=== PATIENT | female | born 1960 | race Caucasian/White ===

== ENCOUNTER 2017-03-12 11:19 | Inpatient (IN) | payer OTHER ==
[2017-03-12] VITALS (8 sets, daily range): BP systolic 131–158; BP diastolic 84–92; PULSE 96–109; TEMP 36.8–37.5; O2SAT 99–100; Ht 162.6 cm; Wt 84.0 kg
[~2017-03-12] VITALS: Ht 162.6 cm; Wt 84.0 kg
[~2017-03-12 11:19] MED LIST: ACP20 PO; AMIT75TA2 PO; ASPCH81X PO; ASTN; EPP3 IM; ERGO1CAP35 PO; FERR-24 PO; FEXO1TAB46 PO; HOME O2; IPRA1AER2 INH; LEVA1.25 INH; LEVO100T PO; MOME200A INH; MONT1TAB3 PO; MULTTAB58 PO; NPR375 PO; NSNN50 NAE; PRED20TA PO; RANI300T2 PO; ROPI1TAB PO; SUCR1TAB29 PO; TAPE100T2 PO; TOPI25TA99 PO; UMEC1INH INH; VRP40 PO; ZFRODT4 SL; [UNRECOGNIZED DRUG - CODE] PO
[2017-03-12] MEDS ORDERED: SODIUM CHLORIDE 0.9% 1000ML 1,000 ML IV STA (11:55)
[2017-03-12 12:14] LABS: ISTAT CREATININE 3.9 mg/dl (0.6-1.3); ISTAT HEMOGLOBIN 8.8 g/dl (12.0-16.0); ISTAT IONIZED CALCIUM 1.21 mmol/l (1.12-1.32)
[2017-03-12] MEDS ORDERED: OPTIRAY 320 IV PRN (12:15)
[2017-03-12 12:34] LABS: ALKALINE PHOSPHATASE 254 U/L (45-117); ALT/SGPT 43 U/L (12-78); AST/SGOT 40 U/L (15-37); BLOOD UREA NITROGEN 95 mg/dl (7-18); BUN/CREATININE RATIO 24.9 (10-20); CALCIUM 8.8 mg/dl (8.5-10.1); CARBON DIOXIDE 22 mmol/L (21-32); CHLORIDE 103 mmol/L (98-107); GLUCOSE 83 mg/dl (70-99); POTASSIUM 5.1 mmol/L (3.5-5.1); SODIUM 132 mmol/L (136-145)
[2017-03-12] MEDS ORDERED: HYDROmorphone INJ 0.5 MG/0.5 ML SYR IV STA (12:35)
[2017-03-12] MEDS ORDERED: METOCLOPRAMIDE HCL INJ 5 MG/ML 2 ML VIAL IV STA (12:35)
[2017-03-12 12:40] LABS: HEMATOCRIT 29.3 % (37-47); MEAN CELL VOLUME 88.3 fL (80-100); MEAN CORPUSCULAR HEMOGLOBIN 30.7 pg (25-34); MEAN CORPUSCULAR HGB CONC 34.8 g/dl (32-36); PLATELET COUNT 42 K/uL (130-400); RED BLOOD COUNT 3.32 M/uL (4.2-5.4); WHITE BLOOD COUNT 15.37 K/uL (4.8-10.8)
[2017-03-12 12:41] LABS: URINE APPEARANCE CLOUDY (CLEAR); URINE COLOR ORANGE; URINE EPITHELIAL CELL AUTO >30 /lpf (0-5); URINE NITRITE NEG (NEG); URINE SPECIFIC GRAVITY 1.025 (1.000-1.030); UROBILINOGEN NEG (NEG)
[2017-03-12 12:50] LABS: BASO % 0.3 %; BASO ABS # 0.04 K/uL (0-0.2); COMPLETE YES; EOS % 0.5 %; IG% 2.1 %; LYMPH % 12.8 %; LYMPH ABS # 1.97 K/uL (1.2-3.4); MONO % 10.8 %; NEUT % 73.5 %; PLT ESTIMATE DECREASED; POLYCHROMASIA 1+; SCHISTOCYTES 1+; TOXIC GRANULATION 2+
--- NOTE | 2017-03-12 12:55 | EMERGENCY ROOM VISIT NOTE ---
History Report prepared by Bernard: Gloria Proctor Under the Supervision of: Dr. Claudio Huff M.D. First contact with patient: 11:41 Chief Complaint: RECTAL BLEEDING Stated Complaint: GI ASSESSMENT Nursing Triage Summary: Pt with 2 week HX of dark rd stools, started with sharp mid abd pain 2 days ago , hx of anemia, Pt A/Ox3, lungs CTA. abd soft, positive BS, positve pulses History of Present Illness The patient is a 56 year old female who presents to the Emergency Room with complaints of intermittent rectal bleeding for the past 2 weeks. The patient has been having dark red stools and diarrhea for the past two weeks. Over the last 24 hours she developed sharp pain in her abdomen that is worse in the RLQ. She has a history of anemia. Source of History: patient Onset: 2 weeks ago Position: other (rectum) Quality: other (bleeding) Timing: intermittent Associated Symptoms: + abdominal pain, + diarrhea Review of Systems See HPI for pertinent positives & negatives. A total of 10 systems reviewed and were otherwise negative. Past Medical & Surgical Medical Problems: (1) Asthma (2) Celiac disease (3) Chronic back pain (4) Chronic Pancreatitis (5) Colitis (6) Depression (7) Depressive Disorder Nec (8) Fracture of foot (9) Gastroesophageal reflux disease (10) History of - pneumonia (11) Hypokalemia (12) Hyponatremia (13) Hypothyroidism (14) Lumbago (15) Lumbar Disc Displacement (16) Lumbosacral Neuritis Nos (17) Methicillin resistant Staphylococcus aureus infection (18) Moderate chronic obstructive pulmonary disease (19) Rectal hemorrhage (20) Syncope Family History No pertinent history stated. Social History Smoking Status: Never Smoker Alcohol Use: none Drug Use: none Marital Status: Occupation Status: other Current/Historical Medications Scheduled Amitriptyline Hcl (Elavil), 75 MG PO HS Aspirin (Aspirin Chewable), 81 MG PO HS Azelastine Hcl (Astelin Nasal [place]), 1 SPRAYS NA BID Epinephrine (Epipen *), 0.3 MG IM UD Ergocalciferol (Vitamin D Cap), 50,000 INTER.UNIT PO 2XWK Ferrous Sulfate (Fe Tabs), 325 MG PO QID Fexofenadine Hcl (Yuliya), 180 MG PO HS Hyoscyamine Sulfate (Hyoscyamine Sulfate Sr), 1 TAB PO Q6H Levothyroxine Sodium (Synthroid), 100 MCG PO QAM Mometasone Furoate (Nasal) (Nasonex), 2 SPRAYS JACKLYN BID Montelukast Sodium (Singulair), 10 MG PO HS Multiple Vitamin (Multivitamin), 1 TAB PO QAM Naproxen Tab (Naprosyn), 375 MG PO BID Rabeprazole Sodium (Aciphex *), 40 MG PO BID Ranitidine Hcl (Zantac), 300 MG PO BID Ropinirole Hydrochloride (Requip), 1.5 MG PO HS Sucralfate (Carafate), 1 GM PO QID Topiramate (Topamax ), 100 MG PO BID Umeclidinium [place] (Incruse Ellipta), 1 PUFF INH BID Verapamil (Calan), 40 MG PO BID [Home O2], 2 LITERS NA HS Scheduled PRN Ipratropium-Albuterol (Combivent Respimat), 1 PUFFS INH QID PRN for Shortness of Breath Levalbuterol Soln (Xopenex 1.25MG/3ML), 1.25 MG INH Q8 PRN for SOB/Wheezing Mometasone Furoate-Formoterol (Dulera 200/5 Mcg), 2 AER INH for BID Ondansetron (Zofran Odt *), 4 MG SL Q8H PRN for Nausea Prednisone (Prednisone), 20 MG PO UD PRN for ASTHMA RESCUE KIT Tapentadol Hcl (Nucynta), 100 MG PO Q6H PRN for Headache Allergies Coded Allergies: BEE STING (Verified Allergy, Severe, ANAPHYLAXIS, 03/12/17) Was allergic to earlier IV iron compounds but is currently receiving IV Iron at [facility] Cefaclor (Verified Allergy, Severe, CECLOR - SOB;RASH; UPSET STOMACH, ) Coconut (Verified Allergy, Severe, RASH; SOB, 03/12/17) Iron (Verified Allergy, Severe, SOB,TACHY WITH IV IRON, 03/12/17) Latex (Verified Allergy, Severe, SOB;RASH;BEET RED SKIN; ANAPHYLAXIS, ) Penicillins (Verified Allergy, Severe, SOB;RASH; TONGUE SWELLING; ANAPHYLAXIS, 03/12/17) Sulfa Drugs (Verified Allergy, Severe, SOB;RASH; ANAPHYLAXIS, 03/12/17) Tetracycline (Verified Allergy, Severe, SOB;RASH; N/V, 03/12/17) Lactose (Verified Allergy, Mild, RASH; BLOATING; DIARRHEA; VOMITING, ) Egg (Verified Allergy, Unknown, RASH, 03/12/17) Influenza Vaccine Live (Verified Allergy, Unknown, __, 03/12/17) Quinolones (Verified Allergy, Unknown, ALLERGY TO [place] ,CAN TAKE CIPRO OR LEVAQUIN W/O RXN, 03/12/17) Gluten (Verified Adverse Reaction, Unknown, CELIAC'S, 03/12/17) Physical Exam Vital Signs Date Time Temp Pulse Resp B/P (MAP) Pulse Ox O2 Delivery O2 Flow Rate FiO2 03/12/17 15:03 107 18 126/87 97 Room Air 03/12/17 13:47 100 18 128/87 99 Room Air 03/12/17 12:36 107 18 117/86 100 Room Air 03/12/17 12:05 107 03/12/17 12:03 97 Room Air 03/12/17 12:01 98 Room Air 03/12/17 11:43 37.0 111 18 129/94 100 Room Air Physical Exam GENERAL: Patient is a healthy-appearing well-nourished 56 year old female. HEAD: Normocephalic atraumatic EYES: Ocular movements intact pupils equal and react to light OROPHARYNX mucous membranes are moist no exudates present no erythema or edema present NECK: Supple no nuchal rigidity CHEST: Good equal expansion LUNGS: Clear and equal to auscultation CARDIAC: Normal S1 and S2 ABDOMEN: Soft, tenderness in RLQ, no guarding RECTAL: Heme positive BACK: No CVA tenderness EXTREMITIES: No pain upon palpation normal muscle strength in all groups no clubbing cyanosis or edema NEURO: Patient is following commands and answering questions appropriately. Alert and oriented x3 Cranial Nerves 2-12 grossly intact Medical Decision & Procedures ER Provider Diagnostic Interpretation: Radiology results as stated below per my review and radiologist interpretation: CT SCAN OF THE ABDOMEN AND PELVIS WITHOUT CONTRAST CLINICAL HISTORY: Right lower quadrant pain. Bloody stools. Anemia. Acute renal failure. COMPARISON STUDY: January 2008 TECHNIQUE: CT scan of the abdomen and pelvis was performed from the lung bases to the proximal femurs. Images are reviewed in the axial, sagittal, and coronal planes. IV contrast was not administered for this examination. A dose lowering technique was utilized adhering to the principles of ALARA. CT DOSE: 936.36 mGycm FINDINGS: Lower chest: There is mild dilatation of the ascending thoracic aorta which measures 38 mm. There is a small right pleural effusion. Liver: The unenhanced liver is normal in size, contour, and attenuation. There is no intrahepatic biliary ductal dilatation. Gallbladder: Surgically absent. The common bile duct measures 8 mm. Spleen: Mildly enlarged measuring 12.5 cm Pancreas: Unremarkable. Adrenal glands: There is a 19 mm left adrenal adenoma. Kidneys: No renal, ureteral, or bladder calculi are visualized. There is a dilated left-sided extrarenal pelvis. There is no ureteral dilatation. Bowel: There are no transition zones to indicate bowel obstruction. There is extensive colonic wall thickening most pronounced within the ascending colon. There is infiltration of the fat surrounding the ascending colon. There is mild dilatation of the appendix but this may be a secondary phenomenon. Peritoneum: There is a small amount of free pelvic fluid. No free intraperitoneal air is visualized. Vasculature: The abdominal aorta is normal in course and caliber. Adenopathy: There are prominent ileocolic lymph nodes, likely reactive. Pelvic viscera: The uterus appears surgically absent. Skeletal structures: There are endplate erosive changes at the L4-5 level, likely on a discogenic basis IMPRESSION: 1. Extensive right-sided colonic wall thickening with infiltration of the pericolonic fat. There are additional areas of less pronounced colonic wall thickening. The findings are indicative of a severe nonspecific colitis. 2. Mild left-sided hydronephrosis with a dilated left-sided extrarenal pelvis. There is no ureteral dilatation. 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 19 mm left adrenal adenoma 4. Prominent ileocolic lymph nodes likely reactive 5. Small right pleural effusion 6. No evidence of bowel obstruction Electronically signed by: Shaheed Orozco M.D. 03/12/2017 1:37 PM Dictated Date/Time: 03/12/2017 1:25 PM Laboratory Results 03/12/17 11:23 Red Blood Count 3.32, Mean Corpuscular Volume 88.3, Mean Corpuscular Hemoglobin 30.7, Mean Corpuscular Hemoglobin Concent 34.8, Mean Platelet Volume , Neutrophils (%) (Auto) 73.5, Lymphocytes (%) (Auto) 12.8, Monocytes (%) (Auto) 10.8, Eosinophils (%) (Auto) 0.5, Basophils (%) (Auto) 0.3, Neutrophils # (Auto ) 11.31, Lymphocytes # (Auto) 1.97, Monocytes # (Auto) 1.66, Eosinophils # (Auto ) 0.07, Basophils # (Auto) 0.04 03/12/17 11:23 Test 03/12/17 11:23 03/12/17 12:01 03/12/17 12:17 03/12/17 13:02 White Blood Count 15.37 K/uL (4.8-10.8) Red Blood Count 3.32 M/uL (4.2-5.4) Hemoglobin 10.2 g/dL (12.0-16.0) Hematocrit 29.3 % (37-47) Mean Corpuscular Volume 88.3 fL (80-100) Mean Corpuscular Hemoglobin 30.7 pg (25-34) Mean Corpuscular Hemoglobin Concent 34.8 g/dl (32-36) Platelet Count 42 K/uL (130-400) Mean Platelet Volume fL (7.4-10.4) Neutrophils (%) (Auto) 73.5 % Lymphocytes (%) (Auto) 12.8 % Monocytes (%) (Auto) 10.8 % Eosinophils (%) (Auto) 0.5 % Basophils (%) (Auto) 0.3 % Neutrophils # (Auto) 11.31 K/uL (1.4-6.5) Lymphocytes # (Auto) 1.97 K/uL (1.2-3.4) Monocytes # (Auto) 1.66 K/uL (0.11-0.59) Eosinophils # (Auto) 0.07 K/uL (0-0.5) Basophils # (Auto) 0.04 K/uL (0-0.2) RDW Standard Deviation 53.1 fL (36.4-46.3) RDW Coefficient of Variation 16.5 % (11.5-14.5) Immature Granulocyte % (Auto) 2.1 % Immature Granulocyte # (Auto) 0.32 K/uL (0.00-0.02) Nucleated RBC Absolute Count (auto) 0.27 K/uL (0-0) Nucleated Red Blood Cells % 1.7 % Toxic Granulation 2+ Platelet Estimate DECREASED Polychromasia 1+ Schistocytes 1+ Est Creatinine Clear Calc Drug Dose 16.7 ml/min Estimated GFR () 14.6 Estimated GFR (Non- 12.6 BUN/Creatinine Ratio 24.9 (10-20) Calcium Level 8.8 mg/dl (8.5-10.1) Total Bilirubin 0.7 mg/dl (0.2-1) Direct Bilirubin mg/dl (0-0.2) Aspartate Amino Transf (AST/SGOT) 40 U/L (15-37) Alanine Aminotransferase (ALT/SGPT) 43 U/L (12-78) Alkaline Phosphatase 254 U/L (45-117) Total Protein 5.7 gm/dl (6.4-8.2) Albumin 1.5 gm/dl (3.4-5.0) Lipase 341 U/L (73-393) Chemistry Specimen Hemolysis Bedside Hemoglobin 8.8 g/dl (12.0-16.0) Bedside Hematocrit 26 % (37-47) Bedside Sodium 132 mEq/L (135-144) Bedside Potassium 4.9 mEq/L (3.3-5.0) Bedside Chloride 104 mEq/L (101-112) Bedside Total CO2 19 mEq/l (24-31) Anion Gap 15.0 mmol/L (16-25) Bedside Blood Urea Nitrogen 95 mg/dl (7-18) Bedside Creatinine 3.9 mg/dl (0.6-1.3) Bedside Glucose (other) 90 mg/dl (70-99) Bedside Ionized Calcium (Helder) 1.21 mmol/l (1.12-1.32) Urine Color ORANGE Urine Appearance CLOUDY (CLEAR) Urine pH 5.0 (4.5-7.5) Urine Specific [place] 1.025 (1.000-1.030) Urine Protein 3+ (NEG) Urine Glucose (UA) NEG (NEG) Urine Ketones NEG (NEG) Urine Occult Blood 1+ (NEG) Urine Nitrite NEG (NEG) Urine Bilirubin NEG (NEG) Urine Urobilinogen NEG (NEG) Urine Leukocyte Esterase NEG (NEG) Urine WBC (Auto) 1-5 /hpf (0-5) Urine RBC (Auto) 5-10 /hpf (0-4) Urine Hyaline Casts (Auto) 5-10 /lpf (0-5) Urine Epithelial Cells (Auto) >30 /lpf (0-5) Urine Bacteria (Auto) NEG (NEG) Urine Pathogenic Casts See comments /lpf (0) Prothrombin Time 14.1 SECONDS (9.0-12.0) Prothromb Time International Ratio 1.3 (0.9-1.1) Activated Partial Thromboplast Time 27.8 SECONDS (21.0-31.0) Partial Thromboplastin Ratio 1.1 Test 03/12/17 15:10 Labs reviewed by ED physician. Medications Administered Medications (Trade) Dose Ordered Sig/Zo Route Start Time Stop Time Status Last Admin Dose Admin Sodium Chloride 1,000 ml @ 999 mls/hr Q1H1M STAT IV 03/12/17 11:55 03/12/17 12:55 DC 03/12/17 12:01 999 MLS/HR Hydromorphone HCl (Dilaudid Inj) 0.5 mg NOW STAT IV 03/12/17 12:35 03/12/17 12:36 DC 03/12/17 12:56 0.5 MG Metoclopramide HCl (Reglan Inj) 10 mg NOW STAT IV 03/12/17 12:35 03/12/17 12:36 DC 03/12/17 12:55 10 MG ECG Indication: other Rate (beats per minute): 106 Rhythm: sinus tachycardia Findings: no acute ischemic change, no ectopy ED Course 1141: Past medical records reviewed. The patient was evaluated in room C7. A complete history and physical examination was performed. 1155: NSS 1000 ml @ 999 mls/hr IV 1235: Reglan 10 mg IV, Dilaudid 0.5 mg IV 1346: I spoke with Dr. Rodrigues. We discussed the patient's case. [facility] 1351: I reassessed the patient at this time. She is feeling better and resting comfortably. I discussed the results and treatment plan with the patient. I answered all pertaining questions that she had. She expressed understanding and verbalized agreement. Medical Decision Differential diagnosis: Etiologies such as diverticulosis, AVM, coagulopathy, colitis, inflammatory bowel disease, malignancy, Denisse-Smith tear, esophagitis, peptic ulcer disease , variceal bleed, gastritis, epistaxis, fissure, hemorrhoids, as well as others were entertained. This is a 56-year-old female who presents emergency department complaining of complaining of abdominal pain and diarrhea. The patient has a colitis on her CAT scan has an elevation in her white blood count cell count and is also in acute renal failure. Based on these findings I did discuss the case with the hospitalist service who agreed to admit the patient. Patient was given Dilaudid in the emergency department. Repeat examination revealed improvement patient's symptoms Medication Reconcilliation Current Medication List: was personally reviewed by me Blood Pressure Screening Patient's blood pressure: Normal blood pressure Consults Time Called: 1341 Consulting Physician: Dr. Rodrigues Returned Call: [address] Rodrigues. We discussed the patient's case. The patient will be evaluated by the [facility] Group for further management. Impression Primary Impression: Acute renal failure Additional Impression: Colitis Scribe Attestation The scribe's documentation has been prepared under my direction and personally reviewed by me in its entirety. I confirm that the note above accurately reflects all work, treatment, procedures, and medical decision making performed by me. Departure Information Dispostion Being Evaluated By Hospitalist Referrals Christiano Muñoz M.D. (PCP) Patient Instructions My [facility] Problem Qualifiers Primary Impression: Acute renal failure Acute renal failure type: unspecified Qualified Codes: N17.9 - Acute kidney failure, unspecified
[2017-03-12 13:10] LABS: MANUAL MICROSCOPIC REQUIRED? NO; REVIEW REQ? YES; URINE BILIRUBIN NEG (NEG)
[2017-03-12 13:34] LABS: INR 1.3 (0.9-1.1); PARTIAL THROMBOPLASTIN RATIO 1.1; PROTHROMBIN TIME (PATIENT) 14.1 SECONDS (9.0-12.0)
--- NOTE | 2017-03-12 13:39 | DIAGNOSTIC IMAGING REPORT ---
CT SCAN OF THE ABDOMEN AND PELVIS WITHOUT CONTRAST CLINICAL HISTORY: Right lower quadrant pain. Bloody stools. Anemia. Acute renal failure. COMPARISON STUDY: January 2008 TECHNIQUE: CT scan of the abdomen and pelvis was performed from the lung bases to the proximal femurs. Images are reviewed in the axial, sagittal, and coronal planes. IV contrast was not administered for this examination. A dose lowering technique was utilized adhering to the principles of ALARA. CT DOSE: 936.36 mGycm FINDINGS: Lower chest: There is mild dilatation of the ascending thoracic aorta which measures 38 mm. There is a small right pleural effusion. Liver: The unenhanced liver is normal in size, contour, and attenuation. There is no intrahepatic biliary ductal dilatation. Gallbladder: Surgically absent. The common bile duct measures 8 mm. Spleen: Mildly enlarged measuring 12.5 cm Pancreas: Unremarkable. Adrenal glands: There is a 19 mm left adrenal adenoma. Kidneys: No renal, ureteral, or bladder calculi are visualized. There is a dilated left-sided extrarenal pelvis. There is no ureteral dilatation. Bowel: There are no transition zones to indicate bowel obstruction. There is extensive colonic wall thickening most pronounced within the ascending colon. There is infiltration of the fat surrounding the ascending colon. There is mild dilatation of the appendix but this may be a secondary phenomenon. Peritoneum: There is a small amount of free pelvic fluid. No free intraperitoneal air is visualized. Vasculature: The abdominal aorta is normal in course and caliber. Adenopathy: There are prominent ileocolic lymph nodes, likely reactive. Pelvic viscera: The uterus appears surgically absent. Skeletal structures: There are endplate erosive changes at the L4-5 level, likely on a discogenic basis IMPRESSION: 1. Extensive right-sided colonic wall thickening with infiltration of the pericolonic fat. There are additional areas of less pronounced colonic wall thickening. The findings are indicative of a severe nonspecific colitis. 2. Mild left-sided hydronephrosis with a dilated left-sided extrarenal pelvis. There is no ureteral dilatation. 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 19 mm left adrenal adenoma 4. Prominent ileocolic lymph nodes likely reactive 5. Small right pleural effusion 6. No evidence of bowel obstruction Electronically signed by: Shaheed Orozco M.D. 03/12/2017 1:37 PM Dictated Date/Time: 03/12/2017 1:25 PM
[2017-03-12] MEDS ORDERED: CONSULT PHARMACY STA ×2 (14:32→15:00)
[2017-03-12] MEDS ORDERED: XPNINS125 INH (15:15)
[2017-03-12] MEDS ORDERED: CHOL1000 PO (15:15)
--- NOTE | 2017-03-12 15:21 | Gastrointestinal Consultation ---
Gastrointestinal Consultation Date of Consultation: Mar 12, 2017 Attending Physician: Valery Rodrigues Consulting Physician: Nathanael Garrett Reason for Consultation: GI bleed/colitis History of Present Illness Patient is a 56 year old female w PMHx of Fe deficiency anemia, IBS, celiac disease, PAT, GERD, pancreatitis, CYNTHIA, hypothyroidism, migraines who presented to ED w c/o blood BMs x 2 weeks. Has low grade fever, nausea, no vomiting. Last night she had nosebleed and started coughing up blood clots w phlegm, none now. Mother had diarrhea as well but no blood in stools and now symptoms has resolved. She denies travel, recent antibiotics. Does have remote hx of Cdiff in the past. Upon evaluation, she was noted to be anemic w Hgb around 10, most recent outpt CBC in 04/2016 Hgb 15. Pt reports been getting blood and iron infusions [id number], managed by Dr. Clements (heme/onc). WBC 15K, Cr up to 3.9, baseline around 1. CT abd/pelvis showed extensive colon wall thickening and infiltration most notably on ascending colon area. Also has L sided hydronephrosis ? chronic UPJ obstruction. She had hx of colonoscopy in 2010 w/o optimal exam due to poor prep. She denies any hx of IBD or colon ca in family. Past Medical/Surgical History Medical Problems: (1) Acute renal failure Status: Acute (2) Chronic Pancreatitis Status: Chronic (3) Depressive Disorder Nec Status: Chronic (4) Lumbago Status: Chronic (5) Lumbar Disc Displacement Status: Chronic (6) Lumbosacral Neuritis Nos Status: Chronic Past Medical History: See above Past Surgical History: Total hysterectomy Cholecystectomy Knee arthroscopy Nasal surgery Endometriosis excision Social History Smoking Status: Never Smoker Alcohol Use: none Drug Use: none Marital Status: Occupation Status: other Allergies Coded Allergies: BEE STING (Verified Allergy, Severe, ANAPHYLAXIS, 03/12/17) Was allergic to earlier IV iron compounds but is currently receiving IV Iron at [facility] Cefaclor (Verified Allergy, Severe, CECLOR - SOB;RASH; UPSET STOMACH, ) Coconut (Verified Allergy, Severe, RASH; SOB, 03/12/17) Iron (Verified Allergy, Severe, SOB,TACHY WITH IV IRON, 03/12/17) Latex (Verified Allergy, Severe, SOB;RASH;BEET RED SKIN; ANAPHYLAXIS, ) Penicillins (Verified Allergy, Severe, SOB;RASH; TONGUE SWELLING; ANAPHYLAXIS, 03/12/17) Sulfa Drugs (Verified Allergy, Severe, SOB;RASH; ANAPHYLAXIS, 03/12/17) Tetracycline (Verified Allergy, Severe, SOB;RASH; N/V, 03/12/17) Lactose (Verified Allergy, Mild, RASH; BLOATING; DIARRHEA; VOMITING, ) Egg (Verified Allergy, Unknown, RASH, 03/12/17) Influenza Vaccine Live (Verified Allergy, Unknown, __, 03/12/17) Quinolones (Verified Allergy, Unknown, ALLERGY TO AVELOX ,CAN TAKE CIPRO OR LEVAQUIN W/O RXN, 03/12/17) Gluten (Verified Adverse Reaction, Unknown, CELIAC'S, 03/12/17) Current Medications Home Meds and Scripts Medications Dose Route/Sig Max Daily Dose Days Date Category Dose Instructions Incruse Ellipta (Umeclidinium [place]) 62.5 Mcg/Inh Inh 1 Puff INH BID 11/07/15 Reported Zantac (Ranitidine HCl) 300 Mg Tab 300 Mg PO BID 11/07/15 Reported Naprosyn (Naproxen) 375 Mg Tab 375 Mg PO BID 11/07/15 Reported Hyoscyamine Sulfate Sr (Hyoscyamine Sulfate) 0.375 Mg Tab 1 Tab PO Q6H 11/07/15 Reported Calan (Verapamil HCl) 40 Mg Tab 40 Mg PO BID 11/07/15 Reported Topamax (Topiramate) 25 Mg Tab 100 Mg PO BID 11/07/15 Reported Carafate (Sucralfate) 1 Gm Tab 1 Gm PO QID 11/07/15 Reported Astelin Nasal [place] (Azelastine Hcl) 200 Sprays/30 Ml [place] 1 Sprays NA BID 04/27/14 Reported Prednisone 20 Mg Tab 20 Mg PO UD PRN 04/27/14 Reported TAKE 2 TABLETS DAILY WITH FOOD FOR 5 DAYS PREDNISONE BURST FOR ASTHMA RESCUE KIT. Dulera 200/5 Mcg (Mometasone Furoate-Formoterol) 1 Aer Aer 2 Aer INH PRN 04/27/14 Reported Nucynta (Tapentadol Hcl) 100 Mg Tab 100 Mg PO Q6H PRN 04/27/14 Reported Elavil (Amitriptyline Hcl) 75 Mg Tab 75 Mg PO HS 04/27/14 Reported Synthroid (Levothyroxine Sodium) 100 Mcg Tab 100 Mcg PO QAM 04/27/14 Reported Combivent Respimat (Ipratropium-Albuterol) 1 Aer Aer 1 Puffs INH QID PRN 08/31/13 Reported Nasonex (Mometasone Furoate (Nasal)) 50 Mcg/ Spr 2 Sprays JACKLYN BID 07/06/12 Reported Aspirin Chewable (Aspirin) 81 Mg Chew 81 Mg PO HS 04/10/12 Reported Fe Tabs (Ferrous Sulfate) 325 Mg Tab 325 Mg PO QID 04/10/12 Reported Yuliya (Fexofenadine Hcl) 180 Mg Tab 180 Mg PO HS 04/10/12 Reported Singulair (Montelukast Sodium) 10 Mg Tab 10 Mg PO HS 04/10/12 Reported Multivitamin (Multiple Vitamin) 1 Tab Tab 1 Tab PO QAM 04/10/12 Reported Requip (Ropinirole Hydrochloride) 1 Mg Tab 1.5 Mg PO HS 04/10/12 Reported Vitamin D Cap (Ergocalciferol) 50,000 Interunit Cap 50,000 Inter.unit PO 2XWK 02/08/12 Reported mondays/THURSDAYS Aciphex * (Rabeprazole Sodium) 20 Mg Tabcr 40 Mg PO BID 11/06/11 Reported Xopenex 1.25MG/3ML (Levalbuterol) Nebu 1.25 Mg INH Q8 PRN 12/31/10 Reported [Home O2] 2 Liters NA HS 12/31/10 Reported WITH CPAP @ HS Zofran Odt * (Ondansetron HCl) 4 Mg Soltab 4 Mg SL Q8H PRN 02/21/10 Reported NAUSEA Epipen * (Epinephrine) 0.3 Mg Inj 0.3 Mg IM UD 02/06/10 Reported Review of Systems Constitutional: + fever (low grade), No chills Respiratory: No cough, No shortness of breath Cardiac: No chest pain Abdomen: + pain, + nausea, + diarrhea, + GI bleeding, No vomiting Physical Exam Date Time Temp Pulse Resp B/P (MAP) Pulse Ox O2 Delivery O2 Flow Rate FiO2 03/12/17 15:03 107 18 126/87 97 Room Air 03/12/17 13:47 100 18 128/87 99 Room Air 03/12/17 12:36 107 18 117/86 100 Room Air 03/12/17 12:05 107 03/12/17 12:03 97 Room Air 03/12/17 12:01 98 Room Air 03/12/17 11:43 37.0 111 18 129/94 100 Room Air General Appearance: WD/WN, no apparent distress, + obese Eyes: normal inspection, PERRL, EOMI Neck: supple, no JVD, trachea midline Cardiovascular: regular rate, rhythm, no gallop, no murmur Abdomen: normal bowel sounds, soft, + tenderness (Along R abd area ) Extremities: normal inspection, no pedal edema, no calf tenderness Neurologic/Psych: alert, normal mood/affect, oriented x 3 Skin: normal color, no jaundice, no rash Laboratory Results Last 24 Hours Test 03/12/17 11:23 03/12/17 12:01 03/12/17 12:17 03/12/17 13:02 White Blood Count 15.37 K/uL Red Blood Count 3.32 M/uL Hemoglobin 10.2 g/dL Hematocrit 29.3 % Mean Corpuscular Volume 88.3 fL Mean Corpuscular Hemoglobin 30.7 pg Mean Corpuscular Hemoglobin Concent 34.8 g/dl Platelet Count 42 K/uL Mean Platelet Volume fL Neutrophils (%) (Auto) 73.5 % Lymphocytes (%) (Auto) 12.8 % Monocytes (%) (Auto) 10.8 % Eosinophils (%) (Auto) 0.5 % Basophils (%) (Auto) 0.3 % Neutrophils # (Auto) 11.31 K/uL Lymphocytes # (Auto) 1.97 K/uL Monocytes # (Auto) 1.66 K/uL Eosinophils # (Auto) 0.07 K/uL Basophils # (Auto) 0.04 K/uL RDW Standard Deviation 53.1 fL RDW Coefficient of Variation 16.5 % Immature Granulocyte % (Auto) 2.1 % Immature Granulocyte # (Auto) 0.32 K/uL Nucleated RBC Absolute Count (auto) 0.27 K/uL Nucleated Red Blood Cells % 1.7 % Toxic Granulation 2+ Platelet Estimate DECREASED Polychromasia 1+ Schistocytes 1+ Sodium Level 132 mmol/L Potassium Level 5.1 mmol/L Chloride Level 103 mmol/L Carbon Dioxide Level 22 mmol/L Anion Gap 7.0 mmol/L 15.0 mmol/L Blood Urea Nitrogen 95 mg/dl Creatinine 3.80 mg/dl Est Creatinine Clear Calc Drug Dose 16.7 ml/min Estimated GFR () 14.6 Estimated GFR (Non- 12.6 BUN/Creatinine Ratio 24.9 Random Glucose 83 mg/dl Calcium Level 8.8 mg/dl Total Bilirubin 0.7 mg/dl Direct Bilirubin mg/dl Aspartate Amino Transf (AST/SGOT) 40 U/L Alanine Aminotransferase (ALT/SGPT) 43 U/L Alkaline Phosphatase 254 U/L Total Protein 5.7 gm/dl Albumin 1.5 gm/dl Lipase 341 U/L Chemistry Specimen Hemolysis Bedside Hemoglobin 8.8 g/dl Bedside Hematocrit 26 % Bedside Sodium 132 mEq/L Bedside Potassium 4.9 mEq/L Bedside Chloride 104 mEq/L Bedside Total CO2 19 mEq/l Bedside Blood Urea Nitrogen 95 mg/dl Bedside Creatinine 3.9 mg/dl Bedside Glucose (other) 90 mg/dl Bedside Ionized Calcium (Helder) 1.21 mmol/l Urine Color ORANGE Urine Appearance CLOUDY Urine pH 5.0 Urine Specific [place] 1.025 Urine Protein 3+ Urine Glucose (UA) NEG Urine Ketones NEG Urine Occult Blood 1+ Urine Nitrite NEG Urine Bilirubin NEG Urine Urobilinogen NEG Urine Leukocyte Esterase NEG Urine WBC (Auto) 1-5 /hpf Urine RBC (Auto) 5-10 /hpf Urine Hyaline Casts (Auto) 5-10 /lpf Urine Epithelial Cells (Auto) >30 /lpf Urine Bacteria (Auto) NEG Urine Pathogenic Casts See comments /lpf Prothrombin Time 14.1 SECONDS Prothromb Time International Ratio 1.3 Activated Partial Thromboplast Time 27.8 SECONDS Partial Thromboplastin Ratio 1.1 Test 03/12/17 14:36 Impression Patient is a 56 year old female who presented to ED w c/o bloody BMs x 2 weeks, ARF, anemia (hx of iron deficiency anemia and celiacs disease); CT showed extensive colonic wall thickening especially at ascending colon area suspicious for non specific colitis but no signs of bowel obstructions. DDx: infectious, ischemic colitis, IBD. Plan - Monitor H/H and transfuse prn - IVF resuscitation, work up renal failure - Obtain peripheral blood smear to r/o HUS - Check stool cx and Cdiff - No need for IV protonix, ok for Protonix 40mg PO daily - Ok for soft, bland diet as long as having n/v, increased abd pain. - Eventual colonoscopy in 4-6 weeks' time to be planned upon her DC I have seen, examined, and agree with the plan as outlined by TERRIE Ames. -Hematochezia with pain -CT with colitis, concern for ischemic vs infectious, specifically possible HUS complicated by E coli given renal failure Stool studies Supportive care Peripheral Blood smear to look for schitozytes Call with any clinical change of status
[2017-03-12] MEDS ORDERED: VANCOMYCIN CONSULT ACTIVE PRN (16:00)
[2017-03-12] MEDS ORDERED: VANCOMYCIN INJ 1,750 MG in SODIUM CHLORIDE 0.9% 500ML 500 ML IV ONE (16:00)
[2017-03-12] MEDS ORDERED: AZTREONAM CONSULT ACTIVE PRN ×2 (16:00)
[2017-03-12] MEDS ORDERED: AZTREONAM 2000 MG in DEXTROSE 5% 100 ML IV ONE (16:00)
[2017-03-12] MEDS: SODIUM CHLORIDE 0.9% 1000ML 1,000 ML IV SCH (17:08)
[2017-03-12] MEDS: SUCRALFATE 1 GM TAB PO SCH ×2 (17:09→21:53)
[2017-03-12] MEDS: FERROUS SULFATE 325 MG TAB PO SCH ×2 (17:09→21:54)
--- NOTE | 2017-03-12 17:18 | History and Physical ---
History & Physical Date & Time of Service: Mar 12, 2017 ~ 14:00 Chief Complaint: Diarrhea Primary Care Physician: Christiano Muñoz M.D. History of Present Illness 56 year old female who presents to the ER with diarrhea. She reports her symptoms have been present for two weeks. She reports diarrhea has been bloody/ dark red. She reports multiple episodes per day. She has had a few episodes of vomiting. She denies hematemesis or coffee ground emesis. Last night she reports a nose bleed which was dripping into the back of her throat which made her cough up some of the blood and phlegm. She developed right sided abdominal pain yesterday. She reports she mostly has only taken in liquids for the past couple of weeks. She denies chest pain and shortness of breath. She reports mild lightheadedness and dizziness but denies any syncopal events. She reports low grade fevers. Last week she noticed some hematuria which has since resolved. In the ED, patient underwent CT abd/pelvis that is showing extensive right sided colitis. WBC 15K, creat 3.8 (baseline ~ 1), platelets 42 (normal baseline), mildly tachycardic in the low 100s. IVF, IV dilaudid, and IV Reglan. Past Medical/Surgical History Medical Problems: (1) Asthma, severe persistent Status: Chronic (2) Celiac disease Status: Chronic (3) Chronic Pancreatitis Status: Chronic (4) Depressive Disorder Nec Status: Chronic (5) Dyslipidemia Status: Chronic (6) Gastroparesis Status: Chronic (7) GERD (gastroesophageal reflux disease) Status: Chronic (8) Hypothyroidism Status: Chronic (9) IBS (irritable bowel syndrome) Status: Chronic (10) CHARLES (iron deficiency anemia) Status: Chronic (11) Lumbago Status: Chronic (12) Lumbar Disc Displacement Status: Chronic (13) Lumbosacral Neuritis Nos Status: Chronic (14) MRSA (methicillin resistant Staphylococcus aureus) Status: Chronic (15) NSVT (nonsustained ventricular tachycardia) Status: Chronic (16) CYNTHIA (obstructive sleep apnea) Status: Chronic Surgical Problems: (1) History of arthroscopic knee surgery Status: Chronic (2) Hx of cardiac cath Permanent Comment: 2009 - normal coronaries Status: Chronic (3) Hx of cholecystectomy Status: Chronic (4) S/P nasal surgery Status: Chronic (5) S/P surgery on nasal septum Status: Chronic (6) S/P GLENNY-BSO Status: Chronic Family History FH: heart disease FATHER Stroke MOTHER Social History Smoking Status: Never Smoker Alcohol Use: none Immunizations History of Tetanus Vaccine?: Yes Tetanus Immunization Date: Dec 21, 2016 History of Pneumococcal: Yes Pneumococcal Date: Jan 02, 2005 Multi-Drug Resistant Organisms History of MDRO: Yes Type of MDRO: MRSA Allergies Coded Allergies: BEE STING (Verified Allergy, Severe, ANAPHYLAXIS, 03/12/17) Was allergic to earlier IV iron compounds but is currently receiving IV Iron [facility] Cefaclor (Verified Allergy, Severe, CECLOR - SOB;RASH; UPSET STOMACH, ) Coconut (Verified Allergy, Severe, RASH; SOB, 03/12/17) Iron (Verified Allergy, Severe, SOB,TACHY WITH IV IRON, 03/12/17) Latex (Verified Allergy, Severe, SOB;RASH;BEET RED SKIN; ANAPHYLAXIS, ) Penicillins (Verified Allergy, Severe, SOB;RASH; TONGUE SWELLING; ANAPHYLAXIS, 03/12/17) Sulfa Drugs (Verified Allergy, Severe, SOB;RASH; ANAPHYLAXIS, 03/12/17) Tetracycline (Verified Allergy, Severe, SOB;RASH; N/V, 03/12/17) Lactose (Verified Allergy, Mild, RASH; BLOATING; DIARRHEA; VOMITING, ) Egg (Verified Allergy, Unknown, RASH, 03/12/17) Influenza Vaccine Live (Verified Allergy, Unknown, __, 03/12/17) Quinolones (Verified Allergy, Unknown, ALLERGY TO AVELOX ,CAN TAKE CIPRO OR LEVAQUIN W/O RXN, 03/12/17) Gluten (Verified Adverse Reaction, Unknown, CELIAC'S, 03/12/17) Home Medications Scheduled Amitriptyline Hcl (Elavil), 75 MG PO HS Aspirin (Aspirin Chewable), 81 MG PO HS Azelastine Hcl (Astelin Nasal [place]), 1 SPRAYS NA BID Cholecalciferol (Vitamin D3), 2 TAB PO DAILY Epinephrine (Epipen *), 0.3 MG IM UD Ferrous Sulfate (Fe Tabs), 325 MG PO QID Fexofenadine Hcl (Yuliya), 180 MG PO HS Levothyroxine Sodium (Synthroid), 100 MCG PO QAM Mometasone Furoate (Nasal) (Nasonex), 2 SPRAYS JACKLYN BID Mometasone Furoate-Formoterol (Dulera 200/5 Mcg), 2 AER INH BID Montelukast Sodium (Singulair), 10 MG PO HS Multiple Vitamin (Multivitamin), 1 TAB PO QAM Rabeprazole Sodium (Aciphex *), 40 MG PO BID Ranitidine Hcl (Zantac), 300 MG PO BID Ropinirole Hydrochloride (Requip), 1.5 MG PO HS Sucralfate (Carafate), 1 GM PO QID Topiramate (Topamax ), 100 MG PO BID Umeclidinium [place] (Incruse Ellipta), 1 PUFF INH DAILY Verapamil (Calan), 40 MG PO BID [Home O2], 2 LITERS NA HS Scheduled PRN Hyoscyamine Sulfate (Hyoscyamine Sulfate Sr), 1 TAB PO Q6H PRN for abdominal pain Ipratropium-Albuterol (Combivent Respimat), 1 PUFFS INH QID PRN for Shortness of Breath Levalbuterol (Levalbuterol HCl), 1 INHA INH TID PRN for SOB/Wheezing Ondansetron (Zofran Odt *), 4 MG SL Q8H PRN for Nausea Prednisone (Prednisone), 20 MG PO UD PRN for ASTHMA RESCUE KIT Tapentadol Hcl (Nucynta), 100 MG PO Q6H PRN for Headache Review of Systems ROS per HPI, all other systems reviewed and negative Physical Exam Vital Signs Date Time Temp Pulse Resp B/P (MAP) Pulse Ox O2 Delivery O2 Flow Rate FiO2 03/12/17 15:45 36.8 109 18 148/90 99 Room Air 03/12/17 15:03 107 18 126/87 97 Room Air 03/12/17 13:47 100 18 128/87 99 Room Air 03/12/17 12:36 107 18 117/86 100 Room Air 03/12/17 12:05 107 03/12/17 12:03 97 Room Air 03/12/17 12:01 98 Room Air 03/12/17 11:43 37.0 111 18 129/94 100 Room Air General Appearance: no apparent distress Head: normocephalic, atraumatic Eyes: normal inspection, sclerae normal ENT: hearing grossly normal Neck: supple, no JVD Respiratory/Chest: lungs clear, normal breath sounds, no respiratory distress Cardiovascular: no edema, + tachycardia (HR in the low 100s, rhythm regular) Abdomen/GI: normal bowel sounds, soft, + tenderness (left abdomen) Extremities/Musculoskelatal: normal inspection, no calf tenderness Neurologic/Psych: no motor/sensory deficits, alert, normal mood/affect, oriented x 3 Skin: normal color, warm/dry Diagnostics Laboratory Results Results Past 24 Hours Test 03/12/17 11:23 03/12/17 12:01 03/12/17 12:17 03/12/17 13:02 Range/Units White Blood Count 15.37 4.8-10.8 K/uL Red Blood Count 3.32 4.2-5.4 M/uL Hemoglobin 10.2 12.0-16.0 g/dL Hematocrit 29.3 37-47 % Mean Corpuscular Volume 88.3 80-100 fL Mean Corpuscular Hemoglobin 30.7 25-34 pg Mean Corpuscular Hemoglobin Concent 34.8 32-36 g/dl Platelet Count 42 130-400 K/uL Mean Platelet Volume 7.4-10.4 fL Neutrophils (%) (Auto) 73.5 % Lymphocytes (%) (Auto) 12.8 % Monocytes (%) (Auto) 10.8 % Eosinophils (%) (Auto) 0.5 % Basophils (%) (Auto) 0.3 % Neutrophils # (Auto) 11.31 1.4-6.5 K/uL Lymphocytes # (Auto) 1.97 1.2-3.4 K/uL Monocytes # (Auto) 1.66 0.11-0.59 K/uL Eosinophils # (Auto) 0.07 0-0.5 K/uL Basophils # (Auto) 0.04 0-0.2 K/uL RDW Standard Deviation 53.1 36.4-46.3 fL RDW Coefficient of Variation 16.5 11.5-14.5 % Immature Granulocyte % (Auto) 2.1 % Immature Granulocyte # (Auto) 0.32 0.00-0.02 K/uL Nucleated RBC Absolute Count (auto) 0.27 0-0 K/uL Nucleated Red Blood Cells % 1.7 % Toxic Granulation 2+ Platelet Estimate DECREASED Polychromasia 1+ Schistocytes 1+ Sodium Level 132 136-145 mmol/L Potassium Level 5.1 3.5-5.1 mmol/L Chloride Level 103 98-107 mmol/L Carbon Dioxide Level 22 21-32 mmol/L Anion Gap 7.0 15.0 16-25 mmol/L Blood Urea Nitrogen 95 7-18 mg/dl Creatinine 3.80 0.60-1.20 mg/dl Est Creatinine Clear Calc Drug Dose 16.7 ml/min Estimated GFR () 14.6 Estimated GFR (Non- 12.6 BUN/Creatinine Ratio 24.9 10-20 Random Glucose 83 70-99 mg/dl Calcium Level 8.8 8.5-10.1 mg/dl Total Bilirubin 0.7 0.2-1 mg/dl Direct Bilirubin 0-0.2 mg/dl Aspartate Amino Transf (AST/SGOT) 40 15-37 U/L Alanine Aminotransferase (ALT/SGPT) 43 12-78 U/L Alkaline Phosphatase 254 45-117 U/L Total Protein 5.7 6.4-8.2 gm/dl Albumin 1.5 3.4-5.0 gm/dl Lipase 341 73-393 U/L Chemistry Specimen Hemolysis Bedside Hemoglobin 8.8 12.0-16.0 g/dl Bedside Hematocrit 26 37-47 % Bedside Sodium 132 135-144 mEq/L Bedside Potassium 4.9 3.3-5.0 mEq/L Bedside Chloride 104 101-112 mEq/L Bedside Total CO2 19 24-31 mEq/l Bedside Blood Urea Nitrogen 95 7-18 mg/dl Bedside Creatinine 3.9 0.6-1.3 mg/dl Bedside Glucose (other) 90 70-99 mg/dl Bedside Ionized Calcium (Helder) 1.21 1.12-1.32 mmol/l Urine Color ORANGE Urine Appearance CLOUDY CLEAR Urine pH 5.0 4.5-7.5 Urine Specific [place] 1.025 1.000-1.030 Urine Protein 3+ NEG Urine Glucose (UA) NEG NEG Urine Ketones NEG NEG Urine Occult Blood 1+ NEG Urine Nitrite NEG NEG Urine Bilirubin NEG NEG Urine Urobilinogen NEG NEG Urine Leukocyte Esterase NEG NEG Urine WBC (Auto) 1-5 0-5 /hpf Urine RBC (Auto) 5-10 0-4 /hpf Urine Hyaline Casts (Auto) 5-10 0-5 /lpf Urine Epithelial Cells (Auto) >30 0-5 /lpf Urine Bacteria (Auto) NEG NEG Urine Pathogenic Casts See comments 0 /lpf Prothrombin Time 14.1 9.0-12.0 SECONDS Prothromb Time International Ratio 1.3 0.9-1.1 Activated Partial Thromboplast Time 27.8 21.0-31.0 SECONDS Partial Thromboplastin Ratio 1.1 Test 03/12/17 15:10 03/12/17 16:45 Range/Units Lactic Acid Level 0.8 0.4-2.0 mmol/L Microbiology Results 03/12/17 Blood Culture, Received Pending 03/12/17 Blood Culture, Received Pending Diagnostic Radiology CT ABD/PELVIS IMPRESSION: 1. Extensive right-sided colonic wall thickening with infiltration of the pericolonic fat. There are additional areas of less pronounced colonic wall thickening. The findings are indicative of a severe nonspecific colitis. 2. Mild left-sided hydronephrosis with a dilated left-sided extrarenal pelvis. There is no ureteral dilatation. 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 19 mm left adrenal adenoma 4. Prominent ileocolic lymph nodes likely reactive 5. Small right pleural effusion 6. No evidence of bowel obstruction Impression Assessment and Plan SEPSIS AND LOWER GI BLEED DUE TO COLITIS - admit to tele - patient presenting with 2 weeks of bloody diarrhea; in the ED, found to have severe right sided colitis on CT - meets sepsis criteria: WBC 15K, tachycardia; BP stable, lactic acid normal - consider infectious vs. ischemic - due to patient's allergy profile, will place on Aztreonam and Flagyl; once dose of Vanco given to cover enterococcus - stool studies, blood cultures - c-scope 2010 - grossly normal however poor prep - hgb stable at 10.2 (noted to be 15.1 04/2016) - will recheck H/H tonight, transfuse PRN - case discussed with TERRIE Villalba ARF - presenting with creat 3.8 (baseline 1.) - prerenal due to diarrhea - IVF, follow up labs in AM THROMBOCYTOPENIA - likely due to sepsis - consider HUS due to ARF and possible E. Coli with colitis - peripheral smear ordered HX NSVT - continue Verapamil ASTHMA - no signs of acute exacerbation - continue home inhalers MIGRAINES - continue home meds, PRN Nucynta HYPOTHYROIDISM - continue levothyroxine DVT PROPHYLAXIS - SCDs due to thrombocytopenia DISPO - In my clinical judgment this beneficiary meets acute admission criteria, established by [facility], that includes being hospitalized through two midnights. ADDENDUM: This is a 56 year old female who presents with two week history of dark bloody stools/diarrhea. States there was no abdominal pain with this. Denies hematemesis, though mentions epistaxis, which is a recurrent issue. Denies fevers/chills, unsure if she ate anything unusual WBC elevated on admission The plan for now is to continue abx. (noted PCN, quinolone, sulfa, and tetracycline allergy) - will start Flagyl and Aztreonam with one dose of Vancomycin as well. Monitor H/H and transfuse PRN cultures pending oral Protonix for now outpatient colonoscopy as per GI in 4-6 weeks GI following Acute Kidney Injury noted, baseline creatinine of 1.0 - significant diarrhea/ dehydration/volume depletion - continue IVFs and recheck labs in AM Thrombocytopenia noted; this is likely secondary to sepsis, monitor this daily, with hopes of increasing platelet count after antibiotic use. Advanced Directives Existing Living Will: No Existing Power of Lifter Driver: No VTE Prophylaxis VTE Risk Assessment Done? Y/N: Yes Risk Level: Moderate Given or contraindicated: Treatment not indicated
[2017-03-12 19:33] LABS: HEMATOCRIT 23.1 % (37-47)
[2017-03-12] MEDS ORDERED: DiphenhydrAMINE HCL 50 MG/ML VIAL IV SCH (20:15)
[2017-03-12] MEDS: METRONIDAZOLE / NSS 500 MG in PREMIXED NSS 100 ML IV SCH (21:53)
[2017-03-12] MEDS: ROPINIROLE HCL 1 MG TAB PO SCH (21:53)
[2017-03-12] MEDS: FEXOFENADINE HCL 180 MG TAB PO SCH (21:53)
[2017-03-12] MEDS: TOPIRAMATE 100 MG TAB PO SCH (21:53)
[2017-03-12] MEDS: AMITRIPTYLINE HCL 25 MG TAB PO SCH (21:53)
[2017-03-12] MEDS: PANTOprazole SOD 40 MG TAB PO SCH (21:53)
[2017-03-12] MEDS: VERAPAMIL HCL 40 MG TAB PO SCH (21:53)
[2017-03-12] MEDS: MONTELUKAST SOD 10 MG TAB PO SCH (21:53)
[2017-03-12] MEDS: ACETAMINOPHEN 325 MG TAB PO PRN (22:30)
[2017-03-13] VITALS (8 sets, daily range): BP systolic 108–133; BP diastolic 68–87; PULSE 86–98; TEMP 36.6–37; O2SAT 97–100
[2017-03-13] MEDS: SODIUM CHLORIDE 0.9% 1000ML 1,000 ML IV SCH ×3 (00:31→17:27)
[2017-03-13] MEDS: TRAMADOL HCL 50 MG TAB PO PRN ×2 (02:20→09:20)
[2017-03-13] MEDS: METRONIDAZOLE / NSS 500 MG in PREMIXED NSS 100 ML IV SCH ×3 (02:20→17:28)
[2017-03-13] MEDS: AZTREONAM IV 1,000 MG in DEXTROSE 5% 100ML IV SCH ×2 (04:56→17:28)
[2017-03-13] MEDS: MoRPHine SULFATE 4 MG/ML 1 ML CARP\\VIAL IV PRN ×3 (04:56→18:30)
[2017-03-13] MEDS: LEVOTHYROXINE 100 MCG TAB PO SCH (06:04)
[2017-03-13 06:21] LABS: MEAN CORPUSCULAR HGB CONC 33.9 g/dl (32-36)
[2017-03-13 06:48] LABS: HEMATOCRIT 25.4 % (37-47); MEAN CELL VOLUME 88.5 fL (80-100); RED BLOOD COUNT 2.87 M/uL (4.2-5.4); WHITE BLOOD COUNT 13.17 K/uL (4.8-10.8)
[2017-03-13 06:51] LABS: BUN/CREATININE RATIO 31.5 (10-20); CALCIUM 7.7 mg/dl (8.5-10.1); CREATININE 2.8 mg/dl (0.60-1.20); POTASSIUM 4.9 mmol/L (3.5-5.1)
[2017-03-13 06:55] LABS: BASO % 0.2 %; BASO ABS # 0.02 K/uL (0-0.2); COMPLETE YES; EOS % 0.5 %; IG% 4.9 %; LYMPH % 12.4 %; LYMPH ABS # 1.63 K/uL (1.2-3.4); MONO % 9.9 %; NEUT % 72.1 %; PLATELET COUNT 31 K/uL (130-400); PLT ESTIMATE SIGNIFIC DECREASED; SCHISTOCYTES 1+
[2017-03-13] MEDS: FERROUS SULFATE 325 MG TAB PO SCH ×4 (09:20→21:21)
[2017-03-13] MEDS: TOPIRAMATE 100 MG TAB PO SCH ×2 (09:20→21:20)
[2017-03-13] MEDS: PANTOprazole SOD 40 MG TAB PO SCH ×2 (09:20→21:20)
[2017-03-13] MEDS: CHOLECALCIFEROL 1000 INTER.UNIT TAB PO SCH (09:21)
[2017-03-13] MEDS: MULTIVITAMIN TAB PO SCH (09:21)
[2017-03-13] MEDS: VERAPAMIL HCL 40 MG TAB PO SCH ×2 (09:21→21:19)
[2017-03-13] MEDS: RANITIDINE HCL 150 MG TAB PO SCH (09:21)
[2017-03-13] MEDS: SUCRALFATE 1 GM TAB PO SCH ×4 (09:21→21:18)
[2017-03-13] MEDS: ONDANSETRON INJ 2 MG/ML 2 ML VIAL IV PRN ×2 (11:02→21:28)
--- NOTE | 2017-03-13 19:05 | Progress Note ---
Internal Med Progress Note Date of Service: Mar 13, 2017. Provider Documentation: SUBJECTIVE: still having bloody diarrhea but getting better has significant abdominal pain no nausea tolerating clears afebrile no sob or chest pain OBJECTIVE: Vital Signs-as noted below Exam: General-alert and oriented. Not in distress ENT-normal hearing Neck-no neck masses Lungs-cta b/l no wheezing no crackles Heart-s1 and s2 heard regular rhythm, no murmurs Abdomen-soft bowel sounds present mild diffuse tender no distension Extremities no edema present no erythema Neuro-alert and oriented moves extremities Lab data as noted below. ASSESSMENT & PLAN: SEPSIS AND LOWER GI BLEED DUE TO COLITIS Bacteremia presenting with 2 weeks of bloody diarrhea; in the ED, found to have severe right sided colitis on CT meets sepsis criteria: WBC 15K, tachycardia; BP stable, lactic acid normal on iv Azactam and Flagyl added cipro for possible HUS from e.coli blood cx gm negative bacilli stool cx pending c diff negative Gi on board ARF presenting with creat 3.8 (baseline 1.) cr 2.8 today on fluids will f/u labs THROMBOCYTOPENIA likely due to sepsis Mostlikely HUS due to ARF and possible E. Coli with colitis - peripheral smear shows schistocytes supportive care will f/u labs Bloody diarrhea possible HUS from e.coli supportyive care will monitor Anemia acute blood loss from above will f/u labs and transfuse as needed HX NSVT on Verapamil ASTHMA no signs of acute exacerbation to continue home inhalers MIGRAINES to continue home meds, PRN Nucynta HYPOTHYROIDISM on levothyroxine DVT PROPHYLAXIS SCDs due to thrombocytopenia DISPOSITION monitor in tele to be determined Vital Signs: Date Time Temp Pulse Resp B/P (MAP) Pulse Ox O2 Delivery O2 Flow Rate FiO2 03/13/17 16:41 37.0 89 16 127/87 (100) 100 Room Air 03/13/17 16:05 Room Air 03/13/17 12:00 Room Air 03/13/17 11:41 36.8 95 18 108/68 (81) 97 Room Air 03/13/17 08:00 Room Air 03/13/17 07:45 36.7 86 18 114/74 (87) 99 Room Air 03/13/17 04:00 Room Air 03/13/17 03:30 36.6 96 15 133/84 (100) 100 Room Air 03/13/17 00:15 37.0 98 20 123/84 99 03/12/17 23:59 99 Room Air 03/12/17 23:29 37.3 100 17 131/86 100 03/12/17 22:31 36.8 101 18 158/84 100 03/12/17 22:01 36.8 100 18 158/84 100 03/12/17 21:40 37.5 99 18 141/92 100 03/12/17 20:00 100 Room Air 03/12/17 19:58 37.2 96 16 134/89 (104) 100 Room Air Lab Results: Results Past 24 Hours Test 03/12/17 19:21 03/12/17 23:45 03/13/17 05:58 03/13/17 19:02 Range/Units Hemoglobin 7.7 8.6 12.0-16.0 g/dL Hematocrit 23.1 25.4 37-47 % Magnesium Level 2.4 1.8-2.4 mg/dl Hepatitis C Antibody Screen NEG NEG White Blood Count 13.17 4.8-10.8 K/uL Red Blood Count 2.87 4.2-5.4 M/uL Mean Corpuscular Volume 88.5 80-100 fL Mean Corpuscular Hemoglobin 30.0 25-34 pg Mean Corpuscular Hemoglobin Concent 33.9 32-36 g/dl Platelet Count 31 130-400 K/uL Neutrophils (%) (Auto) 72.1 % Lymphocytes (%) (Auto) 12.4 % Monocytes (%) (Auto) 9.9 % Eosinophils (%) (Auto) 0.5 % Basophils (%) (Auto) 0.2 % Neutrophils # (Auto) 9.50 1.4-6.5 K/uL Lymphocytes # (Auto) 1.63 1.2-3.4 K/uL Monocytes # (Auto) 1.31 0.11-0.59 K/uL Eosinophils # (Auto) 0.07 0-0.5 K/uL Basophils # (Auto) 0.02 0-0.2 K/uL RDW Standard Deviation 53.5 36.4-46.3 fL RDW Coefficient of Variation 16.9 11.5-14.5 % Immature Granulocyte % (Auto) 4.9 % Immature Granulocyte # (Auto) 0.64 0.00-0.02 K/uL Nucleated RBC Absolute Count (auto) 0.22 0-0 K/uL Nucleated Red Blood Cells % 1.6 % Platelet Estimate SIGNIFIC DECREASED Schistocytes 1+ Sodium Level 138 136-145 mmol/L Potassium Level 4.9 3.5-5.1 mmol/L Chloride Level 111 98-107 mmol/L Carbon Dioxide Level 21 21-32 mmol/L Anion Gap 6.0 3-11 mmol/L Blood Urea Nitrogen 88 7-18 mg/dl Creatinine 2.80 0.60-1.20 mg/dl Est Creatinine Clear Calc Drug Dose 23.1 ml/min Estimated GFR () 21.2 Estimated GFR (Non- 18.3 BUN/Creatinine Ratio 31.5 10-20 Random Glucose 121 70-99 mg/dl Calcium Level 7.7 8.5-10.1 mg/dl Random Vancomycin Level 21.6 mcg/ml Test 03/13/17 19:05 Range/Units Microbiology Results 03/12/17 C.difficile Toxin B Gene (PCR) - Final, Complete No C. difficile toxin B gene detected 03/12/17 Shiga Toxin Test, Received Pending 03/12/17 Stool Culture, Received Pending
[2017-03-13] MEDS ORDERED: CIPROFLOXACIN CONSULT ACTIVE PRN ×2 (19:30)
[2017-03-13 19:32] LABS: COMPLETE YES; EOSINOPHIL % 0.9 %; HEMATOCRIT 23.5 % (37-47); LARGE PLATELETS 1+; LYMPH ABS # 1.43 K/uL (1.2-3.4); LYMPHOCYTE % 12.2 %; MEAN CELL VOLUME 89.7 fL (80-100); MEAN CORPUSCULAR HEMOGLOBIN 30.5 pg (25-34); METAMYELOCYTE % 1.7 %; NEUTROPHILS % 82.6 %; PLT ESTIMATE SIGNIFIC DECREASED; RED BLOOD COUNT 2.62 M/uL (4.2-5.4); SCHISTOCYTES 2+; TOXIC GRANULATION 2+; WHITE BLOOD COUNT 11.76 K/uL (4.8-10.8)
[2017-03-13 19:40] LABS: PLATELET COUNT 31 K/uL (130-400)
[2017-03-13] MEDS: CIPROFLOXACIN / D5W 400 MG in PREMIXED IN D5W 200 ML IV SCH (19:47)
[2017-03-13] MEDS: FEXOFENADINE HCL 180 MG TAB PO SCH (21:18)
[2017-03-13] MEDS: AMITRIPTYLINE HCL 25 MG TAB PO SCH (21:19)
[2017-03-13] MEDS: MONTELUKAST SOD 10 MG TAB PO SCH (21:20)
[2017-03-13] MEDS: ROPINIROLE HCL 1 MG TAB PO SCH (21:20)
[2017-03-14] VITALS (12 sets, daily range): BP systolic 110–132; BP diastolic 71–88; PULSE 83–94; TEMP 36.4–37; O2SAT 96–100
[2017-03-14] MEDS: SODIUM CHLORIDE 0.9% 1000ML 1,000 ML IV SCH ×3 (02:25→23:08)
[2017-03-14] MEDS: METRONIDAZOLE / NSS 500 MG in PREMIXED NSS 100 ML IV SCH ×3 (02:28→17:34)
[2017-03-14] MEDS: MoRPHine SULFATE 4 MG/ML 1 ML CARP\\VIAL IV PRN ×4 (02:36→23:08)
[2017-03-14] MEDS: AZTREONAM IV 1,000 MG in DEXTROSE 5% 100ML IV SCH ×2 (04:16→15:57)
[2017-03-14 05:05] LABS: CREATININE 2.5 mg/dl (0.60-1.20)
[2017-03-14] MEDS: LEVOTHYROXINE 100 MCG TAB PO SCH (06:12)
[2017-03-14 07:50] LABS: MEAN CORPUSCULAR HGB CONC 34.3 g/dl (32-36)
[2017-03-14 08:11] LABS: HEMATOCRIT 23.3 % (37-47); MEAN CORPUSCULAR HEMOGLOBIN 30.9 pg (25-34); RED BLOOD COUNT 2.59 M/uL (4.2-5.4); WHITE BLOOD COUNT 12.07 K/uL (4.8-10.8)
[2017-03-14 08:27] LABS: PLATELET COUNT 37 K/uL (130-400)
[2017-03-14 08:28] LABS: BASO % 0.2 %; BASO ABS # 0.03 K/uL (0-0.2); COMPLETE YES; EOS % 0.8 %; IG% 7.2 %; LYMPH % 15.9 %; LYMPH ABS # 1.92 K/uL (1.2-3.4); MONO % 8.5 %; NEUT % 67.4 %; PLT ESTIMATE DECREASED; SCHISTOCYTES 2+; TOXIC GRANULATION 3+
[2017-03-14 08:36] LABS: BUN/CREATININE RATIO 31.5 (10-20); CALCIUM 7.5 mg/dl (8.5-10.1); CREATININE 2.5 mg/dl (0.60-1.20); MAGNESIUM 2.1 mg/dl (1.8-2.4); POTASSIUM 4.4 mmol/L (3.5-5.1)
[2017-03-14] MEDS: ONDANSETRON INJ 2 MG/ML 2 ML VIAL IV PRN (08:49)
[2017-03-14] MEDS: VERAPAMIL HCL 40 MG TAB PO SCH ×2 (08:50→21:09)
[2017-03-14] MEDS: FERROUS SULFATE 325 MG TAB PO SCH ×4 (08:50→21:10)
[2017-03-14] MEDS: TOPIRAMATE 100 MG TAB PO SCH ×2 (08:50→21:08)
[2017-03-14] MEDS: RANITIDINE HCL 150 MG TAB PO SCH (08:51)
[2017-03-14] MEDS: CHOLECALCIFEROL 1000 INTER.UNIT TAB PO SCH (08:51)
[2017-03-14] MEDS: SUCRALFATE 1 GM TAB PO SCH ×4 (08:51→21:09)
[2017-03-14] MEDS: MULTIVITAMIN TAB PO SCH (08:51)
[2017-03-14] MEDS: PANTOprazole SOD 40 MG TAB PO SCH ×2 (08:51→21:09)
[2017-03-14 08:57] LABS: PHOSPHORUS 3.4 mg/dl (2.5-4.9)
[2017-03-14] MEDS ORDERED: ACETAMINOPHEN 325 MG TAB PO SCH (10:30)
--- NOTE | 2017-03-14 11:22 | Progress Note ---
Internal Med Progress Note Date of Service: Mar 14, 2017. Provider Documentation: SUBJECTIVE: still having bloody diarrhea and last bowel movem net was around 6:30am today still has abdominal pain was nauseous appetite poor afebrile no sob OBJECTIVE: Vital Signs-as noted below Exam: General-alert and oriented. Not in distress ENT-normal hearing Neck-no neck masses Lungs-cta b/l no wheezing no crackles Heart-s1 and s2 heard regular rhythm, no murmurs Abdomen-soft bowel sounds present mild diffuse tender no distension Extremities no edema present no erythema Neuro-alert and oriented moves extremities Lab data as noted below. ASSESSMENT & PLAN: SEPSIS AND LOWER GI BLEED DUE TO COLITIS Bacteremia presenting with 2 weeks of bloody diarrhea; in the ED, found to have severe right sided colitis on CT meets sepsis criteria: WBC 15K, tachycardia; BP stable, lactic acid normal on iv Azactam and Flagyl added cipro for possible HUS from e.coli blood cx gm negative bacilli stool cx pending c diff negative Gi on board hemodynamics stab;le close monitor ARF presenting with creat 3.8 (baseline 1.) cr 2.5 today on fluids slow improvement will f/u labs THROMBOCYTOPENIA likely due to sepsis Mostlikely HUS due to ARF and possible E. Coli with colitis - peripheral smear shows schistocytes platelets 37 today supportive care will f/u labs Bloody diarrhea possible HUS from e.coli supportive care will monitor Anemia acute blood loss from above hb 8.0 today will transfuse one unit of prbc today will f/u labs and transfuse as needed HX NSVT on Verapamil ASTHMA no signs of acute exacerbation to continue home inhalers MIGRAINES to continue home meds, PRN Nucynta HYPOTHYROIDISM on levothyroxine DVT PROPHYLAXIS SCDs due to thrombocytopenia DISPOSITION monitor in tele to be determined Vital Signs: Date Time Temp Pulse Resp B/P (MAP) Pulse Ox O2 Delivery O2 Flow Rate FiO2 03/14/17 08:00 Room Air 03/14/17 07:45 36.4 85 18 110/71 (84) 97 Room Air 03/14/17 04:00 97 Room Air 03/14/17 03:33 36.7 88 17 119/78 (92) 97 Room Air 03/13/17 23:59 Room Air 03/13/17 23:29 36.8 95 20 123/75 (91) 97 Room Air 03/13/17 20:00 98 Room Air 03/13/17 19:34 37.0 89 18 129/84 (99) 98 Room Air 03/13/17 16:41 37.0 89 16 127/87 (100) 100 Room Air 03/13/17 16:05 Room Air 03/13/17 12:00 Room Air 03/13/17 11:41 36.8 95 18 108/68 (81) 97 Room Air Lab Results: Results Past 24 Hours Test 03/13/17 19:02 03/14/17 04:20 03/14/17 07:27 Range/Units White Blood Count 11.76 12.07 4.8-10.8 K/uL Red Blood Count 2.62 2.59 4.2-5.4 M/uL Hemoglobin 8.0 8.0 12.0-16.0 g/dL Hematocrit 23.5 23.3 37-47 % Mean Corpuscular Volume 89.7 90.0 80-100 fL Mean Corpuscular Hemoglobin 30.5 30.9 25-34 pg Mean Corpuscular Hemoglobin Concent 34.0 34.3 32-36 g/dl Platelet Count 31 37 130-400 K/uL RDW Standard Deviation 56.1 56.9 36.4-46.3 fL RDW Coefficient of Variation 17.5 18.1 11.5-14.5 % Neutrophils % (Manual) 82.6 % Lymphocytes % (Manual) 12.2 % Monocytes % (Manual) 2.6 % Eosinophils % (Manual) 0.9 % Metamyelocytes % 1.7 % Neutrophils # (Manual) 9.71 1.4-6.5 K/uL Total Absolute Neutrophils 9.71 1.4-6.5 K/uL Lymphocytes # (Manual) 1.43 1.2-3.4 K/uL Total Absolute Lymphocytes 1.43 1.2-3.4 K/uL Monocytes # (Manual) 0.31 0.11-0.59 K/uL Eosinophils # (Manual) 0.11 0-0.5 K/uL Metamyelocytes # 0.20 0-0 K/uL Toxic Granulation 2+ 3+ Platelet Estimate SIGNIFIC DECREASED DECREASED Large Platelets 1+ Schistocytes 2+ 2+ Creatinine 2.50 2.50 0.60-1.20 mg/dl Est Creatinine Clear Calc Drug Dose 26.3 26.5 ml/min Estimated GFR () 24.3 24.3 Estimated GFR (Non- 20.9 20.9 Neutrophils (%) (Auto) 67.4 % Lymphocytes (%) (Auto) 15.9 % Monocytes (%) (Auto) 8.5 % Eosinophils (%) (Auto) 0.8 % Basophils (%) (Auto) 0.2 % Neutrophils # (Auto) 8.13 1.4-6.5 K/uL Lymphocytes # (Auto) 1.92 1.2-3.4 K/uL Monocytes # (Auto) 1.02 0.11-0.59 K/uL Eosinophils # (Auto) 0.10 0-0.5 K/uL Basophils # (Auto) 0.03 0-0.2 K/uL Immature Granulocyte % (Auto) 7.2 % Immature Granulocyte # (Auto) 0.87 0.00-0.02 K/uL Nucleated RBC Absolute Count (auto) 0.27 0-0 K/uL Nucleated Red Blood Cells % 2.2 % Sodium Level 143 136-145 mmol/L Potassium Level 4.4 3.5-5.1 mmol/L Chloride Level 116 98-107 mmol/L Carbon Dioxide Level 17 21-32 mmol/L Anion Gap 10.0 3-11 mmol/L Blood Urea Nitrogen 79 7-18 mg/dl BUN/Creatinine Ratio 31.5 10-20 Random Glucose 89 70-99 mg/dl Calcium Level 7.5 8.5-10.1 mg/dl Phosphorus Level 3.4 2.5-4.9 mg/dl Magnesium Level 2.1 1.8-2.4 mg/dl Total Bilirubin 0.4 0.2-1 mg/dl Direct Bilirubin 0.1 0-0.2 mg/dl Aspartate Amino Transf (AST/SGOT) 22 15-37 U/L Alanine Aminotransferase (ALT/SGPT) 23 12-78 U/L Alkaline Phosphatase 149 45-117 U/L Total Protein 4.1 6.4-8.2 gm/dl Albumin 1.2 3.4-5.0 gm/dl
[2017-03-14] MEDS: TAPENTADOL HCL 50 MG TAB PO PRN ×2 (13:19→20:11)
[2017-03-14] MEDS: ACETAMINOPHEN 325 MG TAB PO PRN (18:19)
[2017-03-14] MEDS: CIPROFLOXACIN / D5W 400 MG in PREMIXED IN D5W 200 ML IV SCH (20:11)
[2017-03-14] MEDS: ROPINIROLE HCL 1 MG TAB PO SCH (21:08)
[2017-03-14] MEDS: FEXOFENADINE HCL 180 MG TAB PO SCH (21:09)
[2017-03-14] MEDS: MONTELUKAST SOD 10 MG TAB PO SCH (21:09)
[2017-03-14] MEDS: AMITRIPTYLINE HCL 25 MG TAB PO SCH (21:09)
[2017-03-15] MEDS: METRONIDAZOLE / NSS 500 MG in PREMIXED NSS 100 ML IV SCH ×2 (02:07→11:11)
[2017-03-15] MEDS: AZTREONAM IV 1,000 MG in DEXTROSE 5% 100ML IV SCH (03:57)
[2017-03-15 04:02] VITALS: BP 132/86; PULSE 84; TEMP 36.6; O2SAT 97
[2017-03-15 05:44] LABS: HEMATOCRIT 25.3 % (37-47); MEAN CELL VOLUME 89.7 fL (80-100); MEAN CORPUSCULAR HEMOGLOBIN 30.5 pg (25-34); PLATELET COUNT 61 K/uL (130-400); RED BLOOD COUNT 2.82 M/uL (4.2-5.4); WHITE BLOOD COUNT 8.94 K/uL (4.8-10.8)
[2017-03-15 05:49] LABS: BUN/CREATININE RATIO 31.2 (10-20); CALCIUM 7.3 mg/dl (8.5-10.1); CREATININE 2.3 mg/dl (0.60-1.20); MAGNESIUM 2.1 mg/dl (1.8-2.4); POTASSIUM 4.3 mmol/L (3.5-5.1)
[2017-03-15 05:57] LABS: BASO % 0.2 %; BASO ABS # 0.02 K/uL (0-0.2); COMPLETE YES; EOS % 0.7 %; IG% 7.4 %; LYMPH % 18.1 %; LYMPH ABS # 1.62 K/uL (1.2-3.4); NEUT % 63.6 %; PLT ESTIMATE DECREASED; SCHISTOCYTES 1+
[2017-03-15] MEDS: SUCRALFATE 1 GM TAB PO SCH ×4 (06:19→19:53)
[2017-03-15] MEDS: LEVOTHYROXINE 100 MCG TAB PO SCH (06:19)
[2017-03-15] MEDS: FERROUS SULFATE 325 MG TAB PO SCH ×4 (06:19→19:53)
[2017-03-15 06:58] LABS: TOXIC GRANULATION 3+
[2017-03-15 07:06] VITALS: BP 135/90; PULSE 84; TEMP 36.8; O2SAT 99
[2017-03-15] MEDS: CHOLECALCIFEROL 1000 INTER.UNIT TAB PO SCH (07:36)
[2017-03-15] MEDS: TAPENTADOL HCL 50 MG TAB PO PRN (07:36)
[2017-03-15] MEDS: RANITIDINE HCL 150 MG TAB PO SCH (07:37)
[2017-03-15] MEDS: VERAPAMIL HCL 40 MG TAB PO SCH ×2 (07:37→19:54)
[2017-03-15] MEDS: TOPIRAMATE 100 MG TAB PO SCH ×2 (07:37→19:53)
[2017-03-15] MEDS: PANTOprazole SOD 40 MG TAB PO SCH ×2 (07:37→19:54)
[2017-03-15] MEDS: MULTIVITAMIN TAB PO SCH (07:37)
[2017-03-15] MEDS: SODIUM CHLORIDE 0.9% 1000ML 1,000 ML IV SCH ×2 (07:38→17:52)
[2017-03-15] MEDS: MoRPHine SULFATE 4 MG/ML 1 ML CARP\\VIAL IV PRN ×2 (10:28→21:04)
--- NOTE | 2017-03-15 10:47 | Gastroenterology Progress Note ---
Progress Note Date of Service: Mar 15, 2017 Subjective Pt evaluation today including: conversation w/ patient, physical exam Pt was seen and evaluated, chart reviewed. She tells me her abdominal symptoms are about 50% resolved. Tells me abdominal pain is limited to just prior and after BM. Has had three episodes of rectal bleeding since evaluation yesterday. Per pt blood is mixed with stool, and dark red. Otherwise feels well. Is on clear liquid diet and is tolerating. No N/V. Review of Systems Constitutional: No fever, No chills Respiratory: No cough Cardiac: No chest pain Abdomen: + pain, + diarrhea, + GI bleeding Medications Current Inpatient Medications Medications (Trade) Dose Ordered Sig/Zo Route Start Time Stop Time Status Last Admin Dose Admin Ioversol (Optiray 320) 100 ml UD PRN IV 03/12/17 12:15 03/16/17 12:14 Acetaminophen (Tylenol Tab) 650 mg Q4H PRN PO 03/12/17 14:30 04/11/17 14:29 03/14/17 18:19 650 MG Ondansetron HCl (Zofran Inj) 4 mg Q6H PRN IV 03/12/17 14:30 04/11/17 14:29 03/14/17 08:49 4 MG Sodium Chloride 1,000 ml @ 100 mls/hr Q10H IV 03/12/17 14:30 04/11/17 14:29 03/15/17 07:38 100 MLS/HR Metronidazole 500 mg/Prmx 100 ml @ 100 mls/hr Q8H IV 03/12/17 18:00 03/22/17 17:59 03/15/17 02:07 100 MLS/HR Amitriptyline HCl (Elavil Tab) 75 mg HS PO 03/12/17 21:00 04/11/17 20:59 03/14/17 21:09 75 MG Cholecalciferol (Vitamin D Tab) 2,000 inter.unit DAILY PO 03/13/17 09:00 04/12/17 08:59 03/15/17 07:36 2,000 INTER.UNIT Ferrous Sulfate (Feosol Tab) 325 mg QIDM PO 03/12/17 16:45 04/11/17 16:44 03/15/17 07:36 325 MG Fexofenadine HCl (Yuliya Tab) 180 mg HS PO 03/12/17 21:00 04/11/17 20:59 03/14/17 21:09 180 MG Levalbuterol (Xopenex 1.25MG/ 3ML Neb) 1.25 mg TID PRN INH 03/12/17 15:15 04/11/17 15:14 Levothyroxine Sodium (Synthroid Tab) 100 mcg DAILYBB PO 03/13/17 06:00 04/12/17 05:59 03/15/17 06:19 100 MCG Montelukast Sodium (Singulair Tab) 10 mg HS PO 03/12/17 21:00 04/11/17 20:59 03/14/17 21:09 10 MG Multivitamins (Multivitamin Tab) 1 tab QAM PO 03/13/17 09:00 04/12/17 08:59 03/15/17 07:37 1 TAB Ranitidine HCl (zANTac TAB) 150 mg QAM PO 03/13/17 09:00 04/12/17 08:59 03/15/17 07:37 150 MG Ropinirole HCl (Requip Tab) 1.5 mg HS PO 03/12/17 21:00 04/11/17 20:59 03/14/17 21:08 1.5 MG Sucralfate (Carafate Tab) 1 gm ACHS PO 03/12/17 16:15 04/11/17 16:14 03/15/17 07:36 1 GM Topiramate (Topamax Tab) 100 mg BID PO 03/12/17 21:00 04/11/17 20:59 03/15/17 07:37 100 MG Verapamil HCl (Isoptin Tab) 40 mg BID PO 03/12/17 21:00 04/11/17 20:59 03/15/17 07:37 40 MG Pantoprazole Sodium (Protonix Tab) 40 mg BID PO 03/12/17 21:00 04/11/17 20:59 03/15/17 07:37 40 MG Tapentadol (Nucynta Tab) 100 mg Q6H PRN PO 03/12/17 15:15 04/11/17 15:14 03/15/17 07:36 100 MG Miscellaneous Information (Order Awaiting Action) 1 ea DAILY@0600 N/A 03/12/17 18:00 04/11/17 17:59 Aztreonam (Consult) 1 ea UD PRN N/A 03/12/17 16:00 04/11/17 15:59 Aztreonam 1000 mg/ Dextrose 110 ml @ 110 mls/hr Q12H IV 03/13/17 04:00 03/23/17 03:59 03/15/17 03:57 110 MLS/HR Morphine Sulfate (MoRPHine SULFATE INJ) 4 mg Q6H PRN IV 03/13/17 04:30 03/27/17 04:29 03/15/17 10:28 4 MG Ciprofloxacin/ Dextrose 400 mg/ Prmx 200 ml @ 100 mls/hr DAILY@2000 IV 03/13/17 20:00 03/23/17 19:59 03/14/17 20:11 100 MLS/HR Ciprofloxacin (Consult) 1 ea PRN N/A 03/13/17 19:30 04/12/17 19:29 Heparin Sodium (Porcine) (Heparin 100 Unit/ml 5ml Flush) 5 ml PRN PRN IV 03/14/17 01:00 04/13/17 00:59 Objective Vital Signs Date Time Temp Pulse Resp B/P (MAP) Pulse Ox O2 Delivery O2 Flow Rate FiO2 03/15/17 08:00 Room Air 03/15/17 07:06 36.8 84 16 135/90 (105) 99 Room Air 03/15/17 04:02 36.6 84 17 132/86 (101) 97 Room Air 03/15/17 04:02 Room Air 03/15/17 00:00 Room Air 03/14/17 23:59 36.7 84 18 127/85 (99) 99 Room Air 03/14/17 20:22 37.0 94 18 132/82 (99) 98 Room Air 03/14/17 20:00 Room Air 03/14/17 17:04 36.9 90 20 121/82 (95) 96 Room Air 03/14/17 16:00 Room Air 03/14/17 13:10 36.9 83 16 130/88 98 03/14/17 12:32 36.7 87 18 131/88 97 03/14/17 12:02 36.8 86 16 126/84 97 03/14/17 12:00 Room Air 03/14/17 11:47 36.9 85 16 125/87 98 03/14/17 11:32 36.8 88 18 115/77 100 03/14/17 11:31 36.8 86 18 118/81 (93) 100 Room Air Physical Exam General Appearance: no apparent distress Eyes: PERRL ENT: hearing grossly normal Neck: supple Respiratory/Chest: lungs clear, normal breath sounds Cardiovascular: regular rate, rhythm Abdomen: normal bowel sounds, non tender, soft Neurologic/Psych: alert, normal mood/affect, oriented x 3 Skin: normal color, no jaundice Laboratory Results Last 24 Hours Test 03/15/17 04:53 White Blood Count 8.94 K/uL Red Blood Count 2.82 M/uL Hemoglobin 8.6 g/dL Hematocrit 25.3 % Mean Corpuscular Volume 89.7 fL Mean Corpuscular Hemoglobin 30.5 pg Mean Corpuscular Hemoglobin Concent 34.0 g/dl Platelet Count 61 K/uL Neutrophils (%) (Auto) 63.6 % Lymphocytes (%) (Auto) 18.1 % Monocytes (%) (Auto) 10.0 % Eosinophils (%) (Auto) 0.7 % Basophils (%) (Auto) 0.2 % Neutrophils # (Auto) 5.69 K/uL Lymphocytes # (Auto) 1.62 K/uL Monocytes # (Auto) 0.89 K/uL Eosinophils # (Auto) 0.06 K/uL Basophils # (Auto) 0.02 K/uL RDW Standard Deviation 56.4 fL RDW Coefficient of Variation 17.9 % Immature Granulocyte % (Auto) 7.4 % Immature Granulocyte # (Auto) 0.66 K/uL Nucleated RBC Absolute Count (auto) 0.30 K/uL Nucleated Red Blood Cells % 3.4 % Toxic Granulation 3+ Platelet Estimate DECREASED Schistocytes 1+ Sodium Level 142 mmol/L Potassium Level 4.3 mmol/L Chloride Level 119 mmol/L Carbon Dioxide Level 18 mmol/L Anion Gap 5.0 mmol/L Blood Urea Nitrogen 72 mg/dl Creatinine 2.30 mg/dl Est Creatinine Clear Calc Drug Dose 28.8 ml/min Estimated GFR () 26.8 Estimated GFR (Non- 23.2 BUN/Creatinine Ratio 31.2 Random Glucose 108 mg/dl Calcium Level 7.3 mg/dl Magnesium Level 2.1 mg/dl Assessment and Plan Patient is a 56 year old female who presented to ED w c/o bloody BMs x 2 weeks, ARF, anemia (hx of iron deficiency anemia and celiacs disease); CT showed extensive colonic wall thickening especially at ascending colon area suspicious for non specific colitis but no signs of bowel obstructions. C.diff and culture negative, Giardia pending. - HUS secondary to ARF and e.coli w/ colitis - Monitor H/H and transfuse prn - IVF resuscitation, - Protonix 40mg PO daily - Ok to advance diet as tolerated for soft, bland diet as long as having n/v, increased abd pain. - Colonoscopy in 4-6 weeks - GI will follow. Call with questions. I saw and evaluated the patient. I took the opportunity to review her chart as I am new to her care today. The patient presented with several weeks of bloody bowel movements and was found to have Escherichia coli sepsis. The working diagnosis at this time appears to be hemolytic uremic syndrome. Physical examination No obvious distress Left lower quadrant tenderness Impression: Patient with hematochezia likely related to Enterohemorrhagic E. coli (EHEC) infection. The present recommendations appeared to be withholding antibiotic therapy for patients with this suspected infection. In addition should hemolytic uremic syndrome develop several sources recommend discontinuation of antibiotics and supportive care. The treatment of Enterohemorrhagic E. coli (EHEC) infection consists of supportive care and monitoring for the development of microangiopathic complications, such as hemolytic-uremic syndrome (HUS). Antiperistaltic agents increase the risk of systemic complications and should be avoided. Hemolytic-uremic syndrome (HUS) is the major systemic complication of EHEC infection. HUS is characterized by the triad of acute renal failure, microangiopathic hemolytic anemia, and non- immune thrombocytopenia; these typically begin 5 to 10 days after the onset of diarrhea. Recommendations Discontinue antibiotic therapy Continue with supportive care which includes IV hydration Nephrology consultation Infectious disease consultation Dr. Tarah Wood
[2017-03-15 10:48] VITALS: BP 148/84; PULSE 90; TEMP 36.9; O2SAT 100
--- NOTE | 2017-03-15 13:40 | DIAGNOSTIC IMAGING REPORT ---
CHEST ONE VIEW PORTABLE CLINICAL HISTORY: congestion COLITIS COMPARISON STUDY: 11/08/2015 FINDINGS: The cardiac and sternal contours remain stable. There is radiographic evidence of mild pulmonary vascular congestion/fluid overload. There is no focal pulmonary consolidation. Small subpulmonic pleural effusions may be present.[ The right-sided A-Port catheter remains unchanged in position IMPRESSION: 1. Mild pulmonary vascular congestion/fluid overload 2. No evidence of focal pulmonary consolidation 3. Possible small subpulmonic pleural effusions Electronically signed by: Shaheed Orozco M.D. 03/15/2017 1:39 PM Dictated Date/Time: 03/15/2017 1:38 PM
[2017-03-15 14:57] VITALS: BP 148/84; PULSE 90; TEMP 36.9; O2SAT 100
--- NOTE | 2017-03-15 15:56 | Medical Consult ---
Consultation Date of Consultation: Mar 15, 2017. Attending Physician: Marcel Coello MD Reason for Consultation: E coli bacteremia, HUS History of Present Illness 56-year-old female with complicated past medical history including celiac disease, sleep apnea, chronic anemia requiring intermittent transfusions, indwelling a port, who was admitted to the hospital with 2 week history of progressively worsening hemorrhagic diarrhea associated with abdominal pain and episodes of vomiting. No report of significant fever. She was found to be more anemic with elevations of creatinine and decrease in platelet count with worry for developing hemolytic uremic syndrome. Blood cultures now positive for E coli, pansensitive. Stool studies are unremarkable today, shiga toxin is negative in stool. Patient feeling somewhat better, now being treated with IV ciprofloxacin. Remains afebrile. Past Medical/Surgical History Medical Problems: (1) Chronic Pancreatitis Status: Chronic (2) Depressive Disorder Nec Status: Chronic (3) Lumbago Status: Chronic (4) Lumbar Disc Displacement Status: Chronic (5) Lumbosacral Neuritis Nos Status: Chronic Medical Problems: (1) Asthma, severe persistent (2) Celiac disease (3) Chronic Pancreatitis (4) Depressive Disorder Nec (5) Dyslipidemia (6) Gastroparesis (7) GERD (gastroesophageal reflux disease) (8) Hypothyroidism (9) IBS (irritable bowel syndrome) (10) CHARLES (iron deficiency anemia) (11) Lumbago (12) Lumbar Disc Displacement (13) Lumbosacral Neuritis Nos (14) MRSA (methicillin resistant Staphylococcus aureus) (15) NSVT (nonsustained ventricular tachycardia) (16) CYNTHIA (obstructive sleep apnea) Surgical Problems: (1) History of arthroscopic knee surgery (2) Hx of cardiac cath (3) Hx of cholecystectomy (4) S/P nasal surgery (5) S/P surgery on nasal septum (6) S/P GLENNY-BSO Family History FH: heart disease FATHER Stroke MOTHER Social History Smoking Status: Never Smoker Alcohol Use: none Allergies Coded Allergies: BEE STING (Verified Allergy, Severe, ANAPHYLAXIS, 03/12/17) Was allergic to earlier IV iron compounds but is currently receiving IV Iron at [facility] Cefaclor (Verified Allergy, Severe, CECLOR - SOB;RASH; UPSET STOMACH, ) Coconut (Verified Allergy, Severe, RASH; SOB, 03/12/17) Iron (Verified Allergy, Severe, SOB,TACHY WITH IV IRON, 03/12/17) Latex (Verified Allergy, Severe, SOB;RASH;BEET RED SKIN; ANAPHYLAXIS, ) Penicillins (Verified Allergy, Severe, SOB;RASH; TONGUE SWELLING; ANAPHYLAXIS, 03/12/17) Sulfa Drugs (Verified Allergy, Severe, SOB;RASH; ANAPHYLAXIS, 03/12/17) Tetracycline (Verified Allergy, Severe, SOB;RASH; N/V, 03/12/17) Lactose (Verified Allergy, Mild, RASH; BLOATING; DIARRHEA; VOMITING, ) Egg (Verified Allergy, Unknown, RASH, 03/12/17) Influenza Vaccine Live (Verified Allergy, Unknown, __, 03/12/17) Quinolones (Verified Allergy, Unknown, ALLERGY TO AVELOX ,CAN TAKE CIPRO OR LEVAQUIN W/O RXN, 03/12/17) Gluten (Verified Adverse Reaction, Unknown, CELIAC'S, 03/12/17) Current Inpatient Medications Current Inpatient Medications Medications (Trade) Dose Ordered Sig/Zo Route Start Time Stop Time Status Last Admin Dose Admin Ioversol (Optiray 320) 100 ml UD PRN IV 03/12/17 12:15 03/16/17 12:14 Acetaminophen (Tylenol Tab) 650 mg Q4H PRN PO 03/12/17 14:30 04/11/17 14:29 03/14/17 18:19 650 MG Ondansetron HCl (Zofran Inj) 4 mg Q6H PRN IV 03/12/17 14:30 04/11/17 14:29 03/14/17 08:49 4 MG Sodium Chloride 1,000 ml @ 100 mls/hr Q10H IV 03/12/17 14:30 04/11/17 14:29 03/15/17 07:38 100 MLS/HR Amitriptyline HCl (Elavil Tab) 75 mg HS PO 03/12/17 21:00 04/11/17 20:59 03/14/17 21:09 75 MG Cholecalciferol (Vitamin D Tab) 2,000 inter.unit DAILY PO 03/13/17 09:00 04/12/17 08:59 03/15/17 07:36 2,000 INTER.UNIT Ferrous Sulfate (Feosol Tab) 325 mg QIDM PO 03/12/17 16:45 04/11/17 16:44 03/15/17 07:36 325 MG Fexofenadine HCl (Yuliya Tab) 180 mg HS PO 03/12/17 21:00 04/11/17 20:59 03/14/17 21:09 180 MG Levalbuterol (Xopenex 1.25MG/ 3ML Neb) 1.25 mg TID PRN INH 03/12/17 15:15 04/11/17 15:14 Levothyroxine Sodium (Synthroid Tab) 100 mcg DAILYBB PO 03/13/17 06:00 04/12/17 05:59 03/15/17 06:19 100 MCG Montelukast Sodium (Singulair Tab) 10 mg HS PO 03/12/17 21:00 04/11/17 20:59 03/14/17 21:09 10 MG Multivitamins (Multivitamin Tab) 1 tab QAM PO 03/13/17 09:00 04/12/17 08:59 03/15/17 07:37 1 TAB Ranitidine HCl (zANTac TAB) 150 mg QAM PO 03/13/17 09:00 04/12/17 08:59 03/15/17 07:37 150 MG Ropinirole HCl (Requip Tab) 1.5 mg HS PO 03/12/17 21:00 04/11/17 20:59 03/14/17 21:08 1.5 MG Sucralfate (Carafate Tab) 1 gm ACHS PO 03/12/17 16:15 04/11/17 16:14 03/15/17 07:36 1 GM Topiramate (Topamax Tab) 100 mg BID PO 03/12/17 21:00 04/11/17 20:59 03/15/17 07:37 100 MG Verapamil HCl (Isoptin Tab) 40 mg BID PO 03/12/17 21:00 04/11/17 20:59 03/15/17 07:37 40 MG Pantoprazole Sodium (Protonix Tab) 40 mg BID PO 03/12/17 21:00 04/11/17 20:59 03/15/17 07:37 40 MG Tapentadol (Nucynta Tab) 100 mg Q6H PRN PO 03/12/17 15:15 04/11/17 15:14 03/15/17 07:36 100 MG Miscellaneous Information (Order Awaiting Action) 1 ea DAILY@0600 N/A 03/12/17 18:00 04/11/17 17:59 Morphine Sulfate (MoRPHine SULFATE INJ) 4 mg Q6H PRN IV 03/13/17 04:30 03/27/17 04:29 03/15/17 10:28 4 MG Ciprofloxacin/ Dextrose 400 mg/ Prmx 200 ml @ 100 mls/hr DAILY@2000 IV 03/13/17 20:00 03/23/17 19:59 03/14/17 20:11 100 MLS/HR Ciprofloxacin (Consult) 1 ea UD PRN N/A 03/13/17 19:30 04/12/17 19:29 Heparin Sodium (Porcine) (Heparin 100 Unit/ml 5ml Flush) 5 ml PRN PRN IV 03/14/17 01:00 04/13/17 00:59 Review of Systems Constitutional: + weakness, + fatigue, No fever Eyes: No problem reported ENT: No problem reported Respiratory: No problem reported Cardiovascular: No problem reported Abdomen: + pain, + nausea, + vomiting, + diarrhea, + GI bleeding Musculoskeletal: No problem reported Genitourinary - Female: No problem reported Neurologic: No problem reported Psychiatric: No problem reported Endocrine: No problem reported Hematologic / Lymphatic: No problem reported Integumentary: No problem reported Allergic / Immunologic: No problem reported Physical Exam Date Time Temp Pulse Resp B/P (MAP) Pulse Ox O2 Delivery O2 Flow Rate FiO2 03/15/17 14:57 36.9 90 18 100 03/15/17 12:00 Room Air 03/15/17 10:48 36.9 90 18 148/84 (105) 100 Room Air 03/15/17 08:00 Room Air 03/15/17 07:06 36.8 84 16 135/90 (105) 99 Room Air 03/15/17 04:02 36.6 84 17 132/86 (101) 97 Room Air 03/15/17 04:02 Room Air 03/15/17 00:00 Room Air 03/14/17 23:59 36.7 84 18 127/85 (99) 99 Room Air 03/14/17 20:22 37.0 94 18 132/82 (99) 98 Room Air 03/14/17 20:00 Room Air 03/14/17 17:04 36.9 90 20 121/82 (95) 96 Room Air 03/14/17 16:00 Room Air General Appearance: WD/WN, no apparent distress Head: normocephalic, atraumatic Eyes: normal inspection, EOMI, sclerae normal ENT: normal ENT inspection, pharynx normal Neck: supple, no adenopathy, thyroid normal, trachea midline Respiratory/Chest: chest non-tender, lungs clear, normal breath sounds, no respiratory distress Cardiovascular: regular rate, rhythm, no gallop, no murmur Abdomen/GI: normal bowel sounds, soft, no organomegaly, + tenderness Back: normal inspection, no CVA tenderness Extremities/Musculoskelatal: no calf tenderness, non-tender Neurologic/Psych: alert, oriented x 3 Skin: normal color, warm/dry, no rash Lymphatic: no adenopathy Laboratory Results Last 24 Hours Test 03/15/17 04:53 White Blood Count 8.94 K/uL Red Blood Count 2.82 M/uL Hemoglobin 8.6 g/dL Hematocrit 25.3 % Mean Corpuscular Volume 89.7 fL Mean Corpuscular Hemoglobin 30.5 pg Mean Corpuscular Hemoglobin Concent 34.0 g/dl Platelet Count 61 K/uL Neutrophils (%) (Auto) 63.6 % Lymphocytes (%) (Auto) 18.1 % Monocytes (%) (Auto) 10.0 % Eosinophils (%) (Auto) 0.7 % Basophils (%) (Auto) 0.2 % Neutrophils # (Auto) 5.69 K/uL Lymphocytes # (Auto) 1.62 K/uL Monocytes # (Auto) 0.89 K/uL Eosinophils # (Auto) 0.06 K/uL Basophils # (Auto) 0.02 K/uL RDW Standard Deviation 56.4 fL RDW Coefficient of Variation 17.9 % Immature Granulocyte % (Auto) 7.4 % Immature Granulocyte # (Auto) 0.66 K/uL Nucleated RBC Absolute Count (auto) 0.30 K/uL Nucleated Red Blood Cells % 3.4 % Toxic Granulation 3+ Platelet Estimate DECREASED Schistocytes 1+ Sodium Level 142 mmol/L Potassium Level 4.3 mmol/L Chloride Level 119 mmol/L Carbon Dioxide Level 18 mmol/L Anion Gap 5.0 mmol/L Blood Urea Nitrogen 72 mg/dl Creatinine 2.30 mg/dl Est Creatinine Clear Calc Drug Dose 28.8 ml/min Estimated GFR () 26.8 Estimated GFR (Non- 23.2 BUN/Creatinine Ratio 31.2 Random Glucose 108 mg/dl Calcium Level 7.3 mg/dl Magnesium Level 2.1 mg/dl Assessment & Plan 56-year-old female with chronic multiple medical comorbidities who now presents with acute hemorrhagic colitis with positive blood cultures for E coli. Lack of Shiga toxin does speak against toxigenic E coli, and it is possible patient has multi system disease from E coli sepsis from severe colitis of other etiology. given positive blood cultures, I would favor use of antibiotics, and his isolate is Cipro sensitive, could treat with oral ciprofloxacin for 14 days. Will discuss with all involved.
[2017-03-15 16:15] VITALS: BP 145/97; PULSE 90; TEMP 36.8; O2SAT 96
--- NOTE | 2017-03-15 18:29 | Progress Note ---
Internal Med Progress Note Date of Service: Mar 15, 2017. Provider Documentation: SUBJECTIVE: still has bloody diarrhea butis somewhat better abdominal pain is better today 'afebrile tolerating soft diet no nausea no sob OBJECTIVE: Vital Signs-as noted below Exam: General-alert and oriented. Not in distress ENT-normal hearing Neck-no neck masses Lungs-cta b/l no wheezing bibasilar crackles present Heart-s1 and s2 heard regular rhythm, no murmurs Abdomen-soft bowel sounds present mild diffuse tender no distension Extremities no edema present no erythema Neuro-alert and oriented moves extremities Lab data as noted below. ASSESSMENT & PLAN: SEPSIS AND LOWER GI BLEED DUE TO COLITIS Bacteremia multi organ disease from e.coli presenting with 2 weeks of bloody diarrhea; in the ED, found to have severe right sided colitis on CT meets sepsis criteria: WBC 15K, tachycardia; BP stable, lactic acid normal was on Azactam, cipro and flagyl blood cx e.coli ryan sensitive ID ok for cipro and to complete 14day course since shiga toxin negate and also bacteremia mostlikely not toxigenic e.coli as per ID and recommends abx usage ARF presenting with creat 3.8 (baseline 1.) cr 2.3 today on fluids slow improvement consulted nephrology will f/u labs THROMBOCYTOPENIA likely due to sepsis HUS? due to ARF with toxigenic E. Coli with colitis - peripheral smear shows schistocytes platelets improved to 61 supportive care will f/u labs Bloody diarrhea supportive care will monitor Anemia acute blood loss from above hb 8.0 03/14/17 Transfused one unit of prbc hb 8.6 today HX NSVT on Verapamil ASTHMA no signs of acute exacerbation to continue home inhalers MIGRAINES to continue home meds, PRN Nucynta HYPOTHYROIDISM on levothyroxine DVT PROPHYLAXIS SCDs due to thrombocytopenia DISPOSITION transferred to medical floor to be determined Vital Signs: Date Time Temp Pulse Resp B/P (MAP) Pulse Ox O2 Delivery O2 Flow Rate FiO2 03/15/17 16:15 36.8 90 18 145/97 (113) 96 Room Air 03/15/17 14:57 36.9 90 18 100 03/15/17 12:00 Room Air 03/15/17 10:48 36.9 90 18 148/84 (105) 100 Room Air 03/15/17 08:00 Room Air 03/15/17 07:06 36.8 84 16 135/90 (105) 99 Room Air 03/15/17 04:02 36.6 84 17 132/86 (101) 97 Room Air 03/15/17 04:02 Room Air 03/15/17 00:00 Room Air 03/14/17 23:59 36.7 84 18 127/85 (99) 99 Room Air 03/14/17 20:22 37.0 94 18 132/82 (99) 98 Room Air 03/14/17 20:00 Room Air Lab Results: Results Past 24 Hours Test 03/15/17 04:53 Range/Units White Blood Count 8.94 4.8-10.8 K/uL Red Blood Count 2.82 4.2-5.4 M/uL Hemoglobin 8.6 12.0-16.0 g/dL Hematocrit 25.3 37-47 % Mean Corpuscular Volume 89.7 80-100 fL Mean Corpuscular Hemoglobin 30.5 25-34 pg Mean Corpuscular Hemoglobin Concent 34.0 32-36 g/dl Platelet Count 61 130-400 K/uL Neutrophils (%) (Auto) 63.6 % Lymphocytes (%) (Auto) 18.1 % Monocytes (%) (Auto) 10.0 % Eosinophils (%) (Auto) 0.7 % Basophils (%) (Auto) 0.2 % Neutrophils # (Auto) 5.69 1.4-6.5 K/uL Lymphocytes # (Auto) 1.62 1.2-3.4 K/uL Monocytes # (Auto) 0.89 0.11-0.59 K/uL Eosinophils # (Auto) 0.06 0-0.5 K/uL Basophils # (Auto) 0.02 0-0.2 K/uL RDW Standard Deviation 56.4 36.4-46.3 fL RDW Coefficient of Variation 17.9 11.5-14.5 % Immature Granulocyte % (Auto) 7.4 % Immature Granulocyte # (Auto) 0.66 0.00-0.02 K/uL Nucleated RBC Absolute Count (auto) 0.30 0-0 K/uL Nucleated Red Blood Cells % 3.4 % Toxic Granulation 3+ Platelet Estimate DECREASED Schistocytes 1+ Sodium Level 142 136-145 mmol/L Potassium Level 4.3 3.5-5.1 mmol/L Chloride Level 119 98-107 mmol/L Carbon Dioxide Level 18 21-32 mmol/L Anion Gap 5.0 3-11 mmol/L Blood Urea Nitrogen 72 7-18 mg/dl Creatinine 2.30 0.60-1.20 mg/dl Est Creatinine Clear Calc Drug Dose 28.8 ml/min Estimated GFR () 26.8 Estimated GFR (Non- 23.2 BUN/Creatinine Ratio 31.2 10-20 Random Glucose 108 70-99 mg/dl Calcium Level 7.3 8.5-10.1 mg/dl Magnesium Level 2.1 1.8-2.4 mg/dl
[2017-03-15] MEDS: CIPROFLOXACIN / D5W 400 MG in PREMIXED IN D5W 200 ML IV SCH (19:42)
[2017-03-15] MEDS: FEXOFENADINE HCL 180 MG TAB PO SCH (19:53)
[2017-03-15 19:55] VITALS: BP 154/100; PULSE 88
[2017-03-15] MEDS: ROPINIROLE HCL 1 MG TAB PO SCH (19:55)
[2017-03-15] MEDS: AMITRIPTYLINE HCL 25 MG TAB PO SCH (19:55)
[2017-03-15] MEDS: MONTELUKAST SOD 10 MG TAB PO SCH (19:56)
[2017-03-15] MEDS: ONDANSETRON INJ 2 MG/ML 2 ML VIAL IV PRN (23:52)
[2017-03-16 00:20] VITALS: BP 131/84; PULSE 89; TEMP 36.6; O2SAT 100
[2017-03-16] MEDS: MoRPHine SULFATE 4 MG/ML 1 ML CARP\\VIAL IV PRN ×3 (05:47→20:26)
[2017-03-16] MEDS: LEVOTHYROXINE 100 MCG TAB PO SCH (05:49)
[2017-03-16] MEDS: SUCRALFATE 1 GM TAB PO SCH ×4 (05:50→20:29)
[2017-03-16 06:52] LABS: BUN/CREATININE RATIO 30.4 (10-20); CALCIUM 8.1 mg/dl (8.5-10.1); CREATININE 1.9 mg/dl (0.60-1.20); POTASSIUM 4.1 mmol/L (3.5-5.1)
[2017-03-16 07:10] LABS: MEAN CELL VOLUME 91.2 fL (80-100); MEAN CORPUSCULAR HEMOGLOBIN 29.8 pg (25-34); MEAN CORPUSCULAR HGB CONC 32.7 g/dl (32-36); PLATELET COUNT 155 K/uL (130-400); RED BLOOD COUNT 2.85 M/uL (4.2-5.4); WHITE BLOOD COUNT 11.07 K/uL (4.8-10.8)
[2017-03-16 07:16] LABS: ACANTHOCYTES 1+; ANISOCYTOSIS PRESENT; BASO % 0.2 %; BASO ABS # 0.02 K/uL (0-0.2); COMPLETE YES; ECHINOCYTES 1+; EOS % 0.5 %; HOWELL-JOLLY BODIES 1+; IG% 7.7 %; LYMPH % 14.6 %; LYMPH ABS # 1.62 K/uL (1.2-3.4); MONO % 8.9 %; NEUT % 68.1 %; PLT ESTIMATE NORMAL; SCHISTOCYTES 2+; SPHEROCYTE 1+; TOXIC GRANULATION 3+
[2017-03-16 08:18] VITALS: BP 121/77; PULSE 88; TEMP 36.9; O2SAT 94
--- NOTE | 2017-03-16 08:52 | Gastroenterology Progress Note ---
Progress Note Date of Service: Mar 16, 2017 Subjective Pt evaluation today including: conversation w/ patient, physical exam, chart review Pt was seen and evaluated, chart reviewed. ABX were restarted by ID. Pt tells me from a GI standpoint she is feeling much better. Has had two BMs since eval yesterday, one was liquid with scant blood. Most recent BM was semi-solid without bleeding. Abdominal pain greatly improved. No fever, chills, CP, SOB. Tolerating diet Review of Systems Respiratory: No shortness of breath Cardiac: No chest pain Abdomen: No pain, No nausea, No vomiting, No diarrhea, No constipation, No GI bleeding Medications Current Inpatient Medications Medications (Trade) Dose Ordered Sig/Zo Route Start Time Stop Time Status Last Admin Dose Admin Ioversol (Optiray 320) 100 ml UD PRN IV 03/12/17 12:15 03/16/17 12:14 Acetaminophen (Tylenol Tab) 650 mg Q4H PRN PO 03/12/17 14:30 04/11/17 14:29 03/14/17 18:19 650 MG Ondansetron HCl (Zofran Inj) 4 mg Q6H PRN IV 03/12/17 14:30 04/11/17 14:29 03/15/17 23:52 4 MG Sodium Chloride 1,000 ml @ 50 mls/hr Q20H IV 03/12/17 14:30 04/11/17 14:29 03/15/17 17:52 100 MLS/HR Amitriptyline HCl (Elavil Tab) 75 mg HS PO 03/12/17 21:00 04/11/17 20:59 03/15/17 19:55 75 MG Cholecalciferol (Vitamin D Tab) 2,000 inter.unit DAILY PO 03/13/17 09:00 04/12/17 08:59 03/15/17 07:36 2,000 INTER.UNIT Ferrous Sulfate (Feosol Tab) 325 mg QIDM PO 03/12/17 16:45 04/11/17 16:44 03/15/17 19:53 325 MG Fexofenadine HCl (Yuliya Tab) 180 mg HS PO 03/12/17 21:00 04/11/17 20:59 03/15/17 19:53 180 MG Levalbuterol (Xopenex 1.25MG/ 3ML Neb) 1.25 mg TID PRN INH 03/12/17 15:15 04/11/17 15:14 Levothyroxine Sodium (Synthroid Tab) 100 mcg DAILYBB PO 03/13/17 06:00 04/12/17 05:59 03/16/17 05:49 100 MCG Montelukast Sodium (Singulair Tab) 10 mg HS PO 03/12/17 21:00 04/11/17 20:59 03/15/17 19:56 10 MG Multivitamins (Multivitamin Tab) 1 tab QAM PO 03/13/17 09:00 04/12/17 08:59 03/15/17 07:37 1 TAB Ranitidine HCl (zANTac TAB) 150 mg QAM PO 03/13/17 09:00 04/12/17 08:59 03/15/17 07:37 150 MG Ropinirole HCl (Requip Tab) 1.5 mg HS PO 03/12/17 21:00 04/11/17 20:59 03/15/17 19:55 1.5 MG Sucralfate (Carafate Tab) 1 gm ACHS PO 03/12/17 16:15 04/11/17 16:14 03/16/17 05:50 1 GM Topiramate (Topamax Tab) 100 mg BID PO 03/12/17 21:00 04/11/17 20:59 03/15/17 19:53 100 MG Verapamil HCl (Isoptin Tab) 40 mg BID PO 03/12/17 21:00 04/11/17 20:59 03/15/17 19:54 40 MG Pantoprazole Sodium (Protonix Tab) 40 mg BID PO 03/12/17 21:00 04/11/17 20:59 03/15/17 19:54 40 MG Tapentadol (Nucynta Tab) 100 mg Q6H PRN PO 03/12/17 15:15 04/11/17 15:14 03/15/17 07:36 100 MG Miscellaneous Information (Order Awaiting Action) 1 ea DAILY@0600 N/A 03/12/17 18:00 04/11/17 17:59 Morphine Sulfate (MoRPHine SULFATE INJ) 4 mg Q6H PRN IV 03/13/17 04:30 03/27/17 04:29 03/16/17 05:47 4 MG Ciprofloxacin/ Dextrose 400 mg/ Prmx 200 ml @ 100 mls/hr DAILY@1999 IV 03/13/17 20:00 03/23/17 19:59 03/15/17 19:42 100 MLS/HR Ciprofloxacin (Consult) 1 ea UD PRN N/A 03/13/17 19:30 04/12/17 19:29 Heparin Sodium (Porcine) (Heparin 100 Unit/ml 5ml Flush) 5 ml PRN PRN IV 03/14/17 01:00 04/13/17 00:59 Dicyclomine HCl (Bentyl Tab) 10 mg BID PO 03/16/17 08:00 04/15/17 07:59 UNV Objective Vital Signs Date Time Temp Pulse Resp B/P (MAP) Pulse Ox O2 Delivery O2 Flow Rate FiO2 03/16/17 08:18 36.9 88 18 121/77 (92) 94 Room Air 03/16/17 00:20 36.6 89 18 131/84 (100) 100 Room Air 03/16/17 00:00 Room Air 03/15/17 20:00 Room Air 03/15/17 19:55 88 154/100 (118) 03/15/17 16:15 36.8 90 18 145/97 (113) 96 Room Air 03/15/17 14:57 36.9 90 18 100 03/15/17 12:00 Room Air 03/15/17 10:48 36.9 90 18 148/84 (105) 100 Room Air Physical Exam General Appearance: no apparent distress Eyes: PERRL ENT: hearing grossly normal Respiratory/Chest: normal breath sounds Cardiovascular: regular rate, rhythm Abdomen: normal bowel sounds, soft, no organomegaly, no pulsatile mass, + tenderness (mild lower quadrant tenderness) Neurologic/Psych: alert, normal mood/affect, oriented x 3 Laboratory Results Last 24 Hours Test 03/16/17 05:35 White Blood Count 11.07 K/uL Red Blood Count 2.85 M/uL Hemoglobin 8.5 g/dL Hematocrit 26.0 % Mean Corpuscular Volume 91.2 fL Mean Corpuscular Hemoglobin 29.8 pg Mean Corpuscular Hemoglobin Concent 32.7 g/dl Platelet Count 155 K/uL Neutrophils (%) (Auto) 68.1 % Lymphocytes (%) (Auto) 14.6 % Monocytes (%) (Auto) 8.9 % Eosinophils (%) (Auto) 0.5 % Basophils (%) (Auto) 0.2 % Neutrophils # (Auto) 7.53 K/uL Lymphocytes # (Auto) 1.62 K/uL Monocytes # (Auto) 0.99 K/uL Eosinophils # (Auto) 0.06 K/uL Basophils # (Auto) 0.02 K/uL RDW Standard Deviation 58.1 fL RDW Coefficient of Variation 19.1 % Immature Granulocyte % (Auto) 7.7 % Immature Granulocyte # (Auto) 0.85 K/uL Nucleated RBC Absolute Count (auto) 0.26 K/uL Nucleated Red Blood Cells % 2.3 % Toxic Granulation 3+ Platelet Estimate NORMAL Anisocytosis PRESENT Spherocytes 1+ Connelly-Lantry Bodies 1+ Echinocytes 1+ Acanthocytes 1+ Schistocytes 2+ Sodium Level 145 mmol/L Potassium Level 4.1 mmol/L Chloride Level 120 mmol/L Carbon Dioxide Level 15 mmol/L Anion Gap 10.0 mmol/L Blood Urea Nitrogen 58 mg/dl Creatinine 1.90 mg/dl Est Creatinine Clear Calc Drug Dose 35.1 ml/min Estimated GFR () 33.8 Estimated GFR (Non- 29.2 BUN/Creatinine Ratio 30.4 Random Glucose 93 mg/dl Calcium Level 8.1 mg/dl Magnesium Level 2.0 mg/dl Assessment and Plan Patient with hematochezia likely related to Enterohemorrhagic E. coli (EHEC) infection. The present recommendations appeared to be withholding antibiotic therapy for patients with this suspected infection. In addition should hemolytic uremic syndrome develop several sources recommend discontinuation of antibiotics and supportive care. The treatment of Enterohemorrhagic E. coli ( EHEC) infection consists of supportive care and monitoring for the development of microangiopathic complications, such as hemolytic-uremic syndrome (HUS). Antiperistaltic agents increase the risk of systemic complications and should be avoided. Hemolytic-uremic syndrome (HUS) is the major systemic complication of EHEC infection. HUS is characterized by the triad of acute renal failure, microangiopathic hemolytic anemia, and non-immune thrombocytopenia; these typically begin 5 to 10 days after the onset of diarrhea. From a GI standpoint, pt is improving. Semi-solid, nonbloody stool this AM. - Monitor H/H and transfuse prn - IVF resuscitation, - Protonix 40mg PO daily - Ok to advance diet as tolerated for soft, bland diet as long as having n/v, increased abd pain. - Colonoscopy in 4-6 weeks - Appreciate ID recs - Appreciate nephro recs - GI to sign off. Please call or reconsult with any additional questions. Thanks ! I saw and evaluated the patient. She notes that he is starting to feel improved today. We appreciate the input from both nephrology and infectious Recommendations Continue supportive care Bentyl twice daily Outpatient colonoscopy in 6-8 weeks Please call with any further questions or concerns
[2017-03-16] MEDS: DICYCLOMINE HCL 20 MG TAB PO SCH ×2 (10:07→20:30)
[2017-03-16] MEDS: CHOLECALCIFEROL 1000 INTER.UNIT TAB PO SCH (10:08)
[2017-03-16] MEDS: PANTOprazole SOD 40 MG TAB PO SCH ×2 (10:09→20:33)
[2017-03-16] MEDS: VERAPAMIL HCL 40 MG TAB PO SCH ×2 (10:09→20:29)
[2017-03-16] MEDS: RANITIDINE HCL 150 MG TAB PO SCH (10:09)
[2017-03-16] MEDS: MULTIVITAMIN TAB PO SCH (10:10)
[2017-03-16] MEDS: FERROUS SULFATE 325 MG TAB PO SCH ×4 (10:10→20:33)
[2017-03-16] MEDS: TOPIRAMATE 100 MG TAB PO SCH ×2 (10:11→20:31)
--- NOTE | 2017-03-16 10:28 | Nephrology Consultation ---
Nephrology Consultation Date of Consultation: Mar 16, 2017. Attending Physician: Dr Coello Requesting Physician: Dr Coello Reason for Consultation: LILLIANA ? HUS History of Present Illness 56 year old female whom I'm asked to evaluate for LILLIANA w/ concern for HUS in setting of E coli bacteremia. She was admitted 03/12 w/ sepsis and lower GI bleed d/t R sided colitis. Blood cultures from admission were + 1/2 for E Coli pansensitive. Stool studies were negative for Shiga toxin. she is being treated w/ oral cipro. Her plt count was 42K on presentation, bottomed out at 31K; today it is back to 155K. Her hgb is mid 8s through this stay. Her presenting creatinine was 3.8; it has gradually trended down to 1.9 today. Her most recent creatinine in [facility] shows creatinine 0.9 in 09/2015, a stable value in 2014 as well. No hx of stones. M w/ CKD 4. Pt does use nsaids regularly , most recently several weeks priro to admission. Pt started on regular diet yesterday and feeling better, tolerating. Past Medical/Surgical History Medical Problems: (1) Chronic Pancreatitis Status: Chronic (2) Depressive Disorder Nec Status: Chronic (3) Lumbago Status: Chronic (4) Lumbar Disc Displacement Status: Chronic (5) Lumbosacral Neuritis Nos Status: Chronic -celiac disease -chronic pancreatitis -sleep apnea -asthma -migraines follows w/ neurology -hypothyroid -GERD/IBS -restless leg syndrome -chronic anemia transfusion dependent w/ indwelling port -lumbosacral neuritis -s/p GLENNY BSO, Family History FH: heart disease FATHER Stroke MOTHER M w CKD 4 Social History Smoking Status: Never Smoker Alcohol Use: none Drug Use: none Allergies Coded Allergies: BEE STING (Verified Allergy, Severe, ANAPHYLAXIS, 03/12/17) Was allergic to earlier IV iron compounds but is currently receiving IV Iron at [facility] Cefaclor (Verified Allergy, Severe, CECLOR - SOB;RASH; UPSET STOMACH, ) Coconut (Verified Allergy, Severe, RASH; SOB, 03/12/17) Iron (Verified Allergy, Severe, SOB,TACHY WITH IV IRON, 03/12/17) Latex (Verified Allergy, Severe, SOB;RASH;BEET RED SKIN; ANAPHYLAXIS, ) Penicillins (Verified Allergy, Severe, SOB;RASH; TONGUE SWELLING; ANAPHYLAXIS, 03/12/17) Sulfa Drugs (Verified Allergy, Severe, SOB;RASH; ANAPHYLAXIS, 03/12/17) Tetracycline (Verified Allergy, Severe, SOB;RASH; N/V, 03/12/17) Lactose (Verified Allergy, Mild, RASH; BLOATING; DIARRHEA; VOMITING, ) Egg (Verified Allergy, Unknown, RASH, 03/12/17) Influenza Vaccine Live (Verified Allergy, Unknown, __, 03/12/17) Quinolones (Verified Allergy, Unknown, ALLERGY TO AVELOX ,CAN TAKE CIPRO OR LEVAQUIN W/O RXN, 03/12/17) Gluten (Verified Adverse Reaction, Unknown, CELIAC'S, 03/12/17) Medications Current Inpatient Medications Medications (Trade) Dose Ordered Sig/Zo Route Start Time Stop Time Status Last Admin Dose Admin Ioversol (Optiray 320) 100 ml UD PRN IV 03/12/17 12:15 03/16/17 12:14 Acetaminophen (Tylenol Tab) 650 mg Q4H PRN PO 03/12/17 14:30 04/11/17 14:29 03/14/17 18:19 650 MG Ondansetron HCl (Zofran Inj) 4 mg Q6H PRN IV 03/12/17 14:30 04/11/17 14:29 03/15/17 23:52 4 MG Sodium Chloride 1,000 ml @ 50 mls/hr Q20H IV 03/12/17 14:30 04/11/17 14:29 03/15/17 17:52 100 MLS/HR Amitriptyline HCl (Elavil Tab) 75 mg HS PO 03/12/17 21:00 04/11/17 20:59 03/15/17 19:55 75 MG Cholecalciferol (Vitamin D Tab) 2,000 inter.unit DAILY PO 03/13/17 09:00 04/12/17 08:59 03/15/17 07:36 2,000 INTER.UNIT Ferrous Sulfate (Feosol Tab) 325 mg QIDM PO 03/12/17 16:45 04/11/17 16:44 03/15/17 19:53 325 MG Fexofenadine HCl (Yuliya Tab) 180 mg HS PO 03/12/17 21:00 04/11/17 20:59 03/15/17 19:53 180 MG Levalbuterol (Xopenex 1.25MG/ 3ML Neb) 1.25 mg TID PRN INH 03/12/17 15:15 04/11/17 15:14 Levothyroxine Sodium (Synthroid Tab) 100 mcg DAILYBB PO 03/13/17 06:00 04/12/17 05:59 03/16/17 05:49 100 MCG Montelukast Sodium (Singulair Tab) 10 mg HS PO 03/12/17 21:00 04/11/17 20:59 03/15/17 19:56 10 MG Multivitamins (Multivitamin Tab) 1 tab QAM PO 03/13/17 09:00 04/12/17 08:59 03/15/17 07:37 1 TAB Ranitidine HCl (zANTac TAB) 150 mg QAM PO 03/13/17 09:00 04/12/17 08:59 03/15/17 07:37 150 MG Ropinirole HCl (Requip Tab) 1.5 mg HS PO 03/12/17 21:00 04/11/17 20:59 03/15/17 19:55 1.5 MG Sucralfate (Carafate Tab) 1 gm ACHS PO 03/12/17 16:15 04/11/17 16:14 03/16/17 05:50 1 GM Topiramate (Topamax Tab) 100 mg BID PO 03/12/17 21:00 04/11/17 20:59 03/15/17 19:53 100 MG Verapamil HCl (Isoptin Tab) 40 mg BID PO 03/12/17 21:00 04/11/17 20:59 03/15/17 19:54 40 MG Pantoprazole Sodium (Protonix Tab) 40 mg BID PO 03/12/17 21:00 04/11/17 20:59 03/15/17 19:54 40 MG Tapentadol (Nucynta Tab) 100 mg Q6H PRN PO 03/12/17 15:15 04/11/17 15:14 03/15/17 07:36 100 MG Miscellaneous Information (Order Awaiting Action) 1 ea DAILY@0600 N/A 03/12/17 18:00 04/11/17 17:59 Morphine Sulfate (MoRPHine SULFATE INJ) 4 mg Q6H PRN IV 03/13/17 04:30 03/27/17 04:29 03/16/17 05:47 4 MG Ciprofloxacin/ Dextrose 400 mg/ Prmx 200 ml @ 100 mls/hr DAILY@2000 IV 03/13/17 20:00 03/23/17 19:59 03/15/17 19:42 100 MLS/HR Ciprofloxacin (Consult) 1 ea UD PRN N/A 03/13/17 19:30 04/12/17 19:29 Heparin Sodium (Porcine) (Heparin 100 Unit/ml 5ml Flush) 5 ml PRN PRN IV 03/14/17 01:00 04/13/17 00:59 Dicyclomine HCl (Bentyl Tab) 10 mg BID PO 03/16/17 08:00 04/15/17 07:59 Home Meds and Scripts Medications Dose Route/Sig Max Daily Dose Days Date Category Dose Instructions Vitamin D3 (Cholecalciferol) 1,000 Unit Tab 2 Tab PO DAILY 30 03/12/17 Reported Levalbuterol HCl (Levalbuterol) 1.25 Mg/3 Ml Nebu 1 Inha INH TID PRN 03/12/17 Reported Incruse Ellipta (Umeclidinium [place]) 62.5 Mcg/Inh Inh 1 Puff INH DAILY 11/07/15 Reported Zantac (Ranitidine HCl) 300 Mg Tab 300 Mg PO BID 11/07/15 Reported Hyoscyamine Sulfate Sr (Hyoscyamine Sulfate) 0.375 Mg Tab 1 Tab PO Q6H PRN 11/07/15 Reported Calan (Verapamil HCl) 40 Mg Tab 40 Mg PO BID 11/07/15 Reported Topamax (Topiramate) 25 Mg Tab 100 Mg PO BID 11/07/15 Reported Carafate (Sucralfate) 1 Gm Tab 1 Gm PO QID 11/07/15 Reported Astelin Nasal [place] (Azelastine Hcl) 200 Sprays/30 Ml [place] 1 Sprays NA BID 04/27/14 Reported Prednisone 20 Mg Tab 20 Mg PO UD PRN 04/27/14 Reported TAKE 2 TABLETS DAILY WITH FOOD FOR 5 DAYS PREDNISONE BURST FOR ASTHMA RESCUE KIT. Dulera 200/5 Mcg (Mometasone Furoate-Formoterol) 1 Aer Aer 2 Aer INH BID 04/27/14 Reported Nucynta (Tapentadol Hcl) 100 Mg Tab 100 Mg PO Q6H PRN 04/27/14 Reported Elavil (Amitriptyline Hcl) 75 Mg Tab 75 Mg PO HS 04/27/14 Reported Synthroid (Levothyroxine Sodium) 100 Mcg Tab 100 Mcg PO QAM 04/27/14 Reported Combivent Respimat (Ipratropium-Albuterol) 1 Aer Aer 1 Puffs INH QID PRN 08/31/13 Reported Nasonex (Mometasone Furoate (Nasal)) 50 Mcg/ Spr 2 Sprays JACKLYN BID 07/06/12 Reported Aspirin Chewable (Aspirin) 81 Mg Chew 81 Mg PO HS 04/10/12 Reported Fe Tabs (Ferrous Sulfate) 325 Mg Tab 325 Mg PO QID 04/10/12 Reported Yuliya (Fexofenadine Hcl) 180 Mg Tab 180 Mg PO HS 04/10/12 Reported Singulair (Montelukast Sodium) 10 Mg Tab 10 Mg PO HS 04/10/12 Reported Multivitamin (Multiple Vitamin) 1 Tab Tab 1 Tab PO QAM 04/10/12 Reported Requip (Ropinirole Hydrochloride) 1 Mg Tab 1.5 Mg PO HS 04/10/12 Reported Aciphex * (Rabeprazole Sodium) 20 Mg Tabcr 40 Mg PO BID 11/06/11 Reported [Home O2] 2 Liters NA HS 12/31/10 Reported WITH CPAP @ HS Zofran Odt * (Ondansetron HCl) 4 Mg Soltab 4 Mg SL Q8H PRN 02/21/10 Reported NAUSEA Epipen * (Epinephrine) 0.3 Mg Inj 0.3 Mg IM UD 02/06/10 Reported Review of Systems Constitutional: + weakness, + fatigue Eyes: No worsening of vision ENT: No hearing loss Respiratory: + shortness of breath, + dyspnea at rest Cardiac: + edema, No chest pain Abdomen: + see HPI, + pain, + diarrhea, + GI bleeding, No nausea, No vomiting Female : + hematuria (not gross hematuria though per pt), No dysuria, No urinary frequency Neuro: No memory loss, No weakness Psych: No depression symptoms, No anxiety Heme: + abnormal bleeding/bruising Endo: + fatigue Skin: No rash, No itch, No new/changing skin lesions Physical Exam Date Time Temp Pulse Resp B/P (MAP) Pulse Ox O2 Delivery O2 Flow Rate FiO2 03/16/17 08:18 36.9 88 18 121/77 (92) 94 Room Air 03/16/17 00:20 36.6 89 18 131/84 (100) 100 Room Air 03/16/17 00:00 Room Air 03/15/17 20:00 Room Air 03/15/17 19:55 88 154/100 (118) 03/15/17 16:15 36.8 90 18 145/97 (113) 96 Room Air 03/15/17 14:57 36.9 90 18 100 03/15/17 12:00 Room Air 03/15/17 10:48 36.9 90 18 148/84 (105) 100 Room Air General Appearance: WD/WN, no apparent distress (on RA maneuvers readily for exma) Eyes: EOMI ENT: hearing grossly normal Neck: supple Respiratory/Chest: lungs clear, + decreased breath sounds Cardiovascular: regular rate, rhythm, no edema Abdomen: normal bowel sounds, soft, + tenderness (BLQ w/o rebound or guarding; no tobias) Extremities: normal inspection Neurologic/Psych: alert, normal mood/affect, oriented x 3 Skin: warm/dry, no rash Diagnostics Last 24 Hours Test 03/16/17 05:35 White Blood Count 11.07 K/uL Red Blood Count 2.85 M/uL Hemoglobin 8.5 g/dL Hematocrit 26.0 % Mean Corpuscular Volume 91.2 fL Mean Corpuscular Hemoglobin 29.8 pg Mean Corpuscular Hemoglobin Concent 32.7 g/dl Platelet Count 155 K/uL Neutrophils (%) (Auto) 68.1 % Lymphocytes (%) (Auto) 14.6 % Monocytes (%) (Auto) 8.9 % Eosinophils (%) (Auto) 0.5 % Basophils (%) (Auto) 0.2 % Neutrophils # (Auto) 7.53 K/uL Lymphocytes # (Auto) 1.62 K/uL Monocytes # (Auto) 0.99 K/uL Eosinophils # (Auto) 0.06 K/uL Basophils # (Auto) 0.02 K/uL RDW Standard Deviation 58.1 fL RDW Coefficient of Variation 19.1 % Immature Granulocyte % (Auto) 7.7 % Immature Granulocyte # (Auto) 0.85 K/uL Nucleated RBC Absolute Count (auto) 0.26 K/uL Nucleated Red Blood Cells % 2.3 % Toxic Granulation 3+ Platelet Estimate NORMAL Anisocytosis PRESENT Spherocytes 1+ [place] Bodies 1+ Echinocytes 1+ Acanthocytes 1+ Schistocytes 2+ Sodium Level 145 mmol/L Potassium Level 4.1 mmol/L Chloride Level 120 mmol/L Carbon Dioxide Level 15 mmol/L Anion Gap 10.0 mmol/L Blood Urea Nitrogen 58 mg/dl Creatinine 1.90 mg/dl Est Creatinine Clear Calc Drug Dose 35.1 ml/min Estimated GFR () 33.8 Estimated GFR (Non- 29.2 BUN/Creatinine Ratio 30.4 Random Glucose 93 mg/dl Calcium Level 8.1 mg/dl Magnesium Level 2.0 mg/dl Diagnostic Radiology: CT abd/pelvis 03/[address] ABD/PELVIS IMPRESSION: 1. Extensive right-sided colonic wall thickening with infiltration of the pericolonic fat. There are additional areas of less pronounced colonic wall thickening. The findings are indicative of a severe nonspecific colitis. 2. Mild left-sided hydronephrosis with a dilated left-sided extrarenal pelvis. There is no ureteral dilatation. 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 19 mm left adrenal adenoma 4. Prominent ileocolic lymph nodes likely reactive 5. Small right pleural effusion 6. No evidence of bowel obstruction cxr 03/12 mild vasc congestion/vol OL; no consolidation 03/12 blood cx 1/2 E coli UACM 03/12 w/ granular and waxy casts; s.g 1025, orange urine w/ > 30 wbc and 1+ blood Assessment & Plan 56 y/o F w/ E coli bacteremia and LILLIANA on unknown baseline renal function who presented with thrombocytopenia, schistocytes in the setting of hemorraghic acute R sided colitis after 3 days of blood bacteremia. Shiga toxin studies on stool are negative. lab reports that sorbitol testing is also positive making it very unlikely that this would be a 157 strain of E coli. LILLIANA on unknown baseline renal function -cont supportive care and daily bmp -repeat uacm -no indication for acute dialysis; will follow closely Sepsis with bacteremia, thrombocytopenia, anemia and schistocytes > clinically improving -recommend treating per ID recommendations w/ cipro; given negative shiga toxin and sorbital +, doubt Shiga. -consider repeat blood cultures and if persistent bacteremia would need TTE; endocarditis can be associated w/ HUS -HUS is generally a diagnosis of exclusion >> severe volume depletion and sepsis can explain low plt counts and renal failure -repeat LDH, haptoglobin, KATIE, direct/indirect bilirubin; CBC/D for am -f/u GI and ID recs Appreciate consult; will coordinate w/ Dr Coello.
[2017-03-16 10:58] VITALS: PULSE 89; O2SAT 97
[2017-03-16] MEDS: LEVALBUTEROL 1.25MG/3ML NEB INH PRN (10:58)
[2017-03-16] MEDS: SODIUM CHLORIDE 0.9% 1000ML 1,000 ML IV SCH (13:15)
[2017-03-16] MEDS: TAPENTADOL HCL 50 MG TAB PO PRN (16:10)
[2017-03-16] MEDS: ONDANSETRON INJ 2 MG/ML 2 ML VIAL IV PRN (16:10)
[2017-03-16 16:11] VITALS: BP 133/83; PULSE 66; TEMP 36.8; O2SAT 95
--- NOTE | 2017-03-16 17:10 | Progress Note ---
Internal Med Progress Note Date of Service: Mar 16, 2017. Provider Documentation: SUBJECTIVE: still has some diarrhea but no blood in stools abdominal pain is better feeling better afebrile no nausea no sob OBJECTIVE: Vital Signs-as noted below Exam: General-alert and oriented. Not in distress ENT-normal hearing Neck-no neck masses Lungs-cta b/l no wheezing mild bibasilar crackles present Heart-s1 and s2 heard regular rhythm, no murmurs Abdomen-soft bowel sounds present mild diffuse tender no distension Extremities no edema present no erythema Neuro-alert and oriented moves extremities Lab data as noted below. ASSESSMENT & PLAN: SEPSIS AND LOWER GI BLEED DUE TO COLITIS Bacteremia multi organ disease from e.coli presenting with 2 weeks of bloody diarrhea; in the ED, found to have severe right sided colitis on CT meets sepsis criteria: WBC 15K, tachycardia; BP stable, lactic acid normal was on Azactam, cipro and flagyl blood cx e.coli ryan sensitive ID ok for cipro and to complete 14day course since shiga toxin negate and also bacteremia mostlikely not toxigenic e.coli as per ID and recommends abx usage improving ARF presenting with creat 3.8 (baseline 1.) cr 1.9 today on gentle fluids slow improvement consulted nephrology and appreciate inputs will f/u labs THROMBOCYTOPENIA likely due to sepsis HUS? due to ARF with toxigenic E. Coli with colitis - peripheral smear shows schistocytes platelets improved to 155 today supportive care will f/u labs Bloody diarrhea supportive care improving will monitor Anemia acute blood loss from above hb 8.0 03/14/17 Transfused one unit of prbc hb 8.5 today HX NSVT on Verapamil ASTHMA no signs of acute exacerbation to continue home inhalers MIGRAINES to continue home meds, PRN Nucynta HYPOTHYROIDISM on levothyroxine DVT PROPHYLAXIS SCDs due to thrombocytopenia DISPOSITION to be determined pt/ot Vital Signs: Date Time Temp Pulse Resp B/P (MAP) Pulse Ox O2 Delivery O2 Flow Rate FiO2 03/16/17 16:11 36.8 66 18 133/83 (100) 95 Room Air 03/16/17 16:00 Room Air 03/16/17 10:58 89 18 97 Room Air 03/16/17 08:30 Room Air 03/16/17 08:18 36.9 88 18 121/77 (92) 94 Room Air 03/16/17 00:20 36.6 89 18 131/84 (100) 100 Room Air 03/16/17 00:00 Room Air 03/15/17 20:00 Room Air 03/15/17 19:55 88 154/100 (118) Lab Results: Results Past 24 Hours Test 03/16/17 05:35 Range/Units White Blood Count 11.07 4.8-10.8 K/uL Red Blood Count 2.85 4.2-5.4 M/uL Hemoglobin 8.5 12.0-16.0 g/dL Hematocrit 26.0 37-47 % Mean Corpuscular Volume 91.2 80-100 fL Mean Corpuscular Hemoglobin 29.8 25-34 pg Mean Corpuscular Hemoglobin Concent 32.7 32-36 g/dl Platelet Count 155 130-400 K/uL Neutrophils (%) (Auto) 68.1 % Lymphocytes (%) (Auto) 14.6 % Monocytes (%) (Auto) 8.9 % Eosinophils (%) (Auto) 0.5 % Basophils (%) (Auto) 0.2 % Neutrophils # (Auto) 7.53 1.4-6.5 K/uL Lymphocytes # (Auto) 1.62 1.2-3.4 K/uL Monocytes # (Auto) 0.99 0.11-0.59 K/uL Eosinophils # (Auto) 0.06 0-0.5 K/uL Basophils # (Auto) 0.02 0-0.2 K/uL RDW Standard Deviation 58.1 36.4-46.3 fL RDW Coefficient of Variation 19.1 11.5-14.5 % Immature Granulocyte % (Auto) 7.7 % Immature Granulocyte # (Auto) 0.85 0.00-0.02 K/uL Nucleated RBC Absolute Count (auto) 0.26 0-0 K/uL Nucleated Red Blood Cells % 2.3 % Toxic Granulation 3+ Platelet Estimate NORMAL Anisocytosis PRESENT Spherocytes 1+ [place] Bodies 1+ Echinocytes 1+ Acanthocytes 1+ Schistocytes 2+ Sodium Level 145 136-145 mmol/L Potassium Level 4.1 3.5-5.1 mmol/L Chloride Level 120 98-107 mmol/L Carbon Dioxide Level 15 21-32 mmol/L Anion Gap 10.0 3-11 mmol/L Blood Urea Nitrogen 58 7-18 mg/dl Creatinine 1.90 0.60-1.20 mg/dl Est Creatinine Clear Calc Drug Dose 35.1 ml/min Estimated GFR () 33.8 Estimated GFR (Non- 29.2 BUN/Creatinine Ratio 30.4 10-20 Random Glucose 93 70-99 mg/dl Calcium Level 8.1 8.5-10.1 mg/dl Magnesium Level 2.0 1.8-2.4 mg/dl
[2017-03-16] MEDS: FEXOFENADINE HCL 180 MG TAB PO SCH (20:30)
[2017-03-16] MEDS: MONTELUKAST SOD 10 MG TAB PO SCH (20:31)
[2017-03-16] MEDS: ROPINIROLE HCL 1 MG TAB PO SCH (20:31)
[2017-03-16] MEDS: AMITRIPTYLINE HCL 25 MG TAB PO SCH (20:32)
[2017-03-16] MEDS: CIPROFLOXACIN / D5W 400 MG in PREMIXED IN D5W 200 ML IV SCH (21:40)
[2017-03-16 23:45] VITALS: BP 119/76; PULSE 89; TEMP 36.9; O2SAT 99
[2017-03-17 00:15] VITALS: O2SAT 97
[2017-03-17] MEDS: MoRPHine SULFATE 4 MG/ML 1 ML CARP\\VIAL IV PRN ×4 (03:23→22:17)
[2017-03-17] MEDS: LEVOTHYROXINE 100 MCG TAB PO SCH (06:09)
[2017-03-17] MEDS: SUCRALFATE 1 GM TAB PO SCH ×4 (06:09→21:19)
[2017-03-17 06:28] LABS: HEMATOCRIT 24.2 % (37-47); MEAN CELL VOLUME 91.7 fL (80-100); MEAN CORPUSCULAR HEMOGLOBIN 30.3 pg (25-34); MEAN CORPUSCULAR HGB CONC 33.1 g/dl (32-36); MEAN PLATELET VOLUME 11.1 fL (7.4-10.4); PLATELET COUNT 227 K/uL (130-400); RED BLOOD COUNT 2.64 M/uL (4.2-5.4); WHITE BLOOD COUNT 10.23 K/uL (4.8-10.8)
[2017-03-17 07:04] LABS: ANISOCYTOSIS PRESENT; BASO % 0.2 %; BASO ABS # 0.02 K/uL (0-0.2); COMPLETE YES; ECHINOCYTES 1+; EOS % 0.6 %; IG% 5.6 %; LYMPH % 15.9 %; LYMPH ABS # 1.63 K/uL (1.2-3.4); MONO % 7.8 %; NEUT % 69.9 %; POIKILOCYTOSIS PRESENT; SCHISTOCYTES 2+; TOXIC GRANULATION 2+
[2017-03-17 07:06] LABS: BUN/CREATININE RATIO 24.4 (10-20); CALCIUM 7.8 mg/dl (8.5-10.1); CREATININE 1.9 mg/dl (0.60-1.20); POTASSIUM 4.1 mmol/L (3.5-5.1)
[2017-03-17] MEDS: ONDANSETRON INJ 2 MG/ML 2 ML VIAL IV PRN ×3 (07:49→22:16)
[2017-03-17 07:50] VITALS: BP 132/84; PULSE 87; TEMP 36.5; O2SAT 100
[2017-03-17] MEDS: DICYCLOMINE HCL 20 MG TAB PO SCH ×2 (07:52→21:16)
[2017-03-17] MEDS: VERAPAMIL HCL 40 MG TAB PO SCH ×2 (07:53→21:18)
[2017-03-17] MEDS: MULTIVITAMIN TAB PO SCH (07:53)
[2017-03-17] MEDS: FERROUS SULFATE 325 MG TAB PO SCH ×4 (07:53→21:17)
[2017-03-17] MEDS: PANTOprazole SOD 40 MG TAB PO SCH ×2 (07:54→21:17)
[2017-03-17] MEDS: TOPIRAMATE 100 MG TAB PO SCH ×2 (07:54→21:17)
[2017-03-17] MEDS: CHOLECALCIFEROL 1000 INTER.UNIT TAB PO SCH (07:54)
[2017-03-17] MEDS: RANITIDINE HCL 150 MG TAB PO SCH (07:55)
[2017-03-17 09:32] VITALS: PULSE 93; O2SAT 100
[2017-03-17] MEDS: LEVALBUTEROL 1.25MG/3ML NEB INH PRN (09:32)
[2017-03-17] MEDS ORDERED: SODIUM BICARBONATE 650 MG TAB PO ONE (11:30)
--- NOTE | 2017-03-17 11:40 | Nephrology Progress Note ---
Nephrology Progress Note Date of Service: Mar 17, 2017. Subjective no acute interval events clinically; slept well; abd pain ok; some bm (2 yesterday) but not excessive and no blood; eating well Objective Date Time Temp Pulse Resp B/P (MAP) Pulse Ox O2 Delivery O2 Flow Rate FiO2 03/17/17 09:32 93 18 100 Room Air 03/17/17 07:50 36.5 87 18 132/84 (100) 100 Room Air 03/17/17 00:15 97 Room Air 03/16/17 23:45 36.9 89 18 119/76 (90) 99 Room Air 03/16/17 16:11 36.8 66 18 133/83 (100) 95 Room Air 03/16/17 16:00 Room Air Physical Exam: General Appearance: WD/WN, no apparent distress (on RA maneuvers readily for exam) Eyes: EOMI ENT: hearing grossly normal Neck: supple Respiratory/Chest: lungs clear, + decreased breath sounds Cardiovascular: regular rate, rhythm, no edema Abdomen: normal bowel sounds, soft, + tenderness (still BLQ w/o rebound or guarding; no tobias) Extremities: normal inspection Neurologic/Psych: alert, normal mood/affect, oriented x 3 Skin: warm/dry, no rash Current Inpatient Medications Medications (Trade) Dose Ordered Sig/Zo Route Start Time Stop Time Status Last Admin Dose Admin Acetaminophen (Tylenol Tab) 650 mg Q4H PRN PO 03/12/17 14:30 04/11/17 14:29 03/14/17 18:19 650 MG Ondansetron HCl (Zofran Inj) 4 mg Q6H PRN IV 03/12/17 14:30 04/11/17 14:29 03/17/17 07:49 4 MG Sodium Chloride 1,000 ml @ 50 mls/hr Q20H IV 03/12/17 14:30 04/11/17 14:29 03/16/17 13:15 50 MLS/HR Amitriptyline HCl (Elavil Tab) 75 mg HS PO 03/12/17 21:00 04/11/17 20:59 03/16/17 20:32 75 MG Cholecalciferol (Vitamin D Tab) 2,000 inter.unit DAILY PO 03/13/17 09:00 04/12/17 08:59 03/17/17 07:54 2,000 INTER.UNIT Ferrous Sulfate (Feosol Tab) 325 mg QIDM PO 03/12/17 16:45 04/11/17 16:44 03/17/17 07:53 325 MG Fexofenadine HCl (Yuliya Tab) 180 mg HS PO 03/12/17 21:00 04/11/17 20:59 03/16/17 20:30 180 MG Levalbuterol (Xopenex 1.25MG/ 3ML Neb) 1.25 mg TID PRN INH 03/12/17 15:15 04/11/17 15:14 03/17/17 09:32 1.25 MG Levothyroxine Sodium (Synthroid Tab) 100 mcg DAILYBB PO 03/13/17 06:00 04/12/17 05:59 03/17/17 06:09 100 MCG Montelukast Sodium (Singulair Tab) 10 mg HS PO 03/12/17 21:00 04/11/17 20:59 03/16/17 20:31 10 MG Multivitamins (Multivitamin Tab) 1 tab QAM PO 03/13/17 09:00 04/12/17 08:59 03/17/17 07:53 1 TAB Ranitidine HCl (zANTac TAB) 150 mg QAM PO 03/13/17 09:00 04/12/17 08:59 03/17/17 07:55 150 MG Ropinirole HCl (Requip Tab) 1.5 mg HS PO 03/12/17 21:00 04/11/17 20:59 03/16/17 20:31 1.5 MG Sucralfate (Carafate Tab) 1 gm ACHS PO 03/12/17 16:15 04/11/17 16:14 03/17/17 06:09 1 GM Topiramate (Topamax Tab) 100 mg BID PO 03/12/17 21:00 04/11/17 20:59 03/17/17 07:54 100 MG Verapamil HCl (Isoptin Tab) 40 mg BID PO 03/12/17 21:00 04/11/17 20:59 03/17/17 07:53 40 MG Pantoprazole Sodium (Protonix Tab) 40 mg BID PO 03/12/17 21:00 04/11/17 20:59 03/17/17 07:54 40 MG Tapentadol (Nucynta Tab) 100 mg Q6H PRN PO 03/12/17 15:15 04/11/17 15:14 03/16/17 16:10 100 MG Miscellaneous Information (Order Awaiting Action) 1 ea DAILY@0600 N/A 03/12/17 18:00 04/11/17 17:59 Morphine Sulfate (MoRPHine SULFATE INJ) 4 mg Q6H PRN IV 03/13/17 04:30 03/27/17 04:29 03/17/17 10:03 4 MG Ciprofloxacin/ Dextrose 400 mg/ Prmx 200 ml @ 100 mls/hr DAILY@2000 IV 03/13/17 20:00 03/23/17 19:59 03/16/17 21:40 100 MLS/HR Ciprofloxacin (Consult) 1 ea UD PRN N/A 03/13/17 19:30 04/12/17 19:29 Heparin Sodium (Porcine) (Heparin 100 Unit/ml 5ml Flush) 5 ml PRN PRN IV 03/14/17 01:00 04/13/17 00:59 Dicyclomine HCl (Bentyl Tab) 10 mg BID PO 03/16/17 08:00 04/15/17 07:59 03/17/17 07:52 10 MG Last 24 Hours Test 03/17/17 06:03 White Blood Count 10.23 K/uL Red Blood Count 2.64 M/uL Hemoglobin 8.0 g/dL Hematocrit 24.2 % Mean Corpuscular Volume 91.7 fL Mean Corpuscular Hemoglobin 30.3 pg Mean Corpuscular Hemoglobin Concent 33.1 g/dl Platelet Count 227 K/uL Mean Platelet Volume 11.1 fL Neutrophils (%) (Auto) 69.9 % Lymphocytes (%) (Auto) 15.9 % Monocytes (%) (Auto) 7.8 % Eosinophils (%) (Auto) 0.6 % Basophils (%) (Auto) 0.2 % Neutrophils # (Auto) 7.15 K/uL Lymphocytes # (Auto) 1.63 K/uL Monocytes # (Auto) 0.80 K/uL Eosinophils # (Auto) 0.06 K/uL Basophils # (Auto) 0.02 K/uL RDW Standard Deviation 58.7 fL RDW Coefficient of Variation 19.9 % Immature Granulocyte % (Auto) 5.6 % Immature Granulocyte # (Auto) 0.57 K/uL Nucleated RBC Absolute Count (auto) 0.15 K/uL Nucleated Red Blood Cells % 1.4 % Toxic Granulation 2+ Poikilocytosis PRESENT Anisocytosis PRESENT Echinocytes 1+ Schistocytes 2+ Sodium Level 145 mmol/L Potassium Level 4.1 mmol/L Chloride Level 122 mmol/L Carbon Dioxide Level 16 mmol/L Anion Gap 7.0 mmol/L Blood Urea Nitrogen 46 mg/dl Creatinine 1.90 mg/dl Est Creatinine Clear Calc Drug Dose 35.1 ml/min Estimated GFR () 33.8 Estimated GFR (Non- 29.2 BUN/Creatinine Ratio 24.4 Random Glucose 98 mg/dl Calcium Level 7.8 mg/dl Magnesium Level 2.0 mg/dl Assessment & Plan 56 y/o F w/ E coli bacteremia and LILLIANA on unknown baseline renal function who presented with thrombocytopenia, schistocytes in the setting of hemorraghic acute R sided colitis after 3 days of bloody diarrhea. Shiga toxin studies on stool are negative. lab reports that sorbitol testing is also positive making it very unlikely that E coli detected in blood would be a 157 strain of E coli. LILLIANA on unknown baseline renal function; her creatinine has been steadily improving but now plateau'd w/ hyperchloremic metabolic acidosis on bmp -cont supportive care and daily bmp -repeat uacm ordered -started sodium bicarb tabs tid -changed NS to 1/2 NS at slightly faster rate 75 mL/hr -at this time blood gas not indicated to characterize acid base disorder further -no indication for acute dialysis; will follow closely; no renal bx indicated at this time since she is improving Sepsis with bacteremia, thrombocytopenia, anemia and schistocytes > clinically improving -recommend treating per ID recommendations w/ cipro; given negative shiga toxin and sorbital +, doubt Shiga. -consider repeat blood cultures and if persistent bacteremia would need TTE; endocarditis can be associated w/ HUS -HUS less likely here; severe volume depletion and sepsis can explain low plt counts and renal failure -her plts have normalized >> if they worsen again or if anemia worsens w/o explanation, repeat LDH, haptoglobin, KATIE (Yasmin), direct/indirect bilirubin -f/u GI and ID recs Appreciate consult; will coordinate w/ Dr Coello.
[2017-03-17] MEDS: SODIUM CHLORIDE 0.45% 1000ML 1,000 ML IV SCH ×2 (12:18→23:30)
[2017-03-17 14:21] LABS: URINE APPEARANCE CLEAR (CLEAR); URINE BILIRUBIN NEG (NEG); URINE COLOR YELLOW; URINE NITRITE NEG (NEG); URINE SPECIFIC GRAVITY 1.021 (1.000-1.030); UROBILINOGEN NEG (NEG); ZZUR CULT IF INDIC CLEAN CATCH NO
[2017-03-17 14:24] LABS: MANUAL MICROSCOPIC REQUIRED? NO; REVIEW REQ? NO
[2017-03-17 15:50] VITALS: BP 143/90; PULSE 88; TEMP 37.1; O2SAT 100
[2017-03-17] MEDS: CIPROFLOXACIN / D5W 400 MG in PREMIXED IN D5W 200 ML IV SCH (16:12)
[2017-03-17] MEDS: SODIUM BICARBONATE 650 MG TAB PO SCH ×2 (17:06→21:18)
--- NOTE | 2017-03-17 18:24 | Progress Note ---
Internal Med Progress Note Date of Service: Mar 17, 2017. Provider Documentation: SUBJECTIVE: had somewhat formed stools today and no blood in it abdominal pain almost resolved eating fine no fevers no sob but says wheezy OBJECTIVE: Vital Signs-as noted below Exam: General-alert and oriented. Not in distress ENT-normal hearing Neck-no neck masses Lungs-cta b/l no wheezing mild bibasilar crackles present Heart-s1 and s2 heard regular rhythm, no murmurs Abdomen-soft bowel sounds present mild diffuse tender no distension Extremities no edema present no erythema Neuro-alert and oriented moves extremities Lab data as noted below. ASSESSMENT & PLAN: SEPSIS AND LOWER GI BLEED DUE TO COLITIS Bacteremia multi organ disease from e.coli presenting with 2 weeks of bloody diarrhea; in the ED, found to have severe right sided colitis on CT meets sepsis criteria: WBC 15K, tachycardia; BP stable, lactic acid normal was on Azactam, cipro and flagyl blood cx e.coli ryan sensitive ID ok for cipro and to complete 14day course since shiga toxin negate and also bacteremia mostlikely not toxigenic e.coli as per ID and recommends abx usage improving continue same ARF presenting with creat 3.8 (baseline 1.) cr 1.9 today on gentle fluids slow improvement consulted nephrology and appreciate inputs will f/u labs Metabolic acidosis from above a dose of bicarb given THROMBOCYTOPENIA likely due to sepsis HUS? due to ARF with toxigenic E. Coli with colitis - peripheral smear shows schistocytes resolved Bloody diarrhea supportive care resolved Anemia acute blood loss from above hb 8.0 03/14/17 Transfused one unit of prbc hb 8.0 today f/u labs HX NSVT on Verapamil ASTHMA no signs of acute exacerbation to continue home inhalers MIGRAINES to continue home meds, PRN Nucynta HYPOTHYROIDISM on levothyroxine DVT PROPHYLAXIS SCDs due to thrombocytopenia DISPOSITION to be determined pt/ot Vital Signs: Date Time Temp Pulse Resp B/P (MAP) Pulse Ox O2 Delivery O2 Flow Rate FiO2 03/17/17 16:00 Room Air 03/17/17 15:50 37.1 88 18 143/90 (107) 100 Room Air 03/17/17 09:32 93 18 100 Room Air 03/17/17 08:00 Room Air 03/17/17 07:50 36.5 87 18 132/84 (100) 100 Room Air 03/17/17 00:15 97 Room Air 03/16/17 23:45 36.9 89 18 119/76 (90) 99 Room Air Lab Results: Results Past 24 Hours Test 03/17/17 06:03 03/17/17 13:00 Range/Units White Blood Count 10.23 4.8-10.8 K/uL Red Blood Count 2.64 4.2-5.4 M/uL Hemoglobin 8.0 12.0-16.0 g/dL Hematocrit 24.2 37-47 % Mean Corpuscular Volume 91.7 80-100 fL Mean Corpuscular Hemoglobin 30.3 25-34 pg Mean Corpuscular Hemoglobin Concent 33.1 32-36 g/dl Platelet Count 227 130-400 K/uL Mean Platelet Volume 11.1 7.4-10.4 fL Neutrophils (%) (Auto) 69.9 % Lymphocytes (%) (Auto) 15.9 % Monocytes (%) (Auto) 7.8 % Eosinophils (%) (Auto) 0.6 % Basophils (%) (Auto) 0.2 % Neutrophils # (Auto) 7.15 1.4-6.5 K/uL Lymphocytes # (Auto) 1.63 1.2-3.4 K/uL Monocytes # (Auto) 0.80 0.11-0.59 K/uL Eosinophils # (Auto) 0.06 0-0.5 K/uL Basophils # (Auto) 0.02 0-0.2 K/uL RDW Standard Deviation 58.7 36.4-46.3 fL RDW Coefficient of Variation 19.9 11.5-14.5 % Immature Granulocyte % (Auto) 5.6 % Immature Granulocyte # (Auto) 0.57 0.00-0.02 K/uL Nucleated RBC Absolute Count (auto) 0.15 0-0 K/uL Nucleated Red Blood Cells % 1.4 % Toxic Granulation 2+ Poikilocytosis PRESENT Anisocytosis PRESENT Echinocytes 1+ Schistocytes 2+ Sodium Level 145 136-145 mmol/L Potassium Level 4.1 3.5-5.1 mmol/L Chloride Level 122 98-107 mmol/L Carbon Dioxide Level 16 21-32 mmol/L Anion Gap 7.0 3-11 mmol/L Blood Urea Nitrogen 46 7-18 mg/dl Creatinine 1.90 0.60-1.20 mg/dl Est Creatinine Clear Calc Drug Dose 35.1 ml/min Estimated GFR () 33.8 Estimated GFR (Non- 29.2 BUN/Creatinine Ratio 24.4 10-20 Random Glucose 98 70-99 mg/dl Calcium Level 7.8 8.5-10.1 mg/dl Magnesium Level 2.0 1.8-2.4 mg/dl Urine Color YELLOW Urine Appearance CLEAR CLEAR Urine pH 5.0 4.5-7.5 Urine Specific [place] 1.021 1.000-1.030 Urine Protein 2+ NEG Urine Glucose (UA) NEG NEG Urine Ketones NEG NEG Urine Occult Blood 2+ NEG Urine Nitrite NEG NEG Urine Bilirubin NEG NEG Urine Urobilinogen NEG NEG Urine Leukocyte Esterase NEG NEG Urine WBC (Auto) 1-5 0-5 /hpf Urine RBC (Auto) 5-10 0-4 /hpf Urine Hyaline Casts (Auto) 5-10 0-5 /lpf Urine Epithelial Cells (Auto) 10-20 0-5 /lpf Urine Bacteria (Auto) NEG NEG
--- NOTE | 2017-03-17 19:57 | Infectious Disease Progress Nt ---
Progress Note Date of Service Mar 17, 2017. Subjective Pt evaluation today including: conversation w/ patient, physical exam, chart review, lab review, review of studies, conversation w/ compensation consultant, review of inpatient medication list patient feeling better today. Less bleeding, diarrhea has improved. Follow- up cultures negative. Stool studies remain negative. Platelets and renal function improving. All Other Systems: Reviewed and Negative Medications Current Inpatient Medications Medications (Trade) Dose Ordered Sig/Zo Route Start Time Stop Time Status Last Admin Dose Admin Acetaminophen (Tylenol Tab) 650 mg Q4H PRN PO 03/12/17 14:30 04/11/17 14:29 03/14/17 18:19 650 MG Ondansetron HCl (Zofran Inj) 4 mg Q6H PRN IV 03/12/17 14:30 04/11/17 14:29 03/17/17 16:12 4 MG Amitriptyline HCl (Elavil Tab) 75 mg HS PO 03/12/17 21:00 04/11/17 20:59 03/16/17 20:32 75 MG Cholecalciferol (Vitamin D Tab) 2,000 inter.unit DAILY PO 03/13/17 09:00 04/12/17 08:59 03/17/17 07:54 2,000 INTER.UNIT Ferrous Sulfate (Feosol Tab) 325 mg QIDM PO 03/12/17 16:45 04/11/17 16:44 03/17/17 17:05 325 MG Fexofenadine HCl (Yuliya Tab) 180 mg HS PO 03/12/17 21:00 04/11/17 20:59 03/16/17 20:30 180 MG Levalbuterol (Xopenex 1.25MG/ 3ML Neb) 1.25 mg TID PRN INH 03/12/17 15:15 04/11/17 15:14 03/17/17 09:32 1.25 MG Levothyroxine Sodium (Synthroid Tab) 100 mcg DAILYBB PO 03/13/17 06:00 04/12/17 05:59 03/17/17 06:09 100 MCG Montelukast Sodium (Singulair Tab) 10 mg HS PO 03/12/17 21:00 04/11/17 20:59 03/16/17 20:31 10 MG Multivitamins (Multivitamin Tab) 1 tab QAM PO 03/13/17 09:00 04/12/17 08:59 03/17/17 07:53 1 TAB Ranitidine HCl (zANTac TAB) 150 mg QAM PO 03/13/17 09:00 04/12/17 08:59 03/17/17 07:55 150 MG Ropinirole HCl (Requip Tab) 1.5 mg HS PO 03/12/17 21:00 04/11/17 20:59 03/16/17 20:31 1.5 MG Sucralfate (Carafate Tab) 1 gm ACHS PO 03/12/17 16:15 04/11/17 16:14 03/17/17 17:06 1 GM Topiramate (Topamax Tab) 100 mg BID PO 03/12/17 21:00 04/11/17 20:59 03/17/17 07:54 100 MG Verapamil HCl (Isoptin Tab) 40 mg BID PO 03/12/17 21:00 04/11/17 20:59 03/17/17 07:53 40 MG Pantoprazole Sodium (Protonix Tab) 40 mg BID PO 03/12/17 21:00 04/11/17 20:59 03/17/17 07:54 40 MG Tapentadol (Nucynta Tab) 100 mg Q6H PRN PO 03/12/17 15:15 04/11/17 15:14 03/16/17 16:10 100 MG Miscellaneous Information (Order Awaiting Action) 1 ea DAILY@0600 N/A 03/12/17 18:00 04/11/17 17:59 Morphine Sulfate (MoRPHine SULFATE INJ) 4 mg Q6H PRN IV 03/13/17 04:30 03/27/17 04:29 03/17/17 16:12 4 MG Ciprofloxacin (Consult) 1 ea UD PRN N/A 03/13/17 19:30 04/12/17 19:29 Heparin Sodium (Porcine) (Heparin 100 Unit/ml 5ml Flush) 5 ml PRN PRN IV 03/14/17 01:00 04/13/17 00:59 Dicyclomine HCl (Bentyl Tab) 10 mg BID PO 03/16/17 08:00 04/15/17 07:59 03/17/17 07:52 10 MG Sodium Bicarbonate (Sodium Bicarbonate Tab) 650 mg TID PO 03/17/17 16:00 04/16/17 15:59 03/17/17 17:06 650 MG Sodium Chloride 1,000 ml @ 75 mls/hr [id number] IV 03/17/17 11:30 04/16/17 11:29 03/17/17 12:18 75 MLS/HR Ciprofloxacin/ Dextrose 400 mg/ Prmx 200 ml @ 100 mls/hr Q12H IV 03/17/17 16:00 03/23/17 15:59 03/17/17 16:12 100 MLS/HR Objective Vital Signs Date Time Temp Pulse Resp B/P (MAP) Pulse Ox O2 Delivery O2 Flow Rate FiO2 03/17/17 16:00 Room Air 03/17/17 15:50 37.1 88 18 143/90 (107) 100 Room Air 03/17/17 09:32 93 18 100 Room Air 03/17/17 08:00 Room Air 03/17/17 07:50 36.5 87 18 132/84 (100) 100 Room Air 03/17/17 00:15 97 Room Air 03/16/17 23:45 36.9 89 18 119/76 (90) 99 Room Air Physical Exam General Appearance: WD/WN, no apparent distress Eyes: normal inspection, sclerae normal ENT: normal ENT inspection, pharynx normal Neck: supple, no adenopathy, trachea midline Respiratory/Chest: chest non-tender, lungs clear, normal breath sounds, no respiratory distress Cardiovascular: regular rate, rhythm, no gallop, no murmur Abdomen: normal bowel sounds, soft, no organomegaly, + tenderness Extremities: non-tender, no calf tenderness Neurologic/Psychiatric: alert, oriented x 3 Skin: normal color, warm/dry, no rash Laboratory Results Last 24 Hours Test 03/17/17 06:03 03/17/17 13:00 White Blood Count 10.23 K/uL Red Blood Count 2.64 M/uL Hemoglobin 8.0 g/dL Hematocrit 24.2 % Mean Corpuscular Volume 91.7 fL Mean Corpuscular Hemoglobin 30.3 pg Mean Corpuscular Hemoglobin Concent 33.1 g/dl Platelet Count 227 K/uL Mean Platelet Volume 11.1 fL Neutrophils (%) (Auto) 69.9 % Lymphocytes (%) (Auto) 15.9 % Monocytes (%) (Auto) 7.8 % Eosinophils (%) (Auto) 0.6 % Basophils (%) (Auto) 0.2 % Neutrophils # (Auto) 7.15 K/uL Lymphocytes # (Auto) 1.63 K/uL Monocytes # (Auto) 0.80 K/uL Eosinophils # (Auto) 0.06 K/uL Basophils # (Auto) 0.02 K/uL RDW Standard Deviation 58.7 fL RDW Coefficient of Variation 19.9 % Immature Granulocyte % (Auto) 5.6 % Immature Granulocyte # (Auto) 0.57 K/uL Nucleated RBC Absolute Count (auto) 0.15 K/uL Nucleated Red Blood Cells % 1.4 % Toxic Granulation 2+ Poikilocytosis PRESENT Anisocytosis PRESENT Echinocytes 1+ Schistocytes 2+ Sodium Level 145 mmol/L Potassium Level 4.1 mmol/L Chloride Level 122 mmol/L Carbon Dioxide Level 16 mmol/L Anion Gap 7.0 mmol/L Blood Urea Nitrogen 46 mg/dl Creatinine 1.90 mg/dl Est Creatinine Clear Calc Drug Dose 35.1 ml/min Estimated GFR () 33.8 Estimated GFR (Non- 29.2 BUN/Creatinine Ratio 24.4 Random Glucose 98 mg/dl Calcium Level 7.8 mg/dl Magnesium Level 2.0 mg/dl Urine Color YELLOW Urine Appearance CLEAR Urine pH 5.0 Urine Specific [place] 1.021 Urine Protein 2+ Urine Glucose (UA) NEG Urine Ketones NEG Urine Occult Blood 2+ Urine Nitrite NEG Urine Bilirubin NEG Urine Urobilinogen NEG Urine Leukocyte Esterase NEG Urine WBC (Auto) 1-5 /hpf Urine RBC (Auto) 5-10 /hpf Urine Hyaline Casts (Auto) 5-10 /lpf Urine Epithelial Cells (Auto) 10-20 /lpf Urine Bacteria (Auto) NEG Assessment and Plan 56-year-old female with chronic multiple medical comorbidities who now presents with acute hemorrhagic colitis with positive blood cultures for E coli. Lack of Shiga toxin does speak against toxigenic E coli, and it is possible patient has multi system disease from E coli sepsis. Recommend oral ciprofloxacin to complete 10 days of therapy. Will follow.
[2017-03-17] MEDS: AMITRIPTYLINE HCL 25 MG TAB PO SCH (21:16)
[2017-03-17] MEDS: MONTELUKAST SOD 10 MG TAB PO SCH (21:17)
[2017-03-17] MEDS: ROPINIROLE HCL 1 MG TAB PO SCH (21:19)
[2017-03-17] MEDS: FEXOFENADINE HCL 180 MG TAB PO SCH (21:20)
[2017-03-17 23:05] VITALS: BP 143/86; PULSE 92; TEMP 36.6; O2SAT 97
[2017-03-18] MEDS: MoRPHine SULFATE 4 MG/ML 1 ML CARP\\VIAL IV PRN ×4 (04:20→23:37)
[2017-03-18] MEDS: CIPROFLOXACIN / D5W 400 MG in PREMIXED IN D5W 200 ML IV SCH (04:21)
[2017-03-18] MEDS: LEVOTHYROXINE 100 MCG TAB PO SCH (06:36)
[2017-03-18] MEDS: SUCRALFATE 1 GM TAB PO SCH ×4 (06:36→20:35)
[2017-03-18 07:35] VITALS: BP 124/80; PULSE 96; TEMP 36.7; O2SAT 100
[2017-03-18] MEDS: RANITIDINE HCL 150 MG TAB PO SCH (08:20)
[2017-03-18] MEDS: PANTOprazole SOD 40 MG TAB PO SCH ×2 (08:20→20:38)
[2017-03-18] MEDS: FERROUS SULFATE 325 MG TAB PO SCH ×4 (08:20→20:38)
[2017-03-18] MEDS: VERAPAMIL HCL 40 MG TAB PO SCH ×2 (08:20→20:36)
[2017-03-18] MEDS: TOPIRAMATE 100 MG TAB PO SCH ×2 (08:20→20:37)
[2017-03-18] MEDS: DICYCLOMINE HCL 20 MG TAB PO SCH (08:21)
[2017-03-18] MEDS: CHOLECALCIFEROL 1000 INTER.UNIT TAB PO SCH (08:21)
[2017-03-18] MEDS: MULTIVITAMIN TAB PO SCH (08:21)
[2017-03-18] MEDS: SODIUM BICARBONATE 650 MG TAB PO SCH ×3 (08:21→20:34)
[2017-03-18 08:42] LABS: HEMATOCRIT 23.4 % (37-47); MEAN CELL VOLUME 92.9 fL (80-100); MEAN CORPUSCULAR HEMOGLOBIN 31.3 pg (25-34); MEAN CORPUSCULAR HGB CONC 33.8 g/dl (32-36); MEAN PLATELET VOLUME 10.3 fL (7.4-10.4); PLATELET COUNT 248 K/uL (130-400); RED BLOOD COUNT 2.52 M/uL (4.2-5.4); WHITE BLOOD COUNT 12.44 K/uL (4.8-10.8)
[2017-03-18 09:10] VITALS: BP 138/98; PULSE 100
[2017-03-18 09:12] VITALS: BP 139/87; PULSE 88
[2017-03-18 09:19] LABS: BUN/CREATININE RATIO 22.3 (10-20); CALCIUM 7.9 mg/dl (8.5-10.1); CREATININE 1.5 mg/dl (0.60-1.20); POTASSIUM 4.2 mmol/L (3.5-5.1)
[2017-03-18 09:21] LABS: ALB/GLOB RATIO 0.6 (0.9-2); PHOSPHORUS 4.1 mg/dl (2.5-4.9)
[2017-03-18 09:29] LABS: ANISOCYTOSIS PRESENT; BASO % 0.1 %; BASO ABS # 0.01 K/uL (0-0.2); COMPLETE YES; ECHINOCYTES 1+; EOS % 0.4 %; IG% 1.4 %; LYMPH % 12.2 %; LYMPH ABS # 1.52 K/uL (1.2-3.4); MONO % 5.9 %; SCHISTOCYTES 2+; TOXIC GRANULATION 1+
[2017-03-18] MEDS ORDERED: LEVALBUTEROL 1.25MG/0.5ML NEB INH PRN (13:00)
[2017-03-18] MEDS: ONDANSETRON INJ 2 MG/ML 2 ML VIAL IV PRN ×2 (15:00→23:37)
[2017-03-18] MEDS: TAPENTADOL HCL 50 MG TAB PO PRN (15:01)
[2017-03-18] MEDS ORDERED: PERFLUTREN LIPID MICROSPHERE (DEFINITY) IV ONE (15:44)
--- NOTE | 2017-03-18 16:00 | ECHOCARDIOGRAM REPORT ---
*NOTICE TO RECEIVING CONSTITUTION PARTY AGENCY This information is strictly Confidential and protected under [place] law. [place] law prohibits you from making any further disclosure of this information unless further disclosure is expressly permitted by the written consent of the person to whom it pertains or is authorized by law. A general authorization for the release of medical or other information is not sufficient for this purpose. Hospital accepts no responsibility if the information is made available to any other person, INCLUDING THE PATIENT. Interpretation Summary * Name: SHAYY CARRILLO Study Date: 03/18/2017 02:18 PM BP: 139/87 mmHg * Patient Location: .[id number] HR: 88 * : 1960 (M/d/yyyy) Gender: Female Height: 64 in * Age: 56 yrs Ethnicity: CA Weight: 185 lb * Ordering Physician: Marcel Coello * Referring Physician: Self, Referred * Performed By: Kyra Aparicio RDCS * * Reason For Study: MURMUR * BSA: 1.9 m2 * -- Conclusions -- * There is borderline concentric left ventricular hypertrophy. * Ejection Fraction = 60-65%. * The right ventricular systolic function is normal. * The left atrial size is normal. * Right atrial size is normal. * No significant vavular pathology. Procedure Details * A contrast injection of Definity was performed to improve assessment of LV function. * Contrast was injected into an intravenous site in the central line. * One vial of Definity ultrasound contrast was diluted in normal saline to a total volume of 10 ml. A total of '2' ml of solution was administered during imaging. * Lot # [id number] of Definity utilized for procedure. * Expiration date APR 21. * The attending nurse who injected the contrast agent was AMINATA WILEY RN. Left Ventricle * The left ventricle is normal in size. * There is borderline concentric left ventricular hypertrophy. * Ejection Fraction = 60-65%. * The left ventricular wall motion is normal. Right Ventricle * The right ventricle is normal size. * The right ventricular systolic function is normal. Atria * The left atrial size is normal. * Right atrial size is normal. * The interatrial septum is intact with no evidence for an atrial septal defect. Mitral Valve * There is mild mitral annular calcification. * Significant mitral regurgitation is absent. Tricuspid Valve * The tricuspid valve is not well visualized. * There is trace tricuspid regurgitation. Aortic Valve * The aortic valve is normal in structure and function. Great Vessels * The aortic root and proximal ascending aorta are normal sized. Pericardium/Pleural * There is no pericardial effusion. Left Ventricular Diastolic Function * Grade I diastolic dysfunction, (abnormal relaxation pattern). MMode 2D Measurements and Calculations IVSd 1.1 cm IVSs 1.5 cm LVIDd 4.0 cm LVIDs 2.7 cm LVPWd 1.1 cm LVPWs 1.6 cm IVS/LVPW 1.0 FS 33.9 % EDV(Teich) 70.5 ml ESV(Teich) 25.9 ml EF(Teich) 63.3 % EDV(cubed) 64.6 ml ESV(cubed) 18.7 ml EF(cubed) 71.1 % % IVS thick 33.8 % % LVPW thick 43.3 % LV mass(C)d 146.5 grams LV mass(C)dI 77.4 grams/m\S\2 LV mass(C)s 139.3 grams LV mass(C)sI 73.6 grams/m\S\2 SV(Teich) 44.6 ml SI(Teich) 23.6 ml/m\S\2 SV(cubed) 45.9 ml SI(cubed) 24.3 ml/m\S\2 Ao root diam 3.3 cm Ao root area 8.4 cm\S\2 LA dimension 3.7 cm LA/Ao 1.1 LVAd ap4 35.8 cm\S\2 LVLd ap4 8.5 cm EDV(MOD-sp4) 124.6 ml EDV(sp4-el) 128.4 ml LVAs ap4 22.3 cm\S\2 LVLs ap4 7.4 cm ESV(MOD-sp4) 56.6 ml ESV(sp4-el) 57.5 ml EF(MOD-sp4) 54.5 % EF(sp4-el) 55.2 % LVAd ap2 29.9 cm\S\2 LVLd ap2 7.7 cm EDV(MOD-sp2) 99.1 ml EDV(sp2-el) 98.7 ml LVAs ap2 17.4 cm\S\2 LVLs ap2 6.6 cm ESV(MOD-sp2) 40.8 ml ESV(sp2-el) 38.9 ml EF(MOD-sp2) 58.8 % EF(sp2-el) 60.6 % LVLd %diff -10.84 % EDV(MOD-bp) 117.0 ml LVLs %diff -10.89 % ESV(MOD-bp) 50.2 ml EF(MOD-bp) 57.1 % SV(MOD-sp4) 67.9 ml SI(MOD-sp4) 35.9 ml/m\S\2 SV(MOD-sp2) 58.3 ml SI(MOD-sp2) 30.8 ml/m\S\2 SV(MOD-bp) 66.8 ml SI(MOD-bp) 35.3 ml/m\S\2 SV(sp4-el) 70.9 ml SI(sp4-el) 37.5 ml/m\S\2 SV(sp2-el) 59.9 ml SI(sp2-el) 31.6 ml/m\S\2 Doppler Measurements and Calculations MV E max rupinder 102.5 cm/sec MV A max rupinder 118.6 cm/sec MV E/A 0.86 MV dec time 0.23 sec Ao V2 max 140.2 cm/sec Ao max PG 7.9 mmHg Ao max PG (full) 3.1 mmHg LV V1 max PG 4.7 mmHg LV V1 max 108.9 cm/sec TR max rupinder 239.9 cm/sec
--- NOTE | 2017-03-18 16:01 | DIAGNOSTIC IMAGING REPORT ---
LEFT VENOUS DOPP LOWER EXT UNILAT CLINICAL HISTORY: dvt? Pain. Edema. TECHNIQUE: Venous Doppler COMPARISON STUDY: None FINDINGS: Normal study IMPRESSION: Normal study The above report was generated using voice recognition software. It may contain grammatical, syntax or spelling errors. Electronically signed by: Ayaz Gayle M.D. 03/18/2017 4:00 PM Dictated Date/Time: 03/18/2017 3:59 PM
--- NOTE | 2017-03-18 16:02 | DIAGNOSTIC IMAGING REPORT ---
ULTRASOUND VENOUS DOPPLER ULTRASOUND OF THE LEFT UPPER EXTREMITY CLINICAL HISTORY: Left arm swelling. COMPARISON STUDY: No previous studies for comparison. FINDINGS: No intraluminal thrombus was visualized. The internal jugular, subclavian, axillary, cephalic, brachial, basilic, radial, and ulnar veins were patent. IMPRESSION: No evidence of left upper extremity DVT. Electronically signed by: Shaheed Orozco M.D. 03/18/2017 4:01 PM Dictated Date/Time: 03/18/2017 4:00 PM
[2017-03-18 16:12] VITALS: BP 147/97; PULSE 78; TEMP 36.6; O2SAT 100
--- NOTE | 2017-03-18 16:17 | Progress Note ---
Internal Med Progress Note Date of Service: Mar 18, 2017. Provider Documentation: SUBJECTIVE: stools are somewhat loose but no blood in it [place] of right ear ache no sob has left upper extremity and lower extremity swollen afebrile OBJECTIVE: Vital Signs-as noted below Exam: General-alert and oriented. Not in distress ENT-normal hearing Neck-no neck masses Lungs-cta b/l no wheezing mild bibasilar crackles present Heart-s1 and s2 heard regular rhythm, no murmurs Abdomen-soft bowel sounds present non tender no distension Extremities left upper extremity edema present, left ankle edema present Neuro-alert and oriented moves extremities Lab data as noted below. ASSESSMENT & PLAN: SEPSIS AND LOWER GI BLEED DUE TO COLITIS Bacteremia multi organ disease from e.coli presenting with 2 weeks of bloody diarrhea; in the ED, found to have severe right sided colitis on CT meets sepsis criteria: WBC 15K, tachycardia; BP stable, lactic acid normal was on Azactam, cipro and flagyl blood cx e.coli ryan sensitive ID ok for cipro and to complete 14day course since shiga toxin negate and also bacteremia mostlikely not toxigenic e.coli as per ID and recommends abx usage improving change cipro to po and will complete 10-14 day course ARF presenting with creat 3.8 (baseline 1.) cr 1.5 today on gentle fluids slow improvement consulted nephrology and appreciate inputs stopped fluids secondary to edema f/u labs Metabolic acidosis from above a dose of bicarb given f/u labs THROMBOCYTOPENIA likely due to sepsis HUS? due to ARF with toxigenic E. Coli with colitis - peripheral smear shows schistocytes resolved Bloody diarrhea supportive care resolved Anemia acute blood loss from above hb 8.0 03/14/17 Transfused one unit of prbc hb 7.9 today f/u labs HX NSVT on Verapamil ASTHMA no signs of acute exacerbation to continue home inhalers MIGRAINES to continue home meds, PRN Nucynta HYPOTHYROIDISM on levothyroxine Left upper and lower extremity edema stopped fluids follow Doppler DVT PROPHYLAXIS SCDs for now DISPOSITION to be determined pt/ot Vital Signs: Date Time Temp Pulse Resp B/P (MAP) Pulse Ox O2 Delivery O2 Flow Rate FiO2 03/18/17 16:12 36.6 78 16 147/97 (114) 100 Room Air 03/18/17 09:12 88 139/87 (104) 03/18/17 09:10 100 138/98 (111) 03/18/17 07:35 36.7 96 18 124/80 (95) 100 Nasal Cannula 3.0 03/18/17 00:00 Room Air 03/17/17 23:05 36.6 92 16 143/86 (105) 97 Nasal Cannula 2.0 Lab Results: Results Past 24 Hours Test 03/18/17 08:25 Range/Units White Blood Count 12.44 4.8-10.8 K/uL Red Blood Count 2.52 4.2-5.4 M/uL Hemoglobin 7.9 12.0-16.0 g/dL Hematocrit 23.4 37-47 % Mean Corpuscular Volume 92.9 80-100 fL Mean Corpuscular Hemoglobin 31.3 25-34 pg Mean Corpuscular Hemoglobin Concent 33.8 32-36 g/dl Platelet Count 248 130-400 K/uL Mean Platelet Volume 10.3 7.4-10.4 fL Neutrophils (%) (Auto) 80.0 % Lymphocytes (%) (Auto) 12.2 % Monocytes (%) (Auto) 5.9 % Eosinophils (%) (Auto) 0.4 % Basophils (%) (Auto) 0.1 % Neutrophils # (Auto) 9.94 1.4-6.5 K/uL Lymphocytes # (Auto) 1.52 1.2-3.4 K/uL Monocytes # (Auto) 0.74 0.11-0.59 K/uL Eosinophils # (Auto) 0.05 0-0.5 K/uL Basophils # (Auto) 0.01 0-0.2 K/uL RDW Standard Deviation 59.7 36.4-46.3 fL RDW Coefficient of Variation 20.7 11.5-14.5 % Immature Granulocyte % (Auto) 1.4 % Immature Granulocyte # (Auto) 0.18 0.00-0.02 K/uL Toxic Granulation 1+ Anisocytosis PRESENT Echinocytes 1+ Schistocytes 2+ Sodium Level 145 136-145 mmol/L Potassium Level 4.2 3.5-5.1 mmol/L Chloride Level 120 98-107 mmol/L Carbon Dioxide Level 16 21-32 mmol/L Anion Gap 9.0 3-11 mmol/L Blood Urea Nitrogen 33 7-18 mg/dl Creatinine 1.50 0.60-1.20 mg/dl Est Creatinine Clear Calc Drug Dose 44.4 ml/min Estimated GFR () 45.0 Estimated GFR (Non- 38.8 BUN/Creatinine Ratio 22.3 10-20 Random Glucose 94 70-99 mg/dl Calcium Level 7.9 8.5-10.1 mg/dl Phosphorus Level 4.1 2.5-4.9 mg/dl Magnesium Level 2.0 1.8-2.4 mg/dl Total Bilirubin 0.3 0.2-1 mg/dl Aspartate Amino Transf (AST/SGOT) 26 15-37 U/L Alanine Aminotransferase (ALT/SGPT) 22 12-78 U/L Alkaline Phosphatase 140 45-117 U/L Total Protein 4.4 6.4-8.2 gm/dl Albumin 1.6 3.4-5.0 gm/dl Globulin 2.8 2.5-4.0 gm/dl Albumin/Globulin Ratio 0.6 0.9-2
--- NOTE | 2017-03-18 17:38 | Infectious Disease Progress Nt ---
Progress Note Date of Service Mar 18, 2017. Subjective Pt evaluation today including: conversation w/ patient, physical exam, chart review, lab review, review of studies, conversation w/ library sales consultant, review of inpatient medication list Diarrhea, bleeding, and abdominal pain improving. Remains afebrile. stool cultures no no significant pathogens identified. All Other Systems: Reviewed and Negative Medications Current Inpatient Medications Medications (Trade) Dose Ordered Sig/Zo Route Start Time Stop Time Status Last Admin Dose Admin Acetaminophen (Tylenol Tab) 650 mg Q4H PRN PO 03/12/17 14:30 04/11/17 14:29 03/14/17 18:19 650 MG Ondansetron HCl (Zofran Inj) 4 mg Q6H PRN IV 03/12/17 14:30 04/11/17 14:29 03/18/17 15:00 4 MG Amitriptyline HCl (Elavil Tab) 75 mg HS PO 03/12/17 21:00 04/11/17 20:59 03/17/17 21:16 75 MG Cholecalciferol (Vitamin D Tab) 2,000 inter.unit DAILY PO 03/13/17 09:00 04/12/17 08:59 03/18/17 08:21 2,000 INTER.UNIT Ferrous Sulfate (Feosol Tab) 325 mg QIDM PO 03/12/17 16:45 04/11/17 16:44 03/18/17 14:58 325 MG Fexofenadine HCl (Yuliya Tab) 180 mg HS PO 03/12/17 21:00 04/11/17 20:59 03/17/17 21:20 180 MG Levalbuterol (Xopenex 1.25MG/ 3ML Neb) 1.25 mg TID PRN INH 03/12/17 15:15 04/11/17 15:14 03/17/17 09:32 1.25 MG Levothyroxine Sodium (Synthroid Tab) 100 mcg DAILYBB PO 03/13/17 06:00 04/12/17 05:59 03/18/17 06:36 100 MCG Montelukast Sodium (Singulair Tab) 10 mg HS PO 03/12/17 21:00 04/11/17 20:59 03/17/17 21:17 10 MG Multivitamins (Multivitamin Tab) 1 tab QAM PO 03/13/17 09:00 04/12/17 08:59 03/18/17 08:21 1 TAB Ranitidine HCl (zANTac TAB) 150 mg QAM PO 03/13/17 09:00 04/12/17 08:59 03/18/17 08:20 150 MG Ropinirole HCl (Requip Tab) 1.5 mg HS PO 03/12/17 21:00 04/11/17 20:59 03/17/17 21:19 1.5 MG Sucralfate (Carafate Tab) 1 gm ACHS PO 03/12/17 16:15 04/11/17 16:14 03/18/17 10:46 1 GM Topiramate (Topamax Tab) 100 mg BID PO 03/12/17 21:00 04/11/17 20:59 03/18/17 08:20 100 MG Verapamil HCl (Isoptin Tab) 40 mg BID PO 03/12/17 21:00 04/11/17 20:59 03/18/17 08:20 40 MG Pantoprazole Sodium (Protonix Tab) 40 mg BID PO 03/12/17 21:00 04/11/17 20:59 03/18/17 08:20 40 MG Tapentadol (Nucynta Tab) 100 mg Q6H PRN PO 03/12/17 15:15 04/11/17 15:14 03/18/17 15:01 100 MG Miscellaneous Information (Order Awaiting Action) 1 ea DAILY@0600 N/A 03/12/17 18:00 04/11/17 17:59 Morphine Sulfate (MoRPHine SULFATE INJ) 4 mg Q6H PRN IV 03/13/17 04:30 03/27/17 04:29 03/18/17 10:46 4 MG Ciprofloxacin (Consult) 1 ea UD PRN N/A 03/13/17 19:30 04/12/17 19:29 Heparin Sodium (Porcine) (Heparin 100 Unit/ml 5ml Flush) 5 ml PRN PRN IV 03/14/17 01:00 04/13/17 00:59 03/18/17 09:34 5 ML Dicyclomine HCl (Bentyl Tab) 10 mg BID PO 03/16/17 08:00 04/15/17 07:59 03/18/17 08:21 10 MG Sodium Bicarbonate (Sodium Bicarbonate Tab) 650 mg TID PO 03/17/17 16:00 04/16/17 15:59 03/18/17 14:58 650 MG Ciprofloxacin (Cipro Tab) 500 mg BID PO 03/18/17 20:00 03/27/17 23:59 Salmeterol Xinafoate/ Fluticasone (Advair Diskus 250/50 Inh) 1 puff BID INH 03/18/17 20:00 04/17/17 19:59 Levalbuterol (Xopenex 1.25MG/ 0.5ML Neb) 1.25 mg Q4H PRN INH 03/18/17 13:00 04/17/17 12:59 Objective Vital Signs Date Time Temp Pulse Resp B/P (MAP) Pulse Ox O2 Delivery O2 Flow Rate FiO2 03/18/17 16:12 36.6 78 16 147/97 (114) 100 Room Air 03/18/17 16:00 Room Air 03/18/17 09:12 88 139/87 (104) 03/18/17 09:10 100 138/98 (111) 03/18/17 07:35 36.7 96 18 124/80 (95) 100 Nasal Cannula 3.0 03/18/17 00:00 Room Air 03/17/17 23:05 36.6 92 16 143/86 (105) 97 Nasal Cannula 2.0 Physical Exam General Appearance: WD/WN, no apparent distress Eyes: normal inspection, sclerae normal ENT: normal ENT inspection, pharynx normal Neck: supple, no adenopathy, thyroid normal, trachea midline Respiratory/Chest: chest non-tender, lungs clear, normal breath sounds, no respiratory distress Cardiovascular: regular rate, rhythm, no gallop, no murmur Abdomen: normal bowel sounds, soft, no organomegaly, + tenderness Extremities: non-tender, + swelling Neurologic/Psychiatric: alert, oriented x 3 Skin: normal color, no rash Lymphatic: no adenopathy Laboratory Results Last 24 Hours Test 03/18/17 08:25 White Blood Count 12.44 K/uL Red Blood Count 2.52 M/uL Hemoglobin 7.9 g/dL Hematocrit 23.4 % Mean Corpuscular Volume 92.9 fL Mean Corpuscular Hemoglobin 31.3 pg Mean Corpuscular Hemoglobin Concent 33.8 g/dl Platelet Count 248 K/uL Mean Platelet Volume 10.3 fL Neutrophils (%) (Auto) 80.0 % Lymphocytes (%) (Auto) 12.2 % Monocytes (%) (Auto) 5.9 % Eosinophils (%) (Auto) 0.4 % Basophils (%) (Auto) 0.1 % Neutrophils # (Auto) 9.94 K/uL Lymphocytes # (Auto) 1.52 K/uL Monocytes # (Auto) 0.74 K/uL Eosinophils # (Auto) 0.05 K/uL Basophils # (Auto) 0.01 K/uL RDW Standard Deviation 59.7 fL RDW Coefficient of Variation 20.7 % Immature Granulocyte % (Auto) 1.4 % Immature Granulocyte # (Auto) 0.18 K/uL Toxic Granulation 1+ Anisocytosis PRESENT Echinocytes 1+ Schistocytes 2+ Sodium Level 145 mmol/L Potassium Level 4.2 mmol/L Chloride Level 120 mmol/L Carbon Dioxide Level 16 mmol/L Anion Gap 9.0 mmol/L Blood Urea Nitrogen 33 mg/dl Creatinine 1.50 mg/dl Est Creatinine Clear Calc Drug Dose 44.4 ml/min Estimated GFR () 45.0 Estimated GFR (Non- 38.8 BUN/Creatinine Ratio 22.3 Random Glucose 94 mg/dl Calcium Level 7.9 mg/dl Phosphorus Level 4.1 mg/dl Magnesium Level 2.0 mg/dl Total Bilirubin 0.3 mg/dl Aspartate Amino Transf (AST/SGOT) 26 U/L Alanine Aminotransferase (ALT/SGPT) 22 U/L Alkaline Phosphatase 140 U/L Total Protein 4.4 gm/dl Albumin 1.6 gm/dl Globulin 2.8 gm/dl Albumin/Globulin Ratio 0.6 Assessment and Plan 56-year-old female with chronic multiple medical comorbidities who now presents with acute hemorrhagic colitis with positive blood cultures for E coli. Lack of Shiga toxin does speak against toxigenic E coli, and it is possible patient has multi system disease from E coli sepsis. Recommend oral ciprofloxacin to complete 10 days of therapy. Will follow.
[2017-03-18] MEDS: FLUTICASONE/SALMETEROL 250/50 (ADVAIR) 14 PUFF/1 INHALER INH SCH (20:33)
[2017-03-18] MEDS: CIPROFLOXACIN 500 MG TAB PO SCH (20:34)
[2017-03-18] MEDS: ROPINIROLE HCL 1 MG TAB PO SCH (20:35)
[2017-03-18] MEDS: FEXOFENADINE HCL 180 MG TAB PO SCH (20:36)
[2017-03-18] MEDS: MONTELUKAST SOD 10 MG TAB PO SCH (20:37)
[2017-03-18] MEDS: AMITRIPTYLINE HCL 25 MG TAB PO SCH (20:37)
[2017-03-18] MEDS: DICYCLOMINE HCL 10 MG CAP PO SCH (22:10)
[2017-03-18 23:42] VITALS: BP 135/81; PULSE 95; TEMP 36.7; O2SAT 99
[2017-03-19] VITALS (15 sets, daily range): BP systolic 125–163; BP diastolic 78–103; PULSE 84–112; TEMP 36.5–37.1; O2SAT 97–100
[2017-03-19 06:01] LABS: HEMATOCRIT 21.6 % (37-47); MEAN CELL VOLUME 94.3 fL (80-100); MEAN CORPUSCULAR HEMOGLOBIN 31.4 pg (25-34); MEAN CORPUSCULAR HGB CONC 33.3 g/dl (32-36); MEAN PLATELET VOLUME 9.8 fL (7.4-10.4); PLATELET COUNT 250 K/uL (130-400); RED BLOOD COUNT 2.29 M/uL (4.2-5.4); WHITE BLOOD COUNT 8.86 K/uL (4.8-10.8)
[2017-03-19] MEDS: ONDANSETRON INJ 2 MG/ML 2 ML VIAL IV PRN ×2 (06:22→13:39)
[2017-03-19] MEDS: LEVOTHYROXINE 100 MCG TAB PO SCH (06:23)
[2017-03-19] MEDS: SUCRALFATE 1 GM TAB PO SCH ×4 (06:23→20:10)
[2017-03-19] MEDS: MoRPHine SULFATE 4 MG/ML 1 ML CARP\\VIAL IV PRN ×3 (06:24→22:06)
[2017-03-19 06:35] LABS: CREATININE 1.3 mg/dl (0.60-1.20); POTASSIUM 3.8 mmol/L (3.5-5.1)
[2017-03-19 07:18] LABS: ANISOCYTOSIS PRESENT; BASO % 0.1 %; BASO ABS # 0.01 K/uL (0-0.2); COMPLETE YES; ECHINOCYTES 1+; EOS % 0.2 %; IG% 1.2 %; LYMPH % 14.8 %; LYMPH ABS # 1.31 K/uL (1.2-3.4); MONO % 6.8 %; NEUT % 76.9 %; POIKILOCYTOSIS PRESENT; SCHISTOCYTES 1+; SPHEROCYTE 1+; TOXIC GRANULATION 1+
[2017-03-19] MEDS: FERROUS SULFATE 325 MG TAB PO SCH ×4 (09:22→20:08)
[2017-03-19] MEDS: PANTOprazole SOD 40 MG TAB PO SCH ×2 (09:22→20:03)
[2017-03-19] MEDS: SODIUM BICARBONATE 650 MG TAB PO SCH ×3 (09:23→20:05)
[2017-03-19] MEDS: VERAPAMIL HCL 40 MG TAB PO SCH ×2 (09:23→20:04)
[2017-03-19] MEDS: RANITIDINE HCL 150 MG TAB PO SCH (09:23)
[2017-03-19] MEDS: TOPIRAMATE 100 MG TAB PO SCH ×2 (09:23→20:03)
[2017-03-19] MEDS: DICYCLOMINE HCL 10 MG CAP PO SCH ×2 (09:23→20:09)
[2017-03-19] MEDS: CIPROFLOXACIN 500 MG TAB PO SCH ×2 (09:24→20:08)
[2017-03-19] MEDS: FLUTICASONE/SALMETEROL 250/50 (ADVAIR) 14 PUFF/1 INHALER INH SCH ×2 (09:24→20:07)
[2017-03-19] MEDS: CHOLECALCIFEROL 1000 INTER.UNIT TAB PO SCH (09:24)
[2017-03-19] MEDS: MULTIVITAMIN TAB PO SCH (09:24)
[2017-03-19] MEDS ORDERED: DEXTROSE 5% 500ML 500 ML IV ONE (11:00)
[2017-03-19] MEDS: TAPENTADOL HCL 50 MG TAB PO PRN (13:39)
[2017-03-19] MEDS ORDERED: FUROSEMIDE INJ 20 MG in SYRINGE 0 ML IV SCH (14:00)
[2017-03-19] MEDS ORDERED: ACETAMINOPHEN 325 MG TAB PO SCH (14:00)
[2017-03-19 14:45] LABS: NOROVIRUS RNA** TC 19098X NOT DETECTED; O&P GIARDIA AG NOT DETECTED (NOT DETECTED)
--- NOTE | 2017-03-19 15:31 | Nephrology Progress Note ---
Nephrology Progress Note Date of Service: Mar 19, 2017. Subjective no acute interval events clinically; slept well; abd pain still present mili R side; some R ear pain and R eye swelling w/ acute R vision changes; some bm (2 yesterday) but not excessive and no blood; eating well Objective Date Time Temp Pulse Resp B/P (MAP) Pulse Ox O2 Delivery O2 Flow Rate FiO2 03/19/17 10:53 Room Air 03/19/17 07:29 36.6 90 20 125/78 (94) 97 Room Air 03/19/17 00:00 Nasal Cannula 2.0 03/18/17 23:42 36.7 95 20 135/81 (99) 99 Nasal Cannula 2.0 03/18/17 16:12 36.6 78 16 147/97 (114) 100 Room Air 03/18/17 16:00 Room Air Physical Exam: General Appearance: WD/WN, no apparent distress (on RA maneuvers readily for exam) Eyes: EOMI, no obvious R eye edema ENT: hearing grossly normal; ear canals not examined Neck: supple Respiratory/Chest: lungs clear, + decreased breath sounds Cardiovascular: regular rate, rhythm, no edema Abdomen: normal bowel sounds, soft, + tenderness (still moderate R abd w/o rebound or guarding; no tobias) Extremities: normal inspection Neurologic/Psych: alert, normal mood/affect, oriented x 3 Skin: warm/dry, no rash Current Inpatient Medications Medications (Trade) Dose Ordered Sig/Zo Route Start Time Stop Time Status Last Admin Dose Admin Acetaminophen (Tylenol Tab) 650 mg Q4H PRN PO 03/12/17 14:30 04/11/17 14:29 03/14/17 18:19 650 MG Ondansetron HCl (Zofran Inj) 4 mg Q6H PRN IV 03/12/17 14:30 04/11/17 14:29 03/19/17 13:39 4 MG Amitriptyline HCl (Elavil Tab) 75 mg HS PO 03/12/17 21:00 04/11/17 20:59 03/18/17 20:37 75 MG Cholecalciferol (Vitamin D Tab) 2,000 inter.unit DAILY PO 03/13/17 09:00 04/12/17 08:59 03/19/17 09:24 2,000 INTER.UNIT Ferrous Sulfate (Feosol Tab) 325 mg QIDM PO 03/12/17 16:45 04/11/17 16:44 03/19/17 13:38 325 MG Fexofenadine HCl (Yuliya Tab) 180 mg HS PO 03/12/17 21:00 04/11/17 20:59 03/18/17 20:36 180 MG Levalbuterol (Xopenex 1.25MG/ 3ML Neb) 1.25 mg TID PRN INH 03/12/17 15:15 04/11/17 15:14 03/17/17 09:32 1.25 MG Levothyroxine Sodium (Synthroid Tab) 100 mcg DAILYBB PO 03/13/17 06:00 04/12/17 05:59 03/19/17 06:23 100 MCG Montelukast Sodium (Singulair Tab) 10 mg HS PO 03/12/17 21:00 04/11/17 20:59 03/18/17 20:37 10 MG Multivitamins (Multivitamin Tab) 1 tab QAM PO 03/13/17 09:00 04/12/17 08:59 03/19/17 09:24 1 TAB Ranitidine HCl (zANTac TAB) 150 mg QAM PO 03/13/17 09:00 04/12/17 08:59 03/19/17 09:23 150 MG Ropinirole HCl (Requip Tab) 1.5 mg HS PO 03/12/17 21:00 04/11/17 20:59 03/18/17 20:35 1.5 MG Sucralfate (Carafate Tab) 1 gm ACHS PO 03/12/17 16:15 04/11/17 16:14 03/19/17 11:23 1 GM Topiramate (Topamax Tab) 100 mg BID PO 03/12/17 21:00 04/11/17 20:59 03/19/17 09:23 100 MG Verapamil HCl (Isoptin Tab) 40 mg BID PO 03/12/17 21:00 04/11/17 20:59 03/19/17 09:23 40 MG Pantoprazole Sodium (Protonix Tab) 40 mg BID PO 03/12/17 21:00 04/11/17 20:59 03/19/17 09:22 40 MG Tapentadol (Nucynta Tab) 100 mg Q6H PRN PO 03/12/17 15:15 04/11/17 15:14 03/19/17 13:39 100 MG Miscellaneous Information (Order Awaiting Action) 1 ea DAILY@0600 N/A 03/12/17 18:00 04/11/17 17:59 Morphine Sulfate (MoRPHine SULFATE INJ) 4 mg Q6H PRN IV 03/13/17 04:30 03/27/17 04:29 03/19/17 15:21 4 MG Ciprofloxacin (Consult) 1 ea UD PRN N/A 03/13/17 19:30 04/12/17 19:29 Heparin Sodium (Porcine) (Heparin 100 Unit/ml 5ml Flush) 5 ml PRN PRN IV 03/14/17 01:00 04/13/17 00:59 03/19/17 06:24 5 ML Sodium Bicarbonate (Sodium Bicarbonate Tab) 650 mg TID PO 03/17/17 16:00 04/16/17 15:59 03/19/17 13:38 650 MG Ciprofloxacin (Cipro Tab) 500 mg BID PO 03/18/17 20:00 03/27/17 23:59 03/19/17 09:24 500 MG Salmeterol Xinafoate/ Fluticasone (Advair Diskus 250/50 Inh) 1 puff BID INH 03/18/17 20:00 04/17/17 19:59 03/19/17 09:24 1 PUFF Levalbuterol (Xopenex 1.25MG/ 0.5ML Neb) 1.25 mg Q4H PRN INH 03/18/17 13:00 04/17/17 12:59 Dicyclomine HCl (Bentyl Cap) 10 mg BID PO 03/18/17 21:00 04/17/17 20:59 03/19/17 09:23 10 MG Dextrose 500 ml @ 75 mls/hr Q6H40M ONCE IV 03/19/17 11:00 03/19/17 17:39 03/19/17 11:25 75 MLS/HR Acetaminophen (Tylenol Tab) 650 mg TODAY@1400 PO 03/19/17 14:00 03/19/17 19:00 Furosemide 20 mg/ Syringe 2 ml @ 4 mls/min TODAY@1400 IV 03/19/17 14:00 03/19/17 18:00 Neomycin/ Polymyxin/ Hydrocortisone (Cortisporin Otic Soln) 4 drops QID OT 03/19/17 17:00 04/18/17 16:59 Last 24 Hours Test 03/19/17 05:22 White Blood Count 8.86 K/uL Red Blood Count 2.29 M/uL Hemoglobin 7.2 g/dL Hematocrit 21.6 % Mean Corpuscular Volume 94.3 fL Mean Corpuscular Hemoglobin 31.4 pg Mean Corpuscular Hemoglobin Concent 33.3 g/dl Platelet Count 250 K/uL Mean Platelet Volume 9.8 fL Neutrophils (%) (Auto) 76.9 % Lymphocytes (%) (Auto) 14.8 % Monocytes (%) (Auto) 6.8 % Eosinophils (%) (Auto) 0.2 % Basophils (%) (Auto) 0.1 % Neutrophils # (Auto) 6.81 K/uL Lymphocytes # (Auto) 1.31 K/uL Monocytes # (Auto) 0.60 K/uL Eosinophils # (Auto) 0.02 K/uL Basophils # (Auto) 0.01 K/uL RDW Standard Deviation 61.1 fL RDW Coefficient of Variation 21.2 % Immature Granulocyte % (Auto) 1.2 % Immature Granulocyte # (Auto) 0.11 K/uL Nucleated RBC Absolute Count (auto) 0.03 K/uL Nucleated Red Blood Cells % 0.3 % Toxic Granulation 1+ Poikilocytosis PRESENT Anisocytosis PRESENT Spherocytes 1+ Echinocytes 1+ Schistocytes 1+ Sodium Level 147 mmol/L Potassium Level 3.8 mmol/L Chloride Level 121 mmol/L Carbon Dioxide Level 19 mmol/L Anion Gap 7.0 mmol/L Blood Urea Nitrogen 26 mg/dl Creatinine 1.30 mg/dl Est Creatinine Clear Calc Drug Dose 51.3 ml/min Estimated GFR () 53.5 Estimated GFR (Non- 46.1 BUN/Creatinine Ratio 20.0 Random Glucose 91 mg/dl Calcium Level 8.0 mg/dl Magnesium Level 2.0 mg/dl Assessment & Plan 56 y/o F w/ E coli bacteremia and LILLIANA on unknown baseline renal function who presented with thrombocytopenia, schistocytes in the setting of hemorraghic acute R sided colitis after 3 days of bloody diarrhea. Shiga toxin studies on stool are negative. lab reports that sorbitol testing is also positive making it very unlikely that E coli detected in blood would be a 157 strain of E coli. ATN on unknown baseline renal function; her creatinine has been steadily improving but now plateau'd w/ hyperchloremic metabolic acidosis on bmp -cont supportive care and daily bmp -microhematuria noted -cont sodium bicarb tabs tid -1/2 NS stopped yesterday; will give another 500 mL today D5W for hypernatremia which is mild in pt still not hungry/drinks little -at this time blood gas not indicated to characterize acid base disorder further -no indication for acute dialysis; will follow closely; no renal bx indicated at this time since she is improving Sepsis with bacteremia, thrombocytopenia, anemia and schistocytes > clinically improving on all fronts except worsening anemai -recommend treating per ID recommendations w/ cipro; given negative shiga toxin and sorbital +, doubt Shiga. -consider repeat blood cultures and if persistent bacteremia would need TTE; endocarditis can be associated w/ HUS -HUS less likely here; severe volume depletion and sepsis can explain low plt counts and renal failure -her plts have normalized but would cont to monitor >> no obvious source of bleeding > recommend FOBT;still has schistocytes on diff >>consider repeat LDH, haptoglobin, KATIE (Yasmin), direct/indirect bilirubin -f/u GI and ID recs Appreciate consult.
--- NOTE | 2017-03-19 16:32 | Progress Note ---
Internal Med Progress Note Date of Service: Mar 19, 2017. Provider Documentation: SUBJECTIVE: complains of right ear pain afebrile eating ok has mild abdominal pain stools are ok ambulating ok OBJECTIVE: Vital Signs-as noted below Exam: General-alert and oriented. Not in distress ENT-normal hearing. Right ear external membranes mildly erythematous Neck-no neck masses Lungs-cta b/l no wheezing mild bibasilar crackles present Heart-s1 and s2 heard regular rhythm, no murmurs Abdomen-soft bowel sounds present non tender no distension Extremities left upper extremity edema present, left ankle edema present Neuro-alert and oriented moves extremities Lab data as noted below. ASSESSMENT & PLAN: SEPSIS AND LOWER GI BLEED DUE TO COLITIS Bacteremia multi organ disease from e.coli presenting with 2 weeks of bloody diarrhea; in the ED, found to have severe right sided colitis on CT meets sepsis criteria: WBC 15K, tachycardia; BP stable, lactic acid normal was on Azactam, cipro and flagyl blood cx e.coli ryan sensitive ID ok for cipro and to complete 14day course since shiga toxin negate and also bacteremia mostlikely not toxigenic e.coli as per ID and recommends abx usage improving change cipro to po and will complete 10-14 day course stable ARF presenting with creat 3.8 (baseline 1.) cr 1.3 today on gentle fluids as per nephrology slow improvement f/u labs Metabolic acidosis from above a dose of bicarb given f/u labs THROMBOCYTOPENIA likely due to sepsis HUS? due to ARF with toxigenic E. Coli with colitis - peripheral smear shows schistocytes resolved Bloody diarrhea supportive care resolved Anemia acute blood loss from above hb 8.0 03/14/17 Transfused one unit of prbc hb 7.2 today plan for two units of prbc today f/u labs Right ear pain external otitis started on Cortisporin ear drops HX NSVT on Verapamil ASTHMA no signs of acute exacerbation to continue home inhalers MIGRAINES to continue home meds, PRN Nucynta HYPOTHYROIDISM on levothyroxine Left upper and lower extremity edema stopped fluids follow Doppler DVT PROPHYLAXIS SCDs for now DISPOSITION to be determined pt/ot Vital Signs: Date Time Temp Pulse Resp B/P (MAP) Pulse Ox O2 Delivery O2 Flow Rate FiO2 03/19/17 15:41 37.1 97 18 144/87 (106) 99 Room Air 03/19/17 15:39 112 100 03/19/17 10:53 Room Air 03/19/17 07:29 36.6 90 20 125/78 (94) 97 Room Air 03/19/17 00:00 Nasal Cannula 2.0 03/18/17 23:42 36.7 95 20 135/81 (99) 99 Nasal Cannula 2.0 Lab Results: Results Past 24 Hours Test 03/19/17 05:22 Range/Units White Blood Count 8.86 4.8-10.8 K/uL Red Blood Count 2.29 4.2-5.4 M/uL Hemoglobin 7.2 12.0-16.0 g/dL Hematocrit 21.6 37-47 % Mean Corpuscular Volume 94.3 80-100 fL Mean Corpuscular Hemoglobin 31.4 25-34 pg Mean Corpuscular Hemoglobin Concent 33.3 32-36 g/dl Platelet Count 250 130-400 K/uL Mean Platelet Volume 9.8 7.4-10.4 fL Neutrophils (%) (Auto) 76.9 % Lymphocytes (%) (Auto) 14.8 % Monocytes (%) (Auto) 6.8 % Eosinophils (%) (Auto) 0.2 % Basophils (%) (Auto) 0.1 % Neutrophils # (Auto) 6.81 1.4-6.5 K/uL Lymphocytes # (Auto) 1.31 1.2-3.4 K/uL Monocytes # (Auto) 0.60 0.11-0.59 K/uL Eosinophils # (Auto) 0.02 0-0.5 K/uL Basophils # (Auto) 0.01 0-0.2 K/uL RDW Standard Deviation 61.1 36.4-46.3 fL RDW Coefficient of Variation 21.2 11.5-14.5 % Immature Granulocyte % (Auto) 1.2 % Immature Granulocyte # (Auto) 0.11 0.00-0.02 K/uL Nucleated RBC Absolute Count (auto) 0.03 0-0 K/uL Nucleated Red Blood Cells % 0.3 % Toxic Granulation 1+ Poikilocytosis PRESENT Anisocytosis PRESENT Spherocytes 1+ Echinocytes 1+ Schistocytes 1+ Sodium Level 147 136-145 mmol/L Potassium Level 3.8 3.5-5.1 mmol/L Chloride Level 121 98-107 mmol/L Carbon Dioxide Level 19 21-32 mmol/L Anion Gap 7.0 3-11 mmol/L Blood Urea Nitrogen 26 7-18 mg/dl Creatinine 1.30 0.60-1.20 mg/dl Est Creatinine Clear Calc Drug Dose 51.3 ml/min Estimated GFR () 53.5 Estimated GFR (Non- 46.1 BUN/Creatinine Ratio 20.0 10-20 Random Glucose 91 70-99 mg/dl Calcium Level 8.0 8.5-10.1 mg/dl Magnesium Level 2.0 1.8-2.4 mg/dl
[2017-03-19] MEDS ORDERED: DiphenhydrAMINE HCL 50 MG/ML VIAL IV SCH (17:30)
[2017-03-19] MEDS ORDERED: NURSING VERBAL MED ORDER ONE (17:30)
[2017-03-19] MEDS: NEOMYCIN/POLYMYX/HYDROCORT OT SOLN 10 ML BTL OT SCH ×2 (17:33→20:03)
[2017-03-19] MEDS: MONTELUKAST SOD 10 MG TAB PO SCH (20:03)
[2017-03-19] MEDS: AMITRIPTYLINE HCL 25 MG TAB PO SCH (20:05)
[2017-03-19] MEDS: ROPINIROLE HCL 1 MG TAB PO SCH (20:06)
[2017-03-19] MEDS: FEXOFENADINE HCL 180 MG TAB PO SCH (20:07)
[2017-03-20 00:35] VITALS: BP 132/79; PULSE 90; TEMP 36.9; O2SAT 99
[2017-03-20 01:00] VITALS: O2SAT 99
[2017-03-20] MEDS: ONDANSETRON INJ 2 MG/ML 2 ML VIAL IV PRN ×2 (04:21→19:20)
[2017-03-20] MEDS: MoRPHine SULFATE 4 MG/ML 1 ML CARP\\VIAL IV PRN ×3 (04:23→19:20)
[2017-03-20 05:55] LABS: HEMATOCRIT 28.1 % (37-47); MEAN CELL VOLUME 93.4 fL (80-100); MEAN CORPUSCULAR HEMOGLOBIN 30.9 pg (25-34); MEAN CORPUSCULAR HGB CONC 33.1 g/dl (32-36); PLATELET COUNT 295 K/uL (130-400); RED BLOOD COUNT 3.01 M/uL (4.2-5.4); WHITE BLOOD COUNT 9.67 K/uL (4.8-10.8)
[2017-03-20] MEDS: SUCRALFATE 1 GM TAB PO SCH ×4 (06:16→22:06)
[2017-03-20] MEDS: LEVOTHYROXINE 100 MCG TAB PO SCH (06:17)
[2017-03-20 06:26] LABS: BASO % 0.1 %; BASO ABS # 0.01 K/uL (0-0.2); COMPLETE YES; ECHINOCYTES 1+; EOS % 0.4 %; IG% 0.5 %; LYMPH % 12.9 %; LYMPH ABS # 1.25 K/uL (1.2-3.4); MONO % 6.1 %; SCHISTOCYTES 1+
[2017-03-20 06:28] LABS: BUN/CREATININE RATIO 15.1 (10-20); CREATININE 1.3 mg/dl (0.60-1.20); MAGNESIUM 2.1 mg/dl (1.8-2.4); POTASSIUM 3.7 mmol/L (3.5-5.1)
[2017-03-20 07:04] VITALS: BP 132/77; PULSE 80; TEMP 36.6; O2SAT 97
[2017-03-20] MEDS: CHOLECALCIFEROL 1000 INTER.UNIT TAB PO SCH (09:45)
[2017-03-20] MEDS: MULTIVITAMIN TAB PO SCH (09:45)
[2017-03-20] MEDS: TOPIRAMATE 100 MG TAB PO SCH ×2 (09:45→19:28)
[2017-03-20] MEDS: VERAPAMIL HCL 40 MG TAB PO SCH ×2 (09:45→19:32)
[2017-03-20] MEDS: RANITIDINE HCL 150 MG TAB PO SCH (09:45)
[2017-03-20] MEDS: SODIUM BICARBONATE 650 MG TAB PO SCH ×3 (09:45→19:29)
[2017-03-20] MEDS: FERROUS SULFATE 325 MG TAB PO SCH ×4 (09:45→19:27)
[2017-03-20] MEDS: PANTOprazole SOD 40 MG TAB PO SCH ×2 (09:45→19:28)
[2017-03-20] MEDS: NEOMYCIN/POLYMYX/HYDROCORT OT SOLN 10 ML BTL OT SCH ×4 (09:45→19:27)
[2017-03-20] MEDS: CIPROFLOXACIN 500 MG TAB PO SCH ×2 (09:45→19:31)
[2017-03-20] MEDS: FLUTICASONE/SALMETEROL 250/50 (ADVAIR) 14 PUFF/1 INHALER INH SCH ×2 (09:45→19:27)
[2017-03-20] MEDS: DICYCLOMINE HCL 10 MG CAP PO SCH ×2 (09:45→19:29)
[2017-03-20] MEDS ORDERED: DEXTROSE 5% 500ML 500 ML IV ONE (11:00)
[2017-03-20 14:57] VITALS: BP 137/87; PULSE 87; TEMP 36.9; O2SAT 99
[2017-03-20] MEDS: ACETAMINOPHEN 325 MG TAB PO PRN (16:34)
--- NOTE | 2017-03-20 16:38 | Progress Note ---
Internal Med Progress Note Date of Service: Mar 20, 2017. Provider Documentation: SUBJECTIVE: ear pain improved but still feels full afebrile mild abdominal discomfort no blood in stools OBJECTIVE: Vital Signs-as noted below Exam: General-alert and oriented. Not in distress ENT-normal hearing. Right ear external membranes mildly erythematous Neck-no neck masses Lungs-cta b/l no wheezing mild bibasilar crackles present Heart-s1 and s2 heard regular rhythm, no murmurs Abdomen-soft bowel sounds present non tender no distension Extremities Mild edema no erythema Neuro-alert and oriented moves extremities Lab data as noted below. ASSESSMENT & PLAN: SEPSIS AND LOWER GI BLEED DUE TO COLITIS Bacteremia multi organ disease from e.coli presenting with 2 weeks of bloody diarrhea; in the ED, found to have severe right sided colitis on CT meets sepsis criteria: WBC 15K, tachycardia; BP stable, lactic acid normal was on Azactam, cipro and flagyl blood cx e.coli ryan sensitive ID ok for cipro and to complete 14day course since shiga toxin negate and also bacteremia mostlikely not toxigenic e.coli as per ID and recommends abx usage improving change cipro to po and will complete 10-14 day course improving and stable ARF presenting with creat 3.8 (baseline 1.) cr 1.3 today on gentle fluids as per nephrology slow improvement f/u labs Metabolic acidosis from above a dose of bicarb given f/u labs THROMBOCYTOPENIA likely due to sepsis HUS? due to ARF with toxigenic E. Coli with colitis - peripheral smear shows schistocytes resolved Bloody diarrhea supportive care resolved Anemia acute blood loss from above hb 8.0 03/14/17 Transfused one unit of prbc hb 7.2 03/19/17 s/p two units of prbc hb 9.3 today f/u labs Right ear pain external otitis started on Cortisporin ear drops improving HX NSVT on Verapamil ASTHMA no signs of acute exacerbation to continue home inhalers MIGRAINES to continue home meds, PRN Nucynta HYPOTHYROIDISM on levothyroxine Left upper and lower extremity edema stopped fluids Doppler negative for dvt DVT PROPHYLAXIS SCDs for now DISPOSITION to be determined ambulate in [address] pt/ot Vital Signs: Date Time Temp Pulse Resp B/P (MAP) Pulse Ox O2 Delivery O2 Flow Rate FiO2 03/20/17 14:57 36.9 87 20 137/87 (104) 99 Room Air 03/20/17 08:40 Room Air 03/20/17 07:04 36.6 80 20 132/77 (95) 97 Room Air 03/20/17 01:00 99 Room Air 03/20/17 00:35 36.9 90 18 132/79 99 03/19/17 23:38 37.1 84 18 141/95 99 03/19/17 23:09 36.9 87 18 144/88 99 03/19/17 22:35 36.9 99 18 152/95 99 03/19/17 22:20 36.8 91 18 150/90 99 03/19/17 21:50 37.0 91 20 146/97 100 03/19/17 20:35 36.6 90 18 154/93 99 03/19/17 19:05 36.6 90 18 144/88 99 03/19/17 18:35 36.5 87 18 144/90 97 03/19/17 18:20 36.9 93 18 163/103 03/19/17 18:05 36.7 86 18 162/98 03/19/17 17:50 99 03/19/17 17:47 36.6 90 18 154/95 Lab Results: Results Past 24 Hours Test 03/20/17 05:12 Range/Units White Blood Count 9.67 4.8-10.8 K/uL Red Blood Count 3.01 4.2-5.4 M/uL Hemoglobin 9.3 12.0-16.0 g/dL Hematocrit 28.1 37-47 % Mean Corpuscular Volume 93.4 80-100 fL Mean Corpuscular Hemoglobin 30.9 25-34 pg Mean Corpuscular Hemoglobin Concent 33.1 32-36 g/dl Platelet Count 295 130-400 K/uL Mean Platelet Volume 11.0 7.4-10.4 fL Neutrophils (%) (Auto) 80.0 % Lymphocytes (%) (Auto) 12.9 % Monocytes (%) (Auto) 6.1 % Eosinophils (%) (Auto) 0.4 % Basophils (%) (Auto) 0.1 % Neutrophils # (Auto) 7.73 1.4-6.5 K/uL Lymphocytes # (Auto) 1.25 1.2-3.4 K/uL Monocytes # (Auto) 0.59 0.11-0.59 K/uL Eosinophils # (Auto) 0.04 0-0.5 K/uL Basophils # (Auto) 0.01 0-0.2 K/uL RDW Standard Deviation 55.4 36.4-46.3 fL RDW Coefficient of Variation 18.9 11.5-14.5 % Immature Granulocyte % (Auto) 0.5 % Immature Granulocyte # (Auto) 0.05 0.00-0.02 K/uL Nucleated RBC Absolute Count (auto) 0.02 0-0 K/uL Nucleated Red Blood Cells % 0.2 % Echinocytes 1+ Schistocytes 1+ Sodium Level 147 136-145 mmol/L Potassium Level 3.7 3.5-5.1 mmol/L Chloride Level 121 98-107 mmol/L Carbon Dioxide Level 19 21-32 mmol/L Anion Gap 7.0 3-11 mmol/L Blood Urea Nitrogen 20 7-18 mg/dl Creatinine 1.30 0.60-1.20 mg/dl Est Creatinine Clear Calc Drug Dose 51.3 ml/min Estimated GFR () 53.5 Estimated GFR (Non- 46.1 BUN/Creatinine Ratio 15.1 10-20 Random Glucose 88 70-99 mg/dl Calcium Level 8.0 8.5-10.1 mg/dl Magnesium Level 2.1 1.8-2.4 mg/dl
[2017-03-20 19:30] VITALS: BP 152/100; PULSE 83
[2017-03-20] MEDS: FEXOFENADINE HCL 180 MG TAB PO SCH (22:06)
[2017-03-20] MEDS: MONTELUKAST SOD 10 MG TAB PO SCH (22:07)
[2017-03-20] MEDS: AMITRIPTYLINE HCL 25 MG TAB PO SCH (22:07)
[2017-03-20] MEDS: ROPINIROLE HCL 1 MG TAB PO SCH (22:09)
[2017-03-20 23:39] VITALS: BP 148/92; PULSE 81; TEMP 36.7; O2SAT 96
[2017-03-21] MEDS: MoRPHine SULFATE 4 MG/ML 1 ML CARP\\VIAL IV PRN ×3 (01:25→15:19)
[2017-03-21 05:26] LABS: HEMATOCRIT 26.5 % (37-47); MEAN CORPUSCULAR HEMOGLOBIN 31.2 pg (25-34); MEAN CORPUSCULAR HGB CONC 33.2 g/dl (32-36); MEAN PLATELET VOLUME 9.9 fL (7.4-10.4); PLATELET COUNT 308 K/uL (130-400); RED BLOOD COUNT 2.82 M/uL (4.2-5.4)
[2017-03-21 05:45] LABS: ANISOCYTOSIS PRESENT; BASO % 0.2 %; BASO ABS # 0.02 K/uL (0-0.2); COMPLETE YES; EOS % 0.7 %; IG% 0.2 %; LYMPH % 18.3 %; MONO % 6.3 %; NEUT % 74.3 %; SCHISTOCYTES 1+
[2017-03-21 05:52] LABS: BUN/CREATININE RATIO 14.8 (10-20); CALCIUM 7.9 mg/dl (8.5-10.1); CREATININE 1.1 mg/dl (0.60-1.20); MAGNESIUM 1.9 mg/dl (1.8-2.4); POTASSIUM 3.6 mmol/L (3.5-5.1)
[2017-03-21] MEDS: LEVOTHYROXINE 100 MCG TAB PO SCH (05:59)
[2017-03-21] MEDS: SUCRALFATE 1 GM TAB PO SCH ×3 (05:59→16:55)
[2017-03-21 07:53] VITALS: BP 133/83; PULSE 80; TEMP 36.7; O2SAT 96
[2017-03-21] MEDS: ONDANSETRON INJ 2 MG/ML 2 ML VIAL IV PRN (09:00)
[2017-03-21] MEDS: FLUTICASONE/SALMETEROL 250/50 (ADVAIR) 14 PUFF/1 INHALER INH SCH (09:01)
[2017-03-21] MEDS: NEOMYCIN/POLYMYX/HYDROCORT OT SOLN 10 ML BTL OT SCH ×3 (09:06→16:55)
[2017-03-21] MEDS: CHOLECALCIFEROL 1000 INTER.UNIT TAB PO SCH (10:08)
[2017-03-21] MEDS: RANITIDINE HCL 150 MG TAB PO SCH (10:08)
[2017-03-21] MEDS: MULTIVITAMIN TAB PO SCH (10:08)
[2017-03-21] MEDS: VERAPAMIL HCL 40 MG TAB PO SCH (10:08)
[2017-03-21] MEDS: DICYCLOMINE HCL 10 MG CAP PO SCH (10:09)
[2017-03-21] MEDS: PANTOprazole SOD 40 MG TAB PO SCH (10:09)
[2017-03-21] MEDS: CIPROFLOXACIN 500 MG TAB PO SCH (10:09)
[2017-03-21] MEDS: SODIUM BICARBONATE 650 MG TAB PO SCH ×2 (10:10→13:47)
[2017-03-21] MEDS: FERROUS SULFATE 325 MG TAB PO SCH ×3 (10:10→16:55)
[2017-03-21] MEDS: TOPIRAMATE 100 MG TAB PO SCH (11:02)
[2017-03-21 15:05] VITALS: BP 145/93; PULSE 90; TEMP 36.6; O2SAT 97
[2017-03-21] MEDS ORDERED: CPR500 PO ×2 (16:04→16:06)
[2017-03-21] MEDS ORDERED: LCTX PO (16:05)
--- NOTE | 2017-03-21 16:10 | Discharge Instructions ---
Discharge Instructions Date of Service Mar 21, 2017. Admission Reason for Admission: Colitis Discharge Discharge Diagnosis / Problem: colitis, sepsis,bloddy diarrhea bacteremia, arf , thrombocytopnenia, anemia Discharge Goals Goal(s): Decrease discomfort, Improve function Activity Recommendations Activity Limitations: resume your previous activity . Instructions / Follow-Up Instructions / Follow-Up FOLLOWUP WITH FAMILY DOCTOR Christiano Mcneill ON Mar AT 2;45PM FOLLOWUP WITH GI IN 6-8 WEEKS FOR COLONOSCOPY LAB: CBC AND BMP WITH MG LEVELS IN ONE WEEK AND FOLLOW RESULTS WITH FAMILY DOCTOR. TO DRINK ADEQUATE WATER AT LEAST ABOUT 2LTS A DAY. Current Hospital Diet Patient's current hospital diet: Regular Diet, Low Fiber Diet Discharge Diet Recommended Diet: Regular Diet, Low Fiber Diet (LOW FIBER DIET FOR FEW DAYS) Pending Studies Studies pending at discharge: no Medical Emergencies . Who to Call and When: Medical Emergencies: If at any time you feel your situation is an emergency, please call 911 immediately. . Non-Emergent Contact Non-Emergency issues call your: Primary Care Provider . . "Provider Documentation" section prepared by Marcel Coello. . VTE Core Measure Inpt VTE Proph given/why not?: Treatment not indicated
[2017-03-21 16:36] VITALS: BP 145/93; PULSE 90; TEMP 36.6; O2SAT 97
--- NOTE | 2017-03-21 17:19 | Progress Note ---
Internal Med Progress Note Date of Service: Mar 21, 2017. Provider Documentation: SUBJECTIVE: resting comfortably afebrile no nausea eating ok some pain while defecating but no blood in stool ok to go home OBJECTIVE: Vital Signs-as noted below Exam: General-alert and oriented. Not in distress ENT-normal hearing. Right ear external membranes mildly erythematous Neck-no neck masses Lungs-cta b/l no wheezing mild bibasilar crackles present Heart-s1 and s2 heard regular rhythm, no murmurs Abdomen-soft bowel sounds present non tender no distension Extremities Mild edema no erythema Neuro-alert and oriented moves extremities Lab data as noted below. ASSESSMENT & PLAN: SEPSIS AND LOWER GI BLEED DUE TO COLITIS Bacteremia multi organ disease from e.coli presenting with 2 weeks of bloody diarrhea; in the ED, found to have severe right sided colitis on CT meets sepsis criteria: WBC 15K, tachycardia; BP stable, lactic acid normal was on Azactam, cipro and flagyl blood cx e.coli ryan sensitive ID ok for cipro and to complete 14day course since shiga toxin negate and also bacteremia mostlikely not toxigenic e.coli as per ID and recommends abx usage improving change cipro to po and will complete 10-14 day course improving and stable d/estefania home on po cipro 5 more days f/u with pcp and gi needs colonoscopy in 6-8 weeks ARF presenting with creat 3.8 (baseline 1.) cr 1.1 today fluids stopped as per nephrology f/u labs in one week Metabolic acidosis from above bicarb given in hospital f/u labs THROMBOCYTOPENIA likely due to sepsis HUS? due to ARF with toxigenic E. Coli with colitis - peripheral smear shows schistocytes resolved Bloody diarrhea supportive care resolved Anemia acute blood loss from above hb 8.0 03/14/17 Transfused one unit of prbc hb 7.2 03/19/17 s/p two units of prbc hb 8.8 today f/u labs in one week Right ear pain external otitis started on Cortisporin ear drops improving f/u with pcp. HX NSVT on Verapamil ASTHMA no signs of acute exacerbation to continue home inhalers MIGRAINES to continue home meds, PRN Nucynta HYPOTHYROIDISM on levothyroxine Left upper and lower extremity edema stopped fluids Doppler negative for dvt Discharged home Vital Signs: Date Time Temp Pulse Resp B/P (MAP) Pulse Ox O2 Delivery O2 Flow Rate FiO2 03/21/17 16:36 36.6 90 20 97 Room Air 03/21/17 15:05 36.6 90 20 145/93 (110) 97 Room Air 03/21/17 10:28 Room Air 03/21/17 07:53 36.7 80 6 133/83 (100) 96 Room Air 03/21/17 00:02 Room Air 03/20/17 23:39 36.7 81 20 148/92 (110) 96 Room Air 03/20/17 19:30 83 152/100 (117) Lab Results: Results Past 24 Hours Test 03/21/17 05:06 Range/Units White Blood Count 8.20 4.8-10.8 K/uL Red Blood Count 2.82 4.2-5.4 M/uL Hemoglobin 8.8 12.0-16.0 g/dL Hematocrit 26.5 37-47 % Mean Corpuscular Volume 94.0 80-100 fL Mean Corpuscular Hemoglobin 31.2 25-34 pg Mean Corpuscular Hemoglobin Concent 33.2 32-36 g/dl Platelet Count 308 130-400 K/uL Mean Platelet Volume 9.9 7.4-10.4 fL Neutrophils (%) (Auto) 74.3 % Lymphocytes (%) (Auto) 18.3 % Monocytes (%) (Auto) 6.3 % Eosinophils (%) (Auto) 0.7 % Basophils (%) (Auto) 0.2 % Neutrophils # (Auto) 6.08 1.4-6.5 K/uL Lymphocytes # (Auto) 1.50 1.2-3.4 K/uL Monocytes # (Auto) 0.52 0.11-0.59 K/uL Eosinophils # (Auto) 0.06 0-0.5 K/uL Basophils # (Auto) 0.02 0-0.2 K/uL RDW Standard Deviation 60.9 36.4-46.3 fL RDW Coefficient of Variation 19.3 11.5-14.5 % Immature Granulocyte % (Auto) 0.2 % Immature Granulocyte # (Auto) 0.02 0.00-0.02 K/uL Anisocytosis PRESENT Schistocytes 1+ Sodium Level 147 136-145 mmol/L Potassium Level 3.6 3.5-5.1 mmol/L Chloride Level 120 98-107 mmol/L Carbon Dioxide Level 20 21-32 mmol/L Anion Gap 7.0 3-11 mmol/L Blood Urea Nitrogen 16 7-18 mg/dl Creatinine 1.10 0.60-1.20 mg/dl Est Creatinine Clear Calc Drug Dose 60.6 ml/min Estimated GFR () 65.5 Estimated GFR (Non- 56.5 BUN/Creatinine Ratio 14.8 10-20 Random Glucose 86 70-99 mg/dl Calcium Level 7.9 8.5-10.1 mg/dl Magnesium Level 1.9 1.8-2.4 mg/dl
--- NOTE | 2017-03-21 17:47 | Discharge Summary ---
Discharge Summary Date of Service Mar 21, 2017. Discharge Summary Admission Date: Mar 12, 2017 at 14:24 Discharge Date: Mar 21, 2017 Discharge Disposition: Home with services Principal Diagnosis: COLITIS SEPSIS BACTEREMIA BLOODY DIARRHEA ANEMIA ARF THROMBOCYTOPENIA Secondary Diagnoses/Problems: (1) Asthma, severe persistent Status: Chronic (2) Celiac disease Status: Chronic (3) Chronic Pancreatitis Status: Chronic (4) Depressive Disorder Nec Status: Chronic (5) Dyslipidemia Status: Chronic (6) Gastroparesis Status: Chronic (7) GERD (gastroesophageal reflux disease) Status: Chronic (8) Hypothyroidism Status: Chronic (9) IBS (irritable bowel syndrome) Status: Chronic (10) CHARLES (iron deficiency anemia) Status: Chronic (11) Lumbago Status: Chronic (12) Lumbar Disc Displacement Status: Chronic (13) Lumbosacral Neuritis Nos Status: Chronic (14) MRSA (methicillin resistant Staphylococcus aureus) Status: Chronic (15) NSVT (nonsustained ventricular tachycardia) Status: Chronic (16) CYNTHIA (obstructive sleep apnea) Status: Chronic Procedures: CT ABD/PELVIS: 1. Extensive right-sided colonic wall thickening with infiltration of the pericolonic fat. There are additional areas of less pronounced colonic wall thickening. The findings are indicative of a severe nonspecific colitis. 2. Mild left-sided hydronephrosis with a dilated left-sided extrarenal pelvis. There is no ureteral dilatation. 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 19 mm left adrenal adenoma 4. Prominent ileocolic lymph nodes likely reactive 5. Small right pleural effusion 6. No evidence of bowel obstruction CXR: 1. Mild pulmonary vascular congestion/fluid overload 2. No evidence of focal pulmonary consolidation 3. Possible small subpulmonic pleural effusions LEFT UPPER EXTREMITY US: No evidence of left upper extremity DVT LEFT LOWER EXTREMITY US: Normal study ECHO: * There is borderline concentric left ventricular hypertrophy. * Ejection Fraction = 60-65%. * The right ventricular systolic function is normal. * The left atrial size is normal. * Right atrial size is normal. No significant vavular pathology Consultations: GI NEPHROLOGY ID Medication Reconciliation New Medications: Lactobacillus Acidophilus (Lactinex) Tab 2 TAB PO BID for 10 Days, TAB Ciprofloxacin (Ciprofloxacin HCl) 500 Mg Tab 500 MG PO BID, #10 TAB Continued Medications: Amitriptyline Hcl (Elavil) 75 Mg Tab 75 MG PO HS, TAB Aspirin (Aspirin Chewable) 81 Mg Chew 81 MG PO HS, TAB Azelastine Hcl (Astelin Nasal [place]) 200 Sprays/30 Ml [place] 1 SPRAYS NA BID, BTL Cholecalciferol (Vitamin D3) 1,000 Unit Tab 2 TAB PO DAILY for 30 Days, #60 TAB 5 Refills Epinephrine (Epipen *) 0.3 Mg Inj 0.3 MG IM UD Ferrous Sulfate (Fe Tabs) 325 Mg Tab 325 MG PO QID, TAB Fexofenadine Hcl (Yuliya) 180 Mg Tab 180 MG PO HS, TAB Hyoscyamine Sulfate (Hyoscyamine Sulfate Sr) 0.375 Mg Tab 1 TAB PO Q6H PRN for abdominal pain Ipratropium-Albuterol (Combivent Respimat) 1 Aer Aer 1 PUFFS INH QID PRN for Shortness of Breath, INH Levalbuterol (Levalbuterol HCl) 1.25 Mg/3 Ml Nebu 1 INHA INH TID PRN for SOB/Wheezing Levothyroxine Sodium (Synthroid) 100 Mcg Tab 100 MCG PO QAM, TAB Mometasone Furoate (Nasal) (Nasonex) 50 Mcg/ Spr 2 SPRAYS JACKLYN BID, BTL Mometasone Furoate-Formoterol (Dulera 200/5 Mcg) 1 Aer Aer 2 AER INH BID Montelukast Sodium (Singulair) 10 Mg Tab 10 MG PO HS, TAB Multiple Vitamin (Multivitamin) 1 Tab Tab 1 TAB PO QAM, TAB Ondansetron (Zofran Odt *) 4 Mg Soltab 4 MG SL Q8H PRN for Nausea, 0 Refills NAUSEA Prednisone (Prednisone) 20 Mg Tab 20 MG PO UD PRN for ASTHMA RESCUE KIT, TAB TAKE 2 TABLETS DAILY WITH FOOD FOR 5 DAYS PREDNISONE BURST FOR ASTHMA RESCUE KIT. Rabeprazole Sodium (Aciphex *) 20 Mg Tabcr 40 MG PO BID, 0 Refills Ranitidine Hcl (Zantac) 300 Mg Tab 300 MG PO BID, TAB Ropinirole Hydrochloride (Requip) 1 Mg Tab 1.5 MG PO HS, TAB Sucralfate (Carafate) 1 Gm Tab 1 GM PO QID, TAB Tapentadol Hcl (Nucynta) 100 Mg Tab 100 MG PO Q6H PRN for Headache Topiramate (Topamax ) 25 Mg Tab 100 MG PO BID, TAB Umeclidinium [place] (Incruse Ellipta) 62.5 Mcg/Inh Inh 1 PUFF INH DAILY Verapamil (Calan) 40 Mg Tab 40 MG PO BID, TAB [Home O2] () 2 LITERS NA HS WITH CPAP @ HS Admission Information HPI (per Admitting provider): 56 year old female who presents to the ER with diarrhea. She reports her symptoms have been present for two weeks. She reports diarrhea has been bloody/ dark red. She reports multiple episodes per day. She has had a few episodes of vomiting. She denies hematemesis or coffee ground emesis. Last night she reports a nose bleed which was dripping into the back of her throat which made her cough up some of the blood and phlegm. She developed right sided abdominal pain yesterday. She reports she mostly has only taken in liquids for the past couple of weeks. She denies chest pain and shortness of breath. She reports mild lightheadedness and dizziness but denies any syncopal events. She reports low grade fevers. Last week she noticed some hematuria which has since resolved. In the ED, patient underwent CT abd/pelvis that is showing extensive right sided colitis. WBC 15K, creat 3.8 (baseline ~ 1), platelets 42 (normal baseline), mildly tachycardic in the low 100s. IVF, IV dilaudid, and IV Reglan. Physical Exam (per Admitting): General Appearance: no apparent distress Head: normocephalic, atraumatic Eyes: normal inspection, sclerae normal ENT: hearing grossly normal Neck: supple, no JVD Respiratory/Chest: lungs clear, normal breath sounds, no respiratory distress Cardiovascular: no edema, + tachycardia (HR in the low 100s, rhythm regular) Abdomen/GI: normal bowel sounds, soft, + tenderness (left abdomen) Extremities/Musculoskelatal: normal inspection, no calf tenderness Neurologic/Psych: no motor/sensory deficits, alert, normal mood/affect, oriented x 3 Skin: normal color, warm/dry Hospital Course SEPSIS AND LOWER GI BLEED DUE TO COLITIS Bacteremia multi organ disease from e.coli presenting with 2 weeks of bloody diarrhea; in the ED, found to have severe right sided colitis on CT meets sepsis criteria: WBC 15K, tachycardia; BP stable, lactic acid normal was on Azactam, cipro and flagyl blood cx e.coli ryan sensitive ID ok for cipro and to complete 14day course since shiga toxin negate and also bacteremia mostlikely not toxigenic e.coli as per ID and recommends abx usage improving change cipro to po and will complete 10-14 day course improving and stable d/estefania home on po cipro 5 more days f/u with pcp and gi needs colonoscopy in 6-8 weeks ARF presenting with creat 3.8 (baseline 1.) cr 1.1 today fluids stopped as per nephrology f/u labs in one week Metabolic acidosis from above bicarb given in hospital f/u labs THROMBOCYTOPENIA likely due to sepsis HUS? due to ARF with toxigenic E. Coli with colitis - peripheral smear shows schistocytes resolved Bloody diarrhea supportive care resolved Anemia acute blood loss from above hb 8.0 03/14/17 Transfused one unit of prbc hb 7.2 03/19/17 s/p two units of prbc hb 8.8 today f/u labs in one week Right ear pain external otitis started on Cortisporin ear drops improving f/u with pcp. HX NSVT on Verapamil ASTHMA no signs of acute exacerbation to continue home inhalers MIGRAINES to continue home meds, PRN Nucynta HYPOTHYROIDISM on levothyroxine Left upper and lower extremity edema stopped fluids Doppler negative for dvt Discharged home Total time spent on discharge = 35MINUTES This includes examination of the patient, discharge planning, medication reconciliation, and communication with other providers. Discharge Instructions Discharge Instructions Date of Service Mar 21, 2017. Admission Reason for Admission: Colitis Discharge Discharge Diagnosis / Problem: colitis, sepsis,bloddy diarrhea bacteremia, arf , thrombocytopnenia, anemia Discharge Goals Goal(s): Decrease discomfort, Improve function Activity Recommendations Activity Limitations: resume your previous activity . Instructions / Follow-Up Instructions / Follow-Up FOLLOWUP WITH FAMILY DOCTOR Christiano Mcneill ON Mar AT 2;45PM FOLLOWUP WITH GI IN 6-8 WEEKS FOR COLONOSCOPY LAB: CBC AND BMP WITH MG LEVELS IN ONE WEEK AND FOLLOW RESULTS WITH FAMILY DOCTOR. TO DRINK ADEQUATE WATER AT LEAST ABOUT 2LTS A DAY. Current Hospital Diet Patient's current hospital diet: Regular Diet, Low Fiber Diet Discharge Diet Recommended Diet: Regular Diet, Low Fiber Diet (LOW FIBER DIET FOR FEW DAYS) Pending Studies Studies pending at discharge: no Medical Emergencies . Who to Call and When: Medical Emergencies: If at any time you feel your situation is an emergency, please call 911 immediately. . Non-Emergent Contact Non-Emergency issues call your: Primary Care Provider . . "Provider Documentation" section prepared by Marcel Coello.
== END 2017-03-21 17:00 | disposition home health service (06) | DRG 871 ==
LOC: C.EDC 11:19 → EDBD 11:19 → C.2T 14:24 → ENRESERV 15:14 → C.MS4W 03-15 15:16
PROVIDERS: ADMIT Family Medicine; ATTEND Internal Medicine
DX: A41.51 Sepsis due to Escherichia coli [E. coli] (principal); N17.0 Acute kidney failure with tubular necrosis; K86.1 Other chronic pancreatitis; I47.2 Ventricular tachycardia; E87.2 Acidosis; D62 Acute posthemorrhagic anemia; R65.20 Severe sepsis without septic shock; K52.9 Noninfective gastroenteritis and colitis, unspecified; J45.909 Unspecified asthma, uncomplicated; F32.9 Major depressive disorder, single episode, unspecified; K21.9 Gastro-esophageal reflux disease without esophagitis; Z86.14 Personal history of Methicillin resistant Staphylococcus aureus infection; E03.9 Hypothyroidism, unspecified; G47.33 Obstructive sleep apnea (adult) (pediatric); Z88.2 Allergy status to sulfonamides; H60.91 Unspecified otitis externa, right ear; G43.909 Migraine, unspecified, not intractable, without status migrainosus; M51.26 Other intervertebral disc displacement, lumbar region; K90.0 Celiac disease; G25.81 Restless legs syndrome; Z88.0 Allergy status to penicillin

== ENCOUNTER 2017-08-16 06:28 | Emergency (ER) | payer OTHER ==
[~2017-08-16] VITALS: Ht 165.1 cm; Wt 73.3 kg
[~2017-08-16 06:28] MED LIST changes: +CHOL1000 PO; +CPR500 PO; -ERGO1CAP35 PO; -LEVA1.25 INH; -NPR375 PO; +XPNINS125 INH
[2017-08-16 06:33] VITALS: TEMP 36.7; Ht 165.1 cm; Wt 73.3 kg
[2017-08-16] MEDS ORDERED: LIDOCAINE 4% W/AFRIN NASAL SOLN 4ML ONE (07:08)
--- NOTE | 2017-08-16 07:23 | EMERGENCY ROOM VISIT NOTE ---
History Report prepared by Bernard: Peter Gray Under the Supervision of: Dr. Claudio Deras D.O. First contact with patient: 07:03 Chief Complaint: NOSE BLEED (MINOR) Stated Complaint: NOSE BLEED History of Present Illness The patient is a 57 year old female who presents to the Emergency Room with complaints of a constant and severe nose bleed that she noticed when she woke this morning at 0510, two hours prior to arrival. The patient states that her nose is currently bleeding from both naris. She notes that she does not have a septum due to an infection following a rhinoplasty procedure many years ago. The patient has had nosebleeds in the past. Her most recent nosebleed was four days ago, which she was able to stop on her own. The patient is on Baby Aspirin daily and has been diagnosed with Factor V Clotting Disorder. Source of History: patient Onset: 2 hours [employer] Position: other (Nose) Symptom Intensity: severe Quality: other (Nosebleed) Timing: constant Review of Systems See HPI for pertinent positives & negatives. A total of 10 systems reviewed and were otherwise negative. Past Medical & Surgical Medical Problems: (1) Asthma, severe persistent (2) Celiac disease (3) Chronic Pancreatitis (4) Depressive Disorder Nec (5) Dyslipidemia (6) Gastroparesis (7) GERD (gastroesophageal reflux disease) (8) Hypothyroidism (9) IBS (irritable bowel syndrome) (10) CHARLES (iron deficiency anemia) (11) Lumbago (12) Lumbar Disc Displacement (13) Lumbosacral Neuritis Nos (14) MRSA (methicillin resistant Staphylococcus aureus) (15) NSVT (nonsustained ventricular tachycardia) (16) CYNTHIA (obstructive sleep apnea) Surgical Problems: (1) History of arthroscopic knee surgery (2) Hx of cardiac cath (3) Hx of cholecystectomy (4) S/P nasal surgery (5) S/P surgery on nasal septum (6) S/P GLENYN-BSO Family History FH: heart disease FATHER Stroke MOTHER Social History Smoking Status: Never Smoker Alcohol Use: none Drug Use: none Current/Historical Medications Scheduled Amitriptyline Hcl (Elavil), 75 MG PO HS Aspirin (Aspirin Chewable), 81 MG PO HS Azelastine Hcl (Astelin Nasal [place]), 1 SPRAYS NA BID Cholecalciferol (Vitamin D3), 2 TAB PO DAILY Epinephrine (Epipen *), 0.3 MG IM UD Ferrous Sulfate (Fe Tabs), 325 MG PO QID Fexofenadine Hcl (Yuliya), 180 MG PO HS Levothyroxine Sodium (Synthroid), 100 MCG PO QAM Mometasone Furoate (Nasal) (Nasonex), 2 SPRAYS JACKLYN BID Mometasone Furoate-Formoterol (Dulera 200/5 Mcg), 2 AER INH BID Montelukast Sodium (Singulair), 10 MG PO HS Multiple Vitamin (Multivitamin), 1 TAB PO QAM Rabeprazole Sodium (Aciphex *), 40 MG PO BID Ranitidine Hcl (Zantac), 300 MG PO BID Ropinirole Hydrochloride (Requip), 1.5 MG PO HS Sucralfate (Carafate), 1 GM PO QID Topiramate (Topamax ), 100 MG PO BID Umeclidinium [place] (Incruse Ellipta), 1 PUFF INH DAILY Verapamil (Calan), 40 MG PO BID [Home O2], 2 LITERS NA HS Scheduled PRN Hyoscyamine Sulfate (Hyoscyamine Sulfate Sr), 1 TAB PO Q6H PRN for abdominal pain Ipratropium-Albuterol (Combivent Respimat), 1 PUFFS INH QID PRN for Shortness of Breath Levalbuterol (Levalbuterol HCl), 1 INHA INH TID PRN for SOB/Wheezing Ondansetron (Zofran Odt *), 4 MG SL Q8H PRN for Nausea Prednisone (Prednisone), 20 MG PO UD PRN for ASTHMA RESCUE KIT Tapentadol Hcl (Nucynta), 100 MG PO Q6H PRN for Headache Allergies Coded Allergies: BEE STING (Verified Allergy, Severe, ANAPHYLAXIS, 08/16/17) Was allergic to earlier IV iron compounds but is currently receiving IV Iron at [facility] Cefaclor (Verified Allergy, Severe, CECLOR - SOB;RASH; UPSET STOMACH, 08/16) Coconut (Verified Allergy, Severe, RASH; SOB, 08/16/17) Iron (Verified Allergy, Severe, SOB,TACHY WITH IV IRON, 08/16/17) Latex (Verified Allergy, Severe, SOB;RASH;BEET RED SKIN; ANAPHYLAXIS, 08/16) Penicillins (Verified Allergy, Severe, SOB;RASH; TONGUE SWELLING; ANAPHYLAXIS, 08/16/17) Sulfa Antibiotics (Verified Allergy, Severe, SOB;RASH; ANAPHYLAXIS, ) Tetracycline (Verified Allergy, Severe, SOB;RASH; N/V, 08/16/17) Lactose (Verified Allergy, Mild, RASH; BLOATING; DIARRHEA; VOMITING, ) Egg (Verified Allergy, Unknown, RASH, 08/16/17) Influenza Vaccine Live (Verified Allergy, Unknown, __, 08/16/17) Quinolones (Verified Allergy, Unknown, ALLERGY TO [place] ,CAN TAKE CIPRO OR LEVAQUIN W/O RXN, 08/16/17) Gluten (Verified Adverse Reaction, Unknown, CELIAC'S, 08/16/17) Physical Exam Vital Signs Date Time Temp Pulse Resp B/P (MAP) Pulse Ox O2 Delivery O2 Flow Rate FiO2 08/16/17 08:52 88 18 133/73 97 Room Air 08/16/17 06:33 36.7 117 22 118/67 98 Room Air Physical Exam CONSTITUTIONAL/VITAL SIGNS: Reviewed / noted above. GENERAL: Non-toxic in appearance. INTEGUMENTARY: Warm, dry, and [place]. HEAD: Normocephalic. NOSE: There is gross bleeding seen from bilateral naris, seems to be slightly more prominent on the right. No septum is present as per history. EYES: without scleral icterus or trauma. ENT/OROPHARYNX: clear and moist. LYMPHADENOPATHY/NECK: Is supple without lymphadenopathy or meningismus. RESPIRATORY: Lungs clear and equal. CARDIOVASCULAR: Regular rate and rhythm. GI/ABDOMEN: Soft and nontender. No organomegaly or pulsatile mass. No rebound or guarding. Normal bowel sounds. EXTREMITIES: Warm and well perfused. BACK: No CVA tenderness. NEUROLOGICAL: Intact without focal deficits. PSYCHIATRIC: normal affect. MUSCULOSKELETAL: Normally developed with good muscle tone. Medical Decision & Procedures Medications Administered Medications (Trade) Dose Ordered Sig/Zo Route Start Time Stop Time Status Last Admin Dose Admin Acetaminophen (Tylenol Tab) 1,000 mg NOW STAT PO 08/16/17 08:52 08/16/17 08:53 DC 08/16/17 08:58 1,000 MG ED Course 0704: Previous medical records were reviewed. The patient was evaluated in room A12B. A complete history and physical examination was performed. 0708: Ordered Lidocaine HCl 4 mL 0709: After evaluation of the patient I packed the nose to stop the bleeding. 0728: The nursing staff has made me aware that the packing is now saturated with blood. 0833: I checked on the patient at this time. She is doing well. The bleeding is slowing. 0852: Ordered Tylenol 1000 mg PO. 0944: On reevaluation, the patient is comfortable and the bleeding has stopped. I discussed the results and findings with the patient. She verbalized agreement of the treatment plan. The patient was discharged home. Medical Decision Etiologies such as anterior epistaxis, coagulopathy, traumatic injury, fracture , septal hematoma, posterior epistaxis as well as other pathologies were entertained. This is a 57-year-old female who presents to the ED with a chief complaint of a nosebleed. The patient states that she has no septum. She had surgery for this. She states that she is not on any blood thinners but does take baby aspirin a day. Her symptoms started around 5 AM this morning when her nose started to bleed. She reports that his bleeding from both nostrils. She has seen Dr. Justin in the past but not recently. Her exam reveals bleeding from the bilateral nares right greater than left. There is no obvious source of the bleeding noted on exam as there is moderate blood in the nares. The septum is missing. The patient was initially packed with Afrin-soaked cotton balls. This controlled the bleeding but did not stop the bleeding after it was removed. The patient then received activated thrombin in the bilateral nares as well as a compression device to the nose. This after a short period of time seems to have controlled the bleeding. She was given some Tylenol for headache. She was told to follow-up with Dr. Justin. She was observed for several hours here and her bleeding does not appear to continue. Impression Primary Impression: Epistaxis Scribe Attestation The scribe's documentation has been prepared under my direction and personally reviewed by me in its entirety. I confirm that the note above accurately reflects all work, treatment, procedures, and medical decision making performed by me. Departure Information Dispostion Home / Self-Care Referrals Christiano Muñoz M.D. (PCP) Sole Justin M.D. Patient Instructions [facility] Additional Instructions Avoid any trauma to the nose. Do not blow the nose. Follow-up with Dr. Justin. Call the office today for follow-up.
[2017-08-16] MEDS ORDERED: ACETAMINOPHEN 500 MG TAB PO STA (08:52)
[2017-08-16 09:50] VITALS: BP 115/70; PULSE 82; O2SAT 99
== END 2017-08-16 09:50 | disposition home or self-care (01) ==
LOC: C.EDB 06:29 → C.EDA 09:50
DX: R04.0 Epistaxis (principal); J45.909 Unspecified asthma, uncomplicated; K90.0 Celiac disease; K86.1 Other chronic pancreatitis; F32.9 Major depressive disorder, single episode, unspecified; E78.5 Hyperlipidemia, unspecified; K31.84 Gastroparesis; K21.9 Gastro-esophageal reflux disease without esophagitis; E03.9 Hypothyroidism, unspecified; K58.9 Irritable bowel syndrome, unspecified; D50.9 Iron deficiency anemia, unspecified; M54.17 Radiculopathy, lumbosacral region; Z86.14 Personal history of Methicillin resistant Staphylococcus aureus infection; G47.33 Obstructive sleep apnea (adult) (pediatric); Z82.49 Family history of ischemic heart disease and other diseases of the circulatory system; Z79.82 Long term (current) use of aspirin; Z79.899 Other long term (current) drug therapy; Z91.030 Bee allergy status; Z88.1 Allergy status to other antibiotic agents; Z88.0 Allergy status to penicillin; Z88.2 Allergy status to sulfonamides; Z88.7 Allergy status to serum and vaccine; Z91.012 Allergy to eggs; Z91.011 Allergy to milk products; Z91.018 Allergy to other foods

== ENCOUNTER 2021-04-06 13:41 | Inpatient (IN) ==
[2021-04-06 14:57] LABS: Appearance Urine Clear (Clear); Bilirubin Urine Negative (Negative); Blood Urine Negative (Negative); Color Urine Yellow; Glucose Urine UA Negative (Negative); Ketones Urine Negative (Negative); Leukocyte Esterase Urine Negative (Negative); Nitrite Urine Negative (Negative); Protein Urine Negative (Negative); Specific Gravity Urine 1.018 (1.000-1.030); Urobilinogen Urine Negative (Negative)
[2021-04-06] MEDS ORDERED: SODIUM CHLORIDE 0.9% 1000ML 2,000 ML IV ONE (15:07)
[2021-04-06] MEDS ORDERED: ONDANSETRON INJ 2 MG/ML 2 ML VIAL IV STA (15:07)
[2021-04-06] MEDS ORDERED: diphenhydrAMINE 50 MG/ML VIAL IV STA (15:07)
[2021-04-06] MEDS ORDERED: ACETAMINOPHEN 1,000 MG/100 ML VIAL IV STA (15:07)
[2021-04-06 16:30] LABS: INR 1.1 (0.9-1.1); Prothrombin Time 10.8 Seconds (9.0-12.0)
[2021-04-06 16:41] LABS: Albumin Level 2.7 gm/dl (3.4-5.0); BUN Creatinine Ratio 14.2 (10-20); Calcium 8.5 mg/dl (8.5-10.1); Creatinine Clr Calc Pharmacy 44.3 ml/min; Est GFR (African American) 55.6 ml/min; Potassium 3.6 mmol/L (3.5-5.1)
[2021-04-06 16:44] LABS: Albumin Globulin Ratio 0.8 (0.9-2); Bilirubin,Total 0.2 mg/dl (0.2-1); Globulin 3.4 gm/dl (2.5-4.0); Phosphorus 2.8 mg/dl (2.5-4.9); Total Protein 6.1 gm/dl (6.4-8.2)
[2021-04-06 16:54] LABS: Hematocrit (blood only) 28.2 % (37-47); Hemoglobin 8.1 g/dL (12.0-16.0); Mean Corpuscular Hemoglobin 20.8 pg (25-34); Mean Corpuscular Hgb Conc 28.7 g/dL (32-36); Mean Corpuscular Volume 72.3 fL (80-100); Platelet Count 291 K/uL (130-400); RDW Coefficient of Variation 17.7 % (11.5-14.5); RDW Standard Deviation 47.3 fL (36.4-46.3); White Blood Count 5.11 K/uL (4.8-10.8)
[2021-04-06 16:55] LABS: Basophils # (auto) 0.01 K/uL (0-0.2); Basophils % (auto) 0.2 %; Eosinophils # (auto) 0.02 K/uL (0-0.5); Eosinophils % (auto) 0.4 %; Hypochromasia Present; Lymphocytes # (auto) 0.93 K/uL (1.2-3.4); Lymphocytes % (auto) 18.2 %; Monocytes # (auto) 0.41 K/uL (0.11-0.59); Neutrophils # (auto) 3.74 K/uL (1.4-6.5); Neutrophils % (auto) 73.2 %
[2021-04-06] MEDS ORDERED: OPTIRAY 320 100ml IV ONE (16:56)
--- NOTE | 2021-04-06 17:10 | CT Scan Report ---
ABDOMEN AND PELVIS CT WITH IV CONTRAST CT DOSE: 283.54 mGy.cm HISTORY: Generalized abdominal pain. Bloody stool. TECHNIQUE: Multiaxial CT images of the abdomen and pelvis were performed following the use of intrave nous contrast. A dose lowering technique was utilized adhering to the principles of ALARA. COMPARISON STUDY: Abdomen and pelvis CT 03/12/2017. FINDINGS: The lung bases are clear. No fractures within the visualized osseous structures. Prior chol ecystectomy. Mild bile duct dilatation, unchanged. This is likely due to the patient's postcholecyste ctomy state. No hepatic or splenic masses. Normal right adrenal gland. The pancreas is unremarkable. There are 2 subcentimeter bilateral renal hypodense lesions measuring up to 9 mm. These are technical ly too small to characterize but statistically represent cysts. Stable mild left hydronephrosis sugge sting a chronic UPJ type obstruction. No right-sided hydronephrosis. There is a 2.4 cm left adrenal g land nodule. This is similar to the prior study and was previously demonstrated to be a benign adenom a. No retroperitoneal lymphadenopathy. Normal caliber abdominal aorta. The bladder is unremarkable. P rior hysterectomy. Moderate colonic wall thickening involving the descending colon and sigmoid colon with mild pericolonic fat stranding. This is consistent with a nonspecific colitis. Moderate stool wi thin the proximal to mid colon. Normal appendix. The main portal vein is patent. The celiac and mesen teric arteries are also patent. IMPRESSION: 1. Moderate colonic wall thickening involving the descending colon and sigmoid colon consistent with a nonspecific colitis. This favors an infectious or inflammatory process. 2. No evidence for bowel obstruction. 3. Normal appendix. 4. No change in the mild chronic left UPJ type obstruction. 5. A 2.4 cm left adrenal gland nodule. This likely represents a benign adenoma. ACT 112: Negative or not required by law. Electronically signed by: Wilton Fletcher M.D. 04/06/2021 5:09 PM
--- NOTE | 2021-04-06 17:47 | Emergency Department Note ---
Impression & Plan Colitis with rectal bleeding, Dehydration, Chronic anemia ED Provider Note NAME: SHAYY CARRILLO AGE: 60 SEX: F ARRIVES VIA: Walk-In INFORMANT: Patient, ED PROVIDER(S): Galo Otoole MD CHIEF COMPLAINT: Bloody diarrhea. PLAN: Disposition: Admit MEDICAL DECISION MAKING: The patient is a pleasant 60-year-old woman with a past medical history of gastroparesis, GERD,, asthma, CYNTHIA, celiac disease, IBS who presents to the emergency department for evaluation of generalized weakness, body aches with nausea and vomiting and bloody stool that has been ongoing for the past several days. She reports that she has had 2 episodes of bloody stool with her last just before coming to the emergency department. Prior to this she had 5 or more episodes on Wednesday and then Wednesday. She denies any objective fevers. She has any cough, congestion, chest pain, shortness of breath. She denies any known COVID-19 exposures. She is not vaccinated for COVID-19. She denies being on any blood thinners. On arrival the patient is fatigued and uncomfortable no acute distress, afebrile stable vital signs. She appears clinically dry. She has generalized abdominal discomfort without discrete tenderness. Rectal exam demonstrates scant maroon-c olored stool that is trace Hemoccult positive. There is no overt hemorrhage or melena. WBC and platelets within normal limits. H/H 8.1/28.2 similar to prior values. Chemistry without metabolic acidosis. Electrolytes and LFTs without significant abnormality. Lipase not elevated. UA without evidence of infection. COVID-[address] of the pelvis demonstrates nonspecific colitis. Upon reevaluation patient reported marginal improvement after IVF hydration, famotidine, Zofran, diphenhydramine but still feeling fatigued and unwell. She did agree with plan for admission for further observation. Will defer antibiotics at this time pending stool culture to exclude Shiga toxin. Case was discussed with Dr. Minor, [facility] hospitalist, who will evaluate the patient for admission. Triage Nursing notes reviewed and agree them. Prior medical records reviewed Vital Signs: reviewed and remarkable for no significant abnormalities Differential diagnosis: Diverticulosis, AVM, coagulopathy, colitis, inflammatory bowel disease, malignancy, Denisse-Smith tear, esophagitis, peptic ulcer disease, variceal bleed, gastritis, epistaxis, fissure, hemorrhoids, as well as other pathologies. ER treatment provided: See below. Diagnostics interpreted by me: Cardiac Monitoring: An order for continuous cardiac monitoring was placed and demonstrated nsr, 73 bpm, no ectopy Laboratory studies: See below Imaging studies: See below Consultation(s): Case was discussed with Dr. Minor, [facility] hospitalist, who will evaluate the patient for admission. HPI: The patient is a pleasant 60-year-old woman with a past medical history of gastroparesis, GERD,, asthma, CYNTHIA, celiac disease, IBS who presents to the emergency department for evaluation of generalized weakness, body aches with nausea and vomiting and bloody stool that has been ongoing for the past several days. She reports that she has had 2 episodes of bloody stool with her last just before coming to the emergency department. Prior to this she had 5 or more episodes on Wednesday and then Wednesday. She denies any objective fevers. She has any cough, congestion, chest pain, shortness of breath. She denies any known COVID-19 exposures. She is not vaccinated for COVID-19. She denies being on any blood thinners. ROS: See above HPI for pertinent positives & negatives. A total of 10 systems reviewed and were otherwise negative. PAST MEDICAL HISTORY:See Below PAST SURGICAL HISTORY:See Below FAMILY HISTORY:See Below SOCIAL HISTORY:See Below HOME MEDICATIONS:See Below ALLERGIES:See Below VITALS:See Below PHYSICAL EXAMINATION: GENERAL: Awake, alert, fatigued-appearing, in no distress HENT: Normocephalic, atraumatic. Oropharynx with dry mucous membranes and otherwise unremarkable. EYES: Normal conjunctiva. Sclera non-icteric. NECK: Supple. No nuchal rigidity. FROM. No JVD. RESPIRATORY: Clear to auscultation. CARDIAC: Regular rate, normal rhythm. Extremities warm and well perfused. Pulses equal. ABDOMEN: Soft, non-distended. No tenderness to palpation. No rebound or guarding. No masses. RECTAL: Scant maroon colored stool. Trace Hemoccult positive. No active hemorrhage or melena. MUSCULOSKELETAL: Chest examination reveals no tenderness. The back is symmetrical on inspection without obvious abnormality. There is no CVA tenderness to palpation. No joint edema. LOWER EXTREMITIES: Calves are equal size bilaterally and non-tender. No edema. No discoloration. NEURO: Normal sensorium. No sensory or motor deficits noted. SKIN: No rash or jaundice noted. Galo Otoole MD Past Med/Surg History Medical History Adrenal cyst monitoring Anxiety Asthma, severe persistent Celiac disease Chronic back pain Chronic obstructive pulmonary disease Degenerative disc disease Dyslipidemia Gastroparesis GERD (gastroesophageal reflux disease) Heart disease Hx of sepsis ~2017 treated at [facility]. Hypertension Hypothyroidism no current medication -- TSH normal without meds. IBS (irritable bowel syndrome) CHARLES (iron deficiency anemia) ferrous sulfate QID. Kidney stones no surgery Mitral valve prolapse follows with Dr Aguirre MRSA (methicillin resistant Staphylococcus aureus) 1999 dx nose septum wound 2019 dx in lungs Narcolepsy NSVT (nonsustained ventricular tachycardia) Osteoarthritis Sleep apnea CPAP -- have not used in about a year (it broke and has not yet been fixed) Surgical History History of arthroscopic knee surgery left History of bilateral tubal ligation History of section x1 History of colonoscopy History of dilatation and curettage History of esophagogastroduodenoscopy (EGD) Hx of cardiac cath "2009 - normal coronaries" Hx of cholecystectomy S/P nasal surgery S/P surgery on nasal septum "collapsed septum" s/p post op infection that "ate away the septum" S/P GLENNY-BSO Family History Other No family history of adverse response to anesthesia Social History Smoking Status: Never smoker Second Hand Exposure: Yes; Hx Alcohol Use: No Hx Substance Use: No Preferred Language: Irish Communication Ability: Effective Programs Assistant Required: No Beliefs That Will Affect Care: None Current Living Situation: Spouse and Family Current Living Situation Comment: and adult son Feels Safe at Home: Yes Assistive Devices: Glasses Allergies Allergies Allergy/AdvReac Type Severity Reaction Status Date / Time bee venom protein (honey bee) Allergy Severe ANAPHYLAXIS Verified 04/06/21 15:55 cefaclor Allergy Severe CECLOR - Verified 04/06/21 15:55 SOB;RASH; UPSET STOMACH coconut Allergy Severe RASH; SOB Verified 04/06/21 15:55 iron Allergy Severe SOB,TACHY Verified 04/06/21 15:55 WITH IV IRON latex Allergy Severe Anaphylaxis Verified 04/06/21 15:55 Penicillins Allergy Severe Anaphylaxis Verified 04/06/21 15:55 Sulfa (Sulfonamide Allergy Severe Anaphylaxis Verified 04/06/21 15:55 Antibiotics) tetracycline Allergy Severe SOB;RASH; Verified 04/06/21 15:55 N/V lactose Allergy Mild RASH; Verified 04/06/21 15:55 BLOATING; DIARRHEA; VOMITING ROBER Inhibitors Allergy Unknown COUGH AND Verified 04/06/21 15:55 RASH egg Allergy Unknown RASH & Verified 04/06/21 15:55 Bloating Influenza Virus Vaccines Allergy Unknown rash and Verified 04/06/21 15:55 bloating Quinolones Allergy Unknown ALLERGY TO Verified 04/06/21 15:55 AVELOX ,CAN TAKE CIPRO OR LEVAQUIN W/O RXN gluten AdvReac Unknown CELIAC'S Verified 04/06/21 15:55 Home Meds Home Medications Medication Instructions Recorded Confirmed amitriptyline 75 mg tablet 75 mg PO HS 12/24/20 04/06/21 cimetidine 400 mg tablet 400 mg PO BID 12/24/20 04/06/21 ergocalciferol (vitamin D2) 1,250 1,250 mcg PO 2XWK 12/24/20 04/06/21 mcg (50,000 unit) capsule (Vitamin D2) ferrous sulfate 324 mg (65 mg 324 mg PO QID 12/24/20 04/06/21 iron) tablet,delayed release hyoscyamine sulfate 0.375 mg 0.375 mg PO BID 12/24/20 04/06/21 tablet,extended release,12 hr polyethylene glycol 3350 17 17 g PO BID 12/24/20 04/06/21 gram/dose oral powder (Miralax) rabeprazole 20 mg tablet,delayed 40 mg PO BID 12/24/20 04/06/21 release ropinirole 1 mg tablet 1 mg PO HS 12/24/20 04/06/21 sucralfate 1 gram tablet (Carafate) 1 g PO QID 12/24/20 04/06/21 topiramate 100 mg tablet (Topamax) 100 mg PO BID 12/24/20 04/06/21 verapamil 80 mg tablet 80 mg PO BID 12/24/20 04/06/21 aspirin 81 mg tablet,delayed 81 mg PO DAILY 04/06/21 04/06/21 release (Aspirin Low Dose) ipratropium 20 mcg-albuterol 100 1 puff INHALATION BID PRN 04/06/21 04/06/21 mcg/actuation mist for inhalation (Combivent Respimat) Results & Data (ED) Vital Signs Vital Signs - 24 hr 04/06/21 13:46 04/06/21 14:36 04/06/21 14:53 Temperature 36.7 C Temperature Source Temporal Artery Scan Oral Pulse Rate 99 H Pulse Rate [Apical] Respiratory Rate 16 Respiratory Effort / Characteristics Non-Labored Spontaneous Respiratory Depth Normal Blood Pressure 112/58 L Blood Pressure [Right Arm] Blood Pressure Mean 76 Blood Pressure Mean [Right Arm] Pulse Oximetry 100 Oxygen Delivery Method Room Air Room Air Room Air Sepsis Recent Fever Within 48 Hours No Sepsis New/Unexplained Change in Mental Status No Sepsis Action Taken by Nursing No Action Required 04/06/21 15:18 04/06/21 17:08 Temperature Temperature Source Pulse Rate 84 Pulse Rate [Apical] 97 H Respiratory Rate 12 19 Respiratory Effort / Characteristics Respiratory Depth Blood Pressure 141/62 H Blood Pressure [Right Arm] 137/81 Blood Pressure Mean 88 Blood Pressure Mean [Right Arm] 99 Pulse Oximetry 96 96 Oxygen Delivery Method Room Air Sepsis Recent Fever Within 48 Hours Sepsis New/Unexplained Change in Mental Status Sepsis Action Taken by Nursing Laboratory Data Result diagrams: 04/06/21 22:36 04/06/21 16:07 Lab Results 04/06/21 04/06/21 04/06/21 Range/Units 14:13 14:13 14:13 WBC Cancelled RBC Cancelled Hgb Cancelled Hct Cancelled MCV Cancelled MCH Cancelled MCHC Cancelled RDW Std Deviation Cancelled RDW Coeff of Reginaldo Cancelled Plt Count Cancelled MPV Cancelled Immature Gran % (Auto) % Neut % (Auto) % Lymph % (Auto) % [place] % (Auto) % Eos % (Auto) % Baso % (Auto) % Neut # (Auto) (1.4-6.5) K/uL Lymph # (Auto) (1.2-3.4) K/uL [place] # (Auto) (0.11-0.59) K/uL Eos # (Auto) (0-0.5) K/uL Baso # (Auto) (0-0.2) K/uL Immature Gran # (Auto) (0.00-0.02) K/uL Absolute Nucleated RBC Cancelled Nucleated RBC % (auto) Cancelled Platelet Estimate Cancelled Hypochromasia PT Cancelled INR Cancelled APTT Cancelled PTT Ratio Cancelled Sodium Cancelled Potassium Cancelled Chloride Cancelled Carbon Dioxide Cancelled Anion Gap Cancelled BUN Cancelled Creatinine Cancelled Est Cr Clr Drug Dosing Cancelled Est GFR ( Amer) Cancelled Est GFR (Non-Af Amer) Cancelled BUN/Creatinine Ratio Cancelled Glucose Cancelled Calcium Cancelled Phosphorus (2.5-4.9) mg/dl Magnesium (1.8-2.4) mg/dl Total Bilirubin Cancelled AST Cancelled ALT Cancelled Alkaline Phosphatase Cancelled Total Protein Cancelled Albumin Cancelled Globulin Cancelled Albumin/Globulin Ratio Cancelled Lipase (73-393) U/L Urine Color Urine Appearance (Clear) Urine pH (4.5-7.5) Ur Specific [place] (1.000-1.030) Urine Protein (Negative) Urine Glucose (UA) (Negative) Urine Ketones (Negative) Urine Blood (Negative) Urine Nitrite (Negative) Urine Bilirubin (Negative) Urine Urobilinogen (Negative) Ur Leukocyte Esterase (Negative) COVID-19 Eval Order SARS-CoV-2 (PCR) (Negative) Blood Type Recheck 04/06/21 04/06/21 04/06/21 Range/Units 14:30 16:07 16:07 WBC 5.11 RBC 3.90 L Hgb 8.1 L Hct 28.2 L MCV 72.3 L MCH 20.8 L MCHC 28.7 L RDW Std Deviation 47.3 H RDW Coeff of Reginaldo 17.7 H Plt Count 291 MPV 10.0 Immature Gran % (Auto) 0.0 % Neut % (Auto) 73.2 % Lymph % (Auto) 18.2 % [place] % (Auto) 8.0 % Eos % (Auto) 0.4 % Baso % (Auto) 0.2 % Neut # (Auto) 3.74 (1.4-6.5) K/uL Lymph # (Auto) 0.93 L (1.2-3.4) K/uL [place] # (Auto) 0.41 (0.11-0.59) K/uL Eos # (Auto) 0.02 (0-0.5) K/uL Baso # (Auto) 0.01 (0-0.2) K/uL Immature Gran # (Auto) 0.00 (0.00-0.02) K/uL Absolute Nucleated RBC Nucleated RBC % (auto) Platelet Estimate Hypochromasia Present PT 10.8 INR 1.1 APTT PTT Ratio Sodium Potassium Chloride Carbon Dioxide Anion Gap BUN Creatinine Est Cr Clr Drug Dosing Est GFR ( Amer) Est GFR (Non-Af Amer) BUN/Creatinine Ratio Glucose Calcium Phosphorus (2.5-4.9) mg/dl Magnesium (1.8-2.4) mg/dl Total Bilirubin AST ALT Alkaline Phosphatase Total Protein Albumin Globulin Albumin/Globulin Ratio Lipase (73-393) U/L Urine Color Yellow Urine Appearance Clear (Clear) Urine pH 6.0 (4.5-7.5) Ur Specific [place] 1.018 (1.000-1.030) Urine Protein Negative (Negative) Urine Glucose (UA) Negative (Negative) Urine Ketones Negative (Negative) Urine Blood Negative (Negative) Urine Nitrite Negative (Negative) Urine Bilirubin Negative (Negative) Urine Urobilinogen Negative (Negative) Ur Leukocyte Esterase Negative (Negative) COVID-19 Eval Order SARS-CoV-2 (PCR) (Negative) Blood Type Recheck 04/06/21 04/06/21 04/06/21 Range/Units 16:07 16:07 17:23 WBC RBC Hgb Hct MCV MCH MCHC RDW Std Deviation RDW Coeff of Reginaldo Plt Count MPV Immature Gran % (Auto) % Neut % (Auto) % Lymph % (Auto) % [place] % (Auto) % Eos % (Auto) % Baso % (Auto) % Neut # (Auto) (1.4-6.5) K/uL Lymph # (Auto) (1.2-3.4) K/uL [place] # (Auto) (0.11-0.59) K/uL Eos # (Auto) (0-0.5) K/uL Baso # (Auto) (0-0.2) K/uL Immature Gran # (Auto) (0.00-0.02) K/uL Absolute Nucleated RBC Nucleated RBC % (auto) Platelet Estimate Hypochromasia PT INR APTT PTT Ratio Sodium 141 Potassium 3.6 Chloride 111 H Carbon Dioxide 21 Anion Gap 9.0 BUN 18 Creatinine 1.23 H Est Cr Clr Drug Dosing 44.3 Est GFR ( Amer) 55.6 Est GFR (Non-Af Amer) 48.0 BUN/Creatinine Ratio 14.2 Glucose 84 Calcium 8.5 Phosphorus 2.8 (2.5-4.9) mg/dl Magnesium 2.0 (1.8-2.4) mg/dl Total Bilirubin 0.2 AST 40 H ALT 25 Alkaline Phosphatase 174 H Total Protein 6.1 L Albumin 2.7 L Globulin 3.4 Albumin/Globulin Ratio 0.8 L Lipase 81 (73-393) U/L Urine Color Urine Appearance (Clear) Urine pH (4.5-7.5) Ur Specific [place] (1.000-1.030) Urine Protein (Negative) Urine Glucose (UA) (Negative) Urine Ketones (Negative) Urine Blood (Negative) Urine Nitrite (Negative) Urine Bilirubin (Negative) Urine Urobilinogen (Negative) Ur Leukocyte Esterase (Negative) COVID-19 Eval Order Covid19 at [facility] SARS-CoV-2 (PCR) (Negative) Blood Type Recheck A Positive 04/06/21 Range/Units 17:23 WBC RBC Hgb Hct MCV MCH MCHC RDW Std Deviation RDW Coeff of Reginaldo Plt Count MPV Immature Gran % (Auto) % Neut % (Auto) % Lymph % (Auto) % [place] % (Auto) % Eos % (Auto) % Baso % (Auto) % Neut # (Auto) (1.4-6.5) K/uL Lymph # (Auto) (1.2-3.4) K/uL [place] # (Auto) (0.11-0.59) K/uL Eos # (Auto) (0-0.5) K/uL Baso # (Auto) (0-0.2) K/uL Immature Gran # (Auto) (0.00-0.02) K/uL Absolute Nucleated RBC Nucleated RBC % (auto) Platelet Estimate Hypochromasia PT INR APTT PTT Ratio Sodium Potassium Chloride Carbon Dioxide Anion Gap BUN Creatinine Est Cr Clr Drug Dosing Est GFR ( Amer) Est GFR (Non-Af Amer) BUN/Creatinine Ratio Glucose Calcium Phosphorus (2.5-4.9) mg/dl Magnesium (1.8-2.4) mg/dl Total Bilirubin AST ALT Alkaline Phosphatase Total Protein Albumin Globulin Albumin/Globulin Ratio Lipase (73-393) U/L Urine Color Urine Appearance (Clear) Urine pH (4.5-7.5) Ur Specific [place] (1.000-1.030) Urine Protein (Negative) Urine Glucose (UA) (Negative) Urine Ketones (Negative) Urine Blood (Negative) Urine Nitrite (Negative) Urine Bilirubin (Negative) Urine Urobilinogen (Negative) Ur Leukocyte Esterase (Negative) COVID-19 Eval Order SARS-CoV-2 (PCR) NEGATIVE (Negative) Blood Type Recheck Administered Medications Amitriptyline HCl (Amitriptyline Hcl 25 Mg Tab) 75 mg PO HS JAYSHREE Stop: 05/06/21 20:59 Last Admin: 04/06/21 22:39 Dose: 75 mg Documented by: [id number] Famotidine (Famotidine 20 Mg Tab) 20 mg PO BID JAYSHREE Stop: 05/06/21 21:14 Last Admin: 04/06/21 22:40 Dose: 20 mg Documented by: [id number] Ferrous Sulfate (Ferrous Sulfate 325 Mg Tab) 325 mg PO TID JAYSHREE Stop: 05/06/21 21:29 Last Admin: 04/06/21 22:41 Dose: 325 mg Documented by: [id number] Potassium Chloride/Sodium Chloride (Normal Saline W/20 Meq Kcl) 20 meq in 1,000 mls @ 125 mls/hr IV .Q8H JAYSHREE Stop: 05/06/21 21:14 Last Admin: 04/06/21 22:39 Dose: 125 mls/hr Documented by: [id number] Ropinirole HCl (Ropinirole Hcl 1 Mg Tablet) 1 mg PO HS JAYSHREE Stop: 05/06/21 21:14 Last Admin: 04/06/21 22:40 Dose: 1 mg Documented by: [id number] Sucralfate (Sucralfate 1 Gm Tab) 1 gm PO QID JAYSHREE Stop: 05/06/21 20:59 Last Admin: 04/06/21 22:41 Dose: 1 gm Documented by: [id number] Topiramate (Topiramate 100 Mg Tab) 100 mg PO BID JAYSHREE Stop: 05/06/21 21:14 Last Admin: 04/06/21 22:40 Dose: 100 mg Documented by: [id number] Tramadol HCl (Tramadol Hcl 50 Mg Tablet) 50 mg PO Q4H PRN PRN Reason: Moderate Pain Stop: 05/06/21 20:53 Last Admin: 04/06/21 22:46 Dose: 50 mg Documented by: [id number] Discontinued Medications Acetaminophen (Acetaminophen 325 Mg Tab) 650 mg PO ONE ONE Stop: 04/06/21 18:47 Last Admin: 04/06/21 19:38 Dose: 650 mg Documented by: [id number] Diphenhydramine HCl (Diphenhydramine 50 Mg/Ml Vial) 25 mg IV NOW STA Stop: 04/06/21 15:08 Last Admin: 04/06/21 15:21 Dose: 25 mg Documented by: [id number] Diphenhydramine HCl (Diphenhydramine Capsule 25 Mg Cap) 25 mg PO ONE ONE Stop: 04/06/21 21:16 Last Admin: 04/06/21 22:46 Dose: 25 mg Documented by: [id number] Sodium Chloride (Nss 1000ml) 2,000 mls @ 999 mls/hr IV .Q2H1M ONE Stop: 04/06/21 17:07 Last Infusion: 04/06/21 17:22 Dose: 0 mls/hr Documented by: [id number] Admin: 04/06/21 15:21 Dose: 999 mls/hr Documented by: [id number] Acetaminophen (Ofirmev) 1,000 mg in 100 mls @ 400 mls/hr IV NOW STA Stop: 04/06/21 15:21 Last Infusion: 04/06/21 15:37 Dose: 0 mls/hr Documented by: [id number] Admin: 04/06/21 15:22 Dose: 400 mls/hr Documented by: [id number] Ioversol (Optiray 320 100ml) 94 ml IV ONCE ONE Stop: 04/06/21 16:57 Last Admin: 04/06/21 16:56 Dose: 1 ml Documented by: [id number] Morphine Sulfate (Morphine Sulfate 4 Mg/Ml 1 Ml Carp\\Vial) 3 mg IV NOW STA Stop: 04/06/21 18:47 Last Admin: 04/06/21 19:38 Dose: 3 mg Documented by: [id number] Ondansetron HCl (Ondansetron Inj 2 Mg/Ml 2 Ml Vial) 4 mg IV NOW STA Stop: 04/06/21 15:08 Last Admin: 04/06/21 15:21 Dose: 4 mg Documented by: [id number] Imaging Data Radiologist's Impression: Abdomen/Pelvis CT 04/06/21 15:[address] WITH IV CONTRAST CT DOSE: 283.54 mGy.cm HISTORY: Generalized abdominal pain. Bloody stool. TECHNIQUE: Multiaxial CT images of the abdomen and pelvis were performed following the use of intravenous contrast. A dose lowering technique was utilized adhering to the principles of ALARA. COMPARISON STUDY: Abdomen and pelvis CT 03/12/2017. FINDINGS: The lung bases are clear. No fractures within the visualized osseous structures. Prior cholecystectomy. Mild bile duct dilatation, unchanged. This is likely due to the patient's postcholecystectomy state. No hepatic or splenic masses. Normal right adrenal gland. The pancreas is unremarkable. There are 2 subcentimeter bilateral renal hypodense lesions measuring up to 9 mm. These are technically too small to characterize but statistically represent cysts. Stable mild left hydronephrosis suggesting a chronic UPJ type obstruction. No right- sided hydronephrosis. There is a 2.4 cm left adrenal gland nodule. This is similar to the prior study and was previously demonstrated to be a benign adenoma. No retroperitoneal lymphadenopathy. Normal caliber abdominal aorta. The bladder is unremarkable. Prior hysterectomy. Moderate colonic wall thickening involving the descending colon and sigmoid colon with mild pericolonic fat stranding. This is consistent with a nonspecific colitis. Moderate stool within the proximal to mid colon. Normal appendix. The main portal vein is patent. The celiac and mesenteric arteries are also patent. IMPRESSION: 1. Moderate colonic wall thickening involving the descending colon and sigmoid colon consistent with a nonspecific colitis. This favors an infectious or inflammatory process. 2. No evidence for bowel obstruction. 3. Normal appendix. 4. No change in the mild chronic left UPJ type obstruction. 5. A 2.4 cm left adrenal gland nodule. This likely represents a benign adenoma. ACT 112: Negative or not required by law. Electronically signed by: Wilton Fletcher M.D. 04/06/2021 5:09 PM Discharge Plan Visit Data Chief Complaint: Weakness Stated Complaint: WEAKNESS,FAINTING,BLOODY DIARRHEA ED Provider: Galo Otoole Discharge Problem: Colitis with rectal bleeding, Dehydration, Chronic anemia Patient Disposition: Admitted As Inpatient Discharge Instructions Interventions: ED Discharge Assessment Last Done: 04/06/21 19:58
--- NOTE | 2021-04-06 18:16 | History & Physical Report ---
Date of Service April 06, 2021 Assessment & Plan (1) Bloody diarrhea: Plan: 60-year-old female with history of gastroparesis, irritable bowel syndrome, GERD, esophagitis, iron deficiency anemia, Paroxysmal tachycardia, asthma, obstructive sleep apnea, CKD stage III, restless leg syndrome, hypothyroidism Presenting with weakness, nausea and vomiting, bloody diarrhea x3 days. BLOODY DIARRHEA ACUTE BLOOD LOSS ANEMIA SECONDARY TO ABOVE HISTORY OF GASTROPARESIS, IRRITABLE BOWEL SYNDROME, IRON DEFICIENCY ANEMIA CT scan abdomen pelvis showing sigmoid and descending colon wall thickening, suggestive of colitis Hemoglobin 8.1, baseline 8.8 per last CBC drawn 03/31/2021 C. difficile stool: Pending Stool culture: Pending Monitor hemoglobin every 6 hours, transfuse for hemoglobin less than 7 N.p.o. status for now NSS at 80 cc/h 1 unit of packed RBCs ordered, goal hemoglobin of the patient is 9.5 according to her GI consulted Hold off on antibiotics for now until stool culture results are available Continue usual rabeprazole, sucralfate Covid screen: Pending HISTORY OF PAROXYSMAL TACHYCARDIA Continue usual verapamil Hold off on aspirin HISTORY OF ASTHMA, OBSTRUCTIVE SLEEP APNEA Will verify with patient if she is still using Dulera and Singulair CKD STAGE III At baseline RESTLESS LEG SYNDROME Continue ropinirole HYPOTHYROIDISM Continue levothyroxine DVT prophylaxis SCDs for now Disposition Pending Anticipate discharge to home medically stable plan of care discussed with patient in detail and at length all questions answered she is understanding, agreeable, comfortable with the plan of care History of Present Illness Chief Complaint: Weakness, nausea and vomiting, diarrhea with blood x3 days Primary Care Provider: Christiano Muñoz MD 60-year-old female with history of gastroparesis, irritable bowel syndrome, GERD, esophagitis, iron deficiency anemia, Paroxysmal tachycardia, asthma, obstructive sleep apnea, CKD stage III, restless leg syndrome, hypothyroidism Presenting with weakness, nausea and vomiting, bloody diarrhea x3 days. Patient reports that starting last Wednesday she has had weakness and nausea vomiting, associated with diarrhea bloody, x5 times per day. Last bloody diarrhea was prior to coming to the emergency room today. At the ER, patient was received with stable vital signs, hemoglobin is 8.1. CT scan of the abdomen and pelvis: 1. Moderate colonic wall thickening involving the descending colon and sigmoid colon consistent with a nonspecific colitis. This favors an infectious or inflammatory process. 2. No evidence for bowel obstruction. 3. Normal appendix. 4. No change in the mild chronic left UPJ type obstruction. 5. A 2.4 cm left adrenal gland nodule. This likely represents a benign adenoma. Patient was given 2 L of fluids at the ER, [facility] Zofran. On exam, patient was seen resting in bed, not in distress. States she has moderate to severe generalized abdominal discomfort, no active bloody diarrhea while at the ER. Also reports weakness and lightheadedness and at some point had a syncopal episode at home recently. ReportS that her hemoglobin goal is above 9.5. Denies chest pain, palpitations, dizziness, headache. Allergies Allergy/AdvReac Type Severity Reaction Status Date / Time bee venom protein (honey bee) Allergy Severe ANAPHYLAXIS Verified 04/06/21 15:55 cefaclor Allergy Severe CECLOR - Verified 04/06/21 15:55 SOB;RASH; UPSET STOMACH coconut Allergy Severe RASH; SOB Verified 04/06/21 15:55 iron Allergy Severe SOB,TACHY Verified 04/06/21 15:55 WITH IV IRON latex Allergy Severe Anaphylaxis Verified 04/06/21 15:55 Penicillins Allergy Severe Anaphylaxis Verified 04/06/21 15:55 Sulfa (Sulfonamide Allergy Severe Anaphylaxis Verified 04/06/21 15:55 Antibiotics) tetracycline Allergy Severe SOB;RASH; Verified 04/06/21 15:55 N/V lactose Allergy Mild RASH; Verified 04/06/21 15:55 BLOATING; DIARRHEA; VOMITING ROBER Inhibitors Allergy Unknown COUGH AND Verified 04/06/21 15:55 RASH egg Allergy Unknown RASH & Verified 04/06/21 15:55 Bloating Influenza Virus Vaccines Allergy Unknown rash and Verified 04/06/21 15:55 bloating Quinolones Allergy Unknown ALLERGY TO Verified 04/06/21 15:55 AVELOX ,CAN TAKE CIPRO OR LEVAQUIN W/O RXN gluten AdvReac Unknown CELIAC'S Verified 04/06/21 15:55 Home Medications Medication Instructions Recorded Confirmed Type amitriptyline 75 mg tablet 75 mg PO HS 12/24/20 04/06/21 History cimetidine 400 mg tablet 400 mg PO BID 12/24/20 04/06/21 History ergocalciferol (vitamin D2) 1,250 1,250 mcg PO 2XWK 12/24/20 04/06/21 History mcg (50,000 unit) capsule (Vitamin D2) ferrous sulfate 324 mg (65 mg 324 mg PO QID 12/24/20 04/06/21 History iron) tablet,delayed release hyoscyamine sulfate 0.375 mg 0.375 mg PO BID 12/24/20 04/06/21 History tablet,extended release,12 hr polyethylene glycol 3350 17 17 g PO BID 12/24/20 04/06/21 History gram/dose oral powder (Miralax) rabeprazole 20 mg tablet,delayed 40 mg PO BID 12/24/20 04/06/21 History release ropinirole 1 mg tablet 1 mg PO HS 12/24/20 04/06/21 History sucralfate 1 gram tablet (Carafate) 1 g PO QID 12/24/20 04/06/21 History topiramate 100 mg tablet (Topamax) 100 mg PO BID 12/24/20 04/06/21 History verapamil 80 mg tablet 80 mg PO BID 12/24/20 04/06/21 History aspirin 81 mg tablet,delayed 81 mg PO DAILY 04/06/21 04/06/21 History release (Aspirin Low Dose) ipratropium 20 mcg-albuterol 100 1 puff INHALATION BID PRN 04/06/21 04/06/21 History mcg/actuation mist for inhalation (Combivent Respimat) Past Med/Surg History Medical History Adrenal cyst monitoring Anxiety Asthma, severe persistent Celiac disease Chronic back pain Chronic obstructive pulmonary disease Degenerative disc disease Dyslipidemia Gastroparesis GERD (gastroesophageal reflux disease) Heart disease Hx of sepsis ~2017 treated at [facility]. Hypertension Hypothyroidism no current medication -- TSH normal without meds. IBS (irritable bowel syndrome) CHARLES (iron deficiency anemia) ferrous sulfate QID. Kidney stones no surgery Mitral valve prolapse follows with Dr Aguirre MRSA (methicillin resistant Staphylococcus aureus) 1999 dx nose septum wound 2019 dx in lungs Narcolepsy NSVT (nonsustained ventricular tachycardia) Osteoarthritis Sleep apnea CPAP -- have not used in about a year (it broke and has not yet been fixed) Surgical History History of arthroscopic knee surgery left History of bilateral tubal ligation History of section x1 History of colonoscopy History of dilatation and curettage History of esophagogastroduodenoscopy (EGD) Hx of cardiac cath "2009 - normal coronaries" Hx of cholecystectomy S/P nasal surgery S/P surgery on nasal septum "collapsed septum" s/p post op infection that "ate away the septum" S/P GLENNY-BSO Family History Other No family history of adverse response to anesthesia Social History Smoking Status: Never smoker Second Hand Exposure: Yes; Hx Alcohol Use: No Hx Substance Use: No Preferred Language: Belgian Communication Ability: Effective 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 Beliefs That Will Affect Care: None Current Living Situation: Spouse and Family Current Living Situation Comment: and adult son Feels Safe at Home: Yes Assistive Devices: Glasses Review of Systems Review of Systems: all noted and negative except for above Physical Exam Physical Exam: General- oriented x 3, not in distress, speaks in sentences with no effort or accessory muscle use Head- atraumatic Eyes- PERRL, EOMI, anicteric ENT- oropharynx clear Neck- supple, no JVD, no adenopathy, no thyromegaly; carotids +2/2, no bruits appreciated Lungs- clear to auscultation bilaterally, no rales/wheezes Heart- normal rate, regular rhythm; no murmur, no gallop, no rub appreciated Abdomen- normal bowel sounds, nondistended, soft, nontender, no masses or hepatosplenomegaly Extremities- no pretibial edema, no calf tenderness; peripheral pulses intact Neuro- alert, oriented x 3; CN 2-12 grossly intact; motor 5/5 bilaterally;sensation 100% on all extremities; no other gross focal neurologic deficits Skin- warm & dry Results & Data Results & Data ([facility]) Vital Signs (Past 12 Hours) Vital Signs Temp Pulse Pulse Resp BP BP Pulse Ox 04/06/21 17:08 84 19 141/62 H 96 04/06/21 15:18 97 H 12 137/81 96 04/06/21 13:46 36.7 C 99 H 16 112/58 L 100 all noted and reviewed including below Code Status & VTE Plan VTE Prophylaxis Plan VTE Prophylaxis will be ordered: Yes
[2021-04-06] MEDS ORDERED: ACETAMINOPHEN 325 MG TAB PO ONE (18:46)
[2021-04-06] MEDS ORDERED: MoRPHine SULFATE 4 MG/ML 1 ML CARP\\VIAL IV STA (18:46)
[2021-04-06] MEDS ORDERED: ACETAMINOPHEN 325 MG TAB PO PRN (20:54)
[2021-04-06] MEDS ORDERED: SODIUM CHLORIDE 0.9% 250 ML IV PRN ×2 (20:54)
[2021-04-06] MEDS ORDERED: traMADol HCL 50 MG TABLET PO PRN (20:54)
[2021-04-06] MEDS ORDERED: MoRPHine SULFATE 4 MG/ML 1 ML CARP\\VIAL IV PRN (20:54)
[2021-04-06] MEDS ORDERED: IPRATROPIUM BROMIDE/ALBUTEROL respimat INH INH PRN (20:54)
[2021-04-06] MEDS ORDERED: Ipratropium HFA Inhaler (Combivent Respimat P&T Subs) INH PRN (21:12)
[2021-04-06] MEDS ORDERED: Albuterol HFA 8 GM Inhaler (Combivent Respimat P&T Subs) INH PRN (21:12)
[2021-04-06] MEDS ORDERED: NSS + 20MEQ KCL 20 MEQ/1,000 ML BAG IV SCH (21:15)
[2021-04-06] MEDS ORDERED: diphenhydrAMINE Capsule 25 MG CAP PO ONE (21:15)
[2021-04-06] MEDS: AMITRIPTYLINE HCL 25 MG TAB PO SCH (22:39)
[2021-04-06] MEDS: rOPINIRole HCL 1 MG TABLET PO SCH (22:40)
[2021-04-06] MEDS: FAMOTIDINE 20 MG TAB PO SCH (22:40)
[2021-04-06] MEDS: TOPIRAMATE 100 MG TAB PO SCH (22:40)
[2021-04-06] MEDS: SUCRALFATE 1 GM TAB PO SCH (22:41)
[2021-04-06] MEDS: FERROUS SULFATE 325 MG TAB PO SCH (22:41)
[2021-04-06 22:53] LABS: Hematocrit (blood only) 26.4 % (37-47); Hemoglobin 7.6 g/dL (12.0-16.0)
--- NOTE | 2021-04-07 02:28 | Communication Note ---
Date of Service: April 07, 2021 Made aware by RN around 2:20 AM of SBP 70s, decreased responsiveness after getting Benadryl and tramadol about 4 hours ago. Serum ammonia later noted to be 60. AP Encephalopathy Multifactorial : Home neuropsychotropic meds, narcotics Hepatic encephalopathy Hold tramadol and neuropsychotropic meds for now until patient more awake Xifaxan for possible hepatic encephalopathy Hold off on lactulose for now given diarrhea symptoms. Will relay to AM provider.
[2021-04-07 03:10] LABS: Basophils # (auto) 0.01 K/uL (0-0.2); Basophils % (auto) 0.2 %; Eosinophils # (auto) 0.04 K/uL (0-0.5); Eosinophils % (auto) 0.7 %; Hematocrit (blood only) 27.8 % (37-47); Hemoglobin 8.2 g/dL (12.0-16.0); Lymphocytes # (auto) 1.34 K/uL (1.2-3.4); Lymphocytes % (auto) 22.2 %; Mean Corpuscular Hgb Conc 29.5 g/dL (32-36); Mean Corpuscular Volume 74.7 fL (80-100); Mean Platelet Volume 9.4 fL (7.4-10.4); Monocytes % (auto) 6.6 %; Neutrophils # (auto) 4.25 K/uL (1.4-6.5); Neutrophils % (auto) 70.3 %; Platelet Count 250 K/uL (130-400); RDW Coefficient of Variation 19.2 % (11.5-14.5); RDW Standard Deviation 52.7 fL (36.4-46.3); Red Blood Count 3.72 M/uL (4.2-5.4); White Blood Count 6.04 K/uL (4.8-10.8)
[2021-04-07 03:27] LABS: Albumin Level 2.4 gm/dl (3.4-5.0); BUN Creatinine Ratio 14.2 (10-20); Calcium 8.1 mg/dl (8.5-10.1); Creatinine Clr Calc Pharmacy 57.4 ml/min; Est GFR (Non-African American) 65.6 ml/min; Potassium 3.4 mmol/L (3.5-5.1)
[2021-04-07 03:30] LABS: Albumin Globulin Ratio 0.8 (0.9-2); Bilirubin,Total 0.3 mg/dl (0.2-1); Globulin 2.9 gm/dl (2.5-4.0); Total Protein 5.3 gm/dl (6.4-8.2)
[2021-04-07 03:38] LABS: Anisocytosis Present
[2021-04-07] MEDS: POTASSIUM CHLORIDE 40 MEQ in D5W AND LACTATED RINGERS 1,000 ML IV SCH (04:58)
[2021-04-07] MEDS ORDERED: traMADol HCL 50 MG TABLET PO PRN (05:29)
[2021-04-07] MEDS: rifAXIMin 550 MG TABLET PO SCH ×2 (05:38→20:41)
[2021-04-07] MEDS ORDERED: traMADol HCL 50 MG TABLET PO STA (06:28)
[2021-04-07] MEDS: FAMOTIDINE 20 MG TAB PO SCH ×2 (08:39→20:40)
[2021-04-07] MEDS: PANTOprazole 40 MG TAB PO SCH ×2 (08:40→20:40)
[2021-04-07] MEDS: SUCRALFATE 1 GM TAB PO SCH ×4 (08:40→20:41)
[2021-04-07] MEDS: ERGOCALCIFEROL 50,000 UNITS 1250 MCG CAP PO SCH (08:41)
[2021-04-07] MEDS: FERROUS SULFATE 325 MG TAB PO SCH ×3 (08:41→20:40)
[2021-04-07] MEDS ORDERED: SODIUM CHLORIDE 0.9% 250 ML IV PRN (09:37)
[2021-04-07] MEDS ORDERED: diphenhydrAMINE Capsule 25 MG CAP PO ONE (09:37)
[2021-04-07] MEDS ORDERED: ACETAMINOPHEN 325 MG TAB PO ONE (09:39)
--- NOTE | 2021-04-07 10:00 | Gastrointestinal Consultation ---
Date of Consultation April 07, 2021 Assessment & Plan (1) Colitis with rectal bleeding: Check stool for C-diff and culture. Clear liquid diet. Eventual repeat colonoscopy as an OP in approx 6wks. (2) Elevated LFTs: Viral hepatitis serology ordered. Supervising Physician Co-Signing Physician Notes Attending attestation I have seen, examined this patient, and agree with the findings and above by our mid-level provider TERRIE Aguilar, with the following additions: - Infectious vs inflammatory colitis - Elevated lft's may be likely due to infectious etiologies - ABX - Follow LFT's History of Present Illness Reason for Consultation: Bloody Diarrhea Requesting Physician: Dr. Minor Attending Physician: Eldon Minor MD History of Present Illness Ms. Lucinda Hackett is a 60 yr old female pt of Dr. Muñoz with a hx of paroxysmal tachycardia, asthma, obstructive sleep apnea, CKD stage III, restless leg synd charline, hypothyroidism. She is followed in GI clinic by Dr. Scott for gatroparesis, GERD, Celiac, chronic iron deficiency anemia. On WedApr 02, she experienced the onset of LLQ pain and bloody diarrhea, continuing with these symptoms, about 2-3 more bloody BMs most days through Wednesday and presented to the ED yesterday. (+) chills, no measured fever. + nausea/vomiting at home, most recently Wednesday. Pt reports most recent colonoscopy about [address] Scott. However, the most recent seen during review of [facility] records in 2010. CT on arrival with IV contrast suggested non specific bowel wall thickening of the descending and sigmoid colon. No leukocytosis of fevers. She is awake, alert oriented and tells me that she continues with LLQ pain but no BM since arrival thus stool studies not yet collected. Hb was 8.6 after hydration and she was given one unit of RBC-> Hb 8.2. Transaminases are elevated: AST 40->198. ALT 25- >92, Alk Phos 174->240. Bili has remained normal Allergies Allergy/AdvReac Type Severity Reaction Status Date / Time bee venom protein (honey bee) Allergy Severe ANAPHYLAXIS Verified 04/06/21 15:55 cefaclor Allergy Severe CECLOR - Verified 04/06/21 15:55 SOB;RASH; UPSET STOMACH coconut Allergy Severe RASH; SOB Verified 04/06/21 15:55 iron Allergy Severe SOB,TACHY Verified 04/06/21 15:55 WITH IV IRON latex Allergy Severe Anaphylaxis Verified 04/06/21 15:55 Penicillins Allergy Severe Anaphylaxis Verified 04/06/21 15:55 Sulfa (Sulfonamide Allergy Severe Anaphylaxis Verified 04/06/21 15:55 Antibiotics) tetracycline Allergy Severe SOB;RASH; Verified 04/06/21 15:55 N/V lactose Allergy Mild RASH; Verified 04/06/21 15:55 BLOATING; DIARRHEA; VOMITING ROBER Inhibitors Allergy Unknown COUGH AND Verified 04/06/21 15:55 RASH egg Allergy Unknown RASH & Verified 04/06/21 15:55 Bloating Influenza Virus Vaccines Allergy Unknown rash and Verified 04/06/21 15:55 bloating Quinolones Allergy Unknown ALLERGY TO Verified 04/06/21 15:55 AVELOX ,CAN TAKE CIPRO OR LEVAQUIN W/O RXN gluten AdvReac Unknown CELIAC'S Verified 04/06/21 15:55 Home Medications Medication Instructions Recorded Confirmed Type amitriptyline 75 mg tablet 75 mg PO HS 12/24/20 04/06/21 History cimetidine 400 mg tablet 400 mg PO BID 12/24/20 04/06/21 History ergocalciferol (vitamin D2) 1,250 1,250 mcg PO 2XWK 12/24/20 04/06/21 History mcg (50,000 unit) capsule (Vitamin D2) ferrous sulfate 324 mg (65 mg 324 mg PO QID 12/24/20 04/06/21 History iron) tablet,delayed release hyoscyamine sulfate 0.375 mg 0.375 mg PO BID 12/24/20 04/06/21 History tablet,extended release,12 hr polyethylene glycol 3350 17 17 g PO BID 12/24/20 04/06/21 History gram/dose oral powder (Miralax) rabeprazole 20 mg tablet,delayed 40 mg PO BID 12/24/20 04/06/21 History release ropinirole 1 mg tablet 1 mg PO HS 12/24/20 04/06/21 History sucralfate 1 gram tablet (Carafate) 1 g PO QID 12/24/20 04/06/21 History topiramate 100 mg tablet (Topamax) 100 mg PO BID 12/24/20 04/06/21 History verapamil 80 mg tablet 80 mg PO BID 12/24/20 04/06/21 History aspirin 81 mg tablet,delayed 81 mg PO DAILY 04/06/21 04/06/21 History release (Aspirin Low Dose) ipratropium 20 mcg-albuterol 100 1 puff INHALATION BID PRN 04/06/21 04/06/21 History mcg/actuation mist for inhalation (Combivent Respimat) Patient History Medical History Adrenal cyst monitoring Anxiety Asthma, severe persistent Celiac disease Chronic back pain Chronic obstructive pulmonary disease Degenerative disc disease Dyslipidemia Gastroparesis GERD (gastroesophageal reflux disease) Heart disease Hx of sepsis ~2016 treated at [facility]. Hypertension Hypothyroidism no current medication -- TSH normal without meds. IBS (irritable bowel syndrome) CHARLES (iron deficiency anemia) ferrous sulfate QID. Kidney stones no surgery Mitral valve prolapse follows with Dr Aguirre MRSA (methicillin resistant Staphylococcus aureus) 1999 dx nose septum wound 2019 dx in lungs Narcolepsy NSVT (nonsustained ventricular tachycardia) Osteoarthritis Sleep apnea CPAP -- have not used in about a year (it broke and has not yet been fixed) Surgical History History of arthroscopic knee surgery left History of bilateral tubal ligation History of section x1 History of colonoscopy History of dilatation and curettage History of esophagogastroduodenoscopy (EGD) Hx of cardiac cath "2009 - normal coronaries" Hx of cholecystectomy S/P nasal surgery S/P surgery on nasal septum "collapsed septum" s/p post op infection that "ate away the septum" S/P GLENYN-BSO Family History Other No family history of adverse response to anesthesia Social History Smoking Status: Never smoker Second Hand Exposure: Yes; Hx Alcohol Use: No Hx Substance Use: No Preferred Language: Swiss Communication Ability: Effective 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 + palpitations (chronic), GI: + see HPI. : Denies pain on urination Skin: No jaundice, itching or new rashes Physical Exam Constitutional: well developed, + ill appearing, + thin and cooperative Eyes: PERRL, conjunctivae normal, anicteric sclerae ENMT: external ear and nose normal, oropharynx normal Neck: trachea midline, no thyromegaly Respiratory: normal respiratory effort, lungs clear to auscultation able to speak in complete sentences Cardiovascular: RRR, no murmur, no edema Gastrointestinal (Abdomen): Inspection/Auscultation: abdomen normal to inspection and + hypoactive bowel sounds; abdomen not distended and no abdominal edema moderate LLQ tenderness, no rebound or guarding Skin: no rashes, warm and dry normal turgor and + pallor Neurologic: PERRL, EOMI, accommodation nl, no face palsy, no dysarthria awake; not confused Psychiatric: A+Ox3, euthymic affect Orientation: alert, oriented x 3 and cooperative Lymphatic: no cervical or axillary lymphadenopathy Results & Data ([facility]) Vital Signs (Past 12 Hours) Vital Signs Temp Pulse Pulse Pulse Resp BP BP 04/07/21 07:29 36.8 C 73 16 04/07/21 07:28 88 04/07/21 03:43 36.6 C 64 14 90/53 L 04/07/21 03:15 36.6 C 67 14 89/52 L 04/07/21 02:30 36.5 C 69 14 86/50 L 04/07/21 02:15 36.5 C 70 14 77/38 L 04/07/21 01:45 36.5 C 74 14 89/50 L 04/07/21 01:43 78 04/07/21 01:30 36.5 C 76 18 97/62 L 04/07/21 01:10 36.8 C 76 14 95/61 L 04/07/21 00:59 36.7 C 116 H 18 148/80 H 04/06/21 22:57 36.6 C 73 18 131/79 BP Pulse Ox 04/07/21 07:29 96/64 L 97 04/07/21 07:28 04/07/21 03:43 96 04/07/21 03:15 95 04/07/21 02:30 97 04/07/21 02:15 97 04/07/21 01:45 95 04/07/21 01:43 04/07/21 01:30 95 04/07/21 01:10 95 04/07/21 00:59 96 04/06/21 22:57 100 Laboratory Results WBC 6, Hb 8.3, Hct 27, Plts 250, Na 147, K 3, Cl 111, CO2 28, BUN 18, Cr 0.79. Diagnostic Findings CTP with IV 04/06/21: 1. Moderate colonic wall thickening involving the descending colon and sigmoid colon consistent with a nonspecific colitis. This favors an infectious or inflammatory process. 2. No evidence for bowel obstruction. 3. Normal appendix. 4. No change in the mild chronic left UPJ type obstruction. 5. A 2.4 cm left adrenal gland nodule. This likely represents a benign adenoma
[2021-04-07] MEDS: metroNIDAZOLE 500 MG/100 ML BAG IV SCH ×2 (13:06→20:40)
[2021-04-07 16:51] LABS: Hematocrit (blood only) 34.6 % (37-47); Hemoglobin 10.3 g/dL (12.0-16.0)
--- NOTE | 2021-04-07 18:57 | Hospitalist Progress Note ---
Date of Service April 07, 2021 Assessment & Plan (1) Bloody diarrhea: Plan: 60-year-old female with history of gastroparesis, irritable bowel syndrome, GERD, esophagitis, iron deficiency anemia, Paroxysmal tachycardia, asthma, obstructive sleep apnea, CKD stage III, restless leg syndrome, hypothyroidism Presenting with weakness, nausea and vomiting, bloody diarrhea x3 days. BLOODY DIARRHEA ACUTE BLOOD LOSS ANEMIA SECONDARY TO ABOVE HISTORY OF GASTROPARESIS, IRRITABLE BOWEL SYNDROME, IRON DEFICIENCY ANEMIA CT scan abdomen pelvis showing sigmoid and descending colon wall thickening, suggestive of colitis Hemoglobin 8.1, baseline 8.8 per last CBC drawn 03/31/2021 C. difficile stool: Pending Stool culture: Pending Monitor hemoglobin every 6 hours, transfuse for hemoglobin less than 7 N.p.o. status for now NSS at 80 cc/h 1 unit of packed RBCs ordered, goal hemoglobin of the patient is 9.5 according to her GI consulted Hold off on antibiotics for now until stool culture results are available Continue usual rabeprazole, sucralfate Covid screen: negative 04/07 2nd unit PRBC ordered Hg now 10 Flagyl ordered continue to monitor Colonoscopy in 6 weeks per GI HISTORY OF PAROXYSMAL TACHYCARDIA Continue usual verapamil Hold off on aspirin HISTORY OF ASTHMA, OBSTRUCTIVE SLEEP APNEA patient not using Dulera and Singulair anymore CKD STAGE III At baseline RESTLESS LEG SYNDROME Continue ropinirole HYPOTHYROIDISM Continue levothyroxine DVT prophylaxis SCDs for now Disposition Pending Anticipate discharge to home medically stable plan of care discussed with patient in detail and at length all questions answered she is understanding, agreeable, comfortable with the plan of care Admission and Anticipated Discharge Date Admission Date: April 06, 2021 Subjective Follow-up for bloody diarrhea, etc. Seen resting in bed, comfortable, not in distress Events overnight noted Resting in bed, comfortable, oriented x3, alert States she feels improved compared to yesterday No diarrhea since yesterday, no abdominal pain or nausea vomiting No chest pain, palpitations, dizziness no other symptoms Review of Systems Review of Systems: all noted and negative except for above Physical Exam Physical Exam: General- oriented x 3, not in distress, speaks in sentences with no effort or accessory muscle use Eyes- anicteric Neck- no JVD Lungs- clear breath sounds bilaterally, no rales/wheezes Heart- normal rate, regular rhythm; no murmurs Abdomen- normal bowel sounds, nondistended, soft, nontender Extremities- no pretibial edema, no calf tenderness Neuro- alert, oriented x 3; no gross focal neurologic deficits Skin- warm & dry Results & Data Results & Data ([facility]) Vital Signs (Past 12 Hours) Vital Signs Temp Pulse Pulse Resp BP BP BP 04/07/21 15:22 71 04/07/21 13:15 35.7 C L 74 18 142/88 H 04/07/21 12:00 36.3 C L 65 18 152/94 H 04/07/21 11:32 73 12 151/97 H 04/07/21 11:16 79 14 156/102 H 04/07/21 10:58 37.6 C H 72 12 136/85 04/07/21 10:33 36.5 C 72 18 127/80 04/07/21 10:30 36.5 C 72 18 127/80 04/07/21 07:29 36.8 C 73 16 96/64 L 04/07/21 07:28 88 Pulse Ox 04/07/21 15:22 04/07/21 13:15 100 04/07/21 12:00 99 04/07/21 11:32 95 04/07/21 11:16 96 04/07/21 10:58 95 04/07/21 10:33 04/07/21 10:30 04/07/21 07:29 97 04/07/21 07:28 all noted and reviewed including below
[2021-04-07] MEDS: ACETAMINOPHEN 325 MG TAB PO PRN (20:41)
[2021-04-08] MEDS: traMADol HCL 50 MG TABLET PO PRN ×3 (00:40→09:11)
[2021-04-08] MEDS: metroNIDAZOLE 500 MG/100 ML BAG IV SCH ×3 (03:29→20:27)
[2021-04-08] MEDS ORDERED: CALCIUM CARBONATE 500 MG CHEWABLE TAB PO PRN (03:36)
[2021-04-08] MEDS: POTASSIUM CHLORIDE 40 MEQ in D5W AND LACTATED RINGERS 1,000 ML IV SCH (03:42)
[2021-04-08] MEDS: ACETAMINOPHEN 325 MG TAB PO PRN ×2 (07:58→13:53)
[2021-04-08] MEDS: FERROUS SULFATE 325 MG TAB PO SCH ×3 (07:59→20:32)
[2021-04-08] MEDS: PANTOprazole 40 MG TAB PO SCH ×2 (09:11→20:32)
[2021-04-08] MEDS: FAMOTIDINE 20 MG TAB PO SCH ×2 (09:11→20:32)
[2021-04-08] MEDS: rifAXIMin 550 MG TABLET PO SCH ×2 (09:12→20:32)
[2021-04-08] MEDS: SUCRALFATE 1 GM TAB PO SCH ×4 (09:12→20:32)
[2021-04-08] MEDS ORDERED: LOPERAMIDE HCL 2 MG CAP PO PRN (12:57)
--- NOTE | 2021-04-08 13:41 | Gastroenterology Progress Note ---
Date of Service April 08, 2021 Assessment & Plan (1) Colitis with rectal bleeding: Plan: Diarrheal illness with CT suggesting descending and sigmoid colitis. Continue flagyl. Will check stool for Ova/parasites and will watch for stool cx results. Imodium up to 4x/day - prn (hold any fevers, blood in BMs, if positive stool results). Will continue to follow. Continue liquid diet. (2) Elevated LFTs: Plan: Will check viral serology results when available. Will recheck LFTs tomorrow. Admission and Anticipated Discharge Date Admission Date: April 06, 2021 Supervising Physician Co-Signing Physician Notes Attending attestation I have seen, examined this patient, and agree with the findings and above by our mid-level provider TERRIE Aguilar, with the following additions: -Patient with diarrhea, hemoglobin responded appropriately, will need repeat LFTs. -Continue to follow cultures supportive care we will follow Subjective 60 admitted with bloody diarrhea, CT with colitis. No BMs for about 2 days. Today, diarrhea returned. Pt tells me she is passing loose green BMs Q 10 minutes. Has moderate diffuse cramping pain with BMs. Reports a level 8 of 10. No blood in BMs. Able to ambulate in the room and to work on her crafts projects. C-diff (-) Hb stable 10.3 yesterday afternoon Review of Systems Review of Systems: ROS: Gen: Denies weakness, fevers, weight loss Eyes: No eye redness, or pain, no recent vision changes Resp: No SOB, no cough Cardio: No palpitations/irregular beats, no chest pain GI: See HPI, otherwise (-) : Denies pain on urination Skin: No jaundice, itching or new rashes Physical Exam Constitutional: well developed, average body habitus and cooperative Eyes: PERRL, conjunctivae normal, anicteric sclerae ENMT: external ear and nose normal, oropharynx normal Neck: trachea midline, no thyromegaly Respiratory: normal respiratory effort, lungs clear to auscultation able to speak in complete sentences Cardiovascular: RRR, no murmur, no edema Gastrointestinal (Abdomen): Inspection/Auscultation: abdomen normal to inspection and + hyperactive bowel sounds; abdomen not distended mild, diffuse tenderness Skin: no rashes, warm and dry normal turgor; no jaundice Neurologic: PERRL, EOMI, accommodation nl, no face palsy, no dysarthria awake; not confused Psychiatric: A+Ox3, euthymic affect Orientation: alert, oriented x 3 and cooperative Lymphatic: no cervical or axillary lymphadenopathy Results & Data ([facility]) Vital Signs (Past 12 Hours) Vital Signs Temp Pulse Pulse Resp BP Pulse Ox 04/08/21 10:15 36.9 C 82 18 144/78 H 96 04/08/21 07:28 37.1 C 67 19 123/85 96 04/08/21 07:24 86 04/08/21 05:25 80 04/08/21 04:58 37.1 C 86 18 134/92 97 Laboratory Results C-diff (-), Hb 0.3, Hct 34. Hep B surface antigen (-). Other hepatitis serology pending. Diagnostic Findings CT 04/06/21 with IV contrast: 1. Moderate colonic wall thickening involving the descending colon and sigmoid colon consistent with a nonspecific colitis. This favors an infectious or inflammatory process. 2. No evidence for bowel obstruction. 3. Normal appendix. 4. No change in the mild chronic left UPJ type obstruction. 5. A 2.4 cm left adrenal gland nodule. This likely represents a benign adenoma.
[2021-04-08] MEDS ORDERED: MoRPHine SULFATE 4 MG/ML 1 ML CARP\\VIAL IV PRN (15:17)
[2021-04-08] MEDS: HYDROCODONE/ACETAMOPHEN 5/325MG TAB PO PRN ×2 (15:26→22:34)
--- NOTE | 2021-04-08 16:24 | Hospitalist Progress Note ---
Date of Service April 08, 2021 Assessment & Plan (1) Bloody diarrhea: Plan: 60-year-old female with history of gastroparesis, irritable bowel syndrome, GERD, esophagitis, iron deficiency anemia, Paroxysmal tachycardia, asthma, obstructive sleep apnea, CKD stage III, restless leg syndrome, hypothyroidism Presenting with weakness, nausea and vomiting, bloody diarrhea x3 days. BLOODY DIARRHEA ACUTE BLOOD LOSS ANEMIA SECONDARY TO ABOVE HISTORY OF GASTROPARESIS, IRRITABLE BOWEL SYNDROME, chronic IRON DEFICIENCY ANEMIA CT scan abdomen pelvis showing sigmoid and descending colon wall thickening, suggestive of colitis Hemoglobin 8.1, baseline 8.8 per last CBC drawn 03/31/2021 C. difficile stool: Negative Stool culture: Pending Patient reports her hemoglobin goal is above 9.5 to avoid symptoms Status post 2 units of packed RBCs Hemoglobin 10 yesterday, today pending (Patient needs Benadryl and Tylenol pretreatment prior to blood transfusion) GI consulted Does not recommend endoscopy at this point colonoscopy in 6 weeks Viral serologies pending Flagyl added We will add ciprofloxacin as patient still having diarrhea today Continue usual rabeprazole, sucralfate HISTORY OF PAROXYSMAL TACHYCARDIA Continue usual verapamil Hold off on aspirin HISTORY OF ASTHMA, OBSTRUCTIVE SLEEP APNEA patient not using Dulera and Singulair anymore CKD STAGE III At baseline RESTLESS LEG SYNDROME Continue ropinirole HYPOTHYROIDISM Continue levothyroxine DVT prophylaxis SCDs for now Disposition Pending Anticipate discharge to home medically stable plan of care discussed with patient in detail and at length all questions answered she is understanding, agreeable, comfortable with the plan of care Admission and Anticipated Discharge Date Admission Date: April 06, 2021 Subjective Follow-up for bloody diarrhea, etc. Seen sitting up in bed, not in distress, but uncomfortable secondary to generalized abdominal discomfort Today, patient is having diarrhea again, multiple times today Nonbloody No nausea or vomiting, fevers or chills Denies headache, chest pain, dyspnea, palpitations, dizziness No other symptoms Review of Systems Review of Systems: all noted and negative except for above Physical Exam Physical Exam: General- oriented x 3, not in distress, speaks in sentences with no effort or accessory muscle use Eyes- anicteric Neck- no JVD Lungs- clear breath sounds bilaterally, no rales/wheezes Heart- normal rate, regular rhythm; no murmurs Abdomen- normal bowel sounds, nondistended, soft, nontender Extremities- no pretibial edema, no calf tenderness Neuro- alert, oriented x 3; no gross focal neurologic deficits Skin- warm & dry Results & Data Results & Data ([facility]) Vital Signs (Past 12 Hours) Vital Signs Temp Pulse Pulse Resp BP Pulse Ox 04/08/21 15:43 36.5 C 79 18 171/117 H 98 04/08/21 15:35 77 04/08/21 10:15 36.9 C 82 18 144/78 H 96 04/08/21 07:28 37.1 C 67 19 123/85 96 04/08/21 07:24 86 04/08/21 05:25 80 04/08/21 04:58 37.1 C 86 18 134/92 97 all noted and reviewed including below
[2021-04-08 17:12] LABS: Basophils # (auto) 0.02 K/uL (0-0.2); Basophils % (auto) 0.4 %; Eosinophils # (auto) 0.09 K/uL (0-0.5); Eosinophils % (auto) 1.8 %; Hematocrit (blood only) 33.1 % (37-47); Lymphocytes % (auto) 24.6 %; Mean Corpuscular Hemoglobin 22.6 pg (25-34); Mean Corpuscular Hgb Conc 30.2 g/dL (32-36); Mean Corpuscular Volume 74.7 fL (80-100); Mean Platelet Volume 9.8 fL (7.4-10.4); Monocytes # (auto) 0.57 K/uL (0.11-0.59); Monocytes % (auto) 11.7 %; Neutrophils % (auto) 61.5 %; Platelet Count 236 K/uL (130-400); RDW Coefficient of Variation 18.5 % (11.5-14.5); RDW Standard Deviation 50.7 fL (36.4-46.3); Red Blood Count 4.43 M/uL (4.2-5.4); White Blood Count 4.88 K/uL (4.8-10.8)
[2021-04-08] MEDS: CIPROFLOXACIN / D5W 400 MG/200 ML BAG IV SCH (17:29)
[2021-04-08 17:35] LABS: BUN Creatinine Ratio 5.1 (10-20); Calcium 8.5 mg/dl (8.5-10.1); Creatinine Clr Calc Pharmacy 72.7 ml/min; Est GFR (African American) 101.1 ml/min; Est GFR (Non-African American) 87.2 ml/min; Magnesium 1.9 mg/dl (1.8-2.4); Potassium 3.2 mmol/L (3.5-5.1)
[2021-04-08 17:48] LABS: Ovalocytes 1+
[2021-04-08] MEDS: TOPIRAMATE 100 MG TAB PO SCH (20:32)
[2021-04-08] MEDS: AMITRIPTYLINE HCL 25 MG TAB PO SCH (21:37)
[2021-04-08] MEDS: rOPINIRole HCL 1 MG TABLET PO SCH (21:37)
[2021-04-09] MEDS: metroNIDAZOLE 500 MG/100 ML BAG IV SCH ×3 (04:06→19:43)
[2021-04-09] MEDS: CIPROFLOXACIN / D5W 400 MG/200 ML BAG IV SCH ×2 (04:07→16:51)
[2021-04-09 08:18] LABS: Basophils # (auto) 0.01 K/uL (0-0.2); Basophils % (auto) 0.2 %; Eosinophils # (auto) 0.08 K/uL (0-0.5); Eosinophils % (auto) 1.9 %; Hematocrit (blood only) 34.3 % (37-47); Hemoglobin 10.5 g/dL (12.0-16.0); Lymphocytes # (auto) 1.01 K/uL (1.2-3.4); Lymphocytes % (auto) 23.9 %; Mean Corpuscular Hemoglobin 22.6 pg (25-34); Mean Corpuscular Hgb Conc 30.6 g/dL (32-36); Mean Corpuscular Volume 73.9 fL (80-100); Mean Platelet Volume 9.8 fL (7.4-10.4); Monocytes # (auto) 0.44 K/uL (0.11-0.59); Monocytes % (auto) 10.4 %; Neutrophils # (auto) 2.69 K/uL (1.4-6.5); Neutrophils % (auto) 63.6 %; Platelet Count 288 K/uL (130-400); RDW Coefficient of Variation 19.1 % (11.5-14.5); RDW Standard Deviation 50.7 fL (36.4-46.3); Red Blood Count 4.64 M/uL (4.2-5.4); White Blood Count 4.23 K/uL (4.8-10.8)
[2021-04-09 08:33] LABS: Anisocytosis Present; Hypochromasia Present; Microcytosis Present
[2021-04-09] MEDS: FERROUS SULFATE 325 MG TAB PO SCH ×3 (08:38→22:48)
[2021-04-09] MEDS: rifAXIMin 550 MG TABLET PO SCH ×2 (08:39→22:48)
[2021-04-09] MEDS: PANTOprazole 40 MG TAB PO SCH ×2 (08:40→22:48)
[2021-04-09] MEDS: SUCRALFATE 1 GM TAB PO SCH ×4 (08:42→22:48)
[2021-04-09] MEDS: FAMOTIDINE 20 MG TAB PO SCH ×2 (08:43→22:48)
[2021-04-09] MEDS: HYDROCODONE/ACETAMOPHEN 5/325MG TAB PO PRN ×3 (08:43→22:50)
[2021-04-09 08:47] LABS: Albumin Level 2.7 gm/dl (3.4-5.0); BUN Creatinine Ratio 2.6 (10-20); Bilirubin Direct 0.1 mg/dl (0-0.2); Calcium 8.8 mg/dl (8.5-10.1); Creatinine Clr Calc Pharmacy 71.7 ml/min; Est GFR (African American) 99.5 ml/min; Est GFR (Non-African American) 85.9 ml/min; Potassium 3.6 mmol/L (3.5-5.1)
[2021-04-09 08:49] LABS: Bilirubin,Total 0.5 mg/dl (0.2-1); Total Protein 6.1 gm/dl (6.4-8.2)
[2021-04-09] MEDS: TOPIRAMATE 100 MG TAB PO SCH ×2 (10:21→22:48)
[2021-04-09 11:33] LABS: EBV Nuclear Ag Antibody <18.00 U/mL; EBV Virus Capsid Ag IgG Ab <18.00 U/mL
--- NOTE | 2021-04-09 14:38 | Gastroenterology Progress Note ---
Date of Service April 09, 2021 Assessment & Plan (1) Colitis with rectal bleeding: Plan: Diarrheal illness with CT suggesting descending and sigmoid colitis. Continue flagyl. Will check stool for Ova/parasites and will watch for stool cx results. Imodium up to 4x/day - prn (hold any fevers, blood in BMs, if positive stool results). Will continue to follow. Continue liquid diet. (2) Elevated LFTs: Plan: MRCP to r/o choledocholithiasis Will watch for viral serology results. Plan: Attending attestation I have seen, examined this patient, and agree with the findings and above by our mid-level provider TERRIE Aguilar, with the following additions: -Patient with improved diarrhea, will check MRCP to ensure no signs of obstruction. LFTs improving Admission and Anticipated Discharge Date Admission Date: April 06, 2021 Subjective 60, female Admitted for bloody diarrhea on 10.3 CT with colitis. Hb10 post 2 units of RBC on 04/07 Still with abd pain, mostly right sided. Transaminases, Alk Phos increased: AST 40->198->69, ALT 25->92->114, ALk PHos 174->240->304. Bili remains normal. Review of Systems Review of Systems: ROS: Gen: + mild weakness,No fevers/chills/sweats Eyes: No eye redness, or pain, no recent vision changes Resp: No SOB, no cough Cardio: No palpitations/irregular beats, no chest pain GI: See HPI, otherwise (-) : Denies pain on urination Skin: No jaundice, itching or new rashes Physical Exam Constitutional: well developed, average body habitus and cooperative Eyes: PERRL, conjunctivae normal, anicteric sclerae ENMT: external ear and nose normal, oropharynx normal Neck: trachea midline, no thyromegaly Respiratory: normal respiratory effort, lungs clear to auscultation able to speak in complete sentences Cardiovascular: RRR, no murmur, no edema Gastrointestinal (Abdomen): Inspection/Auscultation: abdomen normal to inspection and + hyperactive bowel sounds; abdomen not distended Percussion/Palpation: + abdomen tender (RUQ, Right mid abdomen) and abdomen soft Skin: no rashes, warm and dry normal turgor; no jaundice Neurologic: PERRL, EOMI, accommodation nl, no face palsy, no dysarthria awake; not confused Psychiatric: A+Ox3, euthymic affect Orientation: alert, oriented x 3 and cooperative Lymphatic: no cervical or axillary lymphadenopathy Results & Data ([facility]) Vital Signs (Past 12 Hours) Vital Signs Temp Pulse Pulse Resp BP Pulse Ox 04/09/21 11:54 36.9 C 69 18 130/73 97 04/09/21 07:54 68 04/09/21 07:32 37.0 C 76 18 135/86 97 04/09/21 03:45 37.0 C 79 18 161/99 H 100 Laboratory Results WBC 4.23, Hb 10, Hct 38, Plts 288, Na 145, K 3.6, Cl 115, CO2 23, BUN 2, Cr 0.26 See HPI for LFTs Diagnostic Findings CTAP with IV contrast 04/06/21: 1. Moderate colonic wall thickening involving the descending colon and sigmoid colon consistent with a nonspecific colitis. This favors an infectious or inflammatory process. 2. No evidence for bowel obstruction. 3. Normal appendix. 4. No change in the mild chronic left UPJ type obstruction. 5. A 2.4 cm left adrenal gland nodule. This likely represents a benign adenoma.
[2021-04-09] MEDS ORDERED: LORazepam 0.25 MG/0.5 ML VIAL IV PRN (19:24)
--- NOTE | 2021-04-09 21:53 | Hospitalist Progress Note ---
Date of Service April 09, 2021 Assessment & Plan (1) Bloody diarrhea: Plan: 60-year-old female with history of gastroparesis, irritable bowel syndrome, GERD, esophagitis, iron deficiency anemia, Paroxysmal tachycardia, asthma, obstructive sleep apnea, CKD stage III, restless leg syndrome, hypothyroidism Presenting with weakness, nausea and vomiting, bloody diarrhea x3 days. BLOODY DIARRHEA ACUTE BLOOD LOSS ANEMIA SECONDARY TO ABOVE HISTORY OF GASTROPARESIS, IRRITABLE BOWEL SYNDROME, chronic IRON DEFICIENCY ANEMIA CT scan abdomen pelvis showing sigmoid and descending colon wall thickening, suggestive of colitis Hemoglobin 8.1, baseline 8.8 per last CBC drawn 03/31/2021 s/p 2 unit PRBC during hospital course, Hgb 10.5 today C. difficile stool: Negative GI on board Does not recommend endoscopy at this point colonoscopy in 6 weeks Continue Cipro and flagyl for 10 days Continue usual rabeprazole, sucralfate Transaminitis Elevated Liver enzymes on admission LFT trending down Viral serologies pending MRCP pending Continue monitor Liver enzymes HISTORY OF PAROXYSMAL TACHYCARDIA Continue usual verapamil Hold off on aspirin HISTORY OF ASTHMA, OBSTRUCTIVE SLEEP APNEA patient not using Dulera and Singulair anymore CKD STAGE III At baseline RESTLESS LEG SYNDROME Continue ropinirole HYPOTHYROIDISM Continue levothyroxine DVT prophylaxis SCDs for now Disposition Anticipate discharge to home medically stable Admission and Anticipated Discharge Date Admission Date: April 06, 2021 Subjective Pt was seen and examined for follow up of abdominal pain and elevated liver enzymes Lying in bed with no acute distress Pt said that she continues to have abdominal tenderness Tolerated clear liquid diet Denies any chest pain, palpitation, dizziness and SOB Review of Systems Review of Systems: All systems reviewed & are unremarkable except as noted in Subjective Physical Exam Physical Exam: General- No acute distress Head- atraumatic Eyes- PERRL, EOMI, ENT- oropharynx clear Neck- supple, no JVD Lungs- clear to auscultation Heart- regular rhythm; no murmur Abdomen- normal bowel sounds, +epigastric tenderness with palpation Extremities- no calf tenderness Neuro- alert, oriented x 3; PERRL, EOMI; no facial palsy; no dysarthria Skin- warm & dry Results & Data Results & Data ([facility]) Vital Signs (Past 12 Hours) Vital Signs Temp Pulse Pulse Resp BP Pulse Ox 04/09/21 19:48 37.1 C 81 18 155/89 H 98 10/06/21 15:44 37.3 C 77 18 164/96 H 99 04/09/21 15:18 82 04/09/21 11:54 36.9 C 69 18 130/73 97
[2021-04-09] MEDS: rOPINIRole HCL 1 MG TABLET PO SCH (22:48)
[2021-04-09] MEDS: AMITRIPTYLINE HCL 25 MG TAB PO SCH (22:48)
[2021-04-10] MEDS: CIPROFLOXACIN / D5W 400 MG/200 ML BAG IV SCH ×2 (03:24→17:07)
[2021-04-10] MEDS: metroNIDAZOLE 500 MG/100 ML BAG IV SCH ×3 (03:24→19:49)
[2021-04-10] MEDS: HYDROCODONE/ACETAMOPHEN 5/325MG TAB PO PRN ×3 (04:56→20:48)
[2021-04-10 05:57] LABS: Basophils # (auto) 0.02 K/uL (0-0.2); Basophils % (auto) 0.4 %; Eosinophils # (auto) 0.09 K/uL (0-0.5); Eosinophils % (auto) 1.7 %; Hematocrit (blood only) 34.7 % (37-47); Hemoglobin 10.8 g/dL (12.0-16.0); Immature Granulocytes # (auto) 0.01 K/uL (0.00-0.02); Immature Granulocytes % (auto) 0.2 %; Lymphocytes # (auto) 1.23 K/uL (1.2-3.4); Lymphocytes % (auto) 23.2 %; Mean Corpuscular Hemoglobin 22.7 pg (25-34); Mean Corpuscular Hgb Conc 31.1 g/dL (32-36); Mean Corpuscular Volume 72.9 fL (80-100); Mean Platelet Volume 9.7 fL (7.4-10.4); Monocytes # (auto) 0.54 K/uL (0.11-0.59); Monocytes % (auto) 10.2 %; Neutrophils # (auto) 3.42 K/uL (1.4-6.5); Neutrophils % (auto) 64.3 %; Platelet Count 292 K/uL (130-400); RDW Coefficient of Variation 19.4 % (11.5-14.5); RDW Standard Deviation 50.6 fL (36.4-46.3); Red Blood Count 4.76 M/uL (4.2-5.4); White Blood Count 5.31 K/uL (4.8-10.8)
[2021-04-10 06:29] LABS: BUN Creatinine Ratio 7.8 (10-20); Calcium 8.9 mg/dl (8.5-10.1); Creatinine Clr Calc Pharmacy 68.1 ml/min; Est GFR (African American) 93.5 ml/min; Est GFR (Non-African American) 80.7 ml/min; Potassium 2.9 mmol/L (3.5-5.1)
[2021-04-10] MEDS ORDERED: POTASSIUM CHLORIDE CRTAB 20 MEQ TABCR PO SCH (07:30)
[2021-04-10] MEDS: SUCRALFATE 1 GM TAB PO SCH ×4 (07:58→19:50)
[2021-04-10] MEDS: FAMOTIDINE 20 MG TAB PO SCH ×2 (07:59→19:50)
[2021-04-10] MEDS: TOPIRAMATE 100 MG TAB PO SCH ×2 (07:59→19:50)
[2021-04-10] MEDS: ERGOCALCIFEROL 50,000 UNITS 1250 MCG CAP PO SCH (07:59)
[2021-04-10] MEDS: rifAXIMin 550 MG TABLET PO SCH ×2 (07:59→19:50)
[2021-04-10] MEDS: PANTOprazole 40 MG TAB PO SCH ×2 (08:00→19:50)
[2021-04-10] MEDS: FERROUS SULFATE 325 MG TAB PO SCH ×3 (08:00→19:49)
[2021-04-10] MEDS: POTASSIUM CHLORIDE / WTR 10 MEQ/100 ML PLCT IV SCH ×3 (08:04→10:49)
[2021-04-10 08:45] LABS: Albumin Level 2.5 gm/dl (3.4-5.0); Bilirubin Direct 0.1 mg/dl (0-0.2); Bilirubin,Total 0.4 mg/dl (0.2-1); Total Protein 5.8 gm/dl (6.4-8.2)
--- NOTE | 2021-04-10 09:29 | Magnetic Resonance Report ---
MR MRCP CLINICAL INDICATION: MN ^Y ^NPO 1800/PRE-MED ^elevated LFTs, RUQ pain, r/o choledocholithiasis COMPARISON: None available at the time of this dictation. TECHNIQUE: Multiplanar multisequence images were obtained of the abdomen with and without the adminis tration of contrast. FINDINGS: Lower chest: No acute abnormality Liver: Unremarkable. No focal lesions are seen. Gallbladder and biliary tree: Patient is status post cholecystectomy. The common bile duct measures a pproximately 9 mm in diameter. A smoothly tapers at its outflow in the duodenum. There is no evidence of choledocholithiasis. Mild intrahepatic bile duct dilation is also noted with a beaded appearance. Pancreas: Unremarkable, no focal lesions. Spleen: Unremarkable. Adrenals: Unremarkable. Kidneys and ureters: Left extrarenal pelvis is seen. 9 mm cyst is in the right superior pole. Bowel: Unremarkable. Lymph nodes Retroperitoneal: Unremarkable. Mesenteric: Unremarkable. Peritoneum: Normal Vessels: Atherosclerotic calcifications are seen. Abdominal wall: Unremarkable. Bones: Degenerative changes in the visualized spine. IMPRESSION: Smoothly dilated common bile duct measuring 9 mm in this postcholecystectomy patient. There is mild p rominence and possible beading of the intrahepatic bile ducts as well. No bile duct wall thickening i s seen to suggest acute cholangitis. No choledocholithiasis is seen. The pancreatic duct is normal. ACT 112: Negative or not required by law. Electronically signed by: Mono Batista M.D. 04/10/2021 9:27 AM
--- NOTE | 2021-04-10 15:29 | Gastroenterology Progress Note ---
Date of Service April 10, 2021 Assessment & Plan (1) Colitis with rectal bleeding: Plan: Diarrheal illness (diarrhea now resolved) with CT suggesting descending and sigmoid colitis. Continue flagyl, total 10 days. Regular diet. Okay with discharge from GI standpoint. Outpatient GI follow-up with Dr. Scott. (2) Elevated LFTs: Plan: Normalizing. MRCP gives some concern for primary sclerosing cholangitis. Would defer work-up for this to outpatient setting with Dr. Scott. I will send him a staff message in the [employer] record system regarding these MRI results. Admission and Anticipated Discharge Date Admission Date: April 06, 2021 Supervising Physician Co-Signing Physician Notes Attending attestation Late entry, patient was seen on date of [employer] provider: I have seen, examined this patient, and agree with the findings and above by our mid-level provider TERRIE Ames, with the following additions -improved, MRI ? for PSC -f/U with Dr. Scott Subjective 60, female Admitted for bloody diarrhea on 04/06 CT with colitis. Hb 10.8 post 2 units of RBC on 04/07 LFTs were elevated, trending back toward normal. MRCP with nonspecific finding of possible beading of the ducts, otherwise normal no evidence of choledocholithiasis. Still with abd pain, mostly right sided though tells me improved today compared to previous days. Tells us her pain is back to her normal daily chronic abdominal pain. Tolerating soft diet well and is interested in going home. Review of Systems Review of Systems: ROS: Gen: No mild weakness,No fevers/chills/sweats Eyes: No eye redness, or pain, no recent vision changes Resp: No SOB, no cough Cardio: No palpitations/irregular beats, no chest pain GI: See HPI, otherwise (-) : Denies pain on urination Skin: No jaundice, itching or new rashes Physical Exam Constitutional: well developed, average body habitus and cooperative Eyes: PERRL, conjunctivae normal, anicteric sclerae ENMT: external ear and nose normal, oropharynx normal Neck: trachea midline, no thyromegaly Respiratory: normal respiratory effort, lungs clear to auscultation able to speak in complete sentences Cardiovascular: RRR, no murmur, no edema Gastrointestinal (Abdomen): Inspection/Auscultation: abdomen normal to inspection and + hyperactive bowel sounds; abdomen not distended Percussion/Palpation: + abdomen tender (RUQ, Right mid abdomen) and abdomen soft Skin: no rashes, warm and dry normal turgor; no jaundice Neurologic: PERRL, EOMI, accommodation nl, no face palsy, no dysarthria awake; not confused Psychiatric: A+Ox3, euthymic affect Orientation: alert, oriented x 3 and cooperative Lymphatic: no cervical or axillary lymphadenopathy Results & Data ([facility]) Vital Signs (Past 12 Hours) Vital Signs Temp Pulse Pulse Resp BP BP Pulse Ox 04/10/21 15:21 37.3 C 74 20 151/101 H 98 04/10/21 11:48 36.7 C 73 18 147/100 H 98 04/10/21 07:42 36.9 C 71 18 132/84 96 04/10/21 07:28 70 04/10/21 04:00 36.5 C 71 18 165/100 H 98 Laboratory Results WBC 5, Hb 10, HCT 34, PLT of 292, NA 144, K2.9, CL 116, CO2 23, BUN 6, Cr 0.8. Diagnostic Findings MRCP 04/09/21: Smoothly dilated common bile duct measuring 9 mm in this postcholecystectomy patient. There is mild prominence and possible beading of the intrahepatic bile ducts as well. No bile duct wall thickening is seen to suggest acute cholangitis. No choledocholithiasis is seen. The pancreatic duct is normal. CT AP with IV contrast 04/06/2021: 1. Moderate colonic wall thickening involving the descending colon and sigmoid colon consistent with a nonspecific colitis. This favors an infectious or inflammatory process. 2. No evidence for bowel obstruction. 3. Normal appendix. 4. No change in the mild chronic left UPJ type obstruction. 5. A 2.4 cm left adrenal gland nodule. This likely represents a benign adenoma.
[2021-04-10] MEDS: rOPINIRole HCL 1 MG TABLET PO SCH (19:49)
[2021-04-10] MEDS: AMITRIPTYLINE HCL 25 MG TAB PO SCH (19:49)
--- NOTE | 2021-04-10 23:41 | Hospitalist Progress Note ---
Date of Service April 10, 2021 Assessment & Plan (1) Bloody diarrhea: Plan: 60-year-old female with history of gastroparesis, irritable bowel syndrome, GERD, esophagitis, iron deficiency anemia, Paroxysmal tachycardia, asthma, obstructive sleep apnea, CKD stage III, restless leg syndrome, hypothyroidism Presenting with weakness, nausea and vomiting, bloody diarrhea x3 days. BLOODY DIARRHEA ACUTE BLOOD LOSS ANEMIA SECONDARY TO ABOVE HISTORY OF GASTROPARESIS, IRRITABLE BOWEL SYNDROME, chronic IRON DEFICIENCY ANEMIA CT scan abdomen pelvis showing sigmoid and descending colon wall thickening, suggestive of colitis Hemoglobin 8.1, baseline 8.8 per last CBC drawn 03/31/2021 s/p 2 unit PRBC during hospital course, Hgb 10.8 today C. difficile stool: Negative GI on board Does not recommend endoscopy at this point colonoscopy in 6 weeks Continue flagyl for 10 days as per GI Continue usual rabeprazole, sucralfate Diet advanced as tolerated Transaminitis Elevated Liver enzymes on admission LFT continue trending down Viral serologies negative for acute illness MRCP showed Smoothly dilated common bile duct measuring 9 mm in this postcholecystectomy patient. There is mild prominence and possible beading of the intrahepatic bile ducts as well. No bile duct wall thickening is seen to suggest acute cholangitis. No choledocholithiasis is seen. The pancreatic duct is normal. 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 HISTORY OF PAROXYSMAL TACHYCARDIA Continue usual verapamil Hold off on aspirin HISTORY OF ASTHMA, OBSTRUCTIVE SLEEP APNEA patient not using Dulera and Singulair anymore CKD STAGE III At baseline RESTLESS LEG SYNDROME Continue ropinirole HYPOTHYROIDISM Continue levothyroxine DVT prophylaxis SCDs for now Plan to discharge tomorrow Admission and Anticipated Discharge Date Admission Date: April 06, 2021 Subjective Pt was seen and examined for follow up of abdominal pain and elevated liver enzymes Lying in bed with no acute distress Abdominal pain and diarrhea improve Denies any chest pain, palpitation, dizziness and SOB Review of Systems Review of Systems: All systems reviewed & are unremarkable except as noted in Subjective Physical Exam Physical Exam: General- No acute distress Head- atraumatic Eyes- PERRL, EOMI, ENT- oropharynx clear Neck- supple, no JVD Lungs- clear to auscultation Heart- regular rhythm; no murmur Abdomen- normal bowel sounds, +epigastric tenderness with palpation Extremities- no calf tenderness Neuro- alert, oriented x 3; PERRL, EOMI; no facial palsy; no dysarthria Skin- warm & dry Results & Data Results & Data ([facility]) Vital Signs (Past 12 Hours) Vital Signs Temp Pulse Pulse Resp BP Pulse Ox 04/10/21 23:39 37.3 C 83 18 125/90 96 04/10/21 19:00 36.8 C 84 20 165/114 H 99 04/10/21 15:24 95 H 04/10/21 15:21 37.3 C 74 20 151/101 H 98 04/10/21 11:48 36.7 C 73 18 147/100 H 98
[2021-04-10] MEDS: ONDANSETRON INJ 2 MG/ML 2 ML VIAL IV PRN (23:42)
[2021-04-11 00:46] LABS: CMV IgM Antibody <30.00 AU/mL; Hepatitis A Antibody IgM NON-REACTIVE (NON-REACTIVE); Hepatitis B Core Antibody IgM NON-REACTIVE (NON-REACTIVE); Parvovirus IgG 7.4 (<0.9); Parvovirus IgM 0.1 (<0.9)
[2021-04-11] MEDS: CIPROFLOXACIN / D5W 400 MG/200 ML BAG IV SCH ×2 (03:29→17:00)
[2021-04-11] MEDS: metroNIDAZOLE 500 MG/100 ML BAG IV SCH ×2 (03:29→12:43)
[2021-04-11] MEDS: HYDROCODONE/ACETAMOPHEN 5/325MG TAB PO PRN ×2 (03:30→10:16)
[2021-04-11 08:45] LABS: Basophils # (auto) 0.01 K/uL (0-0.2); Basophils % (auto) 0.2 %; Eosinophils # (auto) 0.06 K/uL (0-0.5); Hematocrit (blood only) 37.6 % (37-47); Hemoglobin 11.6 g/dL (12.0-16.0); Immature Granulocytes # (auto) 0.01 K/uL (0.00-0.02); Immature Granulocytes % (auto) 0.2 %; Lymphocytes # (auto) 1.42 K/uL (1.2-3.4); Mean Corpuscular Hemoglobin 23.2 pg (25-34); Mean Corpuscular Hgb Conc 30.9 g/dL (32-36); Monocytes % (auto) 8.1 %; Neutrophils # (auto) 4.18 K/uL (1.4-6.5); Neutrophils % (auto) 67.5 %; Platelet Count 318 K/uL (130-400); RDW Coefficient of Variation 20.9 % (11.5-14.5); RDW Standard Deviation 54.2 fL (36.4-46.3); Red Blood Count 5.01 M/uL (4.2-5.4); White Blood Count 6.18 K/uL (4.8-10.8)
[2021-04-11] MEDS: TOPIRAMATE 100 MG TAB PO SCH (08:47)
[2021-04-11] MEDS: FERROUS SULFATE 325 MG TAB PO SCH ×2 (08:47→16:25)
[2021-04-11] MEDS: PANTOprazole 40 MG TAB PO SCH (08:47)
[2021-04-11] MEDS: rifAXIMin 550 MG TABLET PO SCH (08:47)
[2021-04-11] MEDS: FAMOTIDINE 20 MG TAB PO SCH (08:47)
[2021-04-11] MEDS: SUCRALFATE 1 GM TAB PO SCH ×3 (08:47→18:00)
[2021-04-11 09:09] LABS: Albumin Globulin Ratio 0.8 (0.9-2); Albumin Level 2.9 gm/dl (3.4-5.0); BUN Creatinine Ratio 6.7 (10-20); Bilirubin,Total 0.3 mg/dl (0.2-1); Calcium 9.2 mg/dl (8.5-10.1); Est GFR (Non-African American) 66.4 ml/min; Globulin 3.5 gm/dl (2.5-4.0); Potassium 3.7 mmol/L (3.5-5.1); Total Protein 6.4 gm/dl (6.4-8.2)
[2021-04-11 09:10] LABS: Anisocytosis Present; Echinocytes 1+; Poikilocytosis Present
[2021-04-11] MEDS: ONDANSETRON INJ 2 MG/ML 2 ML VIAL IV PRN (10:17)
--- NOTE | 2021-04-24 08:18 | Discharge Summary ---
Date of Service April 11, 2021 Admission HPI Per Admitting Provider 60-year-old female with history of gastroparesis, irritable bowel syndrome, GERD, esophagitis, iron deficiency anemia, Paroxysmal tachycardia, asthma, obstructive sleep apnea, CKD stage III, restless leg syndrome, hypothyroidism Presenting with weakness, nausea and vomiting, bloody diarrhea x3 days. Patient reports that starting last Wednesday she has had weakness and nausea vomiting, associated with diarrhea bloody, x5 times per day. Last bloody diarrhea was prior to coming to the emergency room today. At the ER, patient was received with stable vital signs, hemoglobin is 8.1. CT scan of the abdomen and pelvis: 1. Moderate colonic wall thickening involving the descending colon and sigmoid colon consistent with a nonspecific colitis. This favors an infectious or inflammatory process. 2. No evidence for bowel obstruction. 3. Normal appendix. 4. No change in the mild chronic left UPJ type obstruction. 5. A 2.4 cm left adrenal gland nodule. This likely represents a benign adenoma. Patient was given 2 L of fluids at the ER, [place] Zofran. On exam, patient was seen resting in bed, not in distress. States she has moderate to severe generalized abdominal discomfort, no active bloody diarrhea while at the ER. Also reports weakness and lightheadedness and at some point had a syncopal episode at home recently. ReportS that her hemoglobin goal is above 9.5. Denies chest pain, palpitations, dizziness, headache. Admission Exam Per Admitting Provider General- oriented x 3, not in distress, speaks in sentences with no effort or accessory muscle use Head- atraumatic Eyes- PERRL, EOMI, anicteric ENT- oropharynx clear Neck- supple, no JVD, no adenopathy, no thyromegaly; carotids +2/2, no bruits appreciated Lungs- clear to auscultation bilaterally, no rales/wheezes Heart- normal rate, regular rhythm; no murmur, no gallop, no rub appreciated Abdomen- normal bowel sounds, nondistended, soft, nontender, no masses or hepatosplenomegaly Extremities- no pretibial edema, no calf tenderness; peripheral pulses intact Neuro- alert, oriented x 3; CN 2-12 grossly intact; motor 5/5 bilaterally;sensation 100% on all extremities; no other gross focal neurologic deficits Skin- warm & dry Principal Diagnosis Bloody diarrhea: Transaminitis HISTORY OF PAROXYSMAL TACHYCARDIA HISTORY OF ASTHMA, OBSTRUCTIVE SLEEP APNEA CKD STAGE III RESTLESS LEG SYNDROME HYPOTHYROIDISM Discharge Exam General- No acute distress Head- atraumatic Eyes- PERRL, EOMI, ENT- oropharynx clear Neck- supple, no JVD Lungs- clear to auscultation Heart- regular rhythm; no murmur Abdomen- normal bowel sounds, +epigastric tenderness with palpation Extremities- no calf tenderness Neuro- alert, oriented x 3; PERRL, EOMI; no facial palsy; no dysarthria Skin- warm & dry Discharge Data Allergies Allergy/AdvReac Type Severity Reaction Status Date / Time bee venom protein (honey bee) Allergy Severe ANAPHYLAXIS Verified 04/06/21 15:55 cefaclor Allergy Severe CECLOR - Verified 04/06/21 15:55 SOB;RASH; UPSET STOMACH coconut Allergy Severe RASH; SOB Verified 04/06/21 15:55 iron Allergy Severe SOB,TACHY Verified 04/06/21 15:55 WITH IV IRON latex Allergy Severe Anaphylaxis Verified 04/06/21 15:55 Penicillins Allergy Severe Anaphylaxis Verified 04/06/21 15:55 Sulfa (Sulfonamide Allergy Severe Anaphylaxis Verified 04/06/21 15:55 Antibiotics) tetracycline Allergy Severe SOB;RASH; Verified 04/06/21 15:55 N/V lactose Allergy Mild RASH; Verified 04/06/21 15:55 BLOATING; DIARRHEA; VOMITING ROBER Inhibitors Allergy Unknown COUGH AND Verified 04/06/21 15:55 RASH egg Allergy Unknown RASH & Verified 04/06/21 15:55 Bloating Influenza Virus Vaccines Allergy Unknown rash and Verified 04/06/21 15:55 bloating Quinolones Allergy Unknown ALLERGY TO Verified 04/06/21 15:55 AVELOX ,CAN TAKE CIPRO OR LEVAQUIN W/O RXN gluten AdvReac Unknown CELIAC'S Verified 04/06/21 15:55 Consultations 04/06/21 17:49 ED Decision to Admit Stat 04/06/21 20:54 Consult Gastroenterology Routine Ordered Studies 04/06/21 15:09 CT abd pelvis IV con only Stat 04/09/21 13:23 MR MRCP Routine MR MRCP CLINICAL INDICATION: MN ^Y ^NPO 1800/PRE-MED ^elevated LFTs, RUQ pain, r/o choledocholithiasis COMPARISON: None available at the time of this dictation. TECHNIQUE: Multiplanar multisequence images were obtained of the abdomen with and without the administration of contrast. FINDINGS: Lower chest: No acute abnormality Liver: Unremarkable. No focal lesions are seen. Gallbladder and biliary tree: Patient is status post cholecystectomy. The common bile duct measures approximately 9 mm in diameter. A smoothly tapers at its outflow in the duodenum. There is no evidence of choledocholithiasis. Mild intrahepatic bile duct dilation is also noted with a beaded appearance. Pancreas: Unremarkable, no focal lesions. Spleen: Unremarkable. Adrenals: Unremarkable. Kidneys and ureters: Left extrarenal pelvis is seen. 9 mm cyst is in the right superior pole. Bowel: Unremarkable. Lymph nodes Retroperitoneal: Unremarkable. Mesenteric: Unremarkable. Peritoneum: Normal Vessels: Atherosclerotic calcifications are seen. Abdominal wall: Unremarkable. Bones: Degenerative changes in the visualized spine. IMPRESSION: Smoothly dilated common bile duct measuring 9 mm in this postcholecystectomy patient. There is mild prominence and possible beading of the intrahepatic bile ducts as well. No bile duct wall thickening is seen to suggest acute cholangitis. No choledocholithiasis is seen. The pancreatic duct is normal. ACT 112: Negative or not required by law. Electronically signed by: Mono Batista M.D. 04/10/2021 9:27 AM Dictated: 04/10/21912Transcribed: 04/10/[address] WITH IV CONTRAST CT DOSE: 283.54 mGy.cm HISTORY: Generalized abdominal pain. Bloody stool. TECHNIQUE: Multiaxial CT images of the abdomen and pelvis were performed following the use of intravenous contrast. A dose lowering technique was utilized adhering to the principles of ALARA. COMPARISON STUDY: Abdomen and pelvis CT 03/12/2017. FINDINGS: The lung bases are clear. No fractures within the visualized osseous structures. Prior cholecystectomy. Mild bile duct dilatation, unchanged. This is likely due to the patient's postcholecystectomy state. No hepatic or splenic masses. Normal right adrenal gland. The pancreas is unremarkable. There are 2 subcentimeter bilateral renal hypodense lesions measuring up to 9 mm. These are technically too small to characterize but statistically represent cysts. Stable mild left hydronephrosis suggesting a chronic UPJ type obstruction. No right- sided hydronephrosis. There is a 2.4 cm left adrenal gland nodule. This is similar to the prior study and was previously demonstrated to be a benign adenoma. No retroperitoneal lymphadenopathy. Normal caliber abdominal aorta. The bladder is unremarkable. Prior hysterectomy. Moderate colonic wall thickening involving the descending colon and sigmoid colon with mild pericolonic fat stranding. This is consistent with a nonspecific colitis. Moderate stool within the proximal to mid colon. Normal appendix. The main portal vein is patent. The celiac and mesenteric arteries are also patent. IMPRESSION: 1. Moderate colonic wall thickening involving the descending colon and sigmoid colon consistent with a nonspecific colitis. This favors an infectious or inflammatory process. 2. No evidence for bowel obstruction. 3. Normal appendix. 4. No change in the mild chronic left UPJ type obstruction. 5. A 2.4 cm left adrenal gland nodule. This likely represents a benign adenoma. ACT 112: Negative or not required by law. Electronically signed by: Wilton Fletcher M.D. 04/06/2021 5:09 PM Dictated: 04/06/211701Transcribed: 04/06/211701 Hospital Course (1) Bloody diarrhea: 60-year-old female with history of gastroparesis, irritable bowel syndrome, GERD, esophagitis, iron deficiency anemia, Paroxysmal tachycardia, asthma, obstructive sleep apnea, CKD stage III, restless leg syndrome, hypothyroidism Presenting with weakness, nausea and vomiting, bloody diarrhea x3 days. BLOODY DIARRHEA ACUTE BLOOD LOSS ANEMIA SECONDARY TO ABOVE HISTORY OF GASTROPARESIS, IRRITABLE BOWEL SYNDROME, chronic IRON DEFICIENCY ANEMIA CT scan abdomen pelvis showing sigmoid and descending colon wall thickening, suggestive of colitis Hemoglobin 8.1, baseline 8.8 per last CBC drawn 03/31/2021 s/p 2 unit PRBC during hospital course, Hgb 10.8 today C. difficile stool: Negative GI on board Does not recommend endoscopy at this point colonoscopy in 6 weeks Continue flagyl for 10 days as per GI Continue usual rabeprazole, sucralfate Diet advanced as tolerated Transaminitis Elevated Liver enzymes on admission LFT continue trending down Viral serologies negative for acute illness MRCP showed Smoothly dilated common bile duct measuring 9 mm in this postcholecystectomy patient. There is mild prominence and possible beading of the intrahepatic bile ducts as well. No bile duct wall thickening is seen to suggest acute cholangitis. No choledocholithiasis is seen. The pancreatic duct is normal. 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 HISTORY OF PAROXYSMAL TACHYCARDIA Continue usual verapamil Hold off on aspirin HISTORY OF ASTHMA, OBSTRUCTIVE SLEEP APNEA patient not using Dulera and Singulair anymore CKD STAGE III At baseline RESTLESS LEG SYNDROME Continue ropinirole HYPOTHYROIDISM Continue levothyroxine DVT prophylaxis SCDs for now Plan to discharge tomorrow Total Time Total Time Spent Total Time Spent (In Minutes): 35 minutes Discharge Plan Discharge Items Patient Disposition: Home - Self-Care Reason For Visit: DIARRHEA, HEMATOCHEZIA, POSSIBLE GI BLEED Discharge Diagnosis: Bloody diarrhea: Transaminitis HISTORY OF PAROXYSMAL TACHYCARDIA HISTORY OF ASTHMA, OBSTRUCTIVE SLEEP APNEA CKD STAGE III RESTLESS LEG SYNDROME HYPOTHYROIDISM Activity: Resume your previous activity Non-emergency contact: Primary Care Provider and Car 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 ) Diet: Gluten Free and Heart Healthy Addtl Attending Provider Instructions: Follow up with your primary care provider 04/14/2021 at 10:00 AM Provider Lacey Weldon MD [facility] Follow up with your gastroenterology in 2 to 4 weeks Check CBC in 1 week to monitor your hemoglobin Check LFT in 1 week to monitor your liver enzymes Complete the course of the antibiotic with Cipro and Flagyl Avoid any NSAID such as motrin, aleve, naproxen, ibuprofen, advil due to risk of bleeding Pending Studies at Discharge: No Stand-Alone Forms: My [facility], Smoking Cessation Medications and DC Order Prescriptions: Continued aspirin [Aspirin Low Dose] 81 mg Tablet,Delayed Release (Dr/Ec) 81 mg PO DAILY RF: 0 Combivent Respimat 20-100 mcg/actuation mist 1 puff INHALATION BID PRN (Reason: Shortness Of Breath Or Wheezing) RF: 0 rabeprazole 20 mg Tablet,Delayed Release (Dr/Ec) 40 mg PO BID RF: 0 ropinirole 1 mg Tablet 1 mg PO HS RF: 0 amitriptyline 75 mg Tablet 75 mg PO HS RF: 0 cimetidine 400 mg Tablet 400 mg PO BID RF: 0 sucralfate [Carafate] 1 gram Tablet 1 g PO QID RF: 0 hyoscyamine sulfate 0.375 mg Tablet Extended Release 12 Hr 0.375 mg PO BID RF: 0 ergocalciferol (vitamin D2) [Vitamin D2] 1,250 mcg (50,000 unit) Capsule 1,250 mcg PO 2XWK RF: 0 polyethylene glycol 3350 [Miralax] 17 gram/dose Powder 17 g PO BID RF: 0 verapamil 80 mg Tablet 80 mg PO BID RF: 0 topiramate [Topamax] 100 mg Tablet 100 mg PO BID RF: 0 ferrous sulfate 324 mg (65 mg iron) Tablet,Delayed Release (Dr/Ec) 324 mg PO QID RF: 0 Discharge Orders: Discharge Order (Routine); Ordered 04/11/21 Ordered By: Pepito Handley Admission Data Admit Date/Time: 04/06/21 18:09 Attending Provider: Pepito Handley Admit Provider: Eldon Minor Primary Care Provider: Christiano Muñoz Other Providers: Nathanael Garrett Other Interventions: Discharge Summary Assessment (RN) Last Done: 04/11/21 16:01
== END 2021-04-11 19:05 | disposition home or self-care (01) | DRG 378 ==
LOC: ED 13:41 → 2W 18:09 → SUATTDRO 18:09 → 2W 19:58
DX: Z91.030 Bee allergy status; Z79.82 Long term (current) use of aspirin; Z91.018 Allergy to other foods; D50.9 Iron deficiency anemia, unspecified; K92.1 Melena; K52.9 Noninfective gastroenteritis and colitis, unspecified; G25.81 Restless legs syndrome; I12.9 Hypertensive chronic kidney disease with stage 1 through stage 4 chronic kidney disease, or unspecified chronic kidney disease; E03.9 Hypothyroidism, unspecified; J45.50 Severe persistent asthma, uncomplicated; G47.419 Narcolepsy without cataplexy; K90.0 Celiac disease; R74.8 Abnormal levels of other serum enzymes; I34.1 Nonrheumatic mitral (valve) prolapse; D62 Acute posthemorrhagic anemia; Z88.2 Allergy status to sulfonamides; Z79.899 Other long term (current) drug therapy; Z88.7 Allergy status to serum and vaccine; K83.01 Primary sclerosing cholangitis; J44.9 Chronic obstructive pulmonary disease, unspecified; N18.30 Chronic kidney disease, stage 3 unspecified; K21.00 Gastro-esophageal reflux disease with esophagitis, without bleeding; Z91.09 Other allergy status, other than to drugs and biological substances; Z91.040 Latex allergy status; Z88.8 Allergy status to other drugs, medicaments and biological substances; Z88.0 Allergy status to penicillin; Z91.011 Allergy to milk products; Z88.1 Allergy status to other antibiotic agents; Z86.79 Personal history of other diseases of the circulatory system; R74.01 Elevation of levels of liver transaminase levels; Z90.49 Acquired absence of other specified parts of digestive tract; Z91.012 Allergy to eggs

== ENCOUNTER 2021-05-08 14:48 | Inpatient (IN) ==
--- NOTE | 2021-05-08 15:17 | XRay Report ---
XR chest 1V portable HISTORY: 60 years-old Female Dyspnea, cough, fever acute cough with fever COMPARISON: Chest radiograph 03/15/2017 TECHNIQUE: Portable AP view of the chest FINDINGS: Cardiomediastinal and hilar silhouettes appear unchanged. Right IJ [id number] catheter. No pneumot horax, pleural effusion or overt pulmonary edema. Mild right hemidiaphragmatic elevation. Degenerativ e changes of the shoulders and spine. Surgical clips of the right upper quadrant abdomen. Moderate fe clarence retention. IMPRESSION: No acute process. ACT 112: Negative or not required by law. The above report was generated using voice recognition software. It may contain grammatical, syntax o r spelling errors. Electronically signed by: Andrez Foster M.D. 05/08/2021 3:15 PM
--- NOTE | 2021-05-08 15:28 | Emergency Department Note ---
Impression & Plan Breathlessness, Cough, Elevated LFTs, Bronchitis ED Provider Note Provider: Izaiah Armstrong MD DATE OF SERVICE: 05/08/2021 CHIEF COMPLAINT: Shortness breath, cough HISTORY OF PRESENT ILLNESS: Patient is a 60-year-old female past medical history including recent hospitalization a month ago for bloody diarrhea, IBS, hypothyroidism, gastroparesis, and CYNTHIA presenting here via ambulance from home today reporting approximately a week of worsening cough with productive green mucus. Reports a little bit of chest abdominal discomfort from the coughing. Denies significant nausea vomiting or diarrhea. No falls reported. Some sore throat reported. Reports a fever 100.6 Fahrenheit last night. EMS in route provided DuoNeb which did not help very much with her symptoms. Patient has not vaccinated for Covid. Patient did try her Combivent at home and that has not been helping with her symptoms much. Denies sick contact. Denies significant leg swelling REVIEW OF SYSTEMS: A total of 10 review of systems was obtained and negative except as stated above in the HPI. PAST MEDICAL HISTORY: As noted above MEDICATIONS: Reviewed home medications SOCIAL HISTORY: Non-smoker, lives at home PHYSICAL EXAM: GENERAL: alert and oriented in no acute distress on stretcher but fatigued in appearance with occasional cough Head: normocephalic and atraumatic EYES: No injection, discharge or icterus. NECK: Trachea midline. Supple. ENT: Mucous membranes pink and moist. Pharynx without exudate with mild erythema. No uvular deviation. LUNGS: Airway patent. No retractions. Breath sounds clear with some diminished bases. HEART: Regular tachycardic rate and rhythm. No chest wall tenderness ABDOMEN: Soft and non-tender, without guarding or rebound. SKIN: Acyanotic, warm, dry, without rashes EXTREMITIES: Without swelling, tenderness or deformity NEUROLOGICAL: No focal deficits. No aphasia. No facial droop or slurred speech. EK bpm sinus tachycardia rare PAC without PVC. No acute ST segment elevation is noted. QTc 455. CONTINUOUS CARDIAC MONITORING: was ordered and showed a heart rate of 90s-110s bpm in sinus tachycardia or PAC Patient's laboratory studies and imaging reviewed. Differential includes Reactive airway disease, pneumonia, pneumothorax, COPD, CHF, infections, cardiac ischemia, pulmonary embolism, musculoskeletal, gastrointestinal, as well as other pathologies. IMPRESSION/MEDICAL DECISION MAKING: Reviewed medical record recent hospitalization for bloody diarrhea treated with Cipro and Flagyl. Patient states this is resolved and she finished the ant ibiotic sometime ago. Covid test was sent given her unvaccinated status and complaint. Chest x-ray obtained as well as basic blood work, cultures, and lactate. Patient temperature 37.6C upon arrival mildly tachycardic but not hypoxic. Chest x-ray per radiology without significant lobar pneumonia noted. Blood work returns with white blood cell count 9.5 and mild anemia. Persistent mild AST elevation and slightly more elevated ALT elevation. Review of recent hospitalization and GI notes indicate the patient's had some elevations and was being referred for outpatient GI work-up for possible PSC. Patient again not having significant GI symptoms at this time. Mild hypokalemia. Renal function appears relatively stable with a baseline around 0.08 today at 1.1 Given small mount IV fluid and dose of oral potassium. Patient again does not appear meningitic or to have a MIGRANT LEADER, RTA but mild erythema and appears significantly fatigued. Fairly deep and productive sounding cough. Discussed with the patient findings. Discussed with pharmacy antibiotic choice and dosing given allergies and the patient is tolerated Levaquin before. Will give a dose of this with concerns for developing bronchitis lower respiratory infection. Recommend she follow-up in the outpatient setting with GI as previously recommended given her prior GI issues in the LFTs. Discussed with the patient possible further observation here. Patient's not requiring oxygen at this time. Patient initially voiced some wish to go home. Patient is persistently tachycardic and not hypoxic and I have a low suspicion for PE however do feel given her comorbidities and recent hospitalization further monitoring here could be helpful. Patient's temperature now 37.7 Celsius and Tylenol, IV fluid bolus, and antibiotic are pending administration by nursing. In shared decision making the patient was agreeable with staying for further observation and did voice some concerns about her ability to function well at home and deal with her cough and symptoms at this time. The hospitalist was consulted. DIAGNOSIS: Shortness of breath, bronchitis, cough, hypokalemia DISPOSITION: Hospitalist contacted Past Med/Surg History Medical History Adrenal cyst monitoring Anxiety Asthma, severe persistent Celiac disease Chronic back pain Chronic obstructive pulmonary disease Degenerative disc disease Dyslipidemia Gastroparesis GERD (gastroesophageal reflux disease) Heart disease Hx of sepsis ~2017 treated at [facility]. Hypertension Hypothyroidism no current medication -- TSH normal without meds. IBS (irritable bowel syndrome) CHARLES (iron deficiency anemia) ferrous sulfate QID. Kidney stones no surgery Mitral valve prolapse follows with Dr Aguirre MRSA (methicillin resistant Staphylococcus aureus) 1999 dx nose septum wound 2019 dx in lungs Narcolepsy NSVT (nonsustained ventricular tachycardia) Osteoarthritis Sleep apnea CPAP -- have not used in about a year (it broke and has not yet been fixed) Surgical History History of arthroscopic knee surgery left History of bilateral tubal ligation History of section x1 History of colonoscopy History of dilatation and curettage History of esophagogastroduodenoscopy (EGD) Hx of cardiac cath "2009 - normal coronaries" Hx of cholecystectomy S/P nasal surgery S/P surgery on nasal septum "collapsed septum" s/p post op infection that "ate away the septum" S/P GLENNY-BSO Family History Other No family history of adverse response to anesthesia Social History Smoking Status: Never smoker Second Hand Exposure: Yes; Hx Alcohol Use: No Hx Substance Use: No Preferred Language: Arabic Communication Ability: Effective 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 Beliefs That Will Affect Care: None Current Living Situation: Spouse and Family Current Living Situation Comment: and adult son Feels Safe at Home: Yes Assistive Devices: None Allergies Allergies Allergy/AdvReac Type Severity Reaction Status Date / Time bee venom protein (honey bee) Allergy Severe ANAPHYLAXIS Verified 04/06/21 15:55 cefaclor Allergy Severe CECLOR - Verified 04/06/21 15:55 SOB;RASH; UPSET STOMACH coconut Allergy Severe RASH; SOB Verified 04/06/21 15:55 iron Allergy Severe SOB,TACHY Verified 04/06/21 15:55 WITH IV IRON latex Allergy Severe Anaphylaxis Verified 04/06/21 15:55 Penicillins Allergy Severe Anaphylaxis Verified 04/06/21 15:55 Sulfa (Sulfonamide Allergy Severe Anaphylaxis Verified 04/06/21 15:55 Antibiotics) tetracycline Allergy Severe SOB;RASH; Verified 04/06/21 15:55 N/V lactose Allergy Mild RASH; Verified 04/06/21 15:55 BLOATING; DIARRHEA; VOMITING ROBER Inhibitors Allergy Unknown COUGH AND Verified 04/06/21 15:55 RASH egg Allergy Unknown RASH & Verified 04/06/21 15:55 Bloating Influenza Virus Vaccines Allergy Unknown rash and Verified 04/06/21 15:55 bloating Quinolones Allergy Unknown ALLERGY TO Verified 04/06/21 15:55 AVELOX ,CAN TAKE CIPRO OR LEVAQUIN W/O RXN gluten AdvReac Unknown CELIAC'S Verified 04/06/21 15:55 Home Meds Home Medications Medication Instructions Recorded Confirmed amitriptyline 75 mg tablet 75 mg PO HS 12/24/20 04/06/21 cimetidine 400 mg tablet 400 mg PO BID 12/24/20 04/06/21 ergocalciferol (vitamin D2) 1,250 1,250 mcg PO 2XWK 12/24/20 04/06/21 mcg (50,000 unit) capsule (Vitamin D2) ferrous sulfate 324 mg (65 mg 324 mg PO QID 12/24/20 04/06/21 iron) tablet,delayed release hyoscyamine sulfate 0.375 mg 0.375 mg PO BID 12/24/20 04/06/21 tablet,extended release,12 hr polyethylene glycol 3350 17 17 g PO BID 12/24/20 04/06/21 gram/dose oral powder (Miralax) rabeprazole 20 mg tablet,delayed 40 mg PO BID 12/24/20 04/06/21 release ropinirole 1 mg tablet 1 mg PO HS 12/24/20 04/06/21 sucralfate 1 gram tablet (Carafate) 1 g PO QID 12/24/20 04/06/21 topiramate 100 mg tablet (Topamax) 100 mg PO BID 12/24/20 04/06/21 verapamil 80 mg tablet 80 mg PO BID 12/24/20 04/06/21 aspirin 81 mg tablet,delayed 81 mg PO DAILY 04/06/21 04/06/21 release (Aspirin Low Dose) ipratropium 20 mcg-albuterol 100 1 puff INHALATION BID PRN 04/06/21 04/06/21 mcg/actuation mist for inhalation (Combivent Respimat) Results & Data (ED) Vital Signs Vital Signs - 24 hr 05/08/21 14:57 05/08/21 15:03 05/08/21 15:04 Temperature 37.6 C Temperature Source Oral Pulse Rate 113 H Pulse Rhythm Regular Pulse Strength Normal Respiratory Rate 18 Respiratory Effort / Characteristics Non-Labored Non-Labored Respiratory Depth Normal Normal Respiratory Pattern Regular Regular Blood Pressure 142/83 H Blood Pressure Mean 102 Blood Pressure Position Lying Pulse Oximetry 99 98 Oxygen Delivery Method Room Air Room Air Room Air Sepsis Recent Fever Within 48 Hours Yes Sepsis New/Unexplained Change in Mental Status No Sepsis Action Taken by Nursing No Action Required 05/08/21 15:06 Temperature Temperature Source Pulse Rate 110 H Pulse Rhythm Regular Pulse Strength Respiratory Rate 20 Respiratory Effort / Characteristics Respiratory Depth Respiratory Pattern Blood Pressure Blood Pressure Mean Blood Pressure Position Pulse Oximetry 98 Oxygen Delivery Method Room Air Sepsis Recent Fever Within 48 Hours Sepsis New/Unexplained Change in Mental Status Sepsis Action Taken by Nursing Laboratory Data Result diagrams: 05/08/21 15:25 05/08/21 15:25 Lab Results 05/08/21 05/08/21 05/08/21 Range/Units 15:13 15:25 15:25 WBC 9.51 (4.8-10.8) K/uL RBC 4.47 (4.2-5.4) M/uL Hgb 11.0 L (12.0-16.0) g/dL Hct 36.4 L (37-47) % MCV 81.4 (80-100) fL MCH 24.6 L (25-34) pg MCHC 30.2 L (32-36) g/dL RDW Std Deviation 77.7 H (36.4-46.3) fL RDW Coeff of Reginaldo 27.9 H (11.5-14.5) % Plt Count 281 (130-400) K/uL MPV 9.8 (7.4-10.4) fL Immature Gran % (Auto) 0.2 % Neut % (Auto) 83.4 % Lymph % (Auto) 9.4 % Tompkins % (Auto) 6.4 % Eos % (Auto) 0.5 % Baso % (Auto) 0.1 % Neut # (Auto) 7.93 H (1.4-6.5) K/uL Lymph # (Auto) 0.89 L (1.2-3.4) K/uL Tompkins # (Auto) 0.61 H (0.11-0.59) K/uL Eos # (Auto) 0.05 (0-0.5) K/uL Baso # (Auto) 0.01 (0-0.2) K/uL Immature Gran # (Auto) 0.02 (0.00-0.02) K/uL Polychromasia 1+ Hypochromasia Present Anisocytosis Present PT (9.0-12.0) Seconds INR (0.9-1.1) Sodium 137 (136-145) mmol/L Potassium 3.2 L (3.5-5.1) mmol/L Chloride 107 (98-107) mmol/L Carbon Dioxide 21 (21-32) mmol/L Anion Gap 9.0 (3-11) BUN 15 (7-18) mg/dl Creatinine 1.10 (0.6-1.2) mg/dl Est Cr Clr Drug Dosing 49.6 ml/min Est GFR ( Amer) 63.6 ml/min Est GFR (Non-Af Amer) 54.9 ml/min BUN/Creatinine Ratio 14.0 (10-20) Glucose 110 H (70-99) mg/dl Lactate (0.4-2.0) mmol/L Calcium 9.8 (8.5-10.1) mg/dl Magnesium 2.1 (1.8-2.4) mg/dl Total Bilirubin 0.3 (0.2-1) mg/dl AST 52 H (15-37) U/L ALT 167 H (12-78) U/L Alkaline Phosphatase 584 H (45-117) U/L Troponin I < 0.015 (0-0.045) ng/ml Total Protein 7.9 (6.4-8.2) gm/dl Albumin 3.1 L (3.4-5.0) gm/dl Globulin 4.8 H (2.5-4.0) gm/dl Albumin/Globulin Ratio 0.7 L (0.9-2) Lipase 78 (73-393) U/L COVID-19 Eval Order Covid19 at [facility] 05/08/21 05/08/21 Range/Units 15:25 15:55 WBC (4.8-10.8) K/uL RBC (4.2-5.4) M/uL Hgb (12.0-16.0) g/dL Hct (37-47) % MCV (80-100) fL MCH (25-34) pg MCHC (32-36) g/dL RDW Std Deviation (36.4-46.3) fL RDW Coeff of Reginaldo (11.5-14.5) % Plt Count (130-400) K/uL MPV (7.4-10.4) fL Immature Gran % (Auto) % Neut % (Auto) % Lymph % (Auto) % Tompkins % (Auto) % Eos % (Auto) % Baso % (Auto) % Neut # (Auto) (1.4-6.5) K/uL Lymph # (Auto) (1.2-3.4) K/uL Tompkins # (Auto) (0.11-0.59) K/uL Eos # (Auto) (0-0.5) K/uL Baso # (Auto) (0-0.2) K/uL Immature Gran # (Auto) (0.00-0.02) K/uL Polychromasia Hypochromasia Anisocytosis PT 11.7 (9.0-12.0) Seconds INR 1.2 H (0.9-1.1) Sodium (136-145) mmol/L Potassium (3.5-5.1) mmol/L Chloride (98-107) mmol/L Carbon Dioxide (21-32) mmol/L Anion Gap (3-11) BUN (7-18) mg/dl Creatinine (0.6-1.2) mg/dl Est Cr Clr Drug Dosing ml/min Est GFR ( Amer) ml/min Est GFR (Non-Af Amer) ml/min BUN/Creatinine Ratio (10-20) Glucose (70-99) mg/dl Lactate 1.1 (0.4-2.0) mmol/L Calcium (8.5-10.1) mg/dl Magnesium (1.8-2.4) mg/dl Total Bilirubin (0.2-1) mg/dl AST (15-37) U/L ALT (12-78) U/L Alkaline Phosphatase (45-117) U/L Troponin I (0-0.045) ng/ml Total Protein (6.4-8.2) gm/dl Albumin (3.4-5.0) gm/dl Globulin (2.5-4.0) gm/dl Albumin/Globulin Ratio (0.9-2) Lipase (73-393) U/L COVID-19 Eval Order Imaging Data Radiologist's Impression: Chest X-Ray 05/08/21 15:04 XR chest 1V portable HISTORY: 60 years-old Female Dyspnea, cough, fever acute cough with fever COMPARISON: Chest radiograph 03/15/2017 TECHNIQUE: Portable AP view of the chest FINDINGS: Cardiomediastinal and hilar silhouettes appear unchanged. Right IJ [id number] catheter. No pneumothorax, pleural effusion or overt pulmonary edema. Mild right hemidiaphragmatic elevation. Degenerative changes of the shoulders and spine. Surgical clips of the right upper quadrant abdomen. Moderate fecal retention. IMPRESSION: No acute process. ACT 112: Negative or not required by law. The above report was generated using voice recognition software. It may contain grammatical, syntax or spelling errors. Electronically signed by: Andrez Foster M.D. 05/08/2021 3:15 PM Discharge Plan Visit Data Chief Complaint: Shortness of Breath/Dyspnea Stated Complaint: SOB ED Provider: Izaiah Armstrong Discharge Problem: Breathlessness, Cough, Elevated LFTs, Bronchitis Patient Disposition: Being Evaluated by Hospitalist Forms Stand Alone Forms: [facility] Prescriptions Prescriptions: No Action aspirin [Aspirin Low Dose] 81 mg Tablet,Delayed Release (Dr/Ec) 81 mg PO DAILY RF: 0 Combivent Respimat 20-100 mcg/actuation mist 1 puff INHALATION BID PRN (Reason: Shortness Of Breath Or Wheezing) RF: 0 rabeprazole 20 mg Tablet,Delayed Release (Dr/Ec) 40 mg PO BID RF: 0 ropinirole 1 mg Tablet 1 mg PO HS RF: 0 amitriptyline 75 mg Tablet 75 mg PO HS RF: 0 cimetidine 400 mg Tablet 400 mg PO BID RF: 0 sucralfate [Carafate] 1 gram Tablet 1 g PO QID RF: 0 hyoscyamine sulfate 0.375 mg Tablet Extended Release 12 Hr 0.375 mg PO BID RF: 0 ergocalciferol (vitamin D2) [Vitamin D2] 1,250 mcg (50,000 unit) Capsule 1,250 mcg PO 2XWK RF: 0 polyethylene glycol 3350 [Miralax] 17 gram/dose Powder 17 g PO BID RF: 0 verapamil 80 mg Tablet 80 mg PO BID RF: 0 topiramate [Topamax] 100 mg Tablet 100 mg PO BID RF: 0 ferrous sulfate 324 mg (65 mg iron) Tablet,Delayed Release (Dr/Ec) 324 mg PO QID RF: 0 Referrals Referrals: Christiano Muñoz MD [Primary Care Provider] -
[2021-05-08 15:53] LABS: Alanine Aminotransferase 167 U/L (12-78); Albumin Level 3.1 gm/dl (3.4-5.0); Aspartate Aminotransferase 52 U/L (15-37); Blood Urea Nitrogen 15 mg/dl (7-18); Calcium 9.8 mg/dl (8.5-10.1); Carbon Dioxide 21 mmol/L (21-32); Chloride 107 mmol/L (98-107); Creatinine Clr Calc Pharmacy 49.6 ml/min; Est GFR (African American) 63.6 ml/min; Est GFR (Non-African American) 54.9 ml/min; Glucose 110 mg/dl (70-99); Magnesium 2.1 mg/dl (1.8-2.4); Potassium 3.2 mmol/L (3.5-5.1); Sodium 137 mmol/L (136-145)
[2021-05-08 15:54] LABS: INR 1.2 (0.9-1.1); Prothrombin Time 11.7 Seconds (9.0-12.0)
[2021-05-08 15:56] LABS: Basophils # (auto) 0.01 K/uL (0-0.2); Basophils % (auto) 0.1 %; Eosinophils # (auto) 0.05 K/uL (0-0.5); Eosinophils % (auto) 0.5 %; Hematocrit (blood only) 36.4 % (37-47); Immature Granulocytes # (auto) 0.02 K/uL (0.00-0.02); Immature Granulocytes % (auto) 0.2 %; Lymphocytes # (auto) 0.89 K/uL (1.2-3.4); Lymphocytes % (auto) 9.4 %; Mean Corpuscular Hemoglobin 24.6 pg (25-34); Mean Corpuscular Hgb Conc 30.2 g/dL (32-36); Mean Corpuscular Volume 81.4 fL (80-100); Mean Platelet Volume 9.8 fL (7.4-10.4); Monocytes # (auto) 0.61 K/uL (0.11-0.59); Monocytes % (auto) 6.4 %; Neutrophils # (auto) 7.93 K/uL (1.4-6.5); Neutrophils % (auto) 83.4 %; Platelet Count 281 K/uL (130-400); RDW Coefficient of Variation 27.9 % (11.5-14.5); RDW Standard Deviation 77.7 fL (36.4-46.3); Red Blood Count 4.47 M/uL (4.2-5.4); White Blood Count 9.51 K/uL (4.8-10.8)
[2021-05-08 15:58] LABS: Albumin Globulin Ratio 0.7 (0.9-2); Alkaline Phosphatase 584 U/L (45-117); Bilirubin,Total 0.3 mg/dl (0.2-1); Globulin 4.8 gm/dl (2.5-4.0); Total Protein 7.9 gm/dl (6.4-8.2); Troponin I < 0.015 ng/ml (0-0.045)
[2021-05-08 16:23] LABS: Lipase 78 U/L (73-393)
[2021-05-08] MEDS ORDERED: ACETAMINOPHEN 325 MG TAB PO STA (16:35)
[2021-05-08] MEDS ORDERED: POTASSIUM CHLORIDE CRTAB 20 MEQ TABCR PO STA (16:35)
[2021-05-08] MEDS ORDERED: SODIUM CHLORIDE 0.9% 500 ML IV ONE (16:36)
[2021-05-08] MEDS ORDERED: levoFLOXacin 750 MG TAB PO ONE (16:39)
[2021-05-08 16:42] LABS: Anisocytosis Present; Hypochromasia Present; Polychromasia 1+
--- NOTE | 2021-05-08 20:57 | History & Physical Report ---
Date of Service May 08, 2021 Assessment & Plan (1) Severe persistent asthma with (acute) exacerbation: (2) Transaminitis: (3) Hypokalemia: Plan: This is a 60-year-old female who has significant past medical history of severe persistent asthma, CYNTHIA on CPAP, paroxysmal atrial tachycardia, HLD, hypothyroidism, allergic rhinitis, celiac disease and lactose intolerant, GERD with esophagitis, RLS, history of migraine, iron deficiency anemia who presents to ED secondary to shortness of breath and cough x8 days. Patient does not meet for SIRS/sepsis on admission Chest x-ray without acute consolidation, procalcitonin 0.33 Covid screen negative Patient with increasing shortness of breath and purulent productive cough without hypoxia Differential diagnosis likely acute exacerbation of asthma, possible viral component Admit to med telemetry Prednisone 40 mg daily x5 days Levaquin 750 mg daily x7 days Obtain sputum culture Blood culture also pending Flutter valve, incentive spirometer Ipratropium/levalbuterol 4 times daily Guaifenesin AC continue dulera, singulair, nasonex, pt admits to using Hypokalemia Replace Give additional IV fluid plus KCl this evening Repeat in a.m. Transaminitis Recent hospitalization secondary to acute colitis LFTs elevated at that time and viral serologies negative MRCP showed Smoothly dilated common bile duct measuring 9 mm in this postcholecystectomy patient. There is mild prominence and possible beading of the intrahepatic bile ducts as well. No bile duct wall thickening is seen to suggest acute cholangitis. No choledocholithiasis is seen. The pancreatic duct is normal. 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 Acute Blood loss Anemia 2/2 to Colitis - POA occurred during recent hospitalization on iron supplement Hgb improved to 11.0 no s/sx of bleeding HISTORY OF PAROXYSMAL TACHYCARDIA Continue usual verapamil continue ASA CYNTHIA Cpap at home with nose piece, dose not tolerate face mask Hers is broke at home will use 2L of O2 At HS RESTLESS LEG SYNDROME Continue ropinirole HYPOTHYROIDISM Continue levothyroxine Celiac disease/Gluten Free/Lactose Intolerance DVT ppx: SCD/TEDS due to recent LGIB FULL CODE DISPO: med tele, likely discharge in 1-2 days PCP:[place] Pt was seen and examined in collaboration with Dr. Handley, please see addendum History of Present Illness Chief Complaint: SOB/Cough x 8 days. Primary Care Provider: Christiano Muñoz MD This is a 60-year-old female who has significant past medical history of severe persistent asthma, CYNTHIA on CPAP, paroxysmal atrial tachycardia, HLD, hypothyroidism, allergic rhinitis, celiac disease and lactose intolerant, GERD with esophagitis, RLS, history of migraine, iron deficiency anemia who presents to ED secondary to shortness of breath and cough x8 days. Of significance patient recently hospitalized 04/06-04/11 secondary to weakness, nausea, vomiting and bloody diarrhea for 3 days. She was diagnosed with acute colitis. She did require 2 units of PRBC transfusion during admission. Endoscopy was deferred and recommended colonoscopy in 6 weeks. She was prescribed Flagyl for 10 days. She also had elevated liver enzymes and underwent MRCP which showed dilated common bile duct measuring 9 mm consistent with a postcholecystectomy but also maggy concern for possible PSC. GI recommends outpatient work-up for primary sclerosing cholangitis. Since discharge she had been doing well until de veloping respiratory symptoms over the past 8 days. She complains of a productive cough of purulent sputum and increasing shortness of breath with exertion. She further complains of fever and chills with a temperature max of 100.6. She is not vaccinated for Covid and has been around no known sick contacts. She denies any lightheadedness, dizziness, chest pain, shortness breath at rest, hemoptysis, palpitations, nausea, vomiting, abdominal pain, change in bowel or urinary habits. She admits to a bowel movement approximately every other day. She is currently on iron 4 times a day as well as MiraLAX 4 times a day. She has tried [id number] Delsym without relief. She further complains of generalized weakness, malaise and fatigue. At home she is prescribed Dulera and Combivent for her severe persistent asthma. She has been compliant with this. She previously had Xopenex as needed, but has run out of this. In ED patient remained hemodynamically stable and did not require any supplemental oxygen. Her chest x-ray was negative for acute consolidation. Her procalcitonin was detectable at 0.33. Her CMP was remarkable for potassium 3.2, AST 52, ALT 167 and alk phos 584. Her SARS-CoV-2 was negative. Her H&H was stable at 11.0 and 36.4. In ED she received potassium supplementation and started on oral Levaquin. Allergies Allergy/AdvReac Type Severity Reaction Status Date / Time bee venom protein (honey bee) Allergy Severe ANAPHYLAXIS Verified 05/08/21 18:35 cefaclor Allergy Severe CECLOR - Verified 05/08/21 18:35 SOB;RASH; UPSET STOMACH coconut Allergy Severe RASH; SOB Verified 05/08/21 18:35 iron Allergy Severe SOB,TACHY Verified 05/08/21 18:35 WITH IV IRON latex Allergy Severe Anaphylaxis Verified 05/08/21 18:35 Penicillins Allergy Severe Anaphylaxis Verified 05/08/21 18:35 Sulfa (Sulfonamide Allergy Severe Anaphylaxis Verified 05/08/21 18:35 Antibiotics) tetracycline Allergy Severe SOB;RASH; Verified 05/08/21 18:35 N/V lactose Allergy Mild RASH; Verified 05/08/21 18:35 BLOATING; DIARRHEA; VOMITING ROBER Inhibitors Allergy Unknown COUGH AND Verified 05/08/21 18:35 RASH egg Allergy Unknown RASH & Verified 05/08/21 18:35 Bloating Influenza Virus Vaccines Allergy Unknown rash and Verified 05/08/21 18:35 bloating Quinolones Allergy Unknown ALLERGY TO Verified 05/08/21 18:35 AVELOX ,CAN TAKE CIPRO OR LEVAQUIN W/O RXN gluten AdvReac Unknown CELIAC'S Verified 05/08/21 18:35 Home Medications Medication Instructions Recorded Confirmed Type amitriptyline 75 mg tablet 75 mg PO HS 12/24/20 05/08/21 History cimetidine 400 mg tablet 400 mg PO BID 12/24/20 05/08/21 History ergocalciferol (vitamin D2) 1,250 1,250 mcg PO MOTH 12/24/20 05/08/21 History mcg (50,000 unit) capsule (Vitamin D2) ferrous sulfate 324 mg (65 mg 324 mg PO QID 12/24/20 05/08/21 History iron) tablet,delayed release hyoscyamine sulfate 0.375 mg 0.375 mg PO QID PRN 12/24/20 05/08/21 History tablet,extended release,12 hr polyethylene glycol 3350 17 17 g PO QID 12/24/20 05/08/21 History gram/dose oral powder (Miralax) rabeprazole 20 mg tablet,delayed 40 mg PO BID 12/24/20 05/08/21 History release ropinirole 1 mg tablet 1 mg PO HS 12/24/20 05/08/21 History sucralfate 1 gram tablet (Carafate) 1 g PO QID 12/24/20 05/08/21 History topiramate 100 mg tablet (Topamax) 100 mg PO BID 12/24/20 05/08/21 History verapamil 80 mg tablet 80 mg PO BID 12/24/20 05/08/21 History aspirin 81 mg tablet,delayed 81 mg PO DAILY 04/06/21 05/08/21 History release (Aspirin Low Dose) ipratropium 20 mcg-albuterol 100 1 puff INHALATION QID 04/06/21 05/08/21 History mcg/actuation mist for inhalation (Combivent Respimat) fexofenadine 180 mg tablet 180 mg PO DAILY 05/08/21 05/08/21 History levothyroxine 100 mcg tablet 100 mcg PO DAILY@0630 05/08/21 05/08/21 History mometasone 50 mcg/actuation nasal 2 spray INTRANASAL DAILY 05/08/21 05/08/21 History spray (Nasonex) mometasone-formoterol HFA 200 2 puff INHALATION Q12H 05/08/21 05/08/21 History mcg-5 mcg/actuation aerosol inhaler (Dulera) montelukast 10 mg tablet 10 mg PO DAILY 05/08/21 05/08/21 History ondansetron 4 mg disintegrating 4 mg TRANSLINGUAL TID PRN 05/08/21 05/08/21 History tablet tapentadol 100 mg tablet (Nucynta) 100 mg PO QID PRN 05/08/21 05/08/21 History guaifenesin 600 mg tablet, 600 mg PO BID #10 tab 05/15/21 Rx extended release 12 hr potassium chloride 20 mEq 20 meq PO DAILY #7 tab 05/15/21 Rx tablet,extended release Past Med/Surg History Medical History Adrenal cyst monitoring Anxiety Asthma, severe persistent Celiac disease Chronic back pain Chronic obstructive pulmonary disease Degenerative disc disease Dyslipidemia Gastroparesis GERD (gastroesophageal reflux disease) Heart disease Hx of sepsis ~2017 treated at [facility]. Hypertension Hypothyroidism no current medication -- TSH normal without meds. IBS (irritable bowel syndrome) CHARLES (iron deficiency anemia) ferrous sulfate QID. Kidney stones no surgery Mitral valve prolapse follows with Dr Aguirre MRSA (methicillin resistant Staphylococcus aureus) 1999 dx nose septum wound 2019 dx in lungs Narcolepsy NSVT (nonsustained ventricular tachycardia) Osteoarthritis Sleep apnea CPAP -- have not used in about a year (it broke and has not yet been fixed) Surgical History History of arthroscopic knee surgery left History of bilateral tubal ligation History of section x1 History of colonoscopy History of dilatation and curettage History of esophagogastroduodenoscopy (EGD) Hx of cardiac cath "2009 - normal coronaries" Hx of cholecystectomy S/P nasal surgery S/P surgery on nasal septum "collapsed septum" s/p post op infection that "ate away the septum" S/P GLENNY-BSO Family History Other No family history of adverse response to anesthesia Social History Smoking Status: Never smoker Second Hand Exposure: No; Do You Dip or Chew Tobacco: No; Tobacco Cessation Education Requested by Patient: No Hx Alcohol Use: No Hx Substance Use: No Preferred Language: Libyan Communication Ability: Effective Oncology Physician Assistant Required: No Beliefs That Will Affect Care: None Current Living Situation: Spouse and Family Current Living Situation Comment: and adult son Other Information That Helps Us Care for You: No Feels Safe at Home: Yes Safety Concerns: Feels Safe At This Time Assistive Devices: Glasses Review of Systems Review of Systems: All systems reviewed & are unremarkable except as noted in HPI & below Physical Exam Physical Exam: Constitutional: WD/WN, vitals as above, NAD, sitting up in be d, pleasant, conversing easily Head: Normocephalic, Atraumatic Eyes: PERRL, conjunctivae normal, anicteric sclerae ENMT: external ear and nose normal, oropharynx normal Neck: trachea midline, no thyromegaly normal visual inspection Respiratory: normal respiratory effort, lungs clear to auscultation with bilateral lower lobe rhonchi and expiratory wheezing with a prolonged expiratory phase, no rales. Normal insp/exp effort, no accessory muscle use Cardiovascular: RRR, no murmur, no edema Vessels: no JVD or carotid bruit Chest: normal inspection of chest Abdomen: normal bowel sounds, soft, nontender, no hepatosplenomegaly Musculoskeletal: no cyanosis or clubbing, extremities motor strength 5/5 Skin: no rashes, warm and dry normal turgor Neurologic: PERRL, EOMI, accommodation nl, no face palsy, no dysarthria CN's II-XI intact bilaterally and moves all extremities Psychiatric: A+Ox3, euthymic affect : deferred Results & Data Results & Data ([facility]) Vital Signs (Past 12 Hours) Vital Signs Temp Pulse Pulse Resp BP BP Pulse Ox 05/08/21 20:35 78 17 100/64 97 05/08/21 19:23 95 H 16 121/75 96 05/08/21 17:40 99 H 16 121/70 97 05/08/21 15:06 110 H 20 98 05/08/21 15:03 98 05/08/21 14:57 37.6 C 113 H 18 142/83 H 99 Diagnostic Findings Chest X-Ray 05/08/21 15:04 XR chest 1V portable HISTORY: 60 years-old Female Dyspnea, cough, fever acute cough with fever COMPARISON: Chest radiograph 03/15/2017 TECHNIQUE: Portable AP view of the chest FINDINGS: Cardiomediastinal and hilar silhouettes appear unchanged. Right IJ Szwqyw-w-Qyro catheter. No pneumothorax, pleural effusion or overt pulmonary edema. Mild right hemidiaphragmatic elevation. Degenerative changes of the shoulders and spine. Surgical clips of the right upper quadrant abdomen. Moderate fecal retention. IMPRESSION: No acute process. ACT 112: Negative or not required by law. The above report was generated using voice recognition software. It may contain grammatical, syntax or spelling errors. Electronically signed by: Andrez Foster M.D. 05/08/2021 3:15 PM Medications Administered Medication List Discontinued Medications Acetaminophen (Acetaminophen 325 Mg Tab) 650 mg PO NOW STA Stop: 05/08/21 16:36 Last Admin: 05/08/21 17:39 Dose: 650 mg Documented by: [id number] Sodium Chloride (Nss) 500 mls @ 999 mls/hr IV .Q31M ONE Stop: 05/08/21 17:06 Last Infusion: 05/08/21 19:11 Dose: 0 mls/hr Documented by: [id number] Admin: 05/08/21 17:39 Dose: 999 mls/hr Documented by: [id number] Levofloxacin (Levofloxacin 750 Mg Tab) 750 mg PO ONE ONE Stop: 05/08/21 16:40 Last Admin: 05/08/21 17:39 Dose: 750 mg Documented by: [id number] Potassium Chloride (Potassium Chloride Crtab 20 Meq Tabcr) 20 meq PO NOW STA Stop: 05/08/21 16:36 Last Admin: 05/08/21 17:39 Dose: 20 meq Documented by: [id number] ECG Rate (beats per minute): 109 Rhythm: sinus tachycardia COVID-19 Results Results COVID-19 Adm Lab Results: RBC 3.87 M/uL (4.2-5.4) L 05/11/21 WBC 8.53 K/uL (4.8-10.8) 05/11/21 Hgb 9.5 g/dL (12.0-16.0) L 05/11/21 Hct 31.8 % (37-47) L 05/11/21 Plt Count 253 K/uL (130-400) 05/11/21 Neutrophils (%) (Auto) 93.0 % 05/09/21 Lymphocytes (%) (Auto) 5.8 % 05/09/21 Monocytes # (Auto) 0.08 K/uL (0.11-0.59) L 05/09/21 Eosinophils # (Auto) 0.00 K/uL (0-0.5) 05/09/21 Immature Granulocyte % (Auto) 0.1 % 05/09/21 Neutrophils # (Auto) 6.58 K/uL (1.4-6.5) H 05/09/21 Lymphocytes # (Auto) 0.41 K/uL (1.2-3.4) L 05/09/21 Monocytes # (Auto) 0.08 K/uL (0.11-0.59) L 05/09/21 Eosinophils # (Auto) 0.00 K/uL (0-0.5) 05/09/21 Basophils # (Auto) 0.00 K/uL (0-0.2) 05/09/21 Immature Granulocyte # (Auto) 0.01 K/uL (0.00-0.02) 05/09/21 Polychromasia 1+ 05/09/21 Hypochromasia Present 05/08/21 Anisocytosis Present 05/09/21 Na 140 mmol/L (136-145) 05/15/21 K 3.6 mmol/L (3.5-5.1) 05/15/21 Cl 110 mmol/L (98-107) H 05/15/21 CO2 24 mmol/L (21-32) 05/15/21 Anion Gap 6.0 (3-11) 05/15/21 BUN 18 mg/dl (7-18) 05/15/21 Creatinine 0.85 mg/dl (0.6-1.2) 05/15/21 BUN/Creatinine Ratio 21.5 (10-20) H 05/15/21 Glucose Level 97 mg/dl (70-99) 05/15/21 Ca 9.5 mg/dl (8.5-10.1) 05/15/21 Phosphorus Level 3.1 mg/dl (2.5-4.9) 05/15/21 Total Bilirubin 0.2 mg/dl (0.2-1) 05/11/21 AST/SGOT 10 U/L (15-37) L 05/11/21 ALT/SGPT 66 U/L (12-78) 05/11/21 Alkaline Phosphatase 307 U/L (45-117) H 05/11/21 Total Protein 6.1 gm/dl (6.4-8.2) L 05/11/21 Albumin 2.3 gm/dl (3.4-5.0) L 05/11/21 Globulin 3.8 gm/dl (2.5-4.0) 05/11/21 Albumin/Globulin Ratio 0.6 (0.9-2) L 05/11/21 Troponin I < 0.015 ng/ml (0-0.045) 05/15/21 Procalcitonin 0.33 ng/ml (0-0.5) 05/08/21 INR 1.2 (0.9-1.1) H 05/08/21 COVID-19 PCR NEGATIVE (Negative) 05/08/21 Micro Respiratory Specimen 05/09/21 Chest X-Ray 05/08/21 Code Status & VTE Plan Code Status Full code VTE Prophylaxis Plan VTE Prophylaxis will be ordered: Yes Supervising Physician Co-Signing Physician Notes Pt was seen and examined. Agreed with Ashlyn CLIFFORD exam, assessment and plan. 60-year-old female who has significant past medical history of severe persistent asthma, CYNTHIA on CPAP, paroxysmal atrial tachycardia, HLD, hypothyroidism, allergic rhinitis, celiac disease and lactose intolerant, GERD with esophagitis, RLS, history of migraine, iron deficiency anemia who presents to ED secondary to shortness of breath and cough x8 days. She has been having productive cough of purulent sputum and increasing shortness of breath with exertion associated with fever and chills with a temperature max of 100.6. She is not vaccinated for Covid and has been around no known sick contacts. CXR on admission no acute process.Will continue Prednisone 40 mg daily x5 days and Levaquin 750 mg daily x7 days. Will check sputum culture and Blood culture. Continue neb treatment. Will continue monitor closely. MD Ender
[2021-05-09] MEDS ORDERED: MAGNESIUM HYDROXIDE SUSP 30 ML UDC PO PRN (00:04)
[2021-05-09] MEDS ORDERED: ACETAMINOPHEN 325 MG TAB PO PRN (00:04)
[2021-05-09] MEDS ORDERED: ALUMINUM/MAGNESIUM SUSP 30 ML UDC PO PRN (00:04)
[2021-05-09] MEDS ORDERED: HYOSCYAMINE SULFATE 0.375 MG TABCR PO PRN (00:04)
[2021-05-09] MEDS ORDERED: POLYETHYLENE (MIRALAX) 17 GM PACK PO PRN (00:04)
[2021-05-09] MEDS ORDERED: NSS + 20MEQ KCL 20 MEQ/1,000 ML BAG IV SCH (00:30)
[2021-05-09] MEDS: IPRATROPIUM BROMIDE NEB SOLN 0.02% 2.5 ML VIAL INH SCH ×4 (00:37→19:22)
[2021-05-09] MEDS: LEVALBUTEROL HCL 0.63 MG/3 ML NEB NEB SCH ×4 (00:37→19:22)
[2021-05-09] MEDS ORDERED: XOPENEX/ATROVENT 0.63mg/0.5MG NEB COMBO NEB SCH (01:00)
[2021-05-09] MEDS: POLYETHYLENE (MIRALAX) 17 GM PACK PO SCH ×5 (01:08→21:02)
[2021-05-09] MEDS: SUCRALFATE 1 GM TAB PO SCH ×5 (01:09→21:01)
[2021-05-09] MEDS: predniSONE 20 MG TAB PO SCH ×2 (01:09→08:33)
[2021-05-09] MEDS: VERAPAMIL HCL 40 MG TAB PO SCH ×3 (01:09→21:00)
[2021-05-09] MEDS: TOPIRAMATE 100 MG TAB PO SCH ×3 (01:09→21:00)
[2021-05-09] MEDS: AMITRIPTYLINE HCL 25 MG TAB PO SCH ×2 (01:10→21:01)
[2021-05-09] MEDS: FERROUS SULFATE 325 MG TAB PO SCH ×5 (01:10→21:01)
[2021-05-09] MEDS: rOPINIRole HCL 1 MG TABLET PO SCH ×2 (01:10→21:01)
[2021-05-09] MEDS: LEVOTHYROXINE SODIUM 100 MCG TABLET PO SCH (06:40)
--- NOTE | 2021-05-09 07:40 | Electrocardiogram Report ---
Test Reason : Blood Pressure : / mmHG Vent. Rate : 109 BPM Atrial Rate : 109 BPM P-R Int : 136 ms QRS Dur : 078 ms QT Int : 338 ms P-R-T Axes : 052 -02 058 degrees QTc Int : 455 ms Sinus tachycardia with Premature atrial complexes Nonspecific ST abnormality Abnormal ECG When compared with ECG of 12-MAR-2017 12:13, Premature atrial complexes are now Present Confirmed by Vahid James ([id number]) on 05/09/2021 7:40:40 AM Referred By: REFERRED SELF Confirmed By:Vahid James
[2021-05-09] MEDS: FAMOTIDINE 40 MG TABLET PO SCH (08:33)
[2021-05-09] MEDS: ASPIRIN 81 MG ECTAB PO SCH (08:33)
[2021-05-09] MEDS: PANTOprazole 40 MG TAB PO SCH ×2 (08:33→21:01)
[2021-05-09] MEDS: MONTELUKAST SODIUM 10 MG TABLET PO SCH (08:33)
[2021-05-09] MEDS: FLUTICASONE PROPIONATE NA SPR 16 GM BTL SCH (08:33)
[2021-05-09] MEDS: FLUTICASONE/VILANTEROL 100/25MCG 14 PUFFS/INHALER INH SCH (08:34)
[2021-05-09] MEDS: FEXOFENADINE HCL 180 MG TAB PO SCH (08:34)
[2021-05-09] MEDS: TAPENTADOL HCL 50 MG TAB PO PRN ×3 (08:43→23:41)
[2021-05-09 08:50] LABS: Hematocrit (blood only) 31.5 % (37-47); Hemoglobin 9.6 g/dL (12.0-16.0); Immature Granulocytes # (auto) 0.01 K/uL (0.00-0.02); Immature Granulocytes % (auto) 0.1 %; Lymphocytes # (auto) 0.41 K/uL (1.2-3.4); Lymphocytes % (auto) 5.8 %; Mean Corpuscular Hemoglobin 24.3 pg (25-34); Mean Corpuscular Hgb Conc 30.5 g/dL (32-36); Mean Corpuscular Volume 79.7 fL (80-100); Mean Platelet Volume 9.5 fL (7.4-10.4); Monocytes # (auto) 0.08 K/uL (0.11-0.59); Monocytes % (auto) 1.1 %; Neutrophils # (auto) 6.58 K/uL (1.4-6.5); Platelet Count 245 K/uL (130-400); RDW Coefficient of Variation 27.9 % (11.5-14.5); RDW Standard Deviation 76.5 fL (36.4-46.3); Red Blood Count 3.95 M/uL (4.2-5.4); White Blood Count 7.08 K/uL (4.8-10.8)
[2021-05-09 09:49] LABS: Anisocytosis Present; Polychromasia 1+
[2021-05-09 09:59] LABS: Albumin Globulin Ratio 0.6 (0.9-2); Albumin Level 2.4 gm/dl (3.4-5.0); BUN Creatinine Ratio 14.6 (10-20); Bilirubin,Total 0.3 mg/dl (0.2-1); Calcium 9.4 mg/dl (8.5-10.1); Creatinine Clr Calc Pharmacy 81.4 ml/min; Est GFR (African American) 111.5 ml/min; Est GFR (Non-African American) 96.2 ml/min; Globulin 4.1 gm/dl (2.5-4.0); Magnesium 2.1 mg/dl (1.8-2.4); Potassium 3.6 mmol/L (3.5-5.1); Total Protein 6.5 gm/dl (6.4-8.2)
[2021-05-09 13:22] LABS: Appearance Urine Clear (Clear); Bilirubin Urine Negative (Negative); Blood Urine Negative (Negative); Color Urine Yellow; Glucose Urine UA Negative (Negative); Ketones Urine Negative (Negative); Leukocyte Esterase Urine Negative (Negative); Nitrite Urine Negative (Negative); Protein Urine Negative (Negative); Specific Gravity Urine 1.012 (1.000-1.030); Urobilinogen Urine Positive (Negative)
[2021-05-09] MEDS: levoFLOXacin 750 MG TAB PO SCH (17:28)
[2021-05-09] MEDS: COUGH DROP (SUGAR FREE) LOZ 24 LOZ/1 BOX BUCCAL PRN (21:02)
--- NOTE | 2021-05-09 23:55 | Hospitalist Progress Note ---
Date of Service May 09, 2021 Assessment & Plan (1) Severe persistent asthma with (acute) exacerbation: (2) Transaminitis: (3) Hypokalemia: Plan: This is a 60-year-old female who has significant past medical history of severe persistent asthma, CYNTHIA on CPAP, paroxysmal atrial tachycardia, HLD, hypothyroidism, allergic rhinitis, celiac disease and lactose intolerant, GERD with esophagitis, RLS, history of migraine, iron deficiency anemia who presents to ED secondary to shortness of breath and cough x8 days. Possible related to asthma exacerbation versus bronchitis Patient does not meet for SIRS/sepsis on admission Chest x-ray without acute consolidation, procalcitonin 0.33 Covid screen negative Patient with increasing shortness of breath and purulent productive cough without hypoxia Continue prednisone 40 mg daily and Levaquin 750 Blood culture no growth and sputum culture pending Continue neb treatment, flutter valve and incentive spirometry continue dulera, singulair, nasonex Hypokalemia Low potassium on admission Potassium stable Transaminitis Recent hospitalization secondary to acute colitis Elevated liver enzyme with ALT 112 and AST 432 LFTs elevated at that time and viral serologies negative MRCP showed Smoothly dilated common bile duct measuring 9 mm in this postcholecystectomy patient. There is mild prominence and possible beading of the intrahepatic bile ducts as well. No bile duct wall thickening is seen to suggest acute cholangitis. No choledocholithiasis is seen. The pancreatic duct is normal. 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 Continue monitor LFTs Acute Blood loss Anemia Hemoglobin on admission 11 Hemoglobin trending down to 9.6 Continue iron supplement No signs of active GI bleed Continue monitor CBC HISTORY OF PAROXYSMAL TACHYCARDIA Continue usual verapamil continue ASA CYNTHIA Cpap at home with nose piece, dose not tolerate face mask Hers is broke at home will use 2L of O2 At HS RESTLESS LEG SYNDROME Continue ropinirole HYPOTHYROIDISM Continue levothyroxine Celiac disease/Gluten Free/Lactose Intolerance DVT ppx: SCD/TEDS due to recent LGIB FULL CODE Admission and Anticipated Discharge Date Admission Date: May 08, 2021 Subjective Patient was seen and examined for follow-up shortness of breath and cough Lying in bed with no acute distress Patient said breathing slightly better She continues to cough and unable to bring her phlegm up Saturating well on room air Denies any chest pain, palpitation, dizziness, shortness of breath. Review of Systems Review of Systems: All systems reviewed & are unremarkable except as noted in Subjective Physical Exam Physical Exam: General- No acute distress Head- atraumatic Eyes- PERRL, EOMI, ENT- oropharynx clear Neck- supple, no JVD Lungs- +coarse BS Heart- regular rhythm; no murmur Abdomen- normal bowel sounds, soft, nontender Extremities- no calf tenderness Neuro- alert, oriented x 3; PERRL, EOMI; no facial palsy; no dysarthria Skin- warm & dry Results & Data Results & Data ([facility]) Vital Signs (Past 12 Hours) Vital Signs Temp Pulse Pulse Resp BP Pulse Ox 05/09/21 23:25 80 05/09/21 23:12 36.7 C 90 18 108/68 95 05/09/21 19:29 36.5 C 89 18 118/77 100 05/09/21 19:24 84 16 99 05/09/21 15:45 71 05/09/21 12:54 72 18 95
[2021-05-10] MEDS: IPRATROPIUM BROMIDE NEB SOLN 0.02% 2.5 ML VIAL INH SCH ×4 (00:58→19:17)
[2021-05-10] MEDS: LEVALBUTEROL HCL 0.63 MG/3 ML NEB NEB SCH ×4 (00:58→19:17)
[2021-05-10] MEDS: COUGH DROP (SUGAR FREE) LOZ 24 LOZ/1 BOX BUCCAL PRN ×6 (02:46→17:25)
[2021-05-10] MEDS: LEVOTHYROXINE SODIUM 100 MCG TABLET PO SCH (05:46)
[2021-05-10 06:22] LABS: Hematocrit (blood only) 30.8 % (37-47); Hemoglobin 9.2 g/dL (12.0-16.0); Mean Corpuscular Hemoglobin 24.3 pg (25-34); Mean Corpuscular Hgb Conc 29.9 g/dL (32-36); Mean Corpuscular Volume 81.5 fL (80-100); Platelet Count 251 K/uL (130-400); RDW Standard Deviation 78.4 fL (36.4-46.3); Red Blood Count 3.78 M/uL (4.2-5.4)
[2021-05-10 06:53] LABS: Albumin Level 2.2 gm/dl (3.4-5.0); BUN Creatinine Ratio 19.7 (10-20); Calcium 9.1 mg/dl (8.5-10.1); Creatinine Clr Calc Pharmacy 69.6 ml/min; Est GFR (African American) 96.4 ml/min; Est GFR (Non-African American) 83.2 ml/min; Potassium 3.4 mmol/L (3.5-5.1)
[2021-05-10 06:55] LABS: Albumin Globulin Ratio 0.6 (0.9-2); Bilirubin,Total 0.2 mg/dl (0.2-1); Globulin 3.8 gm/dl (2.5-4.0)
[2021-05-10] MEDS: FLUTICASONE PROPIONATE NA SPR 16 GM BTL SCH (08:39)
[2021-05-10] MEDS: POLYETHYLENE (MIRALAX) 17 GM PACK PO SCH ×4 (08:40→20:52)
[2021-05-10] MEDS: FLUTICASONE/VILANTEROL 100/25MCG 14 PUFFS/INHALER INH SCH (08:40)
[2021-05-10] MEDS: SUCRALFATE 1 GM TAB PO SCH ×4 (08:40→20:53)
[2021-05-10] MEDS: VERAPAMIL HCL 40 MG TAB PO SCH ×2 (08:40→20:54)
[2021-05-10] MEDS: PANTOprazole 40 MG TAB PO SCH ×2 (08:40→20:52)
[2021-05-10] MEDS: ASPIRIN 81 MG ECTAB PO SCH (08:41)
[2021-05-10] MEDS: TOPIRAMATE 100 MG TAB PO SCH ×2 (08:41→20:53)
[2021-05-10] MEDS: predniSONE 20 MG TAB PO SCH (08:41)
[2021-05-10] MEDS: FAMOTIDINE 40 MG TABLET PO SCH (08:41)
[2021-05-10] MEDS: FERROUS SULFATE 325 MG TAB PO SCH ×4 (08:41→20:51)
[2021-05-10] MEDS: MONTELUKAST SODIUM 10 MG TABLET PO SCH (08:41)
[2021-05-10] MEDS: FEXOFENADINE HCL 180 MG TAB PO SCH (08:41)
[2021-05-10] MEDS ORDERED: POTASSIUM CHLORIDE CRTAB 20 MEQ TABCR PO STA (11:55)
[2021-05-10] MEDS: levoFLOXacin 750 MG TAB PO SCH (16:29)
[2021-05-10] MEDS: AMITRIPTYLINE HCL 25 MG TAB PO SCH (20:51)
[2021-05-10] MEDS: rOPINIRole HCL 1 MG TABLET PO SCH (20:52)
[2021-05-10] MEDS: TAPENTADOL HCL 50 MG TAB PO PRN (20:56)
--- NOTE | 2021-05-10 21:08 | Hospitalist Progress Note ---
Date of Service May 10, 2021 Assessment & Plan (1) Severe persistent asthma with (acute) exacerbation: (2) Transaminitis: (3) Hypokalemia: Plan: This is a 60-year-old female who has significant past medical history of severe persistent asthma, CYNTHIA on CPAP, paroxysmal atrial tachycardia, HLD, hypothyroidism, allergic rhinitis, celiac disease and lactose intolerant, GERD with esophagitis, RLS, history of migraine, iron deficiency anemia who presents to ED secondary to shortness of breath and cough x8 days. Possible related to asthma exacerbation versus bronchitis Patient does not meet for SIRS/sepsis on admission Chest x-ray without acute consolidation, procalcitonin 0.33 Covid screen negative Patient with increasing shortness of breath and purulent productive cough without hypoxia Continue prednisone 40 mg daily and Levaquin 750 Blood culture no growth and sputum culture no growth Continue neb treatment, flutter valve and incentive spirometry continue dulera, singulair, nasonex Will add mycomust Hypokalemia Low potassium on admission Potassium 3.4 today K replaced Continue monitor BMP Transaminitis Recent hospitalization secondary to acute colitis Elevated liver enzyme with ALT 112 and AST 432 LFT continue trending down MRCP showed Smoothly dilated common bile duct measuring 9 mm in this postcholecystectomy patient. There is mild prominence and possible beading of the intrahepatic bile ducts as well. No bile duct wall thickening is seen to suggest acute cholangitis. No choledocholithiasis is seen. The pancreatic duct is normal. 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 Anemia Hemoglobin on admission 11 Hemoglobin trending down to 9.2 Continue iron supplement No signs of active GI bleed Continue monitor CBC HISTORY OF PAROXYSMAL TACHYCARDIA Continue usual verapamil continue ASA CYNTHIA Cpap at home with nose piece, dose not tolerate face mask Hers is broke at home Continue 2L of O2 At HS RESTLESS LEG SYNDROME Continue ropinirole HYPOTHYROIDISM Continue levothyroxine Celiac disease/Gluten Free/Lactose Intolerance DVT ppx: SCD/TEDS due to recent LGIB FULL CODE Admission and Anticipated Discharge Date Admission Date: May 10, 2021 Subjective Patient was seen and examined for follow-up shortness of breath and cough Lying in bed with no acute distress She continues to have a hard time to bring her phlegm up Saturating well on room air Denies any chest pain, palpitation, dizziness, shortness of breath. Review of Systems Review of Systems: All systems reviewed & are unremarkable except as noted in Subjective Physical Exam Physical Exam: General- No acute distress Head- atraumatic Eyes- PERRL, EOMI, ENT- oropharynx clear Neck- supple, no JVD Lungs- +coarse BS Heart- regular rhythm; no murmur Abdomen- normal bowel sounds, soft, nontender Extremities- no calf tenderness Neuro- alert, oriented x 3; PERRL, EOMI; no facial palsy; no dysarthria Skin- warm & dry Results & Data Results & Data ([facility]) Vital Signs (Past 12 Hours) Vital Signs Temp Pulse Resp BP Pulse Ox 05/10/21 19:47 36.8 C 91 H 17 137/86 100 05/10/21 19:18 87 20 96 05/10/21 16:10 36.6 C 84 16 127/79 96 05/10/21 12:58 75 16 96 05/10/21 11:55 36.6 C 89 18 110/70 97
[2021-05-10] MEDS: ACETYLCYSTEINE 10% INHAL SOLN 4 ML **DISPENSED BY RESP. INH SCH (22:29)
[2021-05-11] MEDS: IPRATROPIUM BROMIDE NEB SOLN 0.02% 2.5 ML VIAL INH SCH ×4 (00:41→19:00)
[2021-05-11] MEDS: LEVALBUTEROL HCL 0.63 MG/3 ML NEB NEB SCH ×4 (00:42→19:00)
[2021-05-11] MEDS: ACETYLCYSTEINE 10% INHAL SOLN 4 ML **DISPENSED BY RESP. INH SCH ×2 (06:15→19:00)
[2021-05-11] MEDS: LEVOTHYROXINE SODIUM 100 MCG TABLET PO SCH (06:50)
[2021-05-11] MEDS: FLUTICASONE PROPIONATE NA SPR 16 GM BTL SCH (07:42)
[2021-05-11] MEDS: POLYETHYLENE (MIRALAX) 17 GM PACK PO SCH ×4 (07:42→20:25)
[2021-05-11] MEDS: FLUTICASONE/VILANTEROL 100/25MCG 14 PUFFS/INHALER INH SCH (07:42)
[2021-05-11] MEDS: predniSONE 20 MG TAB PO SCH (07:43)
[2021-05-11] MEDS: VERAPAMIL HCL 40 MG TAB PO SCH ×2 (07:43→20:25)
[2021-05-11] MEDS: PANTOprazole 40 MG TAB PO SCH ×2 (07:43→20:24)
[2021-05-11] MEDS: FERROUS SULFATE 325 MG TAB PO SCH ×4 (07:43→20:25)
[2021-05-11] MEDS: FEXOFENADINE HCL 180 MG TAB PO SCH (07:43)
[2021-05-11] MEDS: FAMOTIDINE 40 MG TABLET PO SCH (07:43)
[2021-05-11] MEDS: MONTELUKAST SODIUM 10 MG TABLET PO SCH (07:43)
[2021-05-11] MEDS: ASPIRIN 81 MG ECTAB PO SCH (07:43)
[2021-05-11] MEDS: TOPIRAMATE 100 MG TAB PO SCH ×2 (07:43→20:24)
[2021-05-11] MEDS: SUCRALFATE 1 GM TAB PO SCH ×4 (07:44→20:23)
[2021-05-11] MEDS: TAPENTADOL HCL 50 MG TAB PO PRN ×2 (07:47→14:51)
[2021-05-11 07:54] LABS: Hematocrit (blood only) 31.8 % (37-47); Hemoglobin 9.5 g/dL (12.0-16.0); Mean Corpuscular Hemoglobin 24.5 pg (25-34); Mean Corpuscular Hgb Conc 29.9 g/dL (32-36); Mean Corpuscular Volume 82.2 fL (80-100); Mean Platelet Volume 9.4 fL (7.4-10.4); Platelet Count 253 K/uL (130-400); RDW Coefficient of Variation 28.3 % (11.5-14.5); RDW Standard Deviation 79.5 fL (36.4-46.3); Red Blood Count 3.87 M/uL (4.2-5.4); White Blood Count 8.53 K/uL (4.8-10.8)
[2021-05-11 08:36] LABS: Albumin Level 2.3 gm/dl (3.4-5.0); BUN Creatinine Ratio 18.1 (10-20); Calcium 9.4 mg/dl (8.5-10.1); Creatinine Clr Calc Pharmacy 70.8 ml/min; Est GFR (Non-African American) 84.5 ml/min; Potassium 3.5 mmol/L (3.5-5.1)
[2021-05-11 08:39] LABS: Albumin Globulin Ratio 0.6 (0.9-2); Bilirubin,Total 0.2 mg/dl (0.2-1); Globulin 3.8 gm/dl (2.5-4.0); Total Protein 6.1 gm/dl (6.4-8.2)
[2021-05-11] MEDS: COUGH DROP (SUGAR FREE) LOZ 24 LOZ/1 BOX BUCCAL PRN ×2 (10:48→14:51)
[2021-05-11] MEDS: levoFLOXacin 750 MG TAB PO SCH (16:41)
--- NOTE | 2021-05-11 16:43 | Hospitalist Progress Note ---
Date of Service May 11, 2021 Assessment & Plan (1) Severe persistent asthma with (acute) exacerbation: (2) Transaminitis: (3) Hypokalemia: Plan: This is a 60-year-old female who has significant past medical history of severe persistent asthma, CYNTHIA on CPAP, paroxysmal atrial tachycardia, HLD, hypothyroidism, allergic rhinitis, celiac disease and lactose intolerant, GERD with esophagitis, RLS, history of migraine, iron deficiency anemia who presents to ED secondary to shortness of breath and cough x8 days. Possible related to asthma exacerbation versus bronchitis Patient does not meet for SIRS/sepsis on admission Chest x-ray without acute consolidation, procalcitonin 0.33 Covid screen negative Patient with increasing shortness of breath and purulent productive cough without hypoxia Continue prednisone 40 mg daily and Levaquin 750 Blood culture no growth and sputum culture no growth Continue neb treatment, flutter valve and incentive spirometry continue dulera, singulair, nasonex Continue Mucomyst Will start on chest PT Hypokalemia Low potassium on admission Potassium 3.5 today Continue monitor BMP Transaminitis Recent hospitalization secondary to acute colitis Elevated liver enzyme with ALT 112 and AST 432 AST and ALT trending down to normal MRCP showed Smoothly dilated common bile duct measuring 9 mm in this postcholecystectomy patient. There is mild prominence and possible beading of the intrahepatic bile ducts as well. No bile duct wall thickening is seen to suggest acute cholangitis. No choledocholithiasis is seen. The pancreatic duct is normal. GI recommended outpatient work up for primary sclerosing cholangitis with his motor coach bus driver Anemia Hemoglobin on admission 11 Hemoglobin stable at 9.5 Continue iron supplement No signs of active GI bleed Continue monitor CBC HISTORY OF PAROXYSMAL TACHYCARDIA Continue usual verapamil continue ASA CYNTHIA Cpap at home with nose piece, dose not tolerate face mask Hers is broke at home Continue 2L of O2 At HS RESTLESS LEG SYNDROME Continue ropinirole HYPOTHYROIDISM Continue levothyroxine Celiac disease/Gluten Free/Lactose Intolerance DVT ppx: SCD/TEDS due to recent LGIB FULL CODE Admission and Anticipated Discharge Date Admission Date: May 10, 2021 Subjective Patient was seen and examined for follow-up shortness of breath and cough Lying in bed with no acute distress She continues to have a hard time to bring her phlegm up Denies any chest pain, palpitation, dizziness, shortness of breath. Review of Systems Review of Systems: All systems reviewed & are unremarkable except as noted in Subjective Physical Exam Physical Exam: General- No acute distress Head- atraumatic Eyes- PERRL, EOMI, ENT- oropharynx clear Neck- supple, no JVD Lungs- +coarse BS Heart- regular rhythm; no murmur Abdomen- normal bowel sounds, soft, nontender Extremities- no calf tenderness Neuro- alert, oriented x 3; PERRL, EOMI; no facial palsy; no dysarthria Skin- warm & dry Results & Data Results & Data ([facility]) Vital Signs (Past 12 Hours) Vital Signs Temp Pulse Resp BP Pulse Ox 05/11/21 15:55 36.8 C 85 18 135/79 96 05/11/21 13:32 68 16 94 05/11/21 11:38 37.0 C 95 H 18 127/90 96 05/11/21 08:06 36.7 C 73 18 145/89 H 98 05/11/21 06:02 69 16 96
[2021-05-11] MEDS: AMITRIPTYLINE HCL 25 MG TAB PO SCH (20:24)
[2021-05-11] MEDS: rOPINIRole HCL 1 MG TABLET PO SCH (20:24)
[2021-05-12] MEDS: IPRATROPIUM BROMIDE NEB SOLN 0.02% 2.5 ML VIAL INH SCH ×3 (00:01→13:13)
[2021-05-12] MEDS: LEVALBUTEROL HCL 0.63 MG/3 ML NEB NEB SCH ×4 (00:01→19:48)
[2021-05-12] MEDS: LEVOTHYROXINE SODIUM 100 MCG TABLET PO SCH (07:12)
[2021-05-12] MEDS: ACETYLCYSTEINE 10% INHAL SOLN 4 ML **DISPENSED BY RESP. INH SCH ×2 (07:12→19:49)
[2021-05-12] MEDS: POLYETHYLENE (MIRALAX) 17 GM PACK PO SCH ×4 (08:17→20:23)
[2021-05-12] MEDS: FEXOFENADINE HCL 180 MG TAB PO SCH (08:17)
[2021-05-12] MEDS: MONTELUKAST SODIUM 10 MG TABLET PO SCH ×3 (08:17→20:21)
[2021-05-12] MEDS: ASPIRIN 81 MG ECTAB PO SCH (08:17)
[2021-05-12] MEDS: VERAPAMIL HCL 40 MG TAB PO SCH ×2 (08:18→20:20)
[2021-05-12] MEDS: PANTOprazole 40 MG TAB PO SCH ×2 (08:18→20:22)
[2021-05-12] MEDS: FERROUS SULFATE 325 MG TAB PO SCH ×4 (08:18→20:20)
[2021-05-12] MEDS: ERGOCALCIFEROL 50,000 UNITS 1250 MCG CAP PO SCH (08:18)
[2021-05-12] MEDS: predniSONE 20 MG TAB PO SCH (08:19)
[2021-05-12] MEDS: SUCRALFATE 1 GM TAB PO SCH ×4 (08:19→20:20)
[2021-05-12] MEDS: TOPIRAMATE 100 MG TAB PO SCH ×2 (08:19→20:24)
[2021-05-12] MEDS: FAMOTIDINE 40 MG TABLET PO SCH (08:19)
[2021-05-12] MEDS: FLUTICASONE/VILANTEROL 100/25MCG 14 PUFFS/INHALER INH SCH (08:20)
[2021-05-12] MEDS: FLUTICASONE PROPIONATE NA SPR 16 GM BTL SCH (08:20)
[2021-05-12] MEDS: TAPENTADOL HCL 50 MG TAB PO PRN ×2 (08:28→16:12)
[2021-05-12] MEDS ORDERED: Nursing to Pharmacy Communication SCH (15:15)
[2021-05-12] MEDS: levoFLOXacin 750 MG TAB PO SCH (16:13)
[2021-05-12] MEDS: AMITRIPTYLINE HCL 25 MG TAB PO SCH (20:21)
[2021-05-12] MEDS: rOPINIRole HCL 1 MG TABLET PO SCH (20:21)
--- NOTE | 2021-05-12 20:41 | Hospitalist Progress Note ---
Date of Service May 12, 2021 Assessment & Plan (1) Severe persistent asthma with (acute) exacerbation: (2) Transaminitis: (3) Hypokalemia: Plan: This is a 60-year-old female who has significant past medical history of severe persistent asthma, CYNTHIA on CPAP, paroxysmal atrial tachycardia, HLD, hypothyroidism, allergic rhinitis, celiac disease and lactose intolerant, GERD with esophagitis, RLS, history of migraine, iron deficiency anemia who presents to ED secondary to shortness of breath and cough x8 days. Possible related to asthma exacerbation versus bronchitis Patient does not meet for SIRS/sepsis on admission Chest x-ray without acute consolidation, procalcitonin 0.33 Covid screen negative Patient with increasing shortness of breath and purulent productive cough without hypoxia Continue prednisone 40 mg daily and Levaquin 750 Blood culture no growth and sputum culture no growth Continue neb treatment, flutter valve and incentive spirometry continue dulera, singulair, nasonex Continue Mucomyst Continue chest PT Hypokalemia Low potassium on admission Potassium 3.5 today Continue monitor BMP Transaminitis Recent hospitalization secondary to acute colitis Elevated liver enzyme with ALT 112 and AST 432 AST and ALT trending down to normal MRCP showed Smoothly dilated common bile duct measuring 9 mm in this postcholecystectomy patient. There is mild prominence and possible beading of the intrahepatic bile ducts as well. No bile duct wall thickening is seen to suggest acute cholangitis. No choledocholithiasis is seen. The pancreatic duct is normal. 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 Anemia Hemoglobin on admission 11 Hemoglobin stable at 9.5 Continue iron supplement No signs of active GI bleed Continue monitor CBC HISTORY OF PAROXYSMAL TACHYCARDIA Continue usual verapamil continue ASA CYNTHIA Cpap at home with nose piece, dose not tolerate face mask Hers is broke at home Continue 2L of O2 At HS RESTLESS LEG SYNDROME Continue ropinirole HYPOTHYROIDISM Continue levothyroxine Celiac disease/Gluten Free/Lactose Intolerance DVT ppx: SCD/TEDS due to recent LGIB FULL CODE Admission and Anticipated Discharge Date Admission Date: May 10, 2021 Subjective Patient was seen and examined for follow-up shortness of breath and cough Lying in bed with no acute distress Patient said that her cough started to get loose Denies any chest pain, palpitation, dizziness, shortness of breath. Review of Systems Review of Systems: All systems reviewed & are unremarkable except as noted in Subjective Physical Exam Physical Exam: General- No acute distress Head- atraumatic Eyes- PERRL, EOMI, ENT- oropharynx clear Neck- supple, no JVD Lungs- +coarse BS Heart- regular rhythm; no murmur Abdomen- normal bowel sounds, soft, nontender Extremities- no calf tenderness Neuro- alert, oriented x 3; PERRL, EOMI; no facial palsy; no dysarthria Skin- warm & dry Results & Data Results & Data ([facility]) Vital Signs (Past 12 Hours) Vital Signs Temp Pulse Pulse Resp BP BP Pulse Ox 05/12/21 20:00 36.6 C 105 H 18 159/98 H 96 05/12/21 19:49 102 H 20 97 05/12/21 15:56 36.8 C 102 H 18 128/83 97 05/12/21 15:26 98 H 05/12/21 13:13 110 H 20 96 05/12/21 11:34 36.7 C 107 H 20 137/97 97
[2021-05-12] MEDS: COUGH DROP (SUGAR FREE) LOZ 24 LOZ/1 BOX BUCCAL PRN (21:19)
[2021-05-13] MEDS: LEVOTHYROXINE SODIUM 100 MCG TABLET PO SCH (05:46)
[2021-05-13] MEDS: COUGH DROP (SUGAR FREE) LOZ 24 LOZ/1 BOX BUCCAL PRN ×2 (05:48→20:45)
[2021-05-13] MEDS: LEVALBUTEROL HCL 0.63 MG/3 ML NEB NEB SCH ×4 (07:13→19:33)
[2021-05-13] MEDS: ACETYLCYSTEINE 10% INHAL SOLN 4 ML **DISPENSED BY RESP. INH SCH ×2 (07:13→19:33)
[2021-05-13] MEDS: predniSONE 20 MG TAB PO SCH (08:20)
[2021-05-13] MEDS: ASPIRIN 81 MG ECTAB PO SCH (08:20)
[2021-05-13] MEDS: FERROUS SULFATE 325 MG TAB PO SCH ×4 (08:20→20:35)
[2021-05-13] MEDS: TOPIRAMATE 100 MG TAB PO SCH ×2 (08:20→20:38)
[2021-05-13] MEDS: PANTOprazole 40 MG TAB PO SCH ×2 (08:20→20:36)
[2021-05-13] MEDS: SUCRALFATE 1 GM TAB PO SCH ×4 (08:21→20:38)
[2021-05-13] MEDS: FEXOFENADINE HCL 180 MG TAB PO SCH (08:21)
[2021-05-13] MEDS: VERAPAMIL HCL 40 MG TAB PO SCH ×2 (08:21→20:39)
[2021-05-13] MEDS: FAMOTIDINE 40 MG TABLET PO SCH (08:21)
[2021-05-13] MEDS: FLUTICASONE/VILANTEROL 100/25MCG 14 PUFFS/INHALER INH SCH (08:22)
[2021-05-13] MEDS: FLUTICASONE PROPIONATE NA SPR 16 GM BTL SCH (08:22)
[2021-05-13] MEDS: POLYETHYLENE (MIRALAX) 17 GM PACK PO SCH ×4 (08:22→20:37)
[2021-05-13] MEDS: TAPENTADOL HCL 50 MG TAB PO PRN ×2 (10:51→20:33)
[2021-05-13] MEDS: levoFLOXacin 750 MG TAB PO SCH (16:53)
[2021-05-13] MEDS: ONDANSETRON INJ 2 MG/ML 2 ML VIAL IV PRN (20:34)
[2021-05-13] MEDS: AMITRIPTYLINE HCL 25 MG TAB PO SCH (20:34)
[2021-05-13] MEDS: MONTELUKAST SODIUM 10 MG TABLET PO SCH (20:36)
[2021-05-13] MEDS: rOPINIRole HCL 1 MG TABLET PO SCH (20:37)
--- NOTE | 2021-05-13 23:56 | Hospitalist Progress Note ---
Date of Service May 13, 2021 Assessment & Plan (1) Severe persistent asthma with (acute) exacerbation: (2) Transaminitis: (3) Hypokalemia: Plan: This is a 60-year-old female who has significant past medical history of severe persistent asthma, CYNTHIA on CPAP, paroxysmal atrial tachycardia, HLD, hypothyroidism, allergic rhinitis, celiac disease and lactose intolerant, GERD with esophagitis, RLS, history of migraine, iron deficiency anemia who presents to ED secondary to shortness of breath and cough x8 days. Possible related to asthma exacerbation versus bronchitis Patient does not meet for SIRS/sepsis on admission Chest x-ray without acute consolidation, procalcitonin 0.33 Covid screen negative Patient with increasing shortness of breath and purulent productive cough without hypoxia On prednisone 40 mg daily and Levaquin 750 Blood culture no growth and sputum culture no growth Continue neb treatment, flutter valve and incentive spirometry continue dulera, singulair, nasonex Continue Mucomyst Continue chest PT Hypokalemia Low potassium on admission Potassium stable Continue monitor BMP Transaminitis Recent hospitalization secondary to acute colitis Elevated liver enzyme with ALT 112 and AST 432 AST and ALT trending down to normal MRCP showed Smoothly dilated common bile duct measuring 9 mm in this postcholecystectomy patient. There is mild prominence and possible beading of the intrahepatic bile ducts as well. No bile duct wall thickening is seen to suggest acute cholangitis. No choledocholithiasis is seen. The pancreatic duct is normal. 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 Anemia Hemoglobin on admission 11 Hemoglobin stable Continue iron supplement No signs of active GI bleed Continue monitor CBC HISTORY OF PAROXYSMAL TACHYCARDIA Continue usual verapamil continue ASA CYNTHIA Cpap at home with nose piece, dose not tolerate face mask Hers is broke at home Continue 2L of O2 At HS RESTLESS LEG SYNDROME Continue ropinirole HYPOTHYROIDISM Continue levothyroxine Celiac disease/Gluten Free/Lactose Intolerance DVT ppx: SCD/TEDS due to recent LGIB FULL CODE Disposition Possible discharge tomorrow Admission and Anticipated Discharge Date Admission Date: May 10, 2021 Subjective Patient was seen and examined for follow-up shortness of breath and cough Lying in bed with no acute distress Patient said that her cough started to get looser, but continue to have hard time to bring it up She said the chest PT and Mucomyst seems to help Denies any chest pain, palpitation, dizziness, shortness of breath. Review of Systems Review of Systems: All systems reviewed & are unremarkable except as noted in Subjective Physical Exam Physical Exam: General- No acute distress Head- atraumatic Eyes- PERRL, EOMI, ENT- oropharynx clear Neck- supple, no JVD Lungs- +coarse BS Heart- regular rhythm; no murmur Abdomen- normal bowel sounds, soft, nontender Extremities- no calf tenderness Neuro- alert, oriented x 3; PERRL, EOMI; no facial palsy; no dysarthria Skin- warm & dry Results & Data Results & Data ([facility]) Vital Signs (Past 12 Hours) Vital Signs Temp Pulse Pulse Resp BP Pulse Ox 05/13/21 23:02 37.0 C 111 H 18 134/90 95 05/13/21 19:37 106 H 20 96 05/13/21 19:00 36.9 C 97 H 18 152/93 H 98 05/13/21 15:52 36.8 C 85 18 118/69 96 05/13/21 15:29 100 H 05/13/21 13:40 97 H 20 98
[2021-05-14] MEDS: LEVALBUTEROL HCL 0.63 MG/3 ML NEB NEB SCH ×5 (01:50→20:02)
[2021-05-14] MEDS: TAPENTADOL HCL 50 MG TAB PO PRN ×2 (02:14→20:31)
[2021-05-14] MEDS: LEVOTHYROXINE SODIUM 100 MCG TABLET PO SCH (05:46)
[2021-05-14] MEDS: ACETYLCYSTEINE 10% INHAL SOLN 4 ML **DISPENSED BY RESP. INH SCH ×2 (07:14→20:02)
[2021-05-14] MEDS: ONDANSETRON INJ 2 MG/ML 2 ML VIAL IV PRN (08:17)
--- NOTE | 2021-05-14 08:28 | Hospitalist Progress Note ---
Date of Service May 14, 2021 Assessment & Plan (1) Severe persistent asthma with (acute) exacerbation: (2) Transaminitis: (3) Hypokalemia: Plan: 60 y/o female w/ hx of severe persistent asthma, CYNTHIA on CPAP, paroxysmal atrial tachycardia, HLD, hypothyroidism, allergic rhinitis, celiac disease and lactose intolerant, GERD with esophagitis, RLS, history of migraine, iron deficiency anemia who presents to ED secondary to shortness of breath and cough x8 days. Possible related to asthma exacerbation versus bronchitis Patient does not meet for SIRS/sepsis on admission Chest x-ray without acute consolidation, procalcitonin 0.33 Covid screen negative Patient with increasing shortness of breath and purulent productive cough without hypoxia On prednisone 40 mg daily and Levaquin 750 Blood culture no growth and sputum culture no growth Continue neb treatment, flutter valve and incentive spirometry continue dulera, singulair, nasonex Continue Mucomyst Continue chest PT Hypokalemia Low potassium on admission replete and monitor Continue monitor BMP Transaminitis Recent hospitalization secondary to acute colitis Elevated liver enzyme with ALT 112 and AST 432 AST and ALT trending down to normal MRCP showed Smoothly dilated common bile duct measuring 9 mm in this postcholecystectomy patient. There is mild prominence and possible beading of the intrahepatic bile ducts as well. No bile duct wall thickening is seen to suggest acute cholangitis. No choledocholithiasis is seen. The pancreatic duct is normal. GI recommended outpatient work up for primary sclerosing cholangitis with his palliative medicine physician Anemia Hemoglobin on admission 11 Hemoglobin stable Continue iron supplement No signs of active GI bleed Continue monitor CBC HISTORY OF PAROXYSMAL TACHYCARDIA Continue usual verapamil continue ASA CYNTHIA Cpap at home with nose piece, dose not tolerate face mask Hers is broke at home Continue 2L of O2 At HS RESTLESS LEG SYNDROME Continue ropinirole HYPOTHYROIDISM Continue levothyroxine Celiac disease/Gluten Free/Lactose Intolerance DVT ppx: SCD/TEDS due to recent LGIB FULL CODE Disposition Possible discharge tomorrow Admission and Anticipated Discharge Date Admission Date: May 10, 2021 Subjective Patient was seen and examined for follow-up shortness of breath and cough Sitting up in bed with no acute distress Patient said that her cough started to get looser, but continues to have hard time to bring it up She said the chest PT and Mucomyst seems to help Denies any chest pain, palpitation, dizziness, shortness of breath. Review of Systems Review of Systems: All systems reviewed & are unremarkable except as noted in Subjective Physical Exam Physical Exam: General- No acute distress, on RA He ad- atraumatic Ey es- PERRL, EOMI, E NT- oropharynx sawyer ar Neck- supple, n o JVD Lungs- +rhon chi, no wheezing H eart- regular rhyt hm; no murmur Abdo men- normal bowel sounds, soft, nont regina Extremities- no calf tenderne ss Neuro- alert, o riented x 3; PERRL , EOMI; no facial palsy; no dysarthr ia, moves extremit ies Skin- warm & d ry Results & Data Results & Data ([facility]) Vital Signs (Past 12 Hours) Vital Signs Temp Pulse Pulse Resp BP Pulse Ox 05/14/21 07:37 37.0 C 86 18 131/92 97 05/14/21 07:16 88 16 98 05/14/21 04:00 36.8 C 86 16 138/92 98 05/14/21 02:20 88 96 05/13/21 23:02 37.0 C 111 H 18 134/90 95 05/13/21 22:24 107 H Laboratory Results 05/14/21 05/14/21 Range/Units 08:13 08:13 Sodium 141 (136-145) mmol/L Potassium 3.0 L (3.5-5.1) mmol/L Chloride 110 H (98-107) mmol/L Carbon Dioxide 24 (21-32) mmol/L Anion Gap 7.0 (3-11) BUN 18 (7-18) mg/dl Creatinine 0.97 (0.6-1.2) mg/dl Est Cr Clr Drug Dosing 56.2 ml/min Est GFR ( Amer) 74.1 ml/min Est GFR (Non-Af Amer) 63.9 ml/min BUN/Creatinine Ratio 18.4 (10-20) Glucose 95 (70-99) mg/dl Calcium 9.7 (8.5-10.1) mg/dl Phosphorus Cancelled 3.1 (2.5-4.9) mg/dl Magnesium Cancelled 2.1 (1.8-2.4) mg/dl Medications Administered Current Inpatient Medications Acetaminophen (Acetaminophen 325 Mg Tab) 650 mg PO Q4H PRN PRN Reason: Pain or Fever Stop: 06/08/21 00:03 Acetylcysteine (Acetylcysteine 10% Inhal Soln 4 Ml Dispensed By Resp.) 5 ml INH BID JAYSHREE Stop: 06/09/21 21:44 Last Admin: 05/14/21 07:14 Dose: 5 ml Documented by: Al Hydrox/Mg Hydrox/Simethicone (Aluminum/Magnesium Susp 30 Ml Udc) 15 ml PO Q4H PRN PRN Reason: Dyspepsia Stop: 06/08/21 00:03 Amitriptyline HCl (Amitriptyline Hcl 25 Mg Tab) 75 mg PO HS [facility] Stop: 06/08/21 00:29 Last Admin: 05/13/21 20:34 Dose: 75 mg Documented by: Aspirin (Aspirin 81 Mg Ectab) 81 mg PO DAILY [facility] Stop: 06/08/21 08:59 Last Admin: 05/13/21 08:20 Dose: 81 mg Documented by: Ergocalciferol (Ergocalciferol 50,000 Units 1250 Mcg Cap) 50,000 units PO MoTh@0900 JAYSHREE Stop: 06/11/21 08:59 Last Admin: 05/12/21 08:18 Dose: 50,000 units Documented by: Famotidine (Famotidine 40 Mg Tablet) 40 mg PO DAILY [facility] Stop: 06/08/21 08:59 Last Admin: 05/13/21 08:21 Dose: 40 mg Documented by: Ferrous Sulfate (Ferrous Sulfate 325 Mg Tab) 325 mg PO QID JAYSHREE Stop: 06/08/21 00:29 Last Admin: 05/13/21 20:35 Dose: 325 mg Documented by: Fexofenadine HCl (Fexofenadine Hcl 180 Mg Tab) 180 mg PO DAILY JAYSHREE Stop: 06/08/21 08:59 Last Admin: 05/13/21 08:21 Dose: 180 mg Documented by: Fluticasone Propionate (Fluticasone Propionate Na Spr 16 Gm Btl) 2 sprays NA DAILY [facility]; Protocol Stop: 06/08/21 08:59 Last Admin: 05/13/21 08:22 Dose: 2 sprays Documented by: Fluticasone/Vilanterol (Fluticasone/Vilanterol 100/25mcg 14 Puffs/Inhaler) 1 puffs INH DAILY [facility]; Protocol Stop: 06/08/21 08:59 Last Admin: 05/13/21 08:22 Dose: 1 puffs Documented by: Guaifenesin/Codeine Phosphate (Guaifenesin/Codeine 200mg/20mg 10ml Udc) 10 ml PO Q6H PRN PRN Reason: Cough Stop: 06/08/21 00:03 Last Admin: 05/14/21 03:03 Dose: 10 ml Documented by: Hyoscyamine (Hyoscyamine Sulfate 0.375 Mg Tabcr) 0.375 mg PO QID PRN PRN Reason: abd pain Stop: 06/08/21 00:03 Levalbuterol HCl (Levalbuterol Hcl 0.63 Mg/3 Ml Neb) 0.63 mg NEB Q6R JAYSHREE Stop: 06/08/21 00:59 Last Admin: 05/14/21 07:14 Dose: 0.63 mg Documented by: Levofloxacin (Levofloxacin 750 Mg Tab) 750 mg PO QDD [facility]; Protocol Stop: 05/14/21 16:31 Last Admin: 05/13/21 16:53 Dose: 750 mg Documented by: Levothyroxine Sodium (Levothyroxine Sodium 100 Mcg Tablet) 100 mcg PO DAILY@0630 [facility] Stop: 06/08/21 06:29 Last Admin: 05/14/21 05:46 Dose: 100 mcg Documented by: Magnesium Hydroxide (Magnesium Hydroxide Susp 30 Ml Udc) 30 ml PO Q12H PRN PRN Reason: Constipation Stop: 06/08/21 00:03 Menthol (Cough Drop (Sugar Free) Chandrika 24 Chandrika/1 Box) 1 chandrika BUCCAL Q2H PRN PRN Reason: cough Stop: 06/08/21 00:03 Last Admin: 05/13/21 20:45 Dose: 1 chandrika Documented by: Montelukast Sodium (Montelukast Sodium 10 Mg Tablet) 10 mg PO HS [facility] Stop: 06/11/21 20:59 Last Admin: 05/13/21 20:36 Dose: 10 mg Documented by: Ondansetron HCl (Ondansetron Inj 2 Mg/Ml 2 Ml Vial) 4 mg IV Q6H PRN PRN Reason: Nausea Stop: 06/08/21 00:03 Last Admin: 05/14/21 08:17 Dose: 4 mg Documented by: Pantoprazole Sodium (Pantoprazole 40 Mg Tab) 40 mg PO BID [facility]; Protocol Stop: 06/08/21 08:59 Last Admin: 05/13/21 20:36 Dose: 40 mg Documented by: Polyethylene Glycol (Polyethylene (Miralax) 17 Gm Pack) 17 gm PO DAILY PRN PRN Reason: Constipation Stop: 06/08/21 00:03 Polyethylene Glycol (Polyethylene (Miralax) 17 Gm Pack) 17 gm PO QID [facility] Stop: 06/08/21 00:29 Last Admin: 05/13/21 20:37 Dose: 17 gm Documented by: Prednisone (Prednisone 20 Mg Tab) 40 mg PO DAILY [facility] Stop: 06/08/21 00:59 Last Admin: 05/13/21 08:20 Dose: 40 mg Documented by: Ropinirole HCl (Ropinirole Hcl 1 Mg Tablet) 1 mg PO HS [facility] Stop: 06/08/21 00:29 Last Admin: 05/13/21 20:37 Dose: 1 mg Documented by: Sucralfate (Sucralfate 1 Gm Tab) 1 gm PO QID [facility] Stop: 06/08/21 00:29 Last Admin: 05/13/21 20:38 Dose: 1 gm Documented by: Tapentadol (Tapentadol Hcl 50 Mg Tab) 100 mg PO QID PRN PRN Reason: Pain Stop: 05/23/21 00:03 Last Admin: 05/14/21 02:14 Dose: 100 mg Documented by: Topiramate (Topiramate 100 Mg Tab) 100 mg PO BID [facility] Stop: 06/08/21 00:29 Last Admin: 05/13/21 20:38 Dose: 100 mg Documented by: Verapamil HCl (Verapamil Hcl 40 Mg Tab) 80 mg PO BID [facility] Stop: 06/08/21 00:29 Last Admin: 05/13/21 20:39 Dose: 80 mg Documented by:
[2021-05-14 09:07] LABS: BUN Creatinine Ratio 18.4 (10-20); Calcium 9.7 mg/dl (8.5-10.1); Creatinine Clr Calc Pharmacy 56.2 ml/min; Est GFR (African American) 74.1 ml/min; Est GFR (Non-African American) 63.9 ml/min; Magnesium 2.1 mg/dl (1.8-2.4)
[2021-05-14 09:08] LABS: Phosphorus 3.1 mg/dl (2.5-4.9)
[2021-05-14] MEDS: FLUTICASONE PROPIONATE NA SPR 16 GM BTL SCH (09:20)
[2021-05-14] MEDS: FLUTICASONE/VILANTEROL 100/25MCG 14 PUFFS/INHALER INH SCH (09:21)
[2021-05-14] MEDS: FERROUS SULFATE 325 MG TAB PO SCH ×4 (09:21→20:27)
[2021-05-14] MEDS: PANTOprazole 40 MG TAB PO SCH ×2 (09:21→20:27)
[2021-05-14] MEDS: ASPIRIN 81 MG ECTAB PO SCH (09:22)
[2021-05-14] MEDS: TOPIRAMATE 100 MG TAB PO SCH ×2 (09:22→20:27)
[2021-05-14] MEDS: VERAPAMIL HCL 40 MG TAB PO SCH ×2 (09:22→20:27)
[2021-05-14] MEDS: SUCRALFATE 1 GM TAB PO SCH ×4 (09:22→20:27)
[2021-05-14] MEDS: POLYETHYLENE (MIRALAX) 17 GM PACK PO SCH ×4 (09:23→20:26)
[2021-05-14] MEDS: predniSONE 20 MG TAB PO SCH (09:23)
[2021-05-14] MEDS: FAMOTIDINE 40 MG TABLET PO SCH (09:23)
[2021-05-14] MEDS: FEXOFENADINE HCL 180 MG TAB PO SCH (09:23)
[2021-05-14] MEDS ORDERED: POTASSIUM CHLORIDE CRTAB 20 MEQ TABCR PO STA (12:07)
[2021-05-14] MEDS: levoFLOXacin 750 MG TAB PO SCH (16:17)
[2021-05-14] MEDS ORDERED: POTASSIUM CHLORIDE CRTAB 20 MEQ TABCR PO ONE (19:00)
[2021-05-14] MEDS: MONTELUKAST SODIUM 10 MG TABLET PO SCH (20:27)
[2021-05-14] MEDS: rOPINIRole HCL 1 MG TABLET PO SCH (20:27)
[2021-05-14] MEDS: AMITRIPTYLINE HCL 25 MG TAB PO SCH (20:28)
[2021-05-14] MEDS ORDERED: MoRPHine SULFATE 2 MG/ML CARP IV STA (22:45)
[2021-05-15] MEDS: LEVALBUTEROL HCL 0.63 MG/3 ML NEB NEB SCH ×3 (00:57→12:56)
[2021-05-15] MEDS: LEVOTHYROXINE SODIUM 100 MCG TABLET PO SCH (05:58)
[2021-05-15] MEDS: ACETYLCYSTEINE 10% INHAL SOLN 4 ML **DISPENSED BY RESP. INH SCH (07:38)
[2021-05-15] MEDS: TAPENTADOL HCL 50 MG TAB PO PRN ×2 (08:35→14:17)
[2021-05-15] MEDS: SUCRALFATE 1 GM TAB PO SCH ×2 (08:36→14:21)
[2021-05-15] MEDS: FERROUS SULFATE 325 MG TAB PO SCH ×2 (08:37→14:19)
[2021-05-15] MEDS: ERGOCALCIFEROL 50,000 UNITS 1250 MCG CAP PO SCH (08:37)
[2021-05-15] MEDS: VERAPAMIL HCL 40 MG TAB PO SCH (08:37)
[2021-05-15] MEDS: FAMOTIDINE 40 MG TABLET PO SCH (08:37)
[2021-05-15] MEDS: predniSONE 20 MG TAB PO SCH (08:38)
[2021-05-15] MEDS: ASPIRIN 81 MG ECTAB PO SCH (08:38)
[2021-05-15] MEDS: POLYETHYLENE (MIRALAX) 17 GM PACK PO SCH ×2 (08:39→14:20)
[2021-05-15] MEDS: FEXOFENADINE HCL 180 MG TAB PO SCH (08:39)
[2021-05-15] MEDS: PANTOprazole 40 MG TAB PO SCH (08:39)
[2021-05-15] MEDS: TOPIRAMATE 100 MG TAB PO SCH (08:40)
[2021-05-15] MEDS: FLUTICASONE PROPIONATE NA SPR 16 GM BTL SCH (08:41)
[2021-05-15] MEDS: FLUTICASONE/VILANTEROL 100/25MCG 14 PUFFS/INHALER INH SCH (08:42)
[2021-05-15 10:03] LABS: BUN Creatinine Ratio 21.5 (10-20); Blood Urea Nitrogen 18 mg/dl (7-18); Calcium 9.5 mg/dl (8.5-10.1); Carbon Dioxide 24 mmol/L (21-32); Chloride 110 mmol/L (98-107); Creatinine Clr Calc Pharmacy 64.1 ml/min; Est GFR (African American) 86.9 ml/min; Glucose 97 mg/dl (70-99); Magnesium 2.1 mg/dl (1.8-2.4); Phosphorus 3.1 mg/dl (2.5-4.9); Potassium 3.6 mmol/L (3.5-5.1); Sodium 140 mmol/L (136-145); Troponin I < 0.015 ng/ml (0-0.045)
--- NOTE | 2021-05-15 13:14 | Hospitalist Progress Note ---
Date of Service May 15, 2021 Assessment & Plan (1) Severe persistent asthma with (acute) exacerbation: (2) Transaminitis: (3) Hypokalemia: Plan: 60 y/o female w/ hx of severe persistent asthma, CYNTHIA on CPAP, paroxysmal atrial tachycardia, HLD, hypothyroidism, allergic rhinitis, celiac disease and lactose intolerant, GERD with esophagitis, RLS, history of migraine, iron deficiency anemia who presents to ED secondary to shortness of breath and cough x8 days. Possible related to asthma exacerbation versus bronchitis Patient does not meet for SIRS/sepsis on admission Chest x-ray without acute consolidation, procalcitonin 0.33 Covid screen negative Patient with increasing shortness of breath and purulent productive cough without hypoxia On prednisone 40 mg daily and Levaquin 750 (finished Abx course) Blood culture no growth and sputum culture no growth Continue neb treatment, flutter valve and incentive spirometry continue dulera, singulair, nasonex Continue Mucomyst Continue chest PT Patient is feeling much better, breathing better, even able to ambulate without increase shortness of breath Will follow up with PCP and pulmonology as outpatient Hypokalemia Low potassium on admission replete and monitor Continue monitor BMP Transaminitis Recent hospitalization secondary to acute colitis Elevated liver enzyme with ALT 112 and AST 432 AST and ALT trending down to normal MRCP showed Smoothly dilated common bile duct measuring 9 mm in this postcholecystectomy patient. There is mild prominence and possible beading of the intrahepatic bile ducts as well. No bile duct wall thickening is seen to suggest acute cholangitis. No choledocholithiasis is seen. The pancreatic duct is normal. 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 Anemia Hemoglobin on admission 11 Hemoglobin stable Continue iron supplement No signs of active GI bleed Continue monitor CBC HISTORY OF PAROXYSMAL TACHYCARDIA Continue usual verapamil continue ASA CYNTHIA Cpap at home with nose piece, dose not tolerate face mask Hers is broke at home Continue 2L of O2 At HS RESTLESS LEG SYNDROME Continue ropinirole HYPOTHYROIDISM Continue levothyroxine Celiac disease/Gluten Free/Lactose Intolerance DVT ppx: SCD/TEDS due to recent LGIB FULL CODE Disposition: Plan to DC today Admission and Anticipated Discharge Date Admission Date: May 10, 2021 Subjective Patient was seen and examined for follow-up of shortness of breath and cough Sitting up in bed in no acute distress Patient reports already feeling much better, breathing better and able to ambu late without much shortness of breath Denies any chest pain, palpitation, dizziness, shortness of breath. She is inquiring about going home Discussed close follow-up with PCP and pulmonology, which were already scheduled for her, also discussed need for CPAP Review of Systems Review of Systems: All systems reviewed & are unremarkable except as noted in Subjective Physical Exam Physical Exam: General- No acute distress, on RA He ad- atraumatic Ey es- PERRL, EOMI, E NT- oropharynx sawyer ar Neck- supple, n o JVD Lungs- +mild rhonchi (improved from previous exa m), no wheezing He art- regular rhyth m; no murmur Abdom en- normal bowel s ounds, soft, nonte nder Extremities- no calf tendernes s Neuro- alert, or iented x 3; PERRL, EOMI; no facial p alsy; no dysarthri a, moves extremiti es Skin- warm & dr y Results & Data Results & Data ([facility]) Vital Signs (Past 12 Hours) Vital Signs Temp Pulse Resp BP BP Pulse Ox 05/15/21 12:57 80 18 93 05/15/21 11:13 36.7 C 93 H 18 133/82 95 05/15/21 07:40 83 18 98 05/15/21 07:29 36.6 C 71 18 149/97 H 99 05/15/21 03:49 37.0 C 74 18 115/68 99 Laboratory Results 05/15/21 05/14/21 Range/Units 08:46 22:51 Sodium 140 (136-145) mmol/L Potassium 3.6 D (3.5-5.1) mmol/L Chloride 110 H (98-107) mmol/L Carbon Dioxide 24 (21-32) mmol/L Anion Gap 6.0 (3-11) BUN 18 (7-18) mg/dl Creatinine 0.85 (0.6-1.2) mg/dl Est Cr Clr Drug Dosing 64.1 ml/min Est GFR ( Amer) 86.9 ml/min Est GFR (Non-Af Amer) 75.0 ml/min BUN/Creatinine Ratio 21.5 H (10-20) Glucose 97 (70-99) mg/dl Calcium 9.5 (8.5-10.1) mg/dl Phosphorus 3.1 (2.5-4.9) mg/dl Magnesium 2.1 (1.8-2.4) mg/dl Troponin I < 0.015 < 0.015 (0-0.045) ng/ml Medications Administered Current Inpatient Medications Acetaminophen (Acetaminophen 325 Mg Tab) 650 mg PO Q4H PRN PRN Reason: Pain or Fever Stop: 06/08/21 00:03 Last Admin: 05/15/21 08:36 Dose: 650 mg Documented by: Acetylcysteine (Acetylcysteine 10% Inhal Soln 4 Ml Dispensed By Resp.) 5 ml INH BID JAYSHREE Stop: 06/09/21 21:44 Last Admin: 05/15/21 07:38 Dose: 5 ml Documented by: Al Hydrox/Mg Hydrox/Simethicone (Aluminum/Magnesium Susp 30 Ml Udc) 15 ml PO Q4H PRN PRN Reason: Dyspepsia Stop: 06/08/21 00:03 Amitriptyline HCl (Amitriptyline Hcl 25 Mg Tab) 75 mg PO HS JAYSHREE Stop: 06/08/21 00:29 Last Admin: 05/14/21 20:28 Dose: 75 mg Documented by: Aspirin (Aspirin 81 Mg Ectab) 81 mg PO DAILY JAYSHREE Stop: 06/08/21 08:59 Last Admin: 05/15/21 08:38 Dose: 81 mg Documented by: Ergocalciferol (Ergocalciferol 50,000 Units 1250 Mcg Cap) 50,000 units PO MoTh@0900 JAYSHREE Stop: 06/11/21 08:59 Last Admin: 05/15/21 08:37 Dose: 50,000 units Documented by: Famotidine (Famotidine 40 Mg Tablet) 40 mg PO DAILY JAYSHREE Stop: 06/08/21 08:59 Last Admin: 05/15/21 08:37 Dose: 40 mg Documented by: Ferrous Sulfate (Ferrous Sulfate 325 Mg Tab) 325 mg PO QID JAYSHREE Stop: 06/08/21 00:29 Last Admin: 05/15/21 08:37 Dose: 325 mg Documented by: Fexofenadine HCl (Fexofenadine Hcl 180 Mg Tab) 180 mg PO DAILY JAYSHREE Stop: 06/08/21 08:59 Last Admin: 05/15/21 08:39 Dose: 180 mg Documented by: Fluticasone Propionate (Fluticasone Propionate Na Spr 16 Gm Btl) 2 sprays NA DAILY [facility]; Protocol Stop: 06/08/21 08:59 Last Admin: 05/15/21 08:41 Dose: 2 sprays Documented by: Fluticasone/Vilanterol (Fluticasone/Vilanterol 100/25mcg 14 Puffs/Inhaler) 1 puffs INH DAILY [facility]; Protocol Stop: 06/08/21 08:59 Last Admin: 05/15/21 08:42 Dose: 1 puffs Documented by: Guaifenesin/Codeine Phosphate (Guaifenesin/Codeine 200mg/20mg 10ml Udc) 10 ml PO Q6H PRN PRN Reason: Cough Stop: 06/08/21 00:03 Last Admin: 05/15/21 06:32 Dose: 10 ml Documented by: Hyoscyamine (Hyoscyamine Sulfate 0.375 Mg Tabcr) 0.375 mg PO QID PRN PRN Reason: abd pain Stop: 06/08/21 00:03 Levalbuterol HCl (Levalbuterol Hcl 0.63 Mg/3 Ml Neb) 0.63 mg NEB Q6R [facility] Stop: 06/08/21 00:59 Last Admin: 05/15/21 12:56 Dose: 0.63 mg Documented by: Levothyroxine Sodium (Levothyroxine Sodium 100 Mcg Tablet) 100 mcg PO DAILY@0630 [facility] Stop: 06/08/21 06:29 Last Admin: 05/15/21 05:58 Dose: 100 mcg Documented by: Magnesium Hydroxide (Magnesium Hydroxide Susp 30 Ml Udc) 30 ml PO Q12H PRN PRN Reason: Constipation Stop: 06/08/21 00:03 Menthol (Cough Drop (Sugar Free) Chandrika 24 Chandrika/1 Box) 1 chandrika BUCCAL Q2H PRN PRN Reason: cough Stop: 06/08/21 00:03 Last Admin: 05/13/21 20:45 Dose: 1 chandrika Documented by: Montelukast Sodium (Montelukast Sodium 10 Mg Tablet) 10 mg PO HS [facility] Stop: 06/11/21 20:59 Last Admin: 05/14/21 20:27 Dose: 10 mg Documented by: Ondansetron HCl (Ondansetron Inj 2 Mg/Ml 2 Ml Vial) 4 mg IV Q6H PRN PRN Reason: Nausea Stop: 06/08/21 00:03 Last Admin: 05/14/21 08:17 Dose: 4 mg Documented by: Pantoprazole Sodium (Pantoprazole 40 Mg Tab) 40 mg PO BID [facility]; Protocol Stop: 06/08/21 08:59 Last Admin: 05/15/21 08:39 Dose: 40 mg Documented by: Polyethylene Glycol (Polyethylene (Miralax) 17 Gm Pack) 17 gm PO DAILY PRN PRN Reason: Constipation Stop: 06/08/21 00:03 Polyethylene Glycol (Polyethylene (Miralax) 17 Gm Pack) 17 gm PO QID [facility] Stop: 06/08/21 00:29 Last Admin: 05/15/21 08:39 Dose: Not Given Documented by: Prednisone (Prednisone 20 Mg Tab) 40 mg PO DAILY [facility] Stop: 06/08/21 00:59 Last Admin: 05/15/21 08:38 Dose: 40 mg Documented by: Ropinirole HCl (Ropinirole Hcl 1 Mg Tablet) 1 mg PO HS [facility] Stop: 06/08/21 00:29 Last Admin: 05/14/21 20:27 Dose: 1 mg Documented by: Sucralfate (Sucralfate 1 Gm Tab) 1 gm PO QID [facility] Stop: 06/08/21 00:29 Last Admin: 05/15/21 08:36 Dose: 1 gm Documented by: Tapentadol (Tapentadol Hcl 50 Mg Tab) 100 mg PO QID PRN PRN Reason: Pain Stop: 05/23/21 00:03 Last Admin: 05/15/21 08:35 Dose: 100 mg Documented by: Topiramate (Topiramate 100 Mg Tab) 100 mg PO BID [facility] Stop: 06/08/21 00:29 Last Admin: 05/15/21 08:40 Dose: 100 mg Documented by: Verapamil HCl (Verapamil Hcl 40 Mg Tab) 80 mg PO BID [facility] Stop: 06/08/21 00:29 Last Admin: 05/15/21 08:37 Dose: 80 mg Documented by:
[2021-05-15] MEDS ORDERED: POTASSIUM CHLORIDE CRTAB 20 MEQ TABCR PO STA (13:56)
--- NOTE | 2021-05-15 14:27 | Discharge Summary ---
Date of Service May 15, 2021 Admission HPI Per Admitting Provider This is a 60-year-old female who has significant past medical history of severe persistent asthma, CYNTHIA on CPAP, paroxysmal atrial tachycardia, HLD, hypothyroidism, allergic rhinitis, celiac disease and lactose intolerant, GERD with esophagitis, RLS, history of migraine, iron deficiency anemia who presents to ED secondary to shortness of breath and cough x8 days. Of significance patient recently hospitalized 04/06-04/11 secondary to weakness, nausea, vomiting and bloody diarrhea for 3 days. She was diagnosed with acute colitis. She did require 2 units of PRBC transfusion during admission. Endoscopy was deferred and recommended colonoscopy in 6 weeks. She was prescribed Flagyl for 10 days. She also had elevated liver enzymes and underwent MRCP which showed dilated common bile duct measuring 9 mm consistent with a postcholecystectomy but also maggy concern for possible PSC. GI recommends outpatient work-up for primary sclerosing cholangitis. Since discharge she had been doing well until developing respiratory symptoms over the past 8 days. She complains of a productive cough of purulent sputum and increasing shortness of breath with exertion. She further complains of fever and chills with a temperature max of 100.6. She is not vaccinated for Covid and has been around no known sick contacts. She denies any lightheadedness, dizziness, chest pain, shortness breath at rest, hemoptysis, palpitations, nausea, vomiting, abdominal pain, change in bowel or urinary habits. She admits to a bowel movement approximately every other day. She is currently on iron 4 times a day as well as MiraLAX 4 times a day. She has tried [id number] Delsym without relief. She further complains of generalized weakness, malaise and fatigue. At home she is prescribed Dulera and Combivent for her severe persistent asthma. She has been compliant with this. She previously had Xopenex as needed, but has run out of this. In ED patient remained hemodynamically stable and did not require any supplemental oxygen. Her chest x-ray was negative for acute consolidation. Her procalcitonin was detectable at 0.33. Her CMP was remarkable for potassium 3.2, AST 52, ALT 167 and alk phos 584. Her SARS-CoV-2 was negative. Her H&H was stable at 11.0 and 36.4. In ED she received potassium supplementation and started on oral Levaquin. Admission Exam Per Admitting Provider Constitutional: WD/WN, vitals as above, NAD, sitting up in bed, pleasant, conversing easily Head: Normocephalic, Atraumatic Eyes: PERRL, conjunctivae normal, anicteric sclerae ENMT: external ear and nose normal, oropharynx normal Neck: trachea midline, no thyromegaly normal visual inspection Respiratory: normal respiratory effort, lungs clear to auscultation with bilateral lower lobe rhonchi and expiratory wheezing with a prolonged expiratory phase, no rales. Normal insp/exp effort, no accessory muscle use Cardiovascular: RRR, no murmur, no edema Vessels: no JVD or carotid bruit Chest: normal inspection of chest Abdomen: normal bowel sounds, soft, nontender, no hepatosplenomegaly Musculoskeletal: no cyanosis or clubbing, extremities motor strength 5/5 Skin: no rashes, warm and dry normal turgor Neurologic: PERRL, EOMI, accommodation nl, no face palsy, no dysarthria CN's II-XI intact bilaterally and moves all extremities Psychiatric: A+Ox3, euthymic affect : deferred Principal Diagnosis Shortness of breath and cough secondary to asthma exacerbation versus bronchitis Discharge Exam General- No acute distress, on RA Head- atraumatic Eyes- PERRL, EOMI, ENT- oropharynx clear Neck- supple, no JVD Lungs- +mild rhonchi (improved from previous exam), no wheezing Heart- regular rhythm; no murmur Abdomen- normal bowel sounds, soft, nontender Extremities- no calf tenderness Neuro- alert, oriented x 3; PERRL, EOMI; no facial palsy; no dysarthria, moves extremities Skin- warm & dry Discharge Data Allergies Allergy/AdvReac Type Severity Reaction Status Date / Time bee venom protein (honey bee) Allergy Severe ANAPHYLAXIS Verified 05/08/21 18:35 cefaclor Allergy Severe CECLOR - Verified 05/08/21 18:35 SOB;RASH; UPSET STOMACH coconut Allergy Severe RASH; SOB Verified 05/08/21 18:35 iron Allergy Severe SOB,TACHY Verified 05/08/21 18:35 WITH IV IRON latex Allergy Severe Anaphylaxis Verified 05/08/21 18:35 Penicillins Allergy Severe Anaphylaxis Verified 05/08/21 18:35 Sulfa (Sulfonamide Allergy Severe Anaphylaxis Verified 05/08/21 18:35 Antibiotics) tetracycline Allergy Severe SOB;RASH; Verified 05/08/21 18:35 N/V lactose Allergy Mild RASH; Verified 05/08/21 18:35 BLOATING; DIARRHEA; VOMITING ROBER Inhibitors Allergy Unknown COUGH AND Verified 05/08/21 18:35 RASH egg Allergy Unknown RASH & Verified 05/08/21 18:35 Bloating Influenza Virus Vaccines Allergy Unknown rash and Verified 05/08/21 18:35 bloating Quinolones Allergy Unknown ALLERGY TO Verified 05/08/21 18:35 AVELOX ,CAN TAKE CIPRO OR LEVAQUIN W/O RXN gluten AdvReac Unknown CELIAC'S Verified 05/08/21 18:35 Consultations 05/08/21 17:36 ED Decision to Admit Stat Hospital Course (1) Severe persistent asthma with (acute) exacerbation: (2) Transaminitis: (3) Hypokalemia: 60 y/o female w/ hx of severe persistent asthma, CYNTHIA on CPAP, paroxysmal atrial tachycardia, HLD, hypothyroidism, allergic rhinitis, celiac disease and lactose intolerant, GERD with esophagitis, RLS, history of migraine, iron deficiency anemia who presents to ED secondary to shortness of breath and cough x8 days. Possible related to asthma exacerbation versus bronchitis Patient does not meet for SIRS/sepsis on admission Chest x-ray without acute consolidation, procalcitonin 0.33 Covid screen negative Patient with increasing shortness of breath and purulent productive cough without hypoxia On prednisone 40 mg daily and Levaquin 750 (finished Abx course) Blood culture no growth and sputum culture no growth Continue neb treatment, flutter valve and incentive spirometry continue dulera, singulair, nasonex Continue Mucomyst Continue chest PT Patient is feeling much better, breathing better, even able to ambulate without increase shortness of breath Will follow up with PCP and pulmonology as outpatient Hypokalemia Low potassium on admission replete and monitor Continue monitor BMP Transaminitis Recent hospitalization secondary to acute colitis Elevated liver enzyme with ALT 112 and AST 432 AST and ALT trending down to normal MRCP showed Smoothly dilated common bile duct measuring 9 mm in this postcholecystectomy patient. There is mild prominence and possible beading of the intrahepatic bile ducts as well. No bile duct wall thickening is seen to suggest acute cholangitis. No choledocholithiasis is seen. The pancreatic duct is normal. 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 Anemia Hemoglobin on admission 11 Hemoglobin stable Continue iron supplement No signs of active GI bleed Continue monitor CBC HISTORY OF PAROXYSMAL TACHYCARDIA Continue usual verapamil continue ASA CYNTHIA Cpap at home with nose piece, dose not tolerate face mask Hers is broke at home Continue 2L of O2 At HS RESTLESS LEG SYNDROME Continue ropinirole HYPOTHYROIDISM Continue levothyroxine Celiac disease/Gluten Free/Lactose Intolerance Disposition: Plan to DC today Total Time Total Time Spent Total Time Spent (In Minutes): 40 Discharge Plan Discharge Items Patient Disposition: Home - Self-Care Reason For Visit: SOB,COUGH,POSSIBLE PNEUMONIA Discharge Diagnosis: Shortness of breath and cough secondary to asthma exacerbation versus bronchitis Activity: Per Instructions section Non-emergency contact: Primary Care Provider and Regional Project Manager Call non-emergency contact if: you have any medication questions and your symptoms worsen Follow-up/Referrals: Christiano Muñoz MD [Primary Care Provider] - (Date & Time 05/19/2021 3:00 PM Provider Christiano Muñoz MD Department Family Medicine [facility] ) Marco A Palm MD [Outside Practitioners] - (Date & Time 05/21/2021 8:00 AM Provider Marco A Palm MD Department Pulmonary Medicine, [facility] ) Diet: Regular Addtl Attending Provider Instructions: Follow-up with your primary care doctor, the appointment was scheduled for you for May 19. Follow up with your life advisor, the appointment was scheduled for you for May 21. Continue prednisone taper as prescribed, 20 mg daily for next couple of days. Recommend taking guaifenesin as well for next several days. Recommend using your flutter valve. Your potassium level was on the lower side while in the hospital, recommend taking potassium supplement for next several days, and have your potassium level rechecked with your primary care doctor. Pending Studies at Discharge: No Stand-Alone Forms: [employer], Smoking Cessation Medications and DC Order Prescriptions: New prednisone 20 mg tablet 20 mg PO DAILY 3 Days Qty: 3 RF: 0 guaifenesin 600 mg tablet extended release 12hr 600 mg PO BID Qty: 10 RF: 0 potassium chloride 20 mEq tablet extended release 20 meq PO DAILY Qty: 7 RF: 0 Continued aspirin [Aspirin Low Dose] 81 mg Tablet,Delayed Release (Dr/Ec) 81 mg PO DAILY RF: 0 Combivent Respimat 20-100 mcg/actuation mist 1 puff INHALATION QID RF: 0 ondansetron 4 mg tablet,disintegrating 4 mg translingual TID PRN (Reason: Nausea) RF: 0 Nucynta 100 mg tablet 100 mg PO QID PRN (Reason: Pain) RF: 0 fexofenadine 180 mg Tablet 180 mg PO DAILY RF: 0 levothyroxine 100 mcg Tablet 100 mcg PO DAILY@0630 RF: 0 mometasone [Nasonex] 50 mcg/actuation [place],Non-Aerosol 2 spray INTRANASAL DAILY RF: 0 montelukast 10 mg Tablet 10 mg PO DAILY RF: 0 Dulera 200-5 mcg/actuation Hfa Aerosol Inhaler 2 puff INHALATION Q12H RF: 0 rabeprazole 20 mg Tablet,Delayed Release (Dr/Ec) 40 mg PO BID RF: 0 ropinirole 1 mg Tablet 1 mg PO HS RF: 0 amitriptyline 75 mg Tablet 75 mg PO HS RF: 0 cimetidine 400 mg Tablet 400 mg PO BID RF: 0 sucralfate [Carafate] 1 gram Tablet 1 g PO QID RF: 0 hyoscyamine sulfate 0.375 mg Tablet Extended Release 12 Hr 0.375 mg PO QID PRN (Reason: abd pain) RF: 0 ergocalciferol (vitamin D2) [Vitamin D2] 1,250 mcg (50,000 unit) Capsule 1,250 mcg PO MOTH RF: 0 polyethylene glycol 3350 [Miralax] 17 gram/dose Powder 17 g PO QID RF: 0 verapamil 80 mg Tablet 80 mg PO BID RF: 0 topiramate [Topamax] 100 mg Tablet 100 mg PO BID RF: 0 ferrous sulfate 324 mg (65 mg iron) Tablet,Delayed Release (Dr/Ec) 324 mg PO QID RF: 0 Discharge Orders: Discharge Order (Routine); Ordered 05/15/21 Ordered By: Fabrizio Sanches Admission Data Admit Date/Time: 05/10/21 11:58 Attending Provider: Fabrizio Sanches Admit Provider: Pepito Handley Primary Care Provider: Christiano Muñoz Other Providers: Pepito Handley
--- NOTE | 2021-05-15 22:59 | Electrocardiogram Report ---
Test Reason : Blood Pressure : / mmHG Vent. Rate : 095 BPM Atrial Rate : 095 BPM P-R Int : 146 ms QRS Dur : 076 ms QT Int : 348 ms P-R-T Axes : 054 000 053 degrees QTc Int : 437 ms Normal sinus rhythm Normal ECG When compared with ECG of 08-MAY-2021 14:52, Premature atrial complexes are no longer Present Confirmed by Vahid James ([id number]) on 05/15/2021 10:59:14 PM Referred By: REFERRED SELF Confirmed By:Vahid James
== END 2021-05-15 16:25 | disposition home or self-care (01) | DRG 202 ==
LOC: ED 14:48 → 2N 14:48 → SUATTDRO 05-10 11:58 → 2W 05-13 09:35

== ENCOUNTER 2021-08-03 18:06 | Inpatient (IN) ==
--- NOTE | 2021-08-03 18:17 | Emergency Department Note ---
Impression & Plan Acute exacerbation of chronic obstructive pulmonary disease, COVID-19, Pneumonia ED Provider Note NAME: SHAYY CARRILLO AGE: 61 SEX: F : 1960 ARRIVES VIA: Walk-In INFORMANT: Patient, ED PROVIDER(S): Burt Dawson MD Chief Complaint: Shortness of breath, cough, fever HPI: Patient was seen due to concern for chronic shortness of breath but with associated cough and fever. Patient states that she has had symptoms ever since she was released from the hospital back in May. The patient did complete course with a Z-All. The patient has had cough that is productive with yellow sputum. The patient had a fever of 101 earlier this week. Patient denies any new shortness of breath. Patient has mild headache which is global in nature and not radiating. No recent falls or trauma. The patient denies any bloody medications. The patient does take chronic chemo to keep liver and pancreatic cancer in remission. No prior history of DVT or PE. Patient is a non-smoker but does have a history of COPD. ROS: See HPI for pertinent positives and negatives. A total of 10 systems were reviewed and otherwise negative. Past medical history: See below Surgical history: See below Social history: See below Physical Exam: GENERAL: NAD, wearing glasses, wearing a mask, non-toxic. EYE EXAM: Normal conjunctiva. PERRL, no anisocoria and EOM's grossly intact w/o pain. NECK: Supple, no nuchal rigidity, no adenopathy, non-tender. No signs of meningismus. LUNGS: Coarse breath sounds bilaterally. Normal chest wall mechanics. HEART: NSR, no MRG. ABDOMEN: Abdomen soft, non-tender, normo-active bowel sounds, no masses, no rebound or guarding. BACK: No CVA TTP. SKIN: No rashes and no bruising. UPPER EXTREMITIES: Upper extremities are grossly normal. LOWER EXTREMITIES: Grossly normal, no edema. Negative Homans' sign bilaterally. NEURO EXAM: A&O x3, cranial nerves II-XII grossly intact, normal speech, moves all 4 extremities on command w/o issue. Differential diagnoses: Reactive airway disease, pneumonia, pneumothorax, COPD, CHF, infections, cardiac ischemia, pulmonary embolism, musculoskeletal, gastrointestinal, as well as other pathologies. Course: Patient was seen and evaluated the bedside. Full history physical exam was performed. EKG interpreted by me Normal sinus rhythm, rate of 82, normal intervals, normal axis, Q waves inferiorly. No obvious ST changes. No significant change from comparison EKG May 14, 2021. Imaging Studies: See Below Cardiac monitoring: An order was placed for continuous cardiac monitoring. The monitor shows a rate of 95 with sinus rhythm. MDM: Patient was seen due to concern for chronic shortness of breath with associated cough ongoing 2 months. Patient does have coarse breath sounds. Blood work was obtained along with an EKG troponin chest x-ray blood cultures. Patient was treated symptomatically with duo nebs steroids and mag. The patient was given IV fluids. Blood work shows a normal white count and H&H. Platelet count is u nremarkable. Kidney function unremarkable. Mild transaminitis but the patient has no upper abdominal pain. Flu negative. Chest x-ray is clear. Patient did receive a dose of Levaquin given the patient's comorbidities my concern for the possibility of pneumonia given the patient's productive cough history of COPD and coarse breath sounds. Patient is Covid positive. Patient is not vaccinated for COVID-19. I did speak the on-call hospitalist given the patient's high risk nature as the patient is on chronic chemotherapy positive for Covid and has productive cough. I did speak with the on-call hospitalist Dr. Johnson and the patient was admitted to the medicine service. Past Med/Surg History Medical History Adrenal cyst monitoring Anxiety Asthma, severe persistent Celiac disease Chronic anemia Chronic back pain Chronic obstructive pulmonary disease Colitis with rectal bleeding Degenerative disc disease Dehydration Dyslipidemia Gastroparesis GERD (gastroesophageal reflux disease) Heart disease Hx of sepsis ~2017 treated at [facility]. Hypertension Hypothyroidism no current medication -- TSH normal without meds. IBS (irritable bowel syndrome) CHARLES (iron deficiency anemia) ferrous sulfate QID. Kidney stones no surgery Mitral valve prolapse follows with Dr Aguirre MRSA (methicillin resistant Staphylococcus aureus) 1999 dx nose septum wound 2019 dx in lungs Narcolepsy NSVT (nonsustained ventricular tachycardia) Osteoarthritis Sleep apnea CPAP -- have not used in about a year (it broke and has not yet been fixed) Surgical History History of arthroscopic knee surgery left History of bilateral tubal ligation History of section x1 History of colonoscopy History of dilatation and curettage History of esophagogastroduodenoscopy (EGD) Hx of cardiac cath "2010 - normal coronaries" Hx of cholecystectomy S/P nasal surgery S/P surgery on nasal septum "collapsed septum" s/p post op infection that "ate away the septum" S/P GLENNY-BSO Family History Other No family history of adverse response to anesthesia Social History Smoking Status: Never smoker Second Hand Exposure: No; Hx Alcohol Use: No Hx Substance Use: No Preferred Language: Trinidadian Communication Ability: Effective Spooling Operator Required: No Beliefs That Will Affect Care: None Current Living Situation: Spouse and Family Current Living Situation Comment: and adult son Feels Safe at Home: Yes Assistive Devices: Glasses Immunizations: Not vaccinated for COVID-19 Allergies Allergies Allergy/AdvReac Type Severity Reaction Status Date / Time bee venom protein (honey bee) Allergy Severe ANAPHYLAXIS Verified 08/03/21 19:00 cefaclor Allergy Severe CECLOR - Verified 08/03/21 19:00 SOB;RASH; UPSET STOMACH coconut Allergy Severe RASH; SOB Verified 08/03/21 19:00 iron Allergy Severe SOB,TACHY Verified 08/03/21 19:00 WITH IV IRON latex Allergy Severe Anaphylaxis Verified 08/03/21 19:00 Penicillins Allergy Severe Anaphylaxis Verified 08/03/21 19:00 Sulfa (Sulfonamide Allergy Severe Anaphylaxis Verified 08/03/21 19:00 Antibiotics) tetracycline Allergy Severe SOB;RASH; Verified 08/03/21 19:00 N/V lactose Allergy Mild RASH; Verified 08/03/21 19:00 BLOATING; DIARRHEA; VOMITING ROBER Inhibitors Allergy Unknown COUGH AND Verified 08/03/21 19:00 RASH egg Allergy Unknown RASH & Verified 08/03/21 19:00 Bloating Influenza Virus Vaccines Allergy Unknown rash and Verified 08/03/21 19:00 bloating Quinolones Allergy Unknown ALLERGY TO Verified 08/03/21 19:00 AVELOX ,CAN TAKE CIPRO OR LEVAQUIN W/O RXN gluten AdvReac Unknown CELIAC'S Verified 08/03/21 19:00 Home Meds Home Medications Medication Instructions Recorded Confirmed amitriptyline 75 mg tablet 75 mg PO HS 12/24/20 08/03/21 cimetidine 400 mg tablet 400 mg PO BID 12/24/20 08/03/21 ergocalciferol (vitamin D2) 1,250 1,250 mcg PO 2XWK 12/24/20 08/03/21 mcg (50,000 unit) capsule (Vitamin D2) ferrous sulfate 324 mg (65 mg 324 mg PO QID 12/24/20 08/03/21 iron) tablet,delayed release hyoscyamine sulfate 0.375 mg 0.375 mg PO QID PRN 12/24/20 08/03/21 tablet,extended release,12 hr polyethylene glycol 3350 17 17 g PO QID 12/24/20 08/03/21 gram/dose oral powder (Miralax) rabeprazole 20 mg tablet,delayed 40 mg PO BID 12/24/20 08/03/21 release ropinirole 1 mg tablet 1 mg PO HS 12/24/20 08/03/21 sucralfate 1 gram tablet (Carafate) 1 g PO QID 12/24/20 08/03/21 topiramate 100 mg tablet (Topamax) 100 mg PO BID 12/24/20 08/03/21 verapamil 80 mg tablet 80 mg PO BID 12/24/20 08/03/21 aspirin 81 mg tablet,delayed 81 mg PO DAILY 04/06/21 08/03/21 release (Aspirin Low Dose) ipratropium 20 mcg-albuterol 100 1 puff INHALATION QID 04/06/21 08/03/21 mcg/actuation mist for inhalation (Combivent Respimat) fexofenadine 180 mg tablet 180 mg PO DAILY 05/08/21 08/03/21 levothyroxine 100 mcg tablet 100 mcg PO DAILY@0630 05/08/21 08/03/21 mometasone 50 mcg/actuation nasal 2 spray INTRANASAL DAILY 05/08/21 08/03/21 spray (Nasonex) mometasone-formoterol HFA 200 2 puff INHALATION Q12H 05/08/21 08/03/21 mcg-5 mcg/actuation aerosol inhaler (Dulera) montelukast 10 mg tablet 10 mg PO DAILY 05/08/21 08/03/21 ondansetron 4 mg disintegrating 4 mg TRANSLINGUAL TID PRN 05/08/21 08/03/21 tablet tapentadol 100 mg tablet (Nucynta) 100 mg PO QID PRN 05/08/21 08/03/21 Previous Rx's Medication Instructions Recorded guaifenesin 600 mg tablet, 600 mg PO BID #10 tab 05/15/21 extended release 12 hr potassium chloride 20 mEq 20 meq PO DAILY #7 tab 05/15/21 tablet,extended release Results & Data (ED) Vital Signs Vital Signs - 24 hr 08/03/21 18:06 08/03/21 18:10 08/03/21 19:24 Temperature 36.6 C Temperature Source Temporal Artery Scan Pulse Rate 100 H Pulse Rate [Apical] 92 H Respiratory Rate 18 12 Respiratory Effort / Characteristics Non-Labored Non-Labored Spontaneous Respiratory Depth Normal Normal Respiratory Pattern Regular Regular Blood Pressure 143/92 H Blood Pressure [Left Arm] 155/97 H Blood Pressure Mean 109 Blood Pressure Mean [Left Arm] 116 Blood Pressure Position Sitting Pulse Oximetry 96 97 Oxygen Delivery Method Room Air Room Air Room Air Oxygen Flow Rate 95 Sepsis Recent Fever Within 48 Hours Yes Sepsis New/Unexplained Change in Mental Status No Sepsis Action Taken by Nursing No Action Required 08/03/21 20:43 Temperature Temperature Source Pulse Rate 113 H Pulse Rate [Apical] Respiratory Rate Respiratory Effort / Characteristics Respiratory Depth Respiratory Pattern Blood Pressure Blood Pressure [Left Arm] Blood Pressure Mean Blood Pressure Mean [Left Arm] Blood Pressure Position Pulse Oximetry 94 Oxygen Delivery Method Room Air Oxygen Flow Rate Sepsis Recent Fever Within 48 Hours Sepsis New/Unexplained Change in Mental Status Sepsis Action Taken by Alf Medications Current Medication List: was personally reviewed by me Laboratory Data Attestation: I reviewed the patient's lab results. Result diagrams: 08/03/21 18:35 08/03/21 18:35 Lab Results 08/03/21 08/03/21 08/03/21 Range/Units 18:35 18:35 18:35 WBC 9.37 (4.8-10.8) K/uL RBC 4.97 (4.2-5.4) M/uL Hgb 13.8 (12.0-16.0) g/dL Hct 45.3 (37-47) % MCV 91.1 (80-100) fL MCH 27.8 (25-34) pg MCHC 30.5 L (32-36) g/dL RDW Std Deviation 51.8 H (36.4-46.3) fL RDW Coeff of Reginaldo 15.9 H (11.5-14.5) % Plt Count 362 (130-400) K/uL MPV 10.2 (7.4-10.4) fL Immature Gran % (Auto) 0.2 % Neut % (Auto) 79.5 % Lymph % (Auto) 15.6 % [place] % (Auto) 4.5 % Eos % (Auto) 0.0 % Baso % (Auto) 0.2 % Neut # (Auto) 7.45 H (1.4-6.5) K/uL Lymph # (Auto) 1.46 (1.2-3.4) K/uL [place] # (Auto) 0.42 (0.11-0.59) K/uL Eos # (Auto) 0.00 (0-0.5) K/uL Baso # (Auto) 0.02 (0-0.2) K/uL Immature Gran # (Auto) 0.02 (0.00-0.02) K/uL Sodium 144 (136-145) mmol/L Potassium 3.8 (3.5-5.1) mmol/L Chloride 109 H (98-107) mmol/L Carbon Dioxide 27 (21-32) mmol/L Anion Gap 8 (3-11) BUN 11 (6-23) mg/dl Creatinine 0.82 (0.6-1.2) mg/dl Est Cr Clr Drug Dosing 62.7 ml/min Est GFR ( Amer) 90.1 ml/min Est GFR (Non-Af Amer) 77.8 ml/min BUN/Creatinine Ratio 13.4 (10-20) Glucose 77 (70-99(Fasting)) mg/dl Lactate 1.2 (0.4-2.0) mmol/L Calcium 9.0 (8.5-10.1) mg/dl Magnesium 2.1 (1.7-2.4) mg/dl Total Bilirubin 0.3 (0.2-1.0) mg/dl AST 81 H (13-39) U/L ALT 53 H (7-52) U/L Alkaline Phosphatase 308 H (34-104) U/L Troponin I < 0.03 (0-0.04) ng/ml Total Protein 7.3 (6.0-8.3) gm/dl Albumin 3.9 (3.4-5.0) gm/dl Globulin 3.4 (2.5-4.0) gm/dl Albumin/Globulin Ratio 1.1 (0.9-2) Influ A Molecular Assay (Negative) Influ B Molecular Assay (Negative) SARS-CoV-2, RNA, NAAT (NEGATIVE) 08/03/21 08/03/21 Range/Units Unknown Unknown WBC (4.8-10.8) K/uL RBC (4.2-5.4) M/uL Hgb (12.0-16.0) g/dL Hct (37-47) % MCV (80-100) fL MCH (25-34) pg MCHC (32-36) g/dL RDW Std Deviation (36.4-46.3) fL RDW Coeff of Reginaldo (11.5-14.5) % Plt Count (130-400) K/uL MPV (7.4-10.4) fL Immature Gran % (Auto) % Neut % (Auto) % Lymph % (Auto) % [place] % (Auto) % Eos % (Auto) % Baso % (Auto) % Neut # (Auto) (1.4-6.5) K/uL Lymph # (Auto) (1.2-3.4) K/uL [place] # (Auto) (0.11-0.59) K/uL Eos # (Auto) (0-0.5) K/uL Baso # (Auto) (0-0.2) K/uL Immature Gran # (Auto) (0.00-0.02) K/uL Sodium (136-145) mmol/L Potassium (3.5-5.1) mmol/L Chloride (98-107) mmol/L Carbon Dioxide (21-32) mmol/L Anion Gap (3-11) BUN (6-23) mg/dl Creatinine (0.6-1.2) mg/dl Est Cr Clr Drug Dosing ml/min Est GFR ( Amer) ml/min Est GFR (Non-Af Amer) ml/min BUN/Creatinine Ratio (10-20) Glucose (70-99(Fasting)) mg/dl Lactate (0.4-2.0) mmol/L Calcium (8.5-10.1) mg/dl Magnesium (1.7-2.4) mg/dl Total Bilirubin (0.2-1.0) mg/dl AST (13-39) U/L ALT (7-52) U/L Alkaline Phosphatase (34-104) U/L Troponin I (0-0.04) ng/ml Total Protein (6.0-8.3) gm/dl Albumin (3.4-5.0) gm/dl Globulin (2.5-4.0) gm/dl Albumin/Globulin Ratio (0.9-2) Influ A Molecular Assay Negative (Negative) Influ B Molecular Assay Negative (Negative) SARS-CoV-2, RNA, NAAT POSITIVE A* (NEGATIVE) Administered Medications Lactated Ringer's (Lr) 1,000 mls @ 75 mls/hr IV .[id number] ONE Stop: 08/04/21 09:50 Last Admin: 08/03/21 20:45 Dose: 75 mls/hr Documented by: [id number] Clindamycin Phosphate 600 mg/ (Dextrose) 54 mls @ 100 mls/hr IV 2130 ONE Stop: 08/03/21 22:02 Last Admin: 08/03/21 21:45 Dose: 100 mls/hr Documented by: [id number] Topiramate (Topiramate 100 Mg Tab) 100 mg PO BID JAYSHREE Stop: 09/02/21 21:09 Last Admin: 08/03/21 21:37 Dose: 100 mg Documented by: [id number] Discontinued Medications Acetaminophen (Acetaminophen 500 Mg Tab) 1,000 mg PO NOW STA Stop: 08/03/21 20:43 Last Admin: 08/03/21 20:51 Dose: 1,000 mg Documented by: [id number] Albuterol (Albut/Ipratrop 3mg/0.5mg Neb 3 Ml Vial) 6 ml INH NOW STA Stop: 08/03/21 18:29 Last Admin: 08/03/21 19:36 Dose: 6 ml Documented by: [id number] Benzonatate (Benzonatate 100 Mg Capsule) 100 mg PO NOW ONE Stop: 08/03/21 20:57 Last Admin: 08/03/21 21:37 Dose: 100 mg Documented by: [id number] Magnesium Sulfate/Dextrose (Magnesium Sulfate / D5w) 1 gm in 100 mls @ 100 mls/hr IV NOW STA Stop: 08/03/21 19:28 Last Infusion: 08/03/21 21:29 Dose: 0 mls/hr Documented by: [id number] Admin: 08/03/21 19:38 Dose: 100 mls/hr Documented by: [id number] Ketorolac Tromethamine (Ketorolac Tromethamine 15 Mg/Ml Vial) 15 mg IV NOW ONE Stop: 08/03/21 20:56 Last Admin: 08/03/21 21:40 Dose: 15 mg Documented by: [id number] Levofloxacin (Levofloxacin 750 Mg Tab) 750 mg PO ONE ONE Stop: 08/03/21 18:29 Last Admin: 08/03/21 19:33 Dose: 750 mg Documented by: [id number] Methylprednisolone (Methylprednisolone 125 Mg/2 Ml Vial) 60 mg IV NOW STA Stop: 08/03/21 18:29 Last Admin: 08/03/21 19:28 Dose: 60 mg Documented by: [id number] Ondansetron HCl (Ondansetron Inj 2 Mg/Ml 2 Ml Vial) 4 mg IV NOW STA Stop: 08/03/21 20:43 Last Admin: 08/03/21 20:53 Dose: 4 mg Documented by: [id number] Potassium Chloride (Potassium Chloride Crtab 20 Meq Tabcr) 40 meq PO NOW STA Stop: 08/03/21 20:58 Last Admin: 08/03/21 21:37 Dose: 40 meq Documented by: [id number] Verapamil HCl (Verapamil Hcl 40 Mg Tab) 80 mg PO NOW STA Stop: 08/03/21 21:03 Last Admin: 08/03/21 21:45 Dose: Not Given Documented by: [id number] Imaging Data Radiologist's Impression: Chest X-Ray 08/03/21 18:28 XR chest 1V portable CLINICAL HISTORY: Dyspnea COMPARISON STUDY: Chest radiograph May 08, 2021. FINDINGS: Right internal jugular [id number] is in place. Incidental note is made of cholecystectomy clips. Lung volumes are normal. Lungs are clear. There is no pneumothorax or pleural effusion. Cardiac size is normal. Mediastinal contours are normal. There is no evidence for pulmonary edema. Old left seventh rib fracture. IMPRESSION: No acute cardiopulmonary findings. ACT 112: Negative or not required by law. Electronically signed by: Fernando Redding M.D. 08/03/2021 7:36 PM Discharge Plan Visit Data Chief Complaint: Shortness of Breath/Dyspnea Stated Complaint: sob, cough, fever, 100.6 ED Provider: Burt Dawson Discharge Problem: Acute exacerbation of chronic obstructive pulmonary disease, COVID-19, Pneumonia Patient Disposition: Admitted As Inpatient Forms Stand Alone Forms: [facility] Prescriptions Prescriptions: No Action aspirin [Aspirin Low Dose] 81 mg Tablet,Delayed Release (Dr/Ec) 81 mg PO DAILY RF: 0 Combivent Respimat 20-100 mcg/actuation mist 1 puff INHALATION QID RF: 0 ondansetron 4 mg tablet,disintegrating 4 mg translingual TID PRN (Reason: Nausea) RF: 0 Nucynta 100 mg tablet 100 mg PO QID PRN (Reason: Pain) RF: 0 fexofenadine 180 mg Tablet 180 mg PO DAILY RF: 0 levothyroxine 100 mcg Tablet 100 mcg PO DAILY@0630 RF: 0 mometasone [Nasonex] 50 mcg/actuation [place],Non-Aerosol 2 spray INTRANASAL DAILY RF: 0 montelukast 10 mg Tablet 10 mg PO DAILY RF: 0 Dulera 200-5 mcg/actuation Hfa Aerosol Inhaler 2 puff INHALATION Q12H RF: 0 guaifenesin 600 mg tablet extended release 12hr 600 mg PO BID Qty: 10 RF: 0 potassium chloride 20 mEq tablet extended release 20 meq PO DAILY Qty: 7 RF: 0 rabeprazole 20 mg Tablet,Delayed Release (Dr/Ec) 40 mg PO BID RF: 0 ropinirole 1 mg Tablet 1 mg PO HS RF: 0 amitriptyline 75 mg Tablet 75 mg PO HS RF: 0 cimetidine 400 mg Tablet 400 mg PO BID RF: 0 sucralfate [Carafate] 1 gram Tablet 1 g PO QID RF: 0 hyoscyamine sulfate 0.375 mg Tablet Extended Release 12 Hr 0.375 mg PO QID PRN (Reason: abd pain) RF: 0 ergocalciferol (vitamin D2) [Vitamin D2] 1,250 mcg (50,000 unit) Capsule 1,250 mcg PO 2XWK RF: 0 polyethylene glycol 3350 [Miralax] 17 gram/dose Powder 17 g PO QID RF: 0 verapamil 80 mg Tablet 80 mg PO BID RF: 0 topiramate [Topamax] 100 mg Tablet 100 mg PO BID RF: 0 ferrous sulfate 324 mg (65 mg iron) Tablet,Delayed Release (Dr/Ec) 324 mg PO QID RF: 0 Referrals Referrals: Christiano Muñoz MD [Primary Care Provider] -
[2021-08-03] MEDS ORDERED: ALBUT/IPRATROP 3MG/0.5MG NEB 3 ML VIAL INH STA (18:28)
[2021-08-03] MEDS ORDERED: methylPREDNISolone 125 MG/2 ML VIAL IV STA (18:28)
[2021-08-03] MEDS ORDERED: levoFLOXacin 750 MG TAB PO ONE (18:28)
[2021-08-03] MEDS ORDERED: MAGNESIUM SULFATE / D5W 1 GM/100 ML BAG IV STA (18:29)
[2021-08-03 18:53] LABS: Basophils # (auto) 0.02 K/uL (0-0.2); Basophils % (auto) 0.2 %; Hematocrit (blood only) 45.3 % (37-47); Hemoglobin 13.8 g/dL (12.0-16.0); Immature Granulocytes # (auto) 0.02 K/uL (0.00-0.02); Immature Granulocytes % (auto) 0.2 %; Lymphocytes # (auto) 1.46 K/uL (1.2-3.4); Lymphocytes % (auto) 15.6 %; Mean Corpuscular Hemoglobin 27.8 pg (25-34); Mean Corpuscular Hgb Conc 30.5 g/dL (32-36); Mean Corpuscular Volume 91.1 fL (80-100); Mean Platelet Volume 10.2 fL (7.4-10.4); Monocytes # (auto) 0.42 K/uL (0.11-0.59); Monocytes % (auto) 4.5 %; Neutrophils # (auto) 7.45 K/uL (1.4-6.5); Neutrophils % (auto) 79.5 %; Platelet Count 362 K/uL (130-400); RDW Coefficient of Variation 15.9 % (11.5-14.5); RDW Standard Deviation 51.8 fL (36.4-46.3); Red Blood Count 4.97 M/uL (4.2-5.4); White Blood Count 9.37 K/uL (4.8-10.8)
[2021-08-03 19:07] LABS: Alanine Aminotransferase 53 U/L (7-52); Albumin Globulin Ratio 1.1 (0.9-2); Albumin Level 3.9 gm/dl (3.4-5.0); Alkaline Phosphatase 308 U/L (34-104); Anion Gap 8 (3-11); Aspartate Aminotransferase 81 U/L (13-39); BUN Creatinine Ratio 13.4 (10-20); Bilirubin,Total 0.3 mg/dl (0.2-1.0); Blood Urea Nitrogen 11 mg/dl (6-23); Carbon Dioxide 27 mmol/L (21-32); Chloride 109 mmol/L (98-107); Creatinine Clr Calc Pharmacy 62.7 ml/min; Est GFR (African American) 90.1 ml/min; Est GFR (Non-African American) 77.8 ml/min; Globulin 3.4 gm/dl (2.5-4.0); Glucose 77 mg/dl (70-99(Fasting)); Magnesium 2.1 mg/dl (1.7-2.4); Potassium 3.8 mmol/L (3.5-5.1); Sodium 144 mmol/L (136-145); Total Protein 7.3 gm/dl (6.0-8.3)
[2021-08-03 19:23] LABS: Troponin I < 0.03 ng/ml (0-0.04)
--- NOTE | 2021-08-03 19:38 | XRay Report ---
XR chest 1V portable CLINICAL HISTORY: Dyspnea COMPARISON STUDY: Chest radiograph May 08, 2021. FINDINGS: Right internal jugular [id number] is in place. Incidental note is made of cholecystectom y clips. Lung volumes are normal. Lungs are clear. There is no pneumothorax or pleural effusion. Card iac size is normal. Mediastinal contours are normal. There is no evidence for pulmonary edema. Old le ft seventh rib fracture. IMPRESSION: No acute cardiopulmonary findings. ACT 112: Negative or not required by law. Electronically signed by: Fernando Redding M.D. 08/03/2021 7:36 PM
[2021-08-03] MEDS ORDERED: LACTATED RINGER'S 1,000 ML IV ONE (20:31)
[2021-08-03] MEDS ORDERED: ONDANSETRON INJ 2 MG/ML 2 ML VIAL IV STA (20:42)
[2021-08-03] MEDS ORDERED: ACETAMINOPHEN 500 MG TAB PO STA (20:42)
[2021-08-03] MEDS ORDERED: KETOROLAC TROMETHAMINE 15 MG/ML VIAL IV ONE (20:55)
[2021-08-03] MEDS ORDERED: BENZONATATE 100 MG CAPSULE PO ONE (20:56)
[2021-08-03] MEDS ORDERED: POTASSIUM CHLORIDE CRTAB 20 MEQ TABCR PO STA (20:57)
--- NOTE | 2021-08-03 21:00 | History & Physical Report ---
Date of Service August 03, 2021 Assessment & Plan (1) Acute exacerbation of chronic obstructive pulmonary disease: Plan: hx asthma/COPD as per records Secondary to severe COVID-19 pneumonia (O2 sats less than 94 on room air at the ER at one point) Possible aspiration pneumonia as contributory factor paroxysmal atrial tachycardia, patient NSR, on verapamil GERD, stable hypothyroidism, euthyroid as of recent TSH Abnormal LFTs, patient yet to see GI outpatient for possible work-up for sclerosing cholangitis. Medical telemetry Decadron for severe COVID-19 pneumonia. MDI RTC Clindamycin for possible aspiration pneumonitis Aspiration precautions, swallow eval Pulmonary consult if without improvement in symptoms. DVT prophylaxis per Lovenox subcu Full code Text document was generated using [employer] voice recognition software. It may contain grammatical or spelling errors. Kindly contact undersigned for clarification of any documentation item in question. History of Present Illness Chief Complaint: Worsening cough, shortness of breath Primary Care Provider: Christiano Muñoz MD History obtained from patient and records. Medical history significant for Medical history is significant for asthma/COPD/CYNTHIA on CPAP, history of idiopathic cardiac arrest, paroxysmal atrial tachycardia, celiac disease, GERD, irritable bowel syndrome, hypothyroidism, history MRSA. Last confinement May 2021 for asthma exacerbation. Patient noted to have transaminitis during confinement GI recommended outpatient work-up for possible primary sclerosing cholangitis. Persistent junky cough symptoms and wheezing since discharge from the hospital 2 months ago. GERD symptoms controlled as per patient. 6 weeks ago, patient PCP prescribed azithromycin and prednisone course for bronchitis symptoms. Outpatient Pulmonology referral scheduled for September,. Worsening symptoms the last few days. Junky cough symptoms with pleuritic chest pain and worsening shortness of breath as per patient. No known recent COVID-19 contacts. Patient has not received COVID-19 vaccination because of her allergies. Admits to coughing symptoms with meals/water intake. Achy migraine headache. Worsening of chronic abdominal pain. Patient received Solu-Medrol, neb treatment and Levaquin at the ER. Lowest O2 sats at the ER 93 on room air. MEDICAL HISTORY: As above. SURGICAL HISTORY: TAHBSO, cholecystectomy, appendectomy, ankle surgery, knee surgery, nasal reconstruction, sinus surgery, finger tendon sheath surgery, FAMILY HISTORY: Family history of unknown. Patient is adopted. PERSONAL/SOCIAL HISTORY: Nonsmoker. No chronic intake of inatke of ETOH. 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 Allergies Allergy/AdvReac Type Severity Reaction Status Date / Time bee venom protein (honey bee) Allergy Severe ANAPHYLAXIS Verified 08/03/21 19:00 cefaclor Allergy Severe CECLOR - Verified 08/03/21 19:00 SOB;RASH; UPSET STOMACH coconut Allergy Severe RASH; SOB Verified 08/03/21 19:00 iron Allergy Severe SOB,TACHY Verified 08/03/21 19:00 WITH IV IRON latex Allergy Severe Anaphylaxis Verified 08/03/21 19:00 Penicillins Allergy Severe Anaphylaxis Verified 08/03/21 19:00 Sulfa (Sulfonamide Allergy Severe Anaphylaxis Verified 08/03/21 19:00 Antibiotics) tetracycline Allergy Severe SOB;RASH; Verified 08/03/21 19:00 N/V lactose Allergy Mild RASH; Verified 08/03/21 19:00 BLOATING; DIARRHEA; VOMITING ROBER Inhibitors Allergy Unknown COUGH AND Verified 08/03/21 19:00 RASH egg Allergy Unknown RASH & Verified 08/03/21 19:00 Bloating Influenza Virus Vaccines Allergy Unknown rash and Verified 08/03/21 19:00 bloating Quinolones Allergy Unknown ALLERGY TO Verified 08/03/21 19:00 AVELOX ,CAN TAKE CIPRO OR LEVAQUIN W/O RXN gluten AdvReac Unknown CELIAC'S Verified 08/03/21 19:00 Home Medications Medication Instructions Recorded Confirmed Type amitriptyline 75 mg tablet 75 mg PO HS 12/24/20 08/03/21 History cimetidine 400 mg tablet 400 mg PO BID 12/24/20 08/03/21 History ergocalciferol (vitamin D2) 1,250 1,250 mcg PO 2XWK 12/24/20 08/03/21 History mcg (50,000 unit) capsule (Vitamin D2) ferrous sulfate 324 mg (65 mg 324 mg PO QID 12/24/20 08/03/21 History iron) tablet,delayed release hyoscyamine sulfate 0.375 mg 0.375 mg PO QID PRN 12/24/20 08/03/21 History tablet,extended release,12 hr polyethylene glycol 3350 17 17 g PO QID 12/24/20 08/03/21 History gram/dose oral powder (Miralax) rabeprazole 20 mg tablet,delayed 40 mg PO BID 12/24/20 08/03/21 History release ropinirole 1 mg tablet 1 mg PO HS 12/24/20 08/03/21 History sucralfate 1 gram tablet (Carafate) 1 g PO QID 12/24/20 08/03/21 History topiramate 100 mg tablet (Topamax) 100 mg PO BID 12/24/20 08/03/21 History verapamil 80 mg tablet 80 mg PO BID 12/24/20 08/03/21 History aspirin 81 mg tablet,delayed 81 mg PO DAILY 04/06/21 08/03/21 History release (Aspirin Low Dose) ipratropium 20 mcg-albuterol 100 1 puff INHALATION QID 04/06/21 08/03/21 History mcg/actuation mist for inhalation (Combivent Respimat) fexofenadine 180 mg tablet 180 mg PO DAILY 05/08/21 08/03/21 History levothyroxine 100 mcg tablet 100 mcg PO DAILY@0630 05/08/21 08/03/21 History mometasone 50 mcg/actuation nasal 2 spray INTRANASAL DAILY 05/08/21 08/03/21 History spray (Nasonex) mometasone-formoterol HFA 200 2 puff INHALATION Q12H 05/08/21 08/03/21 History mcg-5 mcg/actuation aerosol inhaler (Dulera) montelukast 10 mg tablet 10 mg PO DAILY 05/08/21 08/03/21 History ondansetron 4 mg disintegrating 4 mg TRANSLINGUAL TID PRN 05/08/21 08/03/21 History tablet tapentadol 100 mg tablet (Nucynta) 100 mg PO QID PRN 05/08/21 08/03/21 History guaifenesin 600 mg tablet, 600 mg PO BID #10 tab 05/15/21 08/03/21 Rx extended release 12 hr potassium chloride 20 mEq 20 meq PO DAILY #7 tab 05/15/21 08/03/21 Rx tablet,extended release Past Med/Surg History Medical History Adrenal cyst monitoring Anxiety Asthma, severe persistent Celiac disease Chronic anemia Chronic back pain Chronic obstructive pulmonary disease Colitis with rectal bleeding Degenerative disc disease Dehydration Dyslipidemia Gastroparesis GERD (gastroesophageal reflux disease) Heart disease Hx of sepsis ~2017 treated at [facility]. Hypertension Hypothyroidism no current medication -- TSH normal without meds. IBS (irritable bowel syndrome) CHARLES (iron deficiency anemia) ferrous sulfate QID. Kidney stones no surgery Mitral valve prolapse follows with Dr Aguirre MRSA (methicillin resistant Staphylococcus aureus) 1999 dx nose septum wound 2019 dx in lungs Narcolepsy NSVT (nonsustained ventricular tachycardia) Osteoarthritis Sleep apnea CPAP -- have not used in about a year (it broke and has not yet been fixed) Surgical History History of arthroscopic knee surgery left History of bilateral tubal ligation History of section x1 History of colonoscopy History of dilatation and curettage History of esophagogastroduodenoscopy (EGD) Hx of cardiac cath "2009 - normal coronaries" Hx of cholecystectomy S/P nasal surgery S/P surgery on nasal septum "collapsed septum" s/p post op infection that "ate away the septum" S/P GLENNY-BSO Family History Other No family history of adverse response to anesthesia Social History Smoking Status: Never smoker Second Hand Exposure: No; Do You Dip or Chew Tobacco: No; Hx Alcohol Use: No Hx Substance Use: No Preferred Language: Frisian Communication Ability: Effective Choral Teacher Required: No Beliefs That Will Affect Care: None Current Living Situation: Spouse and Family Current Living Situation Comment: and adult son Other Information That Helps Us Care for You: No Feels Safe at Home: Yes Safety Concerns: Feels Safe At This Time Assistive Devices: Denture - Upper, Denture - Lower, Glasses and Oxygen - at Night Review of Systems Review of Systems: As per HPI, all 10 systems reviewed, all other ROS negative Physical Exam Physical Exam: GENERAL: Comfortable, no respiratory distress SKIN: Normal color, warm HEENT: [place] palpebral conjunctivae, no ptosis, dry buccal mucosa NECK : Supple, no tenderness CHEST : Decreased breath sounds, expiratory wheezes, no tenderness HEART : Tachycardic, no obvious murmurs ABDOMEN: Some distention, right-sided abdominal tenderness EXTREMITIES : No LE swelling/tenderness, no other conspicuous deformities noted NEUROLOGIC : Coherent, no facial asymmetry, no other gross focality Results & Data Results & Data ([facility]) Vital Signs (Past 12 Hours) Vital Signs Temp Pulse Pulse Resp BP BP Pulse Ox 08/03/21 20:43 113 H 94 08/03/21 19:24 92 H 12 155/97 H 97 08/03/21 18:10 36.6 C 100 H 18 143/92 H 96 Laboratory Results Laboratory Results WBC 9.37 K/uL (4.8-10.8) 08/03/21 18:35 RBC 4.97 M/uL (4.2-5.4) 08/03/21 18:35 Hgb 13.8 g/dL (12.0-16.0) 08/03/21 18:35 Hct 45.3 % (37-47) 08/03/21 18:35 MCV 91.1 fL (80-100) 08/03/21 18:35 MCH 27.8 pg (25-34) 08/03/21 18:35 MCHC 30.5 g/dL (32-36) L 08/03/21 18:35 RDW Std Deviation 51.8 fL (36.4-46.3) H 08/03/21 18:35 RDW Coeff of Reginaldo 15.9 % (11.5-14.5) H 08/03/21 18:35 Plt Count 362 K/uL (130-400) 08/03/21 18:35 MPV 10.2 fL (7.4-10.4) 08/03/21 18:35 Immature Gran % (Auto) 0.2 % 08/03/21 18:35 Neut % (Auto) 79.5 % 08/03/21 18:35 Lymph % (Auto) 15.6 % 08/03/21 18:35 Schley % (Auto) 4.5 % 08/03/21 18:35 Eos % (Auto) 0.0 % 08/03/21 18:35 Baso % (Auto) 0.2 % 08/03/21 18:35 Neut # (Auto) 7.45 K/uL (1.4-6.5) H 08/03/21 18:35 Lymph # (Auto) 1.46 K/uL (1.2-3.4) 08/03/21 18:35 Schley # (Auto) 0.42 K/uL (0.11-0.59) 08/03/21 18:35 Eos # (Auto) 0.00 K/uL (0-0.5) 08/03/21 18:35 Baso # (Auto) 0.02 K/uL (0-0.2) 08/03/21 18:35 Immature Gran # (Auto) 0.02 K/uL (0.00-0.02) 08/03/21 18:35 Sodium 144 mmol/L (136-145) 08/03/21 18:35 Potassium 3.8 mmol/L (3.5-5.1) 08/03/21 18:35 Chloride 109 mmol/L (98-107) H 08/03/21 18:35 Carbon Dioxide 27 mmol/L (21-32) 08/03/21 18:35 Anion Gap 8 (3-11) 08/03/21 18:35 BUN 11 mg/dl (6-23) 08/03/21 18:35 Creatinine 0.82 mg/dl (0.6-1.2) 08/03/21 18:35 Est Cr Clr Drug Dosing 62.7 ml/min 08/03/21 18:35 Est GFR ( Amer) 90.1 ml/min 08/03/21 18:35 Est GFR (Non-Af Amer) 77.8 ml/min 08/03/21 18:35 BUN/Creatinine Ratio 13.4 (10-20) 08/03/21 18:35 Glucose 77 mg/dl (70-99(Fasting)) 08/03/21 18:35 Lactate 1.2 mmol/L (0.4-2.0) 08/03/21 18:35 Calcium 9.0 mg/dl (8.5-10.1) 08/03/21 18:35 Magnesium 2.1 mg/dl (1.7-2.4) 08/03/21 18:35 Total Bilirubin 0.3 mg/dl (0.2-1.0) 08/03/21 18:35 AST 81 U/L (13-39) H 08/03/21 18:35 ALT 53 U/L (7-52) H 08/03/21 18:35 Alkaline Phosphatase 308 U/L (34-104) H 08/03/21 18:35 Troponin I < 0.03 ng/ml (0-0.04) 08/03/21 18:35 Total Protein 7.3 gm/dl (6.0-8.3) 08/03/21 18:35 Albumin 3.9 gm/dl (3.4-5.0) 08/03/21 18:35 Globulin 3.4 gm/dl (2.5-4.0) 08/03/21 18:35 Albumin/Globulin Ratio 1.1 (0.9-2) 08/03/21 18:35 Impressions Chest X-Ray 08/03/21 18:28 XR chest 1V portable CLINICAL HISTORY: Dyspnea COMPARISON STUDY: Chest radiograph May 08, 2021. FINDINGS: Right internal jugular [id number] is in place. Incidental note is made of cholecystectomy clips. Lung volumes are normal. Lungs are clear. There is no pneumothorax or pleural effusion. Cardiac size is normal. Mediastinal contours are normal. There is no evidence for pulmonary edema. Old left seventh rib fracture. IMPRESSION: No acute cardiopulmonary findings. ACT 112: Negative or not required by law. Electronically signed by: Fernando Redding M.D. 08/03/2021 7:[address] chest initial read: Patchybilateral ground-glass infiltrates are present, possiblyviral pneumonia. Some nodular branching opacities in the right lower lobe mayrepresent mucus plugging. No pleural effusion or pneumothorax. No thoracic aortic aneurysmor dissection. Enlarged central pulmonaryarteries suggesting pulmonaryarterial hypertension. No pulmonaryembolism. Normal heart size. No pericardial effusion. No acute osseous findings. Cholecystectomy CT abdomen pelvis initial read: Cholecystectomy. Enlarged common bile duct, likelyreservoir effect. Liver, spleen, pancreas, right adrenal gland are unremarkable. There is a 2.4 cmbenign left adrenal adenoma (better demonstrated on concurrentlyperformed CTA chest). Symmetric renal enhancement. No hydronephrosis. Subcentimeter cortical cysts in both kidneys. No aortic aneurysm. Normal appendix. No bowel obstruction or inflammation. Hysterectomy. Normal urinarybladder. No free fluid or free air. O steopenia. Degenerative disc disease L4-L5 and L5-S1. No acute osseous findings EKG as per my interpretation: Rate 80, NSR, LAD, LAFB, no ischemia
[2021-08-03] MEDS ORDERED: VERAPAMIL HCL 40 MG TAB PO STA (21:02)
[2021-08-03 21:21] LABS: Influenza A virus by PCR Negative (Negative); Influenza B virus by PCR Negative (Negative)
[2021-08-03] MEDS ORDERED: CLINDAMYCIN 600 MG in DEXTROSE 5% 50 ML IV ONE (21:30)
[2021-08-03] MEDS: TOPIRAMATE 100 MG TAB PO SCH (21:37)
[2021-08-03] MEDS ORDERED: LORazepam 0.25 MG/0.5 ML VIAL IV STA (21:50)
[2021-08-03] MEDS ORDERED: OPTIRAY 320 125ml IV ONE (22:05)
[2021-08-03] MEDS ORDERED: [UNRECOGNIZED DRUG - REMARK] PRN (23:48)
[2021-08-04] MEDS ORDERED: PROMETHAZINE HCL 12.5 MG in SODIUM CHLORIDE 0.9% 50 ML IV PRN (00:13)
[2021-08-04] MEDS ORDERED: LEVALBUTEROL 1.25MG/0.5ML NEB INH SCH (01:00)
[2021-08-04] MEDS ORDERED: XOPENEX/ATROVENT 1.25mg/0.5MG NEB COMBO NEB SCH (01:00)
[2021-08-04] MEDS ORDERED: IPRATROPIUM BROMIDE NEB SOLN 0.02% 2.5 ML VIAL INH SCH (01:00)
[2021-08-04] MEDS: FLUTICASONE/VILANTEROL 200/25MCG 14 PUFFS/INHALER INH SCH ×2 (01:13→13:45)
[2021-08-04] MEDS ORDERED: VERAPAMIL HCL 2.5 MG/ML 2 ML VIAL IV ONE ×2 (02:22→02:25)
[2021-08-04 03:32] LABS: Appearance Urine Clear (Clear); Bilirubin Urine Negative (Negative); Blood Urine Negative (Negative); Color Urine Yellow; Glucose Urine UA Negative (Negative); Ketones Urine Negative (Negative); Leukocyte Esterase Urine Negative (Negative); Nitrite Urine Negative (Negative); Protein Urine Negative (Negative); Specific Gravity Urine > 1.045 (1.000-1.030); Urobilinogen Urine Negative (Negative)
[2021-08-04] MEDS: oxyCODONE HCL IR 5 MG TAB (IMMEDIATE RELEASE) PO PRN (03:41)
[2021-08-04] MEDS: dexAMETHasone 6 MG in SYRINGE 0 ML IV SCH (04:03)
[2021-08-04] MEDS: LEVOTHYROXINE SODIUM 100 MCG TABLET PO SCH (06:23)
[2021-08-04 06:31] LABS: Hematocrit (blood only) 38.3 % (37-47); Hemoglobin 11.6 g/dL (12.0-16.0); Immature Granulocytes # (auto) 0.01 K/uL (0.00-0.02); Immature Granulocytes % (auto) 0.1 %; Lymphocytes # (auto) 0.42 K/uL (1.2-3.4); Lymphocytes % (auto) 5.3 %; Mean Corpuscular Hemoglobin 27.2 pg (25-34); Mean Corpuscular Hgb Conc 30.3 g/dL (32-36); Mean Corpuscular Volume 89.9 fL (80-100); Mean Platelet Volume 10.4 fL (7.4-10.4); Monocytes # (auto) 0.04 K/uL (0.11-0.59); Monocytes % (auto) 0.5 %; Neutrophils # (auto) 7.52 K/uL (1.4-6.5); Neutrophils % (auto) 94.1 %; Platelet Count 290 K/uL (130-400); RDW Coefficient of Variation 15.9 % (11.5-14.5); RDW Standard Deviation 51.8 fL (36.4-46.3); Red Blood Count 4.26 M/uL (4.2-5.4); White Blood Count 7.99 K/uL (4.8-10.8)
[2021-08-04 07:00] LABS: Albumin Globulin Ratio 1.2 (0.9-2); Albumin Level 3.4 gm/dl (3.4-5.0); BUN Creatinine Ratio 14.3 (10-20); Bilirubin,Total 0.3 mg/dl (0.2-1.0); Calcium 8.6 mg/dl (8.5-10.1); Creatinine Clr Calc Pharmacy 67.6 ml/min; Est GFR (African American) 97.3 ml/min; Est GFR (Non-African American) 83.9 ml/min; Globulin 2.8 gm/dl (2.5-4.0); Potassium 4.2 mmol/L (3.5-5.1); Total Protein 6.2 gm/dl (6.0-8.3)
--- NOTE | 2021-08-04 07:34 | CT Scan Report ---
CT ANGIOGRAM OF THE CHEST; CT SCAN OF THE ABDOMEN AND PELVIS WITH IV CONTRAST CLINICAL HISTORY: Atypical chest pain. Dyspnea. Generalized abdominal pain. COMPARISON STUDY: Chest x-ray dated 08/03/2021. Chest CT dated 02/08/2012 and 08/29/2008. Abdominal CT d ated 04/06/2021. TECHNIQUE: Following the IV administration of 119 of Optiray 320, CT angiogram of the chest is perfor med from the upper abdomen to the thoracic inlet utilizing the pulmonary embolus protocol. Images are reviewed in the axial, sagittal, coronal planes. 3-D MIPS images are created and assessed. Subsequen tly, CT scan of the abdomen and pelvis was performed from the lung bases to the proximal femora. Imag es are reviewed in the axial, sagittal, and coronal planes. IV contrast was administered without comp lication. A dose lowering technique was utilized adhering to the principles of ALARA. The Examination s are modestly degraded by motion artifact. CT DOSE: 546.88 mGy.cm FINDINGS: CHEST: Thyroid: Imaged portions of the thyroid gland are normal in size and attenuation. Thoracic aorta: The thoracic aorta is normal in caliber and demonstrates standard 3-vessel arch anato my. No dissection is seen. Pulmonary vasculature: The pulmonary trunk is normal in caliber. There are no filling defects identif ied in the main, lobar, or segmental pulmonary arteries to indicate pulmonary embolus. Heart: A right internal jugular central venous infusion port is in place. The heart is normal in size and without pericardial effusion. Lungs and pleural spaces: There is mild patchy airspace consolidation at both lung bases, right great er than left with associated peribronchial thickening and mucous plugging. Minimal patchy consolidati on is seen in the left upper lobe. No pleural effusion is identified. The trachea and central airways are patent. Mediastinum: There is no mediastinal lymphadenopathy. Addie: Clear. Axillae: There is no axillary lymphadenopathy. Bony thorax: The skeletal structures are osteopenic. No lytic or blastic lesions are identified. Ther e are healed left-sided rib fractures. ABDOMEN AND PELVIS: Liver: The contrast-enhanced liver is normal in size, contour, and attenuation. There is mild intrahe patic biliary ductal dilatation. The hepatic veins and portal veins are patent. Gallbladder: Surgically absent noting clips in the gallbladder fossa. Spleen: Normal in size and attenuation. Pancreas: Atrophic and grossly unremarkable. Adrenal glands: The 2.7 x 1.9 cm heterogeneous nodule is again seen arising from the inferior aspect of the left adrenal gland on image #135. This has been present dating back to 2008 and was previously shown to represent a fat-containing adenoma. The right adrenal gland is normal in appearance. Kidneys: The contrast enhanced kidneys are normal in size and without hydronephrosis. The kidneys enh ance symmetrically. Scattered subcentimeter cortical hypodensities likely represent cysts but are too small for definitive characterization. Abdominal vasculature: The abdominal aorta is normal in course and caliber noting mild atheroscleroti c calcification. Bowel: There is rectosigmoid fecal retention and moderate constipation. No bowel obstruction is ident ified. The appendix is well-visualized and normal. Peritoneum: There is no intraperitoneal free air or abdominal ascites. Lymphadenopathy: None. Pelvic viscera: The bladder is normal as visualized. The uterus is surgically absent. No adnexal lesi on is seen. Skeletal structures: The skeletal structures are osteopenic. There is mild lumbosacral spondylosis. N o lytic or blastic lesions are seen. There is avascular necrosis of the femoral heads, left greater t krishnan right. IMPRESSION: 1. There is no evidence of pulmonary embolus in the main, lobar, or segmental pulmonary arteries. 2. Patchy airspace consolidation is seen at both lung bases, right greater than left. Correlate clini maurilio for evidence of pneumonia/aspiration pneumonitis. 3. No acute infectious or inflammatory findings are identified in the abdomen or pelvis. 4. Rectosigmoid fecal retention and moderate constipation. 5. Avascular necrosis of the femoral heads. 6. Additional findings as above. ACT 112: Negative or not required by law. Electronically signed by: Demetrius Bruce M.D. 08/04/2021 7:32 AM
[2021-08-04] MEDS: LEVALBUTEROL TARTRATE 15 GM HFA.AER.AD INH SCH ×2 (08:10→11:40)
[2021-08-04] MEDS: IPRATROPIUM BROMIDE HFA INHALER INH SCH ×2 (08:11→11:42)
[2021-08-04] MEDS ORDERED: predniSONE 20 MG TAB PO SCH (09:00)
[2021-08-04] MEDS ORDERED: dexAMETHasone 6 MG in SYRINGE 0 ML IV SCH (09:00)
[2021-08-04] MEDS ORDERED: [UNRECOGNIZED DRUG - REMARK] SCH (09:00)
[2021-08-04] MEDS ORDERED: dexAMETHasone 1 MG TAB PO SCH (09:00)
--- NOTE | 2021-08-04 09:24 | Electrocardiogram Report ---
Test Reason : Blood Pressure : / mmHG Vent. Rate : 082 BPM Atrial Rate : 082 BPM P-R Int : 140 ms QRS Dur : 072 ms QT Int : 362 ms P-R-T Axes : 047 -14 031 degrees QTc Int : 422 ms Normal sinus rhythm Normal ECG When compared with ECG of 14-MAY-2021 23:15, No significant change was found Confirmed by Allen Greenberg ([id number]) on 08/04/2021 9:23:50 AM Referred By: REFERRED SELF Confirmed By:Allen Greenberg
[2021-08-04] MEDS: SUCRALFATE 1 GM TAB PO SCH ×4 (09:42→21:12)
[2021-08-04] MEDS: ASPIRIN 81 MG ECTAB PO SCH (09:43)
[2021-08-04] MEDS: CLINDAMYCIN HCL 150 MG CAP PO SCH ×3 (09:43→21:10)
[2021-08-04] MEDS: FAMOTIDINE 20 MG TAB PO SCH ×2 (09:44→21:10)
[2021-08-04] MEDS: ENOXAPARIN INJ 30 MG/0.3 ML SYR SQ SCH (09:44)
[2021-08-04] MEDS: guaiFENesin 600 MG TABCR PO SCH ×2 (09:45→21:11)
[2021-08-04] MEDS: PANTOprazole 40 MG TAB PO SCH ×2 (09:45→21:12)
[2021-08-04] MEDS: FERROUS SULFATE 325 MG TAB PO SCH ×4 (09:45→21:11)
[2021-08-04] MEDS: FLUTICASONE PROPIONATE NA SPR 16 GM BTL SCH (09:45)
[2021-08-04] MEDS: MONTELUKAST SODIUM 10 MG TABLET PO SCH (09:46)
[2021-08-04] MEDS: FEXOFENADINE HCL 180 MG TAB PO SCH (09:46)
[2021-08-04] MEDS: POTASSIUM CHLORIDE CRTAB 20 MEQ TABCR PO SCH (09:46)
[2021-08-04] MEDS: POLYETHYLENE (MIRALAX) 17 GM PACK PO SCH ×4 (09:46→21:12)
[2021-08-04] MEDS: VERAPAMIL HCL 40 MG TAB PO SCH ×2 (09:47→21:13)
[2021-08-04] MEDS: ACETAMINOPHEN 325 MG TAB PO PRN (09:54)
[2021-08-04] MEDS: TOPIRAMATE 100 MG TAB PO SCH ×2 (11:04→21:13)
[2021-08-04] MEDS ORDERED: LEVALBUTEROL TARTRATE 15 GM HFA.AER.AD INH PRN (13:06)
[2021-08-04] MEDS: TAPENTADOL HCL 50 MG TAB PO PRN (13:46)
--- NOTE | 2021-08-04 16:57 | Hospitalist Progress Note ---
Date of Service August 04, 2021 Assessment & Plan (1) Severe persistent asthma with (acute) exacerbation: Plan: 60-year-old female who has significant past medical history of severe persistent asthma, CYNTHIA on CPAP, paroxysmal atrial tachycardia, HLD, hypothyroidism, allergic rhinitis, celiac disease and lactose intolerant, GERD with esophagitis, RLS, history of migraine, iron deficiency anemia who presents to ED secondary to shortness of breath Possible related to COVID 19 Pt is unvaccinated CTA chest showed no evidence of pulmonary embolus in the main, lobar, or segmental pulmonary arteries. . Patchy airspace consolidation is seen at both lung bases, right greater than left. Continue dexamethasone 6mg IV Does not meet the criteria for Remdesivir due to onset duration and pt saturated above 93% Continue clindamycin for possible aspiration Continue respiratory inaler treatment Continue neb treatment, flutter valve and incentive spirometry Continue monitor closely P Transaminitis Elevated liver enzyme with AST 81 and ALT 53 AST trending down to 51 and ALT 48 Continue monitor LFT Anemia Hemoglobin on admission 13.8 Hemoglobin s11.6 today Continue iron supplement No signs of active GI bleed Continue monitor CBC HISTORY OF PAROXYSMAL TACHYCARDIA Continue usual verapamil continue ASA CYNTHIA Cpap at home with nose piece, dose not tolerate face mask Hers is broke at home Continue 2L of O2 At HS RESTLESS LEG SYNDROME Continue ropinirole HYPOTHYROIDISM Continue levothyroxine Celiac disease/Gluten Free/Lactose Intolerance DVT ppx:Lovenox FULL CODE Disposition Will discharge once medically stable Admission and Anticipated Discharge Date Admission Date: August 04, 2021 Subjective Pt was seen and examined for follow up of SOB Lying in bed with no acute distress Pt said that her breathing feels a little better today She saturated well on RA Denies any chest pain, palpitation, dizziness and SOB Review of Systems Review of Systems: All systems reviewed & are unremarkable except as noted in Subjective Physical Exam Physical Exam: General- No acute distress Head- at raumatic Eyes- PER RL, EOMI, ENT- mayito pharynx clear Neck - supple, no JVD L ungs- +coarse BS H eart- regular rhyt hm; no murmur Abdo men- normal bowel sounds, soft, nont regina Extremities- no calf tenderne ss Neuro- alert, o riented x 3; PERRL , EOMI; no facial palsy; no dysarthr ia Skin- warm & dr y Results & Data Results & Data ([facility]) Vital Signs (Past 12 Hours) Vital Signs Temp Pulse Resp BP Pulse Ox 08/04/21 15:27 36.6 C 95 H 20 122/79 96 08/04/21 11:40 82 16 99 08/04/21 11:23 36.7 C 82 20 122/75 93 08/04/21 08:11 36.8 C 87 18 115/74 94
[2021-08-04] MEDS: AMITRIPTYLINE HCL 25 MG TAB PO SCH (21:09)
[2021-08-04] MEDS: rOPINIRole HCL 1 MG TABLET PO SCH (21:12)
[2021-08-05] MEDS: LEVOTHYROXINE SODIUM 100 MCG TABLET PO SCH (05:57)
[2021-08-05] MEDS: ACETAMINOPHEN 325 MG TAB PO PRN (08:05)
[2021-08-05] MEDS: SUCRALFATE 1 GM TAB PO SCH ×4 (08:08→21:07)
[2021-08-05] MEDS: FERROUS SULFATE 325 MG TAB PO SCH ×4 (08:49→21:06)
[2021-08-05] MEDS: VERAPAMIL HCL 40 MG TAB PO SCH ×2 (08:50→21:07)
[2021-08-05] MEDS: ASPIRIN 81 MG ECTAB PO SCH (08:50)
[2021-08-05] MEDS: FEXOFENADINE HCL 180 MG TAB PO SCH (08:51)
[2021-08-05] MEDS: MONTELUKAST SODIUM 10 MG TABLET PO SCH (08:51)
[2021-08-05] MEDS: POTASSIUM CHLORIDE CRTAB 20 MEQ TABCR PO SCH (08:51)
[2021-08-05] MEDS: FAMOTIDINE 20 MG TAB PO SCH ×2 (08:52→21:06)
[2021-08-05] MEDS: POLYETHYLENE (MIRALAX) 17 GM PACK PO SCH ×4 (08:52→21:02)
[2021-08-05] MEDS: PANTOprazole 40 MG TAB PO SCH ×2 (08:52→21:07)
[2021-08-05] MEDS: TOPIRAMATE 100 MG TAB PO SCH ×2 (08:52→21:07)
[2021-08-05] MEDS: CLINDAMYCIN HCL 150 MG CAP PO SCH ×3 (08:53→21:02)
[2021-08-05] MEDS: guaiFENesin 600 MG TABCR PO SCH ×2 (08:53→21:06)
[2021-08-05] MEDS: ENOXAPARIN INJ 30 MG/0.3 ML SYR SQ SCH (08:54)
[2021-08-05] MEDS: dexAMETHasone 6 MG in SYRINGE 0 ML IV SCH (08:56)
[2021-08-05] MEDS: FLUTICASONE/VILANTEROL 200/25MCG 14 PUFFS/INHALER INH SCH (08:57)
[2021-08-05] MEDS: FLUTICASONE PROPIONATE NA SPR 16 GM BTL SCH (08:57)
[2021-08-05] MEDS: TAPENTADOL HCL 50 MG TAB PO PRN (09:37)
[2021-08-05 10:06] LABS: Albumin Globulin Ratio 1.3 (0.9-2); Albumin Level 3.3 gm/dl (3.4-5.0); BUN Creatinine Ratio 16.9 (10-20); Bilirubin,Total 0.3 mg/dl (0.2-1.0); Creatinine Clr Calc Pharmacy 64.9 ml/min; Est GFR (African American) 88.8 ml/min; Est GFR (Non-African American) 76.6 ml/min; Globulin 2.6 gm/dl (2.5-4.0); Total Protein 5.9 gm/dl (6.0-8.3)
--- NOTE | 2021-08-05 11:41 | Electrocardiogram Report ---
Test Reason : Blood Pressure : / mmHG Vent. Rate : 089 BPM Atrial Rate : 089 BPM P-R Int : 156 ms QRS Dur : 064 ms QT Int : 336 ms P-R-T Axes : 062 -08 038 degrees QTc Int : 408 ms Normal sinus rhythm Normal ECG When compared with ECG of 03-AUG-2021 19:36, No significant change was found Confirmed by Allen Greenberg ([id number]) on 08/05/2021 11:40:43 AM Referred By: REFERRED SELF Confirmed By:Allen Greenberg
--- NOTE | 2021-08-05 20:56 | Hospitalist Progress Note ---
Date of Service August 05, 2021 Assessment & Plan (1) Severe persistent asthma with (acute) exacerbation: Plan: 60-year-old female who has significant past medical history of severe persistent asthma, CYNTHIA on CPAP, paroxysmal atrial tachycardia, HLD, hypothyroidism, allergic rhinitis, celiac disease and lactose intolerant, GERD with esophagitis, RLS, history of migraine, iron deficiency anemia who presents to ED secondary to shortness of breath Possible related to COVID 19 Pt is unvaccinated CTA chest showed no evidence of pulmonary embolus in the main, lobar, or segmental pulmonary arteries. . Patchy airspace consolidation is seen at both lung bases, right greater than left. Continue dexamethasone 6mg IV Does not meet the criteria for Remdesivir due to onset duration and pt saturated above 93% Continue clindamycin for possible aspiration Continue respiratory ihnaler treatment Continue neb treatment, flutter valve and incentive spirometry Continue monitor closely Transaminitis Elevated liver enzyme with AST 81 and ALT 53 LFT trending down with AST to 21 and ALT 30 Continue monitor LFT Resolved Anemia Hemoglobin on admission 13.8 Hemoglobin 11.6 today Continue iron supplement No signs of active GI bleed Continue monitor CBC HISTORY OF PAROXYSMAL TACHYCARDIA Continue usual verapamil continue ASA CYNTHIA Cpap at home with nose piece, dose not tolerate face mask Hers is broke at home Continue 2L of O2 At HS RESTLESS LEG SYNDROME Continue ropinirole HYPOTHYROIDISM Continue levothyroxine Celiac disease/Gluten Free/Lactose Intolerance DVT ppx:Lovenox FULL CODE Disposition Will discharge once medically stable Admission and Anticipated Discharge Date Admission Date: August 04, 2021 Subjective Pt was seen and examined for follow up of SOB Lying in bed with no acute distress Pt said that she continue to have SOB with exertion She said that she is having a hard time to bring the phlegm up She had a brief episode of Vtach on telemonitor She said that during the episode Vtach she had palpitation that last about 2-3 minutes Denies any chest pain, palpitation, dizziness and SOB Review of Systems Review of Systems: All systems reviewed & are unremarkable except as noted in Subjective Physical Exam Physical Exam: General- No acute distress Head- at raumatic Eyes- PER RL, EOMI, ENT- mayito pharynx clear Neck - supple, no JVD L ungs- +coarse BS H eart- regular rhyt hm; no murmur Abdo men- normal bowel sounds, soft, nont regina Extremities- no calf tenderne ss Neuro- alert, o riented x 3; PERRL , EOMI; no facial palsy; no dysarthr ia Skin- warm & dr y Results & Data Results & Data ([facility]) Vital Signs (Past 12 Hours) Vital Signs Temp Pulse Pulse Resp BP Pulse Ox 08/05/21 18:55 36.3 C L 76 22 134/81 99 08/05/21 15:21 36.5 C 68 16 121/79 97 08/05/21 15:08 69 08/05/21 10:18 104 H 18 127/80 99
[2021-08-05] MEDS: AMITRIPTYLINE HCL 25 MG TAB PO SCH (21:06)
[2021-08-05] MEDS: rOPINIRole HCL 1 MG TABLET PO SCH (21:07)
[2021-08-06] MEDS ORDERED: NITROGLYCERIN SL 0.4 MG/TAB TAB SL STA (01:07)
[2021-08-06] MEDS: ACETAMINOPHEN 325 MG TAB PO PRN ×2 (01:33→13:14)
[2021-08-06 01:50] LABS: Hematocrit (blood only) 37.9 % (37-47); Hemoglobin 11.8 g/dL (12.0-16.0); Immature Granulocytes # (auto) 0.02 K/uL (0.00-0.02); Immature Granulocytes % (auto) 0.2 %; Lymphocytes # (auto) 1.05 K/uL (1.2-3.4); Lymphocytes % (auto) 8.3 %; Mean Corpuscular Hemoglobin 27.7 pg (25-34); Mean Corpuscular Hgb Conc 31.1 g/dL (32-36); Mean Platelet Volume 10.2 fL (7.4-10.4); Neutrophils # (auto) 11.07 K/uL (1.4-6.5); Neutrophils % (auto) 87.5 %; Platelet Count 308 K/uL (130-400); RDW Standard Deviation 51.2 fL (36.4-46.3); Red Blood Count 4.26 M/uL (4.2-5.4); White Blood Count 12.64 K/uL (4.8-10.8)
[2021-08-06] MEDS: TAPENTADOL HCL 50 MG TAB PO PRN ×2 (01:56→13:55)
[2021-08-06 03:15] LABS: Alanine Aminotransferase 32 U/L (7-52); Albumin Globulin Ratio 1.2 (0.9-2); Albumin Level 3.3 gm/dl (3.4-5.0); Alkaline Phosphatase 197 U/L (34-104); Anion Gap 8 (3-11); Aspartate Aminotransferase 21 U/L (13-39); BUN Creatinine Ratio 23.2 (10-20); Bilirubin,Total 0.3 mg/dl (0.2-1.0); Blood Urea Nitrogen 19 mg/dl (6-23); Calcium 9.2 mg/dl (8.5-10.1); Carbon Dioxide 19 mmol/L (21-32); Chloride 112 mmol/L (98-107); Creatinine Clr Calc Pharmacy 65.6 ml/min; Est GFR (African American) 90.1 ml/min; Est GFR (Non-African American) 77.8 ml/min; Globulin 2.8 gm/dl (2.5-4.0); Glucose 103 mg/dl (70-99(Fasting)); Magnesium 1.9 mg/dl (1.7-2.4); Potassium 3.7 mmol/L (3.5-5.1); Sodium 139 mmol/L (136-145); Total Protein 6.1 gm/dl (6.0-8.3); Troponin I < 0.03 ng/ml (0-0.04)
[2021-08-06 03:40] LABS: Partial Thromboplastin Ratio 0.9; Partial Thromboplastin Time 22.5 Seconds (21.0-31.0)
[2021-08-06] MEDS: BENZONATATE 100 MG CAPSULE PO PRN ×2 (03:59→17:00)
[2021-08-06] MEDS ORDERED: POTASSIUM CHLORIDE CRTAB 20 MEQ TABCR PO STA (04:19)
[2021-08-06] MEDS ORDERED: LACTATED RINGER'S 1,000 ML IV ONE (04:21)
[2021-08-06] MEDS ORDERED: MAGNESIUM SULFATE / D5W 1 GM/100 ML BAG IV ONE (04:30)
[2021-08-06] MEDS: guaiFENesin SUGAR FREE 200 MG/10 ML UDC PO PRN ×2 (05:15→22:31)
[2021-08-06] MEDS ORDERED: CLINDAMYCIN CONSULT ACTIVE PRN (05:16)
[2021-08-06] MEDS: LEVOTHYROXINE SODIUM 100 MCG TABLET PO SCH (05:16)
[2021-08-06] MEDS: VERAPAMIL HCL 40 MG TAB PO SCH ×2 (05:27→20:38)
[2021-08-06] MEDS ORDERED: CLINDAMYCIN 600 MG in DEXTROSE 5% 50 ML IV SCH (06:00)
[2021-08-06] MEDS: SUCRALFATE 1 GM TAB PO SCH ×4 (08:32→20:37)
[2021-08-06] MEDS: FLUTICASONE/VILANTEROL 200/25MCG 14 PUFFS/INHALER INH SCH (09:32)
[2021-08-06] MEDS: guaiFENesin 600 MG TABCR PO SCH ×2 (09:33→20:37)
[2021-08-06] MEDS: FAMOTIDINE 20 MG TAB PO SCH ×2 (09:33→20:38)
[2021-08-06] MEDS: dexAMETHasone 6 MG in SYRINGE 0 ML IV SCH (09:34)
[2021-08-06] MEDS: FERROUS SULFATE 325 MG TAB PO SCH ×4 (09:34→20:37)
[2021-08-06] MEDS: ADVANCED PROBIOTIC 1250 MG CAPSULE PO SCH ×3 (09:35→17:01)
[2021-08-06] MEDS: PANTOprazole 40 MG TAB PO SCH ×2 (09:35→20:37)
[2021-08-06] MEDS: FEXOFENADINE HCL 180 MG TAB PO SCH (09:36)
[2021-08-06] MEDS: ENOXAPARIN INJ 30 MG/0.3 ML SYR SQ SCH (09:36)
[2021-08-06] MEDS: TOPIRAMATE 100 MG TAB PO SCH ×2 (09:36→20:38)
[2021-08-06] MEDS: MONTELUKAST SODIUM 10 MG TABLET PO SCH (09:37)
[2021-08-06] MEDS: ASPIRIN 81 MG ECTAB PO SCH (09:37)
[2021-08-06] MEDS: POLYETHYLENE (MIRALAX) 17 GM PACK PO SCH ×4 (09:38→20:38)
[2021-08-06] MEDS: FLUTICASONE PROPIONATE NA SPR 16 GM BTL SCH (09:39)
--- NOTE | 2021-08-06 11:36 | Electrocardiogram Report ---
Test Reason : Blood Pressure : / mmHG Vent. Rate : 089 BPM Atrial Rate : 089 BPM P-R Int : 146 ms QRS Dur : 076 ms QT Int : 360 ms P-R-T Axes : 061 -02 048 degrees QTc Int : 438 ms Normal sinus rhythm Normal ECG When compared with ECG of 05-AUG-2021 10:54, No significant change was found Confirmed by Allen Greenberg ([id number]) on 08/06/2021 11:36:09 AM Referred By: REFERRED SELF Confirmed By:Allen Greenberg
[2021-08-06] MEDS ORDERED: CLINDAMYCIN HCL 150 MG CAP PO SCH (12:00)
[2021-08-06] MEDS: CLINDAMYCIN 600 MG in DEXTROSE 5% 50 ML IV SCH ×2 (13:08→20:37)
--- NOTE | 2021-08-06 15:01 | Hospitalist Progress Note ---
Date of Service August 06, 2021 Assessment & Plan (1) Severe persistent asthma with (acute) exacerbation: Plan: per Dr. Handley's notes with addendum: 60-year-old female who has significant past medical history of severe persistent asthma, CYNTHIA on CPAP, paroxysmal atrial tachycardia, HLD, hypothyroidism, allergic rhinitis, celiac disease and lactose intolerant, GERD with esophagitis, RLS, history of migraine, iron deficiency anemia who presents to ED secondary to shortness of breath Acute on Chronic Asthma Exacerbation COVID 19 Pneumonia Possible aspiration pneumonia treated with IV clindamycin Pt is unvaccinated CTA chest showed no evidence of pulmonary embolus in the main, lobar, or segmental pulmonary arteries. . Patchy airspace consolidation is seen at both lung bases, right greater than left. Continue dexamethasone 6mg IV Does not meet the criteria for Remdesivir due to onset duration 08/06/21 O2 sats 90-94% CT chest: (+) bilateral PNA at the bases continue Decadron IV continue home Combivent and Breo Mucinex 1200mg BID flutter valve and incentive spirometry continue to monitor closely Transaminitis Elevated liver enzyme with AST 81 and ALT 53 LFT trending down with AST to 21 and ALT 30 -- resolved Anemia Hemoglobin on admission 13.8 Hemoglobin remains at 11 Continue iron supplement No signs of active GI bleed Continue monitor CBC HISTORY OF PAROXYSMAL TACHYCARDIA Continue usual verapamil continue ASA CYNTHIA Cpap at home with nose piece, dose not tolerate face mask Hers is broken at home Continue 2L of O2 At HS RESTLESS LEG SYNDROME Continue ropinirole HYPOTHYROIDISM Continue levothyroxine Celiac disease/Gluten Free/Lactose Intolerance DVT ppx:Lovenox FULL CODE Disposition Will discharge once medically stable Admission and Anticipated Discharge Date Admission Date: August 04, 2021 Subjective ff up for COVID 19 pneumonia, asthma exacerbation seen resting in bed, comfortable on room air states she feels slightly better today breathing is slightly better still has dry cough no chest pain, dyspnea, palpitations, dizziness no other symptoms Review of Systems Review of Systems: all noted and negative except for above Physical Exam Physical Exam: General- oriented x 3, not in distress, speaks in sentences with no effort or accessory muscle use Head- atraumatic Eyes- PERRL, EOMI, anicteric ENT- oropharynx clear Neck- supple, no JVD, no adenopathy, no thyromegaly; carotids +2/2, no bruits appreciated Lungs- mild rhonchi and intermittent wheeze bilaterally Heart- normal rate, regular rhythm; no murmur, no gallop, no rub appreciated Abdomen- normal bowel sounds, nondistended, soft, nontender, no masses or hepatosplenomegaly Extremities- no pretibial edema, no calf tenderness; peripheral pulses intact Neuro- alert, oriented x 3; CN 2-12 grossly intact; motor 5/5 bilaterally;sensation 100% on all extremities; no other gross focal neurologic deficits Skin- warm & dry Results & Data Results & Data ([facility]) Vital Signs (Past 12 Hours) Vital Signs Temp Pulse Resp BP Pulse Ox 08/06/21 10:55 36.5 C 65 18 97/64 L 94 08/06/21 06:28 36.8 C 81 18 107/70 98 all noted and reviewed including below
[2021-08-06] MEDS ORDERED: IPRATROPIUM BROMIDE/ALBUTEROL respimat INH INH SCH (17:00)
[2021-08-06] MEDS: ALBUTEROL HFA 8 GM INHALER INH SCH (19:19)
[2021-08-06] MEDS: IPRATROPIUM BROMIDE HFA INHALER INH SCH (19:19)
[2021-08-06] MEDS: rOPINIRole HCL 1 MG TABLET PO SCH (20:38)
[2021-08-06] MEDS: AMITRIPTYLINE HCL 25 MG TAB PO SCH (20:38)
[2021-08-07] MEDS: CLINDAMYCIN 600 MG in DEXTROSE 5% 50 ML IV SCH ×3 (04:57→21:43)
[2021-08-07] MEDS: LEVOTHYROXINE SODIUM 100 MCG TABLET PO SCH (05:55)
[2021-08-07] MEDS: ACETAMINOPHEN 325 MG TAB PO PRN ×2 (07:06→22:27)
[2021-08-07] MEDS: VERAPAMIL HCL 40 MG TAB PO SCH ×2 (07:07→21:33)
[2021-08-07] MEDS: SUCRALFATE 1 GM TAB PO SCH ×4 (07:19→21:27)
[2021-08-07] MEDS: ADVANCED PROBIOTIC 1250 MG CAPSULE PO SCH ×3 (07:19→16:27)
[2021-08-07] MEDS: TAPENTADOL HCL 50 MG TAB PO PRN (08:10)
[2021-08-07] MEDS: ASPIRIN 81 MG ECTAB PO SCH (08:11)
[2021-08-07] MEDS: guaiFENesin 600 MG TABCR PO SCH ×2 (08:11→21:32)
[2021-08-07] MEDS: MONTELUKAST SODIUM 10 MG TABLET PO SCH (08:12)
[2021-08-07] MEDS: TOPIRAMATE 100 MG TAB PO SCH ×2 (08:12→21:27)
[2021-08-07] MEDS: FAMOTIDINE 20 MG TAB PO SCH ×2 (08:12→21:26)
[2021-08-07] MEDS: FLUTICASONE/VILANTEROL 200/25MCG 14 PUFFS/INHALER INH SCH (08:13)
[2021-08-07] MEDS: dexAMETHasone 6 MG in SYRINGE 0 ML IV SCH (08:13)
[2021-08-07] MEDS: PANTOprazole 40 MG TAB PO SCH ×2 (08:13→21:24)
[2021-08-07] MEDS: FERROUS SULFATE 325 MG TAB PO SCH ×4 (08:16→21:25)
[2021-08-07] MEDS: ENOXAPARIN INJ 30 MG/0.3 ML SYR SQ SCH (08:16)
[2021-08-07] MEDS: FEXOFENADINE HCL 180 MG TAB PO SCH (08:17)
[2021-08-07] MEDS: POLYETHYLENE (MIRALAX) 17 GM PACK PO SCH ×4 (08:18→21:28)
[2021-08-07] MEDS: FLUTICASONE PROPIONATE NA SPR 16 GM BTL SCH (08:18)
[2021-08-07] MEDS: POTASSIUM CHLORIDE CRTAB 20 MEQ TABCR PO SCH (08:19)
[2021-08-07] MEDS: oxyCODONE HCL IR 5 MG TAB (IMMEDIATE RELEASE) PO PRN (09:53)
[2021-08-07] MEDS: ALBUTEROL HFA 8 GM INHALER INH SCH (10:48)
[2021-08-07] MEDS: IPRATROPIUM BROMIDE HFA INHALER INH SCH (10:49)
--- NOTE | 2021-08-07 16:15 | Hospitalist Progress Note ---
Date of Service August 07, 2021 Assessment & Plan (1) Severe persistent asthma with (acute) exacerbation: Plan: per Dr. Handley's notes with addendum: 60-year-old female who has significant past medical history of severe persistent asthma, CYNTHIA on CPAP, paroxysmal atrial tachycardia, HLD, hypothyroidism, allergic rhinitis, celiac disease and lactose intolerant, GERD with esophagitis, RLS, history of migraine, iron deficiency anemia who presents to ED secondary to shortness of breath Acute on Chronic Asthma Exacerbation COVID 19 Pneumonia Possible aspiration pneumonia treated with IV clindamycin Pt is unvaccinated CTA chest showed no evidence of pulmonary embolus in the main, lobar, or segmental pulmonary arteries. . Patchy airspace consolidation is seen at both lung bases, right greater than left. Continue dexamethasone 6mg IV Does not meet the criteria for Remdesivir due to onset duration 08/07/21 O2 sats 96-97% CT chest: (+) bilateral PNA at the bases clinically improving continue Decadron IV day 4 continue Breo Mucinex 1200mg BID flutter valve and incentive spirometry Lovenox for DVT prophylaxis continue to monitor closely Transaminitis Elevated liver enzyme with AST 81 and ALT 53 LFT trending down with AST to 21 and ALT 30 -- resolved Anemia Hemoglobin on admission 13.8 Hemoglobin remains at 11 Continue iron supplement No signs of active GI bleed Continue monitor CBC HISTORY OF PAROXYSMAL TACHYCARDIA Continue usual verapamil continue ASA CYNTHIA Cpap at home with nose piece, dose not tolerate face mask Hers is broken at home Continue 2L of O2 At HS RESTLESS LEG SYNDROME Continue ropinirole HYPOTHYROIDISM Continue levothyroxine Celiac disease/Gluten Free/Lactose Intolerance DVT ppx:Lovenox FULL CODE Disposition anticipate d/c home in 1-2 days will needs 2 step exercise test Admission and Anticipated Discharge Date Admission Date: August 04, 2021 Subjective ff up for Asthma exacerbation, COVID 19 pneumonia, etc seen resting in bed, on room air states she continues to feel improved less dyspnea with exertion, none at rest less dry cough, no chest pain/leg pain no other symptoms Review of Systems Review of Systems: all noted and negative except for above Physical Exam Physical Exam: General- oriented x 3, not in distress, speaks in sentences w ith no effort or accessory muscle use Eyes- anicteric Neck- no JVD Lungs- very mild rhonchi at the bases no wheezing Heart- normal rate, regular rhythm; no murmurs Abdomen- normal bowel sounds, nondistended, soft, nontender Extremities- no pretibial edema, no calf tenderness Neuro- alert, oriented x 3; no gross focal neurologic deficits Skin- warm & dry Results & Data Results & Data ([facility]) Vital Signs (Past 12 Hours) Vital Signs Temp Pulse Pulse Resp BP Pulse Ox 08/07/21 14:54 36.8 C 88 16 137/84 96 08/07/21 14:19 85 08/07/21 11:49 36.8 C 97 H 16 111/70 97 08/07/21 08:04 125/79 08/07/21 07:58 74 08/07/21 06:43 36.6 C 74 20 167/103 H 98 all noted and reviewed including below
[2021-08-07] MEDS: AMITRIPTYLINE HCL 25 MG TAB PO SCH (21:25)
[2021-08-07] MEDS: rOPINIRole HCL 1 MG TABLET PO SCH (21:26)
[2021-08-08] MEDS: CLINDAMYCIN 600 MG in DEXTROSE 5% 50 ML IV SCH ×3 (05:35→21:17)
[2021-08-08] MEDS: LEVOTHYROXINE SODIUM 100 MCG TABLET PO SCH (05:37)
[2021-08-08] MEDS: SUCRALFATE 1 GM TAB PO SCH ×4 (07:45→21:10)
[2021-08-08] MEDS: ADVANCED PROBIOTIC 1250 MG CAPSULE PO SCH ×3 (08:35→17:42)
[2021-08-08] MEDS: dexAMETHasone 6 MG in SYRINGE 0 ML IV SCH (08:36)
[2021-08-08] MEDS: FERROUS SULFATE 325 MG TAB PO SCH ×4 (08:36→21:11)
[2021-08-08] MEDS: ASPIRIN 81 MG ECTAB PO SCH (08:36)
[2021-08-08] MEDS: ENOXAPARIN INJ 30 MG/0.3 ML SYR SQ SCH (08:36)
[2021-08-08] MEDS: FAMOTIDINE 20 MG TAB PO SCH ×2 (08:36→21:11)
[2021-08-08] MEDS: FLUTICASONE PROPIONATE NA SPR 16 GM BTL SCH (08:37)
[2021-08-08] MEDS: FLUTICASONE/VILANTEROL 200/25MCG 14 PUFFS/INHALER INH SCH (08:37)
[2021-08-08] MEDS: guaiFENesin 600 MG TABCR PO SCH ×2 (08:37→21:10)
[2021-08-08] MEDS: FEXOFENADINE HCL 180 MG TAB PO SCH (08:37)
[2021-08-08] MEDS: PANTOprazole 40 MG TAB PO SCH ×2 (08:38→21:11)
[2021-08-08] MEDS: MONTELUKAST SODIUM 10 MG TABLET PO SCH (08:38)
[2021-08-08] MEDS: POTASSIUM CHLORIDE CRTAB 20 MEQ TABCR PO SCH (08:38)
[2021-08-08] MEDS: TOPIRAMATE 100 MG TAB PO SCH ×2 (08:39→21:10)
[2021-08-08] MEDS: VERAPAMIL HCL 40 MG TAB PO SCH ×2 (08:39→21:11)
[2021-08-08] MEDS: POLYETHYLENE (MIRALAX) 17 GM PACK PO SCH ×4 (08:56→21:31)
[2021-08-08] MEDS: guaiFENesin SUGAR FREE 200 MG/10 ML UDC PO PRN (08:57)
[2021-08-08] MEDS: ACETAMINOPHEN 325 MG TAB PO PRN ×2 (11:08→22:00)
[2021-08-08] MEDS: TAPENTADOL HCL 50 MG TAB PO PRN (12:20)
--- NOTE | 2021-08-08 16:25 | Hospitalist Progress Note ---
Date of Service August 08, 2021 Assessment & Plan (1) Severe persistent asthma with (acute) exacerbation: Plan: per Dr. Handley's notes with addendum: 60-year-old female who has significant past medical history of severe persistent asthma, CYNTHIA on CPAP, paroxysmal atrial tachycardia, HLD, hypothyroidism, allergic rhinitis, celiac disease and lactose intolerant, GERD with esophagitis, RLS, history of migraine, iron deficiency anemia who presents to ED secondary to shortness of breath Acute on Chronic Asthma Exacerbation COVID 19 Pneumonia Possible aspiration pneumonia treated with IV clindamycin Pt is unvaccinated CTA chest showed no evidence of pulmonary embolus in the main, lobar, or segmental pulmonary arteries. . Patchy airspace consolidation is seen at both lung bases, right greater than left. Continue dexamethasone 6mg IV Does not meet the criteria for Remdesivir due to onset duration 08/08/21 O2 saturation 97 to 98% CT chest: (+) bilateral PNA at the bases clinically improving continue Decadron IV day 5 continue Breo Mucinex 1200mg BID flutter valve and incentive spirometry Lovenox for DVT prophylaxis continue to monitor closely Transaminitis Elevated liver enzyme with AST 81 and ALT 53 LFT trending down with AST to 21 and ALT 30 -- resolved Anemia Hemoglobin on admission 13.8 Hemoglobin remains at 11 Continue iron supplement No signs of active GI bleed Continue monitor CBC HISTORY OF PAROXYSMAL TACHYCARDIA Continue usual verapamil continue ASA CYNTHIA Cpap at home with nose piece, dose not tolerate face mask Hers is broken at home Continue 2L of O2 At HS RESTLESS LEG SYNDROME Continue ropinirole HYPOTHYROIDISM Continue levothyroxine Celiac disease/Gluten Free/Lactose Intolerance DVT ppx:Lovenox FULL CODE Disposition Dissipate discharge to home tomorrow with home health services Two-step exercise test: Does not meet criteria for oxygen supplementation Admission and Anticipated Discharge Date Admission Date: August 04, 2021 Subjective Follow-up for asthma exacerbation, COVID-19 pneumonia, etc. Seen resting in bed, sitting up, comfortable, on room air States she feels improved overall Less dyspnea with exertion No coughing Denies any other symptoms Review of Systems Review of Systems: all noted and negative except for above Physical Exam Physical Exam: General- oriented x 3, not in distress, speaks in sentences with no effort or accessory muscle use Eyes- anicteric Neck- no JVD Lungs-intermittent mild rhonchi Good air entry bilaterally Heart- normal rate, regular rhythm; no murmurs Abdomen- normal bowel sounds, nondistended, soft, nontender Extremities- no pretibial edema, no calf tenderness Neuro- alert, oriented x 3; no gross focal neurologic deficits Skin- warm & dry Results & Data Results & Data ([facility]) Vital Signs (Past 12 Hours) Vital Signs Temp Pulse Pulse Pulse Pulse Pulse Resp 08/08/21 15:18 37.0 C 93 H 18 08/08/21 11:13 36.9 C 94 H 18 08/08/21 09:48 68 08/08/21 09:23 120 H 109 H 104 H 08/08/21 07:35 36.9 C 68 18 Resp Resp Resp BP Pulse Ox Pulse Ox Pulse Ox 08/08/21 15:18 145/97 H 97 08/08/21 11:13 144/93 H 97 08/08/21 09:48 08/08/21 09:23 20 18 18 91 98 08/08/21 07:35 139/87 97 Pulse Ox 08/08/21 15:18 08/08/21 11:13 08/08/21 09:48 08/08/21 09:23 97 08/08/21 07:35 all noted and reviewed including below
[2021-08-08] MEDS: AMITRIPTYLINE HCL 25 MG TAB PO SCH (21:11)
[2021-08-08] MEDS: rOPINIRole HCL 1 MG TABLET PO SCH (21:11)
[2021-08-08] MEDS: BENZONATATE 100 MG CAPSULE PO PRN (21:12)
[2021-08-09] MEDS ORDERED: KETOROLAC TROMETHAMINE 15 MG/ML VIAL IV ONE (01:49)
[2021-08-09] MEDS: TAPENTADOL HCL 50 MG TAB PO PRN ×2 (02:02→12:19)
[2021-08-09] MEDS: CLINDAMYCIN 600 MG in DEXTROSE 5% 50 ML IV SCH ×2 (05:04→12:14)
[2021-08-09] MEDS: LEVOTHYROXINE SODIUM 100 MCG TABLET PO SCH (05:32)
[2021-08-09] MEDS: FLUTICASONE/VILANTEROL 200/25MCG 14 PUFFS/INHALER INH SCH (08:00)
[2021-08-09] MEDS: ADVANCED PROBIOTIC 1250 MG CAPSULE PO SCH ×2 (08:00→12:15)
[2021-08-09] MEDS: POTASSIUM CHLORIDE CRTAB 20 MEQ TABCR PO SCH (08:00)
[2021-08-09] MEDS: dexAMETHasone 6 MG in SYRINGE 0 ML IV SCH (08:00)
[2021-08-09] MEDS: FERROUS SULFATE 325 MG TAB PO SCH ×2 (08:01→12:15)
[2021-08-09] MEDS: guaiFENesin 600 MG TABCR PO SCH (08:01)
[2021-08-09] MEDS: POLYETHYLENE (MIRALAX) 17 GM PACK PO SCH ×2 (08:01→12:14)
[2021-08-09] MEDS: VERAPAMIL HCL 40 MG TAB PO SCH (08:01)
[2021-08-09] MEDS: MONTELUKAST SODIUM 10 MG TABLET PO SCH (08:02)
[2021-08-09] MEDS: PANTOprazole 40 MG TAB PO SCH (08:02)
[2021-08-09] MEDS: ASPIRIN 81 MG ECTAB PO SCH (08:02)
[2021-08-09] MEDS: SUCRALFATE 1 GM TAB PO SCH ×2 (08:02→12:14)
[2021-08-09] MEDS: ENOXAPARIN INJ 30 MG/0.3 ML SYR SQ SCH (08:03)
[2021-08-09] MEDS: FLUTICASONE PROPIONATE NA SPR 16 GM BTL SCH (08:03)
[2021-08-09] MEDS: TOPIRAMATE 100 MG TAB PO SCH (08:03)
[2021-08-09] MEDS: FAMOTIDINE 20 MG TAB PO SCH (08:03)
[2021-08-09] MEDS: FEXOFENADINE HCL 180 MG TAB PO SCH (08:03)
[2021-08-09] MEDS: ACETAMINOPHEN 325 MG TAB PO PRN (10:48)
--- NOTE | 2021-08-09 14:24 | Hospitalist Progress Note ---
Date of Service August 09, 2021 Assessment & Plan (1) Severe persistent asthma with (acute) exacerbation: Plan: per Dr. Handley's notes with addendum: 60-year-old female who has significant past medical history of severe persistent asthma, CYNTHIA on CPAP, paroxysmal atrial tachycardia, HLD, hypothyroidism, allergic rhinitis, celiac disease and lactose intolerant, GERD with esophagitis, RLS, history of migraine, iron deficiency anemia who presents to ED secondary to shortness of breath Acute on Chronic Asthma Exacerbation COVID 19 Pneumonia Possible aspiration pneumonia treated with IV clindamycin Pt is unvaccinated CTA chest showed no evidence of pulmonary embolus in the main, lobar, or segmental pulmonary arteries. . Patchy airspace consolidation is seen at both lung bases, right greater than left. Continue dexamethasone 6mg IV Does not meet the criteria for Remdesivir due to onset duration 08/09/21 O2 saturation 98% clinically improved continue Decadron IV day 12/12 continue Breo Mucinex 1200mg BID flutter valve and incentive spirometry given Lovenox for DVT prophylaxis d/c home today finish 4 more days of Decadron to complete 10 day course continue Mucinex 2 more day continue incentive spirometer at home encouraged to ambulate frequently Transaminitis Elevated liver enzyme with AST 81 and ALT 53 LFT trending down with AST to 21 and ALT 30 -- resolved Anemia Hemoglobin on admission 13.8 Hemoglobin remains at 11 Continue iron supplement No signs of active GI bleed Continue monitor CBC HISTORY OF PAROXYSMAL TACHYCARDIA Continue usual verapamil continue ASA CYNTHIA Cpap at home with nose piece, dose not tolerate face mask Hers is broken at home Continue 2L of O2 At HS RESTLESS LEG SYNDROME Continue ropinirole HYPOTHYROIDISM Continue levothyroxine Celiac disease/Gluten Free/Lactose Intolerance DVT ppx:Lovenox FULL CODE Disposition d/c home today ff up with PCP as scheduled 08/14/21 Admission and Anticipated Discharge Date Admission Date: August 04, 2021 Subjective ff up for covid 19 pneumonia, etc seen resting in bed, comfortable sitting up on room air states she feels better overall no dyspnea, chest pain no leg pain no other symptoms states she is ready and would like to be discharged today Review of Systems Review of Systems: all noted and negative except for above Physical Exam Physical Exam: General- oriented x 3, not in distress, speaks in sentences with no effort or accessory muscle use Eyes- anicteric Neck- no JVD Lungs- clear breath sounds bilaterally no rales/wheezing Heart- normal rate, regular rhythm; no murmurs Abdomen- normal bowel sounds, nondistended, soft, nontender Extremities- no pretibial edema, no calf tenderness Neuro- alert, oriented x 3; no gross focal neurologic deficits Skin- warm & dry Results & Data Results & Data ([facility]) Vital Signs (Past 12 Hours) Vital Signs Temp Pulse Resp BP Pulse Ox 08/09/21 10:43 36.4 C L 88 20 132/84 98 08/09/21 07:51 36.6 C 72 18 129/86 97 08/09/21 03:00 36.7 C 78 18 127/85 96 all noted and reviewed including below
--- NOTE | 2021-08-09 14:39 | Discharge Summary ---
Date of Service August 09, 2021 Admission HPI Per Admitting Provider History obtained from patient and records. Medical history significant for Medical history is significant for asthma/COPD/CYNTHIA on CPAP, history of idiopathic cardiac arrest, paroxysmal atrial tachycardia, celiac disease, GERD, irritable bowel syndrome, hypothyroidism, history MRSA. Last confinement May 2021 for asthma exacerbation. Patient noted to have transaminitis during confinement GI recommended outpatient work-up for possible primary sclerosing cholangitis. Persistent junky cough symptoms and wheezing since discharge from the hospital 2 months ago. GERD symptoms controlled as per patient. 6 weeks ago, patient PCP prescribed azithromycin and prednisone course for bronchitis symptoms. Outpatient Pulmonology referral scheduled for September,. Worsening symptoms the last few days. Junky cough symptoms with pleuritic chest pain and worsening shortness of breath as per patient. No known recent COVID-19 contacts. Patient has not received COVID-19 vaccination because of her allergies. Admits to coughing symptoms with meals/water intake. Achy migraine headache. Worsening of chronic abdominal pain. Patient received Solu-Medrol, neb treatment and Levaquin at the ER. Lowest O2 sats at the ER 93 on room air. MEDICAL HISTORY: As above. SURGICAL HISTORY: TAHBSO, cholecystectomy, appendectomy, ankle surgery, knee surgery, nasal reconstruction, sinus surgery, finger tendon sheath surgery, FAMILY HISTORY: Family history of unknown. Patient is adopted. PERSONAL/SOCIAL HISTORY: Nonsmoker. No chronic intake of inatke of ETOH. 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 Admission Exam (Per Admitting) Constitutional GENERAL: Comfortable, no respiratory distress SKIN: Normal color, warm HEENT: [place] palpebral conjunctivae, no ptosis, dry buccal mucosa NECK : Supple, no tenderness CHEST : Decreased breath sounds, expiratory wheezes, no tenderness HEART : Tachycardic, no obvious murmurs ABDOMEN: Some distention, right-sided abdominal tenderness EXTREMITIES : No LE swelling/tenderness, no other conspicuous deformities noted NEUROLOGIC : Coherent, no facial asymmetry, no other gross focality Discharge Data Consultations 08/03/21 20:07 ED Decision to Admit Stat Procedures Performed CT ANGIOGRAM OF THE CHEST; CT SCAN OF THE ABDOMEN AND PELVIS WITH IV CONTRAST CLINICAL HISTORY: Atypical chest pain. Dyspnea. Generalized abdominal pain. COMPARISON STUDY: Chest x-ray dated 08/03/2021. Chest CT dated 02/08/2012 and 08/29/2008. Abdominal CT dated 04/06/2021. TECHNIQUE: Following the IV administration of 119 of Optiray 320, CT angiogram of the chest is performed from the upper abdomen to the thoracic inlet utilizing the pulmonary embolus protocol. Images are reviewed in the axial, sagittal, coronal planes. 3-D MIPS images are created and assessed. Subsequently, CT scan of the abdomen and pelvis was performed from the lung bases to the proximal femora. Images are reviewed in the axial, sagittal, and coronal planes. IV contrast was administered without complication. A dose lowering technique was utilized adhering to the principles of ALARA. The Examinations are modestly degraded by motion artifact. CT DOSE: 546.88 mGy.cm FINDINGS: CHEST: Thyroid: Imaged portions of the thyroid gland are normal in size and attenuation. Thoracic aorta: The thoracic aorta is normal in caliber and demonstrates standard 3-vessel arch anatomy. No dissection is seen. Pulmonary vasculature: The pulmonary trunk is normal in caliber. There are no filling defects identified in the main, lobar, or segmental pulmonary arteries to indicate pulmonary embolus. Heart: A right internal jugular central venous infusion port is in place. The heart is normal in size and without pericardial effusion. Lungs and pleural spaces: There is mild patchy airspace consolidation at both lung bases, right greater than left with associated peribronchial thickening and mucous plugging. Minimal patchy consolidation is seen in the left upper lobe. No pleural effusion is identified. The trachea and central airways are patent. Mediastinum: There is no mediastinal lymphadenopathy. Addie: Clear. Axillae: There is no axillary lymphadenopathy. Bony thorax: The skeletal structures are osteopenic. No lytic or blastic lesions are identified. There are healed left-sided rib fractures. ABDOMEN AND PELVIS: Liver: The contrast-enhanced liver is normal in size, contour, and attenuation. There is mild intrahepatic biliary ductal dilatation. The hepatic veins and portal veins are patent. Gallbladder: Surgically absent noting clips in the gallbladder fossa. Spleen: Normal in size and attenuation. Pancreas: Atrophic and grossly unremarkable. Adrenal glands: The 2.7 x 1.9 cm heterogeneous nodule is again seen arising from the inferior aspect of the left adrenal gland on image #135. This has been present dating back to 2008 and was previously shown to represent a fat- containing adenoma. The right adrenal gland is normal in appearance. Kidneys: The contrast enhanced kidneys are normal in size and without hydronephrosis. The kidneys enhance symmetrically. Scattered subcentimeter cortical hypodensities likely represent cysts but are too small for definitive characterization. Abdominal vasculature: The abdominal aorta is normal in course and caliber noting mild atherosclerotic calcification. Bowel: There is rectosigmoid fecal retention and moderate constipation. No bowel obstruction is identified. The appendix is well-visualized and normal. Peritoneum: There is no intraperitoneal free air or abdominal ascites. Lymphadenopathy: None. Pelvic viscera: The bladder is normal as visualized. The uterus is surgically absent. No adnexal lesion is seen. Skeletal structures: The skeletal structures are osteopenic. There is mild lumbosacral spondylosis. No lytic or blastic lesions are seen. There is avascular necrosis of the femoral heads, left greater than right. IMPRESSION: 1. There is no evidence of pulmonary embolus in the main, lobar, or segmental pulmonary arteries. 2. Patchy airspace consolidation is seen at both lung bases, right greater than left. Correlate clinically for evidence of pneumonia/aspiration pneumonitis. 3. No acute infectious or inflammatory findings are identified in the abdomen or pelvis. 4. Rectosigmoid fecal retention and moderate constipation. 5. Avascular necrosis of the femoral heads. 6. Additional findings as above. ACT 112: Negative or not required by law. Electronically signed by: Demetrius Bruce M.D. 08/04/2021 7:32 AM Hospital Course (1) Severe persistent asthma with (acute) exacerbation: per Dr. Handley's notes with addendum: 60-year-old female who has significant past medical history of severe persistent asthma, CYNTHIA on CPAP, paroxysmal atrial tachycardia, HLD, hypothyroidism, allergic rhinitis, celiac disease and lactose intolerant, GERD with esophagitis, RLS, history of migraine, iron deficiency anemia who presents to ED secondary to shortness of breath Acute on Chronic Asthma Exacerbation COVID 19 Pneumonia Possible aspiration pneumonia treated with IV clindamycin Pt is unvaccinated CTA chest showed no evidence of pulmonary embolus in the main, lobar, or segmental pulmonary arteries. . Patchy airspace consolidation is seen at both lung bases, right greater than left. Continue dexamethasone 6mg IV Does not meet the criteria for Remdesivir due to onset duration 08/09/21 O2 saturation 98% clinically improved continue Decadron IV day 12/12 continue Breo Mucinex 1200mg BID flutter valve and incentive spirometry given Lovenox for DVT prophylaxis d/c home today finish 4 more days of Decadron to complete 10 day course continue Mucinex 2 more day continue incentive spirometer at home encouraged to ambulate frequently Transaminitis Elevated liver enzyme with AST 81 and ALT 53 LFT trending down with AST to 21 and ALT 30 -- resolved Anemia Hemoglobin on admission 13.8 Hemoglobin remains at 11 Continue iron supplement No signs of active GI bleed Continue monitor CBC HISTORY OF PAROXYSMAL TACHYCARDIA Continue usual verapamil continue ASA CYNTHIA Cpap at home with nose piece, dose not tolerate face mask Hers is broken at home Continue 2L of O2 At HS RESTLESS LEG SYNDROME Continue ropinirole HYPOTHYROIDISM Continue levothyroxine Celiac disease/Gluten Free/Lactose Intolerance DVT ppx:Lovenox FULL CODE Disposition d/c home today ff up with PCP as scheduled 08/14/21
== END 2021-08-09 17:54 | disposition home or self-care (01) | DRG 177 ==
LOC: ED 18:06 → 2W 18:06 → SUATTDRO 08-04 00:45

== ENCOUNTER 2023-01-06 17:48 | Inpatient (IN) ==
--- NOTE | 2023-01-06 17:55 | ED Triage Note ---
Date of Service January 06, 2023 History of Present Illness This patient was briefly evaluated while in triage. An abbreviated physical exam was performed. This patient is a 62-year-old Female who presents to the ED for evaluation of afib. Feeling unwell for about 10 days and went to PCP today for check up. No previous hx of afib. Has some SOB and CP. Has EKG from [employer] with her that was interpreted as afib with rvr on the computer. Physical Exam Limited Triage Exam: VITALS: Vitals are noted on the nurse's note and reviewed by myself. Vital signs stable. GENERAL: Well-developed, well-nourished, white female, who is in no acute dist ress and resting comfortably. Patient is cooperative with the examination. HEART: tachycardic LUNGS: Mild rhonchi with noted cough NEURO: Patient was alert and oriented to person place and time. CN II through XII grossly intact. Initial orders for labs and / or imaging were placed and patient was placed in the waiting area until a bed is available. Please see further documentation for the full ED course. MDM / Impression Impression Impression: Chest pain, Palpitation, Sinus tachycardia, Cough, Anemia, Lab test negative for COVID-19 virus, Shortness of breath Impression: Chest pain Qualifiers: Chest pain type: unspecified Qualified Code(s): R07.9 - Chest pain, unspecified Cough Qualifiers: Cough type: unspecified Qualified Code(s): R05.9 - Cough, unspecified Anemia Qualifiers: Anemia type: unspecified type Qualified Code(s): D64.9 - Anemia, unspecified
--- NOTE | 2023-01-06 18:12 | Emergency Department Note ---
History of Present Illness General Chief complaint: Cardiac Assessment Stated complaint: A FIB Time Seen by Provider: 01/06/23 17:58 Source: patient, RN notes reviewed and old records reviewed Mode of arrival: ambulatory Limitations: no limitations History of Present Illness Maximum Pain Intensity: 6 This patient is a 62-year-old female who was sent over from her doctor's office after concern for A-fib. She says she has been coughing for 10 days she says short of breath she had intermittent chest pain she feels her legs are swollen she saw her doctor today and was told she was in A-fib so they sent her over h ere. No history of A-fib although it runs in the family she had no fever she had some nausea feels lightheaded dizzy at times. No focal numbness or weakness. No blood or melena in her stool. No abdominal pain. She sees Dr. Wong. Home Medications Medication Instructions Recorded Confirmed Type amitriptyline 75 mg tablet 75 mg PO HS 12/24/20 01/06/23 History cimetidine 400 mg tablet 400 mg PO BID 12/24/20 01/06/23 History ergocalciferol (vitamin D2) 1,250 1,250 mcg PO 2XWK 12/24/20 01/06/23 History mcg (50,000 unit) capsule (Vitamin D2) hyoscyamine sulfate 0.375 mg 0.375 mg PO Q6H PRN abd pain 12/24/20 01/06/23 History tablet,extended release,12 hr polyethylene glycol 3350 17 17 g PO QID PRN FOR AT LEAST 1 12/24/20 01/06/23 History gram/dose oral powder (Miralax) STOOL DAILY rabeprazole 20 mg tablet,delayed 40 mg PO BID 12/24/20 01/06/23 History release ropinirole 1 mg tablet 1 mg PO HS 12/24/20 01/06/23 History sucralfate 1 gram tablet (Carafate) 1 g PO ACHS 12/24/20 01/06/23 History topiramate 100 mg tablet (Topamax) 100 mg PO BID 12/24/20 01/06/23 History aspirin 81 mg tablet,delayed 81 mg PO DAILY 04/06/21 01/06/23 History release (Kerwin Low Dose Aspirin) fexofenadine 180 mg tablet 180 mg PO DAILY 05/08/21 01/06/23 History levothyroxine 100 mcg tablet 100 mcg PO DAILYBB 05/08/21 01/06/23 History montelukast 10 mg tablet 10 mg PO DAILY 05/08/21 01/06/23 History ondansetron 4 mg disintegrating 4 mg translingual Q8H PRN Nausea 05/08/21 0711/24 History tablet azelastine 137 mcg (0.1 %) nasal 1 spray intranasal BID 01/06/23 01/06/23 History spray aerosol docusate sodium 100 mg capsule 100 mg PO BID PRN Constipation 01/06/23 01/06/23 History epinephrine 0.3 mg/0.3 mL 0.3 mg IM DIRECTED PRN Allergic 01/06/23 01/06/23 H istory injection, auto-injector (EpiPen) Reaction ferrous sulfate 325 mg (65 mg 325 mg PO QID 01/06/23 01/06/23 History iron) tablet fluticasone 250 mcg-salmeterol 50 1 inh inhalation BID 01/06/23 01/06/23 History mcg/dose blistr powdr for inhalation (Advair Diskus) galcanezumab-gnlm 120 mg/mL 120 mg subcut MONTHLY 01/06/23 01/06/23 History subcutaneous pen injector (Emgality Pen) ipratropium 20 mcg-albuterol 100 1 puff inhalation QID PRN USE IN 01/06/2311/24 History mcg/actuation mist for inhalation PLACE OF XOPENEX IF NEEDED (Combivent Respimat) levalbuterol HCl 1.25 mg/3 mL 1.25 mg inhalation QID PRN 01/06/23 01/06/23 History solution for nebulization WHEEZING/SHORT OF BREATH mometasone 50 mcg/actuation nasal 2 spray intranasal BID 01/06/23 01/06/23 History spray multivitamin 1 tab PO DAILY 01/06/23 01/06/23 History sennosides 8.6 mg tablet (senna) 8.6 mg PO DAILY PRN Constipation 01/06/23 01/06/23 History triamcinolone acetonide 0.1 % 1 applic topical BID PRN 01/06/23 01/06/23 History topical cream PSORIASIS-ELBOWS/KNEES/HAIRLINE verapamil 40 mg tablet 80 mg PO DAILY 01/06/23 01/06/23 History Allergies Allergy/AdvReac Type Severity Reaction Status Date / Time bee venom protein (honey bee) Allergy Severe ANAPHYLAXIS Verified 01/06/23 20:05 coconut Allergy Severe RASH; SOB Verified 01/06/23 20:05 gluten Allergy Severe CELIAC'S Verified 01/06/23 20:05 iron Allergy Severe SOB,TACHY Verified 01/06/23 20:05 WITH IV IRON latex Allergy Severe Anaphylaxis Verified 01/06/23 20:05 Penicillins Allergy Severe Anaphylaxis Verified 01/06/23 20:05 Sulfa (Sulfonamide Allergy Severe Anaphylaxis Verified 01/06/23 20:05 Antibiotics) ROBER Inhibitors Allergy Intermediate RASH/TACHYC Verified 01/06/23 20:05 ARDIA cefaclor Allergy Intermediate CECLOR--RASH/UPSET Verified 01/06/23 20:05 STOMACH egg Allergy Intermediate RASH & Verified 01/06/23 20:05 Bloating Influenza Virus Vaccines Allergy Intermediate rash and Verified 01/06/23 20:05 bloating lactose Allergy Intermediate RASH; Verified 01/06/23 20:05 BLOATING; DIARRHEA; VOMITING tetracycline Allergy Intermediate NAUSEA/VOMI Verified 01/06/23 20:05 TING/RASH Quinolones Allergy Unknown ALLERGY TO Verified 01/06/23 20:05 AVELOX ,CAN TAKE CIPRO OR LEVAQUIN W/O RXN Beta-Blockers AdvReac Intermediate intolerance Verified 01/06/23 20:44 (Beta-Adrenergic Bloc as per records Past Med/Surg History Medical History Adrenal cyst monitoring Anxiety Asthma, severe persistent Bloody diarrhea Celiac disease Chronic anemia Chronic back pain Chronic obstructive pulmonary disease Colitis with rectal bleeding Degenerative disc disease Dehydration Dyslipidemia Elevated LFTs Gastroparesis GERD (gastroesophageal reflux disease) Heart disease Hx of sepsis ~2017 treated at [facility]. Hypertension Hypothyroidism no current medication -- TSH normal without meds. IBS (irritable bowel syndrome) CHARLES (iron deficiency anemia) ferrous sulfate QID. Kidney stones no surgery Mitral valve prolapse follows with Dr Aguirre MRSA (methicillin resistant Staphylococcus aureus) 1999 dx nose septum wound 2019 dx in lungs Narcolepsy NSVT (nonsustained ventricular tachycardia) Osteoarthritis Sleep apnea CPAP -- have not used in about a year (it broke and has not yet been fixed) Surgical History History of arthroscopic knee surgery left History of bilateral tubal ligation History of section x1 History of colonoscopy History of dilatation and curettage History of esophagogastroduodenoscopy (EGD) Hx of cardiac cath "2010 - normal coronaries" Hx of cholecystectomy S/P nasal surgery S/P surgery on nasal septum "collapsed septum" s/p post op infection that "ate away the septum" S/P GLENNY-BSO Family History Other No family history of adverse response to anesthesia Social History Smoking Status: Unknown if ever smoked Second Hand Exposure: No; Do You Dip or Chew Tobacco: No; Hx Alcohol Use: No Hx Substance Use: No Preferred Language: Armenian Communication Ability: Effective 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 Hand 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: No Beliefs That Will Affect Care: None marital status: Current Living Situation: Family Current Living Situation Comment: and adult son Other Information That Helps Us Care for You: No Feels Safe at Home: Yes Safety Concerns: Feels Safe At This Time Assistive Devices: Oxygen - at Night Review of Systems A total of 10 systems reviewed and were otherwise negative Physical Exam Vital Signs Vital Signs - 24 hr 01/06/23 17:52 01/06/23 18:04 01/06/23 18:08 Temperature 36.6 C Temperature Source Temporal Artery Scan Pulse Rate 128 H 128 H Pulse Rate [Apical] Pulse Rate from SpO2 Sensor Respiratory Rate 20 Respiratory Effort / Characteristics Non-Labored Spontaneous Short of Breath Respiratory Depth Normal Normal Blood Pressure 188/117 H Blood Pressure [Left Arm] Blood Pressure Mean 140 Blood Pressure Mean [Left Arm] Pulse Oximetry 100 Oxygen Delivery Method Room Air Room Air Oxygen Flow Rate Sepsis Recent Fever Within 48 Hours No Sepsis New/Unexplained Change in Mental Status N/A Sepsis Action Taken by Nursing No Action Required Oxygen Flow Rate - Titration 01/06/23 18:08 01/06/23 18:08 01/06/23 17:48 Temperature 37.1 C Temperature Source Oral Pulse Rate 120 H Pulse Rate [Apical] Pulse Rate from SpO2 Sensor Respiratory Rate 13 15 Respiratory Effort / Characteristics Short of Breath Respiratory Depth Blood Pressure Blood Pressure [Left Arm] 178/130 H Blood Pressure Mean Blood Pressure Mean [Left Arm] 146 Pulse Oximetry 95 95 95 Oxygen Delivery Method Room Air Room Air Oxygen Flow Rate 0 Sepsis Recent Fever Within 48 Hours Sepsis New/Unexplained Change in Mental Status Sepsis Action Taken by Nursing Oxygen Flow Rate - Titration 0 01/06/23 19:00 01/06/23 18:27 01/06/23 18:30 Temperature Temperature Source Pulse Rate 127 H 122 H Pulse Rate [Apical] 114 H Pulse Rate from SpO2 Sensor 126 H 122 H Respiratory Rate 16 17 12 Respiratory Effort / Characteristics Non-Labored Spontaneous Respiratory Depth Normal Blood Pressure 149/118 H Blood Pressure [Left Arm] 148/92 H Blood Pressure Mean 128 Blood Pressure Mean [Left Arm] 110 Pulse Oximetry 97 98 99 Oxygen Delivery Method Room Air Oxygen Flow Rate Sepsis Recent Fever Within 48 Hours Sepsis New/Unexplained Change in Mental Status Sepsis Action Taken by Nursing Oxygen Flow Rate - Titration 01/06/23 18:40 01/06/23 18:50 01/06/23 19:00 Temperature Temperature Source Pulse Rate 110 H 102 H 113 H Pulse Rate [Apical] Pulse Rate from SpO2 Sensor 108 H 100 H 104 H Respiratory Rate 13 22 13 Respiratory Effort / Characteristics Respiratory Depth Blood Pressure Blood Pressure [Left Arm] Blood Pressure Mean Blood Pressure Mean [Left Arm] Pulse Oximetry 98 98 96 Oxygen Delivery Method Oxygen Flow Rate Sepsis Recent Fever Within 48 Hours Sepsis New/Unexplained Change in Mental Status Sepsis Action Taken by Nursing Oxygen Flow Rate - Titration 01/06/23 19:02 01/06/23 19:20 01/06/23 19:20 Temperature Temperature Source Pulse Rate 114 H 96 H Pulse Rate [Apical] Pulse Rate from SpO2 Sensor 114 H 97 H Respiratory Rate 12 12 Respiratory Effort / Characteristics Respiratory Depth Blood Pressure 148/92 H 135/89 Blood Pressure [Left Arm] Blood Pressure Mean 110 105 Blood Pressure Mean [Left Arm] Pulse Oximetry 99 98 Oxygen Delivery Method Oxygen Flow Rate Sepsis Recent Fever Within 48 Hours Sepsis New/Unexplained Change in Mental Status Sepsis Action Taken by Nursing Oxygen Flow Rate - Titration 01/06/23 19:30 01/06/23 19:31 01/06/23 19:40 Temperature Temperature Source Pulse Rate 118 H 109 H 107 H Pulse Rate [Apical] Pulse Rate from SpO2 Sensor 112 H Respiratory Rate 13 17 18 Respiratory Effort / Characteristics Respiratory Depth Blood Pressure 163/103 H Blood Pressure [Left Arm] Blood Pressure Mean 123 Blood Pressure Mean [Left Arm] Pulse Oximetry 96 Oxygen Delivery Method Oxygen Flow Rate Sepsis Recent Fever Within 48 Hours Sepsis New/Unexplained Change in Mental Status Sepsis Action Taken by Nursing Oxygen Flow Rate - Titration 01/06/23 19:50 01/06/23 20:20 01/06/23 20:27 Temperature Temperature Source Pulse Rate 105 H 108 H 104 H Pulse Rate [Apical] Pulse Rate from SpO2 Sensor 99 H Respiratory Rate 14 18 31 H Respiratory Effort / Characteristics Respiratory Depth Blood Pressure 142/105 H Blood Pressure [Left Arm] Blood Pressure Mean 117 Blood Pressure Mean [Left Arm] Pulse Oximetry 98 Oxygen Delivery Method Oxygen Flow Rate Sepsis Recent Fever Within 48 Hours Sepsis New/Unexplained Change in Mental Status Sepsis Action Taken by Nursing Oxygen Flow Rate - Titration 01/06/23 20:30 Temperature Temperature Source Pulse Rate 103 H Pulse Rate [Apical] Pulse Rate from SpO2 Sensor Respiratory Rate 20 Respiratory Effort / Characteristics Respiratory Depth Blood Pressure 154/110 H Blood Pressure [Left Arm] Blood Pressure Mean 124 Blood Pressure Mean [Left Arm] Pulse Oximetry Oxygen Delivery Method Oxygen Flow Rate Sepsis Recent Fever Within 48 Hours Sepsis New/Unexplained Change in Mental Status Sepsis Action Taken by Nursing Oxygen Flow Rate - Titration General: Well developed well nourished middle-age female who has an intermittent cough but otherwise appears in no acute distress, breathing comfortably on room air. Normal speech HEENT: Normal cephalic atraumatic. Pupils are equal round and reactive to light. Sclera are anicteric. Extraocular movements are intact. Oropharynx is pink with moist mucous membranes. No swelling of the mouth lips or tongue. Neck: Supple with a midline trachea. No meningeal signs or stiffness, no JVD or bruits. No Stridor. Chest: Clear to auscultation bilaterally. No wheezes or rhonchi. No increased work of breathing. There is an a port in the right chest which the patient says she is not sure if it works or not Heart: Tachycardic but regular rate and rhythm without murmurs or gallops. The rate is about 120 and looks to be sinus tach on the monitor. There are P waves Abdomen: Soft nontender, nondistended without rebound guarding or rigidity. Extremities: No cyanosis clubbing. There is trace bilateral lower extremity edema. No calf tenderness or assymetry Spine/Back. Non tender to palpation. No CVA tenderness Skin: Good turgor without rashes. Neurologic exam: Cranial nerves two through 12 are intact. Motor and sensation are intact and symmetrical throughout. Course Administered Medications Discontinued Medications Benzonatate (Benzonatate 100 Mg Capsule) 100 mg PO NOW ONE Stop: 01/06/23 20:34 Last Admin: 01/06/23 20:58 Dose: 100 mg Documented By: PATRICE Furosemide (Furosemide Inj 20 Mg/2 Ml Vial) 20 mg IV ONE ONE Stop: 01/06/23 20:36 Last Admin: 01/06/23 20:58 Dose: 20 mg Documented By: PATRICE Guaifenesin (Guaifenesin 600 Mg Tabcr) 600 mg PO NOW STA Stop: 01/06/23 20:34 Last Admin: 01/06/23 20:59 Dose: 600 mg Documented By: PATRICE Ioversol (Optiray 320 125ml) 121 ml IV ONCE ONE Stop: 01/06/23 20:10 Last Admin: 01/06/23 20:10 Dose: 121 ml Documented By: REGINA Potassium Chloride (Potassium Chloride Crtab 20 Meq Tabcr) 20 meq PO NOW STA Stop: 01/06/23 19:49 Last Admin: 01/06/23 20:29 Dose: 20 meq Documented By: PATRICE Tramadol HCl (Tramadol Hcl 50 Mg Tablet) 25 mg PO NOW STA Stop: 01/06/23 20:33 Last Admin: 01/06/23 20:58 Dose: 25 mg Documented By: PATRICE Verapamil HCl (Verapamil Hcl 40 Mg Tab) 80 mg PO NOW STA Stop: 01/06/23 19:54 Last Admin: 01/06/23 20:28 Dose: 80 mg Documented By: PATRICE Medical Decision Making Differential Diagnosis Arrhythmia, acute coronary syndrome, electrolyte or metabolic abnormality, pneumonia, sepsis, pulmonary disease, tickborne illness, electrolyte or metabolic abnormality Medical Records Attestation: I reviewed the patient's medical records. Home Medications Current Medication List: was personally reviewed by me Laboratory Data Attestation: I reviewed the patient's lab results. 01/06/23 18:15 01/06/23 18:15 Lab Results 01/06/23 01/06/23 01/06/23 Range/Units 18:15 18:15 18:15 WBC 8.70 (4.8-10.8) K/ul RBC 4.68 (4.20-5.40) M/uL Hgb 8.4 L (12.0-16.0) g/dl Hct 31.2 L (37.0-47.0) % MCV 66.7 L (80.0-100.0) fL MCH 17.9 L (25.0-34.0) pg MCHC 26.9 L (32.0-36.0) g/dL RDW Std Deviation 42.7 (36.4-46.3) fL RDW Coeff of Reginaldo 18.3 H (11.5-14.5) % Plt Count 451 H (130-400) K/uL MPV 10.5 (9.4-12.4) fL Immature Gran % (Auto) 0.2 % Neut % (Auto) 69.1 % Lymph % (Auto) 20.1 % Polk % (Auto) 7.9 % Eos % (Auto) 2.0 % Baso % (Auto) 0.7 % Neut # (Auto) 6.01 (1.40-6.50) K/uL Lymph # (Auto) 1.75 (1.2-3.4) K/uL Polk # (Auto) 0.69 H (0.11-0.59) K/uL Eos # (Auto) 0.17 (0-0.50) K/uL Baso # (Auto) 0.06 (0-0.2) K/uL Immature Gran # (Auto) 0.02 (0.01-0.20) K/uL Hypochromasia Present Microcytosis Present Tear Drop Cells 1+ PT Cancelled INR Cancelled APTT Cancelled PTT Ratio Cancelled Sodium 141 (136-145) mmol/L Potassium 3.9 (3.5-5.1) mmol/L Chloride 109 H (98-107) mmol/L Carbon Dioxide 24 (21-32) mmol/L Anion Gap 8 (3-11) BUN 18 (6-23) mg/dl Creatinine 0.98 (0.6-1.2) mg/dl Est Cr Clr Drug Dosing 54.2 ml/min Est GFR ( Amer) 72.2 ml/min Est GFR (Non-Af Amer) 62.3 ml/min BUN/Creatinine Ratio 18.4 (10-20) Glucose 111 H (70-99(Fasting)) mg/dl Calcium 9.6 (8.6-10.3) mg/dl Magnesium 2.0 (1.7-2.4) mg/dl Total Bilirubin 0.3 (0.2-1.0) mg/dl AST 24 (13-39) U/L ALT 22 (7-52) U/L Alkaline Phosphatase 111 H (34-104) U/L Troponin I High Sens 11.4 (0-14) pg/ml B-Natriuretic Peptide (0-100) pg/ml Total Protein 6.9 (6.0-8.3) gm/dl Albumin 4.1 (3.4-5.0) gm/dl Globulin 2.8 (2.5-4.0) gm/dl Albumin/Globulin Ratio 1.5 (0.9-2) Lipase 68 (11-82) U/L TSH (0.300-4.500) uIu/ml Nasal Screen MRSA (PCR) (Negative) Adenovirus (PCR) (NotDetected) Anaplasma Smear B. pertussis DNA (PCR) (NotDetected) B.parapertussis DNA PCR (NotDetected) Lyme Disease IgG Ab (Negative) Lyme Disease IgM Ab (Negative) C. pneumoniae DNA (PCR) (NotDetected) Coronavirus OC43 (PCR) (NotDetected) Coronavirus HKU1 (PCR) (NotDetected) Coronavirus 229E (PCR) (NotDetected) SARS-CoV-2 (PCR) (NotDetected) Coronavirus NL63 (PCR) (NotDetected) Human Metapneumovir PCR (NotDetected) Influenza Type A (PCR) (NotDetected) Influenza Type B (PCR) (NotDetected) M. pneumoniae (PCR) (NotDetected) Parainfluenza 1 (PCR) (NotDetected) Parainfluenza 2 (PCR) (NotDetected) Parainfluenza 3 (PCR) (NotDetected) Parainfluenza 4 (PCR) (NotDetected) RSV (PCR) (NotDetected) Entero/Rhino (PCR) (NotDetected) Blood Type Antibody Screen Crossmatch 01/06/23 01/06/23 01/06/23 Range/Units 18:15 18:15 18:15 WBC (4.8-10.8) K/ul RBC (4.20-5.40) M/uL Hgb (12.0-16.0) g/dl Hct (37.0-47.0) % MCV (80.0-100.0) fL MCH (25.0-34.0) pg MCHC (32.0-36.0) g/dL RDW Std Deviation (36.4-46.3) fL RDW Coeff of Reginaldo (11.5-14.5) % Plt Count (130-400) K/uL MPV (9.4-12.4) fL Immature Gran % (Auto) % Neut % (Auto) % Lymph % (Auto) % Polk % (Auto) % Eos % (Auto) % Baso % (Auto) % Neut # (Auto) (1.40-6.50) K/uL Lymph # (Auto) (1.2-3.4) K/uL Polk # (Auto) (0.11-0.59) K/uL Eos # (Auto) (0-0.50) K/uL Baso # (Auto) (0-0.2) K/uL Immature Gran # (Auto) (0.01-0.20) K/uL Hypochromasia Microcytosis Tear Drop Cells PT INR APTT PTT Ratio Sodium (136-145) mmol/L Potassium (3.5-5.1) mmol/L Chloride (98-107) mmol/L Carbon Dioxide (21-32) mmol/L Anion Gap (3-11) BUN (6-23) mg/dl Creatinine (0.6-1.2) mg/dl Est Cr Clr Drug Dosing ml/min Est GFR ( Amer) ml/min Est GFR (Non-Af Amer) ml/min BUN/Creatinine Ratio (10-20) Glucose (70-99(Fasting)) mg/dl Calcium (8.6-10.3) mg/dl Magnesium (1.7-2.4) mg/dl Total Bilirubin (0.2-1.0) mg/dl AST (13-39) U/L ALT (7-52) U/L Alkaline Phosphatase (34-104) U/L Troponin I High Sens (0-14) pg/ml B-Natriuretic Peptide 96 (0-100) pg/ml Total Protein (6.0-8.3) gm/dl Albumin (3.4-5.0) gm/dl Globulin (2.5-4.0) gm/dl Albumin/Globulin Ratio (0.9-2) Lipase (11-82) U/L TSH 3.376 (0.300-4.500) uIu/ml Nasal Screen MRSA (PCR) (Negative) Adenovirus (PCR) (NotDetected) Anaplasma Smear B. pertussis DNA (PCR) (NotDetected) B.parapertussis DNA PCR (NotDetected) Lyme Disease IgG Ab Negative (Negative) Lyme Disease IgM Ab Negative (Negative) C. pneumoniae DNA (PCR) (NotDetected) Coronavirus OC43 (PCR) (NotDetected) Coronavirus HKU1 (PCR) (NotDetected) Coronavirus 229E (PCR) (NotDetected) SARS-CoV-2 (PCR) (NotDetected) Coronavirus NL63 (PCR) (NotDetected) Human Metapneumovir PCR (NotDetected) Influenza Type A (PCR) (NotDetected) Influenza Type B (PCR) (NotDetected) M. pneumoniae (PCR) (NotDetected) Parainfluenza 1 (PCR) (NotDetected) Parainfluenza 2 (PCR) (NotDetected) Parainfluenza 3 (PCR) (NotDetected) Parainfluenza 4 (PCR) (NotDetected) RSV (PCR) (NotDetected) Entero/Rhino (PCR) (NotDetected) Blood Type Antibody Screen Crossmatch 01/06/23 01/06/23 01/06/23 Range/Units 18:15 18:27 19:42 WBC (4.8-10.8) K/ul RBC (4.20-5.40) M/uL Hgb (12.0-16.0) g/dl Hct (37.0-47.0) % MCV (80.0-100.0) fL MCH (25.0-34.0) pg MCHC (32.0-36.0) g/dL RDW Std Deviation (36.4-46.3) fL RDW Coeff of Reginaldo (11.5-14.5) % Plt Count (130-400) K/uL MPV (9.4-12.4) fL Immature Gran % (Auto) % Neut % (Auto) % Lymph % (Auto) % Polk % (Auto) % Eos % (Auto) % Baso % (Auto) % Neut # (Auto) (1.40-6.50) K/uL Lymph # (Auto) (1.2-3.4) K/uL Polk # (Auto) (0.11-0.59) K/uL Eos # (Auto) (0-0.50) K/uL Baso # (Auto) (0-0.2) K/uL Immature Gran # (Auto) (0.01-0.20) K/uL Hypochromasia Microcytosis Tear Drop Cells PT 11.7 INR 1.1 APTT 22.2 PTT Ratio 0.8 Sodium (136-145) mmol/L Potassium (3.5-5.1) mmol/L Chloride (98-107) mmol/L Carbon Dioxide (21-32) mmol/L Anion Gap (3-11) BUN (6-23) mg/dl Creatinine (0.6-1.2) mg/dl Est Cr Clr Drug Dosing ml/min Est GFR ( Amer) ml/min Est GFR (Non-Af Amer) ml/min BUN/Creatinine Ratio (10-20) Glucose (70-99(Fasting)) mg/dl Calcium (8.6-10.3) mg/dl Magnesium (1.7-2.4) mg/dl Total Bilirubin (0.2-1.0) mg/dl AST (13-39) U/L ALT (7-52) U/L Alkaline Phosphatase (34-104) U/L Troponin I High Sens (0-14) pg/ml B-Natriuretic Peptide (0-100) pg/ml Total Protein (6.0-8.3) gm/dl Albumin (3.4-5.0) gm/dl Globulin (2.5-4.0) gm/dl Albumin/Globulin Ratio (0.9-2) Lipase (11-82) U/L TSH (0.300-4.500) uIu/ml Nasal Screen MRSA (PCR) (Negative) Adenovirus (PCR) Not Detected (NotDetected) Anaplasma Smear See Comment B. pertussis DNA (PCR) Not Detected (NotDetected) B.parapertussis DNA PCR Not Detected (NotDetected) Lyme Disease IgG Ab (Negative) Lyme Disease IgM Ab (Negative) C. pneumoniae DNA (PCR) Not Detected (NotDetected) Coronavirus OC43 (PCR) Not Detected (NotDetected) Coronavirus HKU1 (PCR) Not Detected (NotDetected) Coronavirus 229E (PCR) Not Detected (NotDetected) SARS-CoV-2 (PCR) Not Detected (NotDetected) Coronavirus NL63 (PCR) Not Detected (NotDetected) Human Metapneumovir PCR Not Detected (NotDetected) Influenza Type A (PCR) Not Detected (NotDetected) Influenza Type B (PCR) Not Detected (NotDetected) M. pneumoniae (PCR) Not Detected (NotDetected) Parainfluenza 1 (PCR) Not Detected (NotDetected) Parainfluenza 2 (PCR) Not Detected (NotDetected) Parainfluenza 3 (PCR) Not Detected (NotDetected) Parainfluenza 4 (PCR) Not Detected (NotDetected) RSV (PCR) Not Detected (NotDetected) Entero/Rhino (PCR) Not Detected (NotDetected) Blood Type Antibody Screen Crossmatch 01/06/23 01/06/23 Range/Units 19:42 19:44 WBC (4.8-10.8) K/ul RBC (4.20-5.40) M/uL Hgb (12.0-16.0) g/dl Hct (37.0-47.0) % MCV (80.0-100.0) fL MCH (25.0-34.0) pg MCHC (32.0-36.0) g/dL RDW Std Deviation (36.4-46.3) fL RDW Coeff of Reginaldo (11.5-14.5) % Plt Count (130-400) K/uL MPV (9.4-12.4) fL Immature Gran % (Auto) % Neut % (Auto) % Lymph % (Auto) % Polk % (Auto) % Eos % (Auto) % Baso % (Auto) % Neut # (Auto) (1.40-6.50) K/uL Lymph # (Auto) (1.2-3.4) K/uL Polk # (Auto) (0.11-0.59) K/uL Eos # (Auto) (0-0.50) K/uL Baso # (Auto) (0-0.2) K/uL Immature Gran # (Auto) (0.01-0.20) K/uL Hypochromasia Microcytosis Tear Drop Cells PT INR APTT PTT Ratio Sodium (136-145) mmol/L Potassium (3.5-5.1) mmol/L Chloride (98-107) mmol/L Carbon Dioxide (21-32) mmol/L Anion Gap (3-11) BUN (6-23) mg/dl Creatinine (0.6-1.2) mg/dl Est Cr Clr Drug Dosing ml/min Est GFR ( Amer) ml/min Est GFR (Non-Af Amer) ml/min BUN/Creatinine Ratio (10-20) Glucose (70-99(Fasting)) mg/dl Calcium (8.6-10.3) mg/dl Magnesium (1.7-2.4) mg/dl Total Bilirubin (0.2-1.0) mg/dl AST (13-39) U/L ALT (7-52) U/L Alkaline Phosphatase (34-104) U/L Troponin I High Sens (0-14) pg/ml B-Natriuretic Peptide (0-100) pg/ml Total Protein (6.0-8.3) gm/dl Albumin (3.4-5.0) gm/dl Globulin (2.5-4.0) gm/dl Albumin/Globulin Ratio (0.9-2) Lipase (11-82) U/L TSH (0.300-4.500) uIu/ml Nasal Screen MRSA (PCR) Negative (Negative) Adenovirus (PCR) (NotDetected) Anaplasma Smear B. pertussis DNA (PCR) (NotDetected) B.parapertussis DNA PCR (NotDetected) Lyme Disease IgG Ab (Negative) Lyme Disease IgM Ab (Negative) C. pneumoniae DNA (PCR) (NotDetected) Coronavirus OC43 (PCR) (NotDetected) Coronavirus HKU1 (PCR) (NotDetected) Coronavirus 229E (PCR) (NotDetected) SARS-CoV-2 (PCR) (NotDetected) Coronavirus NL63 (PCR) (NotDetected) Human Metapneumovir PCR (NotDetected) Influenza Type A (PCR) (NotDetected) Influenza Type B (PCR) (NotDetected) M. pneumoniae (PCR) (NotDetected) Parainfluenza 1 (PCR) (NotDetected) Parainfluenza 2 (PCR) (NotDetected) Parainfluenza 3 (PCR) (NotDetected) Parainfluenza 4 (PCR) (NotDetected) RSV (PCR) (NotDetected) Entero/Rhino (PCR) (NotDetected) Blood Type A Positive Antibody Screen POSITIVE A Crossmatch See Detail Imaging Data Attestation: I personally reviewed and interpreted this imaging study as follows: My Impression: Chest x-rayno acute infiltrate, failure, pneumothorax seen. Chest CTAno definite PE seen Radiologist's Impression: Chest CTA 01/06/23 19:29 Exam(s): CTA CHEST IV Amt: 121 ml optiray 320 EXAM: CT Angiography Chest With Intravenous Contrast CLINICAL HISTORY: Reason for exam: PE. TECHNIQUE: Axial computed tomographic angiography images of the chest with intravenous contrast. CTDI is 17.36 mGy and DLP is 582.31 mGy-cm. Automated exposure control was utilized for the study. A dose lowering technique was utilized adhering to the principles of ALARA. MIP reconstructed images were created and reviewed. COMPARISON: CT chest 08/03/21 FINDINGS: Pulmonary arteries: Unremarkable. Normal caliber main pulmonary artery. No evidence of acute pulmonary embolism as visualized; respiratory motion obscures the lower lobe subsegmental branches. Aorta: No acute findings. No thoracic aortic aneurysm or dissection. Lungs: Unremarkable. No mass. No consolidation. Pleural space: Unremarkable. No significant effusion. No pneumothorax. Heart: Stable heart size. No significant coronary artery atherosclerosis. No right ventricular strain. No pericardial effusion. Bones/joints: No acute fracture or dislocation. Posterior fixation hardware in the lower cervical spine extending to the T1 level. Old left rib fractures. Soft tissues: Unremarkable. Lymph nodes: Unremarkable. No adenopathy. Gallbladder and bile ducts: Cholecystectomy. Adrenals: Stable benign left adrenal adenoma. Tubes, lines and devices: Right chest wall port catheter with tip in the distal SVC. IMPRESSION: 1. No evidence of acute pulmonary embolism as visualized. 2. No acute findings in the chest. Electronically signed by: Sujit Taveras M.D. 01/06/23 20:32 PM ECG Data Attestation: I personally reviewed and interpreted this ECG as follows: Indication: + chest pain and + SOB/dyspnea Rate (beats per minute): 124 Rhythm: + sinus tachycardia ECG Intervals/blocks: + Normal QRS, + Normal QT and + Normal HI ECG Lisco: + Normal ECG ST segments: + Normal ST segments ECG Findings: + Poor R wave progression; no PACs or no PVCs Comparison ECG Date: from (08/06/21) Change: the following changes noted (Rate has increased otherwise no significant change) MDM Narrative This patient comes in as described above. She was placed in room B7. There was concern that she was in A-fib in the office at present she has a sinus tachycardia and does not appear to be in A-fib both on the EKG and monitor. She does have an a port which she is not sure if it works or not we are either going to access that or get a peripheral IV and. Blood work was ordered as well as a chest x-ray. She is not hypoxemic and otherwise appears in no significant distress. Bio fire was negative for COVID and other respiratory pathogens chest x-ray was clear. EKG does not suggest ischemic changes or ectopy. She has no significant acrylate or metabolic abnormalities it would and it was noted that her hemoglobin was 8.4 she is down from 11. She says she tends to get transfused about every 6 months. I did type and screen her based on this. I also did a CT angiography and there is no evidence of PE. Her BNP is normal which would go against CHF. Her troponin thus far is unremarkable. I do think she needs to be admitted/observed is possible that she is symptomatic from her anemia but she may need further cardiac work-up as well. I have discussed the case at length with Dr. Olivo, who is on-call for the [facility] and he will see her in the ER for these measures. Continuous cardiac monitoring: Orders placed in EMR for continuous surveillance monitor: Upon my evaluation the patient was noted to be in sinus tachycardia with a rate of 110. Impression & Plan Chest pain, Palpitation, Sinus tachycardia, Cough, Anemia, Lab test negative for COVID-19 virus, Shortness of breath Discharge Plan Visit Data Chief Complaint: Cardiac Assessment Stated Complaint: A FIB ED Provider: Yariel Alicia Discharge Problem: Chest pain, Palpitation, Sinus tachycardia, Cough, Anemia, Lab test negative for COVID-19 virus, Shortness of breath Patient Disposition: Admitted As Inpatient Discharge Instructions Interventions: ED Discharge Assessment Last Done: 01/06/23 22:49
[2023-01-06 18:43] LABS: Hematocrit (blood only) 31.2 % (37.0-47.0); Hemoglobin 8.4 g/dl (12.0-16.0); Mean Corpuscular Hemoglobin 17.9 pg (25.0-34.0); Mean Corpuscular Hgb Conc 26.9 g/dL (32.0-36.0); Mean Corpuscular Volume 66.7 fL (80.0-100.0); Mean Platelet Volume 10.5 fL (9.4-12.4); Platelet Count 451 K/uL (130-400); RDW Coefficient of Variation 18.3 % (11.5-14.5); RDW Standard Deviation 42.7 fL (36.4-46.3); Red Blood Count 4.68 M/uL (4.20-5.40)
[2023-01-06 18:45] LABS: Albumin Globulin Ratio 1.5 (0.9-2); Albumin Level 4.1 gm/dl (3.4-5.0); BUN Creatinine Ratio 18.4 (10-20); Bilirubin,Total 0.3 mg/dl (0.2-1.0); Calcium 9.6 mg/dl (8.6-10.3); Creatinine Clr Calc Pharmacy 54.2 ml/min; Est GFR (African American) 72.2 ml/min; Est GFR (Non-African American) 62.3 ml/min; Globulin 2.8 gm/dl (2.5-4.0); Potassium 3.9 mmol/L (3.5-5.1); Total Protein 6.9 gm/dl (6.0-8.3)
[2023-01-06 18:51] LABS: Basophils # (auto) 0.06 K/uL (0-0.2); Basophils % (auto) 0.7 %; Eosinophils # (auto) 0.17 K/uL (0-0.50); Hypochromasia Present; Immature Granulocytes # (auto) 0.02 K/uL (0.01-0.20); Immature Granulocytes % (auto) 0.2 %; Lymphocytes # (auto) 1.75 K/uL (1.2-3.4); Lymphocytes % (auto) 20.1 %; Microcytosis Present; Monocytes # (auto) 0.69 K/uL (0.11-0.59); Monocytes % (auto) 7.9 %; Neutrophils # (auto) 6.01 K/uL (1.40-6.50); Neutrophils % (auto) 69.1 %; Tear Drop Cells 1+
[2023-01-06 18:52] LABS: Troponin I High Sensitivity 11.4 pg/ml (0-14)
[2023-01-06 19:21] LABS: Lyme Ab IgG w/WB Rflx Negative (Negative); Lyme Ab IgM w/WB Rflx Negative (Negative)
[2023-01-06 19:30] LABS: Adenovirus PCR Not Detected (NotDetected); Bordetella parapertussis PCR Not Detected (NotDetected); Bordetella pertussis PCR Not Detected (NotDetected); Chlamydia pneumoniae PCR Not Detected (NotDetected); Coronavirus 229E PCR Not Detected (NotDetected); Coronavirus CoV-2 (COVID19)PCR Not Detected (NotDetected); Coronavirus HKU1 PCR Not Detected (NotDetected); Coronavirus NL63 PCR Not Detected (NotDetected); Coronavirus OC43PCR Not Detected (NotDetected); Human Metapneumovirus PCR Not Detected (NotDetected); Influenza A PCR Not Detected (NotDetected); Influenza B PCR Not Detected (NotDetected); Mycoplasma pneumoniae PCR Not Detected (NotDetected); Parainfluenza Virus 1 PCR Not Detected (NotDetected); Parainfluenza Virus 2 PCR Not Detected (NotDetected); Parainfluenza Virus 3 PCR Not Detected (NotDetected); Parainfluenza Virus 4 PCR Not Detected (NotDetected); Respiratory Syncytial VirusPCR Not Detected (NotDetected); Rhinovirus/Enterovirus PCR Not Detected (NotDetected)
[2023-01-06] MEDS ORDERED: POTASSIUM CHLORIDE CRTAB 20 MEQ TABCR PO STA (19:48)
[2023-01-06] MEDS ORDERED: VERAPAMIL HCL 40 MG TAB PO STA (19:53)
[2023-01-06] MEDS ORDERED: OPTIRAY 320 125ml IV ONE (20:09)
[2023-01-06] MEDS ORDERED: traMADol HCL 50 MG TABLET PO STA (20:32)
[2023-01-06] MEDS ORDERED: Heparin IV Adult Wt-Based Low-Dose *NO* Bolus Protocol IV SCH (20:32)
--- NOTE | 2023-01-06 20:32 | CT Scan Report ---
Exam(s): CTA CHEST IV Amt: 121 ml optiray 320 EXAM: CT Angiography Chest With Intravenous Contrast CLINICAL HISTORY: Reason for exam: PE. TECHNIQUE: Axial computed tomographic angiography images of the chest with intravenous contrast. CTDI is 17.36 mGy and DLP is 582.31 mGy-cm. Automated exposure control was utilized for the study. A dose lowering technique was utilized adhering to the principles of ALARA. MIP reconstructed images were created and reviewed. COMPARISON: CT chest 08/03/21 FINDINGS: Pulmonary arteries: Unremarkable. Normal caliber main pulmonary artery. No evidence of acute pulmonary embolism as visualized; respiratory motion obscures the lower lobe subsegmental branches. Aorta: No acute findings. No thoracic aortic aneurysm or dissection. Lungs: Unremarkable. No mass. No consolidation. Pleural space: Unremarkable. No significant effusion. No pneumothorax. Heart: Stable heart size. No significant coronary artery atherosclerosis. No right ventricular strain. No pericardial effusion. Bones/joints: No acute fracture or dislocation. Posterior fixation hardware in the lower cervical spine extending to the T1 level. Old left rib fractures. Soft tissues: Unremarkable. Lymph nodes: Unremarkable. No adenopathy. Gallbladder and bile ducts: Cholecystectomy. Adrenals: Stable benign left adrenal adenoma. Tubes, lines and devices: Right chest wall port catheter with tip in the distal SVC. IMPRESSION: 1. No evidence of acute pulmonary embolism as visualized. 2. No acute findings in the chest. Electronically signed by: Sujit Taveras M.D. 01/06/23 20:32 PM
[2023-01-06] MEDS ORDERED: guaiFENesin 600 MG TABCR PO STA (20:33)
[2023-01-06] MEDS ORDERED: BENZONATATE 100 MG CAPSULE PO ONE (20:33)
[2023-01-06] MEDS ORDERED: FUROSEMIDE INJ 20 MG/2 ML VIAL IV ONE (20:35)
[2023-01-06] MEDS ORDERED: PROMETHAZINE HCL 6.25 MG in SODIUM CHLORIDE 0.9% 50 ML IV PRN (20:41)
[2023-01-06] MEDS ORDERED: SODIUM CHLORIDE 0.9% 250 ML IV PRN (20:41)
[2023-01-06] MEDS ORDERED: HEPARIN SODIUM/DEXTROSE 25,000 UNITS/500 ML BAG IV SCH (20:45)
[2023-01-06 20:58] LABS: INR 1.1 (0.9-1.1); Partial Thromboplastin Ratio 0.8; Partial Thromboplastin Time 22.2 Seconds (21.0-31.0); Prothrombin Time 11.7 Seconds (9.0-12.0)
--- NOTE | 2023-01-06 22:13 | History & Physical Report ---
Date of Service January 06, 2023 Assessment & Plan (1) PAF (paroxysmal atrial fibrillation): Plan: Transient A-fib noted on outpatient EKG, new onset History of PAT as per records Patient currently NSR. Fluid retention possible right-sided heart failure Rule out pulmonary hypertension hx asthma/COPD; CYNTHIA/narcolepsy, patient unable to comply with CPAP last 3 years since device recall hx history idiopathic cardiac arrest/VT hypertension, slightly elevated hyperlipidemia/statin intolerance symptomatic anemia, hemoglobin drop from baseline, hx CHARLES secondary to celiac disease as per records, intermittent PRBC administration/iron injections given outpatient as per her account hx GERD/irritable bowel syndrome hypothyroidism, euthyroid as of today's TSH Hyperglycemia, likely prediabetes, hemoglobin A1c of 5.9 last year PCU Titrate home calcium channel harsha (patient has history of beta-harsha intolerance) IV heparin for thromboembolic prophylaxis Lasix 1 dose now for possible right-sided CHF Strict I/Os, daily weights, CHF education TTE, Cardiology consult Re: PAF, possible CHF Transfuse 1 unit packed RBC for symptomatic anemia. (Patient does not feel well when hemoglobin less than 9 as per her account.) Outpatient follow-up with sleep medicine, patient needs new CPAP machine Update hemoglobin A1c DVT prophylaxis IV heparin Full code Text document was generated using [employer] voice recognition software. It may contain grammatical or spelling errors. Kindly contact undersigned for clarification of any documentation item in question. Admission and Anticipated Discharge Date Admission Date: January 06, 2023 History of Present Illness Chief Complaint: Abnormal EKG, A-fib Primary Care Provider: Christiano Muñoz MD History obtained from patient and records. Medical history is significant for history idiopathic cardiac arrest/VT, PAT, hypertension, hyperlipidemia/statin intolerance, asthma/COPD, CYNTHIA/narcolepsy as per records (currently CPAP noncompliant), celiac disease, chronic anemia (baseline hemoglobin 8-10,), GERD, irritable bowel syndrome, hypothyroidism, endometriosis/PCOS, hx MRSA. Last confinement August 2021 for asthma exacerbation secondary to COVID-19 pneumonia. 10 days history of dry cough symptoms without fever or chills, malaise symptoms. Palpitations noted at home. No sinus congestion. Different from asthma attack as per patient. Pleuritic chest pain with worsening shortness of breath especially with exertion. Weight gain of more than 10 pounds in the last week with leg swelling. Usual migraine headache symptoms, no belly pain/black/bloody stools. Denies OTC decongestant intake. Patient unable to comply with CPAP for CYNTHIA last 3 years since her device was recalled. Patient seen at PCPs office today. Atrial fibrillation noted on EKG Patient sent to the ER for evaluation. MEDICAL HISTORY: As above. SURGICAL HISTORY: TAHBSO, cholecystectomy, appendectomy, ankle surgery, knee surgery, nasal reconstruction, sinus surgery, finger tendon sheath surgery FAMILY HISTORY: Family history of unknown. Patient is adopted. PERSONAL/SOCIAL HISTORY: Nonsmoker. No chronic intake of inatke of ETOH. 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 Allergies Allergy/AdvReac Type Severity Reaction Status Date / Time bee venom protein (honey bee) Allergy Severe ANAPHYLAXIS Verified 01/06/23 20:05 coconut Allergy Severe RASH; SOB Verified 01/06/23 20:05 gluten Allergy Severe CELIAC'S Verified 01/06/23 20:05 iron Allergy Severe SOB,TACHY Verified 01/06/23 20:05 WITH IV IRON latex Allergy Severe Anaphylaxis Verified 01/06/23 20:05 Penicillins Allergy Severe Anaphylaxis Verified 01/06/23 20:05 Sulfa (Sulfonamide Allergy Severe Anaphylaxis Verified 01/06/23 20:05 Antibiotics) ROBER Inhibitors Allergy Intermediate RASH/TACHYC Verified 01/06/23 20:05 ARDIA cefaclor Allergy Intermediate CECLOR--RASH/UPSET Verified 01/06/23 20:05 STOMACH egg Allergy Intermediate RASH & Verified 01/06/23 20:05 Bloating Influenza Virus Vaccines Allergy Intermediate rash and Verified 01/06/23 20:05 bloating lactose Allergy Intermediate RASH; Verified 01/06/23 20:05 BLOATING; DIARRHEA; VOMITING tetracycline Allergy Intermediate NAUSEA/VOMI Verified 01/06/23 20:05 TING/RASH Quinolones Allergy Unknown ALLERGY TO Verified 01/06/23 20:05 AVELOX ,CAN TAKE CIPRO OR LEVAQUIN W/O RXN Beta-Blockers AdvReac Intermediate intolerance Verified 01/06/23 20:44 (Beta-Adrenergic Bloc as per records Home Medications Medication Instructions Recorded Confirmed Type amitriptyline 75 mg tablet 75 mg PO HS 12/24/20 01/06/23 History cimetidine 400 mg tablet 400 mg PO BID 12/24/20 01/06/23 History ergocalciferol (vitamin D2) 1,250 1,250 mcg PO 2XWK 12/24/20 01/06/23 History mcg (50,000 unit) capsule (Vitamin D2) hyoscyamine sulfate 0.375 mg 0.375 mg PO Q6H PRN abd pain 12/24/20 01/06/23 History tablet,extended release,12 hr polyethylene glycol 3350 17 17 g PO QID PRN FOR AT LEAST 1 12/24/20 01/06/23 History gram/dose oral powder (Miralax) STOOL DAILY rabeprazole 20 mg tablet,delayed 40 mg PO BID 12/24/20 01/06/23 History release ropinirole 1 mg tablet 1 mg PO HS 12/24/20 01/06/23 History sucralfate 1 gram tablet (Carafate) 1 g PO ACHS 12/24/20 01/06/23 History topiramate 100 mg tablet (Topamax) 100 mg PO BID 12/24/20 01/06/23 History aspirin 81 mg tablet,delayed 81 mg PO DAILY 04/06/21 01/06/23 History release (Kerwin Low Dose Aspirin) fexofenadine 180 mg tablet 180 mg PO DAILY 05/08/21 01/06/23 History levothyroxine 100 mcg tablet 100 mcg PO DAILYBB 05/08/21 01/06/23 History montelukast 10 mg tablet 10 mg PO DAILY 05/08/21 01/06/23 History ondansetron 4 mg disintegrating 4 mg translingual Q8H PRN Nausea 05/08/21 History tablet azelastine 137 mcg (0.1 %) nasal 1 spray intranasal BID 01/06/23 01/06/23 History spray aerosol docusate sodium 100 mg capsule 100 mg PO BID PRN Constipation 01/06/23 01/06/23 History epinephrine 0.3 mg/0.3 mL 0.3 mg IM DIRECTED PRN Allergic 01/06/23 01/06/23 History injection, auto-injector (EpiPen) Reaction ferrous sulfate 325 mg (65 mg 325 mg PO QID 01/06/23 01/06/23 History iron) tablet fluticasone 250 mcg-salmeterol 50 1 inh inhalation BID 01/06/23 01/06/23 History mcg/dose blistr powdr for inhalation (Advair Diskus) galcanezumab-gnlm 120 mg/mL 120 mg subcut MONTHLY 01/06/23 01/06/23 History subcutaneous pen injector (Emgality Pen) ipratropium 20 mcg-albuterol 100 1 puff inhalation QID PRN USE IN 01/06/23 History mcg/actuation mist for inhalation PLACE OF XOPENEX IF NEEDED (Combivent Respimat) levalbuterol HCl 1.25 mg/3 mL 1.25 mg inhalation QID PRN 01/06/23 01/06/23 History solution for nebulization WHEEZING/SHORT OF BREATH mometasone 50 mcg/actuation nasal 2 spray intranasal BID 01/06/23 01/06/23 History spray multivitamin 1 tab PO DAILY 01/06/23 01/06/23 History sennosides 8.6 mg tablet (senna) 8.6 mg PO DAILY PRN Constipation 01/06/23 01/06/23 History triamcinolone acetonide 0.1 % 1 applic topical BID PRN 01/06/23 01/06/23 History topical cream PSORIASIS-ELBOWS/KNEES/HAIRLINE verapamil 40 mg tablet 80 mg PO DAILY 01/06/23 01/06/23 History Past Med/Surg History Medical History Adrenal cyst monitoring Anxiety Asthma, severe persistent Bloody diarrhea Celiac disease Chronic anemia Chronic back pain Chronic obstructive pulmonary disease Colitis with rectal bleeding Degenerative disc disease Dehydration Dyslipidemia Elevated LFTs Gastroparesis GERD (gastroesophageal reflux disease) Heart disease Hx of sepsis ~2017 treated at [facility]. Hypertension Hypothyroidism no current medication -- TSH normal without meds. IBS (irritable bowel syndrome) CHARLES (iron deficiency anemia) ferrous sulfate QID. Kidney stones no surgery Mitral valve prolapse follows with Dr Aguirre MRSA (methicillin resistant Staphylococcus aureus) 1999 dx nose septum wound 2019 dx in lungs Narcolepsy NSVT (nonsustained ventricular tachycardia) Osteoarthritis Sleep apnea CPAP -- have not used in about a year (it broke and has not yet been fixed) Surgical History History of arthroscopic knee surgery left History of bilateral tubal ligation History of section x1 History of colonoscopy History of dilatation and curettage History of esophagogastroduodenoscopy (EGD) Hx of cardiac cath "2010 - normal coronaries" Hx of cholecystectomy S/P nasal surgery S/P surgery on nasal septum "collapsed septum" s/p post op infection that "ate away the septum" S/P GLENNY-BSO Family History Other No family history of adverse response to anesthesia Social History Smoking Status: Never smoker Second Hand Exposure: No; Do You Dip or Chew Tobacco: No; Hx Alcohol Use: No Hx Substance Use: No Preferred Language: Micronesian Communication Ability: Effective 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 Beliefs That Will Affect Care: None marital status: Current Living Situation: Spouse and Family Current Living Situation Comment: and adult son Feels Safe at Home: Yes Assistive Devices: None Review of Systems Review of Systems: As per HPI, all other systems reviewed and negative Physical Exam Physical Exam: GENERAL: Comfortable, incessant dry cough, pleasant, no respiratory distress SKIN: Pallor, warm HEENT: Pale palpebral conjunctivae, no ptosis, dry buccal mucosa NECK : Supple, no tenderness CHEST : Decreased breath sounds, no tenderness HEART : Tachycardic, no obvious murmurs ABDOMEN: Some distention, no abdominal tenderness RECTAL : Intact sphincter, yellow stool (FOBT negative) EXTREMITIES : Minimal LE swelling, no LE tenderness, no other conspicuous deformities noted NEUROLOGIC : Coherent, no facial asymmetry, no other gross focality Results & Data Results & Data Vital Signs (Past 12 Hours) Vital Signs Temp Pulse Pulse Resp BP BP Pulse Ox 01/06/23 21:00 99 H 19 131/106 H 97 01/06/23 20:50 107 H 17 96 01/06/23 20:40 100 H 15 98 01/06/23 20:30 103 H 20 154/110 H 01/06/23 20:27 104 H 31 H 142/105 H 01/06/23 20:20 108 H 18 01/06/23 19:50 105 H 14 98 01/06/23 19:40 107 H 18 96 01/06/23 19:31 109 H 17 163/103 H 01/06/23 19:30 118 H 13 01/06/23 19:20 96 H 12 98 01/06/23 19:20 135/89 07/05/23 19:02 114 H 12 148/92 H 99 01/06/23 19:00 113 H 13 96 01/06/23 18:50 102 H 22 98 01/06/23 18:40 110 H 13 98 01/06/23 18:30 122 H 12 99 01/06/23 18:27 127 H 17 149/118 H 98 01/06/23 19:00 114 H 16 148/92 H 97 01/06/23 17:48 95 01/06/23 18:08 120 H 15 95 01/06/23 18:08 37.1 C 13 178/130 H 95 01/06/23 18:08 01/06/23 18:04 128 H 01/06/23 17:52 36.6 C 128 H 20 188/117 H 100 O2 Del Method O2 Flow Rate 01/06/23 21:00 01/06/23 20:50 01/06/23 20:40 01/06/23 20:30 01/06/23 20:27 01/06/23 20:20 01/06/23 19:50 01/06/23 19:40 01/06/23 19:31 01/06/23 19:30 01/06/23 19:20 01/06/23 19:20 01/06/23 19:02 01/06/23 19:00 01/06/23 18:50 01/06/23 18:40 01/06/23 18:30 01/06/23 18:27 01/06/23 19:00 Room Air 01/06/23 17:48 Room Air 0 01/06/23 18:08 01/06/23 18:08 Room Air 01/06/23 18:08 Room Air 01/06/23 18:04 01/06/23 17:52 Room Air Laboratory Results Laboratory Results WBC 8.70 K/ul (4.8-10.8) 01/06/23 18:15 RBC 4.68 M/uL (4.20-5.40) 01/06/23 18:15 Hgb 8.4 g/dl (12.0-16.0) L 01/06/23 18:15 Hct 31.2 % (37.0-47.0) L 01/06/23 18:15 MCV 66.7 fL (80.0-100.0) L 01/06/23 18:15 MCH 17.9 pg (25.0-34.0) L 01/06/23 18:15 MCHC 26.9 g/dL (32.0-36.0) L 01/06/23 18:15 RDW Std Deviation 42.7 fL (36.4-46.3) 01/06/23 18:15 RDW Coeff of Reginaldo 18.3 % (11.5-14.5) H 01/06/23 18:15 Plt Count 451 K/uL (130-400) H 01/06/23 18:15 MPV 10.5 fL (9.4-12.4) 01/06/23 18:15 Immature Gran % (Auto) 0.2 % 01/06/23 18:15 Neut % (Auto) 69.1 % 01/06/23 18:15 Lymph % (Auto) 20.1 % 01/06/23 18:15 Baker % (Auto) 7.9 % 01/06/23 18:15 Eos % (Auto) 2.0 % 01/06/23 18:15 Baso % (Auto) 0.7 % 01/06/23 18:15 Neut # (Auto) 6.01 K/uL (1.40-6.50) 01/06/23 18:15 Lymph # (Auto) 1.75 K/uL (1.2-3.4) 01/06/23 18:15 Baker # (Auto) 0.69 K/uL (0.11-0.59) H 01/06/23 18:15 Eos # (Auto) 0.17 K/uL (0-0.50) 01/06/23 18:15 Baso # (Auto) 0.06 K/uL (0-0.2) 01/06/23 18:15 Immature Gran # (Auto) 0.02 K/uL (0.01-0.20) 01/06/23 18:15 Hypochromasia Present 01/06/23 18:15 Microcytosis Present 01/06/23 18:15 Tear Drop Cells 1+ 01/06/23 18:15 PT 11.7 Seconds (9.0-12.0) 01/06/23 19:42 INR 1.1 (0.9-1.1) 01/06/23 19:42 APTT 22.2 Seconds (21.0-31.0) 01/06/23 19:42 PTT Ratio 0.8 01/06/23 19:42 Sodium 141 mmol/L (136-145) 01/06/23 18:15 Potassium 3.9 mmol/L (3.5-5.1) 01/06/23 18:15 Chloride 109 mmol/L (98-107) H 01/06/23 18:15 Carbon Dioxide 24 mmol/L (21-32) 01/06/23 18:15 Anion Gap 8 (3-11) 01/06/23 18:15 BUN 18 mg/dl (6-23) 01/06/23 18:15 Creatinine 0.98 mg/dl (0.6-1.2) 01/06/23 18:15 Est Cr Clr Drug Dosing 54.2 ml/min 01/06/23 18:15 Est GFR ( Amer) 72.2 ml/min 01/06/23 18:15 Est GFR (Non-Af Amer) 62.3 ml/min 01/06/23 18:15 BUN/Creatinine Ratio 18.4 (10-20) 01/06/23 18:15 Glucose 111 mg/dl (70-99(Fasting)) H 01/06/23 18:15 Calcium 9.6 mg/dl (8.6-10.3) 01/06/23 18:15 Magnesium 2.0 mg/dl (1.7-2.4) 01/06/23 18:15 Total Bilirubin 0.3 mg/dl (0.2-1.0) 01/06/23 18:15 AST 24 U/L (13-39) 01/06/23 18:15 ALT 22 U/L (7-52) 01/06/23 18:15 Alkaline Phosphatase 111 U/L (34-104) H 01/06/23 18:15 Troponin I High Sens 11.4 pg/ml (0-14) 01/06/23 18:15 B-Natriuretic Peptide 96 pg/ml (0-100) 01/06/23 18:15 Total Protein 6.9 gm/dl (6.0-8.3) 01/06/23 18:15 Albumin 4.1 gm/dl (3.4-5.0) 01/06/23 18:15 Globulin 2.8 gm/dl (2.5-4.0) 01/06/23 18:15 Albumin/Globulin Ratio 1.5 (0.9-2) 01/06/23 18:15 Lipase 68 U/L (11-82) 01/06/23 18:15 TSH 3.376 uIu/ml (0.300-4.500) 01/06/23 18:15 Nasal Screen MRSA (PCR) Negative (Negative) 01/06/23 19:44 Adenovirus (PCR) Not Detected (NotDetected) 01/06/23 18:15 Anaplasma Smear See Comment 01/06/23 18:27 B. pertussis DNA (PCR) Not Detected (NotDetected) 01/06/23 18:15 B.parapertussis DNA PCR Not Detected (NotDetected) 01/06/23 18:15 Lyme Disease IgG Ab Negative (Negative) 01/06/23 18:15 Lyme Disease IgM Ab Negative (Negative) 01/06/23 18:15 C. pneumoniae DNA (PCR) Not Detected (NotDetected) 01/06/23 18:15 Coronavirus OC43 (PCR) Not Detected (NotDetected) 01/06/23 18:15 Coronavirus HKU1 (PCR) Not Detected (NotDetected) 01/06/23 18:15 Coronavirus 229E (PCR) Not Detected (NotDetected) 01/06/23 18:15 SARS-CoV-2 (PCR) Not Detected (NotDetected) 01/06/23 18:15 Coronavirus NL63 (PCR) Not Detected (NotDetected) 01/06/23 18:15 Human Metapneumovir PCR Not Detected (NotDetected) 01/06/23 18:15 Influenza Type A (PCR) Not Detected (NotDetected) 01/06/23 18:15 Influenza Type B (PCR) Not Detected (NotDetected) 01/06/23 18:15 M. pneumoniae (PCR) Not Detected (NotDetected) 01/06/23 18:15 Parainfluenza 1 (PCR) Not Detected (NotDetected) 01/06/23 18:15 Parainfluenza 2 (PCR) Not Detected (NotDetected) 01/06/23 18:15 Parainfluenza 3 (PCR) Not Detected (NotDetected) 01/06/23 18:15 Parainfluenza 4 (PCR) Not Detected (NotDetected) 01/06/23 18:15 RSV (PCR) Not Detected (NotDetected) 01/06/23 18:15 Entero/Rhino (PCR) Not Detected (NotDetected) 01/06/23 18:15 Blood Type A Positive 01/06/23 19:42 Antibody Screen POSITIVE A 01/06/23 19:42 Crossmatch See Detail 01/06/23 19:42 Impressions Chest CTA 01/06/23 19:29 Exam(s): CTA CHEST IV Amt: 121 ml optiray 320 EXAM: CT Angiography Chest With Intravenous Contrast CLINICAL HISTORY: Reason for exam: PE. TECHNIQUE: Axial computed tomographic angiography images of the chest with intravenous contrast. CTDI is 17.36 mGy and DLP is 582.31 mGy-cm. Automated exposure control was utilized for the study. A dose lowering technique was utilized adhering to the principles of ALARA. MIP reconstructed images were created and reviewed. COMPARISON: CT chest 08/03/21 FINDINGS: Pulmonary arteries: Unremarkable. Normal caliber main pulmonary artery. No evidence of acute pulmonary embolism as visualized; respiratory motion obscures the lower lobe subsegmental branches. Aorta: No acute findings. No thoracic aortic aneurysm or dissection. Lungs: Unremarkable. No mass. No consolidation. Pleural space: Unremarkable. No significant effusion. No pneumothorax. Heart: Stable heart size. No significant coronary artery atherosclerosis. No right ventricular strain. No pericardial effusion. Bones/joints: No acute fracture or dislocation. Posterior fixation hardware in the lower cervical spine extending to the T1 level. Old left rib fractures. Soft tissues: Unremarkable. Lymph nodes: Unremarkable. No adenopathy. Gallbladder and bile ducts: Cholecystectomy. Adrenals: Stable benign left adrenal adenoma. Tubes, lines and devices: Right chest wall port catheter with tip in the distal SVC. IMPRESSION: 1. No evidence of acute pulmonary embolism as visualized. 2. No acute findings in the chest. Electronically signed by: Sujit Taveras M.D. 01/06/23 20:32 PM Diagnostic Findings EKG as per my interpretation :Rate 125, sinus tachycardia, LAD, LAFB, T wave abnormalities inferior leads Code Status & VTE Plan VTE Prophylaxis Plan VTE Prophylaxis will be ordered: Yes
[2023-01-06] MEDS ORDERED: SENNA 8.6 MG TAB PO PRN (22:15)
[2023-01-06] MEDS ORDERED: DOCUSATE SODIUM 100 MG CAP PO PRN (22:15)
[2023-01-06] MEDS ORDERED: POLYETHYLENE (MIRALAX) 17 GM PACK PO PRN (22:15)
[2023-01-06] MEDS: FERROUS SULFATE 325 MG TAB PO SCH (23:30)
[2023-01-06] MEDS: AMITRIPTYLINE HCL 25 MG TAB PO SCH (23:30)
[2023-01-06] MEDS: TOPIRAMATE 100 MG TAB PO SCH (23:31)
[2023-01-06] MEDS: PANTOprazole 40 MG TAB PO SCH (23:32)
[2023-01-06] MEDS: rOPINIRole HCL 1 MG TABLET PO SCH (23:32)
[2023-01-06] MEDS: SUCRALFATE 1 GM TAB PO SCH (23:32)
[2023-01-06] MEDS: FAMOTIDINE 40 MG TABLET PO SCH (23:34)
[2023-01-06] MEDS: AZELASTINE HCL 0.1% NASAL 200 SPRAYS/27,400 MCG BTL SCH (23:36)
[2023-01-07] MEDS ORDERED: HEPARIN 100 UNIT/ML 5ML FLUSH FLUSH PRN (01:08)
[2023-01-07] MEDS: LEVOTHYROXINE SODIUM 100 MCG TABLET PO SCH (06:14)
[2023-01-07 06:48] LABS: Hematocrit (blood only) 25.1 % (37.0-47.0); Mean Corpuscular Hemoglobin 18.1 pg (25.0-34.0); Mean Corpuscular Hgb Conc 27.9 g/dL (32.0-36.0); Mean Corpuscular Volume 64.9 fL (80.0-100.0); Mean Platelet Volume 10.4 fL (9.4-12.4); Platelet Count 358 K/uL (130-400); RDW Coefficient of Variation 18.3 % (11.5-14.5); RDW Standard Deviation 42.4 fL (36.4-46.3); Red Blood Count 3.87 M/uL (4.20-5.40); White Blood Count 6.47 K/ul (4.8-10.8)
--- NOTE | 2023-01-07 06:48 | Ultrasound Report ---
ULTRASOUND BILATERAL LOWER EXTREMITY VENOUS CLINICAL HISTORY: Low extremity edema. COMPARISON STUDY: Bilateral lower extremity venous ultrasound dated 02/08/2012. TECHNIQUE: Real-time, grayscale, and color Doppler sonography of the deep veins of the right and left lower extremity was performed from the inguinal crease to the calf. Compression and augmentation wer e utilized. FINDINGS: There is no sonographic evidence of deep venous thrombosis identified in the right or left lower extremity. The common femoral, superficial femoral, and popliteal veins are patent and normally compressible bilaterally. The greater saphenous vein and the profunda femoris vein at the junction w ith the common femoral vein are clear in both legs. The visualized calf veins are patent bilaterally. A right popliteal cyst measures 2.3 x 1.1 x 1.7 cm and a left popliteal cyst measures 1.8 x 0.6 x 2. 1 cm. IMPRESSION: 1. There is no sonographic evidence of deep venous thrombosis identified in the right or left lower e xtremity. 2. Bilateral popliteal cysts. ACT 112: Negative or not required by law. Electronically signed by: Demetrius Bruce M.D. 01/07/2023 6:47 AM
[2023-01-07 06:57] LABS: BUN Creatinine Ratio 19.5 (10-20); Calcium 8.4 mg/dl (8.6-10.3); Creatinine Clr Calc Pharmacy 64.8 ml/min; Est GFR (African American) 89.5 ml/min; Est GFR (Non-African American) 77.2 ml/min; Potassium 3.4 mmol/L (3.5-5.1)
[2023-01-07 07:07] LABS: Partial Thromboplastin Ratio 1.1
[2023-01-07 07:08] LABS: Anisocytosis Present; Basophils # (auto) 0.03 K/uL (0-0.2); Basophils % (auto) 0.5 %; Eosinophils # (auto) 0.17 K/uL (0-0.50); Eosinophils % (auto) 2.6 %; Immature Granulocytes # (auto) 0.01 K/uL (0.01-0.20); Immature Granulocytes % (auto) 0.2 %; Lymphocytes # (auto) 0.86 K/uL (1.2-3.4); Lymphocytes % (auto) 13.3 %; Monocytes # (auto) 0.39 K/uL (0.11-0.59); Neutrophils # (auto) 5.01 K/uL (1.40-6.50); Neutrophils % (auto) 77.4 %
--- NOTE | 2023-01-07 07:28 | XRay Report ---
SINGLE VIEW CHEST CLINICAL HISTORY: Atypical chest pain. FINDINGS: An AP, portable, upright chest radiograph is compared to chest x-ray and chest CT dated 07/07. A right internal jugular central venous infusion port is unchanged in position. The heart is enlarged noting atherosclerotic calcification of the thoracic aorta. The pulmonary vasculature is non congested. Chronic interstitial thickening similar to previous. The lungs and pleural spaces are bridgette r noting bibasilar scarring/atelectasis. No pneumothorax is seen. The skeletal structures are osteope meenu. The bony thorax is grossly intact. Fusion hardware is noted in the lower cervical spine. Cholecy stectomy clips are seen in the right upper quadrant. IMPRESSION: Cardiomegaly with no active disease in the chest. ACT 112: Negative or not required by law. Electronically signed by: Demetrius Bruce M.D. 01/07/2023 7:26 AM
[2023-01-07] MEDS ORDERED: HEPARIN SOD (PORCINE) 1000 UNIT/ML IV ONE (07:30)
[2023-01-07] MEDS ORDERED: diphenhydrAMINE 50 MG/ML VIAL IV STA (07:50)
[2023-01-07] MEDS ORDERED: diphenhydrAMINE 50 MG/ML VIAL ONE (07:52)
[2023-01-07 07:57] LABS: Estimated Average Glucose 143 mg/dl; Hemoglobin A1C 6.6 % (4.5-5.6)
[2023-01-07] MEDS: ACETAMINOPHEN 325 MG TAB PO PRN ×3 (07:57→21:37)
[2023-01-07] MEDS: guaiFENesin 600 MG TABCR PO SCH ×2 (08:06→20:04)
[2023-01-07] MEDS: ASPIRIN 81 MG ECTAB PO SCH (08:06)
[2023-01-07] MEDS: FAMOTIDINE 40 MG TABLET PO SCH (08:06)
[2023-01-07] MEDS: FERROUS SULFATE 325 MG TAB PO SCH ×4 (08:07→20:08)
[2023-01-07] MEDS: FEXOFENADINE HCL 180 MG TAB PO SCH (08:07)
[2023-01-07] MEDS: MONTELUKAST SODIUM 10 MG TABLET PO SCH (08:07)
[2023-01-07] MEDS: MULTIVITAMIN TAB PO SCH (08:07)
[2023-01-07] MEDS: TOPIRAMATE 100 MG TAB PO SCH ×2 (08:07→20:06)
[2023-01-07] MEDS: SUCRALFATE 1 GM TAB PO SCH ×4 (08:07→20:02)
[2023-01-07] MEDS: VERAPAMIL HCL 40 MG TAB PO SCH ×2 (08:07→20:06)
[2023-01-07] MEDS: PANTOprazole 40 MG TAB PO SCH ×2 (08:07→20:05)
[2023-01-07] MEDS: AZELASTINE HCL 0.1% NASAL 200 SPRAYS/27,400 MCG BTL SCH ×2 (08:08→20:07)
[2023-01-07] MEDS: FLUTICASONE PROPIONATE NA SPR 16 GM BTL SCH (08:10)
[2023-01-07] MEDS: FLUTICASONE/VILANTEROL 200/25MCG 14 PUFFS/INHALER INH SCH (08:10)
--- NOTE | 2023-01-07 08:25 | Hospitalist Progress Note ---
Date of Service January 07, 2023 Assessment & Plan (1) PAF (paroxysmal atrial fibrillation): Plan: Transient A-fib noted on outpatient EKG, new onset History of PAT as per records Patient currently NSR. 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 LV wall motion is normal. LV systolic function is normal. LVEF 55%. There is mild tricuspid regurg. Doppler findings do not suggest pulmonary hypertension Cardiology consulted Re: PAF, possible CHF Agree w/ increased dose of verapamil 80 bid, not a candidate for anticoagulation- cont. w/ ASA 81 daily,, euvolemic at this time Outpatient follow-up with sleep medicine, patient needs new CPAP machine Update hemoglobin A1c hx GERD/irritable bowel syndrome hypothyroidism, euthyroid as of current TSH Hyperglycemia, likely prediabetes, hemoglobin A1c of 5.9 last year DVT prophylaxis IV heparin stopped -> SCDs Full code Admission and Anticipated Discharge Date Admission Date: January 06, 2023 Subjective Pt seen in follow up of Afib new as outpt, here in sinus rhythm, pt also anemic requiring blood transfusion Currently lying in bed, in no acute distress, receiving blood transfusion Discussed with cardiology at the bedside Hemoglobin dropped to 7 this morning, IV heparin was stopped Currently denies any chest pain shortness of breath, overall comfortable. Denies any blood in the stool/ dark stools. FOBT negative per admitting provider. Review of Systems Review of Systems: All systems reviewed & are unremarkable except as noted in Subjective Physical Exam Physical Exam: GENERAL: WD/WN F in no respiratory distress SKIN: Pallor, warm HEENT: NC/AT, EOMI, Pale palpebral conjunctivae NECK : Supple, no tenderness CHEST : Decreased breath sounds, no tenderness HEART : RRR, no obvious murmurs ABDOMEN: Some distention, no abdominal tenderness EXTREMITIES : Minimal LE swelling, no LE tenderness, moves extremities NEUROLOGIC : Coherent, no facial asymmetry, speech fluent, moves extremities Results & Data Results & Data Vital Signs (Past 12 Hours) Vital Signs Temp Pulse Pulse Resp BP BP Pulse Ox 01/07/23 08:17 36.3 C L 97 H 16 136/81 98 01/07/23 07:58 36.7 C 74 16 126/82 98 01/07/23 07:37 70 01/07/23 07:24 36.8 C 77 16 118/73 98 01/07/23 03:52 37.0 C 73 20 92/58 L 97 01/06/23 22:50 103 H 01/06/23 22:30 01/06/23 22:49 01/06/23 22:16 37.7 C H 102 H 16 151/100 H 96 01/06/23 21:00 99 H 19 131/106 H 97 01/06/23 20:50 107 H 17 96 01/06/23 20:40 100 H 15 98 01/06/23 20:30 103 H 20 154/110 H 01/06/23 20:27 104 H 31 H 142/105 H O2 Del Method 01/07/23 08:17 01/07/23 07:58 01/07/23 07:37 01/07/23 07:24 Room Air 01/07/23 03:52 Room Air 01/06/23 22:50 01/06/23 22:30 Room Air 01/06/23 22:49 Room Air 01/06/23 22:16 Room Air 01/06/23 21:00 01/06/23 20:50 01/06/23 20:40 01/06/23 20:30 01/06/23 20:27 Laboratory Results 01/07/23 01/07/23 01/07/23 Range/Units 06:12 06:12 06:12 WBC (4.8-10.8) K/ul RBC (4.20-5.40) M/uL Hgb (12.0-16.0) g/dl Hct (37.0-47.0) % MCV (80.0-100.0) fL MCH (25.0-34.0) pg MCHC (32.0-36.0) g/dL RDW Std Deviation (36.4-46.3) fL RDW Coeff of Reginaldo (11.5-14.5) % Plt Count (130-400) K/uL MPV (9.4-12.4) fL Immature Gran % (Auto) % Neut % (Auto) % Lymph % (Auto) % [place] % (Auto) % Eos % (Auto) % Baso % (Auto) % Neut # (Auto) (1.40-6.50) K/uL Lymph # (Auto) (1.2-3.4) K/uL [place] # (Auto) (0.11-0.59) K/uL Eos # (Auto) (0-0.50) K/uL Baso # (Auto) (0-0.2) K/uL Immature Gran # (Auto) (0.01-0.20) K/uL Hypochromasia Anisocytosis Microcytosis Tear Drop Cells Peripher Smr Path Cons Pending PT INR APTT 31.0 PTT Ratio 1.1 Sodium 139 (136-145) mmol/L Potassium 3.4 L (3.5-5.1) mmol/L Chloride 108 H (98-107) mmol/L Carbon Dioxide 23 (21-32) mmol/L Anion Gap 8 (3-11) BUN 16 (6-23) mg/dl Creatinine 0.82 (0.6-1.2) mg/dl Est Cr Clr Drug Dosing 64.8 ml/min Est GFR ( Amer) 89.5 ml/min Est GFR (Non-Af Amer) 77.2 ml/min BUN/Creatinine Ratio 19.5 (10-20) Glucose 102 H (70-99(Fasting)) mg/dl Estimat Average Glucose mg/dl Hemoglobin A1c (4.5-5.6) % Calcium 8.4 L (8.6-10.3) mg/dl Magnesium (1.7-2.4) mg/dl Total Bilirubin (0.2-1.0) mg/dl AST (13-39) U/L ALT (7-52) U/L Alkaline Phosphatase (34-104) U/L Troponin I High Sens (0-14) pg/ml B-Natriuretic Peptide (0-100) pg/ml Total Protein (6.0-8.3) gm/dl Albumin (3.4-5.0) gm/dl Globulin (2.5-4.0) gm/dl Albumin/Globulin Ratio (0.9-2) Lipase (11-82) U/L TSH (0.300-4.500) uIu/ml Nasal Screen MRSA (PCR) (Negative) Adenovirus (PCR) (NotDetected) Anaplasma Smear A. phagocytophilum DNA B. pertussis DNA (PCR) (NotDetected) B.parapertussis DNA PCR (NotDetected) Lyme Disease IgG Ab (Negative) Lyme Disease IgM Ab (Negative) C. pneumoniae DNA (PCR) (NotDetected) Coronavirus OC43 (PCR) (NotDetected) Coronavirus HKU1 (PCR) (NotDetected) Coronavirus 229E (PCR) (NotDetected) SARS-CoV-2 (PCR) (NotDetected) Coronavirus NL63 (PCR) (NotDetected) Human Metapneumovir PCR (NotDetected) Influenza Type A (PCR) (NotDetected) Influenza Type B (PCR) (NotDetected) M. pneumoniae (PCR) (NotDetected) Parainfluenza 1 (PCR) (NotDetected) Parainfluenza 2 (PCR) (NotDetected) Parainfluenza 3 (PCR) (NotDetected) Parainfluenza 4 (PCR) (NotDetected) RSV (PCR) (NotDetected) Entero/Rhino (PCR) (NotDetected) Blood Type Antibody Screen Antibody Identification Antibody ID Comment Antigen Identification Crossmatch 01/07/23 01/06/23 01/06/23 Range/Units 06:12 19:44 19:43 WBC 6.47 (4.8-10.8) K/ul RBC 3.87 L (4.20-5.40) M/uL Hgb 7.0 L (12.0-16.0) g/dl Hct 25.1 L (37.0-47.0) % MCV 64.9 L (80.0-100.0) fL MCH 18.1 L (25.0-34.0) pg MCHC 27.9 L (32.0-36.0) g/dL RDW Std Deviation 42.4 (36.4-46.3) fL RDW Coeff of Reginaldo 18.3 H (11.5-14.5) % Plt Count 358 (130-400) K/uL MPV 10.4 (9.4-12.4) fL Immature Gran % (Auto) 0.2 % Neut % (Auto) 77.4 % Lymph % (Auto) 13.3 % [place] % (Auto) 6.0 % Eos % (Auto) 2.6 % Baso % (Auto) 0.5 % Neut # (Auto) 5.01 (1.40-6.50) K/uL Lymph # (Auto) 0.86 L (1.2-3.4) K/uL [place] # (Auto) 0.39 (0.11-0.59) K/uL Eos # (Auto) 0.17 (0-0.50) K/uL Baso # (Auto) 0.03 (0-0.2) K/uL Immature Gran # (Auto) 0.01 (0.01-0.20) K/uL Hypochromasia Anisocytosis Present Microcytosis Tear Drop Cells Peripher Smr Path Cons PT INR APTT PTT Ratio Sodium (136-145) mmol/L Potassium (3.5-5.1) mmol/L Chloride (98-107) mmol/L Carbon Dioxide (21-32) mmol/L Anion Gap (3-11) BUN (6-23) mg/dl Creatinine (0.6-1.2) mg/dl Est Cr Clr Drug Dosing ml/min Est GFR ( Amer) ml/min Est GFR (Non-Af Amer) ml/min BUN/Creatinine Ratio (10-20) Glucose (70-99(Fasting)) mg/dl Estimat Average Glucose 143 mg/dl Hemoglobin A1c 6.6 H (4.5-5.6) % Calcium (8.6-10.3) mg/dl Magnesium (1.7-2.4) mg/dl Total Bilirubin (0.2-1.0) mg/dl AST (13-39) U/L ALT (7-52) U/L Alkaline Phosphatase (34-104) U/L Troponin I High Sens (0-14) pg/ml B-Natriuretic Peptide (0-100) pg/ml Total Protein (6.0-8.3) gm/dl Albumin (3.4-5.0) gm/dl Globulin (2.5-4.0) gm/dl Albumin/Globulin Ratio (0.9-2) Lipase (11-82) U/L TSH (0.300-4.500) uIu/ml Nasal Screen MRSA (PCR) Negative (Negative) Adenovirus (PCR) (NotDetected) Anaplasma Smear A. phagocytophilum DNA B. pertussis DNA (PCR) (NotDetected) B.parapertussis DNA PCR (NotDetected) Lyme Disease IgG Ab (Negative) Lyme Disease IgM Ab (Negative) C. pneumoniae DNA (PCR) (NotDetected) Coronavirus OC43 (PCR) (NotDetected) Coronavirus HKU1 (PCR) (NotDetected) Coronavirus 229E (PCR) (NotDetected) SARS-CoV-2 (PCR) (NotDetected) Coronavirus NL63 (PCR) (NotDetected) Human Metapneumovir PCR (NotDetected) Influenza Type A (PCR) (NotDetected) Influenza Type B (PCR) (NotDetected) M. pneumoniae (PCR) (NotDetected) Parainfluenza 1 (PCR) (NotDetected) Parainfluenza 2 (PCR) (NotDetected) Parainfluenza 3 (PCR) (NotDetected) Parainfluenza 4 (PCR) (NotDetected) RSV (PCR) (NotDetected) Entero/Rhino (PCR) (NotDetected) Blood Type Antibody Screen Antibody Identification Antibody ID Comment Antigen Identification Crossmatch 01/06/23 01/06/23 01/06/23 Range/Units 19:42 19:42 18:27 WBC (4.8-10.8) K/ul RBC (4.20-5.40) M/uL Hgb (12.0-16.0) g/dl Hct (37.0-47.0) % MCV (80.0-100.0) fL MCH (25.0-34.0) pg MCHC (32.0-36.0) g/dL RDW Std Deviation (36.4-46.3) fL RDW Coeff of Reginaldo (11.5-14.5) % Plt Count (130-400) K/uL MPV (9.4-12.4) fL Immature Gran % (Auto) % Neut % (Auto) % Lymph % (Auto) % [place] % (Auto) % Eos % (Auto) % Baso % (Auto) % Neut # (Auto) (1.40-6.50) K/uL Lymph # (Auto) (1.2-3.4) K/uL [place] # (Auto) (0.11-0.59) K/uL Eos # (Auto) (0-0.50) K/uL Baso # (Auto) (0-0.2) K/uL Immature Gran # (Auto) (0.01-0.20) K/uL Hypochromasia Anisocytosis Microcytosis Tear Drop Cells Peripher Smr Path Cons PT 11.7 INR 1.1 APTT 22.2 PTT Ratio 0.8 Sodium (136-145) mmol/L Potassium (3.5-5.1) mmol/L Chloride (98-107) mmol/L Carbon Dioxide (21-32) mmol/L Anion Gap (3-11) BUN (6-23) mg/dl Creatinine (0.6-1.2) mg/dl Est Cr Clr Drug Dosing ml/min Est GFR ( Amer) ml/min Est GFR (Non-Af Amer) ml/min BUN/Creatinine Ratio (10-20) Glucose (70-99(Fasting)) mg/dl Estimat Average Glucose mg/dl Hemoglobin A1c (4.5-5.6) % Calcium (8.6-10.3) mg/dl Magnesium (1.7-2.4) mg/dl Total Bilirubin (0.2-1.0) mg/dl AST (13-39) U/L ALT (7-52) U/L Alkaline Phosphatase (34-104) U/L Troponin I High Sens (0-14) pg/ml B-Natriuretic Peptide (0-100) pg/ml Total Protein (6.0-8.3) gm/dl Albumin (3.4-5.0) gm/dl Globulin (2.5-4.0) gm/dl Albumin/Globulin Ratio (0.9-2) Lipase (11-82) U/L TSH (0.300-4.500) uIu/ml Nasal Screen MRSA (PCR) (Negative) Adenovirus (PCR) (NotDetected) Anaplasma Smear A. phagocytophilum DNA Pending B. pertussis DNA (PCR) (NotDetected) B.parapertussis DNA PCR (NotDetected) Lyme Disease IgG Ab (Negative) Lyme Disease IgM Ab (Negative) C. pneumoniae DNA (PCR) (NotDetected) Coronavirus OC43 (PCR) (NotDetected) Coronavirus HKU1 (PCR) (NotDetected) Coronavirus 229E (PCR) (NotDetected) SARS-CoV-2 (PCR) (NotDetected) Coronavirus NL63 (PCR) (NotDetected) Human Metapneumovir PCR (NotDetected) Influenza Type A (PCR) (NotDetected) Influenza Type B (PCR) (NotDetected) M. pneumoniae (PCR) (NotDetected) Parainfluenza 1 (PCR) (NotDetected) Parainfluenza 2 (PCR) (NotDetected) Parainfluenza 3 (PCR) (NotDetected) Parainfluenza 4 (PCR) (NotDetected) RSV (PCR) (NotDetected) Entero/Rhino (PCR) (NotDetected) Blood Type A Positive Antibody Screen POSITIVE A Antibody Identification Anti-e Antibody ID Comment Antigen Identification e Antigen - NEGATIVE Crossmatch See Detail 01/06/23 01/06/23 01/06/23 Range/Units 18:27 18:15 18:15 WBC (4.8-10.8) K/ul RBC (4.20-5.40) M/uL Hgb (12.0-16.0) g/dl Hct (37.0-47.0) % MCV (80.0-100.0) fL MCH (25.0-34.0) pg MCHC (32.0-36.0) g/dL RDW Std Deviation (36.4-46.3) fL RDW Coeff of Reginaldo (11.5-14.5) % Plt Count (130-400) K/uL MPV (9.4-12.4) fL Immature Gran % (Auto) % Neut % (Auto) % Lymph % (Auto) % [place] % (Auto) % Eos % (Auto) % Baso % (Auto) % Neut # (Auto) (1.40-6.50) K/uL Lymph # (Auto) (1.2-3.4) K/uL [place] # (Auto) (0.11-0.59) K/uL Eos # (Auto) (0-0.50) K/uL Baso # (Auto) (0-0.2) K/uL Immature Gran # (Auto) (0.01-0.20) K/uL Hypochromasia Anisocytosis Microcytosis Tear Drop Cells Peripher Smr Path Cons PT INR APTT PTT Ratio Sodium (136-145) mmol/L Potassium (3.5-5.1) mmol/L Chloride (98-107) mmol/L Carbon Dioxide (21-32) mmol/L Anion Gap (3-11) BUN (6-23) mg/dl Creatinine (0.6-1.2) mg/dl Est Cr Clr Drug Dosing ml/min Est GFR ( Amer) ml/min Est GFR (Non-Af Amer) ml/min BUN/Creatinine Ratio (10-20) Glucose (70-99(Fasting)) mg/dl Estimat Average Glucose mg/dl Hemoglobin A1c (4.5-5.6) % Calcium (8.6-10.3) mg/dl Magnesium (1.7-2.4) mg/dl Total Bilirubin (0.2-1.0) mg/dl AST (13-39) U/L ALT (7-52) U/L Alkaline Phosphatase (34-104) U/L Troponin I High Sens (0-14) pg/ml B-Natriuretic Peptide (0-100) pg/ml Total Protein (6.0-8.3) gm/dl Albumin (3.4-5.0) gm/dl Globulin (2.5-4.0) gm/dl Albumin/Globulin Ratio (0.9-2) Lipase (11-82) U/L TSH (0.300-4.500) uIu/ml Nasal Screen MRSA (PCR) (Negative) Adenovirus (PCR) Not Detected (NotDetected) Anaplasma Smear See Comment A. phagocytophilum DNA B. pertussis DNA (PCR) Not Detected (NotDetected) B.parapertussis DNA PCR Not Detected (NotDetected) Lyme Disease IgG Ab Negative (Negative) Lyme Disease IgM Ab Negative (Negative) C. pneumoniae DNA (PCR) Not Detected (NotDetected) Coronavirus OC43 (PCR) Not Detected (NotDetected) Coronavirus HKU1 (PCR) Not Detected (NotDetected) Coronavirus 229E (PCR) Not Detected (NotDetected) SARS-CoV-2 (PCR) Not Detected (NotDetected) Coronavirus NL63 (PCR) Not Detected (NotDetected) Human Metapneumovir PCR Not Detected (NotDetected) Influenza Type A (PCR) Not Detected (NotDetected) Influenza Type B (PCR) Not Detected (NotDetected) M. pneumoniae (PCR) Not Detected (NotDetected) Parainfluenza 1 (PCR) Not Detected (NotDetected) Parainfluenza 2 (PCR) Not Detected (NotDetected) Parainfluenza 3 (PCR) Not Detected (NotDetected) Parainfluenza 4 (PCR) Not Detected (NotDetected) RSV (PCR) Not Detected (NotDetected) Entero/Rhino (PCR) Not Detected (NotDetected) Blood Type Antibody Screen Antibody Identification Antibody ID Comment Antigen Identification Crossmatch 01/06/23 01/06/23 01/06/23 Range/Units 18:15 18:15 18:15 WBC (4.8-10.8) K/ul RBC (4.20-5.40) M/uL Hgb (12.0-16.0) g/dl Hct (37.0-47.0) % MCV (80.0-100.0) fL MCH (25.0-34.0) pg MCHC (32.0-36.0) g/dL RDW Std Deviation (36.4-46.3) fL RDW Coeff of Reginaldo (11.5-14.5) % Plt Count (130-400) K/uL MPV (9.4-12.4) fL Immature Gran % (Auto) % Neut % (Auto) % Lymph % (Auto) % [place] % (Auto) % Eos % (Auto) % Baso % (Auto) % Neut # (Auto) (1.40-6.50) K/uL Lymph # (Auto) (1.2-3.4) K/uL [place] # (Auto) (0.11-0.59) K/uL Eos # (Auto) (0-0.50) K/uL Baso # (Auto) (0-0.2) K/uL Immature Gran # (Auto) (0.01-0.20) K/uL Hypochromasia Anisocytosis Microcytosis Tear Drop Cells Peripher Smr Path Cons PT INR APTT PTT Ratio Sodium 141 (136-145) mmol/L Potassium 3.9 (3.5-5.1) mmol/L Chloride 109 H (98-107) mmol/L Carbon Dioxide 24 (21-32) mmol/L Anion Gap 8 (3-11) BUN 18 (6-23) mg/dl Creatinine 0.98 (0.6-1.2) mg/dl Est Cr Clr Drug Dosing 54.2 ml/min Est GFR ( Amer) 72.2 ml/min Est GFR (Non-Af Amer) 62.3 ml/min BUN/Creatinine Ratio 18.4 (10-20) Glucose 111 H (70-99(Fasting)) mg/dl Estimat Average Glucose mg/dl Hemoglobin A1c (4.5-5.6) % Calcium 9.6 (8.6-10.3) mg/dl Magnesium 2.0 (1.7-2.4) mg/dl Total Bilirubin 0.3 (0.2-1.0) mg/dl AST 24 (13-39) U/L ALT 22 (7-52) U/L Alkaline Phosphatase 111 H (34-104) U/L Troponin I High Sens 11.4 (0-14) pg/ml B-Natriuretic Peptide 96 (0-100) pg/ml Total Protein 6.9 (6.0-8.3) gm/dl Albumin 4.1 (3.4-5.0) gm/dl Globulin 2.8 (2.5-4.0) gm/dl Albumin/Globulin Ratio 1.5 (0.9-2) Lipase 68 (11-82) U/L TSH 3.376 (0.300-4.500) uIu/ml Nasal Screen MRSA (PCR) (Negative) Adenovirus (PCR) (NotDetected) Anaplasma Smear A. phagocytophilum DNA B. pertussis DNA (PCR) (NotDetected) B.parapertussis DNA PCR (NotDetected) Lyme Disease IgG Ab (Negative) Lyme Disease IgM Ab (Negative) C. pneumoniae DNA (PCR) (NotDetected) Coronavirus OC43 (PCR) (NotDetected) Coronavirus HKU1 (PCR) (NotDetected) Coronavirus 229E (PCR) (NotDetected) SARS-CoV-2 (PCR) (NotDetected) Coronavirus NL63 (PCR) (NotDetected) Human Metapneumovir PCR (NotDetected) Influenza Type A (PCR) (NotDetected) Influenza Type B (PCR) (NotDetected) M. pneumoniae (PCR) (NotDetected) Parainfluenza 1 (PCR) (NotDetected) Parainfluenza 2 (PCR) (NotDetected) Parainfluenza 3 (PCR) (NotDetected) Parainfluenza 4 (PCR) (NotDetected) RSV (PCR) (NotDetected) Entero/Rhino (PCR) (NotDetected) Blood Type Antibody Screen Antibody Identification Antibody ID Comment Antigen Identification Crossmatch 01/06/23 01/06/23 Range/Units 18:15 18:15 WBC 8.70 (4.8-10.8) K/ul RBC 4.68 (4.20-5.40) M/uL Hgb 8.4 L (12.0-16.0) g/dl Hct 31.2 L (37.0-47.0) % MCV 66.7 L (80.0-100.0) fL MCH 17.9 L (25.0-34.0) pg MCHC 26.9 L (32.0-36.0) g/dL RDW Std Deviation 42.7 (36.4-46.3) fL RDW Coeff of Reginaldo 18.3 H (11.5-14.5) % Plt Count 451 H (130-400) K/uL MPV 10.5 (9.4-12.4) fL Immature Gran % (Auto) 0.2 % Neut % (Auto) 69.1 % Lymph % (Auto) 20.1 % [place] % (Auto) 7.9 % Eos % (Auto) 2.0 % Baso % (Auto) 0.7 % Neut # (Auto) 6.01 (1.40-6.50) K/uL Lymph # (Auto) 1.75 (1.2-3.4) K/uL [place] # (Auto) 0.69 H (0.11-0.59) K/uL Eos # (Auto) 0.17 (0-0.50) K/uL Baso # (Auto) 0.06 (0-0.2) K/uL Immature Gran # (Auto) 0.02 (0.01-0.20) K/uL Hypochromasia Present Anisocytosis Microcytosis Present Tear Drop Cells 1+ Peripher Smr Path Cons PT Cancelled INR Cancelled APTT Cancelled PTT Ratio Cancelled Sodium (136-145) mmol/L Potassium (3.5-5.1) mmol/L Chloride (98-107) mmol/L Carbon Dioxide (21-32) mmol/L Anion Gap (3-11) BUN (6-23) mg/dl Creatinine (0.6-1.2) mg/dl Est Cr Clr Drug Dosing ml/min Est GFR ( Amer) ml/min Est GFR (Non-Af Amer) ml/min BUN/Creatinine Ratio (10-20) Glucose (70-99(Fasting)) mg/dl Estimat Average Glucose mg/dl Hemoglobin A1c (4.5-5.6) % Calcium (8.6-10.3) mg/dl Magnesium (1.7-2.4) mg/dl Total Bilirubin (0.2-1.0) mg/dl AST (13-39) U/L ALT (7-52) U/L Alkaline Phosphatase (34-104) U/L Troponin I High Sens (0-14) pg/ml B-Natriuretic Peptide (0-100) pg/ml Total Protein (6.0-8.3) gm/dl Albumin (3.4-5.0) gm/dl Globulin (2.5-4.0) gm/dl Albumin/Globulin Ratio (0.9-2) Lipase (11-82) U/L TSH (0.300-4.500) uIu/ml Nasal Screen MRSA (PCR) (Negative) Adenovirus (PCR) (NotDetected) Anaplasma Smear A. phagocytophilum DNA B. pertussis DNA (PCR) (NotDetected) B.parapertussis DNA PCR (NotDetected) Lyme Disease IgG Ab (Negative) Lyme Disease IgM Ab (Negative) C. pneumoniae DNA (PCR) (NotDetected) Coronavirus OC43 (PCR) (NotDetected) Coronavirus HKU1 (PCR) (NotDetected) Coronavirus 229E (PCR) (NotDetected) SARS-CoV-2 (PCR) (NotDetected) Coronavirus NL63 (PCR) (NotDetected) Human Metapneumovir PCR (NotDetected) Influenza Type A (PCR) (NotDetected) Influenza Type B (PCR) (NotDetected) M. pneumoniae (PCR) (NotDetected) Parainfluenza 1 (PCR) (NotDetected) Parainfluenza 2 (PCR) (NotDetected) Parainfluenza 3 (PCR) (NotDetected) Parainfluenza 4 (PCR) (NotDetected) RSV (PCR) (NotDetected) Entero/Rhino (PCR) (NotDetected) Blood Type Antibody Screen Antibody Identification Antibody ID Comment Antigen Identification Crossmatch
--- NOTE | 2023-01-07 08:30 | Cardiology Consultation ---
Date of Consultation January 07, 2023 Assessment & Plan (1) PAF (paroxysmal atrial fibrillation): (2) Sinus tachycardia: (3) Anemia: (4) Cough: Plan Patient admitted after being found to have afib RVR on outpatient EKG with HR's around 160 bpm. By the time she reached ER, she had converted to NSR/Sinus tachycardia. She has prior intolerances (per chart history) to beta blockers with underlying asthma. Agree with increasing home verapamil from 40 mg BID to 80 mg BID. Currently her HR's improved and she is in NSR. Patient initially anticoagulated with heparin but this resulted in worsening of her chronic anemia. Hbg down to 7.0 this morning. heparin stopped. Currently receiving 1 unit PRBC's. Monitor H&H Stroke risks with PAF discussed with patient. She does have CHADSVASC score of 2-3 (sex and HTN), however given her significant history of iron deficiency anemia requiring blood transfusions, anitocagulation is not recommended. Patient agreeable. Continue home dose ASA 81 mg daily. Atypical chest pain noted with positional changes and coughing. HS troponin unremarkable. Echo with preserved LVEF, no wall motion abnormalities. Wheezing and cough noted, consistent with possible asthma exacerbation/bronchitis. Defer to hospitalist for ongoing treatment. She appears euvolemic. No indication for additional diuretic therapy Case discussed with Dr. Girard I spent a total of 65 minutes on the date of service in preparation, delivery, and documentation of the care provided to this patient, excluding any time spent in the performance of separately billed services. Damaris Hammer PA-C Department of Cardiology, [facility] This chart was completed in part utilizing Speech Voice Recognition Software. Grammatical errors, random word insertions, pronoun errors, and incomplete sentences are an occasional consequence of this system due to software limitations, ambient noise, and hardware issues. Any formal questions or concerns about the content, text, or information contained within the body of this dictation should be directly addressed to the provider for clarification. Supervising Physician Co-Signing Physician Notes Patient seen . I personally performed a history and physical examination. Agree with findings and plans as outlined by Shankar Hammer PA-C with additions as noted below. S: Symptoms improved. Objective: Exam: CV: Regular rhythm, no murmurs, no edema Impression: New onset PAF Acute on Chronic anemia Plan: Agree with increasing verapamil to 80 mg BID. 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 Agree with transfusion of PRBCs for goal HGB > 8 g/dl Phu Girard, History of Present Illness Reason for Consultation: PAF Requesting Physician: Dr. Johnson Attending Physician: Dr. Girard History of Present Illness Patient is a 62 year old female who was admitted to [facility] yesterday after being diagnosed with afib RVR during PCP visit. Patient previously followed by [facility] - last visit with Dr. Aguirre in 2017 History includes 1. Remote of syncope and NSVT in 1998 2. History of paroxysmal atrial tachycardia, with prior intolerances to beta blockers reported. 3. Left heart catheterization in 2009 demonstrating normal coronary anatomy. 4. HTN - labile 5. Dyslipidemia uncontrolled with statin intolerance in the past secondary to elevated LFT's 6. Celiac disease 7. Chronic iron-deficiency anemia requiring intermittent transfusions Patient went to see PCP yesterday with complaints of cough x2 weeks, with concerns regarding worsening fluid retention/edema. Also felt her heart was racing. EKG confirmed atrial fib with RVR. Sent to ER for evaluation. Upon arrival, EKG confirmed patient was back in NSR/Sinus tachycardia. Chest xray was unremarkable. Venous duplex was negative for DVT. Chest CTA was without acute findings. Patient was started on IV heparin due to PAF. home dose verapamil was increased from 40 mg BID to 80 mg BID. Heart rates improved with this adjustment. Overnight patient was on IV heparin and unfortunately her Hbg trended down to 7.0. Heparin stopped. She is currently receiving 1 unit of PRBC's. She is resting in bed comfortably. She notes mild substernal chest pain but resolves with repositioning. No recurrent palpitations. She reports ongoing cough but reports her SOB and edema have resolved. Allergies Allergy/AdvReac Type Severity Reaction Status Date / Time bee venom protein (honey bee) Allergy Severe ANAPHYLAXIS Verified 01/06/23 20:05 coconut Allergy Severe RASH; SOB Verified 01/06/23 20:05 gluten Allergy Severe CELIAC'S Verified 01/06/23 20:05 iron Allergy Severe SOB,TACHY Verified 01/06/23 20:05 WITH IV IRON latex Allergy Severe Anaphylaxis Verified 01/06/23 20:05 Penicillins Allergy Severe Anaphylaxis Verified 01/06/23 20:05 Sulfa (Sulfonamide Allergy Severe Anaphylaxis Verified 01/06/23 20:05 Antibiotics) ROBER Inhibitors Allergy Intermediate RASH/TACHYC Verified 01/06/23 20:05 ARDIA cefaclor Allergy Intermediate CECLOR--RASH/UPSET Verified 01/06/23 20:05 STOMACH egg Allergy Intermediate RASH & Verified 01/06/23 20:05 Bloating Influenza Virus Vaccines Allergy Intermediate rash and Verified 01/06/23 20:05 bloating lactose Allergy Intermediate RASH; Verified 01/06/23 20:05 BLOATING; DIARRHEA; VOMITING tetracycline Allergy Intermediate NAUSEA/VOMI Verified 01/06/23 20:05 TING/RASH Quinolones Allergy Unknown ALLERGY TO Verified 01/06/23 20:05 AVELOX ,CAN TAKE CIPRO OR LEVAQUIN W/O RXN Beta-Blockers AdvReac Intermediate intolerance Verified 01/06/23 20:44 (Beta-Adrenergic Bloc as per records Home Medications Medication Instructions Recorded Confirmed Type amitriptyline 75 mg tablet 75 mg PO HS 12/24/20 01/06/23 History cimetidine 400 mg tablet 400 mg PO BID 12/24/20 01/06/23 History ergocalciferol (vitamin D2) 1,250 1,250 mcg PO 2XWK 12/24/20 01/06/23 History mcg (50,000 unit) capsule (Vitamin D2) hyoscyamine sulfate 0.375 mg 0.375 mg PO Q6H PRN abd pain 12/24/20 01/06/23 History tablet,extended release,12 hr polyethylene glycol 3350 17 17 g PO QID PRN FOR AT LEAST 1 12/24/20 01/06/23 History gram/dose oral powder (Miralax) STOOL DAILY rabeprazole 20 mg tablet,delayed 40 mg PO BID 12/24/20 01/06/23 History release ropinirole 1 mg tablet 1 mg PO HS 12/24/20 01/06/23 History sucralfate 1 gram tablet (Carafate) 1 g PO ACHS 12/24/20 01/06/23 History topiramate 100 mg tablet (Topamax) 100 mg PO BID 12/24/20 01/06/23 History aspirin 81 mg tablet,delayed 81 mg PO DAILY 04/06/21 01/06/23 History release (Kerwin Low Dose Aspirin) fexofenadine 180 mg tablet 180 mg PO DAILY 05/08/21 01/06/23 History levothyroxine 100 mcg tablet 100 mcg PO DAILYBB 05/08/21 01/06/23 History montelukast 10 mg tablet 10 mg PO DAILY 05/08/21 01/06/23 History ondansetron 4 mg disintegrating 4 mg translingual Q8H PRN Nausea 05/08/21 01/06/23 History tablet azelastine 137 mcg (0.1 %) nasal 1 spray intranasal BID 01/06/23 01/06/23 History spray aerosol docusate sodium 100 mg capsule 100 mg PO BID PRN Constipation 01/06/23 01/06/23 History epinephrine 0.3 mg/0.3 mL 0.3 mg IM DIRECTED PRN Allergic 01/06/23 01/06/23 History injection, auto-injector (EpiPen) Reaction ferrous sulfate 325 mg (65 mg 325 mg PO QID 01/06/23 01/06/23 History iron) tablet fluticasone 250 mcg-salmeterol 50 1 inh inhalation BID 01/06/23 01/06/23 History mcg/dose blistr powdr for inhalation (Advair Diskus) galcanezumab-gnlm 120 mg/mL 120 mg subcut MONTHLY 01/06/23 01/06/23 History subcutaneous pen injector (Emgality Pen) ipratropium 20 mcg-albuterol 100 1 puff inhalation QID PRN USE IN 01/06/23 01/06/23 History mcg/actuation mist for inhalation PLACE OF XOPENEX IF NEEDED (Combivent Respimat) levalbuterol HCl 1.25 mg/3 mL 1.25 mg inhalation QID PRN 01/06/23 01/06/23 History solution for nebulization WHEEZING/SHORT OF BREATH mometasone 50 mcg/actuation nasal 2 spray intranasal BID 01/06/23 01/06/23 History spray multivitamin 1 tab PO DAILY 01/06/23 01/06/23 History sennosides 8.6 mg tablet (senna) 8.6 mg PO DAILY PRN Constipation 01/06/23 01/06/23 History triamcinolone acetonide 0.1 % 1 applic topical BID PRN 01/06/23 01/06/23 History topical cream PSORIASIS-ELBOWS/KNEES/HAIRLINE verapamil 40 mg tablet 80 mg PO DAILY 01/06/23 01/06/23 History Patient History Medical History Adrenal cyst monitoring Anxiety Asthma, severe persistent Bloody diarrhea Celiac disease Chronic anemia Chronic back pain Chronic obstructive pulmonary disease Colitis with rectal bleeding Degenerative disc disease Dehydration Dyslipidemia Elevated LFTs Gastroparesis GERD (gastroesophageal reflux disease) Heart disease Hx of sepsis ~2017 treated at [facility]. Hypertension Hypothyroidism no current medication -- TSH normal without meds. IBS (irritable bowel syndrome) CHARLES (iron deficiency anemia) ferrous sulfate QID. Kidney stones no surgery Mitral valve prolapse follows with Dr Aguirre MRSA (methicillin resistant Staphylococcus aureus) 1999 dx nose septum wound 2019 dx in lungs Narcolepsy NSVT (nonsustained ventricular tachycardia) Osteoarthritis Sleep apnea CPAP -- have not used in about a year (it broke and has not yet been fixed) Surgical History History of arthroscopic knee surgery left History of bilateral tubal ligation History of section x1 History of colonoscopy History of dilatation and curettage History of esophagogastroduodenoscopy (EGD) Hx of cardiac cath "2010 - normal coronaries" Hx of cholecystectomy S/P nasal surgery S/P surgery on nasal septum "collapsed septum" s/p post op infection that "ate away the septum" S/P GLENNY-BSO Family History Other No family history of adverse response to anesthesia Social History Smoking Status: Unknown if ever smoked Second Hand Exposure: No; Do You Dip or Chew Tobacco: No; Hx Alcohol Use: No Hx Substance Use: No Preferred Language: Welsh Communication Ability: Effective 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 Beliefs That Will Affect Care: None marital status: Current Living Situation: Family Current Living Situation Comment: and adult son Other Information That Helps Us Care for You: No Feels Safe at Home: Yes Safety Concerns: Feels Safe At This Time Assistive Devices: Oxygen - at Night Review of Systems Review of Systems: All systems reviewed & are unremarkable except as noted in HPI & below Physical Exam Constitutional: WD/WN, vitals as above average body habitus; no acute distress Neck: trachea midline, no thyromegaly Respiratory: normal respiratory effort; no labored breathing Auscultation: + rhonchi and + wheezes Cardiovascular: Rate/Rhythm: regular rate and regular rhythm Heart Sounds: no murmur Vessels: no JVD Extremities: no edema Gastrointestinal (Abdomen): normal bowel sounds, soft, nontender, no hepatosplenomegaly Neurologic: PERRL, EOMI, accommodation nl, no face palsy, no dysarthria Results & Data Vital Signs (Past 12 Hours) Vital Signs Temp Pulse Pulse Resp BP BP Pulse Ox 01/07/23 08:17 36.3 C L 97 H 16 136/81 98 01/07/23 07:58 36.7 C 74 16 126/82 98 01/07/23 07:37 70 01/07/23 07:24 36.8 C 77 16 118/73 98 01/07/23 03:52 37.0 C 73 20 92/58 L 97 01/06/23 22:50 103 H 01/06/23 22:30 01/06/23 22:49 01/06/23 22:16 37.7 C H 102 H 16 151/100 H 96 01/06/23 21:00 99 H 19 131/106 H 97 01/06/23 20:50 107 H 17 96 01/06/23 20:40 100 H 15 98 01/06/23 20:30 103 H 20 154/110 H O2 Del Method 01/07/23 08:17 01/07/23 07:58 01/07/23 07:37 01/07/23 07:24 Room Air 01/07/23 03:52 Room Air 01/06/23 22:50 01/06/23 22:30 Room Air 01/06/23 22:49 Room Air 01/06/23 22:16 Room Air 01/06/23 21:00 01/06/23 20:50 01/06/23 20:40 01/06/23 20:30 Laboratory Results Cardiac Enzymes 01/06/23 01/06/23 Range/Units 18:15 18:15 AST 24 (13-39) U/L Troponin I High Sens 11.4 (0-14) pg/ml B-Natriuretic Peptide 96 (0-100) pg/ml Coagulation 01/06/23 01/06/23 01/06/23 Range/Units 18:15 18:15 19:42 PT Cancelled 11.7 APTT Cancelled 22.2 B-Natriuretic Peptide 96 (0-100) pg/ml 01/07/23 Range/Units 06:12 PT APTT 31.0 B-Natriuretic Peptide (0-100) pg/ml CBC 01/06/23 01/07/23 Range/Units 18:15 06:12 WBC 8.70 6.47 (4.8-10.8) K/ul RBC 4.68 3.87 L (4.20-5.40) M/uL Hgb 8.4 L 7.0 L (12.0-16.0) g/dl Hct 31.2 L 25.1 L (37.0-47.0) % Plt Count 451 H 358 (130-400) K/uL Neut # (Auto) 6.01 5.01 (1.40-6.50) K/uL Lymph # (Auto) 1.75 0.86 L (1.2-3.4) K/uL Mcdonough # (Auto) 0.69 H 0.39 (0.11-0.59) K/uL Eos # (Auto) 0.17 0.17 (0-0.50) K/uL Baso # (Auto) 0.06 0.03 (0-0.2) K/uL Comprehensive Metabolic Panel 01/06/23 01/07/23 Range/Units 18:15 06:12 Sodium 141 139 (136-145) mmol/L Potassium 3.9 3.4 L (3.5-5.1) mmol/L Chloride 109 H 108 H (98-107) mmol/L Carbon Dioxide 24 23 (21-32) mmol/L BUN 18 16 (6-23) mg/dl Creatinine 0.98 0.82 (0.6-1.2) mg/dl Glucose 111 H 102 H (70-99(Fasting)) mg/dl Calcium 9.6 8.4 L (8.6-10.3) mg/dl AST 24 (13-39) U/L ALT 22 (7-52) U/L Alkaline Phosphatase 111 H (34-104) U/L Total Protein 6.9 (6.0-8.3) gm/dl Albumin 4.1 (3.4-5.0) gm/dl Intake and Output 01/06/23 01/07/23 01/07/23 22:59 06:59 14:59 Intake Total 128.066 / 128.066 Output Total 1400 / 1400 Balance -1400 / -1400 128.066 / 128.066 Intake: IV 128.066 / 128.066 Heparin Sodium/Dextrose 25,000 128.066 / 128.066 units In 500 ml @ 700 UNITS/HR 14 mls/hr IV .Q24H [facility] Rx#: [id number] Intake (Blood Product) Amt 0 / 0 Packed Cells, Leukoreduced 0 / 0 Unit [id number] Output: Urine 1400 / 1400 Other: Weight 65.8 kg 65.8 kg Weight Measurement Method [facility] Findings Telemetry reviewed: Since arrival patient was initially found to be sinus tach, but HR's have improved and currently NSR. No recurrent atrial fibrillation since admission. echo report reviewed dated January 07, 2023: Mild LVH LV wall motion is normal LV systolic function is normal LVEF 55% mild TR No pulm hypertension EKG on arrival to ER: Sinus tachycardia at 124 bpm Septal infarct , age undetermined Abnormal ECG When compared with ECG of 06-AUG-2021 01:16, Septal infarct is now Present EKG from PCP office reviewed - Atrial fibrillation with RVR at [address] ST depression in inferior and lateral leads. Chest X-Ray 01/06/23 17:55 SINGLE VIEW CHEST CLINICAL HISTORY: Atypical chest pain. FINDINGS: An AP, portable, upright chest radiograph is compared to chest x-ray and chest CT dated 08/03/2021. A right internal jugular central venous infusion port is unchanged in position. The heart is enlarged noting atherosclerotic calcification of the thoracic aorta. The pulmonary vasculature is noncongested. Chronic interstitial thickening similar to previous. The lungs and pleural spaces are clear noting bibasilar scarring/atelectasis. No pneumothorax is seen. The skeletal structures are osteopenic. The bony thorax is grossly intact. Fusion hardware is noted in the lower cervical spine. Cholecystectomy clips are seen in the right upper quadrant. IMPRESSION: Cardiomegaly with no active disease in the chest ACT 112: Negative or not required by law. Electronically signed by: Demetrius Bruce M.D. 01/07/2023 7:26 AM Chest CTA 01/06/23 19:29 Exam(s): CTA CHEST IV Amt: 121 ml optiray 320 EXAM: CT Angiography Chest With Intravenous Contrast CLINICAL HISTORY: Reason for exam: PE. TECHNIQUE: Axial computed tomographic angiography images of the chest with intravenous contrast. CTDI is 17.36 mGy and DLP is 582.31 mGy-cm. Automated exposure control was utilized for the study. A dose lowering technique was utilized adhering to the principles of ALARA. MIP reconstructed images were created and reviewed. COMPARISON: CT chest 08/03/21 FINDINGS: Pulmonary arteries: Unremarkable. Normal caliber main pulmonary artery. No evidence of acute pulmonary embolism as visualized; respiratory motion obscures the lower lobe subsegmental branches. Aorta: No acute findings. No thoracic aortic aneurysm or dissection. Lungs: Unremarkable. No mass. No consolidation. Pleural space: Unremarkable. No significant effusion. No pneumothorax. Heart: Stable heart size. No significant coronary artery atherosclerosis. No right ventricular strain. No pericardial effusion. Bones/joints: No acute fracture or dislocation. Posterior fixation hardware in the lower cervical spine extending to the T1 level. Old left rib fractures. Soft tissues: Unremarkable. Lymph nodes: Unremarkable. No adenopathy. Gallbladder and bile ducts: Cholecystectomy. Adrenals: Stable benign left adrenal adenoma. Tubes, lines and devices: Right chest wall port catheter with tip in the distal SVC. IMPRESSION: 1. No evidence of acute pulmonary embolism as visualized. 2. No acute findings in the chest. Electronically signed by: Sujit Taveras M.D. 01/06/23 20:32 PM Venous Doppler Study 01/06/23 20:34 ULTRASOUND BILATERAL LOWER EXTREMITY VENOUS CLINICAL HISTORY: Low extremity edema. COMPARISON STUDY: Bilateral lower extremity venous ultrasound dated 02/08/2012. TECHNIQUE: Real-time, grayscale, and color Doppler sonography of the deep veins of the right and left lower extremity was performed from the inguinal crease to the calf. Compression and augmentation were utilized. FINDINGS: There is no sonographic evidence of deep venous thrombosis identified in the right or left lower extremity. The common femoral, superficial femoral, and popliteal veins are patent and normally compressible bilaterally. The greater saphenous vein and the profunda femoris vein at the junction with the common femoral vein are clear in both legs. The visualized calf veins are patent bilaterally. A right popliteal cyst measures 2.3 x 1.1 x 1.7 cm and a left popliteal cyst measures 1.8 x 0.6 x 2.1 cm. IMPRESSION: 1. There is no sonographic evidence of deep venous thrombosis identified in the right or left lower extremity. 2. Bilateral popliteal cysts. ACT 112: Negative or not required by law. Electronically signed by: Demetrius Bruce M.D. 01/07/2023 6:47 AM Medications Administered Current Inpatient Medications Acetaminophen (Acetaminophen 325 Mg Tab) 650 mg PO Q4H PRN PRN Reason: Pain or Fever Stop: 02/05/23 22:14 Last Admin: 01/07/23 07:57 Dose: 650 mg Amitriptyline HCl (Amitriptyline Hcl 25 Mg Tab) 75 mg PO HS JAYSHREE Stop: 02/05/23 22:14 Last Admin: 01/06/23 23:30 Dose: 75 mg Aspirin (Aspirin 81 Mg Ectab) 81 mg PO DAILY JAYSHREE Stop: 02/06/23 08:59 Last Admin: 01/07/23 08:06 Dose: 81 mg Azelastine HCl (Azelastine Hcl 0.1% Nasal 200 Sprays/27,400 Mcg Btl) 1 sprays NA BID JAYSHREE Stop: 02/05/23 22:14 Last Admin: 01/07/23 08:08 Dose: 1 sprays Benzonatate (Benzonatate 100 Mg Capsule) 100 mg PO TID PRN PRN Reason: Cough Stop: 02/05/23 20:41 Docusate Sodium (Docusate Sodium 100 Mg Cap) 100 mg PO BID PRN PRN Reason: Constipation Stop: 02/05/23 22:14 Famotidine (Famotidine 40 Mg Tablet) 40 mg PO DAILY JAYSHREE Stop: 02/05/23 22:14 Last Admin: 01/07/23 08:06 Dose: 40 mg Ferrous Sulfate (Ferrous Sulfate 325 Mg Tab) 325 mg PO QID JAYSHREE Stop: 02/05/23 22:14 Last Admin: 01/07/23 08:07 Dose: 325 mg Fexofenadine HCl (Fexofenadine Hcl 180 Mg Tab) 180 mg PO DAILY JAYSHREE Stop: 02/06/23 08:59 Last Admin: 01/07/23 08:07 Dose: 180 mg Fluticasone Propionate (Fluticasone Propionate Na Spr 16 Gm Btl) 2 sprays NA DAILY JAYSHREE Stop: 02/06/23 08:59 Last Admin: 01/07/23 08:10 Dose: 2 sprays Fluticasone/Vilanterol (Fluticasone/Vilanterol 200/25mcg 14 Puffs/Inhaler) 1 puffs INH DAILY JAYSHREE Stop: 02/06/23 08:59 Last Admin: 01/07/23 08:10 Dose: 1 puffs Guaifenesin (Guaifenesin 600 Mg Tabcr) 600 mg PO Q12 JAYSHREE Stop: 02/06/23 08:59 Last Admin: 01/07/23 08:06 Dose: 600 mg Heparin Sodium (Porcine) (Heparin 100 Unit/Ml 5ml Flush) 5 ml FLUSH PRN PRN PRN Reason: Flush Stop: 02/06/23 01:07 Promethazine HCl 6.25 mg/ (Sodium Chloride) 50.25 mls @ 201 mls/hr IV Q6H PRN PRN Reason: Nausea And Vomiting Stop: 02/05/23 20:40 Levothyroxine Sodium (Levothyroxine Sodium 100 Mcg Tablet) 100 mcg PO DAILYBB [facility] Stop: 02/06/23 06:29 Last Admin: 01/07/23 06:14 Dose: 100 mcg Montelukast Sodium (Montelukast Sodium 10 Mg Tablet) 10 mg PO DAILY JAYSHREE Stop: 02/06/23 08:59 Last Admin: 01/07/23 08:07 Dose: 10 mg Multivitamins (Multivitamin Tab) 1 tab PO DAILY JAYSHREE Stop: 02/06/23 08:59 Last Admin: 01/07/23 08:07 Dose: 1 tab Pantoprazole Sodium (Pantoprazole 40 Mg Tab) 40 mg PO BID [facility] Stop: 02/05/23 22:14 Last Admin: 01/07/23 08:07 Dose: 40 mg Polyethylene Glycol (Polyethylene (Miralax) 17 Gm Pack) 17 gm PO QID PRN PRN Reason: FOR AT LEAST 1 STOOL DAILY Stop: 02/05/23 22:14 Ropinirole HCl (Ropinirole Hcl 1 Mg Tablet) 1 mg PO HS [facility] Stop: 02/05/23 22:14 Last Admin: 01/06/23 23:32 Dose: 1 mg Sennosides (Senna 8.6 Mg Tab) 8.6 mg PO DAILY PRN PRN Reason: Constipation Stop: 02/05/23 22:14 Sucralfate (Sucralfate 1 Gm Tab) 1 gm PO ACHS JAYSHREE Stop: 02/05/23 22:14 Last Admin: 01/07/23 08:07 Dose: 1 gm Topiramate (Topiramate 100 Mg Tab) 100 mg PO BID [facility] Stop: 02/05/23 22:14 Last Admin: 01/07/23 08:07 Dose: 100 mg Tramadol HCl (Tramadol Hcl 50 Mg Tablet) 25 - 50 mg PO Q4H PRN PRN Reason: Pain Stop: 02/05/23 20:40 Verapamil HCl (Verapamil Hcl 40 Mg Tab) 80 mg PO BID [facility] Stop: 02/06/23 08:59 Last Admin: 01/07/23 08:07 Dose: 80 mg (3) Anemia Anemia type: unspecified type Qualified Code(s): D64.9 - Anemia, unspecified (4) Cough Cough type: unspecified Qualified Code(s): R05.9 - Cough, unspecified
[2023-01-07] MEDS: traMADol HCL 50 MG TABLET PO PRN ×2 (11:14→21:36)
[2023-01-07] MEDS ORDERED: COUGH DROP (SUGAR FREE) LOZ 24 LOZ/1 BOX BUCCAL STA (19:11)
[2023-01-07 19:15] LABS: Hemoglobin 8.8 g/dl (12.0-16.0)
[2023-01-07] MEDS: BENZONATATE 100 MG CAPSULE PO PRN (20:01)
[2023-01-07] MEDS: AMITRIPTYLINE HCL 25 MG TAB PO SCH (20:05)
[2023-01-07] MEDS: rOPINIRole HCL 1 MG TABLET PO SCH (20:06)
[2023-01-08] MEDS: LEVOTHYROXINE SODIUM 100 MCG TABLET PO SCH (05:40)
[2023-01-08] MEDS: ACETAMINOPHEN 325 MG TAB PO PRN ×2 (05:43→19:30)
[2023-01-08 06:38] LABS: Hematocrit (blood only) 30.8 % (37.0-47.0); Hemoglobin 8.9 g/dl (12.0-16.0)
[2023-01-08 06:53] LABS: BUN Creatinine Ratio 10.8 (10-20); Calcium 8.7 mg/dl (8.6-10.3); Est GFR (African American) 88.2 ml/min; Est GFR (Non-African American) 76.1 ml/min; Magnesium 2.1 mg/dl (1.7-2.4); Phosphorus 3.3 mg/dl (2.5-4.9); Potassium 3.7 mmol/L (3.5-5.1)
--- NOTE | 2023-01-08 08:21 | Hospitalist Progress Note ---
Date of Service January 08, 2023 Assessment & Plan (1) PAF (paroxysmal atrial fibrillation): Plan: Transient A-fib noted on outpatient EKG, new onset History of PAT as per records Patient currently NSR. Fluid retention possible right-sided heart failure -> euvolemic on exam now. 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 anemia H&H stable post transfusion - current 8.9 Admitted to PCU receiving 1 unit pRBC (01/07/23) post transfusion H&H improved Titrate home calcium channel harsha (patient has history of beta-harsha intolerance)-> verapamil increased to 80 bid IV heparin for thromboembolic prophylaxis initially but now stopped as AM Hgb down to 7 -> pt can not be anticoagulated (discussed in detail w/ cardiology as well - will continue w/ aspirin 81 daily) Lasix 1 dose on admission for possible right-sided CHF Strict I/Os, daily weights, CHF education TTE obtained -mild concentric LVH. LV wall motion is normal. LV systolic function is normal. LVEF 55%. There is mild tricuspid regurg. Doppler findings do not suggest pulmonary hypertension Cardiology consulted Re: PAF, possible CHF Agree w/ increased dose of verapamil 80 bid, not a candidate for anticoagulation- cont. w/ ASA 81 daily,, euvolemic at this time Outpatient follow-up with sleep medicine, patient needs new CPAP machine Update hemoglobin A1c hx GERD/irritable bowel syndrome hypothyroidism, euthyroid as of current TSH Hyperglycemia, likely prediabetes, hemoglobin A1c of 5.9 last year DVT prophylaxis IV heparin stopped -> SCDs Full code Admission and Anticipated Discharge Date Admission Date: January 06, 2023 Subjective Pt seen in follow up of Afib new as outpt, here in sinus rhythm, pt also anemic requiring blood transfusion Currently sitting up in bed, in no acute distress, feeling overall better Hemoglobin dropped to 7 yesterday morning, IV heparin was stopped. Hgb this AM improved and stable Currently denies any chest pain shortness of breath, overall comfortable. Denies any blood in the stool/ dark stools. FOBT negative per admitting provider. Has some on and off cough Review of Systems Review of Systems: All systems reviewed & are unremarkable except as noted in Subjective Physical Exam Physical Exam: GENERAL: WD/WN F in no respiratory distress SKIN: Pallor, warm HEENT: NC/AT, EOMI, Pale palpebral conjunctivae NECK : Supple, no tenderness CHEST : Decreased breath sounds, no tenderness HEART : RRR, no obvious murmurs ABDOMEN: Some distention, no abdominal tenderness EXTREMITIES : Minimal LE swelling, no LE tenderness, moves extremities NEUROLOGIC : Coherent, no facial asymmetry, speech fluent, moves extremities Results & Data Results & Data Vital Signs (Past 12 Hours) Vital Signs Temp Pulse Pulse Resp BP Pulse Ox O2 Del Method 01/08/23 08:07 37.0 C 74 19 114/70 98 Room Air 01/08/23 03:00 36.6 C 76 16 135/85 95 Room Air 01/08/23 00:21 74 01/07/23 23:00 36.5 C 77 16 123/79 96 Room Air 01/07/23 22:07 Room Air Laboratory Results 01/08/23 01/08/23 01/07/23 Range/Units 05:40 05:40 18:13 Hgb 8.9 L 8.8 L (12.0-16.0) g/dl Hct 30.8 L 31.0 L (37.0-47.0) % Peripher Smr Path Cons Sodium 140 (136-145) mmol/L Potassium 3.7 (3.5-5.1) mmol/L Chloride 112 H (98-107) mmol/L Carbon Dioxide 22 (21-32) mmol/L Anion Gap 6 (3-11) BUN 9 (6-23) mg/dl Creatinine 0.83 (0.6-1.2) mg/dl Est Cr Clr Drug Dosing 64.0 ml/min Est GFR ( Amer) 88.2 ml/min Est GFR (Non-Af Amer) 76.1 ml/min BUN/Creatinine Ratio 10.8 (10-20) Glucose 90 (70-99(Fasting)) mg/dl Calcium 8.7 (8.6-10.3) mg/dl Phosphorus 3.3 (2.5-4.9) mg/dl Magnesium 2.1 (1.7-2.4) mg/dl Blood Type Antibody Screen Antibody Identification Antibody ID Comment Antigen Identification Crossmatch 01/07/23 01/07/23 01/06/23 Range/Units 06:12 06:12 19:42 Hgb (12.0-16.0) g/dl Hct (37.0-47.0) % Peripher Smr Path Cons Cancelled Sodium (136-145) mmol/L Potassium (3.5-5.1) mmol/L Chloride (98-107) mmol/L Carbon Dioxide (21-32) mmol/L Anion Gap (3-11) BUN (6-23) mg/dl Creatinine (0.6-1.2) mg/dl Est Cr Clr Drug Dosing ml/min Est GFR ( Amer) ml/min Est GFR (Non-Af Amer) ml/min BUN/Creatinine Ratio (10-20) Glucose (70-99(Fasting)) mg/dl Calcium (8.6-10.3) mg/dl Phosphorus (2.5-4.9) mg/dl Magnesium (1.7-2.4) mg/dl Blood Type A Positive Antibody Screen POSITIVE A Antibody Identification Anti-e Antibody ID Comment Antigen Identification e Antigen - NEGATIVE Crossmatch See Detail Medications Administered Current Inpatient Medications Acetaminophen (Acetaminophen 325 Mg Tab) 650 mg PO Q4H PRN PRN Reason: Pain or Fever Stop: 02/05/23 22:14 Last Admin: 01/08/23 05:43 Dose: 650 mg Amitriptyline HCl (Amitriptyline Hcl 25 Mg Tab) 75 mg PO HS JAYSHREE Stop: 02/05/23 22:14 Last Admin: 01/07/23 20:05 Dose: 75 mg Aspirin (Aspirin 81 Mg Ectab) 81 mg PO DAILY JAYSHREE Stop: 02/06/23 08:59 Last Admin: 01/07/23 08:06 Dose: 81 mg Azelastine HCl (Azelastine Hcl 0.1% Nasal 200 Sprays/27,400 Mcg Btl) 1 sprays NA BID JAYSHREE Stop: 02/05/23 22:14 Last Admin: 01/07/23 20:07 Dose: 1 sprays Benzonatate (Benzonatate 100 Mg Capsule) 100 mg PO TID PRN PRN Reason: Cough Stop: 02/05/23 20:41 Last Admin: 01/07/23 20:01 Dose: 100 mg Docusate Sodium (Docusate Sodium 100 Mg Cap) 100 mg PO BID PRN PRN Reason: Constipation Stop: 02/05/23 22:14 Famotidine (Famotidine 40 Mg Tablet) 40 mg PO DAILY JAYSHREE Stop: 02/05/23 22:14 Last Admin: 01/07/23 08:06 Dose: 40 mg Ferrous Sulfate (Ferrous Sulfate 325 Mg Tab) 325 mg PO QID JAYSHREE Stop: 02/05/23 22:14 Last Admin: 01/07/23 20:08 Dose: 325 mg Fexofenadine HCl (Fexofenadine Hcl 180 Mg Tab) 180 mg PO DAILY JAYSHREE Stop: 02/06/23 08:59 Last Admin: 01/07/23 08:07 Dose: 180 mg Fluticasone Propionate (Fluticasone Propionate Na Spr 16 Gm Btl) 2 sprays NA DAILY JAYSHREE Stop: 02/06/23 08:59 Last Admin: 01/07/23 08:10 Dose: 2 sprays Fluticasone/Vilanterol (Fluticasone/Vilanterol 200/25mcg 14 Puffs/Inhaler) 1 puffs INH DAILY JAYSHREE Stop: 02/06/23 08:59 Last Admin: 01/07/23 08:10 Dose: 1 puffs Guaifenesin (Guaifenesin 600 Mg Tabcr) 600 mg PO Q12 JAYSHREE Stop: 02/06/23 08:59 Last Admin: 01/07/23 20:04 Dose: 600 mg Heparin Sodium (Porcine) (Heparin 100 Unit/Ml 5ml Flush) 5 ml FLUSH PRN PRN PRN Reason: Flush Stop: 02/06/23 01:07 Promethazine HCl 6.25 mg/ (Sodium Chloride) 50.25 mls @ 201 mls/hr IV Q6H PRN PRN Reason: Nausea And Vomiting Stop: 02/05/23 20:40 Levothyroxine Sodium (Levothyroxine Sodium 100 Mcg Tablet) 100 mcg PO DAILYBB [facility] Stop: 02/06/23 06:29 Last Admin: 01/08/23 05:40 Dose: 100 mcg Montelukast Sodium (Montelukast Sodium 10 Mg Tablet) 10 mg PO DAILY JAYSHREE Stop: 02/06/23 08:59 Last Admin: 01/07/23 08:07 Dose: 10 mg Multivitamins (Multivitamin Tab) 1 tab PO DAILY JAYSHREE Stop: 02/06/23 08:59 Last Admin: 01/07/23 08:07 Dose: 1 tab Pantoprazole Sodium (Pantoprazole 40 Mg Tab) 40 mg PO BID JAYSHREE Stop: 02/05/23 22:14 Last Admin: 01/07/23 20:05 Dose: 40 mg Polyethylene Glycol (Polyethylene (Miralax) 17 Gm Pack) 17 gm PO QID PRN PRN Reason: FOR AT LEAST 1 STOOL DAILY Stop: 02/05/23 22:14 Ropinirole HCl (Ropinirole Hcl 1 Mg Tablet) 1 mg PO HS [facility] Stop: 02/05/23 22:14 Last Admin: 01/07/23 20:06 Dose: 1 mg Sennosides (Senna 8.6 Mg Tab) 8.6 mg PO DAILY PRN PRN Reason: Constipation Stop: 02/05/23 22:14 Sucralfate (Sucralfate 1 Gm Tab) 1 gm PO ACHS JAYSHREE Stop: 02/05/23 22:14 Last Admin: 01/07/23 20:02 Dose: 1 gm Topiramate (Topiramate 100 Mg Tab) 100 mg PO BID [facility] Stop: 02/05/23 22:14 Last Admin: 01/07/23 20:06 Dose: 100 mg Tramadol HCl (Tramadol Hcl 50 Mg Tablet) 25 - 50 mg PO Q4H PRN PRN Reason: Pain Stop: 02/05/23 20:40 Last Admin: 01/07/23 21:36 Dose: 50 mg Verapamil HCl (Verapamil Hcl 40 Mg Tab) 80 mg PO BID [facility] Stop: 02/06/23 08:59 Last Admin: 01/07/23 20:06 Dose: 80 mg
[2023-01-08] MEDS: ASPIRIN 81 MG ECTAB PO SCH (08:52)
[2023-01-08] MEDS: AZELASTINE HCL 0.1% NASAL 200 SPRAYS/27,400 MCG BTL SCH ×2 (08:52→20:16)
[2023-01-08] MEDS: SUCRALFATE 1 GM TAB PO SCH ×4 (08:52→20:15)
[2023-01-08] MEDS: FERROUS SULFATE 325 MG TAB PO SCH ×4 (08:53→20:15)
[2023-01-08] MEDS: FAMOTIDINE 40 MG TABLET PO SCH (08:53)
[2023-01-08] MEDS: FLUTICASONE PROPIONATE NA SPR 16 GM BTL SCH (08:54)
[2023-01-08] MEDS: FLUTICASONE/VILANTEROL 200/25MCG 14 PUFFS/INHALER INH SCH (08:54)
[2023-01-08] MEDS: MULTIVITAMIN TAB PO SCH (08:55)
[2023-01-08] MEDS: FEXOFENADINE HCL 180 MG TAB PO SCH (08:55)
[2023-01-08] MEDS: VERAPAMIL HCL 40 MG TAB PO SCH ×2 (08:56→20:15)
[2023-01-08] MEDS: PANTOprazole 40 MG TAB PO SCH ×2 (08:56→20:15)
[2023-01-08] MEDS: MONTELUKAST SODIUM 10 MG TABLET PO SCH (08:56)
[2023-01-08] MEDS: guaiFENesin 600 MG TABCR PO SCH ×2 (08:56→20:15)
[2023-01-08] MEDS: TOPIRAMATE 100 MG TAB PO SCH ×2 (08:56→20:15)
--- NOTE | 2023-01-08 10:20 | Cardiology Progress Note ---
Date of Service January 08, 2023 Assessment & Plan (1) PAF (paroxysmal atrial fibrillation): (2) Sinus tachycardia: (3) Anemia: (4) Cough: Plan Patient admitted after being found to have afib RVR on outpatient EKG with HR's around 160 bpm. By the time she reached ER, she had converted to NSR/Sinus tachycardia. She has prior intolerances (per chart history) to beta blockers with underlying asthma. Agree with increasing home verapamil from 40 mg BID to 80 mg BID. Currently her HR's improved and she is in NSR. Patient initially anticoagulated with heparin but this resulted in worsening of her chronic anemia. Hbg trended down to 7.0. Heparin discontinued. Received 2 units PRBC's with improved hbg, currently 8.9. Monitor H&H Stroke risks with PAF discussed with patient. She does have CHADSVASC score of 2-3 (sex and HTN), however given her significant history of iron deficiency anemia requiring blood transfusions, anticoagulation is not recommended. Patient agreeable. Continue home dose ASA 81 mg daily. Atypical chest pain noted with positional changes and coughing. HS troponin unremarkable. Echo with preserved LVEF, no wall motion abnormalities. Wheezing and cough now improved. She appears euvolemic. No indication for additional diuretic therapy Stable cardiac symptoms. Will sign off. Please contact fire control assistant cardiology provider with additional questions or concerns. Case discussed with Dr. Girard I spent a total of 25 minutes on the date of service in preparation, delivery, and documentation of the care provided to this patient, excluding any time spent in the performance of separately billed services. Damaris Hammer PA-C Department of Cardiology, [facility] This chart was completed in part utilizing Speech Voice Recognition Software. Grammatical errors, random word insertions, pronoun errors, and incomplete sentences are an occasional consequence of this system due to software limitations, ambient noise, and hardware issues. Any formal questions or concerns about the content, text, or information contained within the body of this dictation should be directly addressed to the provider for clarification. Admission and Anticipated Discharge Date Admission Date: January 06, 2023 Supervising Physician Co-Signing Physician Notes Supervising Physician Attestation: I have personally performed a history and physical examination on the patient. I agree with the physician residential real estate assistant's findings and plan as documented with the following additions. Subjective: Patient without subjective complaint. States that she feels improved from a respiratory standpoint, denies chest discomfort, shortness of breath, or upset stomach. Hemoglobin improved to 8.9 from 7 g/dL. Exam: Cardiovascular: Regular rhythm, no murmurs, no edema Data: Hemoglobin 8.9 g/dL. Assessment and Plan: Paroxysmal atrial fibrillation History of transfusion dependent anemia -Agree with increasing verapamil to 80 mg twice daily. Not a candidate for anticoagulation. -Stable for discharge from a cardiac perspective. I spent a total of 20 minutes on the date of service in preparation, delivery, and documentation of the care provided to this patient, excluding any time spent in the performance of separately billed services. Live Girard, DO Subjective Patient resting in bed comfortably. Denies acute complaints. Prior complaints of chest heavines improved. Cough improved. No edema. No palpitations. No recurrent afib. Voices no acute complaints. Hbg improved after 2 units PRBC's Review of Systems Review of Systems: All systems reviewed & are unremarkable except as noted in HPI & below Physical Exam Constitutional: WD/WN, vitals as above average body habitus; no acute dist ress Neck: trachea midline, no thyromegaly Respiratory: normal respiratory effort; no labored breathing Auscultation: + diminished lung sounds and + wheezes Cardiovascular: Rate/Rhythm: regular rate and regular rhythm Heart Sounds: no murmur Vessels: no JVD Extremities: no edema Gastrointestinal (Abdomen): normal bowel sounds, soft, nontender, no hepatosplenomegaly Neurologic: PERRL, EOMI, accommodation nl, no face palsy, no dysarthria Results & Data Vital Signs (Past 12 Hours) Vital Signs Temp Pulse Pulse Resp BP Pulse Ox O2 Del Method 01/08/23 08:00 Room Air 01/08/23 08:07 37.0 C 74 19 114/70 98 Room Air 01/08/23 03:00 36.6 C 76 16 135/85 95 Room Air 01/08/23 00:21 74 01/07/23 23:00 36.5 C 77 16 123/79 96 Room Air Laboratory Results CBC 01/07/23 01/08/23 Range/Units 18:13 05:40 Hgb 8.8 L 8.9 L (12.0-16.0) g/dl Hct 31.0 L 30.8 L (37.0-47.0) % Comprehensive Metabolic Panel 01/08/23 Range/Units 05:40 Sodium 140 (136-145) mmol/L Potassium 3.7 (3.5-5.1) mmol/L Chloride 112 H (98-107) mmol/L Carbon Dioxide 22 (21-32) mmol/L BUN 9 (6-23) mg/dl Creatinine 0.83 (0.6-1.2) mg/dl Glucose 90 (70-99(Fasting)) mg/dl Calcium 8.7 (8.6-10.3) mg/dl Intake and Output 01/07/23 01/08/23 01/08/23 22:59 06:59 14:59 Intake Total 340 / 1828.066 100 / 1828.066 350 / 350 Output Total 650 / 2150 750 / 2150 300 / 300 Balance -310 / -321.934 -650 / -321.934 50 / 50 Intake: Oral 340 / 1000 100 / 1000 350 / 350 Output: Urine 650 / 2150 750 / 2150 300 / 300 Other: Weight 65.1 kg Diagnostic Findings Telemetry reviewed: NSR in the s. No recurrent afib. echo report reviewed dated January 07, 2023: Mild LVH LV wall motion is normal LV systolic function is normal LVEF 55% mild TR No pulm hypertension Medications Administered Current Inpatient Medications Acetaminophen (Acetaminophen 325 Mg Tab) 650 mg PO Q4H PRN PRN Reason: Pain or Fever Stop: 02/05/23 22:14 Last Admin: 01/08/23 05:43 Dose: 650 mg Amitriptyline HCl (Amitriptyline Hcl 25 Mg Tab) 75 mg PO HS JAYSHREE Stop: 02/05/23 22:14 Last Admin: 01/07/23 20:05 Dose: 75 mg Aspirin (Aspirin 81 Mg Ectab) 81 mg PO DAILY JAYSHREE Stop: 02/06/23 08:59 Last Admin: 01/08/23 08:52 Dose: 81 mg Azelastine HCl (Azelastine Hcl 0.1% Nasal 200 Sprays/27,400 Mcg Btl) 1 sprays NA BID JAYSHREE Stop: 02/05/23 22:14 Last Admin: 01/08/23 08:52 Dose: 1 sprays Benzonatate (Benzonatate 100 Mg Capsule) 100 mg PO TID PRN PRN Reason: Cough Stop: 02/05/23 20:41 Last Admin: 01/07/23 20:01 Dose: 100 mg Docusate Sodium (Docusate Sodium 100 Mg Cap) 100 mg PO BID PRN PRN Reason: Constipation Stop: 02/05/23 22:14 Famotidine (Famotidine 40 Mg Tablet) 40 mg PO DAILY JAYSHREE Stop: 02/05/23 22:14 Last Admin: 01/08/23 08:53 Dose: 40 mg Ferrous Sulfate (Ferrous Sulfate 325 Mg Tab) 325 mg PO QID JAYSHREE Stop: 02/05/23 22:14 Last Admin: 01/08/23 08:53 Dose: 325 mg Fexofenadine HCl (Fexofenadine Hcl 180 Mg Tab) 180 mg PO DAILY JAYSHREE Stop: 02/06/23 08:59 Last Admin: 01/08/23 08:55 Dose: 180 mg Fluticasone Propionate (Fluticasone Propionate Na Spr 16 Gm Btl) 2 sprays NA DAILY JAYSHREE Stop: 02/06/23 08:59 Last Admin: 01/08/23 08:54 Dose: 2 sprays Fluticasone/Vilanterol (Fluticasone/Vilanterol 200/25mcg 14 Puffs/Inhaler) 1 puffs INH DAILY JAYSHREE Stop: 02/06/23 08:59 Last Admin: 01/08/23 08:54 Dose: 1 puffs Guaifenesin (Guaifenesin 600 Mg Tabcr) 600 mg PO Q12 JAYSHREE Stop: 02/06/23 08:59 Last Admin: 01/08/23 08:56 Dose: 600 mg Heparin Sodium (Porcine) (Heparin 100 Unit/Ml 5ml Flush) 5 ml FLUSH PRN PRN PRN Reason: Flush Stop: 02/06/23 01:07 Promethazine HCl 6.25 mg/ (Sodium Chloride) 50.25 mls @ 201 mls/hr IV Q6H PRN PRN Reason: Nausea And Vomiting Stop: 02/05/23 20:40 Levothyroxine Sodium (Levothyroxine Sodium 100 Mcg Tablet) 100 mcg PO DAILYBB [facility] Stop: 02/06/23 06:29 Last Admin: 01/08/23 05:40 Dose: 100 mcg Montelukast Sodium (Montelukast Sodium 10 Mg Tablet) 10 mg PO DAILY JAYSHREE Stop: 02/06/23 08:59 Last Admin: 01/08/23 08:56 Dose: 10 mg Multivitamins (Multivitamin Tab) 1 tab PO DAILY [facility] Stop: 02/06/23 08:59 Last Admin: 01/08/23 08:55 Dose: 1 tab Pantoprazole Sodium (Pantoprazole 40 Mg Tab) 40 mg PO BID [facility] Stop: 02/05/23 22:14 Last Admin: 01/08/23 08:56 Dose: 40 mg Polyethylene Glycol (Polyethylene (Miralax) 17 Gm Pack) 17 gm PO QID PRN PRN Reason: FOR AT LEAST 1 STOOL DAILY Stop: 02/05/23 22:14 Ropinirole HCl (Ropinirole Hcl 1 Mg Tablet) 1 mg PO HS [facility] Stop: 02/05/23 22:14 Last Admin: 01/07/23 20:06 Dose: 1 mg Sennosides (Senna 8.6 Mg Tab) 8.6 mg PO DAILY PRN PRN Reason: Constipation Stop: 02/05/23 22:14 Sucralfate (Sucralfate 1 Gm Tab) 1 gm PO ACHS [facility] Stop: 02/05/23 22:14 Last Admin: 01/08/23 08:52 Dose: 1 gm Topiramate (Topiramate 100 Mg Tab) 100 mg PO BID [facility] Stop: 02/05/23 22:14 Last Admin: 01/08/23 08:56 Dose: 100 mg Tramadol HCl (Tramadol Hcl 50 Mg Tablet) 25 - 50 mg PO Q4H PRN PRN Reason: Pain Stop: 02/05/23 20:40 Last Admin: 01/07/23 21:36 Dose: 50 mg Verapamil HCl (Verapamil Hcl 40 Mg Tab) 80 mg PO BID [facility] Stop: 02/06/23 08:59 Last Admin: 01/08/23 08:56 Dose: 80 mg (3) Anemia Anemia type: unspecified type Qualified Code(s): D64.9 - Anemia, unspecified (4) Cough Cough type: unspecified Qualified Code(s): R05.9 - Cough, unspecified
--- NOTE | 2023-01-08 18:47 | XRay Report ---
SINGLE VIEW CHEST CLINICAL HISTORY: Cough FINDINGS: An AP, portable, upright chest radiograph is compared to chest x-ray and chest CT dated 01/06. A right internal jugular central venous infusion port is unchanged in position. The cardiomedi astinal silhouette is unremarkable. The lungs and pleural spaces are clear. No pneumothorax is seen. The skeletal structures are osteopenic. There are chronic/healed left-sided rib fractures. Fusion matias dware is noted in the lower cervical spine. Cholecystectomy clips are noted in the right lower quadra nt. IMPRESSION: No active disease in the chest. ACT 112: Negative or not required by law. Electronically signed by: Demetrius Bruce M.D. 01/08/2023 6:45 PM
[2023-01-08] MEDS: traMADol HCL 50 MG TABLET PO PRN (19:31)
[2023-01-08] MEDS: BENZONATATE 100 MG CAPSULE PO PRN (19:31)
[2023-01-08] MEDS: AMITRIPTYLINE HCL 25 MG TAB PO SCH (20:15)
[2023-01-08] MEDS: rOPINIRole HCL 1 MG TABLET PO SCH (20:19)
--- NOTE | 2023-01-08 23:04 | Electrocardiogram Report ---
Test Reason : Blood Pressure : / mmHG Vent. Rate : 124 BPM Atrial Rate : 124 BPM P-R Int : 154 ms QRS Dur : 064 ms QT Int : 278 ms P-R-T Axes : 059 -06 022 degrees QTc Int : 399 ms Sinus tachycardia Septal infarct , age undetermined Abnormal ECG When compared with ECG of 06-AUG-2021 01:16, Septal infarct is now Present Confirmed by Vahid James ([id number]) on 01/08/2023 11:03:52 PM Referred By: REFERRED SELF Confirmed By:Vahid James
[2023-01-09] MEDS: LEVOTHYROXINE SODIUM 100 MCG TABLET PO SCH (05:45)
--- NOTE | 2023-01-09 06:04 | Electrocardiogram Report ---
Test Reason : Blood Pressure : / mmHG Vent. Rate : 072 BPM Atrial Rate : 072 BPM P-R Int : 158 ms QRS Dur : 080 ms QT Int : 436 ms P-R-T Axes : 034 006 062 degrees QTc Int : 477 ms Normal sinus rhythm Nonspecific ST and T wave abnormality Prolonged QT Abnormal ECG When compared with ECG of 06-JAN-2023 18:01, Vent. rate has decreased BY 52 BPM Criteria for Septal infarct are no longer Present Confirmed by Vahid James ([id number]) on 01/09/2023 6:04:13 AM Referred By: REFERRED SELF Confirmed By:Vahid James
[2023-01-09] MEDS: MONTELUKAST SODIUM 10 MG TABLET PO SCH (08:25)
[2023-01-09] MEDS: SUCRALFATE 1 GM TAB PO SCH (08:25)
[2023-01-09] MEDS: TOPIRAMATE 100 MG TAB PO SCH (08:25)
[2023-01-09] MEDS: FAMOTIDINE 40 MG TABLET PO SCH (08:25)
[2023-01-09] MEDS: ASPIRIN 81 MG ECTAB PO SCH (08:25)
[2023-01-09] MEDS: FERROUS SULFATE 325 MG TAB PO SCH (08:26)
[2023-01-09] MEDS: guaiFENesin 600 MG TABCR PO SCH (08:26)
[2023-01-09] MEDS: MULTIVITAMIN TAB PO SCH (08:26)
[2023-01-09] MEDS: PANTOprazole 40 MG TAB PO SCH (08:26)
[2023-01-09] MEDS: FEXOFENADINE HCL 180 MG TAB PO SCH (08:26)
[2023-01-09] MEDS: FLUTICASONE/VILANTEROL 200/25MCG 14 PUFFS/INHALER INH SCH (08:27)
[2023-01-09] MEDS: FLUTICASONE PROPIONATE NA SPR 16 GM BTL SCH (08:28)
[2023-01-09] MEDS: AZELASTINE HCL 0.1% NASAL 200 SPRAYS/27,400 MCG BTL SCH (08:28)
[2023-01-09] MEDS: VERAPAMIL HCL 40 MG TAB PO SCH (08:35)
--- NOTE | 2023-01-09 08:50 | Discharge Summary ---
Date of Service January 09, 2023 Admission HPI Per Admitting Provider History obtained from patient and records. Medical history is significant for history idiopathic cardiac arrest/VT, PAT, hypertension, hyperlipidemia/statin intolerance, asthma/COPD, CYNTHIA/narcolepsy as per records (currently CPAP noncompliant), celiac disease, chronic anemia (baseline hemoglobin 8-10,), GERD, irritable bowel syndrome, hypothyroidism, endometriosis/PCOS, hx MRSA. Last confinement August 2021 for asthma exacerbation secondary to COVID-19 pneumonia. 10 days history of dry cough symptoms without fever or chills, malaise symptoms. Palpitations noted at home. No sinus congestion. Different from asthma attack as per patient. Pleuritic chest pain with worsening shortness of breath especially with exertion. Weight gain of more than 10 pounds in the last week with leg swelling. Usual migraine headache symptoms, no belly pain/black/bloody stools. Denies OTC decongestant intake. Patient unable to comply with CPAP for CYNTHIA last 3 years since her device was recalled. Patient seen at PCPs office today. Atrial fibrillation noted on EKG Patient sent to the ER for evaluation. MEDICAL HISTORY: As above. SURGICAL HISTORY: TAHBSO, cholecystectomy, appendectomy, ankle surgery, knee surgery, nasal reconstruction, sinus surgery, finger tendon sheath surgery FAMILY HISTORY: Family history of unknown. Patient is adopted. PERSONAL/SOCIAL HISTORY: Nonsmoker. No chronic intake of inatke of ETOH. 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 Admission Exam Per Admitting Provider GENERAL: Comfortable, incessant dry cough, pleasant, no respiratory distress SKIN: Pallor, warm HEENT: Pale palpebral conjunctivae, no ptosis, dry buccal mucosa NECK : Supple, no tenderness CHEST : Decreased breath sounds, no tenderness HEART : Tachycardic, no obvious murmurs ABDOMEN: Some distention, no abdominal tenderness RECTAL : Intact sphincter, yellow stool (FOBT negative) EXTREMITIES : Minimal LE swelling, no LE tenderness, no other conspicuous deformities noted NEUROLOGIC : Coherent, no facial asymmetry, no other gross focality Principal Diagnosis New onset Afib Symptomatic anemia Discharge Exam GENERAL: WD/WN F in no respiratory distress SKIN: Pallor, warm HEENT: NC/AT, EOMI, Pale palpebral conjunctivae NECK : Supple, no tenderness CHEST : CTAB, no wheezing, no rhonchi HEART : RRR, no obvious murmurs ABDOMEN: Some distention, no abdominal tenderness EXTREMITIES : Minimal LE swelling, no LE tenderness, moves extremities NEUROLOGIC : Coherent, no facial asymmetry, speech fluent, moves extremities Discharge Data Allergies Allergy/AdvReac Type Severity Reaction Status Date / Time bee venom protein (honey bee) Allergy Severe ANAPHYLAXIS Verified 01/06/23 20:05 coconut Allergy Severe RASH; SOB Verified 01/06/23 20:05 gluten Allergy Severe CELIAC'S Verified 01/06/23 20:05 iron Allergy Severe SOB,TACHY Verified 01/06/23 20:05 WITH IV IRON latex Allergy Severe Anaphylaxis Verified 01/06/23 20:05 Penicillins Allergy Severe Anaphylaxis Verified 01/06/23 20:05 Sulfa (Sulfonamide Allergy Severe Anaphylaxis Verified 01/06/23 20:05 Antibiotics) ROBER Inhibitors Allergy Intermediate RASH/TACHYC Verified 01/06/23 20:05 ARDIA cefaclor Allergy Intermediate CECLOR--RASH/UPSET Verified 01/06/23 20:05 STOMACH egg Allergy Intermediate RASH & Verified 01/06/23 20:05 Bloating Influenza Virus Vaccines Allergy Intermediate rash and Verified 01/06/23 20:05 bloating lactose Allergy Intermediate RASH; Verified 01/06/23 20:05 BLOATING; DIARRHEA; VOMITING tetracycline Allergy Intermediate NAUSEA/VOMI Verified 01/06/23 20:05 TING/RASH Quinolones Allergy Unknown ALLERGY TO Verified 01/06/23 20:05 AVELOX ,CAN TAKE CIPRO OR LEVAQUIN W/O RXN Beta-Blockers AdvReac Intermediate intolerance Verified 01/06/23 20:44 (Beta-Adrenergic Bloc as per records Consultations 01/06/23 19:35 ED Decision to Admit Stat 01/06/23 22:15 Consult Cardiology Routine Ordered Studies 01/06/23 19:29 CT angio chest PE protocol Stat FINDINGS: Pulmonary arteries: Unremarkable. Normal caliber main pulmonary artery. No evidence of acute pulmonary embolism as visualized; respiratory motion obscures the lower lobe subsegmental branches. Aorta: No acute findings. No thoracic aortic aneurysm or dissection. Lungs: Unremarkable. No mass. No consolidation. Pleural space: Unremarkable. No significant effusion. No pneumothorax. Heart: Stable heart size. No significant coronary artery atherosclerosis. No right ventricular strain. No pericardial effusion. Bones/joints: No acute fracture or dislocation. Posterior fixation hardware in the lower cervical spine extending to the T1 level. Old left rib fractures. Soft tissues: Unremarkable. Lymph nodes: Unremarkable. No adenopathy. Gallbladder and bile ducts: Cholecystectomy. Adrenals: Stable benign left adrenal adenoma. Tubes, lines and devices: Right chest wall port catheter with tip in the distal SVC. IMPRESSION: 1. No evidence of acute pulmonary embolism as visualized. 2. No acute findings in the chest. 01/06/23 20:34 US venous doppler LE BI Routine FINDINGS: There is no sonographic evidence of deep venous thrombosis identified in the right or left lower extremity. The common femoral, superficial femoral, and popliteal veins are patent and normally compressible bilaterally. The greater saphenous vein and the profunda femoris vein at the junction with the common femoral vein are clear in both legs. The visualized calf veins are patent bilaterally. A right popliteal cyst measures 2.3 x 1.1 x 1.7 cm and a left popliteal cyst measures 1.8 x 0.6 x 2.1 cm. IMPRESSION: 1. There is no sonographic evidence of deep venous thrombosis identified in the right or left lower extremity. 2. Bilateral popliteal cysts. Hospital Course (1) PAF (paroxysmal atrial fibrillation): Transient A-fib noted on outpatient EKG, new onset History of PAT as per records Patient currently NSR. Fluid retention possible right-sided heart failure -> euvolemic on exam now. 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 anemia H&H stable post transfusion - current 8.9 Admitted to PCU receiving 1 unit pRBC (01/07/23) post transfusion H&H improved Titrate home calcium channel harsha (patient has history of beta-harsha intolerance)-> verapamil increased to 80 bid IV heparin for thromboembolic prophylaxis initially but now stopped as AM Hgb down to 7 -> pt can not be anticoagulated (discussed in detail w/ cardiology as well - will continue w/ aspirin 81 daily) Lasix 1 dose on admission for possible right-sided CHF Strict I/Os, daily weights, CHF education TTE obtained -mild concentric LVH. LV wall motion is normal. LV systolic function is normal. LVEF 55%. There is mild tricuspid regurg. Doppler findings do not suggest pulmonary hypertension Cardiology consulted Re: PAF, possible CHF Agree w/ increased dose of verapamil 80 bid, not a candidate for anticoagulation- cont. w/ ASA 81 daily,, euvolemic at this time Outpatient follow-up with sleep medicine, patient needs new CPAP machine Update hemoglobin A1c - urrent 6.6% hx GERD/irritable bowel syndrome hypothyroidism, euthyroid as of current TSH Hyperglycemia, likely prediabetes, hemoglobin A1c of 5.9 last year, Update hemog lobin A1c -> current 6.6% - follow up as outpt Total Time Total Time Spent Total Time Spent (In Minutes): 40 Discharge Plan Discharge Items Patient Disposition: Home - Self-Care Reason For Visit: AF, SYMPTOMATIC ANEMIA Discharge Diagnosis: New onset Afib Symptomatic anemia Activity: Per Instructions section Non-emergency contact: Primary Care Provider Call non-emergency contact if: you have any medication questions and your symptoms worsen Follow-up/Referrals: Christiano Muñoz MD [Primary Care Provider] - (Date & Time 01/18/2023 11:20 AM Provider Christiano Muñoz MD Department Family Medicine [facility] ) Diet: Heart Healthy Addtl Attending Provider Instructions: Follow-up with your primary care physician, the appointment was scheduled for you for January 18. You will need to follow-up on your anemia, likely follow-up with scheduling analyst, and/or gastroenterology. Also recommend that you follow-up with sleep medicine on your sleep apnea/ cpap machine. Your verapamil dose was increased to 80 mg twice a day. Continue taking aspirin 81 mg daily. Pending Studies at Discharge: No Stand-Alone Forms: My [employer], Smoking Cessation Medications and DC Order Prescriptions: New verapamil 40 mg Tablet 80 mg PO BID Qty: 60 0RF Continued aspirin [Kerwin Low Dose Aspirin] 81 mg Tablet,Delayed Release (Dr/Ec) 81 mg PO DAILY ondansetron 4 mg tablet,disintegrating 4 mg translingual Q8H PRN (Reason: Nausea) fexofenadine 180 mg Tablet 180 mg PO DAILY levothyroxine 100 mcg Tablet 100 mcg PO DAILYBB montelukast 10 mg Tablet 10 mg PO DAILY rabeprazole 20 mg Tablet,Delayed Release (Dr/Ec) 40 mg PO BID ropinirole 1 mg Tablet 1 mg PO HS amitriptyline 75 mg Tablet 75 mg PO HS cimetidine 400 mg Tablet 400 mg PO BID sucralfate [Carafate] 1 gram Tablet 1 g PO ACHS hyoscyamine sulfate 0.375 mg Tablet Extended Release 12 Hr 0.375 mg PO Q6H PRN (Reason: abd pain) ergocalciferol (vitamin D2) [Vitamin D2] 1,250 mcg (50,000 unit) Capsule 1,250 mcg PO 2XWK Rx Instructions: wednesday & polyethylene glycol 3350 [Miralax] 17 gram/dose Powder 17 g PO QID PRN (Reason: FOR AT LEAST 1 STOOL DAILY) topiramate [Topamax] 100 mg Tablet 100 mg PO BID multivitamin Tablet 1 tab PO DAILY fluticasone propion-salmeterol [Advair Diskus] 250-50 mcg/dose Blister With Device 1 inh INHALATION BID sennosides [senna] 8.6 mg Tablet 8.6 mg PO DAILY PRN (Reason: Constipation) triamcinolone acetonide 0.1 % Cream 1 applic TOPICAL BID PRN (Reason: PSORIASIS-ELBOWS/KNEES/HAIRLINE) ferrous sulfate 325 mg (65 mg iron) Tablet 325 mg PO QID docusate sodium 100 mg Capsule 100 mg PO BID PRN (Reason: Constipation) mometasone [Nasonex] 50 mcg/actuation [place],Non-Aerosol 2 spray INTRANASAL BID Rx Instructions: administer into each nostril levalbuterol HCl [Xopenex] 1.25 mg/3 mL Solution For Nebulization 1.25 mg INHALATION QID PRN (Reason: WHEEZING/SHORT OF BREATH) azelastine 137 mcg (0.1 %) Aerosol,[place] 1 spray INTRANASAL BID Rx Instructions: administer into each nostril epinephrine [EpiPen] 0.3 mg/0.3 mL Auto-Injector 0.3 mg IM DIRECTED PRN (Reason: Allergic Reaction) Combivent Respimat 20-100 mcg/actuation Mist 1 puff INHALATION QID PRN (Reason: USE IN PLACE OF XOPENEX IF NEEDED) Rx Instructions: space evenly during waking hours Emgality Pen 120 mg/mL pen injector 120 mg SUBCUT MONTHLY Discontinued verapamil 40 mg Tablet 80 mg PO DAILY Discharge Orders: Discharge Order (Routine); Ordered 01/09/23 Ordered By: Fabrizio Brower/Maria Isabel Patient Handouts: A1C Admission Data Admit Date/Time: 01/06/23 20:39 Attending Provider: Fabrizio Sanches Admit Provider: Mike Johnson Primary Care Provider: Christiano Muñoz Other Providers: Mike Johnson ; Anna Neal ; Live Girard ; Eloy Morillo ; Silverio Aguirre ; Angel Liriano ; Ayaz Garcia ; Damaris Hammer ; Vivi Jordan ; Anna Nesbitt ; Yinka Hartman ; Tim Guzmán
== END 2023-01-09 12:08 | disposition home or self-care (01) | DRG 310 ==
LOC: ED 17:48 → 4W 20:39

== ENCOUNTER 2023-11-13 12:05 | Inpatient (IN) ==
--- OUTSIDE RECORDS SUMMARY | 2023-11-13 12:20 | External Medical Summary | Summary of Care ---
Author Name Unknown Organization [facility] Address [address] [place] [address] Phone [phone] Care Team Providers Care Forest Pathologist Name Role Phone Unavailable Primary Care Provider Unavailabl e Reason for Visit * Reason Comments Outpatient Testing Encounter Details Date Type Department Care Team (Late st Contact Info) Description 09/29/2023 1:10 PM EDT Laboratory Laboratory [address] [place] [phone] [address] [place] [address] Chronic hypokalemia; Encounter for long-term (current) use of medications; Acquired hypothyroidism Allergies Active Allergy Reactions Criticality Noted Date Comments Edin Inhibitors Rash,Tachycardia 11/09/2017 Bee Stings Anaphylaxis High 09/03/2009 Cefaclor 03/24/2010 Rash, upset stomach Egg Phosphatides Rash 09/24/2009 Gluten High 06/01/2012 Influenza Vaccines 04/07/2022 Allergy to egg Iron 12/31/2005 IV IRON DEXTRAN- BUT tolerates venofer iron sucrose given inpatient 04/23/22 Lactose 03/02/2011 Bloating , diarrhea, vomiting Latex Anaphylaxis High 12/31/2005 anaphylaxis Other - Foods 09/24/2009 Coconut causes rash, SOB Penicillins Anaphylaxis High 12/31/2005 Rash, shortness of breath, tongue swelling, anaphylaxis Sulfa Antibiotics Anaphylaxis,Rash High 12/31/2005 Anaphylaxis Tetracyclines & Related Nausea/vomiting,Rash 12/31/2005 documented as of this encounter (statuses as of 09/29/2023) Medications Medication Sig Dispensed Refills Start Date End Date Status MULTIVITAMINS PO TABS 1 TABLET DAILY 0 04/17/2010 Active MIRALAX PO POWD 1 Cap full in juice up to 4 times a day to effect 1 stool per day 1 Bottle 3 04/17/2010 Active ASPIRIN EC 81 MG PO TBEC Take one pill daily 0 01/27/2012 Active FERROUS SULFATE 325 (65 FE) MG PO TABSIndications:Iron deficiency anemia One pill by mouth 4 times a day 0 09/13/2012 Active Mometasone Furoate (NASONEX) 50 MCG/ACT nasal sprayIndications:Allerg ic rhinitis,Chronic sinusitis Administer 2 Sprays into each nostril 2 times a day. 2 Inhaler 1 06/06/2015 Active Azelastine HCl (ASTELIN) 0.1 % nasal sprayIndications:Allerg ic rhinitis Administer 1 [place] into nostril 2 times a day. 3 Bottle 3 06/05/2015 Active oxygen GASIndications:Hypoxemi a 1 LPM bled through CPAP 4 cwp during hours of sleep (10 hours per day) 1 Each 0 11/08/2015 Active montelukast (SINGULAIR) 10 MG TabletIndications:Asthm a, severe persistent TAKE ONE TABLET BY MOUTH ONE TIME DAILY 90 Tab 1 07/09/2016 Active levothyroxine (LEVOXYL) 100 MCG TabletIndications:Hypot hyroidism TAKE ONE TABLET BY MOUTH EVERY DAY 90 Tab 1 06/15/2017 Active Vitamin D (Ergocalciferol) 1.25 MG (35884 UT) Oral Capsule Take 1 Cap by mouth once a week. 8 Cap 0 11/18/2020 Active Amitriptyline HCl 75 MG Oral Tablet (Elavil)Indications:Elvis priya without aura TAKE ONE TABLET BY MOUTH NIGHTLY AT BEDTIME 90 Tablet 3 08/08/2021 Active rOPINIRole HCl 1 MG Oral Tablet (Requip)Indications:Res tless leg syndrome Take by mouth 1 Tablet before bedtime. 90 Tablet 1 08/08/2021 Active Fluticasone-Salmeterol 250-50 MCG/DOSE Inhalation Aerosol Powder Breath Activated (Advair Diskus) Inhale by mouth 1 Puff in the morning AND 1 Puff before bedtime. 180 Each 3 08/29/2021 Active EpiPen 2-All 0.3 MG/0.3ML Injection Solution Auto-injectorIndication s:Severe allergy to eggs For a severe reaction: Place orange end against the outer thigh, press firmly, hold in place for 10 seconds and go to the Emergency room. 1 Each 1 11/06/2021 Active Triamcinolone Acetonide 0.1 % External Cream (Aristocort)Indications :Intrinsic eczema Apply to elbows and knees and hairline for psoriasis twice a day 80 g 12/23/2021 Active Topiramate 100 MG Oral Tablet (topAMAX)Indications:Mi graine without aura Take by mouth 1 Tablet in the morning AND 1 Tablet before bedtime. 180 Tablet 03/02/2022 Active Cimetidine 400 MG Oral Tablet (Tagamet)Indications:Ga stroesophageal reflux disease with esophagitis Take by mouth 1 Tablet in the morning AND 1 Tablet before bedtime. 180 Tablet 03/02/2022 Active Hyoscyamine Sulfate ER 0.375 MG Oral Tablet Extended Release 12 Hour (Levbid)Indications:IBS (irritable bowel syndrome) TAKE ONE TABLET BY MOUTH EVERY 6 HOURS NEEDED FOR ABDOMINAL PAIN 180 Tablet 03/02/2022 Active RABEprazole Sodium 20 MG Oral Tablet Delayed ReleaseIndications:GERD (gastroesophageal reflux disease) Take by mouth 2 Tablets in the morning AND 2 Tablets before bedtime. 120 Tablet 03/02/2022 Active Fexofenadine HCl 180 MG Oral Tablet (Yuliya)Indications:Al lergic rhinitis,Asthma, severe persistent Take by mouth 1 Tablet in the morning. 30 Tablet 03/23/2022 Active Sucralfate 1 GM Oral Tablet (Carafate)Indications:H istory of IBS Take 1 Tablet (1 g) by mouth in the morning and 1 Tablet (1 g) at noon and 1 Tablet (1 g) in the evening and 1 Tablet (1 g) before bedtime. TAKE ONE TABLET BY MOUTH FOUR TIMES DAILY . 120 Tablet 05/22/2022 Active Emgality 120 MG/ML Subcutaneous Solution Auto-injector (Galcanezumab-gnlm)Shelley cations:Chronic migraine without aura without status migrainosus, not intractable Inject 1 mL under the skin Every Month. 1 mL 10/12/2022 Active Ondansetron 4 MG Oral Tablet DisintegratingIndicatio ns:Nausea Place 1 Tablet on tongue every 8 hours as needed for Nausea. dissolve on tongue. 30 Tablet 1 01/18/2023 Active Ipratropium-Albuterol 20-100 MCG/ACT Inhalation Aerosol Solution (Combivent Respimat)Indications:As thma, severe persistent INHALE ONE DOSE BY MOUTH FOUR TIMES A DAY NEEDED IN PLACE OF NEBULIZED XOPENEX 4 g 5 03/09/2023 Active Levalbuterol HCl 1.25 MG/3ML Inhalation Nebulization SolutionIndications:Ast hma, severe persistent Inhale 3 mL via nebulizer 4 times a day as needed for Wheezing or Shortness of Breath. Use in place of Combivent. 180 mL 0 03/09/2023 Active Ondansetron HCl 4 MG Oral TabletIndications:Viral URI with cough Take 1 Tablet by mouth every 6 hours as needed for Nausea. 30 Tablet 0 06/21/2023 Active guaiFENesin-Codeine 100-10 MG/5ML Oral Syrup (Robitussin AC)Indications:Viral URI with cough Take 5 mL by mouth every 4 hours as needed for Cough. 120 mL 0 06/21/2023 Active Verapamil HCl 80 MG Oral Tablet (Isoptin)Indications:At rial fibrillation by electrocardiogram (HCC) TAKE 1 TABLET BY MOUTH TWICE DAILY 180 Tablet 0 07/27/2023 Active documented as of this encounter (statuses as of 09/29/2023) Active Problems Problem Noted Date Diagnosed Date Atrial fibrillation by electrocardiogram 023 H/O excision of lamina of ce rvical vertebra for decompression of spinal cord 04/22/2022 Red blood cell antibody posi tive with compatible PRBC difficult to obtain 12/19/2021 Overview: Anti-e, possible anti-C; <1% of donors likely compatible Cervical stenosis of spinal canal 04/23/2020 Overview: severe at C5-6 and C6-7 Iron deficiency anemia 11/09/2017 CKD (chronic kidney disease), stage II 7 Chronic hypokalemia 03/10/2012 Adrenal nodule 07/30/2011 Pancreas divisum 07/30/2011 ALLERGIC RHINITIS - MIXED TYPE 04/16/2011 Deviated nasal septum 04/16/2011 Overview: with perforation Severe allergy to eggs 04/16/2011 Overview: egg - ? anaphylaxis coconut, milk, wheat - nausea, vomiting, throat swelling skin test negative to these foods tested Hypersomnia with sleep apnea 09/05/2010 Vitamin D deficiency 06/30/2010 Celiac disease 06/24/2010 CYNTHIA (obstructive sleep apnea) 04/23/2010 Overview: 11/05/15 PSG - CPAP 4 cwp with 1 LPM 09/06/09 PSG -- AHI 24.5 (3 centrals, 50 obstructions, 5 mixed, 65 hypopneas), PVCs noted 10/2009 -- CPAP initiatedat 12 cwp, with improved daytime fatigue 11/29/09 MSLT -- mean sleep onset 1.4 mins, no REM x4 naps 04/09/10 -- Oxygen was added at 2L on discharge from [facility] 04/26/10 Noct ox CPAP/RA -- <89% 5:12 mins, PAMELLA 15.8 05/21/10 PSG -- CPAP titrated to 8 cwp COMPLIANCE 12/05/09 to 06/26/10 -- >=4 hrs used 33% of total days, device used 56% of days 07/17/10 PSG -- ? REM rebound with 32% or 127 mins in REM, CPAP at 8 cwp with AHI 1.5 07/18/10 MWT -- neg drug screen, mean sleep latency was 2.5 mins COMPLIANCE 07/18/10 to 09/08/10 -- >=4 hrs used 37.7% of total days, device used 68% of days, 4:27 hr average on days used T&B - CPAP Care Plus - Oxygen Can't change to auto. Asthma, severe persistent 04/18/2010 Overview: PFT 05/07/10 - normal spirometry, no improvement with albuterol, normal lung volumes, mildly decreased DL/VA 11/18/04 - Alpha 1 antitrypsin 151 (83-199), EDIN 73 (9-67) 12/30/99 - Left lingular biopsy at [facility] s/t frequent URI and nodularity at lingula on CXR. Path showed "a focus of fibrosis is noted adjacent to a fibromuscular blood vessel." Mild non specific focal fibrosis. Gastroesophageal reflux dise ase with esophagitis without hemorrhage 04/17/2010 Irritable bowel syndrome 02/26/2010 Acquired hypothyroidism 11/29/2009 Dyslipidemia, goal LDL below 130 11/26/2009 Migraine without aura 04/15/2009 Overview: Vicodin rx given on 10/15/2010 Vicodin bid rx, 60 tabs, 2 refills. Pt to gets narcotics from neuro Not from PCP Palpitations 04/15/2009 Overview: Left venticular tachycardia Restless leg syndrome 04/15/2009 ADVANCE DIRECTIVE INFORMATION 12/31/2005 Overview: Explained to patient, no Endometriosis 12/31/2005 Statin intolerance Paroxysmal tachycardia Stroke-like symptom S/P laminectomy with spinal fusion documented as of this encounter (statuses as of 09/29/2023) Resolved Problems Problem Noted Date Diagnosed Date Resolved Date Postoperative anemia due to acute blood loss 2 01/06/2023 Stage 3a chronic kidney disease 06/18/2021 07/17/2021 Overview: EGFR 50 Iron deficiency anemia 09/19/201508/18 Munchausen syndrome 02/22/2012 02/22/20 12 LILLIANA (acute kidney injury) 02/20/2012 Elevated LFTs 02/07/2012 12/10/2015 Hypokalemia 02/03/2012 01/14/2015 Gastric ulcer 12/11/2011 01/14/2015 Abdominal pain, epigastric 09/11/2011 0 12/10/2015 SOB (shortness of breath) 08/28/2011 Abnormal results of liver function studies 03/30/2011 12/10/2015 HTN, goal below 140/90 02/23/201102/23 Edema 01/20/2011 08/18/2017 Painful respiration 01/07/2011 05/11/20 11 Spasm of muscle 12/29/2010 05/19/2016 Esophageal reflux 12/23/2010 05/11/2011 Feces contents abnormal 12/17/2010 06/01/2016 COPD, severity to be determined 04/18/2010 05/07/2010 Acute gastric ulcer without mention of hemorrhage, perforation, or obstruction 04/17/2010 01/14/2015 Acute duodenal ulcer without mention of hemorrhage, perforation, or obstruction 04/17/2010 01/14/2015 Diarrhea 04/17/2010 12/10/2015 IRON DEFIC ANEMIA NOS 11/27/20092017 Methicillin resistant Staphy lococcus aureus infection 09/24/2009 08/18/2017 Overview: First diagnosed 2000 CHRONIC PEPTIC ULCER NOS 04/15/2009 COPD with emphysema 05/11/20 11 Obstructive sleep apnea syndrome 05/11/2011 Hypothyroidism 12/10/2015 Reflux esophagitis 1 Vitamin D deficiency 011 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 05/11/20 11 Altered level of consciousness 04/30/2022 documented as of this encounter (statuses as of 09/29/2023) Immunizations Name Administration Dates Next Due Pneumococcal Conjugate Vaccine, 20-valent (Prevn ar20) 12/31/2021 Pneumococcal Polysaccharide PPV23 (Pneumovax) TDAP (age 10 and older)(Boostrix) 12/21/2016 TDAP (age 11 and older)(Adacel) 01/02/2005 documented as of this encounter Social History Tobacco Use Types Packs/Day Years Used Date Smoking Tobacco: Never Smokeless Tobacco: Never Comments:no passive smoke ex posures Alcohol Use Standard Drinks/Week Comments No 0 (1 standard drink = 0.6 oz pur e alcohol) PHQ-2 Answer Date Recorded PHQ-2 Score 0 05/08/2018 Sex and Gender Information Value Date Recorded Sex Assigned at Not on file Gender Identity Not on file Sexual Orientation Not on file Job Start Date Occupation Industry Not on file Not on file Not on file documented as of this encounter Functional Status Functional Status Response Date of Assess ment Are you deaf or do you have serious difficulty h earing? No 04/22/2022 Are you blind or do you have serious difficulty seeing, even when wearing glasses? No 04/22/2022 Do you have serious difficul ty walking or climbing stairs? (5 years old or older) No 04/22/2022 Do you have difficulty dress ing or bathing? (5 years old or older) No 04/22/2022 Because of a physical, menta l, or emotional condition, do you have difficulty doing errands alone such as visiting a doctor s office or shopping? (15 years old or older) No 04/22/20 Cognitive Status Response Date of Assessm ent Because of a physical, menta l, or emotional condition, do you have serious difficulty concentrating, remembering, or making decisions? (5 years old or older) No 04/22/2022 documented as of this encounter Plan of Treatment Pending Results Name Type Priority Associated Diagnoses Date /Time BASIC METABOLIC PANEL Lab Routine Chronic hypokalemia Encounter for long-term (current) use of medications 09/29/2023 1:09 PM EDT TSH WITH FREE T4 IF INDICATED Lab Routine Acquired hypothyroidism Encounter for long-term (current) use of medications 09/29/2023 1:09 PM EDT Scheduled Procedures Name Priority Associated Diagnoses Date/Ti me COLONOSCOPY FLEXIBLE PROXIMAL DIAGNOSTIC Recall Special screening for malignant neoplasms, colon Iron deficiency anemia due to chronic blood loss ESOPHAGOGASTRODUODENOSCOPY ( EGD), FLEXIBLE, TRANSORAL, DIAGNOSTIC Recall Special screening for malignant neoplasms, colon Iron deficiency anemia due to chronic blood loss Health Maintenance Due Date Last Done Comments HIV Screening 1976 Cologuard 2006 Sigmoidoscopy 2006 Zoster Vaccines (1 of 2) 2011 Fecal Occult Blood Test 08/11/2013 08/11/2012 Mammogram 01/31/2015 01/31/2014, 12/04, 11/20/2011, Additional history exists Depression Screening 02/15/2019 02/15/2018 Colonoscopy 03/26/2021 03/26/2011, 03/06, 04/11/2010 Colorectal Cancer Screening 03/26/2021 COVID-19 Vaccine ( season) 2023 Influenza Vaccine (FLU shot) (#1) 2023 TSH 07/08/2023 07/08/2022, 10/04, 04/02/2017, Additional history exists Lipid Panel 10/23/2025 10/23/2020, 08/06, 12/03/2014, Additional history exists DTaP,Tdap,and Td Vaccines (3 - Td or Tdap) 12/21/2026 12/21/2016, 01/02/2005 Pneumococcal Vaccine: Pediatrics (0 to 5 Years) and At-Risk Patients (6 to 64 Years) Completed 12/31/2021, 07/05/2004 GARDASIL-HPV IMMUNIZATION SERIES Aged Out No longer eligible based on patient's age to complete this topic Hepatitis B Aged Out No longer eligi ble based on patient's age to complete this topic MENINGOCOCCAL (MENACTRA/MENVEO) Aged Out No longer eligible based on patient's age to complete this topic documented as of this encounter Medical Devices Implanted Type Area Men'S Basketball Coach Device Identifier Shelf Expiration Date Model / Serial / Lot Dbx 5cc [id number] - [id number] Implanted:Qt y: 1 on 04/22/2022 by Jaspreet Georges MD at OR [facility] [place] Tissue - Human MUSCULOSKELETAL TRANSPLANT FND [id number] 11/22/2023 [id number] / [id number] / LOT NA Vitoss Bimodal Foam Pack 2.5cc - [id number] Implanted:Qt y: 1 on 04/22/2022 by Jaspreet Georges MD at OR [facility] [place] WILVER : SPINE [id number] 04/01/2023 210- 190 2 / [id number] / [id number] Vitoss Bimodal Foam Pack 2.5cc - [id number] Implanted:Qt y: 1 on 04/22/2022 by Jaspreet Georges MD at OR [facility] [place] WILVER : SPINE [id number] 09/01/2023 2102- 190 2 / [id number] / [id number] [place] Screw Set Implanted:Qt y: 10 on 04/22/2022 by Jaspreet Georges MD at OR [facility] [place] N/A: Spine Cervical 7601-100 01 / / [place] 3.5 X 12mm Screw Implanted:Qt y: 4 on 04/22/2022 by Jaspreet Georges MD at OR [facility] [place] N/A: Spine Cervical 7601-035 12 / / [place] 3.5 X 10mm Screw Implanted:Qt y: 3 on 04/22/2022 by Jaspreet Georges MD at OR [facility] [place] N/A: Spine Cervical 7601-035 10 / / [place] 4.0 X 10mm Screw Implanted:Qt y: 1 on 04/22/2022 by Jaspreet Georges MD at OR [facility] [place] N/A: Spine Cervical [id number] 10 / / [place] 4.5 X 22mm Screw Implanted:Qt y: 2 on 04/22/2022 by Jaspreet Georges MD at OR [facility] [place] N/A: Spine Cervical [id number] 22 / / [place] 3.5 X 75mm [place] Implanted:Qt y: 2 on 04/22/2022 by Jaspreet Georges MD at OR [facility] [place] N/A: Spine Cervical [id number] 75 / / documented as of this encounter Visit Diagnoses Diagnosis Chronic hypokalemia Hypopotassemia Encounter for long-term (current) use of medications Encounter for long-term (current) use of other medications Acquired hypothyroidism Unspecified hypothyroidism documented in this encounter Advance Directives Latest Code Status on File Code Status Date Activated Date Inactivated Comments Full Code 04/22/2022 1:27 PM 04/27/2022 4:07 PM Thi s order reflects the patients wishes and were consensually agreed upon. Question Answer Comments Discussion of Advance Directives occurred with: Not Discussed due to patient's condition Code Status History Code Status Date Activated Date Inactivated Comments Full Code 04/22/2022 6:45 AM 04/22/2022 1:27 PM Thi s order reflects the patients wishes and were consensually agreed upon. Question Answer Comments Discussion of Advance Directives occurred with: Not Discussed due to patient's condition Full Code 02/15/2012 4:26 PM 02/22/2012 9:50 PM This order reflects the patients wishes and were consensually agreed upon. Question Answer Comments Discussion of Advance Directives occurred with: Patient Full Code 08/03/2011 6:27 PM 08/06/2011 2:41 PM This o rder reflects the patients wishes and were consensually agreed upon. Question Answer Comments Discussion of Advance Directives occurred with: Patient Does the patient have a Living Will? No Does the patient have Health Care Power of Core Man? No
--- OUTSIDE RECORDS SUMMARY | 2023-11-13 12:20 | External Medical Summary ---
Author Name Unknown Address Unknown Organization [id number]:[facility] - [facility] [address] [place] [address] Laboratory Report Ordering Provider Test Date Status ELAINE STILES 09/29/2023 13:09:52 Final Observation Date Value Abnormality Reference (Units ) Status BUN 09/29/2023 13:09:52 15 6-20 (mg/dL) Final Creatinine 09/29/2023 13:09:52 0.8 0.5-1.0 (mg/dL) Final Glomerular filtration rate/1.73 sq M.predicted [Volume Rate/Area] in Serum, Plasma or Blood by Creatinine-based formula (CKD-EPI) 09/29/2023 13:09:52 81 >=60 (mL/min) Final eGFR is calculated based on the CKD-EPI 2020 equation Sodium 09/29/2023 13:09:52 141 135-146 (m mol/L) Final Potassium 09/29/2023 13:09:52 4.0 3.5-5.1 (m mol/L) Final Cl 09/29/2023 13:09:52 105 98-107 (mm ol/L) Final CO2 09/29/2023 13:09:52 24 22-32 (mmo l/L) Final Anion gap 09/29/2023 13:09:52 12 7-15 (mmol /L) Final Glucose 09/29/2023 13:09:52 81 70-120 (mg /dL) Final Calcium 09/29/2023 13:09:52 9.4 8.4-10.2 ( mg/dL) Final Performing Location [facility] - [facility] [address] [facility] [address] [place] [address]
--- OUTSIDE RECORDS SUMMARY | 2023-11-13 12:20 | External Medical Summary ---
Author Name Unknown Address Unknown Organization [id number]:[facility] [place] [address] [place] [address] Laboratory Report Ordering Provider Test Date Status ELAINE STILES 09/29/2023 13:09:52 Final Observation Date Value Abnormality Reference (Units ) Status TSH 09/29/2023 13:09:52 1.71 0.27-4.20 (uIU/mL) Final Performing Location [facility] - [address] [place] [id number]
--- NOTE | 2023-11-13 12:39 | Emergency Department Note ---
Impression & Plan Palpitation, Dyspnea, Syncope, Anemia, Elevated brain natriuretic peptide (BNP) level ED Provider Note ED Provider Note NAME: SHAYY CARRILLO AGE:63 SEX: Female : 1960 ARRIVES VIA: private vehicle INFORMANT: Patient ED PROVIDER(s): Swapna Harrell DO CHIEF COMPLAINT: Palpitations, shortness of breath HPI: This is a 63-year-old female who presents emergency department complaining of palpitations, shortness of breath, and passing out. Patient states symptoms began 36 hours ago with intermittent palpitations which are similar to when she has had atrial fibrillation. She states she follows with Dr. Aguirre, was first diagnosed with A-fib last year. She states she does not use blood thinners, just low-dose aspirin as she has a history of anemia and peptic ulcer disease. She states she takes Tagamet and Aciphex for her stomach problems. She denies any recent illness of the does admit to a dry nonproductive cough. She states toddler age family members have also had URI symptoms however they suspect it is more likely to be seasonal allergies. Patient denies any other change in medications. She is concerned that her anemia could be worsening as she has been more cold recently. She denies any fevers, abdominal pain, or chest pain. She states she did pass out twice last night due to feeling weak and dizzy. She denies any injury and denies striking her head. PAST MEDICAL HISTORY:See Below PAST SURGICAL HISTORY:See Below FAMILY HISTORY:See Below SOCIAL HISTORY:See Below HOME MEDICATIONS:See Below ALLERGIES:See Below VITALS:See Below PHYSICAL EXAMINATION: GENERAL: alert, well appearing, well nourished, no distress, non-toxic EYE EXAM: normal conjunctiva, PERRL and EOM's grossly intact OROPHARYNX: no exudate, no erythema, lips, buccal mucosa, and tongue normal and mucous membranes are moist NECK: supple, no nuchal rigidity, no adenopathy, non-tender LUNGS: Clear to auscultation. Normal chest wall mechanics, no w/r/r HEART: no murmurs, S1 normal and S2 normal, port noted right anterior superior chest wall ABDOMEN: abdomen soft, non-tender, normo-active bowel sounds, no masses, no rebound or guarding. BACK: Back is symmetrical on inspection and there is no deformity, no midline tenderness, no CVA tenderness. SKIN: no rashes, petechiae, orbruising UPPER EXTREMITIES: upper extremities are grossly normal. FROM, nml pulses b/l. LOWER EXTREMITIES: No pitting edema. FROM, nml pulses b/l. NEURO EXAM: Normal sensorium, cranial nerves II-XII grossly intact, normal speech, no facial droop,nogross weakness of arms, no gross weakness of legs. Gross sensation intact. No ataxia. Vital Signs: reviewed and remarkable Differential Diagnosis: vasovagal event, anemia, sandip, infection, hypoglycemia, electrolyte abnormalities, toxidrome, substance abuse, dysrhythmia, ACS, as well as others were entertained. MEDICAL DECISION MAKING: This is a 63-year-old female presents emerged part due to concern for palpitations, shortness of breath, and 2 episodes of syncope at home. She was afebrile vital signs stable. Labs drawn and sent, IV established, EKG and chest ray performed at bedside and interpreted by me. Patient monitored on telemetry and remained in normal sinus rhythm. Occasional PVCs noted, no other ectopy or dysrhythmia. Patient given gentle IV fluid hydration. On review of EMR, patient with significant cardiac history. Patient most concerned about recurrent atrial fibrillation. Cardiology notes also state prior history of ventricular tachycardia as well as cardiac arrest. Patient noted to have elevated BNP although no evidence of fulminant congestive heart failure. Prior echo is reviewed in EMR was reassuring. I suspect this likely contributes to patient's shortness of breath which may have been contribute to dizziness and syncope. Patient also noted to be anemic. Patient states she has noted in the past she has been symptomatic with her anemia whenever her levels drop less than 9.8. Given complicated past medical history and concerning symptoms today, case discussed with the hospitalist team for additional evaluation and management. Consultation(s): 1430: Discussed with Nancy Montes hospitalist team, for additional evaluation and management. ER Treatment Provided: See below Diagnostics Interpreted By Me: -ECG: Sinus at 99, normal axis, normal intervals, nonspecific ST/T wave changes, PVC noted -Cardiac Monitoring: An order was placed for continuous cardiac monitoring. The monitor shows a rate of 82 with normal sinus rhythm. -Laboratory studies: As stated above and show below. -Imaging studies: X-ray Chest: A single view study of the chest was reviewed and was negative for cardiomegaly, focal infiltrate, effusion, pulmonary edema, or wide mediastinum. Triage Nursing Note Reviewed Prior/Outside Records Reviewed -review of prior cardiology visit also notes patient with a history of VT and cardiac arrest Past Med/Surg History Medical History Elevated LFTs Chronic anemia Dehydration Colitis with rectal bleeding Bloody diarrhea Hypertension Adrenal cyst monitoring Kidney stones no surgery Chronic back pain Degenerative disc disease Osteoarthritis Hx of sepsis ~2017 treated at [facility]. Anxiety Mitral valve prolapse follows with Dr Aguirre Heart yudi Narcolepsy Chronic obstructive pulmonary disease Sleep apnea CPAP -- have not used in about a year (it broke and has not yet been fixed) NSVT (nonsustained ventricular tachycardia) Asthma, severe persistent Gastroparesis Celiac disease GERD (gastroesophageal reflux disease) IBS (irritable bowel syndrome) Hypothyroidism no current medication -- TSH normal without meds. CHARLES (iron deficiency anemia) ferrous sulfate QID. Dyslipidemia MRSA (methicillin resistant Staphylococcus aureus) 1999 dx nose septum wound 2019 dx in lungs Surgical History History of esophagogastroduodenoscopy (EGD) History of colonoscopy History of section x1 History of dilatation and curettage History of bilateral tubal ligation S/P GLENNY-BSO S/P surgery on nasal septum "collapsed septum" s/p post op infection that "ate away the septum" S/P nasal surgery Hx of cholecystectomy History of arthroscopic knee surgery left Hx of cardiac cath "2009 - normal coronaries" Family History Other No family history of adverse response to anesthesia Social History Smoking Status: Never smoker Second Hand Exposure: No; Do You Dip or Chew Tobacco: No; Hx Alcohol Use: No Hx Substance Use: No Preferred Language: Nepalese Communication Ability: Effective Health Safety Manager Required: No Beliefs That Will Affect Care: None marital status: Current Living Situation: Spouse and Family Current Living Situation Comment: and adult son Other Information That Helps Us Care for You: No Feels Safe at Home: Yes Safety Concerns: Feels Safe At This Time Assistive Devices: Denture - Upper, Glasses and Oxygen - at Night Allergies Allergies Allergy/AdvReac Type Severity Reaction Status Date / Time bee venom protein (honey bee) Allergy Severe ANAPHYLAXIS Verified 01/06/23 20:05 coconut Allergy Severe RASH; SOB Verified 01/06/23 20:05 gluten Allergy Severe CELIAC'S Verified 01/06/23 20:05 iron Allergy Severe SOB,TACHY Verified 01/06/23 20:05 WITH IV IRON latex Allergy Severe Anaphylaxis Verified 01/06/23 20:05 Penicillins Allergy Severe Anaphylaxis Verified 01/06/23 20:05 Sulfa (Sulfonamide Allergy Severe Anaphylaxis Verified 01/06/23 20:05 Antibiotics) ROBER Inhibitors Allergy Intermediate RASH/TACHYC Verified 01/06/23 20:05 ARDIA cefaclor Allergy Intermediate CECLOR--RASH/UPSET Verified 01/06/23 20:05 STOMACH egg Allergy Intermediate RASH & Verified 01/06/23 20:05 Bloating Influenza Virus Vaccines Allergy Intermediate rash and Verified 01/06/23 20:05 bloating lactose Allergy Intermediate RASH; Verified 01/06/23 20:05 BLOATING; DIARRHEA; VOMITING tetracycline Allergy Intermediate NAUSEA/VOMI Verified 01/06/23 20:05 TING/RASH Quinolones Allergy Unknown ALLERGY TO Verified 01/06/23 20:05 AVELOX ,CAN TAKE CIPRO OR LEVAQUIN W/O RXN Beta-Blockers AdvReac Intermediate intolerance Verified 01/06/23 20:44 (Beta-Adrenergic Bloc as per records Home Meds Home Medications Medication Instructions Recorded Confirmed amitriptyline 75 mg tablet 75 mg PO HS 12/24/20 11/13/23 cimetidine 400 mg tablet 400 mg PO BID 12/24/20 11/13/23 ergocalciferol (vitamin D2) 1,250 1,250 mcg PO 2XWK 12/24/20 11/13/23 mcg (50,000 unit) capsule (Vitamin D2) polyethylene glycol 3350 17 17 g PO QID PRN FOR AT LEAST 1 12/24/20 11/13/23 gram/dose oral powder (Miralax) STOOL DAILY rabeprazole 20 mg tablet,delayed 40 mg PO BID 12/24/20 11/13/23 release ropinirole 1 mg tablet 1 mg PO HS 12/24/20 11/13/23 sucralfate 1 gram tablet (Carafate) 1 g PO ACHS 12/24/20 11/13/23 topiramate 100 mg tablet (Topamax) 100 mg PO BID 12/24/20 11/13/23 aspirin 81 mg tablet,delayed 81 mg PO QAM 04/06/21 11/13/23 release (Kerwin Low Dose Aspirin) fexofenadine 180 mg tablet 180 mg PO DAILY 05/08/21 11/13/23 levothyroxine 100 mcg tablet 100 mcg PO DAILYBB 05/08/21 11/13/23 montelukast 10 mg tablet 10 mg PO HS 05/08/21 11/13/23 ondansetron 4 mg disintegrating 4 mg translingual Q8H PRN Nausea 05/08/21 11/13/23 tablet azelastine 137 mcg (0.1 %) nasal 1 spray intranasal BID 01/06/23 11/13/23 spray aerosol epinephrine 0.3 mg/0.3 mL 0.3 mg IM DIRECTED PRN Allergic 01/06/23 11/13/23 injection, auto-injector (EpiPen) Reaction ferrous sulfate 325 mg (65 mg 325 mg PO QID 01/06/23 11/13/23 iron) tablet fluticasone 250 mcg-salmeterol 50 1 inh inhalation BID 01/06/23 11/13/23 mcg/dose blistr powdr for inhalation (Advair Diskus) ipratropium 20 mcg-albuterol 100 1 puff inhalation QID PRN USE IN 01/06/23 11/13/23 mcg/actuation mist for inhalation PLACE OF XOPENEX IF NEEDED (Combivent Respimat) levalbuterol HCl 1.25 mg/3 mL 1.25 mg inhalation QID PRN 01/06/23 11/13/23 solution for nebulization WHEEZING/SHORT OF BREATH mometasone 50 mcg/actuation nasal 2 spray intranasal BID 01/06/23 11/13/23 spray multivitamin 1 tab PO DAILY 01/06/23 11/13/23 sennosides 8.6 mg tablet (senna) 8.6 mg PO DAILY PRN Constipation 01/06/23 11/13/23 Previous Rx's Medication Instructions Recorded verapamil 40 mg tablet 80 mg (2 x 40 mg) PO BID #60 tabs 01/09/23 Results & Data (ED) Vital Signs Vital Signs - 24 hr 11/13/23 14:06 Pulse Rate [Apical] 102 H Respiratory Rate 17 Respiratory Effort / Characteristics Non-Labored Spontaneous Respiratory Depth Normal Blood Pressure [Left Arm] 128/76 Blood Pressure Mean [Left Arm] 93 Pulse Oximetry 94 Oxygen Delivery Method Room Air Laboratory Data 11/14/23 05:29 11/14/23 05:29 Lab Results 11/13/23 11/13/23 11/13/23 Range/Units 12:17 12:40 14:10 WBC 7.43 (4.8-10.8) K/ul RBC 4.66 (4.20-5.40) M/uL Hgb 9.6 L (12.0-16.0) g/dl Hct 34.7 L (37.0-47.0) % MCV 74.5 L (80.0-100.0) fL MCH 20.6 L (25.0-34.0) pg MCHC 27.7 L (32.0-36.0) g/dL RDW Std Deviation 45.7 (36.4-46.3) fL RDW Coeff of Reginaldo 17.2 H (11.5-14.5) % Plt Count 409 H (130-400) K/uL MPV 10.3 (9.4-12.4) fL Immature Gran % (Auto) 0.3 % Neut % (Auto) 70.1 % Lymph % (Auto) 20.6 % [place] % (Auto) 8.5 % Eos % (Auto) 0.1 % Baso % (Auto) 0.4 % Reticulocyte % (Auto) 1.39 (0.50-2.00) % Neut # (Auto) 5.21 (1.40-6.50) K/uL Lymph # (Auto) 1.53 (1.20-3.40) K/uL [place] # (Auto) 0.63 H (0.11-0.59) K/uL Eos # (Auto) 0.01 (0.00-0.50) K/uL Baso # (Auto) 0.03 (0.00-0.20) K/uL Reticulocyte # 0.060 (0.020-0.100) 10^6/uL Immature Gran # (Auto) 0.02 (0.01-0.20) K/uL Polychromasia 1+ Hypochromasia Present Sodium 140 (136-145) mmol/L Potassium 3.9 (3.5-5.1) mmol/L Chloride 108 H (98-107) mmol/L Carbon Dioxide 24 (21-32) mmol/L Anion Gap 8 (3-11) BUN 20 (6-23) mg/dl Creatinine 0.83 (0.6-1.2) mg/dl Est Cr Clr Drug Dosing 63.2 ml/min Est GFR ( Amer) 87.6 ml/min Est GFR (Non-Af Amer) 75.6 ml/min BUN/Creatinine Ratio 24.1 H (10-20) Glucose 101 H (70-99(Fasting)) mg/dl Calcium 9.4 (8.6-10.3) mg/dl Magnesium 1.9 (1.7-2.4) mg/dl Unsaturated IBC 441 H (155-355) mcg/dl Total Bilirubin 0.4 (0.2-1.0) mg/dl AST 16 (13-39) U/L ALT 11 (7-52) U/L Alkaline Phosphatase 87 (34-104) U/L Troponin I High Sens 8.7 (0-14) pg/ml B-Natriuretic Peptide 257 H (0-100) pg/ml Total Protein 7.0 (6.0-8.3) gm/dl Albumin 4.1 (3.4-5.0) gm/dl Globulin 2.9 (2.5-4.0) gm/dl Albumin/Globulin Ratio 1.4 (0.9-2) Lipase 11 (11-82) U/L Vitamin B12 479 (180-914) pg/ml Folate 3.39 L (>5.38) ng/ml TSH 1.425 (0.300-4.500) uIu/ml Urine Color Dark Yellow Urine Appearance Clear (Clear) Urine pH 6.0 (4.5-7.5) Ur Specific [place] 1.025 (1.000-1.030) Urine Protein 1+ H (Negative) Urine Glucose (UA) Negative (Negative) Urine Ketones Trace H (Negative) Urine Blood Negative (Negative) Urine Nitrite Negative (Negative) Urine Bilirubin 1+ H (Negative) Urine Urobilinogen Negative (Negative) Ur Leukocyte Esterase Trace H (Negative) Urine WBC (Auto) 0-5 (0-5) /hpf Urine RBC (Auto) 0-2 (0-2) /hpf U Hyaline Cast (Auto) 6-10 H (0-2) /lpf U Epithel Cells (Auto) 0-2 (0-2) /hpf Urine Bacteria (Auto) None Seen (None Seen) Urine Mucus Present A (None Prsent) Adenovirus (PCR) Not Detected (NotDetected) B. pertussis DNA (PCR) Not Detected (NotDetected) B.parapertussis DNA PCR Not Detected (NotDetected) C. pneumoniae DNA (PCR) Not Detected (NotDetected) Coronavirus OC43 (PCR) Not Detected (NotDetected) Coronavirus HKU1 (PCR) Not Detected (NotDetected) Coronavirus 229E (PCR) Not Detected (NotDetected) SARS-CoV-2 (PCR) Not Detected (NotDetected) Coronavirus NL63 (PCR) Not Detected (NotDetected) Human Metapneumovir PCR Not Detected (NotDetected) Influenza Type A (PCR) Not Detected (NotDetected) Influenza Type B (PCR) Not Detected (NotDetected) M. pneumoniae (PCR) Not Detected (NotDetected) Parainfluenza 1 (PCR) Not Detected (NotDetected) Parainfluenza 2 (PCR) Not Detected (NotDetected) Parainfluenza 3 (PCR) Not Detected (NotDetected) Parainfluenza 4 (PCR) Not Detected (NotDetected) RSV (PCR) Not Detected (NotDetected) Entero/Rhino (PCR) Not Detected (NotDetected) Administered Medications Acetaminophen (Acetaminophen 325 Mg Tab) 650 mg PO Q4H PRN PRN Reason: Pain or Fever Stop: 12/13/23 14:28 Last Admin: 11/13/23 21:28 Dose: 650 mg Documented By: ROMMEL Al Hydrox/Mg Hydrox/Simethicone (Aluminum/Magnesium Susp 30 Ml Udc) 15 ml PO Q4H PRN PRN Reason: Dyspepsia Stop: 12/13/23 14:28 Last Admin: 11/13/23 21:27 Dose: 15 ml Documented By: ROMMEL Amitriptyline HCl (Amitriptyline Hcl 25 Mg Tab) 75 mg PO HS [facility] Stop: 12/13/23 20:59 Last Admin: 11/13/23 21:16 Dose: 75 mg Documented By: ROMMEL Aspirin (Aspirin 81 Mg Ectab) 81 mg PO QAM JAYSHREE Stop: 12/14/23 08:59 Last Admin: 11/14/23 09:27 Dose: 81 mg Documented By: Azelastine HCl (Azelastine Hcl 0.1% Nasal 200 Sprays/27,400 Mcg Btl) 1 sprays NA BID JAYSHREE Stop: 12/13/23 20:59 Last Admin: 11/14/23 09:26 Dose: 1 sprays Documented By: Admin: 11/13/23 21:17 Dose: 1 sprays Documented By: ROMMEL Fluticasone/Vilanterol (Fluticasone/Vilanterol 100/25mcg 14 Puffs/Inhaler) 1 puffs INH DAILY JAYSHREE Stop: 12/14/23 08:59 Last Admin: 11/14/23 09:26 Dose: 1 puffs Documented By: Pantoprazole Sodium 40 mg/ (Syringe) 10 mls @ 5 mls/min IV BID JAYSHREE Stop: 12/13/23 20:59 Last Admin: 11/14/23 09:28 Dose: 5 mls/min Documented By: Admin: 11/13/23 21:15 Dose: 5 mls/min Documented By: ROMMEL Levothyroxine Sodium (Levothyroxine Sodium 100 Mcg Tablet) 100 mcg PO DAILYBB [facility] Stop: 12/14/23 06:29 Last Admin: 11/14/23 05:28 Dose: 100 mcg Documented By: ROMMEL Montelukast Sodium (Montelukast Sodium 10 Mg Tablet) 10 mg PO HS [facility] Stop: 12/13/23 20:59 Last Admin: 11/13/23 21:16 Dose: 10 mg Documented By: ROMMEL Ondansetron HCl (Ondansetron Inj 2 Mg/Ml 2 Ml Vial) 4 mg IV Q6H PRN PRN Reason: Nausea Stop: 12/13/23 14:28 Last Admin: 11/13/23 23:21 Dose: 4 mg Documented By: ROMMEL Ropinirole HCl (Ropinirole Hcl 1 Mg Tablet) 1 mg PO HS [facility] Stop: 12/13/23 20:59 Last Admin: 11/13/23 21:16 Dose: 1 mg Documented By: ROMMEL Sucralfate (Sucralfate 1 Gm/10 Ml Udc) 1 gm PO ACHS JAYSHREE Stop: 12/14/23 11:29 Last Admin: 11/14/23 11:05 Dose: 1 gm Documented By: Topiramate (Topiramate 100 Mg Tab) 100 mg PO BID JAYSHREE Stop: 12/13/23 20:59 Last Admin: 11/14/23 09:27 Dose: 100 mg Documented By: Admin: 11/13/23 21:17 Dose: 100 mg Documented By: ROMMEL Verapamil HCl (Verapamil Hcl 40 Mg Tab) 80 mg PO BID JAYSHREE Stop: 12/13/23 20:59 Last Admin: 11/14/23 09:27 Dose: 80 mg Documented By: Admin: 11/13/23 21:17 Dose: 80 mg Documented By: ROMMEL Discontinued Medications Acetaminophen (Ofirmev) 1,000 mg in 100 mls @ 400 mls/hr IV NOW STA Stop: 11/13/23 14:30 Last Infusion: 11/13/23 14:42 Dose: Infused Documented By: Admin: 11/13/23 14:23 Dose: 400 mls/hr Documented By: MEKHI Ioversol (Optiray 320 125ml) 120 ml IV ONCE ONE Stop: 11/14/23 05:27 Last Admin: 11/14/23 05:27 Dose: 120 ml Documented By: MAGEN Ondansetron HCl (Ondansetron Inj 2 Mg/Ml 2 Ml Vial) 4 mg IV NOW STA Stop: 11/13/23 14:17 Last Admin: 11/13/23 14:23 Dose: 4 mg Documented By: AMS Imaging Data Radiologist's Impression: Chest X-Ray 11/13/23 12:31 XR chest 1V portable CLINICAL HISTORY: sob TECHNIQUE: Single frontal radiograph of the chest was obtained. Comparison: Comparison is made to chest radiograph 08/24/2023 FINDINGS: Cervical fixation hardware is seen. Stable port catheter. The cardiomediastinal silhouette is normal. The lungs are clear. No evidence of pleural effusion or pneumothorax. IMPRESSION: No acute abnormalities and in particular no radiographic evidence of pneumonia. ACT 112: Negative or not required by law. Electronically signed by: Mono Batista M.D. 11/13/2023 12:56 PM Discharge Plan Visit Data Chief Complaint: Cardiac Assessment Stated Complaint: CHEST PAIN, SHORTNESS OF BREATH, DIZZINESS, N/V ED Provider: Swapna Harrell Discharge Problem: Palpitation, Dyspnea, Syncope, Anemia, Elevated brain natriuretic peptide (BNP) level Patient Disposition: Admitted As Inpatient Discharge Instructions Interventions: ED Discharge Assessment Last Done: 11/13/23 15:28 Discharge Problem: Syncope Qualifiers: Syncope type: unspecified Qualified Code(s): R55 - Syncope and collapse
[2023-11-13 12:53] LABS: Albumin Globulin Ratio 1.4 (0.9-2); Albumin Level 4.1 gm/dl (3.4-5.0); BUN Creatinine Ratio 24.1 (10-20); Bilirubin,Total 0.4 mg/dl (0.2-1.0); Calcium 9.4 mg/dl (8.6-10.3); Creatinine Clr Calc Pharmacy 63.2 ml/min; Est GFR (African American) 87.6 ml/min; Est GFR (Non-African American) 75.6 ml/min; Globulin 2.9 gm/dl (2.5-4.0); Magnesium 1.9 mg/dl (1.7-2.4); Potassium 3.9 mmol/L (3.5-5.1)
--- NOTE | 2023-11-13 12:57 | XRay Report ---
XR chest 1V portable CLINICAL HISTORY: sob TECHNIQUE: Single frontal radiograph of the chest was obtained. Comparison: Comparison is made to chest radiograph 08/24/2023 FINDINGS: Cervical fixation hardware is seen. Stable port catheter. The cardiomediastinal silhouette is normal. The lungs are clear. No evidence of pleural effusion or pneumothorax. IMPRESSION: No acute abnormalities and in particular no radiographic evidence of pneumonia. ACT 112: Negative or not required by law. Electronically signed by: Mono Batista M.D. 11/13/2023 12:56 PM
[2023-11-13 12:58] LABS: Troponin I High Sensitivity 8.7 pg/ml (0-14)
[2023-11-13 13:07] LABS: Basophils # (auto) 0.03 K/uL (0.00-0.20); Basophils % (auto) 0.4 %; Eosinophils # (auto) 0.01 K/uL (0.00-0.50); Eosinophils % (auto) 0.1 %; Hematocrit (blood only) 34.7 % (37.0-47.0); Hemoglobin 9.6 g/dl (12.0-16.0); Hypochromasia Present; Immature Granulocytes # (auto) 0.02 K/uL (0.01-0.20); Immature Granulocytes % (auto) 0.3 %; Lymphocytes # (auto) 1.53 K/uL (1.20-3.40); Lymphocytes % (auto) 20.6 %; Mean Corpuscular Hemoglobin 20.6 pg (25.0-34.0); Mean Corpuscular Hgb Conc 27.7 g/dL (32.0-36.0); Mean Corpuscular Volume 74.5 fL (80.0-100.0); Mean Platelet Volume 10.3 fL (9.4-12.4); Monocytes # (auto) 0.63 K/uL (0.11-0.59); Monocytes % (auto) 8.5 %; Neutrophils # (auto) 5.21 K/uL (1.40-6.50); Neutrophils % (auto) 70.1 %; Platelet Count 409 K/uL (130-400); Polychromasia 1+; RDW Coefficient of Variation 17.2 % (11.5-14.5); RDW Standard Deviation 45.7 fL (36.4-46.3); Red Blood Count 4.66 M/uL (4.20-5.40); White Blood Count 7.43 K/ul (4.8-10.8)
[2023-11-13 13:08] LABS: Thyroid Stimulating Hormone 1.425 uIu/ml (0.300-4.500)
[2023-11-13 13:56] LABS: Adenovirus PCR Not Detected (NotDetected); Bordetella parapertussis PCR Not Detected (NotDetected); Bordetella pertussis PCR Not Detected (NotDetected); Chlamydia pneumoniae PCR Not Detected (NotDetected); Coronavirus 229E PCR Not Detected (NotDetected); Coronavirus CoV-2 (COVID19)PCR Not Detected (NotDetected); Coronavirus HKU1 PCR Not Detected (NotDetected); Coronavirus NL63 PCR Not Detected (NotDetected); Coronavirus OC43PCR Not Detected (NotDetected); Human Metapneumovirus PCR Not Detected (NotDetected); Influenza A PCR Not Detected (NotDetected); Influenza B PCR Not Detected (NotDetected); Mycoplasma pneumoniae PCR Not Detected (NotDetected); Parainfluenza Virus 1 PCR Not Detected (NotDetected); Parainfluenza Virus 2 PCR Not Detected (NotDetected); Parainfluenza Virus 3 PCR Not Detected (NotDetected); Parainfluenza Virus 4 PCR Not Detected (NotDetected); Respiratory Syncytial VirusPCR Not Detected (NotDetected); Rhinovirus/Enterovirus PCR Not Detected (NotDetected)
[2023-11-13] MEDS: ACETAMINOPHEN 1,000 MG/100 ML VIAL IV STA (14:23)
[2023-11-13] MEDS: ONDANSETRON INJ 2 MG/ML 2 ML VIAL IV STA (14:23)
[2023-11-13] MEDS ORDERED: MAGNESIUM HYDROXIDE SUSP 30 ML UDC PO PRN (14:29)
[2023-11-13] MEDS ORDERED: POLYETHYLENE (MIRALAX) 17 GM PACK PO PRN (14:29)
--- NOTE | 2023-11-13 14:35 | History & Physical Report ---
Date of Service November 13, 2023 Assessment & Plan (1) Syncope: (2) Dyspnea: (3) Palpitation: (4) Anemia: (5) PAF (paroxysmal atrial fibrillation): (6) Dyslipidemia: (7) NSVT (nonsustained ventricular tachycardia): Plan Ms. Hackett is a 63 year old female that presents to the ED today with SOB, palpitations and reports 'passing out' overnight when she went to the bathroom. This has happened approximately 6 times over the last 6 months. She was here in August after one of the episodes when she hit her head. Head CT was negative at that time. She has a known history of Atrial Fibrillation and followed with Cardiology but the last documented appt was 2017. She has a known history of VT in the s and is noted to be beta-harsha and statin intolerant. Pt has had unintentional weight over the past 3 months. She had an 'allergic reaction' that appears was bradycardia cardiac arrest s/p beta-harsha and was placed on Verapamil. Pt has known celiac disease and known weight loss and worsening GERD. Her last EGD/colonoscopy has been nearly 10 years ago. Syncopal episodes in the were related to non-sustained SVT. In 2014 she had a holter monitor placed in 2011 with some intermittent PVCs and one 4 beat NSVT. Sometimes she wakes in the middle of the night and has acidic symptoms and vomits. She also reports pain in her chest with position changes. In the ED ECG SR with occasional PVC. NO leukocytosis, BNP 257. Patient will be admitted for further evaluation and management of her syncopal episode with an anemia work up including TIBC, Ferritin and Reticulocyte count, and orthostatic BP's. Will obtain a repeat ECHO given elevated BNP, involve Cardiology to reestablish care. Given celiac and GERD; will involve GI. Syncope: Dyspnea: Palpitations: Acute Follows with [facility]; last appt 2017 Beta-harsha and statin intolerant, Takes a baby ASA Last ECHO 01/2023 EF 55%, mild TR with normal LV wall motion; check ECHO Check Orthostatic BPs Will check Head/Neck CTA given history of falls and frequency Pt known cardiac arrest that appears to be bradycardia? 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 Continue Zofran PRN and Protonix IV Hold Sucralfate GI consult placed CAD: Cardiac catheterization in 2009 without occlusions Anemia: Chronic baseline Hgb approximately 10. serum Hgb 9.6; will trend Add on anemia studies including retic count, TIBC, Ferritin levels HLD: Chronic Intolerant of statins Does not take any statins Asthma: Chronic Takes Montelukast;continue Disposition: PCP: Dr. Weldon Code Status: Full Code VTE Prophylaxis: Teds and SCDs for now I spent a total of 86 minutes coordinating, documenting, and providing care for this patient excluding time spent in the performance of separately billed services. All of the aforementioned completed while collaborating with the assigned attending physician for a full treatment plan. Please see their addendum for further details. History of Present Illness Chief Complaint: palpitations and SOB Primary Care Provider: Lacey Weldon MD Ms. Hackett is a 63 year old female that presents to the ED today with SOB, palpitations and reports 'passing out' overnight when she went to the bathroom. This has happened approximately 6 times over the last 6 months. She was here in August after one of the episodes when she hit her head. Head CT was ne She has a known history of Atrial Fibrillation and followed with Cardiology but the last documented appt was 2017. The last documented [facility]ology note is from 2016. She has a known history of VT in the 1989's and is noted to be beta-harsha and statin intolerant. Pt has had unintentional weight over the past 3 months She had an 'allergic reaction' that appears was bradycardia cardiac arrest s/p beta-harsha and was placed on Verapamil. Pt has known celiac disease and known weight loss and worsening GERD. Her last EGD/colonoscopy has been nearly 10 years ago. Syncopal episodes in the 1989's were related to non-sustained SVT. In 2014 she had a holter monitor placed in 2011 with some intermittent PVCs and one 4 beat NSVT. Sometimes she wakes in the middle of the night and has acidic symptoms and vomits. She also reports pain in her chest with position changes. She In the ED ECG SR with occasional PVC. NO leukocytosis, BNP 257. Pt denies RANDOLPH, visual or auditory changes, dysuria, other falls or trauma. Patient will be admitted for further evaluation and management of her syncopal episode with an anemia work up including TIBC, Ferritin and Reticulocyte count, and orthostatic BP's. Will obtain a repeat ECHO given elevated BNP, involve Cardiology to reestablish care. Given celiac and GERD; will involve GI. Allergies Allergy/AdvReac Type Severity Reaction Status Date / Time bee venom protein (honey bee) Allergy Severe ANAPHYLAXIS Verified 01/06/23 20:05 coconut Allergy Severe RASH; SOB Verified 01/06/23 20:05 gluten Allergy Severe CELIAC'S Verified 01/06/23 20:05 iron Allergy Severe SOB,TACHY Verified 01/06/23 20:05 WITH IV IRON latex Allergy Severe Anaphylaxis Verified 01/06/23 20:05 Penicillins Allergy Severe Anaphylaxis Verified 01/06/23 20:05 Sulfa (Sulfonamide Allergy Severe Anaphylaxis Verified 01/06/23 20:05 Antibiotics) ROBER Inhibitors Allergy Intermediate RASH/TACHYC Verified 01/06/23 20:05 ARDIA cefaclor Allergy Intermediate CECLOR--RASH/UPSET Verified 01/06/23 20:05 STOMACH egg Allergy Intermediate RASH & Verified 01/06/23 20:05 Bloating Influenza Virus Vaccines Allergy Intermediate rash and Verified 01/06/23 20:05 bloating lactose Allergy Intermediate RASH; Verified 01/06/23 20:05 BLOATING; DIARRHEA; VOMITING tetracycline Allergy Intermediate NAUSEA/VOMI Verified 01/06/23 20:05 TING/RASH Quinolones Allergy Unknown ALLERGY TO Verified 01/06/23 20:05 AVELOX ,CAN TAKE CIPRO OR LEVAQUIN W/O RXN Beta-Blockers AdvReac Intermediate intolerance Verified 01/06/23 20:44 (Beta-Adrenergic Bloc as per records Home Medications Medication Instructions Recorded Confirmed Type amitriptyline 75 mg tablet 75 mg PO HS 12/24/20 11/13/23 History cimetidine 400 mg tablet 400 mg PO BID 12/24/20 11/13/23 History ergocalciferol (vitamin D2) 1,250 1,250 mcg PO 2XWK 12/24/20 11/13/23 History mcg (50,000 unit) capsule (Vitamin D2) polyethylene glycol 3350 17 17 g PO QID PRN FOR AT LEAST 1 12/24/20 11/13/23 History gram/dose oral powder (Miralax) STOOL DAILY rabeprazole 20 mg tablet,delayed 40 mg PO BID 12/24/20 11/13/23 History release ropinirole 1 mg tablet 1 mg PO HS 12/24/20 11/13/23 History sucralfate 1 gram tablet (Carafate) 1 g PO ACHS 12/24/20 11/13/23 History topiramate 100 mg tablet (Topamax) 100 mg PO BID 12/24/20 11/13/23 History aspirin 81 mg tablet,delayed 81 mg PO QAM 04/06/21 11/13/23 History release (Kerwin Low Dose Aspirin) fexofenadine 180 mg tablet 180 mg PO DAILY 05/08/21 11/13/23 History levothyroxine 100 mcg tablet 100 mcg PO DAILYBB 05/08/21 11/13/23 History montelukast 10 mg tablet 10 mg PO HS 05/08/21 11/13/23 History ondansetron 4 mg disintegrating 4 mg translingual Q8H PRN Nausea 05/08/21 11/13/23 History tablet azelastine 137 mcg (0.1 %) nasal 1 spray intranasal BID 01/06/23 11/13/23 History spray aerosol epinephrine 0.3 mg/0.3 mL 0.3 mg IM DIRECTED PRN Allergic 01/06/23 11/13/23 History injection, auto-injector (EpiPen) Reaction ferrous sulfate 325 mg (65 mg 325 mg PO QID 01/06/23 11/13/23 History iron) tablet fluticasone 250 mcg-salmeterol 50 1 inh inhalation BID 01/06/23 11/13/23 History mcg/dose blistr powdr for inhalation (Advair Diskus) ipratropium 20 mcg-albuterol 100 1 puff inhalation QID PRN USE IN 01/06/23 11/13/23 History mcg/actuation mist for inhalation PLACE OF XOPENEX IF NEEDED (Combivent Respimat) levalbuterol HCl 1.25 mg/3 mL 1.25 mg inhalation QID PRN 01/06/23 11/13/23 History solution for nebulization WHEEZING/SHORT OF BREATH mometasone 50 mcg/actuation nasal 2 spray intranasal BID 01/06/23 11/13/23 History spray multivitamin 1 tab PO DAILY 01/06/23 11/13/23 History sennosides 8.6 mg tablet (senna) 8.6 mg PO DAILY PRN Constipation 01/06/23 11/13/23 History verapamil 40 mg tablet 80 mg (2 x 40 mg) PO BID #60 tabs 01/09/23 11/13/23 Rx Past Med/Surg History Medical History Elevated LFTs Chronic anemia Dehydration Colitis with rectal bleeding Bloody diarrhea Hypertension Adrenal cyst monitoring Kidney stones no surgery Chronic back pain Degenerative disc disease Osteoarthritis Hx of sepsis ~2017 treated at [facility]. Anxiety Mitral valve prolapse follows with Dr Aguirre Heart disease Narcolepsy Chronic obstructive pulmonary disease Sleep apnea CPAP -- have not used in about a year (it broke and has not yet been fixed) NSVT (nonsustained ventricular tachycardia) Asthma, severe persistent Gastroparesis Celiac disease GERD (gastroesophageal reflux disease) IBS (irritable bowel syndrome) Hypothyroidism no current medication -- TSH normal without meds. CHARLES (iron deficiency anemia) ferrous sulfate QID. Dyslipidemia MRSA (methicillin resistant Staphylococcus aureus) 1999 dx nose septum wound 2019 dx in lungs Surgical History History of esophagogastroduodenoscopy (EGD) History of colonoscopy History of section x1 History of dilatation and curettage History of bilateral tubal ligation S/P GLENNY-BSO S/P surgery on nasal septum "collapsed septum" s/p post op infection that "ate away the septum" S/P nasal surgery Hx of cholecystectomy History of arthroscopic knee surgery left Hx of cardiac cath "2009 - normal coronaries" Family History Other No family history of adverse response to anesthesia Social History Smoking Status: Never smoker Second Hand Exposure: No; Do You Dip or Chew Tobacco: No; Hx Alcohol Use: No Hx Substance Use: No Preferred Language: French Communication Ability: Effective [employer] Required: No Beliefs That Will Affect Care: None marital status: Current Living Situation: Spouse and Family Current Living Situation Comment: and adult son Other Information That Helps Us Care for You: No Feels Safe at Home: Yes Safety Concerns: Feels Safe At This Time Assistive Devices: Denture - Upper, Glasses and Oxygen - at Night Review of Systems Review of Systems: Neuro: (-) Falls, trauma, slurred speech HEENT: (-) RANDOLPH, dizziness, dysphagia, visual or auditory changes CV: (-) CP, palpitations, swelling Resp: (-) SOB GI: (-) appetite changes, N/V/D, bowel changes : (-) urinary changes Skin: (-) rashes Psych: (-) anxiety, depression Physical Exam Physical Exam: See Dr. Anderson's attestation for physical examination findings Results & Data Results & Data Vital Signs (Past 12 Hours) Vital Signs Temp Pulse Pulse Resp BP BP Pulse Ox 11/13/23 14:06 102 H 17 128/76 94 11/13/23 13:30 91 H 20 131/95 97 11/13/23 13:00 86 19 123/84 94 11/13/23 12:30 92 H 24 126/83 100 11/13/23 12:25 94 H 11/13/23 12:23 131/97 11/13/23 12:16 99 H 15 157/122 H 100 11/13/23 12:16 96 11/13/23 12:08 36.8 C 102 H 20 147/87 H 99 O2 Del Method 11/13/23 14:06 Room Air 11/13/23 13:30 Room Air 11/13/23 13:00 Room Air 11/13/23 12:30 Room Air 11/13/23 12:25 11/13/23 12:23 11/13/23 12:16 Room Air 11/13/23 12:16 Room Air 11/13/23 12:08 Laboratory Results Short CBC 11/13/23 Range/Units 12:17 WBC 7.43 (4.8-10.8) K/ul Hgb 9.6 L (12.0-16.0) g/dl Hct 34.7 L (37.0-47.0) % Plt Count 409 H (130-400) K/uL BMP 11/13/23 12:17 Sodium 140 Potassium 3.9 Chloride 108 H Carbon Dioxide 24 BUN 20 Creatinine 0.83 Glucose 101 H Calcium 9.4 Liver Function 11/13/23 Range/Units 12:17 Total Bilirubin 0.4 (0.2-1.0) mg/dl AST 16 (13-39) U/L ALT 11 (7-52) U/L Alkaline Phosphatase 87 (34-104) U/L Albumin 4.1 (3.4-5.0) gm/dl Diagnostic Findings Chest X-Ray 11/13/23 12:31 XR chest 1V portable CLINICAL HISTORY: sob TECHNIQUE: Single frontal radiograph of the chest was obtained. Comparison: Comparison is made to chest radiograph 08/24/2023 FINDINGS: Cervical fixation hardware is seen. Stable port catheter. The cardiomediastinal silhouette is normal. The lungs are clear. No evidence of pleural effusion or pneumothorax. IMPRESSION: No acute abnormalities and in particular no radiographic evidence of pneumonia. ACT 112: Negative or not required by law. Electronically signed by: Mono Batista M.D. 11/13/2023 12:56 PM Code Status & VTE Plan Code Status Full Code in the event of cardiac or respiratory arrest VTE Prophylaxis Plan VTE Prophylaxis will be ordered: Yes Supervising Physician Co-Signing Physician Notes I have seen and discussed the case with the collaborating advanced practitioner. I agree with the above H&P. I have reviewed and confirmed the patients medical history, the findings on physical examination, and the patients diagnosis and treatment plan with Addison FALCON and agree with the information documented. In short, Ms. Hackett is a 63 year old woman with history of idiopathic cardiac arrest/VT, PAT, hypertension, hyperlipidemia/statin intolerance, asthma/COPD, CYNTHIA/narcolepsy as per records (currently CPAP noncompliant), celiac disease, chronic anemia (baseline hemoglobin 8-10,), GERD, irritable bowel syndrome, hypothyroidism, endometriosis/PCOS who is admitted for evaluation of recurrent syncope. Patient reports more frequent episodes of syncope, often occurring after transition from sitting to standing--accompanied by chest tightness and palpitations. She denies recent head strike, but presented to ED in 08/2023 after fall and lacerating her head at that time. She states she got "lost in the cracks" with COVID and didn't follow up with Cards since 2017. OP records reveal ongoing history of palpitations, and last holter in 2011. She also has history of celiac with ongoing iron deficiency--last admission she was transfused, however, she did not follow up with her iron transfusions. Additionally, she reports unintentional weight loss of 10~pounds due to worsening abdominal pain and vomiting of bilious contents (sometimes alleviting her symptoms) EGD in 2014 revealed ?duodenal stricture s/p dilation, ?hypopharygeal lesions; patient did not follow up with these results GENERAL APPEARANCE: AxOx4, chronically ill appearing woman, no acute distress. HEENT: NC, AT. MMM. EOMI, clear conjunctiva, oropharynx clear. poor dentition NECK: Supple without lymphadenopathy. No stiffness or restricted ROM. HEART: Normal rate and regular rhythm, normal S1/S1, no m/r/g LUNGS: CTAB, moving air well. No crackles or wheezes are heard. ABDOMEN: Soft, epigastric tenderness, small ventral hernia with valsalva EXTREMITIES: Without cyanosis, clubbing or edema. NEUROLOGICAL: Grossly nonfocal. Alert and oriented, moving all 4 extremities. CN not formally tested but appear grossly intact Skin: Warm and dry without any rash. : 2012 Holter reviewed. Occasional PVC's with one short sangeetha (4beats) PSVT. 2014 EGD Findings: There was some inspissated mucus in the hypopharynx. This gave the appearance of an ulcer between the arytenoid folds. The esophagus was normal. There was a small hiatal hernia. The stomach was normal. There was a small amount of retained bilious fluid in the stomach. There were marked changes of celiac sprue in the duodenum - there was marked villous effacement, fissuring of the mucosa, and loss of normal duodenal folds. There was a mild stricture at the apex of the bulb. A wire guided balloon was inflated to 15 mm over the area of duodenal narrowing and held for 1 mins. No trauma. Biopsies also done from duodenum. Impression: Possible hypopharyngeal lesion. Mild stricture at duodenal bulb, dilated. Marked changes of celiac in duodenum. #Syncope #History of syncope and NSVT #Paroxysmal Atrial fibrillation -Multiple episodes, ~6 syncopal events -Describes chest tightness, palpitations upon standing followed by collapse Documented [facility] 2009 with normal coronary arteries, Trop on admission negative Suspect orthostasis based upon description of other issues (fatigue, weight loss, poor po) -Order orthostatic vital signs Question of contribution of anemia, work up as below Admit on tele ECHO Given falls/unclear head trauma, CTA head/neck Prior bradycardic arrest on metoprolol Continue Verapamil 80mg BID Likely holter monitor #Epigastric pain #Chronic Microcytic anemia #Celiac Sprue -Possible hypopharyngeal lesion.Mild stricture at duodenal bulb, dilated. Marked changes of celiac in duodenum. Unable to take various formulations of medications 2/2 celiac/wheat content -Reports frequent abdominal pain, alleviated with vomiting, bilious in nature -CLD -GI consult -?h pylori, also EGD in 2013 with duodenal stricture, ?hypopharynx lesion Continue cimetidine and rabeprazole (no wheat in capsule) -Antiemetics and PPI BID IV -Hold sucralfate #HLD not tolerant to statins previously #Asthma Continue montelukast Rest of plan as above I spent a total of 35 minutes coordinating, documenting, and providing care for this patient excluding time spent in the performance of separately billed services. All of the aforementioned completed outside of collaborating with the assigned advanced practitioner for a full treatment plan. I have reviewed the advanced practitioner's documentation, and I agree with, and take responsibility for the plan of care (4) Anemia Anemia type: unspecified type Qualified Code(s): D64.9 - Anemia, unspecified
[2023-11-13 14:57] LABS: Appearance Urine Clear (Clear); Bacteria Urine Automated None Seen (None Seen); Bilirubin Urine 1+ (Negative); Blood Urine Negative (Negative); Color Urine Dark Yellow; Epithelial Cell Urine Auto 0-2 /hpf (0-2); Glucose Urine UA Negative (Negative); Ketones Urine Trace (Negative); Leukocyte Esterase Urine Trace (Negative); Mucus Urine Present (None Prsent); Nitrite Urine Negative (Negative); Protein Urine 1+ (Negative); RBC Urine Automated 0-2 /hpf (0-2); Specific Gravity Urine 1.025 (1.000-1.030); Urobilinogen Urine Negative (Negative); WBC Urine Automated 0-5 /hpf (0-5)
[2023-11-13 15:29] LABS: Reticulocyte % 1.39 % (0.50-2.00)
[2023-11-13 16:51] LABS: Hematocrit (blood only) 32.4 % (37.0-47.0); Hemoglobin 8.9 g/dl (12.0-16.0); Mean Corpuscular Hemoglobin 20.4 pg (25.0-34.0); Mean Corpuscular Hgb Conc 27.5 g/dL (32.0-36.0); Mean Corpuscular Volume 74.3 fL (80.0-100.0); Mean Platelet Volume 9.9 fL (9.4-12.4); Platelet Count 379 K/uL (130-400); RDW Coefficient of Variation 17.2 % (11.5-14.5); RDW Standard Deviation 45.8 fL (36.4-46.3); Red Blood Count 4.36 M/uL (4.20-5.40); White Blood Count 7.14 K/ul (4.8-10.8)
--- NOTE | 2023-11-13 16:51 | Electrocardiogram Report ---
Test Reason : Blood Pressure : / mmHG Vent. Rate : 099 BPM Atrial Rate : 099 BPM P-R Int : 142 ms QRS Dur : 072 ms QT Int : 310 ms P-R-T Axes : 058 -11 026 degrees QTc Int : 397 ms Sinus rhythm with occasional Premature ventricular complexes Possible Left atrial enlargement Nonspecific ST and T wave abnormality Abnormal ECG When compared with ECG of 24-AUG-2023 13:05, Premature ventricular complexes are now Present Nonspecific T wave abnormality now evident in Inferior leads Nonspecific T wave abnormality now evident in Anterolateral leads Confirmed by Lai Grant ([id number]) on 11/13/2023 4:51:00 PM Referred By: Confirmed By:Hero Grant
[2023-11-13 18:21] LABS: Folate (Folic Acid),Ser orPlas 3.39 ng/ml (>5.38)
[2023-11-13] MEDS: PANTOprazole 40 MG in SYRINGE 0 ML IV SCH (21:15)
[2023-11-13] MEDS: AMITRIPTYLINE HCL 25 MG TAB PO SCH (21:16)
[2023-11-13] MEDS: rOPINIRole HCL 1 MG TABLET PO SCH (21:16)
[2023-11-13] MEDS: MONTELUKAST SODIUM 10 MG TABLET PO SCH (21:16)
[2023-11-13] MEDS: VERAPAMIL HCL 40 MG TAB PO SCH (21:17)
[2023-11-13] MEDS: TOPIRAMATE 100 MG TAB PO SCH (21:17)
[2023-11-13] MEDS: AZELASTINE HCL 0.1% NASAL 200 SPRAYS/27,400 MCG BTL SCH (21:17)
[2023-11-13] MEDS: ALUMINUM/MAGNESIUM SUSP 30 ML UDC PO PRN (21:27)
[2023-11-13] MEDS: ACETAMINOPHEN 325 MG TAB PO PRN (21:28)
[2023-11-13] MEDS: ONDANSETRON INJ 2 MG/ML 2 ML VIAL IV PRN (23:21)
[2023-11-14] MEDS: OPTIRAY 320 125ml IV ONE (05:27)
[2023-11-14] MEDS: LEVOTHYROXINE SODIUM 100 MCG TABLET PO SCH (05:28)
[2023-11-14 06:38] LABS: Hematocrit (blood only) 27.8 % (37.0-47.0); Hemoglobin 7.8 g/dl (12.0-16.0); Mean Corpuscular Hemoglobin 20.8 pg (25.0-34.0); Mean Corpuscular Hgb Conc 28.1 g/dL (32.0-36.0); Mean Corpuscular Volume 74.1 fL (80.0-100.0); Mean Platelet Volume 10.5 fL (9.4-12.4); Platelet Count 319 K/uL (130-400); RDW Coefficient of Variation 17.1 % (11.5-14.5); RDW Standard Deviation 45.4 fL (36.4-46.3); Red Blood Count 3.75 M/uL (4.20-5.40); White Blood Count 5.71 K/ul (4.8-10.8)
--- NOTE | 2023-11-14 07:10 | CT Scan Report ---
CT angio neck wo/w con, CT angio head wo/w CLINICAL HISTORY: syncope TECHNIQUE: Contiguous axial CT images of the head were acquired from the base of the skull to the tab akash without intravenous contrast administration. CT angiography of the head and neck was performed f ollowing intravenous administration of iodinated contrast. Coronal and sagittal MIPS were obtained fr om the axial data set and were submitted for review. Automated dose lowering techniques and/or adjus tment according to patient size were utilized for this examination. All measurements were calculated based on NASCET criteria. CT DOSE: 1331.37 mGy.cm Comparison: None available at the time of this dictation. FINDINGS: CT head: There is no acute intracranial hemorrhage or evidence of acute territorial infarction. No sh ift of the midline structures, mass effect, or extra-axial abnormalities are shown. Lungs and soft tissues are unremarkable. CTA Neck: A 3 vessel aortic arch is shown. There is no significant atherosclerotic plaque in the aor tic arch or the origins of the innominate, left common carotid, and left subclavian arteries. The co mmon carotid, external carotid, cervical segments of the internal carotid arteries, and the cervical segments of the vertebral arteries are patent without hemodynamically significant stenosis. The left vertebral artery is dominant. CTA Head: The anterior and posterior cerebral circulations are patent. No hemodynamically significan t stenosis, aneurysm, dissection, or arteriovenous malformation is shown. IMPRESSION: 1. No acute intracranial hemorrhage, evidence of acute territorial infarction, or other acute intrac ranial disease process. 2. No occlusion, hemodynamically significant stenosis, or dissection in the major cervical arteries. 3. No occlusion, hemodynamically significant stenosis, aneurysm, dissection, or arteriovenous malfor mation in the major intracranial arteries. Assessment of stenosis of the internal carotid arteries is based on NASCET criteria. ACT 112: Negative or not required by law. Electronically signed by: Mono Batista M.D. 11/14/2023 7:08 AM
[2023-11-14 07:26] LABS: BUN Creatinine Ratio 17.9 (10-20); Calcium 8.6 mg/dl (8.6-10.3); Creatinine Clr Calc Pharmacy 62.5 ml/min; Est GFR (African American) 86.3 ml/min; Est GFR (Non-African American) 74.5 ml/min; Potassium 3.8 mmol/L (3.5-5.1)
--- NOTE | 2023-11-14 09:24 | Cardiology Consultation ---
Date of Consultation November 14, 2023 Assessment & Plan (1) Syncope: (2) Palpitation: (3) Anemia: (4) Atrial tachycardia, paroxysmal: Plan 63 year old with past medical history of syncope and NSVT in 1998, PAT, HTN, HLD, who presents after 2 syncopal episodes. Noted to have nausea and poor PO intake. Labs with anemia, hemoglobin today 7.8. Telemetry reviewed with no pauses or arrhythmias. Recommend to check orthostatic vitals. Stay well hydrated, change positions slowly. Follow up with outpatient cardiology clinic. Further recommendations per cardiology attending, Dr. Morillo. I spent a total of 40 minutes on the date of service in preparation, delivery, and documentation of the care provided to this patient excluding any time spent in the performance of separately billed services. This visit was a split-shared visit with the substantial portion of the decision making performed by the supervising special duty nurse/billing provider. Supervising Physician Co-Signing Physician Notes Patient was seen and personally examined. Full assessment and plan as outlined by advanced provider as above. Care and management discussed in detail and personally endorsed Patient hospitalized to 2 syncopal spells. No acute cardiac concerns noted with only 2 brief runs of atrial tachycardia 3-4 beats in duration overnight. Laboratory studies notable for significant anemia, microcytic Low-grade cough since admission but no edema Would continue verapamil as ordered. Prior beta-harsha intolerance. Treat underlying medical issue I spent a total of 40 minutes on the date of service in preparation, delivery, and documentation of the care provided to this patient excluding any time spent in the performance of separately billed services History of Present Illness Reason for Consultation: Syncope Requesting Physician: TERRIE Cifuentes Attending Physician: Opal Conrad MD History of Present Illness 63 year old with past medical history as below. She presented to ED with SOB, palpitations, syncope. States she passed out twice 2 nights ago. The first time she had gotten up to get a drink of water, felt lightheaded and then fell and lost consciousness, had palpitations prior to syncope. The second time she was in the bathroom sitting on the toilet and then woke up on the floor. She did not have any symptoms prior to losing consciousness. Has not been feeling well for past week, has a cold, states grandchildren also have congestion and cough. Also has been having nausea and poor appetite for past few days. Had syncopal episode in August where she hit her head, went to ED and required yaneth. On evaluation today, she states she is feeling better. Denies chest pain, lightheadedness, dizziness. Has been out of bed to bathroom with no symptoms. Has a history of palpitations that come and go, not bothersome. Compliant with all medications. Has a history of requiring blood transfusions and iron transfusions when hgb below 9, last transfusion was 01/2023. Denies tobacco use, alcohol use, illicit drug use. Drinks about 3 glasses of water daily. History includes 1. Remote of syncope and NSVT in 1998 2. History of paroxysmal atrial tachycardia, with prior intolerances to beta blockers reported. 3. Left heart catheterization in 2009 demonstrating normal coronary anatomy. 4. HTN - labile 5. Dyslipidemia uncontrolled with statin intolerance in the past secondary to elevated LFT's 6. Celiac disease 7. Chronic iron-deficiency anemia requiring intermittent transfusions Allergies Allergy/AdvReac Type Severity Reaction Status Date / Time bee venom protein (honey bee) Allergy Severe ANAPHYLAXIS Verified 01/06/23 20:05 coconut Allergy Severe RASH; SOB Verified 01/06/23 20:05 gluten Allergy Severe CELIAC'S Verified 01/06/23 20:05 iron Allergy Severe SOB,TACHY Verified 01/06/23 20:05 WITH IV IRON latex Allergy Severe Anaphylaxis Verified 01/06/23 20:05 Penicillins Allergy Severe Anaphylaxis Verified 01/06/23 20:05 Sulfa (Sulfonamide Allergy Severe Anaphylaxis Verified 01/06/23 20:05 Antibiotics) ROBER Inhibitors Allergy Intermediate RASH/TACHYC Verified 01/06/23 20:05 ARDIA cefaclor Allergy Intermediate CECLOR--RASH/UPSET Verified 01/06/23 20:05 STOMACH egg Allergy Intermediate RASH & Verified 01/06/23 20:05 Bloating Influenza Virus Vaccines Allergy Intermediate rash and Verified 01/06/23 20:05 bloating lactose Allergy Intermediate RASH; Verified 01/06/23 20:05 BLOATING; DIARRHEA; VOMITING tetracycline Allergy Intermediate NAUSEA/VOMI Verified 01/06/23 20:05 TING/RASH Quinolones Allergy Unknown ALLERGY TO Verified 01/06/23 20:05 AVELOX ,CAN TAKE CIPRO OR LEVAQUIN W/O RXN Beta-Blockers AdvReac Intermediate intolerance Verified 01/06/23 20:44 (Beta-Adrenergic Bloc as per records Home Medications Medication Instructions Recorded Confirmed Type amitriptyline 75 mg tablet 75 mg PO HS 12/24/20 11/13/23 History cimetidine 400 mg tablet 400 mg PO BID 12/24/20 11/13/23 History ergocalciferol (vitamin D2) 1,250 1,250 mcg PO 2XWK 12/24/20 11/13/23 History mcg (50,000 unit) capsule (Vitamin D2) polyethylene glycol 3350 17 17 g PO QID PRN FOR AT LEAST 1 12/24/20 11/13/23 History gram/dose oral powder (Miralax) STOOL DAILY rabeprazole 20 mg tablet,delayed 40 mg PO BID 12/24/20 11/13/23 History release ropinirole 1 mg tablet 1 mg PO HS 12/24/20 11/13/23 History sucralfate 1 gram tablet (Carafate) 1 g PO ACHS 12/24/20 11/13/23 History topiramate 100 mg tablet (Topamax) 100 mg PO BID 12/24/20 11/13/23 History aspirin 81 mg tablet,delayed 81 mg PO QAM 04/06/21 11/13/23 History release (Kerwin Low Dose Aspirin) fexofenadine 180 mg tablet 180 mg PO DAILY 05/08/21 11/13/23 History levothyroxine 100 mcg tablet 100 mcg PO DAILYBB 05/08/21 11/13/23 History montelukast 10 mg tablet 10 mg PO HS 05/08/21 11/13/23 History ondansetron 4 mg disintegrating 4 mg translingual Q8H PRN Nausea 05/08/21 11/13/23 History tablet azelastine 137 mcg (0.1 %) nasal 1 spray intranasal BID 01/06/23 11/13/23 History spray aerosol epinephrine 0.3 mg/0.3 mL 0.3 mg IM DIRECTED PRN Allergic 01/06/23 11/13/23 History injection, auto-injector (EpiPen) Reaction ferrous sulfate 325 mg (65 mg 325 mg PO QID 01/06/23 11/13/23 History iron) tablet fluticasone 250 mcg-salmeterol 50 1 inh inhalation BID 01/06/23 11/13/23 History mcg/dose blistr powdr for inhalation (Advair Diskus) ipratropium 20 mcg-albuterol 100 1 puff inhalation QID PRN USE IN 01/06/23 11/13/23 History mcg/actuation mist for inhalation PLACE OF XOPENEX IF NEEDED (Combivent Respimat) levalbuterol HCl 1.25 mg/3 mL 1.25 mg inhalation QID PRN 01/06/23 11/13/23 History solution for nebulization WHEEZING/SHORT OF BREATH mometasone 50 mcg/actuation nasal 2 spray intranasal BID 01/06/23 11/13/23 History spray multivitamin 1 tab PO DAILY 01/06/23 11/13/23 History sennosides 8.6 mg tablet (senna) 8.6 mg PO DAILY PRN Constipation 01/06/23 11/13/23 History verapamil 40 mg tablet 80 mg (2 x 40 mg) PO BID #60 tabs 01/09/23 11/13/23 Rx Patient History Medical History Elevated LFTs Chronic anemia Dehydration Colitis with rectal bleeding Bloody diarrhea Hypertension Adrenal cyst monitoring Kidney stones no surgery Chronic back pain Degenerative disc disease Osteoarthritis Hx of sepsis ~2017 treated at [facility]. Anxiety Mitral valve prolapse follows with Dr Aguirre Heart yudi Narcolepsy Chronic obstructive pulmonary disease Sleep apnea CPAP -- have not used in about a year (it broke and has not yet been fixed) NSVT (nonsustained ventricular tachycardia) Asthma, severe persistent Gastroparesis Celiac disease GERD (gastroesophageal reflux disease) IBS (irritable bowel syndrome) Hypothyroidism no current medication -- TSH normal without meds. CHARLES (iron deficiency anemia) ferrous sulfate QID. Dyslipidemia MRSA (methicillin resistant Staphylococcus aureus) 1999 dx nose septum wound 2019 dx in lungs Surgical History History of esophagogastroduodenoscopy (EGD) History of colonoscopy History of section x1 History of dilatation and curettage History of bilateral tubal ligation S/P GLENNY-BSO S/P surgery on nasal septum "collapsed septum" s/p post op infection that "ate away the septum" S/P nasal surgery Hx of cholecystectomy History of arthroscopic knee surgery left Hx of cardiac cath "2009 - normal coronaries" Family History Other No family history of adverse response to anesthesia Social History Smoking Status: Never smoker Second Hand Exposure: No; Do You Dip or Chew Tobacco: No; Hx Alcohol Use: No Hx Substance Use: No Preferred Language: Faroese Communication Ability: Effective Electrician Required: No Beliefs That Will Affect Care: None marital status: Current Living Situation: Spouse and Family Current Living Situation Comment: and adult son Other Information That Helps Us Care for You: No Feels Safe at Home: Yes Safety Concerns: Feels Safe At This Time Assistive Devices: Denture - Upper, Glasses and Oxygen - at Night Review of Systems Review of Systems: CONSTITUTIONAL: No change in weight, No weakness, No fatigue and No fevers, No sweats or chills. PULMONARY: No cough, sputum, or hemoptysis, No wheezing, No shortness of breath and No recent change in breathing. CARDIOVASCULAR: No chest pain, No dyspnea on exertion, No edema, + palpitations and No syncope. GASTROINTESTINAL: No abdominal pain, No change in bowel habits, No significant heartburn, No nausea, No vomiting, No diarrhea, No constipation, No blood in stools or black tarry stools. No dysphagia. HEMATOLOGIC: No abnormal bleeding and No bruising. NEUROLOGICAL: Normal balance, No headaches and No weakness. Physical Exam Physical Exam: General: No acute distress. A+Ox3. HEENT: Normocephalic. Atraumatic. PERRL. EOMI. Conjunctiva and sclera clear. NECK: No carotid bruits. No JVD. Carotid upstrokes are brisk. Heart: RRR. S1 and S2 noted. No murmur. No rubs or gallops. PMI non displaced. Lungs: Clear to auscultation. No wheezes. No rhonchi. No rales. Abdomen: Normal bowel sounds. Soft. Nontender. No masses or organomegaly. No abdominal bruits. Extremities: No edema. No clubbing or cyanosis. Pulses: radial=2/4, posterior tibial=2/4, dorsalis pedis = 2/4. NEURO: No focal deficits. PSYCH: Appropriate affect and insight. Results & Data Vital Signs (Past 12 Hours) Vital Signs Temp Pulse Pulse Resp BP Pulse Ox O2 Del Method 11/14/23 08:45 67 11/14/23 08:22 36.7 C 75 20 127/76 96 Room Air 11/14/23 03:05 36.2 C L 69 20 125/78 97 Room Air 11/13/23 23:04 36.6 C 96 H 18 125/78 97 Room Air Laboratory Results Cardiac Enzymes 11/13/23 Range/Units 12: AST 16 (13-39) U/L Troponin I High Sens 8.7 (0-14) pg/ml B-Natriuretic Peptide 257 H (0-100) pg/ml Coagulation 11/13/23 Range/Units 12:17 B-Natriuretic Peptide 257 H (0-100) pg/ml Lipids 11/14/23 Range/Units 05:29 Triglycerides 109 (0-150) mg/dl Cholesterol 186 (0-200) mg/dl HDL Cholesterol 46 mg/dl Cholesterol/HDL Ratio 4.0 (0-5) CBC 11/13/23 11/13/23 11/14/23 Range/Units 12:17 16:32 05:29 WBC 7.43 7.14 5.71 (4.8-10.8) K/ul RBC 4.66 4.36 3.75 L (4.20-5.40) M/uL Hgb 9.6 L 8.9 L 7.8 L (12.0-16.0) g/dl Hct 34.7 L 32.4 L 27.8 L (37.0-47.0) % Plt Count 409 H 379 319 (130-400) K/uL Neut # (Auto) 5.21 (1.40-6.50) K/uL Lymph # (Auto) 1.53 (1.20-3.40) K/uL Barnwell # (Auto) 0.63 H (0.11-0.59) K/uL Eos # (Auto) 0.01 (0.00-0.50) K/uL Baso # (Auto) 0.03 (0.00-0.20) K/uL Comprehensive Metabolic Panel 11/13/23 11/14/23 Range/Units 12:17 05:29 Sodium 140 137 (136-145) mmol/L Potassium 3.9 3.8 (3.5-5.1) mmol/L Chloride 108 H 107 (98-107) mmol/L Carbon Dioxide 24 24 (21-32) mmol/L BUN 20 15 (6-23) mg/dl Creatinine 0.83 0.84 (0.6-1.2) mg/dl Glucose 101 H 90 (70-99(Fasting)) mg/dl Calcium 9.4 8.6 (8.6-10.3) mg/dl AST 16 (13-39) U/L ALT 11 (7-52) U/L Alkaline Phosphatase 87 (34-104) U/L Total Protein 7.0 (6.0-8.3) gm/dl Albumin 4.1 (3.4-5.0) gm/dl Intake and Output 11/13/23 11/14/23 11/14/23 22:59 06:59 14:59 Intake Total 600 / 700 Balance 600 / 700 Intake: Oral 600 / 600 Other: # Unmeasured Voids 1 Weight 58.1 kg 58.1 kg Weight Measurement Method Standing Scale Built in [facility] Diagnostic Findings Telemetry reviewed with no significant pauses or arrhythmias. (1) Syncope Syncope type: unspecified Qualified Code(s): R55 - Syncope and collapse (3) Anemia Anemia type: unspecified type Qualified Code(s): D64.9 - Anemia, unspecified
[2023-11-14] MEDS: FLUTICASONE/VILANTEROL 100/25MCG 14 PUFFS/INHALER INH SCH (09:26)
[2023-11-14] MEDS: ASPIRIN 81 MG ECTAB PO SCH (09:27)
[2023-11-14] MEDS: SUCRALFATE 1 GM/10 ML UDC PO SCH (11:05)
--- NOTE | 2023-11-14 11:49 | Gastrointestinal Consultation ---
Date of Consultation November 14, 2023 Supervising Physician Co-Signing Physician Notes Microcytic anemia without overt gi bleeding She has a known history of celiac disease- per history diagnosed in [place] almost 10 years ago through duodenal biopsies. No records of path or that pro cedure on review. Somewhere on the H and P for this admission it mentions ? duodenal stricture, no current symptoms to suggest duodenal stricture (no pain after eating, regurgitaiton, nausea, vomiting). She reports she's mostly compliant with a gluten free diet but will eat gluten on occasion. Would check iron studies, ferritin - replete if iron deficient. Outpt egd/colon could be consider for further workup of her microcytic anemia by her regular gi group, she should remain on gluten free diet. With longstanding celiac, there could be some evidence of a duodenal stricture- ct imaging could elucidate if she wanted to pursue that. No plans for gi intervention at this time. Diet per primary team. Consider ppi daily, groundwater consultant counseling while in house given history of celiac. History of Present Illness Reason for Consultation: anemia, history of celiac disease Requesting Physician: Dr. Valentino Attending Physician: Opal Conrad MD History of Present Illness 63 yo fm admitted with syncope. Gi consulted for microcytic anemia, history of celiac disease. She reports no belly pain this am to me. She reports she was diagnosed with celiac disease after an egd in [place] almost ten years ago - mostly complaint with a gluten free diet, however does eat gluten every now and then. She has not hematemesis, nausea, vomiting, no hematochezia. She has recurrent bouts of syncope that are being worked up by cardiology. She reports she's able to pass gas and have bowel movements normally. No issues with belly pain after eating. Allergies Allergy/AdvReac Type Severity Reaction Status Date / Time bee venom protein (honey bee) Allergy Severe ANAPHYLAXIS Verified 01/06/23 20:05 coconut Allergy Severe RASH; SOB Verified 01/06/23 20:05 gluten Allergy Severe CELIAC'S Verified 01/06/23 20:05 iron Allergy Severe SOB,TACHY Verified 01/06/23 20:05 WITH IV IRON latex Allergy Severe Anaphylaxis Verified 01/06/23 20:05 Penicillins Allergy Severe Anaphylaxis Verified 01/06/23 20:05 Sulfa (Sulfonamide Allergy Severe Anaphylaxis Verified 01/06/23 20:05 Antibiotics) ROBER Inhibitors Allergy Intermediate RASH/TACHYC Verified 01/06/23 20:05 ARDIA cefaclor Allergy Intermediate CECLOR--RASH/UPSET Verified 01/06/23 20:05 STOMACH egg Allergy Intermediate RASH & Verified 01/06/23 20:05 Bloating Influenza Virus Vaccines Allergy Intermediate rash and Verified 01/06/23 20:05 bloating lactose Allergy Intermediate RASH; Verified 01/06/23 20:05 BLOATING; DIARRHEA; VOMITING tetracycline Allergy Intermediate NAUSEA/VOMI Verified 01/06/23 20:05 TING/RASH Quinolones Allergy Unknown ALLERGY TO Verified 01/06/23 20:05 AVELOX ,CAN TAKE CIPRO OR LEVAQUIN W/O RXN Beta-Blockers AdvReac Intermediate intolerance Verified 01/06/23 20:44 (Beta-Adrenergic Bloc as per records Home Medications Medication Instructions Recorded Confirmed Type amitriptyline 75 mg tablet 75 mg PO HS 12/24/20 11/13/23 History cimetidine 400 mg tablet 400 mg PO BID 12/24/20 11/13/23 History ergocalciferol (vitamin D2) 1,250 1,250 mcg PO 2XWK 12/24/20 11/13/23 History mcg (50,000 unit) capsule (Vitamin D2) polyethylene glycol 3350 17 17 g PO QID PRN FOR AT LEAST 1 12/24/20 11/13/23 History gram/dose oral powder (Miralax) STOOL DAILY rabeprazole 20 mg tablet,delayed 40 mg PO BID 12/24/20 11/13/23 History release ropinirole 1 mg tablet 1 mg PO HS 12/24/20 11/13/23 History sucralfate 1 gram tablet (Carafate) 1 g PO ACHS 12/24/20 11/13/23 History topiramate 100 mg tablet (Topamax) 100 mg PO BID 12/24/20 11/13/23 History aspirin 81 mg tablet,delayed 81 mg PO QAM 04/06/21 11/13/23 History release (Kerwin Low Dose Aspirin) fexofenadine 180 mg tablet 180 mg PO DAILY 05/08/21 11/13/23 History levothyroxine 100 mcg tablet 100 mcg PO DAILYBB 05/08/21 11/13/23 History montelukast 10 mg tablet 10 mg PO HS 05/08/21 11/13/23 History ondansetron 4 mg disintegrating 4 mg translingual Q8H PRN Nausea 05/08/21 11/13/23 History tablet azelastine 137 mcg (0.1 %) nasal 1 spray intranasal BID 01/06/23 11/13/23 History spray aerosol epinephrine 0.3 mg/0.3 mL 0.3 mg IM DIRECTED PRN Allergic 01/06/23 11/13/23 History injection, auto-injector (EpiPen) Reaction ferrous sulfate 325 mg (65 mg 325 mg PO QID 01/06/23 11/13/23 History iron) tablet fluticasone 250 mcg-salmeterol 50 1 inh inhalation BID 01/06/23 11/13/23 History mcg/dose blistr powdr for inhalation (Advair Diskus) ipratropium 20 mcg-albuterol 100 1 puff inhalation QID PRN USE IN 01/06/23 11/13/23 History mcg/actuation mist for inhalation PLACE OF XOPENEX IF NEEDED (Combivent Respimat) levalbuterol HCl 1.25 mg/3 mL 1.25 mg inhalation QID PRN 01/06/23 11/13/23 History solution for nebulization WHEEZING/SHORT OF BREATH mometasone 50 mcg/actuation nasal 2 spray intranasal BID 01/06/23 11/13/23 History spray multivitamin 1 tab PO DAILY 01/06/23 11/13/23 History sennosides 8.6 mg tablet (senna) 8.6 mg PO DAILY PRN Constipation 01/06/23 11/13/23 History verapamil 40 mg tablet 80 mg (2 x 40 mg) PO BID #60 tabs 01/09/23 11/13/23 Rx Patient History Medical History Elevated LFTs Chronic anemia Dehydration Colitis with rectal bleeding Bloody diarrhea Hypertension Adrenal cyst monitoring Kidney stones no surgery Chronic back pain Degenerative disc disease Osteoarthritis Hx of sepsis ~2017 treated at [facility]. Anxiety Mitral valve prolapse follows with Dr Aguirre Heart disease Narcolepsy Chronic obstructive pulmonary disease Sleep apnea CPAP -- have not used in about a year (it broke and has not yet been fixed) NSVT (nonsustained ventricular tachycardia) Asthma, severe persistent Gastroparesis Celiac disease GERD (gastroesophageal reflux disease) IBS (irritable bowel syndrome) Hypothyroidism no current medication -- TSH normal without meds. CHARLES (iron deficiency anemia) ferrous sulfate QID. Dyslipidemia MRSA (methicillin resistant Staphylococcus aureus) 1999 dx nose septum wound 2019 dx in lungs Surgical History History of esophagogastroduodenoscopy (EGD) History of colonoscopy History of section x1 History of dilatation and curettage History of bilateral tubal ligation S/P GLENNY-BSO S/P surgery on nasal septum "collapsed septum" s/p post op infection that "ate away the septum" S/P nasal surgery Hx of cholecystectomy History of arthroscopic knee surgery left Hx of cardiac cath "2009 - normal coronaries" Family History Other No family history of adverse response to anesthesia Social History Smoking Status: Never smoker Second Hand Exposure: No; Do You Dip or Chew Tobacco: No; Hx Alcohol Use: No Hx Substance Use: No Preferred Language: French Communication Ability: Effective Family Independence Case Manager Required: No Beliefs That Will Affect Care: None marital status: Current Living Situation: Spouse and Family Current Living Situation Comment: and adult son Other Information That Helps Us Care for You: No Feels Safe at Home: Yes Safety Concerns: Feels Safe At This Time Assistive Devices: Denture - Upper, Glasses and Oxygen - at Night Review of Systems Review of Systems: All systems reviewed & are unremarkable except as noted in HPI & below Physical Exam Physical Exam: Well nourished thin female in nad Eyes: PERRL, conjunctivae normal, anicteric sclerae Respiratory: Normal respirations Gastrointestinal (Abdomen): soft nt nd Results & Data Vital Signs (Past 12 Hours) Vital Signs Temp Pulse Pulse Resp BP Pulse Ox O2 Del Method 11/14/23 11:17 36.9 C 80 18 101/61 97 Room Air 11/14/23 08:45 67 11/14/23 08:22 36.7 C 75 20 127/76 96 Room Air 11/14/23 03:05 36.2 C L 69 20 125/78 97 Room Air Laboratory Results Microcytic anemia no bun elevation Diagnostic Findings neck cta reviewed no abdominal imaging
--- NOTE | 2023-11-14 12:18 | Electrocardiogram Report ---
Test Reason : Blood Pressure : / mmHG Vent. Rate : 082 BPM Atrial Rate : 082 BPM P-R Int : 156 ms QRS Dur : 074 ms QT Int : 384 ms P-R-T Axes : 046 000 088 degrees QTc Int : 448 ms Poor data quality, interpretation may be adversely affected Normal sinus rhythm Nonspecific ST and T wave abnormality Abnormal ECG When compared with ECG of 13-NOV-2023 12:16, Premature ventricular complexes are no longer Present Nonspecific T wave abnormality, improved in Inferior leads QT has lengthened Confirmed by Lai Grant ([id number]) on 11/14/2023 12:17:40 PM Referred By: Sandy Rainey Confirmed By:Hero Grant
--- NOTE | 2023-11-14 13:23 | Hospitalist Progress Note ---
Date of Service November 14, 2023 Assessment & Plan (1) Syncope: (2) Dyspnea: (3) Palpitation: (4) Anemia: (5) PAF (paroxysmal atrial fibrillation): (6) Dyslipidemia: (7) NSVT (nonsustained ventricular tachycardia): Plan 63 year old female that presents to the ED with SOB, palpitations and reports 'passing out' overnight when she went to the bathroom. This has happened approximately 6 times over the last 6 months. She was here in August after one of the episodes when she hit her head. She has a known history of PAT and followed with Cardiology but the last documented appt was 2017. She has a known history of VT in the and is noted to be beta-harsha and statin intolerant. She is intolerant to beta-harsha and was placed on Verapamil. Syncopal episodes in the were related to non-sustained SVT. In 2014 she had a holter monitor placed in 2011 with some intermittent PVCs and one 4 beat NSVT. Pt has had unintentional weight over the past 3 months. Has celiac disease and known weight loss and worsening GERD. Her last EGD/colonoscopy has been nearly 10 years ago. Syncope: Dyspnea: Palpitations: Likely related to symptomatic anemia Orthostatic vital signs do not indicate orthostatic hypotension Follows with [facility] Cardiology; last appt 2017 Beta-harsha and statin intolerant, Takes a baby ASA TTE noted mild concentric LVH, basal septum is thickened and angulated consistent with sigmoid septum, left ventricular wall motion is normal, EF is 60 to 65%, mild mitral calcification, trace MR Head/Neck CTA did not show any acute abnormalities/occlusion Cardiology eval noted Continue home verapamil Epigastric discomfort: Chronic anemia: Symptomatic anemia: Celiac Disease: Patient has noted celiac disease and sensitivities to certain medication that contain wheat 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 Continue Zofran PRN and Protonix IV GI eval noted GI recommends outpatient EGD/Colonoscopy Hb had trended down from 9.6 on admission to 7.8 this AM Monitor Hb level and BM. Keep NPO PMN. If continues to trend down, will discuss again with GI in AM Folate level is low 3.39 Iron and ferritin levels are low at 17 and 3.5 respectively Start IV venofer 300mg daily x 3 doses. Patient reports she tolerates venofer CAD: Cardiac catheterization in 2009 without occlusions HLD: Chronic Intolerant of statins Does not take any statins Asthma: Chronic Takes Montelukast;continue Disposition: PCP: Dr. Weldon Code Status: Full Code VTE Prophylaxis: Teds and SCDs for now I spent a total of 55 minutes coordinating, documenting and providing care for this patient excluding time spent in performance of separately billed services Admission and Anticipated Discharge Date Admission Date: November 13, 2023 Subjective Patient seen and examined Report syncopal episode at home Reports some cough Reports dyspnea on exertion Reported loose stools overnight. Reported bowel movement was not bloody, but greenish. Denies any abdominal pain, hematemesis, hematuria or any obvious bleeding. Denies fever, chills Denies dysuria, frequency urgency Denies chest pain, palpitations today Physical Exam Constitutional: + well hydrated; no acute distress Eyes: PERRL, conjunctivae normal, anicteric sclerae ENMT: external ear and nose normal, oropharynx normal Respiratory: normal respiratory effort, lungs clear to auscultation Cardiovascular: S1 S2 Gastrointestinal (Abdomen): normal bowel sounds, soft, nontender, no hepatosplenomegaly Musculoskeletal: No pedal edema Neurologic: PERRL, EOMI, accommodation nl, no face palsy, no dysarthria Psychiatric: A+Ox3, euthymic affect Results & Data Results & Data Vital Signs (Past 12 Hours) Vital Signs Temp Pulse Pulse Resp BP Pulse Ox O2 Del Method 11/14/23 11:17 36.9 C 80 18 101/61 97 Room Air 11/14/23 08:45 67 11/14/23 08:22 36.7 C 75 20 127/76 96 Room Air 11/14/23 07:45 Room Air 11/14/23 03:05 36.2 C L 69 20 125/78 97 Room Air Laboratory Results Abnormal lab results 11/13/23 11/13/23 11/14/23 Range/Units 12:17 16:32 05:29 RBC 3.75 L (4.20-5.40) M/uL Hgb 8.9 L 7.8 L (12.0-16.0) g/dl Hct 32.4 L 27.8 L (37.0-47.0) % MCV 74.3 L 74.1 L (80.0-100.0) fL MCH 20.4 L 20.8 L (25.0-34.0) pg MCHC 27.5 L 28.1 L (32.0-36.0) g/dL RDW Coeff of Reginaldo 17.2 H 17.1 H (11.5-14.5) % Lymph # (Auto) (1.20-3.40) K/uL Iron (35-150) mcg/dl Ferritin (8-388) ng/ml Folate 3.39 L (>5.38) ng/ml 11/14/23 Range/Units 14:12 RBC 3.85 L (4.20-5.40) M/uL Hgb 7.9 L (12.0-16.0) g/dl Hct 28.5 L (37.0-47.0) % MCV 74.0 L (80.0-100.0) fL MCH 20.5 L (25.0-34.0) pg MCHC 27.7 L (32.0-36.0) g/dL RDW Coeff of Reginaldo 17.2 H (11.5-14.5) % Lymph # (Auto) 1.02 L (1.20-3.40) K/uL Iron 17 L (35-150) mcg/dl Ferritin 3.5 L (8-388) ng/ml Folate (>5.38) ng/ml (1) Syncope Syncope type: unspecified Qualified Code(s): R55 - Syncope and collapse (4) Anemia Anemia type: unspecified type Qualified Code(s): D64.9 - Anemia, unspecified
[2023-11-14] MEDS: FOLIC ACID 1 MG in SYRINGE 9.8 ML IV STA (14:00)
[2023-11-14 15:02] LABS: Ferritin 3.5 ng/ml (8-388)
[2023-11-14 15:04] LABS: Basophils # (auto) 0.03 K/uL (0.00-0.20); Basophils % (auto) 0.6 %; Eosinophils # (auto) 0.03 K/uL (0.00-0.50); Eosinophils % (auto) 0.6 %; Hematocrit (blood only) 28.5 % (37.0-47.0); Hemoglobin 7.9 g/dl (12.0-16.0); Hypochromasia Present; Immature Granulocytes # (auto) 0.01 K/uL (0.01-0.20); Immature Granulocytes % (auto) 0.2 %; Lymphocytes # (auto) 1.02 K/uL (1.20-3.40); Lymphocytes % (auto) 20.4 %; Mean Corpuscular Hemoglobin 20.5 pg (25.0-34.0); Mean Corpuscular Hgb Conc 27.7 g/dL (32.0-36.0); Mean Platelet Volume 10.3 fL (9.4-12.4); Monocytes # (auto) 0.35 K/uL (0.11-0.59); Neutrophils # (auto) 3.55 K/uL (1.40-6.50); Neutrophils % (auto) 71.2 %; Platelet Count 326 K/uL (130-400); RDW Coefficient of Variation 17.2 % (11.5-14.5); RDW Standard Deviation 46.1 fL (36.4-46.3); Red Blood Count 3.85 M/uL (4.20-5.40); Reticulocyte % 1.23 % (0.50-2.00); White Blood Count 4.99 K/ul (4.8-10.8)
[2023-11-14] MEDS: IRON SUCROSE 300 MG in SODIUM CHLORIDE 0.9% 250 ML IV SCH (17:25)
[2023-11-14] MEDS: oxyCODONE HCL IR 5 MG TAB (IMMEDIATE RELEASE) PO STA (21:11)
[2023-11-15] MEDS: SODIUM CHLORIDE 0.9% 500 ML IV SCH (03:29)
[2023-11-15] MEDS: HEPARIN 100 UNIT/ML 5ML FLUSH FLUSH PRN (06:37)
[2023-11-15 06:56] LABS: Hematocrit (blood only) 26.5 % (37.0-47.0); Hemoglobin 7.2 g/dl (12.0-16.0); Mean Corpuscular Hemoglobin 20.2 pg (25.0-34.0); Mean Corpuscular Hgb Conc 27.2 g/dL (32.0-36.0); Mean Corpuscular Volume 74.2 fL (80.0-100.0); Mean Platelet Volume 10.2 fL (9.4-12.4); Platelet Count 278 K/uL (130-400); RDW Coefficient of Variation 17.2 % (11.5-14.5); RDW Standard Deviation 46.4 fL (36.4-46.3); Red Blood Count 3.57 M/uL (4.20-5.40); White Blood Count 4.81 K/ul (4.8-10.8)
[2023-11-15] MEDS: FOLIC ACID 1 MG TAB PO SCH (07:40)
[2023-11-15 07:58] LABS: Calcium 8.7 mg/dl (8.6-10.3); Est GFR (African American) 80.5 ml/min; Est GFR (Non-African American) 69.5 ml/min; Magnesium 2.1 mg/dl (1.7-2.4); Potassium 3.3 mmol/L (3.5-5.1)
--- NOTE | 2023-11-15 08:13 | Cardiology Progress Note ---
Date of Service November 15, 2023 Assessment & Plan (1) Syncope: (2) Palpitation: (3) Anemia: (4) Atrial tachycardia, paroxysmal: Plan IMPRESSION: 63 year old with past medical history of syncope and NSVT in 1998, PAT, HTN, HLD, who presents after 2 syncopal episodes. Noted to have nausea and poor PO intake. Labs with anemia, hemoglobin 7.8. Notes a longstanding history of anemia and normally gets blood transfusions when her hemoglobin drops below 9. Telemetry reviewed with no pauses or arrhythmias. PLAN: Syncope: No concerning arrhythmias on telemetry Significant microcytic anemia noted, chronic. Received IV iron this morning. P atranjan has longstanding history of needing blood transfusions--will defer to primary service Encourage adequate hydration--patient is currently n.p.o. for possible EGD, per their last progress note- no inpatient interventions are planned; consider advancing diet. With improvement in hydration as well as anemia lightheadedness should improve. Atrial tach: 2 brief runs of atrial tachycardia 3-4 beats in duration on telemetry Notable intolerance to beta-harsah therapy. Continue verapamil as ordered Recommend maintaining a potassium goal of 4.0 and mag goal of 2.0. 40 meq of KCl given this a.m. Case discussed with Dr. Girard. Further recommendations pending assessment. I spent a total of 40 minutes on the date of service in preparation, delivery, and documentation of the care provided to the patient excluding any time spent in the performance of separately billed services. TERRIE Ku Department of Cardiology, [facility] This chart was completed in part utilizing Speech Voice Recognition Software. Grammatical errors, random word insertions, pronoun errors, and incomplete sentences are an occasional consequence of this system due to software limitations, ambient noise, and hardware issues. Any formal questions or concerns about the content, text, or information contained within the body of this dictation should be directly addressed to the provider for clarification. Admission and Anticipated Discharge Date Admission Date: November 13, 2023 Supervising Physician Co-Signing Physician Notes Attending attestation: Case reviewed with the advanced practitioner. I have personally performed a history and physical examination on the patient. I have reviewed the advanced practitioner's documentation on the date of service referenced in note, and I agree with, and take responsibility for the plan of care. Continue prior to hospital treatment with verapamil. I spent a total of 20 minutes coordinating, documenting, and providing care for this patient excluding time spent in the performance of separately billed services or time spent by another provider. Live Girard Subjective 63 year old with past medical history of syncope and NSVT in 1998, PAT, HTN, HLD, who presents after 2 syncopal episodes. Noted to have nausea and poor PO intake. Labs with anemia, hemoglobin 7.8. Telemetry thus far reviewed with no pauses or concerning arrhythmias. Tele: Sinus rhythm 60s to 90s with PVCs, short runs of atrial tach lasting 4-8 beats. Asymptomatic. Labs: Hemoglobin of 7.2, stable. Renal function stable. Potassium low, 3.3 (supplemented with 40 meq KCL) Upon entrance into the room patient ambulating from the bathroom. Continues to have some mild lightheadedness with position changes however symptoms have greatly improved since yesterday. Nursing notes of blood pressure in the 80s to 90s systolic overnight-was treated with 500 cc of normal saline with improvement. She is currently n.p.o. for possible scope. From a cardiac standpoint she denies any chest pain or shortness of breath. She does have some wheezing and a cough that has been unchanged since admission. She did get her inhalers this morning. No orthopnea or PND. No lower extremity edema. Review of Systems Review of Systems: All systems reviewed & are unremarkable except as noted in HPI & below Physical Exam Physical Exam: General: No acute distress. A+Ox3. HEENT: Normocephalic. Atraumatic. PERRL. EOMI. Conjunctiva and sclera clear. NECK: No carotid bruits. No JVD. Carotid upstrokes are brisk. Heart: RRR. S1 and S2 noted. No murmur. No rubs or gallops. PMI non displaced. Lungs: Intermittent expiratory wheeze and cough Abdomen: Normal bowel sounds. Soft. Nontender. No masses or organomegaly. No abdominal bruits. Extremities: No edema. No clubbing or cyanosis. Pulses: radial=2/4, posterior tibial=2/4, dorsalis pedis = 2/4. NEURO: No focal deficits. PSYCH: Appropriate affect and insight. Results & Data Vital Signs (Past 12 Hours) Vital Signs Temp Pulse Pulse Resp BP Pulse Ox O2 Del Method 11/15/23 07:47 Room Air 11/15/23 07:30 36.6 C 71 19 101/62 96 Room Air 11/15/23 04:37 66 95/56 L 11/15/23 03:27 36.9 C 63 20 88/55 L 96 Room Air 11/14/23 23:16 36.4 C L 67 18 99/64 L 96 Room Air 11/14/23 21:57 67 Laboratory Results Cardiac Enzymes 11/14/23 Range/Units 14:12 Lactate Dehydrogenase 179 (86-244) U/L CBC 11/14/23 11/15/23 Range/Units 14:12 06:31 WBC 4.99 4.81 (4.8-10.8) K/ul RBC 3.85 L 3.57 L (4.20-5.40) M/uL Hgb 7.9 L 7.2 L (12.0-16.0) g/dl Hct 28.5 L 26.5 L (37.0-47.0) % Plt Count 326 278 (130-400) K/uL Neut # (Auto) 3.55 (1.40-6.50) K/uL Lymph # (Auto) 1.02 L (1.20-3.40) K/uL [place] # (Auto) 0.35 (0.11-0.59) K/uL Eos # (Auto) 0.03 (0.00-0.50) K/uL Baso # (Auto) 0.03 (0.00-0.20) K/uL Comprehensive Metabolic Panel 11/15/23 Range/Units 06:31 Sodium 141 (136-145) mmol/L Potassium 3.3 L (3.5-5.1) mmol/L Chloride 111 H (98-107) mmol/L Carbon Dioxide 22 (21-32) mmol/L BUN 8 (6-23) mg/dl Creatinine 0.89 (0.6-1.2) mg/dl Glucose 86 (70-99(Fasting)) mg/dl Calcium 8.7 (8.6-10.3) mg/dl Intake and Output 11/14/23 11/15/23 11/15/23 22:59 06:59 14:59 Intake Total 745 / 1245 500 / 1245 265 / 265 Balance 745 / 1245 500 / 1245 265 / 265 Intake: IV 265 / 765 500 / 765 265 / 265 Iron Sucrose 300 mg In Sodium 265 / 265 265 / 265 Chloride 0.9% 250 ml @ 176.667 mls/hr IV DAILY [facility] Rx#: [id number] Sodium Chloride 0.9% 500 ml @ 500 / 500 500 mls/hr IV .Q1H [facility] Rx#: [id number] Oral 480 / 480 Other: # Unmeasured Voids 2 1 Weight 58.4 kg Weight Measurement Method Standing Scale (1) Syncope Syncope type: unspecified Qualified Code(s): R55 - Syncope and collapse (3) Anemia Anemia type: unspecified type Qualified Code(s): D64.9 - Anemia, unspecified
[2023-11-15] MEDS ORDERED: POTASSIUM CHLORIDE / WTR 10 MEQ/100 ML PLCT IV SCH (08:30)
[2023-11-15] MEDS: POTASSIUM CHLORIDE CRTAB 20 MEQ TABCR PO STA (09:14)
--- NOTE | 2023-11-15 12:11 | Hospitalist Progress Note ---
Date of Service November 15, 2023 Assessment & Plan (1) Syncope: (2) Dyspnea: (3) Palpitation: (4) Anemia: (5) PAF (paroxysmal atrial fibrillation): (6) Dyslipidemia: (7) NSVT (nonsustained ventricular tachycardia): Plan 63 year old female that presents to the ED with SOB, palpitations and reports 'passing out' overnight when she went to the bathroom. This has happened approximately 6 times over the last 6 months. She was here in August after one of the episodes when she hit her head. She has a known history of PAT and followed with Cardiology but the last documented appt was 2017. She has a known history of VT in the and is noted to be beta-harsha and statin intolerant. She is intolerant to beta-harsha and was placed on Verapamil. Syncopal episodes in the were related to non-sustained SVT. In 2014 she had a holter monitor placed in 2011 with some intermittent PVCs and one 4 beat NSVT. Pt has had unintentional weight over the past 3 months. Has celiac disease and known weight loss and worsening GERD. Her last EGD/colonoscopy has been nearly 10 years ago. Syncope: Dyspnea: Palpitations: Likely related to symptomatic anemia Orthostatic vital signs do not indicate orthostatic hypotension Follows with [facility]iology; last appt 2017 Beta-harsha and statin intolerant, Takes a baby ASA TTE noted mild concentric LVH, basal septum is thickened and angulated consistent with sigmoid septum, left ventricular wall motion is normal, EF is 60 to 65%, mild mitral calcification, trace MR Head/Neck CTA did not show any acute abnormalities/occlusion Cardiology eval noted Continue home verapamil per Cardiology Replete hypokalemia Epigastric discomfort: Chronic anemia: Symptomatic anemia: Celiac Disease: Patient has noted celiac disease and sensitivities to certain medication that contain wheat 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 Continue Zofran PRN and Protonix IV GI eval noted GI recommends outpatient EGD/Colonoscopy Hb had trended down from 9.6 on admission to 7.2 this AM Monitor Hb level and BM. Keep NPO PMN. If continues to trend down, will discuss again with GI in AM Folate level is low 3.39 Iron and ferritin levels are low at 17 and 3.5 respectively Continue IV venofer 300mg daily x 3 doses. With Hb trend and symptomatic anemia, will give 1 PRBC outside indication for Hb <7 CAD: Cardiac catheterization in 2010 without occlusions HLD: Chronic Intolerant of statins Does not take any statins Asthma: Chronic Takes Montelukast;continue Disposition: PCP: Dr. Weldon Code Status: Full Code VTE Prophylaxis: Teds and SCDs for now I spent a total of 50 minutes coordinating, documenting and providing care for this patient excluding time spent in performance of separately billed services Admission and Anticipated Discharge Date Admission Date: November 13, 2023 Subjective Patient seen and examined Still reports occasional lightheadedness and exertional dyspnea Was hypotensive overnight Denied any melena, hematochezia, hematuria, hemoptysis Denied other complaints Physical Exam Constitutional: + well hydrated; no acute distress Eyes: PERRL, conjunctivae normal, anicteric sclerae ENMT: external ear and nose normal, oropharynx normal Respiratory: normal respiratory effort, lungs clear to auscultation Cardiovascular: S1 S2 Gastrointestinal (Abdomen): normal bowel sounds, soft, nontender, no hepatosplenomegaly Neurologic: PERRL, EOMI, accommodation nl, no face palsy, no dysarthria Psychiatric: A+Ox3, euthymic affect Results & Data Results & Data Vital Signs (Past 12 Hours) Vital Signs Temp Pulse Resp BP Pulse Ox O2 Del Method 11/15/23 11:17 36.7 C 73 16 110/73 98 Room Air 11/15/23 07:47 Room Air 11/15/23 07:30 36.6 C 71 19 101/62 96 Room Air 11/15/23 04:37 66 95/56 L 11/15/23 03:27 36.9 C 63 20 88/55 L 96 Room Air Laboratory Results Abnormal lab results 11/15/23 11/15/23 Range/Units 06:31 14:06 RBC 3.57 L 3.80 L (4.20-5.40) M/uL Hgb 7.2 L 7.8 L (12.0-16.0) g/dl Hct 26.5 L 28.7 L (37.0-47.0) % MCV 74.2 L 75.5 L (80.0-100.0) fL MCH 20.2 L 20.5 L (25.0-34.0) pg MCHC 27.2 L 27.2 L (32.0-36.0) g/dL RDW Std Deviation 46.4 H 47.0 H (36.4-46.3) fL RDW Coeff of Reginaldo 17.2 H 17.4 H (11.5-14.5) % Potassium 3.3 L (3.5-5.1) mmol/L Chloride 111 H (98-107) mmol/L BUN/Creatinine Ratio 9.0 L (10-20) Antibody Screen POSITIVE A (1) Syncope Syncope type: unspecified Qualified Code(s): R55 - Syncope and collapse (4) Anemia Anemia type: unspecified type Qualified Code(s): D64.9 - Anemia, unspecified
[2023-11-15 14:34] LABS: Hematocrit (blood only) 28.7 % (37.0-47.0); Hemoglobin 7.8 g/dl (12.0-16.0); Mean Corpuscular Hemoglobin 20.5 pg (25.0-34.0); Mean Corpuscular Hgb Conc 27.2 g/dL (32.0-36.0); Mean Corpuscular Volume 75.5 fL (80.0-100.0); Mean Platelet Volume 10.3 fL (9.4-12.4); Platelet Count 310 K/uL (130-400); RDW Coefficient of Variation 17.4 % (11.5-14.5); White Blood Count 4.95 K/ul (4.8-10.8)
[2023-11-15] MEDS ORDERED: SODIUM CHLORIDE 0.9% 250 ML IV PRN (15:44)
[2023-11-16 06:45] LABS: Hematocrit (blood only) 32.3 % (37.0-47.0); Hemoglobin 9.2 g/dl (12.0-16.0); Mean Corpuscular Hemoglobin 21.4 pg (25.0-34.0); Mean Corpuscular Hgb Conc 28.5 g/dL (32.0-36.0); Mean Corpuscular Volume 75.3 fL (80.0-100.0); Mean Platelet Volume 10.4 fL (9.4-12.4); Platelet Count 308 K/uL (130-400); RDW Coefficient of Variation 17.6 % (11.5-14.5); RDW Standard Deviation 47.7 fL (36.4-46.3); Red Blood Count 4.29 M/uL (4.20-5.40); White Blood Count 5.21 K/ul (4.8-10.8)
[2023-11-16 07:56] LABS: BUN Creatinine Ratio 11.7 (10-20); Calcium 9.1 mg/dl (8.6-10.3); Creatinine Clr Calc Pharmacy 68.2 ml/min; Est GFR (African American) 95.9 ml/min; Est GFR (Non-African American) 82.8 ml/min; Magnesium 2.1 mg/dl (1.7-2.4); Phosphorus 3.5 mg/dl (2.5-4.9); Potassium 3.8 mmol/L (3.5-5.1)
--- NOTE | 2023-11-16 08:54 | Electrocardiogram Report ---
Test Reason : Blood Pressure : / mmHG Vent. Rate : 088 BPM Atrial Rate : 104 BPM P-R Int : 000 ms QRS Dur : 072 ms QT Int : 312 ms P-R-T Axes : 000 -01 -36 degrees QTc Int : 377 ms Atrial fibrillation Nonspecific ST abnormality Abnormal ECG When compared with ECG of 14-NOV-2023 09:10, Atrial fibrillation has replaced Sinus rhythm Nonspecific T wave abnormality, worse in Inferior leads QT has shortened Confirmed by Lai Grant ([id number]) on 11/16/2023 8:53:38 AM Referred By: Sandy Rainey Confirmed By:Hero Grant
--- NOTE | 2023-11-16 10:58 | Cardiology Progress Note ---
Date of Service November 16, 2023 Assessment & Plan (1) Syncope: (2) Palpitation: (3) Anemia: (4) Atrial tachycardia, paroxysmal: (5) PAF (paroxysmal atrial fibrillation): Plan IMPRESSION: 63 year old with past medical history of syncope and NSVT in 1998, PAT, HTN, H LD, who presents after 2 syncopal episodes. Noted to have nausea and poor PO intake. Labs with anemia, hemoglobin 7.8 >> 9.2 (x1 PRBC). Notes a longstanding history of anemia and normally gets blood transfusions when her hemoglobin drops below 9. New onset PAF 11/15/2023; rates as high as 150s, improved with current dose of verapamil to 80-90s PLAN: Syncope: No concerning arrhythmias on telemetry explaining syncopal episodes. Significant microcytic anemia noted, chronic. Received IV iron this morning. Patient has longstanding history of needing blood transfusions--will defer to primary service With improvement in hydration as well as anemia lightheadedness should improve. PAF with RVR: New onset atrial fibrillation with RVR, diagnosed 11/15/2023 at 1806. Rates as high as 150s. Now controlled in the 80s to 90s. Mildly symptomatic with chest tightness, shortness of breath, and tachy-palpitations. Medication options are limited-notable intolerance to beta-harsha therapy due to interstitial lung disease. Unsure if amiodarone would be a good option for her given her pulmonary disease. Hesitant to transition her to diltiazem given hypotension. She is currently verapamil 80 mg twice daily- continue, will discuss dose adjustment with Dr. Girard Discussed stroke risk in relation to paroxysmal atrial fibrillation. At this time I think risk of bleeding outweighs benefit given longstanding anemia with unknown cause. Would be hesitant to start anticoagulation at this time. Recommend maintaining a potassium goal of 4.0 and mag goal of 2.0. HOLD Requip- increased risk of PAF with this medication. Case discussed with Dr. Girard. Further recommendations pending assessment. I spent a total of 40 minutes on the date of service in preparation, delivery, and documentation of the care provided to the patient excluding any time spent in the performance of separately billed services. TERRIE Ku Department of Cardiology, [facility] This chart was completed in part utilizing Speech Voice Recognition Software. Grammatical errors, random word insertions, pronoun errors, and incomplete sentences are an occasional consequence of this system due to software limitations, ambient noise, and hardware issues. Any formal questions or concerns about the content, text, or information contained within the body of this dictation should be directly addressed to the provider for clarification. Admission and Anticipated Discharge Date Admission Date: November 13, 2023 Supervising Physician Co-Signing Physician Notes Attending attestation: Case reviewed with the advanced practitioner. I have personally performed a history and physical examination on the patient. I have reviewed the advanced practitioner's documentation on the date of service referenced in note, and I agree with, and take responsibility for the plan of care. Pt reverted to AF, V -rate initially in the 140s, down to 80s, asymptomatic. Continue prior to hospital treatment with verapamil 80 mg BID. She is not a candidate for anticoagulation. I spent a total of 20 minutes coordinating, documenting, and providing care for this patient excluding time spent in the performance of separately billed services or time spent by another provider. Live Girard DO Subjective 63 year old with past medical history of syncope and NSVT in 1998, PAT, HTN, HLD, who presents after 2 syncopal episodes. Noted to have nausea and poor PO intake. Labs with anemia, hemoglobin 7.8. Telemetry up until 11/14 showed Sinus rhythm 60s to 90s with PVCs, short runs of atrial tach lasting 4-8 beats. Asymptomatic. Symptomatic improvement with IV hydration and transfusion up x 1 PRBC. Yesterday evening, 11/15/2023, at 18:06 patient converted to rapid atrial fibrillation, rates as high as the 150s. Symptomatic with chest tightness, shortness of breath and tachy-palpitations. Heart rates improved in the 80s to 90s with current dose of verapamil this morning. Labs: Hemoglobin 9.2 this a.m. following the administration of PRBCs. Renal function stable. Potassium 3.8. Mag 2.1. Upon entrance into the room patient resting comfortably in bed. No acute distress. Head of bed flat. Continues to have some mild chest discomfort and tachy-palpitations. Breathing improved. No orthopnea or PND. No lower extremity edema. Denies lightheadedness or dizziness. Review of Systems Review of Systems: All systems reviewed & are unremarkable except as noted in HPI & below Physical Exam Physical Exam: General: No acute distress. A+Ox3. HEENT: Normocephalic. Atraumatic. PERRL. EOMI. Conjunctiva and sclera clear. NECK: No carotid bruits. No JVD. Carotid upstrokes are brisk. Heart: Irregular. S1 and S2 noted. No murmur. No rubs or gallops. PMI non displaced. Lungs: Intermittent expiratory wheeze and cough Abdomen: Normal bowel sounds. Soft. Nontender. No masses or organomegaly. No abdominal bruits. Extremities: No edema. No clubbing or cyanosis. Pulses: radial=2/4, posterior tibial=2/4, dorsalis pedis = 2/4. NEURO: No focal deficits. PSYCH: Appropriate affect and insight. Results & Data Vital Signs (Past 12 Hours) Vital Signs Temp Pulse Pulse Resp BP BP Pulse Ox 11/16/23 08:00 11/16/23 07:43 36.6 C 89 17 111/77 96 11/16/23 03:15 36.4 C L 91 H 20 111/80 94 11/16/23 01:46 36.6 C 93 H 16 112/75 94 11/16/23 00:46 36.4 C L 90 16 118/83 95 11/15/23 23:46 36.6 C 109 H 16 110/70 96 11/15/23 23:16 36.7 C 95 H 16 119/85 95 11/15/23 23:01 37.1 C 109 H 16 122/80 92 O2 Del Method 11/16/23 08:00 Room Air 11/16/23 07:43 Room Air 11/16/23 03:15 Room Air 11/16/23 01:46 11/16/23 00:46 11/15/23 23:46 11/15/23 23:16 11/15/23 23:01 Laboratory Results CBC 11/15/23 11/16/23 Range/Units 14:06 05:50 WBC 4.95 5.21 (4.8-10.8) K/ul RBC 3.80 L 4.29 (4.20-5.40) M/uL Hgb 7.8 L 9.2 L (12.0-16.0) g/dl Hct 28.7 L 32.3 L (37.0-47.0) % Plt Count 310 308 (130-400) K/uL Comprehensive Metabolic Panel 11/16/23 Range/Units 05:50 Sodium 142 (136-145) mmol/L Potassium 3.8 (3.5-5.1) mmol/L Chloride 113 H (98-107) mmol/L Carbon Dioxide 21 (21-32) mmol/L BUN 9 (6-23) mg/dl Creatinine 0.77 (0.6-1.2) mg/dl Glucose 81 (70-99(Fasting)) mg/dl Calcium 9.1 (8.6-10.3) mg/dl Intake and Output 11/15/23 11/16/23 11/16/23 22:59 06:59 14:59 Intake Total 400 / 1065 400 / 1065 265 / 265 Balance 400 / 1065 400 / 1065 265 / 265 Intake: IV 265 / 265 Iron Sucrose 300 mg In Sodium 265 / 265 Chloride 0.9% 250 ml @ 176.667 mls/hr IV DAILY [facility] Rx#: [id number] Oral 400 / 800 400 / 800 Intake (Blood Product) Amt 0 / 0 0 / 0 Packed Cells, Leukoreduced 0 / 0 0 / 0 Unit [id number] Other: # Unmeasured Voids 2 3 Weight 57.4 kg Weight Measurement Method Standing Scale (1) Syncope Syncope type: unspecified Qualified Code(s): R55 - Syncope and collapse (3) Anemia Anemia type: unspecified type Qualified Code(s): D64.9 - Anemia, unspecified
--- NOTE | 2023-11-16 12:06 | Electrocardiogram Report ---
Test Reason : Blood Pressure : / mmHG Vent. Rate : 088 BPM Atrial Rate : 227 BPM P-R Int : 000 ms QRS Dur : 070 ms QT Int : 376 ms P-R-T Axes : 000 -10 -26 degrees QTc Int : 454 ms Poor data quality, interpretation may be adversely affected Atrial fibrillation Nonspecific T wave abnormality Abnormal ECG When compared with ECG of 15-NOV-2023 18:13, QT has lengthened Confirmed by Lai Grant ([id number]) on 11/16/2023 12:06:03 PM Referred By: Sandy Rainey Confirmed By:Hero Grant
--- NOTE | 2023-11-16 16:01 | Hospitalist Progress Note ---
Date of Service November 16, 2023 Assessment & Plan (1) Syncope: (2) Dyspnea: (3) Palpitation: (4) Anemia: (5) PAF (paroxysmal atrial fibrillation): (6) Dyslipidemia: (7) NSVT (nonsustained ventricular tachycardia): Plan 63 year old female that presents to the ED with SOB, palpitations and reports 'passing out' overnight when she went to the bathroom. This has happened approximately 6 times over the last 6 months. She was here in August after one of the episodes when she hit her head. She has a known history of PAT and followed with Cardiology but the last documented appt was 2017. She has a known history of VT in the and is noted to be beta-harsha and statin intolerant. She is intolerant to beta-harsha and was placed on Verapamil. Syncopal episodes in the were related to non-sustained SVT. In 2014 she had a holter monitor placed in 2011 with some intermittent PVCs and one 4 beat NSVT. Pt has had unintentional weight over the past 3 months. Has celiac disease and known weight loss and worsening GERD. Her last EGD/colonoscopy has been nearly 10 years ago. Syncope: Dyspnea: Palpitations: Atrial fibrillation Likely related to symptomatic anemia Orthostatic vital signs do not indicate orthostatic hypotension Follows with [facility] Cardiology; last appt 2017 Beta-harsha and statin intolerant, Takes a baby ASA TTE noted mild concentric LVH, basal septum is thickened and angulated consistent with sigmoid septum, left ventricular wall motion is normal, EF is 60 to 65%, mild mitral calcification, trace MR Head/Neck CTA did not show any acute abnormalities/occlusion Flipped into Afib with RVR on 11/15/23 Rate is currently controlled on home verapamil Discussed with Insurance Policy Issue Clerk. 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 Continue Zofran PRN and Protonix IV GI eval noted GI recommends outpatient EGD/Colonoscopy Hb had trended down from 9.6 on admission to 7.2 Folate level is low 3.39 Iron and ferritin levels are low at 17 and 3.5 respectively Got IV venofer 300mg daily x 3 doses, completed today Got 1 PRBC on 11/15/23 for symptomatic anemia Hb is 9.2 this AM CAD: Cardiac catheterization in 2010 without occlusions HLD: Chronic Intolerant of statins Does not take any statins Asthma: Chronic Takes Montelukast;continue Get CXR to reeval cough Antitussive prn Disposition: PCP: Dr. Weldon Code Status: Full Code VTE Prophylaxis: Teds and SCDs for now I spent a total of 50 minutes coordinating, documenting and providing care for this patient excluding time spent in performance of separately billed services Admission and Anticipated Discharge Date Admission Date: November 13, 2023 Subjective Patient went into A-fib with RVR yesterday evening. Got 1 packed red blood cell overnight. Patient seen and examined. Reports occasional palpitations. Otherwise reports feeling better with respect to exertional dyspnea and fatigue. Reports Denies any chest pain Denies nausea at this time. Noted some earlier Denied vomiting melena hematochezia Denies dysuria, frequency, urgency, fevers or chills Physical Exam Constitutional: + well hydrated; no acute distress Eyes: PERRL, conjunctivae normal, anicteric sclerae ENMT: external ear and nose normal, oropharynx normal Respiratory: normal respiratory effort, lungs clear to auscultation Cardiovascular: Rate/Rhythm: + irregularly irregular S1 S2 Gastrointestinal (Abdomen): normal bowel sounds, soft, nontender, no hepatosplenomegaly Musculoskeletal: No pedal edema Neurologic: PERRL, EOMI, accommodation nl, no face palsy, no dysarthria Psychiatric: A+Ox3, euthymic affect Results & Data Results & Data Vital Signs (Past 12 Hours) Vital Signs Temp Pulse Resp BP Pulse Ox O2 Del Method 11/16/23 15:18 36.7 C 94 H 17 106/70 99 Room Air 11/16/23 10:48 36.6 C 67 17 95/64 L 97 Room Air 11/16/23 08:00 Room Air 11/16/23 07:43 36.6 C 89 17 111/77 96 Room Air Laboratory Results Abnormal lab results 11/15/23 11/16/23 Range/Units 14:06 05:50 Hgb 9.2 L (12.0-16.0) g/dl Hct 32.3 L (37.0-47.0) % MCV 75.3 L (80.0-100.0) fL MCH 21.4 L (25.0-34.0) pg MCHC 28.5 L (32.0-36.0) g/dL RDW Std Deviation 47.7 H (36.4-46.3) fL RDW Coeff of Reginaldo 17.6 H (11.5-14.5) % Chloride 113 H (98-107) mmol/L Antibody Screen POSITIVE A Crossmatch See Detail (1) Syncope Syncope type: unspecified Qualified Code(s): R55 - Syncope and collapse (4) Anemia Anemia type: unspecified type Qualified Code(s): D64.9 - Anemia, unspecified
--- NOTE | 2023-11-16 16:21 | XRay Report ---
XR chest 1V portable CLINICAL HISTORY: Cough. Assess lungs. COMPARISON STUDY: Chest CT January 06, 2023. Chest radiograph November 13, 2023. FINDINGS: Postoperative findings within the spine are incidentally noted. A right internal jugular In fuse-a-Port is in place. There is no pneumothorax or pleural effusion. There is no consolidation or e vidence for pulmonary edema. Cardiomediastinal silhouette is unremarkable. IMPRESSION: No acute cardiopulmonary findings. No change in appearance of the chest. ACT 112: Negative or not required by law. Electronically signed by: Fernando Redding M.D. 11/16/2023 4:19 PM
[2023-11-16] MEDS: guaiFENesin SUGAR FREE 200 MG/10 ML UDC PO PRN (16:47)
[2023-11-17 06:26] LABS: Hematocrit (blood only) 33.7 % (37.0-47.0); Hemoglobin 9.7 g/dl (12.0-16.0); Mean Corpuscular Hemoglobin 21.5 pg (25.0-34.0); Mean Corpuscular Hgb Conc 28.8 g/dL (32.0-36.0); Mean Corpuscular Volume 74.7 fL (80.0-100.0); Mean Platelet Volume 10.4 fL (9.4-12.4); Platelet Count 286 K/uL (130-400); RDW Coefficient of Variation 18.2 % (11.5-14.5); RDW Standard Deviation 47.7 fL (36.4-46.3); Red Blood Count 4.51 M/uL (4.20-5.40); White Blood Count 4.99 K/ul (4.8-10.8)
[2023-11-17 06:34] LABS: BUN Creatinine Ratio 12.4 (10-20); Calcium 9.1 mg/dl (8.6-10.3); Creatinine Clr Calc Pharmacy 58.9 ml/min; Est GFR (African American) 80.5 ml/min; Est GFR (Non-African American) 69.5 ml/min; Magnesium 2.1 mg/dl (1.7-2.4); Phosphorus 3.1 mg/dl (2.5-4.9); Potassium 3.7 mmol/L (3.5-5.1)
--- NOTE | 2023-11-17 07:32 | Cardiology Progress Note ---
Date of Service November 17, 2023 Assessment & Plan (1) Syncope: (2) Palpitation: (3) Anemia: (4) Atrial tachycardia, paroxysmal: (5) PAF (paroxysmal atrial fibrillation): Plan IMPRESSION: 63 year old with past medical history of syncope and NSVT in 1998, PAT, HTN, H LD, who presents after 2 syncopal episodes. Noted to have nausea and poor PO intake. Labs with anemia, hemoglobin 7.8 >> 9.2 (x1 PRBC). Notes a longstanding history of anemia and normally gets blood transfusions when her hemoglobin drops below 9. New onset PAF 11/15/2023; rates as high as 150s, improved with current dose of verapamil to 80-90s PLAN: Syncope: No concerning arrhythmias on telemetry explaining syncopal episodes. Significant microcytic anemia noted, chronic. Received IV iron this morning. Patient has longstanding history of needing blood transfusions--will defer to primary service With improvement in hydration as well as anemia lightheadedness should improve. PAF with RVR: New onset atrial fibrillation with RVR, diagnosed 11/15/2023 at 1806. Rates as high as 150s. Now controlled in the 80s to 90s. Mildly symptomatic with chest tightness, shortness of breath, and tachy-palpitations. Medication options are limited-notable intolerance to beta-harsha therapy due to interstitial lung disease. Unsure if amiodarone would be a good option for her given her pulmonary disease. Hesitant to transition her to diltiazem given hypotension. She is currently verapamil 80 mg twice daily-heart rates are well-controlled on this current dose. Continue. Previously discussed stroke risk in relation to paroxysmal atrial fib rillation. At this time I think risk of bleeding outweighs benefit given longstanding anemia with unknown cause. Anticoagulation deferred at this time. Recommend maintaining a potassium goal of 4.0 and mag goal of 2.0. HOLD Requip- increased risk of PAF with this medication. Case discussed with Dr. Girard. Further recommendations pending assessment. I spent a total of 40 minutes on the date of service in preparation, delivery, and documentation of the care provided to the patient excluding any time spent in the performance of separately billed services. TERRIE Ku Department of Cardiology, [facility] This chart was completed in part utilizing Speech Voice Recognition Software. Grammatical errors, random word insertions, pronoun errors, and incomplete sentences are an occasional consequence of this system due to software limitations, ambient noise, and hardware issues. Any formal questions or concerns about the content, text, or information contained within the body of this dictation should be directly addressed to the provider for clarification. Admission and Anticipated Discharge Date Admission Date: November 13, 2023 Supervising Physician Co-Signing Physician Notes Attending attestation: Case reviewed with the advanced practitioner. I have personally performed a history and physical examination on the patient. I have reviewed the advanced practitioner's documentation on the date of service referenced in note, and I agree with, and take responsibility for the plan of care. Patient describes past intolerance to beta-harsha stating she had a "cardiac arrest" many years ago due to beta-blockers. Continue verapamil. On reassessment this afternoon, patient remains in atrial fibrillation, no subjective symptoms, however ventricular rate up into uxy162's and 120s in bed. In addition to verapamil 80 mg twice daily, start digoxin 0.125 mg IV x 1 now and then 0.25 mg daily. Possible discharge tomorrow. I spent a total of 20 minutes coordinating, documenting, and providing care for this patient excluding time spent in the performance of separately billed services or time spent by another provider. Live Girard, DO Subjective 63 year old with past medical history of syncope and NSVT in 1998, PAT, HTN, HLD, who presents after 2 syncopal episodes. Noted to have nausea and poor PO intake. Labs with anemia, hemoglobin 7.8. Telemetry up until 11/14 showed Sinus rhythm 60s to 90s with PVCs, short runs of atrial tach lasting 4-8 beats. Asymptomatic. Symptomatic improvement with IV hydration and transfusion up x 1 PRBC. 11/16/2023: On 11/15/2023 at 18:06 pm patient converted to rapid atrial fibrillation, rates as high as the 150s. Symptomatic with chest tightness, shortness of breath and tachy-palpitations. Heart rates improved in the 80s to 90s with current dose of verapamil. Patient minimally symptomatic. Deemed poor candidate for AC. Labs: Hemoglobin 9.2 following the administration of PRBCs. Renal function stable. Potassium 3.8. Mag 2.1. 11/17/2023: Telemetry: A-fib 90s to 100s prior to meds, averaging 80s to 90s following verapamil dosage Labs: Hemoglobin 9.7. Renal function stable. Potassium 3.7. Mag 2.1. Upon entrance into the room patient resting comfortably in bed. No acute distress. Head of bed flat. Asymptomatic with atrial fibrillation. No orthopnea or PND. No lower extremity edema, lightheadedness or dizziness. Review of Systems Review of Systems: All systems reviewed & are unremarkable except as noted in HPI & below Physical Exam Physical Exam: General: No acute distress. A+Ox3. HEENT: Normocephalic. Atraumatic. PERRL. EOMI. Conjunctiva and sclera clear. NECK: No carotid bruits. No JVD. Carotid upstrokes are brisk. Heart: Irregular. S1 and S2 noted. No murmur. No rubs or gallops. PMI non dis placed. Lungs: Intermittent expiratory wheeze and cough Abdomen: Normal bowel sounds. Soft. Nontender. No masses or organomegaly. No abdominal bruits. Extremities: No edema. No clubbing or cyanosis. Pulses: radial=2/4, posterior tibial=2/4, dorsalis pedis = 2/4. NEURO: No focal deficits. PSYCH: Appropriate affect and insight. Results & Data Vital Signs (Past 12 Hours) Vital Signs Temp Pulse Pulse Resp BP Pulse Ox O2 Del Method 11/17/23 03:20 36.3 C L 82 19 117/76 100 Room Air 11/17/23 00:00 Room Air 11/16/23 23:25 36.6 C 91 H 18 120/84 97 Room Air 11/16/23 23:00 100 H 11/16/23 21:42 Room Air 11/16/23 20:30 36.7 C 85 19 124/80 97 Room Air Laboratory Results CBC 11/17/23 Range/Units 05:36 WBC 4.99 (4.8-10.8) K/ul RBC 4.51 (4.20-5.40) M/uL Hgb 9.7 L (12.0-16.0) g/dl Hct 33.7 L (37.0-47.0) % Plt Count 286 (130-400) K/uL Comprehensive Metabolic Panel 11/17/23 Range/Units 05:36 Sodium 142 (136-145) mmol/L Potassium 3.7 (3.5-5.1) mmol/L Chloride 115 H (98-107) mmol/L Carbon Dioxide 21 (21-32) mmol/L BUN 11 (6-23) mg/dl Creatinine 0.89 (0.6-1.2) mg/dl Glucose 85 (70-99(Fasting)) mg/dl Calcium 9.1 (8.6-10.3) mg/dl Intake and Output 11/16/23 11/17/23 11/17/23 22:59 06:59 14:59 Intake Total 350 / 1795 200 / 1795 Balance 350 / 1795 200 / 1795 Intake: Oral 350 / 1530 200 / 1530 Other: # Unmeasured Voids 3 2 Weight 56.9 kg Weight Measurement Method Built in [facility] (1) Syncope Syncope type: unspecified Qualified Code(s): R55 - Syncope and collapse (3) Anemia Anemia type: unspecified type Qualified Code(s): D64.9 - Anemia, unspecified
[2023-11-17] MEDS: POTASSIUM CHLORIDE CRTAB 20 MEQ TABCR PO ONE (10:54)
[2023-11-17] MEDS: levoFLOXacin 750 MG TAB PO SCH (13:48)
[2023-11-17] MEDS: DIGOXIN 125 MCG in SYRINGE 9.5 ML IV STA (14:21)
--- NOTE | 2023-11-17 16:51 | Hospitalist Progress Note ---
Date of Service November 17, 2023 Assessment & Plan (1) Syncope: (2) Dyspnea: (3) Palpitation: (4) Anemia: (5) PAF (paroxysmal atrial fibrillation): (6) Dyslipidemia: (7) NSVT (nonsustained ventricular tachycardia): Plan 63 year old female that presents to the ED with SOB, palpitations and reports 'passing out' overnight when she went to the bathroom. This has happened approximately 6 times over the last 6 months. As per Prior Provider She was here in August after one of the episodes when she hit her head. She has a known history of PAT and followed with Cardiology but the last documented appt was 2017. She has a known history of VT in the and is noted to be beta-harsha and statin intolerant. She is intolerant to beta-harsha and was placed on Verapamil. Syncopal episodes in the s were related to non-sustained SVT. In 2014 she had a holter monitor placed in 2011 with some intermittent PVCs and one 4 beat NSVT. Pt has had unintentional weight over the past 3 months. Has celiac disease and known weight loss and worsening GERD. Her last EGD/colonoscopy has been nearly 10 years ago. Syncope Atrial fibrillation with RVR Likely related to symptomatic anemia Orthostatic vital signs--not suggestive of Orthostatic hypotension --ECHO:Mild concentric LVH, basal septum is thickened and angulated consistent with sigmoid septum, left ventricular wall motion is normal, EF is 60 to 65%, mild mitral calcification, trace MR --Head/Neck CTA did not show any acute abnormalities/occlusion -- Hold Requip as can cause arrhythmias H/O metoprolol intolerance Continue verapamil Added digoxin Appreciate cardiology input Given risks versus benefits, anticoagulation deferred Needs follow-up with cardiology on discharge Acute bronchitis --CXR:No acute cardiopulmonary findings. No change in appearance of the chest. 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 Continue Zofran PRN and Protonix IV GI eval noted GI recommends outpatient EGD/Colonoscopy No obvious bleeding issues Also on Carafate Monitor CBC Needs follow-up with GI on discharge Folate deficiency Iron deficiency Received IV venofer 300mg daily x 3 doses S/P 1 PRBC on 11/15/23 for symptomatic anemia Monitor CBC CAD: Cardiac catheterization in 2009 without occlusions HLD: Chronic Intolerant of statins Does not take any statins Asthma: Chronic Continue Montelukast Antitussive prn DVT Px: SCDs Code Status: Full Code Admission and Anticipated Discharge Date Admission Date: November 13, 2023 Subjective Patient is seen and examined at bedside States feeling tired Also reports cough with expectoration, sore throat and some tearing of eyes with itching Denies any chest pain, palpitations, dyspnea, dizziness No other complaints A-fib RVR on monitor Review of Systems Review of Systems: All systems reviewed & are unremarkable except as noted in Subjective Physical Exam Physical Exam: Physical Exam: Vitals signs as noted above General Appearance:Moderately built and nourished, no apparent distress Head: normocephalic, Atraumatic Eyes: normal inspection, EOMI Neck: supple, Trachea midline Respiratory/Chest: Normal breath sounds, CTA, No accessory muscle use Cardiovascular: Irregularly irregular, tachycardia, No murmur Abdomen/GI:Soft, Non tender, Bowel sounds present Extremities/Musculoskeletal:normal inspection, no edema Neurologic/Psych:AAOX3, grossly no focal neurological deficits Skin: normal color, warm Results & Data Results & Data Vital Signs (Past 12 Hours) Vital Signs Temp Pulse Pulse Resp BP Pulse Ox O2 Del Method 11/17/23 15:12 36.5 C 125 H 17 107/83 97 Room Air 11/17/23 14:21 134 H 11/17/23 10:40 36.7 C 75 17 90/53 L 98 Room Air 11/17/23 07:44 36.7 C 113 H 17 136/87 99 Room Air Laboratory Results Short CBC 11/17/23 Range/Units 05:36 WBC 4.99 (4.8-10.8) K/ul Hgb 9.7 L (12.0-16.0) g/dl Hct 33.7 L (37.0-47.0) % Plt Count 286 (130-400) K/uL BMP 11/17/23 05:36 Sodium 142 Potassium 3.7 Chloride 115 H Carbon Dioxide 21 BUN 11 Creatinine 0.89 Glucose 85 Calcium 9.1 (1) Syncope Syncope type: unspecified Qualified Code(s): R55 - Syncope and collapse (4) Anemia Anemia type: unspecified type Qualified Code(s): D64.9 - Anemia, unspecified
[2023-11-18 06:28] LABS: Hemoglobin 9.8 g/dl (12.0-16.0)
[2023-11-18 06:57] LABS: BUN Creatinine Ratio 11.8 (10-20); Calcium 9.1 mg/dl (8.6-10.3); Creatinine Clr Calc Pharmacy 56.4 ml/min; Est GFR (African American) 76.3 ml/min; Est GFR (Non-African American) 65.9 ml/min; Potassium 3.9 mmol/L (3.5-5.1)
--- NOTE | 2023-11-18 07:23 | Cardiology Progress Note ---
Date of Service November 18, 2023 Assessment & Plan (1) Syncope: (2) Palpitation: (3) Anemia: (4) Atrial tachycardia, paroxysmal: (5) PAF (paroxysmal atrial fibrillation): Plan IMPRESSION: 63 year old with past medical history of syncope and NSVT in 1998, PAT, HTN, H LD, who presents after 2 syncopal episodes. Noted to have nausea and poor PO intake. Labs with anemia, hemoglobin 7.8 >> 9.2 (x1 PRBC). Notes a longstanding history of anemia and normally gets blood transfusions when her hemoglobin drops below 9. New onset PAF 11/15/2023; rates as high as 150s, improved with current dose of verapamil to 80-90s + Digoxin. PLAN: Syncope: No concerning arrhythmias on telemetry explaining syncopal episodes. Significant microcytic anemia noted, chronic. Received IV iron this morning. Patient has longstanding history of needing blood transfusions--will defer to primary service With improvement in hydration as well as anemia lightheadedness should improve. PAF with RVR: New onset atrial fibrillation with RVR, diagnosed 11/15/2023 at 1806. Rates as high as 150s. Now controlled in the 80s to 90s. Asymptomatic when rates are controlled but having palpitations with tachycardic rates. Medication options are limited-notable intolerance to beta-harsha therapy, stating she had a "cardiac arrest" many years ago due to beta-blockers. Amiodarone deferred due to underlying interstitial lung disease Continue verapamil 80 mg twice daily- damaris to possibly increase. Digoxin started 11/17/2023, continue 0.25 mg daily, will need a repeat digoxin level 7 to 10 days after discharge. Anticoagulation contraindicated in the setting of longstanding anemia. Recommend maintaining a potassium goal of 4.0 and mag goal of 2.0. DC Requip- increased risk of PAF with this medication. Case discussed with Dr. Girard. Further recommendations pending assessment. I spent a total of 30 minutes on the date of service in preparation, delivery, and documentation of the care provided to the patient excluding any time spent in the performance of separately billed services. TERRIE Ku Department of Cardiology, [facility] This chart was completed in part utilizing Speech Voice Recognition Software. Grammatical errors, random word insertions, pronoun errors, and incomplete sentences are an occasional consequence of this system due to software limitations, ambient noise, and hardware issues. Any formal questions or concerns about the content, text, or information contained within the body of this dictation should be directly addressed to the provider for clarification. Admission and Anticipated Discharge Date Admission Date: November 13, 2023 Supervising Physician Co-Signing Physician Notes Attending attestation: Case reviewed with the advanced practitioner. I have personally performed a history and physical examination on the patient. I have reviewed the advanced practitioner's documentation on the date of service referenced in note, and I agree with, and take responsibility for the plan of care. Patient without any acute symptoms during my assessment. Spontaneously converted back to sinus rhythm just before 3:40 PM on 11/18/2023. Continue verapamil 80 mg twice daily, digoxin 0.125 mg daily. Not on anticoagulation due to anemia. Future outpatient considerations include referral for a percutaneous left atrial appendage occlusion (Watchman device). Repeat EKG tomorrow. I spent a total of 20 minutes coordinating, documenting, and providing care for this patient excluding time spent in the performance of separately billed services or time spent by another provider. Live Girard DO Subjective 63 year old with past medical history of syncope and NSVT in 1998, PAT, HTN, HLD, who presents after 2 syncopal episodes. Noted to have nausea and poor PO intake. Labs with anemia, hemoglobin 7.8. Telemetry up until 11/14 showed Sinus rhythm 60s to 90s with PVCs, short runs of atrial tach lasting 4-8 beats. Asymptomatic. Symptomatic improvement with IV hydration and transfusion up x 1 PRBC. 11/16/2023: On 11/15/2023 at 18:06 pm patient converted to rapid atrial fibrillation, rates as high as the 150s. Symptomatic with chest tightness, shortness of breath and tachy-palpitations. Heart rates improved in the 80s to 90s with current dose of verapamil. Patient minimally symptomatic. Deemed poor candidate for AC. Labs: Hemoglobin 9.2 following the administration of PRBCs. Renal function stable. Potassium 3.8. Mag 2.1. 11/17/2023: Atrial fibrillation rates averaging from 80s to 120s Verapamil 80 mg twice daily continued Digoxin started with a single dose of 0.125 mg IV then 0.25 mg daily Anticoagulation contraindicated. 11/18/2023: Telemetry: A-fib 70-90s. Labs: Hemoglobin 9.8. Renal function stable. Potassium 3.9. Upon entrance into the room patient resting comfortably in bed. No acute distress. Asymptomatic when AFIB rates are controlled. No orthopnea or PND. No lower extremity edema, lightheadedness or dizziness. Physical Exam Physical Exam: General: No acute distress. A+Ox3. HEENT: Normocephalic. Atraumatic. PERRL. EOMI. Conjunctiva and sclera clear. NECK: No carotid bruits. No JVD. Carotid upstrokes are brisk. Heart: Irregular. S1 and S2 noted. No murmur. No rubs or gallops. PMI non displaced. Lungs: Intermittent expiratory wheeze and cough Abdomen: Normal bowel sounds. Soft. Nontender. No masses or organomegaly. No abdominal bruits. Extremities: No edema. No clubbing or cyanosis. Pulses: radial=2/4, posterior tibial=2/4, dorsalis pedis = 2/4. NEURO: No focal deficits. PSYCH: Appropriate affect and insight. Results & Data Vital Signs (Past 12 Hours) Vital Signs Temp Pulse Pulse Resp BP Pulse Ox O2 Del Method 11/18/23 04:07 36.5 C 87 18 113/72 97 Room Air 11/17/23 23:29 36.6 C 96 H 18 116/79 96 Room Air 11/17/23 22:56 113 H 11/17/23 20:00 Room Air 11/17/23 19:45 36.8 C 107 H 19 100/69 98 Room Air (1) Syncope Syncope type: unspecified Qualified Code(s): R55 - Syncope and collapse (3) Anemia Anemia type: unspecified type Qualified Code(s): D64.9 - Anemia, unspecified
--- NOTE | 2023-11-18 08:05 | Electrocardiogram Report ---
Test Reason : Blood Pressure : / mmHG Vent. Rate : 079 BPM Atrial Rate : 127 BPM P-R Int : 000 ms QRS Dur : 074 ms QT Int : 354 ms P-R-T Axes : 000 -12 026 degrees QTc Int : 405 ms Atrial fibrillation Abnormal ECG When compared with ECG of 16-NOV-2023 11:02, Nonspecific T wave abnormality, improved in Anterolateral leads Confirmed by Lai Grant ([id number]) on 11/18/2023 8:05:15 AM Referred By: Sandy Rainey Confirmed By:Hero Grant
[2023-11-18 11:06] VITALS: RESP 18
[2023-11-18] MEDS ORDERED: ARTIFICIAL TEARS OPB PRN (12:10)
[2023-11-18] MEDS: DIGOXIN 0.125 MG TAB PO SCH (15:13)
--- NOTE | 2023-11-18 16:30 | Hospitalist Progress Note ---
Date of Service November 18, 2023 Assessment & Plan (1) Syncope: (2) Dyspnea: (3) Palpitation: (4) Anemia: (5) PAF (paroxysmal atrial fibrillation): (6) Dyslipidemia: (7) NSVT (nonsustained ventricular tachycardia): Plan 63 year old female that presents to the ED with SOB, palpitations and reports 'passing out' overnight when she went to the bathroom. This has happened approximately 6 times over the last 6 months. As per Prior Provider She was here in August after one of the episodes when she hit her head. She has a known history of PAT and followed with Cardiology but the last documented appt was 2017. She has a known history of VT in the and is noted to be beta-harsha and statin intolerant. She is intolerant to beta-harsha and was placed on Verapamil. Syncopal episodes in the s were related to non-sustained SVT. In 2014 she had a holter monitor placed in 2011 with some intermittent PVCs and one 4 beat NSVT. Pt has had unintentional weight over the past 3 months. Has celiac disease and known weight loss and worsening GERD. Her last EGD/colonoscopy has been nearly 10 years ago. Syncope Atrial fibrillation with RVR Likely related to symptomatic anemia Orthostatic vital signs--not suggestive of Orthostatic hypotension --ECHO:Mild concentric LVH, basal septum is thickened and angulated consistent with sigmoid septum, left ventricular wall motion is normal, EF is 60 to 65%, mild mitral calcification, trace MR --Head/Neck CTA did not show any acute abnormalities/occlusion -- Hold Requip as can cause arrhythmias H/O metoprolol intolerance Continue verapamil Added digoxin Appreciate cardiology input Given risks versus benefits, anticoagulation deferred Needs follow-up with cardiology on discharge Amiodarone deferred due to interstitial lung disease Intermittently tachycardic today May need to increase calcium channel harsha dose if blood pressure tolerates Acute bronchitis --CXR:No acute cardiopulmonary findings. No change in appearance of the chest. 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 Continue Zofran PRN and Protonix IV GI eval noted GI recommends outpatient EGD/Colonoscopy No obvious bleeding issues Also on Carafate Monitor CBC Needs follow-up with GI on discharge Folate deficiency Iron deficiency Received IV venofer 300mg daily x 3 doses S/P 1 PRBC on 11/15/23 for symptomatic anemia Monitor CBC CAD: Cardiac catheterization in 2009 without occlusions HLD: Chronic Intolerant of statins Does not take any statins Asthma: Chronic Continue Montelukast Antitussive prn DVT Px: SCDs Code Status: Full Code Admission and Anticipated Discharge Date Admission Date: November 13, 2023 Subjective Patient is seen and examined at bedside Less cough today Also reports some chest discomfort associated with cough Heart rate variable Denies any palpitations, dyspnea, dizziness Review of Systems Review of Systems: All systems reviewed & are unremarkable except as noted in Subjective Physical Exam Physical Exam: Physical Exam: Vitals signs as noted above General Appearance:Moderately built and nourished, no apparent distress Head: normocephalic, Atraumatic Eyes: normal inspection, EOMI Neck: supple, Trachea midline Respiratory/Chest: Normal breath sounds, CTA, No accessory muscle use Cardiovascular: Irregularly irregular, tachycardia, No murmur Abdomen/GI:Soft, Non tender, Bowel sounds present Extremities/Musculoskeletal:normal inspection, no edema Neurologic/Psych:AAOX3, grossly no focal neurological deficits Skin: normal color, warm Results & Data Results & Data Vital Signs (Past 12 Hours) Vital Signs Temp Pulse Pulse Resp BP Pulse Ox O2 Del Method 11/18/23 15:40 36.6 C 143 H 18 105/73 99 Room Air 11/18/23 15:13 98 H 11/18/23 11:05 36.5 C 88 18 108/72 98 Room Air 11/18/23 07:51 36.6 C 91 H 16 125/80 98 Room Air Laboratory Results Short CBC 11/18/23 Range/Units 06:01 Hgb 9.8 L (12.0-16.0) g/dl Hct 34.0 L (37.0-47.0) % BMP 11/18/23 06:01 Sodium 141 Potassium 3.9 Chloride 114 H Carbon Dioxide 22 BUN 11 Creatinine 0.93 Glucose 88 Calcium 9.1 (1) Syncope Syncope type: unspecified Qualified Code(s): R55 - Syncope and collapse (4) Anemia Anemia type: unspecified type Qualified Code(s): D64.9 - Anemia, unspecified
--- NOTE | 2023-11-18 22:41 | Communication Note ---
Date of Service: November 18, 2023 Patient with sore mouth sensation and white lesions over her tongue. AP Oral thrush Topical nystatin course
[2023-11-18] MEDS: CLOTRIMAZOLE 10 MG TROCHE BUCCAL SCH (23:02)
[2023-11-19 07:53] LABS: Hematocrit (blood only) 33.2 % (37.0-47.0); Hemoglobin 9.6 g/dl (12.0-16.0)
[2023-11-19 08:05] LABS: Calcium 9.2 mg/dl (8.6-10.3); Est GFR (African American) 83.9 ml/min; Est GFR (Non-African American) 72.4 ml/min; Magnesium 1.9 mg/dl (1.7-2.4); Potassium 3.8 mmol/L (3.5-5.1)
--- NOTE | 2023-11-19 10:39 | Electrocardiogram Report ---
Test Reason : Blood Pressure : / mmHG Vent. Rate : 066 BPM Atrial Rate : 066 BPM P-R Int : 176 ms QRS Dur : 078 ms QT Int : 398 ms P-R-T Axes : 046 -13 027 degrees QTc Int : 417 ms Normal sinus rhythm Normal ECG When compared with ECG of 18-NOV-2023 05:26, Sinus rhythm has replaced Atrial fibrillation Confirmed by Lai Grant ([id number]) on 11/19/2023 10:39:26 AM Referred By: Sandy Rainey Confirmed By:Hero Grant
[2023-11-19 12:11] VITALS: O2SAT 99
--- NOTE | 2023-11-19 12:24 | Hospitalist Progress Note ---
Date of Service November 19, 2023 Assessment & Plan (1) Syncope: (2) Dyspnea: (3) Palpitation: (4) Anemia: (5) PAF (paroxysmal atrial fibrillation): (6) Dyslipidemia: (7) NSVT (nonsustained ventricular tachycardia): Plan 63 year old female that presents to the ED with SOB, palpitations and reports 'passing out' overnight when she went to the bathroom. This has happened approximately 6 times over the last 6 months. As per Prior Provider She was here in August after one of the episodes when she hit her head. She has a known history of PAT and followed with Cardiology but the last documented appt was 2017. She has a known history of VT in the and is noted to be beta-harsha and statin intolerant. She is intolerant to beta-harsha and was placed on Verapamil. Syncopal episodes in the s were related to non-sustained SVT. In 2014 she had a holter monitor placed in 2011 with some intermittent PVCs and one 4 beat NSVT. Pt has had unintentional weight over the past 3 months. Has celiac disease and known weight loss and worsening GERD. Her last EGD/colonoscopy has been nearly 10 years ago. Syncope Atrial fibrillation with RVR Likely related to symptomatic anemia Orthostatic vital signs--not suggestive of Orthostatic hypotension --ECHO:Mild concentric LVH, basal septum is thickened and angulated consistent with sigmoid septum, left ventricular wall motion is normal, EF is 60 to 65%, mild mitral calcification, trace MR --Head/Neck CTA did not show any acute abnormalities/occlusion -- Hold Requip as can cause arrhythmias H/O metoprolol intolerance Continue verapamil Added digoxin Appreciate cardiology input Given risks versus benefits, anticoagulation deferred Needs follow-up with cardiology on discharge Amiodarone deferred due to interstitial lung disease Spontaneously converted to sinus Discussed with cardiology Dr. Girard on 11/19/2023 Plan to be discharged home today Acute bronchitis --CXR:No acute cardiopulmonary findings. No change in appearance of the chest. 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 Continue Zofran PRN and Protonix IV GI eval noted GI recommends outpatient EGD/Colonoscopy No obvious bleeding issues Also on Carafate Monitor CBC Needs follow-up with GI on discharge Folate deficiency Iron deficiency Received IV venofer 300mg daily x 3 doses S/P 1 PRBC on 11/15/23 for symptomatic anemia Monitor CBC CAD: Cardiac catheterization in 2010 without occlusions HLD: Chronic Intolerant of statins Does not take any statins Asthma: Chronic Continue Montelukast Antitussive prn DVT Px: SCDs Code Status: Full Code Admission and Anticipated Discharge Date Admission Date: November 13, 2023 Subjective Patient is seen and examined at bedside States feeling better today Converted to sinus spontaneously Cough continues to improve Denies any dyspnea, dizziness, nausea, vomiting, chest pain Discussed with cardiology today Plan to be discharged home today Review of Systems Review of Systems: All systems reviewed & are unremarkable except as noted in Subjective Physical Exam Physical Exam: Physical Exam: Vitals signs as noted above General Appearance:Moderately built and nourished, no apparent distress Head: normocephalic, Atraumatic Eyes: normal inspection, EOMI Neck: supple, Trachea midline Respiratory/Chest: Normal breath sounds, CTA, No accessory muscle use Cardiovascular: S1, S2, No murmur Abdomen/GI:Soft, Non tender, Bowel sounds present Extremities/Musculoskeletal:normal inspection, no edema Neurologic/Psych:AAOX3, grossly no focal neurological deficits Skin: normal color, warm Results & Data Results & Data Vital Signs (Past 12 Hours) Vital Signs Temp Pulse Resp BP Pulse Ox O2 Del Method 11/19/23 12:11 36.7 C 71 18 95/65 L 99 Room Air 11/19/23 08:15 36.5 C 65 18 137/88 100 Room Air 11/19/23 08:00 Room Air 11/19/23 03:08 36.6 C 67 18 130/75 98 Room Air Laboratory Results Short CBC 11/19/23 Range/Units 07:09 Hgb 9.6 L (12.0-16.0) g/dl Hct 33.2 L (37.0-47.0) % BMP 11/19/23 07:09 Sodium 140 Potassium 3.8 Chloride 111 H Carbon Dioxide 24 BUN 12 Creatinine 0.86 Glucose 90 Calcium 9.2 (1) Syncope Syncope type: unspecified Qualified Code(s): R55 - Syncope and collapse (4) Anemia Anemia type: unspecified type Qualified Code(s): D64.9 - Anemia, unspecified
--- NOTE | 2023-11-19 12:46 | Discharge Summary ---
Date of Service November 19, 2023 Admission HPI Per Admitting Provider Ms. Hackett is a 63 year old female that presents to the ED today with SOB, palpitations and reports 'passing out' overnight when she went to the bathroom. This has happened approximately 6 times over the last 6 months. She was here in August after one of the episodes when she hit her head. Head CT was ne She has a known history of Atrial Fibrillation and followed with Cardiology but the last documented appt was 2017. The last documented [facility] cardiology note is from 2016. She has a known history of VT in the s and is noted to be beta-harsha and statin intolerant. Pt has had unintentional weight over the past 3 months She had an 'allergic reaction' that appears was bradycardia cardiac arrest s/p beta-harsha and was placed on Verapamil. Pt has known celiac disease and known weight loss and worsening GERD. Her last EGD/colonoscopy has been nearly 10 years ago. Syncopal episodes in the were related to non-sustained SVT. In 2014 she had a holter monitor placed in 2011 with some intermittent PVCs and one 4 beat NSVT. Sometimes she wakes in the middle of the night and has acidic symptoms and vomits. She also reports pain in her chest with position changes. She In the ED ECG SR with occasional PVC. NO leukocytosis, BNP 257. Pt denies RANDOLPH, visual or auditory changes, dysuria, other falls or trauma. Patient will be admitted for further evaluation and management of her syncopal episode with an anemia work up including TIBC, Ferritin and Reticulocyte count, and orthostatic BP's. Will obtain a repeat ECHO given elevated BNP, involve Cardiology to reestablish care. Given celiac and GERD; will involve GI. Admission Exam Per Admitting Provider GENERAL APPEARANCE: AxOx4, chronically ill appearing woman, no acute distress. HEENT: NC, AT. MMM. EOMI, clear conjunctiva, oropharynx clear. poor dentition NECK: Supple without lymphadenopathy. No stiffness or restricted ROM. HEART: Normal rate and regular rhythm, normal S1/S1, no m/r/g LUNGS: CTAB, moving air well. No crackles or wheezes are heard. ABDOMEN: Soft, epigastric tenderness, small ventral hernia with valsalva EXTREMITIES: Without cyanosis, clubbing or edema. NEUROLOGICAL: Grossly nonfocal. Alert and oriented, moving all 4 extremities. CN not formally tested but appear grossly intact Skin: Warm and dry without any rash. Principal Diagnosis Syncope Atrial fibrillation with RVR Acute bronchitis Celiac disease Folate deficiency Iron deficiency Oral thrush Discharge Data Allergies Allergy/AdvReac Type Severity Reaction Status Date / Time bee venom protein (honey bee) Allergy Severe ANAPHYLAXIS Verified 01/06/23 20:05 coconut Allergy Severe RASH; SOB Verified 01/06/23 20:05 gluten Allergy Severe CELIAC'S Verified 01/06/23 20:05 iron Allergy Severe SOB,TACHY Verified 01/06/23 20:05 WITH IV IRON latex Allergy Severe Anaphylaxis Verified 01/06/23 20:05 Penicillins Allergy Severe Anaphylaxis Verified 01/06/23 20:05 Sulfa (Sulfonamide Allergy Severe Anaphylaxis Verified 01/06/23 20:05 Antibiotics) ROBER Inhibitors Allergy Intermediate RASH/TACHYC Verified 01/06/23 20:05 ARDIA cefaclor Allergy Intermediate CECLOR--RASH/UPSET Verified 01/06/23 20:05 STOMACH egg Allergy Intermediate RASH & Verified 01/06/23 20:05 Bloating Influenza Virus Vaccines Allergy Intermediate rash and Verified 01/06/23 20:05 bloating lactose Allergy Intermediate RASH; Verified 01/06/23 20:05 BLOATING; DIARRHEA; VOMITING tetracycline Allergy Intermediate NAUSEA/VOMI Verified 01/06/23 20:05 TING/RASH Quinolones Allergy Unknown ALLERGY TO Verified 01/06/23 20:05 AVELOX ,CAN TAKE CIPRO OR LEVAQUIN W/O RXN Beta-Blockers AdvReac Intermediate intolerance Verified 01/06/23 20:44 (Beta-Adrenergic Bloc as per records Consultations 11/13/23 14:33 ED Decision to Admit Stat 11/13/23 14:51 Consult Cardiology Routine 11/13/23 14:59 Consult Gastroenterology Routine Procedures Performed Laboratory Results WBC 4.99 K/ul (4.8-10.8) 11/17/23 05:36 RBC 4.51 M/uL (4.20-5.40) 11/17/23 05:36 Hgb 9.6 g/dl (12.0-16.0) L 11/19/23 07:09 Hct 33.2 % (37.0-47.0) L 11/19/23 07:09 MCV 74.7 fL (80.0-100.0) L 11/17/23 05:36 MCH 21.5 pg (25.0-34.0) L 11/17/23 05:36 MCHC 28.8 g/dL (32.0-36.0) L 11/17/23 05:36 RDW Std Deviation 47.7 fL (36.4-46.3) H 11/17/23 05:36 RDW Coeff of Reginaldo 18.2 % (11.5-14.5) H 11/17/23 05:36 Plt Count 286 K/uL (130-400) 11/17/23 05:36 MPV 10.4 fL (9.4-12.4) 11/17/23 05:36 Immature Gran % (Auto) 0.2 % 11/14/23 14:12 Neut % (Auto) 71.2 % 11/14/23 14:12 Lymph % (Auto) 20.4 % 11/14/23 14:12 [place] % (Auto) 7.0 % 11/14/23 14:12 Eos % (Auto) 0.6 % 11/14/23 14:12 Baso % (Auto) 0.6 % 11/14/23 14:12 Reticulocyte % (Auto) 1.23 % (0.50-2.00) 11/14/23 14:12 Neut # (Auto) 3.55 K/uL (1.40-6.50) 11/14/23 14:12 Lymph # (Auto) 1.02 K/uL (1.20-3.40) L 11/14/23 14:12 [place] # (Auto) 0.35 K/uL (0.11-0.59) 11/14/23 14:12 Eos # (Auto) 0.03 K/uL (0.00-0.50) 11/14/23 14:12 Baso # (Auto) 0.03 K/uL (0.00-0.20) 11/14/23 14:12 Reticulocyte # 0.050 10^6/uL (0.020-0.100) 11/14/23 14:12 Immature Gran # (Auto) 0.01 K/uL (0.01-0.20) 11/14/23 14:12 Polychromasia 1+ 11/13/23 12:17 Hypochromasia Present 11/14/23 14:12 Haptoglobin 179 mg/dL (43-212) 11/14/23 14:12 Sodium 140 mmol/L (136-145) 11/19/23 07:09 Potassium 3.8 mmol/L (3.5-5.1) 11/19/23 07:09 Chloride 111 mmol/L (98-107) H 11/19/23 07:09 Carbon Dioxide 24 mmol/L (21-32) 11/19/23 07:09 Anion Gap 5 (3-11) 11/19/23 07:09 BUN 12 mg/dl (6-23) 11/19/23 07:09 Creatinine 0.86 mg/dl (0.6-1.2) 11/19/23 07:09 Est Cr Clr Drug Dosing 61.0 ml/min 11/19/23 07:09 Est GFR ( Amer) 83.9 ml/min 11/19/23 07:09 Est GFR (Non-Af Amer) 72.4 ml/min 11/19/23 07:09 BUN/Creatinine Ratio 14.0 (10-20) 11/19/23 07:09 Glucose 90 mg/dl (70-99(Fasting)) 11/19/23 07:09 Calcium 9.2 mg/dl (8.6-10.3) 11/19/23 07:09 Phosphorus 3.1 mg/dl (2.5-4.9) 11/17/23 05:36 Magnesium 1.9 mg/dl (1.7-2.4) 11/19/23 07:09 Iron 17 mcg/dl (35-150) L 11/14/23 14:12 Unsaturated IBC 441 mcg/dl (155-355) H 11/13/23 12:17 Transferrin 329 mg/dl (200-360) 11/14/23 14:12 Ferritin 3.5 ng/ml (8-388) L 11/14/23 14:12 Total Bilirubin 0.4 mg/dl (0.2-1.0) 11/13/23 12:17 AST 16 U/L (13-39) 11/13/23 12:17 ALT 11 U/L (7-52) 11/13/23 12:17 Alkaline Phosphatase 87 U/L (34-104) 11/13/23 12:17 Lactate Dehydrogenase 179 U/L (86-244) 11/14/23 14:12 Troponin I High Sens 8.7 pg/ml (0-14) 11/13/23 12:17 B-Natriuretic Peptide 257 pg/ml (0-100) H 11/13/23 12:17 Total Protein 7.0 gm/dl (6.0-8.3) 11/13/23 12:17 Albumin 4.1 gm/dl (3.4-5.0) 11/13/23 12:17 Globulin 2.9 gm/dl (2.5-4.0) 11/13/23 12:17 Albumin/Globulin Ratio 1.4 (0.9-2) 11/13/23 12:17 Triglycerides 109 mg/dl (0-150) 11/14/23 05:29 Cholesterol 186 mg/dl (0-200) 11/14/23 05:29 LDL Cholesterol, Calc 118 mg/dl 11/14/23 05:29 VLDL Cholesterol, Calc 22 mg/dl (0-30) 11/14/23 05:29 HDL Cholesterol 46 mg/dl 11/14/23 05:29 Cholesterol/HDL Ratio 4.0 (0-5) 11/14/23 05:29 Lipase 11 U/L (11-82) 11/13/23 12:17 Vitamin B12 479 pg/ml (180-914) 11/13/23 12:17 Folate 3.39 ng/ml (>5.38) L 11/13/23 12:17 TSH 1.425 uIu/ml (0.300-4.500) 11/13/23 12:17 Urine Color Dark Yellow 11/13/23 14:10 Urine Appearance Clear (Clear) 11/13/23 14:10 Urine pH 6.0 (4.5-7.5) 11/13/23 14:10 Ur Specific [place] 1.025 (1.000-1.030) 11/13/23 14:10 Urine Protein 1+ (Negative) H 11/13/23 14:10 Urine Glucose (UA) Negative (Negative) 11/13/23 14:10 Urine Ketones Trace (Negative) H 11/13/23 14:10 Urine Blood Negative (Negative) 11/13/23 14:10 Urine Nitrite Negative (Negative) 11/13/23 14:10 Urine Bilirubin 1+ (Negative) H 11/13/23 14:10 Urine Urobilinogen Negative (Negative) 11/13/23 14:10 Ur Leukocyte Esterase Trace (Negative) H 11/13/23 14:10 Urine WBC (Auto) 0-5 /hpf (0-5) 11/13/23 14:10 Urine RBC (Auto) 0-2 /hpf (0-2) 11/13/23 14:10 U Hyaline Cast (Auto) 6-10 /lpf (0-2) H 11/13/23 14:10 U Epithel Cells (Auto) 0-2 /hpf (0-2) 11/13/23 14:10 Urine Bacteria (Auto) None Seen (None Seen) 11/13/23 14:10 Urine Mucus Present (None Prsent) A 11/13/23 14:10 Adenovirus (PCR) Not Detected (NotDetected) 11/13/23 12:40 B. pertussis DNA (PCR) Not Detected (NotDetected) 11/13/23 12:40 B.parapertussis DNA PCR Not Detected (NotDetected) 11/13/23 12:40 C. pneumoniae DNA (PCR) Not Detected (NotDetected) 11/13/23 12:40 Coronavirus OC43 (PCR) Not Detected (NotDetected) 11/13/23 12:40 Coronavirus HKU1 (PCR) Not Detected (NotDetected) 11/13/23 12:40 Coronavirus 229E (PCR) Not Detected (NotDetected) 11/13/23 12:40 SARS-CoV-2 (PCR) Not Detected (NotDetected) 11/13/23 12:40 Coronavirus NL63 (PCR) Not Detected (NotDetected) 11/13/23 12:40 Human Metapneumovir PCR Not Detected (NotDetected) 11/13/23 12:40 Influenza Type A (PCR) Not Detected (NotDetected) 11/13/23 12:40 Influenza Type B (PCR) Not Detected (NotDetected) 11/13/23 12:40 M. pneumoniae (PCR) Not Detected (NotDetected) 11/13/23 12:40 Parainfluenza 1 (PCR) Not Detected (NotDetected) 11/13/23 12:40 Parainfluenza 2 (PCR) Not Detected (NotDetected) 11/13/23 12:40 Parainfluenza 3 (PCR) Not Detected (NotDetected) 11/13/23 12:40 Parainfluenza 4 (PCR) Not Detected (NotDetected) 11/13/23 12:40 RSV (PCR) Not Detected (NotDetected) 11/13/23 12:40 Entero/Rhino (PCR) Not Detected (NotDetected) 11/13/23 12:40 Blood Type A Positive 11/15/23 14:06 Antibody Screen POSITIVE A 11/15/23 14:06 Antibody Identification Anti-e 11/15/23 14:06 Antibody ID Comment 11/15/23 14:06 Crossmatch See Detail 11/15/23 14:06 Impressions Head CTA 11/14/23 03:46 CT angio neck wo/w con, CT angio head wo/w CLINICAL HISTORY: syncope TECHNIQUE: Contiguous axial CT images of the head were acquired from the base of the skull to the vertex without intravenous contrast administration. CT angiography of the head and neck was performed following intravenous administration of iodinated contrast. Coronal and sagittal MIPS were obtained from the axial data set and were submitted for review. Automated dose lowering techniques and/or adjustment according to patient size were utilized for this examination. All measurements were calculated based on NASCET criteria. CT DOSE: 1331.37 mGy.cm Comparison: None available at the time of this dictation. FINDINGS: CT head: There is no acute intracranial hemorrhage or evidence of acute territorial infarction. No shift of the midline structures, mass effect, or extra-axial abnormalities are shown. Lungs and soft tissues are unremarkable. CTA Neck: A 3 vessel aortic arch is shown. There is no significant atherosclerotic plaque in the aortic arch or the origins of the innominate, left common carotid, and left subclavian arteries. The common carotid, external carotid, cervical segments of the internal carotid arteries, and the cervical segments of the vertebral arteries are patent without hemodynamically significant stenosis. The left vertebral artery is dominant. CTA Head: The anterior and posterior cerebral circulations are patent. No hemodynamically significant stenosis, aneurysm, dissection, or arteriovenous malformation is shown. IMPRESSION: 1. No acute intracranial hemorrhage, evidence of acute territorial infarction, or other acute intracranial disease process. 2. No occlusion, hemodynamically significant stenosis, or dissection in the major cervical arteries. 3. No occlusion, hemodynamically significant stenosis, aneurysm, dissection, or arteriovenous malformation in the major intracranial arteries. Assessment of stenosis of the internal carotid arteries is based on NASCET criteria. ACT 112: Negative or not required by law. Electronically signed by: Mono Batista M.D. 11/14/2023 7:08 AM Neck CTA 11/14/23 03:46 CT angio neck wo/w con, CT angio head wo/w CLINICAL HISTORY: syncope TECHNIQUE: Contiguous axial CT images of the head were acquired from the base of the skull to the vertex without intravenous contrast administration. CT angiography of the head and neck was performed following intravenous administration of iodinated contrast. Coronal and sagittal MIPS were obtained from the axial data set and were submitted for review. Automated dose lowering techniques and/or adjustment according to patient size were utilized for this examination. All measurements were calculated based on NASCET criteria. CT DOSE: 1331.37 mGy.cm Comparison: None available at the time of this dictation. FINDINGS: CT head: There is no acute intracranial hemorrhage or evidence of acute territorial infarction. No shift of the midline structures, mass effect, or extra-axial abnormalities are shown. Lungs and soft tissues are unremarkable. CTA Neck: A 3 vessel aortic arch is shown. There is no significant atherosclerotic plaque in the aortic arch or the origins of the innominate, left common carotid, and left subclavian arteries. The common carotid, external carotid, cervical segments of the internal carotid arteries, and the cervical segments of the vertebral arteries are patent without hemodynamically significant stenosis. The left vertebral artery is dominant. CTA Head: The anterior and posterior cerebral circulations are patent. No hemodynamically significant stenosis, aneurysm, dissection, or arteriovenous malformation is shown. IMPRESSION: 1. No acute intracranial hemorrhage, evidence of acute territorial infarction, or other acute intracranial disease process. 2. No occlusion, hemodynamically significant stenosis, or dissection in the major cervical arteries. 3. No occlusion, hemodynamically significant stenosis, aneurysm, dissection, or arteriovenous malformation in the major intracranial arteries. Assessment of stenosis of the internal carotid arteries is based on NASCET criteria. ACT 112: Negative or not required by law. Electronically signed by: Mono Batista M.D. 11/14/2023 7:08 AM Chest X-Ray 11/16/23 15:35 XR chest 1V portable CLINICAL HISTORY: Cough. Assess lungs. COMPARISON STUDY: Chest CT January 06, 2023. Chest radiograph November 13, 2023. FINDINGS: Postoperative findings within the spine are incidentally noted. A right internal jugular [id number] is in place. There is no pneumothorax or p leural effusion. There is no consolidation or evidence for pulmonary edema. Cardiomediastinal silhouette is unremarkable. IMPRESSION: No acute cardiopulmonary findings. No change in appearance of the chest. ACT 112: Negative or not required by law. Electronically signed by: Fernando Redding M.D. 11/16/2023 4:19 PM Ordered Studies 11/14/23 03:46 CTA head wo/w [CT angio head wo/w] Urgent CTA neck wo/w con [CT angio neck wo/w con] Urgent Hospital Course (1) Syncope: (2) Dyspnea: (3) Palpitation: (4) Anemia: (5) PAF (paroxysmal atrial fibrillation): (6) Dyslipidemia: (7) NSVT (nonsustained ventricular tachycardia): Plan 63 year old female that presents to the ED with SOB, palpitations and reports 'passing out' overnight when she went to the bathroom. This has happened approximately 6 times over the last 6 months. As per Prior Provider She was here in August after one of the episodes when she hit her head. She has a known history of PAT and followed with Cardiology but the last documented appt was 2017. She has a known history of VT in the 1989's and is noted to be beta-harsha and statin intolerant. She is intolerant to beta-harsha and was placed on Verapamil. Syncopal episodes in the s were related to non-sustained SVT. In 2014 she had a holter monitor placed in 2011 with some intermittent PVCs and one 4 beat NSVT. Pt has had unintentional weight over the past 3 months. Has celiac disease and known weight loss and worsening GERD. Her last EGD/colonoscopy has been nearly 10 years ago. Syncope Atrial fibrillation with RVR Likely related to symptomatic anemia Orthostatic vital signs--not suggestive of Orthostatic hypotension --ECHO:Mild concentric LVH, basal septum is thickened and angulated consistent with sigmoid septum, left ventricular wall motion is normal, EF is 60 to 65%, mild mitral calcification, trace MR --Head/Neck CTA did not show any acute abnormalities/occlusion -- Hold Requip as can cause arrhythmias H/O metoprolol intolerance Continue verapamil Added digoxin Appreciate cardiology input Given risks versus benefits, anticoagulation deferred Needs follow-up with cardiology on discharge Amiodarone deferred due to interstitial lung disease Spontaneously converted to sinus Discussed with cardiology Dr. Girard on 11/19/2023 Plan to be discharged home today Acute bronchitis --CXR:No acute cardiopulmonary findings. No change in appearance of the chest. 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 Continue Zofran PRN and Protonix IV GI eval noted GI recommends outpatient EGD/Colonoscopy No obvious bleeding issues Also on Carafate Monitor CBC Needs follow-up with GI on discharge Folate deficiency Iron deficiency Received IV venofer 300mg daily x 3 doses S/P 1 PRBC on 11/15/23 for symptomatic anemia Monitor CBC CAD: Cardiac catheterization in 2009 without occlusions HLD: Chronic Intolerant of statins Does not take any statins Asthma: Chronic Continue Montelukast Antitussive prn DVT Px: SCDs Code Status: Full Code Total Time Total Time Spent Total Time Spent (In Minutes): 65 minutes Discharge Plan Discharge Items Patient Disposition: Home - Self-Care Reason For Visit: SYNCOPE Discharge Diagnosis: Syncope Atrial fibrillation with RVR Acute bronchitis Celiac disease Folate deficiency Iron deficiency Oral thrush Activity: Per Instructions section Exercise/Sports: Gradually increase as tolerated Non-emergency contact: Primary Care Provider, [employer] and Medicine Technologist Call non-emergency contact if: you have any medication questions, your symptoms worsen, your pain is concerning for you and you have a fever Follow-up/Referrals: Live Girard DO [[facility] [facility]] - (The Cardiology office will contact you for a follow up appointment.) Lacey Weldon MD [Primary Care Provider] - (Date & Time 11/22/2023 1:20 PM Provider Vicki Cadet MD Department Family Medicine [facility] ) Diet: Gluten Free Addtl Attending Provider Instructions: Follow-up with your primary care physician Dr. Weldon on 11/22/2023 1:20 PM Follow-up with your quotation clerk Dr. Girard as advised Follow-up with your children's entertainer Dr. Mai Bennett for outpatient EGD, colonoscopy as recommended for further evaluation of anemia --Complete the antibiotic course Levofloxacin and clotrimazole course as prescribed. Seek immediate medical attention if your symptoms reoccur or worsen Please take all medications as instructed on discharge list below. Please call if you have any questions or problems. You can reach a [facility] hospitalist on duty at [facility] 24 hours a day by calling [phone] Pending Studies at Discharge: No Stand-Alone Forms: My [facility] [employer], Smoking Cessation Medications and DC Order Prescriptions: New levofloxacin 750 mg Tablet 750 mg PO DAILY@1100 Qty: 2 0RF digoxin [Digitek] 125 mcg (0.125 mg) Tablet 0.125 mg PO DAILY@1600 Qty: 30 0RF clotrimazole 10 mg Jorge 10 mg buccal [id number] 7 Days Qty: 35 0RF folic acid 1 mg Tablet 1 mg PO QAM Qty: 30 0RF ferrous sulfate 325 mg (65 mg iron) tablet 325 mg PO DAILY Qty: 30 0RF Continued aspirin [Kerwin Low Dose Aspirin] 81 mg Tablet,Delayed Release (Dr/Ec) 81 mg PO QAM ondansetron 4 mg tablet,disintegrating 4 mg translingual Q8H PRN (Reason: Nausea) fexofenadine 180 mg Tablet 180 mg PO DAILY levothyroxine 100 mcg Tablet 100 mcg PO DAILYBB montelukast 10 mg Tablet 10 mg PO HS rabeprazole 20 mg Tablet,Delayed Release (Dr/Ec) 40 mg PO BID ropinirole 1 mg Tablet 1 mg PO HS amitriptyline 75 mg Tablet 75 mg PO HS cimetidine 400 mg Tablet 400 mg PO BID sucralfate [Carafate] 1 gram Tablet 1 g PO ACHS ergocalciferol (vitamin D2) [Vitamin D2] 1,250 mcg (50,000 unit) Capsule 1,250 mcg PO 2XWK Rx Instructions: wednesday & polyethylene glycol 3350 [Miralax] 17 gram/dose Powder 17 g PO QID PRN (Reason: FOR AT LEAST 1 STOOL DAILY) topiramate [Topamax] 100 mg Tablet 100 mg PO BID multivitamin Tablet 1 tab PO DAILY fluticasone propion-salmeterol [Advair Diskus] 250-50 mcg/dose Blister With Device 1 inh INHALATION BID sennosides [senna] 8.6 mg Tablet 8.6 mg PO DAILY PRN (Reason: Constipation) ferrous sulfate 325 mg (65 mg iron) Tablet 325 mg PO QID mometasone 50 mcg/actuation [place],Non-Aerosol 2 spray INTRANASAL BID Rx Instructions: administer into each nostril levalbuterol HCl 1.25 mg/3 mL Solution For Nebulization 1.25 mg INHALATION QID PRN (Reason: WHEEZING/SHORT OF BREATH) azelastine 137 mcg (0.1 %) Aerosol,[place] 1 spray INTRANASAL BID Rx Instructions: administer into each nostril epinephrine [EpiPen] 0.3 mg/0.3 mL Auto-Injector 0.3 mg IM DIRECTED PRN (Reason: Allergic Reaction) Combivent Respimat 20-100 mcg/actuation Mist 1 puff INHALATION QID PRN (Reason: USE IN PLACE OF XOPENEX IF NEEDED) Rx Instructions: space evenly during waking hours verapamil 40 mg Tablet 80 mg PO BID 30 Days Qty: 120 0RF Discharge Orders: Discharge Order (Routine); Ordered 11/19/23 Ordered By: Rogelio Hodges Admission Data Admit Date/Time: 11/13/23 14:29 Attending Provider: Rogelio Hodges Admit Provider: Sandy Rainey Primary Care Provider: Lacey Weldon Other Providers: Sandy Rainey; Eloy Morillo; Mai Bennett
[2023-11-19 15:28] VITALS: BP 116/68; PULSE 73; TEMP 97.9
== END 2023-11-19 16:42 | disposition home or self-care (01) | DRG 309 ==
LOC: ED 12:05 → SUATTDRO 14:29 → 4W 14:29

== ENCOUNTER 2024-01-27 16:57 | Inpatient (IN) ==
--- NOTE | 2024-01-27 17:31 | Emergency Department Note ---
Impression & Plan Syncope, Exertional chest pain, Anemia ED Provider Note NAME: SHAYY CARRILLO AGE: 63 SEX: F : 1960 ARRIVES VIA: Walk-In INFORMANT: Patient ED PROVIDER(S): Charles Siddiqui DO CHIEF COMPLAINT: syncope and chest pain HPI: Patient is a 63-year-old female who presents to the ER for syncopal episode. She notes she has had 5 these since this past Wednesday. Generally occurs with positional changes. She notes she has also started getting exertional chest pain and shortness of breath over the same time. Denies any head pain or belly pain. No dysuria, urgency, or frequency. No other exacerbating or remitting factors. Notes that she has had episodes of syncope before in the past. Does have a history of A-fib but does not take any blood thinners due to her anemia. ADDITIONAL HISTORY OBTAINED: Per HPI Chronic Medical/Social Conditions Affecting Care: Per HPI PAST MEDICAL HISTORY:See Below PAST SURGICAL HISTORY:See Below FAMILY HISTORY:See Below SOCIAL HISTORY:See Below HOME MEDICATIONS:See Below ALLERGIES:See Below VITALS:See Below PHYSICAL EXAMINATION: GENERAL: Sitting up in bed, alert, well appearing, well nourished, no distress, non-toxic HEAD: NC/AT EYE EXAM: normal conjunctiva. PERRL and EOM's grossly intact. OROPHARYNX: no exudate, no erythema, lips, buccal mucosa, and tongue normal and mucous membranes are moist NECK: supple, no nuchal rigidity, no adenopathy, non-tender LUNGS: Clear to auscultation. Normal chest wall mechanics HEART: no murmurs, S1 normal and S2 normal ABDOMEN: abdomen soft, non-tender, normo-active bowel sounds, no masses, no rebound or guarding. BACK: Back is symmetrical on inspection and there is no deformity, no midline tenderness, no CVA tenderness. SKIN: no rashes and no bruising UPPER EXTREMITIES: upper extremities are grossly normal. LOWER EXTREMITIES: No pitting edema. NEURO EXAM: Normal sensorium, cranial nerves II-XII intact, normal speech, no weakness of arms, no weakness of legs. No drift. Finger to nose intact. Gross sensation intact. MEDICAL DECISION MAKING: Patient is a 63-year-old female who presents ER for the above-stated complaint. IV was established blood was obtained. Labs show no significant leukocytosis. Mild anemia 10.7. BMP with chloride at 112. LFTs bilirubin and troponin was negative. Lipase normal. Digoxin was unremarkable. Viral panel was negative. CT head and chest x-ray were fairly unremarkable. Patient was asymptomatic while sitting. She was discussed with the hospitalist for further evaluation management treatment with the episodes of syncope and history of V. tach. Consults/Care Managements Discussions: Per [facility] Triage Nursing notes reviewed. Limited review of prior medical records performed Vital Signs: reviewed and remarkable for no significant abnormalities Differential diagnosis: Cardiac ischemia, aortic dissection, pulmonary embolism, pneumothorax, pneumonia, pericarditis, myocarditis, esophageal rupture, GERD, cholecystitis, pancreatitis, musculoskeletal, as well as other pathologies. ER treatment provided: See below Diagnostics interpreted by me include EKG and cardiac monitoring as listed below: -Cardiac Monitoring: An order was placed for continuous cardiac monitoring. The monitor shows a rate of 80 with sinus rhythm. -ECG: Sinus rhythm rate 86 Normal axis No PVCs QTc 440 -Laboratory studies:Interpreted by me as stated above in MDM and shown below. Imaging studies: Xrays: As interpreted by me: Portable AP upright 1 view of the chest shows no focal infiltrate CTs show: CT head was negative Procedures:none Critical Care: None Past Med/Surg History Problem List (Updated 12/20/23 @ 00:07 by Background Daemon) Anemia (Acute) Exertional chest pain (Acute) Syncope (Acute) Elevated brain natriuretic peptide (BNP) level (Acute) Anemia (Acute) Atrial tachycardia, paroxysmal Syncope (Acute) Dyspnea (Acute) Palpitation (Acute) Chest pain (Acute) Cough (Acute) Anemia (Acute) Lab test negative for COVID-19 virus (Acute) Shortness of breath (Acute) PAF (paroxysmal atrial fibrillation) Palpitation (Acute) Sinus tachycardia (Acute) Acute exacerbation of chronic obstructive pulmonary disease (Acute) COVID-19 (Acute) Pneumonia (Acute) Hypokalemia Transaminitis Severe persistent asthma with (acute) exacerbation Cough (Acute) Elevated LFTs (Acute) Breathlessness (Acute) Bronchitis (Acute) Encounter for pre-operative examination MRSA (methicillin resistant Staphylococcus aureus) (Chronic) 1999 dx nose septum wound 2019 dx in lungs Dyslipidemia (Chronic) CHARLES (iron deficiency anemia) (Chronic) ferrous sulfate QID. Hypothyroidism (Chronic) no current medication -- TSH normal without meds. IBS (irritable bowel syndrome) (Chronic) GERD (gastroesophageal reflux disease) (Chronic) Celiac disease (Chronic) Gastroparesis (Chronic) Asthma, severe persistent (Chronic) CYNTHIA (obstructive sleep apnea) (Chronic) NSVT (nonsustained ventricular tachycardia) (Chronic) Hx of cardiac cath (Chronic) "2009 - normal coronaries" History of arthroscopic knee surgery (Chronic) left Hx of cholecystectomy (Chronic) S/P nasal surgery (Chronic) S/P surgery on nasal septum (Chronic) "collapsed septum" s/p post op infection that "ate away the septum" S/P GLENNY-BSO (Chronic) Medical History Elevated LFTs Chronic anemia Dehydration Colitis with rectal bleeding Bloody diarrhea Hypertension Adrenal cyst monitoring Kidney stones no surgery Chronic back pain Degenerative disc disease Osteoarthritis Hx of sepsis ~2017 treated at [facility]. Anxiety Mitral valve prolapse follows with Dr Aguirre Heart disease Narcolepsy Chronic obstructive pulmonary disease Sleep apnea CPAP -- have not used in about a year (it broke and has not yet been fixed) NSVT (nonsustained ventricular tachycardia) Asthma, severe persistent Gastroparesis Celiac disease GERD (gastroesophageal reflux disease) IBS (irritable bowel syndrome) Hypothyroidism no current medication -- TSH normal without meds. CHARLES (iron deficiency anemia) ferrous sulfate QID. Dyslipidemia MRSA (methicillin resistant Staphylococcus aureus) 1999 dx nose septum wound 2019 dx in lungs Surgical History History of esophagogastroduodenoscopy (EGD) History of colonoscopy History of section x1 History of dilatation and curettage History of bilateral tubal ligation S/P GLENNY-BSO S/P surgery on nasal septum "collapsed septum" s/p post op infection that "ate away the septum" S/P nasal surgery Hx of cholecystectomy History of arthroscopic knee surgery left Hx of cardiac cath "2009 - normal coronaries" Family History Other No family history of adverse response to anesthesia Social History Smoking Status: Never smoker Second Hand Exposure: No; Do You Dip or Chew Tobacco: No; Hx Alcohol Use: No Hx Substance Use: No Preferred Language: Japanese Communication Ability: Effective [employer] Required: No Beliefs That Will Affect Care: None marital status: Current Living Situation: Spouse and Family Current Living Situation Comment: and adult son Feels Safe at Home: Yes Assistive Devices: CPAP and Oxygen - at Night Allergies Allergies Allergy/AdvReac Type Severity Reaction Status Date / Time bee venom protein (honey bee) Allergy Severe ANAPHYLAXIS Verified 01/27/24 19:35 coconut Allergy Severe RASH; SOB Verified 01/27/24 19:35 gluten Allergy Severe CELIAC'S Verified 01/27/24 19:35 iron Allergy Severe SOB,TACHY Verified 01/27/24 19:35 WITH IV IRON latex Allergy Severe Anaphylaxis Verified 01/27/24 19:35 Penicillins Allergy Severe Anaphylaxis Verified 01/27/24 19:35 Sulfa (Sulfonamide Allergy Severe Anaphylaxis Verified 01/27/24 19:35 Antibiotics) ROBER Inhibitors Allergy Intermediate RASH/TACHYC Verified 01/27/24 19:35 ARDIA cefaclor Allergy Intermediate CECLOR--RASH/UPSET Verified 01/27/24 19:35 STOMACH egg Allergy Intermediate RASH & Verified 01/27/24 19:35 Bloating Influenza Virus Vaccines Allergy Intermediate rash and Verified 01/27/24 19:35 bloating lactose Allergy Intermediate BLOATING; Verified 01/27/24 19:35 DIARRHEA; VOMITING tetracycline Allergy Intermediate NAUSEA/VOMI Verified 01/27/24 19:35 TING/RASH Quinolones Allergy Unknown ALLERGY TO Verified 01/27/24 19:35 AVELOX ,CAN TAKE CIPRO OR LEVAQUIN W/O RXN Beta-Blockers AdvReac Intermediate intolerance Verified 01/27/24 19:35 (Beta-Adrenergic Bloc as per records Home Meds Home Medications Medication Instructions Recorded Confirmed amitriptyline 75 mg tablet 75 mg PO HS 12/24/20 01/27/24 cimetidine 400 mg tablet 400 mg PO BID 12/24/20 01/27/24 ergocalciferol (vitamin D2) 1,250 1,250 mcg PO WK 12/24/20 01/27/24 mcg (50,000 unit) capsule (Vitamin D2) polyethylene glycol 3350 17 17 g PO QID PRN FOR AT LEAST 1 12/24/20 01/27/24 gram/dose oral powder (Miralax) STOOL DAILY rabeprazole 20 mg tablet,delayed 40 mg PO BID 12/24/20 01/27/24 release sucralfate 1 gram tablet (Carafate) 1 g PO ACHS 12/24/20 01/27/24 topiramate 100 mg tablet (Topamax) 100 mg PO BID 12/24/20 01/27/24 aspirin 81 mg tablet,delayed 81 mg PO QAM 04/06/21 01/27/24 release (Kerwin Low Dose Aspirin) fexofenadine 180 mg tablet 180 mg PO DAILY 05/08/21 01/27/24 levothyroxine 100 mcg tablet 100 mcg PO DAILYBB 05/08/21 01/27/24 montelukast 10 mg tablet 10 mg PO HS 05/08/21 01/27/24 ondansetron 4 mg disintegrating 4 mg translingual Q8H PRN Nausea 05/08/21 01/27/24 tablet azelastine 137 mcg (0.1 %) nasal 1 spray intranasal BID 01/06/23 01/27/24 spray epinephrine 0.3 mg/0.3 mL 0.3 mg IM DIRECTED PRN Allergic 01/06/23 01/27/24 injection, auto-injector (EpiPen) Reaction ferrous sulfate 325 mg (65 mg 325 mg PO QID 01/06/23 01/27/24 iron) tablet fluticasone 250 mcg-salmeterol 50 1 inh inhalation BID 01/06/23 01/27/24 mcg/dose blistr powdr for inhalation (Advair Diskus) ipratropium 20 mcg-albuterol 100 1 puff inhalation QID PRN USE IN 01/06/23 01/27/24 mcg/actuation mist for inhalation PLACE OF XOPENEX IF NEEDED (Combivent Respimat) mometasone 50 mcg/actuation nasal 2 spray intranasal BID 01/06/23 01/27/24 spray multivitamin 1 tab PO DAILY 01/06/23 01/27/24 codeine 10 mg-guaifenesin 100 mg/5 5 ml PO Q4H PRN Cough 01/27/24 01/27/24 mL oral liquid (Guaifenesin AC) hyoscyamine sulfate 0.375 mg 0.375 mg PO Q6H PRN ABD PAIN 01/27/24 01/27/24 tablet,extended release,12 hr triamcinolone acetonide 0.1 % 1 applic topical BID PRN PSORIASIS 01/27/24 01/27/24 topical cream verapamil 80 mg tablet 80 mg PO BID 01/27/24 01/27/24 Results & Data (ED) Vital Signs Vital Signs - 24 hr 01/27/24 16:59 01/27/24 17:38 01/27/24 19:00 Temperature 36.5 C Temperature Source Skin Pulse Rate - Lying Pulse Rate - Sitting Pulse Rate - Standing Pulse Rate 105 H 81 Pulse Rate [Apical] 78 Respiratory Rate 20 18 Respiratory Effort / Characteristics Non-Labored Spontaneous Respiratory Depth Normal Respiratory Pattern Regular Blood Pressure - Lying Blood Pressure - Sitting Blood Pressure- Standing Blood Pressure 145/92 H Blood Pressure [Right Arm] 129/80 Blood Pressure Mean 109 Blood Pressure Mean [Right Arm] 96 Blood Pressure Position Sitting Pulse Oximetry 97 96 Oxygen Delivery Method Room Air Room Air Sepsis Recent Fever Within 48 Hours No Sepsis New/Unexplained Change in Mental Status N/A Sepsis Action Taken by Nursing No Action Required 01/27/24 20:15 Temperature Temperature Source Pulse Rate - Lying 103 H Pulse Rate - Sitting 117 H Pulse Rate - Standing 127 H Pulse Rate Pulse Rate [Apical] Respiratory Rate Respiratory Effort / Characteristics Respiratory Depth Respiratory Pattern Blood Pressure - Lying 155/76 H Blood Pressure - Sitting 172/107 H Blood Pressure- Standing 178/111 H Blood Pressure Blood Pressure [Right Arm] Blood Pressure Mean Blood Pressure Mean [Right Arm] Blood Pressure Position Pulse Oximetry Oxygen Delivery Method Sepsis Recent Fever Within 48 Hours Sepsis New/Unexplained Change in Mental Status Sepsis Action Taken by Nursing Laboratory Data 01/27/24 20:23 01/27/24 17:18 Lab Results 01/27/24 01/27/24 Range/Units 17:18 17:19 WBC 6.37 (4.8-10.8) K/ul RBC 4.02 L (4.20-5.40) M/uL Hgb 10.3 L (12.0-16.0) g/dl Hct 34.9 L (37.0-47.0) % MCV 86.8 (80.0-100.0) fL MCH 25.6 (25.0-34.0) pg MCHC 29.5 L (32.0-36.0) g/dL RDW Std Deviation 66.7 H (36.4-46.3) fL RDW Coeff of Reginaldo 20.7 H (11.5-14.5) % Plt Count 350 (130-400) K/uL MPV 10.6 (9.4-12.4) fL Immature Gran % (Auto) 0.2 % Neut % (Auto) 66.4 % Lymph % (Auto) 25.0 % Calvert % (Auto) 6.6 % Eos % (Auto) 1.3 % Baso % (Auto) 0.5 % Neut # (Auto) 4.24 (1.40-6.50) K/uL Lymph # (Auto) 1.59 (1.20-3.40) K/uL Calvert # (Auto) 0.42 (0.11-0.59) K/uL Eos # (Auto) 0.08 (0.00-0.50) K/uL Baso # (Auto) 0.03 (0.00-0.20) K/uL Immature Gran # (Auto) 0.01 (0.01-0.20) K/uL Anisocytosis Present APTT 24 (21-31) Seconds PTT Ratio 0.9 Sodium 142 (136-145) mmol/L Potassium 3.6 (3.5-5.1) mmol/L Chloride 112 H (98-107) mmol/L Carbon Dioxide 22 (21-32) mmol/L Anion Gap 8 (3-11) BUN 16 (6-23) mg/dl Creatinine 0.70 (0.6-1.2) mg/dl Est Cr Clr Drug Dosing 74.2 ml/min Est GFR ( Amer) 107.6 ml/min Est GFR (Non-Af Amer) 92.9 ml/min BUN/Creatinine Ratio 22.9 H (10-20) Glucose 94 (70-99(Fasting)) mg/dl Calcium 9.1 (8.6-10.3) mg/dl Magnesium 1.9 (1.7-2.4) mg/dl Total Bilirubin 0.1 L (0.2-1.0) mg/dl AST 17 (13-39) U/L ALT 14 (7-52) U/L Alkaline Phosphatase 70 (34-104) U/L Troponin I High Sens 5.2 (0-14) pg/ml Total Protein 6.1 (6.0-8.3) gm/dl Albumin 3.6 (3.4-5.0) gm/dl Globulin 2.5 (2.5-4.0) gm/dl Albumin/Globulin Ratio 1.4 (0.9-2) Lipase 20 (11-82) U/L Digoxin < 0.3 L (0.8-2.0) ng/ml Blood Type A Positive Antibody Screen POSITIVE A Administered Medications Potassium Chloride/Sodium Chloride (Normal Saline W/20 Meq Kcl) 20 meq in 1,000 mls @ 100 mls/hr IV .Q10H ONE; Protocol Stop: 01/28/24 05:42 Last Admin: 01/27/24 20:11 Dose: 100 mls/hr Documented By: DEEP Magnesium Sulfate/Dextrose (Magnesium Sulfate / D5w) 1 gm in 100 mls @ 50 mls/hr IV ONE ONE Stop: 01/27/24 22:59 Last Admin: 01/27/24 22:01 Dose: 50 mls/hr Documented By: DEION Pantoprazole Sodium 40 mg/ (Syringe) 10 mls @ 5 mls/min IV BID JAYSHREE Stop: 02/26/24 21:59 Last Admin: 01/27/24 21:57 Dose: 5 mls/min Documented By: DEION Discontinued Medications Pantoprazole Sodium 80 mg/ (Dextrose) 120 mls @ 480 mls/hr IV ONE STA Stop: 01/27/24 20:32 Last Infusion: 01/27/24 21:22 Dose: Infused Documented By: Admin: 01/27/24 20:39 Dose: 480 mls/hr Documented By: DEEP Acetaminophen (Ofirmev) 1,000 mg in 100 mls @ 400 mls/hr IV NOW STA Stop: 01/27/24 20:32 Last Infusion: 01/27/24 20:39 Dose: Infused Documented By: Admin: 01/27/24 20:24 Dose: 400 mls/hr Documented By: DEEP Ioversol (Optiray 320 125ml) 119 ml IV ONCE ONE Stop: 01/27/24 21:04 Last Admin: 01/27/24 21:04 Dose: 119 ml Documented By: REGINA Ondansetron HCl (Ondansetron Inj 2 Mg/Ml 2 Ml Vial) 4 mg IV NOW STA Stop: 01/27/24 20:07 Last Admin: 01/27/24 20:12 Dose: 4 mg Documented By: [facility] Imaging Data Radiologist's Impression: Chest X-Ray 01/27/24 17:10 XR chest 1V portable HISTORY: 63 years-old Female Chest pain, nonspecific COMPARISON: 11/16/2023 TECHNIQUE: AP view the chest FINDINGS: Right IJ Tmorwe-t-Tcxr catheter appears unchanged. Cardiac silhouette is mildly enlarged. No pneumothorax or pleural effusion. Cervical spinal fusion hardware. Bones appear grossly intact. IMPRESSION: No acute process. ACT 112: Negative or not required by law. The above report was generated using voice recognition software. It may contain grammatical, syntax or spelling errors. Electronically signed by: Andrez Foster M.D. 01/27/2024 5:[address] 01/27/24 17:24 Exam(s): CT HEAD Without Contrast EXAM: CT Head Without Intravenous Contrast CLINICAL HISTORY: Reason for exam: gannon. TECHNIQUE: Axial computed tomography images of the head/brain without intravenous contrast. CTDI is 35.72 mGy and DLP is 547.75 mGy-cm. Automated exposure control was utilized for the study. A dose lowering technique was utilized adhering to the principles of ALARA. COMPARISON: CT head on 08/24/2023 FINDINGS: Brain: No acute infarct or hemorrhage identified. No extra-axial fluid collection. No mass effect or midline shift. Scattered areas of hypoattenuation in the supratentorial white matter likely represent chronic small vessel ischemic changes. Ventricles and sulci: Prominence of the ventricles and sulci is likely secondary to cerebral volume loss. Bones: Normal. No bony lesion or acute fracture. Subcutaneous tissues: Normal. Sinuses: Normal. No air-fluid levels or mucosal thickening. Mastoid air cells: Normal. Orbits: Grossly unremarkable. Other: Atherosclerotic calcifications in the intracranial vasculature. IMPRESSION: 1. No acute intracranial abnormality. 2. Mild chronic small vessel ischemic changes and cerebral volume loss. Electronically signed by: Steffany Syed M.D. 01/27/24 20:20 PM Discharge Plan Visit Data Chief Complaint: Syncope Stated Complaint: SYNOCOPE, VOMITING BLOOD, HEART RACING ED Provider: Charles Siddiqui Discharge Problem: Syncope, Exertional chest pain, Anemia Patient Disposition: Admitted As Inpatient Discharge Instructions Interventions: ED Discharge Assessment Last Done: 01/27/24 21:23 Discharge Problem: Syncope Qualifiers: Syncope type: unspecified Qualified Code(s): R55 - Syncope and collapse Anemia Qualifiers: Anemia type: unspecified type Qualified Code(s): D64.9 - Anemia, unspecified
[2024-01-27 17:35] LABS: Basophils # (auto) 0.03 K/uL (0.00-0.20); Basophils % (auto) 0.5 %; Eosinophils # (auto) 0.08 K/uL (0.00-0.50); Eosinophils % (auto) 1.3 %; Hematocrit (blood only) 34.9 % (37.0-47.0); Hemoglobin 10.3 g/dl (12.0-16.0); Immature Granulocytes # (auto) 0.01 K/uL (0.01-0.20); Immature Granulocytes % (auto) 0.2 %; Lymphocytes # (auto) 1.59 K/uL (1.20-3.40); Mean Corpuscular Hemoglobin 25.6 pg (25.0-34.0); Mean Corpuscular Hgb Conc 29.5 g/dL (32.0-36.0); Mean Corpuscular Volume 86.8 fL (80.0-100.0); Mean Platelet Volume 10.6 fL (9.4-12.4); Monocytes # (auto) 0.42 K/uL (0.11-0.59); Monocytes % (auto) 6.6 %; Neutrophils # (auto) 4.24 K/uL (1.40-6.50); Neutrophils % (auto) 66.4 %; Platelet Count 350 K/uL (130-400); RDW Coefficient of Variation 20.7 % (11.5-14.5); RDW Standard Deviation 66.7 fL (36.4-46.3); Red Blood Count 4.02 M/uL (4.20-5.40); White Blood Count 6.37 K/ul (4.8-10.8)
--- NOTE | 2024-01-27 17:39 | XRay Report ---
XR chest 1V portable HISTORY: 63 years-old Female Chest pain, nonspecific COMPARISON: 11/16/2023 TECHNIQUE: AP view the chest FINDINGS: Right IJ Hmtuhh-s-Dqtx catheter appears unchanged. Cardiac silhouette is mildly enlarged. No pneumoth orax or pleural effusion. Cervical spinal fusion hardware. Bones appear grossly intact. IMPRESSION: No acute process. ACT 112: Negative or not required by law. The above report was generated using voice recognition software. It may contain grammatical, syntax o r spelling errors. Electronically signed by: Andrez Foster M.D. 01/27/2024 5:38 PM
[2024-01-27 17:48] LABS: Albumin Globulin Ratio 1.4 (0.9-2); Albumin Level 3.6 gm/dl (3.4-5.0); BUN Creatinine Ratio 22.9 (10-20); Bilirubin,Total 0.1 mg/dl (0.2-1.0); Calcium 9.1 mg/dl (8.6-10.3); Creatinine Clr Calc Pharmacy 74.2 ml/min; Est GFR (African American) 107.6 ml/min; Est GFR (Non-African American) 92.9 ml/min; Globulin 2.5 gm/dl (2.5-4.0); Potassium 3.6 mmol/L (3.5-5.1); Total Protein 6.1 gm/dl (6.0-8.3)
[2024-01-27 17:52] LABS: Anisocytosis Present
[2024-01-27 17:54] LABS: Troponin I High Sensitivity 5.2 pg/ml (0-14)
[2024-01-27] MEDS: NSS + 20MEQ KCL 20 MEQ/1,000 ML BAG IV ONE (20:11)
[2024-01-27] MEDS: ONDANSETRON INJ 2 MG/ML 2 ML VIAL IV STA (20:12)
--- NOTE | 2024-01-27 20:19 | History & Physical Report ---
Date of Service January 27, 2024 Assessment & Plan (1) Syncope: Plan: Possible orthostasis given low BP from last admission Rule out blood loss from possible UGIB given coffee-ground emesis, hx GERD/PUD as per records Patient hemoglobin currently stable. Coffee-ground emesis possibly from iron ingestion given negative FOBT done at the ER Rule out malignant arrhythmia given history of VT/idiopathic cardiac arrest paroxysmal A-fib, patient NSR off anticoagulation secondary to recurrent anemia, history of celiac disease asthma/COPD/CYNTHIA on CPAP, not in acute exacerbation hypertension, BP on the lower side hyperlipidemia, statin intolerance irritable bowel syndrome hypothyroidism, euthyroid as of recent TSH Munchausen syndrome as per records OBS Medical telemetry Check orthostatic vitals Initiate midodrine if BP low IV PPI for UGIB Follow H&H, transfuse PRBC if hemoglobin less than 7 and or for symptomatic anemia Hemoccult all stools until positive GI consult if with significant H&H drop/additional evidence of GI bleed N.p.o. interim DVT prophylaxis SCDs re: possible GI bleed Full code Text document was generated using [employer] voice recognition software. It may contain grammatical or spelling errors. Kindly contact undersigned for clarification of any documentation item in question. History of Present Illness Chief Complaint: Recurrent syncope Primary Care Provider: Vicki Watson MD History obtained from patient and records. Medical history is significant for paroxysmal A-fib off anticoagulation secondary to recurrent anemia, history of VT as per records, asthma/COPD/CYNTHIA on CPAP, history of idiopathic cardiac arrest, paroxysmal atrial tachycardia, hypertension, hyperlipidemia, statin intolerance, celiac disease, GERD, PUD, irritable bowel syndrome, hypothyroidism, chronic anemia (baseline hemoglobin 9), Munchausen syndrome as per records, migraine, endometriosis, history MRSA. Last confinement November 2023 for recurrent syncope attributed to symptomatic anemia. Orthostatic vitals negative. Cardiology added digoxin for A-fib rate control. Anticoagulation deferred due to anemia. Outpatient endoscopy scheduled April 2024. Patient with recurrent syncopal events since last week. Total of 6 episodes usually related to change in position as per patient. Dry cough symptoms with achy chest pain and SOB. Coffee-ground emesis with some abdominal discomfort. Patient not sure if emesis from iron tablets. No melena or hematochezia. No fluid retention. No witnessed seizures, tongue biting, or incontinence. Headache from possible migraine. Appetite not too good. MEDICAL HISTORY: As above. 2014 EGD duodenal inflammation consistent with celiac disease, stricture SURGICAL HISTORY: TAHBSO, cholecystectomy, appendectomy, ankle surgery, knee surgery, nasal reconstruction, sinus surgery, finger tendon sheath surgery, spine surgery FAMILY HISTORY: Family history of unknown. Patient is adopted. PERSONAL/SOCIAL HISTORY: Nonsmoker. No chronic ETOH intake. 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 Allergies Allergy/AdvReac Type Severity Reaction Status Date / Time bee venom protein (honey bee) Allergy Severe ANAPHYLAXIS Verified 01/27/24 19:35 coconut Allergy Severe RASH; SOB Verified 01/27/24 19:35 gluten Allergy Severe CELIAC'S Verified 01/27/24 19:35 iron Allergy Severe SOB,TACHY Verified 01/27/24 19:35 WITH IV IRON latex Allergy Severe Anaphylaxis Verified 01/27/24 19:35 Penicillins Allergy Severe Anaphylaxis Verified 01/27/24 19:35 Sulfa (Sulfonamide Allergy Severe Anaphylaxis Verified 01/27/24 19:35 Antibiotics) ROBER Inhibitors Allergy Intermediate RASH/TACHYC Verified 01/27/24 19:35 ARDIA cefaclor Allergy Intermediate CECLOR--RASH/UPSET Verified 01/27/24 19:35 STOMACH egg Allergy Intermediate RASH & Verified 01/27/24 19:35 Bloating Influenza Virus Vaccines Allergy Intermediate rash and Verified 01/27/24 19:35 bloating lactose Allergy Intermediate BLOATING; Verified 01/27/24 19:35 DIARRHEA; VOMITING tetracycline Allergy Intermediate NAUSEA/VOMI Verified 01/27/24 19:35 TING/RASH Quinolones Allergy Unknown ALLERGY TO Verified 01/27/24 19:35 AVELOX ,CAN TAKE CIPRO OR LEVAQUIN W/O RXN Beta-Blockers AdvReac Intermediate intolerance Verified 01/27/24 19:35 (Beta-Adrenergic Bloc as per records Home Medications Medication Instructions Recorded Confirmed Type amitriptyline 75 mg tablet 75 mg PO HS 12/24/20 01/27/24 History cimetidine 400 mg tablet 400 mg PO BID 12/24/20 01/27/24 History ergocalciferol (vitamin D2) 1,250 1,250 mcg PO WK 12/24/20 01/27/24 History mcg (50,000 unit) capsule (Vitamin D2) polyethylene glycol 3350 17 17 g PO QID PRN FOR AT LEAST 1 12/24/20 01/27/24 History gram/dose oral powder (Miralax) STOOL DAILY rabeprazole 20 mg tablet,delayed 40 mg PO BID 12/24/20 01/27/24 History release sucralfate 1 gram tablet (Carafate) 1 g PO ACHS 12/24/20 01/27/24 History topiramate 100 mg tablet (Topamax) 100 mg PO BID 12/24/20 01/27/24 History aspirin 81 mg tablet,delayed 81 mg PO QAM 04/06/21 01/27/24 History release (Kerwin Low Dose Aspirin) fexofenadine 180 mg tablet 180 mg PO DAILY 05/08/21 01/27/24 History levothyroxine 100 mcg tablet 100 mcg PO DAILYBB 05/08/21 01/27/24 History montelukast 10 mg tablet 10 mg PO HS 05/08/21 01/27/24 History ondansetron 4 mg disintegrating 4 mg translingual Q8H PRN Nausea 05/08/21 01/27/24 History tablet azelastine 137 mcg (0.1 %) nasal 1 spray intranasal BID 01/06/23 01/27/24 History spray epinephrine 0.3 mg/0.3 mL 0.3 mg IM DIRECTED PRN Allergic 01/06/23 01/27/24 History injection, auto-injector (EpiPen) Reaction ferrous sulfate 325 mg (65 mg 325 mg PO QID 01/06/23 01/27/24 History iron) tablet fluticasone 250 mcg-salmeterol 50 1 inh inhalation BID 01/06/23 01/27/24 History mcg/dose blistr powdr for inhalation (Advair Diskus) ipratropium 20 mcg-albuterol 100 1 puff inhalation QID PRN USE IN 01/06/23 01/27/24 History mcg/actuation mist for inhalation PLACE OF XOPENEX IF NEEDED (Combivent Respimat) mometasone 50 mcg/actuation nasal 2 spray intranasal BID 01/06/23 01/27/24 History spray multivitamin 1 tab PO DAILY 01/06/23 01/27/24 History codeine 10 mg-guaifenesin 100 mg/5 5 ml PO Q4H PRN Cough 01/27/24 01/27/24 History mL oral liquid (Guaifenesin AC) hyoscyamine sulfate 0.375 mg 0.375 mg PO Q6H PRN ABD PAIN 01/27/24 01/27/24 History tablet,extended release,12 hr triamcinolone acetonide 0.1 % 1 applic topical BID PRN PSORIASIS 01/27/24 01/27/24 History topical cream verapamil 80 mg tablet 80 mg PO BID 01/27/24 01/27/24 History Past Med/Surg History Problem List (Updated 12/20/23 @ 00:07 by Kendell Morris) Anemia (Acute) Exertional chest pain (Acute) Syncope (Acute) Elevated brain natriuretic peptide (BNP) level (Acute) Anemia (Acute) Atrial tachycardia, paroxysmal Syncope (Acute) Dyspnea (Acute) Palpitation (Acute) Chest pain (Acute) Cough (Acute) Anemia (Acute) Lab test negative for COVID-19 virus (Acute) Shortness of breath (Acute) PAF (paroxysmal atrial fibrillation) Palpitation (Acute) Sinus tachycardia (Acute) Acute exacerbation of chronic obstructive pulmonary disease (Acute) COVID-19 (Acute) Pneumonia (Acute) Hypokalemia Transaminitis Severe persistent asthma with (acute) exacerbation Cough (Acute) Elevated LFTs (Acute) Breathlessness (Acute) Bronchitis (Acute) Encounter for pre-operative examination MRSA (methicillin resistant Staphylococcus aureus) (Chronic) 1999 dx nose septum wound 2019 dx in lungs Dyslipidemia (Chronic) CHARLES (iron deficiency anemia) (Chronic) ferrous sulfate QID. Hypothyroidism (Chronic) no current medication -- TSH normal without meds. IBS (irritable bowel syndrome) (Chronic) GERD (gastroesophageal reflux disease) (Chronic) Celiac disease (Chronic) Gastroparesis (Chronic) Asthma, severe persistent (Chronic) CYNTHIA (obstructive sleep apnea) (Chronic) NSVT (nonsustained ventricular tachycardia) (Chronic) Hx of cardiac cath (Chronic) "2009 - normal coronaries" History of arthroscopic knee surgery (Chronic) left Hx of cholecystectomy (Chronic) S/P nasal surgery (Chronic) S/P surgery on nasal septum (Chronic) "collapsed septum" s/p post op infection that "ate away the septum" S/P GLENNY-BSO (Chronic) Medical History Elevated LFTs Chronic anemia Dehydration Colitis with rectal bleeding Bloody diarrhea Hypertension Adrenal cyst monitoring Kidney stones no surgery Chronic back pain Degenerative disc disease Osteoarthritis Hx of sepsis ~2017 treated at [facility]. Anxiety Mitral valve prolapse follows with Dr Aguirre Heart disease Narcolepsy Chronic obstructive pulmonary disease Sleep apnea CPAP -- have not used in about a year (it broke and has not yet been fixed) NSVT (nonsustained ventricular tachycardia) Asthma, severe persistent Gastroparesis Celiac disease GERD (gastroesophageal reflux disease) IBS (irritable bowel syndrome) Hypothyroidism no current medication -- TSH normal without meds. CHARLES (iron deficiency anemia) ferrous sulfate QID. Dyslipidemia MRSA (methicillin resistant Staphylococcus aureus) 1999 dx nose septum wound 2019 dx in lungs Surgical History History of esophagogastroduodenoscopy (EGD) History of colonoscopy History of section x1 History of dilatation and curettage History of bilateral tubal ligation S/P GLENNY-BSO S/P surgery on nasal septum "collapsed septum" s/p post op infection that "ate away the septum" S/P nasal surgery Hx of cholecystectomy History of arthroscopic knee surgery left Hx of cardiac cath "2009 - normal coronaries" Family History Other No family history of adverse response to anesthesia Social History Smoking Status: Never smoker Second Hand Exposure: No; Do You Dip or Chew Tobacco: No; Tobacco Cessation Education Requested by Patient: No Hx Alcohol Use: No Hx Substance Use: No Preferred Language: Italian Communication Ability: Effective 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 Beliefs That Will Affect Care: None marital status: Current Living Situation: Spouse and Family Current Living Situation Comment: and adult son Other Information That Helps Us Care for You: No Feels Safe at Home: Yes Safety Concerns: Feels Safe At This Time Assistive Devices: Denture - Upper and Glasses Review of Systems Review of Systems: As per HPI, all other systems reviewed and negative Physical Exam Physical Exam: GENERAL: Comfortable, incessant dry cough, no respiratory distress SKIN: Pallor, warm HEENT: Pale palpebral conjunctivae, no ptosis, dry buccal mucosa NECK : Supple, no tenderness CHEST : Decreased breath sounds, no tenderness HEART : RRR, no obvious murmurs ABDOMEN: Some distention, minimal epigastric tenderness RECTAL : Intact sphincter, yellow stool (FOBT negative) EXTREMITIES : Minimal LE swelling, no LE tenderness, no other conspicuous deformities noted NEUROLOGIC : Coherent, no facial asymmetry, no other gross focality Results & Data Results & Data Vital Signs (Past 12 Hours) Vital Signs Temp Pulse Pulse Resp BP BP Pulse Ox 01/27/24 19:00 78 18 129/80 96 01/27/24 17:38 81 01/27/24 16:59 36.5 C 105 H 20 145/92 H 97 O2 Del Method 01/27/24 19:00 Room Air 01/27/24 17:38 01/27/24 16:59 Room Air Laboratory Results Laboratory Results WBC 6.37 K/ul (4.8-10.8) 01/27/24 17:18 RBC 4.02 M/uL (4.20-5.40) L 01/27/24 17:18 Hgb 10.3 g/dl (12.0-16.0) L 01/27/24 17:18 Hct 34.9 % (37.0-47.0) L 01/27/24 17:18 MCV 86.8 fL (80.0-100.0) 01/27/24 17:18 MCH 25.6 pg (25.0-34.0) 01/27/24 17:18 MCHC 29.5 g/dL (32.0-36.0) L 01/27/24 17:18 RDW Std Deviation 66.7 fL (36.4-46.3) H 01/27/24 17:18 RDW Coeff of Reginaldo 20.7 % (11.5-14.5) H 01/27/24 17:18 Plt Count 350 K/uL (130-400) 01/27/24 17:18 MPV 10.6 fL (9.4-12.4) 01/27/24 17:18 Immature Gran % (Auto) 0.2 % 01/27/24 17:18 Neut % (Auto) 66.4 % 01/27/24 17:18 Lymph % (Auto) 25.0 % 01/27/24 17:18 [place] % (Auto) 6.6 % 01/27/24 17:18 Eos % (Auto) 1.3 % 01/27/24 17:18 Baso % (Auto) 0.5 % 01/27/24 17:18 Neut # (Auto) 4.24 K/uL (1.40-6.50) 01/27/24 17:18 Lymph # (Auto) 1.59 K/uL (1.20-3.40) 01/27/24 17:18 [place] # (Auto) 0.42 K/uL (0.11-0.59) 01/27/24 17:18 Eos # (Auto) 0.08 K/uL (0.00-0.50) 01/27/24 17:18 Baso # (Auto) 0.03 K/uL (0.00-0.20) 01/27/24 17:18 Immature Gran # (Auto) 0.01 K/uL (0.01-0.20) 01/27/24 17:18 Anisocytosis Present 01/27/24 17:18 Sodium 142 mmol/L (136-145) 01/27/24 17:18 Potassium 3.6 mmol/L (3.5-5.1) 01/27/24 17:18 Chloride 112 mmol/L (98-107) H 01/27/24 17:18 Carbon Dioxide 22 mmol/L (21-32) 01/27/24 17:18 Anion Gap 8 (3-11) 01/27/24 17:18 BUN 16 mg/dl (6-23) 01/27/24 17:18 Creatinine 0.70 mg/dl (0.6-1.2) 01/27/24 17:18 Est Cr Clr Drug Dosing 74.2 ml/min 01/27/24 17:18 Est GFR ( Amer) 107.6 ml/min 01/27/24 17:18 Est GFR (Non-Af Amer) 92.9 ml/min 01/27/24 17:18 BUN/Creatinine Ratio 22.9 (10-20) H 01/27/24 17:18 Glucose 94 mg/dl (70-99(Fasting)) 01/27/24 17:18 Calcium 9.1 mg/dl (8.6-10.3) 01/27/24 17:18 Total Bilirubin 0.1 mg/dl (0.2-1.0) L 01/27/24 17:18 AST 17 U/L (13-39) 01/27/24 17:18 ALT 14 U/L (7-52) 01/27/24 17:18 Alkaline Phosphatase 70 U/L (34-104) 01/27/24 17:18 Troponin I High Sens 5.2 pg/ml (0-14) 01/27/24 17:18 Total Protein 6.1 gm/dl (6.0-8.3) 01/27/24 17:18 Albumin 3.6 gm/dl (3.4-5.0) 01/27/24 17:18 Globulin 2.5 gm/dl (2.5-4.0) 01/27/24 17:18 Albumin/Globulin Ratio 1.4 (0.9-2) 01/27/24 17:18 Lipase 20 U/L (11-82) 01/27/24 17:18 Digoxin < 0.3 ng/ml (0.8-2.0) L 01/27/24 17:19 Impressions Chest X-Ray 01/27/24 17:10 XR chest 1V portable HISTORY: 63 years-old Female Chest pain, nonspecific COMPARISON: 11/16/2023 TECHNIQUE: AP view the chest FINDINGS: Right IJ [id number] catheter appears unchanged. Cardiac silhouette is mildly enlarged. No pneumothorax or pleural effusion. Cervical spinal fusion hardware. Bones appear grossly intact. IMPRESSION: No acute process. ACT 112: Negative or not required by law. The above report was generated using voice recognition software. It may contain grammatical, syntax or spelling errors. Electronically signed by: Andrez Foster M.D. 01/27/2024 5:[address] head: 1. No acute intracranial abnormality. 2. Mild chronic small vessel ischemic changes and cerebral volume loss. Chest CTA: No acute pulmonary embolus. CT abdomen pelvis: Diverticulosis, without acute diverticulitis. No small bowel obstruction. No free intraperitoneal air. Diagnostic Findings EKG as per my interpretation :Rate 85, NSR, LAD, LAFB, nonspecific T wave abnormalities (1) Syncope Syncope type: unspecified Qualified Code(s): R55 - Syncope and collapse
--- NOTE | 2024-01-27 20:21 | CT Scan Report ---
Exam(s): CT HEAD Without Contrast EXAM: CT Head Without Intravenous Contrast CLINICAL HISTORY: Reason for exam: gannon. TECHNIQUE: Axial computed tomography images of the head/brain without intravenous contrast. CTDI is 35.72 mGy and DLP is 547.75 mGy-cm. Automated exposure control was utilized for the study. A dose lowering technique was utilized adhering to the principles of ALARA. COMPARISON: CT head on 08/24/2023 FINDINGS: Brain: No acute infarct or hemorrhage identified. No extra-axial fluid collection. No mass effect or midline shift. Scattered areas of hypoattenuation in the supratentorial white matter likely represent chronic small vessel ischemic changes. Ventricles and sulci: Prominence of the ventricles and sulci is likely secondary to cerebral volume loss. Bones: Normal. No bony lesion or acute fracture. Subcutaneous tissues: Normal. Sinuses: Normal. No air-fluid levels or mucosal thickening. Mastoid air cells: Normal. Orbits: Grossly unremarkable. Other: Atherosclerotic calcifications in the intracranial vasculature. IMPRESSION: 1. No acute intracranial abnormality. 2. Mild chronic small vessel ischemic changes and cerebral volume loss. Electronically signed by: Steffany Syed M.D. 01/27/24 20:20 PM
[2024-01-27] MEDS ORDERED: hydrOXYzine HCl 10 MG TAB PO PRN (20:24)
[2024-01-27] MEDS: ACETAMINOPHEN 1,000 MG/100 ML VIAL IV STA (20:24)
[2024-01-27 20:33] LABS: Magnesium 1.9 mg/dl (1.7-2.4)
[2024-01-27] MEDS: PANTOprazole 80 MG in DEXTROSE 5% 100 ML IV STA (20:39)
[2024-01-27 20:47] LABS: Hematocrit (blood only) 35.4 % (37.0-47.0); Hemoglobin 10.7 g/dl (12.0-16.0)
[2024-01-27 20:54] LABS: Partial Thromboplastin Ratio 0.9; Partial Thromboplastin Time 24 Seconds (21-31)
[2024-01-27] MEDS: OPTIRAY 320 125ml IV ONE (21:04)
[2024-01-27 21:42] LABS: Adenovirus PCR Not Detected (NotDetected); Bordetella parapertussis PCR Not Detected (NotDetected); Bordetella pertussis PCR Not Detected (NotDetected); Chlamydia pneumoniae PCR Not Detected (NotDetected); Coronavirus 229E PCR Not Detected (NotDetected); Coronavirus CoV-2 (COVID19)PCR Not Detected (NotDetected); Coronavirus HKU1 PCR Not Detected (NotDetected); Coronavirus NL63 PCR Not Detected (NotDetected); Coronavirus OC43PCR Not Detected (NotDetected); Human Metapneumovirus PCR Not Detected (NotDetected); Influenza A PCR Not Detected (NotDetected); Influenza B PCR Not Detected (NotDetected); Mycoplasma pneumoniae PCR Not Detected (NotDetected); Parainfluenza Virus 1 PCR Not Detected (NotDetected); Parainfluenza Virus 2 PCR Not Detected (NotDetected); Parainfluenza Virus 3 PCR Not Detected (NotDetected); Parainfluenza Virus 4 PCR Not Detected (NotDetected); Respiratory Syncytial VirusPCR Not Detected (NotDetected); Rhinovirus/Enterovirus PCR Not Detected (NotDetected)
[2024-01-27] MEDS ORDERED: IPRATROPIUM BROMIDE/ALBUTEROL respimat INH INH PRN (21:48)
[2024-01-27] MEDS ORDERED: TRIAMCINOLONE ACET 0.1% CR 15 GM TUBE TOP PRN (21:48)
[2024-01-27] MEDS: PANTOprazole 40 MG in SYRINGE 0 ML IV SCH (21:57)
[2024-01-27] MEDS ORDERED: ALBUTEROL HFA 8 GM INHALER INH PRN (21:58)
[2024-01-27] MEDS ORDERED: IPRATROPIUM BROMIDE HFA INHALER INH PRN (21:58)
[2024-01-27] MEDS: MAGNESIUM SULFATE / D5W 1 GM/100 ML BAG IV ONE (22:01)
[2024-01-27 22:21] LABS: Appearance Urine Clear (Clear); Bilirubin Urine Negative (Negative); Blood Urine Negative (Negative); Color Urine Yellow; Glucose Urine UA Negative (Negative); Ketones Urine Trace (Negative); Leukocyte Esterase Urine Negative (Negative); Nitrite Urine Negative (Negative); Protein Urine Negative (Negative); Specific Gravity Urine 1.025 (1.000-1.030); Urobilinogen Urine Negative (Negative)
[2024-01-27] MEDS: VERAPAMIL HCL 40 MG TAB PO SCH (23:24)
[2024-01-27] MEDS: TOPIRAMATE 100 MG TAB PO SCH (23:24)
[2024-01-27] MEDS: AMITRIPTYLINE HCL 25 MG TAB PO SCH (23:25)
[2024-01-27] MEDS: MONTELUKAST SODIUM 10 MG TABLET PO SCH (23:25)
[2024-01-27] MEDS: SUCRALFATE 1 GM TAB PO SCH (23:25)
[2024-01-27] MEDS: D5NSS + 20MEQ KCL 20 MEQ/1,000 ML BAG IV SCH (23:26)
[2024-01-27] MEDS: AZELASTINE HCL 0.1% NASAL 200 SPRAYS/27,400 MCG BTL SCH (23:26)
--- OUTSIDE RECORDS SUMMARY | 2024-01-27 23:39 | External Medical Summary | Summary of Care ---
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 Name Role Phone Unavailable Primary Care Provider Unavailabl e Encounter Details Date Type Department Care Team (Late st Contact Info) Description 11/17/2023 Telephone Cardiology, [facility] [address] [place] [address] Anna Nesbitt CRNP [address] [facility] [address] Allergies Active Allergy Reactions Criticality Noted Date [...] as of this encounter (statuses as of 11/25/2023) Medications Medication Sig Dispensed Refills Start Date End Date Status MULTIVITAMINS PO TABS 1 TABLET DAILY 04/17/20 10 Active MIRALAX PO POWD 1 Cap full in juice up to 4 times a day to effect 1 stool per day 1 Bottle 3 04/17/20 10 Active ASPIRIN EC 81 MG PO TBEC Take one pill daily 01/27/20 12 Active FERROUS SULFATE 325 (65 FE) MG PO TABSIndications:Iron deficiency anemia One pill by mouth 4 times a day 09/14/19 13 Active Mometasone Furoate (NASONEX) 50 MCG/ACT nasal sprayIndications:Kishore rgic rhinitis,Chronic sinusitis Administer 2 Sprays into each nostril 2 times a day. 2 Inhaler 1 06/06/20 15 Active Azelastine HCl (ASTELIN) 0.1 % nasal sprayIndications:Kishore rgic rhinitis Administer 1 [place] into nostril 2 times a day. 3 Bottle 3 06/05/20 15 Active oxygen GASIndications:Hypoxe ant 1 LPM bled through CPAP 4 cwp during hours of sleep (10 hours per day) 1 Each 0 11/08/19 16 Active montelukast (SINGULAIR) 10 MG TabletIndications:Ast hma, severe persistent TAKE ONE TABLET BY MOUTH ONE TIME DAILY 90 Tab 1 07/09/19 17 Active levothyroxine (LEVOXYL) 100 MCG TabletIndications:Hyp othyroidism TAKE ONE TABLET BY MOUTH EVERY DAY 90 Tab 1 06/15/20 17 Active Vitamin D (Ergocalciferol) 1.25 MG (01138 UT) Oral Capsule Take 1 Cap by mouth once a week. 8 Cap 11/19/19 21 Active Amitriptyline HCl 75 MG Oral Tablet (Elavil)Indications:M igraine without aura TAKE ONE TABLET BY MOUTH NIGHTLY AT BEDTIME 90 Tablet 3 08/08/19 22 Active Fluticasone-Salmetero l 250-50 MCG/DOSE Inhalation Aerosol Powder Breath Activated (Advair Diskus) Inhale by mouth 1 Puff in the morning AND 1 Puff before bedtime. 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 1 Each 1 11/07/19 22 Active Triamcinolone Acetonide 0.1 % External Cream (Aristocort)Indicatio ns:Intrinsic eczema Apply to elbows and knees and hairline for psoriasis twice a day 80 g 5 12/24/19 22 Active Topiramate 100 MG Oral Tablet (topAMAX)Indications: Migraine without aura Take by mouth 1 Tablet in the morning AND 1 Tablet before bedtime. 180 Tablet 3 03/02/20 22 Active Cimetidine 400 MG Oral Tablet (Tagamet)Indications: Gastroesophageal reflux disease with esophagitis Take by mouth 1 Tablet in the morning AND 1 Tablet before bedtime. 180 Tablet 1 03/02/20 22 Active Hyoscyamine Sulfate ER 0.375 MG Oral Tablet Extended Release 12 Hour (Levbid)Indications:I BS (irritable bowel syndrome) TAKE ONE TABLET BY MOUTH EVERY 6 HOURS NEEDED FOR ABDOMINAL PAIN 180 Tablet 3 03/02/20 22 Active RABEprazole Sodium 20 MG Oral Tablet Delayed ReleaseIndications:GE RD (gastroesophageal reflux disease) Take by mouth 2 Tablets in the morning AND 2 Tablets before bedtime. 120 Tablet 5 03/02/20 22 Active Fexofenadine HCl 180 MG Oral Tablet (Yuliya)Indications: Allergic rhinitis,Asthma, severe persistent Take by mouth 1 Tablet in the morning. 30 Tablet 5 03/23/20 22 Active Sucralfate 1 GM Oral Tablet (Carafate)Indications :History of IBS Take 1 Tablet (1 g) by mouth in the morning and 1 Tablet (1 g) at noon and 1 Tablet (1 g) in the evening and 1 Tablet (1 g) before bedtime. TAKE ONE TABLET BY MOUTH FOUR TIMES DAILY . 120 Tablet 5 05/22/20 22 Active Ondansetron 4 MG Oral Tablet DisintegratingIndicat ions:Nausea Place 1 Tablet on tongue every 8 hours as needed for Nausea. dissolve on tongue. 30 Tablet 1 01/19/20 23 Active Ipratropium-Albuterol 20-100 MCG/ACT Inhalation Aerosol Solution (Combivent Respimat)Indications: Asthma, severe persistent INHALE ONE DOSE BY MOUTH FOUR TIMES A DAY NEEDED IN PLACE OF NEBULIZED XOPENEX 4 g 5 03/09/20 23 Active Levalbuterol HCl 1.25 MG/3ML Inhalation Nebulization SolutionIndications:A sthma, severe persistent Inhale 3 mL via nebulizer 4 times a day as needed for Wheezing or Shortness of Breath. Use in place of Combivent. 180 mL 03/09/20 23 Active Ondansetron HCl 4 MG Oral TabletIndications:Vir al URI with cough Take 1 Tablet by mouth every 6 hours as needed for Nausea. 30 Tablet 06/21/20 23 Active guaiFENesin-Codeine 100-10 MG/5ML Oral Syrup (Robitussin AC)Indications:Viral URI with cough Take 5 mL by mouth every 4 hours as needed for Cough. 120 mL 06/21/20 23 Active Verapamil HCl 80 MG Oral Tablet (Isoptin)Indications: Atrial fibrillation by electrocardiogram (HCC) TAKE 1 TABLET BY MOUTH TWICE DAILY 180 Tablet 07/27/19 24 Active rOPINIRole HCl 1 MG Oral Tablet (Requip)Indications:R estless leg syndrome Take by mouth 1 Tablet before bedtime. 90 Tablet 1 08/08/19 22 024 Discontinued(Ad verse reaction) Emgality 120 MG/ML Subcutaneous Solution Auto-injector (Galcanezumab-gn)In dications:Chronic migraine without aura without status migrainosus, not intractable Inject 1 mL under the skin Every Month. 1 mL 5 10/13/19 23 024 Discontinued documented as of this encounter (statuses as of 11/25/2023) Active Problems Problem Noted Date Diagnosed Date [...] was added at 2L on discharge from [facility] 04/26/10 Noct ox CPAP/RA -- <89% [...] (9-67) 12/30/99 - Left lingular biopsy at [facility] s/t frequent URI and nodularity at lingula [...] as of this encounter (statuses as of 11/25/2023) Resolved Problems Problem Noted Date Diagnosed Date [...] reflux 12/23/2010 05/11/2011 Feces contents abnormal 12/17/2010 06/0 01/2016 COPD, severity to be determined 04/18/2010 05/07/2010 [...] as of this encounter (statuses as of 11/25/2023) Immunizations Name Administration Dates Next Due Pneumococcal [...] Information Value Date Recorded Sex Assigned at Female 11/22/2023 11:41 AM EDT Gender Identity Female 11/22/2023 11:41 AM EDT Sexual Orientation Straight 11/22/2023 11 :41 AM EDT Job Start Date Occupation Industry Not on [...] (15 years old or older) No 04/22/20 22 Cognitive Status Response Date of Assessm ent Because of a physical, menta l, or emotional condition, do you have serious difficulty concentrating, remembering, or making decisions? (5 years old or older) No 04/22/2022 documented as of this encounter Miscellaneous Notes * Telephone Encounter - Olivia Shaw RN - 11/25/2023 12:44 PM EDT Called, spoke with patient. Advised follow up recommended post d/c 4-6 weeks. Assisted in rescheduling hospital follow up from 11/30 to 12/22 with Anna Nesbitt at 1130. * Telephone Encounter - Anna Nsebitt CRNP - 11/17/2023 10:44 AM EDT Patient admitted to [facility] on 11/13/2023. Anticipate Discharge within the next 24 to 48 hours. Scheduling: Please assist with [facility] follow-up within the next 4-6 weeks. Patient is considered New, known to the undersigned and Dr. Girard inpatient. Any [facility] appropriate. If scheduling with AP please allow 60 minutes for this appointment and label appt [facility]. Thanks, TERRIE Majano Cardiology progress note 11/17/2023: IMPRESSION: 63 year old with past medical history of syncope and NSVT in 1998, PAT, HTN, HLD, who presents after 2 syncopal episodes. Noted to have nausea and poor PO intake. Labs with anemia, hemoglobin 7.8 >> 9.2 (x1 PRBC). Notes a longstanding history of anemia and normally gets blood transfusions when her hemoglobin dropsbelow 9. New onset PAF 11/15/2023; rates as high as 150s, improved with current dose of verapamil to 80-90s PLAN: Syncope: No concerning arrhythmias on telemetry explaining syncopal episodes. Significant microcytic anemia noted, chronic. Received IV iron this morning. Patient has longstanding history of needing blood transfusions--will defer to primary service With improvement in hydration as well as anemia lightheadedness should improve. PAF with RVR: New onset atrial fibrillation with RVR, diagnosed 11/15/2023 at 1806. Rates as high as 150s. Now controlled in the 80s to 90s. Mildly symptomatic with chest tightness, shortness of breath, and tachy-palpitations. Medication options are limited-notable intolerance to beta-harsha therapy due to interstitial lungdisease. Unsure if amiodarone would be a good option for her given her pulmonary disease. Hesitant to transition her to diltiazem given hypotension. She is currently verapamil 80 mg twice daily-heart rates are well-controlled on this current dose. Continue. Previously discussed stroke risk in relation to paroxysmal atrial fibrillation. At this time I think risk of bleeding outweighs benefit given longstanding anemia with unknown cause. Anticoagulation deferred at this time. Recommend maintaining a potassium goal of 4.0 and mag goal of 2.0. HOLD Requip- increased risk of PAF with this medication documented in this encounter Plan of Treatment Upcoming Encounters Date Type Department Care Team (Latest Contact Info) Description 12/01/2023 11:30 AM EDT [facility] [place] [address] Jessei Mendiola CRNP [address] [facility] [place] [address] 12/07/2023 2:30 PM EDT Imaging Radiology [address] [place] [address] 12/24/2023 12:00 PM EDT Office Visit Family Medicine [address] [place] [id number] Joann You PA-C [address] [place] [address] [place] [address] 02/10/2024 8:59 AM EDT Hospital Encounter OR GL, Operating Room, [facility] - 4th Floor [address] [place] [address] Tarah Wood, DO [address] [place] [address] 02/10/2024 8:59 AM EDT - 02/10/2024 9:46 AM EDT Surgery OR [facility], Operating Room, [facility] - 4th Floor [address] [place] [address] Tarah Wood, DO [address] [place] [address] COLONOSCOPY FLEXIBLE PROXIMAL DIAGNOSTIC 03/10/2024 12:30 PM EDT Office Visit Gastroenterology [address] [place] [address] Mandy Mart CRNP [address] [place] [address] Scheduled Procedures Name Priority Associated Diagnoses Date/Ti me COLONOSCOPY FLEXIBLE PROXIMA L DIAGNOSTIC Recall Special screening for malignant neoplasms, colon Iron deficiency anemia due to chronic blood loss 02/10/2024 8:59 AM EDT ESOPHAGOGASTRODUODENOSCOPY ( EGD), FLEXIBLE, TRANSORAL, DIAGNOSTIC Recall Special screening for malignant neoplasms, colon Iron deficiency anemia due to chronic blood loss 02/10/2024 8:59 AM EDT Health Maintenance Due Date Last Done Comments HIV Screening 1976 Cologuard 2006 Sigmoidoscopy 2006 Zoster Vaccines (1 of 2) 2011 Fecal Occult Blood Test 08/11/2013 08/11/2012 Mammogram 01/31/2015 01/31/2014, 12/04, 11/20/2011, Additional history exists Depression Screening 02/15/2019 02/15/2018 Colonoscopy 03/26/2021 03/26/2011, 03/06, 04/11/2010 Colorectal Cancer Screening 03/26/2021 COVID-19 Vaccine ( season) 2023 Influenza Vaccine (FLU shot) (Season Ended) 2024 TSH 09/28/2024 09/29/2023, 10/2022, 10/23/2020, Additional history exists Lipid Panel 10/23/2025 10/23/2020, [...] this encounter Medical Devices Implanted Type Area [employer] 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 Tissue - Human MUSCULOSKELETAL TRANSPLANT FND [id number] 11/22/2023 [id number] / [id number] 19 / LOT NA Vitoss Bimodal Foam Pack 2.5cc - [id number] Implanted:Qt y: 1 on 04/22/2022 by Jaspreet Georges MD at OR [facility] ANATOLIY : SPINE [id number] 04/01/2023 2102- 190 2 / [id number] / [id number] Vitoss Bimodal Foam Pack 2.5cc - [id number] Implanted:Qt y: 1 on 04/22/2022 by Jaspreet Georges MD at OR [facility] ANATOLIY : SPINE [id number] 09/01/2023 2102- 190 2 / [id number] / [id number] [place] Screw Set Implanted:Qt y: 10 on 04/22/2022 by Jaspreet Georges MD at OR [facility] N/A: Spine Cervical 7601-100 01 / / [place] 3.5 X 12mm Screw Implanted:Qt y: 4 on 04/22/2022 by Jaspreet Georges MD at OR [facility] N/A: Spine Cervical 7601-035 12 / / [place] 3.5 X 10mm Screw Implanted:Qt y: 3 on 04/22/2022 by Jaspreet Georges MD at OR [facility] N/A: Spine Cervical 7601-035 10 / / [place] 4.0 X 10mm Screw Implanted:Qt y: 1 on 04/22/2022 by Jaspreet Georges MD at OR [facility] N/A: Spine Cervical [id number] 10 / / [place] 4.5 X 22mm Screw Implanted:Qt y: 2 on 04/22/2022 by Jaspreet Georges MD at OR [facility] N/A: Spine Cervical [id number] 22 / / [place] 3.5 X 75mm [place] Implanted:Qt y: 2 on 04/22/2022 by Jaspreet Georges MD at OR [facility] N/A: Spine Cervical [id number] 75 / / documented as of this encounter Results * (ABNORMAL) DIGOXIN LEVEL (11/22/2023 2:01 PM EDT) Digoxin Level <0.4(L) 0.5 - 1.1 ng/mL 11/23/2023 1:52 AM EDT [facility] [place] Blood Venous blood specimen / Unknown Venipuncture / Unknown 11/22/2023 2:01 PM EDT 11/22/2023 2:04 PM EDT Narrative [facility] [place] - 11/23/2023 1:52 AM EDT Recommended trough therapeutic ranges: 0.5 to 0.8 for heart failure 0.5 to 1.1 for atrial fibrillation Anna FALCON [facility] BLOOD ORDER [facility] [address] [place] [address] documented in this encounter Visit Diagnoses Diagnosis Paroxysmal atrial fibrillation (HCC)- Primary Atrial fibrillation Persistent atrial fibrillation (HCC) Atrial fibrillation Special screening for malignant neoplasms, colon Iron deficiency anemia due to chronic blood loss Iron deficiency anemia secondary to blood loss (chronic) documented in this encounter Advance Directives * Full Code (Latest Code Status on File) Date Activated Date Inactivated Comments 04/22/2022 1:27 PM 04/27/2022 4:07 PM This order reflects the patients wishes and were consensually agreed upon. Question Answer Comments Discussion of Advance Direct rene occurred with: Not Discussed due to patient's condition * Full Code Date Activated Date Inactivated Comments 04/22/2022 6:45 AM 04/22/2022 1:27 PM This order reflects the patients wishes and were consensually agreed upon. Question Answer Comments Discussion of Advance Direct rene occurred with: Not Discussed due to patient's condition * Full Code Date Activated Date Inactivated Comments 02/15/2012 4:26 PM 02/22/2012 9:50 PM This order r eflects the patients wishes and were consensually agreed upon. Question Answer Comments Discussion of Advance Directives occurred with: Patient * Full Code Date Activated Date Inactivated Comments 08/03/2011 6:27 PM 08/06/2011 2:41 PM This order re flects the patients wishes and were consensually agreed upon. Question Answer Comments Discussion of Advance Directives occurred with: Patient Does the patient have a Living Will? No Does the patient have Health Care Power of Attor ashleigh? No
--- OUTSIDE RECORDS SUMMARY | 2024-01-27 23:39 | External Medical Summary ---
Author Name Unknown Address Unknown Organization K01:[facility] - [address] [place] [address] Laboratory Report Ordering Provider Test Date Status RADHA PIRES 12/07/2023 14:42:36 Final Observation Date Value Abnormality Reference (Units ) Status Glucose 12/07/2023 14:42:36 61 Below low normal 70- 120 (mg/dL) Final Performing Location [facility] - [address] [place] [address]
--- OUTSIDE RECORDS SUMMARY | 2024-01-27 23:39 | External Medical Summary | Summary of Care ---
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; Allergic rhinitis; Nausea Allergies Active Allergy Reactions Criticality Noted Date [...] as of this encounter (statuses as of 12/02/2023) Medications Medication Sig Dispensed Refills Start Date End Date Status MULTIVITAMINS PO TABS 1 TABLET DAILY 0 Active MIRALAX PO POWD 1 Cap full in juice up to 4 times a day to effect 1 stool per day 1 Bottle 3 0 Active ASPIRIN EC 81 MG PO TBEC Take one pill daily 2 Active FERROUS SULFATE 325 (65 FE) MG PO TABSIndications:Iron deficiency anemia One pill by mouth 4 times a day 3 Active Mometasone Furoate (NASONEX) 50 MCG/ACT nasal sprayIndications:Aller gic rhinitis,Chronic sinusitis Administer 2 Sprays into each nostril 2 times a day. 2 Inhaler 1 5 Active Azelastine HCl (ASTELIN) 0.1 % nasal sprayIndications:Aller gic rhinitis Administer 1 [place] into nostril 2 times a day. 3 Bottle 3 5 Active oxygen GASIndications:Hypoxem ia 1 LPM bled through CPAP 4 cwp during hours of sleep (10 hours per day) 1 Each 0 6 Active levothyroxine (LEVOXYL) 100 MCG TabletIndications:Hypo thyroidism TAKE ONE TABLET BY MOUTH EVERY DAY 90 Tab 1 7 Active Vitamin D (Ergocalciferol) 1.25 MG (21465 UT) Oral Capsule Take 1 Cap by mouth once a week. 8 Cap 1 Active Fluticasone-Salmeterol 250-50 MCG/DOSE Inhalation Aerosol Powder Breath Activated (Advair Diskus) Inhale by mouth 1 Puff in the morning AND 1 Puff before bedtime. 180 Each 3 2 Active Triamcinolone Acetonide 0.1 % External Cream (Aristocort)Indication s:Intrinsic eczema Apply to elbows and knees and hairline for psoriasis twice a day 80 g 5 2 Active Topiramate 100 MG Oral Tablet (topAMAX)Indications:M igraine without aura Take by mouth 1 Tablet in the morning AND 1 Tablet before bedtime. 180 Tablet 3 2 Active Cimetidine 400 MG Oral Tablet (Tagamet)Indications:G astroesophageal reflux disease with esophagitis Take by mouth 1 Tablet in the morning AND 1 Tablet before bedtime. 180 Tablet 1 2 Active Hyoscyamine Sulfate ER 0.375 MG Oral Tablet Extended Release 12 Hour (Levbid)Indications:IB S (irritable bowel syndrome) TAKE ONE TABLET BY MOUTH EVERY 6 HOURS NEEDED FOR ABDOMINAL PAIN 180 Tablet 3 2 Active RABEprazole Sodium 20 MG Oral Tablet Delayed ReleaseIndications:KRISHNA D (gastroesophageal reflux disease) Take by mouth 2 Tablets in the morning AND 2 Tablets before bedtime. 120 Tablet 5 2 Active Sucralfate 1 GM Oral Tablet (Carafate)Indications: History of IBS Take 1 Tablet (1 g) by mouth in the morning and 1 Tablet (1 g) at noon and 1 Tablet (1 g) in the evening and 1 Tablet (1 g) before bedtime. TAKE ONE TABLET BY MOUTH FOUR TIMES DAILY . 120 Tablet 5 2 Active Ipratropium-Albuterol 20-100 MCG/ACT Inhalation Aerosol Solution (Combivent Respimat)Indications:A sthma, severe persistent INHALE ONE DOSE BY MOUTH FOUR TIMES A DAY NEEDED IN PLACE OF NEBULIZED XOPENEX 4 g 5 3 Active Levalbuterol HCl 1.25 MG/3ML Inhalation Nebulization SolutionIndications:As thma, severe persistent Inhale 3 mL via nebulizer 4 times a day as needed for Wheezing or Shortness of Breath. Use in place of Combivent. 180 mL 3 Active Ondansetron HCl 4 MG Oral TabletIndications:Maria G l URI with cough Take 1 Tablet by mouth every 6 hours as needed for Nausea. 30 Tablet 3 Active guaiFENesin-Codeine 100-10 MG/5ML Oral Syrup (Robitussin AC)Indications:Viral URI with cough Take 5 mL by mouth every 4 hours as needed for Cough. 120 mL 3 Active Verapamil HCl 80 MG Oral Tablet (Isoptin)Indications:A trial fibrillation by electrocardiogram (HCC) TAKE 1 TABLET BY MOUTH TWICE DAILY 180 Tablet 4 Active Amitriptyline HCl 75 MG Oral Tablet (Elavil)Indications:Mi graine without aura TAKE ONE TABLET BY MOUTH NIGHTLY AT BEDTIME 30 Tablet 4 Active Montelukast Sodium 10 MG Oral Tablet (Singulair)Indications :Asthma, severe persistent Take 1 Tablet by mouth in the morning. 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 1 Each 1 4 Active Fexofenadine HCl 180 MG Oral Tablet (Yuliya)Indications:A sthma, severe persistent,Allergic rhinitis Take 1 Tablet by mouth in the morning. 30 Tablet 5 4 Active Ondansetron 4 MG Oral Tablet DisintegratingIndicati ons:Nausea Place 1 Tablet on tongue every 8 hours as needed for Nausea. dissolve on tongue. 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 1 Each 1 2 12/01/19 24 Discontinu ed(Refill) Fexofenadine HCl 180 MG Oral Tablet (Yuliya)Indications:A llergic rhinitis,Asthma, severe persistent Take by mouth 1 Tablet in the morning. 30 Tablet 5 2 12/01/19 24 Discontinu ed(Refill) Ondansetron 4 MG Oral Tablet DisintegratingIndicati ons:Nausea Place 1 Tablet on tongue every 8 hours as needed for Nausea. dissolve on tongue. 30 Tablet 1 3 12/01/19 24 Discontinu ed(Refill) documented as of this encounter (statuses as of 12/02/2023) Active Problems Problem Noted Date Diagnosed Date [...] was added at 2L on discharge from [facility] 04/26/10 Noct ox CPAP/RA -- <89% [...] (9-67) 12/30/99 - Left lingular biopsy at [facility] s/t frequent URI and nodularity at [...] as of this encounter (statuses as of 12/02/2023) Resolved Problems Problem Noted Date Diagnosed Date [...] Esophageal reflux 12/23/2010 05/11/2011 Feces contents abnormal 12/17/201001/2016 COPD, severity to be determined 04/18/2010 05/07/2010 [...] as of this encounter (statuses as of 12/02/2023) Immunizations Name Administration Dates Next Due Pneumococcal Conjugate Vaccine, 20-valent (Prevn ar20) 12/31/2021 Pneumococcal Polysaccharide PPV23 (Pneumovax) TDAP (age 10 and older)(Boostrix) 12/21/2016 TDAP, Age 7 and older, IM (Adacel) 01/02/2005 documented as of this encounter Social [...] encounter Miscellaneous Notes * Telephone Encounter - Vasiliy Kaiser PA-C - 12/02/2023 3:41 PM EDTSigned Prescriptions: Disp Refills Montelukast Sodium 10 MG Oral Tablet (Sing*90 Tab*1 Sig: Take 1 Tablet by mouth in the morning. Authorizing Provider: VASILIY KAISER EpiPen 2-All 0.3 MG/0.3ML Injection Soluti*1 Each 1 Sig: For a severe reaction: Place orange end against the outer thigh, press firmly, hold in place for 10 seconds and go to the Emergency room. Authorizing Provider: VASILIY KAISER Fexofenadine HCl 180 MG Oral Tablet (Alleg*30 Tab*5 Sig: Take 1 Tablet by mouth in the morning. Authorizing Provider: VASILIY KAISER Ondansetron 4 MG Oral Tablet [id number] Tab*1 Sig: Place 1 Tablet on tongue every 8 hours as needed for Nausea. dissolve on tongue. Authorizing Provider: VASILIY KAISER * Telephone Encounter - Laura Leyva [facility] - 12/02/2023 3:32 PM EDTPending Prescriptions: Disp Refills Montelukast Sodium 10 MG Oral Tablet (Sing*90 Tab*1 Sig: Take 1 Tablet by mouth in the morning. EpiPen 2-All 0.3 MG/0.3ML Injection Soluti*1 Each 1 Sig: For a severe reaction: Place orange end against the outer thigh, press firmly, hold in place for 10 seconds and go to the Emergency room. Fexofenadine HCl 180 MG Oral Ta blet (Alleg*30 Tab*5 Sig: Take 1 Tablet by mouth in the morning. Ondansetron 4 MG Oral Tablet [id number] Tab*1 Sig: Place 1 Tablet on tongue every 8 hours as needed for Nausea. dissolve on tongue. * Telephone Encounter - Laura Leyva [facility] - 12/02/2023 3:31 PM EDT Patient has no PCP under whom to authorize refills. Please approve if appropriate. Thank you, Laura Leyva, PharmD Clinical Pharmacist [facility] ([facility]) 12/02/23 3:31 PM [phone] documented in this encounter Plan of Treatment Upcoming Encounters Date Type Department Care Team (Latest Contact Info) Description 12/07/2023 2:30 PM EDT Imaging Radiology [address] [place] [address] 12/23/2023 11:30 AM EDT Office Visit Cardiology, [facility] [address] [place] [address] Anna Nesbitt CRNP [address] [place] [address] 12/24/2023 12:00 PM EDT Office Visit Family Medicine [address] [place] [phone] Vasiliy Kaiser PA-C [address] [place] [address] [place] [address] 02/10/2024 8:57 AM EDT Hospital Encounter OR [facility], Operating Room, [facility] - 4th Floor [address] [place] [address] Tarah Wood DO [address] [place] [address] 02/10/2024 8:57 AM EDT - 02/10/2024 9:44 AM EDT Surgery OR [facility], Operating Room, [facility] - 4th Floor [address] [place] [address] Tarah Wood DO [address] [place] [address] COLONOSCOPY FLEXIBLE PROXIMAL DIAGNOSTIC 03/10/2024 12:30 PM EDT Office Visit Gastroenterology [address] [place] [address] Mandy Mart CRNP [address] [place] [address] Scheduled Procedures Name Priority Associated Diagnoses Date/Ti me COLONOSCOPY FLEXIBLE PROXIMA L DIAGNOSTIC Recall Special screening for malignant neoplasms, colon Iron deficiency anemia due to chronic blood loss 02/10/2024 8:57 AM EDT ESOPHAGOGASTRODUODENOSCOPY ( EGD), FLEXIBLE, TRANSORAL, DIAGNOSTIC Recall Special screening for malignant neoplasms, colon Iron deficiency anemia due to chronic blood loss 02/10/2024 8:57 AM EDT Health Maintenance Due Date Last [...] this encounter Medical Devices Implanted Type Area Commissary Assistant Device Identifier Shelf Expiration Date Model / Serial / Lot Dbx 5cc [id number] - [id number] Implanted:Qt y: 1 on 04/22/2022 by Jaspreet Georges MD at OR [facility] Tissue - Human MUSCULOSKELETAL TRANSPLANT FND [id number] 11/22/2023 [id number] / [id number] / LOT NA Vitoss Bimodal Foam Pack 2.5cc - [id number] Implanted:Qt y: 1 on 04/22/2022 by Jaspreet Georges MD at OR [facility] ANATOLIY : SPINE [id number] 04/01/20232101- 190 2 / [id number] / [id number] Vitoss Bimodal Foam Pack 2.5cc - [id number] Implanted:Qt y: 1 on 04/22/2022 by Jaspreet Georges MD at OR [facility] ANATOLIY : SPINE [id number] 09/01/20232101- 2 / [id number] / [id number] [place] Screw Set Implanted:Qt y: 10 on 04/22/2022 by Jaspreet Geogres MD at OR [facility] N/A: Spine Cervical 7601-100 01 / / [place] 3.5 X 12mm Screw Implanted:Qt y: 4 on 04/22/2022 by Jaspreet Georges MD at OR [facility] N/A: Spine Cervical 7601-035 12 / / [place] 3.5 X 10mm Screw Implanted:Qt y: 3 on 04/22/2022 by Jaspreet Georges MD at OR [facility] N/A: Spine Cervical 7601-035 10 / / [place] 4.0 X 10mm Screw Implanted:Qt y: 1 on 04/22/2022 by Jaspreet Georges MD at OR [facility] N/A: Spine Cervical 7601-040 10 / / [place] 4.5 X 22mm Screw Implanted:Qt y: 2 on 04/22/2022 by Jaspreet Georges MD at OR [facility] N/A: Spine Cervical 7601-045 22 / / [place] 3.5 X 75mm [place] Implanted:Qt y: 2 on 04/22/2022 by Jaspreet Georges MD at OR [facility] N/A: Spine Cervical 1024-680 75 / / documented as of this encounter Visit Diagnoses Diagnosis Asthma, severe persistent Unspecified asthma 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
--- OUTSIDE RECORDS SUMMARY | 2024-01-27 23:39 | External Medical Summary ---
Author Name Unknown Address Unknown Organization K01:[place] [facility] [place] [address] [place] [address] Laboratory Report Ordering Provider Test Date Status NATALIA WHITING 12/07/2023 14:42:36 Final Observation Date Value Abnormality Reference (Units ) Status MYCODE SPECIMEN-SST 12/07/2023 14:42:36 Freezing of extracted DNA, whole blood and/or serum. Final Performing Location LABORATORY C - [address] [place] [address]
--- OUTSIDE RECORDS SUMMARY | 2024-01-27 23:39 | External Medical Summary | Summary of Care ---
Author Name Unknown Organization [facility] Address [address] [facility] [address] Phone [phone] Care Team Providers Care Ship Construction Teacher Name Role Phone Unavailable Primary Care Provider Unavailabl e Reason for Visit * Reason Comments Outpatient Testing Encounter Details Date Type Department Care Team (Late st Contact Info) Description 12/07/2023 2:50 PM EDT Laboratory Laboratory [address] [place] [phone] [facility] [address] [place] [address] [employer] Other*[id number]; Celiac disease Allergies Active Allergy Reactions Criticality Noted Date [...] as of this encounter (statuses as of 12/07/2023) Medications Medication Sig Dispensed Refills Start Date End Date Status MULTIVITAMINS PO TABS 1 TABLET DAILY 04/17/2010 Active MIRALAX PO POWD 1 Cap full in juice up to 4 times a day to effect 1 stool per day 1 Bottle 3 04/17/2010 Active ASPIRIN EC 81 MG PO TBEC Take one pill daily 01/27/2012 Active FERROUS SULFATE 325 (65 FE) MG PO TABSIndications:Iron deficiency anemia One pill by mouth 4 times a day 09/13/2012 Active Mometasone Furoate (NASONEX) 50 MCG/ACT nasal sprayIndications:Allerg ic rhinitis,Chronic sinusitis Administer 2 Sprays into each nostril 2 times a day. 2 Inhaler 1 06/06/2015 Active Azelastine HCl (ASTELIN) 0.1 % nasal sprayIndications:Allerg ic rhinitis Administer 1 [place] into nostril 2 times a day. 3 Bottle 3 06/05/2015 Active oxygen GASIndications:Hypoxemi a 1 LPM bled through CPAP 4 cwp during hours of sleep (10 hours per day) 1 Each 0 11/08/2015 Active levothyroxine (LEVOXYL) 100 MCG TabletIndications:Hypot hyroidism TAKE ONE TABLET BY MOUTH EVERY DAY 90 Tab 1 06/15/2017 Active Vitamin D (Ergocalciferol) 1.25 MG (94417 UT) Oral Capsule Take 1 Cap by mouth once a week. 8 Cap 11/18/2020 Active Fluticasone-Salmeterol 250-50 MCG/DOSE Inhalation Aerosol Powder Breath Activated (Advair Diskus) Inhale by mouth 1 Puff in the morning AND 1 Puff before bedtime. 180 Each 3 08/29/2021 Active Triamcinolone Acetonide 0.1 % External Cream (Aristocort)Indications :Intrinsic eczema Apply to elbows and knees and hairline for psoriasis twice a day 80 g 5 12/23/2021 Active Topiramate 100 MG Oral Tablet (topAMAX)Indications:Mi graine without aura Take by mouth 1 Tablet in the morning AND 1 Tablet before bedtime. 180 Tablet 3 03/02/2022 Active Cimetidine 400 MG Oral Tablet (Tagamet)Indications:Ga stroesophageal reflux disease with esophagitis Take by mouth 1 Tablet in the morning AND 1 Tablet before bedtime. 180 Tablet 1 03/02/2022 Active Hyoscyamine Sulfate ER 0.375 MG Oral Tablet Extended Release 12 Hour (Levbid)Indications:IBS (irritable bowel syndrome) TAKE ONE TABLET BY MOUTH EVERY 6 HOURS NEEDED FOR ABDOMINAL PAIN 180 Tablet 3 03/02/2022 Active RABEprazole Sodium 20 MG Oral Tablet Delayed ReleaseIndications:GERD (gastroesophageal reflux disease) Take by mouth 2 Tablets in the morning AND 2 Tablets before bedtime. 120 Tablet 5 03/02/2022 Active Sucralfate 1 GM Oral Tablet (Carafate)Indications:H istory of IBS Take 1 Tablet (1 g) by mouth in the morning and 1 Tablet (1 g) at noon and 1 Tablet (1 g) in the evening and 1 Tablet (1 g) before bedtime. TAKE ONE TABLET BY MOUTH FOUR TIMES DAILY . 120 Tablet 5 05/22/2022 Active Ipratropium-Albuterol 20-100 MCG/ACT Inhalation Aerosol Solution [...] Use in place of Combivent. 180 mL 03/09/2023 Active Ondansetron HCl 4 MG Oral TabletIndications:Viral URI with cough Take 1 Tablet by mouth every 6 hours as needed for Nausea. 30 Tablet 06/21/2023 Active guaiFENesin-Codeine 100-10 MG/5ML Oral Syrup (Robitussin AC)Indications:Viral URI with cough Take 5 mL by mouth every 4 hours as needed for Cough. 120 mL 06/21/2023 Active Verapamil HCl 80 MG Oral Tablet (Isoptin)Indications:At rial fibrillation by electrocardiogram (HCC) TAKE 1 TABLET BY MOUTH TWICE DAILY 180 Tablet 07/27/2023 Active Amitriptyline HCl 75 MG Oral Tablet (Elavil)Indications:Elvis priya without aura TAKE ONE TABLET BY MOUTH NIGHTLY AT BEDTIME 30 Tablet 12/01/2023 Active Montelukast Sodium 10 MG Oral Tablet (Singulair)Indications: Asthma, severe persistent Take 1 Tablet by mouth in the morning. 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 1 Each 1 12/02/2023 Active Fexofenadine HCl 180 MG Oral Tablet (Yuliya)Indications:As thma, severe persistent,Allergic rhinitis Take 1 Tablet by mouth in the morning. 30 Tablet 5 12/02/2023 Active Ondansetron 4 MG Oral Tablet DisintegratingIndicatio ns:Nausea Place 1 Tablet on tongue every 8 hours as needed for Nausea. dissolve on tongue. 30 Tablet 1 12/02/2023 Active documented as of this encounter (statuses as of 12/07/2023) Active Problems Problem Noted Date Diagnosed Date [...] was added at 2L on discharge from [facility] 04/26/10 Noct ox CPAP/RA -- <89% 5:12 [...] (9-67) 12/30/99 - Left lingular biopsy at [facility] s/t frequent URI and nodularity at [...] as of this encounter (statuses as of 12/07/2023) Resolved Problems Problem Noted Date Diagnosed Date [...] as of this encounter (statuses as of 12/07/2023) Immunizations Name Administration Dates Next Due Pneumococcal [...] as of this encounter Plan of Treatment Upcoming Encounters Date Type Department Care Team (Latest Contact Info) Description 12/23/2023 11:30 AM EDT Office Visit Cardiology, [facility] [address] [place] [address] Anna Nesbitt CRNP [address] [place] [address] 12/24/2023 12:00 PM EDT Office Visit Family Medicine [address] [place] [phone] Joann You PA-C [address] [place] [address] [place] [address] 02/10/2024 8:57 AM EDT Hospital Encounter OR [facility], Operating Room, [facility] - 4th Floor [address] [place] [address] Tarah Wood, DO [address] [place] [address] 02/10/2024 8:57 AM EDT - 02/10/2024 9:44 AM EDT Surgery OR [facility], Operating Room, [facility] Floor [address] [place] [address] Tarah Wood DO [address] [place] [address] COLONOSCOPY FLEXIBLE PROXIMAL DIAGNOSTIC 03/10/2024 12:30 PM EDT Office Visit Gastroenterology [address] [place] [address] Mandy Mart CRNP [address] [place] [address] Pending Results Name Type Priority Associated Diagnoses Date /Time MYCODE SUBSEQUENT ADULT Lab Routine [employer] Other*[id number] 12/07/2023 2:42 PM EDT GLUCOSE Lab Routine Celiac disease 12/07/2023 2:42 PM EDT MYCODE SST1 Lab Routine [employer] Other*[id number] 12/07/2023 2:42 PM EDT MYCODE SST2 Lab Routine [employer] Other*[id number] 12/07/2023 2:42 PM EDT Scheduled Procedures Name Priority Associated [...] this encounter Medical Devices Implanted Type Area Quitline Counselor Device Identifier Shelf Expiration Date Model / Serial / Lot Dbx 5cc [id number] - [id number] Implanted:Qt y: 1 on 04/22/2022 by Jaspreet Georges MD at OR [facility] Tissue - Human MUSCULOSKELETAL TRANSPLANT FND [id number] 11/22/2023 [id number] / [id number] / LOT NA Vitoss Bimodal Foam Pack 2.5cc - [id number] Implanted:Qt y: 1 on 04/22/2022 by Jaspreet Georges MD at OR [facility] ANATOLIY : SPINE [id number] 04/01/2023 2102- 190 2 / [id number] / [id number] Vitoss Bimodal Foam Pack 2.5cc - [id number] Implanted:Qt y: 1 on 04/22/2022 by Jaspreet Georges MD at OR [facility] ANATOLIY : SPINE [id number] 09/01/2023 2102- 190 2 / [id number] / [id number] [place] Screw Set Implanted:Qt y: 10 on 04/22/2022 by Jaspreet Georges MD at OR [facility] N/A: Spine Cervical 7601-100 01 / / [place] 3.5 X 12mm Screw Implanted:Qt y: 4 on 04/22/2022 by Jaspreet Georges MD at OR [facility] N/A: Spine Cervical 7601-035 12 / / [place] 3.5 X 10mm Screw Implanted:Qt y: 3 on 04/22/2022 by Jaspreet Georges MD at OR [facility] N/A: Spine Cervical 7601-035 10 / / [place] 4.0 X 10mm Screw Implanted:Qt y: 1 on 04/22/2022 by Jaspreet Georges MD at OR [facility] N/A: Spine Cervical 7601-040 10 / / [place] 4.5 X 22mm Screw Implanted:Qt y: 2 on 04/22/2022 by Jaspreet Georges MD at OR [facility] N/A: Spine Cervical 7601-045 22 / / [place] 3.5 X 75mm [place] Implanted:Qt y: 2 on 04/22/2022 by Jaspreet Georges MD at OR [facility] N/A: Spine Cervical 7601-635 75 / / documented as of this encounter Visit Diagnoses Diagnosis [employer] Other*[id number] Celiac disease Special screening for malignant neoplasms, colon Iron [...]
--- OUTSIDE RECORDS SUMMARY | 2024-01-27 23:39 | External Medical Summary ---
Author Name Unknown Address Unknown Organization K01:LABORATORY [facility] [place] - [address] [place] [address] Laboratory Report Ordering Provider Test Date Status NATALIA WHITING 12/07/2023 14:42:36 Final Observation Date Value Abnormality Reference (Units ) Status MYCODE SPECIMEN-SST 12/07/2023 14:42:36 Freezing of extracted DNA, whole blood and/or serum. Final Performing Location LABORATORY C - [address] [place] [address]
--- OUTSIDE RECORDS SUMMARY | 2024-01-27 23:39 | External Medical Summary | Summary of Care ---
Author Name Unknown Organization [facility] Address [address] [place] [address] Phone [phone] Care Team Providers Care Bridge Leverman Name Role Phone Unavailable Primary Care Provider Unavailabl e Reason for Visit * Reason Onset Date Comments Appointment 12/15/2023 Endocrinology Encounter Details Date Type Department Care Team (Late st Contact Info) Description 12/15/2023 Telephone Family Medicine [address] [phone] Vicki Cadet MD [address] [place] [address] [place] [address] Appointment (Endocrinology ) Allergies Active Allergy Reactions Criticality Noted Date [...] as of this encounter (statuses as of 12/15/2023) Medications Medication Sig Dispensed Refills Start Date [...] % nasal sprayIndications:Allerg ic rhinitis Administer 1 [place] into nostril 2 times a day. 3 Bottle 3 06/05/2015 Active oxygen GASIndications:Hypoxemi a 1 LPM bled through CPAP 4 cwp during hours of sleep (10 hours per day) 1 Each 0 11/08/2015 Active levothyroxine (LEVOXYL) 100 MCG TabletIndications:Hypot hyroidism TAKE ONE TABLET BY MOUTH EVERY DAY 90 Tab 1 06/15/2017 Active Vitamin D (Ergocalciferol) 1.25 MG (70660 UT) Oral Capsule Take 1 Cap by [...] as of this encounter (statuses as of 12/15/2023) Active Problems Problem Noted Date Diagnosed Date [...] 06/24/2010 CYNTHIA (obstructive sleep apnea) 04/23/2010 Overview: 5/3/16 PSG - CPAP 4 cwp with 1 LPM 09/06/09 PSG -- AHI 24.5 (3 centrals, 50 obstructions, 5 mixed, 65 hypopneas), PVCs noted 10/2009 -- CPAP initiatedat 12 cwp, with improved daytime fatigue 11/29/09 MSLT -- mean sleep onset 1.4 mins, no REM x4 naps 04/09/10 -- Oxygen was added at 2L on discharge from [facility] 04/26/10 Noct ox CPAP/RA -- <89% 5:12 [...] (9-67) 12/30/99 - Left lingular biopsy at [facility] s/t frequent URI and nodularity at [...] as of this encounter (statuses as of 12/15/2023) Resolved Problems Problem Noted Date Diagnosed Date [...] as of this encounter (statuses as of 12/15/2023) Immunizations Name Administration Dates Next Due Pneumococcal [...] encounter Miscellaneous Notes * Telephone Encounter - Keisha Shaw OSA - 12/15/2023 8:28 AM EDT Lucinda siddiqui scheduled with Endocrinology for: Hypoglycemia [E16.2] - Primary documented in this encounter Plan of Treatment Upcoming Encounters Date Type Department Care Team (Latest Contact Info) Description 12/23/2023 11:30 AM EDT Office Visit Cardiology, [facility] [address] [place] [address] Anna Nesbitt CRNP [address] [place] [address] 12/24/2023 12:00 PM EDT Office Visit Family Medicine [address] [place] [phone] Joann You PA-C [address] [place] [address] [place] [address] 02/10/2024 8:57 AM EDT Hospital Encounter OR [facility], Operating Room, [facility] - 4th Floor [address] [place] [address] Tarah Wood, DO [address] [place] [address] 02/10/2024 8:57 AM EDT - 02/10/2024 9:44 AM EDT Surgery OR [facility], Operating Room, [facility] - 4th Floor [address] [place] [address] Tarah Wood, DO [address] [place] [address] COLONOSCOPY FLEXIBLE PROXIMAL DIAGNOSTIC 03/10/2024 12:30 PM EDT Office Visit Gastroenterology [address] [place] [address] Mandy Mart CRNP [address] [place] [address] Scheduled Procedures Name Priority Associated Diagnoses Date/Ti [...] 2011 Fecal Occult Blood Test 08/11/2013 08/11/2012 Depression Screening 02/15/2019 02/15/2018 Colonoscopy 03/26/2021 03/26/2011, 03/06, 04/11/2010 Colorectal Cancer Screening 03/26/2021 COVID-19 Vaccine ( season) 2023 Influenza Vaccine (FLU shot) (Season Ended) 2024 TSH 09/28/2024 09/29/2023, 10/2022, 10/23/2020, Additional history exists Mammogram 12/06/2024 12/07/2023, 01/04, 12/22/2012, Additional history exists Lipid Panel 10/23/2025 10/23/2020, [...] this encounter Medical Devices Implanted Type Area Bow String Maker Device Identifier Shelf Expiration Date Model / Serial / Lot Dbx 5cc [id number] - [id number] Implanted:Qt y: 1 on 04/22/2022 by Jaspreet Georges MD at OR [facility] Tissue - Human MUSCULOSKELETAL TRANSPLANT FND [id number] 11/22/2023 [id number] / [id number] / LOT NA Vitoss Bimodal Foam Pack 2.5cc - [id number] Implanted:Qt y: 1 on 04/22/2022 by Jaspreet Georges MD at OR [facility] ANATOLIY : SPINE [id number] 04/01/2023 2102- 190 2 / [id number] / [id number] Vitoss Bimodal Foam Pack 2.5cc - [id number] Implanted:Qt y: 1 on 04/22/2022 by Jaspreet Georges MD at OR [facility] ANATOLIY : SPINE [id number] 09/01/2023 2102- 190 2 / [id number] / [id number] Anatoliy [place] Screw Set Implanted:Qt y: 10 on 04/22/2022 by Jaspreet Georges MD at OR [facility] N/A: Spine Cervical 7601-100 01 / / An[place]oliy [place] 3.5 X 12mm Screw Implanted:Qt y: 4 on 04/22/2022 by Jaspreet Georges MD at OR [facility] N/A: Spine Cervical 7601-035 12 / / An[place] 3.5 X 10mm Screw Implanted:Qt y: 3 on 04/22/2022 by Jaspreet Georges MD at OR [facility] N/A: Spine Cervical 7601-035 10 / / [place] 4.0 X 10mm Screw Implanted:Qt y: 1 on 04/22/2022 by Jaspreet Georges MD at OR [facility] N/A: Spine Cervical 7601-040 10 / / [place] 4.5 X 22mm Screw Implanted:Qt y: 2 on 04/22/2022 by Jaspreet Georges MD at OR [facility] N/A: Spine Cervical 7601-045 22 / / [place] 3.5 X 75mm [place] Implanted:Qt y: 2 on 04/22/2022 by Jaspreet Georges MD at OR [facility] N/A: Spine Cervical 7601-635 75 / / documented as of this encounter Advance Directives * Full Code [...]
--- OUTSIDE RECORDS SUMMARY | 2024-01-27 23:39 | External Medical Summary | Summary of Care ---
Author Name Unknown Organization [facility] Address [address] [place] [address] Phone [phone] Care Team Providers Care Hand Screen Printer Name Role Phone Unavailable Primary Care Provider Unavailabl e Reason for Visit * Reason Comments eRx-Medication Refill Encounter Details Date Type Department Care Team (Late st Contact Info) Description 12/14/2023 Refill Family Medicine [address] [phone] Christiano Muñoz MD [address] [place] [address] [place] [address] Allergies Active Allergy Reactions Criticality Noted Date [...] % nasal sprayIndications:Allerg ic rhinitis Administer 1 [place] into nostril 2 times a day. 3 Bottle 3 06/05/2015 Active oxygen GASIndications:Hypoxemi a 1 LPM bled through CPAP 4 cwp during hours of sleep (10 hours per day) 1 Each 0 11/08/2015 Active levothyroxine (LEVOXYL) 100 MCG TabletIndications:Hypot hyroidism TAKE ONE TABLET BY MOUTH EVERY DAY 90 Tab 1 06/15/2017 Active Vitamin D (Ergocalciferol) 1.25 MG (49024 UT) Oral Capsule Take 1 Cap by [...] added at 2L on discharge from [facility] 04/26/10 Noct ox CPAP/RA -- <89% [...] (9-67) 12/30/99 - Left lingular biopsy at [facility] s/t frequent URI and nodularity at [...] aureus infection 09/24/2009 08/18/2017 Overview: First diagnosed 1999 CHRONIC PEPTIC ULCER NOS 04/15/2009 COPD with [...] encounter Miscellaneous Notes * Telephone Encounter - Michael Padilla RPh - 12/15/2023 12:07 PM EDTRefused Prescriptions: Disp Refills Verapamil HCl 40 MG Oral Tablet (Isoptin) 120 Ta*0 Sig: TAKE 2 TABLETS BY MOUTH TWICE DAILYRefused By: MICHAEL PADILLA for Refusal: Patient Should Contact Provider First Digoxin 125 MCG Oral Tablet (Lanoxin) 30 Tab*0 Sig: TAKE 1 TABLET BY MOUTH ONCE DAILY at 4PMRefused By: MICHAEL PADILLA for Refusal: Patient Should Contact Provider First FolicAcid 1 MG Oral Tablet 30 Tab*0 Sig: TAKE 1 TABLET BY MOUTH EVERY MORNINGRefused By: MICHAEL PADILLA for Refusal: Patient Should Contact Provider First documented in this encounter Plan of Treatment Upcoming Encounters Date Type Department Care Team (Latest Contact Info) Description 12/23/2023 11:30 AM EDT Office Visit Cardiology, [facility] [address] [place] [address] Anna Nesbitt CRNP [address] [place] [address] 12/24/2023 12:00 PM EDT Office Visit Family Medicine [address] [place] [phone] Joann You PA-C [address] [place] [address] [place] [address] 02/10/2024 8:57 AM EDT Hospital Encounter OR [facility], Operating Room, [facility] - 4th Floor [address] [place] [address] [place] [address] Tarah Wood, DO [address] [place] [address] 02/10/2024 8:57 AM EDT - 02/10/2024 9:44 AM EDT Surgery OR [facility], Operating Room, [facility] - 4th Floor [address] [place] [address] Tarah Wood, DO [address] [place] [address] COLONOSCOPY FLEXIBLE PROXIMAL DIAGNOSTIC 03/10/2024 12:30 PM EDT Office Visit Gastroenterology [address] [place] [address] Mandy Mart CRNP [address] [place] [address] Scheduled Procedures Name Priority Associated Diagnoses Date/Ti [...] shot) (Season Ended) 2024 TSH 09/28/2024 09/29/2023, 0 10/2022, 10/23/2020, Additional history exists Mammogram 12/06/2024 [...] this encounter Medical Devices Implanted Type Area Senior Electronics Engineer Device Identifier Shelf Expiration Date Model / Serial / Lot Dbx 5cc [id number] - [id number] Implanted:Qt y: 1 on 04/22/2022 by Jaspreet Georges MD at OR [facility] Tissue - Human MUSCULOSKELETAL TRANSPLANT FND [id number] 11/22/2023 [id number] / [id number] LOT NA Vitoss Bimodal Foam Pack 2.5cc - [id number] Implanted:Qt y: 1 on 04/22/2022 by Jaspreet Georges MD at OR [facility] ANATOLYI : SPINE [id number] 04/01/20232101- 190 2 / [id number] / [id number] Vitoss Bimodal Foam Pack 2.5cc - [id number] Implanted:Qt y: 1 on 04/22/2022 by Jaspreet Georges MD at OR [facility] ANATOLIY : SPINE [id number] 09/01/2023 210- 190 2 / [id number] / [id number] Anatoliy [place] Screw Set Implanted:Qt y: 10 on 04/22/2022 by Jaspreet Georges MD at OR [facility] N/A: Spine Cervical 7601-100 01 / / Anatoliy [place] 3.5 X 12mm Screw Implanted:Qt y: 4 on 04/22/2022 by Jaspreet Georges MD at OR [facility] N/A: Spine Cervical 7601-035 12 / / Anatoliy [place] 3.5 X 10mm Screw Implanted:Qt y: 3 on 04/22/2022 by Jaspreet Georges MD at OR [facility] N/A: Spine Cervical 7601-035 10 / / [place] 4.0 X 10mm Screw Implanted:Qt y: 1 on 04/22/2022 by Jaspreet Georges MD at OR [facility] N/A: Spine Cervical 7601-040 10 / / [place] 4.5 X 22mm Screw Implanted:Qt y: 2 on 04/22/2022 by Jaspreet Georges MD at OR [facility] N/A: Spine Cervical 7601-045 22 / / Anatoliy [place] 3.5 X 75mm [place] Implanted:Qt y: 2 on 04/22/2022 by Jaspreet Georges MD at OR [facility] N/A: Spine Cervical 7601-635 75 / / [...]
--- OUTSIDE RECORDS SUMMARY | 2024-01-27 23:39 | External Medical Summary | Summary of Care ---
Author Name Unknown Organization [facility] Address [address] [facility] [place] [address] Phone [phone] Care Team Providers Care Automotive Alignment Specialist Name Role Phone Unavailable Primary Care Provider Unavailabl e Reason for Visit * Reason Onset Date Comments Medication Refill 12/01/2023 Encounter Details Date Type Department Care Team (Late st Contact Info) Description 12/01/2023 Refill Neurology [facility] [address] [place] [address] Ronnie Pandya MD [address] [place] [address] MIGRAINE W/O AURA Allergies Active Allergy Reactions Criticality Noted Date [...] as of this encounter (statuses as of 12/01/2023) Medications Medication Sig Dispensed Refills Start Date [...] % nasal sprayIndications:Aller gic rhinitis Administer 1 [place] into nostril 2 times a day. 3 Bottle 3 5 Active oxygen GASIndications:Hypoxem ia 1 LPM bled through CPAP 4 cwp during hours of sleep (10 hours per day) 1 Each 0 6 Active montelukast (SINGULAIR) 10 MG TabletIndications:Asth ma, severe persistent TAKE ONE TABLET BY MOUTH ONE TIME DAILY 90 Tab 1 7 Active levothyroxine (LEVOXYL) 100 MCG TabletIndications:Hypo thyroidism TAKE ONE TABLET BY MOUTH EVERY DAY 90 Tab 1 7 Active Vitamin D (Ergocalciferol) 1.25 MG (11546 UT) Oral Capsule Take 1 Cap by mouth once a week. 8 Cap 1 Active Fluticasone-Salmeterol 250-50 MCG/DOSE Inhalation Aerosol Powder Breath Activated (Advair Diskus) Inhale by mouth 1 Puff in the morning AND 1 Puff before bedtime. 180 Each 3 2 Active EpiPen 2-All 0.3 MG/0.3ML Injection Solution Auto-injectorIndicatio ns:Severe allergy to eggs For a severe reaction: Place orange end against the outer thigh, press firmly, hold in place for 10 seconds and go to the Emergency room. 1 Each 1 2 Active Triamcinolone Acetonide 0.1 % External [...] before bedtime. 120 Tablet 5 2 Active Fexofenadine HCl 180 MG Oral Tablet (Yuliya)Indications:A llergic rhinitis,Asthma, severe persistent Take by mouth 1 Tablet in the morning. 30 Tablet 5 2 Active Sucralfate 1 GM Oral Tablet (Carafate)Indications: History of IBS Take 1 Tablet (1 g) by mouth in the morning and 1 Tablet (1 g) at noon and 1 Tablet (1 g) in the evening and 1 Tablet (1 g) before bedtime. TAKE ONE TABLET BY MOUTH FOUR TIMES DAILY . 120 Tablet 5 2 Active Ondansetron 4 MG Oral Tablet DisintegratingIndicati ons:Nausea Place 1 Tablet on tongue every 8 hours as needed for Nausea. dissolve on tongue. 30 Tablet 1 3 Active Ipratropium-Albuterol 20-100 MCG/ACT Inhalation Aerosol Solution [...] NIGHTLY AT BEDTIME 30 Tablet 4 Active Amitriptyline HCl 75 MG Oral Tablet (Elavil)Indications:Mi graine without aura TAKE ONE TABLET BY MOUTH NIGHTLY AT BEDTIME 90 Tablet 3 2 12/01/19 24 Discontinu ed(Refill) documented as of this encounter (statuses as of 12/01/2023) Active Problems Problem Noted Date Diagnosed Date [...] was added at 2L on discharge from [facility] 04/26/10 Noct ox CPAP/RA -- <89% 5:12 [...] (9-67) 12/30/99 - Left lingular biopsy at [facility] s/t frequent URI and nodularity at [...] as of this encounter (statuses as of 12/01/2023) Resolved Problems Problem Noted Date Diagnosed Date [...] reflux 12/23/2010 05/11/2011 Feces contents abnormal 12/17/2010 0601/2016 COPD, severity to be determined 04/18/2010 05/07/2010 [...] as of this encounter (statuses as of 12/01/2023) Immunizations Name Administration Dates Next Due Pneumococcal [...] encounter Miscellaneous Notes * Telephone Encounter - Ronnie Pandya MD - 12/01/2023 12:45 PM EDTSigned Prescriptions: Disp Refills Amitriptyline HCl 75 MG Oral Tablet (Elavi*30 Tab*0 Sig: TAKE ONE TABLET BY MOUTH NIGHTLY AT BEDTIME Authorizing Provider: RONNIE PANDYA * Telephone Encounter - Talia Daley MED Sanghvi - 12/01/2023 11:00 AM EDTPending Prescriptions: Disp Refills Amitriptyline HCl 75 MG Oral Tablet (Elavi*30 Tab*0 Sig: TAKE ONE TABLET BY MOUTH NIGHTLY AT BEDTIME * Telephone Encounter - Talia Daley MED ASSIST - 12/01/2023 11:00 AM EDT Pt needs a f/u appt. Pended month supply with no refills documented in this encounter Plan of Treatment Upcoming Encounters Date Type Department Care Team (Latest Contact Info) Description 12/07/2023 2:30 PM EDT Imaging Radiology [address] [place] [address] 12/23/2023 11:30 AM EDT Office Visit Cardiology, [facility] [address] [place] [address] Anna Nesbitt CRNP [address] [place] [address] 12/24/2023 12:00 PM EDT Office Visit Family Medicine [address] [place] [phone] Joann You PA-C [address] [place] [address] [place] [address] 02/10/2024 8:57 AM EDT Hospital Encounter [facility], Operating Room, [facility] - 4th Floor [address] [place] [address] Tarah Wood, DO [address] [place] [address] 02/10/2024 8:57 AM EDT - 02/10/2024 9:44 AM EDT Surgery OR [facility], Operating Room, [facility] - 4th Floor [address] [place] [address] Tarah Wood, DO [address] [place] [address] COLONOSCOPY FLEXIBLE PROXIMAL DIAGNOSTIC 03/10/2024 12:30 PM EDT Office Visit Gastroenterology [address] [place] [address] Mandy Mart CRNP [address] [place] [address] Scheduled Procedures Name Priority Associated Diagnoses Date/Ti [...] this encounter Medical Devices Implanted Type Area Hogshead Roller Device Identifier Shelf Expiration Date Model / Serial / Lot Dbx 5cc [id number] - [id number] Implanted:Qt y: 1 on 04/22/2022 by Jaspreet Georges MD at OR [facility] Tissue - Human MUSCULOSKELETAL TRANSPLANT FND [id number] 11/22/2023 163810 / [id number] 19 / LOT NA Vitoss Bimodal Foam Pack 2.5cc - [id number] Implanted:Qt y: 1 on 04/22/2022 by Jaspreet Georges MD at OR [facility] ANATOLIY : SPINE [id number] 04/01/20232101- 190 2 / [id number] / [id number] Vitoss Bimodal Foam Pack 2.5cc - [id number] Implanted:Qt y: 1 on 04/22/2022 by Jaspreet Georges MD at OR [facility] ANATOLIY : SPINE [id number] 09/01/2023 2 / [id number] / [id number] [place] Screw Set Implanted:Qt y: 10 on 04/22/2022 by Jaspreet Georges MD at OR [facility] N/A: Spine Cervical 7601-100 01 / / [place] 3.5 X 12mm Screw Implanted:Qt y: 4 on 04/22/2022 by Jaspreet Georges MD at OR [facility] N/A: Spine Cervical 7601-035 12 / / [place] 3.5 X 10mm Screw Implanted:Qt y: 3 on 04/22/2022 by Jaspreet Georges MD at OR [facility] N/A: Spine Cervical 7601-035 10 / / [place] 4.0 X 10mm Screw Implanted:Qt y: 1 on 04/22/2022 by Jaspreet Georges MD at OR [facility] N/A: Spine Cervical 7601-040 10 / / Anatoliy [place] 4.5 X 22mm Screw Implanted:Qt y: 2 on 04/22/2022 by Jaspreet Georges MD at OR [facility] N/A: Spine Cervical 7601-045 22 / / [place] 3.5 X 75mm [place] Implanted:Qt y: 2 on 04/22/2022 by Jaspreet Georges MD at OR [facility] N/A: Spine Cervical 7601-635 75 / / documented as of this encounter Visit Diagnoses Diagnosis MIGRAINE W/O AURA Migraine without aura, without mention of intractable migraine without mention of status migrainosus Special screening for malignant neoplasms, colon Iron [...]
--- OUTSIDE RECORDS SUMMARY | 2024-01-27 23:39 | External Medical Summary | Summary of Care ---
Author Name Unknown Organization [facility] Address [address] [facility] [place] [address] Phone [phone] Care Team Providers Care Waste Water Operator Name Role Phone Unavailable Primary Care Provider Unavailabl e Encounter Details Date Type Department Care Team (Late st Contact Info) Description 11/30/2023 Orders Only PATIENT PORTAL DO NOT DELETE THIS DEPT USED BY [place] [id number] Allergies Active Allergy Reactions Criticality Noted Date [...] as of this encounter (statuses as of 11/30/2023) Medications Medication Sig Dispensed Refills Start Date [...] % nasal sprayIndications:Allerg ic rhinitis Administer 1 [place] into nostril 2 times a day. 3 [...] 06/15/2017 Active Vitamin D (Ergocalciferol) 1.25 MG (70035 UT) Oral Capsule Take 1 Cap by mouth once a week. 8 Cap 11/18/2020 Active Amitriptyline HCl 75 MG Oral Tablet (Elavil)Indications:Elvis priya without aura TAKE ONE TABLET BY MOUTH NIGHTLY AT BEDTIME 90 Tablet 3 08/08/2021 Active Fluticasone-Salmeterol 250-50 MCG/DOSE Inhalation Aerosol [...] before bedtime. 120 Tablet 5 03/02/2022 Active Fexofenadine HCl 180 MG Oral Tablet (Yuliya)Indications:Al lergic rhinitis,Asthma, severe persistent Take by mouth 1 Tablet in the morning. 30 Tablet 5 03/23/2022 Active Sucralfate 1 GM Oral Tablet (Carafate)Indications:H istory of IBS Take 1 Tablet (1 g) by mouth in the morning and 1 Tablet (1 g) at noon and 1 Tablet (1 g) in the evening and 1 Tablet (1 g) before bedtime. TAKE ONE TABLET BY MOUTH FOUR TIMES DAILY . 120 Tablet 5 05/22/2022 Active Ondansetron 4 MG Oral Tablet DisintegratingIndicatio [...] Oral Tablet (Isoptin)Indications:At rial fibrillation by electrocardiogram ([facility]) TAKE 1 TABLET BY MOUTH TWICE DAILY 180 Tablet 07/27/2023 Active documented as of this encounter (statuses as of 11/30/2023) Active Problems Problem Noted Date Diagnosed Date [...] added at 2L on discharge from [facility] 04/26/10 Noct ox CPAP/RA -- <89% 5:12 [...] - Left lingular biopsy at [facility] s/t frequent URI and nodularity at [...] as of this encounter (statuses as of 11/30/2023) Resolved Problems Problem Noted Date Diagnosed Date [...] as of this encounter (statuses as of 11/30/2023) Immunizations Name Administration Dates Next Due Pneumococcal [...] Description 12/07/2023 2:30 PM EDT Imaging Radiology [address] [place] [address] 12/23/2023 11:30 AM EDT Office Visit Cardiology, [facility] [address] [place] [address] Anna Nesbitt CRNP [address] [place] [address] 12/24/2023 12:00 PM EDT Office Visit Family Medicine [address] [place] [phone] Joann You PA-C [address] [place] [address] [place] [address] 02/10/2024 8:57 AM EDT Hospital Encounter OR [facility], Operating Room, [facility] - 4th Floor [address] [place] [address] Tarah Wood, DO [address] [place] [address] 02/10/2024 8:57 AM EDT - 02/10/2024 9:44 AM EDT Surgery OR [facility], Operating Room, [facility] - 4th Floor [address] [place] [address] Tarah Wood, [address] [place] [address] COLONOSCOPY FLEXIBLE PROXIMAL DIAGNOSTIC 03/10/2024 12:30 PM EDT Office Visit Gastroenterology [address] [place] [address] Mandy Mart CRNP [address] [place] [address] Scheduled Procedures Name Priority Associated Diagnoses Date/Ti [...] this encounter Medical Devices Implanted Type Area Hand Engraver Device Identifier Shelf Expiration Date Model / Serial / Lot Dbx 5cc [id number] - [id number] Implanted:Qt y: 1 on 04/22/2022 by Jaspreet Georges MD at OR [facility] Tissue - Human MUSCULOSKELETAL TRANSPLANT FND [id number] 11/22/2023 233005 / [id number] 19 / LOT NA Vitoss Bimodal Foam Pack 2.5cc - [id number] Implanted:Qt y: 1 on 04/22/2022 by Jaspreet Georges MD at OR [facility] ANATOLIY : SPINE [id number] 04/01/2023 210- 190 2 / [id number] / [id number] Vitoss Bimodal Foam Pack 2.5cc - [id number] Implanted:Qt y: 1 on 04/22/2022 by Jaspreet Georges MD at OR [facility] ANATOLIY : SPINE [id number] 09/01/20232101- 190 2 / [id number] / [id number] Anatoliy [place] Screw Set Implanted:Qt y: 10 on 04/22/2022 by Jaspreet Georges MD at OR [facility] N/A: Spine Cervical 7601-100 01 / / [place] 3.5 X 12mm Screw Implanted:Qt y: 4 on 04/22/2022 by Jaspreet Georges MD at OR [facility] N/A: Spine Cervical 7601-035 12 / / [place] 3.5 X 10mm Screw Implanted:Qt y: 3 on 04/22/2022 by Jaspreet Georges MD at OR [facility] N/A: Spine Cervical 7601-035 10 / / [place] 4.0 X 10mm Screw Implanted:Qt y: 1 on 04/22/2022 by Jaspreet Georges MD at OR [facility] N/A: Spine Cervical 7601-040 10 / / Anatoli[place] 4.5 X 22mm Screw Implanted:Qt y: 2 on 04/22/2022 by Jaspreet Georges MD at OR [facility] N/A: Spine Cervical 7601-045 22 / / [place] 3.5 X 75mm [place] Implanted:Qt y: 2 on 04/22/2022 by Jaspreet Georges MD at OR [facility] N/A: Spine Cervical 7601-635 75 [...]
--- OUTSIDE RECORDS SUMMARY | 2024-01-27 23:39 | External Medical Summary | Summary of Care ---
Author Name Unknown Organization [facility] Address [address] [facility] [place] [address] Phone [phone] Care Team Providers Care Adult School Counselor Name Role Phone Unavailable Primary Care Provider Unavailabl e Encounter Details Date Type Department Care Team (Late st Contact Info) Description 11/13/2023 Result Scan Unspecified Department <No scans attached> Allergies Active Allergy Reactions Criticality Noted Date [...] % nasal sprayIndications:Allerg ic rhinitis Administer 1 [place] into nostril 2 times a day. 3 [...] 06/15/2017 Active Vitamin D (Ergocalciferol) 1.25 MG (22422 UT) Oral Capsule Take 1 Cap by [...] was added at 2L on discharge from [facility] 04/26/10 Noct ox CPAP/RA -- <89% [...] (9-67) 12/30/99 - Left lingular biopsy at [facility] s/t frequent URI and nodularity [...] 12/01/2023 11:30 AM EDT Office Visit Cardiology, [address] [place] [id number] Jessie Mendiola CRNP [address] [place] [address] 12/07/2023 2:30 PM EDT Imaging Radiology [address] [place] [address] 12/24/2023 12:00 PM EDT Office Visit Family Medicine [address] [place] [phone] Joann You PA-C [address] [place] [address] [place] [address] 02/10/2024 8:59 AM EDT Hospital Encounter OR [facility], Operating Room, [facility] - 4th Floor [address] [place] [address] Tarah Wood, DO [address] [place] [address] 02/10/2024 8:59 AM EDT - 02/10/2024 9:46 AM EDT Surgery OR [facility], Operating Room, [facility] - [facility] Floor [address] [place] [address] Tarah Wood DO [address] [place] [address] COLONOSCOPY FLEXIBLE PROXIMAL DIAGNOSTIC 03/10/2024 12:30 PM EDT Office Visit Gastroenterology [address] [place] [address] Mandy Mart CRNP [address] [place] [address] Scheduled Procedures Name Priority Associated Diagnoses Date/Ti [...] this encounter Medical Devices Implanted Type Area Maintenance And Repair Worker Device Identifier Shelf Expiration Date Model / Serial / Lot Dbx 5cc [id number] - [id number] Implanted:Qt y: 1 on 04/22/2022 by Jaspreet Georges MD at OR [facility] Tissue - Human MUSCULOSKELETAL TRANSPLANT FND [id number] 11/22/2023 [id number] / [id number] 19 / LOT NA Vitoss Bimodal Foam Pack 2.5cc - [id number] Implanted:Qt y: 1 on 04/22/2022 by Jaspreet Georges MD at OR [facility] ANATOLIY : SPINE [id number] 04/01/20232101- 2 / [id number] / [id number] Vitoss Bimodal Foam Pack 2.5cc - [id number] Implanted:Qt y: 1 on 04/22/2022 by Jaspreet Georges MD at OR [facility] ANATOLIY : SPINE [id number] 09/01/2023 2 / [id number] / [id number] An[place]y [place] Screw Set Implanted:Qt y: 10 on 04/22/2022 by Jaspreet Georges MD at OR [facility] N/A: Spine Cervical 7601-100 01 / / [place] 3.5 X 12mm Screw Implanted:Qt y: 4 on 04/22/2022 by Jaspreet Georges MD at OR [facility] N/A: Spine Cervical 7601-035 12 / / [place] 3.5 X 10mm Screw Implanted:Qt y: 3 on 04/22/2022 by Jaspreet Georges MD at OR [facility] N/A: Spine Cervical 7601-035 10 / / [place] 4.0 X 10mm Screw Implanted:Qt y: 1 on 04/22/2022 by Jaspreet Georges MD at OR [facility] N/A: Spine Cervical 7601-040 10 / / [place] 4.5 X 22mm Screw Implanted:Qt y: 2 on 04/22/2022 by Jaspreet Georges MD at OR [facility] N/A: Spine Cervical 7601-045 22 / / [place] 3.5 X 75mm [place] Implanted:Qt y: 2 on 04/22/2022 by Jaspreet Georges MD at OR [facility] N/A: Spine Cervical 7601-635 75 / / documented as of this encounter Procedures Procedure Name Priority Date/Time Associated Diagnosis Comments OUTSIDE LAB RESULTS 11/14/2023 OUTSIDE LAB RESULTS 11/13/2023 documented in this encounter Results * OUTSIDE LAB RESULTS (11/14/2023) 11/14/2023 No Physician Data Unknown LABORATORY * OUTSIDE LAB RESULTS (11/13/2023) 11/13/2023 No Physician Data Unknown LABORATORY documented in this encounter Advance Directives * [...]
--- OUTSIDE RECORDS SUMMARY | 2024-01-27 23:39 | External Medical Summary | Summary of Care ---
Author Name Unknown Organization [facility] Address [address] [place] [address] Phone [phone] Care Team Providers Care Bone Plant Supervisor Name Role Phone Unavailable Primary Care Provider Unavailabl e Encounter Details Date Type Department Care Team (Late st Contact Info) Description 11/25/2023 Orders Only Family Medicine [address] [phone] Vicki Cadet MD [address] [place] [address] [place] [phone] Allergies Active Allergy Reactions Criticality Noted Date [...] % nasal sprayIndications:Allerg ic rhinitis Administer 1 [place] into nostril 2 times a day. 3 [...] 06/15/2017 Active Vitamin D (Ergocalciferol) 1.25 MG (35034 UT) Oral Capsule Take 1 Cap by [...] Oral Tablet (Isoptin)Indications:At rial fibrillation by electrocardiogram ([facility]) TAKE 1 TABLET BY MOUTH TWICE DAILY [...] was added at 2L on discharge from [facility] 04/26/10 Noct ox CPAP/RA -- <89% [...] (9-67) 12/30/99 - Left lingular biopsy at [facility] s/t frequent URI and nodularity at [...] 12/01/2023 11:30 AM EDT Office Visit Cardiology, [facility] [address] [place] [address] Jessie Mendiola CRNP [address] [place] [address] 12/07/2023 2:30 PM EDT Imaging Radiology [address] [place] [address] 12/24/2023 12:00 PM EDT Office Visit Family Medicine [address] [place] [phone] Joann You PA-C [address] [place] [address] [place] [address] 02/10/2024 8:59 AM EDT Hospital Encounter OR [facility], Operating Room, [facility] - 4th Floor [address] [place] [address] Tarah Wood DO [address] [place] [address] 02/10/2024 8:59 AM EDT - 02/10/2024 9:46 AM EDT Surgery OR [facility], Operating Room, [facility] - 4th Floor [address] [place] [address] Tarah Wood DO [address] [place] [address] COLONOSCOPY FLEXIBLE PROXIMAL DIAGNOSTIC 03/10/2024 12:30 PM EDT Office Visit Gastroenterology [address] [place] [address] Mandy Mart CRNP [address] [place] [address] Scheduled Procedures Name Priority Associated Diagnoses Date/Ti [...] this encounter Medical Devices Implanted Type Area Cone Cleaner Device Identifier Shelf Expiration Date Model / Serial / Lot Dbx 5cc [id number] - [id number] Implanted:Qt y: 1 on 04/22/2022 by Jaspreet Georges MD at OR [facility] Tissue - Human MUSCULOSKELETAL TRANSPLANT FND [id number] 11/22/2023 [id number] / [id number] 19 / LOT NA Vitoss Bimodal Foam Pack 2.5cc - [id number] Implanted:Qt y: 1 on 04/22/2022 by Jaspreet Georges MD at OR [facility] ANATOLIY : SPINE [id number] 04/01/2023 210- 190 2 / [id number] / [id number] Vitoss Bimodal Foam Pack 2.5cc - [id number] Implanted:Qt y: 1 on 04/22/2022 by Jaspreet Georges MD at OR [facility] ANATOLIY : SPINE [id number] 09/01/20232101- 190 2 / [id number] / [id number] [place] Screw Set Implanted:Qt y: 10 on 04/22/2022 by Jaspreet Georges MD at OR [facility] N/A: Spine Cervical 7601-100 01 / / [place] 3.5 X 12mm Screw Implanted:Qt y: 4 on 04/22/2022 by Jaspreet Georges MD at OR [facility] N/A: Spine Cervical 7601-035 12 / / Anatoliy [place] 3.5 X 10mm Screw Implanted:Qt y: 3 on 04/22/2022 by Jaspreet Georges MD at OR [facility] N/A: Spine Cervical 7601-035 10 / / [place] 4.0 X 10mm Screw Implanted:Qt y: 1 on 04/22/2022 by Jaspreet Georges MD at OR [facility] N/A: Spine Cervical 7601-040 10 / / [place] 4.5 X 22mm Screw Implanted:Qt y: 2 on 04/22/2022 by Jaspreet Georges MD at OR [facility] N/A: Spine Cervical 7601-045 22 / / [place] 3.5 X 75mm [place] Implanted:Qt y: 2 on 04/22/2022 by Jaspreet Georges MD at OR [facility] N/A: Spine Cervical 5519-235 75 / / documented as of this encounter Procedures Procedure Name Priority Date/Time Associated Diagnosis Comments BASIC METABOLIC PANEL Routine 11/19/2023 MAGNESIUM Routine 11/19/2023 CBC Routine 11/17/2023 documented in this encounter Results * BASIC METABOLIC PANEL (11/19/2023) CREATININE-OUTS [facility] LAB 0.86 0.6 - 1.2 MG/DL OUTSIDE LAB (SEE SCANNED REPORT) EGFR-OUTSIDE LAB 72.4 ML/MIN OUTSIDE LAB (SEE SCANNED REPORT) POTASSIUM-OUTSI DE LAB 3.8 3.5 - 5.1 MMOL/L OUTSIDE LAB (SEE SCANNED REPORT) GLUCOSE-OUTSIDE LAB 90 70 - 99 MG/DL OUTSIDE LAB (SEE SCANNED REPORT) Blood Venous blood specimen / Unknown 11/19/2023 Rogelio Hodges MD LAB BLOOD ORDERA BLES Performing Organization Address City/[facility]/ZIP Co de Phone Number OUTSIDE LAB (SEE SCANNED REPORT) * MAGNESIUM (11/19/2023) MAGNESIUM-OUTSI DE LAB 1.9 1.7 - 2.4 MG/DL OUTSIDE LAB (SEE SCANNED REPORT) Blood Venous blood specimen / Unknown 11/19/2023 Rogelio Hodges MD LAB BLOOD ORDERA BLES OUTSIDE LAB (SEE SCANNED REPORT) * (ABNORMAL) CBC (11/17/2023) HGB 9.7(A) 12.0 - 16.0 G/DL OUTSIDE LAB (SEE SCANNED REPORT) Blood Venous blood specimen / Unknown 11/17/2023 Opal Conrad MD LAB BLOOD OR DERABLES OUTSIDE LAB (SEE SCANNED REPORT) documented in this encounter Advance Directives * [...]
--- OUTSIDE RECORDS SUMMARY | 2024-01-27 23:40 | External Medical Summary | Summary of Care ---
Author Name Unknown Organization [facility] Address [address] [place] [address] Phone [phone] Care Team Providers Care Crm Analyst Name Role Phone Unavailable Primary Care Provider Unavailabl e Reason for Visit * Reason Onset Date Comments Appointment 11/22/2023 Upper/lower endo scopy Encounter Details Date Type Department Care Team (Late st Contact Info) Description 11/22/2023 Telephone Family Medicine [address] [phone] Vicki Cadet MD [address] [place] [address] [place] [address] Appointment (Upper/lower endoscopy ) Allergies Active Allergy Reactions Criticality Noted [...] as of this encounter (statuses as of 11/22/2023) Medications Medication Sig Dispensed Refills Start Date [...] % nasal sprayIndications:Allerg ic rhinitis Administer 1 [place] into nostril 2 times a day. 3 [...] 06/15/2017 Active Vitamin D (Ergocalciferol) 1.25 MG (43344 UT) Oral Capsule Take 1 Cap by [...] TIMES DAILY . 120 Tablet 05/22/2022 Active Ondansetron 4 MG Oral Tablet DisintegratingIndicatio ns:Nausea Place 1 Tablet on tongue every 8 hours as needed for Nausea. dissolve on tongue. 30 Tablet 01/18/2023 Active Ipratropium-Albuterol 20-100 MCG/ACT Inhalation Aerosol Solution (Combivent Respimat)Indications:As thma, severe persistent INHALE ONE DOSE BY MOUTH FOUR TIMES A DAY NEEDED IN PLACE OF NEBULIZED XOPENEX 4 g 03/09/2023 Active Levalbuterol HCl 1.25 MG/3ML Inhalation [...] Oral Tablet (Isoptin)Indications:At rial fibrillation by electrocardiogram ([facility]) TAKE 1 TABLET BY MOUTH TWICE DAILY 180 Tablet 07/27/2023 Active documented as of this encounter (statuses as of 11/22/2023) Active Problems Problem Noted Date Diagnosed Date [...] was added at 2L on discharge from [facility] 04/26/10 Noct ox CPAP/RA -- <89% 5:12 [...] (9-67) 12/30/99 - Left lingular biopsy at [facility] s/t frequent URI and nodularity at [...] as of this encounter (statuses as of 11/22/2023) Resolved Problems Problem Noted Date Diagnosed Date [...] as of this encounter (statuses as of 11/22/2023) Immunizations Name Administration Dates Next Due Pneumococcal [...] Telephone Encounter - Keisha Shaw OSA - 11/22/2023 2:19 PM EDT Lucinda siddiqui scheduled for upper/lower endoscopy for: Iron deficiency anemia, unspecified iron deficiency anemia type [D50.9] Celiac disease [K90.0] documented in this encounter Plan of Treatment Upcoming Encounters Date Type Department Care Team (Late st Contact Info) Description 12/01/2023 11:30 AM EDT Office Visit Cardiology, [facility] [address] [place] [address] Jessie Mendiola CRNP [address] [place] [address] 12/07/2023 2:30 PM EDT Imaging Radiology [address] [place] [address] 12/24/2023 12:00 PM EDT Office Visit Family Medicine [address] [place] [phone] Joann You PA-C [address] [place] [address] [place] [address] 03/10/2024 12:30 PM EDT Office Visit Gastroenterology [address] [place] [address] Mandy Mart CRNP [address] [place] [address] Scheduled Procedures Name Priority Associated Diagnoses Date/Ti [...] this encounter Medical Devices Implanted Type Area Security Analyst Device Identifier Shelf Expiration Date Model / Serial / Lot Dbx 5cc 132018 - [id number] Implanted:Qt y: 1 on 04/22/2022 by Jaspreet Georges MD at OR [facility] Tissue - Human MUSCULOSKELETAL TRANSPLANT FND [id number] 11/22/2023 [id number] / [id number] 19 / LOT NA Vitoss Bimodal Foam Pack 2.5cc - [id number] Implanted:Qt y: 1 on 04/22/2022 by Jaspreet Georges MD at OR [facility] ANATOLIY : SPINE [id number] 04/01/2023 2 / [id number] / [id number] Vitoss Bimodal Foam Pack 2.5cc - [id number] Implanted:Qt y: 1 on 04/22/2022 by Jaspreet Georges MD at OR [facility] ANATOLIY : SPINE [id number] 09/01/2023 2 / [id number] / [id number] [place] Screw Set Implanted:Qt y: 10 on 04/22/2022 by Jaspreet Georges MD at OR [facility] N/A: Spine Cervical 7601-100 01 / / Anat[place]y [place] 3.5 X 12mm Screw Implanted:Qt y: 4 on 04/22/2022 by Jaspreet Georges MD at OR [facility] N/A: Spine Cervical 7601-035 12 / / Anatoliy [place] 3.5 X 10mm Screw Implanted:Qt y: 3 on 04/22/2022 by Jaspreet Georges MD at OR [facility] N/A: Spine Cervical 7601-035 10 / / [place] 4.0 X 10mm Screw Implanted:Qt y: 1 on 04/22/2022 by Jaspreet Georges MD at OR [facility] N/A: Spine Cervical 7601-040 10 / / [place] 4.5 X 22mm Screw Implanted:Qt y: 2 on 04/22/2022 by Jaspreet Georges MD at OR [facility] N/A: Spine Cervical 7601-045 22 / / Anatoliy [place] 3.5 X 75mm [place] Implanted:Qt y: 2 on 04/22/2022 by Jaspreet Georges MD at OR [facility] N/A: Spine Cervical 7601-635 75 / [...]
--- OUTSIDE RECORDS SUMMARY | 2024-01-27 23:40 | External Medical Summary | Summary of Care ---
Author Name Unknown Organization [facility] Address [address] [facility] [place] [address] Phone [phone] Care Team Providers Care Reconciliation Clerk Name Role Phone Unavailable Primary Care Provider Unavailabl e Reason for Visit * Reason Comments Outpatient Testing Encounter Details Date Type Department Care Team (Latest Contact Info) Description 11/22/2023 2:00 PM EDT Laboratory Laboratory [address] [place] [phone] [facility] Lab [address] [place] [address] Persistent atrial fibrillation (HCC); Iron deficiency anemia, unspecified iron deficiency anemia type; Atrial fibrillation by electrocardiogram (HCC); Celiac disease Allergies Active Allergy Reactions Criticality [...] % nasal sprayIndications:Allerg ic rhinitis Administer 1 [place] into nostril 2 times a day. 3 [...] 06/15/2017 Active Vitamin D (Ergocalciferol) 1.25 MG (03373 UT) Oral Capsule Take 1 Cap by [...] Oral Tablet (Isoptin)Indications:At rial fibrillation by electrocardiogram ([facility]) TAKE 1 TABLET BY MOUTH TWICE DAILY [...] was added at 2L on discharge from [facility] 04/26/10 Noct ox CPAP/RA -- [...] (9-67) 12/30/99 - Left lingular biopsy at [facility] s/t frequent URI and nodularity at [...] 12/01/2023 11:30 AM EDT Office Visit Cardiology, [facility] [address] [place] [address] Jessie Mendiola CRNP [address] [place] [address] 12/07/2023 2:30 PM EDT Imaging Radiology [address] [place] [address] 12/24/2023 12:00 PM EDT Office Visit Family Medicine [address] [place] [phone] Joann You PA-C [address] [place] [address] [place] [address] 03/10/2024 12:30 PM EDT Office Visit Gastroenterology [address] [place] [address] Mandy Mart CRNP [address] [place] [address] Pending Results Name Type Priority Associated Diagnoses Date /Time DIGOXIN LEVEL Lab Routine Persistent atrial fibrillation (HCC) 11/22/2023 2:01 PM EDT CBC Lab Routine Iron deficiency anemia, unspecified iron deficiency anemia type 11/22/2023 2:01 PM EDT BASIC METABOLIC PANEL Lab Routine Atrial fibrillation by electrocardiogram (HCC) Iron deficiency anemia, unspecified iron deficiency anemia type Celiac disease 11/22/2023 2:01 PM EDT Scheduled Procedures Name Priority Associated [...] this encounter Medical Devices Implanted Type Area Commodity Specialist Device Identifier Shelf Expiration Date Model / Serial / Lot Dbx 5cc 329046 - [id number] Implanted:Qt y: 1 on 04/22/2022 by Jaspreet Georges MD at OR [facility] Tissue - Human MUSCULOSKELETAL TRANSPLANT FND [id number] 11/22/2023 [id number] / [id number] 19 / LOT NA Vitoss Bimodal Foam Pack 2.5cc - [id number] Implanted:Qt y: 1 on 04/22/2022 by Jaspreet Georges MD at OR [facility] ANATOLIY : SPINE [id number] 04/01/2023 2 / [id number] / [id number] Vitoss Bimodal Foam Pack 2.5cc - [id number] Implanted:Qt y: 1 on 04/22/2022 by Jaspreet Georges MD at OR [facility] ANATOLIY : SPINE [id number] 09/01/2023 2 / [id number] / [id number] [place] Screw Set Implanted:Qt y: 10 on 04/22/2022 by Jaspreet Georges MD at OR [facility] N/A: Spine Cervical 7601-100 01 / / [place] 3.5 X 12mm Screw Implanted:Qt y: 4 on 04/22/2022 by Jaspreet Georges MD at OR [facility] N/A: Spine Cervical 7601-035 12 / / [place] 3.5 X 10mm Screw Implanted:Qt y: 3 on 04/22/2022 by Jaspreet Georges MD at OR [facility] N/A: Spine Cervical 7601-035 10 / / [place] 4.0 X 10mm Screw Implanted:Qt y: 1 on 04/22/2022 by Jaspreet Georges MD at OR [facility] N/A: Spine Cervical 7601-040 10 / / [place] 4.5 X 22mm Screw Implanted:Qt y: 2 on 04/22/2022 by Jaspreet Georges MD at OR [facility] N/A: Spine Cervical 7601-045 22 / / [place] 3.5 X 75mm [place] Implanted:Qt y: 2 on 04/22/2022 by Jaspreet Georges MD at OR [facility] N/A: Spine Cervical 7601-635 75 / / documented as of this encounter Visit Diagnoses Diagnosis Persistent atrial fibrillation (HCC) Atrial fibrillation Iron deficiency anemia, unspecified iron deficiency anemia type Atrial fibrillation by electrocardiogram (HCC) Atrial fibrillation Celiac disease documented in this encounter Advance Directives * [...]
--- OUTSIDE RECORDS SUMMARY | 2024-01-27 23:40 | External Medical Summary ---
Author Name Unknown Address Unknown Organization K01:LABORATORY [facility] - [facility] [address] [place] [address] Laboratory Report Ordering Provider Test Date Status RADHA PIRES 11/22/2023 14:01:31 Final Observation Date Value Abnormality Reference (Units ) Status BUN 11/22/2023 14:01:31 14 6-20 (mg/dL) Final Creatinine 11/22/2023 14:01:31 0.8 0.5-1.0 (mg/dL) Final Glomerular filtration rate/1.73 sq M.predicted [Volume Rate/Area] in Serum, Plasma or Blood by Creatinine-based formula (CKD-EPI) 11/22/2023 14:01:31 83 >=60 (mL/min) Final eGFR is calculated based on the CKD-EPI 2020 equation Sodium 11/22/2023 14:01:31 141 135-146 (m mol/L) Final Potassium 11/22/2023 14:01:31 4.6 3.5-5.1 (m mol/L) Final Cl 11/22/2023 14:01:31 107 98-107 (mm ol/L) Final CO2 11/22/2023 14:01:31 22 22-32 (mmo l/L) Final Anion gap 11/22/2023 14:01:31 12 7-15 (mmol /L) Final Glucose 11/22/2023 14:01:31 43 Below lower panic li mits 70-120 (mg/dL) Final Calcium 11/22/2023 14:01:31 10.1 8.4-10.2 ( mg/dL) Final Performing Location LABORATORY [facility] - [address] [place] [address]
--- OUTSIDE RECORDS SUMMARY | 2024-01-27 23:40 | External Medical Summary | Summary of Care ---
Author Name Unknown Organization [facility] [address] [facility] [facility] [address] Phone [phone] Care Team Providers Care Wire Temperer Name Role Phone Unavailable Primary Care Provider Unavailabl e Reason for Visit * Reason Onset Date Comments Hospital Follow-Up 11/22/2023 [facility] at [facility] Encounter Details Date Type Department Care Team (Late st Contact Info) Description 11/22/2023 Telephone [address] [place] [address] Lorenza Marquez, [facility] Hospital Follow-Up (Fozia at [facility]) Allergies Active Allergy Reactions Criticality Noted Date [...] % nasal sprayIndications:Kishore rgic rhinitis Administer 1 [place] into nostril 2 times a day. 3 Bottle 3 5 Active oxygen GASIndications:Hypoxe ant 1 LPM bled through CPAP 4 cwp during hours of sleep (10 hours per day) 1 Each 0 6 Active montelukast (SINGULAIR) 10 MG TabletIndications:Ast hma, severe persistent TAKE ONE TABLET BY MOUTH ONE TIME DAILY 90 Tab 1 7 Active levothyroxine (LEVOXYL) 100 MCG TabletIndications:Hyp othyroidism TAKE ONE TABLET BY MOUTH EVERY DAY 90 Tab 1 7 Active Vitamin D (Ergocalciferol) 1.25 MG (12227 UT) Oral Capsule Take 1 Cap by mouth once a week. 8 Cap 1 Active Amitriptyline HCl 75 MG Oral Tablet (Elavil)Indications:M igraine without aura TAKE ONE TABLET BY MOUTH NIGHTLY AT BEDTIME 90 Tablet 3 2 Active Fluticasone-Salmetero l 250-50 MCG/DOSE Inhalation Aerosol [...] 2 Active Topiramate 100 MG Oral Tablet (topAMAX)Indications: Migraine without aura Take by mouth 1 Tablet in the morning AND 1 Tablet before bedtime. 180 Tablet 3 2 Active Cimetidine 400 MG Oral Tablet (Tagamet)Indications: [...] 2 Active Sucralfate 1 GM Oral Tablet (Carafate)Indications :History of IBS Take 1 Tablet (1 g) by mouth in the morning and 1 Tablet (1 g) at noon and 1 Tablet (1 g) in the evening and 1 Tablet (1 g) before bedtime. TAKE ONE TABLET BY MOUTH FOUR TIMES DAILY . 120 Tablet 5 2 Active Ondansetron 4 MG Oral Tablet DisintegratingIndicat [...] 3 Active Ondansetron HCl 4 MG Oral TabletIndications:Vir [...] MOUTH TWICE DAILY 180 Tablet 4 Active Emgality 120 MG/ML Subcutaneous Solution Auto-injector (Galcanezumab-gnlm)In dications:Chronic migraine without aura without status migrainosus, not intractable Inject 1 mL under the skin Every Month. 1 mL 5 3 024 Discontinued documented as of this encounter [...] added at 2L on discharge from [facility] 04/26/10 Noct ox CPAP/RA -- <89% 5:12 [...] (9-67) 12/30/99 - Left lingular biopsy at [facility] s/t frequent URI and nodularity at lingula [...] encounter Miscellaneous Notes * Telephone Encounter - Lorenza Marquez RN - 11/22/2023 1:40 PM EDT Transitions of Care Note Reason for Referral:Recent Admission Phone visit for follow up: fozia Admitted to: [facility], Date: 11.13.23 Discharged to: home , Date: 11.19.23 Diagnosis driving hospitalization: SYNCOPE Patient was scheduled and seen today for hospital discharge. FOZIA call not indicated due to patient having an appointment today and seen. documented in this encounter Plan of Treatment Scheduled Procedures Name Priority Associated Diagnoses Date/Ti ri COLONOSCOPY FLEXIBLE PROXIMAL DIAGNOSTIC Recall Special screening [...] 09/29/2023, 0 10/2022, 10/23/2020, Additional history exists Lipid Panel [...] this encounter Medical Devices Implanted Type Area Brand Marketing Coordinator Device Identifier Shelf Expiration Date Model / Serial / Lot Dbx 5cc [id number] - [id number] Implanted:Qt y: 1 on 04/22/2022 by Jaspreet Georges MD at [facility] Tissue - Human MUSCULOSKELETAL TRANSPLANT FND [id number] 11/22/2023 [id number] / [id number] / LOT NA Vitoss Bimodal Foam Pack 2.5cc - [id number] Implanted:Qt y: 1 on 04/22/2022 by Jaspreet Georges MD at [facility] ANATOLIY : SPINE [id number] 04/01/20232101- 190 2 / [id number] / [id number] Vitoss Bimodal Foam Pack 2.5cc - [id number] Implanted:Qt y: 1 on 04/22/2022 by Jaspreet Georges MD at [facility] ANATOLIY : SPINE [id number] 09/01/20232101- 190 2 / [id number] / [id number] [place] Screw Set Implanted:Qt y: 10 on 04/22/2022 by Jaspreet Georges MD at [facility] N/A: Spine Cervical 7601-100 01 / / [place] 3.5 X 12mm Screw Implanted:Qt y: 4 on 04/22/2022 by Jaspreet Georges MD at OR [facility] N/A: Spine Cervical 7601-035 12 / / [place] 3.5 X 10mm Screw Implanted:Qt y: 3 on 04/22/2022 by Jaspreet Georges MD at [facility] N/A: Spine Cervical 7601-035 10 / / [place] 4.0 X 10mm Screw Implanted:Qt y: 1 on 04/22/2022 by Jaspreet Georges MD at OR [facility] N/A: Spine Cervical 7601-040 10 / / [place] 4.5 X 22mm Screw Implanted:Qt y: 2 on 04/22/2022 by Jaspreet Georges MD at [facility] N/A: Spine Cervical 7601-045 22 / / [place] 3.5 X 75mm [place] Implanted:Qt y: 2 on 04/22/2022 by Jaspreet Georges MD at [facility] N/A: Spine Cervical 7601-635 75 / / documented as of this encounter Advance Directives * Full Code (Latest Code Status on File) Date Activated Date Inactivated Comments 04/22/2022 1:27 PM 04/27/2022 4:07 PM This orde r reflects the patients wishes and were consensually [...]
--- OUTSIDE RECORDS SUMMARY | 2024-01-27 23:40 | External Medical Summary | Summary of Care ---
Author Name Unknown Organization [facility] Address [address] [facility] [place] [address] Phone [phone] Care Team Providers Care Charging Car Operator Name Role Phone Unavailable Primary Care Provider Unavailabl e Encounter Details Date Type Department Care Team (Late st Contact Info) Description 11/23/2023 Telephone Family Practice [facility] [address] [place] [address] Stefany Belcher MD [address] [place] [address] Allergies Active Allergy Reactions Criticality Noted Date [...] as of this encounter (statuses as of 11/23/2023) Medications Medication Sig Dispensed Refills Start Date [...] % nasal sprayIndications:Allerg ic rhinitis Administer 1 [place] into nostril 2 times a day. 3 [...] 06/15/2017 Active Vitamin D (Ergocalciferol) 1.25 MG (18289 UT) Oral Capsule Take 1 Cap by [...] Oral Tablet (Isoptin)Indications:At rial fibrillation by electrocardiogram ([facility]) TAKE 1 TABLET BY MOUTH TWICE DAILY 180 Tablet 07/27/2023 Active documented as of this encounter (statuses as of 11/23/2023) Active Problems Problem Noted Date Diagnosed Date [...] added at 2L on discharge from [facility] 04/26/10 Noct ox CPAP/RA -- <89% [...] - Left lingular biopsy at [facility] s/t frequent URI and nodularity at lingula [...] as of this encounter (statuses as of 11/23/2023) Resolved Problems Problem Noted Date Diagnosed Date [...] as of this encounter (statuses as of 11/23/2023) Immunizations Name Administration Dates Next Due Pneumococcal [...] encounter Miscellaneous Notes * Telephone Encounter - Vicki Cadet MD - 11/23/2023 8:21 AM EDT Noted and reviewed * Telephone Encounter - Stefany Belcher MD - 11/23/2023 8:04 AM EDT TigerText for critical result overnight. Glucose 43, drawn yesterday at 2:01pm. Patient not on any hypoglycemic medications. Patient seen in clinic yesterday with stable vitals. As had likely eaten at least one meal since, did not wake patient up to get clinical update. documented in this encounter Plan of Treatment Upcoming Encounters Date Type Department Care Team (Late st Contact Info) Description 12/01/2023 11:30 AM EDT Office Visit Cardiology, [facility] [address] [place] [address] Jessie Mendiola CRNP [address] [address] 12/07/2023 2:30 PM EDT Imaging Radiology [address] [place] [address] 12/24/2023 12:00 PM EDT Office Visit Family Medicine [address] [place] [phone] Joann You PA-C [address] [place] [address] [place] [address] 03/10/2024 12:30 PM EDT Office Visit Gastroenterology [address] [place] [address] Mandy Mart CRNP [address] [place] [address] Scheduled Procedures Name Priority Associated Diagnoses Date/Ti [...] this encounter Medical Devices Implanted Type Area Magnetic Tester Device Identifier Shelf Expiration Date Model / Serial / Lot Dbx 5cc [id number] - [id number] Implanted:Qt y: 1 on 04/22/2022 by Jaspreet Georges MD at OR [facility] Tissue - Human MUSCULOSKELETAL TRANSPLANT FND [id number] 11/22/2023 [id number] / [id number] / LOT NA Vitoss Bimodal Foam Pack 2.5cc - [id number] Implanted:Qt y: 1 on 04/22/2022 by Jaspreet Georges MD at OR [facility] ANATOLIY : SPINE [id number] 04/01/20232101- 190 2 / [id number] / [id number] Vitoss Bimodal Foam Pack 2.5cc - [id number] Implanted:Qt y: 1 on 04/22/2022 by Jaspreet Georges MD at OR [facility] ANATOLIY : SPINE [id number] 09/01/20232101- 2 / [id number] / [id number] [place] Screw Set Implanted:Qt y: 10 on 04/22/2022 by Jaspreet Georges MD at OR [facility] N/A: Spine Cervical 7601-100 01 / / [place] 3.5 X 12mm Screw Implanted:Qt y: 4 on 04/22/2022 by Jaspreet Georges MD at OR [facility] N/A: Spine Cervical 7601-035 12 / / [place] 3.5 X 10mm Screw Implanted:Qt y: 3 on 04/22/2022 by Jaspreet Georges MD at OR [facility] N/A: Spine Cervical 7601-035 10 / / [place] 4.0 X 10mm Screw Implanted:Qt y: 1 on 04/22/2022 by Jaspreet Georges MD at OR [facility] N/A: Spine Cervical 7601-040 10 / / [place] 4.5 X 22mm Screw Implanted:Qt y: 2 on 04/22/2022 by Jaspreet Georges MD at OR [facility] N/A: Spine Cervical 7601-045 22 / / [place] 3.5 X 75mm [place] Implanted:Qt y: 2 on 04/22/2022 by Jaspreet Georges MD at OR [facility] N/A: Spine Cervical 5067-592 75 / / documented as of this [...]
--- OUTSIDE RECORDS SUMMARY | 2024-01-27 23:40 | External Medical Summary | Summary of Care ---
Author Name Unknown Organization [facility] Address [address] [place] [address] Phone [phone] Care Team Providers Care Automatic Punch Press Operator Name Role Phone Unavailable Primary Care Provider Unavailabl e Reason for Visit * Reason Onset Date Comments Appointment 11/22/2023 Upper/lower endo scopy Encounter Details Date Type Department Care Team (Late st Contact Info) Description 11/22/2023 Telephone Family Medicine [address] [phone] Vicki Cadet MD [address] [place] [address] [place] [address] Appointment (Upper/lower endoscopy ) Allergies Active Allergy [...] % nasal sprayIndications:Allerg ic rhinitis Administer 1 [place] into nostril 2 times a day. 3 [...] 06/15/2017 Active Vitamin D (Ergocalciferol) 1.25 MG (64952 UT) Oral Capsule Take 1 Cap by [...] Oral Tablet (Isoptin)Indications:At rial fibrillation by electrocardiogram ([facility]) TAKE 1 TABLET BY MOUTH [...] added at 2L on discharge from [facility] 04/26/10 Noct ox CPAP/RA -- <89% [...] (9-67) 12/30/99 - Left lingular biopsy at [facility] s/t frequent URI and nodularity at [...] encounter Miscellaneous Notes * Telephone Encounter - Poonam Medel OSA - 11/23/2023 10:45 AM EDT Scheduled CYNTHIA Phillips 11/23/2023 10:46 AM * Telephone Encounter - Keisha Shaw OSA - 11/22/2023 2:19 PM EDT Lucinda siddiqui scheduled for upper/lower endoscopy for: Iron deficiency anemia, unspecified iron deficiency anemia type [D50.9] Celiac disease [K90.0] documented in this encounter Plan of Treatment Upcoming Encounters Date Type Department Care Team (Latest Contact Info) Description 12/01/2023 11:30 AM EDT Office Visit Cardiology, [facility] [address] [place] [address] Jessie Mendiola CRNP [address] [place] [address] 12/07/2023 2:30 PM EDT Imaging Radiology [address] [place] [address] 12/24/2023 12:00 PM EDT Office Visit Family Medicine [address] [place] [phone] Joann You PA-C [address] [place] [address] [place] [address] 02/10/2024 8:59 AM EDT Hospital Encounter OR [facility], Operating Room, [facility] - 4th Floor [address] [place] [address] [place] [address] Tarah Wood DO [address] [place] [address] 02/10/2024 8:59 AM EDT - 02/10/2024 9:46 AM EDT Surgery OR [facility], Operating Room, [facility] - 4th Floor [address] [place] [address] Tarah Wood DO [address] [place] [address] COLONOSCOPY FLEXIBLE PROXIMAL DIAGNOSTIC 03/10/2024 12:30 PM EDT Office Visit Gastroenterology [address] [place] [address] Madny Mart CRNP [address] [place] [address] Scheduled Procedures Name Priority Associated Diagnoses Date/Ti [...] this encounter Medical Devices Implanted Type Area Belt And Link Shop Supervisor Device Identifier Shelf Expiration Date Model / Serial / Lot Dbx 5cc [id number] - [id number] Implanted:Qt y: 1 on 04/22/2022 by Jaspreet Georges MD at [facility] Tissue - Human MUSCULOSKELETAL TRANSPLANT FND [id number] 11/22/2023 [id number] / [id number] 19 / LOT NA Vitoss Bimodal Foam Pack 2.5cc - [id number] Implanted:Qt y: 1 on 04/22/2022 by Jaspreet Georges MD at [facility] ANATOLIY : SPINE [id number] 04/01/2023 2102- 190 2 / [id number] / [id number] Vitoss Bimodal Foam Pack 2.5cc - [id number] Implanted:Qt y: 1 on 04/22/2022 by Jaspreet Georges MD at [facility] ANATOLIY : SPINE [id number] 09/01/2023 2102- 190 2 / [id number] / [id number] Anatoliy [place] Screw Set Implanted:Qt y: 10 on 04/22/2022 by Jaspreet Georges MD at OR [facility] N/A: Spine Cervical 7601-100 [place] 3.5 X 12mm Screw Implanted:Qt y: 4 on 04/22/2022 by Jaspreet Georges MD at OR [facility] N/A: Spine Cervical 7601-035 12 / / [place] 3.5 X 10mm Screw Implanted:Qt y: 3 on 04/22/2022 by Jaspreet Georges MD at OR [facility] N/A: Spine Cervical 7601-035 10 / / [place] 4.0 X 10mm Screw Implanted:Qt y: 1 on 04/22/2022 by Jaspreet Georges MD at OR [facility] N/A: Spine Cervical 7601-040 10 / / [place] 4.5 X 22mm Screw Implanted:Qt y: 2 on 04/22/2022 by Jaspreet Georges MD at OR [facility] N/A: Spine Cervical 7601-045 22 / / [place] 3.5 X 75mm [place] Implanted:Qt y: 2 on 04/22/2022 by Jaspreet Georges MD at OR [facility] N/A: Spine Cervical 7601-635 75 / [...]
--- OUTSIDE RECORDS SUMMARY | 2024-01-27 23:40 | External Medical Summary | Summary of Care ---
Author Name Unknown Organization [facility] Address [address] [facility] [place] [address] Phone [phone] Care Team Providers Care Brand Recorder Name Role Phone Unavailable Primary Care Provider Unavailabl e Reason for Visit * Reason Comments Outpatient Testing Encounter Details Date Type Department Care Team (Latest Contact Info) Description 11/22/2023 2:00 PM EDT Laboratory Laboratory [address] [place] [phone] [facility] [address] [place] [address] Persistent atrial fibrillation (HCC); Iron deficiency anemia, [...] % nasal sprayIndications:Allerg ic rhinitis Administer 1 [place] into nostril 2 times a day. 3 [...] 06/15/2017 Active Vitamin D (Ergocalciferol) 1.25 MG (68999 UT) Oral Capsule Take 1 Cap by [...] Oral Tablet (Isoptin)Indications:At rial fibrillation by electrocardiogram ([facility]) TAKE 1 TABLET BY MOUTH TWICE [...] was added at 2L on discharge from [facility] 04/26/10 Noct ox CPAP/RA -- [...] No 04/22/2022 documented as of this encounter Progress Notes * Vicki Cadet MD - 11/23/2023 9:21 AM EDT Lab results are within normal limits; except for a low glucose reading. I suspect this is due to transportation and not "real", but please ask if she is feeling well and recommend repeating glucose level (random). documented in this encounter Miscellaneous Notes * Addendum Note - Vicki Cadet MD - 11/23/2023 9:24 AM EDT Addended by: VICKI NGUYEN on: 11/23/2023 09:24 AM Modules accepted: Orders * Result Encounter Note - Anna Nesbitt CRNP - 11/23/2023 7:32 AM EDT Dig level is okay. Critical lab results for low blood sugar. It appears that PCP was notified-- can we make sure the patient is aware and if any interventions took place. She did recently have a hospitalization for weakness and syncope. Possibly low blood sugars contributing. Would recommend following up with her PCP. documented in this encounter Plan of Treatment Upcoming Encounters Date Type Department Care Team (Late st Contact Info) Description 12/01/2023 11:30 AM EDT Office Visit Cardiology, [facility] [address] [address] Jessie Mendiola CRNP [address] [place] [address] 12/07/2023 2:30 PM EDT Imaging Radiology [address] [place] [address] 12/24/2023 12:00 PM EDT Office Visit Family Medicine [address] [place] [address] Joann You PA-C [address] [place] [address] [place] [address] 03/10/2024 12:30 PM EDT Office Visit Gastroenterology [address] [place] [address] Mandy Mart CRNP [address] [place] [address] Scheduled Orders Name Type Priority Associated Diagnoses Orde r Schedule GLUCOSE Lab Routine Celiac disease Expected: 11/23/2023 (Approximate), Expires: 11/22/2024 Scheduled Procedures Name Priority Associated Diagnoses Date/Ti [...] this encounter Medical Devices Implanted Type Area Ways Operator Device Identifier Shelf Expiration Date Model / Serial / Lot Dbx 5cc [id number] - [id number] Implanted:Qt y: 1 on 04/22/2022 by Jaspreet Georges MD at OR [facility] Tissue - Human MUSCULOSKELETAL TRANSPLANT FND [id number] 11/22/2023 [id number] / [id number] / LOT NA Vitoss Bimodal Foam Pack 2.5cc - [id number] Implanted:Qt y: 1 on 04/22/2022 by Jaspreet Georges MD at OR [facility] ANATOLIY : SPINE [id number] 04/01/2023 2102- 190 2 / [id number] / [id number] Vitoss Bimodal Foam Pack 2.5cc - [id number] Implanted:Qt y: 1 on 04/22/2022 by Jaspreet Georges MD at OR [facility] ANATOLIY : SPINE [id number] 09/01/2023 2102- 190 2 / [id number] / [id number] [place] Screw Set Implanted:Qt y: 10 on 04/22/2022 by Jaspreet Georges MD at OR [facility] N/A: Spine Cervical 7601-100 [place] 3.5 X 12mm Screw Implanted:Qt y: 4 on 04/22/2022 by Jaspreet Georges MD at OR [facility] N/A: Spine Cervical 7601-035 12 / / [place] 3.5 X 10mm Screw Implanted:Qt y: 3 on 04/22/2022 by Jaspreet Georges MD at OR [facility] N/A: Spine Cervical 7601-035 10 / / [place] 4.0 X 10mm Screw Implanted:Qt y: 1 on 04/22/2022 by Jaspreet Georges MD at OR [facility] N/A: Spine Cervical 7601-040 10 / / [place] 4.5 X 22mm Screw Implanted:Qt y: 2 on 04/22/2022 by Jaspreet Georges MD at OR [facility] N/A: Spine Cervical 7601-045 22 / / [place] 3.5 X 75mm [place] Implanted:Qt y: 2 on 04/22/2022 by Jaspreet Georges MD at OR [facility] N/A: Spine Cervical 7601-635 75 / / documented as of this encounter Procedures Procedure Name Priority Date/Time Associated Diagnosis Comments BASIC METABOLIC PANEL Routine 11/22/2023 2:01 PM EDT Atrial fibrillation by electrocardiogram (HCC) Iron deficiency anemia, unspecified iron deficiency anemia type Celiac disease CBC Routine 11/22/2023 2:01 PM EDT Iron deficiency anemia, unspecified iron deficiency anemia type DIGOXIN LEVEL Routine 11/22/2023 2:01 PM EDT Persistent atrial fibrillation (HCC) documented in this encounter Results * (ABNORMAL) BASIC METABOLIC PANEL (11/22/2023 2:01 PM EDT) BUN 14 6 - 20 mg/dL 11/23/2023 1:52 AM EDT [facility] Creatinine 0.8 0.5 - 1.0 mg/dL 11/23/2023 1:52 AM EDT [facility] Estimated Glomerular Filtration Rate 83 >=60 mL/min 11/23/2023 1:52 AM EDT [facility] Comment:eGFR is calculated b ased on the CKD-EPI 2020 equation Sodium 141 135 - 146 mmol/L 11/23/2023 1:52 AM EDT [facility] Potassium 4.6 3.5 - 5.1 mmol/L 11/23/2023 1:52 AM EDT [facility] Chloride 107 98 - 107 mmol/L 11/23/2023 1:52 AM EDT [facility] CO2 22 22 - 32 mmol/L 11/23/2023 1:52 AM EDT [facility] Anion Gap 12 7 - 15 mmol/L 11/23/2023 1:52 AM EDT [facility] Glucose 43(LL) 70 - 120 mg/dL 11/23/2023 1:52 AM EDT [facility] Calcium 10.1 8.4 - 10.2 mg/dL 11/23/2023 1:52 AM EDT [facility] Blood Venous blood specimen / Unknown Venipuncture / Unknown 11/22/2023 2:01 PM EDT 11/22/2023 2:04 PM EDT Vicki Garza MD LAB BLOOD ORDERABLES [facility] [address] [place] [address] * CBC (11/22/2023 2:01 PM EDT) WBC 8.38 4.00 - 10.80 K/uL 11/23/2023 12:24 AM EDT [facility] RBC 5.32 3.85 - 5.15 M/uL 11/23/2023 12:24 AM EDT [facility] HGB 12.1 12.0 - 15.3 g/dL 11/23/2023 12:24 AM EDT [facility] HCT 43.8 36.0 - 45.2 % 11/23/2023 12:24 AM EDT [facility] MCV 82.3 81.5 - 97.5 fL 11/23/2023 12:24 AM EDT [facility] MCH 22.7 27.0 - 34.0 pg 11/23/2023 12:24 AM EDT [facility] MCHC 27.6 32.0 - 36.0 g/dL 11/23/2023 12:24 AM EDT [facility] RDW 22.9 11.5 - 15.5 % 11/23/2023 12:24 AM EDT LABORATORY C PLT 348 140 - 400 K/uL 11/23/2023 12:24 AM EDT LABORATORY [facility] MPV 11.6 6.6 - 11.1 fL 11/23/2023 12:24 AM EDT LABORATORY [facility] nRBCs 0 <=0 /100 WBCs 11/23/2023 12:24 AM EDT LABORATORY C Blood Venous blood specimen / Unknown Venipuncture / Unknown 11/22/2023 2:01 PM EDT 11/22/2023 2:04 PM EDT Vicki Garza MD LAB BLOOD ORDERABLES Performing Organization Address City/[facility] Co de Phone Number LABORATORY [facility] [address] [place] [address] * (ABNORMAL) DIGOXIN LEVEL (11/22/2023 2:01 PM EDT) Digoxin Level <0.4(L) 0.5 - 1.1 ng/mL 11/23/2023 1:52 AM EDT [facility] Blood Venous blood specimen / Unknown Venipuncture / Unknown 11/22/2023 2:01 PM EDT 11/22/2023 2:04 PM EDT Narrative LABORATORY C - 11/23/2023 1:52 AM EDT Recommended trough therapeutic ranges: 0.5 to 0.8 for heart failure 0.5 to 1.1 for atrial fibrillation Anna FALCON LAB BLOOD ORDER [place] Performing Organization Address City/[facility] de Phone Number LABORATORY [facility] [address], [place] [phone] documented in this encounter Visit Diagnoses Diagnosis Persistent atrial [...]
--- OUTSIDE RECORDS SUMMARY | 2024-01-27 23:40 | External Medical Summary | Summary of Care ---
Author Name Unknown Organization [facility] Address [address] [place] [address] Phone [phone] Care Team Providers Care Trim Mechanic Name Role Phone Unavailable Primary Care Provider Unavailabl e Encounter Details Date Type Department Care Team (Late st Contact Info) Description 11/17/2023 Telephone Cardiology, [facility] [address] [place] [id number] Anna Nesbitt CRNP [address] [place] [address] Allergies Active Allergy Reactions Criticality Noted Date [...] as of this encounter (statuses as of 11/18/2023) Medications Medication Sig Dispensed Refills Start Date [...] % nasal sprayIndications:Allerg ic rhinitis Administer 1 [place] into nostril 2 times a day. 3 [...] 06/15/2017 Active Vitamin D (Ergocalciferol) 1.25 MG (68714 UT) Oral Capsule Take 1 Cap by [...] DAILY . 120 Tablet 5 05/22/2022 Active Emgality 120 MG/ML Subcutaneous Solution Auto-injector (Galcanezumab-gnabril)Shelley cations:Chronic migraine without aura without status migrainosus, [...] as of this encounter (statuses as of 11/18/2023) Active Problems Problem Noted Date Diagnosed Date [...] was added at 2L on discharge from [facility] 04/26/10 Noct ox CPAP/RA -- [...] (9-67) 12/30/99 - Left lingular biopsy at [facility] s/t frequent URI and nodularity at lingula [...] as of this encounter (statuses as of 11/18/2023) Resolved Problems Problem Noted Date Diagnosed Date [...] as of this encounter (statuses as of 11/18/2023) Immunizations Name Administration Dates Next Due Pneumococcal [...] encounter Miscellaneous Notes * Telephone Encounter - Anna Nesbitt CRNP - 11/17/2023 10:44 AM EDT Patient admitted to [facility] on 11/13/2023. Anticipate Discharge within the next 24 to 48 hours. Scheduling: Please assist with [facility] follow-up within the next 4-6 weeks. Patient is considered New, known to the undersigned and Dr. Girard inpatient. Any AP appropriate. If scheduling with AP please allow 60 minutes for this appointment and label appt [facility]. Thanks, TERRIE Maajno Cardiology progress note 11/17/2023: IMPRESSION: 63 year [...] Team (Late st Contact Info) Description 11/22/2023 1:20 PM EDT Office Visit Family Medicine [address] [phone] Vicki Cadet MD [address] [place] [address] [place] [address] Scheduled Orders Name Type Priority Associated Diagnoses Orde r Schedule DIGOXIN LEVEL Lab Routine Persistent atrial fibrillation (HCC) Expected: 11/18/2023, Expires: 11/17/2024 Scheduled Procedures Name Priority Associated Diagnoses Date/Ti [...] this encounter Medical Devices Implanted Type Area Molding And Trim Installer Device Identifier Shelf Expiration Date Model / Serial / Lot Dbx 5cc [id number] - [id number] Implanted:Qt y: 1 on 04/22/2022 by Jaspreet Georges MD at [facility] Tissue - Human MUSCULOSKELETAL TRANSPLANT FND [id number] 11/22/2023 [id number] / [id number] 19 / LOT NA Vitoss Bimodal Foam Pack 2.5cc - [id number] Implanted:Qt y: 1 on 04/22/2022 by Jaspreet Georges MD at [facility] ANATOLIY : SPINE [id number] 04/01/20232101- 2 / [id number] / [id number] Vitoss Bimodal Foam Pack 2.5cc - [id number] Implanted:Qt y: 1 on 04/22/2022 by Jaspreet Georges MD at [facility] ANATOLIY : SPINE [id number] 09/01/20232101- 2 / [id number] / [id number] An[place]y [place] Screw Set Implanted:Qt y: 10 on 04/22/2022 by Jaspreet Georges MD at [facility] N/A: Spine Cervical 7601-100 01 / / [place] 3.5 X 12mm Screw Implanted:Qt y: 4 on 04/22/2022 by Jaspreet Georges MD at [facility] N/A: Spine Cervical 7601-035 12 / / [place] 3.5 X 10mm Screw Implanted:Qt y: 3 on 04/22/2022 by Jaspreet Georges MD at [facility] N/A: Spine Cervical 7601-035 10 / / [place] 4.0 X 10mm Screw Implanted:Qt y: 1 on 04/22/2022 by Jaspreet Georges MD at [facility] N/A: Spine Cervical 7601-040 10 / / [place] 4.5 X 22mm Screw Implanted:Qt y: 2 on 04/22/2022 by Jaspreet Georges MD at [facility] N/A: Spine Cervical 7601-045 22 / / [place] 3.5 X 75mm [place] Implanted:Qt y: 2 on 04/22/2022 by Jaspreet Georges MD at [facility] N/A: Spine Cervical 7601-635 75 / / documented as of this encounter Visit Diagnoses Diagnosis Paroxysmal atrial fibrillation (HCC)- Primary Atrial fibrillation Persistent atrial fibrillation (HCC) Atrial fibrillation documented in this encounter Advance Directives Latest [...] the patient have Health Care Power of Curator [employer]? No
--- OUTSIDE RECORDS SUMMARY | 2024-01-27 23:40 | External Medical Summary ---
Author Name Unknown Address Unknown Organization K01:[facility] [place] - [address] [place] [address] Laboratory Report Ordering Provider Test Date Status JOSE MIGUEL SHELLEY 11/22/2023 14:01:31 Final Recommended trough therapeut ic ranges:
0.5 to 0.8 for heart failure
0.5 to 1.1 for atrial fibrillation Observation Date Value Abnormality Reference (Units ) Status Digoxin 11/22/2023 14:01:31 <0.4 Below low normal 0.5 -1.1 (ng/mL) Final Performing Location [facility] [place] - [address] [place] [address]
--- OUTSIDE RECORDS SUMMARY | 2024-01-27 23:40 | External Medical Summary | Summary of Care ---
Author Name Unknown Organization [facility] Address [address] [facility] [place] [address] Phone [phone] Care Team Providers Care Energy Consultant Name Role Phone Unavailable Primary Care Provider Unavailabl e Reason for Referral * Evaluate & Treat - Unlimited Visits (Within 10 days (routine)) - Pending Review Specialty Diagnoses / Procedures Referred By Contact Referred To Contact Cardiovascular Medicine / Cardiology Diagnoses Atrial fibrillation by electrocardiogram (HCC) Vicki Cadet MD [address] [place] [address] [place] [address] Referral ID Status Reason Start Date Expiration Date Visits Requested Visits Authorized [id number] Pending Review Specialty Services Required 11/22/[phone] Question Answer Referral Priority Within 10 days (routine) Where should this appointment be scheduled? [facility] To which of the following clinics are you referring your patient? General Cardiology Clinic Comments Hospital follow up for afib with RVR * Evaluate & Treat - Unlimited Visits (Within 10 days (routine)) - Pending Review Specialty Diagnoses / Procedures Referred By Contac t Referred To Contact Gastroenterology Diagnoses Iron deficiency anemia, unspecified iron deficiency anemia type Celiac disease Vicki Cadet MD [address] [place] [address] [place] [address] Referral ID Status Reason Start Date Expiration Date Visits Requested Visits Authorized [id number] Pending Review Specialty Services Required 11/22/[phone] Question Answer Referral Priority Within 10 days (routine) Where should this appointment be scheduled? [facility] For what condition is the patient being referred? All Gastro Conditions * Ancillary Services (Within 10 days (routine)) - Pending Review Specialty Diagnoses / Procedures Referred By Jovan mays Referred To Contact Gastroenterology Diagnoses Iron deficiency anemia, unspecified iron deficiency anemia type Vicki Cadet MD [address] [place] [address] [place] [id number] Referral ID Status Reason Start Date Expiration Date Visits Requested Visits Authorized [id number] Pending Review Ancillary Services Required 11/22/[phone] Question Answer Referral Priority Within 10 days (routine) Where should this appointment be scheduled? [facility] Comments ALERT: Do not order for pediatric patients (18 years or younger). Cancel off screen and order PEDS GASTROENTEROLOGY CONSULT (Type: 1 visit only-Evaluate and Treat) The following Pt. Instructions are available: - Gastro Colonoscopy Prep Instructions [89409] - Gastro Colonoscopy Prep Instructions (Cymraes Version) [[id number]] Go to the Pt. Instructions section within the Visit Navigator to access. Colonoscopy ASGE Guidelines: Iron deficiency anemia and Average risk screening (begin at age 50, 10 year intervals) ADDITIONAL INFORMATION 1. Is the patient on Coumadin? No 2. Is the patient on Pradaxa? No * Evaluate & Treat - Unlimited Visits (Within 10 days (routine)) - Pending Review Specialty Diagnoses / Procedures Referred By Jovan mays Referred To Contact Gastroenterology Diagnoses Iron deficiency anemia, unspecified iron deficiency anemia type Celiac disease Vicki Cadet MD [address] [place] [address] [place] [address] Referral ID Status Reason Start Date Expiration Date Visits Requested Visits Authorized [id number] Pending Review Ancillary Services Required 11/22/[phone] Question Answer Referral Priority Within 10 days (routine) Where should this appointment be scheduled? [facility] Comments Upper Endoscopy ASGE Guidelines other Celiac disease and Iron def anemia; recommended by inpatient team ADDITIONAL INFORMATION 1. Is the patient on Coumadin? No 2. Is the patient on Pradaxa? No Reason for Visit * Reason Onset Date Comments Hospital Follow-Up Hospital Follow-Up 11/22/2023 Encounter Details Date Type Department Care Team (Latest Contact Info) Description 11/22/2023 1:20 PM EDT Office Visit Family Medicine [address] [place] [phone] Vicki Cadet MD [address] [place] [address] [place] [phone] Hospital discharge follow-up*; Atrial fibrillation by electrocardiogram (HCC); Iron deficiency anemia, unspecified iron deficiency anemia type; Celiac disease; Severe persistent asthma without complication; Encounter for screening mammogram for breast cancer Allergies Active Allergy Reactions Criticality Noted Date [...] % nasal sprayIndications:Kishore rgic rhinitis Administer 1 [place] into nostril 2 times a day. 3 [...] 17 Active Vitamin D (Ergocalciferol) 1.25 MG (55633 UT) Oral Capsule Take 1 Cap by [...] reaction) Emgality 120 MG/ML Subcutaneous Solution Auto-injector (Galcanezumab-gnlm)In [...] was added at 2L on discharge from [facility] 04/26/10 Noct ox CPAP/RA -- <89% [...] on file documented as of this encounter Last Filed Vital Signs Vital Sign Reading Time Taken Comments Blood Pressure 138/78 11/22/2023 1:17 PM EDT Pulse 68 11/22/2023 1:17 PM EDT Temperature 36.9 C (98.5 F) 11/22/2023 1:17 PM ED T Respiratory Rate 16 11/22/2023 1:17 PM EDT Oxygen Saturation - - Inhaled Oxygen Concentration - - Weight 58.1 kg (128 lb) 11/22/2023 1:17 PM EDT Height 162.6 cm (5' 4") 11/22/2023 1:17 PM EDT Body Mass Index 21.97 11/22/2023 1:17 PM EDT documented in this encounter Functional Status Functional Status Response [...] Progress Notes * Vicki Cadet MD - 11/22/2023 1:27 PM EDT SUBJECTIVE: Lucinda Hack[place] is a 63 year old female. Chief Complaint Patient presents with Hospital Follow-Up Hospital Follow-Up Recent Admission: Patient was recently admitted to [facility]. The date of discharge was 11/19/23. Discharge report receivedand reviewed. HPI: Lucinda is here for hospital follow up. She was admitted for syncope and dx with anemia, bronchitis and atrial fibrillation with RVR Studies included echocardiogram with EF 60-65%; CT head/neck without acute bleed; CXR was clear Afib with RVR. Rate control achieved by adding digoxin, continued verapamil. Requip was stopped dueto risk of triggering arrhythmia. Deferred anticoagulation due to poss GI bleeding/ anemia. Celiac - found to have iron def anemia; GI consult recommended outpatient EGD/Colonoscopy to followup. Anemia. Iron deficient. Received 1 unit PRBC and IV venofer when her Hgb dropped to 7.2. H/H at discharge 9.7/33.7 Acute bronchitis. Treated with levoquin. TODAY: Feeling better but still quite tired. States she has had iron deficient anemia ever since she beganmenstruating at age 11. Is s/p hysterectomy 20 years ago, but still anemic. Patient Active Problem List Diagnosis ADVANCE DIRECTIVE INFORMATION Endometriosis Migraine without aura Palpitations Restless leg syndrome Dyslipidemia, goal LDL below 130 Acquired hypothyroidism Irritable bowel syndrome Gastroesophageal reflux disease with esophagitis without hemorrhage Asthma, severe persistent CYNTHIA (obstructive sleep apnea) Celiac disease Vitamin D deficiency Hypersomnia with sleep apnea ALLERGIC RHINITIS - MIXED TYPE Deviated nasal septum Severe allergy to eggs Adrenal nodule (HCC) Pancreas divisum Chronic hypokalemia Statin intolerance Paroxysmal tachycardia (HCC) CKD (chronic kidney disease), stage II Iron deficiency anemia 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 PRBC difficult to obtain Cervical stenosis of spinal canal H/O excision of lamina of cervical vertebra for decompression of spinal cord Stroke-like symptom S/P laminectomy with spinal fusion Atrial fibrillation by electrocardiogram ([facility]) Current Outpatient Medications Medication Sig Dispense Refill MULTIVITAMINS PO TABS 1 TABLET DAILY MIRALAX PO POWD 1 Cap full in juice up to 4 times a day to effect 1 stool per day 1 Bottle 3 ASPIRIN EC 81 MG PO TBEC Take one pill daily FERROUS SULFATE 325 (65 FE) MG PO TABS One pill by mouth 4 times a day Mometasone Furoate (NASONEX) 50 MCG/ACT nasal spray Administer 2 Sprays into each nostril 2 times aday. 2 Inhaler 1 Azelastine HCl (ASTELIN) 0.1 % nasal spray Administer 1 [place] into nostril 2 times a day. 3 Bottle 3 oxygen GAS 1 LPM bled through CPAP 4 cwp during hours of sleep (10 hours per day) 1 Each 0 montelukast (SINGULAIR) 10 MG Tablet TAKE ONE TABLET BY MOUTH ONE TIME DAILY 90 Tab 1 levothyroxine (LEVOXYL) 100 MCG Tablet TAKE ONE TABLET BY MOUTH EVERY DAY 90 Tab 1 Vitamin D (Ergocalciferol) 1.25 MG (47309 UT) Oral Capsule Take 1 Cap by mouth once a week. 8 Cap 0 Amitriptyline HCl 75 MG Oral Tablet (Elavil) TAKE ONE TABLET BY MOUTH NIGHTLY AT BEDTIME 90 Tablet 3 Fluticasone-Salmeterol 250-50 MCG/DOSE Inhalation Aerosol Powder Breath Activated (Advair Diskus) Inhale by mouth 1 Puff in the morning AND 1 Puff before bedtime. 180 Each 3 EpiPen 2-All 0.3 MG/0.3ML Injection Solution Auto-injector For a severe reaction: Place orange end against the outer thigh, press firmly, hold in place for 10 seconds and go to the Emergency room. 1 Each 1 Triamcinolone Acetonide 0.1 % External Cream (Aristocort) Apply to elbows and knees and hairline for psoriasis twice a day 80 g 5 Topiramate 100 MG Oral Tablet (topAMAX) Take by mouth 1 Tablet in the morning AND 1 Tablet before bedtime. 180 Tablet 3 Cimetidine 400 MG Oral Tablet (Tagamet) Take by mouth 1 Tablet in the morning AND 1 Tablet before bedtime. 180 Tablet 1 Hyoscyamine Sulfate ER 0.375 MG Oral Tablet Extended Release 12 Hour (Levbid) TAKE ONE TABLET BY MOUTH EVERY 6 HOURS NEEDED FOR ABDOMINAL PAIN 180 Tablet 3 RABEprazole Sodium 20 MG Oral Tablet Delayed Release Take by mouth 2 Tablets in the morning AND 2 Tablets before bedtime. 120 Tablet 5 Fexofenadine HCl 180 MG Oral Tablet (Yuliya) Take by mouth 1 Tablet in the morning. 30 Tablet 5 Sucralfate 1 GM Oral Tablet (Carafate) Take 1 Tablet (1 g) by mouth in the morning and 1 Tablet (1 g) at noon and 1 Tablet (1 g) in the evening and 1 Tablet (1 g) before bedtime. TAKE ONE TABLET BY MOUTH FOUR TIMES DAILY . 120 Tablet 5 Ondansetron 4 MG Oral Tablet Disintegrating Place 1 Tablet on tongue every 8 hours as needed for Nausea. dissolve on tongue. 30 Tablet 1 Ipratropium-Albuterol 20-100 MCG/ACT Inhalation Aerosol Solution (Combivent Respimat) INHALE ONE DOSE BY MOUTH FOUR TIMES A DAY NEEDED IN PLACE OF NEBULIZED XOPENEX 4 g 5 Levalbuterol HCl 1.25 MG/3ML Inhalation Nebulization Solution Inhale 3 mL via nebulizer 4 times a day as needed for Wheezing or Shortness of Breath. Use in place of Combivent. 180 mL 0 Ondansetron HCl 4 MG Oral Tablet Take 1 Tablet by mouth every 6 hours as needed for Nausea. 30 Tablet 0 guaiFENesin-Codeine 100-10 MG/5ML Oral Syrup (Robitussin AC) Take 5 mL by mouth every 4 hours as needed for Cough. 120 mL 0 Verapamil HCl 80 MG Oral Tablet (Isoptin) TAKE 1 TABLET BY MOUTH TWICE DAILY 180 Tablet 0 No current facility-administered medications for this visit. Current and discharge medications have been reconciled. Review of patient's allergies indicates: Allergen Reactions Bee Stings Anaphylaxis Gluten Latex Anaphylaxis anaphylaxis Pcn [Penicillins] Anaphylaxis Rash, shortness of breath, tongue swelling, anaphylaxis Sulfa Antibiotics Anaphylaxis and Rash Anaphylaxis Edin Inhibitors Rash and Tachycardia Ceclor [Cefaclor] Rash, upset stomach Egg Phosphatides Rash Influenza Vaccines Allergy to egg Iron IV IRON DEXTRAN- BUT tolerates venofer iron sucrose given inpatient 04/23/22 Lactose Bloating , diarrhea, vomiting Other - Foods Coconut causes rash, SOB Tetracyclines & Related Nausea/vomiting and Rash OBJECTIVE: BP 138/78 | Pulse 68 | Temp 36.9 C (98.5 F) | Resp 16 | Ht 1.626 m (5' 4") | Wt 58.1 kg (128 lb) | BMI 21.97 kg/m | BSA 1.62 m REVIEW OF SYSTEMS: PHYSICAL EXAM: BP 138/78 | Pulse 68 | Temp 36.9 C (98.5 F) | Resp 16 | Ht 1.626 m (5' 4") | Wt 58.1 kg (128 lb) | BMI 21.97 kg/m | BSA 1.62 m ASSESSMENT: Hospital discharge follow-up (Primary) - DISCH MED RECON CUR MED LIS Atrial fibrillation by electrocardiogram (HCC) - BASIC METABOLIC PANEL; Future; Expected date: 11/22/2023 - CARDIOLOGY REFERRAL OP Iron deficiency anemia, unspecified iron deficiency anemia type - UPPER ENDOSCOPY GI REFERRAL OP - COLONOSCOPY, GI REFERRAL OP - CBC; Future; Expected date: 11/22/2023 - BASIC METABOLIC PANEL; Future; Expected date: 11/22/2023 - ADULT GASTROENTEROLOGY REFERRAL OP Celiac disease - UPPER ENDOSCOPY GI REFERRAL OP - BASIC METABOLIC PANEL; Future; Expected date: 11/22/2023 - ADULT GASTROENTEROLOGY REFERRAL OP Severe persistent asthma without complication Encounter for screening mammogram for breast cancer - MAMMOGRAM SCREENING [place]AM[place] BILATERAL; Future; Expected date: 11/23/2023 Feeling well today Repeat labs Schedule egd and colonoscopy Schedule cardiology and GI appts Follow up in 4 weeks Follow Up: Return in about 4 weeks (around 12/20/2023) for Return with Physician, Clinic Visit. | For: Return with Physician, Clinic Visit Next time: address migraines/ neuro follow up PLAN: As above Follow up in 1 month(s). I spent a total of 30-39 minutes (exact time 37 mins) minutes on the date of service in preparation, delivery, and documentation of the care provided to Lucinda Hackett excluding any time spent in performance of separately billed services. Vicki Watson MD documented in this encounter Nursing Notes * Vera Leroy, RN - 11/22/2023 1:21 PM EDT Hospital follow up, pt was given Digoxin hospital, but does not know the dosage Diagnosed with A Fib, Bronchitis,she also had thrush ( she is unable to use Blood thinners) Pt just feels tired now documented in this encounter Plan of Treatment Upcoming Encounters Date Type Department Care Team (Late st Contact Info) Description 12/07/2023 2:30 PM EDT Imaging Radiology [address] [place] [id number] 12/24/2023 12:00 PM EDT Office Visit Family Medicine [address] [place] [phone] Joann You PA-C [address] [place] [address] [place] [phone] Pending Results Name Type Priority Associated Diagnoses Date /Time CBC Lab Routine Iron deficiency anemia, unspecified iron deficiency anemia type 11/22/2023 2:01 PM EDT BASIC METABOLIC PANEL Lab Routine Atrial fibrillation by electrocardiogram (HCC) Iron deficiency anemia, unspecified iron deficiency anemia type Celiac disease 11/22/2023 2:01 PM EDT Scheduled Orders Name Type Priority Associated Diagnoses Orde r Schedule CBC Lab Routine Iron deficiency anemia, unspecified iron deficiency anemia type Expected: 11/22/2023 (Approximate), Expires: 11/21/2024 BASIC METABOLIC PANEL Lab Routine Atrial fibrillation by electrocardiogram (HCC) Iron deficiency anemia, unspecified iron deficiency anemia type Celiac disease Expected: 11/22/2023 (Approximate), Expires: 11/21/2024 MAMMOGRAM SCREENING [place]AMIL[place] BILATERAL Medical Imaging Routine Encounter for screening mammogram for breast cancer Expected: 11/23/2023, Expires: 12/22/2024 Scheduled Procedures Name Priority Associated Diagnoses Date/Ti me COLONOSCOPY FLEXIBLE PROXIMAL DIAGNOSTIC Recall Special screening for malignant neoplasms, colon Iron deficiency anemia due to chronic blood loss ESOPHAGOGASTRODUODENOSCOPY ( EGD), FLEXIBLE, TRANSORAL, DIAGNOSTIC Recall Special screening for malignant neoplasms, colon Iron deficiency anemia due to chronic blood loss Scheduled Referrals Name Type Priority Associated Diagnoses Orde r Schedule UPPER ENDOSCOPY GI REFERRAL OP Referral Within 10 days (routine) Iron deficiency anemia, unspecified iron deficiency anemia type Celiac disease Ordered: 11/22/2023 COLONOSCOPY, GI REFERRAL OP Referral Within 10 days (routine) Iron deficiency anemia, unspecified iron deficiency anemia type Ordered: 11/22/2023 ADULT GASTROENTEROLOGY REFERRAL OP Referral Within 10 days (routine) Iron deficiency anemia, unspecified iron deficiency anemia type Celiac disease Ordered: 11/22/2023 CARDIOLOGY REFERRAL OP Referral Within 10 days (routine) Atrial fibrillation by electrocardiogram (HCC) Ordered: 11/22/2023 Health Maintenance Due Date Last Done Comments HIV Screening 1976 Cologuard 2006 Sigmoidoscopy 2006 Zoster Vaccines (1 of 2) 2011 Fecal Occult Blood Test 08/11/2013 08/11/2012 Mammogram 01/31/2015 01/31/2014, 12/04, 11/20/2011, Additional history exists Depression Screening 02/15/2019 02/15/2018 Colonoscopy 03/26/2021 03/26/2011, 03/06, 04/11/2010 Colorectal Cancer Screening 03/26/2021 COVID-19 Vaccine (2022- season) 2023 Influenza Vaccine (FLU shot) (Season [...] this encounter Medical Devices Implanted Type Area Channeling Machine Runner Device Identifier Shelf Expiration Date Model / Serial / Lot Dbx 5cc [id number] - [id number] Implanted:Qt y: 1 on 04/22/2022 by Jaspreet Georges MD at [facility] Tissue - Human MUSCULOSKELETAL TRANSPLANT FND [id number] 11/22/2023 [id number] / [id number] 19 / LOT NA Vitoss Bimodal Foam Pack 2.5cc - [id number] Implanted:Qt y: 1 on 04/22/2022 by Jaspreet Georges MD at [facility] ANATOLIY : SPINE [id number] 04/01/2023 2102- 190 2 / [id number] / [id number] Vitoss Bimodal Foam Pack 2.5cc - [id number] Implanted:Qt y: 1 on 04/22/2022 by Jaspreet Georges MD at [facility] ANATOLIY : SPINE [id number] 09/01/2023 2102- 190 2 / [id number] / [id number] [place] Screw Set Implanted:Qt y: 10 on 04/22/2022 by Jaspreet Georges MD at [facility] N/A: Spine Cervical 7601-100 01 / / [place] 3.5 X 12mm Screw Implanted:Qt y: 4 on 04/22/2022 by Jaspreet Georges MD at OR [facility] N/A: Spine Cervical 7601-035 12 / / [place] 3.5 X 10mm Screw Implanted:Qt y: 3 on 04/22/2022 by Jaspreet Georges MD at OR [facility] N/A: Spine Cervical 7601-035 10 / / [place] 4.0 X 10mm Screw Implanted:Qt y: 1 on 04/22/2022 by Jaspreet Georges MD at OR [facility] N/A: Spine Cervical 7601-040 10 / / [place] 4.5 X 22mm Screw Implanted:Qt y: 2 on 04/22/2022 by Jaspreet Georges MD at OR [facility] N/A: Spine Cervical 7601-045 22 / / [place] 3.5 X 75mm [place] Implanted:Qt y: 2 on 04/22/2022 by Jaspreet Georges MD at [facility] N/A: Spine Cervical 7601-635 75 / / documented as of this encounter Visit Diagnoses Diagnosis Hospital discharge follow-up- Primary Other follow-up examination Atrial fibrillation by electrocardiogram (HCC) Atrial fibrillation Iron deficiency anemia, unspecified iron deficiency anemia type Celiac disease Severe persistent asthma without complication Encounter for screening mammogram for breast cancer documented in this encounter Advance Directives * [...]
--- OUTSIDE RECORDS SUMMARY | 2024-01-27 23:40 | External Medical Summary | Summary of Care ---
Author Name Unknown Organization [facility] Address [address] [place] [address] Phone [phone] Care Team Providers Care Neurology Tech Name Role Phone Unavailable Primary Care Provider Unavailabl e Reason for Visit * Reason Onset Date Comments Appointment 11/22/2023 Upper/lower endo scopy Encounter Details Date Type Department Care Team (Late st Contact Info) Description 11/22/2023 Telephone Family Medicine [address] [phone] Vicki Cadet MD [address] [place] [address] [place] [id number] Appointment (Upper/lower endoscopy ) Allergies Active Allergy [...] % nasal sprayIndications:Allerg ic rhinitis Administer 1 [place] into nostril 2 times a day. 3 [...] 06/15/2017 Active Vitamin D (Ergocalciferol) 1.25 MG (03621 UT) Oral Capsule Take 1 Cap by [...] Oral Tablet (Isoptin)Indications:At rial fibrillation by electrocardiogram ([facility]) TAKE 1 TABLET BY MOUTH [...] added at 2L on discharge from [facility] 04/26/10 Noct ox CPAP/RA -- <89% [...] (9-67) 12/30/99 - Left lingular biopsy at [facility] s/t frequent URI and nodularity at lingula [...] 12/01/2023 11:30 AM EDT Office Visit Cardiology, [facility] [address] [place] [address] Jessie Mendiola CRNP [address] [place] [address] 12/07/2023 2:30 PM EDT Imaging Radiology [address] [place] [address] 12/24/2023 12:00 PM EDT Office Visit Family Medicine [address] [place] [phone] Joann You PA-C [address] [place] [address] [place] [address] 03/10/2024 12:30 PM EDT Office Visit Gastroenterology [address] [place] [address] Mandy Mart CRNP [address] [place] [address] Scheduled Procedures Name Priority Associated Diagnoses Date/Ti [...] this encounter Medical Devices Implanted Type Area Aircraft Manager Device Identifier Shelf Expiration Date Model / Serial / Lot Dbx 5cc [id number] - [id number] Implanted:Qt y: 1 on 04/22/2022 by Jaspreet Georges MD at [facility] Tissue - Human MUSCULOSKELETAL TRANSPLANT FND [id number] 11/22/2023 [id number] / [id number] 19 / LOT NA Vitoss Bimodal Foam Pack 2.5cc - [id number] Implanted:Qt y: 1 on 04/22/2022 by Jaspreet Georges MD at OR [facility] ANATOLIY : SPINE [id number] 04/01/2023 2 / [id number] / [id number] Vitoss Bimodal Foam Pack 2.5cc - [id number] Implanted:Qt y: 1 on 04/22/2022 by Jaspreet Georges MD at OR [facility] ANATOLIY : SPINE [id number] 09/01/2023 2 / [id number] / [id number] [place] Screw Set Implanted:Qt y: 10 on 04/22/2022 by Jaspreet Georges MD at OR [facility] N/A: Spine Cervical 7601-100 01 / / [place] 3.5 X 12mm Screw Implanted:Qt y: 4 on 04/22/2022 by Jaspreet Georges MD at OR [facility] N/A: Spine Cervical 7601-035 12 / / [place] 3.5 X 10mm Screw Implanted:Qt y: 3 on 04/22/2022 by Jaspreet Georges MD at OR [facility] N/A: Spine Cervical 7601-035 10 / / [place] 4.0 X 10mm Screw Implanted:Qt y: 1 on 04/22/2022 by Jaspreet Georges MD at OR [facility] N/A: Spine Cervical 7601-040 10 / / [place] 4.5 X 22mm Screw Implanted:Qt y: 2 on 04/22/2022 by Jaspreet Georges MD at OR [facility] N/A: Spine Cervical 7601-045 22 / / [place] 3.5 X 75mm [place] Implanted:Qt y: 2 on 04/22/2022 by Jaspreet Georges MD at OR [facility] N/A: Spine Cervical 7601-635 75 / [...]
--- OUTSIDE RECORDS SUMMARY | 2024-01-27 23:40 | External Medical Summary | Summary of Care ---
Author Name Unknown Organization [facility] Address [address] [place] [address] Phone [phone] Care Team Providers Care Edge Inker Uppers Name Role Phone Unavailable Primary Care Provider Unavailabl e Reason for Visit * Reason Onset Date Comments Test Results 11/23/2023 Encounter Details Date Type Department Care Team (Late st Contact Info) Description 11/23/[address] [phone] Vicki Cadet MD [address] [place] [address] [place] [address] Test Results Allergies Active Allergy Reactions Criticality Noted Date [...] % nasal sprayIndications:Allerg ic rhinitis Administer 1 [place] into nostril 2 times a day. 3 [...] 06/15/2017 Active Vitamin D (Ergocalciferol) 1.25 MG (53719 UT) Oral Capsule Take 1 Cap by [...] Oral Tablet (Isoptin)Indications:At rial fibrillation by electrocardiogram ([facility]) TAKE 1 TABLET BY MOUTH TWICE DAILY [...] was added at 2L on discharge from [facility] 04/26/10 Noct ox CPAP/RA -- <89% 5:12 [...] (9-67) 12/30/99 - Left lingular biopsy at [facility] s/t frequent URI and nodularity [...] encounter Miscellaneous Notes * Telephone Encounter - Ismael Rodriguez RN - 11/23/2023 9:48 AM EDT Called and spoke to the patient and reviewed the message with her from Anna FALCON in regards to her lab work. She stated she understood and will call her PCP concerning her blood sugar. * Telephone Encounter - Ismael Rodriguez RN - 11/23/2023 9:48 AM EDT ----- Message from Anna Nesbitt sent at 11/23/2023 7:32 AM EDT ----- Dig level is okay. Critical lab results for low blood sugar. It appears that PCP was notified-- can we make sure the patient is aware and if any interventions took place. She did recently have a hospitalization for weakness and syncope. Possibly low blood sugars contributing. Would recommend following up with her PCP. * Telephone Encounter - Vicki Cadet MD - 11/23/2023 9:24 AM EDT Lab results are within normal limits; except for a low glucose reading. I suspect this is due to transportation and not "real", but please ask if she is feeling well and recommend repeating glucose level (random). documented in this encounter Plan of Treatment Upcoming Encounters Date Type Department Care Team (Late st Contact Info) Description 12/01/2023 11:30 AM EDT Office Visit Cardiology, [facility] [address] [facility] [place] [address] Jessie Mendiola CRNP [address] [place] [address] 12/07/2023 2:30 PM EDT Imaging Radiology [address] [place] [address] 12/24/2023 12:00 PM EDT Office Visit Family Medicine [address] [place] [phone] Joann You PA-C [address] [place] [address] [place] [address] 03/10/2024 12:30 PM EDT Office Visit Gastroenterology [address] [place] [address] Mandy Mart CRNP [address] [place] [address] Scheduled Procedures Name Priority Associated Diagnoses Date/Ti [...] this encounter Medical Devices Implanted Type Area Animal Husbandry 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 Device Identifier Shelf Expiration Date Model / Serial / Lot Dbx 5cc [id number] - [id number] Implanted:Qt y: 1 on 04/22/2022 by Jaspreet Georges MD at [facility] Tissue - Human MUSCULOSKELETAL TRANSPLANT FND [id number] 11/22/2023 [id number] / [id number] 19 / LOT NA Vitoss Bimodal Foam Pack 2.5cc - [id number] Implanted:Qt y: 1 on 04/22/2022 by Jaspreet Georges MD at OR [facility] ANATOLIY : SPINE [id number] 04/01/20232101- 190 2 / [id number] / [id number] Vitoss Bimodal Foam Pack 2.5cc - [id number] Implanted:Qt y: 1 on 04/22/2022 by Jaspreet Georges MD at OR [facility] ANATOLIY : SPINE [id number] 09/01/20232101- 190 2 / [id number] / [id number] [place] Screw Set Implanted:Qt y: 10 on 04/22/2022 by Jaspreet Georges MD at OR [facility] N/A: Spine Cervical 7601-100 01 / / Anatoliy [place] 3.5 X 12mm Screw Implanted:Qt y: 4 on 04/22/2022 by Jaspreet Georges MD at OR [facility] N/A: Spine Cervical 7601-035 12 / / [place]y [place] 3.5 X 10mm Screw Implanted:Qt y: 3 on 04/22/2022 by Jaspreet Georges MD at OR [facility] N/A: Spine Cervical 7601-035 10 / / [place] 4.0 X 10mm Screw Implanted:Qt y: 1 on 04/22/2022 by Jaspreet Georges MD at OR [facility] N/A: Spine Cervical 7601-040 10 / / [place] 4.5 X 22mm Screw Implanted:Qt y: 2 on 04/22/2022 by Jaspreet Georges MD at OR [facility] N/A: Spine Cervical 7601-045 22 / / [place] 3.5 X 75mm [place] Implanted:Qt y: 2 on 04/22/2022 by Jaspreet Georges MD at OR [facility] N/A: Spine Cervical 7601-635 75 / [...]
--- NOTE | 2024-01-27 23:55 | CT Scan Report ---
Exam(s): CTA CHEST IV Amt: 119 ml optiray 320 EXAM: CT Angiography Chest With Intravenous Contrast CLINICAL HISTORY: Reason for exam: cp sob. TECHNIQUE: Axial computed tomographic angiography images of the chest with intravenous contrast. CTDI is 10.55 mGy and DLP is 327.61 mGy-cm. Automated exposure control was utilized for the study. A dose lowering technique was utilized adhering to the principles of ALARA. MIP reconstructed images were created and reviewed. COMPARISON: No relevant prior studies available. FINDINGS: Pulmonary arteries: Unremarkable. No acute pulmonary embolus. Aorta: No acute findings. No thoracic aortic aneurysm. Lungs: Unremarkable. No mass. No consolidation. Pleural space: Unremarkable. No significant effusion. No pneumothorax. Heart: Unremarkable. No cardiomegaly. No significant pericardial effusion. No evidence of RV dysfunction. Bones/joints: Degenerative changes of the spine. No acute fracture. No dislocation. Soft tissues: Unremarkable. Lymph nodes: Unremarkable. No enlarged lymph nodes. Gallbladder and bile ducts: Cholecystectomy. Tubes, lines and devices: RIGHT Port-A-Cath terminates in the RIGHT atrium. IMPRESSION: No acute pulmonary embolus. Electronically signed by: Tucker Restrepo MD 01/27/24 23:55 PM
--- NOTE | 2024-01-28 00:30 | CT Scan Report ---
Exam(s): CT ABDOMEN + PELVIS With Contrast IV Amt: 119 ml optiray 320 EXAM: CT Abdomen and Pelvis With Intravenous Contrast CLINICAL HISTORY: Reason for exam: abd pain. TECHNIQUE: Axial computed tomography images of the abdomen and pelvis with intravenous contrast. CTDI is 11.36 mGy and DLP is 571.42 mGy-cm. Automated exposure control was utilized for the study. A dose lowering technique was utilized adhering to the principles of ALARA. CONTRAST: Patient received 119 ml optiray 320 of IV contrast COMPARISON: No relevant prior studies available. FINDINGS: Lung bases: Unremarkable. No mass. No consolidation. ABDOMEN: Liver: Unremarkable. No mass. Gallbladder and bile ducts: Unremarkable. No calcified stones. No ductal dilation. Pancreas: Unremarkable. No mass. No ductal dilation. Spleen: Unremarkable. No splenomegaly. Adrenals: Unremarkable. No mass. Kidneys and ureters: Unremarkable. No solid mass. No hydronephrosis. Stomach and bowel: Diverticulosis, without acute diverticulitis. No small bowel obstruction. No free intraperitoneal air. PELVIS: Appendix: No findings to suggest acute appendicitis. Bladder: Unremarkable. No mass. Reproductive: Unremarkable as visualized. ABDOMEN and PELVIS: Intraperitoneal space: Unremarkable. No free air. No significant fluid collection. Bones/joints: Degenerative changes of the spine. No acute fracture. No dislocation. Soft tissues: Unremarkable. Vasculature: Atherosclerotic changes of the aorta. No abdominal aortic aneurysm. Lymph nodes: Unremarkable. No enlarged lymph nodes. IMPRESSION: Diverticulosis, without acute diverticulitis. No small bowel obstruction. No free intraperitoneal air. Electronically signed by: Tucker Restrepo MD 01/28/24 00:29 AM
[2024-01-28] MEDS ORDERED: HEPARIN 100 UNIT/ML 5ML FLUSH FLUSH PRN (02:47)
[2024-01-28] MEDS: MIDODRINE HCL 2.5 MG TAB PO STA (05:01)
[2024-01-28] MEDS: LEVOTHYROXINE SODIUM 100 MCG TABLET PO SCH (05:01)
[2024-01-28] MEDS: FEXOFENADINE HCL 180 MG TAB PO SCH (08:17)
[2024-01-28] MEDS: MULTIVITAMIN TAB PO SCH (08:17)
[2024-01-28] MEDS: FLUTICASONE/VILANTEROL 100/25MCG 14 PUFFS/INHALER INH SCH (08:18)
[2024-01-28] MEDS: LORazepam 0.5 MG in SYRINGE 0.25 ML IV ONE (10:44)
[2024-01-28] MEDS: GADOBUTROL 65ML VIAL IV ONE (11:47)
[2024-01-28] MEDS: MIDODRINE HCL 2.5 MG TAB PO SCH (12:18)
[2024-01-28] MEDS: ACETAMINOPHEN 325 MG TAB PO PRN (12:20)
--- NOTE | 2024-01-28 12:31 | Magnetic Resonance Report ---
MR brain wo/w con HISTORY: 63 years-old Female Recurrent Syncope COMPARISON: Head CT 01/27/2024, brain MRI 12/03/2008 TECHNIQUE: Multiplanar multisequence MRI of the brain was obtained with and without IV contrast. FINDINGS: Midline structures appear unremarkable. Degenerative and postoperative changes of the imaged cervical spine. No restricted diffusion. Cerebral venous sinuses and major arterial flow voids appear patent. The skull, orbits and soft tissues are unremarkable. Mastoid air cells are clear. Mild mucosal thick ening of the nasal turbinates and paranasal sinuses. 2.8 cm nasal septal defect is a chronic finding. Involutional changes with mild T2/FLAIR hyperintense foci throughout the white matter suggestive of c hronic microvascular ischemic disease, mildly progressed. There is no acute intracranial hemorrhage, midline shift, abnormal extra-axial collection, hydrocephalus or intra-axial mass. No abnormal enhanc ement. IMPRESSION: 1. No acute intracranial abnormality. 2. No abnormal enhancement. ACT 112: Negative or not required by law. The above report was generated using voice recognition software. It may contain grammatical, syntax o r spelling errors. Electronically signed by: Andrez Foster M.D. 01/28/2024 12:30 PM
--- NOTE | 2024-01-28 13:54 | Hospitalist Progress Note ---
Date of Service January 28, 2024 Assessment & Plan (1) Syncope: Plan: Recurrent syncope Hypotension Paroxysmal A-fib --MRI Brain: No acute intracranial abnormality. No abnormal enhancement. -- Normal orthostatics --Monitor on telemetry to rule out arrhythmias H/O paroxysmal atrial fibrillation, PAT, NSVT H/O intolerance to beta-blockers, amiodarone deferred due to interstitial lung disease in the past Blood pressure improved with IV fluids Also started on midodrine Cardiology consulted Continue verapamil Not on anticoagulation due to longstanding anemia Suspected Mnire's disease Given complains of dizziness, R ear tinnitus, mild right ear decreased hearing Counseled to limit salt, caffeine, alcohol use Considered adding diuretics if appropriate Meclizine as needed Advised to follow-up with ENT as outpatient PT darleen requested Chronic anemia Presented with coffee-ground emesis Fecal occult negative H/O hiatal hernia, PUD, celiac disease H/O iron, folate deficiency Anemia workup pending Hemoglobin at baseline Continue IV PPI Monitor CBC Advance diet as tolerated Asthma CYNTHIA on CPAP No signs of exacerbation Continue home medications Saturating well on room air Hypertension Continue verapamil Monitor BP Hyperlipidemia H/O statin intolerance Hypothyroidism Continue levothyroxine Irritable bowel syndrome Celiac disease PUD Munchausen syndrome as per records Chronic abdominal pain Follow-up with GI as outpatient Continue PPI, Carafate CAD Continue verapamil Resume aspirin as able DVT Px: SCDs for now Code Status Full code Admission and Anticipated Discharge Date Admission Date: January 27, 2024 Subjective Patient is seen and examined at bedside States having dizziness, right ear ringing sensation Reports chronic abdominal pain Denies any chest pain, dyspnea No nausea, vomiting today RN noted patient to have a run of PAT today Review of Systems Review of Systems: All systems reviewed & are unremarkable except as noted in Subjective Physical Exam Physical Exam: Physical Exam: Vitals signs as noted above General Appearance: Thin, frail, chronic a ill-appearing, no apparent distress Head: normocephalic, Atraumatic Eyes: normal inspection, EOMI Neck: supple, Trachea midline Respiratory/Chest: Normal breath sounds, CTA, + port, no accessory muscle use Cardiovascular: S1, S2, ? faint murmur Abdomen/GI:Soft, Non tender, + abdominal hernia, bowel sounds present Extremities/Musculoskeletal:normal inspection, no edema Neurologic/Psych:AAOX3, grossly no focal neurological deficits Skin: normal color, warm Results & Data Results & Data Vital Signs (Past 12 Hours) Vital Signs Temp Pulse Pulse Resp BP Pulse Ox O2 Del Method 01/28/24 11:07 36.8 C 100 H 18 148/91 H 98 Room Air 01/28/24 07:33 57 L 01/28/24 07:31 36.6 C 64 16 120/77 98 Room Air 01/28/24 03:03 36.7 C 94 H 16 105/61 93 Room Air 01/28/24 02:04 Room Air Laboratory Results Short CBC 01/27/24 01/27/24 Range/Units 17:18 20:23 WBC 6.37 (4.8-10.8) K/ul Hgb 10.3 L 10.7 L (12.0-16.0) g/dl Hct 34.9 L 35.4 L (37.0-47.0) % Plt Count 350 (130-400) K/uL BMP 01/27/24 17:18 Sodium 142 Potassium 3.6 Chloride 112 H Carbon Dioxide 22 BUN 16 Creatinine 0.70 Glucose 94 Calcium 9.1 Liver Function 01/27/24 Range/Units 17:18 Total Bilirubin 0.1 L (0.2-1.0) mg/dl AST 17 (13-39) U/L ALT 14 (7-52) U/L Alkaline Phosphatase 70 (34-104) U/L Albumin 3.6 (3.4-5.0) gm/dl Urine 01/27/24 Range/Units 21:57 Urine Color Yellow Urine Appearance Clear (Clear) Urine pH 6.0 (4.5-7.5) Ur Specific [place] 1.025 (1.000-1.030) Urine Protein Negative (Negative) Urine Glucose (UA) Negative (Negative) (1) Syncope Syncope type: unspecified Qualified Code(s): R55 - Syncope and collapse
--- NOTE | 2024-01-28 15:19 | Cardiology Consultation ---
Date of Consultation January 28, 2024 Assessment & Plan (1) Syncope: (2) Anemia: (3) PSVT (paroxysmal supraventricular tachycardia): (4) Orthostatic hypotension: Plan 63-year-old female presenting with abdominal discomfort, nausea, vomiting, and syncope. Syncope possibly related to orthostatic hypotension. No symptomatic dysrhythmia recorded on telemetry since admission. Isolated 10 beat sangeetha of paroxysmal supraventricular tachycardia recorded without associated symptoms. No significant heart block, pauses, or symptomatic bradycardia recorded. Chronic anemia stable. Recommend continue IV hydration and low-dose midodrine. Assess orthostatic vital signs every shift. Monitor telemetry during hospitalization. Supplement electrolytes as indicated. Add below the knee compression stockings. Continue verapamil 80 mg twice daily. Previously treated with low-dose digoxin. Consider restarting pending ongoing assessment and review of telemetry. With history of atrial fibrillation and relative contraindication to oral anticoagulation, consider referral for percutaneous left atrial appendage occlusion (Watchman device) as outpatient. Consider outpatient 14-day ZIO monitor and/or implantable loop recorder pending outpatient follow-up. Thank you for allow me to participate in the care of your patient. I spent a total of 50 minutes on the date of service in preparation, delivery, and documentation of the care provided to this patient, excluding any time spent in the performance of separately billed services. History of Present Illness Reason for Consultation: Recurrent syncope Requesting Physician: Dr. Hodges Attending Physician: Rogelio Hodges MD History of Present Illness 63-year-old female present to the emergency department feeling generally unwell. Reports several syncopal episodes last week occurring when changing position from seated to standing. No palpitations, chest discomfort, or unusual shortness of breath. Notes abdominal discomfort and intermittent nausea with vomiting. Hospitalized November 2023 due to recurrent syncope attributed to symptomatic anemia. Carries history of atrial fibrillation, however, anticoagulation discontinued due to anemia. Outpatient endoscopy scheduled April 2024. Patient resting comfortably since admission. Telemetry feels sinus rhythm without dysrhythmia. Denies any chest pain, shortness of breath, orthopnea, PND, or lower extremity edema. No recurrent lightheadedness, dizziness, or near syncope since admission. Orthostatic vital signs assessed by nursing. No evidence of orthostatic hypotension or reproducible symptoms currently. Patient admits to running out of cardiac meds including verapamil and digoxin approximately 2 weeks ago. Allergies Allergy/AdvReac Type Severity Reaction Status Date / Time bee venom protein (honey bee) Allergy Severe ANAPHYLAXIS Verified 01/27/24 19:35 coconut Allergy Severe RASH; SOB Verified 01/27/24 19:35 gluten Allergy Severe CELIAC'S Verified 01/27/24 19:35 iron Allergy Severe SOB,TACHY Verified 01/27/24 19:35 WITH IV IRON latex Allergy Severe Anaphylaxis Verified 01/27/24 19:35 Penicillins Allergy Severe Anaphylaxis Verified 01/27/24 19:35 Sulfa (Sulfonamide Allergy Severe Anaphylaxis Verified 01/27/24 19:35 Antibiotics) ROBER Inhibitors Allergy Intermediate RASH/TACHYC Verified 01/27/24 19:35 ARDIA cefaclor Allergy Intermediate CECLOR--RASH/UPSET Verified 01/27/24 19:35 STOMACH egg Allergy Intermediate RASH & Verified 01/27/24 19:35 Bloating Influenza Virus Vaccines Allergy Intermediate rash and Verified 01/27/24 19:35 bloating lactose Allergy Intermediate BLOATING; Verified 01/27/24 19:35 DIARRHEA; VOMITING tetracycline Allergy Intermediate NAUSEA/VOMI Verified 01/27/24 19:35 TING/RASH Quinolones Allergy Unknown ALLERGY TO Verified 01/27/24 19:35 AVELOX ,CAN TAKE CIPRO OR LEVAQUIN W/O RXN Beta-Blockers AdvReac Intermediate intolerance Verified 01/27/24 19:35 (Beta-Adrenergic Bloc as per records Home Medications Medication Instructions Recorded Confirmed Type amitriptyline 75 mg tablet 75 mg PO HS 12/24/20 01/27/24 History cimetidine 400 mg tablet 400 mg PO BID 12/24/20 01/27/24 History ergocalciferol (vitamin D2) 1,250 1,250 mcg PO WK 12/24/20 01/27/24 History mcg (50,000 unit) capsule (Vitamin D2) polyethylene glycol 3350 17 17 g PO QID PRN FOR AT LEAST 1 12/24/20 01/27/24 History gram/dose oral powder (Miralax) STOOL DAILY rabeprazole 20 mg tablet,delayed 40 mg PO BID 12/24/20 01/27/24 History release sucralfate 1 gram tablet (Carafate) 1 g PO ACHS 12/24/20 01/27/24 History topiramate 100 mg tablet (Topamax) 100 mg PO BID 12/24/20 01/27/24 History aspirin 81 mg tablet,delayed 81 mg PO QAM 04/06/21 01/27/24 History release (Kerwin Low Dose Aspirin) fexofenadine 180 mg tablet 180 mg PO DAILY 05/08/21 01/27/24 History levothyroxine 100 mcg tablet 100 mcg PO DAILYBB 05/08/21 01/27/24 History montelukast 10 mg tablet 10 mg PO HS 05/08/21 01/27/24 History ondansetron 4 mg disintegrating 4 mg translingual Q8H PRN Nausea 05/08/21 01/27/24 History tablet azelastine 137 mcg (0.1 %) nasal 1 spray intranasal BID 01/06/23 01/27/24 History spray epinephrine 0.3 mg/0.3 mL 0.3 mg IM DIRECTED PRN Allergic 01/06/23 01/27/24 History injection, auto-injector (EpiPen) Reaction ferrous sulfate 325 mg (65 mg 325 mg PO QID 01/06/23 01/27/24 History iron) tablet fluticasone 250 mcg-salmeterol 50 1 inh inhalation BID 01/06/23 01/27/24 History mcg/dose blistr powdr for inhalation (Advair Diskus) ipratropium 20 mcg-albuterol 100 1 puff inhalation QID PRN USE IN 01/06/23 01/27/24 History mcg/actuation mist for inhalation PLACE OF XOPENEX IF NEEDED (Combivent Respimat) mometasone 50 mcg/actuation nasal 2 spray intranasal BID 01/06/23 01/27/24 History spray multivitamin 1 tab PO DAILY 01/06/23 01/27/24 History codeine 10 mg-guaifenesin 100 mg/5 5 ml PO Q4H PRN Cough 01/27/24 01/27/24 History mL oral liquid (Guaifenesin AC) hyoscyamine sulfate 0.375 mg 0.375 mg PO Q6H PRN ABD PAIN 01/27/24 01/27/24 History tablet,extended release,12 hr triamcinolone acetonide 0.1 % 1 applic topical BID PRN PSORIASIS 01/27/24 01/27/24 History topical cream verapamil 80 mg tablet 80 mg PO BID 01/27/24 01/27/24 History Patient History Medical History Elevated LFTs Chronic anemia Dehydration Colitis with rectal bleeding Bloody diarrhea Hypertension Adrenal cyst monitoring Kidney stones no surgery Chronic back pain Degenerative disc disease Osteoarthritis Hx of sepsis ~2017 treated at [facility]. Anxiety Mitral valve prolapse follows with Dr Aguirre Heart disease Narcolepsy Chronic obstructive pulmonary disease Sleep apnea CPAP -- have not used in about a year (it broke and has not yet been fixed) NSVT (nonsustained ventricular tachycardia) Asthma, severe persistent Gastroparesis Celiac disease GERD (gastroesophageal reflux disease) IBS (irritable bowel syndrome) Hypothyroidism no current medication -- TSH normal without meds. CHARLES (iron deficiency anemia) ferrous sulfate QID. Dyslipidemia MRSA (methicillin resistant Staphylococcus aureus) 1999 dx nose septum wound 2019 dx in lungs Surgical History History of esophagogastroduodenoscopy (EGD) History of colonoscopy History of section x1 History of dilatation and curettage History of bilateral tubal ligation S/P GLENNY-BSO S/P surgery on nasal septum "collapsed septum" s/p post op infection that "ate away the septum" S/P nasal surgery Hx of cholecystectomy History of arthroscopic knee surgery left Hx of cardiac cath "2009 - normal coronaries" Family History Other No family history of adverse response to anesthesia Social History Smoking Status: Never smoker Second Hand Exposure: No; Do You Dip or Chew Tobacco: No; Tobacco Cessation Education Requested by Patient: No Hx Alcohol Use: No Hx Substance Use: No Preferred Language: Yoruba Communication Ability: Effective Methodologist Required: No Beliefs That Will Affect Care: None marital status: Current Living Situation: Spouse and Family Current Living Situation Comment: and adult son Other Information That Helps Us Care for You: No Feels Safe at Home: Yes Safety Concerns: Feels Safe At This Time Assistive Devices: CPAP Review of Systems Review of Systems: All systems reviewed & are unremarkable except as noted in Subjective Physical Exam Constitutional: well nourished; no acute distress Respiratory: normal respiratory effort; no respiratory distress and no labored breathing Auscultation: no crackles, no rales, no rhonchi and no wheezes Cardiovascular: Rate/Rhythm: regular rate and regular rhythm Heart Sounds: normal S1 and normal S2; no murmur Vessels: no JVD and no carotid bruit Extremities: no edema Gastrointestinal (Abdomen): Inspection/Auscultation: abdomen normal to inspection and normal bowel sounds; abdomen not distended Percussion/Palpation: abdomen soft; abdomen nontender, no guarding and abdomen not rigid Results & Data Vital Signs (Past 12 Hours) Vital Signs Temp Pulse Pulse Resp BP Pulse Ox O2 Del Method 01/28/24 11:07 36.8 C 100 H 18 148/91 H 98 Room Air 01/28/24 07:33 57 L 01/28/24 07:31 36.6 C 64 16 120/77 98 Room Air Laboratory Results Cardiac Enzymes 01/27/24 01/27/24 Range/Units 17:18 23:00 AST 17 (13-39) U/L Troponin I High Sens 5.2 6.0 (0-14) pg/ml Coagulation 01/27/24 Range/Units 17:19 APTT 24 (21-31) Seconds CBC 01/27/24 01/27/24 Range/Units 17:18 20:23 WBC 6.37 (4.8-10.8) K/ul RBC 4.02 L (4.20-5.40) M/uL Hgb 10.3 L 10.7 L (12.0-16.0) g/dl Hct 34.9 L 35.4 L (37.0-47.0) % Plt Count 350 (130-400) K/uL Neut # (Auto) 4.24 (1.40-6.50) K/uL Lymph # (Auto) 1.59 (1.20-3.40) K/uL [place] # (Auto) 0.42 (0.11-0.59) K/uL Eos # (Auto) 0.08 (0.00-0.50) K/uL Baso # (Auto) 0.03 (0.00-0.20) K/uL Comprehensive Metabolic Panel 01/27/24 Range/Units 17:18 Sodium 142 (136-145) mmol/L Potassium 3.6 (3.5-5.1) mmol/L Chloride 112 H (98-107) mmol/L Carbon Dioxide 22 (21-32) mmol/L BUN 16 (6-23) mg/dl Creatinine 0.70 (0.6-1.2) mg/dl Glucose 94 (70-99(Fasting)) mg/dl Calcium 9.1 (8.6-10.3) mg/dl AST 17 (13-39) U/L ALT 14 (7-52) U/L Alkaline Phosphatase 70 (34-104) U/L Total Protein 6.1 (6.0-8.3) gm/dl Albumin 3.6 (3.4-5.0) gm/dl Intake and Output 01/28/24 01/28/24 01/28/24 06:59 14:59 22:59 Intake Total 413.333 / 027.762 4256 / 1000 Balance 413.333 / 291.742 9862 / 1000 Intake: IV 413.333 / 962.162 3772 / 1000 D5nss + 20Meq KCl 20 meq In 1, 1000 / 1000 000 ml @ 75 mls/hr IV .[id number] JAYSHREE Rx#:[id number] Magnesium Sulfate / D5w 1 gm In 100 / 100 100 ml @ 50 mls/hr IV ONE ONE Rx#:[id number] Nss + 20Meq KCl 20 meq In 1,000 313.333 / 313.333 ml @ 100 mls/hr IV .Q10H ONE Rx#:[id number] Other: Other Intake Source sips, chips Weight 56.3 kg (1) Syncope Syncope type: unspecified Qualified Code(s): R55 - Syncope and collapse (2) Anemia Anemia type: unspecified type Qualified Code(s): D64.9 - Anemia, unspecified
[2024-01-28] MEDS: PROMETHAZINE HCL 6.25 MG in SODIUM CHLORIDE 0.9% 50 ML IV PRN (18:41)
--- NOTE | 2024-01-28 20:24 | Electrocardiogram Report ---
Test Reason : Blood Pressure : / mmHG Vent. Rate : 086 BPM Atrial Rate : 086 BPM P-R Int : 156 ms QRS Dur : 072 ms QT Int : 368 ms P-R-T Axes : 048 -16 046 degrees QTc Int : 440 ms Normal sinus rhythm Inferior infarct , age undetermined Abnormal ECG When compared with ECG of 19-NOV-2023 04:48, Inferior infarct is now Present Nonspecific T wave abnormality now evident in Anterior leads Confirmed by Toni Sawyer ([id number]) on 01/28/2024 8:24:03 PM Referred By: Confirmed By:Toni Sawyer
[2024-01-28] MEDS: FLUTICASONE PROPIONATE NA SPR 16 GM BTL SCH (20:43)
--- NOTE | 2024-01-28 20:59 | Communication Note ---
Date of Service: January 28, 2024 Made aware by RN of SBP 90s to 110s, heart rate 50 to 80s since noon time. Patient comfortable. AP Recurrent syncope Hypotension currently on midodrine Decrease maintenance verapamil dose from 80 mg twice daily to 40 mg twice daily for now.
[2024-01-28] MEDS: VERAPAMIL HCL 40 MG TAB PO SCH (22:08)
[2024-01-29 06:48] LABS: Hematocrit (blood only) 31.3 % (37.0-47.0); Hemoglobin 9.1 g/dl (12.0-16.0); Mean Corpuscular Hemoglobin 25.3 pg (25.0-34.0); Mean Corpuscular Hgb Conc 29.1 g/dL (32.0-36.0); Mean Corpuscular Volume 86.9 fL (80.0-100.0); Mean Platelet Volume 10.3 fL (9.4-12.4); Platelet Count 277 K/uL (130-400); RDW Coefficient of Variation 20.5 % (11.5-14.5); RDW Standard Deviation 66.2 fL (36.4-46.3); White Blood Count 5.12 K/ul (4.8-10.8)
[2024-01-29 07:10] LABS: BUN Creatinine Ratio 14.3 (10-20); Calcium 8.8 mg/dl (8.6-10.3); Creatinine Clr Calc Pharmacy 82.3 ml/min; Est GFR (African American) 111.4 ml/min; Est GFR (Non-African American) 96.1 ml/min; Magnesium 1.9 mg/dl (1.7-2.4); Potassium 3.7 mmol/L (3.5-5.1)
[2024-01-29 07:29] LABS: Folate (Folic Acid),Ser orPlas 4.67 ng/ml (>5.38)
[2024-01-29 07:30] LABS: Ferritin 5.7 ng/ml (8-388)
[2024-01-29] MEDS ORDERED: HEPARIN 100 UNIT/ML 5ML FLUSH FLUSH PRN (08:24)
[2024-01-29] MEDS: SODIUM CHLORIDE 0.9% 1,000 ML IV ONE (11:11)
[2024-01-29] MEDS: FOLIC ACID 1 MG TAB PO SCH (11:12)
[2024-01-29] MEDS: MECLIZINE HCL 25 MG TAB PO PRN (11:12)
[2024-01-29] MEDS: FERROUS SULFATE 325 MG TAB PO SCH (12:19)
[2024-01-29] MEDS: IRON SUCROSE 300 MG in SODIUM CHLORIDE 0.9% 250 ML IV ONE (13:22)
--- NOTE | 2024-01-29 15:43 | Hospitalist Progress Note ---
Date of Service January 29, 2024 Assessment & Plan (1) Syncope: Plan: Recurrent syncope Hypotension Paroxysmal A-fib --MRI Brain: No acute intracranial abnormality. No abnormal enhancement. -- Normal orthostatics --Monitor on telemetry to rule out arrhythmias H/O paroxysmal atrial fibrillation, PAT, NSVT H/O intolerance to beta-blockers, amiodarone deferred due to interstitial lung disease in the past Also started on midodrine Appreciate cardiology input Continue verapamil Not on anticoagulation due to longstanding anemia Need ZIO monitor as outpatient May need watchman's procedure eventually. Verapamil dose decreased to 40 mg twice a day due to hypotension Needs follow-up with cardiology on discharge Continue IV fluids Monitor BP closely Suspected Mnire's disease Given complains of dizziness, R ear tinnitus, mild right ear decreased hearing Counseled to limit salt, caffeine, alcohol use Considered adding diuretics if appropriate Meclizine as needed Advised to follow-up with ENT as outpatient PT darleen requested Chronic anemia Presented with coffee-ground emesis Fecal occult negative H/O hiatal hernia, PUD, celiac disease Iron, folate deficiency Anemia workup suggestive of significant iron, folate deficiency Hemoglobin at baseline Continue IV PPI Monitor CBC Advance to regular diet Will give a dose of IV Venofer today Started on folate supplements Asthma CYNTHIA on CPAP No signs of exacerbation Continue home medications Saturating well on room air Hypertension Continue verapamil Monitor BP Adjust antihypertensive doses as needed Hyperlipidemia H/O statin intolerance Hypothyroidism Continue levothyroxine Irritable bowel syndrome Celiac disease PUD Munchausen syndrome as per records Chronic abdominal pain Follow-up with GI as outpatient Continue PPI, Carafate CAD Continue verapamil Resume aspirin as able DVT Px: SCDs for now Code Status Full code Admission and Anticipated Discharge Date Admission Date: January 28, 2024 Subjective Patient is seen and examined at bedside States having headache and minimal dizziness today No other complaints today Review of Systems Review of Systems: All systems reviewed & are unremarkable except as noted in Subjective Physical Exam Physical Exam: Physical Exam: Vitals signs as noted above General Appearance: Thin, frail, chronic a ill-appearing, no apparent distress Head: normocephalic, Atraumatic Eyes: normal inspection, EOMI Neck: supple, Trachea midline Respiratory/Chest: Normal breath sounds, CTA, + port, no accessory muscle use Cardiovascular: S1, S2, ? faint murmur Abdomen/GI:Soft, Non tender, + abdominal hernia, bowel sounds present Extremities/Musculoskeletal:normal inspection, no edema Neurologic/Psych:AAOX3, grossly no focal neurological deficits Skin: normal color, warm Results & Data Results & Data Vital Signs (Past 12 Hours) Vital Signs Temp Pulse Pulse Resp BP BP Pulse Ox 01/29/24 12:01 36.7 C 66 16 118/71 97 01/29/24 08:30 01/29/24 08:09 36.8 C 59 L 18 100/64 95 01/29/24 07:18 57 L O2 Del Method 01/29/24 12:01 Room Air 01/29/24 08:30 Room Air 01/29/24 08:09 Room Air 01/29/24 07:18 Laboratory Results Short CBC 01/29/24 Range/Units 06:20 WBC 5.12 (4.8-10.8) K/ul Hgb 9.1 L (12.0-16.0) g/dl Hct 31.3 L (37.0-47.0) % Plt Count 277 (130-400) K/uL BMP 01/29/24 06:20 Sodium 141 Potassium 3.7 Chloride 114 H Carbon Dioxide 23 BUN 9 Creatinine 0.63 Glucose 99 Calcium 8.8 (1) Syncope Syncope type: unspecified Qualified Code(s): R55 - Syncope and collapse
[2024-01-29] MEDS: oxyCODONE HCL IR 5 MG TAB (IMMEDIATE RELEASE) PO PRN (17:20)
[2024-01-30] MEDS: ONDANSETRON INJ 2 MG/ML 2 ML VIAL IV PRN
[2024-01-30 06:47] LABS: Hematocrit (blood only) 29.2 % (37.0-47.0); Hemoglobin 8.7 g/dl (12.0-16.0); Mean Corpuscular Hgb Conc 29.8 g/dL (32.0-36.0); Mean Corpuscular Volume 87.2 fL (80.0-100.0); Mean Platelet Volume 10.5 fL (9.4-12.4); Platelet Count 239 K/uL (130-400); RDW Coefficient of Variation 20.4 % (11.5-14.5); RDW Standard Deviation 65.7 fL (36.4-46.3); Red Blood Count 3.35 M/uL (4.20-5.40); White Blood Count 4.16 K/ul (4.8-10.8)
[2024-01-30 07:15] LABS: BUN Creatinine Ratio 16.3 (10-20); Calcium 8.6 mg/dl (8.6-10.3); Creatinine Clr Calc Pharmacy 57.1 ml/min; Est GFR (African American) 77.3 ml/min; Est GFR (Non-African American) 66.7 ml/min; Potassium 3.9 mmol/L (3.5-5.1)
[2024-01-30] MEDS: IRON SUCROSE 300 MG in SODIUM CHLORIDE 0.9% 250 ML IV ONE (09:41)
--- NOTE | 2024-01-30 15:52 | Hospitalist Progress Note ---
Date of Service January 30, 2024 Assessment & Plan (1) Syncope: Plan: Recurrent syncope Hypotension Paroxysmal A-fib --MRI Brain: No acute intracranial abnormality. No abnormal enhancement. -- Normal orthostatics --Monitor on telemetry to rule out arrhythmias H/O paroxysmal atrial fibrillation, PAT, NSVT H/O intolerance to beta-blockers, amiodarone deferred due to interstitial lung disease in the past Also started on midodrine Appreciate cardiology input Continue verapamil Not on anticoagulation due to longstanding anemia Need ZIO monitor as outpatient May need watchman's procedure eventually. Verapamil dose decreased to 40 mg twice a day due to hypotension Needs follow-up with cardiology on discharge Received IV fluids Blood pressure stable Likely discharge in 1 to 2 days Suspected Mnire's disease Given complains of dizziness, R ear tinnitus, mild right ear decreased hearing Counseled to limit salt, caffeine, alcohol use Considered adding diuretics if appropriate Meclizine as needed Advised to follow-up with ENT as outpatient PT eval requested Chronic anemia Presented with coffee-ground emesis Fecal occult negative H/O hiatal hernia, PUD, celiac disease Iron, folate deficiency Anemia workup suggestive of significant iron, folate deficiency Hemoglobin at baseline Continue IV PPI Monitor CBC Advance to regular diet Continue iron, folate supplements Will give additional dose of IV Venofer today Hemoglobin 8.7 today Drop in hemoglobin likely dilutional secondary to IV fluids Monitor CBC Asthma CYNTHIA on CPAP No signs of exacerbation Continue home medications Saturating well on room air Hypertension Continue verapamil Monitor BP Adjust antihypertensive doses as needed Hyperlipidemia H/O statin intolerance Hypothyroidism Continue levothyroxine Irritable bowel syndrome Celiac disease PUD Munchausen syndrome as per records Chronic abdominal pain Follow-up with GI as outpatient Continue PPI, Carafate CAD Continue verapamil Resume aspirin as able DVT Px: SCDs for now Code Status Full code Admission and Anticipated Discharge Date Admission Date: January 28, 2024 Subjective Patient is seen and examined at bedside Dizziness better today Has nausea but no vomiting Reports generalized weakness and headache No other complaints Denies any chest pain, dyspnea, abdominal pain No recurrence of coffee-ground emesis Review of Systems Review of Systems: All systems reviewed & are unremarkable except as noted in Subjective Physical Exam Physical Exam: Physical Exam: Vitals signs as noted above General Appearance: Thin, frail, chronic a ill-appearing, no apparent distress Head: normocephalic, Atraumatic Eyes: normal inspection, EOMI Neck: supple, Trachea midline Respiratory/Chest: Normal breath sounds, CTA, + port, no accessory muscle use Cardiovascular: S1, S2, ? faint murmur Abdomen/GI:Soft, Non tender, + abdominal hernia, bowel sounds present Extremities/Musculoskeletal:normal inspection, no edema Neurologic/Psych:AAOX3, grossly no focal neurological deficits Skin: normal color, warm Results & Data Results & Data Vital Signs (Past 12 Hours) Vital Signs Temp Pulse Pulse Resp BP Pulse Ox O2 Del Method 01/30/24 11:49 36.6 C 69 18 122/77 96 Room Air 01/30/24 07:55 36.7 C 68 16 119/78 98 Room Air 01/30/24 07:11 52 L 01/30/24 03:53 36.6 C 61 18 103/66 98 CPAP Laboratory Results Short CBC 01/30/24 Range/Units 06:22 WBC 4.16 L (4.8-10.8) K/ul Hgb 8.7 L (12.0-16.0) g/dl Hct 29.2 L (37.0-47.0) % Plt Count 239 (130-400) K/uL [facility] 01/30/24 06:22 Sodium 141 Potassium 3.9 Chloride 115 H Carbon Dioxide 24 BUN 15 Creatinine 0.92 Glucose 86 Calcium 8.6 (1) Syncope Syncope type: unspecified Qualified Code(s): R55 - Syncope and collapse
[2024-01-30] MEDS: POLYETHYLENE (MIRALAX) 17 GM PACK PO PRN (22:09)
[2024-01-31 07:01] LABS: Hematocrit (blood only) 29.7 % (37.0-47.0); Hemoglobin 8.9 g/dl (12.0-16.0)
[2024-01-31 07:23] LABS: BUN Creatinine Ratio 13.6 (10-20); Calcium 8.7 mg/dl (8.6-10.3); Creatinine Clr Calc Pharmacy 64.8 ml/min; Est GFR (African American) 90.2 ml/min; Est GFR (Non-African American) 77.8 ml/min; Potassium 3.7 mmol/L (3.5-5.1)
[2024-01-31] MEDS: IRON SUCROSE 300 MG in SODIUM CHLORIDE 0.9% 250 ML IV ONE (10:56)
--- NOTE | 2024-01-31 13:26 | Hospitalist Progress Note ---
Date of Service January 31, 2024 Assessment & Plan (1) Syncope: Plan: Recurrent syncope Hypotension Paroxysmal A-fib --MRI Brain: No acute intracranial abnormality. No abnormal enhancement. -- Normal orthostatics --Monitor on telemetry to rule out arrhythmias H/O paroxysmal atrial fibrillation, PAT, NSVT H/O intolerance to beta-blockers, amiodarone deferred due to interstitial lung disease in the past Also started on midodrine Appreciate cardiology input Continue verapamil Not on anticoagulation due to longstanding anemia Need ZIO monitor as outpatient May need watchman's procedure eventually. Verapamil dose decreased to 40 mg twice a day due to hypotension Needs follow-up with cardiology on discharge Received IV fluids Plan to be discharged home today Suspected Mnire's disease Given complains of dizziness, R ear tinnitus, mild right ear decreased hearing Counseled to limit salt, caffeine, alcohol use Considered adding diuretics if appropriate Meclizine as needed Advised to follow-up with ENT as outpatient Had PT eval Chronic anemia Presented with coffee-ground emesis Fecal occult negative H/O hiatal hernia, PUD, celiac disease Iron, folate deficiency Anemia workup suggestive of significant iron, folate deficiency Hemoglobin at baseline Continue PPI Monitor CBC Advance to regular diet Continue iron, folate supplements Hemoglobin 8.9 today Drop in hemoglobin likely dilutional secondary to IV fluids Monitor CBC Received IV Venofer Asthma CYNTHIA on CPAP No signs of exacerbation Continue home medications Saturating well on room air Hypertension Continue verapamil Monitor BP Adjust antihypertensive doses as needed Hyperlipidemia H/O statin intolerance Hypothyroidism Continue levothyroxine Irritable bowel syndrome Celiac disease PUD Munchausen syndrome as per records Chronic abdominal pain Follow-up with GI as outpatient Continue PPI, Carafate CAD Continue verapamil Resume aspirin as able DVT Px: SCDs for now Code Status Full code Disposition Home Admission and Anticipated Discharge Date Admission Date: January 28, 2024 Subjective Patient is seen and examined at bedside States feeling well today Offers no new complaints Transient PAT overnight but otherwise no arrhythmias on monitor Dizziness resolved Denies any chest pain, dyspnea, abdominal pain, palpitations Plan to be discharged home today Review of Systems Review of Systems: All systems reviewed & are unremarkable except as noted in Subjective Physical Exam Physical Exam: Physical Exam: Vitals signs as noted above General Appearance: Thin, frail, chronic a ill-appearing, no apparent distress Head: normocephalic, Atraumatic Eyes: normal inspection, EOMI Neck: supple, Trachea midline Respiratory/Chest: Normal breath sounds, CTA, + port, no accessory muscle use Cardiovascular: S1, S2, ? faint murmur Abdomen/GI:Soft, Non tender, + abdominal hernia, bowel sounds present Extremities/Musculoskeletal:normal inspection, no edema Neurologic/Psych:AAOX3, grossly no focal neurological deficits Skin: normal color, warm Results & Data Results & Data Vital Signs (Past 12 Hours) Vital Signs Temp Pulse Pulse Resp BP Pulse Ox O2 Del Method 01/31/24 11:27 36.6 C 117 H 20 102/66 96 Room Air 01/31/24 08:14 62 01/31/24 07:42 36.9 C 62 20 103/56 L 95 Room Air 01/31/24 02:16 36.6 C 60 18 115/76 98 Room Air, CPAP Laboratory Results Short CBC 01/31/24 Range/Units 06:29 Hgb 8.9 L (12.0-16.0) g/dl Hct 29.7 L (37.0-47.0) % BMP 01/31/24 06:29 Sodium 143 Potassium 3.7 Chloride 113 H Carbon Dioxide 26 BUN 11 Creatinine 0.81 Glucose 91 Calcium 8.7 (1) Syncope Syncope type: unspecified Qualified Code(s): R55 - Syncope and collapse
--- NOTE | 2024-01-31 13:41 | Discharge Summary ---
Date of Service January 31, 2024 Admission HPI Per Admitting Provider History obtained from patient and records. Medical history is significant for paroxysmal A-fib off anticoagulation secondary to recurrent anemia, history of VT as per records, asthma/COPD/CYNTHIA on CPAP, history of idiopathic cardiac arrest, paroxysmal atrial tachycardia, hypertension, hyperlipidemia, statin intolerance, celiac disease, GERD, PUD, irritable bowel syndrome, hypothyroidism, chronic anemia (baseline hemoglobin 9), Munchausen syndrome as per records, migraine, endometriosis, history MRSA. Last confinement November 2023 for recurrent syncope attributed to symptomatic anemia. Orthostatic vitals negative. Cardiology added digoxin for A-fib rate control. Anticoagulation deferred due to anemia. Outpatient endoscopy scheduled April 2024. Patient with recurrent syncopal events since last week. Total of 6 episodes usually related to change in position as per patient. Dry cough symptoms with achy chest pain and SOB. Coffee-ground emesis with some abdominal discomfort. Patient not sure if emesis from iron tablets. No melena or hematochezia. No fluid retention. No witnessed seizures, tongue biting, or incontinence. Headache from possible migraine. Appetite not too good. MEDICAL HISTORY: As above. 2013 EGD duodenal inflammation consistent with celiac disease, stricture SURGICAL HISTORY: TAHBSO, cholecystectomy, appendectomy, ankle surgery, knee surgery, nasal reconstruction, sinus surgery, finger tendon sheath surgery, spine surgery FAMILY HISTORY: Family history of unknown. Patient is adopted. PERSONAL/SOCIAL HISTORY: Nonsmoker. No chronic ETOH intake. 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 Admission Exam Per Admitting Provider GENERAL: Comfortable, incessant dry cough, no respiratory distress SKIN: Pallor, warm HEENT: Pale palpebral conjunctivae, no ptosis, dry buccal mucosa NECK : Supple, no tenderness CHEST : Decreased breath sounds, no tenderness HEART : RRR, no obvious murmurs ABDOMEN: Some distention, minimal epigastric tenderness RECTAL : Intact sphincter, yellow stool (FOBT negative) EXTREMITIES : Minimal LE swelling, no LE tenderness, no other conspicuous deformities noted NEUROLOGIC : Coherent, no facial asymmetry, no other gross focality Principal Diagnosis Recurrent syncope Hypertension Possible Mnire's disease Iron deficiency anemia Folic acid deficiency Discharge Data Allergies Allergy/AdvReac Type Severity Reaction Status Date / Time bee venom protein (honey bee) Allergy Severe ANAPHYLAXIS Verified 01/27/24 19:35 coconut Allergy Severe RASH; SOB Verified 01/27/24 19:35 gluten Allergy Severe CELIAC'S Verified 01/27/24 19:35 latex Allergy Severe Anaphylaxis Verified 01/27/24 19:35 Penicillins Allergy Severe Anaphylaxis Verified 01/27/24 19:35 Sulfa (Sulfonamide Allergy Severe Anaphylaxis Verified 01/27/24 19:35 Antibiotics) ROBER Inhibitors Allergy Intermediate RASH/TACHYC Verified 01/27/24 19:35 ARDIA cefaclor Allergy Intermediate CECLOR--RASH/UPSET Verified 01/27/24 19:35 STOMACH egg Allergy Intermediate RASH & Verified 01/27/24 19:35 Bloating Influenza Virus Vaccines Allergy Intermediate rash and Verified 01/27/24 19:35 bloating lactose Allergy Intermediate BLOATING; Verified 01/27/24 19:35 DIARRHEA; VOMITING tetracycline Allergy Intermediate NAUSEA/VOMI Verified 01/27/24 19:35 TING/RASH Quinolones Allergy Unknown ALLERGY TO Verified 01/27/24 19:35 AVELOX ,CAN TAKE CIPRO OR LEVAQUIN W/O RXN Beta-Blockers AdvReac Intermediate intolerance Verified 01/27/24 19:35 (Beta-Adrenergic Bloc as per records Consultations 01/27/24 19:17 ED Decision to Admit Stat 01/28/24 08:24 Consult Cardiology Routine Procedures Performed Laboratory Results WBC 4.16 K/ul (4.8-10.8) L 01/30/24 06:22 RBC 3.35 M/uL (4.20-5.40) L 01/30/24 06:22 Hgb 8.9 g/dl (12.0-16.0) L 01/31/24 06:29 Hct 29.7 % (37.0-47.0) L 01/31/24 06:29 MCV 87.2 fL (80.0-100.0) 01/30/24 06:22 MCH 26.0 pg (25.0-34.0) 01/30/24 06:22 MCHC 29.8 g/dL (32.0-36.0) L 01/30/24 06:22 RDW Std Deviation 65.7 fL (36.4-46.3) H 01/30/24 06:22 RDW Coeff of Reginaldo 20.4 % (11.5-14.5) H 01/30/24 06:22 Plt Count 239 K/uL (130-400) 01/30/24 06:22 MPV 10.5 fL (9.4-12.4) 01/30/24 06:22 Immature Gran % (Auto) 0.2 % 01/27/24 17:18 Neut % (Auto) 66.4 % 01/27/24 17:18 Lymph % (Auto) 25.0 % 01/27/24 17:18 Robertson % (Auto) 6.6 % 01/27/24 17:18 Eos % (Auto) 1.3 % 01/27/24 17:18 Baso % (Auto) 0.5 % 01/27/24 17:18 Neut # (Auto) 4.24 K/uL (1.40-6.50) 01/27/24 17:18 Lymph # (Auto) 1.59 K/uL (1.20-3.40) 01/27/24 17:18 Robertson # (Auto) 0.42 K/uL (0.11-0.59) 01/27/24 17:18 Eos # (Auto) 0.08 K/uL (0.00-0.50) 01/27/24 17:18 Baso # (Auto) 0.03 K/uL (0.00-0.20) 01/27/24 17:18 Immature Gran # (Auto) 0.01 K/uL (0.01-0.20) 01/27/24 17:18 Anisocytosis Present 01/27/24 17:18 APTT 24 Seconds (21-31) 01/27/24 17:19 PTT Ratio 0.9 01/27/24 17:19 Sodium 143 mmol/L (136-145) 01/31/24 06:29 Potassium 3.7 mmol/L (3.5-5.1) 01/31/24 06:29 Chloride 113 mmol/L (98-107) H 01/31/24 06:29 Carbon Dioxide 26 mmol/L (21-32) 01/31/24 06:29 Anion Gap 4 (3-11) 01/31/24 06:29 BUN 11 mg/dl (6-23) 01/31/24 06:29 Creatinine 0.81 mg/dl (0.6-1.2) 01/31/24 06:29 Est Cr Clr Drug Dosing 64.8 ml/min 01/31/24 06:29 Est GFR ( Amer) 90.2 ml/min 01/31/24 06:29 Est GFR (Non-Af Amer) 77.8 ml/min 01/31/24 06:29 BUN/Creatinine Ratio 13.6 (10-20) 01/31/24 06:29 Glucose 91 mg/dl (70-99(Fasting)) 01/31/24 06:29 Calcium 8.7 mg/dl (8.6-10.3) 01/31/24 06:29 Magnesium 1.9 mg/dl (1.7-2.4) 01/29/24 06:20 Iron 24 mcg/dl (35-150) L 01/29/24 06:20 TIBC 302 mcg/dl (250-450) 01/29/24 06:20 Unsaturated IBC 278 mcg/dl (155-355) 01/29/24 06:20 Transferrin % Sat 8 % (15-50) L 01/29/24 06:20 Ferritin 5.7 ng/ml (8-388) L 01/29/24 06:20 Total Bilirubin 0.1 mg/dl (0.2-1.0) L 01/27/24 17:18 AST 17 U/L (13-39) 01/27/24 17:18 ALT 14 U/L (7-52) 01/27/24 17:18 Alkaline Phosphatase 70 U/L (34-104) 01/27/24 17:18 Troponin I High Sens 6.0 pg/ml (0-14) 01/27/24 23:00 Total Protein 6.1 gm/dl (6.0-8.3) 01/27/24 17:18 Albumin 3.6 gm/dl (3.4-5.0) 01/27/24 17:18 Globulin 2.5 gm/dl (2.5-4.0) 01/27/24 17:18 Albumin/Globulin Ratio 1.4 (0.9-2) 01/27/24 17:18 Lipase 20 U/L (11-82) 01/27/24 17:18 Vitamin B12 488 pg/ml (180-914) 01/29/24 06:20 Folate 4.67 ng/ml (>5.38) L 01/29/24 06:20 Urine Color Yellow 01/27/24 21:57 Urine Appearance Clear (Clear) 01/27/24 21:57 Urine pH 6.0 (4.5-7.5) 01/27/24 21:57 Ur Specific [place] 1.025 (1.000-1.030) 01/27/24 21:57 Urine Protein Negative (Negative) 01/27/24 21:57 Urine Glucose (UA) Negative (Negative) 01/27/24 21:57 Urine Ketones Trace (Negative) H 01/27/24 21:57 Urine Blood Negative (Negative) 01/27/24 21:57 Urine Nitrite Negative (Negative) 01/27/24 21:57 Urine Bilirubin Negative (Negative) 01/27/24 21:57 Urine Urobilinogen Negative (Negative) 01/27/24 21:57 Ur Leukocyte Esterase Negative (Negative) 01/27/24 21:57 Digoxin < 0.3 ng/ml (0.8-2.0) L 01/27/24 17:19 Adenovirus (PCR) Not Detected (NotDetected) 01/27/24 20:26 B. pertussis DNA (PCR) Not Detected (NotDetected) 01/27/24 20:26 B.parapertussis DNA PCR Not Detected (NotDetected) 01/27/24 20:26 C. pneumoniae DNA (PCR) Not Detected (NotDetected) 01/27/24 20:26 Coronavirus OC43 (PCR) Not Detected (NotDetected) 01/27/24 20:26 Coronavirus HKU1 (PCR) Not Detected (NotDetected) 01/27/24 20:26 Coronavirus 229E (PCR) Not Detected (NotDetected) 01/27/24 20:26 SARS-CoV-2 (PCR) Not Detected (NotDetected) 01/27/24 20:26 Coronavirus NL63 (PCR) Not Detected (NotDetected) 01/27/24 20:26 Human Metapneumovir PCR Not Detected (NotDetected) 01/27/24 20:26 Influenza Type A (PCR) Not Detected (NotDetected) 01/27/24 20:26 Influenza Type B (PCR) Not Detected (NotDetected) 01/27/24 20:26 M. pneumoniae (PCR) Not Detected (NotDetected) 07/25/24 20:26 Parainfluenza 1 (PCR) Not Detected (NotDetected) 01/27/24 20:26 Parainfluenza 2 (PCR) Not Detected (NotDetected) 01/27/24 20:26 Parainfluenza 3 (PCR) Not Detected (NotDetected) 01/27/24 20:26 Parainfluenza 4 (PCR) Not Detected (NotDetected) 01/27/24 20:26 RSV (PCR) Not Detected (NotDetected) 01/27/24 20:26 Entero/Rhino (PCR) Not Detected (NotDetected) 01/27/24 20:26 Blood Type A Positive 01/27/24 17:19 Antibody Screen POSITIVE A 01/27/24 17:19 Antibody Identification Anti-e 01/27/24 17:19 Antibody ID Comment 01/27/24 17:19 Impressions Chest X-Ray 01/27/24 17:10 XR chest 1V portable HISTORY: 63 years-old Female Chest pain, nonspecific COMPARISON: 11/16/2023 TECHNIQUE: AP view the chest FINDINGS: Right IJ [id number] catheter appears unchanged. Cardiac silhouette is mildly enlarged. No pneumothorax or pleural effusion. Cervical spinal fusion hardware. Bones appear grossly intact. IMPRESSION: No acute process. ACT 112: Negative or not required by law. The above report was generated using voice recognition software. It may contain grammatical, syntax or spelling errors. Electronically signed by: Andrez Foster M.D. 01/27/2024 5:[address] 01/27/24 17:24 Exam(s): CT HEAD Without Contrast EXAM: CT Head Without Intravenous Contrast CLINICAL HISTORY: Reason for exam: gannon. TECHNIQUE: Axial computed tomography images of the head/brain without intravenous contrast. CTDI is 35.72 mGy and DLP is 547.75 mGy-cm. Automated exposure control was utilized for the study. A dose lowering technique was utilized adhering to the principles of ALARA. COMPARISON: CT head on 08/24/2023 FINDINGS: Brain: No acute infarct or hemorrhage identified. No extra-axial fluid collection. No mass effect or midline shift. Scattered areas of hypoattenuation in the supratentorial white matter likely represent chronic small vessel ischemic changes. Ventricles and sulci: Prominence of the ventricles and sulci is likely secondary to cerebral volume loss. Bones: Normal. No bony lesion or acute fracture. Subcutaneous tissues: Normal. Sinuses: Normal. No air-fluid levels or mucosal thickening. Mastoid air cells: Normal. Orbits: Grossly unremarkable. Other: Atherosclerotic calcifications in the intracranial vasculature. IMPRESSION: 1. No acute intracranial abnormality. 2. Mild chronic small vessel ischemic changes and cerebral volume loss. Electronically signed by: Steffany Syed M.D. 01/27/24 20:20 PM Abdomen/Pelvis CT 01/27/24 20:23 Exam(s): CT ABDOMEN + PELVIS With Contrast IV Amt: 119 ml optiray 320 EXAM: CT Abdomen and Pelvis With Intravenous Contrast CLINICAL HISTORY: Reason for exam: abd pain. TECHNIQUE: Axial computed tomography images of the abdomen and pelvis with intravenous contrast. CTDI is 11.36 mGy and DLP is 571.42 mGy-cm. Automated exposure control was utilized for the study. A dose lowering technique was utilized adhering to the principles of ALARA. CONTRAST: Patient received 119 ml optiray 320 of IV contrast COMPARISON: No relevant prior studies available. FINDINGS: Lung bases: Unremarkable. No mass. No consolidation. ABDOMEN: Liver: Unremarkable. No mass. Gallbladder and bile ducts: Unremarkable. No calcified stones. No ductal dilation. Pancreas: Unremarkable. No mass. No ductal dilation. Spleen: Unremarkable. No splenomegaly. Adrenals: Unremarkable. No mass. Kidneys and ureters: Unremarkable. No solid mass. No hydronephrosis. Stomach and bowel: Diverticulosis, without acute diverticulitis. No small bowel obstruction. No free intraperitoneal air. PELVIS: Appendix: No findings to suggest acute appendicitis. Bladder: Unremarkable. No mass. Reproductive: Unremarkable as visualized. ABDOMEN and PELVIS: Intraperitoneal space: Unremarkable. No free air. No significant fluid collection. Bones/joints: Degenerative changes of the spine. No acute fracture. No dislocation. Soft tissues: Unremarkable. Vasculature: Atherosclerotic changes of the aorta. No abdominal aortic aneurysm. Lymph nodes: Unremarkable. No enlarged lymph nodes. IMPRESSION: Diverticulosis, without acute diverticulitis. No small bowel obstruction. No free intraperitoneal air. Electronically signed by: Tucker Restrepo MD 01/28/24 00:29 AM Chest CTA 01/27/24 20:23 Exam(s): CTA CHEST IV Amt: 119 ml optiray 320 EXAM: CT Angiography Chest With Intravenous Contrast CLINICAL HISTORY: Reason for exam: cp sob. TECHNIQUE: Axial computed tomographic angiography images of the chest with intravenous contrast. CTDI is 10.55 mGy and DLP is 327.61 mGy-cm. Automated exposure control was utilized for the study. A dose lowering technique was utilized adhering to the principles of ALARA. MIP reconstructed images were created and reviewed. COMPARISON: No relevant prior studies available. FINDINGS: Pulmonary arteries: Unremarkable. No acute pulmonary embolus. Aorta: No acute findings. No thoracic aortic aneurysm. Lungs: Unremarkable. No mass. No consolidation. Pleural space: Unremarkable. No significant effusion. No pneumothorax. Heart: Unremarkable. No cardiomegaly. No significant pericardial effusion. No evidence of RV dysfunction. Bones/joints: Degenerative changes of the spine. No acute fracture. No dislocation. Soft tissues: Unremarkable. Lymph nodes: Unremarkable. No enlarged lymph nodes. Gallbladder and bile ducts: Cholecystectomy. Tubes, lines and devices: RIGHT Port-A-Cath terminates in the RIGHT atrium. IMPRESSION: No acute pulmonary embolus. Electronically signed by: Tucker Restrepo MD 01/27/24 23:55 PM Brain MRI 01/28/24 08:24 MR brain wo/w con HISTORY: 63 years-old Female Recurrent Syncope COMPARISON: Head CT 01/27/2024, brain MRI 12/03/2008 TECHNIQUE: Multiplanar multisequence MRI of the brain was obtained with and without IV contrast. FINDINGS: Midline structures appear unremarkable. Degenerative and postoperative changes of the imaged cervical spine. No restricted diffusion. Cerebral venous sinuses and major arterial flow voids appear patent. The skull, orbits and soft tissues are unremarkable. Mastoid air cells are clear. Mild mucosal thickening of the nasal turbinates and paranasal sinuses. 2.8 cm nasal septal defect is a chronic finding. Involutional changes with mild T2/FLAIR hyperintense foci throughout the white matter suggestive of chronic microvascular ischemic disease, mildly progressed. There is no acute intracranial hemorrhage, midline shift, abnormal extra-axial collection, hydrocephalus or intra-axial mass. No abnormal enhancement. IMPRESSION: 1. No acute intracranial abnormality. 2. No abnormal enhancement. ACT 112: Negative or not required by law. The above report was generated using voice recognition software. It may contain grammatical, syntax or spelling errors. Electronically signed by: Andrez Foster M.D. 01/28/2024 12:30 PM Ordered Studies 01/27/24 17:24 CT head/brain wo con Stat 01/27/24 20:23 CT Abd and Pelvis [CT abd pelvis IV con only] Stat CT angio chest PE protocol Stat 01/28/24 08:24 MRI Brain [MR brain wo/w con] Urgent Hospital Course (1) Syncope: Recurrent syncope Hypotension Paroxysmal A-fib --MRI Brain: No acute intracranial abnormality. No abnormal enhancement. -- Normal orthostatics --Monitor on telemetry to rule out arrhythmias H/O paroxysmal atrial fibrillation, PAT, NSVT H/O intolerance to beta-blockers, amiodarone deferred due to interstitial lung disease in the past Also started on midodrine Appreciate cardiology input Continue verapamil Not on anticoagulation due to longstanding anemia Need ZIO monitor as outpatient May need watchman's procedure eventually. Verapamil dose decreased to 40 mg twice a day due to hypotension Needs follow-up with cardiology on discharge Received IV fluids Plan to be discharged home today Suspected Mnire's disease Given complains of dizziness, R ear tinnitus, mild right ear decreased hearing Counseled to limit salt, caffeine, alcohol use Considered adding diuretics if appropriate Meclizine as needed Advised to follow-up with ENT as outpatient Had PT eval Chronic anemia Presented with coffee-ground emesis Fecal occult negative H/O hiatal hernia, PUD, celiac disease Iron, folate deficiency Anemia workup suggestive of significant iron, folate deficiency Hemoglobin at baseline Continue PPI Monitor CBC Advance to regular diet Continue iron, folate supplements Hemoglobin 8.9 today Drop in hemoglobin likely dilutional secondary to IV fluids Monitor CBC Received IV Venofer Asthma CYNTHIA on CPAP No signs of exacerbation Continue home medications Saturating well on room air Hypertension Continue verapamil Monitor BP Adjust antihypertensive doses as needed Hyperlipidemia H/O statin intolerance Hypothyroidism Continue levothyroxine Irritable bowel syndrome Celiac disease PUD Munchausen syndrome as per records Chronic abdominal pain Follow-up with GI as outpatient Continue PPI, Carafate CAD Continue verapamil Resume aspirin as able DVT Px: SCDs for now Code Status Full code Disposition Home Total Time Total Time Spent Total Time Spent (In Minutes): 57 minutes Discharge Plan Discharge Items Patient Disposition: Home - Self-Care Reason For Visit: SYNCOPE, POSS UGIB Discharge Diagnosis: Recurrent syncope Hypertension Possible Mnire's disease Iron deficiency anemia Folic acid deficiency Activity: Per Instructions section Exercise/Sports: Gradually increase as tolerated Non-emergency contact: Primary Care Provider, Specialist and [employer]er Call non-emergency contact if: you have any medication questions, your symptoms worsen, your pain is concerning for you and you have a fever Follow-up/Referrals: Vicki Watson MD [Primary Care Provider] - Diet: Heart Healthy Addtl Attending Provider Instructions: Follow-up with your primary care physician Dr. Fede Garza in 1 week Follow-up with your patch sander Dr. Aguirre for outpatient ZIO monitor to rule out arrhythmias as advised Follow-up with your ENT as outpatient for further evaluation of possible Mnire's disease --Discuss with your primary care physician for further need for IV Venofer transfusions --Get blood work (CBC) in 1 week and follow-up with your physician for further recommendations Seek immediate medical attention if your symptoms reoccur or worsen Please take all medications as instructed on discharge list below. Please call if you have any questions or problems. You can reach a [facility] hospitalist on duty at [facility] 24 hours a day by calling [phone] Pending Studies at Discharge: No Stand-Alone Forms: My [facility] Fantasy Shopper, Smoking Cessation Medications and DC Order Prescriptions: New verapamil 40 mg Tablet 40 mg PO BID Qty: 60 1RF folic acid 1 mg Tablet 1 mg PO QAM Qty: 30 1RF midodrine 2.5 mg Tablet 2.5 mg PO TID@0800,1200,1700 Qty: 90 1RF Continued aspirin [Kerwin Low Dose Aspirin] 81 mg Tablet,Delayed Release (Dr/Ec) 81 mg PO QAM ondansetron 4 mg tablet,disintegrating 4 mg translingual Q8H PRN (Reason: Nausea) fexofenadine 180 mg Tablet 180 mg PO DAILY levothyroxine 100 mcg Tablet 100 mcg PO DAILYBB montelukast 10 mg Tablet 10 mg PO HS rabeprazole 20 mg Tablet,Delayed Release (Dr/Ec) 40 mg PO BID amitriptyline 75 mg Tablet 75 mg PO HS cimetidine 400 mg Tablet 400 mg PO BID sucralfate [Carafate] 1 gram Tablet 1 g PO ACHS ergocalciferol (vitamin D2) [Vitamin D2] 1,250 mcg (50,000 unit) Capsule 1,250 mcg PO WK polyethylene glycol 3350 [Miralax] 17 gram/dose Powder 17 g PO QID PRN (Reason: FOR AT LEAST 1 STOOL DAILY) topiramate [Topamax] 100 mg Tablet 100 mg PO BID multivitamin Tablet 1 tab PO DAILY fluticasone propion-salmeterol [Advair Diskus] 250-50 mcg/dose Blister With Device 1 inh INHALATION BID ferrous sulfate 325 mg (65 mg iron) Tablet 325 mg PO QID mometasone 50 mcg/actuation [place],Non-Aerosol 2 spray INTRANASAL BID Rx Instructions: administer into each nostril azelastine 137 mcg (0.1 %) Aerosol,[place] 1 spray INTRANASAL BID Rx Instructions: administer into each nostril epinephrine [EpiPen] 0.3 mg/0.3 mL Auto-Injector 0.3 mg IM DIRECTED PRN (Reason: Allergic Reaction) Combivent Respimat 20-100 mcg/actuation Mist 1 puff INHALATION QID PRN (Reason: USE IN PLACE OF XOPENEX IF NEEDED) Rx Instructions: space evenly during waking hours triamcinolone acetonide 0.1 % Cream 1 applic TOPICAL BID PRN (Reason: PSORIASIS) hyoscyamine sulfate 0.375 mg Tablet Extended Release 12 Hr 0.375 mg PO Q6H PRN (Reason: ABD PAIN) codeine-guaifenesin [Guaifenesin AC] 10-100 mg/5 mL Liquid 5 ml PO Q4H PRN (Reason: Cough) Discontinued verapamil 80 mg tablet 80 mg PO BID Discharge Orders: Discharge Order (Routine); Ordered 01/31/24 Ordered By: Rogelio Hodges Admission Data Admit Date/Time: 01/28/24 12:35 Attending Provider: Rogelio Hodges Admit Provider: Mike Johnson Primary Care Provider: Vicki Watson Other Providers: Mike Johnson; Silverio Aguirre
== END 2024-01-31 15:21 | disposition home or self-care (01) | DRG 312 ==
LOC: ED 16:57 → 2N 16:57

== ENCOUNTER 2024-09-14 15:42 | Inpatient (IN) ==
[2024-09-14 16:50] LABS: Appearance Urine Clear (Clear); Bacteria Urine Automated None Seen (None Seen); Bilirubin Urine Negative (Negative); Blood Urine Negative (Negative); Cast Urine Automated 0-2 /lpf (0-2); Color Urine Yellow; Epithelial Cell Urine Auto 0-2 /hpf (0-2); Glucose Urine UA Negative (Negative); Ketones Urine Negative (Negative); Leukocyte Esterase Urine 2+ (Negative); Nitrite Urine Negative (Negative); Protein Urine Negative (Negative); RBC Urine Automated 0-2 /hpf (0-2); Specific Gravity Urine 1.011 (1.000-1.030); Urobilinogen Urine Negative (Negative); pH Urine 7.5 (4.5-7.5)
[2024-09-14 16:51] LABS: Basophils # (auto) 0.02 K/uL (0.00-0.20); Basophils % (auto) 0.2 %; Eosinophils # (auto) 0.09 K/uL (0.00-0.50); Eosinophils % (auto) 1.1 %; Hematocrit (blood only) 36.8 % (37.0-47.0); Hemoglobin 11.7 g/dl (12.0-16.0); Immature Granulocytes # (auto) 0.03 K/uL (0.01-0.20); Immature Granulocytes % (auto) 0.4 %; Lymphocytes % (auto) 10.7 %; Mean Corpuscular Hemoglobin 33.6 pg (25.0-34.0); Mean Corpuscular Hgb Conc 31.8 g/dL (32.0-36.0); Mean Corpuscular Volume 105.7 fL (80.0-100.0); Mean Platelet Volume 9.7 fL (9.4-12.4); Monocytes # (auto) 0.51 K/uL (0.11-0.59); Neutrophils % (auto) 81.6 %; Platelet Count 287 K/uL (130-400); RDW Coefficient of Variation 15.7 % (11.5-14.5); Red Blood Count 3.48 M/uL (4.20-5.40); White Blood Count 8.45 K/ul (4.8-10.8)
--- NOTE | 2024-09-14 17:02 | XRay Report ---
EXAM: Radiograph of the Chest 1 View INDICATION: Upper abdominal pain TECHNIQUE: Frontal view of the chest. COMPARISON: 06/10/2024 FINDINGS: Lungs and pleural spaces: No consolidation or pulmonary edema. No pleural effusion or pneumothorax. Heart: Shape and configuration within normal limits allowing for technique. Mediastinum: Normal contour. Bones/joints: Lower cervical fusion hardware visualized is intact and well-seated. Soft tissues: No abnormality noted. No radiopaque foreign body noted. Vasculature: Stable ectatic aorta. Tubes, lines and devices: Right internal jugular port catheter tip terminates in the distal SVC. Upper abdomen: No free intraperitoneal air. IMPRESSION: 1. Lines and tubes as above. 2. No acute cardiopulmonary disease. ACT 112: N/A Electronically signed by Kathryn Dahl 09-14-2024 5:02 PM
[2024-09-14 17:07] LABS: Adenovirus PCR Not Detected (NotDetected); Bordetella parapertussis PCR Not Detected (NotDetected); Bordetella pertussis PCR Not Detected (NotDetected); Chlamydia pneumoniae PCR Not Detected (NotDetected); Coronavirus 229E PCR Not Detected (NotDetected); Coronavirus CoV-2 (COVID19)PCR Not Detected (NotDetected); Coronavirus HKU1 PCR Not Detected (NotDetected); Coronavirus NL63 PCR Not Detected (NotDetected); Coronavirus OC43PCR Not Detected (NotDetected); Human Metapneumovirus PCR Not Detected (NotDetected); Influenza A PCR Not Detected (NotDetected); Influenza B PCR Not Detected (NotDetected); Mycoplasma pneumoniae PCR Not Detected (NotDetected); Parainfluenza Virus 1 PCR Not Detected (NotDetected); Parainfluenza Virus 2 PCR Not Detected (NotDetected); Parainfluenza Virus 3 PCR Not Detected (NotDetected); Parainfluenza Virus 4 PCR Not Detected (NotDetected); Respiratory Syncytial VirusPCR Not Detected (NotDetected); Rhinovirus/Enterovirus PCR Not Detected (NotDetected)
[2024-09-14 17:12] LABS: Albumin Level 3.7 gm/dl (3.4-5.0); Bilirubin,Total 0.2 mg/dl (0.2-1.0); Calcium 8.9 mg/dl (8.6-10.3); Potassium 4.5 mmol/L (3.5-5.1)
[2024-09-14] MEDS: ONDANSETRON INJ 2 MG/ML 2 ML VIAL IV STA (17:15)
[2024-09-14] MEDS: MoRPHine SULFATE 4 MG/ML 1 ML CARP\\VIAL IV STA (17:15)
--- NOTE | 2024-09-14 17:15 | Emergency Department Note ---
Impression & Plan Epigastric abdominal pain, Common bile duct dilatation ED Provider Note HISTORY OF PRESENT ILLNESS: Patient is a 64-year-old female presenting with epigastric abdominal pain. Patient reports that over the last week she has been having stuffy nose and thought she just had the flu. She reports that she has family numbers who are diagnosed with the flu and had similar symptoms. However, over the last 4 days she has been having significant amounts of pain in the epigastric region. She reports abdominal surgical history significant for cholecystectomy. She reports nausea but denies any vomiting. Reports that she has not had a bowel movement or passed gas in 4 days. She states that her upper abdomen feels very full and distended. She reports that it "feels like there is a lump in my belly." ROS: as above PHYSICAL EXAM: Constitutional: Patient appears in no acute distress. HENT: Head: Normocephalic and atraumatic. Eyes: EOMI, PERRL Mouth/Throat: Mucous membranes moist. Neck: Trachea midline. Neck supple. Cardiovascular: RRR, No murmurs, rubs or gallops. Intact distal pulses. Pulmonary/Chest: No respiratory distress. Breath sounds clear and equal bilaterally. No wheezes or rales. Abdominal: Abdomen soft, no rebound or guarding. Epigastric TTP Musculoskeletal: No edema, tenderness or deformity noted. Skin: Warm and dry. No rash, erythema, pallor or cyanosis Psychiatric: Appropriate mood and affect for situation. Neurological: Alert and keenly responsive. CN II-XII grossly intact, moving all extremities equally and fully. MDM: - Vitals signs stable. - History obtained via patient. History as above. - Chronic conditions affecting care: hypothyroidism; HLD - Differential diagnoses include, but are not limited to: Choledocholithiasis; pancreatitis; diverticulitis; colitis; ACS; small bowel obstruction - Order placed for continuous cardiac monitoring. At this time, monitor showed rate of 92 bpm with normal sinus rhythm, per my interpretation. - External medical records reviewed. Discharge summary dated 01/31/2024 was reviewed. Patient was admitted to the hospital at that time for recurrent syncope. - Laboratory workup interpreted by myself showed normal WBC; stable electrolytes; normal lipase; normal AST/ALT; normal total bilirubin - UA negative for infection - CXR image reviewed by myself is negative for pneumonia, per my interpretation. - Viral respiratory panel negative - CT abdomen/pelvis with IV contrast showed interval worsening of the bile duct dilatation. There is no evidence of obvious stone. ERCP or MRCP is recommended. - Patient was given 4 mg IV morphine and 4 mg IV zofran for symptomatic relief in ER. - Spoke with asphalt heater operator on-call, Dr. Hernandez, at 19:32. He reviewed the patient's chart and reports that the patient just needs an ERCP and possibly an EGD if the MRCP is negative. He reports it is unlikely for her to have a retained stone with a bilirubin of 0.2. Recommends obtaining an MRCP and keeping the patient n.p.o. after midnight in case she does need an EGD. - Discussion was had with case filler about patient's case and need for admission - Hospitalist, Dr. Coelol, consulted for admission - [facility] ASSESSMENT AND PLAN: Diagnosis: Epigastric abdominal pain; bile duct dilatation Plan: Admit Past Med/Surg History Problem List (Updated 03/02/24 @ 00:10 by Background [place]) Abdominal pain Orthostatic hypotension PSVT (paroxysmal supraventricular tachycardia) Anemia (Acute) Exertional chest pain (Acute) Syncope (Acute) Elevated brain natriuretic peptide (BNP) level (Acute) Anemia (Acute) Atrial tachycardia, paroxysmal Syncope (Acute) Dyspnea (Acute) Palpitation (Acute) Chest pain (Acute) Cough (Acute) Anemia (Acute) Lab test negative for COVID-19 virus (Acute) Shortness of breath (Acute) PAF (paroxysmal atrial fibrillation) Palpitation (Acute) Sinus tachycardia (Acute) Acute exacerbation of chronic obstructive pulmonary disease (Acute) COVID-19 (Acute) Pneumonia (Acute) Hypokalemia Transaminitis Severe persistent asthma with (acute) exacerbation Cough (Acute) Elevated LFTs (Acute) Breathlessness (Acute) Bronchitis (Acute) Encounter for pre-operative examination MRSA (methicillin resistant Staphylococcus aureus) (Chronic) 1999 dx nose septum wound 2019 dx in lungs Dyslipidemia (Chronic) CHARLES (iron deficiency anemia) (Chronic) ferrous sulfate QID. Hypothyroidism (Chronic) no current medication -- TSH normal without meds. IBS (irritable bowel syndrome) (Chronic) GERD (gastroesophageal reflux disease) (Chronic) Celiac disease (Chronic) Gastroparesis (Chronic) Asthma, severe persistent (Chronic) CYNTHIA (obstructive sleep apnea) (Chronic) NSVT (nonsustained ventricular tachycardia) (Chronic) Hx of cardiac cath (Chronic) "2009 - normal coronaries" History of arthroscopic knee surgery (Chronic) left Hx of cholecystectomy (Chronic) S/P nasal surgery (Chronic) S/P surgery on nasal septum (Chronic) "collapsed septum" s/p post op infection that "ate away the septum" S/P GLENNY-BSO (Chronic) Medical History Elevated LFTs Chronic anemia Dehydration Colitis with rectal bleeding Bloody diarrhea Hypertension Adrenal cyst monitoring Kidney stones no surgery Chronic back pain Degenerative disc disease Osteoarthritis Hx of sepsis ~2017 treated at [facility]. Anxiety Mitral valve prolapse follows with Dr Aguirre Heart disease Narcolepsy Chronic obstructive pulmonary disease Sleep apnea CPAP -- have not used in about a year (it broke and has not yet been fixed) NSVT (nonsustained ventricular tachycardia) Asthma, severe persistent Gastroparesis Celiac disease GERD (gastroesophageal reflux disease) IBS (irritable bowel syndrome) Hypothyroidism no current medication -- TSH normal without meds. CHARLES (iron deficiency anemia) ferrous sulfate QID. Dyslipidemia MRSA (methicillin resistant Staphylococcus aureus) 1999 dx nose septum wound 2019 dx in lungs Surgical History History of esophagogastroduodenoscopy (EGD) History of colonoscopy History of section x1 History of dilatation and curettage History of bilateral tubal ligation S/P GLENNY-BSO S/P surgery on nasal septum "collapsed septum" s/p post op infection that "ate away the septum" S/P nasal surgery Hx of cholecystectomy History of arthroscopic knee surgery left Hx of cardiac cath "2009 - normal coronaries" Family History Other No family history of adverse response to anesthesia Social History Smoking Status: Never smoker Second Hand Exposure: No; Do You Dip or Chew Tobacco: No; Hx Alcohol Use: No Hx Substance Use: No Preferred Language: Bengali Communication Ability: Effective Riding Double Required: No Beliefs That Will Affect Care: None marital status: Current Living Situation: Spouse and Family Current Living Situation Comment: and adult son Feels Safe at Home: Yes Assistive Devices: CPAP Allergies Allergies Allergy/AdvReac Type Severity Reaction Status Date / Time bee venom protein (honey bee) Allergy Severe ANAPHYLAXIS Verified 01/27/24 19:35 coconut Allergy Severe RASH; SOB Verified 01/27/24 19:35 gluten Allergy Severe CELIAC'S Verified 01/27/24 19:35 latex Allergy Severe Anaphylaxis Verified 01/27/24 19:35 Penicillins Allergy Severe Anaphylaxis Verified 01/27/24 19:35 Sulfa (Sulfonamide Allergy Severe Anaphylaxis Verified 01/27/24 19:35 Antibiotics) ROBER Inhibitors Allergy Intermediate RASH/TACHYC Verified 01/27/24 19:35 ARDIA cefaclor Allergy Intermediate CECLOR--RASH/UPSET Verified 01/27/24 19:35 STOMACH egg Allergy Intermediate RASH & Verified 01/27/24 19:35 Bloating Influenza Virus Vaccines Allergy Intermediate rash and Verified 01/27/24 19:35 bloating lactose Allergy Intermediate BLOATING; Verified 01/27/24 19:35 DIARRHEA; VOMITING tetracycline Allergy Intermediate NAUSEA/VOMI Verified 01/27/24 19:35 TING/RASH Quinolones Allergy Unknown ALLERGY TO Verified 01/27/24 19:35 AVELOX ,CAN TAKE CIPRO OR LEVAQUIN W/O RXN Beta-Blockers AdvReac Intermediate intolerance Verified 01/27/24 19:35 (Beta-Adrenergic Bloc as per records Home Meds Home Medications Medication Instructions Recorded Confirmed aspirin 81 mg tablet,delayed 81 mg PO DAILY 09/14/24 09/14/24 release atorvastatin 20 mg tablet 20 mg PO DAILY 09/14/24 09/14/24 cimetidine 400 mg tablet 400 mg PO BID 09/14/24 09/14/24 ergocalciferol (vitamin D2) 1,250 1,250 mcg PO UD 09/14/24 09/14/24 mcg (50,000 unit) capsule (Vitamin D2) fexofenadine 180 mg tablet 180 mg PO DAILY 09/14/24 09/14/24 fluticasone 250 mcg-salmeterol 50 1 inh inhalation BID 09/14/24 09/14/24 mcg/dose blistr powdr for inhalation (Advair Diskus) folic acid 1 mg tablet 2 mg PO DAILY 09/14/24 09/14/24 hyoscyamine sulfate 0.375 mg 0.375 mg PO Q6H PRN Abdominal Pain 09/14/24 09/14/24 tablet,extended release,12 hr ipratropium 20 mcg-albuterol 100 1 puff inhalation QID PRN 09/14/24 09/14/24 mcg/actuation mist for inhalation Shortness Of Breath Or Wheezing (Combivent Respimat) levalbuterol HCl 1.25 mg NEB Q6H PRN Shortness Of 09/14/24 09/14/24 Breath Or Wheezing levothyroxine 100 mcg capsule 100 mcg PO DAILY 09/14/24 09/14/24 midodrine 2.5 mg tablet 2.5 mg PO TID 09/14/24 09/14/24 montelukast 10 mg tablet 10 mg PO DAILY 09/14/24 09/14/24 multivitamin 1 tab PO DAILY 09/14/24 09/14/24 rabeprazole 20 mg tablet,delayed 40 mg PO BID 09/14/24 09/14/24 release sucralfate 1 gram tablet 1 g PO ACHS 09/14/24 09/14/24 topiramate 100 mg tablet 100 mg PO BID 09/14/24 09/14/24 verapamil 40 mg tablet 40 mg PO TID 09/14/24 09/14/24 Results & Data (ED) Vital Signs Vital Signs - 24 hr 09/14/24 15:55 09/14/24 16:38 09/14/24 16:45 Temperature 36.9 C Temperature Source Temporal Artery Scan Pulse Rate 98 H 79 Pulse Rate [Apical] 81 Pulse Rhythm [Apical] Pulse Strength [Apical] Normal Respiratory Rate 20 16 Respiratory Effort / Characteristics Non-Labored Non-Labored Spontaneous Respiratory Depth Normal Normal Respiratory Pattern Regular Blood Pressure 150/87 H Blood Pressure [Right Arm] 137/82 Blood Pressure Mean 108 Blood Pressure Mean [Right Arm] 100 Blood Pressure Position [Right Arm] Lying Pulse Oximetry 98 98 Oxygen Delivery Method Room Air Room Air Sepsis Recent Fever Within 48 Hours No Sepsis New/Unexplained Change in Mental Status No Sepsis Action Taken by Nursing No Action Required 09/14/24 18:00 09/14/24 18:07 09/14/24 20:00 Temperature Temperature Source Pulse Rate Pulse Rate [Apical] 85 76 Pulse Rhythm [Apical] Regular Pulse Strength [Apical] Normal Normal Respiratory Rate 13 15 Respiratory Effort / Characteristics Non-Labored Spontaneous Non-Labored Spontaneous Respiratory Depth Normal Normal Respiratory Pattern Regular Regular Blood Pressure Blood Pressure [Right Arm] 134/88 120/77 Blood Pressure Mean Blood Pressure Mean [Right Arm] 103 91 Blood Pressure Position [Right Arm] Lying Lying Pulse Oximetry 95 96 Oxygen Delivery Method Room Air Room Air Sepsis Recent Fever Within 48 Hours Sepsis New/Unexplained Change in Mental Status Sepsis Action Taken by Nursing 09/14/24 20:31 Temperature Temperature Source Pulse Rate 92 H Pulse Rate [Apical] Pulse Rhythm [Apical] Pulse Strength [Apical] Respiratory Rate Respiratory Effort / Characteristics Respiratory Depth Respiratory Pattern Blood Pressure Blood Pressure [Right Arm] Blood Pressure Mean Blood Pressure Mean [Right Arm] Blood Pressure Position [Right Arm] Pulse Oximetry Oxygen Delivery Method Sepsis Recent Fever Within 48 Hours Sepsis New/Unexplained Change in Mental Status Sepsis Action Taken by Nursing Laboratory Data 09/14/24 16:23 09/14/24 16:23 Lab Results 09/14/24 09/14/24 09/14/24 Range/Units 16:06 16:23 16:27 WBC 8.45 (4.8-10.8) K/ul RBC 3.48 L (4.20-5.40) M/uL Hgb 11.7 L (12.0-16.0) g/dl Hct 36.8 L (37.0-47.0) % MCV 105.7 H (80.0-100.0) fL MCH 33.6 (25.0-34.0) pg MCHC 31.8 L (32.0-36.0) g/dL RDW Std Deviation 62.0 H (36.4-46.3) fL RDW Coeff of Reginaldo 15.7 H (11.5-14.5) % Plt Count 287 (130-400) K/uL MPV 9.7 (9.4-12.4) fL Immature Gran % (Auto) 0.4 % Neut % (Auto) 81.6 % Lymph % (Auto) 10.7 % Ransom % (Auto) 6.0 % Eos % (Auto) 1.1 % Baso % (Auto) 0.2 % Neut # (Auto) 6.90 H (1.40-6.50) K/uL Lymph # (Auto) 0.90 L (1.20-3.40) K/uL Ransom # (Auto) 0.51 (0.11-0.59) K/uL Eos # (Auto) 0.09 (0.00-0.50) K/uL Baso # (Auto) 0.02 (0.00-0.20) K/uL Immature Gran # (Auto) 0.03 (0.01-0.20) K/uL Sodium 140 (136-145) mmol/L Potassium 4.5 (3.5-5.1) mmol/L Chloride 111 H (98-107) mmol/L Carbon Dioxide 25 (21-32) mmol/L Anion Gap 4 (3-11) BUN 17 (6-23) mg/dl Creatinine 0.52 L (0.6-1.2) mg/dl Est Cr Clr Drug Dosing 90.7 ml/min eGFR 104.33 BUN/Creatinine Ratio 32.7 H (10-20) Glucose 103 H (70-99(Fasting)) mg/dl Lactate (0.4-2.0) mmol/L Calcium 8.9 (8.6-10.3) mg/dl Total Bilirubin 0.2 (0.2-1.0) mg/dl AST 21 (13-39) U/L ALT 19 (7-52) U/L Alkaline Phosphatase 79 (34-104) U/L Troponin I High Sens (0-14) pg/ml Total Protein 5.9 L (6.0-8.3) gm/dl Albumin 3.7 (3.4-5.0) gm/dl Globulin 2.2 L (2.5-4.0) gm/dl Albumin/Globulin Ratio 1.7 (0.9-2) Lipase 15 (11-82) U/L Urine Color Yellow Urine Appearance Clear (Clear) Urine pH 7.5 (4.5-7.5) Ur Specific [place] 1.011 (1.000-1.030) Urine Protein Negative (Negative) Urine Glucose (UA) Negative (Negative) Urine Ketones Negative (Negative) Urine Blood Negative (Negative) Urine Nitrite Negative (Negative) Urine Bilirubin Negative (Negative) Urine Urobilinogen Negative (Negative) Ur Leukocyte Esterase 2+ H (Negative) Urine WBC (Auto) 11-20 H (0-5) /hpf Urine RBC (Auto) 0-2 (0-2) /hpf U Hyaline Cast (Auto) 0-2 (0-2) /lpf U Epithel Cells (Auto) 0-2 (0-2) /hpf Urine Bacteria (Auto) None Seen (None Seen) Adenovirus (PCR) Not Detected (NotDetected) B. pertussis DNA (PCR) Not Detected (NotDetected) B.parapertussis DNA PCR Not Detected (NotDetected) C. pneumoniae DNA (PCR) Not Detected (NotDetected) Coronavirus OC43 (PCR) Not Detected (NotDetected) Coronavirus HKU1 (PCR) Not Detected (NotDetected) Coronavirus 229E (PCR) Not Detected (NotDetected) SARS-CoV-2 (PCR) Not Detected (NotDetected) Coronavirus NL63 (PCR) Not Detected (NotDetected) Human Metapneumovir PCR Not Detected (NotDetected) Influenza Type A (PCR) Not Detected (NotDetected) Influenza Type B (PCR) Not Detected (NotDetected) M. pneumoniae (PCR) Not Detected (NotDetected) Parainfluenza 1 (PCR) Not Detected (NotDetected) Parainfluenza 2 (PCR) Not Detected (NotDetected) Parainfluenza 3 (PCR) Not Detected (NotDetected) Parainfluenza 4 (PCR) Not Detected (NotDetected) RSV (PCR) Not Detected (NotDetected) Entero/Rhino (PCR) Not Detected (NotDetected) 09/14/24 Range/Units 20:07 WBC (4.8-10.8) K/ul RBC (4.20-5.40) M/uL Hgb (12.0-16.0) g/dl Hct (37.0-47.0) % MCV (80.0-100.0) fL MCH (25.0-34.0) pg MCHC (32.0-36.0) g/dL RDW Std Deviation (36.4-46.3) fL RDW Coeff of Reginaldo (11.5-14.5) % Plt Count (130-400) K/uL MPV (9.4-12.4) fL Immature Gran % (Auto) % Neut % (Auto) % Lymph % (Auto) % Ransom % (Auto) % Eos % (Auto) % Baso % (Auto) % Neut # (Auto) (1.40-6.50) K/uL Lymph # (Auto) (1.20-3.40) K/uL Ransom # (Auto) (0.11-0.59) K/uL Eos # (Auto) (0.00-0.50) K/uL Baso # (Auto) (0.00-0.20) K/uL Immature Gran # (Auto) (0.01-0.20) K/uL Sodium (136-145) mmol/L Potassium (3.5-5.1) mmol/L Chloride (98-107) mmol/L Carbon Dioxide (21-32) mmol/L Anion Gap (3-11) BUN (6-23) mg/dl Creatinine (0.6-1.2) mg/dl Est Cr Clr Drug Dosing ml/min eGFR BUN/Creatinine Ratio (10-20) Glucose (70-99(Fasting)) mg/dl Lactate 0.7 (0.4-2.0) mmol/L Calcium (8.6-10.3) mg/dl Total Bilirubin (0.2-1.0) mg/dl AST (13-39) U/L ALT (7-52) U/L Alkaline Phosphatase (34-104) U/L Troponin I High Sens 5.5 (0-14) pg/ml Total Protein (6.0-8.3) gm/dl Albumin (3.4-5.0) gm/dl Globulin (2.5-4.0) gm/dl Albumin/Globulin Ratio (0.9-2) Lipase (11-82) U/L Urine Color Urine Appearance (Clear) Urine pH (4.5-7.5) Ur Specific [place] (1.000-1.030) Urine Protein (Negative) Urine Glucose (UA) (Negative) Urine Ketones (Negative) Urine Blood (Negative) Urine Nitrite (Negative) Urine Bilirubin (Negative) Urine Urobilinogen (Negative) Ur Leukocyte Esterase (Negative) Urine WBC (Auto) (0-5) /hpf Urine RBC (Auto) (0-2) /hpf U Hyaline Cast (Auto) (0-2) /lpf U Epithel Cells (Auto) (0-2) /hpf Urine Bacteria (Auto) (None Seen) Adenovirus (PCR) (NotDetected) B. pertussis DNA (PCR) (NotDetected) B.parapertussis DNA PCR (NotDetected) C. pneumoniae DNA (PCR) (NotDetected) Coronavirus OC43 (PCR) (NotDetected) Coronavirus HKU1 (PCR) (NotDetected) Coronavirus 229E (PCR) (NotDetected) SARS-CoV-2 (PCR) (NotDetected) Coronavirus NL63 (PCR) (NotDetected) Human Metapneumovir PCR (NotDetected) Influenza Type A (PCR) (NotDetected) Influenza Type B (PCR) (NotDetected) M. pneumoniae (PCR) (NotDetected) Parainfluenza 1 (PCR) (NotDetected) Parainfluenza 2 (PCR) (NotDetected) Parainfluenza 3 (PCR) (NotDetected) Parainfluenza 4 (PCR) (NotDetected) RSV (PCR) (NotDetected) Entero/Rhino (PCR) (NotDetected) Administered Medications Discontinued Medications Ioversol (Optiray 320 100ml) 93 ml IV ONCE ONE Stop: 09/14/24 17:46 Last Admin: 09/14/24 17:45 Dose: 93 ml Documented By: MAGEN Morphine Sulfate (Morphine Sulfate 4 Mg/Ml 1 Ml Carp\\Vial) 4 mg IV NOW STA Stop: 09/14/24 17:07 Last Admin: 09/14/24 17:15 Dose: 4 mg Documented By: MANDY Ondansetron HCl (Ondansetron Inj 2 Mg/Ml 2 Ml Vial) 4 mg IV NOW STA Stop: 09/14/24 17:07 Last Admin: 09/14/24 17:15 Dose: 4 mg Documented By: MANDY Imaging Data Radiologist's Impression: Chest X-Ray 09/14/24 15:58 EXAM: Radiograph of the Chest 1 View INDICATION: Upper abdominal pain TECHNIQUE: Frontal view of the chest. COMPARISON: 06/10/2024 FINDINGS: Lungs and pleural spaces: No consolidation or pulmonary edema. No pleural effusion or pneumothorax. Heart: Shape and configuration within normal limits allowing for technique. Mediastinum: Normal contour. Bones/joints: Lower cervical fusion hardware visualized is intact and well-seated. Soft tissues: No abnormality noted. No radiopaque foreign body noted. Vasculature: Stable ectatic aorta. Tubes, lines and devices: Right internal jugular port catheter tip terminates in the distal SVC. Upper abdomen: No free intraperitoneal air. IMPRESSION: 1. Lines and tubes as above. 2. No acute cardiopulmonary disease. ACT 112: N/A Electronically signed by Hesham Kathryn 09-14-2024 5:02 PM Abdomen/Pelvis CT 09/14/24 17:06 Clinical History: Abdominal pain. Nausea and vomiting Technique: Axial computed tomography images were obtained of the abdomen and pelvis after the administration of intravenous contrast. Comparison is made to the prior CT dated 01/27/2024. Findings: The liver is mildly enlarged measuring 19.2 cm. There is no sign of cirrhosis or significant fatty infiltration. No liver mass lesion is seen. The portal vein is patent. The gallbladder has been removed. There is worsened intrahepatic and extra hepatic bile duct dilatation that may be due to the postcholecystectomy state, with the common bile duct measuring up to 13 mm The spleen is of normal size. No focal splenic lesion is evident. The pancreas appears normal with no sign of acute or chronic pancreatitis and no mass lesion noted. The pancreatic duct is of normal caliber. There is an unchanged 3.3 cm left adrenal nodule. The right adrenal gland appears normal No definite renal or proximal ureteral calculi are seen on this contrast-enhanced study. There is unchanged left greater than right hydronephrosis, without perinephric stranding. No renal mass lesion is identified. There are 2 small 8 mm left renal cysts The aorta is of normal caliber. No abdominal adenopathy is seen. The stomach appears normal. There is no sign of small bowel obstruction. There is possible mild small bowel wall thickening. The colon appears unremarkable. The appendix appears normal also. No free intraperitoneal fluid or air is identified. No distal ureteral or bladder calculi are seen. No bladder mass lesion is evident. The iliac arteries are of normal caliber. No pelvic adenopathy is noted. The uterus has been removed The lungs bases appear clear. Lumbar degenerative disc disease is seen. No fracture is identified. No focal osseous lesion is seen Impression: 1. Unchanged 3.3 cm left adrenal mass. This has an indeterminate appearance but is likely benign given the stability. Dedicated adrenal protocol CT or MRI could be considered for further evaluation 2. Unchanged left worse than right hydronephrosis without visible obstructing lesion. This may be residual from prior obstruction or reflux or could be due to intrinsic UPJ obstruction 3. Interval worsening of bile duct dilatation. This could be due to the postcholecystectomy state, though the dilatation is greater than typically seen. No clear obstructing lesion is seen. ERCP or MRCP could be considered for further evaluation 4. Small left renal cysts 5. Possible mild small bowel wall thickening, raising the possibility of infectious enteritis or inflammatory bowel disease Electronically signed by Darinel Hilliard 09-14-2024 6:13 PM Discharge Plan Visit Data Chief Complaint: Abdominal Pain Stated Complaint: SEVERE STOMACH PAIN AND ASTHMA ATTACK ED Provider: Marcie Serna Discharge Problem: Epigastric abdominal pain, Common bile duct dilatation Forms Stand Alone Forms: [facility] [place] [employer] Prescriptions Prescriptions: No Action fluticasone propion-salmeterol [Advair Diskus] 250-50 mcg/dose Blister With Device 1 inh INHALATION BID atorvastatin 20 mg Tablet 20 mg PO DAILY cimetidine 400 mg Tablet 400 mg PO BID Rx Instructions: administer with meals hyoscyamine sulfate 0.375 mg Tablet Extended Release 12 Hr 0.375 mg PO Q6H PRN (Reason: Abdominal Pain) folic acid 1 mg Tablet 2 mg PO DAILY montelukast 10 mg Tablet 10 mg PO DAILY midodrine 2.5 mg Tablet 2.5 mg PO TID Rx Instructions: do not give last dose of day after 6PM or within 4 hrs of bedtime ergocalciferol (vitamin D2) [Vitamin D2] 1,250 mcg (50,000 unit) Capsule 1,250 mcg PO UD Rx Instructions: twice weekly on Wed and levothyroxine 100 mcg Capsule 100 mcg PO DAILY Combivent Respimat 20-100 mcg/actuation Mist 1 puff INHALATION QID PRN (Reason: Shortness Of Breath Or Wheezing) Rx Instructions: space evenly during waking hours levalbuterol HCl 1.25 mg 1.25 mg NEB Q6H PRN (Reason: Shortness Of Breath Or Wheezing) rabeprazole 20 mg Tablet,Delayed Release (Dr/Ec) 40 mg PO BID verapamil 40 mg Tablet 40 mg PO TID sucralfate 1 gram Tablet 1 g PO ACHS fexofenadine 180 mg Tablet 180 mg PO DAILY aspirin [Aspir-81] 81 mg Tablet,Delayed Release (Dr/Ec) 81 mg PO DAILY topiramate 100 mg Tablet 100 mg PO BID multivitamin Tablet 1 tab PO DAILY Referrals Referrals: Vicki Watson MD [Primary Care Provider] -
[2024-09-14 17:19] LABS: Albumin Globulin Ratio 1.7 (0.9-2); BUN Creatinine Ratio 32.7 (10-20); Creatinine Clr Calc Pharmacy 90.7 ml/min; Globulin 2.2 gm/dl (2.5-4.0); Total Protein 5.9 gm/dl (6.0-8.3)
[2024-09-14] MEDS: OPTIRAY 320 100ml IV ONE (17:45)
--- NOTE | 2024-09-14 18:13 | CT Scan Report ---
Clinical History: Abdominal pain. Nausea and vomiting Technique: Axial computed tomography images were obtained of the abdomen and pelvis after the administration of intravenous contrast. Comparison is made to the prior CT dated 01/27/2024. Findings: The liver is mildly enlarged measuring 19.2 cm. There is no sign of cirrhosis or significant fatty infiltration. No liver mass lesion is seen. The portal vein is patent. The gallbladder has been removed. There is worsened intrahepatic and extra hepatic bile duct dilatation that may be due to the postcholecystectomy state, with the common bile duct measuring up to 13 mm The spleen is of normal size. No focal splenic lesion is evident. The pancreas appears normal with no sign of acute or chronic pancreatitis and no mass lesion noted. The pancreatic duct is of normal caliber. There is an unchanged 3.3 cm left adrenal nodule. The right adrenal gland appears normal No definite renal or proximal ureteral calculi are seen on this contrast-enhanced study. There is unchanged left greater than right hydronephrosis, without perinephric stranding. No renal mass lesion is identified. There are 2 small 8 mm left renal cysts The aorta is of normal caliber. No abdominal adenopathy is seen. The stomach appears normal. There is no sign of small bowel obstruction. There is possible mild small bowel wall thickening. The colon appears unremarkable. The appendix appears normal also. No free intraperitoneal fluid or air is identified. No distal ureteral or bladder calculi are seen. No bladder mass lesion is evident. The iliac arteries are of normal caliber. No pelvic adenopathy is noted. The uterus has been removed The lungs bases appear clear. Lumbar degenerative disc disease is seen. No fracture is identified. No focal osseous lesion is seen Impression: 1. Unchanged 3.3 cm left adrenal mass. This has an indeterminate appearance but is likely benign given the stability. Dedicated adrenal protocol CT or MRI could be considered for further evaluation 2. Unchanged left worse than right hydronephrosis without visible obstructing lesion. This may be residual from prior obstruction or reflux or could be due to intrinsic UPJ obstruction 3. Interval worsening of bile duct dilatation. This could be due to the postcholecystectomy state, though the dilatation is greater than typically seen. No clear obstructing lesion is seen. ERCP or MRCP could be considered for further evaluation 4. Small left renal cysts 5. Possible mild small bowel wall thickening, raising the possibility of infectious enteritis or inflammatory bowel disease Electronically signed by Darinel Hilliard 09-14-2024 6:13 PM
--- NOTE | 2024-09-14 21:01 | History & Physical Report ---
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 Since last Wednesday she is having epigastric abdominal pain 9/10 in severity radiating to the back. Associated with nausea. Did not moved her bowels since last several days and not even moving gas. Poor appetite. Also having headache. Runny nose with bloody yellow drainage. Has cough. And sore throat for last few days. Denies any fevers. Denies chest pain. Has some shortness of breath. Not micturating much. No rash. Hemodynamics are okay. Abdominal pain Epigastric region radiating to back going on for last few days Lipase okay. LFTs okay. Lactic acid okay. Respiratory BioFire negative. CT of the abdomen pelvis shows unchanged left adrenal mass. Bilateral hydronephrosis. Interval worsening of bile duct dilatation. ER discussed with GI and advised for MRCP n.p.o. after midnight Will follow MRCP N.p.o., IV fluids, pain control Continue home cimetidine and sucralfate Close monitor Bilateral hydronephrosis Possible UTI Empiric azactum Will follow cultures Urology consult for further recommendations History of asthma Continue home inhalers Sleep apnea CPAP nightly Hypothyroidism On Synthyroid History of A-fib Not on anticoagulant secondary to anemia On verapamil and aspirin Celiac disease Irritable bowel syndrome Chronic abdominal pain Gluten-free diet Continue PPI cimetidine and sucralfate Chronic anemia Receives iron Hemoglobin Hyperlipidemia History of statin intolerance Hypertension On verapamil History of CAD On verapamil and aspirin Hypotension on midodrine. DVT prophylaxis SCDs for now Disposition Medical floor Full code History of Present Illness Chief Complaint: Abdominal pain Primary Care Provider: Vicki Watson MD 64-year-old female with past medical history significant for hyperlipidemia, hypothyroidism, pancreas divisum, chronic hypokalemia, hypothyroidism, chronic pancreatitis, asthma severe persistent, obstructive sleep apnea, allergic rhinitis, COPD, atrial fibrillation, paroxysmal tachycardia, irritable bowel syndrome, GERD, celiac disease, CKD stage II, restless leg syndrome, ganglion cyst of dorsum of left wrist, migraine, history of strokelike symptom, iron deficiency anemia, severe allergy to eggs, presents with severe abdominal pain. Since last Wednesday she is having epigastric abdominal pain 9/10 in severity radiating to the back. Associated with nausea. Did not moved her bowels since last several days and not even moving gas. Poor appetite. Also having headache. Runny nose with bloody yellow drainage. Has cough. And sore throat for last few days. Denies any fevers. Denies chest pain. Has some shortness of breath. Not micturating much. No rash. Hemodynamics are okay. Past medical history. As mentioned above Past surgical history. Allograft for spine surgery. Left knee arthroscopy. Left heart catheterization. Colonoscopy. EGD. EGD with biopsy. EGD with e ndoscopic ultrasound. Laparoscopic suggestion of lesions for endometriosis. Nasal surgery. Cervical spine fusion surgery. A port insertion. Reconstruction of nose. Laminectomy. Cholecystectomy. Total abdominal hysterectomy with removal of tubes. Social history. . No smoking. No alcohol use. No drug use. Family history. Mother has arthritis. GERD. Hiatal hernia. A-fib. Sleep apnea. Bipolar. Osteoporosis. Stroke. History of bladder cancer. Father had A-fib. Coronary disease. Mitochondrial disease. Allergies Allergy/AdvReac Type Severity Reaction Status Date / Time bee venom protein (honey bee) Allergy Severe ANAPHYLAXIS Verified 01/27/24 19:35 coconut Allergy Severe RASH; SOB Verified 01/27/24 19:35 gluten Allergy Severe CELIAC'S Verified 01/27/24 19:35 latex Allergy Severe Anaphylaxis Verified 01/27/24 19:35 Penicillins Allergy Severe Anaphylaxis Verified 01/27/24 19:35 Sulfa (Sulfonamide Allergy Severe Anaphylaxis Verified 01/27/24 19:35 Antibiotics) ROBER Inhibitors Allergy Intermediate RASH/TACHYC Verified 01/27/24 19:35 ARDIA cefaclor Allergy Intermediate CECLOR--RASH/UPSET Verified 01/27/24 19:35 STOMACH egg Allergy Intermediate RASH & Verified 01/27/24 19:35 Bloating Influenza Virus Vaccines Allergy Intermediate rash and Verified 01/27/24 19:35 bloating lactose Allergy Intermediate BLOATING; Verified 01/27/24 19:35 DIARRHEA; VOMITING tetracycline Allergy Intermediate NAUSEA/VOMI Verified 01/27/24 19:35 TING/RASH Quinolones Allergy Unknown ALLERGY TO Verified 01/27/24 19:35 AVELOX ,CAN TAKE CIPRO OR LEVAQUIN W/O RXN Beta-Blockers AdvReac Intermediate intolerance Verified 01/27/24 19:35 (Beta-Adrenergic Bloc as per records Home Medications Medication Instructions Recorded Confirmed Type aspirin 81 mg tablet,delayed 81 mg PO DAILY 09/14/24 09/14/24 History release atorvastatin 20 mg tablet 20 mg PO DAILY 09/14/24 09/14/24 History cimetidine 400 mg tablet 400 mg PO BID 09/14/24 09/14/24 History fexofenadine 180 mg tablet 180 mg PO DAILY 09/14/24 09/14/24 History fluticasone 250 mcg-salmeterol 50 1 inh inhalation BID 09/14/24 09/14/24 History mcg/dose blistr powdr for inhalation (Advair Diskus) folic acid 1 mg tablet 2 mg PO DAILY 09/14/24 09/14/24 History hyoscyamine sulfate 0.375 mg 0.375 mg PO Q6H PRN Abdominal Pain 09/14/24 09/14/24 History tablet,extended release,12 hr ipratropium 20 mcg-albuterol 100 1 puff inhalation QID PRN 09/14/24 09/14/24 History mcg/actuation mist for inhalation Shortness Of Breath Or Wheezing (Combivent Respimat) levothyroxine 100 mcg capsule 100 mcg PO DAILY 09/14/24 09/14/24 History midodrine 2.5 mg tablet 2.5 mg PO TID 09/14/24 09/14/24 History montelukast 10 mg tablet 10 mg PO HS 09/14/24 09/15/24 History multivitamin 1 tab PO DAILY 09/14/24 09/14/24 History rabeprazole 20 mg tablet,delayed 40 mg PO BID 09/14/24 09/14/24 History release sucralfate 1 gram tablet 1 g PO ACHS 09/14/24 09/14/24 History topiramate 100 mg tablet 100 mg PO BID 09/14/24 09/14/24 History verapamil 40 mg tablet 40 mg PO TID 09/14/24 09/14/24 History CPAP Machine 09/15/24 09/15/24 History amitriptyline 75 mg tablet 75 mg PO HS 09/15/24 09/15/24 History azelastine 137 mcg (0.1 %) nasal 1 spray intranasal BID 09/15/24 09/15/24 History spray ergocalciferol (vitamin D2) 25,000 50,000 unit PO 09/15/24 History unit capsule levalbuterol HCl 1.25 mg/3 mL 1.25 mg inhalation Q6H 09/15/24 09/15/24 History solution for nebulization mometasone 50 mcg/actuation nasal 2 spray intranasal BID 09/15/24 09/15/24 History spray ondansetron 4 mg disintegrating 4 mg PO Q8H PRN Nausea And Vomiting 09/15/24 09/15/24 History tablet polyethylene glycol 3350 17 gram 17 g PO 4XD 09/15/24 09/15/24 History oral powder packet (Miralax) triamcinolone acetonide 0.1 % 1 applic topical BID 09/15/24 09/15/24 History topical cream Past Med/Surg History Problem List (Updated 03/02/24 @ 00:10 by Background Daemon) Abdominal pain Orthostatic hypotension PSVT (paroxysmal supraventricular tachycardia) Anemia (Acute) Exertional chest pain (Acute) Syncope (Acute) Elevated brain natriuretic peptide (BNP) level (Acute) Anemia (Acute) Atrial tachycardia, paroxysmal Syncope (Acute) Dyspnea (Acute) Palpitation (Acute) Chest pain (Acute) Cough (Acute) Anemia (Acute) Lab test negative for COVID-19 virus (Acute) Shortness of breath (Acute) PAF (paroxysmal atrial fibrillation) Palpitation (Acute) Sinus tachycardia (Acute) Acute exacerbation of chronic obstructive pulmonary disease (Acute) COVID-19 (Acute) Pneumonia (Acute) Hypokalemia Transaminitis Severe persistent asthma with (acute) exacerbation Cough (Acute) Elevated LFTs (Acute) Breathlessness (Acute) Bronchitis (Acute) Encounter for pre-operative examination MRSA (methicillin resistant Staphylococcus aureus) (Chronic) 1999 dx nose septum wound 2019 dx in lungs Dyslipidemia (Chronic) CHARLES (iron deficiency anemia) (Chronic) ferrous sulfate QID. Hypothyroidism (Chronic) no current medication -- TSH normal without meds. IBS (irritable bowel syndrome) (Chronic) GERD (gastroesophageal reflux disease) (Chronic) Celiac disease (Chronic) Gastroparesis (Chronic) Asthma, severe persistent (Chronic) CYNTHIA (obstructive sleep apnea) (Chronic) NSVT (nonsustained ventricular tachycardia) (Chronic) Hx of cardiac cath (Chronic) "2009 - normal coronaries" History of arthroscopic knee surgery (Chronic) left Hx of cholecystectomy (Chronic) S/P nasal surgery (Chronic) S/P surgery on nasal septum (Chronic) "collapsed septum" s/p post op infection that "ate away the septum" S/P GLENNY-BSO (Chronic) Medical History Elevated LFTs Chronic anemia Dehydration Colitis with rectal bleeding Bloody diarrhea Hypertension Adrenal cyst monitoring Kidney stones no surgery Chronic back pain Degenerative disc disease Osteoarthritis Hx of sepsis ~2017 treated at [facility]. Anxiety Mitral valve prolapse follows with Dr Aguirre Heart disease Narcolepsy Chronic obstructive pulmonary disease Sleep apnea CPAP -- have not used in about a year (it broke and has not yet been fixed) NSVT (nonsustained ventricular tachycardia) Asthma, severe persistent Gastroparesis Celiac disease GERD (gastroesophageal reflux disease) IBS (irritable bowel syndrome) Hypothyroidism no current medication -- TSH normal without meds. CHARLES (iron deficiency anemia) ferrous sulfate QID. Dyslipidemia MRSA (methicillin resistant Staphylococcus aureus) 1999 dx nose septum wound 2019 dx in lungs Surgical History History of esophagogastroduodenoscopy (EGD) History of colonoscopy History of section x1 History of dilatation and curettage History of bilateral tubal ligation S/P GLENNY-BSO S/P surgery on nasal septum "collapsed septum" s/p post op infection that "ate away the septum" S/P nasal surgery Hx of cholecystectomy History of arthroscopic knee surgery left Hx of cardiac cath "2009 - normal coronaries" Family History Other No family history of adverse response to anesthesia Social History Smoking Status: Never smoker Second Hand Exposure: No; Do You Dip or Chew Tobacco: No; Hx Alcohol Use: No Hx Substance Use: No Preferred Language: Lithuanian Communication Ability: Effective Field Education Coordinator Required: No Beliefs That Will Affect Care: None marital status: Current Living Situation: Spouse Current Living Situation Comment: also lives with her 4 year old boys Other Information That Helps Us Care for You: No Feels Safe at Home: Yes Safety Concerns: Feels Safe At This Time Assistive Devices: Denture - Upper, Glasses and Oxygen - at Night Assistive Devices Comment: dentures are a partial Review of Systems Review of Systems: All systems reviewed & are unremarkable except as noted in HPI & below Physical Exam Physical Exam: General- Not in distress Head- atraumatic Eyes- PERRL. ENT- oropharynx clear Neck- supple, no JVD. Lungs- clear to auscultation no wheezing or crackles Heart- regular rhythm; no murmur, no gallop. Abdomen- normal bowel sounds, soft, epigastric tenderness with mild guarding present, no distension Extremities- no pretibial edema, no erythema seen Neuro- alert, oriented PERRL, no facial palsy; no dysarthria; moves extremities Results & Data Results & Data Vital Signs (Past 12 Hours) Vital Signs Temp Pulse Pulse Resp BP BP Pulse Ox 09/14/24 20:31 92 H 09/14/24 20:00 76 15 120/77 96 09/14/24 18:07 134/88 09/14/24 18:00 85 13 95 09/14/24 16:45 79 09/14/24 16:38 81 16 137/82 98 09/14/24 15:55 36.9 C 98 H 20 150/87 H 98 O2 Del Method 09/14/24 20:31 09/14/24 20:00 Room Air 09/14/24 18:07 09/14/24 18:00 Room Air 09/14/24 16:45 09/14/24 16:38 Room Air 09/14/24 15:55 Room Air Diagnostic Findings Laboratory Results WBC 8.45 K/ul (4.8-10.8) 09/14/24 16:23 RBC 3.48 M/uL (4.20-5.40) L 09/14/24 16:23 Hgb 11.7 g/dl (12.0-16.0) L 09/14/24 16:23 Hct 36.8 % (37.0-47.0) L 09/14/24 16:23 MCV 105.7 fL (80.0-100.0) H 09/14/24 16:23 MCH 33.6 pg (25.0-34.0) 09/14/24 16: MCHC 31.8 g/dL (32.0-36.0) L 09/14/24 16: RDW Std Deviation 62.0 fL (36.4-46.3) H 09/14/24 16: RDW Coeff of Reginaldo 15.7 % (11.5-14.5) H 09/14/24 16: Plt Count 287 K/uL (130-400) 09/14/24 16: MPV 9.7 fL (9.4-12.4) 09/14/24 16: Immature Gran % (Auto) 0.4 % 09/14/24 16:23 Neut % (Auto) 81.6 % 09/14/24 16:23 Lymph % (Auto) 10.7 % 09/14/24 16:23 [place] % (Auto) 6.0 % 09/14/24 16:23 Eos % (Auto) 1.1 % 09/14/24 16:23 Baso % (Auto) 0.2 % 09/14/24 16:23 Neut # (Auto) 6.90 K/uL (1.40-6.50) H 09/14/24 16:23 Lymph # (Auto) 0.90 K/uL (1.20-3.40) L 09/14/24 16:23 [place] # (Auto) 0.51 K/uL (0.11-0.59) 09/14/24 16:23 Eos # (Auto) 0.09 K/uL (0.00-0.50) 09/14/24 16:23 Baso # (Auto) 0.02 K/uL (0.00-0.20) 09/14/24 16: Immature Gran # (Auto) 0.03 K/uL (0.01-0.20) 09/14/24 16:23 Sodium 140 mmol/L (136-145) 09/14/24 16:23 Potassium 4.5 mmol/L (3.5-5.1) 09/14/24 16:23 Chloride 111 mmol/L (98-107) H 09/14/24 16:23 Carbon Dioxide 25 mmol/L (21-32) 09/14/24 16:23 Anion Gap 4 (3-11) 09/14/24 16:23 BUN 17 mg/dl (6-23) 09/14/24 16:23 Creatinine 0.52 mg/dl (0.6-1.2) L 09/14/24 16:23 Est Cr Clr Drug Dosing 90.7 ml/min 09/14/24 16:23 eGFR 104.33 09/14/24 16:23 BUN/Creatinine Ratio 32.7 (10-20) H 09/14/24 16:23 Glucose 103 mg/dl (70-99(Fasting)) H 09/14/24 16:23 Lactate 0.7 mmol/L (0.4-2.0) 09/14/24 20:07 Calcium 8.9 mg/dl (8.6-10.3) 09/14/24 16:23 Total Bilirubin 0.2 mg/dl (0.2-1.0) 09/14/24 16:23 AST 21 U/L (13-39) 09/14/24 16:23 ALT 19 U/L (7-52) 09/14/24 16:23 Alkaline Phosphatase 79 U/L (34-104) 09/14/24 16:23 Troponin I High Sens 5.5 pg/ml (0-14) 09/14/24 20:07 Total Protein 5.9 gm/dl (6.0-8.3) L 09/14/24 16:23 Albumin 3.7 gm/dl (3.4-5.0) 09/14/24 16:23 Globulin 2.2 gm/dl (2.5-4.0) L 09/14/24 16:23 Albumin/Globulin Ratio 1.7 (0.9-2) 09/14/24 16:23 Lipase 15 U/L (11-82) 09/14/24 16:23 Urine Color Yellow 09/14/24 16:27 Urine Appearance Clear (Clear) 09/14/24 16:27 Urine pH 7.5 (4.5-7.5) 09/14/24 16:27 Ur Specific Archer 1.011 (1.000-1.030) 09/14/24 16:27 Urine Protein Negative (Negative) 09/14/24 16:27 Urine Glucose (UA) Negative (Negative) 09/14/24 16: Urine Ketones Negative (Negative) 09/14/24 16: Urine Blood Negative (Negative) 09/14/24 16: Urine Nitrite Negative (Negative) 09/14/24 16: Urine Bilirubin Negative (Negative) 09/14/24 16: Urine Urobilinogen Negative (Negative) 09/14/24 16: Ur Leukocyte Esterase 2+ (Negative) H 09/14/24 16:27 Urine WBC (Auto) 11-20 /hpf (0-5) H 09/14/24 16: Urine RBC (Auto) 0-2 /hpf (0-2) 09/14/24 16: U Hyaline Cast (Auto) 0-2 /lpf (0-2) 09/14/24 16: U Epithel Cells (Auto) 0-2 /hpf (0-2) 09/14/24 16:27 Urine Bacteria (Auto) None Seen (None Seen) 09/14/24 16:27 Adenovirus (PCR) Not Detected (NotDetected) 09/14/24 16:06 B. pertussis DNA (PCR) Not Detected (NotDetected) 09/14/24 16:06 B.parapertussis DNA PCR Not Detected (NotDetected) 09/14/24 16:06 C. pneumoniae DNA (PCR) Not Detected (NotDetected) 09/14/24 16:06 Coronavirus OC43 (PCR) Not Detected (NotDetected) 09/14/24 16:06 Coronavirus HKU1 (PCR) Not Detected (NotDetected) 09/14/24 16:06 Coronavirus 229E (PCR) Not Detected (NotDetected) 09/14/24 16:06 SARS-CoV-2 (PCR) Not Detected (NotDetected) 09/14/24 16:06 Coronavirus NL63 (PCR) Not Detected (NotDetected) 09/14/24 16:06 Human Metapneumovir PCR Not Detected (NotDetected) 09/14/24 16:06 Influenza Type A (PCR) Not Detected (NotDetected) 09/14/24 16:06 Influenza Type B (PCR) Not Detected (NotDetected) 09/14/24 16:06 M. pneumoniae (PCR) Not Detected (NotDetected) 09/14/24 16:06 Parainfluenza 1 (PCR) Not Detected (NotDetected) 09/14/24 16:06 Parainfluenza 2 (PCR) Not Detected (NotDetected) 09/14/24 16:06 Parainfluenza 3 (PCR) Not Detected (NotDetected) 09/14/24 16:06 Parainfluenza 4 (PCR) Not Detected (NotDetected) 09/14/24 16:06 RSV (PCR) Not Detected (NotDetected) 09/14/24 16:06 Entero/Rhino (PCR) Not Detected (NotDetected) 09/14/24 16:06 Impressions Chest X-Ray 09/14/24 15:58 EXAM: Radiograph of the Chest 1 View INDICATION: Upper abdominal pain TECHNIQUE: Frontal view of the chest. COMPARISON: 06/10/2024 FINDINGS: Lungs and pleural spaces: No consolidation or pulmonary edema. No pleural effusion or pneumothorax. Heart: Shape and configuration within normal limits allowing for technique. Mediastinum: Normal contour. Bones/joints: Lower cervical fusion hardware visualized is intact and well-seated. Soft tissues: No abnormality noted. No radiopaque foreign body noted. Vasculature: Stable ectatic aorta. Tubes, lines and devices: Right internal jugular port catheter tip terminates in the distal SVC. Upper abdomen: No free intraperitoneal air. IMPRESSION: 1. Lines and tubes as above. 2. No acute cardiopulmonary disease. ACT 112: N/A Electronically signed by Kathryn Dahl 09-14-2024 5:02 PM Abdomen/Pelvis CT 09/14/24 17:06 Clinical History: Abdominal pain. Nausea and vomiting Technique: Axial computed tomography images were obtained of the abdomen and pelvis after the administration of intravenous contrast. Comparison is made to the prior CT dated 01/27/2024. Findings: The liver is mildly enlarged measuring 19.2 cm. There is no sign of cirrhosis or significant fatty infiltration. No liver mass lesion is seen. The portal vein is patent. The gallbladder has been removed. There is worsened intrahepatic and extra hepatic bile duct dilatation that may be due to the postcholecystectomy state, with the common bile duct measuring up to 13 mm The spleen is of normal size. No focal splenic lesion is evident. The pancreas appears normal with no sign of acute or chronic pancreatitis and no mass lesion noted. The pancreatic duct is of normal caliber. There is an unchanged 3.3 cm left adrenal nodule. The right adrenal gland appears normal No definite renal or proximal ureteral calculi are seen on this contrast-enhanced study. There is unchanged left greater than right hydronephrosis, without perinephric stranding. No renal mass lesion is identified. There are 2 small 8 mm left renal cysts The aorta is of normal caliber. No abdominal adenopathy is seen. The stomach appears normal. There is no sign of small bowel obstruction. There is possible mild small bowel wall thickening. The colon appears unremarkable. The appendix appears normal also. No free intraperitoneal fluid or air is identified. No distal ureteral or bladder calculi are seen. No bladder mass lesion is evident. The iliac arteries are of normal caliber. No pelvic adenopathy is noted. The uterus has been removed The lungs bases appear clear. Lumbar degenerative disc disease is seen. No fracture is identified. No focal osseous lesion is seen Impression: 1. Unchanged 3.3 cm left adrenal mass. This has an indeterminate appearance but is likely benign given the stability. Dedicated adrenal protocol CT or MRI could be considered for further evaluation 2. Unchanged left worse than right hydronephrosis without visible obstructing lesion. This may be residual from prior obstruction or reflux or could be due to intrinsic UPJ obstruction 3. Interval worsening of bile duct dilatation. This could be due to the postcholecystectomy state, though the dilatation is greater than typically seen. No clear obstructing lesion is seen. ERCP or MRCP could be considered for further evaluation 4. Small left renal cysts 5. Possible mild small bowel wall thickening, raising the possibility of infectious enteritis or inflammatory bowel disease Electronically signed by Darinel Hilliard 09-14-2024 6:13 PM Code Status & VTE Plan VTE Prophylaxis Plan VTE Prophylaxis will be ordered: Yes
[2024-09-14] MEDS ORDERED: LEVALBUTEROL 1.25 MG/3 ML NEB NEB PRN (22:40)
[2024-09-14] MEDS ORDERED: IPRATROPIUM BROMIDE/ALBUTEROL respimat INH INH PRN (22:40)
[2024-09-14] MEDS ORDERED: HYDROmorphone INJ 0.5 MG/0.5 ML SYR IV PRN (22:40)
[2024-09-14] MEDS ORDERED: MIDODRINE HCL 2.5 MG TAB PO SCH (22:40)
[2024-09-14] MEDS ORDERED: ALBUTEROL HFA 8 GM INHALER INH PRN (23:15)
[2024-09-14] MEDS ORDERED: IPRATROPIUM BROMIDE HFA INHALER INH PRN (23:15)
[2024-09-14] MEDS: HYDROmorphone INJ 0.5 MG/0.5 ML SYR IV PRN (23:18)
[2024-09-14] MEDS: D5W AND 1/2NSS 1,000 ML IV SCH (23:26)
[2024-09-15] MEDS: VERAPAMIL HCL 40 MG TAB PO SCH (00:15)
[2024-09-15] MEDS: SUCRALFATE 1 GM TAB PO SCH (00:15)
[2024-09-15] MEDS: AZTREONAM 2,000 MG in DEXTROSE 5% MINI-B 100 ML IV SCH (00:15)
[2024-09-15] MEDS: TOPIRAMATE 100 MG TAB PO SCH (00:15)
[2024-09-15] MEDS: PANTOprazole 40 MG TAB PO SCH (00:15)
[2024-09-15] MEDS: LEVALBUTEROL 1.25 MG/3 ML NEB INH SCH (03:29)
--- OUTSIDE RECORDS SUMMARY | 2024-09-15 05:16 | External Medical Summary | Summary of Care ---
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 Name Role Phone Vicki Cadet MD Primary Care Prov ider Reason for Visit * Reason Comments Procedure Port flush/labs from port Encounter Details Date Type Department Care Team (Late st Contact Info) Description 09/08/2024 2:00 PM EST Nurse Only Hematology/Oncology Treatment, [place] [address] [place] [address] Park, Chair 11 Hem Onc [facility] [id number] Procedure (Port flush/labs from port) Allergies Active Allergy Reactions Criticality Noted Date [...] as of this encounter (statuses as of 09/08/2024) Medications MULTIVITAMINS PO TABS 1 TABLET DAILY 04/17/20 10 Active MIRALAX PO POWD 1 Cap full in juice up to 4 times a day to effect 1 stool per day 1 Bottle 3 04/17/20 10 Active ASPIRIN EC 81 MG PO TBEC Take one pill daily 01/27/20 12 Active Mometasone Furoate (NASONEX) 50 MCG/ACT nasal sprayIndications:All ergic rhinitis,Chronic sinusitis Administer 2 Sprays into each nostril 2 times a day. 2 Inhaler 1 06/06/20 15 Active Azelastine HCl (ASTELIN) 0.1 % nasal sprayIndications:All ergic rhinitis Administer 1 Upperco into nostril 2 times a day. 3 Bottle 3 06/05/20 15 Active oxygen GASIndications:Hypox emia 1 LPM bled through CPAP 4 cwp during hours of sleep (10 hours per day) 1 Each 0 11/08/19 16 Active Triamcinolone Acetonide 0.1 % External Cream (Aristocort)Indicati ons:Intrinsic eczema Apply to elbows and knees and hairline for psoriasis twice a day 80 g 5 12/24/19 22 Active Ondansetron HCl 4 MG Oral TabletIndications:Vi ral URI with cough Take 1 Tablet by mouth every 6 hours as needed for Nausea. 30 Tablet 06/21/20 23 Active Fexofenadine HCl 180 MG Oral Tablet (Yuliya)Indications :Asthma, severe persistent,Allergic rhinitis Take 1 Tablet by mouth in the morning. 30 Tablet 5 12/02/19 24 Active OneTouch Verio w/Device KitIndications:Hypog lycemia Use once daily as needed for hypoglycemia episodes E16.2 1 Kit 02/28/20 24 Active OneTouch UltraSoft LancetsIndications:H ypoglycemia Test once daily as needed for hypoglycemia episodes Dx E16.2 100 Each 3 02/28/20 24 Active Amitriptyline HCl 75 MG Oral Tablet (Elavil)Indications: Migraine without aura and without status migrainosus, not intractable TAKE ONE TABLET BY MOUTH NIGHTLY AT BEDTIME 90 Tablet 1 4 12:22 PM EST 04/03/20 24 Active EpiPen 2-All 0.3 MG/0.3ML Injection Solution Auto-injectorIndicat ions:Severe allergy to eggs For a severe reaction: Place orange end against the outer thigh, press firmly, hold in place for 10 seconds and go to the Emergency room. 1 Each 1 4 10:13 AM EDT 04/03/20 24 Active Folic Acid 1 MG Oral TabletIndications:Dr ug-induced folate deficiency anemia Take 2 Tablets by mouth in the morning. 180 Tablet 1 4 3:32 PM EDT 04/03/20 24 Active Hyoscyamine Sulfate ER 0.375 MG Oral Tablet Extended Release 12 Hour (Levbid)Indications: Celiac disease TAKE ONE TABLET BY MOUTH EVERY 6 HOURS NEEDED FOR ABDOMINAL PAIN 180 Tablet 3 4 10:13 AM EDT 04/03/20 24 Active Combivent Respimat 20-100 MCG/ACT Inhalation Aerosol Solution (Ipratropium-Albuter ol)Indications:Sever e persistent asthma without complication INHALE ONE DOSE BY MOUTH FOUR TIMES A DAY NEEDED IN PLACE OF NEBULIZED XOPENEX 12 g 5 4 12:22 PM EST 04/03/20 24 Active Levothyroxine Sodium 100 MCG Oral Tablet (Levoxyl)Indications :Hypothyroidism due to acquired atrophy of thyroid Take 1 Tablet by mouth in the morning. (at least 30 min prior to breakfast or other meds). 90 Tablet 1 4 12:22 PM EST 04/03/20 24 Active Midodrine HCl 2.5 MG Oral Tablet (Proamatine) Take 1 Tablet by mouth in the morning and 1 Tablet at noon and 1 Tablet in the evening. 270 Tablet 1 4 12:22 PM EST 04/03/20 24 Active Montelukast Sodium 10 MG Oral Tablet (Singulair)Indicatio ns:Severe persistent asthma without complication Take 1 Tablet by mouth in the morning. 90 Tablet 1 4 12:22 PM EST 04/03/20 24 Active RABEprazole Sodium 20 MG Oral Tablet Delayed ReleaseIndications:G astroesophageal reflux disease without esophagitis Take 2 Tablets by mouth in the morning and 2 Tablets before bedtime. 360 Tablet 3 4 12:22 PM EST 04/03/20 24 Active Sucralfate 1 GM Oral Tablet (Carafate)Indication s:History of IBS Take 1 Tablet by mouth in the morning and 1 Tablet at noon and 1 Tablet in the evening and 1 Tablet before bedtime. 360 Tablet 3 4 12:22 PM EST 04/03/20 24 Active Topiramate 100 MG Oral Tablet (topAMAX)Indications :Migraine without aura and without status migrainosus, not intractable Take 1 Tablet by mouth in the morning and 1 Tablet before bedtime. 180 Tablet 3 4 12:22 PM EST 04/03/20 24 Active Verapamil HCl 40 MG Oral Tablet (Isoptin)Indications :Atrial fibrillation by electrocardiogram (HCC) Take 1 Tablet by mouth in the morning and 1 Tablet at noon and 1 Tablet before bedtime. 270 Tablet 1 4 12:22 PM EST 04/03/20 24 Active Fluticasone-Salmeter ol 250-50 MCG/ACT Inhalation Aerosol Powder Breath Activated (Advair Diskus)Indications:S evere persistent asthma without complication Inhale 1 Puff by mouth in the morning and 1 Puff before bedtime. 180 Each 3 4 9:21 AM EST 04/03/20 24 Active Atorvastatin Calcium 20 MG Oral Tablet (Lipitor)Indications :Stroke-like symptom,Dyslipidemia , goal LDL below 130 Take 1 Tablet by mouth in the morning. 90 Tablet 1 4 4:03 PM EDT 05/02/20 24 Active Vitamin D (Ergocalciferol) 1.25 MG (28762 UT) Oral Capsule (Drisdol)Indications :Vitamin D deficiency Take 1 Capsule by mouth once a day Wednesday and only. 24 Capsule 3 4 12:36 PM EST 06/19/20 24 Active Ondansetron 4 MG Oral Tablet Disintegrating (Zofran)Indications: Migraine without aura and without status migrainosus, not intractable Place 1 Tablet on tongue every 8 hours as needed for Nausea. dissolve on tongue. 30 Tablet 1 07/04/20 24 Active Cimetidine 400 MG Oral Tablet (Tagamet)Indications :Gastroesophageal reflux disease with esophagitis Take 1 Tablet by mouth in the morning and 1 Tablet before bedtime. 180 Tablet 1 4 4:01 PM EST 07/04/20 24 Active OneTouch Verio In Vitro Strip (Glucose Blood)Indications:Hy poglycemia Use once daily as needed for hypoglycemia episodes 100 Strip 2 4 10:14 AM EST 07/03/20 24 Active Levalbuterol HCl 1.25 MG/3ML Inhalation Nebulization SolutionIndications: Severe persistent asthma without complication Inhale one vial via nebulizer 4 times a day as needed for Wheezing or Shortness of Breath. Use in place of Combivent. 1125 mL 3 07/06/19 25 Active documented as of this encounter (statuses as of 09/08/2024) Active Problems Problem Noted Date Diagnosed Date Chronic obstructive pulmonar y disease with (acute) exacerbation 06/26/2024 Other chronic pancreatitis 06/26/2024 Ganglion cyst of dorsum of left wrist 06/26/2024 Hypothyroidism due to acquired atrophy of thyroi d 04/03/2024 Hypoglycemia 02/28/2024 Atrial fibrillation by electrocardiogram 023 H/O excision of lamina of ce rvical vertebra for decompression of spinal cord 04/22/2022 Red blood cell antibody posi tive with compatible PRBC difficult to obtain 12/19/2021 Overview (12/19/2021): Anti-e, possible anti-C; <1% of donors likely compatible Cervical stenosis of spinal canal 04/23/2020 Overview (12/31/2021): severe at C5-6 and C6-7 Iron deficiency anemia 11/09/2017 CKD (chronic kidney disease), stage II 7 Chronic hypokalemia 03/10/2012 Adrenal nodule 07/30/2011 Pancreas divisum 07/30/2011 ALLERGIC RHINITIS - MIXED TYPE 04/16/2011 Deviated nasal septum 04/16/2011 Overview (04/16/2011): with perforation Severe allergy to eggs 04/16/2011 Overview (04/16/2011): egg - ? anaphylaxis coconut, milk, wheat - nausea, vomiting, throat swelling skin test negative to these foods tested Gastroesophageal reflux disease without esophagi tis 12/23/2010 Hypersomnia with sleep apnea 09/05/2010 Vitamin D deficiency 06/30/2010 Celiac disease 06/24/2010 CYNTHIA (obstructive sleep apnea) 04/23/2010 Overview (11/08/2015): 11/05/15 PSG - CPAP 4 cwp with 1 LPM 09/06/09 PSG -- AHI 24.5 (3 centrals, 50 obstructions, 5 mixed, 65 hypopneas), PVCs noted 10/2009 -- CPAP initiatedat 12 cwp, with improved daytime fatigue 11/29/09 MSLT -- mean sleep onset 1.4 mins, no REM x4 naps 04/09/10 -- Oxygen was added at 2L on discharge from [facility] 04/26/10 Noct ox CPAP/RA -- <89% [...] change to auto. Asthma, severe persistent 04/18/2010 Overview (09/10/2010): PFT 05/07/10 - normal spirometry, no improvement with albuterol, normal lung volumes, mildly decreased DL/VA 11/18/04 - Alpha 1 antitrypsin 151 (83-199), EDIN 73 (9-67) 12/30/99 - Left lingular biopsy at [facility] s/t frequent URI and nodularity at lingula on CXR. Path showed "a focus of fibrosis is noted adjacent to a fibromuscular blood vessel." Mild non specific focal fibrosis. Gastroesophageal reflux dise ase with esophagitis without hemorrhage 04/17/2010 Irritable bowel syndrome 02/26/2010 Acquired hypothyroidism 11/29/2009 Dyslipidemia, goal LDL below 130 11/26/2009 Migraine without aura 04/15/2009 Overview (10/16/2010): Vicodin rx given on 10/15/2010 Vicodin bid rx, 60 tabs, 2 refills. Pt to gets narcotics from neuro Not from PCP Palpitations 04/15/2009 Overview (04/15/2009): Left venticular tachycardia Restless leg syndrome 04/15/2009 Endometriosis 12/31/2005 Statin intolerance Paroxysmal tachycardia Stroke-like symptom S/P laminectomy with spinal fusion documented as of this encounter (statuses as of 09/08/2024) Resolved Problems Problem Noted Date Diagnosed Date Resolved Date Postoperative anemia due to acute blood loss 2 01/06/2023 Stage 3a chronic kidney disease 06/18/2021 07/17/2021 Overview (06/19/2021): EGFR 50 Iron deficiency anemia 09/19/201508/18 Munchausen [...] 05/11/20 11 Spasm of muscle 12/29/2010 05/19/2016 Feces contents abnormal 12/17/201001/2016 COPD, severity to be determined 04/18/2010 05/07/2010 Acute gastric ulcer without mention of hemorrhage, perforation, or obstruction 04/17/2010 01/14/2015 Acute duodenal ulcer without mention of hemorrhage, perforation, or obstruction 04/17/2010 01/14/2015 Diarrhea 04/17/2010 12/10/2015 IRON DEFIC ANEMIA NOS 11/27/20092017 Methicillin resistant Staphy lococcus aureus infection 09/24/2009 08/18/2017 Overview (09/24/2009): First diagnosed 2000 CHRONIC PEPTIC ULCER NOS 04/15/2009 ADVANCE DIRECTIVE INFORMATION 12/31/2005 05/08/2024 Overview (12/31/2005): Explained to patient, no COPD with emphysema 05/11/20 11 Obstructive sleep apnea syndrome 05/11/2011 Hypothyroidism 12/10/2015 Reflux esophagitis 1 Vitamin D deficiency 011 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 05/11/20 11 Altered level of consciousness 04/30/2022 documented as of this encounter (statuses as of 09/08/2024) Immunizations Name Administration Dates Next Due Pneumococcal Conjugate Vaccine, 20-valent (Prevn ar20) 12/31/2021 Pneumococcal Polysaccharide PPV23 (Pneumovax) Seasonal Influenza, MDCK, Trivalent, PF, (Flucel vax) 04/03/2024 TDAP (age 10 and older)(Boostrix) 12/21/2016 TDAP, Age 7 and older, IM (Adacel) 01/02/2005 documented as of this encounter Social History Tobacco Use Types Packs/Day Years Used Date Smoking Tobacco: Never Smokeless Tobacco: Never Comments:no passive smoke ex posures Alcohol Use Standard Drinks/Week Comments No 0 (1 standard drink = 0.6 oz pur e alcohol) PHQ-2 Answer Date Recorded PHQ-2 Score 0 05/08/2018 Hunger Vital Sign Answer Date Recorded Within the past 12 months, y ou worried that your food would run out before you got the money to buy more. Never true 11/22/19 24 Within the past 12 months, t he food you bought just didn't last and you didn't have money to get more. Never true 11/22/2023 Childcare Answer Date Recorded Do you feel overwhelmed with taking care of a child, family member or friend? No 11/22/2023 Does your family need help f inding childcare? (Household - for ages 0-17 years) Not on file 11/22/2023 Clothing Answer Date Recorded Have you been unable to get clothing when it was really needed? No 11/22/2023 Is your family able to get c lothes or diapers when needed? (Household - for ages 0-17 years) Not on file 11/22/2023 Personal Safety Answer Date Recorded Do you feel unsafe or have concerns for your saf ety? No 11/22/2023 Do you have concerns for you r family's safety? (Household - for ages 0-17 years) Not on file 11/22/2023 Utilities Answer Date Recorded Do you have trouble paying y our heating, water, or electric bill? No 11/22/2023 Is your family able to pay t he heat, water, or electric bill? (Household - for ages 0-17 years) Not on file 11/22/2023 Does your family have access to good internet? (Household - for ages 0-17 years) Not on file 11/22/2023 Employment Status Answer Date Recorded Are you unemployed or without regular income? Ye s 11/22/2023 Does the household have a re lar source of income? (Household - for ages 0-17 years) Not on file 11/22/2023 Social Connections Answer Date Recorded How often do you feel lonely or isolated from those around you? Sometimes 11/22/2023 Financial Resource Strain Answer Date R ecorded Do you have any trouble payi ng for your medications, or do you think you might in the future? No 11/22/2023 Does your family have troubl e paying for medicine? (Household - for ages 0-17 years) Not on file 11/22/2023 Transportation Needs Answer Date Record ed READ ONLY Do you have troubl e getting a ride to medical visits or work? Never True 11/22/2023 Does your family have a hard time getting a ride to doctors visits? (Household - for ages 0-17 years) Not on file 11/22/2023 Has lack of transportation k ept you from medical appointments, meetings, work, or from getting things needed for daily living? Check all that apply. (Adult - for ages 18 years and over) Not on file 11/22/2023 Do you (or your family) have trouble finding or paying for a ride (transportation)? (Household - for ages 0-17 years) Not on file 11/22/2023 Housing Stability Answer Date Recorded Do you currently live in a s helter or have no steady place to sleep at night? No 11/22/2023 READ ONLY Do you think you a re at risk of becoming homeless? No 11/22/2023 Does your family worry about paying for your home or becoming homeless? (Household - for ages 0-17 years) Not on file 0 11/22/2023 Are you homeless or worried that you might be in the future? (Adult - for ages 18 years and over) Not on file Are you (or your family) shelley eless or worried that you might be in the future? (Household - for ages 0-17 years) Not on file Food Insecurity Answer Date Recorded Do you need food for this week? No 11/22/2023 Are you able to get enough f ood for your family? (Household - for ages 0-17 years) Not on file 11/22/2023 Does your family need food t his week? (Household - for ages 0-17 years) Not on file 11/22/2023 Do you always have enough fo od for your family? (Household - for ages 0-17 years) Not on file 11/22/2023 Food Insecurity Answer Date Recorded Within the past 12 months, y ou worried that your food would run out before you got the money to buy more. Never true 11/22/19 24 Within the past 12 months, t he food you bought just didn't last and you didn't have money to get more. Never true 11/22/2023 Do you need food for this week? 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 Answer Date of Assessment Author No 04/22/2022 3:31 PM EDT Alisson Turcios RN * Are you blind or do you have serious difficulty seeing, even when wearing glasses? Answer Date of Assessment Author No 04/22/2022 3:31 PM EDT Alisson Turcios RN * Do you have serious difficulty walking or climbing stairs? (5 years old or older) Answer Date of Assessment Author No 04/22/2022 3:31 PM EDT Alisson Turcios RN * Do you have difficulty dressing or bathing? (5 years old or older) Answer Date of Assessment Author No 04/22/2022 3:31 PM EDT Alisson Turcios RN * Because of a physical, mental, or emotional condition, do you have difficulty doing errands alone such as visiting a doctors office or shopping? (15 years old or older) Answer Date of Assessment Author No 04/22/2022 3:31 PM EDT Alisson Turcios RN documented as of this encounter Mental Status * Because of a physical, mental, or emotional condition, do you have serious difficulty concentrating, remembering, or making decisions? (5 years old or older) Answer Entry Date Author No 04/22/2022 3:31 PM EDT Alisson Turcios RN documented in this encounter Nursing Notes * Gloria Olmos RN - 09/08/2024 2:39 PM EST Patient here for port flush/labs from port. Patient denies any complaints at this time. VAD accessed without difficulty, + blood return noted, waste tube drawn, labs drawn, flushed with 20 ml NSS per protocol. Beltre needle removed intact. Dry dressing applied. Patient left facility in stable condition. documented in this encounter Plan of Treatment Upcoming Encounters Date Type Department Care Team (Late st Contact Info) Description 09/15/2024 2:00 PM EDT Office Visit Hematology/Oncology Chava Cordova [place] [address] [facility] [place] [phone] Olivia Sawyer CRNP [address] [place] [address] [id number] 09/18/2024 1:30 PM EDT Office Visit Orthopaedics [facility] [address] [place] [phone] Damaris Ardon PA-C [address] [place] [phone] 09/28/2024 1:00 PM EDT Office Visit Endocrinology [address] [place] [phone] Vickie Martines MD [address] [place] [address] 10/16/2024 11:00 AM EDT Office Visit Cardiology, [facility] [address] [place] [address] Silverio Aguirre DO [address] [place] [address] 10/20/2024 2:00 PM EDT Nurse Only Hematology/[address] [phone] [address], [address]c [address] [address] 12/25/2024 12:20 PM EDT Office Visit Family Medicine [address] [place] [phone] oJann You PA-C [address] [place] [address] [place] [id number] Pending Results Name Type Priority Associated Diagnoses Date /Time IRON SCREEN, INCLUDING TIBC Lab STAT Celiac disease CKD (chronic kidney disease), stage II Vitamin D deficiency Restless leg syndrome Iron deficiency anemia secondary to inadequate dietary iron intake 09/08/2024 2:08 PM EST FERRITIN Lab STAT Celiac disease CKD (chronic kidney disease), stage II Vitamin D deficiency Restless leg syndrome Iron deficiency anemia secondary to inadequate dietary iron intake 09/08/2024 2:08 PM EST FOLIC ACID Lab STAT Vitamin D deficiency Iron deficiency anemia secondary to inadequate dietary iron intake Celiac disease Drug-induced folate deficiency anemia 09/08/2024 2:08 PM EST Scheduled Procedures Name Priority Associated Diagnoses Date/Ti me COLONOSCOPY FLEXIBLE PROXIMA L DIAGNOSTIC Recall Screening for colon cancer Health Maintenance Due Date Last Done Comments Cologuard 2006 Sigmoidoscopy 2006 Zoster Vaccines (1 of 2) 2011 Fecal Occult Blood Test 08/11/2013 08/11/2012 Depression Screening 02/15/2019 02/15/2018 COVID-19 Vaccine ( season) 2024 Mammogram 12/06/2024 12/07/2023, 01/04, 12/22/2012, Additional history exists TSH 02/10/2025 02/11/2024, 09/03, 07/08/2022, Additional history exists O2 ASSESSMENT COMPLETED IN PAST YEAR FOR COPD 05/12/2025 05/12/2024 DTap/Tdap Vaccines (3 - Td or Tdap) 12/21/2026 12/21/2016, 01/02/2005 Colonoscopy 05/12/2027 05/12/2024, 02/2024, 03/26/2011, Additional history exists Colorectal Cancer Screening 05/12/2027 Lipid Panel 04/07/2029 04/07/2024, 10/04, 08/27/2015, Additional history exists Pneumococcal Vaccine: 50+ Years Completed 12/31/2021, 07/05/2004 Influenza Vaccine (FLU shot) Completed 04/03/2024 Alpha-1 Antitrypsin Discontinued HIV Screening Discontinued HPV (Gardasil) Vaccine Aged Out No lo nger eligible based on patient's age to complete this topic Hepatitis B Vaccine Aged Out No longe r eligible based on patient's age to complete this topic MENINGOCOCCAL (MENACTRA/MENVEO) Aged Out No longer eligible based on patient's age to complete this topic Meningitis B Vaccine (Bexsero/Trumemba) Aged Out No longer eligible based on patient's age to complete this topic documented as of this encounter Medical Devices Implanted Type Area Arabic Professor Device Identifier Shelf Expiration Date Model / Serial / Lot Dbx 5cc [id number] - [id number] Implanted:Qt y: 1 on 04/22/2022 by Jaspreet Georges MD at [facility] Tissue - Human MUSCULOSKELETAL TRANSPLANT FND [id number] 11/22/2023 [id number] / [id number] / LOT NA Vitoss Bimodal Foam Pack 2.5cc - [id number] Implanted:Qt y: 1 on 04/22/2022 by Jaspreet Georges MD at OR [facility] ANATOLIY : SPINE [id number] 04/01/20232101- 190 2 / [id number] / [id number] Vitoss Bimodal Foam Pack 2.5cc - [id number] Implanted:Qt y: 1 on 04/22/2022 by Jaspreet Georges MD at OR [facility] ANATOLIY : SPINE [id number] 09/01/20232101- 190 2 / [id number] / [id number] [place]at[place] [place] Screw Set Implanted:Qt y: 10 on 04/22/2022 by Jaspreet Georges MD at OR [facility] N/A: Spine Cervical 7601-100 01 / / Anatoli[employer] [place] 3.5 X 12mm Screw Implanted:Qt y: 4 on 04/22/2022 by Jaspreet Georges MD at OR [facility] N/A: Spine Cervical 7601-035 12 / / [place] 3.5 X 10mm Screw Implanted:Qt y: 3 on 04/22/2022 by Jaspreet Georges MD at OR [facility] N/A: Spine Cervical 7601-035 10 / / [place] 4.0 X 10mm Screw Implanted:Qt y: 1 on 04/22/2022 by Jaspreet Georges MD at OR [facility] N/A: Spine Cervical 7601-040 10 / / An[place] [place] 4.5 X 22mm Screw Implanted:Qt y: 2 on 04/22/2022 by Jaspreet Georges MD at OR [facility] N/A: Spine Cervical 7601-045 22 / / [place] 3.5 X 75mm [place] Implanted:Qt y: 2 on 04/22/2022 by Jaspreet Georges MD at OR [facility] N/A: Spine Cervical 7601-095 75 / / documented as of this encounter Procedures Procedure Name Priority Date/Time Associated Diagnosis Comments DIFFERENTIAL, AUTOMATED STAT 09/08/2024 2:08 PM EST Celiac disease CKD (chronic kidney disease), stage II Vitamin D deficiency Restless leg syndrome Iron deficiency anemia secondary to inadequate dietary iron intake CBC STAT 09/08/2024 2:08 PM EST Celiac disease CKD (chronic kidney disease), stage II Vitamin D deficiency Restless leg syndrome Iron deficiency anemia secondary to inadequate dietary iron intake CBC STAT 09/08/2024 2:08 PM EST Celiac disease CKD (chronic kidney disease), stage II Vitamin D deficiency Restless leg syndrome Iron deficiency anemia secondary to inadequate dietary iron intake documented in this encounter Results * (ABNORMAL) DIFFERENTIAL, AUTOMATED (09/08/2024 2:08 PM EST) WBC 7.77 4.00 - 10.80 K/uL 09/08/2024 2:23 PM EST [facility] 56-02 Neutrophils % 77.3(H) 40.0 - 75.0 % 09/08/2024 2:23 PM EST [facility] 56-02 Lymphocytes % 16.9(L) 18.0 - 42.0 % 09/08/2024 2:23 PM EST [facility] 56-02 Monocytes % 4.5 1.0 - 11.0 % 09/08/2024 2:23 PM EST [facility] 56-02 Eosinophils % 1.0 0.0 - 6.0 % 09/08/2024 2:23 PM EST [facility] 56-02 Basophils % 0.3 0.0 - 2.0 % 09/08/2024 2:23 PM EST [facility] 56-02 Absolute Neutrophils 6.01 1.80 - 7.70 K/uL 09/08/2024 2:23 PM EST [facility] 56-02 Absolute Lymphocytes 1.31 1.00 - 4.80 K/ul 09/08/2024 2:23 PM EST [facility] 56- Absolute Monocytes 0.35 0.00 - 1.10 K/uL 09/08/2024 2:23 PM [facility] 56- Absolute Eosinophils 0.08 0.00 - 0.70 K/uL 09/08/2024 2:23 PM EST [facility] 56- Absolute Basophils 0.02 0.00 - 0.20 K/uL 09/08/2024 2:23 PM EST [facility] 56- Blood Venous blood specimen / Unknown Venipuncture / Unknown 09/08/2024 2:08 PM EST 09/08/2024 2:20 PM EST us Olivia FALCON LAB BLOOD ORDERABLES Fi nal Result [facility] [address] [place] [address] * (ABNORMAL) CBC (09/08/2024 2:08 PM EST) WBC 7.77 4.00 - 10.80 K/uL 09/08/2024 2:23 PM [facility] 56 RBC 3.47 3.85 - 5.15 M/uL 09/08/2024 2:23 PM [facility] 56 HGB 11.6(L) 12.0 - 15.3 g/dL 09/08/2024 2:23 PM [facility] 56- HCT 37.5 36.0 - 45.2 % 09/08/2024 2:23 PM [facility] 56- MCV 108.1 81.5 - 97.5 fL 09/08/2024 2:23 PM [facility] 56- MCH 33.4 27.0 - 34.0 pg 09/08/2024 2:23 PM [facility] 56 MCHC 30.9 32.0 - 36.0 g/dL 09/08/2024 2:23 PM [facility] 56 RDW 15.8 11.5 - 15.5 % 09/08/2024 2:23 PM EST [facility] 56 PLT 314 140 - 400 K/uL 09/08/2024 2:23 PM EST [facility] 56- MPV 9.6 6.6 - 11.1 fL 09/08/2024 2:23 PM EST [facility] 56 Blood Venous blood specimen / Unknown Venipuncture / Unknown 09/08/2024 2:08 PM EST 09/08/2024 2:20 PM EST us Olivia FALCON LAB BLOOD ORDERABLES Fi nal Result [facility] [address] [place] [address] documented in this encounter Visit Diagnoses Diagnosis Iron deficiency anemia, unspecified iron deficiency anemia type- Primary Celiac disease CKD (chronic kidney disease), stage II Chronic kidney disease, Stage II (mild) Vitamin D deficiency Unspecified vitamin D deficiency Restless leg syndrome Restless legs syndrome (RLS) Iron deficiency anemia secondary to inadequate dietary iron intake Drug-induced folate deficiency anemia Folate-deficiency anemia documented in this encounter Administered Medications Inactive Administered Medications - up to 3 most recent administrations Medication Order MAR Action Action Date Dose Rate Site sodium chloride 0.9 % flush/inj 20 mL 20 mL, IV Push, PRN IV Flush and Lock, Starting on Wed09/08/24 at 1408, Until Wed09/08/24 at 1842, Do not flush if lock, PICC, or central line not in place; IV infusing or unable to flush. For midlines and central lines. For IV Flush and Lock, IVAD is flushed with a total of 20 mL Normal Saline, 10 mL of Normal Saline Flush with 10 mL of Normal Saline acting as IV LOCK.Indications:Iron deficiency anemia, unspecified iron deficiency anemia type Given 09/08/2024 2:16 PM EST 20 mL documented in this encounter Advance Directives * Full Code (Latest Code Status on File) Date Activated Date Inactivated Comments 05/12/2024 1:27 PM 05/12/2024 7:00 PM This order r eflects the patients wishes and were consensually agreed upon. Question Answer Comments Discussion of Advance Direct rene occurred with: Not Discussed due to patient's condition * Full Code Date Activated Date Inactivated Comments 05/12/2024 12:06 PM 05/12/2024 1:27 PM This order reflects the patients wishes and were consensually agreed upon. Question Answer Comments Discussion of Advance Direct rene occurred with: Not Discussed due to patient's condition * Full Code Date Activated Date Inactivated Comments 04/22/2022 1:27 [...] Discussion of Advance Directives occurred with: Patient Care Teams Commercial Journeyman Electrician Relationship Specialty Start Date End Date Vicki Cadet MD [address] [place] [address] [place] [phone] PCP - General Family Medicine 02/01/24 documented as of this encounter
--- OUTSIDE RECORDS SUMMARY | 2024-09-15 05:16 | External Medical Summary ---
Author Name Unknown Address Unknown Organization K09:[facility] [place] [address] Laboratory Report Ordering Provider Test Date Status EDMUND GONZALES 09/08/2024 14:08:38 Final Observation Date Value Abnormality Reference (Units ) Status WBC, Total 09/08/2024 14:08:38 7.77 4.00-10.8 0 (K/uL) Final RBC 09/08/2024 14:08:38 3.47 3.85-5.15 (M/uL) Final Hemoglobin 09/08/2024 14:08:38 11.6 Below low normal 12 .0-15.3 (g/dL) Final HCT 09/08/2024 14:08:38 37.5 36.0-45.2 (%) Final MCV 09/08/2024 14:08:38 108.1 81.5-97.5 (fL) Final MCH 09/08/2024 14:08:38 33.4 27.0-34.0 (pg) Final MCHC 09/08/2024 14:08:38 30.9 32.0-36.0 (g/dL) Final RDW 09/08/2024 14:08:38 15.8 11.5-15.5 (%) Final Platelets 09/08/2024 14:08:38 314 140-400 (K /uL) Final MPV 09/08/2024 14:08:38 9.6 6.6-11.1 ( fL) Final Performing Location [facility] [place] [address]
--- OUTSIDE RECORDS SUMMARY | 2024-09-15 05:16 | External Medical Summary ---
Author Name Unknown Address Unknown Organization K01:[facility]ORY [facility] - [address] [place] [address] Laboratory Report Ordering Provider Test Date Status EDMUND GONZALES 09/08/2024 14:08:38 Final Observation Date Value Abnormality Reference (Units ) Status Folic Acid 09/08/2024 14:08:38 2.0 Below low normal >4 .5 (ng/mL) Final Performing Location [facility] - [address] [place] [address]
--- OUTSIDE RECORDS SUMMARY | 2024-09-15 05:16 | External Medical Summary ---
Author Name Unknown Address Unknown Organization K01:[facility]ATORY [facility] - [address] [place] [address] Laboratory Report Ordering Provider Test Date Status EDMUND GONZALES 09/08/2024 14:08:38 Final Observation Date Value Abnormality Reference (Units ) Status Ferritin 09/08/2024 14:08:38 115 13-150 (ng /mL) Final Postmenopausal women have hi gher ferritin levels than pre-menopausal women. The above reference interval is based on pre-menopausal women. Performing Location [facility] - [address] [place] [address]
--- OUTSIDE RECORDS SUMMARY | 2024-09-15 05:16 | External Medical Summary | Summary of Care ---
Author Name Unknown Organization [facility] Address [address] [place] [address] Phone [phone] Care Team Providers Care Triage Register Nurse Name Role Phone Vicki Cadet MD Primary Care Prov ider Reason for Visit * Reason Comments Procedure Port flush/labs from port Encounter Details Date Type Department Care Team (Late st Contact Info) Description 09/08/2024 2:00 PM EST Nurse Only Hematology/Oncology Treatment, [place] [address] [place] [address] Park, Chair 11 Hem Onc [address] [facility] [phone] Procedure (Port flush/labs from port) Allergies Active [...] % nasal sprayIndications:All ergic rhinitis Administer 1 [place] into nostril 2 times a day. 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 [phone] Vickie Martines MD [address] [place] [address] 10/16/2024 11:00 AM EDT Office Visit Cardiology, [facility] [address] [place] [address] Silverio Aguirre DO [address] [place] [address] 10/20/2024 2:00 PM EDT Nurse Only Hematology/[address] [phone] Park, Chair 11 [address] [address] 12/25/2024 12:20 PM EDT Office Visit Family Medicine [address] [place] [phone] Joann You PA-C [address] [place] [address] [place] [phone] Pending Results Name Type Priority Associated Diagnoses [...] this encounter Medical Devices Implanted Type Area Freezer Worker Device Identifier Shelf Expiration Date Model / Serial / Lot Dbx 5cc [id number] - [id number] Implanted:Qt y: 1 on 04/22/2022 by Jaspreet Georges MD at OR [facility] Tissue - Human MUSCULOSKELETAL TRANSPLANT FND [id number] 11/22/2023 [id number] / [id number] / LOT NA Vitoss Bimodal Foam Pack 2.5cc - [id number] Implanted:Qt y: 1 on 04/22/2022 by Jaspreet Georges MD at OR [facility] ANATOLIY : SPINE [id number] 04/01/20232101- 190 2 / [id number] / [id number] Vitoss Bimodal Foam Pack 2.5cc - [id number] Implanted:Qt y: 1 on 04/22/2022 by Jaspreet Georges MD at OR [facility] ANATOLIY : SPINE [id number] 09/01/20232101- 190 2 / [id number] / [id number] [place] Screw Set Implanted:Qt y: 10 on 04/22/2022 by Jaspreet Georges MD at OR [facility] N/A: Spine Cervical 7601-100 01 / / [place] 3.5 X 12mm Screw Implanted:Qt y: 4 on 04/22/2022 by Jaspreet Georges MD at OR [facility] N/A: Spine Cervical 7601-035 12 / / [place] 3.5 X 10mm Screw Implanted:Qt y: 3 on 04/22/2022 by Jaspreet Georges MD at OR [facility] N/A: Spine Cervical 7601-035 10 / / [place] 4.0 X 10mm Screw Implanted:Qt y: 1 on 04/22/2022 by Jaspreet Georges MD at OR [facility] N/A: Spine Cervical 7601-040 10 / / [place] 4.5 X 22mm Screw Implanted:Qt y: 2 on 04/22/2022 by Jaspreet Georges MD at OR [facility] N/A: Spine Cervical 7601-045 22 / / [place] 3.5 X 75mm [place] Implanted:Qt y: 2 on 04/22/2022 by Jaspreet Georges MD at OR [facility] N/A: Spine Cervical [id number] 75 / / documented as of this [...] - 4.80 K/ul 09/08/2024 2:23 PM EST [facility] 56- Absolute Monocytes 0.35 0.00 - 1.10 K/uL 09/08/2024 2:23 PM [facility] 56- Absolute Eosinophils 0.08 0.00 - 0.70 K/uL 09/08/2024 2:23 PM EST [facility] 56- Absolute Basophils 0.02 0.00 - 0.20 K/uL 09/08/2024 2:23 PM EST [facility] 56- Blood Venous blood specimen / Unknown Venipuncture / Unknown 09/08/2024 2:08 PM EST 09/08/2024 2:20 PM EST us Olivia FALCON LAB BLOOD ORDERABLES Fi nal Result [facility] [address] [place] [address] * (ABNORMAL) CBC (09/08/2024 2:08 PM EST) WBC 7.77 4.00 - 10.80 K/uL 09/08/2024 2:23 PM [facility] 56 RBC 3.47 3.85 - 5.15 M/uL 09/08/2024 2:23 PM [facility] 56 HGB 11.6(L) 12.0 - 15.3 g/dL 09/08/2024 2:23 PM [facility] 56- HCT 37.5 36.0 - 45.2 % 09/08/2024 2:23 PM [facility] 56- MCV 108.1 81.5 - 97.5 fL 09/08/2024 2:23 PM [facility] 56- MCH 33.4 27.0 - 34.0 pg 09/08/2024 2:23 PM [facility] 56 MCHC 30.9 32.0 - 36.0 g/dL 09/08/2024 2:23 PM [facility] 56 RDW 15.8 11.5 - 15.5 % 09/08/2024 2:23 PM EST [facility] 56 PLT 314 140 - 400 K/uL 09/08/2024 2:23 PM EST [facility] 56- MPV 9.6 6.6 - 11.1 fL 09/08/2024 2:23 PM EST [facility] 56 Blood Venous blood specimen / Unknown Venipuncture / Unknown 09/08/2024 2:08 PM EST 09/08/2024 2:20 PM EST us Olivia FALCON LAB BLOOD ORDERABLES Fi nal Result [facility] [address] [place] [address] documented in this encounter Visit [...] Advance Directives occurred with: Patient Care Teams Triage Register Nurse Relationship Specialty Start Date End Date Vicki Cadet MD [address] [place] [address] [place] [phone] PCP - General Family Medicine 02/01/24 documented as of this encounter
--- OUTSIDE RECORDS SUMMARY | 2024-09-15 05:16 | External Medical Summary | Summary of Care ---
Author Name Unknown Organization [facility] Address [address] [facility] [address] Phone [phone] Care Team Providers Care Occupational Therapy Supervisor Name Role Phone Vicki Cadet MD Primary Care Prov ider Reason for Visit * Reason Comments Walk In RAPID RESPONSE-- pt had episode of lightheadedness, syncope, and emesis. Encounter Details Date Type Department Care Team (Late st Contact Info) Description 08/21/2024 3:40 PM EST Office Visit Family [facility] [address] [place] [phone] Alpesh Gimenez DO [address] [place] [address] Syncope and collapse* Allergies Active Allergy Reactions Criticality Noted Date [...] as of this encounter (statuses as of 08/24/2024) Medications MULTIVITAMINS PO TABS 1 TABLET DAILY [...] % nasal sprayIndications:All ergic rhinitis Administer 1 [place] into nostril 2 times a day. 3 [...] 24 Active Vitamin D (Ergocalciferol) 1.25 MG (02658 UT) Oral Capsule (Drisdol)Indications :Vitamin D deficiency [...] as of this encounter (statuses as of 08/24/2024) Active Problems Problem Noted Date Diagnosed Date [...] was added at 2L on discharge from [facility] 04/26/10 Noct ox CPAP/RA -- [...] (9-67) 12/30/99 - Left lingular biopsy at [facility] s/t frequent URI and nodularity at [...] as of this encounter (statuses as of 08/24/2024) Resolved Problems Problem Noted Date Diagnosed Date [...] as of this encounter (statuses as of 08/24/2024) Immunizations Name Administration Dates Next Due Pneumococcal [...] file Not on file Not on 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 Not on file 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 Not on file Not on file [employer] Not on file Not on file Not on file documented as of this encounter Last Filed Vital Signs Vital Sign Reading Time Taken Comments Blood Pressure 158/88 08/21/2024 3:38 PM EST Pulse 71 08/21/2024 3:38 PM EST Temperature 36.1 C (97 F) 08/21/2024 3:38 PM EST Respiratory Rate - - Oxygen Saturation 97% 08/21/2024 3:38 PM EST Inhaled Oxygen Concentration - - Weight - - Height - - Body Mass Index - - documented in this encounter Functional Status * Are you [...] Alisson Turcios RN documented in this encounter Progress Notes * Alpesh Gimenez, - 08/24/2024 12:01 PM EST Images from the original note were not included. History of Present Illness Lucinda Hackett is a 64 year old female that presents for Walk In (RAPID RESPONSE-- pt had episode of lightheadedness, syncope, and emesis. 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 Musculoskeletal: General: Normal range of motion. Neurological: General: No focal deficit present. Mental Status: She is alert and oriented to person, place, and time. Cranial Nerves: No cranial nerve deficit. Sensory: No sensory deficit. Motor: No weakness. Coordination: Coordination normal. Physical Exam Vitals: 08/21/24 1430 08/21/24 1538 Temp: 97 F (36.1 C) Pulse: 108 71 SpO2: 97% 97% BP: 162/94 158/88 Assessment and Plan Syncope and collapse Vitals and EKG stable After monitoring patient And evaluating her for any potential Injury from her fall (none identified) She was released - EKG; Future - EKG Wrap-Up Time: I spent a total of 40-54 minutes (exact time 41 mins) on the date of service in preparation, delivery, and documentation of the care provided to Lucinda Hackett excluding any time spent in the performance of separately billed services. documented in this encounter Procedure Notes * Eloy Morillo MD - 08/21/2024 2:53 PM ESTAssociated Order(s): EKG REASON FOR STUDY: syncope and collapse;syncope and collapse CONCLUSIONS: Normal sinus rhythm with sinus arrhythmia Normal ECG When compared with ECG of 06-Jan-2023 16:06, Sinus rhythm has replaced Atrial fibrillation Vent. rate has decreased by 93 bpm Criteria for Septal infarct are no longer Present ST no longer depressed in Lateral leads Ventricular Rate: 70 Atrial Rate: 70 [place] Interval: 158 QRS Duration: 66 QT/QTc: 390/421 ms P-R-T [place]: 62 : -16 : 53 degrees documented in this encounter Plan of Treatment Upcoming Encounters Date Type Department Care Team (Late st Contact Info) Description 08/25/2024 2:00 PM EST Nutrition Services Nutrition, [facility] 132 [facility] [place] [address] Jayshree Rawls, URVASHIN 132 [facility] [address] 09/08/2024 2:00 PM EST Nurse Only Hematology/Oncology Treatment, [place] 200 [facility] [address] [address] Tasha, Chair 11 Hem Onc [facility] 200 [facility], [place] [address] 09/15/2024 2:00 PM EDT Office Visit Hematology/Oncology [facility] 200 [facility], [place] [address] Olivia Sawyer, TERRIE 400 [facility] [place] [phone] 09/18/2024 1:30 PM EDT Office Visit Orthopaedics [facility] 132 [facility] [phone] Damaris Ardon PA-C 132 [facility] [phone] 09/28/2024 1:00 PM EDT Office Visit Endocrinology [address] [place] [address] Vickie Martines MD [address] [place] [address] 10/16/2024 11:00 AM EDT Office Visit Cardiology, [facility] [address] [place] [address] Silverio Aguirre O DO [address] [place] [address] 12/25/2024 12:20 PM EDT Office Visit Family Medicine [address] [place] [phone] Joann You PA-C [address] [place] [address] [place] [phone] Scheduled Procedures Name Priority Associated Diagnoses Date/Ti [...] this encounter Medical Devices Implanted Type Area Interior Plant Caretaker Device Identifier Shelf Expiration Date Model / Serial / Lot Dbx 5cc [id number] - [id number] Implanted:Qt y: 1 on 04/22/2022 by Jaspreet Georges MD at OR [facility] Tissue - Human MUSCULOSKELETAL TRANSPLANT FND [id number] 11/22/2023 [id number] / [id number] / LOT NA Vitoss Bimodal Foam Pack 2.5cc - [id number] Implanted:Qt y: 1 on 04/22/2022 by Jaspreet Georges MD at OR [facility] ANATOLIY : SPINE [id number] 04/01/20232101- 190 2 / [id number] / [id number] Vitoss Bimodal Foam Pack 2.5cc - [id number] Implanted:Qt y: 1 on 04/22/2022 by Jaspreet Georges MD at OR [facility] ANATOLIY : SPINE [id number] 09/01/20232101- 190 2 / [id number] / [id number] Anatoli[place] Screw Set Implanted:Qt y: 10 on 04/22/2022 by Jaspreet Georges MD at OR [facility] N/A: Spine Cervical 7601-100 01 / / [place] 3.5 X 12mm Screw Implanted:Qt y: 4 on 04/22/2022 by Jaspreet Georges MD at OR [facility] N/A: Spine Cervical 7601-035 12 / / [place] 3.5 X 10mm Screw Implanted:Qt y: 3 on 04/22/2022 by Jaspreet Georges MD at OR [facility] N/A: Spine Cervical 7601-035 10 / / [place] 4.0 X 10mm Screw Implanted:Qt y: 1 on 04/22/2022 by Jaspreet Georges MD at OR [facility] N/A: Spine Cervical 7601-040 10 / / [place] 4.5 X 22mm Screw Implanted:Qt y: 2 on 04/22/2022 by Jaspreet Georges MD at OR [facility] N/A: Spine Cervical 6551-729 22 / / [place] 3.5 X 75mm [place] Implanted:Qt y: 2 on 04/22/2022 by Jaspreet Georges MD at OR [facility] N/A: Spine Cervical [id number] 75 / / documented as of this encounter Procedures Procedure Name Priority Date/Time Associated Diagnosis Comments NJ ECG ROUTINE ECG W/LEAST 12 LDS I&R ONLY Routine 08/21/2024 2:53 PM EST Syncope and collapse documented in this encounter Results * EKG (08/21/2024 2:53 PM EST) 08/21/2024 2:53 PM EST Narrative Procedure Note Eloy Morillo MD - 08/21/2024 2:53 PM EST REASON FOR STUDY: syncope and collapse;syncope and collapse CONCLUSIONS: Normal sinus rhythm with sinus arrhythmia Normal ECG When compared with ECG of 06-Jan-2023 16:06, Sinus rhythm has replaced Atrial fibrillation Vent. rate has decreased by 93 bpm Criteria for Septal infarct are no longer Present ST no longer depressed in Lateral leads Ventricular Rate: 70 Atrial Rate: 70 [place] Interval: 158 QRS Duration: 66 QT/QTc: 390/421 ms P-R-T [place]: 62 : -16 : 53 degrees us Alpesh Gimenez DO EKG Final R esult [facility] documented in this encounter Visit Diagnoses Diagnosis Syncope and collapse- Primary documented in this encounter Advance Directives * [...] Advance Directives occurred with: Patient Care Teams Occupational Therapy Supervisor Relationship Specialty Start Date End Date Vicki Cadet MD [address] [place] [address] [place] [phone] PCP - General Family Medicine 02/01/24 documented as of this encounter
--- OUTSIDE RECORDS SUMMARY | 2024-09-15 05:16 | External Medical Summary ---
Author Name Unknown Address Unknown Organization K01:LABORATORY [facility] - [address] [facility] [place] [address] Laboratory Report Ordering Provider Test Date Status EDMUND GONZALES 09/08/2024 14:08:38 Final Observation Date Value Abnormality Reference (Units ) Status Iron 09/08/2024 14:08:38 50 33-151 (ug /dL) Final Iron-binding capacity 09/08/2024 14:08:38 326 250-425 (ug/dL) Final Transferrin Sat % 09/08/2024 14:08:38 15 15 -55 (%) Final Performing Location LABORATORY C - [address] [place] [address]
--- OUTSIDE RECORDS SUMMARY | 2024-09-15 05:17 | External Medical Summary | Summary of Care ---
Author Name Unknown Organization [facility] Address [address] [facility] [facility] [address] Phone [phone] Care Team Providers Care Supervisor Litharge Name Role Phone Vicki Cadet MD Primary Care Prov ider Reason for Visit * Reason Comments Follow Up R 5th metacarpal fra ctureDOI- 07/25/24 Encounter Details Date Type Department Care Team (Late st Contact Info) Description 08/21/2024 2:00 PM EST Office Visit Orthopaedics [facility] [address] [place] [phone] Damaris Ardon PA-C [address] [place] [phone] Displaced fracture of neck of fifth metacarpal bone, right hand, initial encounter for closed fracture* Allergies Active Allergy Reactions Criticality Noted Date [...] as of this encounter (statuses as of 08/23/2024) Medications MULTIVITAMINS PO TABS 1 TABLET DAILY [...] % nasal sprayIndications:All ergic rhinitis Administer 1 [place] into nostril 2 times a day. 3 [...] 24 Active Vitamin D (Ergocalciferol) 1.25 MG (94384 UT) Oral Capsule (Drisdol)Indications :Vitamin D deficiency [...] as of this encounter (statuses as of 08/23/2024) Active Problems Problem Noted Date Diagnosed Date [...] was added at 2L on discharge from [facility] 04/26/10 Noct ox CPAP/RA -- <89% [...] (9-67) 12/30/99 - Left lingular biopsy at [facility] s/t frequent URI and nodularity at [...] as of this encounter (statuses as of 08/23/2024) Resolved Problems Problem Noted Date Diagnosed Date [...] of muscle 12/29/2010 05/19/2016 Feces contents abnormal 12/17/2010 06/0 01/2016 COPD, [...] as of this encounter (statuses as of 08/23/2024) Immunizations Name Administration Dates Next Due Pneumococcal [...] 11/22/2023 Does the household have a re gular source of income? 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 * Damaris Ardon PA-C - 08/21/2024 2:25 PM EST Lucinda Hackett is a 64 year old female who presents for follow up regarding right 5th metacarpal fracture s/p fall on ice on 07/23/2024. Lucinda Hackett is here unaccompanied. 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 Patient was last seen on 08/11/2024 where she was doing well. Patient was advised to come into the splint part-time to work on vbmoz-[id number]-[id number] exercises and follow up in 1 week. Patient reports that she is doing well and that she has been coming out of the splint part-time to work on [id number] exercises. She reports having minimal pain and instead reports a tightness when trying to use the hand. She denies any numbness or tingling. Review of systems: All others negative except those noted above in HPI. 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 Celiac disease Celiac disease 05/01/2014 EGD marked changes in duodenum Cervical stenosis of spine 04/23/2020 severe at C5-6 and C6-7 Chronic pancreatitis ([facility]) Colitis due to Escherichia coli 03/12/2017 COPD with emphysema ([facility]) COVID 08/04/2021 admitted [facility] treated with dexamethasone COVID-19 05/05/2022 nasal swab in office Encounter for hepatitis C screening test for low risk patient 08/14/2021 negative Epistaxis 08/16/2017 [facility] ER Hospital acquired methicillin resistant Staphylococcus aureus infection 2000 Hypokalemia Hypothyroidism Intestinal disaccharidase deficiency Iron deficiency anemia Migraine Mitral valve prolapse Motion sickness Obstructive sleep apnea syndrome Paroxysmal tachycardia (HCC) Pneumonia due to COVID-19 virus 08/04/2021 Dexamethasone but not remdesivir, due to timing. [facility] Postoperative anemia due to acute blood loss 04/24/2022 Reflux esophagitis Restless legs syndrome Stage 3a chronic kidney disease (HCC) 06/18/2021 EGFR 50 Statin intolerance Vitamin D deficiency Family History Adopted: Yes Problem Relation Name Age of Onset Arthritis Mother Tone Saenz Musculo-skeletal Disorder Mother Tone Saenz Osteoporosis Gastro-intestinal disorder Mother Tone Saenz gerd, hiatal hernia Mental Disorder Mother Tone Saenz Bipolar Lung Disorder Mother Tone Saenz Sleep apnea Heart Disorder Mother Tone Saenz Afib-non valvular Stroke Mother Tone Saenz Heart Disorder Father had Afib Heart Disorder Father Frank Saenz Atrial fibrillation n Coronary Artery Disease Other (Other) Father Frank Saenz Mitochondrial disease Thyroid Disorder Sister Dasha Dinh Hyperactive Thyroid Neurological Disorder Sister ALS Blood Disorder Sister Breast Cancer Grandmother (Maternal) Dasha Nitin Arthritis Grandmother (Maternal) Dasha Nitin Musculo-skeletal Disorder Grandmother (Maternal) Dasha Nitin Neurological Disorder Son autism Neurological Disorder Son autism Heart Disorder Ralph Núñez defects Lung Disorder Ralph Núñez born at 24 weeks gestation Musculo-skeletal Disorder Son Wilton mild Cerebral Palsy Gastro-intestinal disorder Son [place] gerd, celiac disease, food allergies Allergies Son [place] latex, Peanuts, Grass, [place] Asthma Son Wilton COPD, BPD Neurological Disorder Son Wilton Autistic, ADD with poor impulse control Allergies Son [place]. Dust, Mold n Grass Asthma Son Live Jr. childhood Neurological Disorder Son Live Jr. 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 Tobacco Use Smoking status: Never Smokeless tobacco: Never Tobacco comments: no passive smoke exposures Substance and Sexual Activity Alcohol use: No Drug use: No Sexual activity: Yes Partners: Male Other Topics Concern Service Not Asked Blood Transfusions Yes Comment: 2009 Caffeine Concern Not Asked Occupational Exposure Not Asked Hobby Hazards Not Asked Sleep Concern Not Asked Stress Concern Not Asked Weight Concern Not Asked Special Diet Yes Comment: Celiac Back Care Not Asked Exercise Not Asked Bike Helmet Not Asked Seat Belt Yes Self-Exams Not Asked Social History Narrative [employer] [facility] INFORMATION ENVIRONMENTAL HISTORY: Type of Home: Bilevel Type of Heating System: Electric and Wood Air Conditioning: Yes Bedrooms, Living room and Dining room Basement: Finished, Carpeted rooms, Dampness and No evidence mold, mildew Home have cockroaches: No Irritants in the home: None Patient's bedroom location: Floor: first Type of kay: Carpeting Beds: Number: 1 Type of beds: Waterbed Pillows: Number: 2 Type of pillows: Feather (down) Bedroom contains: Bookshelves/Books Pets: 2 cat(s) and 3 dog(s) Lives on a farm: No Disabled; Does not work outside of home. 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 Entered by: Gildardo Finch MD 04/16/2011 PULMONARY December 2010: Currently living in a house for the past 4 years. The house was built around 1968. Lives with and in laws. Pets: 2 dogs, 2 cats. Carpeting: all rooms, unsure when replaced. Basement: finished. Dehumidifier: Yes. Mold/moisture: No. Electric heat and window air conditioning. Known exposure to chemicals, dusts. No known exposure asbestos. Lived or worked on farm: No. Blood Type A positive Social Needs Financial Resource Strain: Low Risk (11/22/2023) Financial Resource Strain Do you have any trouble paying for your medications, or do you think you might in the future? (Adult - for ages 18 years and over): No Does your family have trouble paying for medicine? (Household - for ages 0-17 years): Not on file Food Insecurity: No Food Insecurity (11/22/2023) Food Insecurity Worried About Running Out of Food in the Last Year: Never true Ran Out of Food in the Last Year: Never true Do you need food for this week? (Adult - for ages 18 years and over): No Transportation Needs: No Transportation Needs (11/22/2023) Transportation Needs Do you have trouble getting a ride to medical visits or work? (Adult - for ages 18 years and over):Never True Does your family have a hard time getting a ride to doctors visits? (Household - for ages 0-17 years): Not on file Has lack of transportation kept you from medical appointments, meetings, work, or from getting things needed for daily living? Check all that apply. (Adult - for ages 18 years and over): Not on file Do you (or your family) have trouble finding or paying for a ride (transportation)? (Household - for ages 0-17 years): Not on file Social Connections: Socially Integrated (11/22/2023) Social Connections How often do you feel lonely or isolated from those around you? (Adult - for ages 18 years and over): Sometimes Housing Stability: Low Risk (11/22/2023) Housing Stability Do you currently live in a mcfp or have no steady place to sleep at night? (Adult - for ages 18 years and over): No Do you think you are at risk of becoming homeless? (Adult - for ages 18 years and over): No Does your family worry about paying for your home or becoming homeless? (Household - for ages 0-17 years): Not on file Are you homeless or worried that you might be in the future? (Adult - for ages 18 years and over): Not on file Are you (or your family) homeless or worried that you might be in the future? (Household - for ages0-17 years): Not on file Past Surgical History: Procedure Laterality Date ALLOGRAFT, MORSELIZED, FOR SPINE SURGERY N/A 04/22/2022 ALLOGRAFT FOR SPINE SURGERY MORSELIZED performed by Jaspreet Georges MD at OR [facility] ANKLE ARTHROSCOPY/DEBRIDEMENT left CATHETERIZE LEFT HEART THRU SKIN 08/28/2009 [facility], normal COLONOSCOPY 2004 COLONOSCOPY 03/26/2011 biopsies--unremarkable COLONOSCOPY, DIAGNOSTIC (RECTUM) N/A 05/12/2024 hemorrhoids/recall 3 years/COLONOSCOPY FLEXIBLE PROXIMAL DIAGNOSTIC performed by Tarah Wood DO at OR [facility] CT ABDOMEN/PELVIS 03/12/2017 extensive right sided colonic wall thickening, severe colitis. 19 mm left adrenal adenoma ECHO, COMPLETE (2D), TRANS-THORACIC 03/12/2017 borderline conc LVH, EF 60-65% LA normal EGD, FLEXIBLE, DIAGNOSTIC 05/01/2014 active inflammation in duodenum consistent with Sprue, stricture/done [place] [facility] EGD, FLEXIBLE, DIAGNOSTIC N/A 05/12/2024 diffuse gastritis/duodenal mucosal changes/biopsies celiac disease/ESOPHAGOGASTRODUODENOSCOPY (EGD), FLEXIBLE, TRANSORAL, DIAGNOSTIC performed by Tarah Wood DO at OR [facility] EGD, FLEXIBLE, W/BIOPSY 07/14/2010 biopsies--inflammation from celiac disease EGD, FLEXIBLE, W/BIOPSY 08/11/2012 persistent mild inflammation to small intestine--gluten free diet. EGD, W/ENDOSCOPIC US 08/04/2011 UPPER GI ENDOSCOPY ENDOSCOPIC ULTRASOUND performed by CAIO ANTONIO at ENDOSCOPY [facility] KNEE ARTHROSCOPY, DIAGNOSTIC LAP;EXCISION OF LESIONS [id number] ~ for endometriosis MISCELLANEOUS ORDER ([facility] ONLY) 1996 left knee arthroscopy MISCELLANEOUS ORDER ([facility] ONLY) 04/2012, 05/2012 repair first and second fingers of left hand NASAL SURGERY PROCEDURE NEC at least 4 nasal/sinus procedures last 1988 NECK SPINE FUSION (CERV, BELOW C2) N/A 04/22/2022 ARTHRODESIS SPINE POSTERIOR CERVICAL performed by Jaspreet Georges MD at OR [facility] OTHER 11/08/2015 single lumen MRI compatible a-port insertion [facility] Dr. Martinez 11/08/2015 RECONSTRUCTION OF NOSE REMOVE ADDED SPINE LAMINA, 1 SEG N/A 04/22/2022 LAMINECTOMY FACETECTOMY AND FORAMINOTOMY ADDITIONAL LEVELS performed by Jaspreet Georges MD at OR [facility] REMOVE GALLBLADDER 1995 REMOVE NECK SPINE LAMINA, 1 SEG N/A 04/22/2022 LAMINECTOMY FACETECTOMY AND FORAMINOTOMY POSTERIOR CERVICAL performed by Jaspreet Georges MD at OR [facility] REPAIR OF NASAL SEPTUM Nasal Septum Repair SLEEP STUDY, W/O CPAP 09/24/2009 sleep apnea 5-15 cm water pressure SPINE FUSION, EACH ADD'L VERTEBRA N/A 04/22/2022 ARTHRODESIS SPINE POSTERIOR EACH ADDITIONAL VERTEBRAE performed by Jaspreet Georges MD at OR [facility] SPINE SEG FIX, POST, 3-6 SEG, INSERT N/A 04/22/2022 POSTERIOR SPINE SEGMENTAL INSTRUMENTATION 3 TO 6 PSF performed by Jaspreet Georges MD at OR [facility] TENDON SHEATH INCISION, FINGER Right 12/08/2017 Dr Colon TOTAL ABD HYSTERECTOMY W/WO REMOVAL OF TUBE(S) 07/2006 [facility] BSO US EXTREMITY Left 03/12/2017 no DVT VASC DUPLEX VENOUS LE BILAT Bilateral 01/06/2023 no DVT bilateral popliteal cysts Physical Exam There were no vitals filed for this visit. Estimated body mass index is 19.89 kg/m as calculated from the following: Height as of 08/11/24: 1.626 m (5' 4.02"). Weight as of 08/11/24: 52.6 kg (115 lb 15.4 oz). General: generally well-nourished and in no acute distress HEENT: normocephalic, atraumatic, sclera anicteric. Psych: mood and affect normal , cooperative Heart and lungs okay Skin: no rash, normal, capillary refill less than 2 seconds Neuro: Coordination: normal; Sensation: normal on affected extremity (s) MSK: Hand Exam, Bilateral Splint was removed at this time. Patient is mildly tender to palpation along the head of the right 5th metacarpal and volar aspect of the pinky. No erythema, edema or ecchymosis. Improving range of motion compared to last visit. Radiology: I have personally reviewed the hand films. Per my interpretation, there is no evidence of associated or incidental soft tissue damage. The phalanxes appear intact without bony fragments. The digits appear to be in proper alignment when assessed from the metacarpal to the distal phalanx. The joint spaces are visualized without narrowing. There is notable callous formation of the fifth metacarpal head fracture. Awaiting formal radiology interpretation. Assessment and Plan: 1) Right fifth metacarpal fracture, Left carpal tunnel syndrome, Trapeziometacarpal arthritis, Ganglion cyst Patient is informed that the splint can be discontinued at this time. She is advised to continue working on her range of motion exercises and ease back into activities as tolerated. Patient is giventhe option of follow up in 4 weeks as she initially was being seen for left carpal tunnel syndrome,trapeziometacarpal arthritis and ganglion cyst to which she is agreeable. She is advised to contact the office in the meantime with any new or worsening symptoms as well as any questions or concerns to which she is agreeable. Patient follow up in 4 weeks for her left carpal tunnel syndrome, trapeziometacarpal arthritis and ganglion cyst. 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 documented in this encounter Plan of Treatment Upcoming Encounters Date Type Department Care Team (Late st Contact Info) Description 08/25/2024 2:00 PM EST Nutrition Services [facility] [address] [place] [address] Jayshree Rawls, BOONE [address] [place] [address] 09/08/2024 2:00 PM EST Nurse Only Hematology/Oncology Treatment, [address] [place] [address] Tasha, Chair [address] [address] 09/15/2024 2:00 PM EDT Office Visit Hematology/Oncology [address] [place] [address] Olivia Sawyer CRNP [address] [place] [address] 09/18/2024 1:30 PM EDT Office Visit Orthopaedics [facility] [address] [place] [phone] Damaris Ardon PA-C [address] [place] [phone] 09/28/2024 1:00 PM EDT Office Visit Endocrinology [address] [place] [phone] Vickie Martines MD [address] [place] [address] 10/16/2024 11:00 AM EDT Office Visit Cardiology, [facility] [address] [place] [address] Silverio Aguirre DO [address] [place] [address] 12/25/2024 12:20 PM EDT Office Visit Family Medicine [address] [place] [phone] Joann You PA-C [address] [place] [address] [place] [id number] Scheduled Procedures Name Priority Associated Diagnoses Date/Ti [...] this encounter Medical Devices Implanted Type Area Energy Advisor Device Identifier Shelf Expiration Date Model / Serial / Lot Dbx 5cc [id number] - [id number] Implanted:Qt y: 1 on 04/22/2022 by Jaspreet Georges MD at OR [facility] Tissue - Human MUSCULOSKELETAL TRANSPLANT FND [id number] 11/22/2023 [id number] / [id number] 19 / LOT NA Vitoss Bimodal Foam Pack 2.5cc - [id number] Implanted:Qt y: 1 on 04/22/2022 by Jaspreet Georges MD at OR [facility] ANATOLIY : SPINE [id number] 04/01/20232101- 190 2 / [id number] / [id number] Vitoss Bimodal Foam Pack 2.5cc - [id number] Implanted:Qt y: 1 on 04/22/2022 by Jaspreet Georges MD at OR [facility] ANATOLIY : SPINE [id number] 09/01/20232101- 190 2 / [id number] / [id number] [place] Screw Set Implanted:Qt y: 10 on 04/22/2022 by Jaspreet Georges MD at OR [facility] N/A: Spine Cervical 7601-100 01 / / [place] 3.5 X 12mm Screw Implanted:Qt y: 4 on 04/22/2022 by Jaspreet Georges MD at OR [facility] N/A: Spine Cervical 7601-035 12 / / [place] 3.5 X 10mm Screw Implanted:Qt y: 3 on 04/22/2022 by Jaspreet Georges MD at OR [facility] N/A: Spine Cervical 7601-035 10 / / [place] 4.0 X 10mm Screw Implanted:Qt y: 1 on 04/22/2022 by Jaspreet Georges MD at OR [facility] N/A: Spine Cervical 7601-040 10 / / [place] 4.5 X 22mm Screw Implanted:Qt y: 2 on 04/22/2022 by Jaspreet Georges MD at OR [facility] N/A: Spine Cervical [id number] 22 / / [place] 3.5 X 75mm [place] Implanted:Qt y: 2 on 04/22/2022 by Jaspreet Georges MD at OR [facility] N/A: Spine Cervical 7601-635 75 / / documented as of this encounter Procedures Procedure Name Priority Date/Time Associated Diagnosis Comments XR HAND 3 OR MORE VIEWS Routine 08/21/2024 2:38 PM EST Displaced fracture of neck of fifth metacarpal bone, right hand, initial encounter for closed fracture documented in this encounter Results * XR HAND 3 OR MORE VIEWS (08/21/2024 2:38 PM EST) Anatomical Region Laterality Modality Upper Extremity, Hand Computed R adiography 08/22/2024 9:31 AM EST Impressions 08/22/2024 9:28 AM EST IMPRESSION Healing fracture of 5th metacarpal head/neck in unchanged alignment. Narrative 08/22/2024 9:28 AM EST EXAM XR HAND 3 OR MORE VIEWS-08/21/2024 2:38 pm HISTORY fracture TECHNIQUE Three views of right hand COMPARISON 08/11/2024 FINDINGS Redemonstration of a fracture of the right 5th metacarpal head/neck with at least mild volar angulation, healing in unchanged alignment. Moderate DIP and mild basal/triscaphe arthrosis. Probable osteopenia. Procedure Note Claudio Warren MD - 08/22/2024 EXAM XR HAND 3 OR MORE VIEWS-08/21/2024 2:38 pm HISTORY fracture TECHNIQUE Three views of right hand COMPARISON 08/11/2024 FINDINGS Redemonstration of a fracture of the right 5th metacarpal head/neck withat least mild volar angulation, healing in unchanged alignment. Moderate DIP and mild basal/triscaphe arthrosis. Probable osteopenia. IMPRESSION IMPRESSION Healing fracture of 5th metacarpal head/neck in unchanged alignment. us Damaris Ardon PA-C RADIOLOGY (RAD GENERAL) Fin al Result documented in this encounter Visit Diagnoses Diagnosis Displaced fracture of neck of fifth metacarpal bone, right hand, initial encounter for closed fracture- Primary documented in this encounter Advance Directives [...] Advance Directives occurred with: Patient Care Teams Supervisor Litharge Relationship Specialty Start Date End Date Vicki Cadet MD [address] [place] [address] [place] [id number] PCP - General Family Medicine 02/01/24 documented as of this encounter
--- OUTSIDE RECORDS SUMMARY | 2024-09-15 05:17 | External Medical Summary | Summary of Care ---
Author Name Unknown Organization [facility] Address [address] [facility] [place] [address] Phone [phone] Care Team Providers Care Tool Planer Set Up Operator Name Role Phone Vicki Cadet MD Primary Care Prov ider Reason for Visit * Reason Onset Date Comments Appointment 08/21/2024 Encounter Details Date Type Department Care Team (Late st Contact Info) Description 08/21/2024 Telephone Orthopaedics [facility] [address] [place] [address] Damaris Ardon PA-C [address] [place] [address] Appointment Allergies Active Allergy Reactions Criticality Noted Date [...] as of this encounter (statuses as of 08/21/2024) Medications MULTIVITAMINS PO TABS 1 TABLET DAILY [...] % nasal sprayIndications:All ergic rhinitis Administer 1 [place] into nostril 2 times a day. 3 [...] 24 Active Vitamin D (Ergocalciferol) 1.25 MG (67741 UT) Oral Capsule (Drisdol)Indications :Vitamin D deficiency [...] as of this encounter (statuses as of 08/21/2024) Active Problems Problem Noted Date Diagnosed Date [...] was added at 2L on discharge from [facility] 04/26/10 Noct ox CPAP/RA -- <89% 5:12 [...] (9-67) 12/30/99 - Left lingular biopsy at [facility] s/t frequent URI and nodularity at lingula [...] as of this encounter (statuses as of 08/21/2024) Resolved Problems Problem Noted Date Diagnosed Date [...] muscle 12/29/2010 05/19/2016 Feces contents abnormal 12/17/2010 0601/2016 COPD, severity [...] as of this encounter (statuses as of 08/21/2024) Immunizations Name Administration Dates Next Due Pneumococcal [...] file Not on file Not on file 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 Patient needs to see if she's able to adjust her schedule and will be calling back to let usknow if she's able to come in early or not. documented in this encounter Plan of Treatment Upcoming Encounters Date Type Department Care Team (Late st Contact Info) Description 08/25/2024 2:00 PM EST Nutrition Services Nutrition, [facility] [address] [place] [address] Jayshree Rawls RDN [address] [place] [address] 09/08/2024 2:00 PM EST Nurse Only Hematology/Oncology Treatment, [place] [address] [facility], [place] [address] Tasha, Chair 11 Hem Onc [facility] [place] [address] 09/15/2024 2:00 PM EDT Office Visit Hematology/Oncology [facility] [place] [phone] Olivia Sawyer CRNP [address] [place] [address] [place] [address] 09/18/2024 1:30 PM EDT Office Visit Orthopaedics [facility] [address] [place] [phone] Damaris Ardon PA-C [address] [place] [phone] 09/28/2024 1:00 PM EDT Office Visit Endocrinology [address] [place] [address] Vickie Martines MD [address] [place] [address] [address] 10/16/2024 11:00 AM EDT Office Visit Cardiology, [facility] [address] [place] [address] Silverio Aguirre ODO [address] [place] [address] 12/25/2024 12:20 PM EDT Office Visit Family [address] [phone] Joann Lyons PA-C [address] [place] [address] [place] [address] Scheduled Procedures Name Priority Associated Diagnoses Date/Ti [...] this encounter Medical Devices Implanted Type Area Nursery School Attendant Device Identifier Shelf Expiration Date Model / Serial / Lot Dbx 5cc [id number] - [id number] Implanted:Qt y: 1 on 04/22/2022 by Jaspreet Georges MD at OR [facility] Tissue - Human MUSCULOSKELETAL TRANSPLANT FND [id number] 11/22/2023 [id number] / [id number] 19 / LOT NA Vitoss Bimodal Foam Pack 2.5cc - [id number] Implanted:Qt y: 1 on 04/22/2022 by Jaspreet Georges MD at OR [facility] ANATOLIY : SPINE [id number] 04/01/2023 210- 190 2 / [id number] / [id number] Vitoss Bimodal Foam Pack 2.5cc - [id number] Implanted:Qt y: 1 on 04/22/2022 by Jaspreet Georges MD at OR [facility] ANATOLIY : SPINE [id number] 09/01/20232101- 190 2 / [id number] / [id number] [place] Screw Set Implanted:Qt y: 10 on 04/22/2022 by Jaspreet Georges MD at OR [facility] N/A: Spine Cervical 7601-100 01 / / [place] 3.5 X 12mm Screw Implanted:Qt y: 4 on 04/22/2022 by Jaspreet Georges MD at OR [facility] N/A: Spine Cervical 7601-035 12 / / [place] 3.5 X 10mm Screw Implanted:Qt y: 3 on 04/22/2022 by Jaspreet Georges MD at OR [facility] N/A: Spine Cervical 7601-035 10 / / [place] 4.0 X 10mm Screw Implanted:Qt y: 1 on 04/22/2022 by Jaspreet Georges MD at OR [facility] N/A: Spine Cervical 7601-040 10 / / [place] 4.5 X 22mm Screw Implanted:Qt y: 2 on 04/22/2022 by Jaspreet Georges MD at OR [facility] N/A: Spine Cervical 7601-045 22 / / [place] 3.5 X 75mm [place] Implanted:Qt y: 2 on 04/22/2022 by Jaspreet Georges MD at OR [facility] N/A: Spine Cervical 0045-752 75 / / documented as of this [...] Advance Directives occurred with: Patient Care Teams Tool Planer Set Up Operator Relationship Specialty Start Date End Date Vicki Cadet MD [address] [place] [address] [place] [phone] PCP - General Family Medicine 02/01/24 documented as of this encounter
--- OUTSIDE RECORDS SUMMARY | 2024-09-15 05:17 | External Medical Summary | Summary of Care ---
Author Name Unknown Organization [facility] Address [address] [facility] [place] [address] Phone [phone] Care Team Providers Care Editing Clerk Name Role Phone Vicki Cadet MD Primary Care Prov ider Reason for Visit * Reason Comments Follow Up Right 5th metacarpal fracture Encounter Details Date Type Department Care Team (Late st Contact Info) Description 08/11/2024 10:30 AM EST Office Visit Orthopaedics [facility] [address] [place] [phone] Damaris Ardon PA-C [address] [place] [...] as of this encounter (statuses as of 08/11/2024) Medications MULTIVITAMINS PO TABS 1 TABLET DAILY [...] % nasal sprayIndications:All ergic rhinitis Administer 1 [place] into nostril 2 times a day. 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 Not on file 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 Not on file Not on file [employer] Not on file Not on file Not on file documented as of this encounter Last Filed Vital Signs Vital Sign Reading Time Taken Comments Blood Pressure - - Pulse - - Temperature - - Respiratory Rate - - Oxygen Saturation - - Inhaled Oxygen Concentration - - Weight 52.6 kg (115 lb 15.4 oz) 025 10:34 AM EST Height 162.6 cm (5' 4.02") 08/11/2024 1 0:34 AM EST Body Mass Index 19.89 08/11/2024 10:34 AM EST documented in this encounter Functional Status * [...] Progress Notes * Izaiah Rdz MD - 08/11/2024 12:10 PM EST I have reviewed the advanced practitioner's documentation on the date of service referenced in note, and I agree with, and take responsibility for the plan of care. * Damaris Ardon PA-C - 08/11/2024 10:40 AM EST Lucinda Hackett is a 64 year old female who presents for follow up regarding right 5th metacarpal fracture s/p fall on ice on 07/23/2024. Lucinda Hackett is here unaccompanied. History: Chief Complaint Patient presents with Follow Up Right 5th metacarpal fracture Nursing Notes: Lili Smith, FRANCOISE 08/11/24 1036 Signed Chief Complaint Patient presents with Follow Up Right 5th metacarpal fracture DOI 07/25/24 Xray 08/04/24 Patient was last seen on 08/04/2024 where she reported improving pain. There was minimal displacement of her fracture which was reviewed with Dr. Rdz who felt that this was acceptable. Patient was advised to follow up in 1 week with new x-rays. Patient is just under 3 weeks out from injury. She reports that she is doing well. She reports thather pain has decreased and is now a 6/10, predominantly at night. She reports that her numbness andtingling has resolved. Review of systems: All others negative except those noted above in HPI. 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 Celiac disease Celiac disease 05/01/2014 EGD marked changes in duodenum Cervical stenosis of spine 04/23/2020 severe at C5-6 and C6-7 Chronic pancreatitis (HCC) Colitis due to Escherichia coli 03/12/2017 COPD with emphysema (HCC) COVID 08/04/2021 admitted [facility] treated [...] Disorder Sister Breast Cancer Grandmother (Maternal) Dasha Taveras Arthritis Grandmother (Maternal) Dasha Nitin Musculo-skeletal Disorder Grandmother (Maternal) Dasha Nitin Neurological Disorder Son autism Neurological Disorder Son autism Heart Disorder Son [place] defects Lung Disorder Ralph Núñez born at 24 weeks gestation Musculo-skeletal Disorder Son [place] mild Cerebral Palsy Gastro-intestinal disorder Son [place] gerd, celiac disease, food allergies Allergies Son [place] latex, Peanuts, Grass, [place] Asthma Son [place] COPD, BPD Neurological Disorder Son [place]ton Autistic, ADD with poor impulse control Allergies Son Live . Dust, Mold n Grass Asthma Son Live Jr. childhood Neurological Disorder Son Live Jr. 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 Entered by: Gildardo Finch MD 04/16/2011 PULMONARY [...] Stability Do you currently live in a long term or have no steady place to sleep [...] performed by Jaspreet Georges MD at [facility] ANKLE ARTHROSCOPY/DEBRIDEMENT left CATHETERIZE LEFT HEART THRU SKIN 08/28/2009 [facility], normal COLONOSCOPY 2004 COLONOSCOPY 03/26/2011 biopsies--unremarkable COLONOSCOPY, DIAGNOSTIC (RECTUM) N/A 05/12/2024 hemorrhoids/recall 3 years/COLONOSCOPY FLEXIBLE PROXIMAL DIAGNOSTIC performed by Tarah [place] DO at [facility] CT ABDOMEN/PELVIS 03/12/2017 extensive right sided colonic wall thickening, severe colitis. 19 mm left adrenal adenoma ECHO, COMPLETE (2D), TRANS-THORACIC 03/12/2017 borderline conc LVH, EF 60-65% LA normal EGD, FLEXIBLE, DIAGNOSTIC 05/01/2014 active inflammation in duodenum consistent with Sprue, stricture[place] [facility] [place], FLEXIBLE, DIAGNOSTIC N/A 05/12/2024 diffuse gastritis/duodenal mucosal changes/biopsies celiac disease/ESOPHAGOGASTRODUODENOSCOPY (EGD), FLEXIBLE, TRANSORAL, DIAGNOSTIC performed by Tarah Wood DO at [facility] EGD, FLEXIBLE, W/BIOPSY 07/14/2010 biopsies--inflammation from celiac disease EGD, FLEXIBLE, W/BIOPSY 08/11/2012 persistent mild inflammation to small intestine--gluten free diet. EGD, W/ENDOSCOPIC US 08/04/2011 UPPER GI ENDOSCOPY ENDOSCOPIC ULTRASOUND [place] CAIO ANTONIO [place] [facility] [place] ARTHROSCOPY, DIAGNOSTIC LAP;EXCISION OF LESIONS 5540-2017 ~6 for endometriosis MISCELLANEOUS ORDER ([facility] ONLY) 1996 left knee arthroscopy MISCELLANEOUS ORDER ([facility] ONLY) 04/2012, 05/2012 repair first and second fingers of left hand NASAL SURGERY PROCEDURE NEC at least 4 nasal/sinus procedures last 1988 NECK SPINE FUSION (CERV, BELOW C2) N/A 04/22/2022 ARTHRODESIS SPINE POSTERIOR CERVICAL performed by Jaspreet Georges MD at [facility] OTHER 11/08/2015 single lumen MRI compatible a-port insertion [facility] Dr. Martinez 11/08/2015 RECONSTRUCTION OF NOSE REMOVE ADDED SPINE LAMINA, 1 SEG N/A 04/22/2022 LAMINECTOMY FACETECTOMY AND FORAMINOTOMY ADDITIONAL LEVELS performed by Jaspreet Georges MD at [facility] REMOVE GALLBLADDER 1995 REMOVE NECK SPINE [place], 1 SEG N/A 04/22/2022 LAMINECTOMY FACETECTOMY AND FORAMINOTOMY POSTERIOR CERVICAL performed by Jaspreet Georges MD at [facility] REPAIR OF NASAL SEPTUM Nasal Septum Repair SLEEP STUDY, W/O CPAP 09/24/2009 sleep apnea 5-15 cm water pressure SPINE FUSION, EACH ADD'L VERTEBRA N/A 04/22/2022 ARTHRODESIS SPINE POSTERIOR EACH ADDITIONAL VERTEBRAE performed by Jaspreet Georges MD at [facility] SPINE SEG FIX, POST, 3-6 SEG, INSERT N/A 04/22/2022 POSTERIOR SPINE SEGMENTAL INSTRUMENTATION 3 TO 6 PSF performed by Jaspreet Georges MD at [facility] TENDON SHEATH INCISION, FINGER Right 12/08/2017 Dr Colon TOTAL ABD HYSTERECTOMY W/WO REMOVAL OF TUBE(S) 07/2006 [facility] BSO US EXTREMITY Left 03/12/2017 no DVT VASC DUPLEX VENOUS LE BILAT Bilateral 01/06/2023 no DVT bilateral popliteal cysts Physical Exam Filed Vitals: 08/11/24 1034 Weight: 52.6 kg (115 lb 15.4 oz) Height: 1.626 m (5' 4.02") Estimated body mass index is 19.89 kg/m as calculated from the following: Height as of this encounter: 1.626 m (5' 4.02"). Weight as of this encounter: 52.6 kg (115 lb 15.4 oz). General: generally well-nourished and in no acute distress HEENT: normocephalic, atraumatic, sclera anicteric. Psych: mood and affect normal , cooperative Heart and lungs okay Skin: no rash, normal, capillary refill less than 2 seconds Neuro: Coordination: normal; Sensation: normal on affected extremity (s) MSK: Hand Exam, Bilateral Inspection: No apparent abnormality appreciated bilateral Palpation: Patient is tender to palpation over the distal right 5th metacarpal. Range of Motion: Range of motion: Patient continues to struggle with flexion of the right pinky finger. She is able to slightly flex and extend. Strength: Deferred Radiology: I have personally reviewed the hand films. Per my interpretation, there is no evidence of associated or incidental soft tissue damage. There appears to be callus formation of the right 5thmetacarpal head fracture. Awaiting formal radiology interpretation. Assessment and Plan: 1) Right 5th metacarpal fracture Patient is informed that her fracture appears to be healing as there is callus formation. After discussion with Dr. Rdz, it was decided that patient should come out of the splint chief librarian music department to workon [id number] exercises to which she is agreeable. Patient is given the option of follow up in1 week with repeat x-rays out of the splint to which she is agreeable. Patient is advised to contact the office in the meantime with any new or worsening symptoms as well as any questions or concernsto which she is agreeable. Patient to follow up in 1 week with new x-rays out of the splint. Damaris Ardon PA-C [facility] [address] [place] [address] documented in this encounter Nursing Notes * Lili Smith CMA - 08/11/2024 10:35 AM EST Chief Complaint Patient presents with Follow Up Right 5th metacarpal fracture DOI 07/25/24 Xray 08/04/24 documented in this encounter Plan of Treatment Upcoming Encounters Date Type Department Care Team (Late st Contact Info) Description 08/21/2024 3:30 PM EST Office Visit Orthopaedics [facility] [address] [place] [phone] Damaris Ardon PA-C [address] [place] [phone] 08/25/2024 2:00 PM EST Nutrition Services Nutrition, [facility] [address] [place] [address] Jayshree Rawls, BOONE [address] [place] [address] 09/08/2024 2:00 PM EST Nurse Only [facility]ematology[facility] [place] [facility] [address] Tasha, Chair 11 Hem Onc [address] [address] 09/15/2024 2:00 PM EDT Office [facility]ology[facility] [phone] Olivia Sawyer CRNP [address] [place] [address] [place] [phone] 09/28/2024 1:00 PM EDT Office Visit Endocrinology [address] [place] [phone] Vickie Martines MD [address] [place] [address] 10/16/2024 11:00 AM EDT Office Visit Cardiology, [facility] [address] [place] [address] Silverio Aguirre, [address] [place] [address] 12/25/2024 12:20 PM EDT Office Visit Family Medicine [address] [place] [phone] Joann You PA-C [address] [place] [address] [place] [address] Pending Results Name Type Priority Associated Diagnoses Date /Time XR HAND 3 OR MORE VIEWS Medical Imaging Routine Displaced fracture of neck of fifth metacarpal bone, right hand, initial encounter for closed fracture 08/11/2024 11:03 AM EST Scheduled Procedures Name Priority Associated Diagnoses Date/Ti md COLONOSCOPY FLEXIBLE PROXIMA L DIAGNOSTIC Recall Screening [...] this encounter Medical Devices Implanted Type Area Tag Maker Device Identifier Shelf Expiration Date Model / Serial / Lot Dbx 5cc [id number] - [id number] Implanted:Qt y: 1 on 04/22/2022 by Jaspreet Georges MD at [facility] Tissue - Human MUSCULOSKELETAL TRANSPLANT FND [id number] 11/22/2023 [id number] / [id number] 19 / LOT NA Vitoss Bimodal Foam Pack 2.5cc - [id number] Implanted:Qt y: 1 on 04/22/2022 by Jaspreet Georges MD at [facility] ANATOLIY : SPINE [id number] 04/01/2023 2102- 190 2 / [id number] / [id number] Vitoss Bimodal Foam Pack 2.5cc - [id number] Implanted:Qt y: 1 on 04/22/2022 by Jaspreet Georges MD at OR [facility] ANATOLIY : SPINE [id number] 09/01/2023 2102- 190 2 / [id number] / [id number] [place] Screw Set Implanted:Qt y: 10 on 04/22/2022 by Jaspreet Georges MD at [facility] N/A: Spine Cervical 7601-100 [place] 3.5 X 12mm Screw Implanted:Qt y: 4 on 04/22/2022 by Jaspreet Georges MD at [facility] N/A: Spine Cervical 7601-035 12 / / [place] 3.5 X 10mm Screw Implanted:Qt y: 3 on 04/22/2022 by Jaspreet Georges MD at [facility] N/A: Spine Cervical 7601-035 10 / / [place] 4.0 X 10mm Screw Implanted:Qt y: 1 on 04/22/2022 by Jaspreet Georges MD at [facility] N/A: Spine Cervical 7601-040 10 / / [place] 4.5 X 22mm Screw Implanted:Qt y: 2 on 04/22/2022 by Jaspreet Georges MD at OR [facility] N/A: Spine Cervical 7601-045 22 / / [place] 3.5 X 75mm [place] Implanted:Qt y: 2 on 04/22/2022 by Jaspreet Georges MD at [facility] N/A: Spine Cervical 7601-635 75 / / documented as of this encounter Visit Diagnoses Diagnosis Displaced fracture [...] Advance Directives occurred with: Patient Care Teams Editing Clerk Relationship Specialty Start Date End Date Vicki Cadet MD [address] [place] [address] [place] [phone] PCP - General Family Medicine 02/01/24 documented as of this encounter
--- OUTSIDE RECORDS SUMMARY | 2024-09-15 05:17 | External Medical Summary | Summary of Care ---
Author Name Unknown Organization [facility] Address [address] [place] [address] Phone [phone] Care Team Providers Care Lens Assistant Name Role Phone Vicki Cadet MD Primary Care Prov ider Reason for Visit * Reason Comments Follow Up R 5th metacarpal fra ctureDOI- 07/25/24 Encounter Details Date Type Department Care Team (Late st Contact Info) Description 08/21/2024 2:00 PM EST Office Visit Orthopaedics [facility] [address] [place] [phone] Damaris Ardon PA-C [address] [place] [...] as of this encounter (statuses as of 08/22/2024) Medications MULTIVITAMINS PO TABS 1 TABLET DAILY [...] % nasal sprayIndications:All ergic rhinitis Administer 1 [place] into nostril 2 times a day. 3 [...] 24 Active Vitamin D (Ergocalciferol) 1.25 MG (01463 UT) Oral Capsule (Drisdol)Indications :Vitamin D deficiency [...] as of this encounter (statuses as of 08/22/2024) Active Problems Problem Noted Date Diagnosed Date [...] was added at 2L on discharge from [facility] 04/26/10 Noct ox CPAP/RA -- [...] (9-67) 12/30/99 - Left lingular biopsy at [facility] s/t frequent URI and nodularity at [...] as of this encounter (statuses as of 08/22/2024) Resolved Problems Problem Noted Date Diagnosed Date [...] as of this encounter (statuses as of 08/22/2024) Immunizations Name Administration Dates Next Due Pneumococcal [...] file Not on file 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 Lucinda Hackett is here unaccompanied. 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 Patient was last seen on 08/11/2024 where she was doing well. Patient was advised to come into the splint part-time to work on ooorv-yv-ekwhyp exercises and follow up in 1 week. Patient reports that she is doing well and that she has been coming out of the splint part-time to work on exnxo-my-ossfqr exercises. She reports having minimal pain and instead reports a tightness when trying to use the hand. She denies any numbness or tingling. Review of systems: All others negative except those noted above in HPI. 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 Celiac disease Celiac disease 05/01/2014 EGD marked changes in duodenum Cervical stenosis of spine 04/23/2020 severe at C5-6 and C6-7 Chronic pancreatitis ([facility]) Colitis due to Escherichia coli 03/12/2017 COPD with emphysema ([facility]) COVID 08/04/2021 admitted [facility] treated with dexamethasone COVID-19 05/05/2022 nasal swab in office Encounter for hepatitis C screening test for low risk patient 08/14/2021 negative Epistaxis 08/16/2017 [facility] ER Hospital acquired methicillin resistant Staphylococcus aureus infection 2000 Hypokalemia Hypothyroidism Intestinal disaccharidase deficiency Iron deficiency anemia Migraine Mitral valve prolapse Motion sickness Obstructive sleep apnea syndrome Paroxysmal tachycardia ([facility]) Pneumonia due to COVID-19 virus 08/04/2021 Dexamethasone but not remdesivir, due to timing. [facility] Postoperative anemia due to acute blood loss 04/24/2022 Reflux esophagitis Restless legs syndrome Stage 3a chronic kidney disease ([facility]) 06/18/2021 EGFR 50 Statin intolerance Vitamin D [...] Dasha Nitin Musculo-skeletal Disorder Grandmother (Maternal) Dasha Ulrichonurtrenton Neurological Disorder Son autism Neurological Disorder Son autism Heart Disorder Ralph Núñez defects Lung Disorder Ralph Núñez born at 24 weeks gestation Musculo-skeletal Disorder Son [place] mild Cerebral Palsy Gastro-intestinal disorder Son [place] gerd, celiac disease, food allergies Allergies Son [place] latex, Peanuts, Grass, [place] Asthma Son [place] COPD, BPD Neurological Disorder Son [place] Autistic, ADD with poor impulse control Allergies Son [place]. Dust, Mold n Grass Asthma Son [place]. childhood Neurological Disorder Son [place]. 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 Entered by: Gildardo Finch MD 04/16/2011 PULMONARY [...] Stability Do you currently live in a halfway or have no steady place to sleep [...] performed by Jaspreet Georges MD at OR [facility] ANKLE ARTHROSCOPY/DEBRIDEMENT left CATHETERIZE LEFT HEART THRU SKIN 08/28/2009 [facility], normal COLONOSCOPY 2004 COLONOSCOPY 03/26/2011 biopsies--unremarkable COLONOSCOPY, DIAGNOSTIC (RECTUM) N/A 05/12/2024 hemorrhoids/recall 3 years/COLONOSCOPY FLEXIBLE PROXIMAL DIAGNOSTIC performed by Tarah Wood DO at OR [facility] CT ABDOMEN/PELVIS 03/12/2017 extensive right sided colonic wall thickening, severe colitis. 19 mm left adrenal adenoma ECHO, COMPLETE (2D), TRANS-THORACIC 03/12/2017 borderline conc LVH, EF 60-65% LA normal EGD, FLEXIBLE, DIAGNOSTIC 05/01/2014 active inflammation in duodenum consistent with [place], [place] [facility], FLEXIBLE, DIAGNOSTIC N/A 05/12/2024 diffuse gastritis/duodenal mucosal changes/biopsies celiac disease/ESOPHAGOGASTRODUODENOSCOPY (EGD), FLEXIBLE, TRANSORAL, DIAGNOSTIC performed by Tarah Wood DO at OR [facility] EGD, FLEXIBLE, W/BIOPSY 07/14/2010 biopsies--inflammation from celiac disease EGD, FLEXIBLE, W/BIOPSY 08/11/2012 persistent mild inflammation to small intestine--gluten free diet. EGD, W/ENDOSCOPIC US 08/04/2011 UPPER GI ENDOSCOPY ENDOSCOPIC ULTRASOUND performed by CAIO ANTONIO [place] [facility] KNEE ARTHROSCOPY, DIAGNOSTIC LAP;EXCISION OF LESIONS [phone] ~6 for endometriosis MISCELLANEOUS ORDER ([facility] ONLY) 1996 left knee arthroscopy MISCELLANEOUS ORDER ([facility] ONLY) 04/2012, 05/2012 repair first and second fingers of left hand NASAL SURGERY PROCEDURE NEC at least 4 nasal/sinus procedures last 1988 NECK SPINE FUSION (CERV, BELOW C2) N/A 04/22/2022 ARTHRODESIS SPINE POSTERIOR CERVICAL performed by Jaspreet Georges MD at OR [facility] OTHER 11/08/2015 single lumen MRI compatible a-port insertion [facility] Dr. Martinez 11/08/2015 RECONSTRUCTION OF NOSE REMOVE ADDED SPINE LAMINA, 1 SEG N/A 04/22/2022 LAMINECTOMY FACETECTOMY AND FORAMINOTOMY ADDITIONAL LEVELS performed by Jaspreet Georges MD at OR [facility] REMOVE GALLBLADDER 1996 REMOVE NECK SPINE LAMINA, 1 SEG N/A 04/22/2022 LAMINECTOMY FACETECTOMY AND FORAMINOTOMY POSTERIOR CERVICAL performed by Jaspreet Georges MD at OR [facility] REPAIR OF NASAL SEPTUM Nasal Septum Repair SLEEP STUDY, W/O CPAP 09/24/2009 sleep apnea 5-15 cm water pressure SPINE FUSION, EACH ADD'L VERTEBRA N/A 04/22/2022 ARTHRODESIS SPINE POSTERIOR EACH ADDITIONAL VERTEBRAE performed by Jaspreet Georges MD at OR [facility] SPINE SEG FIX, POST, 3-6 SEG, INSERT N/A 04/22/2022 POSTERIOR SPINE SEGMENTAL INSTRUMENTATION 3 TO 6 PSF performed by Jaspreet Georges MD at OR [facility] TENDON SHEATH INCISION, FINGER Right 12/08/2017 Dr Colon TOTAL ABD HYSTERECTOMY W/WO REMOVAL OF TUBE(S) 07/2006 [facility] BSO US EXTREMITY Left 03/12/2017 no DVT [...] back into activities as tolerated. Patient is given the option of follow up in 4 weeks as she initially was being seen for left carpal tunnel syndrome, trapeziometacarpal arthritis and ganglion cyst to which she is agreeable. She is advised to contact the office in the meantime with any new or worsening symptoms as well as any questions or concerns to which she is agreeable. Patient follow up in 4 weeks for her left carpal tunnel syndrome, trapeziometacarpal arthritis and ganglion cyst. 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 documented in this encounter Plan of Treatment Upcoming Encounters Date Type Department Care Team (Late st Contact Info) Description 08/25/2024 2:00 PM EST Nutrition Services Nutrition, [facility] [address] [facility] [place] [address] Jayshree Rawls, RDN [address] [place] [address] 09/08/2024 2:00 PM EST Nurse Only Hematology/Oncology Treatment, [place] [address] [place] [phone] Tasha, Chair [address] [facility] [address] [facility] [phone] 09/15/2024 2:00 PM EDT Office Visit Hematology/Oncology [facility] [address] [facility] [address] [address] [facility] [phone] Olivia Sawyer CRNP [address] [place] [address] [place] [address] 09/18/2024 1:30 PM EDT Office Visit Orthopaedics [facility] [address] [place] [phone] Damaris Ardon PA-C [address] [facility] [place] [phone] 09/28/2024 1:00 PM EDT Office Visit Endocrinology [address] [place] [phone] Vickie Martines MD [address] [place] [address] [address] 10/16/2024 11:00 AM EDT Office Visit [facility]iology, [facility] [place] [phone] Silverio Aguirre O, DO [address] [place] [address] 12/25/2024 12:20 PM EDT Office Visit Family Medicine [address] [place] [phone] Joann You PA-C [address] [place] [address] [place] [phone] Pending Results Name Type Priority Associated Diagnoses Date /Time XR HAND 3 OR MORE VIEWS Medical Imaging Routine Displaced fracture of neck of fifth metacarpal bone, right hand, initial encounter for closed fracture 08/21/2024 2:38 PM EST Scheduled Procedures Name Priority Associated [...] Tdap) 12/21/2026 12/21/2016, 01/02/2005 Colonoscopy 05/12/2027 05/12/2024, 11/0 02/2024, 03/26/2011, Additional history exists Colorectal Cancer [...] this encounter Medical Devices Implanted Type Area Digital Sales Assistant Device Identifier Shelf Expiration Date Model / Serial / Lot Dbx 5cc [id number] - [id number] Implanted:Qt y: 1 on 04/22/2022 by Jaspreet Georges MD at OR [facility] Tissue - Human MUSCULOSKELETAL TRANSPLANT FND [id number] 11/22/2023 [id number] / [id number] / LOT NA Vitoss Bimodal Foam Pack 2.5cc - [id number] Implanted:Qt y: 1 on 04/22/2022 by Jaspreet Georges MD at OR [facility] ANATOLIY : SPINE [id number] 04/01/2023 2102- 190 2 / [id number] / [id number] [employer] Bimodal Foam Pack 2.5cc - [id number] Implanted:Qt y: 1 on 04/22/2022 by Jaspreet Georges MD at OR [facility] ANATOLIY : SPINE [id number] 09/01/2023 2102- 190 2 / [id number] / [id number] [place] Screw Set Implanted:Qt y: 10 on 04/22/2022 by Jaspreet Georges MD at OR [facility] N/A: Spine Cervical 7601-100 01 / / [place] 3.5 X 12mm Screw Implanted:Qt y: 4 on 04/22/2022 by Jaspreet Georges MD at OR [facility] N/A: Spine Cervical 7601-035 12 / / [place] 3.5 X 10mm Screw Implanted:Qt y: 3 on 04/22/2022 by Jaspreet Georges MD at OR [facility] N/A: Spine Cervical 7601-035 10 / / [place] 4.0 X 10mm Screw Implanted:Qt y: 1 on 04/22/2022 by Jaspreet Georges MD at OR [facility] N/A: Spine Cervical 7601-040 10 / / [place] [place] 4.5 X 22mm Screw Implanted:Qt y: 2 on 04/22/2022 by Jaspreet Georges MD at OR [facility] N/A: Spine Cervical 7601-045 22 / / [place] 3.5 X 75mm [place] Implanted:Qt y: 2 on 04/22/2022 by Jaspreet Georges MD at OR [facility] N/A: Spine Cervical 7601-635 75 / [...] Advance Directives occurred with: Patient Care Teams Lens Assistant Relationship Specialty Start Date End Date Vicki Cadet MD [address] [place] [address] [place] [phone] PCP - General Family Medicine 02/01/24 documented as of this encounter
--- OUTSIDE RECORDS SUMMARY | 2024-09-15 05:18 | External Medical Summary | Summary of Care ---
Author Name Unknown Organization [facility] Address [address] [facility] [address] Phone [phone] Care Team Providers Care Broadcast Operations Manager Name Role Phone Vicki Cadet MD Primary Care Prov ider Reason for Visit * Reason Comments Follow Up Pt presents for R 5t h metacarpal fx 1 week f/u Encounter Details Date Type Department Care Team (Late st Contact Info) Description 08/04/2024 10:00 AM EST Office Visit Orthopaedics [facility] [address] [place] [phone] Damaris Ardon PA-C [address] [place] [phone] Displaced fracture of neck of [...] as of this encounter (statuses as of 08/04/2024) Medications MULTIVITAMINS PO TABS 1 TABLET DAILY [...] % nasal sprayIndications:All ergic rhinitis Administer 1 [place] into nostril 2 times a day. 3 [...] 24 Active Vitamin D (Ergocalciferol) 1.25 MG (95312 UT) Oral Capsule (Drisdol)Indications :Vitamin D deficiency [...] as of this encounter (statuses as of 08/04/2024) Active Problems Problem Noted Date Diagnosed Date [...] (9-67) 12/30/99 - Left lingular biopsy at [facility] s/t frequent URI and nodularity [...] as of this encounter (statuses as of 08/04/2024) Resolved Problems Problem Noted Date Diagnosed Date [...] as of this encounter (statuses as of 08/04/2024) Immunizations Name Administration Dates Next Due Pneumococcal [...] ages 0-17 years) Not on file 11/22/2023 Comments No Sex and Gender Information Value Date Recorded Sex Assigned at Female 11/22/2023 11:41 AM EDT Legal Sex Female 5:28 AM EST Gender Identity Female 11/22/2023 11:41 AM EDT Sexual Orientation Straight 11/22/2023 11 :41 AM EDT 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 * Damaris Ardon PA-C - 08/04/2024 10:19 AM EST Lucinda Hackett is a 64 year old female who presents for follow up regarding Right 5th metacarpal fracture, questionable distal phalanx fractures. Lucinda Hackett is here unaccompanied. History: Chief Complaint Patient presents with Follow Up Pt presents for R 5th metacarpal fx 1 week f/u Nursing Notes: Ana Dietz CMA 08/04/24 1011 Signed Pt presents for R 5th metacarpal fx 1 week f/u Pt states pain 7/10 today in R 5th metacarpal - Ana Orellana CMA Patient was last seen on 07/27/2024 where she was found to have a right 5th metacarpal neck fracture and questionable distal phalanx fractures. She was placed in an ulnar gutter splint and advised tofollow up in 1 week for short- term follow up. Patient reports that her pain and swelling have improved. She denies taking of the splint. She reports it is mostly bothersome at night but feels that she is also over doing it as it is difficult since she is potty training her young twin boys. She reports having some numbness and tingling at night. She reports she has been icing and elevating the area. Review of systems: All others negative except those noted above in HPI. 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 Celiac disease Celiac disease 05/01/2014 EGD marked changes in duodenum Cervical stenosis of spine 04/23/2020 severe at C5-6 and C6-7 Chronic pancreatitis ([facility]) Colitis due to Escherichia coli 03/12/2017 COPD with emphysema ([facility]) COVID 08/04/2021 admitted [facility] treated with dexamethasone COVID-19 05/05/2022 nasal swab in office Encounter for hepatitis C screening test for low risk patient 08/14/2021 negative Epistaxis 08/16/2017 [facility] ER Hospital acquired methicillin resistant Staphylococcus aureus infection 2000 Hypokalemia Hypothyroidism Intestinal disaccharidase deficiency Iron deficiency anemia Migraine Mitral valve prolapse Motion sickness Obstructive sleep apnea syndrome Paroxysmal tachycardia ([facility]) Pneumonia due to COVID-19 virus 08/04/2021 Dexamethasone but not remdesivir, due to timing. [facility] Postoperative anemia due to acute blood loss 04/24/2022 Reflux esophagitis Restless legs syndrome Stage 3a chronic kidney disease ([facility]) 06/18/2021 EGFR 50 Statin intolerance Vitamin D [...] Disorder Sister Breast Cancer Grandmother (Maternal) Dasha Raygozatrentonrossanashannan Arthritis Grandmother (Maternal) Dasha Raygozatrentonrossanashannan Musculo-skeletal Disorder Grandmother (Maternal) Dasha Taveras Neurological Disorder Son autism Neurological Disorder Son autism Heart Disorder Son Wilton defects Lung Disorder Son Wilton born at 24 weeks gestation Musculo-skeletal Disorder Son Wilton mild Cerebral Palsy Gastro-intestinal disorder Son Wilton gerd, celiac disease, food allergies Allergies Son [place]ton latex, Peanuts, Grass, [place] Asthma Son Wilton COPD, BPD Neurological Disorder Son Wilton Autistic, ADD with poor impulse control Allergies Son [place]. Dust, Mold n Grass Asthma Son [place]. childhood Neurological Disorder Ralph Mancini Jr. 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 Entered by: Gildardo Finch MD 04/16/2011 PULMONARY [...] Insecurity: No Food Insecurity (11/22/2023) Food Insecurity Do you need food for this week? (Adult - for ages 18 years and over): No Are you able to get enough food for your family? (Household - for ages 0-17 years): Not on file Does your family need food this week? (Household - for ages 0-17 years): Not on file Do you always have enough food for your family? (Household - for ages 0-17 years): Not on file Transportation Needs: No Transportation Needs (11/22/2023) Transportation [...] Stability Do you currently live in a intermediate or have no steady place to sleep [...] performed by Jaspreet Georges MD at OR [facility] ANKLE ARTHROSCOPY/DEBRIDEMENT left CATHETERIZE LEFT HEART THRU SKIN 08/28/2009 [facility], normal COLONOSCOPY 2004 COLONOSCOPY 03/26/2011 biopsies--unremarkable COLONOSCOPY, DIAGNOSTIC (RECTUM) N/A 05/12/2024 hemorrhoids/recall 3 years/COLONOSCOPY FLEXIBLE PROXIMAL DIAGNOSTIC performed by Tarah Wood DO at OR [facility] CT ABDOMEN/PELVIS 03/12/2017 extensive right sided colonic wall thickening, severe colitis. 19 mm left adrenal adenoma ECHO, COMPLETE (2D), TRANS-THORACIC 03/12/2017 borderline conc LVH, EF 60-65% LA normal EGD, FLEXIBLE, DIAGNOSTIC 05/01/2014 active inflammation in duodenum consistent with Sprue, stricture/done [place] [facility]GD, FLEXIBLE, DIAGNOSTIC N/A 05/12/2024 diffuse gastritis/duodenal mucosal changes/biopsies celiac disease/ESOPHAGOGASTRODUODENOSCOPY (EGD), FLEXIBLE, TRANSORAL, DIAGNOSTIC performed by Tarah Wood DO at OR [facility] EGD, FLEXIBLE, W/BIOPSY 07/14/2010 biopsies--inflammation from celiac disease EGD, FLEXIBLE, W/BIOPSY 08/11/2012 persistent mild inflammation to small intestine--gluten free diet. EGD, W/ENDOSCOPIC US 08/04/2011 UPPER GI ENDOSCOPY ENDOSCOPIC ULTRASOUND performed by CAIO ANTONIO at ENDOSCOPY [facility] [place] KNEE ARTHROSCOPY, DIAGNOSTIC LAP;EXCISION OF LESIONS [id number] ~6 for endometriosis MISCELLANEOUS ORDER ([facility] ONLY) 1996 left knee arthroscopy MISCELLANEOUS ORDER ([facility] ONLY) 04/2012, 05/2012 repair first and second fingers of left hand NASAL SURGERY PROCEDURE NEC at least 4 nasal/sinus procedures last 1988 NECK SPINE FUSION (CERV, BELOW C2) N/A 04/22/2022 ARTHRODESIS SPINE POSTERIOR CERVICAL performed by Jaspreet Georges MD at OR [facility] OTHER 11/08/2015 single lumen MRI compatible a-port insertion [facility] Dr. Martinez 11/08/2015 RECONSTRUCTION OF NOSE REMOVE ADDED SPINE LAMINA, 1 SEG N/A 04/22/2022 LAMINECTOMY FACETECTOMY AND FORAMINOTOMY ADDITIONAL LEVELS performed by Jaspreet Georges MD at OR [facility] REMOVE GALLBLADDER 1995 REMOVE NECK SPINE LAMINA, 1 SEG N/A 04/22/2022 LAMINECTOMY FACETECTOMY AND FORAMINOTOMY POSTERIOR CERVICAL performed by Jaspreet Georges MD at OR [facility] REPAIR OF NASAL SEPTUM Nasal Septum Repair SLEEP STUDY, W/O CPAP 09/24/2009 sleep apnea 5-15 cm water pressure SPINE FUSION, EACH ADD'L VERTEBRA N/A 04/22/2022 ARTHRODESIS SPINE POSTERIOR EACH ADDITIONAL VERTEBRAE performed by Jaspreet Georges MD at OR [facility] SPINE SEG FIX, POST, 3-6 SEG, INSERT N/A 04/22/2022 POSTERIOR SPINE SEGMENTAL INSTRUMENTATION 3 TO 6 PSF performed by Jaspreet Georges MD at OR [facility] TENDON SHEATH INCISION, FINGER Right 12/08/2017 Dr Colon TOTAL ABD HYSTERECTOMY W/WO REMOVAL OF TUBE(S) 07/2006 [facility]NY BSO US EXTREMITY Left 03/12/2017 no DVT VASC DUPLEX VENOUS LE BILAT Bilateral 01/06/2023 no DVT bilateral popliteal cysts Physical Exam There were no vitals filed for this visit. Estimated body mass index is 19.89 kg/m as calculated from the following: Height as of 07/27/24: 1.626 m (5' 4.02"). Weight as of 07/27/24: 52.6 kg (115 lb 15.4 oz). General: generally well-nourished and in no acute distress HEENT: normocephalic, atraumatic, sclera anicteric. Psych: mood and affect normal , cooperative Heart and lungs okay Skin: no rash, normal, capillary refill less than 2 seconds Neuro: Coordination: normal; Sensation: normal on affected extremity (s) MSK: Hand Exam, Bilateral Inspection: Improvement in swelling of the right hand, noted ecchymosis over the 4th and 5th metacarpals as well as right pinky. Palpation: Patient is tender to palpation over the 5th metacarpal as well as the distal right pinky. She is not tender to palpation of the carpals, other metacarpals or other digits including the thumb.. No snuff box tenderness. Range of Motion: Rotation, angulation, or crossover: None noted on exam. There is improved range of motion as patient is able to almost fully make a fist during this visit. This is still slightly decreased in the right pinky. Strength: Deferred Radiology: I have personally reviewed the hand films. Per my interpretation, there is no evidence of associated or incidental soft tissue damage. The 5th metacarpal neck fracture appears to be mildlydisplaced compared to her previous x-rays from [facility]. Awaiting formal radiology interpretation. Assessment and Plan: 1) Right 5th metacarpal fracture, questionable distal phalanx fracture of the right pinky Patient is informed that there is some mild displacement of her metacarpal fracture; however, I didreview this with Dr. Rdz who feels that this displacement is still okay. Patient is informed that I do not appreciate any fracture of her thumb and she is no longer tender to palpation so she may d iscontinue the splint for her thumb at this time. Patient is given the option of continued close follow up in 1 week with new x-rays to which she is agreeable. Patient is advised to contact the office in the meantime with any new or worsening symptoms as well as any questions or concerns to which she is agreeable. Patient to follow up in 1 week with new x-rays out of the splint. Damaris Ardon PA-C [facility] [address] [place] [id number] documented in this encounter Nursing Notes * Ana Dietz CMA - 08/04/2024 10:08 AM EST Pt presents for R 5th metacarpal fx 1 week f/u Pt states pain 7/10 today in R 5th metacarpal - Ana Orellana SLEEPING BAG F[employer]ER documented in this encounter Plan of Treatment Upcoming Encounters Date Type Department Care Team (Late st Contact Info) Description 08/11/2024 10:30 AM EST Office Visit Orthopaedics [facility] [address] [place] [phone] Damaris Ardon PA-C [address] [place] [phone] 08/25/2024 2:00 PM EST Nutrition Services Nutrition, [facility] [address] [place] [address] Jayshree Rawls RDN [address] [place] [address] 09/08/2024 2:00 PM EST Nurse Only Hematology/Oncology Treatment, [place] [address] [facility], [place] [phone] Tasha, Chair [address] [address] 09/15/2024 2:00 PM EDT Office Visit Hematology/Oncology [facility] [place] [address] [facility] [place] [phone] Olivia Sawyer CRNP [address] [facility] [place] [address] 09/28/2024 1:00 PM EDT Office Visit Endocrinology [address] [place] [phone] Vickie Martines MD [address] [place] [address] 10/16/2024 11:00 AM EDT Office Visit Cardiology, [facility] [address] [place] [address] Silverio Aguirre DO [address] [place] [address] 12/25/2024 12:20 PM EDT Office Visit Family Medicine [address] [place] [phone] Joann You PA-C [address] [place] [address] [place] [id number] Pending Results Name Type Priority Associated Diagnoses Date /Time XR HAND 3 OR MORE VIEWS Medical Imaging Routine Displaced fracture of neck of fifth metacarpal bone, right hand, initial encounter for closed fracture 08/04/2024 10:59 AM EST Scheduled Procedures Name Priority Associated [...] this encounter Medical Devices Implanted Type Area Fuel Cell Designer Device Identifier Shelf Expiration Date Model / Serial / Lot Dbx 5cc [id number] - [id number] Implanted:Qt y: 1 on 04/22/2022 by Jaspreet Georges MD at [facility] Tissue - Human MUSCULOSKELETAL TRANSPLANT FND [id number] 11/22/2023 [id number] / [id number] 19 / LOT NA Vitoss Bimodal Foam Pack 2.5cc - [id number] Implanted:Qt y: 1 on 04/22/2022 by Jaspreet Georges MD at [facility] ANATOLIY : SPINE [id number] 04/01/2023 2102- 190 2 / [id number] / [id number] [employer]oss Bimodal Foam Pack 2.5cc - [id number] Implanted:Qt y: 1 on 04/22/2022 by Jaspreet Georges MD at OR [facility] ANATOLIY : SPINE [id number] 09/01/2023 2102- 190 2 / [id number] / [id number] [place] Screw Set Implanted:Qt y: 10 on 04/22/2022 by Jaspreet Georges MD at OR [facility] N/A: Spine Cervical [id number] [place] 3.5 X 12mm Screw Implanted:Qt y: 4 on 04/22/2022 by Jaspreet Georges MD at OR [facility] N/A: Spine Cervical 7601-035 12 / / [place] 3.5 X 10mm Screw Implanted:Qt y: 3 on 04/22/2022 by Jaspreet Georges MD at OR [facility] N/A: Spine Cervical 7601-035 10 / / [place] 4.0 X 10mm Screw Implanted:Qt y: 1 on 04/22/2022 by Jaspreet Georges MD at OR [facility] N/A: Spine Cervical [id number] 10 / / [place] 4.5 X 22mm Screw Implanted:Qt y: 2 on 04/22/2022 by Jaspreet Georges MD at OR [facility] N/A: Spine Cervical [id number] 22 / / [place] 3.5 X 75mm [place] Implanted:Qt y: 2 on 04/22/2022 by Jaspreet Georges MD at OR [facility] N/A: Spine Cervical [id number] 75 [...] Advance Directives occurred with: Patient Care Teams Broadcast Operations Manager Relationship Specialty Start Date End Date Vicki Cadet MD [address] [place] [address] [place] [id number] PCP - General Family Medicine 02/01/24 documented as of this encounter
--- OUTSIDE RECORDS SUMMARY | 2024-09-15 05:18 | External Medical Summary | Summary of Care ---
Author Name Unknown Organization [facility] Address [address] [facility] [address] Phone [phone] Care Team Providers Care Workers Compensation Specialist Name Role Phone Vicki Cadet MD Primary Care Prov ider Reason for Visit * Reason Comments New Problem Right wrist Encounter Details Date Type Department Care Team (Late st Contact Info) Description 07/27/2024 2:00 PM EST Office Visit Orthopaedics [facility] [address] [place] [phone] Damaris Ardon PA-C [address] [place] [...] as of this encounter (statuses as of 07/31/2024) Medications MULTIVITAMINS PO TABS 1 TABLET DAILY [...] % nasal sprayIndications:All ergic rhinitis Administer 1 [place] into nostril 2 times a day. 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 * Izaiah Rdz MD - 07/31/2024 7:47 AM EST I have reviewed the advanced practitioner's documentation on the date of service referenced in note, and I agree with, and take responsibility for the plan of care. * Damaris Ardon PA-C - 07/27/2024 1:35 PM EST Lucinda Hackett is a 64 year old female who presents for consultation to [facility] for right hand injury/pain. Consult requested by [facility] ED. Lucinda Hackett is here unaccompanied. History: Chief Complaint Patient presents with New Problem Right wrist Nursing Notes: Lili Smith, FRANCOISE 07/27/24 1341 Signed Chief Complaint Patient presents with New Problem Right wrist DOI 07/25/24 Slipped and fell in her driveway. Reports pain, bruising, and swelling Xrays 07/25/24 Patient is a 64 year old right-hand dominant female who I evaluated on 07/21/2024 for left hand pain and numbness. Patient was diagnosed with left carpal tunnel syndrome, trapeziometacarpal arthritisand ganglion cyst which was aspirated by Dr. Rdz during the visit. She was provided with a thumbspica to wear at nighttime and advised to follow up in 4 weeks. Patient was then seen at [facility] ER on 07/24/2024 status post falling on ice on 07/23/2024 and injuring the right hand. X-rays were completed that showed a fracture of the 5th metacarpal as well as distal phalanx of the 1st digit so the patient was advised to follow up with Orthopedics. Patient reports that she slipped on ice and fell on Wednesday when her pain began immediately. She localizes pain to the right wrist, medial aspect of the hand and right thumb. She reports that she wentto the ER on Wednesday who told her that she had a fracture so she was splinted. She reports that theyprescribed her hydrocodone which she has been taking. She reports some numbness and tingling in herindex and middle fingers. She reports that she has osteoporosis and Jasmina- Danlos syndrome. Review of systems: All others negative except those noted above in HPI. 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 Celiac disease Celiac disease 05/01/2014 EGD marked changes in duodenum Cervical stenosis of spine 04/23/2020 severe at C5-6 and C6-7 Chronic pancreatitis (HCC) Colitis due to Escherichia coli 03/12/2017 COPD with emphysema (HCC) COVID 08/04/2021 admitted [facility] treated with dexamethasone COVID-19 05/05/2022 nasal swab in office Encounter for hepatitis C screening test for low risk patient 08/14/2021 negative Epistaxis 08/16/2017 [facility] ER Hospital acquired methicillin resistant Staphylococcus aureus infection 1999 Hypokalemia Hypothyroidism Intestinal disaccharidase deficiency Iron deficiency anemia Migraine Mitral valve prolapse Motion sickness Obstructive sleep apnea syndrome Paroxysmal tachycardia (HCC) Pneumonia due to COVID-19 virus 08/04/2021 Dexamethasone but not remdesivir, due to timing. [facility] Postoperative anemia due to acute [...] Saenz Mitochondrial disease Thyroid Disorder Sister Dasha Gamez Fabrizio Hyperactive Thyroid Neurological Disorder Sister ALS Blood Disorder Sister Breast Cancer Grandmother (Maternal) Dasha Taveras Arthritis Grandmother (Maternal) Dasha Taveras Musculo-skeletal Disorder Grandmother (Maternal) Dasha Taveras Neurological Disorder Son autism Neurological Disorder Son autism Heart Disorder Son Wilton defects Lung Disorder Son Wilton born at 24 weeks gestation Musculo-skeletal Disorder Son Wilton mild Cerebral Palsy Gastro-intestinal disorder Son Wilton gerd, celiac disease, food allergies Allergies Son Wilton latex, Peanuts, Grass, [place] Asthma Son Wilton COPD, BPD Neurological Disorder Son Wilton Autistic, ADD with poor impulse control Allergies Son Live Iqbal Dust, Mold n Grass Asthma Son Live Jr. childhood Neurological Disorder Ralph Mancini Jr. 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 Entered by: Gildardo Finch MD 04/16/2011 PULMONARY [...] Stability Do you currently live in a senior care or have no steady place to sleep [...] performed by Jaspreet Georges MD at OR [facility] ANKLE ARTHROSCOPY/DEBRIDEMENT left CATHETERIZE LEFT HEART THRU SKIN 08/28/2009 [facility], normal COLONOSCOPY 2004 COLONOSCOPY 03/26/2011 biopsies--unremarkable COLONOSCOPY, DIAGNOSTIC (RECTUM) N/A 05/12/2024 hemorrhoids/recall 3 years/COLONOSCOPY FLEXIBLE PROXIMAL DIAGNOSTIC performed by Tarah Wood DO at OR [facility] CT ABDOMEN/PELVIS 03/12/2017 extensive right sided colonic wall thickening, severe colitis. 19 mm left adrenal adenoma ECHO, COMPLETE (2D), TRANS-THORACIC 03/12/2017 borderline conc LVH, EF 60-65% LA normal EGD, FLEXIBLE, DIAGNOSTIC 05/01/2014 active inflammation in duodenum consistent with Sprue, [place] [facility] [place], FLEXIBLE, DIAGNOSTIC N/A 05/12/2024 diffuse gastritis/duodenal mucosal changes/biopsies celiac disease/ESOPHAGOGASTRODUODENOSCOPY (EGD), FLEXIBLE, TRANSORAL, DIAGNOSTIC performed by Tarah Wood DO at OR [facility] EGD, FLEXIBLE, W/BIOPSY 07/14/2010 biopsies--inflammation from celiac disease EGD, FLEXIBLE, W/BIOPSY 08/11/2012 persistent mild inflammation to small intestine--gluten free diet. EGD, W/ENDOSCOPIC US 08/04/2011 UPPER GI ENDOSCOPY ENDOSCOPIC ULTRASOUND performed by CAIO ANTONIO at ENDOSCOPY [facility] KNEE ARTHROSCOPY, DIAGNOSTIC LAP;EXCISION OF LESIONS [id number] ~6 for endometriosis MISCELLANEOUS ORDER ([facility] ONLY) 1996 left knee arthroscopy MISCELLANEOUS ORDER ([facility] ONLY) 04/2012, 05/2012 repair first and second fingers of left hand NASAL SURGERY PROCEDURE NEC at least 4 nasal/sinus procedures last 1988 NECK SPINE FUSION (CERV, BELOW C2) N/A 04/22/2022 ARTHRODESIS SPINE POSTERIOR CERVICAL performed by Jaspreet Georges MD at OR [facility] OTHER 11/08/2015 single lumen MRI compatible a-port insertion [facility] Dr. Martinez 11/08/2015 RECONSTRUCTION OF NOSE REMOVE ADDED SPINE LAMINA, 1 SEG N/A 04/22/2022 LAMINECTOMY FACETECTOMY AND FORAMINOTOMY ADDITIONAL LEVELS performed by Jaspreet Georges MD at OR [facility] REMOVE GALLBLADDER 1995 REMOVE NECK SPINE LAMINA, 1 SEG N/A 04/22/2022 LAMINECTOMY FACETECTOMY AND FORAMINOTOMY POSTERIOR CERVICAL performed by Jaspreet Georges MD at OR [facility] REPAIR OF NASAL SEPTUM Nasal Septum Repair SLEEP STUDY, W/O CPAP 09/24/2009 sleep apnea 5-15 cm water pressure SPINE FUSION, EACH ADD'L VERTEBRA N/A 04/22/2022 ARTHRODESIS SPINE POSTERIOR EACH ADDITIONAL VERTEBRAE performed by Jaspreet Georges MD at OR [facility] SPINE SEG FIX, POST, 3-6 SEG, INSERT N/A 04/22/2022 POSTERIOR SPINE SEGMENTAL INSTRUMENTATION 3 TO 6 PSF performed by Jaspreet Georges MD at OR [facility] TENDON SHEATH INCISION, FINGER Right 12/08/2017 Dr Colon TOTAL ABD HYSTERECTOMY W/WO REMOVAL OF TUBE(S) 07/2006 [facility] BSO US EXTREMITY Left 03/12/2017 no DVT VASC DUPLEX VENOUS LE BILAT Bilateral 01/06/2023 no DVT bilateral popliteal cysts Physical Exam Filed Vitals: 07/27/24 1339 Weight: 52.6 kg (115 lb 15.4 oz) Height: 1.626 m (5' 4.02") Estimated body mass index is 19.89 kg/m as calculated from the following: Height as of this encounter: 1.626 m (5' 4.02"). Weight as of this encounter: 52.6 kg (115 lb 15.4 oz). General: generally well-nourished and in mild distress HEENT: normocephalic, atraumatic, sclera anicteric. Psych: mood and affect tearful , cooperative Heart and lungs okay Skin: no rash, normal, capillary refill less than 2 seconds Neuro: Coordination: normal; Sensation: normal on affected extremity (s) MSK: Hand Exam, Bilateral Inspection: Notable ecchymosis and edema of the right upper extremity particularly over the distal hand. Palpation: Patient is not tender to palpation of the forearm but is tender to palpation of the distal radius and ulna, right 5th metacarpal, right pinky finger and right thumb. Range of Motion: Significantly decreased in the right upper extremity secondary to pain and swelling. Unable to assess for rotation at this time as patient is unable to bend her ring or pinky finger-difficult to tellwhether this is secondary to edema, pain or underlying etiology. Strength: Deferred Radial pulse 2 +of the right upper extremity, capillary refill less than 2 seconds. Radiology: I have personally reviewed the hand films through [facility]. Per my interpretation, there is a fracture of the right 5th metacarpal neck with minimal volar angulation. There is also a bony fragment of the right distal phalanx of the pinky finger. There is a bony fragment of the distal phalanx of the right thumb, it is difficult to tell whether this is an old fracture versus sesamoid bone; however, it appears to be chronic. I do not appreciate any obvious fractures of the radius or ulna. The radiology report for the hand and wrist x-ray describes a mildly impacted fracture of the distal aspect of the 5th metacarpal. No significant angulation. Mildly displaced fracture, base of distalphalanx, 1st digit. Assessment and Plan: 1) Right 5th metacarpal fracture, questionable distal phalanx fractures Patient is informed that her x-rays are indicative of a 5th metacarpal fracture; however, I do not appreciate any indication for urgent or emergent intervention at this time. Patient is given the option of splinting in an ulnar gutter with short-term follow-up since I am unable to assess her rotation today to which she is agreeable. Patient is given the option of also splinting the thumb which may be removed should this improve before her appointment as I suspect this possible fracture is chronic. Patient is informed that she may experience delayed healing secondary to her osteoporosis. Patient is given the option of follow up next Wednesday to which she is agreeable. Patient is advised to contact the office in the meantime with any new or worsening symptoms as well as any questions or con cerns to which she is agreeable. Patient to follow up next Wednesday. Damaris Ardon PA-C [facility] [address] [facility] [place] [id number] documented in this encounter Nursing Notes * Lili Smith CMA - 07/27/2024 1:40 PM EST Chief Complaint Patient presents with New Problem Right wrist DOI 07/25/24 Slipped and fell in her driveway. Reports pain, bruising, and swelling Xrays 07/25/24 documented in this encounter Plan of Treatment Upcoming Encounters Date Type Department Care Team (Late st Contact Info) Description 08/02/2024 10:00 AM EST Office Visit Orthopaedics [facility] [address] [place] [phone] Damaris Ardon PA-C [address] [place] [phone] 08/25/2024 2:00 PM EST Nutrition Services Nutrition, [facility] [address] [place] [place] [address] Jayshree Rawls RDN [address] [place] [address] 09/08/2024 2:00 PM EST Nurse Only Hematology[facility]Oncology [facility], [place] [address] [facility] [phone] Tasha, Chair [address] [address] [address] 09/15/2024 2:00 PM EDT Office Visit Hematology/Oncology [address], [place] [phone] Olivia Sawyer CRNP [address] [facility] [place] [address] 09/28/2024 1:00 PM EDT Office Visit Endocrinology [address] [place] [address] Vickie Martines MD [address] [place] [address] 10/16/2024 11:00 AM EDT Office Visit Cardiology, [facility] [address] [place] [address] Silverio Aguirre DO [address] [place] [address] 12/25/2024 12:20 PM EDT Office Visit Family Medicine [address] [place] [phone] Joann You PA-C [address] [place] [address] [place] [id number] Scheduled Procedures Name Priority Associated Diagnoses Date/Ti [...] this encounter Medical Devices Implanted Type Area Director Of Database Marketing Device Identifier Shelf Expiration Date Model / Serial / Lot Dbx 5cc [id number] - [id number] Implanted:Qt y: 1 on 04/22/2022 by Jaspreet Georges MD at OR [facility] Tissue - Human [employer]CULOSKELETAL TRANSPLANT FND [id number] 11/22/2023 [id number] / [id number] / LOT NA Vitoss Bimodal Foam Pack 2.5cc - [id number] Implanted:Qt y: 1 on 04/22/2022 by Jaspreet Georges MD at OR [facility] ANATOLIY : SPINE [id number] 04/01/20232101- 190 2 / [id number] / [id number] Vitoss Bimodal Foam Pack 2.5cc - [id number] Implanted:Qt y: 1 on 04/22/2022 by Jaspreet Georges MD at OR [facility] ANATOLIY : SPINE [id number] 09/01/20232101- 190 2 / [id number] / [id number] [place] Screw Set Implanted:Qt y: 10 on 04/22/2022 by Jaspreet Georges MD at OR [facility] N/A: Spine Cervical 7601-100 01 / / [place] 3.5 X 12mm Screw Implanted:Qt y: 4 on 04/22/2022 by Jaspreet Georges MD at OR [facility] N/A: Spine Cervical 7601-035 12 / / [place] 3.5 X 10mm Screw Implanted:Qt y: 3 on 04/22/2022 by Jaspreet Georges MD at OR [facility] N/A: Spine Cervical 7601-035 10 / / [place] 4.0 X 10mm Screw Implanted:Qt y: 1 on 04/22/2022 by Jaspreet Georges MD at OR [facility] N/A: Spine Cervical 7601-040 10 / / [place] 4.5 X 22mm Screw Implanted:Qt y: 2 on 04/22/2022 by Jaspreet Georges MD at OR [facility] N/A: Spine Cervical 7601-045 22 / / [place] 3.5 X 75mm [place] Implanted:Qt y: 2 on 04/22/2022 by Jaspreet Georges MD at OR [facility] N/A: Spine Cervical 7601-635 75 / [...] Advance Directives occurred with: Patient Care Teams Workers Compensation Specialist Relationship Specialty Start Date End Date Vicki Cadet MD [address] [place] [address] [place] [phone] PCP - General Family Medicine 02/01/24 documented as of this encounter
--- OUTSIDE RECORDS SUMMARY | 2024-09-15 05:18 | External Medical Summary | Summary of Care ---
Author Name Unknown Organization [facility] Address [address] [address] Phone [phone] Care Team Providers Care Tour Driver Name Role Phone Vicki Cadet MD Primary Care Prov ider Reason for Visit * Reason Comments New Problem Right wrist Encounter Details Date Type Department Care Team (Late st Contact Info) Description 07/27/2024 2:00 PM EST Office Visit Orthopaedics [facility] [address] [place] [phone] Damaris Ardon PA-C [address] [place] [phone] Displaced fracture of neck of fifth [...] % nasal sprayIndications:All ergic rhinitis Administer 1 [place] into nostril 2 times a day. 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 * Damaris Ardon PA-C - 07/27/2024 1:35 PM EST Lucinda Hackett is a 64 year old female who presents for consultation to [facility] for right hand injury/pain. Consult requested by [facility] ED. Lucinda Hackett is here unaccompanied. History: Chief Complaint Patient presents with New Problem Right wrist Nursing Notes: Lili Smith, [facility] 07/27/24 1341 Signed Chief Complaint Patient presents [...] 4 weeks. 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 Celiac disease Celiac disease 05/01/2014 EGD marked changes in duodenum Cervical stenosis of spine 04/23/2020 severe at C5-6 and C6-7 Chronic pancreatitis (HCC) Colitis due to Escherichia coli 03/12/2017 COPD with emphysema (HCC) COVID 08/04/2021 admitted [facility] treated with dexamethasone COVID-19 05/05/2022 nasal swab in office Encounter for hepatitis C screening test for low risk patient 08/14/2021 negative Epistaxis 08/16/2017 [facility] ER Hospital acquired methicillin resistant Staphylococcus aureus infection 2000 Hypokalemia Hypothyroidism Intestinal disaccharidase deficiency Iron deficiency anemia Migraine Mitral valve prolapse Motion sickness Obstructive sleep apnea syndrome Paroxysmal tachycardia (HCC) Pneumonia due to COVID-19 virus 08/04/2021 Dexamethasone but not remdesivir, due to timing. [facility] Postoperative anemia due to acute blood loss [...] allergies Allergies Son Wilton latex, Peanuts, Grass, [place] Asthma Son Wilton COPD, BPD Neurological Disorder Son Wilton Autistic, ADD with poor impulse control Allergies Son Live Jr. Dust, Mold n Grass Asthma Son Live Jr. childhood Neurological Disorder Son Live Jr. 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 Entered by: Gildardo Finch MD 04/16/2011 PULMONARY [...] Stability Do you currently live in a correction or have no steady place to sleep [...] performed by Jaspreet Georges MD at OR [facility] ANKLE ARTHROSCOPY/DEBRIDEMENT left CATHETERIZE LEFT HEART THRU SKIN 08/28/2009 [facility], normal COLONOSCOPY 2004 COLONOSCOPY 03/26/2011 biopsies--unremarkable COLONOSCOPY, DIAGNOSTIC (RECTUM) N/A 05/12/2024 hemorrhoids/recall 3 years/COLONOSCOPY FLEXIBLE PROXIMAL DIAGNOSTIC performed by Tarah Wood DO at OR [facility] CT ABDOMEN/PELVIS 03/12/2017 extensive right sided colonic wall thickening, severe colitis. 19 mm left adrenal adenoma ECHO, COMPLETE (2D), TRANS-THORACIC 03/12/2017 borderline conc LVH, EF 60-65% LA normal EGD, FLEXIBLE, DIAGNOSTIC 05/01/2014 active inflammation in duodenum consistent with Sprue, stricture/done @ [facility] EGD, FLEXIBLE, DIAGNOSTIC N/A 05/12/2024 diffuse gastritis/duodenal mucosal changes/biopsies celiac disease/ESOPHAGOGASTRODUODENOSCOPY (EGD), FLEXIBLE, TRANSORAL, DIAGNOSTIC performed by Tarah Wood DO at OR [facility] EGD, FLEXIBLE, W/BIOPSY 07/14/2010 biopsies--inflammation from celiac disease EGD, FLEXIBLE, W/BIOPSY 08/11/2012 persistent mild inflammation to small intestine--gluten free diet. EGD, W/ENDOSCOPIC US 08/04/2011 UPPER GI ENDOSCOPY ENDOSCOPIC ULTRASOUND performed by CAIO ANTONIO at ENDOSCOPY [facility] KNEE ARTHROSCOPY, DIAGNOSTIC LAP;EXCISION OF LESIONS [id number] ~6 for endometriosis MISCELLANEOUS ORDER ([facility] ONLY) 1996 left knee arthroscopy MISCELLANEOUS ORDER ([facility] ONLY) 04/2012, 05/2012 repair first and second fingers of left hand NASAL SURGERY PROCEDURE NEC at least 4 nasal/sinus procedures last 1988 NECK SPINE FUSION (CERV, BELOW C2) N/A 04/22/2022 ARTHRODESIS SPINE POSTERIOR CERVICAL performed by Jaspreet Georges MD at OR [facility] OTHER 11/08/2015 single lumen MRI compatible a-port insertion [facility] Dr. Martinez 11/08/2015 RECONSTRUCTION OF NOSE REMOVE ADDED SPINE LAMINA, 1 SEG N/A 04/22/2022 LAMINECTOMY FACETECTOMY AND FORAMINOTOMY ADDITIONAL LEVELS performed by Jaspreet Georges MD at OR [facility] REMOVE GALLBLADDER 1995 REMOVE NECK SPINE LAMINA, 1 SEG N/A 04/22/2022 LAMINECTOMY FACETECTOMY AND FORAMINOTOMY POSTERIOR CERVICAL performed by Jaspreet Georges MD at OR [facility] REPAIR OF NASAL SEPTUM Nasal Septum Repair SLEEP STUDY, W/O CPAP 09/24/2009 sleep apnea 5-15 cm water pressure SPINE FUSION, EACH ADD'L VERTEBRA N/A 04/22/2022 ARTHRODESIS SPINE POSTERIOR EACH ADDITIONAL VERTEBRAE performed by Jaspreet Georges MD at OR [facility] SPINE SEG FIX, POST, 3-6 SEG, INSERT N/A 04/22/2022 POSTERIOR SPINE SEGMENTAL INSTRUMENTATION 3 TO 6 PSF performed by Jaspreet Georges MD at OR [facility] TENDON SHEATH INCISION, FINGER Right 12/08/2017 [...] have personally reviewed the hand films through [employer]. Per my interpretation, there is a fracture [...] follow up next Wednesday. Damaris Ardon PA-C [facility] [place] [phone] documented in this encounter Nursing Notes * [...] 08/02/2024 10:00 AM EST Office [facility] [address] [facility] [place] [phone] Damaris Ardon PA-C [address] [place] [phone] 08/25/2024 2:00 PM EST Nutrition Services Nutrition, [facility] [address] [facility] [place] [address] Jayshree Rawls, RDN 132 [place] [address] 09/08/2024 2:00 PM EST Nurse Only Hematology/Oncology Treatment, [place] [address] [place] [address] Tasha, Chair 11 Hem Onc [facility] 200 [facility] [address] 09/15/2024 2:00 PM EDT Office Visit Hematology/Oncology [facility] 200 [facility] [place] [address] Olivia Sawyer CRNP [address] [place] [address] 09/28/2024 1:00 PM EDT Office Visit Endocrinology [address] [place] [phone] Vickie Martines MD [address] [place] [address] 10/16/2024 11:00 AM EDT Office Visit Cardiology, [facility] 132 [facility] [place] [address] Silverio Aguirre O DO [address] [place] [place] [address] 12/25/2024 12:20 PM EDT Office Visit Family Medicine [address] [place] [phone] Joann You PA-C [address] [place] [address] [place] [address] Scheduled Procedures Name Priority Associated Diagnoses Date/Ti [...] Tdap) 12/21/2026 12/21/2016, 01/02/2005 Colonoscopy 05/12/2027 05/12/2024, 1102/2024, 03/26/2011, Additional history exists Colorectal Cancer Screening [...] this encounter Medical Devices Implanted Type Area Strap Machine Operator Device Identifier Shelf Expiration Date Model / Serial / Lot Dbx 5cc [id number] - [id number] Implanted:Qt y: 1 on 04/22/2022 by Jaspreet Georges MD at OR [facility] Tissue - Human MUSCULOSKELETAL TRANSPLANT FND [id number] 11/22/2023 [id number] / [id number] 19 / LOT NA Vitoss Bimodal Foam Pack 2.5cc - [id number] Implanted:Qt y: 1 on 04/22/2022 by Jaspreet Georges MD at OR [facility] ANATOLIY : SPINE [id number] 04/01/20232101- 190 2 / [id number] / [id number] Vitoss Bimodal Foam Pack 2.5cc - [id number] Implanted:Qt y: 1 on 04/22/2022 by Jaspreet Georges MD at OR [facility] ANATOLIY : SPINE [id number] 09/01/20232101- 2 / [id number] / [id number] Anatoliy [place] Screw Set Implanted:Qt y: 10 on 04/22/2022 by Jaspreet Georges MD at OR [facility] N/A: Spine Cervical 7601-100 01 / / [place] 3.5 X 12mm Screw Implanted:Qt y: 4 on 04/22/2022 by Jaspreet Georges MD at OR [facility] N/A: Spine Cervical 7601-035 12 / / [place] 3.5 X 10mm Screw Implanted:Qt y: 3 on 04/22/2022 by Jaspreet Georges MD at OR [facility] N/A: Spine Cervical 7601-035 10 / / Anatoliy [place] 4.0 X 10mm Screw Implanted:Qt y: 1 on 04/22/2022 by Jaspreet Georges MD at OR [facility] N/A: Spine Cervical 7601-040 10 / / [place] 4.5 X 22mm Screw Implanted:Qt y: 2 on 04/22/2022 by Jaspreet Georges MD at OR [facility] N/A: Spine Cervical 7601-045 22 / / Jasper [place] 3.5 X 75mm [place] Implanted:Qt y: 2 on 04/22/2022 by Jaspreet Georges MD at OR [facility] N/A: Spine Cervical [id number] 75 / / documented as of this [...] Advance Directives occurred with: Patient Care Teams Tour Driver Relationship Specialty Start Date End Date Vicki Cadet MD [address] [place] [address] [place] [phone] PCP - General Family Medicine 02/01/24 documented as of this encounter
--- OUTSIDE RECORDS SUMMARY | 2024-09-15 05:18 | External Medical Summary | Summary of Care ---
Author Name Unknown Organization [facility] Address [address] [place] [address] Phone [phone] Care Team Providers Care Eeg Technician Name Role Phone Vicki Cadet MD Primary Care Prov ider Reason for Visit * Reason Comments Follow Up Right 5th metacarpal fracture Encounter Details Date Type Department Care Team (Late st Contact Info) Description 08/11/2024 10:30 AM EST Office Visit Orthopaedics [facility] [address] [place] [phone] Damaris Ardon PA-C [address] [place] [...] % nasal sprayIndications:All ergic rhinitis Administer 1 [place] into nostril 2 times a day. 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 Celiac disease Celiac disease 05/01/2014 EGD marked changes in duodenum Cervical stenosis of spine 04/23/2020 severe at C5-6 and C6-7 Chronic pancreatitis (HCC) Colitis due to Escherichia coli 03/12/2017 COPD with emphysema (HCC) COVID 08/04/2021 admitted [facility] treated with dexamethasone COVID-19 05/05/2022 nasal swab in office Encounter for hepatitis C screening test for low risk patient 08/14/2021 negative Epistaxis 08/16/2017 [facility] ER Hospital acquired methicillin resistant Staphylococcus aureus infection 2000 Hypokalemia Hypothyroidism Intestinal disaccharidase deficiency Iron deficiency anemia Migraine Mitral valve prolapse Motion sickness Obstructive sleep apnea syndrome Paroxysmal tachycardia (HCC) Pneumonia due to COVID-19 virus 08/04/2021 Dexamethasone but not remdesivir, due to timing. [facility] Postoperative anemia due to acute blood [...] Disorder Son Wil[place] defects Lung Disorder Son [place] born at 24 weeks gestation Musculo-skeletal Disorder Son [place] mild Cerebral Palsy Gastro-intestinal disorder Son [place] gerd, celiac disease, food allergies Allergies Son [place] latex, Peanuts, Grass, [place] Asthma Son [place] COPD, BPD Neurological Disorder Son [place] Autistic, ADD with poor impulse control Allergies Son Live . Dust, Mold n Grass Asthma Son Live Jr. childhood Neurological Disorder Son Live . 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 Entered by: Gildardo Finch MD 04/16/2011 PULMONARY [...] Stability Do you currently live in a residential or have no steady place to sleep [...] performed by Jaspreet Georges MD at OR [facility] ANKLE ARTHROSCOPY/DEBRIDEMENT left CATHETERIZE LEFT HEART THRU SKIN 08/28/2009 [facility], normal COLONOSCOPY 2004 COLONOSCOPY 03/26/2011 biopsies--unremarkable COLONOSCOPY, DIAGNOSTIC (RECTUM) N/A 05/12/2024 hemorrhoids/recall 3 years/COLONOSCOPY FLEXIBLE PROXIMAL DIAGNOSTIC performed by Tarah Wood DO at OR [facility] CT ABDOMEN/PELVIS 03/12/2017 extensive right sided colonic wall thickening, severe colitis. 19 mm left adrenal adenoma ECHO, COMPLETE (2D), TRANS-THORACIC 03/12/2017 borderline conc LVH, EF 60-65% LA normal EGD, FLEXIBLE, DIAGNOSTIC 05/01/2014 active inflammation in duodenum consistent with Sprue, stricture/done @ [facility] EGD, FLEXIBLE, DIAGNOSTIC N/A 05/12/2024 diffuse gastritis/duodenal mucosal changes/biopsies celiac disease/ESOPHAGOGASTRODUODENOSCOPY (EGD), FLEXIBLE, TRANSORAL, DIAGNOSTIC performed by Tarah Wood DO at OR [facility] EGD, FLEXIBLE, W/BIOPSY 07/14/2010 biopsies--inflammation from celiac disease EGD, FLEXIBLE, W/BIOPSY 08/11/2012 persistent mild inflammation to small intestine--gluten free diet. EGD, W/ENDOSCOPIC US 08/04/2011 UPPER GI ENDOSCOPY ENDOSCOPIC ULTRASOUND performed by CAIO ANTONIO at ENDOSCOPY [facility] KNEE ARTHROSCOPY, DIAGNOSTIC LAP;EXCISION OF LESIONS [id number] ~6 for endometriosis MISCELLANEOUS ORDER ([facility] ONLY) 1996 left knee arthroscopy MISCELLANEOUS ORDER ([facility] ONLY) 04/2012, 05/2012 repair first and second fingers of left hand NASAL SURGERY PROCEDURE NEC at least 4 nasal/sinus procedures last 1988 NECK SPINE FUSION (CERV, BELOW C2) N/A 04/22/2022 ARTHRODESIS SPINE POSTERIOR CERVICAL performed by Jaspreet Georges MD at OR [facility] OTHER 11/08/2015 single lumen MRI compatible a-port insertion [facility] Dr. Martinez 11/08/2015 RECONSTRUCTION OF NOSE REMOVE ADDED SPINE LAMINA, 1 SEG N/A 04/22/2022 LAMINECTOMY FACETECTOMY AND FORAMINOTOMY ADDITIONAL LEVELS performed by Jaspreet Georges MD at OR [facility] REMOVE GALLBLADDER 1995 REMOVE NECK SPINE LAMINA, 1 SEG N/A 04/22/2022 LAMINECTOMY FACETECTOMY AND FORAMINOTOMY POSTERIOR CERVICAL performed by Jaspreet Georges MD at OR [facility] REPAIR OF NASAL SEPTUM Nasal Septum Repair SLEEP STUDY, W/O CPAP 09/24/2009 sleep apnea 5-15 cm water pressure SPINE FUSION, EACH ADD'L VERTEBRA N/A 04/22/2022 ARTHRODESIS SPINE POSTERIOR EACH ADDITIONAL VERTEBRAE performed by Jaspreet Georges MD at OR [facility] SPINE SEG FIX, POST, 3-6 SEG, INSERT N/A 04/22/2022 POSTERIOR SPINE SEGMENTAL INSTRUMENTATION 3 TO 6 PSF performed by Jaspreet Georges MD at OR [facility] TENDON SHEATH INCISION, FINGER Right [...] patient should come out of the splint 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 Patient [...] out of the splint. Damaris Ardon PA-C [facility] [address] [place] [address] documented in this encounter Nursing Notes * Lili Smith CMA - 08/11/2024 10:35 AM EST Chief Complaint Patient presents with Follow Up Right 5th metacarpal fracture DOI 07/25/24 Xray 08/04/24 documented in this encounter Plan of Treatment Upcoming Encounters Date Type Department Care Team (Late st Contact Info) Description 08/21/2024 3:30 PM EST Office Visit Orthopaedics [facility] [address] [place] [phone] Damaris Ardon PA-C [address] [place] [address] 08/25/2024 2:00 PM EST Nutrition Services Nutrition, [facility] [address] [place] [address] Jayshree Rawls, BOONE [address] [place] [address] 09/08/2024 2:00 PM EST Nurse Only Hematology/Oncology Treatment, [place] [address] [place] [phone] Tasha, Chair 11 Hem Onc [facility] [address] [facility] [place] [address] 09/15/2024 2:00 PM EDT Office Visit Hematology/Oncology [facility] [place] [address] [facility] [place] [address] Olivia Sawyer CRNP [address] [place] [id number] 09/28/2024 1:00 PM EDT Office Visit Endocrinology [address] [place] [phone] Vickie Martines MD [address] [place] [address] 10/16/2024 11:00 AM EDT Office Visit Cardiology, [facility] [address] [place] [address] Silverio Aguirre, [address] [place] [address] 12/25/2024 12:20 PM EDT Office Visit Family Medicine [address] [place] [phone] Joann You PA-C [address] [place] [address] [place] [phone] Pending Results Name Type Priority Associated Diagnoses [...] this encounter Medical Devices Implanted Type Area Chemical Plant Manager Device Identifier Shelf Expiration Date Model / Serial / Lot Dbx 5cc [id number] - [id number] Implanted:Qt y: 1 on 04/22/2022 by Jaspreet Georges MD at OR [facility] Tissue - Human MUSCULOSKELETAL TRANSPLANT FND [id number] 11/22/2023 [id number] / [id number] 19 / LOT NA Vitoss Bimodal Foam Pack 2.5cc - [id number] Implanted:Qt y: 1 on 04/22/2022 by Jaspreet Georges MD at OR [facility] ANATOLIY : SPINE [id number] 04/01/2023 2102- 190 2 / [id number] / [id number] Vitoss Bimodal Foam Pack 2.5cc - [id number] Implanted:Qt y: 1 on 04/22/2022 by Jaspreet Georges MD at OR [facility] ANATOLIY : SPINE [id number] 09/01/2023 2102- 190 2 / [id number] / [id number] Anatoliy [place] Screw Set Implanted:Qt y: 10 on 04/22/2022 by Jaspreet Georges MD at OR [facility] N/A: Spine Cervical 7601-100 Anatoliy [place] 3.5 X 12mm Screw Implanted:Qt y: 4 on 04/22/2022 by Jaspreet Georges MD at OR [facility] N/A: Spine Cervical 7601-035 12 / / Anatoliy [place] 3.5 X 10mm Screw Implanted:Qt y: 3 on 04/22/2022 by Jaspreet Georges MD at OR [facility] N/A: Spine Cervical 7601-035 10 / / [employer] [place] 4.0 X 10mm Screw Implanted:Qt y: 1 on 04/22/2022 by Jaspreet Georges MD at OR [facility] N/A: Spine Cervical 7601-040 10 / / Anatoliy [place] 4.5 X 22mm Screw Implanted:Qt y: 2 on 04/22/2022 by Jaspreet Georges MD at OR [facility] N/A: Spine Cervical 7601-045 22 / / [employer] [place] 3.5 X 75mm [place] Implanted:Qt y: 2 on 04/22/2022 by Jaspreet Georges MD at OR [facility] N/A: Spine Cervical 7601-635 75 [...] Advance Directives occurred with: Patient Care Teams Eeg Technician Relationship Specialty Start Date End Date Vicki Cadet MD [address] [place] [address] [place] [phone] PCP - General Family Medicine 02/01/24 documented as of this encounter
--- OUTSIDE RECORDS SUMMARY | 2024-09-15 05:18 | External Medical Summary | Summary of Care ---
Author Name Unknown Organization [facility] [address] [facility] [address] Phone [phone] Care Team Providers Care Diagnostic Assistant Name Role Phone Vicki Cadet MD Primary Care Prov ider Reason for Visit * Reason Comments Follow Up Pt presents for R 5t h metacarpal fx 1 week f/u Encounter Details Date Type Department Care Team (Late st Contact Info) Description 08/04/2024 10:00 AM EST Office Visit Orthopaedics [facility] [address] [place] [phone] Damaris Ardon PA-C [address] [place] [...] % nasal sprayIndications:All ergic rhinitis Administer 1 Wilmer into nostril 2 times a day. 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[employer] Not on file Not on file Not [...] 3 units given Acute kidney failure, unspecified ([facility]) 02/20/2012 Atrial fibrillation by electrocardiogram ([facility]) 01/06/2023 rate 154 Blood type A+ 12/16/2021 Cardiac anomaly, 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", 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 Celiac disease Celiac disease 05/01/2014 EGD marked changes in duodenum Cervical stenosis of spine 04/23/2020 severe at C5-6 and C6-7 Chronic pancreatitis ([facility]) Colitis due to Escherichia coli 03/12/2017 COPD with emphysema ([facility]) COVID 08/04/2021 admitted [facility] treated with dexamethasone COVID-19 05/05/2022 nasal swab in office Encounter for hepatitis C screening test for low risk patient 08/14/2021 negative Epistaxis 08/16/2017 [facility] acquired methicillin resistant Staphylococcus aureus infection 2000 Hypokalemia Hypothyroidism Intestinal disaccharidase deficiency Iron deficiency anemia Migraine Mitral valve prolapse Motion sickness Obstructive sleep apnea syndrome Paroxysmal tachycardia ([facility]) Pneumonia due to COVID-19 virus 08/04/2021 Dexamethasone but not remdesivir, due to timing. 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 Entered by: Gildardo Finch MD 04/16/2011 [...] Stability Do you currently live in a [place] or have no steady place to sleep [...] performed by Jaspreet Georges MD at OR [facility] ANKLE ARTHROSCOPY/DEBRIDEMENT left CATHETERIZE LEFT HEART THRU SKIN 08/28/2009 [facility], normal COLONOSCOPY 2004 COLONOSCOPY 03/26/2011 biopsies--unremarkable COLONOSCOPY, DIAGNOSTIC (RECTUM) N/A 05/12/2024 hemorrhoids/recall 3 years/COLONOSCOPY FLEXIBLE PROXIMAL DIAGNOSTIC performed by Tarah Wood DO at OR [facility] CT ABDOMEN/PELVIS 03/12/2017 extensive right sided colonic wall thickening, severe colitis. 19 mm left adrenal adenoma ECHO, COMPLETE (2D), TRANS-THORACIC 03/12/2017 borderline conc LVH, EF 60-65% LA normal EGD, FLEXIBLE, DIAGNOSTIC 05/01/2014 active inflammation in duodenum consistent with Sprue, stricture/[place] [facility] [place], FLEXIBLE, DIAGNOSTIC N/A 05/12/2024 diffuse gastritis/duodenal mucosal changes/biopsies celiac disease/ESOPHAGOGASTRODUODENOSCOPY (EGD), FLEXIBLE, TRANSORAL, DIAGNOSTIC performed by Tarah Wood DO at OR [facility] EGD, FLEXIBLE, W/BIOPSY 07/14/2010 biopsies--inflammation from celiac disease EGD, FLEXIBLE, W/BIOPSY 08/11/2012 persistent mild inflammation to small intestine--gluten free diet. EGD, W/ENDOSCOPIC US 08/04/2011 UPPER GI ENDOSCOPY ENDOSCOPIC ULTRASOUND performed by CAIO ANTONIO at ENDOSCOPY [facility] [place] KNEE ARTHROSCOPY, DIAGNOSTIC LAP;EXCISION OF LESIONS [id number] ~6 for endometriosis MISCELLANEOUS ORDER ([facility] ONLY) 1996 left knee arthroscopy MISCELLANEOUS ORDER ([facility] ONLY) 04/2012, 05/2012 repair first and second fingers of left hand NASAL SURGERY PROCEDURE NEC at least 4 nasal/sinus procedures last 1988 NECK SPINE FUSION (CERV, BELOW C2) N/A 04/22/2022 ARTHRODESIS SPINE POSTERIOR CERVICAL performed by Jaspreet Georges MD at OR [facility] OTHER 11/08/2015 single lumen MRI compatible a-port insertion [facility] Dr. Martinez 11/08/2015 RECONSTRUCTION OF NOSE REMOVE ADDED SPINE LAMINA, 1 SEG N/A 04/22/2022 LAMINECTOMY FACETECTOMY AND FORAMINOTOMY ADDITIONAL LEVELS performed by Jaspreet Georges MD at OR [facility] REMOVE GALLBLADDER 1995 REMOVE NECK SPINE LAMINA, 1 SEG N/A 04/22/2022 LAMINECTOMY FACETECTOMY AND FORAMINOTOMY POSTERIOR CERVICAL performed by Jaspreet Georges MD at OR [facility] REPAIR OF NASAL SEPTUM Nasal Septum Repair SLEEP STUDY, W/O CPAP 09/24/2009 sleep apnea 5-15 cm water pressure SPINE FUSION, EACH ADD'L VERTEBRA N/A 04/22/2022 ARTHRODESIS SPINE POSTERIOR EACH ADDITIONAL VERTEBRAE performed by Jaspreet Georges MD at OR [facility] SPINE SEG FIX, POST, 3-6 SEG, INSERT N/A 04/22/2022 POSTERIOR SPINE SEGMENTAL INSTRUMENTATION 3 TO 6 PSF performed by Jaspreet Georges MD at OR [facility] TENDON SHEATH INCISION, FINGER Right 12/08/2017 [...] mildlydisplaced compared to her previous x-rays from [facility]. Awaiting formal radiology interpretation. Assessment and Plan: [...] out of the splint. Damaris Ardon PA-C [facility] [address] [place] [id number] documented in this encounter Nursing Notes * Ana Dietz CMA - 08/04/2024 10:08 AM EST Pt presents for R 5th metacarpal fx 1 week f/u Pt states pain 7/10 today in R 5th metacarpal - Ana Orellana LICENSING SPECIALIST documented in this encounter Plan of Treatment Upcoming Encounters Date Type Department Care Team (Late st Contact Info) Description 08/11/2024 10:30 AM EST Office Visit Orthopaedics [facility] [address] [place] [phone] Damaris Ardon PA-C [address] [place] [phone] 08/25/2024 2:00 PM EST Nutrition Services Nutrition, [facility] [address] [place] [address] Jayshree Rawls RDN [address] [place] [address] 09/08/2024 2:00 PM EST Nurse Only Hematology/Oncology Treatment, [place] [address] [facility], [place] [phone] Tasha, Chair [address] [address] 09/15/2024 2:00 PM EDT Office Visit Hematology/Oncology [facility] [place] [address] [facility] [place] [phone] Olivia Sawyer CRNP [address] [facility] [place] [address] 09/28/2024 1:00 PM EDT Office Visit Endocrinology [address] [place] [phone] Vickie Martines MD [address] [place] [address] 10/16/2024 11:00 AM EDT Office Visit Cardiology, [facility] [address] [place] [address] Silverio Aguirre DO [address] [place] [address] 12/25/2024 12:20 PM EDT Office Visit Family Medicine [address] [place] [phone] Joann You PA-C [address] [place] [address] [place] [id number] Pending Results Name Type Priority Associated Diagnoses [...] this encounter Medical Devices Implanted Type Area Hydraulic Blocker Device Identifier Shelf Expiration Date Model / Serial / Lot Dbx 5cc [id number] - [id number] Implanted:Qt y: 1 on 04/22/2022 by Jaspreet Georges MD at OR [facility] Tissue - Human [employer]OS[employer]LET[employer]ANSPLANT FND [id number] 11/22/2023 [id number] / [id number] 19 / LOT NA Vitoss Bimodal Foam Pack 2.5cc - [id number] Implanted:Qt y: 1 on 04/22/2022 by Jaspreet Georges MD at OR [facility] ANATOLIY : SPINE [id number] 04/01/2023 2102- 190 2 / [id number] / [id number] [employer] Bimodal Foam Pack 2.5cc - [id number] Implanted:Qt y: 1 on 04/22/2022 by Jaspreet Georges MD at OR [facility] ANATOLIY : SPINE [id number] 09/01/2023 2102- 190 2 / [id number] / [id number] [place] Screw Set Implanted:Qt y: 10 on 04/22/2022 by Jaspreet Georges MD at OR [facility] N/A: Spine Cervical 7601-100 [place] 3.5 X 12mm Screw Implanted:Qt y: 4 on 04/22/2022 by Jaspreet Georges MD at OR [facility] N/A: Spine Cervical 7601-035 12 / / [place] 3.5 X 10mm Screw Implanted:Qt y: 3 on 04/22/2022 by Jaspreet Georges MD at OR [facility] N/A: Spine Cervical 7601-035 10 / / [place] 4.0 X 10mm Screw Implanted:Qt y: 1 on 04/22/2022 by Jaspreet Georges MD at OR [facility] N/A: Spine Cervical 7601-040 10 / / [place] 4.5 X 22mm Screw Implanted:Qt y: 2 on 04/22/2022 by Jaspreet Georges MD at OR [facility] N/A: Spine Cervical 7601-045 22 / / [place] 3.5 X 75mm [place] Implanted:Qt [...] Advance Directives occurred with: Patient Care Teams Diagnostic Assistant Relationship Specialty Start Date End Date Vicki Cadet MD [address] [place] [address] [place] [address] PCP - General Family Medicine 02/01/24 documented as of this encounter
--- OUTSIDE RECORDS SUMMARY | 2024-09-15 05:19 | External Medical Summary | Summary of Care ---
Author Name Unknown Organization [facility] Address [address] [facility] [place] [address] Phone [phone] Care Team Providers Care Daycare Director Name Role Phone Vicki Cadet MD Primary Care Prov ider Reason for Visit * Reason Comments NEW PATIENT Left wrist Encounter Details Date Type Department Care Team (Latest Contact Info) Description 07/21/2024 2:00 PM EST Office Visit Orthopaedics [facility] [address] [place] [phone] Damaris Ardon PA-C [address] [place] [phone] Left wrist pain*; Ganglion cyst of joint of finger of left hand [M67.442]; Carpal tunnel syndrome of left wrist; Arthritis of carpometacarpal (CMC) joint of left thumb Allergies Active Allergy Reactions Criticality Noted Date [...] as of this encounter (statuses as of 07/28/2024) Medications MULTIVITAMINS PO TABS 1 TABLET DAILY [...] % nasal sprayIndications:All ergic rhinitis Administer 1 Ragley into nostril 2 times a day. 3 [...] 24 Active Vitamin D (Ergocalciferol) 1.25 MG (42883 UT) Oral Capsule (Drisdol)Indications :Vitamin D deficiency [...] as of this encounter (statuses as of 07/28/2024) Active Problems Problem Noted Date Diagnosed Date [...] was added at 2L on discharge from [facility] 04/26/10 Noct ox CPAP/RA -- <89% 5:12 [...] - Left lingular biopsy at 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 Aspiration of the cyst was performed as follows: Written consent was obtained. An appropriate time out was performed. Betadine prep was used. A 25 gauge needle was placed percutaneously into the cystand a small amount of viscous fluid was expressed. A light dressing was applied. There were no complications. * Damaris Ardon PA-C - 07/21/2024 2:03 PM EST Lucinda Hackett is a 64 year old female who presents for consultation to [facility] for left hand pain/numbness. Consult requested by Vicki Watson MD. Lucinda Hackett is here unaccompanied. History: Chief Complaint Patient presents with NEW PATIENT Left wrist Nursing Notes: Christina Da Silva, SPRING INSPECTOR 07/21/24 1359 Signed Ref by Vicki Watson for ganglion cyst Left wrist. Christina Brito SPRING INSPECTOR Patient is a 64 year old right-hand dominant female with left wrist mass/pain. She reports that shenoticed this approximately 6 months ago and develops pain when lifting her twin boys. She states that she feels that the bump is gotten larger within the last 3 months and within the last 3 weeks shehas developed numbness and tingling in her index and middle finger as well. 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 She reports she did previously injured this hand when it got pushed into a wood splitter; however, she did not have any residual numbness or tingling from this incident. Review of systems: All others negative except those noted above in HPI. 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 Celiac disease Celiac disease 05/01/2014 EGD marked changes in duodenum Cervical stenosis of spine 04/23/2020 severe at C5-6 and C6-7 Chronic pancreatitis ([facility]) Colitis due to Escherichia coli 03/12/2017 COPD with emphysema ([facility]) COVID 08/04/2021 admitted [facility] treated with dexamethasone COVID-19 05/05/2022 nasal swab in office Encounter for hepatitis C screening test for low risk patient 08/14/2021 negative Epistaxis 08/16/2017 [facility] acquired methicillin resistant Staphylococcus aureus infection 2000 Hypokalemia Hypothyroidism Intestinal disaccharidase deficiency Iron deficiency anemia Migraine Mitral valve prolapse Motion sickness Obstructive sleep apnea syndrome Paroxysmal tachycardia (HCC) Pneumonia due to COVID-19 virus 08/04/2021 Dexamethasone but not remdesivir, due to timing. [facility] Postoperative anemia due to acute blood loss [...] (Maternal) Dasha Raygozatrentonrossanashannan Arthritis Grandmother (Maternal) Dasha Raygozacherelle Musculo-skeletal Disorder Grandmother (Maternal) Dasha Ulrichounrtrenton Neurological Disorder Son autism Neurological Disorder Son autism Heart Disorder Son Wilton defects Lung Disorder Son Wilton born at 24 weeks gestation Musculo-skeletal Disorder Son Wilton mild Cerebral Palsy Gastro-intestinal disorder Son Wilton gerd, celiac disease, food allergies Allergies Son Wilton latex, Peanuts, Grass, Rena Lara Asthma Son Wilton COPD, BPD Neurological Disorder [...] 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 Entered by: Gildardo Finch MD 04/16/2011 PULMONARY [...] Stability Do you currently live in a half-way or have no steady place to sleep [...] performed by Jaspreet Georges MD at OR [facility] ANKLE ARTHROSCOPY/DEBRIDEMENT left CATHETERIZE LEFT HEART THRU SKIN 08/28/2009 [facility], normal COLONOSCOPY 2004 COLONOSCOPY 03/26/2011 biopsies--unremarkable COLONOSCOPY, DIAGNOSTIC (RECTUM) N/A 05/12/2024 hemorrhoids/recall 3 years/COLONOSCOPY FLEXIBLE PROXIMAL DIAGNOSTIC performed by Tarah Wood DO at OR [facility] CT ABDOMEN/PELVIS 03/12/2017 extensive right sided [...] performed by Tarah Wood DO at OR [facility] EGD, FLEXIBLE, W/BIOPSY 07/14/2010 biopsies--inflammation from celiac disease EGD, FLEXIBLE, W/BIOPSY 08/11/2012 persistent mild inflammation to small intestine--gluten free diet. EGD, W/ENDOSCOPIC US 08/04/2011 UPPER GI ENDOSCOPY ENDOSCOPIC ULTRASOUND performed by CAIO ANTONIO [place] [facility] [place] ARTHROSCOPY, DIAGNOSTIC LAP;EXCISION OF LESIONS [id number] ~6 for endometriosis MISCELLANEOUS ORDER ([facility] ONLY) 1996 left knee arthroscopy MISCELLANEOUS ORDER ([facility] ONLY) 04/2012, 05/2012 repair first and second fingers of left hand NASAL SURGERY PROCEDURE NEC at least 4 nasal/sinus procedures last 1988 NECK SPINE FUSION (CERV, BELOW C2) N/A 04/22/2022 ARTHRODESIS SPINE POSTERIOR CERVICAL performed by Jaspreet Georges MD at OR [facility] OTHER 11/08/2015 single lumen MRI compatible a-port insertion [facility] Dr. Martinez 11/08/2015 RECONSTRUCTION OF NOSE REMOVE ADDED SPINE LAMINA, 1 SEG N/A 04/22/2022 LAMINECTOMY FACETECTOMY AND FORAMINOTOMY ADDITIONAL LEVELS performed by Jaspreet Georges MD at OR [facility] REMOVE GALLBLADDER 1995 REMOVE NECK SPINE LAMINA, 1 SEG N/A 04/22/2022 LAMINECTOMY FACETECTOMY AND FORAMINOTOMY POSTERIOR CERVICAL performed by Jaspreet Georges MD at OR [facility] REPAIR OF NASAL SEPTUM Nasal Septum Repair SLEEP STUDY, W/O CPAP 09/24/2009 sleep apnea 5-15 cm water pressure SPINE FUSION, EACH ADD'L VERTEBRA N/A 04/22/2022 ARTHRODESIS SPINE POSTERIOR EACH ADDITIONAL VERTEBRAE performed by Jaspreet Georges MD at OR [facility] SPINE SEG FIX, POST, 3-6 SEG, INSERT N/A 04/22/2022 POSTERIOR SPINE SEGMENTAL INSTRUMENTATION 3 TO 6 PSF performed by Jaspreet Georges MD at OR [facility] TENDON SHEATH INCISION, FINGER Right 12/08/2017 Dr Colon TOTAL ABD HYSTERECTOMY W/WO REMOVAL OF TUBE(S) 07/2006 GLENNY BSO US EXTREMITY Left 03/12/2017 no DVT VASC DUPLEX VENOUS LE BILAT Bilateral 01/06/2023 no DVT bilateral popliteal cysts Physical Exam There were no vitals filed for this visit. Estimated body mass index is 19.91 kg/m as calculated from the following: Height as of 06/26/24: 1.626 m (5' 4"). Weight as of 06/26/24: 52.6 kg (116 lb). General: generally well-nourished and in no acute distress HEENT: normocephalic, atraumatic, sclera anicteric. Psych: mood and affect normal , cooperative Heart and lungs okay Skin: no rash, normal, capillary refill less than 2 seconds Neuro: Coordination: normal; Sensation: normal on affected extremity (s) MSK: Hand Exam, Bilateral Inspection: There is a 2 mm mass overlying the 1st carpometacarpal joint. No erythema or ecchymosisnoted. Palpation: Patient is not tender to palpation over the forearm but is tender to palpation over the 1st carpometacarpal joint. No snuff box tenderness. Range of Motion: Range of motion: symmetric and normal in both hands Strength: No intrinsic or extrinsic weakness noted at this time. Special tests: CMC grind positive Phalen and Tinel positive Sensory deficit within the median nerve region of the left hand and loss of 2 point discrimination Radiology: I have personally reviewed the hand films. Per my interpretation, there is no evidence of associated or incidental soft tissue damage. The cortices of the first through fifth metacarpals appear to be intact without injury to the joint surfaces. The phalanxes appear intact without bony fra gments. The digits appear to be in proper alignment when assessed from the metacarpal to the distalphalanx. There is notable arthritis of the 1st carpometacarpal joint with sclerosis, narrowing and osteophyte formation. Awaiting formal radiology interpretation. Assessment and Plan: 1) Left carpal tunnel syndrome, Trapeziometacarpal arthritis, Ganglion cyst Patient is informed that she has a few issues going on including carpal tunnel syndrome as well as a ganglion cyst which is likely due to her basal joint arthritis. Patient was educated via discussion and films regarding all 3 of her diagnoses. Patient is given the option of splinting for her carpal tunnel to which she is agreeable. Patient was provided with a thumb spica at this time and was advised to wear the splint at nighttime. She is informed that the next step for carpal tunnel syndrome would be a Decadron injection since she is prediabetic. Patient was also assessed by Dr. Rdz who completed a cyst aspiration at patient's request. Patient was provided with the options regarding her ganglion cyst likely secondary to basal joint arthritis and is informed that should she pursue surgery down the road that her carpal tunnel may be released at the same time. Patient is given the option of follow up in 4 weeks to re-evaluate her carpal tunnel syndrome to which she is agreeable. Patient is advised to contact the office in the meantime with any new or worsening symptoms as well as any questions or concerns to which she is agreeable. I have provided a significant and separately identifiable visit with today's procedure because there were multiple complex differential diagnoses for this patient, including left carpal tunnel syndrome, basal joint arthritis, ganglion cyst . Patient to follow up in [address] [facility] [address] [place] [id number] documented in this encounter Nursing Notes * Christina Da Silva LPN - 07/21/2024 1:59 PM EST Ref by Vicki Watson for ganglion cyst Left wrist. Christina Brito LPN documented in this encounter Miscellaneous Notes * Addendum Note - Ana Dietz CMA - 07/28/2024 12:40 PM ESTAddended by: ANA DIETZ on: 07/28/2024 12:40 PM Modules accepted: Orders documented in this encounter Plan of Treatment Upcoming Encounters Date Type Department Care Team (Late st Contact Info) Description 08/02/2024 10:00 AM EST Office Visit Orthopaedics [facility] [address] [place] [phone] Damaris Ardon PA-C [address] [place] [phone] 08/25/2024 2:00 PM EST Nutrition Services Nutrition, [facility] [address] [facility] [place] [phone] Jayshree Rawls, BOONE [address] [facility] [place] [address] 09/08/2024 2:00 PM EST Nurse Only Hematology[facility]Oncology [facility], [place] [address] [facility] [phone] Tasha, Chair [address] [facility] On[address] [place] [address] 09/15/2024 2:00 PM EDT Office Visit [address]cology [address] [phone] Olivia Sawyer CRNP [address] [place] [phone] 09/28/2024 1:00 PM EDT Office Visit Endocrinology [address] [place], [place] [phone] Vickie Martines MD [address] [phone] 10/16/2024 11:00 AM EDT Office Visit Cardiology, [facility] [address] [facility] [place] [address] Silverio Aguirre, [address] [facility] [place] [address] 12/25/2024 12:20 PM EDT Office Visit Family Medicine [address] [place] [phone] Joann You PA-C [address] [place] [address] [place] [phone] Scheduled Procedures Name Priority Associated Diagnoses Date/Ti [...] this encounter Medical Devices Implanted Type Area Patch Press Operator Device Identifier Shelf Expiration Date Model / Serial / Lot Dbx 5cc [id number] - [id number] Implanted:Qt y: 1 on 04/22/2022 by Jaspreet Georges MD at OR [facility] Tissue - Human MUSCULOSKELETAL TRANSPLANT FND [id number] 11/22/2023 [id number] / [id number] / LOT NA Vitoss Bimodal Foam Pack 2.5cc - [id number] Implanted:Qt y: 1 on 04/22/2022 by Jaspreet Georges MD at OR [facility] ANATOLIY : SPINE [id number] 04/01/20232101- 2 / [id number] / [id number] Vitoss Bimodal Foam Pack 2.5cc - [id number] Implanted:Qt y: 1 on 04/22/2022 by Jaspreet Georges MD at OR [facility] ANATOLIY : SPINE [id number] 09/01/2023 2 / [id number] / [id number] Anatoliy [place] Screw Set Implanted:Qt y: 10 on 04/22/2022 by Jaspreet Georges MD at OR [facility] N/A: Spine Cervical 7601-100 01 / / Anatoliy [place] 3.5 X 12mm Screw Implanted:Qt y: 4 on 04/22/2022 by Jaspreet Georges MD at OR [facility] N/A: Spine Cervical 7601-035 12 / / Anatoliy [place] 3.5 X 10mm Screw Implanted:Qt y: 3 on 04/22/2022 by Jaspreet Georges MD at OR [facility] N/A: Spine Cervical 7601-035 10 / / Anatoliy [place] 4.0 X 10mm Screw Implanted:Qt y: 1 on 04/22/2022 by Jaspreet Georges MD at OR [facility] N/A: Spine Cervical 7601-040 10 / / [place] 4.5 X 22mm Screw Implanted:Qt y: 2 on 04/22/2022 by Jaspreet Georges MD at OR [facility] N/A: Spine Cervical 7601-045 22 / / [place] 3.5 X 75mm [place] Implanted:Qt y: 2 on 04/22/2022 by Jaspreet Georges MD at OR [facility] N/A: Spine Cervical 7601-635 75 / / documented as of this encounter Procedures Procedure Name Priority Date/Time Associated Diagnosis Comments XR WRIST 3 OR MORE VIEWS Routine 07/21/2024 2:45 PM EST Left wrist pain documented in this encounter Results * XR WRIST 3 OR MORE VIEWS (07/21/2024 2:45 PM EST) Anatomical Region Laterality Modality Upper Extremity, Wrist Digital R adiography 07/23/2024 2:57 PM EST Impressions 07/23/2024 2:54 PM EST IMPRESSION 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 Narrative 07/23/2024 2:54 PM EST EXAM Left wrist-07/21/2024 2:45 pm HISTORY left wrist pain COMPARISON No Comparison. TECHNIQUE Three views FINDINGS Mild triscaphe and severe 1st CMC osteoarthritis. No evidence for acute fracture or dislocation. Procedure Note Huey Kilgore, DO - 07/23/2024 EXAM Left wrist-07/21/2024 2:45 pm HISTORY left wrist pain COMPARISON No Comparison. TECHNIQUE Three views FINDINGS Mild triscaphe and severe 1st CMC osteoarthritis. No evidence for acutefracture or dislocation. 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 us Damaris Ardon PA-C RADIOLOGY ([facility]) Fin al Result documented in this encounter Visit Diagnoses Diagnosis Left wrist pain- Primary Pain in joint, forearm Ganglion cyst of joint of finger of left hand [M67.442] Carpal tunnel syndrome of left wrist Carpal tunnel syndrome Arthritis of carpometacarpal (CMC) joint of left thumb documented in this encounter Advance Directives * [...] Advance Directives occurred with: Patient Care Teams Daycare Director Relationship Specialty Start Date End Date Vicki Cadet MD [address] [place] [address] [place] [phone] PCP - General Family Medicine 02/01/24 documented as of this encounter
--- OUTSIDE RECORDS SUMMARY | 2024-09-15 05:19 | External Medical Summary | Summary of Care ---
Author Name Unknown Organization [facility] [address] [facility] [address] Phone [phone] Care Team Providers Care Cow Puncher Name Role Phone Vicki Cadet MD Primary Care Prov ider Reason for Visit * Reason Comments New Problem Right wrist Encounter Details Date Type Department Care Team (Late st Contact Info) Description 07/27/2024 2:00 PM EST Office Visit Orthopaedics [facility] [address] [place] [phone] Damaris Ardon PA-C [address] [place] [...] as of this encounter (statuses as of 07/27/2024) Medications MULTIVITAMINS PO TABS 1 TABLET DAILY [...] % nasal sprayIndications:All ergic rhinitis Administer 1 [place] into nostril 2 times a day. 3 [...] 24 Active Vitamin D (Ergocalciferol) 1.25 MG (15137 UT) Oral Capsule (Drisdol)Indications :Vitamin D deficiency [...] as of this encounter (statuses as of 07/27/2024) Active Problems Problem Noted Date Diagnosed Date [...] was added at 2L on discharge from [facility] 04/26/10 Noct ox CPAP/RA -- <89% [...] (9-67) 12/30/99 - Left lingular biopsy at [facility] s/t frequent URI and nodularity [...] as of this encounter (statuses as of 07/27/2024) Resolved Problems Problem Noted Date Diagnosed Date [...] as of this encounter (statuses as of 07/27/2024) Immunizations Name Administration Dates Next Due Pneumococcal [...] file Not on file 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 Consult requested by [facility] ED. Lucinda Hackett is here unaccompanied. History: Chief Complaint Patient presents with New Problem Right wrist Nursing Notes: Lili Smith CMA 07/27/24 1341 Signed Chief Complaint Patient presents [...] 4 weeks. Patient was then seen at [facility] ER on 07/24/2024 status post [...] and right thumb. She reports that she went to the ER on Wednesday who told her that she had a fracture so she was splinted. She reports that they prescribed her hydrocodone which she has been taking. She reports some numbness and tingling in her index and middle fingers. She reports that she has osteoporosis and Jasmina-Danlos syndrome. Review of systems: All others negative except those noted above in HPI. 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 Celiac disease Celiac disease 05/01/2014 EGD marked changes in duodenum Cervical stenosis of spine 04/23/2020 severe at C5-6 and C6-7 Chronic pancreatitis (HCC) Colitis due to Escherichia coli 03/12/2017 COPD with emphysema (HCC) COVID 08/04/2021 admitted [facility] treated with dexamethasone COVID-19 05/05/2022 nasal swab in office Encounter for hepatitis C screening test for low risk patient 08/14/2021 negative Epistaxis 08/16/2017 [facility] ER Hospital acquired methicillin resistant Staphylococcus aureus infection 2000 Hypokalemia Hypothyroidism Intestinal disaccharidase deficiency Iron deficiency anemia Migraine Mitral valve prolapse Motion sickness Obstructive sleep apnea syndrome Paroxysmal tachycardia (HCC) Pneumonia due to COVID-19 virus 08/04/2021 Dexamethasone but not remdesivir, due to timing. 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 Entered by: Gildardo Finch MD 04/16/2011 PULMONARY [...] Stability Do you currently live in a nursing home or have no steady place to sleep [...] performed by Jaspreet Georges MD at [facility] ANKLE ARTHROSCOPY/DEBRIDEMENT left CATHETERIZE LEFT HEART THRU SKIN 08/28/2009 [facility], normal COLONOSCOPY 2004 COLONOSCOPY 03/26/2011 biopsies--unremarkable COLONOSCOPY, DIAGNOSTIC (RECTUM) N/A 05/12/2024 hemorrhoids/recall 3 years/COLONOSCOPY FLEXIBLE PROXIMAL DIAGNOSTIC performed by Tarah Wood DO at [facility] CT ABDOMEN/PELVIS 03/12/2017 extensive right sided colonic wall thickening, severe colitis. 19 mm left adrenal adenoma ECHO, COMPLETE (2D), TRANS-THORACIC 03/12/2017 borderline conc LVH, EF 60-65% LA normal EGD, FLEXIBLE, DIAGNOSTIC 05/01/2014 active inflammation in duodenum consistent with Sprue, stricture/done @ [facility] EGD, FLEXIBLE, DIAGNOSTIC N/A 05/12/2024 diffuse gastritis/duodenal mucosal changes/biopsies celiac disease/ESOPHAGOGASTRODUODENOSCOPY (EGD), FLEXIBLE, TRANSORAL, DIAGNOSTIC performed by Tarah Wood DO at [facility] EGD, FLEXIBLE, W/BIOPSY 07/14/2010 biopsies--inflammation from celiac disease EGD, FLEXIBLE, W/BIOPSY 08/11/2012 persistent mild inflammation to small intestine--gluten free diet. EGD, W/ENDOSCOPIC US 08/04/2011 UPPER GI ENDOSCOPY ENDOSCOPIC ULTRASOUND performed by CAIO ANTONIO at ENDOSCOPY [facility] KNEE ARTHROSCOPY, DIAGNOSTIC LAP;EXCISION OF LESIONS [phone] ~ for endometriosis MISCELLANEOUS ORDER ([facility] ONLY) 1996 left knee arthroscopy MISCELLANEOUS ORDER ([facility] ONLY) 04/2012, 05/2012 repair first and second fingers of left hand NASAL SURGERY PROCEDURE NEC at least 4 nasal/sinus procedures last 1988 NECK SPINE FUSION (CERV, BELOW C2) N/A 04/22/2022 ARTHRODESIS SPINE POSTERIOR CERVICAL performed by Jaspreet Georges MD at [facility] OTHER 11/08/2015 single lumen MRI compatible a-port insertion [facility] Dr. Martinez 11/08/2015 RECONSTRUCTION OF NOSE REMOVE ADDED SPINE LAMINA, 1 SEG N/A 04/22/2022 LAMINECTOMY FACETECTOMY AND FORAMINOTOMY ADDITIONAL LEVELS performed by Jaspreet Georges MD at [facility] REMOVE GALLBLADDER 1995 REMOVE NECK SPINE LAMINA, 1 SEG N/A 04/22/2022 LAMINECTOMY FACETECTOMY AND FORAMINOTOMY POSTERIOR CERVICAL performed by Jaspreet Georges MD at [facility] REPAIR OF NASAL SEPTUM Nasal Septum Repair SLEEP STUDY, W/O CPAP 09/24/2009 sleep apnea 5-15 cm water pressure SPINE FUSION, EACH ADD'L VERTEBRA N/A 04/22/2022 ARTHRODESIS SPINE POSTERIOR EACH ADDITIONAL VERTEBRAE performed by Jaspreet Georges MD at [facility] SPINE SEG FIX, POST, 3-6 SEG, INSERT N/A 04/22/2022 POSTERIOR SPINE SEGMENTAL INSTRUMENTATION 3 TO 6 PSF performed by Jaspreet Georges MD at [facility] TENDON SHEATH INCISION, FINGER Right 12/08/2017 Dr Colon TOTAL ABD HYSTERECTOMY W/WO REMOVAL OF TUBE(S) 07/2006 [facility] US EXTREMITY Left 03/12/2017 no DVT [...] have personally reviewed the hand films through [employer]. Per my interpretation, there is a fracture [...] agreeable. Patient to follow up next Wednesday. VENESSA Chavez [facility] [address] [facility] [place] [id number] documented in this encounter Nursing Notes * [...] Description 08/02/2024 10:00 AM EST Office Visit [facility] [address] [place] [phone] Damaris Ardon PA-C [address] [place] [phone] 08/25/2024 2:00 PM EST Nutrition Services Nutrition, [facility] [address] [facility] [place] [address] Jayshree Rawls, BOONE [address] [facility] [place] [address] 09/08/2024 2:00 PM EST Nurse Only Hematology/Oncology Treatment, [place] [address] [facility] [address] Tasha, Chair 11 Hem On[address] [place] [address] 09/15/2024 2:00 PM EDT Office Visit Hematology/Oncology [address] [phone] Olivia Sawyer CRNP [address] [place] [phone] 09/28/2024 1:00 PM EDT Office Visit Endocrinology [address] [place], [place] [phone] Vickie Martines MD [address] [place] [address] [phone] 10/16/2024 11:00 AM EDT Office Visit Cardiology, [facility] [address] [facility] [place] [address] Silverio Aguirre O, DO [address] [facility] [place] [address] 12/25/2024 12:20 PM EDT Office Visit Family Medicine [address] [place] [phone] Joann You PA-C [address] [place] [address] [place] [phone] Scheduled Procedures Name Priority Associated Diagnoses Date/Ti [...] this encounter Medical Devices Implanted Type Area Human Resources Training Manager Device Identifier Shelf Expiration Date Model / Serial / Lot Dbx 5cc [id number] - [id number] Implanted:Qt y: 1 on 04/22/2022 by Jaspreet Georges MD at [facility] Tissue - Human MUSCULOSKELETAL TRANSPLANT FND [id number] 11/22/2023 [id number] / [id number] 19 / LOT NA Vitoss Bimodal Foam Pack 2.5cc - [id number] Implanted:Qt y: 1 on 04/22/2022 by Jaspreet Georges MD at [facility] ANATOLIY : SPINE [id number] 04/01/2023 2 / [id number] / [id number] Vitoss Bimodal Foam Pack 2.5cc - [id number] Implanted:Qt y: 1 on 04/22/2022 by Jaspreet Georges MD at [facility] ANATOLIY : SPINE [id number] 09/01/2023 2 / [id number] / [id number] [place] Screw Set Implanted:Qt y: 10 on 04/22/2022 by Jaspreet Georges MD at [facility] N/A: Spine Cervical 7601-100 01 / / [place] 3.5 X 12mm Screw Implanted:Qt y: 4 on 04/22/2022 by Jaspreet Georges MD at [facility] N/A: Spine Cervical 7601-035 12 / / An[place] 3.5 X 10mm Screw Implanted:Qt y: 3 on 04/22/2022 by Jaspreet Georges MD at [facility] N/A: Spine Cervical 7601-035 10 / / An[place] 4.0 X 10mm Screw Implanted:Qt y: 1 on 04/22/2022 by Jaspreet Georges MD at [facility] N/A: Spine Cervical 7601-040 10 / / An[place] 4.5 X 22mm Screw Implanted:Qt y: 2 on 04/22/2022 by Jaspreet Georges MD at [facility] N/A: Spine Cervical 7601-045 22 / / [place] 3.5 X 75mm [place] Implanted:Qt y: 2 on 04/22/2022 by Jaspreet Georges MD at [facility] N/A: Spine Cervical 7601-635 75 / [...] Advance Directives occurred with: Patient Care Teams Cow Puncher Relationship Specialty Start Date End Date Vicki Cadet MD [address] [place] [address] [place] [phone] PCP - General Family Medicine 02/01/24 documented as of this encounter
--- OUTSIDE RECORDS SUMMARY | 2024-09-15 05:19 | External Medical Summary | Summary of Care ---
Author Name Unknown Organization [facility] Address [address] [facility] [address] Phone [phone] Care Team Providers Care Prosthetic Dentist Name Role Phone Vicki Cadet MD Primary Care Prov ider Reason for Visit * Reason Comments New Problem Right wrist Encounter Details Date Type Department Care Team (Late st Contact Info) Description 07/27/2024 2:00 PM EST Office Visit Orthopaedics [facility] [address] [place] [phone] Damaris Ardon PA-C [address] [place] [...] % nasal sprayIndications:All ergic rhinitis Administer 1 [place] into nostril 2 times a day. 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 Consult requested by [facility] ED. Lucinda Hackett is here unaccompanied. History: [...] 4 weeks. 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 Celiac disease Celiac disease 05/01/2014 EGD marked changes in duodenum Cervical stenosis of spine 04/23/2020 severe at C5-6 and C6-7 Chronic pancreatitis (HCC) Colitis due to Escherichia coli 03/12/2017 COPD with emphysema ([facility]) COVID 08/04/2021 admitted [facility] treated with dexamethasone COVID-19 05/05/2022 nasal swab in office Encounter for hepatitis C screening test for low risk patient 08/14/2021 negative Epistaxis 08/16/2017 [facility] ER Hospital acquired methicillin resistant Staphylococcus aureus infection 2000 Hypokalemia Hypothyroidism Intestinal disaccharidase deficiency Iron deficiency anemia Migraine Mitral valve prolapse Motion sickness Obstructive sleep apnea syndrome Paroxysmal tachycardia (HCC) Pneumonia due to COVID-19 virus 08/04/2021 Dexamethasone but not remdesivir, due to timing. [facility] Postoperative anemia due to acute blood loss [...] Dasha Nitin Musculo-skeletal Disorder Grandmother (Maternal) Dasha Taveras Neurological Disorder Son autism Neurological Disorder Son autism Heart Disorder Son [place] defects Lung Disorder Ralph Núñez born at 24 weeks gestation Musculo-skeletal Disorder Son [place] mild Cerebral Palsy Gastro-intestinal disorder Son [place] gerd, celiac disease, food allergies Allergies Son [place] latex, Peanuts, Grass, [place] Asthma Son [place] COPD, BPD Neurological Disorder Son [place] Autistic, ADD with poor impulse control Allergies Son Live Meas. Dust, Mold n Grass Asthma Son Live [place]. childhood Neurological Disorder Son [place]. 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 Entered by: Gildardo Finch MD 04/16/2011 PULMONARY [...] performed by Jaspreet Georges MD at OR [facility] ANKLE ARTHROSCOPY/DEBRIDEMENT left CATHETERIZE LEFT HEART THRU SKIN 08/28/2009 [facility], normal COLONOSCOPY 2004 COLONOSCOPY 03/26/2011 biopsies--unremarkable COLONOSCOPY, DIAGNOSTIC (RECTUM) N/A 05/12/2024 hemorrhoids/recall 3 years/COLONOSCOPY FLEXIBLE PROXIMAL DIAGNOSTIC performed by Tarah Wood DO at OR [facility] CT ABDOMEN/PELVIS 03/12/2017 extensive right sided colonic wall thickening, severe colitis. 19 mm left adrenal adenoma ECHO, COMPLETE (2D), TRANS-THORACIC 03/12/2017 borderline conc LVH, EF 60-65% LA normal EGD, FLEXIBLE, DIAGNOSTIC 05/01/2014 active inflammation in duodenum consistent with Sprue, stricture/done @ [facility] EGD, FLEXIBLE, DIAGNOSTIC N/A 05/12/2024 diffuse gastritis/duodenal mucosal changes/biopsies celiac disease/ESOPHAGOGASTRODUODENOSCOPY (EGD), FLEXIBLE, TRANSORAL, DIAGNOSTIC performed by Tarah Wood DO at OR [facility] EGD, FLEXIBLE, W/BIOPSY 07/14/2010 biopsies--inflammation from celiac disease EGD, FLEXIBLE, W/BIOPSY 08/11/2012 persistent mild inflammation to small intestine--gluten free diet. EGD, W/ENDOSCOPIC US 08/04/2011 UPPER GI ENDOSCOPY ENDOSCOPIC ULTRASOUND performed by CAIO ANTONIO at ENDOSCOPY [facility] KNEE ARTHROSCOPY, DIAGNOSTIC LAP;EXCISION OF LESIONS [phone] ~ for endometriosis MISCELLANEOUS ORDER ([facility] ONLY) 1996 left knee arthroscopy MISCELLANEOUS ORDER ([facility] ONLY) 04/2012, 05/2012 repair first and second fingers of left hand NASAL SURGERY PROCEDURE NEC at least 4 nasal/sinus procedures last 1988 NECK SPINE FUSION (CERV, BELOW C2) N/A 04/22/2022 ARTHRODESIS SPINE POSTERIOR CERVICAL performed by Jaspreet Georges MD at OR [facility] OTHER 11/08/2015 single lumen MRI compatible a-port insertion [facility] Dr. Martinez 11/08/2015 RECONSTRUCTION OF NOSE REMOVE ADDED SPINE LAMINA, 1 SEG N/A 04/22/2022 LAMINECTOMY FACETECTOMY AND FORAMINOTOMY ADDITIONAL LEVELS performed by Jaspreet Georges MD at OR [facility] REMOVE GALLBLADDER 1995 REMOVE NECK SPINE LAMINA, 1 SEG N/A 04/22/2022 LAMINECTOMY FACETECTOMY AND FORAMINOTOMY POSTERIOR CERVICAL performed by Jaspreet Georges MD at OR [facility] REPAIR OF NASAL SEPTUM Nasal Septum Repair SLEEP STUDY, W/O CPAP 09/24/2009 sleep apnea 5-15 cm water pressure SPINE FUSION, EACH ADD'L VERTEBRA N/A 04/22/2022 ARTHRODESIS SPINE POSTERIOR EACH ADDITIONAL VERTEBRAE performed by Jaspreet Georges MD at OR [facility] SPINE SEG FIX, POST, 3-6 SEG, INSERT N/A 04/22/2022 POSTERIOR SPINE SEGMENTAL INSTRUMENTATION 3 TO 6 PSF performed by Jaspreet Georges MD at OR [facility] TENDON SHEATH INCISION, FINGER Right 12/08/2017 Dr Colon TOTAL ABD HYSTERECTOMY W/WO REMOVAL OF TUBE(S) 07/2006 [facility] BSO US EXTREMITY Left 03/12/2017 no DVT [...] have personally reviewed the hand films through [employer]. Per my interpretation, there is a fracture [...] to follow up next Wednesday. VENESSA Chavez [facility] [address] [facility] [place] [id number] documented in this encounter Nursing Notes * [...] 08/02/2024 10:00 AM EST Office Visit Orthopaedics [facility] [address] [place] [phone] Damaris Ardon PA-C [address] [place] [phone] 08/25/2024 2:00 PM EST Nutrition Services Nutrition, [facility] [address] [facility] [place] [address] Jayshree Rawls, BOONE [address] [facility] [place] [address] 09/08/2024 2:00 PM EST Nurse Only Hematology/Oncology Treatment, [place] [address] [facility] [address] Tasha, Chair 11 Hem On[address] [place] [address] 09/15/2024 2:00 PM EDT Office Visit Hematology/Oncology [address] [phone] Olivia Sawyer CRNP [address] [place] [address] [phone] 09/28/2024 1:00 PM EDT Office Visit Endocrinology [address] [place] [phone] Vickie Martines MD [address] [phone] 10/16/2024 11:00 AM EDT Office Visit Cardiology, [facility] [address] [facility] [place] [address] Silverio Aguirre O, DO [address] [facility] [place] [address] 12/25/2024 12:20 PM EDT Office Visit Family Medicine [address] [place] [phone] Joann You PA-C [address] [place] [address] [place] [phone] Scheduled Procedures Name Priority Associated Diagnoses Date/Ti [...] this encounter Medical Devices Implanted Type Area Teamsite Developer Device Identifier Shelf Expiration Date Model / Serial / Lot Dbx 5cc [id number] - [id number] Implanted:Qt y: 1 on 04/22/2022 by Jaspreet Georges MD at OR [facility] Tissue - Human MUSCULOSKELETAL TRANSPLANT FND [id number] 11/22/2023 [id number] / [id number] 19 / LOT NA Vitoss Bimodal Foam Pack 2.5cc - [id number] Implanted:Qt y: 1 on 04/22/2022 by Jaspreet Georges MD at OR [facility] ANATOLIY : SPINE [id number] 04/01/2023 2 / [id number] / [id number] Vitoss Bimodal Foam Pack 2.5cc - [id number] Implanted:Qt y: 1 on 04/22/2022 by Jaspreet Georges MD at OR [facility] ANATOLIY : SPINE [id number] 09/01/2023 2 / [id number] / [id number] Anatoliy [place] Screw Set Implanted:Qt y: 10 on 04/22/2022 by Jaspreet Georges MD at OR [facility] N/A: Spine Cervical 7601-100 01 / / Anatoliy [place] 3.5 X 12mm Screw Implanted:Qt y: 4 on 04/22/2022 by Jaspreet Georges MD at OR [facility] N/A: Spine Cervical 7601-035 12 / / [place] 3.5 X 10mm Screw Implanted:Qt y: 3 on 04/22/2022 by Jaspreet Georges MD at OR [facility] N/A: Spine Cervical 7601-035 10 / / [employer] [place] 4.0 X 10mm Screw Implanted:Qt y: 1 on 04/22/2022 by Jaspreet Georges MD at OR [facility] N/A: Spine Cervical 7601-040 10 / / [employer] [place] 4.5 X 22mm Screw Implanted:Qt y: 2 on 04/22/2022 by Jaspreet Georges MD at OR [facility] N/A: Spine Cervical 7601-045 22 / / [employer] [place] 3.5 X 75mm [place] Implanted:Qt y: 2 on 04/22/2022 by Jaspreet Georges MD at OR [facility] N/A: Spine Cervical 7601-635 75 [...] Advance Directives occurred with: Patient Care Teams Prosthetic Dentist Relationship Specialty Start Date End Date Vicki Cadet MD [address] [place] [address] [place] [phone] PCP - General Family Medicine 02/01/24 documented as of this encounter
[2024-09-15] MEDS: LEVOTHYROXINE SODIUM 100 MCG TABLET PO SCH (05:50)
[2024-09-15 06:10] LABS: Basophils # (auto) 0.02 K/uL (0.00-0.20); Basophils % (auto) 0.6 %; Eosinophils # (auto) 0.02 K/uL (0.00-0.50); Eosinophils % (auto) 0.6 %; Hematocrit (blood only) 35.2 % (37.0-47.0); Hemoglobin 11.1 g/dl (12.0-16.0); Lymphocytes # (auto) 0.67 K/uL (1.20-3.40); Lymphocytes % (auto) 21.5 %; Mean Corpuscular Hemoglobin 33.4 pg (25.0-34.0); Mean Corpuscular Hgb Conc 31.5 g/dL (32.0-36.0); Mean Platelet Volume 9.8 fL (9.4-12.4); Monocytes # (auto) 0.27 K/uL (0.11-0.59); Monocytes % (auto) 8.7 %; Neutrophils # (auto) 2.14 K/uL (1.40-6.50); Neutrophils % (auto) 68.6 %; Platelet Count 268 K/uL (130-400); RDW Coefficient of Variation 15.7 % (11.5-14.5); RDW Standard Deviation 61.9 fL (36.4-46.3); Red Blood Count 3.32 M/uL (4.20-5.40); White Blood Count 3.12 K/ul (4.8-10.8)
[2024-09-15 06:13] LABS: BUN Creatinine Ratio 23.1 (10-20); Calcium 8.9 mg/dl (8.6-10.3); Creatinine Clr Calc Pharmacy 90.7 ml/min; Magnesium 1.9 mg/dl (1.7-2.4); Potassium 3.5 mmol/L (3.5-5.1)
[2024-09-15] MEDS: MIDODRINE HCL 2.5 MG TAB PO SCH (06:24)
[2024-09-15] MEDS: ONDANSETRON INJ 2 MG/ML 2 ML VIAL IV PRN (08:51)
[2024-09-15] MEDS: FLUTICASONE/VILANTEROL 200/25MCG 14 PUFFS/INHALER INH SCH (09:16)
[2024-09-15] MEDS: FLUTICASONE PROPIONATE NA SPR 16 GM BTL SCH (09:16)
[2024-09-15] MEDS: AZELASTINE HCL 0.1% NASAL 200 SPRAYS/27,400 MCG BTL SCH (09:17)
[2024-09-15] MEDS: ACETAMINOPHEN 325 MG TAB PO PRN (09:21)
[2024-09-15] MEDS: TRIAMCINOLONE ACET 0.1% CR 15 GM TUBE TOP SCH (09:22)
[2024-09-15] MEDS: LORazepam 0.5 MG TAB PO STA (09:57)
--- NOTE | 2024-09-15 10:13 | Gastrointestinal Consultation ---
Date of Consultation September 15, 2024 Assessment & Plan (1) Abdominal pain: 64 year old female with history of paroxysmal A-fib, recurrent anemia, celiac disease, asthma, COPD, CYNTHIA on CPAP, hyperlipidemia, hypothyroidism, pancreas divisum, hypothyroidism, chronic pancreatitis, irritable bowel syndrome, GERD, CKD, migraines and others below admitted through the ED w/ upper abd pain LFTs are unremarkable, CT w/ interval worsening of bile duct dilatation up to 13mm, mild small bowel wall thickening, raising the possibility of infectious enteritis or inflammatory bowel disease. She had EGD/Colonoscopy in May without findings of inflammatory bowel disease 1. History of celiac disease - Dietary compliance is unclear - Check TTG IGA 2. Biliary dilation - Agree w/ MRCP - EUS in 2011 showed CBD 9mm 3. Enteritis on imaging - Check stool studies if she develops diarrhea Continue supportive measures w/ NPO for bowel rest, IV fluids. Antiemetics PRN.Continue PPI at current dose. Continue home bowel regimen. I spent a total of 60 minutes on the date of service in review of patient's record, and p juan david obtained information in person and appropriate medical visit, discussion and education of plan, with patient and/or caregiver, placing orders for tests/referral/procedures as medically necessary and documentation of pertinent clinical information in patient's medical records for their visit today.Thank you for allowing us to participate in the care of this patient. Please call with any acute changes, questions or concerns. Please see addendum below with additional recommendation from my supervising physician. Supervising Physician Co-Signing Physician Notes I personally saw and examined the patient. I have reviewed the chart and agree with the documentation provided by the PUBLIC HEALTH INSPECTOR including discussion about the assessment, treatment and plan. Briefly, 64 year old female with history of paroxysmal A-fib, recurrent anemia, celiac disease, asthma, COPD, CYNTHIA on CPAP, hyperlipidemia, hypothyroidism, pancreas divisum, hypothyroidism, chronic pancreatitis, irritable bowel syndrome, GERD, CKD, migraines and others below admitted through the ED w/ upper abd pain LFTs are unremarkable, CT w/ interval worsening of bile duct dilatation up to 13mm, mild small bowel wall thickening, raising the possibility of infectious enteritis or inflammatory bowel disease. She had EGD/Colonoscopy in May without findings of inflammatory bowel disease. Findings did show that she had celiac disease but that is chronic and she has had some noncompliance with her diet. I agree with checking a TTG and IgA. Her MRCP here showed was unremarkable without any choledocholithiasis noted she does have history of pancreatic divisum. At this point I would just treat her supportively as I think she has infectious enteritis that is slowly getting better. I would make sure she has a bowel movement with her persistent MiraLAX. I would start a full liquid diet and advance to soft solids tomorrow. She can follow-up with [facility]. There is no role for repeat EGD or endoluminal evaluation. History of Present Illness Reason for Consultation: abdominal pain Requesting Physician: Fabrizio Sanches MD Attending Physician: Fabrizio Sanches MD History of Present Illness 64 year old female with history of paroxysmal A-fib, recurrent anemia, celiac disease, asthma, COPD, CYNTHIA on CPAP, hyperlipidemia, hypothyroidism, pancreas divisum, hypothyroidism, chronic pancreatitis, irritable bowel syndrome, GERD, CKD, migraines and others below admitted through the ED w/ upper abd pain. GI was asked to evaluate. Suggests symptoms started a few days ago with upper abd pain. Suggests two members of her family were sick with GI illness and she thought this could be related but she never developed nausea/vomiting. Pain has been fairly constant. Epigastric in location. Occasionally radiated to her back. Some nausea. Some reflux. No report of black or bloody stools. MRCP: ordered, not obtained CTAP 2024: Interval worsening of bile duct dilatation. This could be due to the postcholecystectomy state, though the dilatation is greater than typically seen. No clear obstructing lesion is seen. ERCP or MRCP could be considered for further evaluation Possible mild small bowel wall thickening, raising the possibility of infectious enteritis or inflammatory bowel disease EGD 2023: Normal esophagus. Z-line regular, 35 cm from the incisors.Diffuse gastritis. Biopsied.Duodenal mucosal changes seen, suspicious for celiac disease. Biopsied. Colonoscopy 2023: The examined portion of the ileum was normal. Internal hemorrhoids. The examination was otherwise normal. No specimens collected. EUS 2011: Dilated CBD 9 mm s/p cholecystectomy. No stones/sludge. Normal pancreas. EUS findings suspicious for pancreas divisum. Non dilated PD. Normal left adrenal gland. No abnormal lymphadenopathy. Duodenal mucosal changes, suspicious for celiacdisease. This was biopsied.Retained gastric/duodenal food contents. Allergies Allergy/AdvReac Type Severity Reaction Status Date / Time bee venom protein (honey bee) Allergy Severe ANAPHYLAXIS Verified 01/27/24 19:35 coconut Allergy Severe RASH; SOB Verified 01/27/24 19:35 gluten Allergy Severe CELIAC'S Verified 01/27/24 19:35 latex Allergy Severe Anaphylaxis Verified 01/27/24 19:35 Penicillins Allergy Severe Anaphylaxis Verified 01/27/24 19:35 Sulfa (Sulfonamide Allergy Severe Anaphylaxis Verified 01/27/24 19:35 Antibiotics) ROBER Inhibitors Allergy Intermediate RASH/TACHYC Verified 01/27/24 19:35 ARDIA cefaclor Allergy Intermediate CECLOR--RASH/UPSET Verified 01/27/24 19:35 STOMACH egg Allergy Intermediate RASH & Verified 01/27/24 19:35 Bloating Influenza Virus Vaccines Allergy Intermediate rash and Verified 01/27/24 19:35 bloating lactose Allergy Intermediate BLOATING; Verified 01/27/24 19:35 DIARRHEA; VOMITING tetracycline Allergy Intermediate NAUSEA/VOMI Verified 01/27/24 19:35 TING/RASH Quinolones Allergy Unknown ALLERGY TO Verified 01/27/24 19:35 AVELOX ,CAN TAKE CIPRO OR LEVAQUIN W/O RXN Beta-Blockers AdvReac Intermediate intolerance Verified 01/27/24 19:35 (Beta-Adrenergic Bloc as per records Home Medications Medication Instructions Recorded Confirmed Type aspirin 81 mg tablet,delayed 81 mg PO DAILY 09/14/24 09/14/24 History release atorvastatin 20 mg tablet 20 mg PO DAILY 09/14/24 09/14/24 History cimetidine 400 mg tablet 400 mg PO BID 09/14/24 09/14/24 History fexofenadine 180 mg tablet 180 mg PO DAILY 09/14/24 09/14/24 History fluticasone 250 mcg-salmeterol 50 1 inh inhalation BID 09/14/24 09/14/24 History mcg/dose blistr powdr for inhalation (Advair Diskus) folic acid 1 mg tablet 2 mg PO DAILY 09/14/24 09/14/24 History hyoscyamine sulfate 0.375 mg 0.375 mg PO Q6H PRN Abdominal Pain 09/14/24 09/14/24 History tablet,extended release,12 hr ipratropium 20 mcg-albuterol 100 1 puff inhalation QID PRN 09/14/24 09/14/24 History mcg/actuation mist for inhalation Shortness Of Breath Or Wheezing (Combivent Respimat) levothyroxine 100 mcg capsule 100 mcg PO DAILY 09/14/24 09/14/24 History midodrine 2.5 mg tablet 2.5 mg PO TID 09/14/24 09/14/24 History montelukast 10 mg tablet 10 mg PO HS 09/14/24 09/15/24 History multivitamin 1 tab PO DAILY 09/14/24 09/14/24 History rabeprazole 20 mg tablet,delayed 40 mg PO BID 09/14/24 09/14/24 History release sucralfate 1 gram tablet 1 g PO ACHS 09/14/24 09/14/24 History topiramate 100 mg tablet 100 mg PO BID 09/14/24 09/14/24 History verapamil 40 mg tablet 40 mg PO TID 09/14/24 09/14/24 History CPAP Machine 09/15/24 09/15/24 History amitriptyline 75 mg tablet 75 mg PO HS 09/15/24 09/15/24 History azelastine 137 mcg (0.1 %) nasal 1 spray intranasal BID 09/15/24 09/15/24 History spray ergocalciferol (vitamin D2) 25,000 50,000 unit PO 09/15/24 History unit capsule levalbuterol HCl 1.25 mg/3 mL 1.25 mg inhalation Q6H 09/15/24 09/15/24 History solution for nebulization mometasone 50 mcg/actuation nasal 2 spray intranasal BID 09/15/24 09/15/24 History spray ondansetron 4 mg disintegrating 4 mg PO Q8H PRN Nausea And Vomiting 09/15/24 09/15/24 History tablet polyethylene glycol 3350 17 gram 17 g PO 4XD 09/15/24 09/15/24 History oral powder packet (Miralax) triamcinolone acetonide 0.1 % 1 applic topical BID 09/15/24 09/15/24 History topical cream Patient History Medical History Elevated LFTs Chronic anemia Dehydration Colitis with rectal bleeding Bloody diarrhea Hypertension Adrenal cyst monitoring Kidney stones no surgery Chronic back pain Degenerative disc disease Osteoarthritis Hx of sepsis ~2017 treated at [facility]. Anxiety Mitral valve prolapse follows with Dr Aguirre Heart disease Narcolepsy Chronic obstructive pulmonary disease Sleep apnea CPAP -- have not used in about a year (it broke and has not yet been fixed) Surgical History History of esophagogastroduodenoscopy (EGD) History of colonoscopy History of section x1 History of dilatation and curettage History of bilateral tubal ligation Family History Other No family history of adverse response to anesthesia Social History Smoking Status: Never smoker Second Hand Exposure: No; Do You Dip or Chew Tobacco: No; Hx Alcohol Use: No Hx Substance Use: No Preferred Language: Estonian Communication Ability: Effective Nut 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 Physical Exam Constitutional: WD/WN, vitals as above Respiratory: normal respiratory effort Cardiovascular: Rate/Rhythm: regular rate Gastrointestinal (Abdomen): Percussion/Palpation: + abdomen tender and abdomen soft; no guarding and abdomen not rigid Skin: no rashes, warm and dry Results & Data Vital Signs (Past 12 Hours) Vital Signs Temp Pulse Pulse Pulse Resp BP Pulse Ox 09/15/24 09:36 114/70 09/15/24 08:45 09/15/24 08:31 60 18 94 09/15/24 06:59 97.9 F 59 L 16 98/59 L 92 09/15/24 06:21 102/62 09/15/24 03:30 62 20 97 09/15/24 03:05 68 14 98 09/15/24 00:22 77 14 99 09/14/24 22:23 98.2 F 97 H 18 168/89 H 97 O2 Del Method O2 Flow Rate 09/15/24 09:36 09/15/24 08:45 Room Air 09/15/24 08:31 Room Air 09/15/24 06:59 Room Air 09/15/24 06:21 09/15/24 03:30 CPAP 2 09/15/24 03:05 2 09/15/24 00:22 2 09/14/24 22:23 Room Air Laboratory Results 09/15/24 09/14/24 09/14/24 Range/Units 05:30 20:07 16:27 WBC 3.12 L D (4.8-10.8) K/ul RBC 3.32 L (4.20-5.40) M/uL Hgb 11.1 L (12.0-16.0) g/dl Hct 35.2 L (37.0-47.0) % MCV 106.0 H (80.0-100.0) fL MCH 33.4 (25.0-34.0) pg MCHC 31.5 L (32.0-36.0) g/dL RDW Std Deviation 61.9 H (36.4-46.3) fL RDW Coeff of Reginaldo 15.7 H (11.5-14.5) % Plt Count 268 (130-400) K/uL MPV 9.8 (9.4-12.4) fL Immature Gran % (Auto) 0.0 % Neut % (Auto) 68.6 % Lymph % (Auto) 21.5 % Coffee % (Auto) 8.7 % Eos % (Auto) 0.6 % Baso % (Auto) 0.6 % Neut # (Auto) 2.14 (1.40-6.50) K/uL Lymph # (Auto) 0.67 L (1.20-3.40) K/uL Coffee # (Auto) 0.27 (0.11-0.59) K/uL Eos # (Auto) 0.02 (0.00-0.50) K/uL Baso # (Auto) 0.02 (0.00-0.20) K/uL Immature Gran # (Auto) 0.00 L (0.01-0.20) K/uL Sodium 140 (136-145) mmol/L Potassium 3.5 D (3.5-5.1) mmol/L Chloride 109 H (98-107) mmol/L Carbon Dioxide 29 (21-32) mmol/L Anion Gap 2 L (3-11) BUN 12 (6-23) mg/dl Creatinine 0.52 L (0.6-1.2) mg/dl Est Cr Clr Drug Dosing 90.7 ml/min eGFR 104.33 BUN/Creatinine Ratio 23.1 H (10-20) Glucose 129 H (70-99(Fasting)) mg/dl Lactate 0.7 (0.4-2.0) mmol/L Calcium 8.9 (8.6-10.3) mg/dl Magnesium 1.9 (1.7-2.4) mg/dl Total Bilirubin (0.2-1.0) mg/dl AST (13-39) U/L ALT (7-52) U/L Alkaline Phosphatase (34-104) U/L Troponin I High Sens 5.5 (0-14) pg/ml Total Protein (6.0-8.3) gm/dl Albumin (3.4-5.0) gm/dl Globulin (2.5-4.0) gm/dl Albumin/Globulin Ratio (0.9-2) Lipase (11-82) U/L Urine Color Yellow Urine Appearance Clear (Clear) Urine pH 7.5 (4.5-7.5) Ur Specific [place] 1.011 (1.000-1.030) Urine Protein Negative (Negative) Urine Glucose (UA) Negative (Negative) Urine Ketones Negative (Negative) Urine Blood Negative (Negative) Urine Nitrite Negative (Negative) Urine Bilirubin Negative (Negative) Urine Urobilinogen Negative (Negative) Ur Leukocyte Esterase 2+ H (Negative) Urine WBC (Auto) 11-20 H (0-5) /hpf Urine RBC (Auto) 0-2 (0-2) /hpf U Hyaline Cast (Auto) 0-2 (0-2) /lpf U Epithel Cells (Auto) 0-2 (0-2) /hpf Urine Bacteria (Auto) None Seen (None Seen) Adenovirus (PCR) (NotDetected) B. pertussis DNA (PCR) (NotDetected) B.parapertussis DNA PCR (NotDetected) C. pneumoniae DNA (PCR) (NotDetected) Coronavirus OC43 (PCR) (NotDetected) Coronavirus HKU1 (PCR) (NotDetected) Coronavirus 229E (PCR) (NotDetected) SARS-CoV-2 (PCR) (NotDetected) Coronavirus NL63 (PCR) (NotDetected) Human Metapneumovir PCR (NotDetected) Influenza Type A (PCR) (NotDetected) Influenza Type B (PCR) (NotDetected) M. pneumoniae (PCR) (NotDetected) Parainfluenza 1 (PCR) (NotDetected) Parainfluenza 2 (PCR) (NotDetected) Parainfluenza 3 (PCR) (NotDetected) Parainfluenza 4 (PCR) (NotDetected) RSV (PCR) (NotDetected) Entero/Rhino (PCR) (NotDetected) 09/14/24 09/14/24 Range/Units 16:23 16:06 WBC 8.45 (4.8-10.8) K/ul RBC 3.48 L (4.20-5.40) M/uL Hgb 11.7 L (12.0-16.0) g/dl Hct 36.8 L (37.0-47.0) % MCV 105.7 H (80.0-100.0) fL MCH 33.6 (25.0-34.0) pg MCHC 31.8 L (32.0-36.0) g/dL RDW Std Deviation 62.0 H (36.4-46.3) fL RDW Coeff of Reginaldo 15.7 H (11.5-14.5) % Plt Count 287 (130-400) K/uL MPV 9.7 (9.4-12.4) fL Immature Gran % (Auto) 0.4 % Neut % (Auto) 81.6 % Lymph % (Auto) 10.7 % Coffee % (Auto) 6.0 % Eos % (Auto) 1.1 % Baso % (Auto) 0.2 % Neut # (Auto) 6.90 H (1.40-6.50) K/uL Lymph # (Auto) 0.90 L (1.20-3.40) K/uL Coffee # (Auto) 0.51 (0.11-0.59) K/uL Eos # (Auto) 0.09 (0.00-0.50) K/uL Baso # (Auto) 0.02 (0.00-0.20) K/uL Immature Gran # (Auto) 0.03 (0.01-0.20) K/uL Sodium 140 (136-145) mmol/L Potassium 4.5 (3.5-5.1) mmol/L Chloride 111 H (98-107) mmol/L Carbon Dioxide 25 (21-32) mmol/L Anion Gap 4 (3-11) BUN 17 (6-23) mg/dl Creatinine 0.52 L (0.6-1.2) mg/dl Est Cr Clr Drug Dosing 90.7 ml/min eGFR 104.33 BUN/Creatinine Ratio 32.7 H (10-20) Glucose 103 H (70-99(Fasting)) mg/dl Lactate (0.4-2.0) mmol/L Calcium 8.9 (8.6-10.3) mg/dl Magnesium (1.7-2.4) mg/dl Total Bilirubin 0.2 (0.2-1.0) mg/dl AST 21 (13-39) U/L ALT 19 (7-52) U/L Alkaline Phosphatase 79 (34-104) U/L Troponin I High Sens (0-14) pg/ml Total Protein 5.9 L (6.0-8.3) gm/dl Albumin 3.7 (3.4-5.0) gm/dl Globulin 2.2 L (2.5-4.0) gm/dl Albumin/Globulin Ratio 1.7 (0.9-2) Lipase 15 (11-82) U/L Urine Color Urine Appearance (Clear) Urine pH (4.5-7.5) Ur Specific [place] (1.000-1.030) Urine Protein (Negative) Urine Glucose (UA) (Negative) Urine Ketones (Negative) Urine Blood (Negative) Urine Nitrite (Negative) Urine Bilirubin (Negative) Urine Urobilinogen (Negative) Ur Leukocyte Esterase (Negative) Urine WBC (Auto) (0-5) /hpf Urine RBC (Auto) (0-2) /hpf U Hyaline Cast (Auto) (0-2) /lpf U Epithel Cells (Auto) (0-2) /hpf Urine Bacteria (Auto) (None Seen) Adenovirus (PCR) Not Detected (NotDetected) B. pertussis DNA (PCR) Not Detected (NotDetected) B.parapertussis DNA PCR Not Detected (NotDetected) C. pneumoniae DNA (PCR) Not Detected (NotDetected) Coronavirus OC43 (PCR) Not Detected (NotDetected) Coronavirus HKU1 (PCR) Not Detected (NotDetected) Coronavirus 229E (PCR) Not Detected (NotDetected) SARS-CoV-2 (PCR) Not Detected (NotDetected) Coronavirus NL63 (PCR) Not Detected (NotDetected) Human Metapneumovir PCR Not Detected (NotDetected) Influenza Type A (PCR) Not Detected (NotDetected) Influenza Type B (PCR) Not Detected (NotDetected) M. pneumoniae (PCR) Not Detected (NotDetected) Parainfluenza 1 (PCR) Not Detected (NotDetected) Parainfluenza 2 (PCR) Not Detected (NotDetected) Parainfluenza 3 (PCR) Not Detected (NotDetected) Parainfluenza 4 (PCR) Not Detected (NotDetected) RSV (PCR) Not Detected (NotDetected) Entero/Rhino (PCR) Not Detected (NotDetected) PG Care Time/CCT Total # of Minutes Spent Total Time Spent with Patient: Total time spent is greater than 50% in coordination of care (as documented) at patient's floor/unit and/or counseling patient: Coding Level of Care Code 75236 IN/OBS CONSULT LVL 4,60M Diagnoses Abdominal pain R10.9
--- NOTE | 2024-09-15 10:19 | Urology Consultation ---
Date of Consultation September 15, 2024 Assessment & Plan (1) Bilateral hydronephrosis: 64-year-old female admitted for epigastric pain and nausea. Urology is consulted for bilateral hydronephrosis Patient afebrile, hemodynamically stable Labs reviewedcreatinine 0.52, WBC 3.12, hemoglobin 11.1 Urinalysis was not overly suspicious for infection, urine culture pending She was started on empiric antibioticsfollow culture She is currently n.p.o. for possible GI evaluation CT imaging reviewed and discussedbilateral hydronephrosis noted, left greater than right, no focal obstruction notedappears stable from previous imaging; also 3.3 cm left adrenal mass, stable Discussed possible etiologies of hydronephrosis including infection, reflux, stricture, UPJ obstruction, other Her current symptoms of epigastric pain seem more consistent with a GI etiology Renal function is normal and no severe flank pain No acute intervention planned at this time We can arrange outpatient follow-up for further evaluation of hydronephrosis Can also pursue workup of adrenal mass if not previously done Continue supportive care, antibiotics and follow culture will sign off, please contact our service with any additional questions or concerns History of Present Illness Reason for Consultation: b/l hydronephrosis Requesting Physician: Dr. Coello Attending Physician: Fabrizio Sanches MD History of Present Illness This is a 64-year-old female with past medical history of hypothyroidism, hyperlipidemia, obstructive sleep apnea, asthma, COPD, atrial fibrillation, CKD, and chronic pancreatitis who presented to the emergency department on 09/14/24 for evaluation of severe epigastric abdominal pain with associated nausea. On arrival to ED, she was afebrile and hemodynamically stable. Labs showed creatinine 0.52, WBC 8.45, hemoglobin 11.7. Lactate 0.7. Urinalysis showed 2+ LE, 11-20 WBC, otherwise negative. Bio fire PCR panel was negative. Workup in the ED included CT abdomen pelvis with IV contrast. CT showed unchanged 3.3 cm left adrenal mass. Left greater than right hydronephrosis without focal obstruction. Small left renal cysts. ED course: Morphine and ondansetron. She was admitted to the hospital medicine service for abdominal pain. Urology is consulted for bilateral hydronephrosis. Patient seen and examined at bedside this morning. She is awake and resting in bed. She reports ongoing epigastric discomfort, which radiates to her back. She is voiding spontaneously, no dysuria or hematuria. No fever or chills. She reports nausea, poor appetite. She reports history of UTIs. She reports prior history of kidney stones 20+ years ago as well as pyelonephritis. Allergies Allergy/AdvReac Type Severity Reaction Status Date / Time bee venom protein (honey bee) Allergy Severe ANAPHYLAXIS Verified 01/27/24 19:35 coconut Allergy Severe RASH; SOB Verified 01/27/24 19:35 gluten Allergy Severe CELIAC'S Verified 01/27/24 19:35 latex Allergy Severe Anaphylaxis Verified 01/27/24 19:35 Penicillins Allergy Severe Anaphylaxis Verified 01/27/24 19:35 Sulfa (Sulfonamide Allergy Severe Anaphylaxis Verified 01/27/24 19:35 Antibiotics) ROBER Inhibitors Allergy Intermediate RASH/TACHYC Verified 01/27/24 19:35 ARDIA cefaclor Allergy Intermediate CECLOR--RASH/UPSET Verified 01/27/24 19:35 STOMACH egg Allergy Intermediate RASH & Verified 01/27/24 19:35 Bloating Influenza Virus Vaccines Allergy Intermediate rash and Verified 01/27/24 19:35 bloating lactose Allergy Intermediate BLOATING; Verified 01/27/24 19:35 DIARRHEA; VOMITING tetracycline Allergy Intermediate NAUSEA/VOMI Verified 01/27/24 19:35 TING/RASH Quinolones Allergy Unknown ALLERGY TO Verified 01/27/24 19:35 AVELOX ,CAN TAKE CIPRO OR LEVAQUIN W/O RXN Beta-Blockers AdvReac Intermediate intolerance Verified 01/27/24 19:35 (Beta-Adrenergic Bloc as per records Home Medications Medication Instructions Recorded Confirmed Type aspirin 81 mg tablet,delayed 81 mg PO DAILY 09/14/24 09/14/24 History release atorvastatin 20 mg tablet 20 mg PO DAILY 09/14/24 09/14/24 History cimetidine 400 mg tablet 400 mg PO BID 09/14/24 09/14/24 History fexofenadine 180 mg tablet 180 mg PO DAILY 09/14/24 09/14/24 History fluticasone 250 mcg-salmeterol 50 1 inh inhalation BID 09/14/24 09/14/24 History mcg/dose blistr powdr for inhalation (Advair Diskus) folic acid 1 mg tablet 2 mg PO DAILY 09/14/24 09/14/24 History hyoscyamine sulfate 0.375 mg 0.375 mg PO Q6H PRN Abdominal Pain 09/14/24 09/14/24 History tablet,extended release,12 hr ipratropium 20 mcg-albuterol 100 1 puff inhalation QID PRN 09/14/24 09/14/24 History mcg/actuation mist for inhalation Shortness Of Breath Or Wheezing (Combivent Respimat) levothyroxine 100 mcg capsule 100 mcg PO DAILY 09/14/24 09/14/24 History midodrine 2.5 mg tablet 2.5 mg PO TID 09/14/24 09/14/24 History montelukast 10 mg tablet 10 mg PO HS 09/14/24 09/15/24 History multivitamin 1 tab PO DAILY 09/14/24 09/14/24 History rabeprazole 20 mg tablet,delayed 40 mg PO BID 09/14/24 09/14/24 History release sucralfate 1 gram tablet 1 g PO ACHS 09/14/24 09/14/24 History topiramate 100 mg tablet 100 mg PO BID 09/14/24 09/14/24 History verapamil 40 mg tablet 40 mg PO TID 09/14/24 09/14/24 History CPAP Machine 09/15/24 09/15/24 History amitriptyline 75 mg tablet 75 mg PO HS 09/15/24 09/15/24 History azelastine 137 mcg (0.1 %) nasal 1 spray intranasal BID 09/15/24 09/15/24 History spray ergocalciferol (vitamin D2) 25,000 50,000 unit PO 09/15/24 History unit capsule levalbuterol HCl 1.25 mg/3 mL 1.25 mg inhalation Q6H 09/15/24 09/15/24 History solution for nebulization mometasone 50 mcg/actuation nasal 2 spray intranasal BID 09/15/24 09/15/24 History spray ondansetron 4 mg disintegrating 4 mg PO Q8H PRN Nausea And Vomiting 09/15/24 09/15/24 History tablet polyethylene glycol 3350 17 gram 17 g PO 4XD 09/15/24 09/15/24 History oral powder packet (Miralax) triamcinolone acetonide 0.1 % 1 applic topical BID 09/15/24 09/15/24 History topical cream Patient History Medical History Elevated LFTs Chronic anemia Dehydration Colitis with rectal bleeding Bloody diarrhea Hypertension Adrenal cyst monitoring Kidney stones no surgery Chronic back pain Degenerative disc disease Osteoarthritis Hx of sepsis ~2017 treated at [facility]. Anxiety Mitral valve prolapse follows with Dr Aguirre Heart disease Narcolepsy Chronic obstructive pulmonary disease Sleep apnea CPAP -- have not used in about a year (it broke and has not yet been fixed) Surgical History History of esophagogastroduodenoscopy (EGD) History of colonoscopy History of section x1 History of dilatation and curettage History of bilateral tubal ligation Family History Other No family history of adverse response to anesthesia Social History Smoking Status: Never smoker Second Hand Exposure: No; Do You Dip or Chew Tobacco: No; Hx Alcohol Use: No Hx Substance Use: No Preferred Language: Gambian Communication Ability: Effective Comber Setter Required: No Beliefs That Will Affect Care: None marital status: Current Living Situation: Spouse Current Living Situation Comment: also lives with her 4 year old boys Other Information That Helps Us Care for You: No Feels Safe at Home: Yes Safety Concerns: Feels Safe At This Time Assistive Devices: Denture - Upper, Glasses and Oxygen - at Night Assistive Devices Comment: dentures are a partial Review of Systems Review of Systems: All systems reviewed & are unremarkable except as noted in HPI & below Physical Exam Constitutional: well developed and well nourished; no acute distress Respiratory: normal respiratory effort; no respiratory distress and no labored breathing Gastrointestinal (Abdomen): Inspection/Auscultation: abdomen normal to inspection Percussion/Palpation: + abdomen tender (epigastric area) and abdomen soft Musculoskeletal: Head/Neck/Chest: normocephalic Neurologic: moves all extremities and awake Psychiatric: Orientation: alert and oriented x 3 Genitourinary: no CVA tenderness Results & Data Vital Signs (Past 12 Hours) Vital Signs Temp Pulse Pulse Pulse Resp BP Pulse Ox 09/15/24 09:36 114/70 09/15/24 08:45 09/15/24 08:31 60 18 94 09/15/24 06:59 36.6 C 59 L 16 98/59 L 92 09/15/24 06:21 102/62 09/15/24 03:30 62 20 97 09/15/24 03:05 68 14 98 09/15/24 00:22 77 14 99 09/14/24 22:23 36.8 C 97 H 18 168/89 H 97 O2 Del Method O2 Flow Rate 09/15/24 09:36 09/15/24 08:45 Room Air 09/15/24 08:31 Room Air 09/15/24 06:59 Room Air 09/15/24 06:21 09/15/24 03:30 CPAP 2 09/15/24 03:05 2 09/15/24 00:22 2 09/14/24 22:23 Room Air PG Care Time/CCT Total # of Minutes Spent Total Time Spent with Patient: Total time spent is greater than 50% in coordination of care (as documented) at patient's floor/unit and/or counseling patient: Coding Level of Care Code 92014 IN/OBS CONSULT LVL 4,60M Diagnoses Bilateral hydronephrosis N13.30
--- NOTE | 2024-09-15 11:10 | Magnetic Resonance Report ---
MRCP CLINICAL HISTORY: Abdominal pain. Bowel duct dilatation. TECHNIQUE: Utilizing a 1.5 Michelle magnet and dedicated coil, multiplanar, multiecho imaging of the upp er abdomen was performed utilizing heavily T2 weighted pulsing sequences without IV contrast. COMPARISON STUDY: CT of the abdomen and pelvis September 14, 2024. MRCP April 09, 2021. FINDINGS: Mild intra and extra hepatic biliary ductal dilatation has mildly increased since MRCP of O ct2020 and CT of the abdomen and pelvis January 27, 2024. The common bile duct measures 1 cm in caliber. No common bile duct calculi identified. The gallbladder is surgically absent. No hepatic les ions are identified on unenhanced exam. Bilateral collecting system dilatation is similar to prior ex am. This is likely chronic. A recent left adrenal nodules also unchanged from earlier studies. This i s likely benign. There is no abdominal lymphadenopathy or ascites. There is no pancreatic ductal dil atation IMPRESSION: 1. Mild biliary ductal dilatation, mildly increased since prior MRCP. This is likely related to erlin cystectomy and could be correlated with liver function tests. 2. No common bile duct calculi identified. ACT 112: Negative or not required by law. Electronically signed by: Fernando Redding M.D. 09/15/2024 11:07 AM
[2024-09-15] MEDS: MONTELUKAST SODIUM 10 MG TABLET PO SCH (11:25)
[2024-09-15] MEDS: ATORVASTATIN 20 MG TAB PO SCH (11:25)
[2024-09-15] MEDS: FEXOFENADINE HCL 180 MG TAB PO SCH (11:26)
[2024-09-15] MEDS: ASPIRIN 81 MG ECTAB PO SCH (11:26)
[2024-09-15] MEDS: FOLIC ACID 1 MG TAB PO SCH (11:26)
[2024-09-15] MEDS: MULTIVITAMIN TAB PO SCH (11:26)
[2024-09-15] MEDS: FAMOTIDINE 40 MG TABLET PO SCH (11:26)
[2024-09-15] MEDS: POLYETHYLENE (MIRALAX) 17 GM PACK PO SCH (11:37)
--- NOTE | 2024-09-15 13:18 | Hospitalist Progress Note ---
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 Since last Wednesday she is having epigastric abdominal pain 9/10 in severity radiating to the back. Associated with nausea. Did not moved her bowels since last several days and not even moving gas. Poor appetite. Also having headache. Runny nose with bloody yellow drainage. Has cough. And sore throat for last few days. Denies any fevers. Denies chest pain. Has some shortness of breath. Not micturating much. No rash. Hemodynamics are okay. Abdominal pain Epigastric region radiating to back going on for last few days Lipase normal. LFTs okay. Lactic acid okay. Respiratory BioFire negative. CT of the abdomen pelvis shows unchanged left adrenal mass. Bilateral hydronephrosis. Interval worsening of bile duct dilatation. ER discussed with GI and advised for MRCP MRCP obtained IV fluids, pain control Continue home cimetidine and sucralfate Close monitor GI consulted and discussed with - LFTs are unremarkable, CT w/ interval worsening of bile duct dilatation up to 13mm, mild small bowel wall thickening, raising the possibility of infectious enteritis or inflammatory bowel disease. She had EGD/Colonoscopy in May without findings of inflammatory bowel disease. Findings did show that she had celiac disease but that is chronic and she has had some noncompliance with her diet. Her MRCP here showed was unremarkable without any choledocholithiasis noted she does have history of pancreatic divisum. At this point I would just treat her supportively as I think she has infectious enteritis that is slowly getting better. I would make sure she has a bowel movement with her persistent MiraLAX. I would start a full liquid diet and advance to soft solids tomorrow. She can follow-up with [facility]. There is no role for repeat EGD or endoluminal evaluation. Bilateral hydronephrosis Possible UTI Empiric aztreonam Will follow urine cultures Urology consulted History of asthma Continue home inhalers Sleep apnea CPAP nightly Hypothyroidism On Synthyroid History of A-fib Not on anticoagulant secondary to anemia On verapamil and aspirin Celiac disease Irritable bowel syndrome Chronic abdominal pain Gluten-free diet Continue PPI cimetidine and sucralfate Chronic anemia Receives iron Hemoglobin Hyperlipidemia History of statin intolerance Hypertension On verapamil History of CAD On verapamil and aspirin Hypotension on midodrine. DVT prophylaxis SCDs for now Disposition Medical floor Full code Admission and Anticipated Discharge Date Admission Date: September 14, 2024 Subjective Pt seen in follow up of abd. pain MRCP obtained GI and urology consulted, discussed with recommend to continue Aztreonam , likely infectious enteritis Pt is lying in bed in NAD but continues to have epigastric abd. discomfort no fever, chills, chest pain or shortness of breath stool pcr ordered - uncollected ucultx pending Review of Systems Review of Systems: All systems reviewed & are unremarkable except as noted in Subjective Physical Exam Physical Exam: General- slim elderly F in NAD Head- atraumatic Eyes- PERRL. Neck- supple, no JVD. Lungs- clear to auscultation no wheezing or crackles Heart- regular rhythm; no murmur Abdomen- normal bowel sounds, soft, +epigastric tenderness, no distension Extremities- no pretibial edema, no erythema seen Neuro- alert, oriented PERRL, no facial palsy; no dysarthria; moves extremities Results & Data Results & Data Vital Signs (Past 12 Hours) Vital Signs Temp Pulse Pulse Resp BP Pulse Ox O2 Del Method 09/15/24 11:29 65 09/15/24 09:36 114/70 09/15/24 08:45 Room Air 09/15/24 08:31 60 18 94 Room Air 09/15/24 06:59 36.6 C 59 L 16 98/59 L 92 Room Air 09/15/24 06:21 102/62 09/15/24 03:30 62 20 97 CPAP 09/15/24 03:05 68 14 98 O2 Flow Rate 09/15/24 11:29 09/15/24 09:36 09/15/24 08:45 09/15/24 08:31 09/15/24 06:59 09/15/24 06:21 09/15/24 03:30 2 09/15/24 03:05 2 Laboratory Results 09/15/24 09/14/24 09/14/24 Range/Units 05:30 20:07 16:27 WBC 3.12 L D (4.8-10.8) K/ul RBC 3.32 L (4.20-5.40) M/uL Hgb 11.1 L (12.0-16.0) g/dl Hct 35.2 L (37.0-47.0) % MCV 106.0 H (80.0-100.0) fL MCH 33.4 (25.0-34.0) pg MCHC 31.5 L (32.0-36.0) g/dL RDW Std Deviation 61.9 H (36.4-46.3) fL RDW Coeff of Reginaldo 15.7 H (11.5-14.5) % Plt Count 268 (130-400) K/uL MPV 9.8 (9.4-12.4) fL Immature Gran % (Auto) 0.0 % Neut % (Auto) 68.6 % Lymph % (Auto) 21.5 % [place] % (Auto) 8.7 % Eos % (Auto) 0.6 % Baso % (Auto) 0.6 % Neut # (Auto) 2.14 (1.40-6.50) K/uL Lymph # (Auto) 0.67 L (1.20-3.40) K/uL [place] # (Auto) 0.27 (0.11-0.59) K/uL Eos # (Auto) 0.02 (0.00-0.50) K/uL Baso # (Auto) 0.02 (0.00-0.20) K/uL Immature Gran # (Auto) 0.00 L (0.01-0.20) K/uL Sodium 140 (136-145) mmol/L Potassium 3.5 D (3.5-5.1) mmol/L Chloride 109 H (98-107) mmol/L Carbon Dioxide 29 (21-32) mmol/L Anion Gap 2 L (3-11) BUN 12 (6-23) mg/dl Creatinine 0.52 L (0.6-1.2) mg/dl Est Cr Clr Drug Dosing 90.7 ml/min eGFR 104.33 BUN/Creatinine Ratio 23.1 H (10-20) Glucose 129 H (70-99(Fasting)) mg/dl Lactate 0.7 (0.4-2.0) mmol/L Calcium 8.9 (8.6-10.3) mg/dl Magnesium 1.9 (1.7-2.4) mg/dl Total Bilirubin (0.2-1.0) mg/dl AST (13-39) U/L ALT (7-52) U/L Alkaline Phosphatase (34-104) U/L Troponin I High Sens 5.5 (0-14) pg/ml Total Protein (6.0-8.3) gm/dl Albumin (3.4-5.0) gm/dl Globulin (2.5-4.0) gm/dl Albumin/Globulin Ratio (0.9-2) Lipase (11-82) U/L Urine Color Yellow Urine Appearance Clear (Clear) Urine pH 7.5 (4.5-7.5) Ur Specific [place] 1.011 (1.000-1.030) Urine Protein Negative (Negative) Urine Glucose (UA) Negative (Negative) Urine Ketones Negative (Negative) Urine Blood Negative (Negative) Urine Nitrite Negative (Negative) Urine Bilirubin Negative (Negative) Urine Urobilinogen Negative (Negative) Ur Leukocyte Esterase 2+ H (Negative) Urine WBC (Auto) 11-20 H (0-5) /hpf Urine RBC (Auto) 0-2 (0-2) /hpf U Hyaline Cast (Auto) 0-2 (0-2) /lpf U Epithel Cells (Auto) 0-2 (0-2) /hpf Urine Bacteria (Auto) None Seen (None Seen) Adenovirus (PCR) (NotDetected) B. pertussis DNA (PCR) (NotDetected) B.parapertussis DNA PCR (NotDetected) C. pneumoniae DNA (PCR) (NotDetected) Coronavirus OC43 (PCR) (NotDetected) Coronavirus HKU1 (PCR) (NotDetected) Coronavirus 229E (PCR) (NotDetected) SARS-CoV-2 (PCR) (NotDetected) Coronavirus NL63 (PCR) (NotDetected) Human Metapneumovir PCR (NotDetected) Influenza Type A (PCR) (NotDetected) Influenza Type B (PCR) (NotDetected) M. pneumoniae (PCR) (NotDetected) Parainfluenza 1 (PCR) (NotDetected) Parainfluenza 2 (PCR) (NotDetected) Parainfluenza 3 (PCR) (NotDetected) Parainfluenza 4 (PCR) (NotDetected) RSV (PCR) (NotDetected) Entero/Rhino (PCR) (NotDetected) 09/14/24 09/14/24 Range/Units 16:23 16:06 WBC 8.45 (4.8-10.8) K/ul RBC 3.48 L (4.20-5.40) M/uL Hgb 11.7 L (12.0-16.0) g/dl Hct 36.8 L (37.0-47.0) % MCV 105.7 H (80.0-100.0) fL MCH 33.6 (25.0-34.0) pg MCHC 31.8 L (32.0-36.0) g/dL RDW Std Deviation 62.0 H (36.4-46.3) fL RDW Coeff of Reginaldo 15.7 H (11.5-14.5) % Plt Count 287 (130-400) K/uL MPV 9.7 (9.4-12.4) fL Immature Gran % (Auto) 0.4 % Neut % (Auto) 81.6 % Lymph % (Auto) 10.7 % [place] % (Auto) 6.0 % Eos % (Auto) 1.1 % Baso % (Auto) 0.2 % Neut # (Auto) 6.90 H (1.40-6.50) K/uL Lymph # (Auto) 0.90 L (1.20-3.40) K/uL [place] # (Auto) 0.51 (0.11-0.59) K/uL Eos # (Auto) 0.09 (0.00-0.50) K/uL Baso # (Auto) 0.02 (0.00-0.20) K/uL Immature Gran # (Auto) 0.03 (0.01-0.20) K/uL Sodium 140 (136-145) mmol/L Potassium 4.5 (3.5-5.1) mmol/L Chloride 111 H (98-107) mmol/L Carbon Dioxide 25 (21-32) mmol/L Anion Gap 4 (3-11) BUN 17 (6-23) mg/dl Creatinine 0.52 L (0.6-1.2) mg/dl Est Cr Clr Drug Dosing 90.7 ml/min eGFR 104.33 BUN/Creatinine Ratio 32.7 H (10-20) Glucose 103 H (70-99(Fasting)) mg/dl Lactate (0.4-2.0) mmol/L Calcium 8.9 (8.6-10.3) mg/dl Magnesium (1.7-2.4) mg/dl Total Bilirubin 0.2 (0.2-1.0) mg/dl AST 21 (13-39) U/L ALT 19 (7-52) U/L Alkaline Phosphatase 79 (34-104) U/L Troponin I High Sens (0-14) pg/ml Total Protein 5.9 L (6.0-8.3) gm/dl Albumin 3.7 (3.4-5.0) gm/dl Globulin 2.2 L (2.5-4.0) gm/dl Albumin/Globulin Ratio 1.7 (0.9-2) Lipase 15 (11-82) U/L Urine Color Urine Appearance (Clear) Urine pH (4.5-7.5) Ur Specific [place] (1.000-1.030) Urine Protein (Negative) Urine Glucose (UA) (Negative) Urine Ketones (Negative) Urine Blood (Negative) Urine Nitrite (Negative) Urine Bilirubin (Negative) Urine Urobilinogen (Negative) Ur Leukocyte Esterase (Negative) Urine WBC (Auto) (0-5) /hpf Urine RBC (Auto) (0-2) /hpf U Hyaline Cast (Auto) (0-2) /lpf U Epithel Cells (Auto) (0-2) /hpf Urine Bacteria (Auto) (None Seen) Adenovirus (PCR) Not Detected (NotDetected) B. pertussis DNA (PCR) Not Detected (NotDetected) B.parapertussis DNA PCR Not Detected (NotDetected) C. pneumoniae DNA (PCR) Not Detected (NotDetected) Coronavirus OC43 (PCR) Not Detected (NotDetected) Coronavirus HKU1 (PCR) Not Detected (NotDetected) Coronavirus 229E (PCR) Not Detected (NotDetected) SARS-CoV-2 (PCR) Not Detected (NotDetected) Coronavirus NL63 (PCR) Not Detected (NotDetected) Human Metapneumovir PCR Not Detected (NotDetected) Influenza Type A (PCR) Not Detected (NotDetected) Influenza Type B (PCR) Not Detected (NotDetected) M. pneumoniae (PCR) Not Detected (NotDetected) Parainfluenza 1 (PCR) Not Detected (NotDetected) Parainfluenza 2 (PCR) Not Detected (NotDetected) Parainfluenza 3 (PCR) Not Detected (NotDetected) Parainfluenza 4 (PCR) Not Detected (NotDetected) RSV (PCR) Not Detected (NotDetected) Entero/Rhino (PCR) Not Detected (NotDetected) Medications Administered Current Inpatient Medications Acetaminophen (Acetaminophen 325 Mg Tab) 650 mg PO Q4H PRN PRN Reason: pain/fever Stop: 10/14/24 22:39 Last Admin: 09/15/24 09:21 Dose: 650 mg Albuterol (Albuterol Hfa 8 Gm Inhaler) 1 puffs INH QID PRN; Protocol PRN Reason: SOB/WHEEZING Stop: 10/14/24 23:14 Amitriptyline HCl (Amitriptyline Hcl 25 Mg Tab) 75 mg PO HS JAYSHREE Stop: 10/15/24 20:59 Aspirin (Aspirin 81 Mg Ectab) 81 mg PO DAILY JAYSHREE Stop: 10/15/24 08:59 Last Admin: 09/15/24 11:26 Dose: 81 mg Atorvastatin Calcium (Atorvastatin 20 Mg Tab) 20 mg PO DAILY JAYSHREE Stop: 10/15/24 08:59 Last Admin: 09/15/24 11:25 Dose: 20 mg Azelastine HCl (Azelastine Hcl 0.1% Nasal 200 Sprays/27,400 Mcg Btl) 1 sprays NA BID JAYSHREE Stop: 10/15/24 08:59 Last Admin: 09/15/24 09:17 Dose: 1 sprays Famotidine (Famotidine 40 Mg Tablet) 40 mg PO DAILY JAYSHREE Stop: 10/15/24 08:59 Last Admin: 09/15/24 11:26 Dose: 40 mg Fexofenadine HCl (Fexofenadine Hcl 180 Mg Tab) 180 mg PO DAILY [facility] Stop: 10/15/24 08:59 Last Admin: 09/15/24 11:26 Dose: 180 mg Fluticasone Propionate (Fluticasone Propionate Na Spr 16 Gm Btl) 2 sprays NA DAILY [facility] Stop: 10/15/24 08:59 Last Admin: 09/15/24 09:16 Dose: 2 sprays Fluticasone/Vilanterol (Fluticasone/Vilanterol 200/25mcg 14 Puffs/Inhaler) 1 puffs INH DAILY [facility] Stop: 10/15/24 08:59 Last Admin: 09/15/24 09:16 Dose: 1 puffs Folic Acid (Folic Acid 1 Mg Tab) 2 mg PO DAILY [facility] Stop: 10/15/24 08:59 Last Admin: 09/15/24 11:26 Dose: 2 mg Heparin Sodium (Porcine) (Heparin 100 Unit/Ml 5ml Flush) 5 ml FLUSH PRN PRN PRN Reason: Flush Stop: 10/15/24 13:07 Hydromorphone HCl (Hydromorphone Inj 0.5 Mg/0.5 Ml Syr) 0.25 mg IV Q6H PRN PRN Reason: Moderate Pain (Scale 4, 5, 6) Stop: 09/28/24 22:39 Hydromorphone HCl (Hydromorphone Inj 0.5 Mg/0.5 Ml Syr) 0.5 mg IV Q6H PRN PRN Reason: Severe Pain (Scale 7, 8, 9,10) Stop: 09/28/24 22:39 Last Admin: 09/15/24 05:43 Dose: 0.5 mg Hyoscyamine (Hyoscyamine Sulfate 0.375 Mg Tabcr) 0.375 mg PO Q6H PRN PRN Reason: Abdominal Pain Stop: 10/14/24 22:39 Aztreonam 2,000 mg/ Dextrose 100 mls @ 100 mls/hr IV Q8H [facility] Stop: 09/20/24 00:00 Last Infusion: 09/15/24 11:28 Dose: Infused Dextrose/Sodium Chloride (D5w And 1/2nss) 1,000 mls @ 100 mls/hr IV .Q10H [facility] Stop: 09/15/24 22:39 Last Admin: 09/15/24 08:48 Dose: 100 mls/hr Ipratropium [place] (Ipratropium [place] Hfa Inhaler) 1 puffs INH QID PRN; Protocol PRN Reason: SOB/WHEEZING Stop: 10/14/24 23:14 Levalbuterol HCl (Levalbuterol 1.25 Mg/3 Ml Neb) 1.25 mg NEB Q6H PRN PRN Reason: Shortness Of Breath Or Wheezin Stop: 10/14/24 22:39 Levalbuterol HCl (Levalbuterol 1.25 Mg/3 Ml Neb) 1.25 mg INH Q6R JAYSHREE Stop: 10/15/24 01:59 Last Admin: 09/15/24 07:28 Dose: 1.25 mg Levothyroxine Sodium (Levothyroxine Sodium 100 Mcg Tablet) 100 mcg PO DAILYBB [facility] Stop: 10/15/24 06:29 Last Admin: 09/15/24 05:50 Dose: 100 mcg Midodrine (Midodrine Hcl 2.5 Mg Tab) 2.5 mg PO TID@0700,1200,1700 [facility] Stop: 10/15/24 06:59 Last Admin: 09/15/24 11:26 Dose: 2.5 mg Montelukast Sodium (Montelukast Sodium 10 Mg Tablet) 10 mg PO DAILY JAYSHREE Stop: 10/15/24 08:59 Last Admin: 09/15/24 11:25 Dose: 10 mg Multivitamins (Multivitamin Tab) 1 tab PO DAILY [facility] Stop: 10/15/24 08:59 Last Admin: 09/15/24 11:26 Dose: 1 tab Ondansetron HCl (Ondansetron Inj 2 Mg/Ml 2 Ml Vial) 4 mg IV Q6H PRN PRN Reason: Nausea Stop: 10/14/24 22:39 Last Admin: 09/15/24 08:51 Dose: 4 mg Ondansetron HCl (Ondansetron 4 Mg Od Tab) 4 mg PO Q8H PRN PRN Reason: Nausea And Vomiting Stop: 10/15/24 01:57 Pantoprazole Sodium (Pantoprazole 40 Mg Tab) 40 mg PO BID JAYSHREE Stop: 10/14/24 22:39 Last Admin: 09/15/24 11:27 Dose: 40 mg Polyethylene Glycol (Polyethylene (Miralax) 17 Gm Pack) 17 gm PO QID JAYSHREE Stop: 10/15/24 08:59 Last Admin: 09/15/24 11:37 Dose: Not Given Sucralfate (Sucralfate 1 Gm Tab) 1 gm PO ACHS JAYSHREE Stop: 10/14/24 22:39 Last Admin: 09/15/24 11:27 Dose: 1 gm Topiramate (Topiramate 100 Mg Tab) 100 mg PO BID JAYSHREE Stop: 10/14/24 22:39 Last Admin: 09/15/24 11:26 Dose: 100 mg Triamcinolone Acetonide (Triamcinolone Acet 0.1% Cr 15 Gm Tube) 1 appln TOP BID JAYSHREE Stop: 10/15/24 08:59 Last Admin: 09/15/24 09:22 Dose: 1 appln Verapamil HCl (Verapamil Hcl 40 Mg Tab) 40 mg PO TID JAYSHREE Stop: 10/14/24 22:39 Last Admin: 09/15/24 11:29 Dose: 40 mg
[2024-09-15] MEDS: AMITRIPTYLINE HCL 25 MG TAB PO SCH (21:06)
[2024-09-16] MEDS ORDERED: HEPARIN 100 UNIT/ML 5ML FLUSH FLUSH PRN (03:44)
[2024-09-16] MEDS: HEPARIN 100 UNIT/ML 5ML FLUSH FLUSH PRN (06:05)
[2024-09-16 06:40] LABS: Hematocrit (blood only) 32.7 % (37.0-47.0); Hemoglobin 10.1 g/dl (12.0-16.0); Mean Corpuscular Hemoglobin 33.4 pg (25.0-34.0); Mean Corpuscular Hgb Conc 30.9 g/dL (32.0-36.0); Mean Corpuscular Volume 108.3 fL (80.0-100.0); Mean Platelet Volume 9.8 fL (9.4-12.4); Platelet Count 239 K/uL (130-400); RDW Coefficient of Variation 15.7 % (11.5-14.5); RDW Standard Deviation 63.3 fL (36.4-46.3); Red Blood Count 3.02 M/uL (4.20-5.40)
[2024-09-16 07:01] LABS: BUN Creatinine Ratio 20.7 (10-20); Calcium 8.2 mg/dl (8.6-10.3); Creatinine Clr Calc Pharmacy 81.4 ml/min; Magnesium 2.1 mg/dl (1.7-2.4); Phosphorus 3.7 mg/dl (2.5-4.9); Potassium 3.8 mmol/L (3.5-5.1)
--- NOTE | 2024-09-16 13:27 | Hospitalist Progress Note ---
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 Since last Wednesday she is having epigastric abdominal pain 9/10 in severity radiating to the back. Associated with nausea. Did not moved her bowels since last several days and not even moving gas. Poor appetite. Also having headache. Runny nose with bloody yellow drainage. Has cough. And sore throat for last few days. Denies any fevers. Denies chest pain. Has some shortness of breath. Not micturating much. No rash. Hemodynamics are okay. Abdominal pain Epigastric region radiating to back going on for last few days Lipase normal. LFTs okay. Lactic acid okay. Respiratory BioFire negative. CT of the abdomen pelvis shows unchanged left adrenal mass. Bilateral hydronephrosis. Interval worsening of bile duct dilatation. ER discussed with GI and advised for MRCP MRCP obtained IV fluids, pain control Continue home cimetidine and sucralfate Close monitor GI consulted and discussed with - LFTs are unremarkable, CT w/ interval worsening of bile duct dilatation up to 13mm, mild small bowel wall thickening, raising the possibility of infectious enteritis or inflammatory bowel disease. She had EGD/Colonoscopy in May without findings of inflammatory bowel disease. Findings did show that she had celiac disease but that is chronic and she has had some noncompliance with her diet. Her MRCP here showed was unremarkable without any choledocholithiasis noted she does have history of pancreatic divisum. At this point I would just treat her supportively as I think she has infectious enteritis that is slowly getting better. I would make sure she has a bowel movement with her persistent MiraLAX. I would start a full liquid diet and advance to soft solids tomorrow. She can follow-up with [facility]. There is no role for repeat EGD or endoluminal evaluation. Bilateral hydronephrosis Possible UTI Empiric aztreonam Will follow urine cultures Urology consulted History of asthma Continue home inhalers Sleep apnea CPAP nightly Hypothyroidism On Synthyroid History of A-fib Not on anticoagulant secondary to anemia On verapamil and aspirin Celiac disease Irritable bowel syndrome Chronic abdominal pain Gluten-free diet Continue PPI cimetidine and sucralfate Chronic anemia Receives iron Hemoglobin Hyperlipidemia History of statin intolerance Hypertension On verapamil History of CAD On verapamil and aspirin Hypotension on midodrine. DVT prophylaxis SCDs for now Disposition Medical floor Full code Admission and Anticipated Discharge Date Admission Date: September 14, 2024 Subjective Pt seen in follow up of abd. pain MRCP obtained GI and urology consulted, discussed with recommend to continue Aztreonam , likely infectious enteritis Pt is lying in bed in NAD but continues to have epigastric abd. discomfort, says slightly improved from yesterday, would like to have her food advanced no fever, chills, chest pain or shortness of breath Stool pcr ordered - uncollected - pt did not have a BM yet Review of Systems Review of Systems: All systems reviewed & are unremarkable except as noted in Subjective Physical Exam Physical Exam: General- slim elderly F in NAD Head- atraumatic Eyes- PERRL. Neck- supple, no JVD. Lungs- clear to auscultation no wheezing or crackles Heart- regular rhythm; no murmur Abdomen- normal bowel sounds, soft, +epigastric tenderness, no distension Extremities- no pretibial edema, no erythema seen Neuro- alert, oriented PERRL, no facial palsy; no dysarthria; moves extremities Results & Data Results & Data Vital Signs (Past 12 Hours) Vital Signs Temp Pulse Resp BP Pulse Ox O2 Del Method 09/16/24 07:55 36.4 C L 68 17 99/66 L 96 Room Air 09/16/24 07:07 60 16 96 Room Air Laboratory Results 09/16/24 Range/Units 06:16 WBC 2.80 L (4.8-10.8) K/ul RBC 3.02 L (4.20-5.40) M/uL Hgb 10.1 L (12.0-16.0) g/dl Hct 32.7 L (37.0-47.0) % MCV 108.3 H (80.0-100.0) fL MCH 33.4 (25.0-34.0) pg MCHC 30.9 L (32.0-36.0) g/dL RDW Std Deviation 63.3 H (36.4-46.3) fL RDW Coeff of Reginaldo 15.7 H (11.5-14.5) % Plt Count 239 (130-400) K/uL MPV 9.8 (9.4-12.4) fL Sodium 141 (136-145) mmol/L Potassium 3.8 (3.5-5.1) mmol/L Chloride 114 H (98-107) mmol/L Carbon Dioxide 24 (21-32) mmol/L Anion Gap 3 (3-11) BUN 12 (6-23) mg/dl Creatinine 0.58 L (0.6-1.2) mg/dl Est Cr Clr Drug Dosing 81.4 ml/min eGFR 101.62 BUN/Creatinine Ratio 20.7 H (10-20) Glucose 91 (70-99(Fasting)) mg/dl Calcium 8.2 L (8.6-10.3) mg/dl Phosphorus 3.7 (2.5-4.9) mg/dl Magnesium 2.1 (1.7-2.4) mg/dl Medications Administered Current Inpatient Medications Acetaminophen (Acetaminophen 325 Mg Tab) 650 mg PO Q4H PRN PRN Reason: pain/fever Stop: 10/14/24 22:39 Last Admin: 09/15/24 19:41 Dose: 650 mg Albuterol (Albuterol Hfa 8 Gm Inhaler) 1 puffs INH QID PRN; Protocol PRN Reason: SOB/WHEEZING Stop: 10/14/24 23:14 Amitriptyline HCl (Amitriptyline Hcl 25 Mg Tab) 75 mg PO HS [facility] Stop: 10/15/24 20:59 Last Admin: 09/15/24 21:06 Dose: 75 mg Aspirin (Aspirin 81 Mg Ectab) 81 mg PO DAILY [facility] Stop: 10/15/24 08:59 Last Admin: 09/16/24 09:10 Dose: 81 mg Atorvastatin Calcium (Atorvastatin 20 Mg Tab) 20 mg PO DAILY [facility] Stop: 10/15/24 08:59 Last Admin: 09/16/24 09:09 Dose: 20 mg Azelastine HCl (Azelastine Hcl 0.1% Nasal 200 Sprays/27,400 Mcg Btl) 1 sprays NA BID [facility] Stop: 10/15/24 08:59 Last Admin: 09/16/24 09:10 Dose: 1 sprays Famotidine (Famotidine 40 Mg Tablet) 40 mg PO DAILY [facility] Stop: 10/15/24 08:59 Last Admin: 09/16/24 09:09 Dose: 40 mg Fexofenadine HCl (Fexofenadine Hcl 180 Mg Tab) 180 mg PO DAILY [facility] Stop: 10/15/24 08:59 Last Admin: 09/16/24 09:09 Dose: 180 mg Fluticasone Propionate (Fluticasone Propionate Na Spr 16 Gm Btl) 2 sprays NA DAILY [facility] Stop: 10/15/24 08:59 Last Admin: 09/16/24 09:10 Dose: 2 sprays Fluticasone/Vilanterol (Fluticasone/Vilanterol 200/25mcg 14 Puffs/Inhaler) 1 puffs INH DAILY [facility] Stop: 10/15/24 08:59 Last Admin: 09/16/24 09:11 Dose: 1 puffs Folic Acid (Folic Acid 1 Mg Tab) 2 mg PO DAILY [facility] Stop: 10/15/24 08:59 Last Admin: 09/16/24 09:09 Dose: 2 mg Heparin Sodium (Porcine) (Heparin 100 Unit/Ml 5ml Flush) 5 ml FLUSH PRN PRN PRN Reason: Flush Stop: 10/15/24 13:07 Last Admin: 09/16/24 09:34 Dose: 5 ml Heparin Sodium (Porcine) (Heparin 100 Unit/Ml 5ml Flush) 5 ml FLUSH PRN PRN PRN Reason: Flush Stop: 10/16/24 03:43 Hydromorphone HCl (Hydromorphone Inj 0.5 Mg/0.5 Ml Syr) 0.25 mg IV Q6H PRN PRN Reason: Moderate Pain (Scale 4, 5, 6) Stop: 09/28/24 22:39 Hydromorphone HCl (Hydromorphone Inj 0.5 Mg/0.5 Ml Syr) 0.5 mg IV Q6H PRN PRN Reason: Severe Pain (Scale 7, 8, 9,10) Stop: 09/28/24 22:39 Last Admin: 09/16/24 13:13 Dose: 0.5 mg Hyoscyamine (Hyoscyamine Sulfate 0.375 Mg Tabcr) 0.375 mg PO Q6H PRN PRN Reason: Abdominal Pain Stop: 10/14/24 22:39 Aztreonam 2,000 mg/ Dextrose 100 mls @ 100 mls/hr IV Q8H [facility] Stop: 09/20/24 00:00 Last Infusion: 09/16/24 08:45 Dose: Infused Ipratropium [facility] (Ipratropium [facility] Hfa Inhaler) 1 puffs INH QID PRN; Protocol PRN Reason: SOB/WHEEZING Stop: 10/14/24 23:14 Levalbuterol HCl (Levalbuterol 1.25 Mg/3 Ml Neb) 1.25 mg NEB Q6H PRN PRN Reason: Shortness Of Breath Or Wheezin Stop: 10/14/24 22:39 Levalbuterol HCl (Levalbuterol 1.25 Mg/3 Ml Neb) 1.25 mg INH Q6R [facility] Stop: 10/15/24 01:59 Last Admin: 09/16/24 07:07 Dose: 1.25 mg Levothyroxine Sodium (Levothyroxine Sodium 100 Mcg Tablet) 100 mcg PO DAILYBB [facility] Stop: 10/15/24 06:29 Last Admin: 09/16/24 06:01 Dose: 100 mcg Midodrine (Midodrine Hcl 2.5 Mg Tab) 2.5 mg PO TID@0700,1200,1700 [facility] Stop: 10/15/24 06:59 Last Admin: 09/16/24 13:04 Dose: 2.5 mg Montelukast Sodium (Montelukast Sodium 10 Mg Tablet) 10 mg PO DAILY [facility] Stop: 10/15/24 08:59 Last Admin: 09/16/24 09:10 Dose: 10 mg Multivitamins (Multivitamin Tab) 1 tab PO DAILY [facility] Stop: 10/15/24 08:59 Last Admin: 09/16/24 09:10 Dose: 1 tab Ondansetron HCl (Ondansetron Inj 2 Mg/Ml 2 Ml Vial) 4 mg IV Q6H PRN PRN Reason: Nausea Stop: 10/14/24 22:39 Last Admin: 09/15/24 08:51 Dose: 4 mg Ondansetron HCl (Ondansetron 4 Mg Od Tab) 4 mg PO Q8H PRN PRN Reason: Nausea And Vomiting Stop: 10/15/24 01:57 Pantoprazole Sodium (Pantoprazole 40 Mg Tab) 40 mg PO BID [facility] Stop: 10/14/24 22:39 Last Admin: 09/16/24 09:08 Dose: 40 mg Polyethylene Glycol (Polyethylene (Miralax) 17 Gm Pack) 17 gm PO QID [facility] Stop: 10/15/24 08:59 Last Admin: 09/16/24 13:13 Dose: 17 gm Sucralfate (Sucralfate 1 Gm Tab) 1 gm PO ACHS [facility] Stop: 10/14/24 22:39 Last Admin: 09/16/24 13:05 Dose: 1 gm Topiramate (Topiramate 100 Mg Tab) 100 mg PO BID [facility] Stop: 10/14/24 22:39 Last Admin: 09/16/24 09:08 Dose: 100 mg Triamcinolone Acetonide (Triamcinolone Acet 0.1% Cr 15 Gm Tube) 1 appln TOP BID [facility] Stop: 10/15/24 08:59 Last Admin: 09/16/24 09:11 Dose: 1 appln Verapamil HCl (Verapamil Hcl 40 Mg Tab) 40 mg PO TID [facility] Stop: 10/14/24 22:39 Last Admin: 09/16/24 13:15 Dose: 40 mg
[2024-09-17 06:56] LABS: Hematocrit (blood only) 34.5 % (37.0-47.0); Hemoglobin 10.5 g/dl (12.0-16.0); Mean Corpuscular Hemoglobin 33.4 pg (25.0-34.0); Mean Corpuscular Hgb Conc 30.4 g/dL (32.0-36.0); Mean Corpuscular Volume 109.9 fL (80.0-100.0); Mean Platelet Volume 10.1 fL (9.4-12.4); Platelet Count 271 K/uL (130-400); RDW Coefficient of Variation 15.8 % (11.5-14.5); RDW Standard Deviation 63.8 fL (36.4-46.3); Red Blood Count 3.14 M/uL (4.20-5.40); White Blood Count 3.91 K/ul (4.8-10.8)
[2024-09-17 07:20] LABS: Calcium 8.5 mg/dl (8.6-10.3); Creatinine Clr Calc Pharmacy 76.1 ml/min; Phosphorus 3.7 mg/dl (2.5-4.9)
--- NOTE | 2024-09-17 08:30 | Hospitalist Progress Note ---
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 Since last Wednesday she is having epigastric abdominal pain 9/10 in severity radiating to the back. Associated with nausea. Did not moved her bowels since last several days and not even moving gas. Poor appetite. Also having headache. Runny nose with bloody yellow drainage. Has cough. And sore throat for last few days. Denies any fevers. Denies chest pain. Has some shortness of breath. Not micturating much. No rash. Hemodynamics are okay. Abdominal pain Epigastric region radiating to back going on for last few days Lipase normal. LFTs okay. Lactic acid okay. Respiratory BioFire negative. CT of the abdomen pelvis shows unchanged left adrenal mass. Bilateral hydronephrosis. Interval worsening of bile duct dilatation. ER discussed with GI and advised for MRCP MRCP obtained IV fluids, pain control Continue home cimetidine and sucralfate Close monitor GI consulted and discussed with - LFTs are unremarkable, CT w/ interval worsening of bile duct dilatation up to 13mm, mild small bowel wall thickening, raising the possibility of infectious enteritis or inflammatory bowel disease. She had EGD/Colonoscopy in May without findings of inflammatory bowel disease. Findings did show that she had celiac disease but that is chronic and she has had some noncompliance with her diet. I agree with checking a TTG and IgA. Her MRCP here showed was unrema rkable without any choledocholithiasis noted she does have history of pancreatic divisum. At this point I would just treat her supportively as I think she has infectious enteritis that is slowly getting better. I would make sure she has a bowel movement with her persistent MiraLAX. I would start a full liquid diet and advance to soft solids tomorrow. She can follow-up with [facility]. There is no role for repeat EGD or endoluminal evaluation. TTG, IgA - ordered Pt still did not have a BM Pt is on miralax, will add suppository Stool pcr ordered Pt also reports eating grapefruit to help w/ constipation Bilateral hydronephrosis Possible UTI Empiric aztreonam Will follow urine cultures Urology consulted History of asthma Continue home inhalers Sleep apnea CPAP nightly Hypothyroidism On Synthyroid History of A-fib Not on anticoagulant secondary to anemia On verapamil and aspirin Celiac disease Irritable bowel syndrome Chronic abdominal pain Gluten-free diet Continue PPI cimetidine and sucralfate Chronic anemia Receives iron Hemoglobin Hyperlipidemia History of statin intolerance Hypertension On verapamil History of CAD On verapamil and aspirin Hypotension on midodrine. DVT prophylaxis SCDs for now Disposition Medical floor Full code Admission and Anticipated Discharge Date Admission Date: September 14, 2024 Subjective Pt seen in follow up of abd. pain MRCP obtained GI and urology consulted, discussed with recommend to continue Aztreonam , likely infectious enteritis Pt is lying in bed in NAD but continues to have epigastric abd. discomfort, says it's improved, but did not have a BM yet no fever, chills, chest pain or shortness of breath Stool pcr ordered - uncollected - pt did not have a BM yet Review of Systems Review of Systems: All systems reviewed & are unremarkable except as noted in Subjective Physical Exam Physical Exam: General- slim elderly F in NAD Head- atraumatic Eyes- PERRL. Neck- supple, no JVD. Lungs- clear to auscultation no wheezing or crackles Heart- regular rhythm; no murmur Abdomen- normal bowel sounds, soft, +epigastric tenderness imroved, no distension Extremities- no pretibial edema, no erythema seen Neuro- alert, oriented PERRL, no facial palsy; no dysarthria; moves extremities Results & Data Results & Data Vital Signs (Past 12 Hours) Vital Signs Temp Pulse Pulse Resp BP Pulse Ox O2 Del Method 09/17/24 08:07 36.8 C 74 18 122/64 95 Room Air 09/17/24 07:42 60 15 98 Room Air 09/17/24 00:37 63 18 93 BiPAP 09/16/24 23:21 61 18 100 09/16/24 20:55 36.6 C 75 16 126/74 98 Room Air O2 Flow Rate 09/17/24 08:07 09/17/24 07:42 03/16/25 00:37 09/16/24 23:21 2 09/16/24 20:55 Laboratory Results 09/17/24 Range/Units 06:10 WBC 3.91 L (4.8-10.8) K/ul RBC 3.14 L (4.20-5.40) M/uL Hgb 10.5 L (12.0-16.0) g/dl Hct 34.5 L (37.0-47.0) % MCV 109.9 H (80.0-100.0) fL MCH 33.4 (25.0-34.0) pg MCHC 30.4 L (32.0-36.0) g/dL RDW Std Deviation 63.8 H (36.4-46.3) fL RDW Coeff of Reginaldo 15.8 H (11.5-14.5) % Plt Count 271 (130-400) K/uL MPV 10.1 (9.4-12.4) fL Sodium 141 (136-145) mmol/L Potassium 4.0 (3.5-5.1) mmol/L Chloride 114 H (98-107) mmol/L Carbon Dioxide 24 (21-32) mmol/L Anion Gap 3 (3-11) BUN 13 (6-23) mg/dl Creatinine 0.62 (0.6-1.2) mg/dl Est Cr Clr Drug Dosing 76.1 ml/min eGFR 100.00 BUN/Creatinine Ratio 21.0 H (10-20) Glucose 80 (70-99(Fasting)) mg/dl Calcium 8.5 L (8.6-10.3) mg/dl Phosphorus 3.7 (2.5-4.9) mg/dl Magnesium 2.0 (1.7-2.4) mg/dl Medications Administered Current Inpatient Medications Acetaminophen (Acetaminophen 325 Mg Tab) 650 mg PO Q4H PRN PRN Reason: pain/fever Stop: 10/14/24 22:39 Last Admin: 09/16/24 18:14 Dose: 650 mg Albuterol (Albuterol Hfa 8 Gm Inhaler) 1 puffs INH QID PRN; Protocol PRN Reason: SOB/WHEEZING Stop: 10/14/24 23:14 Amitriptyline HCl (Amitriptyline Hcl 25 Mg Tab) 75 mg PO HS [facility] Stop: 10/15/24 20:59 Last Admin: 09/16/24 20:12 Dose: 75 mg Aspirin (Aspirin 81 Mg Ectab) 81 mg PO DAILY [facility] Stop: 10/15/24 08:59 Last Admin: 09/17/24 07:57 Dose: 81 mg Atorvastatin Calcium (Atorvastatin 20 Mg Tab) 20 mg PO DAILY [facility] Stop: 10/15/24 08:59 Last Admin: 09/17/24 07:59 Dose: 20 mg Azelastine HCl (Azelastine Hcl 0.1% Nasal 200 Sprays/27,400 Mcg Btl) 1 sprays NA BID [facility] Stop: 10/15/24 08:59 Last Admin: 09/17/24 07:59 Dose: 1 sprays Famotidine (Famotidine 40 Mg Tablet) 40 mg PO DAILY [facility] Stop: 10/15/24 08:59 Last Admin: 09/17/24 07:57 Dose: 40 mg Fexofenadine HCl (Fexofenadine Hcl 180 Mg Tab) 180 mg PO DAILY [facility] Stop: 10/15/24 08:59 Last Admin: 09/17/24 07:57 Dose: 180 mg Fluticasone Propionate (Fluticasone Propionate Na Spr 16 Gm Btl) 2 sprays NA DAILY [facility] Stop: 10/15/24 08:59 Last Admin: 09/17/24 07:59 Dose: 2 sprays Fluticasone/Vilanterol (Fluticasone/Vilanterol 200/25mcg 14 Puffs/Inhaler) 1 puffs INH DAILY [facility] Stop: 10/15/24 08:59 Last Admin: 09/17/24 07:58 Dose: 1 puffs Folic Acid (Folic Acid 1 Mg Tab) 2 mg PO DAILY [facility] Stop: 10/15/24 08:59 Last Admin: 09/17/24 07:57 Dose: 2 mg Heparin Sodium (Porcine) (Heparin 100 Unit/Ml 5ml Flush) 5 ml FLUSH PRN PRN PRN Reason: Flush Stop: 10/15/24 13:07 Last Admin: 09/16/24 20:08 Dose: 5 ml Heparin Sodium (Porcine) (Heparin 100 Unit/Ml 5ml Flush) 5 ml FLUSH PRN PRN PRN Reason: Flush Stop: 10/16/24 03:43 Hydromorphone HCl (Hydromorphone Inj 0.5 Mg/0.5 Ml Syr) 0.25 mg IV Q6H PRN PRN Reason: Moderate Pain (Scale 4, 5, 6) Stop: 09/28/24 22:39 Hydromorphone HCl (Hydromorphone Inj 0.5 Mg/0.5 Ml Syr) 0.5 mg IV Q6H PRN PRN Reason: Severe Pain (Scale 7, 8, 9,10) Stop: 09/28/24 22:39 Last Admin: 09/17/24 05:26 Dose: 0.5 mg Hyoscyamine (Hyoscyamine Sulfate 0.375 Mg Tabcr) 0.375 mg PO Q6H PRN PRN Reason: Abdominal Pain Stop: 10/14/24 22:39 Aztreonam 2,000 mg/ Dextrose 100 mls @ 100 mls/hr IV Q8H [facility] Stop: 09/20/24 00:00 Last Admin: 09/17/24 07:58 Dose: 100 mls/hr Ipratropium [place] (Ipratropium [place] Hfa Inhaler) 1 puffs INH QID PRN; Protocol PRN Reason: SOB/WHEEZING Stop: 10/14/24 23:14 Levalbuterol HCl (Levalbuterol 1.25 Mg/3 Ml Neb) 1.25 mg NEB Q6H PRN PRN Reason: Shortness Of Breath Or Wheezin Stop: 10/14/24 22:39 Levalbuterol HCl (Levalbuterol 1.25 Mg/3 Ml Neb) 1.25 mg INH Q6R [facility] Stop: 10/15/24 01:59 Last Admin: 09/17/24 07:42 Dose: 1.25 mg Levothyroxine Sodium (Levothyroxine Sodium 100 Mcg Tablet) 100 mcg PO DAILYBB [facility] Stop: 10/15/24 06:29 Last Admin: 09/17/24 05:26 Dose: 100 mcg Midodrine (Midodrine Hcl 2.5 Mg Tab) 2.5 mg PO TID@0700,1200,1700 [facility] Stop: 10/15/24 06:59 Last Admin: 09/17/24 07:57 Dose: 2.5 mg Montelukast Sodium (Montelukast Sodium 10 Mg Tablet) 10 mg PO DAILY [facility] Stop: 10/15/24 08:59 Last Admin: 09/17/24 07:57 Dose: 10 mg Multivitamins (Multivitamin Tab) 1 tab PO DAILY [facility] Stop: 10/15/24 08:59 Last Admin: 09/17/24 07:58 Dose: 1 tab Ondansetron HCl (Ondansetron Inj 2 Mg/Ml 2 Ml Vial) 4 mg IV Q6H PRN PRN Reason: Nausea Stop: 10/14/24 22:39 Last Admin: 09/16/24 22:30 Dose: 4 mg Ondansetron HCl (Ondansetron 4 Mg Od Tab) 4 mg PO Q8H PRN PRN Reason: Nausea And Vomiting Stop: 10/15/24 01:57 Pantoprazole Sodium (Pantoprazole 40 Mg Tab) 40 mg PO BID [facility] Stop: 10/14/24 22:39 Last Admin: 09/17/24 07:58 Dose: 40 mg Polyethylene Glycol (Polyethylene (Miralax) 17 Gm Pack) 17 gm PO QID [facility] Stop: 10/15/24 08:59 Last Admin: 09/17/24 08:12 Dose: 17 gm Sucralfate (Sucralfate 1 Gm Tab) 1 gm PO ACHS [facility] Stop: 10/14/24 22:39 Last Admin: 09/17/24 07:57 Dose: 1 gm Topiramate (Topiramate 100 Mg Tab) 100 mg PO BID [facility] Stop: 10/14/24 22:39 Last Admin: 09/17/24 08:00 Dose: 100 mg Triamcinolone Acetonide (Triamcinolone Acet 0.1% Cr 15 Gm Tube) 1 appln TOP BID [facility] Stop: 10/15/24 08:59 Last Admin: 09/17/24 08:00 Dose: 1 appln Verapamil HCl (Verapamil Hcl 40 Mg Tab) 40 mg PO TID [facility] Stop: 10/14/24 22:39 Last Admin: 09/17/24 08:00 Dose: 40 mg
[2024-09-17] MEDS: bisacodyL 10 MG SUPP PR ONE (10:11)
[2024-09-18 08:44] LABS: Hematocrit (blood only) 37.5 % (37.0-47.0); Hemoglobin 11.4 g/dl (12.0-16.0); Mean Corpuscular Hemoglobin 33.3 pg (25.0-34.0); Mean Corpuscular Hgb Conc 30.4 g/dL (32.0-36.0); Mean Corpuscular Volume 109.6 fL (80.0-100.0); Mean Platelet Volume 9.9 fL (9.4-12.4); Platelet Count 286 K/uL (130-400); RDW Coefficient of Variation 15.6 % (11.5-14.5); RDW Standard Deviation 63.4 fL (36.4-46.3); Red Blood Count 3.42 M/uL (4.20-5.40); White Blood Count 4.48 K/ul (4.8-10.8)
[2024-09-18 09:09] LABS: Calcium 9.1 mg/dl (8.6-10.3); Creatinine Clr Calc Pharmacy 67.4 ml/min; Magnesium 1.9 mg/dl (1.7-2.4); Phosphorus 3.1 mg/dl (2.5-4.9); Potassium 3.6 mmol/L (3.5-5.1)
[2024-09-18] MEDS: oxyCODONE HCL IR 5 MG TAB (IMMEDIATE RELEASE) PO PRN (10:03)
--- NOTE | 2024-09-18 12:38 | Hospitalist Progress Note ---
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 Since last Wednesday she is having epigastric abdominal pain 9/10 in severity radiating to the back. Associated with nausea. Did not moved her bowels since last several days and not even moving gas. Poor appetite. Also having headache. Runny nose with bloody yellow drainage. Has cough. And sore throat for last few days. Denies any fevers. Denies chest pain. Has some shortness of breath. Not micturating much. No rash. Hemodynamics are okay. Abdominal pain Epigastric region radiating to back going on for last few days Lipase normal. LFTs okay. Lactic acid okay. Respiratory BioFire negative. CT of the abdomen pelvis shows unchanged left adrenal mass. Bilateral hydronephrosis. Interval worsening of bile duct dilatation. ER discussed with GI and advised for MRCP MRCP obtained IV fluids, pain control Continue home cimetidine and sucralfate Close monitor GI consulted and discussed with - LFTs are unremarkable, CT w/ interval worsening of bile duct dilatation up to 13mm, mild small bowel wall thickening, raising the possibility of infectious enteritis or inflammatory bowel disease. She had EGD/Colonoscopy in May without findings of inflammatory bowel disease. Findings did show that she had celiac disease but that is chronic and she has had some noncompliance with her diet. I agree with checking a TTG and IgA. Her MRCP here showed was unre markable without any choledocholithiasis noted she does have history of pancreatic divisum. At this point I would just treat her supportively as I think she has infectious enteritis that is slowly getting better. I would make sure she has a bowel movement with her persistent MiraLAX. I would start a full liquid diet and advance to soft solids tomorrow. She can follow-up with [facility]. There is no role for repeat EGD or endoluminal evaluation. TTG, IgA - ordered and pending Pt had BMs yesterday Pt is on miralax Stool pcr ordered - uncollected Pt also reports eating grapefruit to help w/ constipation Pt is tolerating diet Abd. apin improved, plan to DC tmrw Bilateral hydronephrosis Possible UTI,but ucultx inconclusive receiving Empiric aztreonam Urology consulted History of asthma Continue home inhalers Sleep apnea CPAP nightly Hypothyroidism On Synthyroid History of A-fib Not on anticoagulant secondary to anemia On verapamil and aspirin Celiac disease Irritable bowel syndrome Chronic abdominal pain Gluten-free diet Continue PPI cimetidine and sucralfate Chronic anemia Receives iron Hemoglobin Hyperlipidemia History of statin intolerance Hypertension On verapamil History of CAD On verapamil and aspirin Hypotension on midodrine. DVT prophylaxis SCDs for now Disposition Medical floor Full code Admission and Anticipated Discharge Date Admission Date: September 14, 2024 Subjective Pt seen in follow up of abd. pain MRCP obtained GI and urology consulted, discussed with recommend to continue Aztreonam , likely infectious enteritis Today pt is lying in bed in NAD but continues to have epigastric abd. discomfort, improved now, pt had BMs no fever, chills, chest pain or shortness of breath Stool pcr ordered - uncollected Review of Systems Review of Systems: All systems reviewed & are unremarkable except as noted in Subjective Physical Exam Physical Exam: General- slim elderly F in NAD Head- atraumatic Eyes- PERRL. Neck- supple, no JVD. Lungs- clear to auscultation no wheezing or crackles Heart- regular rhythm; no murmur Abdomen- normal bowel sounds, soft, +epigastric tenderness imroved, no distension Extremities- no pretibial edema, no erythema seen Neuro- alert, oriented PERRL, no facial palsy; no dysarthria; moves extremities Results & Data Results & Data Vital Signs (Past 12 Hours) Vital Signs Temp Pulse Resp BP Pulse Ox O2 Del Method FiO2 09/18/24 12:23 71 15 94 Room Air 21 09/18/24 11:30 102/59 L 09/18/24 08:24 Room Air 09/18/24 07:43 36.7 C 64 16 117/71 95 Room Air 09/18/24 07:23 64 14 96 Room Air 09/18/24 06:19 67 117/72 Laboratory Results 09/18/24 Range/Units 08:08 WBC 4.48 L (4.8-10.8) K/ul RBC 3.42 L (4.20-5.40) M/uL Hgb 11.4 L (12.0-16.0) g/dl Hct 37.5 (37.0-47.0) % MCV 109.6 H (80.0-100.0) fL MCH 33.3 (25.0-34.0) pg MCHC 30.4 L (32.0-36.0) g/dL RDW Std Deviation 63.4 H (36.4-46.3) fL RDW Coeff of Reginaldo 15.6 H (11.5-14.5) % Plt Count 286 (130-400) K/uL MPV 9.9 (9.4-12.4) fL Sodium 140 (136-145) mmol/L Potassium 3.6 (3.5-5.1) mmol/L Chloride 112 H (98-107) mmol/L Carbon Dioxide 23 (21-32) mmol/L Anion Gap 5 (3-11) BUN 14 (6-23) mg/dl Creatinine 0.70 (0.6-1.2) mg/dl Est Cr Clr Drug Dosing 67.4 ml/min eGFR 97.12 BUN/Creatinine Ratio 20.0 (10-20) Glucose 94 (70-99(Fasting)) mg/dl Calcium 9.1 (8.6-10.3) mg/dl Phosphorus 3.1 (2.5-4.9) mg/dl Magnesium 1.9 (1.7-2.4) mg/dl
[2024-09-18] MEDS: POTASSIUM CHLORIDE CRTAB 20 MEQ TABCR PO STA (14:06)
[2024-09-19 07:19] VITALS: TEMP 98.1
[2024-09-19 07:34] VITALS: RESP 16
[2024-09-19] MEDS: HYOSCYAMINE SULFATE 0.375 MG TABCR PO PRN (09:11)
[2024-09-19 09:46] LABS: Adenovirus F 40/41 PCR Not Detected (NotDetected); Astrovirus PCR Not Detected (NotDetected); Campylobacter PCR Not Detected (NotDetected); Cryptosporidium PCR Not Detected (NotDetected); Cyclospora cayetanensis PCR Not Detected (NotDetected); Entamoeba histolytica PCR Not Detected (NotDetected); Enteroaggregative E.coli(EAEC) Not Detected (NotDetected); Enteropathogenic E.coli (EPEC) Not Detected (NotDetected); Enterotoxigenic E.coli (ETEC) Not Detected (NotDetected); Giardia lamblia PCR Not Detected (NotDetected); Plesiomonas shigelloides PCR Not Detected (NotDetected); Rotavirus A PCR Not Detected (NotDetected); Salmonella PCR Not Detected (NotDetected); Sapovirus PCR Not Detected (NotDetected); Shiga-like Toxin E.coli (STEC) Not Detected (NotDetected); Shigella/Enteroinvasive E.coli Not Detected (NotDetected); Vibrio cholerae PCR Not Detected (NotDetected); Vibrio species PCR Not Detected (NotDetected); Yersinia enterocolitica PCR Not Detected (NotDetected)
[2024-09-19 10:15] LABS: Norovirus GI/GII PCR DETECTED (NotDetected)
--- NOTE | 2024-09-19 10:40 | Discharge Summary ---
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 Since last Wednesday she is having epigastric abdominal pain 9/10 in severity r adiating to the back. Associated with nausea. Did not moved her bowels since last several days and not even moving gas. Poor appetite. Also having headache. Runny nose with bloody yellow drainage. Has cough. And sore throat for last few days. Denies any fevers. Denies chest pain. Has some shortness of breath. Not micturating much. No rash. Hemodynamics are okay. Past medical history. As mentioned above Past surgical history. Allograft for spine surgery. Left knee arthroscopy. Left heart catheterization. Colonoscopy. EGD. EGD with biopsy. EGD with endoscopic ultrasound. Laparoscopic suggestion of lesions for endometriosis. Nasal surgery. Cervical spine fusion surgery. A port insertion. Reconstruction of nose. Laminectomy. Cholecystectomy. Total abdominal hyster ectomy with removal of tubes. Social history. . No smoking. No alcohol use. No drug use. Family history. Mother has arthritis. GERD. Hiatal hernia. A-fib. Sleep apnea. Bipolar. Osteoporosis. Stroke. History of bladder cancer. Father had A-fib. Coronary disease. Mitochondrial disease. Admission Exam Per Admitting Provider General- Not in distress Head- atraumatic Eyes- PERRL. ENT- oropharynx clear Neck- supple, no JVD. Lungs- clear to auscultation no wheezing or crackles Heart- regular rhythm; no murmur, no gallop. Abdomen- normal bowel sounds, soft, epigastric tenderness with mild guarding present, no distension Extremities- no pretibial edema, no erythema seen Neuro- alert, oriented PERRL, no facial palsy; no dysarthria; moves extremities Principal Diagnosis + Norovirus Discharge Exam General- slim elderly F in NAD Head- atraumatic Eyes- PERRL. Neck- supple, no JVD. Lungs- clear to auscultation no wheezing or crackles Heart- regular rhythm; no murmur Abdomen- normal bowel sounds, soft, +epigastric tenderness imroved, no distension Extremities- no pretibial edema, no erythema seen Neuro- alert, oriented PERRL, no facial palsy; no dysarthria; moves extremities Discharge Data Allergies Allergy/AdvReac Type Severity Reaction Status Date / Time bee venom protein (honey bee) Allergy Severe ANAPHYLAXIS Verified 01/27/24 19:35 coconut Allergy Severe RASH; SOB Verified 01/27/24 19:35 gluten Allergy Severe CELIAC'S Verified 01/27/24 19:35 latex Allergy Severe Anaphylaxis Verified 01/27/24 19:35 Penicillins Allergy Severe Anaphylaxis Verified 01/27/24 19:35 Sulfa (Sulfonamide Allergy Severe Anaphylaxis Verified 01/27/24 19:35 Antibiotics) ROBER Inhibitors Allergy Intermediate RASH/TACHYC Verified 01/27/24 19:35 ARDIA cefaclor Allergy Intermediate CECLOR--RASH/UPSET Verified 01/27/24 19:35 STOMACH egg Allergy Intermediate RASH & Verified 01/27/24 19:35 Bloating Influenza Virus Vaccines Allergy Intermediate rash and Verified 01/27/24 19:35 bloating lactose Allergy Intermediate BLOATING; Verified 01/27/24 19:35 DIARRHEA; VOMITING tetracycline Allergy Intermediate NAUSEA/VOMI Verified 01/27/24 19:35 TING/RASH Quinolones Allergy Unknown ALLERGY TO Verified 01/27/24 19:35 AVELOX ,CAN TAKE CIPRO OR LEVAQUIN W/O RXN Beta-Blockers AdvReac Intermediate intolerance Verified 01/27/24 19:35 (Beta-Adrenergic Bloc as per records Consultations 09/14/24 19:43 ED Decision to Admit Stat 09/15/24 08:00 Consult Gastroenterology Routine Consult Urology Routine Ordered Studies 09/14/24 17:06 CT Abd and Pelvis [CT abd pelvis IV con only] Stat Findings: The liver is mildly enlarged measuring 19.2 cm. There is no sign of cirrhosis or significant fatty infiltration. No liver mass lesion is seen. The portal vein is patent. The gallbladder has been removed. There is worsened intrahepatic and extra hepatic bile duct dilatation that may be due to the postcholecystectomy state, with the common bile duct measuring up to 13 mm The spleen is of normal size. No focal splenic lesion is evident. The pancreas appears normal with no sign of acute or chronic pancreatitis and no mass lesion noted. The pancreatic duct is of normal caliber. There is an unchanged 3.3 cm left adrenal nodule. The right adrenal gland appears normal No definite renal or proximal ureteral calculi are seen on this contrast-enhanced study. There is unchanged left greater than right hydronephrosis, without perinephric stranding. No renal mass lesion is identified. There are 2 small 8 mm left renal cysts The aorta is of normal caliber. No abdominal adenopathy is seen. The stomach appears normal. There is no sign of small bowel obstruction. There is possible mild small bowel wall thickening. The colon appears unremarkable. The appendix appears normal also. No free intraperitoneal fluid or air is identified. No distal ureteral or bladder calculi are seen. No bladder mass lesion is evident. The iliac arteries are of normal caliber. No pelvic adenopathy is noted. The uterus has been removed The lungs bases appear clear. Lumbar degenerative disc disease is seen. No fracture is identified. No focal osseous lesion is seen Impression: 1. Unchanged 3.3 cm left adrenal mass. This has an indeterminate appearance but is likely benign given the stability. Dedicated adrenal protocol CT or MRI could be considered for further evaluation 2. Unchanged left worse than right hydronephrosis without visible obstructing lesion. This may be residual from prior obstruction or reflux or could be due to intrinsic UPJ obstruction 3. Interval worsening of bile duct dilatation. This could be due to the postcholecystectomy state, though the dilatation is greater than typically seen. No clear obstructing lesion is seen. ERCP or MRCP could be considered for further evaluation 4. Small left renal cysts 5. Possible mild small bowel wall thickening, raising the possibility of infectious enteritis or inflammatory bowel disease 09/15/24 07:07 MR MRCP Urgent FINDINGS: Mild intra and extra hepatic biliary ductal dilatation has mildly increased since MRCP of April 09, [address] of the abdomen and pelvis January 27, 2024. The common bile duct measures 1 cm in caliber. No common bile duct calculi identified. The gallbladder is surgically absent. No hepatic lesions are identified on unenhanced exam. Bilateral collecting system dilatation is similar to prior exam. This is likely chronic. A recent left adrenal nodules also unchanged from earlier studies. This is likely benign. There is no abdominal lymphadenopathy or ascites. There is no pancreatic ductal dilatation IMPRESSION: 1. Mild biliary ductal dilatation, mildly increased since prior MRCP. This is likely related to cholecystectomy and could be correlated with liver function tests. 2. No common bile duct calculi identified. 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 Since last Wednesday she is having epigastric abdominal pain 9/10 in severity radiating to the back. Associated with nausea. Did not moved her bowels since last several days and not even moving gas. Poor appetite. Also having headache. Runny nose with bloody yellow drainage. Has cough. And sore throat for last few days. Denies any fevers. Denies chest pain. Has some shortness of breath. Not micturating much. No rash. Hemodynamics are okay. Abdominal pain secondary to Norovirus and constipation Epigastric region radiating to back going on for last few days Lipase normal. LFTs okay. Lactic acid okay. Respiratory BioFire negative. CT of the abdomen pelvis shows unchanged left adrenal mass. Bilateral hydronephrosis. Interval worsening of bile duct dilatation. ER discussed with GI and advised for MRCP MRCP obtained IV fluids, pain control Continue home cimetidine and sucralfate Close monitor GI consulted and discussed with - LFTs are unremarkable, CT w/ interval worsening of bile duct dilatation up to 13mm, mild small bowel wall thickening, raising the possibility of infectious enteritis or inflammatory bowel disease. She had EGD/Colonoscopy in May without findings of inflammatory bowel disease. Findings did show that she had celiac disease but that is chronic and she has had some noncompliance with her diet. I agree with checking a TTG and IgA. Her MRCP here showed was unremarkable without any choledocholithiasis noted she does have history of pancreatic divisum. At this point I would just treat her supportively as I think she has infectious enteritis that is slowly getting better. I would make sure she has a bowel movement with her persistent MiraLAX. I would start a full liquid diet and advance to soft solids tomorrow. She can follow-up with [facility]. There is no role for repeat EGD or endoluminal evaluation. TTG, IgA - ordered and pending Pt is having BMs now Pt is on miralax Stool pcr ordered - uncollected until today - posit. for Norovirus Pt is tolerating diet Abd. apin improved, plan to DC home and follow up w/ pcp / and GI as needed Bilateral hydronephrosis Possible UTI,but ucultx inconclusive received Empiric aztreonam Urology consulted History of asthma Continue home inhalers Sleep apnea CPAP nightly Hypothyroidism On Synthyroid History of A-fib Not on anticoagulant secondary to anemia On verapamil and aspirin Celiac disease Irritable bowel syndrome Chronic abdominal pain Gluten-free diet Continue PPI cimetidine and sucralfate Chronic anemia Receives iron Hemoglobin Hyperlipidemia History of statin intolerance Hypertension On verapamil History of CAD On verapamil and aspirin Hypotension on midodrine. Total Time Total Time Spent Total Time Spent (In Minutes): 40 Discharge Plan Discharge Items Patient Disposition: Home - Self-Care Reason For Visit: ADBOMINAL PAIN Discharge Diagnosis: + Norovirus Activity: Per Instructions section Non-emergency contact: Primary Care Provider Call non-emergency contact if: you have any medication questions and your symptoms worsen Follow-up/Referrals: Vicki Watson MD [Primary Care Provider] - (Date & Time 09/25/2024 1:20 PM Provider: Vicki Cadet MD Family Medicine [facility] ) Diet: Low Fiber Addtl Attending Provider Instructions: Follow up with your primary care doctor within a week. The appointment was scheduled for you for 09/25/2024. Make sure to stay well hydrated. Pending Studies at Discharge: Yes Studies:: TTG IgA (transglutaminase) Stand-Alone Forms: My [employer], Smoking Cessation Medications and DC Order Prescriptions: New oxycodone 5 mg Tablet 5 mg PO Q4 PRN (Reason: pain) Qty: 7 0RF Continued fluticasone propion-salmeterol [Advair Diskus] 250-50 mcg/dose Blister With Device 1 inh INHALATION BID atorvastatin 20 mg Tablet 20 mg PO DAILY cimetidine 400 mg Tablet 400 mg PO BID Rx Instructions: administer with meals hyoscyamine sulfate 0.375 mg Tablet Extended Release 12 Hr 0.375 mg PO Q6H PRN (Reason: Abdominal Pain) folic acid 1 mg Tablet 2 mg PO DAILY montelukast 10 mg Tablet 10 mg PO HS midodrine 2.5 mg Tablet 2.5 mg PO TID Rx Instructions: Take 1 tablet in the morning, 1 tablet at noon, 1 tablet at dinner levothyroxine 100 mcg Capsule 100 mcg PO DAILY Combivent Respimat 20-100 mcg/actuation Mist 1 puff INHALATION QID PRN (Reason: Shortness Of Breath Or Wheezing) Rx Instructions: space evenly during waking hours rabeprazole 20 mg Tablet,Delayed Release (Dr/Ec) 40 mg PO BID verapamil 40 mg Tablet 40 mg PO TID sucralfate 1 gram Tablet 1 g PO ACHS fexofenadine 180 mg Tablet 180 mg PO DAILY aspirin [Aspir-81] 81 mg Tablet,Delayed Release (Dr/Ec) 81 mg PO DAILY topiramate 100 mg Tablet 100 mg PO BID multivitamin Tablet 1 tab PO DAILY levalbuterol HCl 1.25 mg/3 mL Solution For Nebulization 1.25 mg INHALATION Q6H amitriptyline 75 mg Tablet 75 mg PO HS ondansetron 4 mg Tablet,Disintegrating 4 mg PO Q8H PRN (Reason: Nausea And Vomiting) Vitamin D2 25,000 unit Capsule 50,000 unit PO Rx Instructions: Take once capsul by mouth once a day, Wednesday and only. polyethylene glycol 3350 [Miralax] 17 gram Powder In Packet 17 g PO 4XD Rx Instructions: 17 gm up to 4 times a day to effect 1 stool per day. triamcinolone acetonide 0.1 % Cream 1 applic TOPICAL BID mometasone [Nasonex] 50 mcg/actuation Norton,Non-Aerosol 2 spray INTRANASAL BID Rx Instructions: administer into each nostril azelastine [Astelin] 137 mcg (0.1 %) Norton,Non-Aerosol 1 spray INTRANASAL BID Rx Instructions: administer into each nostril (DME) CPAP Machine Misc Rx Instructions: 1 LPM bled through CPAP during hours of sleep Discharge Orders: Discharge Order (Routine); Ordered 09/19/24 Ordered By: Fabrizio Sanches Admission Data Admit Date/Time: 09/14/24 20:39 Attending Provider: Fabrizio Sanches Admit Provider: Marcel Coello Primary Care Provider: Vicki Watson Other Providers: Marcel Coello; Enrique Craig; Lai Grfifiths; Laura Hardy; Dex Williamson; Hannah Olvera; Olivia Richadr; Flavio Thompson; Vicik Myers; Silverio Grossman; Carlos Dyer; Bob Austin
[2024-09-19] MEDS: ONDANSETRON 4 MG OD TAB PO PRN (13:11)
[2024-09-19 13:31] VITALS: PULSE 79; O2SAT 98
[2024-09-19 14:26] VITALS: BP 115/69
== END 2024-09-19 15:08 | disposition home or self-care (01) | DRG 392 ==
LOC: ED 15:42 → 3W 20:39

== ENCOUNTER 2025-03-11 17:02 | Inpatient (IN) ==
[2025-03-11] MEDS ORDERED: SODIUM CHLORIDE 0.9% 100 ML IV PRN (17:15)
--- NOTE | 2025-03-11 17:24 | Emergency Department Note ---
Impression & Plan Sepsis, Transaminitis, LILLIANA (acute kidney injury), Rupture of kidney, Elevated troponin, Atrial fibrillation with rapid ventricular response ED Provider Note NAME: SHAYY CARRILLO AGE: 64 SEX: F : 1960 ARRIVES VIA: Walk-In INFORMANT: Patient ED PROVIDER(S): Charles Siddiqui DO CHIEF COMPLAINT: Abdominal pain fever and lightheaded HPI: Patient is a 64-year-old female with a past medical history of SVT, bilateral hydronephrosis, A-fib with stent placement this past who presents to the ER for fevers of 102 since Wednesday. She been taking Tylenol and Motrin. She admits to abdominal pain. Denies any chest pain or shortness of breath. No cough or congestion. No dysuria, urgency or frequency that she is aware of. No other exacerbating or remitting factors. ADDITIONAL HISTORY OBTAINED: Per HPI Chronic Medical/Social Conditions Affecting Care: Per HPI PAST MEDICAL HISTORY:See Below PAST SURGICAL HISTORY:See Below FAMILY HISTORY:See Below SOCIAL HISTORY:See Below HOME MEDICATIONS:See Below ALLERGIES:See Below VITALS:See Below PHYSICAL EXAMINATION: GENERAL: Sitting up in bed, alert, ill-appearing, disheveled EYE EXAM: normal conjunctiva. OROPHARYNX: no exudate, no erythema, lips, buccal mucosa, and tongue normal and mucous membranes are moist NECK: supple, no nuchal rigidity, no adenopathy, non-tender LUNGS: Clear to auscultation. Normal chest wall mechanics HEART: no murmurs, S1 normal and S2 normal ABDOMEN: abdomen soft, non-tender, normo-active bowel sounds, no masses, no rebound or guarding. UPPER EXTREMITIES: upper extremities are grossly normal. LOWER EXTREMITIES: No pitting edema. NEURO EXAM: Normal sensorium, cranial nerves II-XII grossly intact, normal speech, no gross weakness of arms, no gross weakness of legs. MEDICAL DECISION MAKING: Patient is a 64-year-old female who presents to the ER for the above-stated complaint. IV was established and blood work was obtained. Labs show mild leukocytosis of 12,000. No significant anemia. VBG with a pH of 7.27. BMP with a creatinine of 2 from a baseline of 1. Transaminitis with an AST of 300 and ALT of 1000. Trope at the 100. UA consistent with UTI. Patient was covered with broad-spectrum antibiotics meropenem due to previous allergies. Patient was given 2.5 L of IV fluids. Initially came in with a heart rate in the 170s and broke into a sinus rhythm. She then rebounded back into A-fib with RVR. Case was discussed with Dr. Stern from urology. He reviewed the images. Recommended admission and Jose. Patient initially declined Jose but then was agreeable. Patient was admitted with sepsis likely secondary to UTI. Consults/Care Managements Discussions: Per [facility] Triage Nursing notes reviewed. Limited review of prior medical records performed Vital Signs: reviewed and remarkable for hypotensive, tachycardic Differential diagnosis: Differential diagnosis includes etiologies such as sepsis, UTI, pneumonia, metabolic, electrolyte abnormalities, cardiac sources, intracerebral event, toxicologic, neurological, as well as others were entertained. ER treatment provided: See below Diagnostics interpreted by me include EKG and cardiac monitoring as listed below: -Cardiac Monitoring: An order was placed for continuous cardiac monitoring. The monitor shows a rate of 140 with A-fib rhythm. -ECG: A-fib rate is 98 Normal axis No PVCs Nonspecific ST wave changes in the lateral leads -Laboratory studies: Interpreted by me as stated above in MDM and shown below. Imaging studies: Xrays: As interpreted by me: Portable AP upright 1 view of the chest shows no focal infiltrate CTs show: CT abdomen pelvis per my preliminary interpretation showed a large amount of free fluid around the kidney on the left Procedures: None Critical Care: I have personally spent 55 minutes of critical care time in the direct management of this patient. This includes bedside care, interpretation of diagnostic studies, and testing, discussion with consultants, patient, and family members, and other required patient management activities. This 55 minutes is in excess of all separately billable procedures. Past Med/Surg History Problem List (Updated 03/11/25 @ 22:22 by Charles Siddiqui DO) Elevated troponin (Acute) Rupture of kidney (Acute) LILLIANA (acute kidney injury) (Acute) Transaminitis (Acute) Sepsis (Acute) Atrial fibrillation with rapid ventricular response (Acute) Incontinence (Chronic) Adrenal nodule (Chronic) Renal cyst (Acute) Bilateral hydronephrosis (Chronic) Abdominal pain PSVT (paroxysmal supraventricular tachycardia) Elevated brain natriuretic peptide (BNP) level (Acute) Atrial tachycardia, paroxysmal Syncope (Acute) 01/2024 per records Dyspnea (Acute) Shortness of breath (Acute) PAF (paroxysmal atrial fibrillation) Sinus tachycardia (Acute) Palpitation (Acute) Hypokalemia Transaminitis Elevated LFTs (Acute) Encounter for pre-operative examination CYNTHIA (obstructive sleep apnea) (Chronic) Asthma, severe persistent (Chronic) Gastroparesis (Chronic) Celiac disease (Chronic) GERD (gastroesophageal reflux disease) (Chronic) IBS (irritable bowel syndrome) (Chronic) Hypothyroidism (Chronic) no current medication -- TSH normal without meds. CHARLES (iron deficiency anemia) (Chronic) ferrous sulfate QID. Dyslipidemia (Chronic) MRSA (methicillin resistant Staphylococcus aureus) (Chronic) 1999 dx nose septum wound 2019 dx in lungs Medical History Adrenal cyst monitoring unchanged per 2024 imaging; benign per PCP Anxiety Bilateral hydronephrosis Celiac disease Chronic anemia frequent iron and blood transfusions. Chronic back pain Chronic gastritis Chronic kidney disease stage 3 or 4 - follows with [facility] Nephrology Sari fish Chronic nausea Chronic obstructive pulmonary disease uncontrolled, uses inhalers daily Degenerative disc disease Depression Dyslipidemia Gastroparesis GERD (gastroesophageal reflux disease) History of COVID-19 has had ~5 times - last had ~early 2023, no hospitalization. Hx MRSA infection 1999 dx nose septum wound 2019 dx in lungs Hx of gastric ulcer Hx of renal calculi no surgical intervention needed Hypertension hx --> pt reports she is being treated for hypotension Hypothyroidism IBS (irritable bowel syndrome) CHARLES (iron deficiency anemia) Migraines Mitral valve prolapse follows with Dr Aguirre Narcolepsy NSVT (nonsustained ventricular tachycardia) - hx of nonsustained VT (isolated run on Zio without associated symptoms per cardio); intolerance to beta blockers Orthostatic hypotension Follows with [facility] cardiology On midodrine Osteoarthritis Paroxysmal A-fib - follows with Dr. Aguirre, takes asa daily (not anticoagulated due to anemia and fall risk per cardio records ) - patient referred at last cardio appt 10/2024 for evaluation for left appendage occluder device Poor intravenous access Port-A-Cath in place PSVT (paroxysmal supraventricular tachycardia) - no current issues per patient Renal cyst per medical record, pt unsure Seasonal allergies Sleep apnea CPAP + 2lpm of oxygen Surgical History H/O hand surgery with hardware (left) H/O insertion of central venous access port power port placed due to poor IV access + frequent blood draws/iron/blood transfusions History of ankle surgery bilateral ankle repair with hardware History of arthroscopic knee surgery left History of bronchoscopy in the History of cardiac radiofrequency ablation ~2014 [facility] History of cardioversion ~2019 History of colonoscopy History of dilatation and curettage History of esophagogastroduodenoscopy (EGD) Hx of cardiac cath "2010 - normal coronaries" (pt denies) Hx of cholecystectomy S/P nasal surgery multiple S/P spinal fusion C1 through L3 or L4 (~2021 at [facility]) S/P surgery on nasal septum "collapsed septum" s/p post op infection that "ate away the septum" S/P GLENNY-BSO S/P trigger finger release right hand Family History Other No family history of adverse response to anesthesia Social History Smoking Status: Never smoker Second Hand Exposure: No; Do You Dip or Chew Tobacco: No; Hx Alcohol Use: No Hx Substance Use: No Preferred Language: Angolan Communication Ability: Effective 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 Beliefs That Will Affect Care: None marital status: Current Living Situation: Spouse and Other Current Living Situation Comment: 4yr old twins at home Feels Safe at Home: Yes Safety Concerns: Feels Safe At This Time Assistive Devices: Oxygen - at Night Assistive Devices Comment: partial denture Allergies Allergies Allergy/AdvReac Type Severity Reaction Status Date / Time bee venom protein (honey bee) Allergy Severe ANAPHYLAXIS Verified 03/08/25 09:24 coconut Allergy Severe RASH; SOB Verified 03/08/25 09:24 gluten Allergy Severe CELIAC'S Verified 03/08/25 09:24 latex Allergy Severe Anaphylaxis Verified 03/08/25 09:24 Penicillins Allergy Severe Anaphylaxis Verified 03/08/25 09:24 Sulfa (Sulfonamide Allergy Severe Anaphylaxis Verified 03/08/25 09:24 Antibiotics) ROBER Inhibitors Allergy Intermediate RASH/TACHYC Verified 03/08/25 09:24 ARDIA cefaclor Allergy Intermediate CECLOR--RASH/UPSET Verified 03/08/25 09:24 STOMACH egg Allergy Intermediate RASH & Verified 03/08/25 09:24 Bloating Influenza Virus Vaccines Allergy Intermediate rash and Verified 03/08/25 09:24 bloating tetracycline Allergy Intermediate NAUSEA/VOMI Verified 03/08/25 09:24 TING/RASH Quinolones Allergy Unknown ALLERGY TO Verified 03/08/25 09:24 AVELOX ,CAN TAKE CIPRO OR LEVAQUIN W/O RXN Beta-Blockers AdvReac Intermediate intolerance Verified 03/08/25 09:24 (Beta-Adrenergic Bloc as per records lactose AdvReac Intermediate BLOATING; Verified 03/08/25 09:24 DIARRHEA; VOMITING Home Meds Home Medications Medication Instructions Recorded Confirmed aspirin 81 mg tablet,delayed 81 mg PO QAM 09/14/24 03/11/25 release atorvastatin 20 mg tablet 20 mg PO HS 09/14/24 03/11/25 cimetidine 400 mg tablet 400 mg PO BID 09/14/24 03/11/25 fexofenadine 180 mg tablet 180 mg PO QAM 09/14/24 03/11/25 fluticasone 250 mcg-salmeterol 50 1 inh inhalation BID 09/14/24 03/11/25 mcg/dose blistr powdr for inhalation (Advair Diskus) folic acid 1 mg tablet 1 mg PO BID 09/14/24 03/11/25 hyoscyamine sulfate 0.375 mg 0.375 mg PO Q6H PRN Abdominal Pain 09/14/24 03/11/25 tablet,extended release,12 hr ipratropium 20 mcg-albuterol 100 1 puff inhalation QID PRN 09/14/24 03/11/25 mcg/actuation mist for inhalation Shortness Of Breath Or Wheezing (Combivent Respimat) levothyroxine 100 mcg capsule 100 mcg PO QAM 09/14/24 03/11/25 midodrine 2.5 mg tablet 2.5 mg PO TID 09/14/24 03/11/25 montelukast 10 mg tablet 10 mg PO HS 09/14/24 03/11/25 multivitamin 1 tab PO QAM 09/14/24 03/11/25 rabeprazole 20 mg tablet,delayed 40 mg PO BID 09/14/24 03/11/25 release (AcipHex) sucralfate 1 gram tablet 1 g PO ACHS 09/14/24 03/11/25 topiramate 100 mg tablet 100 mg PO BID 09/14/24 03/11/25 CPAP Machine 09/15/24 03/11/25 amitriptyline 75 mg tablet 75 mg PO HS 09/15/24 03/11/25 azelastine 137 mcg (0.1 %) nasal 1 spray intranasal BID 09/15/24 03/11/25 spray levalbuterol HCl 1.25 mg/3 mL 1.25 mg inhalation Q6H 09/15/24 03/11/25 solution for nebulization mometasone 50 mcg/actuation nasal 2 spray intranasal BID 09/15/24 03/11/25 spray ondansetron 4 mg disintegrating 4 mg PO Q8H PRN Nausea And Vomiting 09/15/24 03/11/25 tablet polyethylene glycol 3350 17 gram 17 g PO QAM 09/15/24 03/11/25 oral powder packet (Miralax) epinephrine 0.3 mg/0.3 mL 0.3 mg subcut UD PRN Anaphylaxis 03/11/25 03/11/25 injection, auto-injector verapamil 180 mg 24 hr 180 mg PO DAILY 03/11/25 03/11/25 capsule,extended release Previous Rx's Medication Instructions Recorded levofloxacin 500 mg tablet 500 mg PO DAILY 7 days #7 tabs 03/08/25 oxybutynin chloride 5 mg tablet 5 mg PO Q8H PRN bladder spasms #9 03/08/25 tabs phenazopyridine 200 mg tablet 200 mg PO Q8H PRN pain #10 tabs 03/08/25 (Pyridium) Results & Data (ED) Vital Signs Vital Signs - 24 hr 03/11/25 17:06 03/11/25 17:24 03/11/25 17:53 Temperature 36.2 C L Temperature Source Temporal Artery Scan Pulse Rate 75 151 H Pulse Rate [Apical] 124 H Pulse Rhythm [Apical] Respiratory Rate 18 18 Respiratory Effort / Characteristics Non-Labored Spontaneous Respiratory Depth Normal Respiratory Pattern Regular Blood Pressure 68/49 L Blood Pressure [Left Arm] 114/84 Blood Pressure Mean 55 Blood Pressure Mean [Left Arm] 94 Blood Pressure Position [Left Arm] Semi-fowlers Pulse Oximetry 98 97 Oxygen Delivery Method Room Air Oxygen Flow Rate Sepsis Recent Fever Within 48 Hours No Sepsis New/Unexplained Change in Mental Status No Sepsis Action Taken by Nursing No Action Required 03/11/25 17:53 03/11/25 18:00 03/11/25 18:30 Temperature 36.5 C Temperature Source Oral Pulse Rate 124 H Pulse Rate [Apical] 109 H 116 H Pulse Rhythm [Apical] Respiratory Rate 18 18 20 Respiratory Effort / Characteristics Respiratory Depth Respiratory Pattern Blood Pressure Blood Pressure [Left Arm] 112/74 149/97 H Blood Pressure Mean Blood Pressure Mean [Left Arm] 86 114 Blood Pressure Position [Left Arm] Lying Lying Pulse Oximetry 97 93 100 Oxygen Delivery Method Room Air Room Air Nasal Cannula Oxygen Flow Rate 2 Sepsis Recent Fever Within 48 Hours Sepsis New/Unexplained Change in Mental Status Sepsis Action Taken by Nursing 03/11/25 19:00 03/11/25 19:30 03/11/25 20:00 Temperature Temperature Source Pulse Rate Pulse Rate [Apical] 139 H 133 H 116 H Pulse Rhythm [Apical] Irregular Respiratory Rate 22 22 16 Respiratory Effort / Characteristics Respiratory Depth Respiratory Pattern Blood Pressure Blood Pressure [Left Arm] 143/96 H 143/102 H 132/82 Blood Pressure Mean Blood Pressure Mean [Left Arm] 111 115 98 Blood Pressure Position [Left Arm] Pulse Oximetry 100 97 100 Oxygen Delivery Method Nasal Cannula Nasal Cannula Nasal Cannula Oxygen Flow Rate 2 2 2 Sepsis Recent Fever Within 48 Hours Sepsis New/Unexplained Change in Mental Status Sepsis Action Taken by Nursing Laboratory Data 03/11/25 20:01 03/11/25 17:26 Lab Results 03/11/25 03/11/25 03/11/25 Range/Units 17:26 17:29 19:29 WBC 12.17 H (4.8-10.8) K/ul RBC 4.87 (4.20-5.40) M/uL Hgb 15.0 (12.0-16.0) g/dl POC Hgb 16.3 H (12.0-16.0) g/dl Hct 47.0 (37.0-47.0) % POC Hct 48 H (37-47) % MCV 96.5 (80.0-100.0) fL MCH 30.8 (25.0-34.0) pg MCHC 31.9 L (32.0-36.0) g/dL RDW Std Deviation 58.4 H (36.4-46.3) fL RDW Coeff of Reginaldo 16.5 H (11.5-14.5) % Plt Count 310 (130-400) K/uL MPV 9.9 (9.4-12.4) fL Immature Gran % (Auto) 0.6 % Neut % (Auto) 82.8 % Lymph % (Auto) 9.4 % Reeves % (Auto) 6.9 % Eos % (Auto) 0.1 % Baso % (Auto) 0.2 % Neut # (Auto) 10.08 H (1.40-6.50) K/uL Lymph # (Auto) 1.14 L (1.20-3.40) K/uL Reeves # (Auto) 0.84 H (0.11-0.59) K/uL Eos # (Auto) 0.01 (0.00-0.50) K/uL Baso # (Auto) 0.03 (0.00-0.20) K/uL Immature Gran # (Auto) 0.07 (0.01-0.20) K/uL VBG pH (7.36-7.41) VBG pCO2 (38-50) mmHg VBG pO2 mmHg VBG HCO3 mmol/L VBG O2 Saturation % VBG Base Excess mEq/L POC Sodium 141 (135-144) mmol/L Sodium 141 (136-145) mmol/L POC Potassium 4.3 (3.3-5.0) mmol/L Potassium 4.3 (3.5-5.1) mmol/L POC Chloride 110 (101-112) mmol/L Chloride 107 (98-107) mmol/L Carbon Dioxide 20 L (21-32) mmol/L POC Total CO2 19 L (24-31) mmol/L Anion Gap 14 H (3-11) POC Anion Gap 17.0 (16-25) mmol/L POC BUN 32 H (7-18) mg/dl BUN 34 H (6-23) mg/dl Creatinine 2.04 H (0.6-1.2) mg/dl POC Creatinine 2.2 H (0.6-1.3) mg/dl Est Cr Clr Drug Dosing Not Reportable eGFR 26.91 BUN/Creatinine Ratio 16.7 (10-20) Glucose 125 H (70-99(Fasting)) mg/dl POC Glucose (other) 124 H (70-99) mg/dl Lactate 1.8 (0.4-2.0) mmol/L Calcium 9.7 (8.6-10.3) mg/dl POC Ioniz Calcium Helder 1.24 (1.12-1.32) mmol/l Magnesium 2.2 (1.7-2.4) mg/dl Total Bilirubin 1.7 H (0.2-1.0) mg/dl Direct Bilirubin 0.9 H (0-0.2) mg/dl AST 256 H (13-39) U/L ALT 1080 H (7-52) U/L Alkaline Phosphatase 681 H (34-104) U/L Troponin I High Sens 118.0 H* (0-14) pg/ml Total Protein 6.9 (6.0-8.3) gm/dl Albumin 3.6 (3.4-5.0) gm/dl Procalcitonin 0.17 (0-0.5) ng/ml Urine Color Red Urine Appearance Cloudy A (Clear) Urine pH 6.0 (4.5-7.5) Ur Specific Bruner 1.025 (1.000-1.030) Urine Protein 3+ H (Negative) Urine Glucose (UA) Trace H (Negative) Urine Ketones Trace H (Negative) Urine Blood 3+ H (Negative) Urine Nitrite Positive A (Negative) Urine Bilirubin 1+ H (Negative) Urine Urobilinogen Negative (Negative) Ur Leukocyte Esterase Trace H (Negative) Urine RBC >20 H (0-2) /hpf Urine WBC 0-5 (0-5) /hpf Ur Epithelial Cells 0-2 (0-2) /hpf Urine Bacteria None Seen (None Seen) Urine Comment Blood Type A Positive Antibody Screen POSITIVE A Crossmatch See Detail 03/11/25 03/11/25 Range/Units 19:38 20:01 WBC (4.8-10.8) K/ul RBC (4.20-5.40) M/uL Hgb 12.1 D (12.0-16.0) g/dl POC Hgb (12.0-16.0) g/dl Hct 39.0 (37.0-47.0) % POC Hct (37-47) % MCV (80.0-100.0) fL MCH (25.0-34.0) pg MCHC (32.0-36.0) g/dL RDW Std Deviation (36.4-46.3) fL RDW Coeff of Reginaldo (11.5-14.5) % Plt Count (130-400) K/uL MPV (9.4-12.4) fL Immature Gran % (Auto) % Neut % (Auto) % Lymph % (Auto) % Reeves % (Auto) % Eos % (Auto) % Baso % (Auto) % Neut # (Auto) (1.40-6.50) K/uL Lymph # (Auto) (1.20-3.40) K/uL Reeves # (Auto) (0.11-0.59) K/uL Eos # (Auto) (0.00-0.50) K/uL Baso # (Auto) (0.00-0.20) K/uL Immature Gran # (Auto) (0.01-0.20) K/uL VBG pH 7.27 L (7.36-7.41) VBG pCO2 40 (38-50) mmHg VBG pO2 23 mmHg VBG HCO3 18 mmol/L VBG O2 Saturation < 60.0 % VBG Base Excess -8.0 mEq/L POC Sodium (135-144) mmol/L Sodium (136-145) mmol/L POC Potassium (3.3-5.0) mmol/L Potassium (3.5-5.1) mmol/L POC Chloride (101-112) mmol/L Chloride (98-107) mmol/L Carbon Dioxide (21-32) mmol/L POC Total CO2 (24-31) mmol/L Anion Gap (3-11) POC Anion Gap (16-25) mmol/L POC BUN (7-18) mg/dl BUN (6-23) mg/dl Creatinine (0.6-1.2) mg/dl POC Creatinine (0.6-1.3) mg/dl Est Cr Clr Drug Dosing eGFR BUN/Creatinine Ratio (10-20) Glucose (70-99(Fasting)) mg/dl POC Glucose (other) (70-99) mg/dl Lactate (0.4-2.0) mmol/L Calcium (8.6-10.3) mg/dl POC Ioniz Calcium Helder (1.12-1.32) mmol/l Magnesium (1.7-2.4) mg/dl Total Bilirubin (0.2-1.0) mg/dl Direct Bilirubin (0-0.2) mg/dl AST (13-39) U/L ALT (7-52) U/L Alkaline Phosphatase (34-104) U/L Troponin I High Sens 105.2 H* (0-14) pg/ml Total Protein (6.0-8.3) gm/dl Albumin (3.4-5.0) gm/dl Procalcitonin (0-0.5) ng/ml Urine Color Urine Appearance (Clear) Urine pH (4.5-7.5) Ur Specific Bruner (1.000-1.030) Urine Protein (Negative) Urine Glucose (UA) (Negative) Urine Ketones (Negative) Urine Blood (Negative) Urine Nitrite (Negative) Urine Bilirubin (Negative) Urine Urobilinogen (Negative) Ur Leukocyte Esterase (Negative) Urine RBC (0-2) /hpf Urine WBC (0-5) /hpf Ur Epithelial Cells (0-2) /hpf Urine Bacteria (None Seen) Urine Comment Blood Type Antibody Screen Crossmatch Administered Medications Amitriptyline HCl (Amitriptyline Hcl 25 Mg Tab) 25 mg PO HS JAYSHREE Stop: 04/10/25 20:59 Last Admin: 03/11/25 22:35 Dose: 25 mg Documented By: CORINNA Atorvastatin Calcium (Atorvastatin 20 Mg Tab) 20 mg PO HS JAYSHREE Stop: 04/10/25 20:59 Last Admin: 03/11/25 22:35 Dose: 20 mg Documented By: CORINNA Azelastine HCl (Azelastine Hcl 0.1% Nasal 200 Sprays/27,400 Mcg Btl) 1 sprays NA BID JAYSHREE Stop: 04/10/25 20:59 Last Admin: 03/11/25 22:35 Dose: 1 sprays Documented By: CORINNA Folic Acid (Folic Acid 1 Mg Tab) 1 mg PO BID JAYSHREE Stop: 04/10/25 20:59 Last Admin: 03/11/25 22:34 Dose: 1 mg Documented By: CORINNA Hydromorphone HCl (Hydromorphone Inj 0.5 Mg/0.5 Ml Syr) 0.5 mg IV Q6H PRN PRN Reason: Pain Stop: 03/25/25 19:52 Last Admin: 03/11/25 22:40 Dose: 0.5 mg Documented By: CORINNA Meropenem 500 mg/ Syringe 10 mls @ 2 mls/min IV Q8H JAYSHREE; Protocol Stop: 03/13/25 17:29 Last Admin: 03/11/25 18:02 Dose: 2 mls/min Documented By: EUGENIO Lactated Ringer's (Lr) 1,000 mls @ 100 mls/hr IV .Q10H ONE Stop: 03/12/25 05:50 Last Admin: 03/11/25 20:03 Dose: 100 mls/hr Documented By: JUAN Montelukast Sodium (Montelukast Sodium 10 Mg Tablet) 10 mg PO HS JAYSHREE Stop: 04/10/25 20:59 Last Admin: 03/11/25 22:31 Dose: 10 mg Documented By: CORINNA Sucralfate (Sucralfate 1 Gm Tab) 1 gm PO ACHS JAYSHREE Stop: 04/10/25 20:59 Last Admin: 03/11/25 22:33 Dose: 1 gm Documented By: CORINNA Topiramate (Topiramate 100 Mg Tab) 100 mg PO BID JAYSHREE Stop: 04/10/25 20:59 Last Admin: 03/11/25 22:33 Dose: 100 mg Documented By: CORINNA Discontinued Medications Diltiazem HCl (Diltiazem Hcl 5 Mg/Ml 5 Ml Vial) 15 mg IV NOW STA Stop: 03/11/25 19:51 Last Admin: 03/11/25 20:02 Dose: 15 mg Documented By: JUAN Co-signed By: AISHA Diltiazem HCl (Diltiazem Hcl 5 Mg/Ml 5 Ml Vial) 5 mg IV NOW STA Stop: 03/11/25 21:44 Last Admin: 03/11/25 22:20 Dose: 5 mg Documented By: CORINNA Co-signed By: AISHA(2) Sodium Chloride (Nss) 1,000 mls @ 999 mls/hr IV .Q1H1M JAYSHREE Stop: 03/11/25 19:45 Last Infusion: 03/11/25 18:52 Dose: Infused Documented By: Admin: 03/11/25 17:44 Dose: 999 mls/hr Documented By: damien Infusion: 03/11/25 17:44 Dose: Infused Documented By: damien Admin: 03/11/25 17:43 Dose: 999 mls/hr Documented By: amg Sodium Chloride (Nss) 500 mls @ 999 mls/hr IV .Q31M ONE Stop: 03/11/25 19:52 Last Infusion: 03/11/25 20:11 Dose: Infused Documented By: Admin: 03/11/25 19:39 Dose: 999 mls/hr Documented By: AN Metoprolol Tartrate (Metoprolol Tartrate 1 Mg/Ml Vial) 2.5 mg IV NOW STA Stop: 03/11/25 19:23 Last Admin: 03/11/25 19:54 Dose: Not Given Documented By: AN Morphine Sulfate (Morphine Sulfate 4 Mg/Ml 1 Ml Carp\\Vial) 4 mg IV NOW STA Stop: 03/11/25 19:09 Last Admin: 03/11/25 19:40 Dose: 4 mg Documented By: AN Oxycodone HCl (Oxycodone Hcl Ir 5 Mg Tab (Immediate Release)) 5 mg PO NOW STA Stop: 03/11/25 20:52 Last Admin: 03/11/25 21:00 Dose: 5 mg Documented By: AN Imaging Data Radiologist's Impression: Chest X-Ray 03/11/25 17:15 Chest radiograph, one view History: Sepsis Comparison: None Findings: Single AP view of the chest performed. No focal consolidation or pleural effusion. No pneumothorax. Right chest wall port with catheter tip at the upper SVC. The cardiomediastinal silhouette is within normal limits. Normal pulmonary vascularity. No evidence for lymphadenopathy. No visualized bony or soft tissue abnormality. Impression: Normal chest radiograph Electronically signed by Lai Gimenez 03-11-2025 6:32 PM Abdomen/Pelvis CT 03/11/25 18:12 Exam: CT abdomen/pelvis without contrast. Reason for exam: Sepsis. Previous studies: CT abdomen/pelvis 09/14/2024. FINDINGS: Small left pleural effusion present. Lung zones are otherwise clear. Clips from cholecystectomy noted. The liver, pancreas and spleen unremarkable on unenhanced exam. The low attenuation left adrenal mass stable in size and appearance as compared to the previous study. Right adrenal unremarkable. The right ureteral stent catheter is within the right renal pelvis. However increasingly severe right hydronephrosis is noted as compared to the study of 09/14/2024. Upper pole of the left femoral catheter is also in the left renal pelvis with severe left hydronephrosis is increased since the previous study. Additionally some intraluminal gas is seen within the distended left renal pelvis suggesting emphysematous pyelonephritis. There is some extravasation of urine from the left renal pelvis due to severe distention extending along the left proximal ureter. The urinary bladder is markedly distended and contains gas again suggesting gas-forming urinary tract infection. Bowel pattern is showing stool through the colon but no evidence of bowel obstruction. There at this time. IMPRESSION: 1. Severe bilateral hydronephrosis, left side greater than right, markedly increased as compared to the previous study of 09/14/2024. Pleural catheters are in place. 2. Extravasation of urine from the severely dilated left renal pelvis. 3. Gas within the urinary bladder as well as left renal pelvis and collecting system consistent with gas-forming infection and emphysematous pyelonephritis. 4. Emergent urologic evaluation recommended for this patient. 5. The emergency Department provider were informed verbally of these findings at 1930 hours on today's study Electronically signed by Fred Childs 03-11-2025 7:32 PM Discharge Plan Visit Data Chief Complaint: Hypotension Stated Complaint: DIZZY, PEEING BLOOD ED Provider: Charles Siddiqui Discharge Problem: Sepsis, Transaminitis, LILLIANA (acute kidney injury), Rupture of kidney, Elevated troponin, Atrial fibrillation with rapid ventricular response Patient Disposition: Admitted As Inpatient Condition: Critical Discharge Instructions Interventions: ED Discharge Assessment Last Done: 03/11/25 21:07 Discharge Problem: Sepsis Qualifiers: Sepsis type: sepsis due to unspecified organism Sepsis acute organ dysfunction status: unspecified Qualified Code(s): A41.9 - Sepsis, unspecified organism Rupture of kidney Qualifiers: Encounter type: initial encounter Laterality: unspecified laterality Qualified Code(s): S37.069A - Major laceration of unspecified kidney, initial encounter
[2025-03-11] MEDS: SODIUM CHLORIDE 0.9% 1,000 ML IV SCH (17:43)
[2025-03-11 17:44] LABS: Hematocrit (blood only) 47.0 % (37.0-47.0); Hemoglobin 15.0 g/dl (12.0-16.0); Immature Granulocytes # (auto) 0.07 K/uL (0.01-0.20); Immature Granulocytes % (auto) 0.6 %; Mean Corpuscular Hemoglobin 30.8 pg (25.0-34.0); Mean Corpuscular Volume 96.5 fL (80.0-100.0); Platelet Count 310 K/uL (130-400); RDW Standard Deviation 58.4 fL (36.4-46.3); Red Blood Count 4.87 M/uL (4.20-5.40); White Blood Count 12.17 K/ul (4.8-10.8)
[2025-03-11 18:02] LABS: Anion Gap 14 (3-11); Blood Urea Nitrogen 34 mg/dl (6-23); Calcium 9.7 mg/dl (8.6-10.3); Carbon Dioxide 20 mmol/L (21-32); Chloride 107 mmol/L (98-107); Glucose 125 mg/dl (70-99(Fasting)); Potassium 4.3 mmol/L (3.5-5.1); Sodium 141 mmol/L (136-145)
[2025-03-11] MEDS: MEROPENEM 500 MG in SYRINGE 0 ML IV SCH (18:02)
--- NOTE | 2025-03-11 18:34 | XRay Report ---
Chest radiograph, one view History: Sepsis Comparison: None Findings: Single AP view of the chest performed. No focal consolidation or pleural effusion. No pneumothorax. Right chest wall port with catheter tip at the upper SVC. The cardiomediastinal silhouette is within normal limits. Normal pulmonary vascularity. No evidence for lymphadenopathy. No visualized bony or soft tissue abnormality. Impression: Normal chest radiograph Electronically signed by Lai Gimenez 03-11-2025 6:32 PM
[2025-03-11 18:49] LABS: Alanine Aminotransferase 1080 U/L (7-52); Albumin Level 3.6 gm/dl (3.4-5.0); Alkaline Phosphatase 681 U/L (34-104); Bilirubin,Total 1.7 mg/dl (0.2-1.0); Magnesium 2.2 mg/dl (1.7-2.4); Total Protein 6.9 gm/dl (6.0-8.3)
--- NOTE | 2025-03-11 19:33 | CT Scan Report ---
Exam: CT abdomen/pelvis without contrast. Reason for exam: Sepsis. Previous studies: CT abdomen/pelvis 09/14/2024. FINDINGS: Small left pleural effusion present. Lung zones are otherwise clear. Clips from cholecystectomy noted. The liver, pancreas and spleen unremarkable on unenhanced exam. The low attenuation left adrenal mass stable in size and appearance as compared to the previous study. Right adrenal unremarkable. The right ureteral stent catheter is within the right renal pelvis. However increasingly severe right hydronephrosis is noted as compared to the study of 09/14/2024. Upper pole of the left femoral catheter is also in the left renal pelvis with severe left hydronephrosis is increased since the previous study. Additionally some intraluminal gas is seen within the distended left renal pelvis suggesting emphysematous pyelonephritis. There is some extravasation of urine from the left renal pelvis due to severe distention extending along the left proximal ureter. The urinary bladder is markedly distended and contains gas again suggesting gas-forming urinary tract infection. Bowel pattern is showing stool through the colon but no evidence of bowel obstruction. There at this time. IMPRESSION: 1. Severe bilateral hydronephrosis, left side greater than right, markedly increased as compared to the previous study of 09/14/2024. Pleural catheters are in place. 2. Extravasation of urine from the severely dilated left renal pelvis. 3. Gas within the urinary bladder as well as left renal pelvis and collecting system consistent with gas-forming infection and emphysematous pyelonephritis. 4. Emergent urologic evaluation recommended for this patient. 5. The emergency Department provider were informed verbally of these findings at 1930 hours on today's study Electronically signed by Fred Childs 03-11-2025 7:32 PM
[2025-03-11] MEDS: SODIUM CHLORIDE 0.9% 500 ML IV ONE (19:39)
[2025-03-11] MEDS: MoRPHine SULFATE 4 MG/ML 1 ML CARP\\VIAL IV STA (19:40)
[2025-03-11 19:52] LABS: Appearance Urine Cloudy (Clear); Glucose Urine UA Trace (Negative)
[2025-03-11] MEDS ORDERED: PROMETHAZINE 6.25 MG/50.25 ML BAG IV PRN (19:53)
[2025-03-11] MEDS: METOPROLOL TARTRATE 1 MG/ML VIAL IV STA (19:54)
[2025-03-11 19:59] LABS: Epithelial Cell Urine 0-2 /hpf (0-2)
[2025-03-11] MEDS: LACTATED RINGER'S 1,000 ML IV ONE (20:03)
--- NOTE | 2025-03-11 20:11 | History & Physical Report ---
Date of Service March 11, 2025 Assessment & Plan (1) Atrial fibrillation with rapid ventricular response: Plan: Assessment and plan below following discussion of case with ED provider and reviewing patient history/pertinent normal/abnormal diagnostic test results. Recurrent atrial fibrillation (Not on anticoagulation due to fall risk/anemia as per records) Secondary to severe sepsis (SIRS plus ARF) secondary to complicated UTI/emphysematous pyelonephritis on imaging History of hydronephrosis status post recent instrumentation Troponin elevation secondary to illness Metabolic acidosis similar to kidney dysfunction/sepsis Transaminitis possibly from shock liver history idiopathic cardiac arrest/VT Orthostatic hypotension on midodrine, BP improved after initial fluid resuscitation at the ER hyperlipidemia on statin Rx asthma/COPD, CYNTHIA/narcolepsy as per records, lung status at baseline hypothyroidism, euthyroid as of TSH from last year Hyperglycemia rule out DM, hemoglobin A1c of 6.6 from 2022, hemoglobin of 4.7 from 2023 PCU IV Cardizem 1 dose now Continue verapamil and titrate as needed Follow troponin TTE re: recurrent A-fib Cardiology consult if rate control cumbersome particularly with history orthostatic hypotension on midodrine CS, Meropenem Insert Jose catheter for bilateral hydronephrosis Monitor creatinine response to IVF Urology consult re: obstructive uropathy (ED provider already in touch with Dr. Stern.) Follow H&H, transfuse PRBC to maintain hemoglobin of at least 7 (Patient specified that she usually receives Tylenol and Benadryl prior to blood product transfusion.) Follow LFTs, hold statin for now, liver ultrasound/GI consult if with progression Update hemoglobin A1c, TSH DVT prophylaxis SCDs Re: Hematuria Full code Text document was generated using [employer] voice recognition software. It may contain grammatical or spelling errors. Kindly contact undersigned for clarification of any documentation item in question. History of Present Illness Chief Complaint: Hematuria, abdominal pain Primary Care Provider: Vicki Watson MD History obtained from patient and records. Medical history is significant for history idiopathic cardiac arrest/VT, PAT, hypertension, PAF (not on anticoagulation due to fall risk and anemia as per records), orthostatic hypotension on midodrine, hyperlipidemia/statin intolerance, asthma/COPD, CYNTHIA/narcolepsy on CPAP, urolithiasis, hydronephrosis, celiac disease, GERD, irritable bowel syndrome, pancreas divisum, left adrenal tumor as per records, hypothyroidism, RLS, endometriosis/PCOS, hx MRSA. Last confinement September 2024 for Norovirus illness. Patient underwent outpatient urologic procedure for bilateral hydronephrosis/ureteral stones by [facility] [place] [facility] urologist 3 days ago. Cystoscopy with bilateral retrograde pyelogram and stent placement, right u reteral dilatation, left ureteroscopy, laser endopyelotomy done as per op report. Postprocedure, patient noted progressive hypogastric pain going to her groin and upper belly associated with persistent hematuria. Nausea without emesis symptoms. Poor appetite. No fever, no chills, no chest pain, no SOB. Patient noted to be in rapid A-fib upon arrival at the ER. Heart rate 150s, initial SBP 60s. Fluid boluses and meropenem administered at the ER. Heart rate currently 130s, SBP currently 130s. MEDICAL HISTORY: As above. SURGICAL HISTORY: TAHBSO, cholecystectomy, appendectomy, ankle surgery, knee surgery, nasal reconstruction, sinus surgery, finger tendon sheath surgery, urologic procedure, laminectomy/spine surgery FAMILY HISTORY: Family history of unknown. Patient is adopted. PERSONAL/SOCIAL HISTORY: Nonsmoker. No chronic intake of inatke of ETOH. 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 Allergies Allergy/AdvReac Type Severity Reaction Status Date / Time bee venom protein (honey bee) Allergy Severe ANAPHYLAXIS Verified 03/08/25 09:24 coconut Allergy Severe RASH; SOB Verified 03/08/25 09:24 gluten Allergy Severe CELIAC'S Verified 03/08/25 09:24 latex Allergy Severe Anaphylaxis Verified 03/08/25 09:24 Penicillins Allergy Severe Anaphylaxis Verified 03/08/25 09:24 Sulfa (Sulfonamide Allergy Severe Anaphylaxis Verified 03/08/25 09:24 Antibiotics) ROBER Inhibitors Allergy Intermediate RASH/TACHYC Verified 03/08/25 09:24 ARDIA cefaclor Allergy Intermediate CECLOR--RASH/UPSET Verified 03/08/25 09:24 STOMACH egg Allergy Intermediate RASH & Verified 03/08/25 09:24 Bloating Influenza Virus Vaccines Allergy Intermediate rash and Verified 03/08/25 09:24 bloating tetracycline Allergy Intermediate NAUSEA/VOMI Verified 03/08/25 09:24 TING/RASH Quinolones Allergy Unknown ALLERGY TO Verified 03/08/25 09:24 AVELOX ,CAN TAKE CIPRO OR LEVAQUIN W/O RXN Beta-Blockers AdvReac Intermediate intolerance Verified 03/08/25 09:24 (Beta-Adrenergic Bloc as per records lactose AdvReac Intermediate BLOATING; Verified 03/08/25 09:24 DIARRHEA; VOMITING Home Medications Medication Instructions Recorded Confirmed Type aspirin 81 mg tablet,delayed 81 mg PO QAM 09/14/24 03/11/25 History release atorvastatin 20 mg tablet 20 mg PO HS 09/14/24 03/11/25 History cimetidine 400 mg tablet 400 mg PO BID 09/14/24 03/11/25 History fexofenadine 180 mg tablet 180 mg PO QAM 09/14/24 03/11/25 History fluticasone 250 mcg-salmeterol 50 1 inh inhalation BID 09/14/24 03/11/25 History mcg/dose blistr powdr for inhalation (Advair Diskus) folic acid 1 mg tablet 1 mg PO BID 09/14/24 03/11/25 History hyoscyamine sulfate 0.375 mg 0.375 mg PO Q6H PRN Abdominal Pain 09/14/24 03/11/25 History tablet,extended release,12 hr ipratropium 20 mcg-albuterol 100 1 puff inhalation QID PRN 09/14/24 03/11/25 History mcg/actuation mist for inhalation Shortness Of Breath Or Wheezing (Combivent Respimat) levothyroxine 100 mcg capsule 100 mcg PO QAM 09/14/24 03/11/25 History midodrine 2.5 mg tablet 2.5 mg PO TID 09/14/24 03/11/25 History montelukast 10 mg tablet 10 mg PO HS 09/14/24 03/11/25 History multivitamin 1 tab PO QAM 09/14/24 03/11/25 History rabeprazole 20 mg tablet,delayed 40 mg PO BID 09/14/24 03/11/25 History release (AcipHex) sucralfate 1 gram tablet 1 g PO ACHS 09/14/24 03/11/25 History topiramate 100 mg tablet 100 mg PO BID 09/14/24 03/11/25 History CPAP Machine 09/15/24 03/11/25 History amitriptyline 75 mg tablet 75 mg PO HS 09/15/24 03/11/25 History azelastine 137 mcg (0.1 %) nasal 1 spray intranasal BID 09/15/24 03/11/25 History spray levalbuterol HCl 1.25 mg/3 mL 1.25 mg inhalation Q6H 09/15/24 03/11/25 History solution for nebulization mometasone 50 mcg/actuation nasal 2 spray intranasal BID 09/15/24 03/11/25 History spray ondansetron 4 mg disintegrating 4 mg PO Q8H PRN Nausea And Vomiting 09/15/24 03/11/25 History tablet polyethylene glycol 3350 17 gram 17 g PO QAM 09/15/24 03/11/25 History oral powder packet (Miralax) levofloxacin 500 mg tablet 500 mg PO DAILY 7 days #7 tabs 03/08/25 03/11/25 Rx oxybutynin chloride 5 mg tablet 5 mg PO Q8H PRN bladder spasms #9 03/08/25 03/11/25 Rx tabs phenazopyridine 200 mg tablet 200 mg PO Q8H PRN pain #10 tabs 03/08/25 03/11/25 Rx (Pyridium) epinephrine 0.3 mg/0.3 mL 0.3 mg subcut UD PRN Anaphylaxis 03/11/25 03/11/25 History injection, auto-injector verapamil 180 mg 24 hr 180 mg PO DAILY 03/11/25 03/11/25 History capsule,extended release Past Med/Surg History Problem List Elevated troponin (Acute) Rupture of kidney (Acute) LILLIANA (acute kidney injury) (Acute) Transaminitis (Acute) Sepsis (Acute) Atrial fibrillation with rapid ventricular response (Acute) Incontinence (Chronic) Adrenal nodule (Chronic) Renal cyst (Acute) Bilateral hydronephrosis (Chronic) Abdominal pain PSVT (paroxysmal supraventricular tachycardia) Elevated brain natriuretic peptide (BNP) level (Acute) Atrial tachycardia, paroxysmal Syncope (Acute) 01/2024 per records Dyspnea (Acute) Shortness of breath (Acute) PAF (paroxysmal atrial fibrillation) Sinus tachycardia (Acute) Palpitation (Acute) Hypokalemia Transaminitis Elevated LFTs (Acute) Encounter for pre-operative examination CYNTHIA (obstructive sleep apnea) (Chronic) Asthma, severe persistent (Chronic) Gastroparesis (Chronic) Celiac disease (Chronic) GERD (gastroesophageal reflux disease) (Chronic) IBS (irritable bowel syndrome) (Chronic) Hypothyroidism (Chronic) no current medication -- TSH normal without meds. CHARLES (iron deficiency anemia) (Chronic) ferrous sulfate QID. Dyslipidemia (Chronic) MRSA (methicillin resistant Staphylococcus aureus) (Chronic) 1999 dx nose septum wound 2020 dx in lungs Medical History NSVT (nonsustained ventricular tachycardia) - hx of nonsustained VT (isolated run on Zio without associated symptoms per cardio); intolerance to beta blockers Renal cyst per medical record, pt unsure Depression Port-A-Cath in place Bilateral hydronephrosis Chronic kidney disease stage 3 or 4 - follows with [facility] Nephrology Sari fish Hx of gastric ulcer Chronic gastritis GERD (gastroesophageal reflux disease) Migraines Chronic nausea Seasonal allergies Hypothyroidism Paroxysmal A-fib - follows with Dr. Aguirre, takes asa daily (not anticoagulated due to anemia and fall risk per cardio records ) - patient referred at last cardio appt 10/2024 for evaluation for left appendage occluder device Celiac disease Hx of renal calculi no surgical intervention needed Poor intravenous access PSVT (paroxysmal supraventricular tachycardia) - no current issues per patient Hx MRSA infection 1999 dx nose septum wound 2019 dx in lungs Gastroparesis IBS (irritable bowel syndrome) Dyslipidemia CHARLES (iron deficiency anemia) History of COVID-19 has had ~5 times - last had ~early 2023, no hospitalization. Orthostatic hypotension Follows with [facility] cardiology On midodrine Chronic anemia frequent iron and blood transfusions. Hypertension hx --> pt reports she is being treated for hypotension Adrenal cyst monitoring unchanged per 2024 imaging; benign per PCP Chronic back pain Degenerative disc disease Osteoarthritis Anxiety Mitral valve prolapse follows with Dr Aguirre Narcolepsy Chronic obstructive pulmonary disease uncontrolled, uses inhalers daily Sleep apnea CPAP + 2lpm of oxygen Surgical History H/O insertion of central venous access port power port placed due to poor IV access + frequent blood draws/iron/blood transfusions S/P spinal fusion C1 through L3 or L4 (~2021 at [facility]) History of cardioversion ~2019 History of cardiac radiofrequency ablation ~2014 [facility] History of bronchoscopy in the S/P trigger finger release right hand History of ankle surgery bilateral ankle repair with hardware H/O hand surgery with hardware (left) S/P GLENNY-BSO S/P surgery on nasal septum "collapsed septum" s/p post op infection that "ate away the septum" S/P nasal surgery multiple Hx of cholecystectomy History of arthroscopic knee surgery left Hx of cardiac cath "2009 - normal coronaries" (pt denies) History of esophagogastroduodenoscopy (EGD) History of colonoscopy History of dilatation and curettage Family History Other No family history of adverse response to anesthesia Social History Smoking Status: Never smoker Second Hand Exposure: No; Do You Dip or Chew Tobacco: No; Tobacco Cessation Education Requested by Patient: No Hx Alcohol Use: No Hx Substance Use: No Preferred Language: Slovenian Communication Ability: Effective Dermatology Procedural Physician Required: No Beliefs That Will Affect Care: None marital status: Current Living Situation: Spouse and Other Current Living Situation Comment: 4yr old twins at home Other Information That Helps Us Care for You: No Feels Safe at Home: Yes Safety Concerns: Feels Safe At This Time Assistive Devices: CPAP Assistive Devices Comment: upper partial denture Review of Systems Review of Systems: As per HPI, all other systems reviewed and negative Physical Exam Physical Exam: GENERAL: Slightly uncomfortable, ill-appearing, no respiratory distress SKIN: Normal color, warm HEENT: Pale palpebral conjunctivae, no ptosis, dry buccal mucosa NECK : Supple, no tenderness CHEST : Decreased breath sounds, no tenderness HEART : Irregular, no obvious murmurs ABDOMEN: Some distention, hypogastric tenderness EXTREMITIES : No LE swelling, no LE tenderness, no other conspicuous deformities noted NEUROLOGIC : Coherent, no facial asymmetry, no other gross focality Results & Data Results & Data Vital Signs (Past 12 Hours) Vital Signs Temp Pulse Pulse Resp BP BP Pulse Ox 03/11/25 19:30 133 H 22 143/102 H 97 03/11/25 19:00 139 H 22 143/96 H 100 03/11/25 18:30 36.5 C 116 H 20 149/97 H 100 03/11/25 18:00 109 H 18 112/74 93 03/11/25 17:53 124 H 18 97 03/11/25 17:53 124 H 18 114/84 97 03/11/25 17:24 151 H 03/11/25 17:06 36.2 C L 75 18 68/49 L 98 O2 Del Method O2 Flow Rate 03/11/25 19:30 Nasal Cannula 2 03/11/25 19:00 Nasal Cannula 2 03/11/25 18:30 Nasal Cannula 2 03/11/25 18:00 Room Air 03/11/25 17:53 Room Air 03/11/25 17:53 03/11/25 17:24 03/11/25 17:06 Room Air Laboratory Results Laboratory Results WBC 12.17 K/ul (4.8-10.8) H 03/11/25 17:26 RBC 4.87 M/uL (4.20-5.40) 03/11/25 17:26 Hgb 15.0 g/dl (12.0-16.0) 03/11/25 17:26 POC Hgb 16.3 g/dl (12.0-16.0) H 03/11/25 17:29 Hct 47.0 % (37.0-47.0) 03/11/25 17:26 POC Hct 48 % (37-47) H 03/11/25 17:29 MCV 96.5 fL (80.0-100.0) 03/11/25 17:26 MCH 30.8 pg (25.0-34.0) 03/11/25 17:26 MCHC 31.9 g/dL (32.0-36.0) L 03/11/25 17:26 RDW Std Deviation 58.4 fL (36.4-46.3) H 03/11/25 17:26 RDW Coeff of Reginaldo 16.5 % (11.5-14.5) H 03/11/25 17:26 Plt Count 310 K/uL (130-400) 03/11/25 17:26 MPV 9.9 fL (9.4-12.4) 03/11/25 17:26 Immature Gran % (Auto) 0.6 % 03/11/25 17:26 Neut % (Auto) 82.8 % 03/11/25 17:26 Lymph % (Auto) 9.4 % 03/11/25 17:26 [place] % (Auto) 6.9 % 03/11/25 17:26 Eos % (Auto) 0.1 % 03/11/25 17:26 Baso % (Auto) 0.2 % 03/11/25 17:26 Neut # (Auto) 10.08 K/uL (1.40-6.50) H 03/11/25 17:26 Lymph # (Auto) 1.14 K/uL (1.20-3.40) L 03/11/25 17:26 [place] # (Auto) 0.84 K/uL (0.11-0.59) H 03/11/25 17:26 Eos # (Auto) 0.01 K/uL (0.00-0.50) 03/11/25 17:26 Baso # (Auto) 0.03 K/uL (0.00-0.20) 03/11/25 17:26 Immature Gran # (Auto) 0.07 K/uL (0.01-0.20) 03/11/25 17:26 POC Sodium 141 mmol/L (135-144) 03/11/25 17:29 Sodium 141 mmol/L (136-145) 03/11/25 17:26 POC Potassium 4.3 mmol/L (3.3-5.0) 03/11/25 17:29 Potassium 4.3 mmol/L (3.5-5.1) 03/11/25 17:26 POC Chloride 110 mmol/L (101-112) 03/11/25 17:29 Chloride 107 mmol/L (98-107) 03/11/25 17: Carbon Dioxide 20 mmol/L (21-32) L 03/11/25 17:26 POC Total CO2 19 mmol/L (24-31) L 03/11/25 17:29 Anion Gap 14 (3-11) H 03/11/25 17:26 POC Anion Gap 17.0 mmol/L (16-25) 03/11/25 17:29 POC BUN 32 mg/dl (7-18) H 03/11/25 17:29 BUN 34 mg/dl (6-23) H 03/11/25 17:26 Creatinine 2.04 mg/dl (0.6-1.2) H 03/11/25 17:26 POC Creatinine 2.2 mg/dl (0.6-1.3) H 03/11/25 17:29 Est Cr Clr Drug Dosing Not Reportable 03/11/25 17:26 eGFR 26.91 03/11/25 17:26 BUN/Creatinine Ratio 16.7 (10-20) 03/11/25 17:26 Glucose 125 mg/dl (70-99(Fasting)) H 03/11/25 17:26 POC Glucose (other) 124 mg/dl (70-99) H 03/11/25 17:29 Lactate 1.8 mmol/L (0.4-2.0) 03/11/25 17:26 Calcium 9.7 mg/dl (8.6-10.3) 03/11/25 17:26 POC Ioniz Calcium Helder 1.24 mmol/l (1.12-1.32) 03/11/25 17:29 Magnesium 2.2 mg/dl (1.7-2.4) 03/11/25 17:26 Total Bilirubin 1.7 mg/dl (0.2-1.0) H 03/11/25 17:26 Direct Bilirubin 0.9 mg/dl (0-0.2) H 03/11/25 17:26 AST 256 U/L (13-39) H 03/11/25 17:26 ALT 1080 U/L (7-52) H 03/11/25 17:26 Alkaline Phosphatase 681 U/L (34-104) H 03/11/25 17:26 Troponin I High Sens 118.0 pg/ml (0-14) H* 03/11/25 17:26 Total Protein 6.9 gm/dl (6.0-8.3) 03/11/25 17:26 Albumin 3.6 gm/dl (3.4-5.0) 03/11/25 17:26 Procalcitonin 0.17 ng/ml (0-0.5) 03/11/25 17:26 Urine Color Red 03/11/25 19: Urine Appearance Cloudy (Clear) A 03/11/25 19: Urine pH 6.0 (4.5-7.5) 03/11/25 19:29 Ur Specific Carroll 1.025 (1.000-1.030) 03/11/25 19:29 Urine Protein 3+ (Negative) H 03/11/25 19:29 Urine Glucose (UA) Trace (Negative) H 03/11/25 19:29 Urine Ketones Trace (Negative) H 03/11/25 19: Urine Blood 3+ (Negative) H 03/11/25 19:29 Urine Nitrite Positive (Negative) A 03/11/25 19:29 Urine Bilirubin 1+ (Negative) H 03/11/25 19: Urine Urobilinogen Negative (Negative) 03/11/25 19:29 Ur Leukocyte Esterase Trace (Negative) H 03/11/25 19:29 Urine RBC >20 /hpf (0-2) H 03/11/25 19:29 Urine WBC 0-5 /hpf (0-5) 03/11/25 19:29 Ur Epithelial Cells 0-2 /hpf (0-2) 03/11/25 19: Urine Bacteria None Seen (None Seen) 03/11/25 19: Urine Comment 03/11/25 19: Crossmatch See Detail 03/11/25 17:26 Impressions Chest X-Ray 03/11/25 17:15 Chest radiograph, one view History: Sepsis Comparison: None Findings: Single AP view of the chest performed. No focal consolidation or pleural effusion. No pneumothorax. Right chest wall port with catheter tip at the upper SVC. The cardiomediastinal silhouette is within normal limits. Normal pulmonary vascularity. No evidence for lymphadenopathy. No visualized bony or soft tissue abnormality. Impression: Normal chest radiograph Electronically signed by Lai Gimenez 03-11-2025 6:32 PM Abdomen/Pelvis CT 03/11/25 18:12 Exam: CT abdomen/pelvis without contrast. Reason for exam: Sepsis. Previous studies: CT abdomen/pelvis 09/14/2024. FINDINGS: Small left pleural effusion present. Lung zones are otherwise clear. Clips from cholecystectomy noted. The liver, pancreas and spleen unremarkable on unenhanced exam. The low attenuation left adrenal mass stable in size and appearance as compared to the previous study. Right adrenal unremarkable. The right ureteral stent catheter is within the right renal pelvis. However increasingly severe right hydronephrosis is noted as compared to the study of 09/14/2024. Upper pole of the left femoral catheter is also in the left renal pelvis with severe left hydronephrosis is increased since the previous study. Additionally some intraluminal gas is seen within the distended left renal pelvis suggesting emphysematous pyelonephritis. There is some extravasation of urine from the left renal pelvis due to severe distention extending along the left proximal ureter. The urinary bladder is markedly distended and contains gas again suggesting gas-forming urinary tract infection. Bowel pattern is showing stool through the colon but no evidence of bowel obstruction. There at this time. IMPRESSION: 1. Severe bilateral hydronephrosis, left side greater than right, markedly increased as compared to the previous study of 09/14/2024. Pleural catheters are in place. 2. Extravasation of urine from the severely dilated left renal pelvis. 3. Gas within the urinary bladder as well as left renal pelvis and collecting system consistent with gas-forming infection and emphysematous pyelonephritis. 4. Emergent urologic evaluation recommended for this patient. 5. The emergency Department provider were informed verbally of these findings at 1930 hours on today's study Electronically signed by Fred Childs 03-11-2025 7:32 PM Diagnostic Findings EKG as per my interpretation :Rate 100, A-fib, LAD, LFD, nonspecific T wave abnormalities, low voltage
[2025-03-11 20:18] LABS: Base Excess VBG -8.0 mEq/L; HCO3 VBG 18 mmol/L; Oxygen Saturation VBG < 60.0 %; PCO2 VBG 40 mmHg (38-50); PO2 VBG 23 mmHg; pH VBG 7.27 (7.36-7.41)
[2025-03-11] MEDS ORDERED: IPRATROPIUM BROMIDE/ALBUTEROL respimat INH INH PRN (20:53)
[2025-03-11 21:33] LABS: Hematocrit (blood only) 39.0 % (37.0-47.0); Hemoglobin 12.1 g/dl (12.0-16.0)
[2025-03-11] MEDS ORDERED: ALBUTEROL HFA 8 GM INHALER INH PRN (21:41)
[2025-03-11] MEDS ORDERED: IPRATROPIUM BROMIDE HFA INHALER INH PRN (21:41)
[2025-03-11] MEDS ORDERED: IPRATROPIUM BROMIDE NEB SOLN 0.02% 0.5MG/2.5ML VIAL INH PRN (22:01)
[2025-03-11] MEDS ORDERED: LEVALBUTEROL 1.25 MG/3 ML NEB NEB PRN (22:01)
[2025-03-11] MEDS: MONTELUKAST SODIUM 10 MG TABLET PO SCH (22:31)
[2025-03-11] MEDS: TOPIRAMATE 100 MG TAB PO SCH (22:33)
[2025-03-11] MEDS: SUCRALFATE 1 GM TAB PO SCH (22:33)
[2025-03-11] MEDS: FOLIC ACID 1 MG TAB PO SCH (22:34)
[2025-03-11] MEDS: AZELASTINE HCL 0.1% NASAL 200 SPRAYS/27,400 MCG BTL SCH (22:35)
[2025-03-11] MEDS: ATORVASTATIN 20 MG TAB PO SCH (22:35)
[2025-03-11] MEDS: AMITRIPTYLINE HCL 25 MG TAB PO SCH (22:35)
[2025-03-11] MEDS: HYDROmorphone INJ 0.5 MG/0.5 ML SYR IV PRN (22:40)
[2025-03-12] MEDS: DIGOXIN 250 MCG in SYRINGE 9 ML IV STA (00:12)
[2025-03-12] MEDS: MIDODRINE HCL 2.5 MG TAB PO STA ×2 (00:12→20:08)
[2025-03-12] MEDS: LACTATED RINGER'S 1,000 ML IV ONE ×2 (00:13→12:40)
[2025-03-12] MEDS: LACTATED RINGER'S 1,000 ML IV SCH (02:42)
[2025-03-12] MEDS: VERAPAMIL HCL 2.5 MG/ML 2 ML VIAL IV ONE (02:59)
[2025-03-12] MEDS: ACETAMINOPHEN 1,000 MG/100 ML VIAL IV STA (02:59)
[2025-03-12] MEDS: HYDROmorphone INJ 0.5 MG/0.5 ML SYR IV STA (03:54)
[2025-03-12] MEDS ORDERED: LACTATED RINGER'S 1,000 ML IV ONE (06:00)
[2025-03-12] MEDS: LEVOTHYROXINE SODIUM 100 MCG TABLET PO SCH (06:07)
[2025-03-12 06:23] LABS: Base Excess VBG -5.8 mEq/L; HCO3 VBG 20 mmol/L; Oxygen Saturation VBG 73.6 %; PCO2 VBG 37 mmHg (38-50); PO2 VBG 41 mmHg; pH VBG 7.33 (7.36-7.41)
[2025-03-12 06:28] LABS: Hematocrit (blood only) 35.0 % (37.0-47.0); Hemoglobin 11.6 g/dl (12.0-16.0); Immature Granulocytes # (auto) 0.03 K/uL (0.01-0.20); Immature Granulocytes % (auto) 0.3 %; Mean Corpuscular Hemoglobin 32.1 pg (25.0-34.0); Mean Corpuscular Volume 97.0 fL (80.0-100.0); Platelet Count 227 K/uL (130-400); RDW Standard Deviation 58.2 fL (36.4-46.3); Red Blood Count 3.61 M/uL (4.20-5.40); White Blood Count 9.40 K/ul (4.8-10.8)
[2025-03-12 06:56] LABS: Partial Thromboplastin Time 27 Seconds (21-31)
[2025-03-12 07:16] LABS: Alanine Aminotransferase 701.0 U/L (7-52); Albumin Globulin Ratio 1.2 (0.9-2); Albumin Level 2.6 gm/dl (3.4-5.0); Alkaline Phosphatase 519.0 U/L (34-104); Anion Gap 6.0 (3-11); Bilirubin,Total 2.8 mg/dl (0.2-1.0); Blood Urea Nitrogen 29.0 mg/dl (6-23); Calcium 8.0 mg/dl (8.6-10.3); Carbon Dioxide 20.0 mmol/L (21-32); Chloride 112.0 mmol/L (98-107); Creatine Kinase 22.0 U/L (26-192); Creatinine Clr Calc Pharmacy 27.3 ml/min; Globulin 2.1 gm/dl (2.5-4.0); Glucose 139.0 mg/dl (70-99(Fasting)); Potassium 4.0 mmol/L (3.5-5.1); Sodium 138.0 mmol/L (136-145); Thyroid Stimulating Hormone 1.374 uIu/ml (0.300-4.500); Total Protein 4.7 gm/dl (6.0-8.3)
[2025-03-12] MEDS: FEXOFENADINE HCL 180 MG TAB PO SCH (07:40)
[2025-03-12] MEDS: FAMOTIDINE 20 MG TAB PO SCH (07:40)
[2025-03-12] MEDS: MIDODRINE HCL 2.5 MG TAB PO SCH (07:41)
[2025-03-12] MEDS: MULTIVITAMIN TAB PO SCH (07:41)
[2025-03-12] MEDS: FLUTICASONE PROPIONATE NA SPR 16 GM BTL NAE SCH (07:42)
[2025-03-12] MEDS: VERAPAMIL HCL 180 MG TABCR PO SCH (07:43)
[2025-03-12] MEDS: FLUTICASONE/VILANTEROL 200/25MCG 14 PUFFS/INHALER INH SCH (07:44)
[2025-03-12] MEDS ORDERED: VERAPAMIL 100 MG PO SCH (09:00)
[2025-03-12] MEDS: POLYETHYLENE (MIRALAX) 17 GM PACK PO SCH (09:21)
[2025-03-12 11:21] LABS: Hemoglobin A1C 5.9 % (4.5-5.6)
--- NOTE | 2025-03-12 11:54 | Urology Consultation ---
<Statement entered by Yair Stern MD - 03/13/25 11:32> case reviewed, Agree with assessment and plan as written, notable tobias must stay in place to aid healing left ureteral perforation for extended period. Should be maintained pending outpatient assessment. Date of Consultation March 12, 2025 Assessment & Plan (1) Bilateral hydronephrosis: (2) LILLIANA (acute kidney injury): 64-year-old female recently status post cystoscopy with bilateral retrograde pyelogram and stent placement, right ureteral dilation, left ureteroscopy and laser endopyelotomy on 03/08/[address] Williamson. She presented to the emergency department on 03/11/2025 for evaluation of fever and abdominal pain and was admitted for sepsis, LILLIANA, transaminitis, and atrial fibrillation with RVR. Urology is consulted for obstructive uropathy Patient is afebrile, hemodynamically stable Labs reviewedcreatinine downtrending (1.84 today), WBC 9.4, hemoglobin 11.6 UA was positive for nitrates, but no pyuria or bacteria Urine culture prelim no growth Blood cultures are pending CTAP reviewed bilateral hydronephrosis, bilateral stents appropriately positioned, left perinephric fluid collection and gas likely from recent procedure No acute intervention at this time Maintain Tobias catheter at this time Plan to maintain ureteral stents for 3 to 4 weeks as planned For now, continue with broad-spectrum antibiotics and narrow per sensitivity data when available Continue supportive care and medical management per hospital medicine service Consider addition of tamsulosin and anticholinergic or beta 3 agonist for stent management will follow, please contact our service with any additional questions or concerns History of Present Illness Reason for Consultation: obstructive uropathy Attending Physician: Timbo Roque DO History of Present Illness 64-year-old female who follows with urology for bilateral hydronephrosis and obstruction. She is status post cystoscopy with bilateral retrograde pyelogram and stent placement, right ureteral dilation, left ureteroscopy and laser endopyelotomy on 03/08/[address] Williamson. She presented to the emergency department on 03/11/2025 for evaluation of fever and abdominal pain. On arrival, she was afebrile, hypotensive with A-fib with RVR. Lab work showed WBC 12.17, hemoglobin 15.0, creatinine 2.04. AST, ALT and alk phos elevated. Urinalysis showed 3+ protein, 3+ blood, positive nitrates, trace LE, >20 RBC, 0- 5 WBC, 0-2 epithelial cells and negative for bacteria. Workup included CT abdomen pelvis. CT imaging independently reviewed and shows right hydronephrosis with right ureteral stent in good position. Left hydronephrosis with left ureteral stent in position, perinephric fluid collection and gas likely from recent endopyelotomy. Tobias catheter was placed. She was admitted to the hospital medicine service for sepsis, transaminitis, LILLIANA and atrial fibrillation with RVR. Labs today reviewedcreatinine 1.84, WBC 9.4, hemoglobin 11.6 Urine culture prelim no growth Blood cultures are pending Patient seen and examined at bedside this morning. She reports bilateral flank discomfort. Tobias catheter in place with hematuria. Denies fever or chills. Reports nausea, no vomiting. Allergies Allergy/AdvReac Type Severity Reaction Status Date / Time bee venom protein (honey bee) Allergy Severe ANAPHYLAXIS Verified 03/08/25 09:24 coconut Allergy Severe RASH; SOB Verified 03/08/25 09:24 gluten Allergy Severe CELIAC'S Verified 03/08/25 09:24 latex Allergy Severe Anaphylaxis Verified 03/08/25 09:24 Penicillins Allergy Severe Anaphylaxis Verified 03/08/25 09:24 Sulfa (Sulfonamide Allergy Severe Anaphylaxis Verified 03/08/25 09:24 Antibiotics) ROBER Inhibitors Allergy Intermediate RASH/TACHYC Verified 03/08/25 09:24 ARDIA cefaclor Allergy Intermediate CECLOR--RASH/UPSET Verified 03/08/25 09:24 STOMACH egg Allergy Intermediate RASH & Verified 03/08/25 09:24 Bloating Influenza Virus Vaccines Allergy Intermediate rash and Verified 03/08/25 09:24 bloating tetracycline Allergy Intermediate NAUSEA/VOMI Verified 03/08/25 09:24 TING/RASH Quinolones Allergy Unknown ALLERGY TO Verified 03/08/25 09:24 AVELOX ,CAN TAKE CIPRO OR LEVAQUIN W/O RXN Beta-Blockers AdvReac Intermediate intolerance Verified 03/08/25 09:24 (Beta-Adrenergic Bloc as per records lactose AdvReac Intermediate BLOATING; Verified 03/08/25 09:24 DIARRHEA; VOMITING Home Medications Medication Instructions Recorded Confirmed Type aspirin 81 mg tablet,delayed 81 mg PO QAM 09/14/24 03/11/25 History release atorvastatin 20 mg tablet 20 mg PO HS 09/14/24 03/11/25 History cimetidine 400 mg tablet 400 mg PO BID 09/14/24 03/11/25 History fexofenadine 180 mg tablet 180 mg PO QAM 09/14/24 03/11/25 History fluticasone 250 mcg-salmeterol 50 1 inh inhalation BID 09/14/24 03/11/25 History mcg/dose blistr powdr for inhalation (Advair Diskus) folic acid 1 mg tablet 1 mg PO BID 09/14/24 03/11/25 History hyoscyamine sulfate 0.375 mg 0.375 mg PO Q6H PRN Abdominal Pain 09/14/24 03/11/25 History tablet,extended release,12 hr ipratropium 20 mcg-albuterol 100 1 puff inhalation QID PRN 09/14/24 03/11/25 History mcg/actuation mist for inhalation Shortness Of Breath Or Wheezing (Combivent Respimat) levothyroxine 100 mcg capsule 100 mcg PO QAM 09/14/24 03/11/25 History midodrine 2.5 mg tablet 2.5 mg PO TID 09/14/24 03/11/25 History montelukast 10 mg tablet 10 mg PO HS 09/14/24 03/11/25 History multivitamin 1 tab PO QAM 09/14/24 03/11/25 History rabeprazole 20 mg tablet,delayed 40 mg PO BID 09/14/24 03/11/25 History release (AcipHex) sucralfate 1 gram tablet 1 g PO ACHS 09/14/24 03/11/25 History topiramate 100 mg tablet 100 mg PO BID 09/14/24 03/11/25 History CPAP Machine 09/15/24 03/11/25 History amitriptyline 75 mg tablet 75 mg PO HS 09/15/24 03/11/25 History azelastine 137 mcg (0.1 %) nasal 1 spray intranasal BID 09/15/24 03/11/25 History spray levalbuterol HCl 1.25 mg/3 mL 1.25 mg inhalation Q6H 09/15/24 03/11/25 History solution for nebulization mometasone 50 mcg/actuation nasal 2 spray intranasal BID 09/15/24 03/11/25 History spray ondansetron 4 mg disintegrating 4 mg PO Q8H PRN Nausea And Vomiting 09/15/24 03/11/25 History tablet polyethylene glycol 3350 17 gram 17 g PO QAM 09/15/24 03/11/25 History oral powder packet (Miralax) levofloxacin 500 mg tablet 500 mg PO DAILY 7 days #7 tabs 03/08/25 03/11/25 Rx oxybutynin chloride 5 mg tablet 5 mg PO Q8H PRN bladder spasms #9 03/08/25 03/11/25 Rx tabs phenazopyridine 200 mg tablet 200 mg PO Q8H PRN pain #10 tabs 03/08/25 03/11/25 Rx (Pyridium) epinephrine 0.3 mg/0.3 mL 0.3 mg subcut UD PRN Anaphylaxis 03/11/25 03/11/25 History injection, auto-injector verapamil 180 mg 24 hr 180 mg PO DAILY 03/11/25 03/11/25 History capsule,extended release Patient History Medical History NSVT (nonsustained ventricular tachycardia) - hx of nonsustained VT (isolated run on Zio without associated symptoms per cardio); intolerance to beta blockers Renal cyst per medical record, pt unsure Depression Port-A-Cath in place Bilateral hydronephrosis Chronic kidney disease stage 3 or 4 - follows with [facility] Nephrology Sari fish Hx of gastric ulcer Chronic gastritis GERD (gastroesophageal reflux disease) Migraines Chronic nausea Seasonal allergies Hypothyroidism Paroxysmal A-fib - follows with Dr. Aguirre, takes asa daily (not anticoagulated due to anemia and fall risk per cardio records ) - patient referred at last cardio appt 10/2024 for evaluation for left appendage occluder device Celiac disease Hx of renal calculi no surgical intervention needed Poor intravenous access PSVT (paroxysmal supraventricular tachycardia) - no current issues per patient Hx MRSA infection 1999 dx nose septum wound 2019 dx in lungs Gastroparesis IBS (irritable bowel syndrome) Dyslipidemia CHARLES (iron deficiency anemia) History of COVID-19 has had ~5 times - last had ~early 2023, no hospitalization. Orthostatic hypotension Follows with [facility] cardiology On midodrine Chronic anemia frequent iron and blood transfusions. Hypertension hx --> pt reports she is being treated for hypotension Adrenal cyst monitoring unchanged per 2024 imaging; benign per PCP Chronic back pain Degenerative disc disease Osteoarthritis Anxiety Mitral valve prolapse follows with Dr Aguirre Narcolepsy Chronic obstructive pulmonary disease uncontrolled, uses inhalers daily Sleep apnea CPAP + 2lpm of oxygen Surgical History H/O insertion of central venous access port power port placed due to poor IV access + frequent blood draws/iron/blood transfusions S/P spinal fusion C1 through L3 or L4 (~2021 at [facility]) History of cardioversion ~2019 History of cardiac radiofrequency ablation ~2014 [facility] History of bronchoscopy in the S/P trigger finger release right hand History of ankle surgery bilateral ankle repair with hardware H/O hand surgery with hardware (left) S/P GLENNY-BSO S/P surgery on nasal septum "collapsed septum" s/p post op infection that "ate away the septum" S/P nasal surgery multiple Hx of cholecystectomy History of arthroscopic knee surgery left Hx of cardiac cath "2009 - normal coronaries" (pt denies) History of esophagogastroduodenoscopy (EGD) History of colonoscopy History of dilatation and curettage Family History Other No family history of adverse response to anesthesia Social History Smoking Status: Never smoker Second Hand Exposure: No; Do You Dip or Chew Tobacco: No; Tobacco Cessation Education Requested by Patient: No Hx Alcohol Use: No Hx Substance Use: No Preferred Language: Singaporean Communication Ability: Effective Delivery Specialist Required: No Beliefs That Will Affect Care: None marital status: Current Living Situation: Spouse and Other Current Living Situation Comment: 4yr old twins at home Other Information That Helps Us Care for You: No Feels Safe at Home: Yes Safety Concerns: Feels Safe At This Time Assistive Devices: Oxygen - at Night Assistive Devices Comment: upper partial denture Review of Systems Constitutional: as per Subjective / HPI Genitourinary: as per Subjective / HPI Physical Exam Constitutional: no acute distress Respiratory: normal respiratory effort; no respiratory distress and no labored breathing Gastrointestinal (Abdomen): Inspection/Auscultation: abdomen normal to inspection Musculoskeletal: Head/Neck/Chest: normocephalic Neurologic: moves all extremities and awake Psychiatric: Orientation: alert and oriented x 3 Genitourinary: Tobias with hematuria Results & Data Vital Signs (Past 12 Hours) Vital Signs Temp Pulse Pulse Resp BP Pulse Ox O2 Del Method 03/12/25 11:08 36.7 C 97 H 18 114/72 96 Room Air 03/12/25 07:16 36.6 C 86 18 130/77 95 Room Air 03/12/25 03:49 73 109/75 03/12/25 02:39 36.5 C 109 H 24 140/82 100 CPAP 03/12/25 00:43 118/77 03/12/25 00:40 69 12 97 03/12/25 00:38 105 H 100/62 03/12/25 00:12 128 H O2 Flow Rate 03/12/25 11:08 03/12/25 07:16 03/12/25 03:49 03/12/25 02:39 03/12/25 00:43 03/12/25 00:40 2 03/12/25 00:38 03/12/25 00:12 PG Care Time/CCT Total # of Minutes Spent Total Time Spent with Patient: Total time spent is greater than 50% in coordination of care (as documented) at patient's floor/unit and/or counseling patient: Coding Level of Care Code 02955 IN/OBS CONSULT LVL 4,60M Diagnoses Bilateral hydronephrosis N13.30 LILLIANA (acute kidney injury) N17.9
--- NOTE | 2025-03-12 12:37 | Hospitalist Progress Note ---
Date of Service March 12, 2025 Assessment & Plan (1) Atrial fibrillation with rapid ventricular response: Plan: Ms. Hackett is a pleasant 64F with PMH including idiopathic cardiac arrest/VT, PAT, hypertension, PAF (not on anticoagulation due to fall risk and anemia as per records), orthostatic hypotension on midodrine, hyperlipidemia/statin intolerance, asthma/COPD, CYNTHIA/narcolepsy as per records (currently CPAP noncompliant)celiac disease, GERD, irritable bowel syndrome, pancreas divisum, left adrenal tumor as per records, hypothyroidism, RLS, endometriosis/PCOS, hydronephrosis s/p Cystoscopy with bilateral retrograde pyelogram and stent placement, right ureteral dilatation, left ureteroscopy, laser endopyelotomy on 03/08/25 presents with abd pain/fever #Severe sepsis -qSOFA: 2 -Severe sepsis with acute renal dysfunction, hepatic dysfunction -BP responded to IVF boluses, now normotensive -Source: likely urine -UA: + nitrites, LE but no WBC or bacteria -CT AP showing severe b/l hydronephrosis, extravasation of urine from renal pelvis, gas in urinary bladder and L renal pelvis suggestive of emphysematous pyelo Plan -Continue broad spectrum coverage with merrem. severe beta lactam allergy -Deescalate as able -Appreciate urology input; no surgical plans at this time -Follow urine and blood cultures #Bilateral hydronephrosis -S/p stent placement, R ureteral dilation, laser endopyelotomy on 03/08 -Urology following -Keep tobias in -Give trial of flomax. Monitor BP #Afib with RVR -Secondary to sepsis -Rates now controlled Plan -Continue home verapamil as BP allows -Not on AC due to chronic anemia per patient -No need for TTE at this time -Cardiac monitoring #LILLIANA -Suspect pre renal from hypotension/sepsis -Renal function is improving already Plan -Hold further IVF this evening -BMP in AM -Avoid nephrotoxic agents if possible #Elevated LFTs -Suspect shock liver from hypoperfusion from sepsis -LFTs already improving -Can recheck every few days #Elevated troponin -Suspect type II nstemi- demand ischemia -No ACS, no chest pain #Anemia -Chronic -At baseline -No s/s acute blood loss -Monitor. transfuse < 7.0 #Orthostatic hypotension -Continue home midodrine I spent a total of 51 minutes coordinating, documenting, and providing care for this patient excluding time spent in the performance of separately billed services. This included personally reviewing all current laboratories and imaging studies, medical reconciliation, outpatient chart review and discussion with specialists Admission and Anticipated Discharge Date Admission Date: March 11, 2025 Subjective Feeling much better this morning. she has no specific complaints at this time. Patient denies F/C, CP, palpitations, SOB, dyspnea, abd pain, N/V/D Physical Exam Physical Exam: Vitals and labs reviewed General: Well appearing, NAD HEENT: EOMI, PERRLA Neck: Supple Cardiac: regular rate irregular rhythm Lungs: CTA no rhonchi wheezing or rales Abd: S NT ND BS positive : Tobias MSK: Full ROM. No obvious deformities Ext: No Edema cyanosis Skin: Warm, Dry Neuro: AOx3 No focal deficits. Psych: Normal Mood Results & Data Results & Data Vital Signs (Past 12 Hours) Vital Signs Temp Pulse Pulse Resp BP Pulse Ox O2 Del Method 03/12/25 11:08 36.7 C 97 H 18 114/72 96 Room Air 03/12/25 07:16 36.6 C 86 18 130/77 95 Room Air 03/12/25 03:49 73 109/75 03/12/25 02:39 36.5 C 109 H 24 140/82 100 CPAP 03/12/25 00:43 118/77 03/12/25 00:40 69 12 97 03/12/25 00:38 105 H 100/62 O2 Flow Rate 03/12/25 11:08 03/12/25 07:16 03/12/25 03:49 03/12/25 02:39 03/12/25 00:43 03/12/25 00:40 2 03/12/25 00:38 Laboratory Results Abnormal lab results 03/11/25 03/11/25 03/11/25 Range/Units 17:26 17:29 19:29 WBC 12.17 H (4.8-10.8) K/ul RBC (4.20-5.40) M/uL Hgb (12.0-16.0) g/dl POC Hgb 16.3 H (12.0-16.0) g/dl Hct (37.0-47.0) % POC Hct 48 H (37-47) % MCHC 31.9 L (32.0-36.0) g/dL RDW Std Deviation 58.4 H (36.4-46.3) fL RDW Coeff of Reginaldo 16.5 H (11.5-14.5) % Neut # (Auto) 10.08 H (1.40-6.50) K/uL Lymph # (Auto) 1.14 L (1.20-3.40) K/uL Canyon # (Auto) 0.84 H (0.11-0.59) K/uL VBG pH (7.36-7.41) VBG pCO2 (38-50) mmHg Chloride (98-107) mmol/L Carbon Dioxide 20 L (21-32) mmol/L POC Total CO2 19 L (24-31) mmol/L Anion Gap 14 H (3-11) POC BUN 32 H (7-18) mg/dl BUN 34 H (6-23) mg/dl Creatinine 2.04 H (0.6-1.2) mg/dl POC Creatinine 2.2 H (0.6-1.3) mg/dl Glucose 125 H (70-99(Fasting)) mg/dl POC Glucose (other) 124 H (70-99) mg/dl Hemoglobin A1c (4.5-5.6) % Calcium (8.6-10.3) mg/dl Total Bilirubin 1.7 H (0.2-1.0) mg/dl Direct Bilirubin 0.9 H (0-0.2) mg/dl AST 256 H (13-39) U/L ALT 1080 H (7-52) U/L Alkaline Phosphatase 681 H (34-104) U/L Total Creatine Kinase (26-192) U/L Troponin I High Sens 118.0 H* (0-14) pg/ml Total Protein (6.0-8.3) gm/dl Albumin (3.4-5.0) gm/dl Globulin (2.5-4.0) gm/dl Urine Appearance Cloudy A (Clear) Urine Protein 3+ H (Negative) Urine Glucose (UA) Trace H (Negative) Urine Ketones Trace H (Negative) Urine Blood 3+ H (Negative) Urine Nitrite Positive A (Negative) Urine Bilirubin 1+ H (Negative) Ur Leukocyte Esterase Trace H (Negative) Urine RBC >20 H (0-2) /hpf Antibody Screen POSITIVE A Crossmatch See Detail 03/11/25 03/11/25 03/12/25 Range/Units 19:38 20:01 05:59 WBC (4.8-10.8) K/ul RBC 3.61 L (4.20-5.40) M/uL Hgb 11.6 L (12.0-16.0) g/dl POC Hgb (12.0-16.0) g/dl Hct 35.0 L (37.0-47.0) % POC Hct (37-47) % MCHC (32.0-36.0) g/dL RDW Std Deviation 58.2 H (36.4-46.3) fL RDW Coeff of Reginaldo 16.3 H (11.5-14.5) % Neut # (Auto) 7.81 H (1.40-6.50) K/uL Lymph # (Auto) 0.90 L (1.20-3.40) K/uL Canyon # (Auto) 0.64 H (0.11-0.59) K/uL VBG pH 7.27 L 7.33 L (7.36-7.41) VBG pCO2 37 L (38-50) mmHg Chloride 112 H (98-107) mmol/L Carbon Dioxide 20 L (21-32) mmol/L POC Total CO2 (24-31) mmol/L Anion Gap (3-11) POC BUN (7-18) mg/dl BUN 29 H (6-23) mg/dl Creatinine 1.84 H (0.6-1.2) mg/dl POC Creatinine (0.6-1.3) mg/dl Glucose 139 H (70-99(Fasting)) mg/dl POC Glucose (other) (70-99) mg/dl Hemoglobin A1c 5.9 H (4.5-5.6) % Calcium 8.0 L (8.6-10.3) mg/dl Total Bilirubin 2.8 H D (0.2-1.0) mg/dl Direct Bilirubin (0-0.2) mg/dl AST 245 H (13-39) U/L ALT 701 H (7-52) U/L Alkaline Phosphatase 519 H (34-104) U/L Total Creatine Kinase 22 L (26-192) U/L Troponin I High Sens 105.2 H* (0-14) pg/ml Total Protein 4.7 L D (6.0-8.3) gm/dl Albumin 2.6 L (3.4-5.0) gm/dl Globulin 2.1 L (2.5-4.0) gm/dl Urine Appearance (Clear) Urine Protein (Negative) Urine Glucose (UA) (Negative) Urine Ketones (Negative) Urine Blood (Negative) Urine Nitrite (Negative) Urine Bilirubin (Negative) Ur Leukocyte Esterase (Negative) Urine RBC (0-2) /hpf Antibody Screen Crossmatch
[2025-03-12] MEDS: TAMSULOSIN HCL 0.4 MG CAP PO SCH (12:40)
--- NOTE | 2025-03-12 12:40 | Electrocardiogram Report ---
Test Reason : Blood Pressure : */* mmHG Vent. Rate : 98 BPM Atrial Rate : * BPM P-R Int : * ms QRS Dur : 72 ms QT Int : 304 ms P-R-T Axes : * 4 250 degrees QTcB Int : 388 ms Atrial fibrillation Low voltage QRS Cannot rule out Inferior infarct (cited on or before 10-Nov-2024) Abnormal ECG When compared with ECG of 10-Nov-2024 17:28, Significant changes have occurred Confirmed by Allen Greenberg ([id number]) on 03/12/2025 12:40:07 PM Referred By: NO PCP Confirmed By: Allen Greenberg
[2025-03-12] MEDS: HYDROmorphone INJ 0.5 MG/0.5 ML SYR IV PRN ×2 (12:42→19:22)
[2025-03-12] MEDS ORDERED: VANCOMYCIN 750 MG in SODIUM CHLORIDE 0.9% 250 ML IV SCH (15:00)
[2025-03-12] MEDS ORDERED: 0.2 MICRON FILTER SET 1 EACH IV STA (18:04)
[2025-03-12] MEDS ORDERED: AMIODARONE IV BOLUS & DRIP IV STA (18:04)
[2025-03-12] MEDS ORDERED: STAT IV Infusion **Titration per Protocol STA (18:04)
[2025-03-12] MEDS: AMIODARONE / D5W 150 MG/100 ML BAG IV STA (18:12)
[2025-03-12] MEDS: AMIODARONE / D5W 360 MG/200 ML BAG IV ONE (18:24)
[2025-03-12] MEDS: HEPARIN SOD 5,000 UNIT/0.5 ML VIAL SQ SCH (20:15)
[2025-03-12 20:18] LABS: Magnesium 1.9 mg/dl (1.7-2.4)
--- NOTE | 2025-03-12 20:45 | XRay Report ---
Exam(s): XR CXR 1 VIEW EXAM: XR Chest, 1 View CLINICAL HISTORY: Reason for exam: sob. TECHNIQUE: Frontal view of the chest. COMPARISON: 03/11/2025 FINDINGS: Lungs: Lower lung volumes than previous with development of a small amount of left basilar atelectasis or infiltrate. Pleural space: Unremarkable. No pneumothorax. Heart: Unremarkable. No cardiomegaly. Mediastinum: Unremarkable. Normal mediastinal contour. Bones/joints: Previous multilevel instrumentation, fusion, and laminectomy in the cervical spine, unchanged. No acute fracture. Tubes, lines and devices: There is a Port-A-Cath on the right with the catheter tip in the superior vena cava, just above the right atrium. Upper abdomen: Unremarkable as visualized. No pneumoperitoneum under the diaphragm. IMPRESSION: 1. Lower lung volumes than previous with development of a small amount of left basilar atelectasis or infiltrate. 2. There is a Port-A-Cath on the right with the catheter tip in the superior vena cava, just above the right atrium. Electronically signed by: Izaiah Mitchell MD 03/12/25 20:44 PM
[2025-03-12] MEDS: MAGNESIUM SULFATE / D5W 1 GM/100 ML BAG IV ONE (20:53)
[2025-03-12] MEDS: FAMOTIDINE 10 MG TABLET PO SCH (20:53)
[2025-03-12] MEDS: ACETAMINOPHEN 500 MG TAB PO PRN (22:36)
[2025-03-13] MEDS: AMIODARONE / D5W 360 MG/200 ML BAG IV SCH (00:18)
[2025-03-13 06:18] LABS: Hematocrit (blood only) 32.7 % (37.0-47.0); Hemoglobin 10.5 g/dl (12.0-16.0); Immature Granulocytes # (auto) 0.03 K/uL (0.01-0.20); Immature Granulocytes % (auto) 0.3 %; Mean Corpuscular Hemoglobin 31.0 pg (25.0-34.0); Mean Corpuscular Volume 96.5 fL (80.0-100.0); Platelet Count 196 K/uL (130-400); RDW Standard Deviation 59.2 fL (36.4-46.3); Red Blood Count 3.39 M/uL (4.20-5.40); White Blood Count 8.94 K/ul (4.8-10.8)
[2025-03-13 06:42] LABS: Anion Gap 5.0 (3-11); Blood Urea Nitrogen 17.0 mg/dl (6-23); Calcium 8.1 mg/dl (8.6-10.3); Carbon Dioxide 22.0 mmol/L (21-32); Chloride 112.0 mmol/L (98-107); Creatinine Clr Calc Pharmacy 62.0 ml/min; Glucose 116.0 mg/dl (70-99(Fasting)); Potassium 3.6 mmol/L (3.5-5.1); Sodium 139.0 mmol/L (136-145)
[2025-03-13] MEDS: MIDODRINE HCL 2.5 MG TAB PO SCH (09:01)
[2025-03-13] MEDS: HEPARIN 100 UNIT/ML 5ML FLUSH FLUSH PRN (11:03)
--- NOTE | 2025-03-13 11:54 | Urology Progress Note ---
<Statement entered by Yair Stern MD - 03/13/25 17:30> case and chart reviewed agree with assessment and plan as is, reccomend maintain tobias pending outpatient follow up Date of Service March 13, 2025 Assessment & Plan (1) LILLIANA (acute kidney injury): (2) Bilateral hydronephrosis: Plan: 64-year-old female recently status post cystoscopy with bilateral retrograde pyelogram and stent placement, right ureteral dilation, left ureteroscopy and laser endopyelotomy on 03/08/[address] Williamson. She presented to the emergency department on 03/11/2025 for evaluation of fever and abdominal pain and was admitted for sepsis, LILLIANA, transaminitis, and atrial fibrillation with RVR. Patient is afebrile, hemodynamically stable Labs reviewedcreatinine improved to 0.82, no leukocytosis Urine culture with no growth Blood cultures prelim no growth Maintain Tobias catheter upon discharge to maximize drainage Hematuria can be expected with bilateral ureteral stents in place Plan to maintain ureteral stents for 3 to 4 weeks as planned Continue supportive care and medical management per hospital medicine service Will arrange outpatient follow-up with our service will sign off, please contact her service with any additional questions or concerns Admission and Anticipated Discharge Date Admission Date: March 11, 2025 Subjective Patient seen and examined at bedside this morning. She is sitting up in bedside chair. Reports feeling better today, but continues to have some flank/abdominal discomfort. Tobias intact with hematuria. No fever or chills. Review of Systems Constitutional: as per Subjective / HPI Genitourinary: as per Subjective / HPI Physical Exam Constitutional: no acute distress Respiratory: normal respiratory effort; no respiratory distress and no labored breathing Gastrointestinal (Abdomen): Inspection/Auscultation: abdomen normal to inspection Musculoskeletal: Head/Neck/Chest: normocephalic Neurologic: moves all extremities and awake Psychiatric: Orientation: alert and oriented x 3 Genitourinary: Tobias with hematuria Results & Data Vital Signs (Past 12 Hours) Vital Signs Temp Pulse Pulse Resp BP Pulse Ox O2 Del Method 03/13/25 11:33 36.8 C 79 18 97 Room Air 03/13/25 11:31 Room Air 03/13/25 07:54 36.2 C L 75 18 91/57 L 97 Room Air 03/13/25 07:51 76 03/13/25 02:21 36.8 C 81 16 93/61 L 97 Nasal Cannula 03/13/25 00:00 96 H O2 Flow Rate 03/13/25 11:33 03/13/25 11:31 03/13/25 07:54 03/13/25 07:51 03/13/25 02:21 2 03/13/25 00:00 PG Care Time/CCT Total # of Minutes Spent Total Time Spent with Patient: Total time spent is greater than 50% in coordination of care (as documented) at patient's floor/unit and/or counseling patient: Coding Level of Care Code 52004 SUB INP/OBS CARE 07/29MIN Diagnoses LILLIANA (acute kidney injury) N17.9 Bilateral hydronephrosis N13.30
[2025-03-13] MEDS ORDERED: VANCOMYCIN CONSULT ACTIVE PRN (12:00)
[2025-03-13] MEDS: LACTATED RINGER'S 500 ML IV ONE ×2 (12:04→12:49)
[2025-03-13] MEDS: VANCOMYCIN HCL / NSS 1,000 MG/270 ML BAG IV ONE (13:07)
--- NOTE | 2025-03-13 14:17 | Pharmacy Report ---
Pharmacy PK ABX Note - Date of Service March 13, 2025 - Assessment and Plan Assessment 64 year old F receiving meropenem for concerns for urinary infection. Patient s/p stent placement, R ureteral dilation, laser endopyelotomy on 03/08 presenting with sepsis on admission. Leukocytosis resolved, Scr much improved today however now becoming hypotensive. Provider adding vancomycin to regimen. Awaiting finalized cultures. Plan Vancomycin * Loading dose: 1000 mg IV x 1 * Maintenance dose: 750 mg IV every 12 hours * Regimen is predicted to achieve target AUC/ALMA of 400-600 mg/L.hr * Plan to order level if continued >48 hours Pharmacy will continue to follow and will adjust dose/frequency as necessary. Thank you. Pharmacy has transitioned to AUC monitoring for vancomycin. AUC/ALMA is the preferred PK/PD target and is associated with decreased risk of nephrotoxicity compared to traditional trough targets.
--- NOTE | 2025-03-13 14:27 | Hospitalist Progress Note ---
Date of Service March 13, 2025 Assessment & Plan (1) Atrial fibrillation with rapid ventricular response: Plan: Ms. Hackett is a pleasant 64F with PMH including idiopathic cardiac arrest/VT, PAT, hypertension, PAF (not on anticoagulation due to fall risk and anemia as per records), orthostatic hypotension on midodrine, hyperlipidemia/statin intolerance, asthma/COPD, CYNTHIA/narcolepsy as per records (currently CPAP noncompliant)celiac disease, GERD, irritable bowel syndrome, pancreas divisum, left adrenal tumor as per records, hypothyroidism, RLS, endometriosis/PCOS, hydronephrosis s/p Cystoscopy with bilateral retrograde pyelogram and stent placement, right ureteral dilatation, left ureteroscopy, laser endopyelotomy on 03/08/25 presents with abd pain/fever #Severe sepsis -qSOFA: 2 -Severe sepsis with acute renal dysfunction, hepatic dysfunction -BP responded to IVF boluses, now normotensive -Source: likely urine -UA: + nitrites, LE but no WBC or bacteria -CT AP showing severe b/l hydronephrosis, extravasation of urine from renal pelvis, gas in urinary bladder and L renal pelvis suggestive of emphysematous pyelo -BP started dropping this afternoon but responded to 1L LR -BP now stable at 90/55 -Lactate normal and she is asymptomatic Plan -Home midodrine increased to 5mg TID -Continue broad spectrum coverage with merrem. Add Vanc. severe beta lactam allergy -Deescalate as able -Appreciate urology input; no surgical plans at this time -Follow urine and blood cultures -Follow BP closely, she is ok with pressors and ICU level care if needed -Give IVF as tolerated. Monitor resp status #Bilateral hydronephrosis -S/p stent placement, R ureteral dilation, laser endopyelotomy on 03/08 -Urology following -Hematuria expected -Keep tobias in per urology -Holding flomax due to hypotension 03/13 #Afib with RVR -Secondary to sepsis -Rates now controlled Plan -BP now soft, will have to hold home verapamil -Not on AC due to chronic anemia per patient -No need for TTE at this time -Cardiac monitoring #LILLIANA -Suspect pre renal from hypotension/sepsis -Renal function is improving already Plan -BMP in AM -Avoid nephrotoxic agents if possible #Elevated LFTs -Suspect shock liver from hypoperfusion from sepsis -LFTs already improving -Can recheck every few days #Elevated troponin -Suspect type II nstemi- demand ischemia -No ACS, no chest pain #Anemia -Chronic -At baseline -No s/s acute blood loss. Do not believe the hematuria is contributing to her chronic anemia at this time -Monitor. transfuse < 7.0 #Orthostatic hypotension -Continue home midodrine I spent a total of 65 minutes coordinating, documenting, and providing care for this patient excluding time spent in the performance of separately billed services. This included personally reviewing all current laboratories and imaging studies, medical reconciliation, outpatient chart review and discussion with specialists Admission and Anticipated Discharge Date Admission Date: March 11, 2025 Subjective Feeling well today. Patient denies F/C, CP, palpitations, SOB, dyspnea, abd pain, N/V/D Patient seen three times throughout the day due to dropping blood pressure. she remains asymptomatic. Physical Exam Physical Exam: Vitals and labs reviewed General: Well appearing, NAD HEENT: EOMI, PERRLA Neck: Supple Cardiac: regular rate irregular rhythm Lungs: CTA no rhonchi wheezing or rales Abd: S NT ND BS positive : Tobias with bloody urine MSK: Full ROM. No obvious deformities Ext: No Edema cyanosis Skin: Warm, Dry Neuro: AOx3 No focal deficits. Psych: Normal Mood Results & Data Results & Data Vital Signs (Past 12 Hours) Vital Signs Temp Pulse Pulse Resp BP Pulse Ox O2 Del Method 03/13/25 13:45 84/55 L 03/13/25 13:03 89/56 L 03/13/25 12:45 80/44 L 03/13/25 12:30 68/40 L 03/13/25 11:55 66/46 L 03/13/25 11:40 82/45 L 03/13/25 11:35 73/42 L 03/13/25 11:33 36.8 C 79 18 97 Room Air 03/13/25 11:31 Room Air 03/13/25 07:54 36.2 C L 75 18 91/57 L 97 Room Air 03/13/25 07:51 76 Laboratory Results Abnormal lab results 03/13/25 Range/Units 05:57 RBC 3.39 L (4.20-5.40) M/uL Hgb 10.5 L (12.0-16.0) g/dl Hct 32.7 L (37.0-47.0) % RDW Std Deviation 59.2 H (36.4-46.3) fL RDW Coeff of Reginaldo 16.9 H (11.5-14.5) % Neut # (Auto) 7.06 H (1.40-6.50) K/uL Lymph # (Auto) 0.91 L (1.20-3.40) K/uL Imperial # (Auto) 0.85 H (0.11-0.59) K/uL Chloride 112 H (98-107) mmol/L BUN/Creatinine Ratio 20.7 H (10-20) Glucose 116 H (70-99(Fasting)) mg/dl Calcium 8.1 L (8.6-10.3) mg/dl
[2025-03-13] MEDS: MEROPENEM 500 MG in SYRINGE 0 ML IV SCH (16:37)
[2025-03-13] MEDS: VANCOMYCIN 750 MG in SODIUM CHLORIDE 0.9% 250 ML IV SCH (20:00)
[2025-03-14 06:06] LABS: Hematocrit (blood only) 29.8 % (37.0-47.0); Hemoglobin 9.6 g/dl (12.0-16.0); Immature Granulocytes # (auto) 0.03 K/uL (0.01-0.20); Immature Granulocytes % (auto) 0.4 %; Mean Corpuscular Hemoglobin 30.8 pg (25.0-34.0); Mean Corpuscular Volume 95.5 fL (80.0-100.0); Platelet Count 214 K/uL (130-400); RDW Standard Deviation 59.7 fL (36.4-46.3); Red Blood Count 3.12 M/uL (4.20-5.40); White Blood Count 8.10 K/ul (4.8-10.8)
[2025-03-14 06:24] LABS: Anion Gap 2.0 (3-11); Blood Urea Nitrogen 17.0 mg/dl (6-23); Calcium 8.0 mg/dl (8.6-10.3); Carbon Dioxide 23.0 mmol/L (21-32); Chloride 115.0 mmol/L (98-107); Creatinine Clr Calc Pharmacy 94.2 ml/min; Glucose 102.0 mg/dl (70-99(Fasting)); Potassium 3.7 mmol/L (3.5-5.1); Sodium 140.0 mmol/L (136-145)
[2025-03-14] MEDS: MoRPHine SULFATE 2 MG/ML CARP IV STA (09:54)
[2025-03-14] MEDS: HYDROmorphone INJ 0.5 MG/0.5 ML SYR IV PRN (11:13)
[2025-03-14] MEDS: VERAPAMIL HCL 180 MG TABCR PO SCH (12:27)
--- NOTE | 2025-03-14 15:30 | Hospitalist Progress Note ---
Date of Service March 14, 2025 Assessment & Plan (1) Atrial fibrillation with rapid ventricular response: Plan: Ms. Hackett is a pleasant 64F with PMH including idiopathic cardiac arrest/VT, PAT, hypertension, PAF (not on anticoagulation due to fall risk and anemia as per records), orthostatic hypotension on midodrine, hyperlipidemia/statin intolerance, asthma/COPD, CYNTHIA/narcolepsy as per records (currently CPAP noncompliant)celiac disease, GERD, irritable bowel syndrome, pancreas divisum, left adrenal tumor as per records, hypothyroidism, RLS, endometriosis/PCOS, hydronephrosis s/p Cystoscopy with bilateral retrograde pyelogram and stent placement, right ureteral dilatation, left ureteroscopy, laser endopyelotomy on 03/08/25 presents with abd pain/fever #Severe sepsis Severe sepsis with acute renal dysfunction, hepatic dysfunction Patient presented with abdominal pain and fever She was hypotensive requiring fluid boluses CT abdomen pelvis showed severe b/l hydronephrosis, extravasation of urine from renal pelvis, gas in urinary bladder and L renal pelvis suggestive of emphysematous pyelonephritis Urine cultureno growth Blood cultureno growth Continue ertapenem; meropenem and vancomycin discontinued. Continue midodrine Appreciate urology input; no surgical plan yetrecommend to continue Tobias catheter. #Bilateral hydronephrosis -S/p stent placement, R ureteral dilation, laser endopyelotomy on 03/08 -Hematuria expected -Keep tobias in per urology -Holding flomax due to hypotension 03/13 #Afib with RVR -Secondary to sepsis -Rates now controlled Plan -verapamil resumed -Not on AC due to chronic anemia per patient -No need for TTE at this time -Cardiac monitoring #LILLIANA -Suspect pre renal from hypotension/sepsis -Renal function is improving already Plan -BMP in AM -Avoid nephrotoxic agents if possible #Elevated LFTs -Suspect shock liver from hypoperfusion from sepsis -LFTs already improving #Elevated troponin -Suspect type II nstemi- demand ischemia -No ACS, no chest pain #Anemia -Chronic -At baseline -No s/s acute blood loss. Do not believe the hematuria is contributing to her chronic anemia at this time -Monitor. transfuse < 7.0 #Orthostatic hypotension -Continue home midodrine Time spent evaluating patient, direct bedside care, chart review, placing orders, interpretation of diagnostic studies, discussion with consultants, patient, and family members, as well as other required patient management activities is 50 minutes Please note the above document was generated using voice recognition software. It may contain grammatical, syntax or spelling errors. Any formal questions or concerns about the content, text or information contained within the body of this dictation should be directly addressed to the provider for clarification Admission and Anticipated Discharge Date Admission Date: March 11, 2025 Subjective Patient seen and examined at bedside. She reports pain in bilateral lower abdomen; well-controlled on pain meds. Denies fever, chills, chest pain or shortness of breath No significant events overnight Review of Systems Review of Systems: All systems reviewed & are unremarkable except as noted in Subjective Physical Exam Physical Exam: Constitutional: WD/WN, vitals as above, NAD, sitting up in bed, pleasant, conversing easily Respiratory: normal respiratory effort, lungs clear to auscultation, no wheeze, rales, rhonchi. Normal insp/exp effort, no accessory muscle use Cardiovascular: RRR, no murmur, no edema Vessels: no JVD or carotid bruit Chest: normal inspection of chest Abdomen: Tenderness in the bilateral lower abdomen and flank Skin: no rashes, warm and dry normal turgor Neurologic: PERRL, EOMI, accommodation nl, no face palsy, no dysarthria CN's II- XI intact bilaterally and moves all extremities Psychiatric: A+Ox3, euthymic affect Results & Data Results & Data Vital Signs (Past 12 Hours) Vital Signs Temp Pulse Pulse Resp BP Pulse Ox O2 Del Method 03/14/25 12:34 37.0 C 118 H 18 118/74 97 Room Air 03/14/25 08:17 36.7 C 109 H 18 141/82 H 96 Room Air 03/14/25 05:46 78 03/14/25 03:45 36.6 C 88 18 130/82 98 Room Air
[2025-03-14] MEDS: ERTAPENEM 1000MG 1,000 MG/10 ML SYR IV SCH (15:36)
[2025-03-15 01:54] LABS: Chlamydia pneumoniae PCR Not Detected (NotDetected); Coronavirus 229E PCR Not Detected (NotDetected); Coronavirus CoV-2 (COVID19)PCR Not Detected (NotDetected); Coronavirus HKU1 PCR Not Detected (NotDetected); Coronavirus NL63 PCR Not Detected (NotDetected); Coronavirus OC43PCR Not Detected (NotDetected); Human Metapneumovirus PCR Not Detected (NotDetected); Parainfluenza Virus 1 PCR Not Detected (NotDetected); Parainfluenza Virus 2 PCR Not Detected (NotDetected); Parainfluenza Virus 3 PCR Not Detected (NotDetected); Parainfluenza Virus 4 PCR Not Detected (NotDetected); Respiratory Syncytial VirusPCR Not Detected (NotDetected); Rhinovirus/Enterovirus PCR Not Detected (NotDetected)
[2025-03-15 06:19] LABS: Hematocrit (blood only) 27.4 % (37.0-47.0); Hemoglobin 9.2 g/dl (12.0-16.0); Immature Granulocytes # (auto) 0.03 K/uL (0.01-0.20); Immature Granulocytes % (auto) 0.4 %; Mean Corpuscular Hemoglobin 32.1 pg (25.0-34.0); Mean Corpuscular Volume 95.5 fL (80.0-100.0); Platelet Count 213 K/uL (130-400); RDW Standard Deviation 60.8 fL (36.4-46.3); Red Blood Count 2.87 M/uL (4.20-5.40); White Blood Count 7.86 K/ul (4.8-10.8)
[2025-03-15 06:39] LABS: Alanine Aminotransferase 264.0 U/L (7-52); Albumin Globulin Ratio 1.0 (0.9-2); Albumin Level 2.5 gm/dl (3.4-5.0); Alkaline Phosphatase 391.0 U/L (34-104); Anion Gap 5.0 (3-11); Bilirubin,Total 0.7 mg/dl (0.2-1.0); Blood Urea Nitrogen 21.0 mg/dl (6-23); Calcium 8.3 mg/dl (8.6-10.3); Carbon Dioxide 22.0 mmol/L (21-32); Chloride 113.0 mmol/L (98-107); Creatinine Clr Calc Pharmacy 84.9 ml/min; Globulin 2.4 gm/dl (2.5-4.0); Glucose 98.0 mg/dl (70-99(Fasting)); Potassium 4.0 mmol/L (3.5-5.1); Sodium 140.0 mmol/L (136-145); Total Protein 4.9 gm/dl (6.0-8.3)
[2025-03-15] MEDS: SODIUM CHLORIDE 0.9% 1,000 ML IV ONE (11:54)
[2025-03-15] MEDS: SODIUM CHLORIDE 0.9% 1,000 ML IV SCH (13:47)
--- NOTE | 2025-03-15 14:06 | Hospitalist Progress Note ---
Date of Service March 15, 2025 Assessment & Plan (1) Atrial fibrillation with rapid ventricular response: Plan: Ms. Hackett is a pleasant 64F with PMH including idiopathic cardiac arrest/VT, PAT, hypertension, PAF (not on anticoagulation due to fall risk and anemia as per records), orthostatic hypotension on midodrine, hyperlipidemia/statin intolerance, asthma/COPD, CYNTHIA/narcolepsy as per records (currently CPAP noncompliant)celiac disease, GERD, irritable bowel syndrome, pancreas divisum, left adrenal tumor as per records, hypothyroidism, RLS, endometriosis/PCOS, hydronephrosis s/p Cystoscopy with bilateral retrograde pyelogram and stent placement, right ureteral dilatation, left ureteroscopy, laser endopyelotomy on 03/08/25 presents with abd pain/fever #Severe sepsis Severe sepsis with acute renal dysfunction, hepatic dysfunction Patient presented with abdominal pain and fever She was hypotensive requiring fluid boluses CT abdomen pelvis showed severe b/l hydronephrosis, extravasation of urine from renal pelvis, gas in urinary bladder and L renal pelvis suggestive of emphysematous pyelonephritis Urine cultureno growth Blood cultureno growth Continue ertapenem; meropenem and vancomycin discontinued. Continue midodrine; Patient placed on IV fluids with normal saline at 125 cc/h given hypotension. Appreciate urology input; no surgical plan yetrecommend to continue Tobias catheter. #Bilateral hydronephrosis -S/p stent placement, R ureteral dilation, laser endopyelotomy on 03/08 -Hematuria expected -Keep tobias in per urology -Holding flomax due to hypotension 03/13 #Afib with RVR -Secondary to sepsis -Rates now controlled Plan -verapamil resumed; dose reduced to 120mg once a day. -Not on AC due to chronic anemia per patient -No need for TTE at this time -Cardiac monitoring #LILLIANA -Suspect pre renal from hypotension/sepsis -Renal function is improving already #Elevated LFTs -Suspect shock liver from hypoperfusion from sepsis -LFTs improving #Elevated troponin -Suspect type II nstemi- demand ischemia -No ACS, no chest pain #Anemia -Chronic -At baseline -No s/s acute blood loss. Do not believe the hematuria is contributing to her chronic anemia at this time -Monitor. transfuse < 7.0 #Orthostatic hypotension -Continue home midodrine Time spent evaluating patient, direct bedside care, chart review, placing orders, interpretation of diagnostic studies, discussion with consultants, patient, and family members, as well as other required patient management activities is 50 minutes Please note the above document was generated using voice recognition software. It may contain grammatical, syntax or spelling errors. Any formal questions or concerns about the content, text or information contained within the body of this dictation should be directly addressed to the provider for clarification Admission and Anticipated Discharge Date Admission Date: March 11, 2025 Subjective Patient seen and examined at bedside. She continues to report intermittent lower abdominal pain. Was found to be hypotensive in the afternoon; requiring IV fluid boluses. Lactic acid and cortisol within normal limits Review of Systems Review of Systems: All systems reviewed & are unremarkable except as noted in Subjective Physical Exam Physical Exam: Constitutional: WD/WN, vitals as above, NAD, sitting up in bed, pleasant, conversing easily Respiratory: normal respiratory effort, lungs clear to auscultation, no wheeze, rales, rhonchi. Normal insp/exp effort, no accessory muscle use Cardiovascular: RRR, no murmur, no edema Vessels: no JVD or carotid bruit Chest: normal inspection of chest Abdomen: Tenderness in the bilateral lower abdomen and flank Skin: no rashes, warm and dry normal turgor Neurologic: PERRL, EOMI, accommodation nl, no face palsy, no dysarthria CN's II- XI intact bilaterally and moves all extremities Psychiatric: A+Ox3, euthymic affect Results & Data Results & Data Vital Signs (Past 12 Hours) Vital Signs Temp Pulse Pulse Resp BP BP Pulse Ox 03/15/25 11:42 36.7 C 67 18 68/35 L 70/40 L 95 03/15/25 10:49 03/15/25 08:00 36.8 C 80 19 121/82 96 03/15/25 04:19 36.7 C 67 17 104/69 96 03/15/25 03:25 84 13 100 O2 Del Method O2 Flow Rate 03/15/25 11:42 Room Air 03/15/25 10:49 Room Air 03/15/25 08:00 Room Air 03/15/25 04:19 Room Air 03/15/25 03:25 2
--- NOTE | 2025-03-15 15:24 | Urology Progress Note ---
<Statement entered by Yair Stern MD - 03/16/25 09:18> Chart reviewed, plan reviewed and agree as written. Favor flomax, phenazopyridine, mirabegron, gemtesa, can use anticholinergics eg vesicare but these may have cognitive or bowel side effects Date of Service March 15, 2025 Assessment & Plan (1) Bilateral hydronephrosis: Plan: Urology recalled due to catheter concern Patient is afebrile, hypotensive today Labs reviewedcreatinine 0.61, no leukocytosis Urine and blood cultures this admission with no growth, on empiric antibiotics Nursing contacted me with Jose catheter concerns this afternoon I assessed Jose catheter at bedsideirrigated and aspirated without difficulty, Jose catheter was draining well upon completion, minimal sediment, but no clots returned Continue to monitor catheter and gently irrigate if it becomes obstructed Maintain Jose catheter upon discharge to maximize drainage Hematuria can be expected with bilateral ureteral stents in place Plan to maintain ureteral stents for 3 to 4 weeks as planned Continue supportive care and medical management per hospital medicine service Consider changing her anticholinergic from prn to scheduled for stent management, can give extended release or switch to Gemtesa Will arrange outpatient follow-up with our service will sign off, please contact her service with any additional questions or concerns (2) LILLIANA (acute kidney injury): Admission and Anticipated Discharge Date Admission Date: March 11, 2025 Subjective Asked by nursing to reassess the patient due to concern of her Jose not draining well today. Nursing irrigated catheter and reported it flushed okay but had difficulty aspirating. Patient seen and examined at bedside. She reports bilateral flank discomfort. No fever or chills. Review of Systems Constitutional: as per Subjective / HPI Genitourinary: as per Subjective / HPI Physical Exam Constitutional: no acute distress Respiratory: normal respiratory effort; no respiratory distress and no labored breathing Gastrointestinal (Abdomen): Inspection/Auscultation: abdomen normal to inspection Musculoskeletal: Head/Neck/Chest: normocephalic Neurologic: moves all extremities and awake Psychiatric: Orientation: alert and oriented x 3 Genitourinary: Jose catheter was examined and clear minimally pink-tinged urine was draining from Jose catheter I irrigated Jose catheter with approximately 120 mL of sterile. Catheter flushed easily and I was able to aspirate/withdraw without difficulty. Minor sediment noted, no significant clots or debris withdrawn. Patient tolerated procedure well. Jose catheter was draining upon completion. Results & Data Vital Signs (Past 12 Hours) Vital Signs Temp Pulse Pulse Resp BP BP Pulse Ox 03/15/25 13:00 90/60 L 03/15/25 13:00 62 03/15/25 11:42 36.7 C 67 18 68/35 L 70/40 L 95 03/15/25 11:00 71 03/15/25 10:49 03/15/25 08:00 36.8 C 80 19 121/82 96 03/15/25 04:19 36.7 C 67 17 104/69 96 03/15/25 03:25 84 13 100 O2 Del Method O2 Flow Rate 03/15/25 13:00 03/15/25 13:00 03/15/25 11:42 Room Air 03/15/25 11:00 03/15/25 10:49 Room Air 03/15/25 08:00 Room Air 03/15/25 04:19 Room Air 03/15/25 03:25 2 PG Care Time/CCT Total # of Minutes Spent Total Time Spent with Patient: Total time spent is greater than 50% in coordination of care (as documented) at patient's floor/unit and/or counseling patient: Coding Level of Care Code 60312 SUB INP/OBS CARE 07/29MIN Diagnoses Bilateral hydronephrosis N13.30 LILLIANA (acute kidney injury) N17.9
[2025-03-16 06:25] LABS: Hematocrit (blood only) 28.0 % (37.0-47.0); Hemoglobin 9.1 g/dl (12.0-16.0); Immature Granulocytes # (auto) 0.03 K/uL (0.01-0.20); Immature Granulocytes % (auto) 0.4 %; Mean Corpuscular Hemoglobin 31.7 pg (25.0-34.0); Mean Corpuscular Volume 97.6 fL (80.0-100.0); Platelet Count 259 K/uL (130-400); RDW Standard Deviation 62.3 fL (36.4-46.3); Red Blood Count 2.87 M/uL (4.20-5.40); White Blood Count 7.60 K/ul (4.8-10.8)
[2025-03-16 06:46] LABS: Alanine Aminotransferase 182.0 U/L (7-52); Albumin Level 2.3 gm/dl (3.4-5.0); Alkaline Phosphatase 392.0 U/L (34-104); Anion Gap 5.0 (3-11); Bilirubin,Total 0.6 mg/dl (0.2-1.0); Blood Urea Nitrogen 16.0 mg/dl (6-23); Calcium 8.1 mg/dl (8.6-10.3); Carbon Dioxide 22.0 mmol/L (21-32); Chloride 115.0 mmol/L (98-107); Creatinine Clr Calc Pharmacy 101.6 ml/min; Glucose 94.0 mg/dl (70-99(Fasting)); Potassium 3.8 mmol/L (3.5-5.1); Sodium 142.0 mmol/L (136-145); Total Protein 4.7 gm/dl (6.0-8.3)
[2025-03-16] MEDS: VERAPAMIL HCL 120 MG TABCR PO SCH (08:32)
--- NOTE | 2025-03-16 13:15 | Hospitalist Progress Note ---
Date of Service March 16, 2025 Assessment & Plan (1) Atrial fibrillation with rapid ventricular response: Plan: Ms. Hackett is a pleasant 64F with PMH including idiopathic cardiac arrest/VT, PAT, hypertension, PAF (not on anticoagulation due to fall risk and anemia as per records), orthostatic hypotension on midodrine, hyperlipidemia/statin intolerance, asthma/COPD, CYNTHIA/narcolepsy as per records (currently CPAP noncompliant)celiac disease, GERD, irritable bowel syndrome, pancreas divisum, left adrenal tumor as per records, hypothyroidism, RLS, endometriosis/PCOS, hydronephrosis s/p Cystoscopy with bilateral retrograde pyelogram and stent placement, right ureteral dilatation, left ureteroscopy, laser endopyelotomy on 03/08/25 presents with abd pain/fever #Severe sepsis Severe sepsis with acute renal dysfunction, hepatic dysfunction Patient presented with abdominal pain and fever She was hypotensive requiring fluid boluses CT abdomen pelvis showed severe b/l hydronephrosis, extravasation of urine from renal pelvis, gas in urinary bladder and L renal pelvis suggestive of emphysematous pyelonephritis Urine cultureno growth Blood cultureno growth Patient was given antibiotics for total of 5 days; urine culture and blood culture are negative. Plan is to continue to monitor off antibiotics. Appreciate urology input; no surgical plan yetrecommend to continue Tobias catheter. #Bilateral hydronephrosis -S/p stent placement, R ureteral dilation, laser endopyelotomy on 03/08 -Hematuria expected -Keep tobias in per urology -Holding flomax due to hypotension 03/13 #Afib with RVR -Secondary to sepsis -Rates now controlled Plan -verapamil resumed; dose reduced to 120mg once a day. -Not on AC due to chronic anemia per patient -No need for TTE at this time -Cardiac monitoring #LILLIANA -Suspect pre renal from hypotension/sepsis -Renal function improved #Elevated LFTs -Suspect shock liver from hypoperfusion from sepsis -LFTs improving #Elevated troponin -Suspect type II nstemi- demand ischemia -No ACS, no chest pain #Anemia -Chronic -At baseline -No s/s acute blood loss. Do not believe the hematuria is contributing to her chronic anemia at this time -Monitor. transfuse < 7.0 #Orthostatic hypotension -Continue home midodrine;Has been increased to 5 mg 3 times daily DVT prophylaxis heparin Full code DispositionPT OT ordered; may benefit from rehab. Time spent evaluating patient, direct bedside care, chart review, placing orders, interpretation of diagnostic studies, discussion with consultants, patient, and family members, as well as other required patient management activities is 50 minutes Please note the above document was generated using voice recognition software. It may contain grammatical, syntax or spelling errors. Any formal questions or concerns about the content, text or information contained within the body of this dictation should be directly addressed to the provider for clarification Admission and Anticipated Discharge Date Admission Date: March 11, 2025 Subjective Patient seen and examined at bedside; she is comfortablenot in distress. She denies fever, chills, chest pain dizziness or shortness of breath. Review of Systems Review of Systems: All systems reviewed & are unremarkable except as noted in Subjective Physical Exam Physical Exam: Constitutional: WD/WN, vitals as above, NAD, sitting up in bed, pleasant, conversing easily Respiratory: normal respiratory effort, lungs clear to auscultation, no wheeze, rales, rhonchi. Normal insp/exp effort, no accessory muscle use Cardiovascular: RRR, no murmur, no edema Vessels: no JVD or carotid bruit Chest: normal inspection of chest Abdomen: soft, non-tender Skin: no rashes, warm and dry normal turgor Neurologic: PERRL, EOMI, accommodation nl, no face palsy, no dysarthria CN's II- XI intact bilaterally and moves all extremities Psychiatric: A+Ox3, euthymic affect Results & Data Results & Data Vital Signs (Past 12 Hours) Vital Signs Temp Pulse Pulse Resp BP Pulse Ox O2 Del Method 03/16/25 12:11 Room Air 03/16/25 11:34 36.6 C 68 19 89/55 L 97 Room Air 03/16/25 08:00 87 03/16/25 07:50 36.8 C 91 H 18 127/84 99 Room Air 03/16/25 03:05 37.0 C 86 17 126/69 98 Room Air
[2025-03-17 06:59] LABS: Hematocrit (blood only) 28.8 % (37.0-47.0); Hemoglobin 9.3 g/dl (12.0-16.0); Immature Granulocytes # (auto) 0.03 K/uL (0.01-0.20); Immature Granulocytes % (auto) 0.4 %; Mean Corpuscular Hemoglobin 31.8 pg (25.0-34.0); Mean Corpuscular Volume 98.6 fL (80.0-100.0); Platelet Count 300 K/uL (130-400); RDW Standard Deviation 62.5 fL (36.4-46.3); Red Blood Count 2.92 M/uL (4.20-5.40); White Blood Count 8.03 K/ul (4.8-10.8)
[2025-03-17 07:29] LABS: Alanine Aminotransferase 136.0 U/L (7-52); Albumin Level 2.3 gm/dl (3.4-5.0); Alkaline Phosphatase 370.0 U/L (34-104); Anion Gap 5.0 (3-11); Bilirubin,Total 0.5 mg/dl (0.2-1.0); Blood Urea Nitrogen 12.0 mg/dl (6-23); Calcium 8.1 mg/dl (8.6-10.3); Carbon Dioxide 21.0 mmol/L (21-32); Chloride 116.0 mmol/L (98-107); Creatinine Clr Calc Pharmacy 103.6 ml/min; Glucose 91.0 mg/dl (70-99(Fasting)); Potassium 3.8 mmol/L (3.5-5.1); Sodium 142.0 mmol/L (136-145); Total Protein 4.7 gm/dl (6.0-8.3)
--- NOTE | 2025-03-17 13:47 | Hospitalist Progress Note ---
Date of Service March 17, 2025 Assessment & Plan (1) Atrial fibrillation with rapid ventricular response: Plan: Ms. Hackett is a pleasant 64F with PMH including idiopathic cardiac arrest/VT, PAT, hypertension, PAF (not on anticoagulation due to fall risk and anemia as per records), orthostatic hypotension on midodrine, hyperlipidemia/statin intolerance, asthma/COPD, CYNTHIA/narcolepsy as per records (currently CPAP noncompliant)celiac disease, GERD, irritable bowel syndrome, pancreas divisum, left adrenal tumor as per records, hypothyroidism, RLS, endometriosis/PCOS, hydronephrosis s/p Cystoscopy with bilateral retrograde pyelogram and stent placement, right ureteral dilatation, left ureteroscopy, laser endopyelotomy on 03/08/25 presents with abd pain/fever #Severe sepsis Severe sepsis with acute renal dysfunction, hepatic dysfunction Patient presented with abdominal pain and fever She was hypotensive requiring fluid boluses CT abdomen pelvis showed severe b/l hydronephrosis, extravasation of urine from renal pelvis, gas in urinary bladder and L renal pelvis suggestive of emphysematous pyelonephritis Urine cultureno growth Blood cultureno growth Patient was given antibiotics for total of 5 days; urine culture and blood culture are negative. Plan is to continue to monitor off antibiotics. Appreciate urology input; no surgical plan yetrecommend to continue Tobias catheter. #Bilateral hydronephrosis -S/p stent placement, R ureteral dilation, laser endopyelotomy on 03/08 -Hematuria expected -Keep tobias in per urology -Holding flomax due to hypotension 03/13 #Afib with RVR -Secondary to sepsis -Rates now controlled Plan -verapamil resumed; dose reduced to 120mg once a day. -Not on AC due to chronic anemia per patient -No need for TTE at this time -Cardiac monitoring #LILLIANA -Suspect pre renal from hypotension/sepsis -Renal function improved #Elevated LFTs -Suspect shock liver from hypoperfusion from sepsis -LFTs improving #Elevated troponin -Suspect type II nstemi- demand ischemia -No ACS, no chest pain #Anemia -Chronic -At baseline -No s/s acute blood loss. Do not believe the hematuria is contributing to her chronic anemia at this time -Monitor. transfuse < 7.0 #Orthostatic hypotension -Continue home midodrine;Has been increased to 5 mg 3 times daily DVT prophylaxis heparin Full code DispositionPT OT ordered; may benefit from rehab. Time spent evaluating patient, direct bedside care, chart review, placing orders, interpretation of diagnostic studies, discussion with consultants, patient, and family members, as well as other required patient management activities is 50 minutes Please note the above document was generated using voice recognition software. It may contain grammatical, syntax or spelling errors. Any formal questions or concerns about the content, text or information contained within the body of this dictation should be directly addressed to the provider for clarification Admission and Anticipated Discharge Date Admission Date: March 11, 2025 Subjective Patient seen and examined at bedside. She reports her abdomen pain has signif icantly improved. Denies dizziness while getting up and moving No significant events overnight Review of Systems Review of Systems: All systems reviewed & are unremarkable except as noted in Subjective Physical Exam Physical Exam: Constitutional: WD/WN, vitals as above, NAD, sitting up in bed, pleasant, conversing easily Respiratory: normal respiratory effort, lungs clear to auscultation, no wheeze, rales, rhonchi. Normal insp/exp effort, no accessory muscle use Cardiovascular: RRR, no murmur, no edema Vessels: no JVD or carotid bruit Chest: normal inspection of chest Abdomen: soft, non-tender Skin: no rashes, warm and dry normal turgor Neurologic: PERRL, EOMI, accommodation nl, no face palsy, no dysarthria CN's II- XI intact bilaterally and moves all extremities Psychiatric: A+Ox3, euthymic affect Results & Data Results & Data Vital Signs (Past 12 Hours) Vital Signs Temp Pulse Pulse Resp BP Pulse Ox O2 Del Method 03/17/25 12:02 36.3 C L 77 20 91/61 L 93 Room Air 03/17/25 08:11 36.6 C 86 18 125/86 97 Room Air 03/17/25 05:53 113 H 03/17/25 03:45 36.9 C 103 H 16 149/96 H 96 Room Air
[2025-03-18 06:31] LABS: Hematocrit (blood only) 30.3 % (37.0-47.0); Hemoglobin 9.5 g/dl (12.0-16.0); Immature Granulocytes # (auto) 0.04 K/uL (0.01-0.20); Immature Granulocytes % (auto) 0.6 %; Mean Corpuscular Hemoglobin 30.6 pg (25.0-34.0); Mean Corpuscular Volume 97.7 fL (80.0-100.0); Platelet Count 324 K/uL (130-400); RDW Standard Deviation 59.7 fL (36.4-46.3); Red Blood Count 3.10 M/uL (4.20-5.40); White Blood Count 7.04 K/ul (4.8-10.8)
[2025-03-18 06:56] LABS: Alanine Aminotransferase 138.0 U/L (7-52); Albumin Level 2.4 gm/dl (3.4-5.0); Alkaline Phosphatase 512.0 U/L (34-104); Anion Gap 5.0 (3-11); Bilirubin,Total 0.5 mg/dl (0.2-1.0); Blood Urea Nitrogen 12.0 mg/dl (6-23); Calcium 8.6 mg/dl (8.6-10.3); Carbon Dioxide 23.0 mmol/L (21-32); Chloride 113.0 mmol/L (98-107); Creatinine Clr Calc Pharmacy 96.0 ml/min; Glucose 89.0 mg/dl (70-99(Fasting)); Potassium 3.9 mmol/L (3.5-5.1); Sodium 141.0 mmol/L (136-145); Total Protein 5.1 gm/dl (6.0-8.3)
[2025-03-18 08:15] VITALS: O2SAT 95
[2025-03-18 10:58] VITALS: PULSE 166; RESP 17; TEMP 98.1
--- NOTE | 2025-03-18 11:26 | Discharge Summary ---
Date of Service March 18, 2025 Admission HPI Per Admitting Provider History obtained from patient and records. Medical history is significant for history idiopathic cardiac arrest/VT, PAT, hypertension, PAF (not on anticoagulation due to fall risk and anemia as per records), orthostatic hypotension on midodrine, hyperlipidemia/statin intolerance, asthma/COPD, CYNTHIA/narcolepsy on CPAP, urolithiasis, hydronephrosis, celiac disease, GERD, irritable bowel syndrome, pancreas divisum, left adrenal tumor as per records, hypothyroidism, RLS, endometriosis/PCOS, hx MRSA. Last confinement September 2024 for Norovirus illness. Patient underwent outpatient urologic procedure for bilateral hydronephrosis/ureteral stones by [facility] urologist 3 days ago. Cystoscopy with bilateral retrograde pyelogram and stent placement, right ureteral dilatation, left ureteroscopy, laser endopyelotomy done as per op report. Postprocedure, patient noted progressive hypogastric pain going to her groin and upper belly associated with persistent hematuria. Nausea without emesis symptoms. Poor appetite. No fever, no chills, no chest pain, no SOB. Patient noted to be in rapid A-fib upon arrival at the ER. Heart rate 150s, initial SBP 60s. Fluid boluses and meropenem administered at the ER. Heart rate currently 130s, SBP currently 130s. MEDICAL HISTORY: As above. SURGICAL HISTORY: TAHBSO, cholecystectomy, appendectomy, ankle surgery, knee surgery, nasal reconstruction, sinus surgery, finger tendon sheath surgery, urologic procedure, laminectomy/spine surgery FAMILY HISTORY: Family history of unknown. Patient is adopted. PERSONAL/SOCIAL HISTORY: Nonsmoker. No chronic intake of inatke of ETOH. 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 Admission Exam Per Admitting Provider GENERAL: Slightly uncomfortable, ill-appearing, no respiratory distress SKIN: Normal color, warm HEENT: Pale palpebral conjunctivae, no ptosis, dry buccal mucosa NECK : Supple, no tenderness CHEST : Decreased breath sounds, no tenderness HEART : Irregular, no obvious murmurs ABDOMEN: Some distention, hypogastric tenderness EXTREMITIES : No LE swelling, no LE tenderness, no other conspicuous deformities noted NEUROLOGIC : Coherent, no facial asymmetry, no other gross focality Principal Diagnosis #Severe sepsis Severe sepsis with acute renal dysfunction, hepatic dysfunction Discharge Data Allergies Allergy/AdvReac Type Severity Reaction Status Date / Time bee venom protein (honey bee) Allergy Severe ANAPHYLAXIS Verified 03/08/25 09:24 coconut Allergy Severe RASH; SOB Verified 03/08/25 09:24 gluten Allergy Severe CELIAC'S Verified 03/08/25 09:24 latex Allergy Severe Anaphylaxis Verified 03/08/25 09:24 Penicillins Allergy Severe Anaphylaxis Verified 03/08/25 09:24 Sulfa (Sulfonamide Allergy Severe Anaphylaxis Verified 03/08/25 09:24 Antibiotics) ROBER Inhibitors Allergy Intermediate RASH/TACHYC Verified 03/08/25 09:24 ARDIA cefaclor Allergy Intermediate CECLOR--RASH/UPSET Verified 03/08/25 09:24 STOMACH egg Allergy Intermediate RASH & Verified 03/08/25 09:24 Bloating Influenza Virus Vaccines Allergy Intermediate rash and Verified 03/08/25 09:24 bloating tetracycline Allergy Intermediate NAUSEA/VOMI Verified 03/08/25 09:24 TING/RASH Quinolones Allergy Unknown ALLERGY TO Verified 03/08/25 09:24 AVELOX ,CAN TAKE CIPRO OR LEVAQUIN W/O RXN Beta-Blockers AdvReac Intermediate intolerance Verified 03/08/25 09:24 (Beta-Adrenergic Bloc as per records lactose AdvReac Intermediate BLOATING; Verified 03/08/25 09:24 DIARRHEA; VOMITING Consultations 03/11/25 19:35 ED Decision to Admit Stat 03/12/25 06:20 Consult Urology Routine Ordered Studies 03/11/25 18:12 CT abd pelvis wo con Stat Hospital Course (1) Atrial fibrillation with rapid ventricular response: (2) LILLIANA (acute kidney injury): Plan Ms. Hackett is a pleasant 64F with PMH including idiopathic cardiac arrest/VT, PAT, hypertension, PAF (not on anticoagulation due to fall risk and anemia as per records), orthostatic hypotension on midodrine, hyperlipidemia/statin intolerance, asthma/COPD, CYNTHIA/narcolepsy as per records (currently CPAP noncompliant)celiac disease, GERD, irritable bowel syndrome, pancreas divisum, left adrenal tumor as per records, hypothyroidism, RLS, endometriosis/PCOS, hydronephrosis s/p Cystoscopy with bilateral retrograde pyelogram and stent placement, right ureteral dilatation, left ureteroscopy, laser endopyelotomy on 03/08/25 presents with abd pain/fever #Severe sepsis Severe sepsis with acute renal dysfunction, hepatic dysfunction LILLIANA Elevated liver enzymes Patient presented with abdominal pain and fever She was hypotensive requiring fluid boluses CT abdomen pelvis showed severe b/l hydronephrosis, extravasation of urine from renal pelvis, gas in urinary bladder and L renal pelvis suggestive of emphysematous pyelonephritis Urine cultureno growth Blood cultureno growth Patient was given antibiotics for total of 5 days; urine culture and blood culture are negative. Urology was consulted comanagement; they recommended they recommended to continue Jose after discharge to maximize drainage, no further intervention was recommended. During the hospitalization, patient had multiple episode of hypotension requiring fluid boluses. Dose of midodrine was titrated up to 5 mg 3 times daily. Her verapamil dose was decreased from 180 mg to 120 mg once a day. She was discharged with Jose catheter; with instructions to follow-up with her PCP and urology as outpatient. Her kidney function normalized. Her liver enzymes were in downtrending trend; patient to follow-up with PCP and repeat comprehensive metabolic panel to follow-up on electrolytes, BUN/creatinine, liver enzymes. Please note the above document was generated using voice recognition software. It may contain grammatical, syntax or spelling errors. Any formal questions or concerns about the content, text or information contained within the body of this dictation should be directly addressed to the provider for clarification Total Time Total Time Spent Total Time Spent (In Minutes): 45 Total Time Includes: Examination of the Patient, Discharge Planning, Medication Reconciliation, Communication With Other Providers and Other Discharge Plan Discharge Items Patient Disposition: Home - Self-Care Reason For Visit: AF, SEPSIS Discharge Diagnosis: Atrial fibrillation with rapid ventricular response: Severe sepsis Severe sepsis with acute renal dysfunction, hepatic dysfunction Condition on Discharge: Fair Activity: Resume your previous activity Non-emergency contact: Primary Care Provider Call non-emergency contact if: you have any medication questions and your symptoms worsen Follow-up/Referrals: Vicki Watson MD [Primary Care Provider] - Diet: Regular Addtl Attending Provider Instructions: You were admitted to the hospital due to abdominal pain. You were evaluated by urology; they recommend to maintain Jose catheter to maximize drainage. Urology wants to maintain ureteral catheter for 3 to 4 weeks; follow-up with them for further management. Appointment will be set up with your primary care doctor; please discuss changing topiramate to an alternative medication given your history of renal stones. Dose of verapamil has been decreased to 120 mg once a day. You were previously on 180 mg once a day. The midodrine dose has been increased from 2.5 mg to 5 mg 3 times a day. Pending Studies at Discharge: No Stand-Alone Forms: My [facility], Smoking Cessation Medications and DC Order Prescriptions: New midodrine 5 mg tablet 5 mg PO TID Qty: 90 0RF Rx Instructions: do not give last dose of day after 6PM or within 4 hrs of bedtime verapamil 120 mg Tablet Extended Release 120 mg PO DAILY Qty: 30 0RF oxycodone 5 mg Tablet 5 mg PO Q4H PRN (Reason: pain) Qty: 15 0RF Continued fluticasone propion-salmeterol [Advair Diskus] 250-50 mcg/dose Blister With Device 1 inh INHALATION BID atorvastatin 20 mg Tablet 20 mg PO HS cimetidine 400 mg Tablet 400 mg PO BID Rx Instructions: administer with meals hyoscyamine sulfate 0.375 mg Tablet Extended Release 12 Hr 0.375 mg PO Q6H PRN (Reason: Abdominal Pain) folic acid 1 mg Tablet 1 mg PO BID montelukast 10 mg Tablet 10 mg PO HS levothyroxine 100 mcg Capsule 100 mcg PO QAM Combivent Respimat 20-100 mcg/actuation Mist 1 puff INHALATION QID PRN (Reason: Shortness Of Breath Or Wheezing) Rx Instructions: space evenly during waking hours rabeprazole [AcipHex] 20 mg Tablet,Delayed Release (Dr/Ec) 40 mg PO BID sucralfate 1 gram Tablet 1 g PO ACHS fexofenadine 180 mg Tablet 180 mg PO QAM aspirin 81 mg Tablet,Delayed Release (Dr/Ec) 81 mg PO QAM topiramate 100 mg Tablet 100 mg PO BID multivitamin Tablet 1 tab PO QAM levalbuterol HCl 1.25 mg/3 mL Solution For Nebulization 1.25 mg INHALATION Q6H amitriptyline 75 mg Tablet 75 mg PO HS ondansetron 4 mg Tablet,Disintegrating 4 mg PO Q8H PRN (Reason: Nausea And Vomiting) polyethylene glycol 3350 [Miralax] 17 gram Powder In Packet 17 g PO QAM mometasone 50 mcg/actuation [place],Non-Aerosol 2 spray INTRANASAL BID Rx Instructions: administer into each nostril azelastine 137 mcg (0.1 %) [place],Non-Aerosol 1 spray INTRANASAL BID Rx Instructions: administer into each nostril (DME) CPAP Machine Misc Rx Instructions: 1 LPM bled through CPAP during hours of sleep phenazopyridine [Pyridium] 200 mg tablet 200 mg PO Q8H PRN (Reason: pain) Qty: 10 0RF levofloxacin 500 mg tablet 500 mg PO DAILY 7 Days Qty: 7 0RF oxybutynin chloride 5 mg tablet 5 mg PO Q8H PRN (Reason: bladder spasms) Qty: 9 0RF epinephrine 0.3 mg/0.3 mL auto-injector 0.3 mg subcut UD PRN (Reason: Anaphylaxis) Discontinued midodrine 2.5 mg Tablet 2.5 mg PO TID Rx Instructions: Take 1 tablet in the morning, 1 tablet at noon, 1 tablet at dinner verapamil 180 mg capsule,ext rel. pellets 24 hr 180 mg PO DAILY Discharge Orders: Discharge Order (Routine); Ordered 03/18/25 Ordered By: Tito Brower/Other Patient Handouts: Gluten-Free Diet for Celiac Disease, Monitoring Kidney Health, AFib Admission Data Admit Date/Time: 03/11/25 20:04 Attending Provider: Tito Rodriguez Admit Provider: Timbo Roque Primary Care Provider: Vicki Watson Other Providers: Mike Johnson; Yair Stern Other Interventions: Discharge Summary Assessment (RN) Last Done: 03/18/25 13:20
[2025-03-18 13:22] VITALS: BP 119/81
--- NOTE | 2025-03-20 06:43 | Coding Query ---
CODING QUERY To promote full compliance with coding requirements relating to patient care, provider participation is requested in all cases of molding supervisor uncertainty. Please assist us with the question(s) below: Coding Question(s): Pt admitted 3 days after Urinary Stent /kidney laser lithotripsy procedure with abdominal pain. Urine and blood cultures negative. Please document, if known or suspected, the etiology of the Severe Sepsis . Thanks for your help! Milton William [employer] [facility] Physician's Response(s): Severe sepsis, source unknown Principal Diagnosis: "that condition established after study, to be chiefly responsible for occasioning the admission of the patient to the hospital for care." Co-Existing Principal Diagnosis: "when two or more diagnoses equally meet the criteria for principal diagnosis as determined by the circumstances of admission, diagnostic work up, and/or therapy provided, and the Alphabetic Index, Tabular List, or another coding guideline does not provide sequencing direction, any one of the diagnoses may be sequenced first." "When the physician has documented what appears to be a current diagnosis in the body of the record, but has not included the diagnosis in the final diagnostic statement, the physician should be asked whether the diagnosis should be added." (Source Coding Clinic 2 QTR90. p3-4) [place]
== END 2025-03-18 15:01 | disposition home or self-care (01) | DRG 871 ==
LOC: ED 17:02 → SUATTDRO 20:04 → 4W 20:04

== ENCOUNTER 2025-03-27 15:54 | Inpatient (IN) ==
[2025-03-27 16:51] LABS: Hematocrit (blood only) 40.1 % (37.0-47.0); Hemoglobin 12.4 g/dl (12.0-16.0); Immature Granulocytes # (auto) 0.06 K/uL (0.01-0.20); Immature Granulocytes % (auto) 0.6 %; Mean Corpuscular Hemoglobin 30.6 pg (25.0-34.0); Mean Corpuscular Volume 99.0 fL (80.0-100.0); Platelet Count 507 K/uL (130-400); RDW Standard Deviation 58.8 fL (36.4-46.3); Red Blood Count 4.05 M/uL (4.20-5.40); White Blood Count 10.51 K/ul (4.8-10.8)
--- NOTE | 2025-03-27 17:10 | Emergency Department Note ---
Impression & Plan Generalized weakness, Atrial fibrillation with rapid ventricular response, Elevated procalcitonin, Acute UTI (urinary tract infection) ED Provider Note HISTORY OF PRESENT ILLNESS: Patient is a 64-year-old female presenting with generalized weakness. Patient reports she has been feeling generally unwell for the last few weeks after being admitted for sepsis. She states she has been having increasing pain in her bilateral lower abdomen. States that she has bilateral stents in her kidneys and has a Jose catheter in place. Reports that she has been having significant increased pain in her left flank. States that she has been having gross hematuria since stent placement. She reports feeling very weak and rundown and per reports she has been unable to do her activities of daily living. She states that she gets very lightheaded and dizzy and has palpitations when she stands up. Reports good oral intake. Denies any measured fevers or chills. Denies any focal numbness, tingling or weakness. Denies any headache or changes in vision. Reports an abdominal surgical history significant for cholecystectomy. Patient denies any chest pain or shortness of breath. She does report she has had a chronic nonproductive cough for the last 2 weeks. Denies any recent sick contact exposures. ROS: as above PHYSICAL EXAM: Constitutional: Patient appears in no acute distress. HENT: Head: Normocephalic and atraumatic. Eyes: EOMI, PERRL Mouth/Throat: Mucous membranes moist. Neck: Trachea midline. Neck supple. Cardiovascular: Tachycardic with irregularly irregular rhythm. No murmurs, rubs or gallops. Intact distal pulses. Pulmonary/Chest: No respiratory distress. Breath sounds clear and equal bilaterally. No wheezes or rales. Abdominal: Abdomen soft, no rebound or guarding. Diffuse tenderness to palpation. Musculoskeletal: No edema, tenderness or deformity noted. Skin: Warm and dry. No rash, erythema, pallor or cyanosis Psychiatric: Appropriate mood and affect for situation. Neurological: Alert and keenly responsive. CN II-XII grossly intact, moving all extremities equally and fully. MDM: - Vitals signs showed tachycardia. Patient's heart rate 127 bpm. - History obtained via patient. History as above. - Chronic conditions affecting care: paroxysmal Afib (not on anticoagulation due to fall risk and anemia); HTN; orthostatic hypotension (on midodrine); HLD; COPD; GERD; hypothyroidism - Differential diagnoses include, but are not limited to: UTI; pneumonia; viral syndrome; electrolyte abnormality; ACS; dysrhythmia; pyelonephritis - Order placed for continuous cardiac monitoring. At this time, monitor showed rate of 165 bpm with irregular rhythm, per my interpretation. - External medical records reviewed. Discharge summary dated was reviewed. Patient was admitted to the hospital for severe sepsis with acute renal dysfunction and hepatic dysfunction. - EKG image interpreted by myself showed atrial fibrillation. Rate tachycardic at 114 bpm. QT 312. No acute ischemic changes. - Laboratory workup interpreted by myself showed normal WBC with neutrophil predominance; thrombocytosis (plt [phone]); normal PT/INR; normal lactate; stable electrolytes; normal magnesium; normal troponin; elevated procalcitonin (2.46) - CXR image reviewed and interpreted by myself as needed for pneumonia, per my interpretation. - Blood cultures obtained - Patient empirically treated with meropenem, given her anaphylaxis allergy to penicillins - Given 4 mg IV zofran and 10 mg IV cardizem for her HR of 160 bpm. HR after cardizem down to 70-100 bpm irregular. - Given 1g IV tylenol and 500 cc NS. - CT abdomen/pelvis with IV contrast showed interval decrease in left hydronephrosis with mild hydronephrosis remaining. Noted to have interval improvement around the left renal pelvis. Bilateral ureteral stents noted. Mild wall thickening of the left renal collecting system which could be infection or reactive. - UA showed evidence of infection. Patient given IV meropenem. - Viral respiratory panel negative. - Discussion was had with case operator about patient's case and need for admission - Hospitalist consulted for admission - Patient admitted to [facility] Pediatric Hospitalist service for further evaluation and management. ASSESSMENT AND PLAN: Diagnosis: generalized weakness; Afib with RVR; elevated procalcitonin; acute UTI Plan: admit Past Med/Surg History Problem List (Updated 03/27/25 @ 20:01 by Marcie Serna MD) Acute UTI (urinary tract infection) (Acute) Elevated procalcitonin (Acute) Atrial fibrillation with rapid ventricular response (Acute) Generalized weakness (Acute) Rupture of kidney (Acute) LILLIANA (acute kidney injury) (Acute) Transaminitis (Acute) Sepsis (Acute) Atrial fibrillation with rapid ventricular response (Acute) Incontinence (Chronic) Adrenal nodule (Chronic) Renal cyst (Acute) Bilateral hydronephrosis (Chronic) Abdominal pain PSVT (paroxysmal supraventricular tachycardia) Elevated brain natriuretic peptide (BNP) level (Acute) Atrial tachycardia, paroxysmal Syncope (Acute) 01/2024 per records Dyspnea (Acute) Shortness of breath (Acute) PAF (paroxysmal atrial fibrillation) Sinus tachycardia (Acute) Palpitation (Acute) Hypokalemia Transaminitis Elevated LFTs (Acute) Encounter for pre-operative examination CYNTHIA (obstructive sleep apnea) (Chronic) Asthma, severe persistent (Chronic) Gastroparesis (Chronic) Celiac disease (Chronic) GERD (gastroesophageal reflux disease) (Chronic) IBS (irritable bowel syndrome) (Chronic) Hypothyroidism (Chronic) no current medication -- TSH normal without meds. CHARLES (iron deficiency anemia) (Chronic) ferrous sulfate QID. Dyslipidemia (Chronic) MRSA (methicillin resistant Staphylococcus aureus) (Chronic) 1999 dx nose septum wound 2019 dx in lungs Medical History NSVT (nonsustained ventricular tachycardia) - hx of nonsustained VT (isolated run on Zio without associated symptoms per cardio); intolerance to beta blockers Renal cyst per medical record, pt unsure Depression Port-A-Cath in place Bilateral hydronephrosis Chronic kidney disease stage 3 or 4 - follows with [facility] Nephrology Sari fish Hx of gastric ulcer Chronic gastritis GERD (gastroesophageal reflux disease) Migraines Chronic nausea Seasonal allergies Hypothyroidism Paroxysmal A-fib - follows with Dr. Aguirre, takes asa daily (not anticoagulated due to anemia and fall risk per cardio records ) - patient referred at last cardio appt 10/2024 for evaluation for left appendage occluder device Celiac disease Hx of renal calculi no surgical intervention needed Poor intravenous access PSVT (paroxysmal supraventricular tachycardia) - no current issues per patient Hx MRSA infection 1999 dx nose septum wound 2019 dx in lungs Gastroparesis IBS (irritable bowel syndrome) Dyslipidemia CHARLES (iron deficiency anemia) History of COVID-19 has had ~5 times - last had ~early 2023, no hospitalization. Orthostatic hypotension Follows with [facility] cardiology On midodrine Chronic anemia frequent iron and blood transfusions. Hypertension hx --> pt reports she is being treated for hypotension Adrenal cyst monitoring unchanged per 2024 imaging; benign per PCP Chronic back pain Degenerative disc disease Osteoarthritis Anxiety Mitral valve prolapse follows with Dr Aguirre Narcolepsy Chronic obstructive pulmonary disease uncontrolled, uses inhalers daily Sleep apnea CPAP + 2lpm of oxygen Surgical History H/O insertion of central venous access port power port placed due to poor IV access + frequent blood draws/iron/blood transfusions S/P spinal fusion C1 through L3 or L4 (~2021 at [facility]) History of cardioversion ~2019 History of cardiac radiofrequency ablation ~2014 [facility] [place] History of bronchoscopy in the S/P trigger finger release right hand History of ankle surgery bilateral ankle repair with hardware H/O hand surgery with hardware (left) S/P GLENNY-BSO S/P surgery on nasal septum "collapsed septum" s/p post op infection that "ate away the septum" S/P nasal surgery multiple Hx of cholecystectomy History of arthroscopic knee surgery left Hx of cardiac cath "2009 - normal coronaries" (pt denies) History of esophagogastroduodenoscopy (EGD) History of colonoscopy History of dilatation and curettage Family History Other No family history of adverse response to anesthesia Social History Smoking Status: Never smoker Second Hand Exposure: No; Do You Dip or Chew Tobacco: No; Hx Alcohol Use: No Hx Substance Use: No Preferred Language: Malagasy Communication Ability: Effective Key Account Executive Required: No Beliefs That Will Affect Care: None marital status: Current Living Situation: Spouse and Other Current Living Situation Comment: 4yr old twins at home Feels Safe at Home: Yes Assistive Devices: CPAP Allergies Allergies Allergy/AdvReac Type Severity Reaction Status Date / Time bee venom protein (honey bee) Allergy Severe ANAPHYLAXIS Verified 03/27/25 18:41 coconut Allergy Severe RASH; SOB Verified 03/27/25 18:41 gluten Allergy Severe CELIAC'S Verified 03/27/25 18:41 latex Allergy Severe Anaphylaxis Verified 03/27/25 18:41 Penicillins Allergy Severe Anaphylaxis Verified 03/27/25 18:41 Sulfa (Sulfonamide Allergy Severe Anaphylaxis Verified 03/27/25 18:41 Antibiotics) ROBER Inhibitors Allergy Intermediate RASH/TACHYC Verified 03/27/25 18:41 ARDIA cefaclor Allergy Intermediate CECLOR--RASH/UPSET Verified 03/27/25 18:41 STOMACH egg Allergy Intermediate RASH & Verified 03/27/25 18:41 Bloating Influenza Virus Vaccines Allergy Intermediate rash and Verified 03/27/25 18:41 bloating tetracycline Allergy Intermediate NAUSEA/VOMI Verified 03/27/25 18:41 TING/RASH Quinolones Allergy Unknown ALLERGY TO Verified 03/27/25 18:41 AVELOX ,CAN TAKE CIPRO OR LEVAQUIN W/O RXN Beta-Blockers AdvReac Intermediate intolerance Verified 03/27/25 18:41 (Beta-Adrenergic Bloc as per records lactose AdvReac Intermediate BLOATING; Verified 03/27/25 18:41 DIARRHEA; VOMITING Home Meds Home Medications Medication Instructions Recorded Confirmed aspirin 81 mg tablet,delayed 81 mg PO QAM 09/14/24 03/27/25 release atorvastatin 20 mg tablet 20 mg PO HS 09/14/24 03/27/25 cimetidine 400 mg tablet 400 mg PO BID 09/14/24 03/27/25 fexofenadine 180 mg tablet 180 mg PO QAM 09/14/24 03/27/25 fluticasone 250 mcg-salmeterol 50 1 inh inhalation BID 09/14/24 03/27/25 mcg/dose blistr powdr for inhalation (Advair Diskus) folic acid 1 mg tablet 1 mg PO BID 09/14/24 03/27/25 hyoscyamine sulfate 0.375 mg 0.375 mg PO Q6H PRN Abdominal Pain 09/14/24 03/27/25 tablet,extended release,12 hr ipratropium 20 mcg-albuterol 100 1 puff inhalation QID PRN 09/14/24 03/27/25 mcg/actuation mist for inhalation Shortness Of Breath Or Wheezing (Combivent Respimat) levothyroxine 100 mcg capsule 100 mcg PO QAM 09/14/24 03/27/25 montelukast 10 mg tablet 10 mg PO HS 09/14/24 03/27/25 multivitamin 1 tab PO QAM 09/14/24 03/27/25 rabeprazole 20 mg tablet,delayed 40 mg PO BID 09/14/24 03/27/25 release (AcipHex) sucralfate 1 gram tablet 1 g PO ACHS 09/14/24 03/27/25 topiramate 100 mg tablet 100 mg PO BID 09/14/24 03/27/25 CPAP Machine 09/15/24 03/11/25 amitriptyline 75 mg tablet 75 mg PO HS 09/15/24 03/27/25 azelastine 137 mcg (0.1 %) nasal 1 spray intranasal BID 09/15/24 03/27/25 spray levalbuterol HCl 1.25 mg/3 mL 1.25 mg inhalation Q6H 09/15/24 03/27/25 solution for nebulization mometasone 50 mcg/actuation nasal 2 spray intranasal BID 09/15/24 03/27/25 spray ondansetron 4 mg disintegrating 4 mg PO Q8H PRN Nausea And Vomiting 09/15/24 03/27/25 tablet polyethylene glycol 3350 17 gram 17 g PO QAM 09/15/24 03/27/25 oral powder packet (Miralax) epinephrine 0.3 mg/0.3 mL 0.3 mg subcut UD PRN Anaphylaxis 03/11/25 03/27/25 injection, auto-injector Previous Rx's Medication Instructions Recorded oxybutynin chloride 5 mg tablet 5 mg PO Q8H PRN bladder spasms #9 03/08/25 tabs midodrine 5 mg tablet 5 mg PO TID #90 tabs 03/18/25 verapamil 120 mg tablet,extended 120 mg PO DAILY #30 tabs 03/18/25 release Results & Data (ED) Vital Signs Vital Signs - 24 hr 03/27/25 15:58 03/27/25 16:54 Temperature 36.6 C Temperature Source Temporal Artery Scan Pulse Rate 78 97 H Respiratory Rate 18 Respiratory Effort / Characteristics Non-Labored Spontaneous Respiratory Depth Normal Respiratory Pattern Regular Blood Pressure 137/94 Blood Pressure Mean 108 Pulse Oximetry 98 Oxygen Delivery Method Room Air Sepsis Recent Fever Within 48 Hours No Sepsis New/Unexplained Change in Mental Status No Sepsis Action Taken by Nursing No Action Required Laboratory Data 03/27/25 16:31 03/27/25 16:31 Lab Results 03/27/25 03/27/25 03/27/25 Range/Units 16:31 17:28 18:17 WBC 10.51 (4.8-10.8) K/ul RBC 4.05 L (4.20-5.40) M/uL Hgb 12.4 (12.0-16.0) g/dl Hct 40.1 (37.0-47.0) % MCV 99.0 (80.0-100.0) fL MCH 30.6 (25.0-34.0) pg MCHC 30.9 L (32.0-36.0) g/dL RDW Std Deviation 58.8 H (36.4-46.3) fL RDW Coeff of Reginaldo 16.2 H (11.5-14.5) % Plt Count 507 H (130-400) K/uL MPV 9.6 (9.4-12.4) fL Immature Gran % (Auto) 0.6 % Neut % (Auto) 72.0 % Lymph % (Auto) 19.3 % [place] % (Auto) 6.1 % Eos % (Auto) 1.5 % Baso % (Auto) 0.5 % Neut # (Auto) 7.57 H (1.40-6.50) K/uL Lymph # (Auto) 2.03 (1.20-3.40) K/uL [place] # (Auto) 0.64 H (0.11-0.59) K/uL Eos # (Auto) 0.16 (0.00-0.50) K/uL Baso # (Auto) 0.05 (0.00-0.20) K/uL Immature Gran # (Auto) 0.06 (0.01-0.20) K/uL PT 12.0 (9.0-12.0) Seconds INR 1.1 (0.9-1.1) Sodium 143 (136-145) mmol/L Potassium 4.0 (3.5-5.1) mmol/L Chloride 114 H (98-107) mmol/L Carbon Dioxide 20 L (21-32) mmol/L Anion Gap 9 (3-11) BUN 19 (6-23) mg/dl Creatinine 0.91 (0.6-1.2) mg/dl Est Cr Clr Drug Dosing 49.8 ml/min eGFR 70.89 BUN/Creatinine Ratio 20.9 H (10-20) Glucose 91 (70-99(Fasting)) mg/dl Lactate 1.0 (0.4-2.0) mmol/L Calcium 9.6 (8.6-10.3) mg/dl Magnesium 1.8 (1.7-2.4) mg/dl Total Bilirubin 0.5 (0.2-1.0) mg/dl AST 20 (13-39) U/L ALT 110 H (7-52) U/L Alkaline Phosphatase 626 H (34-104) U/L Troponin I High Sens 13.1 (0-14) pg/ml Total Protein 6.9 (6.0-8.3) gm/dl Albumin 3.6 (3.4-5.0) gm/dl Globulin 3.3 (2.5-4.0) gm/dl Albumin/Globulin Ratio 1.1 (0.9-2) Procalcitonin 2.46 H (0-0.5) ng/ml Urine Color Urine Appearance (Clear) Urine pH (4.5-7.5) Ur Specific [place] (1.000-1.030) Urine Protein (Negative) Urine Glucose (UA) (Negative) Urine Ketones (Negative) Urine Blood (Negative) Urine Nitrite (Negative) Urine Bilirubin (Negative) Urine Urobilinogen (Negative) Ur Leukocyte Esterase (Negative) Urine WBC (Auto) (0-5) /hpf Urine RBC (Auto) (0-2) /hpf U Hyaline Cast (Auto) (0-2) /lpf U Epithel Cells (Auto) (0-2) /hpf Urine Bacteria (Auto) (None Seen) Urine Mucus (None Prsent) Urine Comment Adenovirus (PCR) Not Detected (NotDetected) B. pertussis DNA (PCR) Not Detected (NotDetected) B.parapertussis DNA PCR Not Detected (NotDetected) C. pneumoniae DNA (PCR) Not Detected (NotDetected) Coronavirus OC43 (PCR) Not Detected (NotDetected) Coronavirus HKU1 (PCR) Not Detected (NotDetected) Coronavirus 229E (PCR) Not Detected (NotDetected) SARS-CoV-2 (PCR) Not Detected (NotDetected) Coronavirus NL63 (PCR) Not Detected (NotDetected) Human Metapneumovir PCR Not Detected (NotDetected) Influenza Type A (PCR) Not Detected (NotDetected) Influenza Type B (PCR) Not Detected (NotDetected) M. pneumoniae (PCR) Not Detected (NotDetected) Parainfluenza 1 (PCR) Not Detected (NotDetected) Parainfluenza 2 (PCR) Not Detected (NotDetected) Parainfluenza 3 (PCR) Not Detected (NotDetected) Parainfluenza 4 (PCR) Not Detected (NotDetected) RSV (PCR) Not Detected (NotDetected) Entero/Rhino (PCR) Not Detected (NotDetected) 03/27/25 Range/Units 18:49 WBC (4.8-10.8) K/ul RBC (4.20-5.40) M/uL Hgb (12.0-16.0) g/dl Hct (37.0-47.0) % MCV (80.0-100.0) fL MCH (25.0-34.0) pg MCHC (32.0-36.0) g/dL RDW Std Deviation (36.4-46.3) fL RDW Coeff of Reginaldo (11.5-14.5) % Plt Count (130-400) K/uL MPV (9.4-12.4) fL Immature Gran % (Auto) % Neut % (Auto) % Lymph % (Auto) % [place] % (Auto) % Eos % (Auto) % Baso % (Auto) % Neut # (Auto) (1.40-6.50) K/uL Lymph # (Auto) (1.20-3.40) K/uL [place] # (Auto) (0.11-0.59) K/uL Eos # (Auto) (0.00-0.50) K/uL Baso # (Auto) (0.00-0.20) K/uL Immature Gran # (Auto) (0.01-0.20) K/uL PT (9.0-12.0) Seconds INR (0.9-1.1) Sodium (136-145) mmol/L Potassium (3.5-5.1) mmol/L Chloride (98-107) mmol/L Carbon Dioxide (21-32) mmol/L Anion Gap (3-11) BUN (6-23) mg/dl Creatinine (0.6-1.2) mg/dl Est Cr Clr Drug Dosing ml/min eGFR BUN/Creatinine Ratio (10-20) Glucose (70-99(Fasting)) mg/dl Lactate (0.4-2.0) mmol/L Calcium (8.6-10.3) mg/dl Magnesium (1.7-2.4) mg/dl Total Bilirubin (0.2-1.0) mg/dl AST (13-39) U/L ALT (7-52) U/L Alkaline Phosphatase (34-104) U/L Troponin I High Sens (0-14) pg/ml Total Protein (6.0-8.3) gm/dl Albumin (3.4-5.0) gm/dl Globulin (2.5-4.0) gm/dl Albumin/Globulin Ratio (0.9-2) Procalcitonin (0-0.5) ng/ml Urine Color Yellow Urine Appearance Cloudy A (Clear) Urine pH 5.5 (4.5-7.5) Ur Specific [place]y > 1.045 H (1.000-1.030) Urine Protein 3+ H (Negative) Urine Glucose (UA) Negative (Negative) Urine Ketones Negative (Negative) Urine Blood 3+ H (Negative) Urine Nitrite Negative (Negative) Urine Bilirubin Negative (Negative) Urine Urobilinogen Negative (Negative) Ur Leukocyte Esterase 1+ H (Negative) Urine WBC (Auto) >50 H (0-5) /hpf Urine RBC (Auto) >20 H (0-2) /hpf U Hyaline Cast (Auto) >20 H (0-2) /lpf U Epithel Cells (Auto) 0-2 (0-2) /hpf Urine Bacteria (Auto) 1+ H (None Seen) Urine Mucus Present A (None Prsent) Urine Comment Adenovirus (PCR) (NotDetected) B. pertussis DNA (PCR) (NotDetected) B.parapertussis DNA PCR (NotDetected) C. pneumoniae DNA (PCR) (NotDetected) Coronavirus OC43 (PCR) (NotDetected) Coronavirus HKU1 (PCR) (NotDetected) Coronavirus 229E (PCR) (NotDetected) SARS-CoV-2 (PCR) (NotDetected) Coronavirus NL63 (PCR) (NotDetected) Human Metapneumovir PCR (NotDetected) Influenza Type A (PCR) (NotDetected) Influenza Type B (PCR) (NotDetected) M. pneumoniae (PCR) (NotDetected) Parainfluenza 1 (PCR) (NotDetected) Parainfluenza 2 (PCR) (NotDetected) Parainfluenza 3 (PCR) (NotDetected) Parainfluenza 4 (PCR) (NotDetected) RSV (PCR) (NotDetected) Entero/Rhino (PCR) (NotDetected) Administered Medications Meropenem 500 mg/ Syringe 10 mls @ 2 mls/min IV Q8H JAYSHREE; Protocol Stop: 03/29/25 17:29 Last Admin: 03/27/25 18:43 Dose: 2 mls/min Documented By: LOLIS Discontinued Medications Diltiazem HCl (Diltiazem Hcl 5 Mg/Ml 5 Ml Vial) 10 mg IV NOW STA Stop: 03/27/25 17:05 Last Admin: 03/27/25 17:21 Dose: 10 mg Documented By: MOI Co-signed By: SONNY Acetaminophen (Ofirmev) 1,000 mg in 100 mls @ 400 mls/hr IV NOW STA Stop: 03/27/25 17:18 Last Infusion: 03/27/25 17:53 Dose: Infused Documented By: Admin: 03/27/25 17:20 Dose: 400 mls/hr Documented By: ANT Sodium Chloride (Nss) 500 mls @ 999 mls/hr IV .Q31M ONE Stop: 03/27/25 17:34 Last Infusion: 03/27/25 19:11 Dose: Infused Documented By: Admin: 03/27/25 17:21 Dose: 999 mls/hr Documented By: ANT Ioversol (Optiray 320 100ml) 93 ml IV ONCE ONE Stop: 03/27/25 17:59 Last Admin: 03/27/25 17:58 Dose: 93 ml Documented By: VIDAL Morphine Sulfate (Morphine Sulfate 2 Mg/Ml Carp) 2 mg IV NOW STA Stop: 03/27/25 18:48 Last Admin: 03/27/25 18:51 Dose: 2 mg Documented By: LOLIS Ondansetron HCl (Ondansetron Inj 2 Mg/Ml 2 Ml Vial) 4 mg IV NOW STA Stop: 03/27/25 17:12 Last Admin: 03/27/25 17:20 Dose: 4 mg Documented By: ANT Imaging Data Radiologist's Impression: Abdomen/Pelvis CT 03/27/25 17:04 Clinical History: Gross hematuria Technique: Axial computed tomography images were obtained of the abdomen and pelvis after the administration of intravenous contrast. Comparison is made to the prior examination dated 03/11/2025. Findings: The liver is overall of normal size, attenuation, and contour with no sign of cirrhosis or significant fatty infiltration. No liver mass lesion is seen. The portal vein is patent. The gallbladder has been removed. There is mild bile duct dilatation that is likely due to the postcholecystectomy state The spleen is of normal size. No focal splenic lesion is evident. The pancreas appears normal with no sign of acute or chronic pancreatitis and no mass lesion noted. The pancreatic duct is of normal caliber. There is an unchanged 3 cm left adrenal nodule, likely a benign adenoma. The right adrenal gland appears normal Bilateral ureteral stents are again seen. There is mild left hydronephrosis, less severe than before. There has been interval decrease in fluid and soft tissue stranding around the left renal pelvis and left ureteropelvic junction. The previously seen air in this area has resolved. There is apparent mild wall thickening of the left renal collecting system and left renal pelvis. No definite renal mass lesion is identified. There are small bilateral renal cyst, measuring up to 1.2 cm. The aorta is of normal caliber. No abdominal adenopathy is seen. The stomach appears normal. There is no sign of small bowel obstruction. The colon appears unremarkable. The appendix appears normal also. No free intraperitoneal fluid or air is identified. The bladder is decompressed, containing a Jose catheter. The iliac arteries are of normal caliber. No pelvic adenopathy is noted. The uterus has been removed The lungs bases appear clear. Mild thoracolumbar degenerative disc disease is seen. No fracture is identified. No focal osseous lesion is seen Impression: 1. Interval decrease in left hydronephrosis with mild hydronephrosis remaining 2. Interval improvement in fluid and inflammatory change around the left renal pelvis and left UPJ, which could be due to improving infection, resolved perforation, or other improving inflammation 3.. Mild wall thickening of the left renal collecting system. While this could be reactive, infection is also possible. There is no clear pyelonephritis 4. Bilateral renal cysts 5. Unchanged bilateral ureteral stents 6. Unchanged 3 cm left adrenal lesion, likely a benign adenoma ACT 112: Positive. There are findings on this exam that require communication between the performing entity and the patient following Patient Test Result Information Act ([place] ACT 112) guidelines. Electronically signed by Darinel Hilliard 03-27-2025 6:34 PM Chest X-Ray 03/27/25 17:04 Chest radiograph, one view History: Cough Comparison: 03/12/2025 Findings: Single AP view of the chest performed. No focal consolidation or pleural effusion. No pneumothorax. Right chest wall port with catheter tip at the mid SVC. The cardiomediastinal silhouette is within normal limits. Normal pulmonary vascularity. No evidence for lymphadenopathy. No visualized bony or soft tissue abnormality. There are chronic left-sided rib fracture deformities. Impression: Normal chest radiograph Electronically signed by Lai Gimenez 03-27-2025 5:48 PM Discharge Plan Visit Data Chief Complaint: Hematuria Stated Complaint: BLOOD IN URINE PAIN DIZZINESS ED Provider: Marcie Serna Discharge Problem: Generalized weakness, Atrial fibrillation with rapid ventricular response, Elevated procalcitonin, Acute UTI (urinary tract infection) Condition: Fair Forms Stand Alone Forms: [email or web address] Prescriptions Prescriptions: No Action fluticasone propion-salmeterol [Advair Diskus] 250-50 mcg/dose Blister With Device 1 inh INHALATION BID atorvastatin 20 mg Tablet 20 mg PO HS cimetidine 400 mg Tablet 400 mg PO BID Rx Instructions: administer with meals hyoscyamine sulfate 0.375 mg Tablet Extended Release 12 Hr 0.375 mg PO Q6H PRN (Reason: Abdominal Pain) folic acid 1 mg Tablet 1 mg PO BID montelukast 10 mg Tablet 10 mg PO HS levothyroxine 100 mcg Capsule 100 mcg PO QAM Combivent Respimat 20-100 mcg/actuation Mist 1 puff INHALATION QID PRN (Reason: Shortness Of Breath Or Wheezing) Rx Instructions: space evenly during waking hours rabeprazole [AcipHex] 20 mg Tablet,Delayed Release (Dr/Ec) 40 mg PO BID sucralfate 1 gram Tablet 1 g PO ACHS fexofenadine 180 mg Tablet 180 mg PO QAM aspirin 81 mg Tablet,Delayed Release (Dr/Ec) 81 mg PO QAM topiramate 100 mg Tablet 100 mg PO BID multivitamin Tablet 1 tab PO QAM levalbuterol HCl 1.25 mg/3 mL Solution For Nebulization 1.25 mg INHALATION Q6H amitriptyline 75 mg Tablet 75 mg PO HS ondansetron 4 mg Tablet,Disintegrating 4 mg PO Q8H PRN (Reason: Nausea And Vomiting) polyethylene glycol 3350 [Miralax] 17 gram Powder In Packet 17 g PO QAM mometasone 50 mcg/actuation [place],Non-Aerosol 2 spray INTRANASAL BID Rx Instructions: administer into each nostril azelastine 137 mcg (0.1 %) [place],Non-Aerosol 1 spray INTRANASAL BID Rx Instructions: administer into each nostril (DME) CPAP Machine Misc Rx Instructions: 1 LPM bled through CPAP during hours of sleep oxybutynin chloride 5 mg tablet 5 mg PO Q8H PRN (Reason: bladder spasms) Qty: 9 0RF epinephrine 0.3 mg/0.3 mL auto-injector 0.3 mg subcut UD PRN (Reason: Anaphylaxis) midodrine 5 mg tablet 5 mg PO TID Qty: 90 0RF Rx Instructions: do not give last dose of day after 6PM or within 4 hrs of bedtime verapamil 120 mg Tablet Extended Release 120 mg PO DAILY Qty: 30 0RF Referrals Referrals: Vicki Watson MD [Primary Care Provider] -
[2025-03-27 17:12] LABS: Alanine Aminotransferase 110.0 U/L (7-52); Albumin Globulin Ratio 1.1 (0.9-2); Albumin Level 3.6 gm/dl (3.4-5.0); Alkaline Phosphatase 626.0 U/L (34-104); Anion Gap 9.0 (3-11); Bilirubin,Total 0.5 mg/dl (0.2-1.0); Blood Urea Nitrogen 19.0 mg/dl (6-23); Calcium 9.6 mg/dl (8.6-10.3); Carbon Dioxide 20.0 mmol/L (21-32); Chloride 114.0 mmol/L (98-107); Creatinine Clr Calc Pharmacy 49.8 ml/min; Globulin 3.3 gm/dl (2.5-4.0); Glucose 91.0 mg/dl (70-99(Fasting)); Magnesium 1.8 mg/dl (1.7-2.4); Potassium 4.0 mmol/L (3.5-5.1); Sodium 143.0 mmol/L (136-145); Total Protein 6.9 gm/dl (6.0-8.3)
[2025-03-27 17:20] LABS: INR 1.1 (0.9-1.1); Prothrombin Time 12.0 Seconds (9.0-12.0)
[2025-03-27] MEDS: ONDANSETRON INJ 2 MG/ML 2 ML VIAL IV STA (17:20)
[2025-03-27] MEDS: ACETAMINOPHEN 1,000 MG/100 ML VIAL IV STA (17:20)
[2025-03-27] MEDS: SODIUM CHLORIDE 0.9% 500 ML IV ONE (17:21)
--- NOTE | 2025-03-27 17:49 | XRay Report ---
Chest radiograph, one view History: Cough Comparison: 03/12/2025 Findings: Single AP view of the chest performed. No focal consolidation or pleural effusion. No pneumothorax. Right chest wall port with catheter tip at the mid SVC. The cardiomediastinal silhouette is within normal limits. Normal pulmonary vascularity. No evidence for lymphadenopathy. No visualized bony or soft tissue abnormality. There are chronic left-sided rib fracture deformities. Impression: Normal chest radiograph Electronically signed by Lai Gimenez 03-27-2025 5:48 PM
[2025-03-27] MEDS: OPTIRAY 320 100ml IV ONE (17:58)
--- NOTE | 2025-03-27 18:34 | CT Scan Report ---
Clinical History: Gross hematuria Technique: Axial computed tomography images were obtained of the abdomen and pelvis after the administration of intravenous contrast. Comparison is made to the prior examination dated 03/11/2025. Findings: The liver is overall of normal size, attenuation, and contour with no sign of cirrhosis or significant fatty infiltration. No liver mass lesion is seen. The portal vein is patent. The gallbladder has been removed. There is mild bile duct dilatation that is likely due to the postcholecystectomy state The spleen is of normal size. No focal splenic lesion is evident. The pancreas appears normal with no sign of acute or chronic pancreatitis and no mass lesion noted. The pancreatic duct is of normal caliber. There is an unchanged 3 cm left adrenal nodule, likely a benign adenoma. The right adrenal gland appears normal Bilateral ureteral stents are again seen. There is mild left hydronephrosis, less severe than before. There has been interval decrease in fluid and soft tissue stranding around the left renal pelvis and left ureteropelvic junction. The previously seen air in this area has resolved. There is apparent mild wall thickening of the left renal collecting system and left renal pelvis. No definite renal mass lesion is identified. There are small bilateral renal cyst, measuring up to 1.2 cm. The aorta is of normal caliber. No abdominal adenopathy is seen. The stomach appears normal. There is no sign of small bowel obstruction. The colon appears unremarkable. The appendix appears normal also. No free intraperitoneal fluid or air is identified. The bladder is decompressed, containing a Jose catheter. The iliac arteries are of normal caliber. No pelvic adenopathy is noted. The uterus has been removed The lungs bases appear clear. Mild thoracolumbar degenerative disc disease is seen. No fracture is identified. No focal osseous lesion is seen Impression: 1. Interval decrease in left hydronephrosis with mild hydronephrosis remaining 2. Interval improvement in fluid and inflammatory change around the left renal pelvis and left UPJ, which could be due to improving infection, resolved perforation, or other improving inflammation 3.. Mild wall thickening of the left renal collecting system. While this could be reactive, infection is also possible. There is no clear pyelonephritis 4. Bilateral renal cysts 5. Unchanged bilateral ureteral stents 6. Unchanged 3 cm left adrenal lesion, likely a benign adenoma ACT 112: Positive. There are findings on this exam that require communication between the performing entity and the patient following Patient Test Result Information Act ([place] ACT 112) guidelines. Electronically signed by Darinel Hilliard 03-27-2025 6:34 PM
[2025-03-27] MEDS: MEROPENEM 500 MG in SYRINGE 0 ML IV SCH (18:43)
[2025-03-27] MEDS: MoRPHine SULFATE 2 MG/ML CARP IV STA (18:51)
[2025-03-27 19:13] LABS: Appearance Urine Cloudy (Clear); Bacteria Urine Automated 1+ (None Seen); Cast Urine Automated >20 /lpf (0-2); Epithelial Cell Urine Auto 0-2 /hpf (0-2); Glucose Urine UA Negative (Negative); RBC Urine Automated >20 /hpf (0-2); WBC Urine Automated >50 /hpf (0-5)
[2025-03-27 19:33] LABS: Chlamydia pneumoniae PCR Not Detected (NotDetected); Coronavirus 229E PCR Not Detected (NotDetected); Coronavirus CoV-2 (COVID19)PCR Not Detected (NotDetected); Coronavirus HKU1 PCR Not Detected (NotDetected); Coronavirus NL63 PCR Not Detected (NotDetected); Coronavirus OC43PCR Not Detected (NotDetected); Human Metapneumovirus PCR Not Detected (NotDetected); Parainfluenza Virus 1 PCR Not Detected (NotDetected); Parainfluenza Virus 2 PCR Not Detected (NotDetected); Parainfluenza Virus 3 PCR Not Detected (NotDetected); Parainfluenza Virus 4 PCR Not Detected (NotDetected); Respiratory Syncytial VirusPCR Not Detected (NotDetected); Rhinovirus/Enterovirus PCR Not Detected (NotDetected)
[2025-03-27 20:21] LABS: Hematocrit (blood only) 36.8 % (37.0-47.0); Hemoglobin 11.4 g/dl (12.0-16.0)
[2025-03-27] MEDS ORDERED: ACETAMINOPHEN 325 MG TAB PO PRN (21:04)
[2025-03-27] MEDS: KETOROLAC TROMETHAMINE 15 MG/ML VIAL IV ONE (21:13)
[2025-03-27] MEDS: MAGNESIUM SULFATE / D5W 1 GM/100 ML BAG IV ONE (21:15)
--- NOTE | 2025-03-27 21:15 | History & Physical Report ---
Date of Service March 27, 2025 Assessment & Plan (1) Atrial fibrillation with rapid ventricular response: Plan: Assessment and plan below following discussion of case with ED provider and reviewing patient history/pertinent normal/abnormal diagnostic test results. Rapid atrial fibrillation (Not on anticoagulation due to fall risk/anemia as per records) Secondary to recurrent complicated UTI, possible sepsis History hydronephrosis, bilateral ureteral stents Diarrhea rule out C. difficile given recent antibiotic Rx history idiopathic cardiac arrest/VT orthostatic hypotension on midodrine hyperlipidemia/statin intolerance asthma/COPD, chronic cough symptoms as per patient CYNTHIA/narcolepsy on CPAP hypothyroidism, euthyroid as of recent outpatient TSH chronic anemia, hemoglobin better than baseline PCU Titrate verapamil, may need to titrate midodrine as well to support blood pressure. CS, ceftriaxone Urology consult re: recurrent UTI, history stent, hydronephrosis N.p.o. after midnight in anticipation of procedure continue verapamil and titr ate as needed Stool C. difficile DVT prophylaxis SCDs Re: Hematuria Full code Text document was generated using [employer] voice recognition software. It may contain grammatical or spelling errors. Kindly contact undersigned for clarification of any documentation item in question. . History of Present Illness Chief Complaint: Hematuria, abdominal pain, A-fib Primary Care Provider: Vicki Watson MD History obtained from patient and records. Medical history is significant for history idiopathic cardiac arrest/VT, PAT, hypertension, PAF (not on anticoagulation due to fall risk and anemia as per records), orthostatic hypotension on midodrine, hyperlipidemia/statin intolerance, asthma/COPD, CYNTHIA/narcolepsy on CPAP, urolithiasis, hydronephrosis, celiac disease, GERD, irritable bowel syndrome, pancreas divisum, left adrenal tumor as per records, hypothyroidism, chronic anemia (baseline hemoglobin of 11), RLS, endometriosis/PCOS, hx MRSA. Recent confinement 2 weeks ago for recurrent A-fib secondary to severe sepsis secondary to emphysematous pyelonephritis. No growth on cultures. Patient midodrine titrated upwards and verapamil dose decreased on discharge. Patient discharged with Jose catheter. Patient seen at PCPs office on follow-up visit 4 days ago. Patient still with dysuria symptoms. Outpatient UA WBC esterase positive. Hematuria with worsening achy lower abdominal pain over the last 3 days. Diarrhea symptoms occasionally bloody as per patient. No chest pain or unusual shortness of breath. Dry cough symptoms which is a sign for her that she is in A-fib. Patient compliant with home medications. Rapid A-fib noted at the ER, heart rate 140s. IV Cardizem and meropenem administered at the ER. MEDICAL HISTORY: As above. SURGICAL HISTORY: TAHBSO, cholecystectomy, appendectomy, ankle surgery, knee surgery, nasal reconstruction, sinus surgery, finger tendon sheath surgery, urologic procedure, laminectomy/spine surgery FAMILY HISTORY: Family history of unknown. Patient is adopted. PERSONAL/SOCIAL HISTORY: Nonsmoker. No chronic intake of inatke of ETOH. 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 Allergies Allergy/AdvReac Type Severity Reaction Status Date / Time bee venom protein (honey bee) Allergy Severe ANAPHYLAXIS Verified 03/27/25 18:41 coconut Allergy Severe RASH; SOB Verified 03/27/25 18:41 gluten Allergy Severe CELIAC'S Verified 03/27/25 18:41 latex Allergy Severe Anaphylaxis Verified 03/27/25 18:41 Penicillins Allergy Severe Anaphylaxis Verified 03/27/25 18:41 Sulfa (Sulfonamide Allergy Severe Anaphylaxis Verified 03/27/25 18:41 Antibiotics) ROBER Inhibitors Allergy Intermediate RASH/TACHYC Verified 03/27/25 18:41 ARDIA cefaclor Allergy Intermediate CECLOR--RASH/UPSET Verified 03/27/25 18:41 STOMACH egg Allergy Intermediate RASH & Verified 03/27/25 18:41 Bloating Influenza Virus Vaccines Allergy Intermediate rash and Verified 03/27/25 18:41 bloating tetracycline Allergy Intermediate NAUSEA/VOMI Verified 03/27/25 18:41 TING/RASH Quinolones Allergy Unknown ALLERGY TO Verified 03/27/25 18:41 AVELOX ,CAN TAKE CIPRO OR LEVAQUIN W/O RXN Beta-Blockers AdvReac Intermediate intolerance Verified 03/27/25 18:41 (Beta-Adrenergic Bloc as per records lactose AdvReac Intermediate BLOATING; Verified 03/27/25 18:41 DIARRHEA; VOMITING Home Medications Medication Instructions Recorded Confirmed Type aspirin 81 mg tablet,delayed 81 mg PO QAM 09/14/24 03/27/25 History release atorvastatin 20 mg tablet 20 mg PO HS 09/14/24 03/27/25 History cimetidine 400 mg tablet 400 mg PO BID 09/14/24 03/27/25 History fexofenadine 180 mg tablet 180 mg PO QAM 09/14/24 03/27/25 History fluticasone 250 mcg-salmeterol 50 1 inh inhalation BID 09/14/24 03/27/25 History mcg/dose blistr powdr for inhalation (Advair Diskus) folic acid 1 mg tablet 1 mg PO BID 09/14/24 03/27/25 History hyoscyamine sulfate 0.375 mg 0.375 mg PO Q6H PRN Abdominal Pain 09/14/24 History tablet,extended release,12 hr ipratropium 20 mcg-albuterol 100 1 puff inhalation QID PRN 09/14/24 03/27/25 History mcg/actuation mist for inhalation Shortness Of Breath Or Wheezing (Combivent Respimat) levothyroxine 100 mcg capsule 100 mcg PO QAM 09/14/24 03/27/25 History montelukast 10 mg tablet 10 mg PO HS 09/14/24 03/27/25 History multivitamin 1 tab PO QAM 09/14/24 03/27/25 History rabeprazole 20 mg tablet,delayed 40 mg PO BID 09/14/24 03/27/25 History release (AcipHex) sucralfate 1 gram tablet 1 g PO ACHS 09/14/24 03/27/25 History topiramate 100 mg tablet 100 mg PO BID 09/14/24 03/27/25 History CPAP Machine 09/15/24 03/11/25 History amitriptyline 75 mg tablet 75 mg PO HS 09/15/24 03/27/25 History azelastine 137 mcg (0.1 %) nasal 1 spray intranasal BID 09/15/24 03/27/25 History spray levalbuterol HCl 1.25 mg/3 mL 1.25 mg inhalation Q6H 09/15/24 03/27/25 History solution for nebulization mometasone 50 mcg/actuation nasal 2 spray intranasal BID 09/15/24 03/27/25 History spray ondansetron 4 mg disintegrating 4 mg PO Q8H PRN Nausea And Vomiting 09/15/24 03/27/25 History tablet polyethylene glycol 3350 17 gram 17 g PO QAM 09/15/24 03/27/25 History oral powder packet (Miralax) oxybutynin chloride 5 mg tablet 5 mg PO Q8H PRN bladder spasms #9 03/08/25 03/27/25 Rx tabs epinephrine 0.3 mg/0.3 mL 0.3 mg subcut UD PRN Anaphylaxis 03/11/25 03/27/25 History injection, auto-injector midodrine 5 mg tablet 5 mg PO TID #90 tabs 03/18/25 03/27/25 Rx verapamil 120 mg tablet,extended 120 mg PO DAILY #30 tabs 03/18/25 03/27/25 Rx release Past Med/Surg History Problem List Acute UTI (urinary tract infection) (Acute) Elevated procalcitonin (Acute) Atrial fibrillation with rapid ventricular response (Acute) Generalized weakness (Acute) Rupture of kidney (Acute) LILLIANA (acute kidney injury) (Acute) Transaminitis (Acute) Sepsis (Acute) Atrial fibrillation with rapid ventricular response (Acute) Incontinence (Chronic) Adrenal nodule (Chronic) Renal cyst (Acute) Bilateral hydronephrosis (Chronic) Abdominal pain PSVT (paroxysmal supraventricular tachycardia) Elevated brain natriuretic peptide (BNP) level (Acute) Atrial tachycardia, paroxysmal Syncope (Acute) 01/2024 per records Dyspnea (Acute) Shortness of breath (Acute) PAF (paroxysmal atrial fibrillation) Sinus tachycardia (Acute) Palpitation (Acute) Hypokalemia Transaminitis Elevated LFTs (Acute) Encounter for pre-operative examination CYNTHIA (obstructive sleep apnea) (Chronic) Asthma, severe persistent (Chronic) Gastroparesis (Chronic) Celiac disease (Chronic) GERD (gastroesophageal reflux disease) (Chronic) IBS (irritable bowel syndrome) (Chronic) Hypothyroidism (Chronic) no current medication -- TSH normal without meds. CHARLES (iron deficiency anemia) (Chronic) ferrous sulfate QID. Dyslipidemia (Chronic) MRSA (methicillin resistant Staphylococcus aureus) (Chronic) 1999 dx nose septum wound 2019 dx in lungs Medical History Elevated troponin NSVT (nonsustained ventricular tachycardia) - hx of nonsustained VT (isolated run on Zio without associated symptoms per cardio); intolerance to beta blockers Renal cyst per medical record, pt unsure Depression Port-A-Cath in place Bilateral hydronephrosis Chronic kidney disease stage 3 or 4 - follows with [facility] Nephrology Sari fish Hx of gastric ulcer Chronic gastritis GERD (gastroesophageal reflux disease) Migraines Chronic nausea Seasonal allergies Hypothyroidism Paroxysmal A-fib - follows with Dr. Aguirre, takes asa daily (not anticoagulated due to anemia and fall risk per cardio records ) - patient referred at last cardio appt 10/2024 for evaluation for left appendage occluder device Celiac disease Hx of renal calculi no surgical intervention needed Poor intravenous access PSVT (paroxysmal supraventricular tachycardia) - no current issues per patient Hx MRSA infection 1999 dx nose septum wound 2019 dx in lungs Gastroparesis IBS (irritable bowel syndrome) Dyslipidemia CHARLES (iron deficiency anemia) History of COVID-19 has had ~5 times - last had ~early 2023, no hospitalization. Orthostatic hypotension Follows with [facility] cardiology On midodrine Chronic anemia frequent iron and blood transfusions. Hypertension hx --> pt reports she is being treated for hypotension Adrenal cyst monitoring unchanged per 2024 imaging; benign per PCP Chronic back pain Degenerative disc disease Osteoarthritis Anxiety Mitral valve prolapse follows with Dr Aguirre Narcolepsy Chronic obstructive pulmonary disease uncontrolled, uses inhalers daily Sleep apnea CPAP + 2lpm of oxygen Surgical History H/O insertion of central venous access port power port placed due to poor IV access + frequent blood draws/iron/blood transfusions S/P spinal fusion C1 through L3 or L4 (~2021 at [facility]) History of cardioversion ~2019 History of cardiac radiofrequency ablation ~2014 [facility] History of bronchoscopy in the S/P trigger finger release right hand History of ankle surgery bilateral ankle repair with hardware H/O hand surgery with hardware (left) S/P GLENNY-BSO S/P surgery on nasal septum "collapsed septum" s/p post op infection that "ate away the septum" S/P nasal surgery multiple Hx of cholecystectomy History of arthroscopic knee surgery left Hx of cardiac cath "2009 - normal coronaries" (pt denies) History of esophagogastroduodenoscopy (EGD) History of colonoscopy History of dilatation and curettage Family History Other No family history of adverse response to anesthesia Social History Smoking Status: Never smoker Second Hand Exposure: No; Do You Dip or Chew Tobacco: No; Tobacco Cessation Education Requested by Patient: No Hx Alcohol Use: No Hx Substance Use: No Preferred Language: Peruvian Communication Ability: Effective Road Supervisor Required: No Beliefs That Will Affect Care: None marital status: Current Living Situation: Spouse and Other Current Living Situation Comment: 4yr old twins at home Other Information That Helps Us Care for You: No Feels Safe at Home: Yes Safety Concerns: Feels Safe At This Time Assistive Devices: Denture - Upper, Glasses and Oxygen - at Night Review of Systems Review of Systems: As per HPI, all other systems reviewed and negative Physical Exam Physical Exam: GENERAL: Comfortable, no respiratory distress SKIN: Pallor, warm HEENT: Pale palpebral conjunctivae, no ptosis, dry buccal mucosa NECK : Supple, no tenderness CHEST : Decreased breath sounds, no tenderness HEART : Irregular, no obvious murmurs ABDOMEN: Some distention, minimal hypogastric tenderness EXTREMITIES : Minimal LE swelling, no LE tenderness, no other conspicuous deformities noted NEUROLOGIC : Coherent, no facial asymmetry, no other gross focality Results & Data Results & Data Vital Signs (Past 12 Hours) Vital Signs Temp Pulse Resp BP Pulse Ox O2 Del Method 03/27/25 16:54 97 H 03/27/25 15:58 36.6 C 78 18 137/94 98 Room Air Laboratory Results Laboratory Results WBC 10.51 K/ul (4.8-10.8) 03/27/25 16:31 RBC 4.05 M/uL (4.20-5.40) L 03/27/25 16:31 Hgb 11.4 g/dl (12.0-16.0) L 03/27/25 19:52 Hct 36.8 % (37.0-47.0) L 03/27/25 19:52 MCV 99.0 fL (80.0-100.0) 03/27/25 16:31 MCH 30.6 pg (25.0-34.0) 03/27/25 16:31 MCHC 30.9 g/dL (32.0-36.0) L 03/27/25 16:31 RDW Std Deviation 58.8 fL (36.4-46.3) H 03/27/25 16:31 RDW Coeff of Reginaldo 16.2 % (11.5-14.5) H 03/27/25 16:31 Plt Count 507 K/uL (130-400) H 03/27/25 16:31 MPV 9.6 fL (9.4-12.4) 03/27/25 16:31 Immature Gran % (Auto) 0.6 % 03/27/25 16:31 Neut % (Auto) 72.0 % 03/27/25 16:31 Lymph % (Auto) 19.3 % 03/27/25 16:31 Park % (Auto) 6.1 % 03/27/25 16:31 Eos % (Auto) 1.5 % 03/27/25 16:31 Baso % (Auto) 0.5 % 03/27/25 16:31 Neut # (Auto) 7.57 K/uL (1.40-6.50) H 03/27/25 16:31 Lymph # (Auto) 2.03 K/uL (1.20-3.40) 03/27/25 16:31 Park # (Auto) 0.64 K/uL (0.11-0.59) H 03/27/25 16:31 Eos # (Auto) 0.16 K/uL (0.00-0.50) 03/27/25 16:31 Baso # (Auto) 0.05 K/uL (0.00-0.20) 03/27/25 16:31 Immature Gran # (Auto) 0.06 K/uL (0.01-0.20) 03/27/25 16:31 PT 12.0 Seconds (9.0-12.0) 03/27/25 16:31 INR 1.1 (0.9-1.1) 03/27/25 16:31 Sodium 143 mmol/L (136-145) 03/27/25 16:31 Potassium 4.0 mmol/L (3.5-5.1) 03/27/25 16:31 Chloride 114 mmol/L (98-107) H 03/27/25 16:31 Carbon Dioxide 20 mmol/L (21-32) L 03/27/25 16:31 Anion Gap 9 (3-11) 03/27/25 16:31 BUN 19 mg/dl (6-23) 03/27/25 16:31 Creatinine 0.91 mg/dl (0.6-1.2) 03/27/25 16:31 Est Cr Clr Drug Dosing 49.8 ml/min 03/27/25 16:31 eGFR 70.89 03/27/25 16:31 BUN/Creatinine Ratio 20.9 (10-20) H 03/27/25 16:31 Glucose 91 mg/dl (70-99(Fasting)) 03/27/25 16:31 Lactate 1.0 mmol/L (0.4-2.0) 03/27/25 17:28 Calcium 9.6 mg/dl (8.6-10.3) 03/27/25 16:31 Magnesium 1.8 mg/dl (1.7-2.4) 03/27/25 16:31 Total Bilirubin 0.5 mg/dl (0.2-1.0) 03/27/25 16:31 AST 20 U/L (13-39) 03/27/25 16:31 ALT 110 U/L (7-52) H 03/27/25 16:31 Alkaline Phosphatase 626 U/L (34-104) H 03/27/25 16:31 Troponin I High Sens 13.1 pg/ml (0-14) 03/27/25 16:31 Total Protein 6.9 gm/dl (6.0-8.3) 03/27/25 16:31 Albumin 3.6 gm/dl (3.4-5.0) 03/27/25 16:31 Globulin 3.3 gm/dl (2.5-4.0) 03/27/25 16:31 Albumin/Globulin Ratio 1.1 (0.9-2) 03/27/25 16:31 Procalcitonin 2.46 ng/ml (0-0.5) H 03/27/25 16:31 Urine Color Yellow 03/27/25 18:49 Urine Appearance Cloudy (Clear) A 03/27/25 18:49 Urine pH 5.5 (4.5-7.5) 03/27/25 18:49 Ur Specific Chandler > 1.045 (1.000-1.030) H 03/27/25 18:49 Urine Protein 3+ (Negative) H 03/27/25 18:49 Urine Glucose (UA) Negative (Negative) 03/27/25 18:49 Urine Ketones Negative (Negative) 03/27/25 18:49 Urine Blood 3+ (Negative) H 03/27/25 18:49 Urine Nitrite Negative (Negative) 03/27/25 18:49 Urine Bilirubin Negative (Negative) 03/27/25 18:49 Urine Urobilinogen Negative (Negative) 03/27/25 18:49 Ur Leukocyte Esterase 1+ (Negative) H 03/27/25 18:49 Urine WBC (Auto) >50 /hpf (0-5) H 03/27/25 18:49 Urine RBC (Auto) >20 /hpf (0-2) H 03/27/25 18:49 U Hyaline Cast (Auto) >20 /lpf (0-2) H 03/27/25 18:49 U Epithel Cells (Auto) 0-2 /hpf (0-2) 03/27/25 18:49 Urine Bacteria (Auto) 1+ (None Seen) H 03/27/25 18:49 Urine Mucus Present (None Prsent) A 03/27/25 18:49 Urine Comment 03/27/25 18:49 Adenovirus (PCR) Not Detected (NotDetected) 03/27/25 18:17 B. pertussis DNA (PCR) Not Detected (NotDetected) 03/27/25 18:17 B.parapertussis DNA PCR Not Detected (NotDetected) 03/27/25 18:17 C. pneumoniae DNA (PCR) Not Detected (NotDetected) 03/27/25 18:17 Coronavirus OC43 (PCR) Not Detected (NotDetected) 03/27/25 18:17 Coronavirus HKU1 (PCR) Not Detected (NotDetected) 03/27/25 18:17 Coronavirus 229E (PCR) Not Detected (NotDetected) 03/27/25 18:17 SARS-CoV-2 (PCR) Not Detected (NotDetected) 03/27/25 18:17 Coronavirus NL63 (PCR) Not Detected (NotDetected) 03/27/25 18:17 Human Metapneumovir PCR Not Detected (NotDetected) 03/27/25 18:17 Influenza Type A (PCR) Not Detected (NotDetected) 03/27/25 18:17 Influenza Type B (PCR) Not Detected (NotDetected) 03/27/25 18:17 M. pneumoniae (PCR) Not Detected (NotDetected) 03/27/25 18:17 Parainfluenza 1 (PCR) Not Detected (NotDetected) 03/27/25 18:17 Parainfluenza 2 (PCR) Not Detected (NotDetected) 03/27/25 18:17 Parainfluenza 3 (PCR) Not Detected (NotDetected) 03/27/25 18:17 Parainfluenza 4 (PCR) Not Detected (NotDetected) 03/27/25 18:17 RSV (PCR) Not Detected (NotDetected) 03/27/25 18:17 Entero/Rhino (PCR) Not Detected (NotDetected) 03/27/25 18:17 Blood Type A Positive 03/27/25 19:52 Antibody Screen POSITIVE A 03/27/25 19:52 Impressions Abdomen/Pelvis CT 03/27/25 17:04 Clinical History: Gross hematuria Technique: Axial computed tomography images were obtained of the abdomen and pelvis after the administration of intravenous contrast. Comparison is made to the prior examination dated 03/11/2025. Findings: The liver is overall of normal size, attenuation, and contour with no sign of cirrhosis or significant fatty infiltration. No liver mass lesion is seen. The portal vein is patent. The gallbladder has been removed. There is mild bile duct dilatation that is likely due to the postcholecystectomy state The spleen is of normal size. No focal splenic lesion is evident. The pancreas appears normal with no sign of acute or chronic pancreatitis and no mass lesion noted. The pancreatic duct is of normal caliber. There is an unchanged 3 cm left adrenal nodule, likely a benign adenoma. The right adrenal gland appears normal Bilateral ureteral stents are again seen. There is mild left hydronephrosis, less severe than before. There has been interval decrease in fluid and soft tissue stranding around the left renal pelvis and left ureteropelvic junction. The previously seen air in this area has resolved. There is apparent mild wall thickening of the left renal collecting system and left renal pelvis. No definite renal mass lesion is identified. There are small bilateral renal cyst, measuring up to 1.2 cm. The aorta is of normal caliber. No abdominal adenopathy is seen. The stomach appears normal. There is no sign of small bowel obstruction. The colon appears unremarkable. The appendix appears normal also. No free intraperitoneal fluid or air is identified. The bladder is decompressed, containing a Jose catheter. The iliac arteries are of normal caliber. No pelvic adenopathy is noted. The uterus has been removed The lungs bases appear clear. Mild thoracolumbar degenerative disc disease is seen. No fracture is identified. No focal osseous lesion is seen Impression: 1. Interval decrease in left hydronephrosis with mild hydronephrosis remaining 2. Interval improvement in fluid and inflammatory change around the left renal pelvis and left UPJ, which could be due to improving infection, resolved perforation, or other improving inflammation 3.. Mild wall thickening of the left renal collecting system. While this could be reactive, infection is also possible. There is no clear pyelonephritis 4. Bilateral renal cysts 5. Unchanged bilateral ureteral stents 6. Unchanged 3 cm left adrenal lesion, likely a benign adenoma ACT 112: Positive. There are findings on this exam that require communication between the performing entity and the patient following Patient Test Result Information Act ([place] ACT 112) guidelines. Electronically signed by Darinel Hilliard 03-27-2025 6:34 PM Chest X-Ray 03/27/25 17:04 Chest radiograph, one view History: Cough Comparison: 03/12/2025 Findings: Single AP view of the chest performed. No focal consolidation or pleural effusion. No pneumothorax. Right chest wall port with catheter tip at the mid SVC. The cardiomediastinal silhouette is within normal limits. Normal pulmonary vascularity. No evidence for lymphadenopathy. No visualized bony or soft tissue abnormality. There are chronic left-sided rib fracture deformities. Impression: Normal chest radiograph Electronically signed by Lai Gimenez 03-27-2025 5:48 PM Diagnostic Findings EKG could not be located at time of dictation.
[2025-03-27] MEDS ORDERED: PROMETHAZINE 6.25 MG/50.25 ML BAG IV PRN (21:48)
[2025-03-27] MEDS ORDERED: HYDROmorphone INJ 0.5 MG/0.5 ML SYR IV PRN (21:48)
[2025-03-27] MEDS: SODIUM CHLORIDE 0.45 % 1,000 ML IV ONE (23:15)
[2025-03-27] MEDS: FLUTICASONE/VILANTEROL 200/25MCG 14 PUFFS/INHALER INH SCH (23:21)
[2025-03-27] MEDS: FLUTICASONE PROPIONATE NA SPR 16 GM BTL SCH (23:22)
[2025-03-27] MEDS: AZELASTINE HCL 0.1% NASAL 200 SPRAYS/27,400 MCG BTL SCH (23:23)
[2025-03-27] MEDS: TOPIRAMATE 100 MG TAB PO SCH (23:25)
[2025-03-27] MEDS: AMITRIPTYLINE HCL 25 MG TAB PO SCH (23:26)
[2025-03-27] MEDS: MONTELUKAST SODIUM 10 MG TABLET PO SCH (23:26)
[2025-03-27] MEDS: FAMOTIDINE 40 MG TABLET PO SCH (23:26)
[2025-03-27] MEDS: LEVALBUTEROL 1.25 MG/3 ML NEB INH SCH (23:32)
[2025-03-28] MEDS: cefTRIAXone SODIUM 2,000 MG/50 ML BAG IV SCH (03:12)
[2025-03-28] MEDS: LEVOTHYROXINE SODIUM 100 MCG TABLET PO SCH (06:18)
[2025-03-28 06:33] LABS: Hematocrit (blood only) 34.5 % (37.0-47.0); Hemoglobin 11.1 g/dl (12.0-16.0); Immature Granulocytes # (auto) 0.02 K/uL (0.01-0.20); Immature Granulocytes % (auto) 0.3 %; Mean Corpuscular Hemoglobin 32.0 pg (25.0-34.0); Mean Corpuscular Volume 99.4 fL (80.0-100.0); Platelet Count 388 K/uL (130-400); RDW Standard Deviation 58.1 fL (36.4-46.3); Red Blood Count 3.47 M/uL (4.20-5.40); White Blood Count 6.45 K/ul (4.8-10.8)
[2025-03-28 07:07] LABS: Anion Gap 7.0 (3-11); Blood Urea Nitrogen 15.0 mg/dl (6-23); Calcium 8.2 mg/dl (8.6-10.3); Carbon Dioxide 19.0 mmol/L (21-32); Chloride 115.0 mmol/L (98-107); Creatinine Clr Calc Pharmacy 66.0 ml/min; Glucose 96.0 mg/dl (70-99(Fasting)); Potassium 3.3 mmol/L (3.5-5.1); Sodium 141.0 mmol/L (136-145)
[2025-03-28] MEDS: MIDODRINE HCL 2.5 MG TAB PO SCH (07:13)
[2025-03-28] MEDS: VERAPAMIL HCL 120 MG TABCR PO SCH (08:06)
[2025-03-28] MEDS: MULTIVITAMIN TAB PO SCH (08:07)
[2025-03-28] MEDS: FEXOFENADINE HCL 180 MG TAB PO SCH (08:07)
[2025-03-28] MEDS: FOLIC ACID 1 MG TAB PO SCH (08:08)
[2025-03-28] MEDS: POLYETHYLENE (MIRALAX) 17 GM PACK PO SCH (09:35)
--- NOTE | 2025-03-28 09:48 | Urology Consultation ---
Date of Consultation March 28, 2025 Assessment & Plan (1) Bilateral hydronephrosis: (2) Acute UTI (urinary tract infection): 64-year-old female status post cystoscopy with bilateral retrograde pyelogram and stent placement, right ureteral dilation, left ureteroscopy and laser endopyelotomy on 03/08/[address] Williamson presented to the emergency department on 03/27/2025 for evaluation of generalized weakness. She was admitted to medicine service for generalized weakness, Afib with RVR, and suspe cted UTI. Patient afebrile and hemodynamically stable Labs today reviewedcreatinine 0.74, WBC 6.45, hemoglobin 11.1 Urinalysis is somewhat suspicious for infection Urine culture is pending Continue with broad-spectrum antibiotics and narrow per sensitivity data when available CTAP reviewed and interval improvement of left hydronephrosis and fluid and inflammatory change by the left renal pelvis/UPJ; bilateral stents in appropriate position Jose catheter patent and draining with yellow urine No hematuria at present We discussed that hematuria can be expected with bilateral ureteral stents in place Recommend maintain Jose catheter until outpatient assessment Okay to manually irrigate catheter if needed for obstruction Plan to maintain ureteral stents until outpatient assessment Recommend consider tamsulosin, Pyridium, oxybutynin for stent management Continue supportive care medical management per hospital medicine service Will arrange outpatient follow-up with our service for ongoing management will sign off, please contact our service with any additional questions or concerns History of Present Illness Reason for Consultation: hematuria Attending Physician: Tito Rodriguez MD History of Present Illness This is a 64-year-old female who follows with urology for bilateral hydronephrosis and obstruction. She has status post cystoscopy with bilateral retrograde pyelogram and stent placement, right ureteral dilation, left ureteroscopy and laser endopyelotomy on 03/08/[address] Williamson. She was hospitalized 03/11-03/18/2025 for sepsis, A-fib with RVR, LILLIANA and transaminitis. Urology was consulted during her last admission with recommendations to maintain ureteral stents for 3 to 4 weeks as planned and maintain Jose catheter until outpatient assessment. She presented to the emergency department on 03/27/2025 for evaluation of generalized weakness. On arrival to ED, she was afebrile and hemodynamically stable. Labs showed WBC 10.51, hemoglobin 12.4, creatinine 0.91, lactate 1.0. Urinalysis showed 3+ blood, 1+ LE, >50 WBC, >20 RBC, 0-2 epithelial cells and 1+ bacteria. Urine and blood cultures obtained. Workup included CT abdomen pelvis which showed interval improvement in left hydronephrosis with mild hydronephrosis remaining, interval improvement in fluid and inflammatory change on the left renal pelvis and left UPJ, mild wall thickening of the left renal collecting system. B ilateral ureteral stents in appropriate position. Bilateral renal cysts. ED course: IV fluids, morphine, ondansetron, acetaminophen, meropenem, and diltiazem. She was admitted to the hospital medicine service for generalized weakness, A-fib with RVR, and suspected acute UTI. Urology is consulted for hematuria. Patient seen and examined at bedside. She is awake and resting comfortably in bed. No acute issues overnight. She reports flank pain has improved since arrival. She reports bilateral flank pain that radiates to the abdomen. Jose intact with yellow urine. Denies gross hematuria. No fever or chills. Nausea, no vomiting. Allergies Allergy/AdvReac Type Severity Reaction Status Date / Time bee venom protein (honey bee) Allergy Severe ANAPHYLAXIS Verified 03/27/25 18:41 coconut Allergy Severe RASH; SOB Verified 03/27/25 18:41 gluten Allergy Severe CELIAC'S Verified 03/27/25 18:41 latex Allergy Severe Anaphylaxis Verified 03/27/25 18:41 Penicillins Allergy Severe Anaphylaxis Verified 03/27/25 18:41 Sulfa (Sulfonamide Allergy Severe Anaphylaxis Verified 03/27/25 18:41 Antibiotics) ROBER Inhibitors Allergy Intermediate RASH/TACHYC Verified 03/27/25 18:41 ARDIA cefaclor Allergy Intermediate CECLOR--RASH/UPSET Verified 03/27/25 18:41 STOMACH egg Allergy Intermediate RASH & Verified 03/27/25 18:41 Bloating Influenza Virus Vaccines Allergy Intermediate rash and Verified 03/27/25 18:41 bloating tetracycline Allergy Intermediate NAUSEA/VOMI Verified 03/27/25 18:41 TING/RASH Quinolones Allergy Unknown ALLERGY TO Verified 03/27/25 18:41 AVELOX ,CAN TAKE CIPRO OR LEVAQUIN W/O RXN Beta-Blockers AdvReac Intermediate intolerance Verified 03/27/25 18:41 (Beta-Adrenergic Bloc as per records lactose AdvReac Intermediate BLOATING; Verified 03/27/25 18:41 DIARRHEA; VOMITING Home Medications Medication Instructions Recorded Confirmed Type aspirin 81 mg tablet,delayed 81 mg PO QAM 09/14/24 03/27/25 History release atorvastatin 20 mg tablet 20 mg PO HS 09/14/24 03/27/25 History cimetidine 400 mg tablet 400 mg PO BID 09/14/24 03/27/25 History fexofenadine 180 mg tablet 180 mg PO QAM 09/14/24 03/27/25 History fluticasone 250 mcg-salmeterol 50 1 inh inhalation BID 09/14/24 03/27/25 History mcg/dose blistr powdr for inhalation (Advair Diskus) folic acid 1 mg tablet 1 mg PO BID 09/14/24 03/27/25 History hyoscyamine sulfate 0.375 mg 0.375 mg PO Q6H PRN Abdominal Pain 09/14/24 03/27/25 History tablet,extended release,12 hr ipratropium 20 mcg-albuterol 100 1 puff inhalation QID PRN 09/14/24 03/27/25 History mcg/actuation mist for inhalation Shortness Of Breath Or Wheezing (Combivent Respimat) levothyroxine 100 mcg capsule 100 mcg PO QAM 09/14/24 03/27/25 History montelukast 10 mg tablet 10 mg PO HS 09/14/24 03/27/25 History multivitamin 1 tab PO QAM 09/14/24 03/27/25 History rabeprazole 20 mg tablet,delayed 40 mg PO BID 09/14/24 03/27/25 History release (AcipHex) sucralfate 1 gram tablet 1 g PO ACHS 09/14/24 03/27/25 History topiramate 100 mg tablet 100 mg PO BID 09/14/24 03/27/25 History CPAP Machine 09/15/24 03/11/25 History amitriptyline 75 mg tablet 75 mg PO HS 09/15/24 03/27/25 History azelastine 137 mcg (0.1 %) nasal 1 spray intranasal BID 09/15/24 03/27/25 History spray levalbuterol HCl 1.25 mg/3 mL 1.25 mg inhalation Q6H 09/15/24 03/27/25 History solution for nebulization mometasone 50 mcg/actuation nasal 2 spray intranasal BID 09/15/24 03/27/25 History spray ondansetron 4 mg disintegrating 4 mg PO Q8H PRN Nausea And Vomiting 09/15/24 03/27/25 History tablet polyethylene glycol 3350 17 gram 17 g PO QAM 09/15/24 03/27/25 History oral powder packet (Miralax) oxybutynin chloride 5 mg tablet 5 mg PO Q8H PRN bladder spasms #9 03/08/25 03/27/25 Rx tabs epinephrine 0.3 mg/0.3 mL 0.3 mg subcut UD PRN Anaphylaxis 03/11/25 03/27/25 History injection, auto-injector midodrine 5 mg tablet 5 mg PO TID #90 tabs 03/18/25 03/27/25 Rx verapamil 120 mg tablet,extended 120 mg PO DAILY #30 tabs 03/18/25 03/27/25 Rx release Patient History Medical History Elevated troponin NSVT (nonsustained ventricular tachycardia) - hx of nonsustained VT (isolated run on Zio without associated symptoms per cardio); intolerance to beta blockers Renal cyst per medical record, pt unsure Depression Port-A-Cath in place Bilateral hydronephrosis Chronic kidney disease stage 3 or 4 - follows with [facility] Nephrology Sari fish Hx of gastric ulcer Chronic gastritis GERD (gastroesophageal reflux disease) Migraines Chronic nausea Seasonal allergies Hypothyroidism Paroxysmal A-fib - follows with Dr. Aguirre, takes asa daily (not anticoagulated due to anemia and fall risk per cardio records ) - patient referred at last cardio appt 10/2024 for evaluation for left appendage occluder device Celiac disease Hx of renal calculi no surgical intervention needed Poor intravenous access PSVT (paroxysmal supraventricular tachycardia) - no current issues per patient Hx MRSA infection 1999 dx nose septum wound 2019 dx in lungs Gastroparesis IBS (irritable bowel syndrome) Dyslipidemia CHARLES (iron deficiency anemia) History of COVID-19 has had ~5 times - last had ~early 2023, no hospitalization. Orthostatic hypotension Follows with [facility] cardiology On midodrine Chronic anemia frequent iron and blood transfusions. Hypertension hx --> pt reports she is being treated for hypotension Adrenal cyst monitoring unchanged per 2024 imaging; benign per PCP Chronic back pain Degenerative disc disease Osteoarthritis Anxiety Mitral valve prolapse follows with Dr Aguirre Narcolepsy Chronic obstructive pulmonary disease uncontrolled, uses inhalers daily Sleep apnea CPAP + 2lpm of oxygen Surgical History H/O insertion of central venous access port power port placed due to poor IV access + frequent blood draws/iron/blood transfusions S/P spinal fusion C1 through L3 or L4 (~2021 at [facility]) History of cardioversion ~2019 History of cardiac radiofrequency ablation ~2014 [facility] History of bronchoscopy in the S/P trigger finger release right hand History of ankle surgery bilateral ankle repair with hardware H/O hand surgery with hardware (left) S/P GLENNY-BSO S/P surgery on nasal septum "collapsed septum" s/p post op infection that "ate away the septum" S/P nasal surgery multiple Hx of cholecystectomy History of arthroscopic knee surgery left Hx of cardiac cath "2009 - normal coronaries" (pt denies) History of esophagogastroduodenoscopy (EGD) History of colonoscopy History of dilatation and curettage Family History Other No family history of adverse response to anesthesia Social History Smoking Status: Never smoker Second Hand Exposure: No; Do You Dip or Chew Tobacco: No; Tobacco Cessation Education Requested by Patient: No Hx Alcohol Use: No Hx Substance Use: No Preferred Language: Kazakh Communication Ability: Effective Core Stacker Required: No Beliefs That Will Affect Care: None marital status: Current Living Situation: Spouse and Other Current Living Situation Comment: 4yr old twins at home Other Information That Helps Us Care for You: No Feels Safe at Home: Yes Safety Concerns: Feels Safe At This Time Assistive Devices: Denture - Upper, Glasses and Oxygen - at Night Review of Systems Review of Systems: All systems reviewed & are unremarkable except as noted in HPI & below Physical Exam Constitutional: no acute distress Respiratory: normal respiratory effort; no respiratory distress and no labored breathing Gastrointestinal (Abdomen): Inspection/Auscultation: abdomen normal to inspection Musculoskeletal: Head/Neck/Chest: normocephalic Neurologic: moves all extremities and awake Psychiatric: Orientation: alert and oriented x 3 Genitourinary: Jose draining yellow urine Results & Data Vital Signs (Past 12 Hours) Vital Signs Temp Pulse Pulse Resp BP BP Pulse Ox 03/28/25 07:22 91 H 16 96 03/28/25 07:09 36.4 C L 93 H 18 109/66 96 03/28/25 03:09 36.8 C 120 H 18 129/73 98 03/28/25 03:03 145 H 133/102 H 03/27/25 23:32 91 H 18 97 03/27/25 22:45 86 03/27/25 22:22 36.4 C L 18 126/76 99 03/27/25 22:20 03/27/25 22:05 85 16 142/105 H 96 O2 Del Method O2 Flow Rate 03/28/25 07:22 Room Air 03/28/25 07:09 Room Air 03/28/25 03:09 Room Air 03/28/25 03:03 03/27/25 23:32 Room Air 03/27/25 22:45 03/27/25 22:22 Nasal Cannula 2 03/27/25 22:20 Room Air 03/27/25 22:05 Room Air PG Care Time/CCT Total # of Minutes Spent Total Time Spent with Patient: Total time spent is greater than 50% in coordination of care (as documented) at patient's floor/unit and/or counseling patient: Coding Level of Care Code 49189 INT INP/OBS CARE 2/55MIN Diagnoses Bilateral hydronephrosis N13.30 Acute UTI (urinary tract infection) N39.0
--- NOTE | 2025-03-28 10:17 | Ultrasound Report ---
US liver CLINICAL HISTORY: increased ALP COMPARISON STUDY: CT scan yesterday FINDINGS: Pancreas is obscured by bowel gas. Gallbladder is surgically absent. Liver demonstrates mil d diffusely increased echogenicity. Liver measures approximately 15 cm. There is normal direction of flow in the portal vein. There is stable dilatation of the common bile duct measuring 1.3 cm greatest diameter, commonly seen after cholecystectomy. Right kidney shows no hydronephrosis. No ascites. IMPRESSION: Mild fatty liver. ACT 112: Negative or not required by law. Electronically signed by: Fred Fisher M.D. 03/28/2025 10:15 AM
[2025-03-28] MEDS: POTASSIUM CHLORIDE / WTR 10 MEQ/100 ML PLCT IV SCH (11:51)
--- NOTE | 2025-03-28 14:09 | Hospitalist Progress Note ---
Date of Service March 28, 2025 Assessment & Plan (1) Atrial fibrillation with rapid ventricular response: Plan: Complicated UTI Patient with hx of s/p with bilateral retrograde pyelogram and stent placement, right ureteral dilation, left ureteroscopy and laser endopyelotomy on 03/08/2025 Urine analysis suggestive of UTI CT abd on admission interval decrease of left hydronephrosis, Interval improvement in fluid and inflammatory change around the left renal pelvis and left UPJ, which could be due to improving infection, on Ceftriaxone, will follow up with Urine Culture. Urology consulted; no plans for intervention A.fib with RVR- not on AC due to hx of bleeding. on Verapamil, dose decreased last admission due to hypotension. Monitor on telemetry Diarrhea rule out C. difficile given recent antibiotic Rx- c. diff awaited history idiopathic cardiac arrest/VT orthostatic hypotension on midodrine-continue hyperlipidemia/statin intolerance- on lipitor,continue asthma/COPD, chronic cough symptoms as per patient CYNTHIA/narcolepsy on CPAP hypothyroidism, euthyroid as of recent outpatient TSH chronic anemia, hemoglobin better than baseline DVT prophylaxis SCDs Re: Hematuria Full code Time spent evaluating patient, direct bedside care, chart review, placing orders, interpretation of diagnostic studies, discussion with consultants, patient, and family members, as well as other required patient management activities is 50 minutes Please note the above document was generated using voice recognition software. It may contain grammatical, syntax or spelling errors. Any formal questions or concerns about the content, text or information contained within the body of this dictation should be directly addressed to the provider for clarification . Admission and Anticipated Discharge Date Admission Date: March 27, 2025 Subjective Patient seen and examined at bedside. She reports lower abd pain and discomfort. Review of Systems Review of Systems: All systems reviewed & are unremarkable except as noted in Subjective Physical Exam Physical Exam: Constitutional: WD/WN, vitals as above, NAD, sitting up in bed, pleasant, conversing easily Respiratory: normal respiratory effort, lungs clear to auscultation, no wheeze, rales, rhonchi. Normal insp/exp effort, no accessory muscle use Cardiovascular: RRR, no murmur, no edema Vessels: no JVD or carotid bruit Chest: normal inspection of chest Abdomen: mild tenderness of lower abdomen Skin: no rashes, warm and dry normal turgor Neurologic: PERRL, EOMI, accommodation nl, no face palsy, no dysarthria CN's II- XI intact bilaterally and moves all extremities Psychiatric: A+Ox3, euthymic affect Results & Data Results & Data Vital Signs (Past 12 Hours) Vital Signs Temp Pulse Resp BP Pulse Ox O2 Del Method FiO2 03/28/25 13:28 67 15 100 Room Air 21 03/28/25 11:33 36.5 C 90 18 91/58 L 96 Room Air 03/28/25 07:22 91 H 16 96 Room Air 03/28/25 07:09 36.4 C L 93 H 18 109/66 96 Room Air 03/28/25 03:09 36.8 C 120 H 18 129/73 98 Room Air 03/28/25 03:03 145 H 133/102 H
[2025-03-28] MEDS: ATORVASTATIN 20 MG TAB PO SCH (20:17)
[2025-03-29] MEDS ORDERED: HEPARIN 100 UNIT/ML 5ML FLUSH FLUSH PRN (05:51)
[2025-03-29 06:24] LABS: Hematocrit (blood only) 32.2 % (37.0-47.0); Hemoglobin 10.3 g/dl (12.0-16.0); Immature Granulocytes # (auto) 0.03 K/uL (0.01-0.20); Immature Granulocytes % (auto) 0.6 %; Mean Corpuscular Hemoglobin 32.0 pg (25.0-34.0); Mean Corpuscular Volume 100.0 fL (80.0-100.0); Platelet Count 336 K/uL (130-400); RDW Standard Deviation 60.2 fL (36.4-46.3); Red Blood Count 3.22 M/uL (4.20-5.40); White Blood Count 5.41 K/ul (4.8-10.8)
[2025-03-29 07:09] LABS: Anion Gap 5.0 (3-11); Blood Urea Nitrogen 18.0 mg/dl (6-23); Calcium 8.4 mg/dl (8.6-10.3); Carbon Dioxide 22.0 mmol/L (21-32); Chloride 115.0 mmol/L (98-107); Creatinine Clr Calc Pharmacy 64.5 ml/min; Glucose 100.0 mg/dl (70-99(Fasting)); Potassium 4.4 mmol/L (3.5-5.1); Sodium 142.0 mmol/L (136-145)
--- NOTE | 2025-03-29 10:09 | Hospitalist Progress Note ---
Date of Service March 29, 2025 Assessment & Plan (1) Atrial fibrillation with rapid ventricular response: Plan: Complicated UTI Patient with hx of s/p with bilateral retrograde pyelogram and stent placement, right ureteral dilation, left ureteroscopy and laser endopyelotomy on 03/08/2025 Urine analysis suggestive of UTI CT abd on admission interval decrease of left hydronephrosis, Interval improvement in fluid and inflammatory change around the left renal pelvis and left UPJ, which could be due to improving infection, Urine culture growing Acinetobacter Junii on Ceftriaxone, will follow up with final culture and senstivitiy Urology consulted; no plans for intervention PT/OT darleen Gilliland.fib with RVR- not on AC due to hx of bleeding. on Verapamil, dose decreased last admission due to hypotension. Monitor on telemetry Diarrhea rule out C. difficile given recent antibiotic Rx- c. diff awaited history idiopathic cardiac arrest/VT orthostatic hypotension on midodrine-continue hyperlipidemia/statin intolerance- on lipitor,continue asthma/COPD, chronic cough symptoms as per patient CYNTHIA/narcolepsy on CPAP hypothyroidism, euthyroid as of recent outpatient TSH chronic anemia- monitor DVT prophylaxis heparin Full code Time spent evaluating patient, direct bedside care, chart review, placing orders, interpretation of diagnostic studies, discussion with consultants, patient, and family members, as well as other required patient management activities is 50 minutes Please note the above document was generated using voice recognition software. It may contain grammatical, syntax or spelling errors. Any formal questions or concerns about the content, text or information contained within the body of this dictation should be directly addressed to the provider for clarification . Admission and Anticipated Discharge Date Admission Date: March 27, 2025 Subjective Patient seen and examined at bedside. She is comfortable, reports pain is much better. Review of Systems Review of Systems: All systems reviewed & are unremarkable except as noted in Subjective Physical Exam Physical Exam: Constitutional: WD/WN, vitals as above, NAD, sitting up in bed, pleasant, conversing easily Respiratory: normal respiratory effort, lungs clear to auscultation, no wheeze, rales, rhonchi. Normal insp/exp effort, no accessory muscle use Cardiovascular: RRR, no murmur, no edema Vessels: no JVD or carotid bruit Chest: normal inspection of chest Abdomen: soft, non-tender Skin: no rashes, warm and dry normal turgor Neurologic: PERRL, EOMI, accommodation nl, no face palsy, no dysarthria CN's II- XI intact bilaterally and moves all extremities Psychiatric: A+Ox3, euthymic affect Results & Data Results & Data Vital Signs (Past 12 Hours) Vital Signs Temp Pulse Pulse Resp BP Pulse Ox O2 Del Method 03/29/25 07:17 88 18 98 Room Air 03/29/25 06:57 36.4 C L 107 H 14 91/58 L 97 Room Air 03/29/25 05:13 73 03/29/25 03:22 36.5 C 67 18 94/64 L 96 Room Air 03/28/25 23:00 101 H 03/28/25 23:00 36.3 C L 56 L 18 97/62 L 96 Room Air
[2025-03-29] MEDS: HEPARIN SOD 5,000 UNIT/0.5 ML VIAL SQ SCH (14:25)
[2025-03-29] MEDS: ACETAMINOPHEN 500 MG TAB PO PRN (17:20)
[2025-03-29] MEDS: SODIUM CHLORIDE 0.9% 250 ML IV ONE ×2 (19:33→19:58)
[2025-03-29] MEDS: MIDODRINE HCL 2.5 MG TAB PO STA (19:35)
[2025-03-30 06:30] LABS: Hematocrit (blood only) 32.1 % (37.0-47.0); Hemoglobin 10.1 g/dl (12.0-16.0); Immature Granulocytes # (auto) 0.02 K/uL (0.01-0.20); Immature Granulocytes % (auto) 0.4 %; Mean Corpuscular Hemoglobin 31.6 pg (25.0-34.0); Mean Corpuscular Volume 100.3 fL (80.0-100.0); Platelet Count 308 K/uL (130-400); RDW Standard Deviation 62.0 fL (36.4-46.3); Red Blood Count 3.20 M/uL (4.20-5.40); White Blood Count 5.19 K/ul (4.8-10.8)
[2025-03-30 07:02] LABS: Anion Gap 5.0 (3-11); Blood Urea Nitrogen 15.0 mg/dl (6-23); Calcium 8.7 mg/dl (8.6-10.3); Carbon Dioxide 23.0 mmol/L (21-32); Chloride 113.0 mmol/L (98-107); Creatinine Clr Calc Pharmacy 58.2 ml/min; Glucose 102.0 mg/dl (70-99(Fasting)); Potassium 3.9 mmol/L (3.5-5.1); Sodium 141.0 mmol/L (136-145)
--- NOTE | 2025-03-30 13:02 | Discharge Summary ---
Date of Service March 30, 2025 Admission HPI Per Admitting Provider History obtained from patient and records. Medical history is significant for history idiopathic cardiac arrest/VT, PAT, hypertension, PAF (not on anticoagulation due to fall risk and anemia as per records), orthostatic hypotension on midodrine, hyperlipidemia/statin intolerance, asthma/COPD, CYNTHIA/narcolepsy on CPAP, urolithiasis, hydronephrosis, celiac disease, GERD, irritable bowel syndrome, pancreas divisum, left adrenal tumor as per records, hypothyroidism, chronic anemia (baseline hemoglobin of 11), RLS, endometriosis/PCOS, hx MRSA. Recent confinement 2 weeks ago for recurrent A-fib secondary to severe sepsis secondary to emphysematous pyelonephritis. No growth on cultures. Patient midodrine titrated upwards and verapamil dose decreased on discharge. Patient discharged with Jose catheter. Patient seen at PCPs office on follow-up visit 4 days ago. Patient still with dysuria symptoms. Outpatient UA WBC esterase positive. Hematuria with worsening achy lower abdominal pain over the last 3 days. Diarrhea symptoms occasionally bloody as per patient. No chest pain or unusual shortness of breath. Dry cough symptoms which is a sign for her that she is in A-fib. Patient compliant with home medications. Rapid A-fib noted at the ER, heart rate 140s. IV Cardizem and meropenem administered at the ER. MEDICAL HISTORY: As above. SURGICAL HISTORY: TAHBSO, cholecystectomy, appendectomy, ankle surgery, knee surgery, nasal reconstruction, sinus surgery, finger tendon sheath surgery, urologic procedure, laminectomy/spine surgery FAMILY HISTORY: Family history of unknown. Patient is adopted. PERSONAL/SOCIAL HISTORY: Nonsmoker. No chronic intake of inatke of ETOH. 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 Admission Exam Per Admitting Provider GENERAL: Comfortable, no respiratory distress SKIN: Pallor, warm HEENT: Pale palpebral conjunctivae, no ptosis, dry buccal mucosa NECK : Supple, no tenderness CHEST : Decreased breath sounds, no tenderness HEART : Irregular, no obvious murmurs ABDOMEN: Some distention, minimal hypogastric tenderness EXTREMITIES : Minimal LE swelling, no LE tenderness, no other conspicuous deformities noted NEUROLOGIC : Coherent, no facial asymmetry, no other gross focality Principal Diagnosis Atrial fibrillation with rapid ventricular response: Complicated UTI Discharge Exam Constitutional: WD/WN, vitals as above, NAD, sitting up in bed, pleasant, conversing easily Respiratory: normal respiratory effort, lungs clear to auscultation, no wheeze, rales, rhonchi. Normal insp/exp effort, no accessory muscle use Cardiovascular: RRR, no murmur, no edema Vessels: no JVD or carotid bruit Chest: normal inspection of chest Abdomen: soft, non-tender Skin: no rashes, warm and dry normal turgor Neurologic: PERRL, EOMI, accommodation nl, no face palsy, no dysarthria CN's II-XI intact bilaterally and moves all extremities Psychiatric: A+Ox3, euthymic affect Discharge Data Allergies Allergy/AdvReac Type Severity Reaction Status Date / Time bee venom protein (honey bee) Allergy Severe ANAPHYLAXIS Verified 03/27/25 18:41 coconut Allergy Severe RASH; SOB Verified 03/27/25 18:41 gluten Allergy Severe CELIAC'S Verified 03/27/25 18:41 latex Allergy Severe Anaphylaxis Verified 03/27/25 18:41 Penicillins Allergy Severe Anaphylaxis Verified 03/27/25 18:41 Sulfa (Sulfonamide Allergy Severe Anaphylaxis Verified 03/27/25 18:41 Antibiotics) ROBER Inhibitors Allergy Intermediate RASH/TACHYC Verified 03/27/25 18:41 ARDIA cefaclor Allergy Intermediate CECLOR--RASH/UPSET Verified 03/27/25 18:41 STOMACH egg Allergy Intermediate RASH & Verified 03/27/25 18:41 Bloating Influenza Virus Vaccines Allergy Intermediate rash and Verified 03/27/25 18:41 bloating tetracycline Allergy Intermediate NAUSEA/VOMI Verified 03/27/25 18:41 TING/RASH Quinolones Allergy Unknown ALLERGY TO Verified 03/27/25 18:41 AVELOX ,CAN TAKE CIPRO OR LEVAQUIN W/O RXN Beta-Blockers AdvReac Intermediate intolerance Verified 03/27/25 18:41 (Beta-Adrenergic Bloc as per records lactose AdvReac Intermediate BLOATING; Verified 03/27/25 18:41 DIARRHEA; VOMITING Consultations 03/27/25 19:06 ED Decision to Admit Stat 03/27/25 21:43 Consult Urology Routine Ordered Studies 03/27/25 17:04 CT Abd and Pelvis [CT abd pelvis IV con only] Stat 03/28/25 08:02 US liver Routine Hospital Course (1) Atrial fibrillation with rapid ventricular response: Complicated UTI Patient with hx of s/p with bilateral retrograde pyelogram and stent placement, right ureteral dilation, left ureteroscopy and laser endopyelotomy on 03/08/2025 Urine analysis suggestive of UTI CT abd on admission interval decrease of left hydronephrosis, Interval improvement in fluid and inflammatory change around the left renal pelvis and left UPJ, which could be due to improving infection, Urine culture growing Acinetobacter Junii During the hospitalization, patient was treated with IV antibiotics with improvement in abdominal pain or discomfort. Urology was consulted and they recommended to maintain Jose catheter. Patient was ordered PT OT which patient refused as she felt that she was at baseline and wanted to go home. She was given 1 week of antibiotic prescription. She was recommended to follow- up with her primary care doctor and urology. Her A-fib remained under control. Please note the above document was generated using voice recognition software. It may contain grammatical, syntax or spelling errors. Any formal questions or concerns about the content, text or information contained within the body of this dictation should be directly addressed to the provider for clarification . Total Time Total Time Spent Total Time Spent (In Minutes): 45 Total Time Includes: Examination of the Patient, Discharge Planning, Medication Reconciliation, Communication With Other Providers and Other Discharge Plan Discharge Items Patient Disposition: Home - Self-Care Reason For Visit: AF,COMP UTI Discharge Diagnosis: Complicated UTI Condition on Discharge: Fair Activity: Resume your previous activity Non-emergency contact: Primary Care Provider Call non-emergency contact if: you have any medication questions and your symptoms worsen Follow-up/Referrals: Vicki Watson MD [Primary Care Provider] - (Date & Time 04/04/2025 10:20 AM Provider: Vicki Cadet MD Family [facility] ) Diet: Regular Addtl Attending Provider Instructions: You were admitted to the hospital due to UTI. You are treated with antibiotic during the hospitalization. You are prescribed ciprofloxacin to be taken twice a day for 7 more days. Please follow-up with urology and your primary care doctor. Pending Studies at Discharge: No Stand-Alone Forms: My [employer], Smoking Cessation Medications and DC Order Prescriptions: New ciprofloxacin HCl 500 mg tablet 500 mg PO BID 7 Days Qty: 14 0RF Continued fluticasone propion-salmeterol [Advair Diskus] 250-50 mcg/dose Blister With Device 1 inh INHALATION BID atorvastatin 20 mg Tablet 20 mg PO HS cimetidine 400 mg Tablet 400 mg PO BID Rx Instructions: administer with meals hyoscyamine sulfate 0.375 mg Tablet Extended Release 12 Hr 0.375 mg PO Q6H PRN (Reason: Abdominal Pain) folic acid 1 mg Tablet 1 mg PO BID montelukast 10 mg Tablet 10 mg PO HS levothyroxine 100 mcg Capsule 100 mcg PO QAM Combivent Respimat 20-100 mcg/actuation Mist 1 puff INHALATION QID PRN (Reason: Shortness Of Breath Or Wheezing) Rx Instructions: space evenly during waking hours rabeprazole [AcipHex] 20 mg Tablet,Delayed Release (Dr/Ec) 40 mg PO BID sucralfate 1 gram Tablet 1 g PO ACHS fexofenadine 180 mg Tablet 180 mg PO QAM aspirin 81 mg Tablet,Delayed Release (Dr/Ec) 81 mg PO QAM topiramate 100 mg Tablet 100 mg PO BID multivitamin Tablet 1 tab PO QAM levalbuterol HCl 1.25 mg/3 mL Solution For Nebulization 1.25 mg INHALATION Q6H amitriptyline 75 mg Tablet 75 mg PO HS ondansetron 4 mg Tablet,Disintegrating 4 mg PO Q8H PRN (Reason: Nausea And Vomiting) polyethylene glycol 3350 [Miralax] 17 gram Powder In Packet 17 g PO QAM mometasone 50 mcg/actuation [place],Non-Aerosol 2 spray INTRANASAL BID Rx Instructions: administer into each nostril azelastine 137 mcg (0.1 %) [place],Non-Aerosol 1 spray INTRANASAL BID Rx Instructions: administer into each nostril (DME) [place] [facility] [place]: 1 LPM bled through CPAP during hours of sleep oxybutynin chloride 5 mg tablet 5 mg PO Q8H PRN (Reason: bladder spasms) Qty: 9 0RF epinephrine 0.3 mg/0.3 mL auto-injector 0.3 mg subcut UD PRN (Reason: Anaphylaxis) midodrine 5 mg tablet 5 mg PO TID Qty: 90 0RF Rx Instructions: do not give last dose of day after 6PM or within 4 hrs of bedtime verapamil 120 mg Tablet Extended Release 120 mg PO DAILY Qty: 30 0RF Discharge Orders: Discharge Order (Routine); Ordered 03/30/25 Ordered By: Tito Rodriguez Admission Data Admit Date/Time: 03/27/25 21:18 Attending Provider: Tito Rodriguez Admit Provider: Mike Johnson Primary Care Provider: Vicki Watson Other Providers: Mike Johnson; Lai Griffiths; Laura Hardy; Dex Williamson; Hannah Olvera; Olivia Richard; Flavio Thompson; Vicki Myers; Shivam Nava; Carlos Dyer; Yair Stern; Bob Austin
--- NOTE | 2025-03-30 13:42 | Hospitalist Progress Note ---
Date of Service March 30, 2025 Assessment & Plan (1) Atrial fibrillation with rapid ventricular response: Plan: Complicated UTI Patient with hx of s/p with bilateral retrograde pyelogram and stent placement, right ureteral dilation, left ureteroscopy and laser endopyelotomy on 03/08/2025 Urine analysis suggestive of UTI CT abd on admission interval decrease of left hydronephrosis, Interval improvement in fluid and inflammatory change around the left renal pelvis and left UPJ, which could be due to improving infection, Urine culture growing Acinetobacter Junii on Ceftriaxone, will follow up with final culture and senstivitiy Urology consulted; no plans for intervention PT/OT eval A.fib with RVR- not on AC due to hx of bleeding. on Verapamil, dose decreased last admission due to hypotension. noted to be a.fib with RVR; doesn't seem to tolerate verapamil well as she has episodes of hypotension Started on metoprolol 25mg qid for now with plan to switch to succinate if she tolerates. appreciate cardiology input regarding it. patient was previously on b-harsha which was discontinued given her hx of COPD. she is not in acute excerebration. Diarrhea rule out C. difficile given recent antibiotic Rx- c. diff awaited history idiopathic cardiac arrest/VT- s/p ablation orthostatic hypotension on midodrine-continue hyperlipidemia/statin intolerance- on lipitor,continue asthma/COPD, chronic cough symptoms as per patient CYNTHIA/narcolepsy on CPAP hypothyroidism, euthyroid as of recent outpatient TSH chronic anemia- monitor DVT prophylaxis heparin Full code Time spent evaluating patient, direct bedside care, chart review, placing orders, interpretation of diagnostic studies, discussion with consultants, patient, and family members, as well as other required patient management activities is 50 minutes Please note the above document was generated using voice recognition software. It may contain grammatical, syntax or spelling errors. Any formal questions or concerns about the content, text or information contained within the body of this dictation should be directly addressed to the provider for clarification . Admission and Anticipated Discharge Date Admission Date: March 27, 2025 Subjective Patient seen at bedside. Patient reportedly feels much better. Abdomen pain resolved. However, later in the day patient had atrial fibrillation with RVR with ventricular rate in 150s to 170s with palpitations Review of Systems Review of Systems: All systems reviewed & are unremarkable except as noted in Subjective Physical Exam Physical Exam: Constitutional: WD/WN, vitals as above, NAD, sitting up in bed, pleasant, conversing easily Respiratory: normal respiratory effort, lungs clear to auscultation, no wheeze, rales, rhonchi. Normal insp/exp effort, no accessory muscle use Cardiovascular: RRR, no murmur, no edema Vessels: no JVD or carotid bruit Chest: normal inspection of chest Abdomen: soft, non-tender Skin: no rashes, warm and dry normal turgor Neurologic: PERRL, EOMI, accommodation nl, no face palsy, no dysarthria CN's II- XI intact bilaterally and moves all extremities Psychiatric: A+Ox3, euthymic affect Results & Data Results & Data Vital Signs (Past 12 Hours) Vital Signs Temp Pulse Pulse Resp BP Pulse Ox Pulse Ox 03/30/25 13:07 102 H 18 96 03/30/25 11:34 36.9 C 108 H 17 109/73 94 03/30/25 08:26 93 H 16 98 03/30/25 08:00 36.7 C 88 18 111/70 96 03/30/25 07:01 79 03/30/25 05:49 97 03/30/25 02:40 36.9 C 75 18 106/71 97 O2 Del Method O2 Del Method 03/30/25 13:07 Room Air 03/30/25 11:34 Room Air 03/30/25 08:26 Room Air 03/30/25 08:00 Room Air 03/30/25 07:01 03/30/25 05:49 Room Air 03/30/25 02:40 Room Air
[2025-03-30] MEDS: METOPROLOL TARTRATE 25 MG TAB PO SCH (13:51)
--- NOTE | 2025-03-30 15:10 | Cardiology Consultation ---
Date of Consultation March 30, 2025 Assessment & Plan (1) Atrial fibrillation: (2) Hypotension: (3) Contraindication to anticoagulation therapy: Plan Atrial fibrillation * Previously paroxysmal, now persistent * Echocardiography in March 16, 2025 with moderately dilated left atrium, preserved LV systolic function * Contraindications to anticoagulation * Remote use of beta-harsha therapy discontinued secondary to reactive airway disease * Chronic hypotension limiting therapies, chronically prescribed midodrine * Catheterization in August 2009 with normal coronary arteries Recommendations: * Evaluate for underlying cause of the recently observed rapid ventricular re sponse. * Check magnesium * Recommend rate control * Agree with retrial of beta-harsha therapy, titrating metoprolol tartrate then transitioning to metoprolol succinate * Resume verapamil if beta-harsha therapy is not well-tolerated. * Consider digoxin, pending response to the above * Patient with contraindications to anticoagulation * Referral for left atrial appendage occlusion discussed; patient would need to be able to tolerate at least dual antiplatelet therapy Supervising Physician Co-Signing Physician Notes Patient seen and examined. Past medical history, surgical history, social history and family history have been reviewed. The medical record and all the above studies have been reviewed. Case DW EVELIN including management. Atrial Fib with RVR UTI s/p with bilateral retrograde pyelogram and stent placement, right ureteral dilation, left ureteroscopy and laser endopyelotomy on 03/08/2025 Diarrhea rule out C. difficile Hypothyroidism COPD HLD CYNTHIA metoprolol adjust rate control meds keeping HR between 60 to 100 BPM and systolic BP between 100-140 mmHg increase fluid intake abx as per primary team correct and f/u electrolytes not on anticoagulation due to bleeding risk f/u renal function keep patient euvolemic DVT prophylaxis may use digoxin if soft BP Keep K between 4 and 4.5 and Mg between 2 and 2.5 when on Digoxin History of Present Illness Attending Physician: Tito Rodriguez MD History of Present Illness Lucinda Hackett is a 64-year-old female who presented to the [facility] ER on March 27, 2025 with generalized weakness, suspected UTI, atrial fibrillation with a rapid ventricular response. Patient's status post March 08, 2025 urological procedure (cystoscopy with bilateral retrograde pyelogram with stent placement, right ureter dilatation, left ureteroscopy with laser endoplelotomy), hospitalized March 11, 2025 to March 18, 2025 with severe sepsis. EKG dated November 10, 2024 revealed normal sinus rhythm at 77 bpm. One available EKG obtained during prior hospitalization 03/11 to 03/18, on March 11, 2025, revealed atrial fibrillation with a ventricular rate of 98 bpm. Prior to arrival verapamil 180 mg/day was decreased to 120 mg/day due to hypotension; midodrine dosing increased to 5 mg 3 times per day Resting echocardiography in March 16, 2025 was notable for moderately dilated left atrium, mild concentric LVH, mild mitral regurgitation, moderate tricuspid regurgitation, preserved LV systolic function with LVEF 55 to 60%. Doppler findings were not suggestive of pulmonary hypertension. EKG on presentation this admission revealed atrial fibrillation with a rapid ventricular response, 114 bpm with nonspecific STT wave abnormality. Personal review of patient's hospital education coordinator reveals atrial fibrillation throughout this entire hospital course, heart rates varying considerably initially with adequate rate control though with rapid ventricular response noted since 11 AM this morning. Verapamil has been discontinued and patient has been prescribed metoprolol tartrate 25 mg 4 times daily with plans to switch to succinate as tolerated. Patient aware of atrial fibrillation with rapid ventricular response, describing tachypalpitations with associated chest tightness, tiredness. Breathing is okay. Patient with chronic mild orthopnea without PND. No lower extremity peripheral edema. Cardiac Problem List: Remote history of syncope and ventricular tachycardia circa 1998 Prior use of beta-harsha therapy discontinued secondary to significant reactive airways disease Paroxysmal atrial fibrillation Contraindications to anticoagulation, symptomatic anemia, iron deficiency, undefined Normal coronary artery via 08/28/2009 cardiac catheterization ([facility]) Chronic hypotension Dyslipidemia with statin intolerance Family History: Father's history unknown, dying in [place]. Mother at the age of 76, history of atrial fibrillation and CVA, also type 2 diabetes mellitus. Half brother recently with CHF. One sister and one half sister without cardiac issues. One half brother with bipolar schizophrenia Social History: Never smoker. No smokeless tobacco. No alcohol. No illegal/illicit drug use. 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 Lives in [facility]. Allergies Allergy/AdvReac Type Severity Reaction Status Date / Time bee venom protein (honey bee) Allergy Severe ANAPHYLAXIS Verified 03/27/25 18:41 coconut Allergy Severe RASH; SOB Verified 03/27/25 18:41 gluten Allergy Severe CELIAC'S Verified 03/27/25 18:41 latex Allergy Severe Anaphylaxis Verified 03/27/25 18:41 Penicillins Allergy Severe Anaphylaxis Verified 03/27/25 18:41 Sulfa (Sulfonamide Allergy Severe Anaphylaxis Verified 03/27/25 18:41 Antibiotics) ROBER Inhibitors Allergy Intermediate RASH/TACHYC Verified 03/27/25 18:41 ARDIA cefaclor Allergy Intermediate CECLOR--RASH/UPSET Verified 03/27/25 18:41 STOMACH egg Allergy Intermediate RASH & Verified 03/27/25 18:41 Bloating Influenza Virus Vaccines Allergy Intermediate rash and Verified 03/27/25 18:41 bloating tetracycline Allergy Intermediate NAUSEA/VOMI Verified 03/27/25 18:41 TING/RASH Quinolones Allergy Unknown ALLERGY TO Verified 03/27/25 18:41 AVELOX ,CAN TAKE CIPRO OR LEVAQUIN W/O RXN Beta-Blockers AdvReac Intermediate intolerance Verified 03/27/25 18:41 (Beta-Adrenergic Bloc as per records lactose AdvReac Intermediate BLOATING; Verified 03/27/25 18:41 DIARRHEA; VOMITING Home Medications Medication Instructions Recorded Confirmed Type aspirin 81 mg tablet,delayed 81 mg PO QAM 09/14/24 03/27/25 History release atorvastatin 20 mg tablet 20 mg PO HS 09/14/24 03/27/25 History cimetidine 400 mg tablet 400 mg PO BID 09/14/24 03/27/25 History fexofenadine 180 mg tablet 180 mg PO QAM 09/14/24 03/27/25 History fluticasone 250 mcg-salmeterol 50 1 inh inhalation BID 09/14/24 03/27/25 History mcg/dose blistr powdr for inhalation (Advair Diskus) folic acid 1 mg tablet 1 mg PO BID 09/14/24 03/27/25 History hyoscyamine sulfate 0.375 mg 0.375 mg PO Q6H PRN Abdominal Pain 09/14/24 History tablet,extended release,12 hr ipratropium 20 mcg-albuterol 100 1 puff inhalation QID PRN 09/14/24 03/27/25 History mcg/actuation mist for inhalation Shortness Of Breath Or Wheezing (Combivent Respimat) levothyroxine 100 mcg capsule 100 mcg PO QAM 09/14/24 03/27/25 History montelukast 10 mg tablet 10 mg PO HS 09/14/24 03/27/25 History multivitamin 1 tab PO QAM 09/14/24 03/27/25 History rabeprazole 20 mg tablet,delayed 40 mg PO BID 09/14/24 03/27/25 History release (AcipHex) sucralfate 1 gram tablet 1 g PO ACHS 09/14/24 03/27/25 History topiramate 100 mg tablet 100 mg PO BID 09/14/24 03/27/25 History CPAP Machine 09/15/24 03/11/25 History amitriptyline 75 mg tablet 75 mg PO HS 09/15/24 03/27/25 History azelastine 137 mcg (0.1 %) nasal 1 spray intranasal BID 09/15/24 03/27/25 History spray levalbuterol HCl 1.25 mg/3 mL 1.25 mg inhalation Q6H 09/15/24 03/27/25 History solution for nebulization mometasone 50 mcg/actuation nasal 2 spray intranasal BID 09/15/24 03/27/25 History spray ondansetron 4 mg disintegrating 4 mg PO Q8H PRN Nausea And Vomiting 09/15/24 03/27/25 History tablet polyethylene glycol 3350 17 gram 17 g PO QAM 09/15/24 03/27/25 History oral powder packet (Miralax) oxybutynin chloride 5 mg tablet 5 mg PO Q8H PRN bladder spasms #9 03/08/25 03/27/25 Rx tabs epinephrine 0.3 mg/0.3 mL 0.3 mg subcut UD PRN Anaphylaxis 03/11/25 03/27/25 History injection, auto-injector midodrine 5 mg tablet 5 mg PO TID #90 tabs 03/18/25 03/27/25 Rx verapamil 120 mg tablet,extended 120 mg PO DAILY #30 tabs 03/18/25 03/27/25 Rx release ciprofloxacin HCl 500 mg tablet 500 mg PO BID 7 days #14 tabs 03/30/25 Rx Patient History Medical History Elevated troponin NSVT (nonsustained ventricular tachycardia) - hx of nonsustained VT (isolated run on Zio without associated symptoms per cardio); intolerance to beta blockers Renal cyst per medical record, pt unsure Depression Port-A-Cath in place Bilateral hydronephrosis Chronic kidney disease stage 3 or 4 - follows with [facility] Nephrology Sari fish Hx of gastric ulcer Chronic gastritis GERD (gastroesophageal reflux disease) Migraines Chronic nausea Seasonal allergies Hypothyroidism Paroxysmal A-fib - follows with Dr. Aguirre, takes asa daily (not anticoagulated due to anemia and fall risk per cardio records ) - patient referred at last cardio appt 10/2024 for evaluation for left appendage occluder device Celiac disease Hx of renal calculi no surgical intervention needed Poor intravenous access PSVT (paroxysmal supraventricular tachycardia) - no current issues per patient Hx MRSA infection 1999 dx nose septum wound 2019 dx in lungs Gastroparesis IBS (irritable bowel syndrome) Dyslipidemia CHARLES (iron deficiency anemia) History of COVID-19 has had ~5 times - last had ~early 2023, no hospitalization. Orthostatic hypotension Follows with [facility] cardiology On midodrine Chronic anemia frequent iron and blood transfusions. Hypertension hx --> pt reports she is being treated for hypotension Adrenal cyst monitoring unchanged per 2024 imaging; benign per PCP Chronic back pain Degenerative disc disease Osteoarthritis Anxiety Mitral valve prolapse follows with Dr Aguirre Narcolepsy Chronic obstructive pulmonary disease uncontrolled, uses inhalers daily Sleep apnea CPAP + 2lpm of oxygen Surgical History H/O insertion of central venous access port power port placed due to poor IV access + frequent blood draws/iron/blood transfusions S/P spinal fusion C1 through L3 or L4 (~2021 at [facility]) History of cardioversion ~2019 History of cardiac radiofrequency ablation ~2014 [facility] History of bronchoscopy in the S/P trigger finger release right hand History of ankle surgery bilateral ankle repair with hardware H/O hand surgery with hardware (left) S/P GLENNY-BSO S/P surgery on nasal septum "collapsed septum" s/p post op infection that "ate away the septum" S/P nasal surgery multiple Hx of cholecystectomy History of arthroscopic knee surgery left Hx of cardiac cath "2009 - normal coronaries" (pt denies) History of esophagogastroduodenoscopy (EGD) History of colonoscopy History of dilatation and curettage Family History Other No family history of adverse response to anesthesia Social History (Reviewed 03/30/25 @ 15:17 by Ayaz Cardoso Smoking Status: Never smoker Second Hand Exposure: No; Do You Dip or Chew Tobacco: No; Tobacco Cessation Education Requested by Patient: No Hx Alcohol Use: No Hx Substance Use: No Preferred Language: Greek Communication Ability: Effective Artist Agent Required: No Beliefs That Will Affect Care: None marital status: Current Living Situation: Spouse and Other Current Living Situation Comment: 4yr old twins at home Other Information That Helps Us Care for You: No Feels Safe at Home: Yes Safety Concerns: Feels Safe At This Time Assistive Devices: CPAP and Oxygen - at Night Review of Systems Review of Systems: Complete Review of Systems is as stated above, negative, or noncontributory. Physical Exam Physical Exam: General: A&Ox3. NAD. HENT: Normocephalic. Atraumatic. Eyes: PER. Conjunctiva pink, sclera pale. Neck: No carotid bruits. No JVD. Heart: Irregularly irregular at 110 bpm. No murmur. No rub. Lungs: Diminished. Decreased. No wheeze. Abdomen: +BS. Soft. Nontender. No masses or organomegaly. Extremities: No clubbing, cyanosis, or edema. Limited neurological examination is without focal deficits. Pulses: Posterior tibial=2/4. Results & Data Vital Signs (Past 12 Hours) Vital Signs Temp Pulse Pulse Resp BP Pulse Ox Pulse Ox 03/30/25 13:51 167 H 03/30/25 13:07 102 H 18 96 03/30/25 11:34 36.9 C 108 H 17 109/73 94 03/30/25 08:26 93 H 16 98 03/30/25 08:00 36.7 C 88 18 111/70 96 03/30/25 07:01 79 03/30/25 05:49 97 O2 Del Method O2 Del Method 03/30/25 13:51 03/30/25 13:07 Room Air 03/30/25 11:34 Room Air 03/30/25 08:26 Room Air 03/30/25 08:00 Room Air 03/30/25 07:01 03/30/25 05:49 Room Air Laboratory Results CBC 03/30/25 Range/Units 05:52 WBC 5.19 (4.8-10.8) K/ul RBC 3.20 L (4.20-5.40) M/uL Hgb 10.1 L (12.0-16.0) g/dl Hct 32.1 L (37.0-47.0) % Plt Count 308 (130-400) K/uL Neut # (Auto) 3.56 (1.40-6.50) K/uL Lymph # (Auto) 1.10 L (1.20-3.40) K/uL [place] # (Auto) 0.32 (0.11-0.59) K/uL Eos # (Auto) 0.15 (0.00-0.50) K/uL Baso # (Auto) 0.04 (0.00-0.20) K/uL Comprehensive Metabolic Panel 03/30/25 Range/Units 05:52 Sodium 141 (136-145) mmol/L Potassium 3.9 (3.5-5.1) mmol/L Chloride 113 H (98-107) mmol/L Carbon Dioxide 23 (21-32) mmol/L BUN 15 (6-23) mg/dl Creatinine 0.89 (0.6-1.2) mg/dl Glucose 102 H (70-99(Fasting)) mg/dl Calcium 8.7 (8.6-10.3) mg/dl Intake and Output 03/30/25 03/30/25 03/30/25 06:59 14:59 22:59 Intake Total 450 / 1880 800 / 800 Output Total 800 / 1400 650 / 650 Balance -350 / 480 150 / 150 Intake: IV 50 / 550 cefTRIAXone SODIUM 2,000 mg In 50 / 50 50 ml @ 100 mls/hr IV Q24H [facility] Rx#:[id number] Oral 400 / 1330 800 / 800 Output: Urine Amount (Catheter) 800 / 1400 650 / 650 Jose/Indwelling 800 / 1400 650 / 650 Other: Weight 58.712 kg Weight Measurement Method Built in [facility] Diagnostic Findings Telemetry: Atrial fibrillation throughout. Heart rates range from a low of 60 bpm to a high of 170 bpm. No periods of sinus. No pauses. PG Care Time/CCT Total # of Minutes Spent Total Time Spent with Patient: Total time spent is greater than 50% in coordination of care (as documented) at patient's floor/unit and/or counseling patient. I spent a total of 70 minutes on the date of service in preparation, delivery, and documentation of the care provided to this patient excluding any time spent in the performance of separately billed services. This visit was a split-shared visit with the substantive portion of the medical decision making performed by the supervising drop worker/billing provider. Coding Level of Care Code 83029 IN/OBS CONSULT LVL 5,80M Diagnoses Atrial fibrillation I48.91 Hypotension I95.9 Contraindication to anticoagulation therapy Z53.09
--- NOTE | 2025-03-31 06:55 | Electrocardiogram Report ---
Test Reason : Blood Pressure : */* mmHG Vent. Rate : 114 BPM Atrial Rate : * BPM P-R Int : * ms QRS Dur : 54 ms QT Int : 312 ms P-R-T Axes : * -9 142 degrees QTcB Int : 430 ms Atrial fibrillation with rapid ventricular response Nonspecific T wave abnormality Abnormal ECG When compared with ECG of 11-Mar-2025 22:31, No significant change Confirmed by Vahid James ([id number]) on 03/31/2025 6:55:11 AM Referred By: REFERRED SELF Confirmed By: Vahid James
[2025-03-31] MEDS: METOPROLOL SUCC 25MG EXT REL TAB PO SCH (08:51)
--- NOTE | 2025-03-31 12:37 | Hospitalist Progress Note ---
Date of Service March 31, 2025 Assessment & Plan (1) Atrial fibrillation with rapid ventricular response: Plan: Complicated UTI Patient with hx of s/p with bilateral retrograde pyelogram and stent placement, right ureteral dilation, left ureteroscopy and laser endopyelotomy on 03/08/2025 Urine analysis suggestive of UTI CT abd on admission interval decrease of left hydronephrosis, Interval improvement in fluid and inflammatory change around the left renal pelvis and left UPJ, which could be due to improving infection, Urine culture growing Acinetobacter Junii Antibiotic changed to ciprofloxacin; plan to treat for 3 more days. A.fib with RVR- not on AC due to hx of bleeding. on Verapamil, dose decreased last admission due to hypotension. noted to be a.fib with RVR; doesn't seem to tolerate verapamil well as she has episodes of hypotension Metoprolol changed to 25mg twice a day; titrate the dose based on ventricular rate and blood pressure. Diarrhea rule out C. difficile given recent antibiotic Rx- denies diarrhea at this time. history idiopathic cardiac arrest/VT- s/p ablation orthostatic hypotension on midodrine-continue hyperlipidemia/statin intolerance- on lipitor,continue asthma/COPD, chronic cough symptoms as per patient CYNTHIA/narcolepsy on CPAP hypothyroidism, euthyroid as of recent outpatient TSH chronic anemia- monitor DVT prophylaxis heparin Full code Time spent evaluating patient, direct bedside care, chart review, placing orders, interpretation of diagnostic studies, discussion with consultants, patient, and family members, as well as other required patient management activities is 50 minutes Please note the above document was generated using voice recognition software. It may contain grammatical, syntax or spelling errors. Any formal questions or concerns about the content, text or information contained within the body of this dictation should be directly addressed to the provider for clarification . Admission and Anticipated Discharge Date Admission Date: March 27, 2025 Subjective Patient seen and examined at bedside. She is comfortable. Telemetry shows well-controlled ventricular rate. Review of Systems Review of Systems: All systems reviewed & are unremarkable except as noted in Subjective Physical Exam Physical Exam: Constitutional: WD/WN, vitals as above, NAD, sitting up in bed, pleasant, conversing easily Respiratory: normal respiratory effort, lungs clear to auscultation, no wheeze, rales, rhonchi. Normal insp/exp effort, no accessory muscle use Cardiovascular: RRR, no murmur, no edema Vessels: no JVD or carotid bruit Chest: normal inspection of chest Abdomen: soft, non-tender Skin: no rashes, warm and dry normal turgor Neurologic: PERRL, EOMI, accommodation nl, no face palsy, no dysarthria CN's II- XI intact bilaterally and moves all extremities Psychiatric: A+Ox3, euthymic affect Results & Data Results & Data Vital Signs (Past 12 Hours) Vital Signs Temp Pulse Resp BP BP Pulse Ox O2 Del Method 03/31/25 11:44 36.6 C 98 H 18 88/56 L 97 Room Air 03/31/25 08:47 114 H 100/65 03/31/25 08:02 36.6 C 85 16 90/56 L 96 Room Air 03/31/25 07:24 84 16 96 Room Air 03/31/25 04:41 36.8 C 75 17 112/69 95 Room Air 03/31/25 01:40 104/59 L 03/31/25 00:43 36.6 C 84 17 100/69 98 Room Air
--- NOTE | 2025-03-31 19:36 | Cardiology Progress Note ---
Date of Service March 31, 2025 Assessment & Plan (1) Atrial fibrillation: (2) Hypotension: (3) Contraindication to anticoagulation therapy: Plan Atrial Fib with RVR -> CVR UTI s/p with bilateral retrograde pyelogram and stent placement, right ureteral dilation, left ureteroscopy and laser endopyelotomy on 03/08/2025 Diarrhea rule out C. difficile - resolved diarrhea Hypothyroidism COPD HLD CYNTHIA metoprolol adjust rate control meds keeping HR between 60 to 100 BPM and systolic BP between 100-140 mmHg increase fluid intake abx as per primary team correct and f/u electrolytes not on anticoagulation due to bleeding risk f/u renal function keep patient euvolemic DVT prophylaxis may use digoxin if soft BP Keep K between 4 and 4.5 and Mg between 2 and 2.5 when on Digoxin Admission and Anticipated Discharge Date Admission Date: March 27, 2025 Subjective Patient on exam is lying in bed in NAD; no c/o cp, sob, palpitations, dizziness, LOC Telemetry shows well-controlled ventricular rate. Review of Systems Review of Systems: Complete Review of Systems is as stated above, negative, or noncontributory. Physical Exam Physical Exam: General: A&Ox3. NAD. HENT: Normocephalic. Atraumatic. Eyes: Conjunctiva pink, sclerae pale. Neck: No carotid bruits. No JVD. Heart: Irregularly irregular sys murmur. No rub. Lungs: no rales, No wheeze. Abdomen: +BS. Soft. Nontender. No masses or organomegaly. Extremities: No clubbing, cyanosis, or edema. Limited neurological examination is without focal deficits. Results & Data Vital Signs (Past 12 Hours) Vital Signs Temp Pulse Pulse Resp BP BP Pulse Ox 03/31/25 19:30 37.1 C 77 16 100/66 95 03/31/25 16:05 37.0 C 83 20 109/68 92 03/31/25 15:40 94 H 03/31/25 13:01 79 16 95 03/31/25 11:44 36.6 C 98 H 18 88/56 L 97 03/31/25 08:47 114 H 100/65 03/31/25 08:02 36.6 C 85 16 90/56 L 96 O2 Del Method 03/31/25 19:30 Room Air 03/31/25 16:05 Room Air 03/31/25 15:40 03/31/25 13:01 Room Air 03/31/25 11:44 Room Air 03/31/25 08:47 03/31/25 08:02 Room Air Laboratory Results Laboratory Results - last 48 hr 03/30/25 05:52 WBC 5.19 RBC 3.20 L Hgb 10.1 L Hct 32.1 L MCV 100.3 H MCH 31.6 MCHC 31.5 L RDW Std Deviation 62.0 H RDW Coeff of Reginaldo 16.8 H Plt Count 308 MPV 9.8 Immature Gran % (Auto) 0.4 Neut % (Auto) 68.5 Lymph % (Auto) 21.2 [place] % (Auto) 6.2 Eos % (Auto) 2.9 Baso % (Auto) 0.8 Neut # (Auto) 3.56 Lymph # (Auto) 1.10 L [place] # (Auto) 0.32 Eos # (Auto) 0.15 Baso # (Auto) 0.04 Immature Gran # (Auto) 0.02 Sodium 141 Potassium 3.9 Chloride 113 H Carbon Dioxide 23 Anion Gap 5 BUN 15 Creatinine 0.89 Est Cr Clr Drug Dosing 58.2 eGFR 72.80 BUN/Creatinine Ratio 16.9 Glucose 102 H Calcium 8.7 Diagnostic Findings Intake and Output 03/31/25 03/31/25 03/31/25 06:59 14:59 22:59 Intake Total 50 / 850 Output Total 1600 / 1600 Balance 50 / -750 -1600 / -1600 Intake: IV 50 / 50 cefTRIAXone SODIUM 2,000 mg In 50 / 50 50 ml @ 100 mls/hr IV Q24H PENDING SALE TO [facility] Rx#:[id number] Output: Urine Amount (Catheter) 1600 / 1600 External 650 / 650 Jose/Indwelling 950 / 950 Other: Weight 58.7 kg Laboratory Results WBC 5.19 K/ul (4.8-10.8) 03/30/25 05:52 RBC 3.20 M/uL (4.20-5.40) L 03/30/25 05:52 Hgb 10.1 g/dl (12.0-16.0) L 03/30/25 05:52 Hct 32.1 % (37.0-47.0) L 03/30/25 05:52 MCV 100.3 fL (80.0-100.0) H 03/30/25 05:52 MCH 31.6 pg (25.0-34.0) 03/30/25 05:52 MCHC 31.5 g/dL (32.0-36.0) L 03/30/25 05:52 RDW Std Deviation 62.0 fL (36.4-46.3) H 03/30/25 05:52 RDW Coeff of Reginaldo 16.8 % (11.5-14.5) H 03/30/25 05:52 Plt Count 308 K/uL (130-400) 03/30/25 05:52 MPV 9.8 fL (9.4-12.4) 03/30/25 05:52 Immature Gran % (Auto) 0.4 % 03/30/25 05:52 Neut % (Auto) 68.5 % 03/30/25 05:52 Lymph % (Auto) 21.2 % 03/30/25 05:52 [place] % (Auto) 6.2 % 03/30/25 05:52 Eos % (Auto) 2.9 % 03/30/25 05:52 Baso % (Auto) 0.8 % 03/30/25 05:52 Neut # (Auto) 3.56 K/uL (1.40-6.50) 03/30/25 05:52 Lymph # (Auto) 1.10 K/uL (1.20-3.40) L 03/30/25 05:52 [place] # (Auto) 0.32 K/uL (0.11-0.59) 03/30/25 05:52 Eos # (Auto) 0.15 K/uL (0.00-0.50) 03/30/25 05:52 Baso # (Auto) 0.04 K/uL (0.00-0.20) 03/30/25 05:52 Immature Gran # (Auto) 0.02 K/uL (0.01-0.20) 03/30/25 05:52 PT 12.0 Seconds (9.0-12.0) 03/27/25 16:31 INR 1.1 (0.9-1.1) 03/27/25 16:31 Sodium 141 mmol/L (136-145) 03/30/25 05:52 Potassium 3.9 mmol/L (3.5-5.1) 03/30/25 05:52 Chloride 113 mmol/L (98-107) H 03/30/25 05:52 Carbon Dioxide 23 mmol/L (21-32) 03/30/25 05:52 Anion Gap 5 (3-11) 03/30/25 05:52 BUN 15 mg/dl (6-23) 03/30/25 05:52 Creatinine 0.89 mg/dl (0.6-1.2) 03/30/25 05:52 Est Cr Clr Drug Dosing 58.2 ml/min 03/30/25 05:52 eGFR 72.80 03/30/25 05:52 BUN/Creatinine Ratio 16.9 (10-20) 03/30/25 05:52 Glucose 102 mg/dl (70-99(Fasting)) H 03/30/25 05:52 Lactate 1.0 mmol/L (0.4-2.0) 03/27/25 17:28 Calcium 8.7 mg/dl (8.6-10.3) 03/30/25 05:52 Magnesium 1.8 mg/dl (1.7-2.4) 03/27/25 16:31 Total Bilirubin 0.5 mg/dl (0.2-1.0) 03/27/25 16:31 AST 20 U/L (13-39) 03/27/25 16:31 ALT 110 U/L (7-52) H 03/27/25 16:31 Alkaline Phosphatase 626 U/L (34-104) H 03/27/25 16:31 Troponin I High Sens 13.1 pg/ml (0-14) 03/27/25 16:31 Total Protein 6.9 gm/dl (6.0-8.3) 03/27/25 16:31 Albumin 3.6 gm/dl (3.4-5.0) 03/27/25 16:31 Globulin 3.3 gm/dl (2.5-4.0) 03/27/25 16:31 Albumin/Globulin Ratio 1.1 (0.9-2) 03/27/25 16:31 Procalcitonin 2.46 ng/ml (0-0.5) H 03/27/25 16:31 Urine Color Yellow 03/27/25 18:49 Urine Appearance Cloudy (Clear) A 03/27/25 18:49 Urine pH 5.5 (4.5-7.5) 03/27/25 18:49 Ur Specific [place] > 1.045 (1.000-1.030) H 03/27/25 18:49 Urine Protein 3+ (Negative) H 03/27/25 18:49 Urine Glucose (UA) Negative (Negative) 03/27/25 18:49 Urine Ketones Negative (Negative) 03/27/25 18:49 Urine Blood 3+ (Negative) H 03/27/25 18:49 Urine Nitrite Negative (Negative) 03/27/25 18:49 Urine Bilirubin Negative (Negative) 03/27/25 18:49 Urine Urobilinogen Negative (Negative) 03/27/25 18:49 Ur Leukocyte Esterase 1+ (Negative) H 03/27/25 18:49 Urine WBC (Auto) >50 /hpf (0-5) H 03/27/25 18:49 Urine RBC (Auto) >20 /hpf (0-2) H 03/27/25 18:49 U Hyaline Cast (Auto) >20 /lpf (0-2) H 03/27/25 18:49 U Epithel Cells (Auto) 0-2 /hpf (0-2) 03/27/25 18:49 Urine Bacteria (Auto) 1+ (None Seen) H 03/27/25 18:49 Urine Mucus Present (None Prsent) A 03/27/25 18:49 Urine Comment 03/27/25 18:49 Adenovirus (PCR) Not Detected (NotDetected) 03/27/25 18:17 B. pertussis DNA (PCR) Not Detected (NotDetected) 03/27/25 18:17 B.parapertussis DNA PCR Not Detected (NotDetected) 03/27/25 18:17 C. pneumoniae DNA (PCR) Not Detected (NotDetected) 03/27/25 18:17 Coronavirus OC43 (PCR) Not Detected (NotDetected) 03/27/25 18:17 Coronavirus HKU1 (PCR) Not Detected (NotDetected) 03/27/25 18:17 Coronavirus 229E (PCR) Not Detected (NotDetected) 03/27/25 18:17 SARS-CoV-2 (PCR) Not Detected (NotDetected) 03/27/25 18:17 Coronavirus NL63 (PCR) Not Detected (NotDetected) 03/27/25 18:17 Human Metapneumovir PCR Not Detected (NotDetected) 03/27/25 18:17 Influenza Type A (PCR) Not Detected (NotDetected) 03/27/25 18:17 Influenza Type B (PCR) Not Detected (NotDetected) 03/27/25 18:17 M. pneumoniae (PCR) Not Detected (NotDetected) 03/27/25 18:17 Parainfluenza 1 (PCR) Not Detected (NotDetected) 03/27/25 18:17 Parainfluenza 2 (PCR) Not Detected (NotDetected) 03/27/25 18:17 Parainfluenza 3 (PCR) Not Detected (NotDetected) 03/27/25 18:17 Parainfluenza 4 (PCR) Not Detected (NotDetected) 03/27/25 18:17 RSV (PCR) Not Detected (NotDetected) 03/27/25 18:17 Entero/Rhino (PCR) Not Detected (NotDetected) 03/27/25 18:17 Blood Type A Positive 03/27/25 19:52 Antibody Screen POSITIVE A 03/27/25 19:52 Antibody Identification Anti-e 03/27/25 19:52 Antibody ID Comment 03/27/25 19:52 Impressions Abdomen/Pelvis CT 03/27/25 17:04 Clinical History: Gross hematuria Technique: Axial computed tomography images were obtained of the abdomen and pelvis after the administration of intravenous contrast. Comparison is made to the prior examination dated 03/11/2025. Findings: The liver is overall of normal size, attenuation, and contour with no sign of cirrhosis or significant fatty infiltration. No liver mass lesion is seen. The portal vein is patent. The gallbladder has been removed. There is mild bile duct dilatation that is likely due to the postcholecystectomy state The spleen is of normal size. No focal splenic lesion is evident. The pancreas appears normal with no sign of acute or chronic pancreatitis and no mass lesion noted. The pancreatic duct is of normal caliber. There is an unchanged 3 cm left adrenal nodule, likely a benign adenoma. The right adrenal gland appears normal Bilateral ureteral stents are again seen. There is mild left hydronephrosis, less severe than before. There has been interval decrease in fluid and soft tissue stranding around the left renal pelvis and left ureteropelvic junction. The previously seen air in this area has resolved. There is apparent mild wall thickening of the left renal collecting system and left renal pelvis. No definite renal mass lesion is identified. There are small bilateral renal cyst, measuring up to 1.2 cm. The aorta is of normal caliber. No abdominal adenopathy is seen. The stomach appears normal. There is no sign of small bowel obstruction. The colon appears unremarkable. The appendix appears normal also. No free intraperitoneal fluid or air is identified. The bladder is decompressed, containing a Jose catheter. The iliac arteries are of normal caliber. No pelvic adenopathy is noted. The uterus has been removed The lungs bases appear clear. Mild thoracolumbar degenerative disc disease is seen. No fracture is identified. No focal osseous lesion is seen Impression: 1. Interval decrease in left hydronephrosis with mild hydronephrosis remaining 2. Interval improvement in fluid and inflammatory change around the left renal pelvis and left UPJ, which could be due to improving infection, resolved perforation, or other improving inflammation 3.. Mild wall thickening of the left renal collecting system. While this could be reactive, infection is also possible. There is no clear pyelonephritis 4. Bilateral renal cysts 5. Unchanged bilateral ureteral stents 6. Unchanged 3 cm left adrenal lesion, likely a benign adenoma ACT 112: Positive. There are findings on this exam that require communication between the performing entity and the patient following Patient Test Result Information Act ([place] ACT 112) guidelines. Electronically signed by Darinel Hilliard 03-27-2025 6:34 PM Chest X-Ray 03/27/25 17:04 Chest radiograph, one view History: Cough Comparison: 03/12/2025 Findings: Single AP view of the chest performed. No focal consolidation or pleural effusion. No pneumothorax. Right chest wall port with catheter tip at the mid SVC. The cardiomediastinal silhouette is within normal limits. Normal pulmonary vascularity. No evidence for lymphadenopathy. No visualized bony or soft tissue abnormality. There are chronic left-sided rib fracture deformities. Impression: Normal chest radiograph Electronically signed by Lai Gimenez 03-27-2025 5:48 PM Liver Ultrasound 03/28/25 08:02 US liver CLINICAL HISTORY: increased ALP COMPARISON STUDY: CT scan yesterday FINDINGS: Pancreas is obscured by bowel gas. Gallbladder is surgically absent. Liver demonstrates mild diffusely increased echogenicity. Liver measures approximately 15 cm. There is normal direction of flow in the portal vein. There is stable dilatation of the common bile duct measuring 1.3 cm greatest diameter, commonly seen after cholecystectomy. Right kidney shows no hydronephrosis. No ascites. IMPRESSION: Mild fatty liver. ACT 112: Negative or not required by law. Electronically signed by: Fred Fisher M.D. 03/28/2025 10:15 AM Medications Administered Home Medications Medication Instructions Recorded Confirmed Last Taken aspirin 81 mg tablet,delayed 81 mg PO QAM 09/14/24 03/27/25 03/27/25 release atorvastatin 20 mg tablet 20 mg PO HS 09/14/24 03/27/25 03/26/25 cimetidine 400 mg tablet 400 mg PO BID 09/14/24 03/27/25 03/27/25 fexofenadine 180 mg tablet 180 mg PO QAM 09/14/24 03/27/25 03/27/25 fluticasone 250 mcg-salmeterol 50 1 inh inhalation BID 09/14/24 03/27/25 03/27/25 mcg/dose blistr powdr for inhalation (Advair Diskus) folic acid 1 mg tablet 1 mg PO BID 09/14/24 03/27/25 03/27/25 hyoscyamine sulfate 0.375 mg 0.375 mg PO Q6H PRN Abdominal Pain 09/14/24 03/27/25 Unknown tablet,extended release,12 hr ipratropium 20 mcg-albuterol 100 1 puff inhalation QID PRN 09/14/24 03/27/25 03/07/25 12:00 mcg/actuation mist for inhalation Shortness Of Breath Or Wheezing (Combivent Respimat) levothyroxine 100 mcg capsule 100 mcg PO QAM 09/14/24 03/27/25 03/27/25 montelukast 10 mg tablet 10 mg PO HS 09/14/24 03/27/25 03/26/25 multivitamin 1 tab PO QAM 09/14/24 03/27/25 03/27/25 rabeprazole 20 mg tablet,delayed 40 mg PO BID 09/14/24 03/27/25 03/27/25 release (AcipHex) sucralfate 1 gram tablet 1 g PO ACHS 09/14/24 03/27/25 03/27/25 topiramate 100 mg tablet 100 mg PO BID 09/14/24 03/27/25 03/27/25 CPAP Machine 09/15/24 03/11/25 Unknown amitriptyline 75 mg tablet 75 mg PO HS 09/15/24 03/27/25 03/26/25 azelastine 137 mcg (0.1 %) nasal 1 spray intranasal BID 09/15/24 03/27/25 03/27/25 spray levalbuterol HCl 1.25 mg/3 mL 1.25 mg inhalation Q6H 09/15/24 03/27/25 03/27/25 solution for nebulization mometasone 50 mcg/actuation nasal 2 spray intranasal BID 09/15/24 03/27/25 03/27/25 spray ondansetron 4 mg disintegrating 4 mg PO Q8H PRN Nausea And Vomiting 09/15/24 03/27/25 03/07/25 08:00 tablet polyethylene glycol 3350 17 gram 17 g PO QAM 09/15/24 03/27/25 03/27/25 oral powder packet (Miralax) oxybutynin chloride 5 mg tablet 5 mg PO Q8H PRN bladder spasms #9 03/08/25 03/27/25 Unknown tabs epinephrine 0.3 mg/0.3 mL 0.3 mg subcut UD PRN Anaphylaxis 03/11/25 03/27/25 Unknown injection, auto-injector midodrine 5 mg tablet 5 mg PO TID #90 tabs 03/18/25 03/27/25 03/27/25 verapamil 120 mg tablet,extended 120 mg PO DAILY #30 tabs 03/18/25 03/27/25 03/27/25 release ciprofloxacin HCl 500 mg tablet 500 mg PO BID 7 days #14 tabs 03/30/25 Unknown Active Medications Generic Name Dose Route Start Last Admin Trade Name Freq PRN Reason Stop Dose Admin Acetaminophen 500 mg 03/27/25 21:11 03/29/25 17:20 Acetaminophen 500 Mg Tab PO 04/26/25 21:10 500 mg Q6H PRN Administration fever/pain Amitriptyline HCl 75 mg 03/27/25 21:50 03/30/25 20:41 Amitriptyline Hcl 25 Mg Tab PO 04/26/25 21:49 75 mg HS JAYSHREE Administration Atorvastatin Calcium 20 mg 03/28/25 21:00 03/30/25 20:41 Atorvastatin 20 Mg Tab PO 04/27/25 20:59 20 mg HS JAYSHREE Administration Azelastine HCl 1 sprays 03/27/25 22:00 03/31/25 08:52 Azelastine Hcl 0.1% Nasal 200 Sprays/27,400 Mcg Btl NA 04/26/25 21:59 1 sprays BID JAYSHREE Administration Famotidine 40 mg 03/27/25 21:50 03/31/25 08:52 Famotidine 40 Mg Tablet PO 04/26/25 21:49 40 mg DAILY JAYSHREE Administration Fexofenadine HCl 180 mg 03/28/25 09:00 03/31/25 08:52 Fexofenadine Hcl 180 Mg Tab PO 04/27/25 08:59 180 mg QAM JAYSHREE Administration Fluticasone Propionate 2 sprays 03/27/25 22:00 03/31/25 08:53 Fluticasone Propionate Na Spr 16 Gm Btl NA 04/26/25 21:59 Not Given DAILY JAYSHREE Fluticasone/Vilanterol 1 puffs 03/27/25 21:50 03/31/25 08:52 Fluticasone/Vilanterol 200/25mcg 14 Puffs/Inhaler INH 04/26/25 21:49 1 puffs DAILY JAYSHREE Administration Folic Acid 1 mg 03/28/25 09:00 03/31/25 08:53 Folic Acid 1 Mg Tab PO 04/27/25 08:59 1 mg BID JAYSHREE Administration Heparin Sodium (Porcine) 5,000 units 03/29/25 14:00 03/31/25 15:28 Heparin Sod 5,000 Unit/0.5 Ml Vial SQ 04/28/25 13:59 Not Given Q8 JAYSHREE Levalbuterol HCl 1.25 mg 03/27/25 21:45 03/31/25 13:00 Levalbuterol 1.25 Mg/3 Ml Neb INH 04/26/25 21:44 1.25 mg Q6R JAYSHREE Administration Levothyroxine Sodium 100 mcg 03/28/25 06:30 03/31/25 06:33 Levothyroxine Sodium 100 Mcg Tablet PO 04/27/25 06:29 100 mcg DAILYBB JAYSHREE Administration Metoprolol Succinate 25 mg 03/31/25 09:00 03/31/25 08:51 Metoprolol Succ 25mg Ext Rel Tab PO 04/30/25 08:59 25 mg BID JAYSHREE Administration Midodrine 5 mg 03/28/25 07:00 03/31/25 17:28 Midodrine Hcl 2.5 Mg Tab PO 04/27/25 06:59 5 mg TID@0700,1200,1700 JAYSHREE Administration Montelukast Sodium 10 mg 03/27/25 21:50 03/30/25 20:41 Montelukast Sodium 10 Mg Tablet PO 04/26/25 21:49 10 mg HS JAYSHREE Administration Multivitamins 1 tab 03/28/25 09:00 03/31/25 08:54 Multivitamin Tab PO 04/27/25 08:59 1 tab QAM JAYSHREE Administration Oxybutynin Chloride 5 mg 03/27/25 21:45 03/31/25 08:53 Oxybutynin Chloride 5 Mg Tab PO 04/26/25 21:44 5 mg Q8H PRN Administration bladder spasms Oxycodone HCl 5 - 10 mg 03/27/25 21:04 03/31/25 11:41 Oxycodone Hcl Ir 5 Mg Tab (Immediate Release) PO 04/10/25 21:03 10 mg QID PRN Administration Pain Pantoprazole Sodium 40 mg 03/27/25 22:00 03/31/25 08:52 Pantoprazole 40 Mg Tab PO 04/26/25 21:59 40 mg BID JAYSHREE Administration Polyethylene Glycol 17 gm 03/28/25 09:00 03/31/25 08:54 Polyethylene (Miralax) 17 Gm Pack PO 04/27/25 08:59 17 gm DAILY JAYSHREE Administration Topiramate 100 mg 03/27/25 22:00 03/31/25 08:54 Topiramate 100 Mg Tab PO 04/26/25 21:59 100 mg BID JAYSHREE Administration PG Care Time/CCT Total # of Minutes Spent Total Time Spent with Patient: Total time spent is greater than 50% in coordination of care (as documented) at patient's floor/unit and/or counseling patient: Coding Level of Care Code 24969 SUB INP/OBS CARE 3/50MIN Diagnoses Atrial fibrillation I48.91 Hypotension I95.9 Contraindication to anticoagulation therapy Z53.09
[2025-03-31] MEDS: CIPROFLOXACIN 500 MG TAB PO SCH (20:22)
[2025-04-01 06:30] LABS: Anion Gap 6.0 (3-11); Blood Urea Nitrogen 17.0 mg/dl (6-23); Calcium 9.0 mg/dl (8.6-10.3); Carbon Dioxide 24.0 mmol/L (21-32); Chloride 111.0 mmol/L (98-107); Creatinine Clr Calc Pharmacy 56.9 ml/min; Glucose 93.0 mg/dl (70-99(Fasting)); Potassium 4.2 mmol/L (3.5-5.1); Sodium 141.0 mmol/L (136-145)
[2025-04-01] MEDS: METOPROLOL SUCC 25MG EXT REL TAB PO SCH (09:22)
--- NOTE | 2025-04-01 11:15 | Hospitalist Progress Note ---
Date of Service April 01, 2025 Assessment & Plan (1) Atrial fibrillation with rapid ventricular response: Plan: Complicated UTI Patient with hx of s/p with bilateral retrograde pyelogram and stent placement, right ureteral dilation, left ureteroscopy and laser endopyelotomy on 03/08/2025 Urine analysis suggestive of UTI CT abd on admission interval decrease of left hydronephrosis, Interval improvement in fluid and inflammatory change around the left renal pelvis and left UPJ, which could be due to improving infection, Urine culture growing Acinetobacter Junii Antibiotic changed to ciprofloxacin; plan to treat for 3 more days. A.fib with RVR- not on AC due to hx of bleeding. on Verapamil, dose decreased last admission due to hypotension. noted to be a.fib with RVR; doesn't seem to tolerate verapamil well as she has episodes of hypotension Metoprolol dose increased to 50mg twice a day. Monitor on telemetry. Diarrhea rule out C. difficile given recent antibiotic Rx- denies diarrhea at this time. history idiopathic cardiac arrest/VT- s/p ablation orthostatic hypotension on midodrine-continue hyperlipidemia/statin intolerance- on lipitor,continue asthma/COPD, chronic cough symptoms as per patient CYNTHIA/narcolepsy on CPAP hypothyroidism, euthyroid as of recent outpatient TSH chronic anemia- monitor DVT prophylaxis heparin Full code Please note the above document was generated using voice recognition software. It may contain grammatical, syntax or spelling errors. Any formal questions or concerns about the content, text or information contained within the body of this dictation should be directly addressed to the provider for clarification . Admission and Anticipated Discharge Date Admission Date: March 27, 2025 Subjective Patient seen and examined bedside. She reports that she is feeling better. Telemetry shows atrial fibrillation with ventricular rate in 90s to 100 Review of Systems Review of Systems: All systems reviewed & are unremarkable except as noted in Subjective Physical Exam Physical Exam: Constitutional: WD/WN, vitals as above, NAD, sitting up in bed, pleasant, conversing easily Respiratory: normal respiratory effort, lungs clear to auscultation, no wheeze, rales, rhonchi. Normal insp/exp effort, no accessory muscle use Cardiovascular: RRR, no murmur, no edema Vessels: no JVD or carotid bruit Chest: normal inspection of chest Abdomen: soft, non-tender Skin: no rashes, warm and dry normal turgor Neurologic: PERRL, EOMI, accommodation nl, no face palsy, no dysarthria CN's II- XI intact bilaterally and moves all extremities Psychiatric: A+Ox3, euthymic affect Results & Data Results & Data Vital Signs (Past 12 Hours) Vital Signs Temp Pulse Pulse Resp BP BP Pulse Ox 04/01/25 08:02 37.0 C 110 H 18 100/61 95 04/01/25 06:53 87 16 97 04/01/25 06:20 111/75 04/01/25 03:24 37.0 C 95 H 16 104/69 96 04/01/25 00:09 98 H 03/31/25 23:58 36.9 C 102 H 18 114/78 94 O2 Del Method 04/01/25 08:02 Room Air 04/01/25 06:53 04/01/25 06:20 04/01/25 03:24 Room Air 04/01/25 00:09 03/31/25 23:58 Room Air
--- NOTE | 2025-04-01 16:09 | Cardiology Progress Note ---
Date of Service April 01, 2025 Assessment & Plan (1) Atrial fibrillation: (2) Hypotension: (3) Contraindication to anticoagulation therapy: Plan Atrial Fib with RVR -> CVR UTI s/p with bilateral retrograde pyelogram and stent placement, right ureteral dilation, left ureteroscopy and laser endopyelotomy on 03/08/2025 Diarrhea rule out C. difficile - resolved diarrhea Hypothyroidism COPD HLD CYNTHIA Continue metoprolol succinate ->adjust dose keeping HR between 60 to 100 BPM and systolic BP between 100-140 mmHg increase fluid intake abx as per primary team correct and f/u electrolytes not on anticoagulation due to bleeding risk f/u renal function keep patient euvolemic DVT prophylaxis may use digoxin if soft BP Keep K between 4 and 4.5 and Mg between 2 and 2.5 when on Digoxin Admission and Anticipated Discharge Date Admission Date: March 27, 2025 Subjective Patient on exam is lying in bed in NAD; no c/o cp, sob, palpitations feels better tele - atrial fib with CVR Review of Systems Review of Systems: Complete Review of Systems is as stated above, negative, or noncontributory. Physical Exam Physical Exam: General: A&Ox3. NAD. HENT: Normocephalic. Atraumatic. Eyes: Conjunctiva pink, sclerae pale. Neck: No carotid bruits. No JVD. Heart: Irregularly irregular sys murmur. No rub. Lungs: no rales, No wheeze. Abdomen: +BS. Soft. Nontender. No masses or organomegaly. Extremities: No clubbing, cyanosis, or edema. Limited neurological examination is without focal deficits. Results & Data Vital Signs (Past 12 Hours) Vital Signs Temp Pulse Resp BP BP Pulse Ox O2 Del Method 04/01/25 15:37 36.7 C 80 18 102/67 96 Room Air 04/01/25 12:27 84 16 96 Room Air 04/01/25 11:46 36.7 C 88 18 99/62 L 97 Room Air 04/01/25 08:02 37.0 C 110 H 18 100/61 95 Room Air 04/01/25 06:53 87 16 97 04/01/25 06:20 111/75 Laboratory Results Laboratory Results WBC 5.19 K/ul (4.8-10.8) 03/30/25 05:52 RBC 3.20 M/uL (4.20-5.40) L 03/30/25 05:52 Hgb 10.1 g/dl (12.0-16.0) L 03/30/25 05:52 Hct 32.1 % (37.0-47.0) L 03/30/25 05:52 MCV 100.3 fL (80.0-100.0) H 03/30/25 05:52 MCH 31.6 pg (25.0-34.0) 03/30/25 05:52 MCHC 31.5 g/dL (32.0-36.0) L 03/30/25 05:52 RDW Std Deviation 62.0 fL (36.4-46.3) H 03/30/25 05:52 RDW Coeff of Reginaldo 16.8 % (11.5-14.5) H 03/30/25 05:52 Plt Count 308 K/uL (130-400) 03/30/25 05:52 MPV 9.8 fL (9.4-12.4) 03/30/25 05:52 Immature Gran % (Auto) 0.4 % 03/30/25 05:52 Neut % (Auto) 68.5 % 03/30/25 05:52 Lymph % (Auto) 21.2 % 03/30/25 05:52 [place] % (Auto) 6.2 % 03/30/25 05:52 Eos % (Auto) 2.9 % 03/30/25 05:52 Baso % (Auto) 0.8 % 03/30/25 05:52 Neut # (Auto) 3.56 K/uL (1.40-6.50) 03/30/25 05:52 Lymph # (Auto) 1.10 K/uL (1.20-3.40) L 03/30/25 05:52 [place] # (Auto) 0.32 K/uL (0.11-0.59) 03/30/25 05:52 Eos # (Auto) 0.15 K/uL (0.00-0.50) 03/30/25 05:52 Baso # (Auto) 0.04 K/uL (0.00-0.20) 03/30/25 05:52 Immature Gran # (Auto) 0.02 K/uL (0.01-0.20) 03/30/25 05:52 PT 12.0 Seconds (9.0-12.0) 03/27/25 16:31 INR 1.1 (0.9-1.1) 03/27/25 16:31 Sodium 141 mmol/L (136-145) 04/01/25 05:41 Potassium 4.2 mmol/L (3.5-5.1) 04/01/25 05:41 Chloride 111 mmol/L (98-107) H 04/01/25 05:41 Carbon Dioxide 24 mmol/L (21-32) 04/01/25 05:41 Anion Gap 6 (3-11) 04/01/25 05:41 BUN 17 mg/dl (6-23) 04/01/25 05:41 Creatinine 0.91 mg/dl (0.6-1.2) 04/01/25 05:41 Est Cr Clr Drug Dosing 56.9 ml/min 04/01/25 05:41 eGFR 70.89 04/01/25 05:41 BUN/Creatinine Ratio 18.7 (10-20) 04/01/25 05:41 Glucose 93 mg/dl (70-99(Fasting)) 04/01/25 05:41 Lactate 1.0 mmol/L (0.4-2.0) 03/27/25 17:28 Calcium 9.0 mg/dl (8.6-10.3) 04/01/25 05:41 Magnesium 1.8 mg/dl (1.7-2.4) 03/27/25 16:31 Total Bilirubin 0.5 mg/dl (0.2-1.0) 03/27/25 16:31 AST 20 U/L (13-39) 03/27/25 16:31 ALT 110 U/L (7-52) H 03/27/25 16:31 Alkaline Phosphatase 626 U/L (34-104) H 03/27/25 16:31 Troponin I High Sens 13.1 pg/ml (0-14) 03/27/25 16:31 Total Protein 6.9 gm/dl (6.0-8.3) 03/27/25 16:31 Albumin 3.6 gm/dl (3.4-5.0) 03/27/25 16:31 Globulin 3.3 gm/dl (2.5-4.0) 03/27/25 16:31 Albumin/Globulin Ratio 1.1 (0.9-2) 03/27/25 16:31 Procalcitonin 2.46 ng/ml (0-0.5) H 03/27/25 16:31 Urine Color Yellow 03/27/25 18:49 Urine Appearance Cloudy (Clear) A 03/27/25 18:49 Urine pH 5.5 (4.5-7.5) 03/27/25 18:49 Ur Specific Angelica > 1.045 (1.000-1.030) H 03/27/25 18:49 Urine Protein 3+ (Negative) H 03/27/25 18:49 Urine Glucose (UA) Negative (Negative) 03/27/25 18:49 Urine Ketones Negative (Negative) 03/27/25 18:49 Urine Blood 3+ (Negative) H 03/27/25 18:49 Urine Nitrite Negative (Negative) 03/27/25 18:49 Urine Bilirubin Negative (Negative) 03/27/25 18:49 Urine Urobilinogen Negative (Negative) 03/27/25 18:49 Ur Leukocyte Esterase 1+ (Negative) H 03/27/25 18:49 Urine WBC (Auto) >50 /hpf (0-5) H 03/27/25 18:49 Urine RBC (Auto) >20 /hpf (0-2) H 03/27/25 18:49 U Hyaline Cast (Auto) >20 /lpf (0-2) H 03/27/25 18:49 U Epithel Cells (Auto) 0-2 /hpf (0-2) 03/27/25 18:49 Urine Bacteria (Auto) 1+ (None Seen) H 03/27/25 18:49 Urine Mucus Present (None Prsent) A 03/27/25 18:49 Urine Comment 03/27/25 18:49 Adenovirus (PCR) Not Detected (NotDetected) 03/27/25 18:17 B. pertussis DNA (PCR) Not Detected (NotDetected) 03/27/25 18:17 B.parapertussis DNA PCR Not Detected (NotDetected) 03/27/25 18:17 C. pneumoniae DNA (PCR) Not Detected (NotDetected) 03/27/25 18:17 Coronavirus OC43 (PCR) Not Detected (NotDetected) 03/27/25 18:17 Coronavirus HKU1 (PCR) Not Detected (NotDetected) 03/27/25 18:17 Coronavirus 229E (PCR) Not Detected (NotDetected) 03/27/25 18:17 SARS-CoV-2 (PCR) Not Detected (NotDetected) 03/27/25 18:17 Coronavirus NL63 (PCR) Not Detected (NotDetected) 03/27/25 18:17 Human Metapneumovir PCR Not Detected (NotDetected) 03/27/25 18:17 Influenza Type A (PCR) Not Detected (NotDetected) 03/27/25 18:17 Influenza Type B (PCR) Not Detected (NotDetected) 03/27/25 18:17 M. pneumoniae (PCR) Not Detected (NotDetected) 03/27/25 18:17 Parainfluenza 1 (PCR) Not Detected (NotDetected) 03/27/25 18:17 Parainfluenza 2 (PCR) Not Detected (NotDetected) 03/27/25 18:17 Parainfluenza 3 (PCR) Not Detected (NotDetected) 03/27/25 18:17 Parainfluenza 4 (PCR) Not Detected (NotDetected) 03/27/25 18:17 RSV (PCR) Not Detected (NotDetected) 03/27/25 18:17 Entero/Rhino (PCR) Not Detected (NotDetected) 03/27/25 18:17 Blood Type A Positive 03/27/25 19:52 Antibody Screen POSITIVE A 03/27/25 19:52 Antibody Identification Anti-e 03/27/25 19:52 Antibody ID Comment 03/27/25 19:52 Impressions Abdomen/Pelvis CT 03/27/25 17:04 Clinical History: Gross hematuria Technique: Axial computed tomography images were obtained of the abdomen and pelvis after the administration of intravenous contrast. Comparison is made to the prior examination dated 03/11/2025. Findings: The liver is overall of normal size, attenuation, and contour with no sign of cirrhosis or significant fatty infiltration. No liver mass lesion is seen. The portal vein is patent. The gallbladder has been removed. There is mild bile duct dilatation that is likely due to the postcholecystectomy state The spleen is of normal size. No focal splenic lesion is evident. The pancreas appears normal with no sign of acute or chronic pancreatitis and no mass lesion noted. The pancreatic duct is of normal caliber. There is an unchanged 3 cm left adrenal nodule, likely a benign adenoma. The right adrenal gland appears normal Bilateral ureteral stents are again seen. There is mild left hydronephrosis, less severe than before. There has been interval decrease in fluid and soft tissue stranding around the left renal pelvis and left ureteropelvic junction. The previously seen air in this area has resolved. There is apparent mild wall thickening of the left renal collecting system and left renal pelvis. No definite renal mass lesion is identified. There are small bilateral renal cyst, measuring up to 1.2 cm. The aorta is of normal caliber. No abdominal adenopathy is seen. The stomach appears normal. There is no sign of small bowel obstruction. The colon appears unremarkable. The appendix appears normal also. No free intraperitoneal fluid or air is identified. The bladder is decompressed, containing a Jose catheter. The iliac arteries are of normal caliber. No pelvic adenopathy is noted. The uterus has been removed The lungs bases appear clear. Mild thoracolumbar degenerative disc disease is seen. No fracture is identified. No focal osseous lesion is seen Impression: 1. Interval decrease in left hydronephrosis with mild hydronephrosis remaining 2. Interval improvement in fluid and inflammatory change around the left renal pelvis and left UPJ, which could be due to improving infection, resolved perforation, or other improving inflammation 3.. Mild wall thickening of the left renal collecting system. While this could be reactive, infection is also possible. There is no clear pyelonephritis 4. Bilateral renal cysts 5. Unchanged bilateral ureteral stents 6. Unchanged 3 cm left adrenal lesion, likely a benign adenoma ACT 112: Positive. There are findings on this exam that require communication between the performing entity and the patient following Patient Test Result Information Act ([place] ACT 112) guidelines. Electronically signed by Darinel Hilliard 03-27-2025 6:34 PM Chest X-Ray 03/27/25 17:04 Chest radiograph, one view History: Cough Comparison: 03/12/2025 Findings: Single AP view of the chest performed. No focal consolidation or pleural effusion. No pneumothorax. Right chest wall port with catheter tip at the mid SVC. The cardiomediastinal silhouette is within normal limits. Normal pulmonary vascularity. No evidence for lymphadenopathy. No visualized bony or soft tissue abnormality. There are chronic left-sided rib fracture deformities. Impression: Normal chest radiograph Electronically signed by Lai Gimenez 03-27-2025 5:48 PM Liver Ultrasound 03/28/25 08:02 US liver CLINICAL HISTORY: increased ALP COMPARISON STUDY: CT scan yesterday FINDINGS: Pancreas is obscured by bowel gas. Gallbladder is surgically absent. Liver demonstrates mild diffusely increased echogenicity. Liver measures approximately 15 cm. There is normal direction of flow in the portal vein. There is stable dilatation of the common bile duct measuring 1.3 cm greatest diameter, commonly seen after cholecystectomy. Right kidney shows no hydronephrosis. No ascites. IMPRESSION: Mild fatty liver. ACT 112: Negative or not required by law. Electronically signed by: Fred Fisher M.D. 03/28/2025 10:15 AM Diagnostic Findings Comprehensive Metabolic Panel 04/01/25 Range/Units 05:41 Sodium 141 (136-145) mmol/L Potassium 4.2 (3.5-5.1) mmol/L Chloride 111 H (98-107) mmol/L Carbon Dioxide 24 (21-32) mmol/L BUN 17 (6-23) mg/dl Creatinine 0.91 (0.6-1.2) mg/dl Glucose 93 (70-99(Fasting)) mg/dl Calcium 9.0 (8.6-10.3) mg/dl Intake and Output 04/01/25 04/01/25 04/01/25 06:59 14:59 22:59 Output Total 1800 / 3400 650 / 650 Balance -1800 / -3100 -650 / -650 Output: Urine Amount (Catheter) 1800 / 3400 650 / 650 Jose/Indwelling 1800 / 2750 650 / 650 Other: Weight 58.6 kg Weight Measurement Method Built in [facility] Medications Administered Home Medications Medication Instructions Recorded Confirmed Last Taken aspirin 81 mg tablet,delayed 81 mg PO QAM 09/14/24 03/27/25 03/27/25 release atorvastatin 20 mg tablet 20 mg PO HS 09/14/24 03/27/25 03/26/25 cimetidine 400 mg tablet 400 mg PO BID 09/14/24 03/27/25 03/27/25 fexofenadine 180 mg tablet 180 mg PO QAM 09/14/24 03/27/25 03/27/25 fluticasone 250 mcg-salmeterol 50 1 inh inhalation BID 09/14/24 03/27/25 03/27/25 mcg/dose blistr powdr for inhalation (Advair Diskus) folic acid 1 mg tablet 1 mg PO BID 09/14/24 03/27/25 03/27/25 hyoscyamine sulfate 0.375 mg 0.375 mg PO Q6H PRN Abdominal Pain 09/14/24 03/27/25 Unknown tablet,extended release,12 hr ipratropium 20 mcg-albuterol 100 1 puff inhalation QID PRN 09/14/24 03/27/25 03/07/25 12:00 mcg/actuation mist for inhalation Shortness Of Breath Or Wheezing (Combivent Respimat) levothyroxine 100 mcg capsule 100 mcg PO QAM 09/14/24 03/27/25 03/27/25 montelukast 10 mg tablet 10 mg PO HS 09/14/24 03/27/25 03/26/25 multivitamin 1 tab PO QAM 09/14/24 03/27/25 03/27/25 rabeprazole 20 mg tablet,delayed 40 mg PO BID 09/14/24 03/27/25 03/27/25 release (AcipHex) sucralfate 1 gram tablet 1 g PO ACHS 09/14/24 03/27/25 03/27/25 topiramate 100 mg tablet 100 mg PO BID 09/14/24 03/27/25 03/27/25 CPAP Machine 09/15/24 03/11/25 Unknown amitriptyline 75 mg tablet 75 mg PO HS 09/15/24 03/27/25 03/26/25 azelastine 137 mcg (0.1 %) nasal 1 spray intranasal BID 09/15/24 03/27/25 03/27/25 spray levalbuterol HCl 1.25 mg/3 mL 1.25 mg inhalation Q6H 09/15/24 03/27/25 03/27/25 solution for nebulization mometasone 50 mcg/actuation nasal 2 spray intranasal BID 09/15/24 03/27/25 03/27/25 spray ondansetron 4 mg disintegrating 4 mg PO Q8H PRN Nausea And Vomiting 09/15/24 03/27/25 03/07/25 08:00 tablet polyethylene glycol 3350 17 gram 17 g PO QAM 09/15/24 03/27/25 03/27/25 oral powder packet (Miralax) oxybutynin chloride 5 mg tablet 5 mg PO Q8H PRN bladder spasms #9 03/08/25 03/27/25 Unknown tabs epinephrine 0.3 mg/0.3 mL 0.3 mg subcut UD PRN Anaphylaxis 03/11/25 03/27/25 Unknown injection, auto-injector midodrine 5 mg tablet 5 mg PO TID #90 tabs 03/18/25 03/27/25 03/27/25 verapamil 120 mg tablet,extended 120 mg PO DAILY #30 tabs 03/18/25 03/27/25 03/27/25 release ciprofloxacin HCl 500 mg tablet 500 mg PO BID 7 days #14 tabs 03/30/25 Unknown Active Medications Generic Name Dose Route Start Last Admin Trade Name Freq PRN Reason Stop Dose Admin Acetaminophen 500 mg 03/27/25 21:11 03/29/25 17:20 Acetaminophen 500 Mg Tab PO 04/26/25 21:10 500 mg Q6H PRN Administration fever/pain Amitriptyline HCl 75 mg 03/27/25 21:50 03/31/25 20:22 Amitriptyline Hcl 25 Mg Tab PO 04/26/25 21:49 75 mg HS JAYSHREE Administration Atorvastatin Calcium 20 mg 03/28/25 21:00 03/31/25 20:22 Atorvastatin 20 Mg Tab PO 04/27/25 20:59 20 mg HS JAYSHREE Administration Azelastine HCl 1 sprays 03/27/25 22:00 04/01/25 09:20 Azelastine Hcl 0.1% Nasal 200 Sprays/27,400 Mcg Btl NA 04/26/25 21:59 1 sprays BID JAYSHREE Administration Ciprofloxacin 500 mg 03/31/25 21:00 04/01/25 09:22 Ciprofloxacin 500 Mg Tab PO 04/03/25 20:59 500 mg BID JAYSHREE Administration Protocol Famotidine 40 mg 03/27/25 21:50 04/01/25 09:20 Famotidine 40 Mg Tablet PO 04/26/25 21:49 40 mg DAILY JAYSHREE Administration Fexofenadine HCl 180 mg 03/28/25 09:00 04/01/25 09:20 Fexofenadine Hcl 180 Mg Tab PO 04/27/25 08:59 180 mg QAM JAYSHREE Administration Fluticasone Propionate 2 sprays 03/27/25 22:00 04/01/25 09:23 Fluticasone Propionate Na Spr 16 Gm Btl NA 04/26/25 21:59 Not Given DAILY JAYSHREE Fluticasone/Vilanterol 1 puffs 03/27/25 21:50 04/01/25 09:23 Fluticasone/Vilanterol 200/25mcg 14 Puffs/Inhaler INH 04/26/25 21:49 1 puffs DAILY JAYSHREE Administration Folic Acid 1 mg 03/28/25 09:00 04/01/25 09:21 Folic Acid 1 Mg Tab PO 04/27/25 08:59 1 mg BID JAYSHREE Administration Heparin Sodium (Porcine) 5,000 units 03/29/25 14:00 04/01/25 13:06 Heparin Sod 5,000 Unit/0.5 Ml Vial SQ 04/28/25 13:59 5,000 units Q8 JAYSHREE Administration Levalbuterol HCl 1.25 mg 03/27/25 21:45 04/01/25 12:27 Levalbuterol 1.25 Mg/3 Ml Neb INH 04/26/25 21:44 1.25 mg Q6R JAYSHREE Administration Levothyroxine Sodium 100 mcg 03/28/25 06:30 04/01/25 05:50 Levothyroxine Sodium 100 Mcg Tablet PO 04/27/25 06:29 100 mcg DAILYBB JAYSHREE Administration Metoprolol Succinate 37.5 mg 04/01/25 09:00 04/01/25 09:22 Metoprolol Succ 25mg Ext Rel Tab PO 05/01/25 08:59 37.5 mg BID JAYSHREE Administration Midodrine 5 mg 03/28/25 07:00 04/01/25 13:05 Midodrine Hcl 2.5 Mg Tab PO 04/27/25 06:59 5 mg TID@0700,1200,1700 JAYSHREE Administration Montelukast Sodium 10 mg 03/27/25 21:50 03/31/25 20:22 Montelukast Sodium 10 Mg Tablet PO 04/26/25 21:49 10 mg HS JAYSHREE Administration Multivitamins 1 tab 03/28/25 09:00 04/01/25 09:22 Multivitamin Tab PO 04/27/25 08:59 1 tab QAM JAYSHREE Administration Oxybutynin Chloride 5 mg 03/27/25 21:45 03/31/25 08:53 Oxybutynin Chloride 5 Mg Tab PO 04/26/25 21:44 5 mg Q8H PRN Administration bladder spasms Oxycodone HCl 5 - 10 mg 03/27/25 21:04 04/01/25 15:35 Oxycodone Hcl Ir 5 Mg Tab (Immediate Release) PO 04/10/25 21:03 5 mg QID PRN Administration Pain Pantoprazole Sodium 40 mg 03/27/25 22:00 04/01/25 09:23 Pantoprazole 40 Mg Tab PO 04/26/25 21:59 40 mg BID JAYSHREE Administration Polyethylene Glycol 17 gm 03/28/25 09:00 04/01/25 09:19 Polyethylene (Miralax) 17 Gm Pack PO 04/27/25 08:59 17 gm DAILY JAYSHREE Administration Topiramate 100 mg 03/27/25 22:00 04/01/25 09:20 Topiramate 100 Mg Tab PO 04/26/25 21:59 100 mg BID JAYSHREE Administration PG Care Time/CCT Total # of Minutes Spent Total Time Spent with Patient: Total time spent is greater than 50% in coordination of care (as documented) at patient's floor/unit and/or counseling patient: Coding Level of Care Code 08901 SUB INP/OBS CARE 3/50MIN Diagnoses Atrial fibrillation I48.91 Hypotension I95.9 Contraindication to anticoagulation therapy Z53.09
--- NOTE | 2025-04-02 10:30 | Discharge Summary ---
Date of Service April 02, 2025 Admission HPI Per Admitting Provider History obtained from patient and records. Medical history is significant for history idiopathic cardiac arrest/VT, PAT, hypertension, PAF (not on anticoagulation due to fall risk and anemia as per records), orthostatic hypotension on midodrine, hyperlipidemia/statin intolerance, asthma/COPD, CYNTHIA/narcolepsy on CPAP, urolithiasis, hydronephrosis, celiac disease, GERD, irritable bowel syndrome, pancreas divisum, left adrenal tumor as per records, hypothyroidism, chronic anemia (baseline hemoglobin of 11), RLS, endometriosis/PCOS, hx MRSA. Recent confinement 2 weeks ago for recurrent A-fib secondary to severe sepsis secondary to emphysematous pyelonephritis. No growth on cultures. Patient midodrine titrated upwards and verapamil dose decreased on discharge. Patient discharged with Jose catheter. Patient seen at PCPs office on follow-up visit 4 days ago. Patient still with dysuria symptoms. Outpatient UA WBC esterase positive. Hematuria with worsening achy lower abdominal pain over the last 3 days. Diarrhea symptoms occasionally bloody as per patient. No chest pain or unusual shortness of breath. Dry cough symptoms which is a sign for her that she is in A-fib. Patient compliant with home medications. Rapid A-fib noted at the ER, heart rate 140s. IV Cardizem and meropenem administered at the ER. MEDICAL HISTORY: As above. SURGICAL HISTORY: TAHBSO, cholecystectomy, appendectomy, ankle surgery, knee surgery, nasal reconstruction, sinus surgery, finger tendon sheath surgery, urologic procedure, laminectomy/spine surgery FAMILY HISTORY: Family history of unknown. Patient is adopted. PERSONAL/SOCIAL HISTORY: Nonsmoker. No chronic intake of inatke of ETOH. 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 Admission Exam Per Admitting Provider GENERAL: Comfortable, no respiratory distress SKIN: Pallor, warm HEENT: Pale palpebral conjunctivae, no ptosis, dry buccal mucosa NECK : Supple, no tenderness CHEST : Decreased breath sounds, no tenderness HEART : Irregular, no obvious murmurs ABDOMEN: Some distention, minimal hypogastric tenderness EXTREMITIES : Minimal LE swelling, no LE tenderness, no other conspicuous deformities noted NEUROLOGIC : Coherent, no facial asymmetry, no other gross focality Principal Diagnosis Complicated UTI A.fib with RVR- Discharge Exam Constitutional: WD/WN, vitals as above, NAD, sitting up in bed, pleasant, conversing easily Respiratory: normal respiratory effort, lungs clear to auscultation, no wheeze, rales, rhonchi. Normal insp/exp effort, no accessory muscle use Cardiovascular: RRR, no murmur, no edema Vessels: no JVD or carotid bruit Chest: normal inspection of chest Abdomen: soft, non-tender Skin: no rashes, warm and dry normal turgor Neurologic: PERRL, EOMI, accommodation nl, no face palsy, no dysarthria CN's II- XI intact bilaterally and moves all extremities Psychiatric: A+Ox3, euthymic affect Discharge Data Allergies Allergy/AdvReac Type Severity Reaction Status Date / Time bee venom protein (honey bee) Allergy Severe ANAPHYLAXIS Verified 03/27/25 18:41 coconut Allergy Severe RASH; SOB Verified 03/27/25 18:41 gluten Allergy Severe CELIAC'S Verified 03/27/25 18:41 latex Allergy Severe Anaphylaxis Verified 03/27/25 18:41 Penicillins Allergy Severe Anaphylaxis Verified 03/27/25 18:41 Sulfa (Sulfonamide Allergy Severe Anaphylaxis Verified 03/27/25 18:41 Antibiotics) ROBER Inhibitors Allergy Intermediate RASH/TACHYC Verified 03/27/25 18:41 ARDIA cefaclor Allergy Intermediate CECLOR--RASH/UPSET Verified 03/27/25 18:41 STOMACH egg Allergy Intermediate RASH & Verified 03/27/25 18:41 Bloating Influenza Virus Vaccines Allergy Intermediate rash and Verified 03/27/25 18:41 bloating tetracycline Allergy Intermediate NAUSEA/VOMI Verified 03/27/25 18:41 TING/RASH Quinolones Allergy Unknown ALLERGY TO Verified 03/27/25 18:41 AVELOX ,CAN TAKE CIPRO OR LEVAQUIN W/O RXN Beta-Blockers AdvReac Intermediate intolerance Verified 03/27/25 18:41 (Beta-Adrenergic Bloc as per records lactose AdvReac Intermediate BLOATING; Verified 03/27/25 18:41 DIARRHEA; VOMITING Consultations 03/27/25 19:06 ED Decision to Admit Stat 03/27/25 21:43 Consult Urology Routine 03/30/25 13:38 Consult Cardiology Routine Ordered Studies 03/27/25 17:04 CT Abd and Pelvis [CT abd pelvis IV con only] Stat 03/28/25 08:02 US liver Routine Hospital Course (1) Atrial fibrillation with rapid ventricular response: Complicated UTI Patient with hx of s/p with bilateral retrograde pyelogram and stent placement, right ureteral dilation, left ureteroscopy and laser endopyelotomy on 03/08/2025 Urine analysis suggestive of UTI CT abd on admission interval decrease of left hydronephrosis, Interval improvement in fluid and inflammatory change around the left renal pelvis and left UPJ, which could be due to improving infection, Urine culture growing Acinetobacter Junii Discharged on 3 more days of antibiotics A.fib with RVR- not on AC due to hx of bleeding. on Verapamil, dose decreased last admission due to hypotension. noted to be a.fib with RVR; doesn't seem to tolerate verapamil well as she has episodes of hypotension Started on metoprolol tartare initially and transition over to succinate She converted into normal sinus rhythm on 04/01/2025. Plan to discharge her on metoprolol 37.5 bid. Please note the above document was generated using voice recognition software. It may contain grammatical, syntax or spelling errors. Any formal questions or concerns about the content, text or information contained within the body of this dictation should be directly addressed to the provider for clarification . Total Time Total Time Spent Total Time Spent (In Minutes): 45 Total Time Includes: Examination of the Patient, Discharge Planning, Medication Reconciliation, Communication With Other Providers and Other Discharge Plan Discharge Items Patient Disposition: Home - Self-Care Reason For Visit: AF,COMP UTI Discharge Diagnosis: Complicated UTI Condition on Discharge: Fair Activity: Resume your previous activity Non-emergency contact: Primary Care Provider Call non-emergency contact if: you have any medication questions and your symptoms worsen Follow-up/Referrals: Vicki Watson MD [Primary Care Provider] - (Date & Time 04/04/2025 10:20 AM Provider: Vicki Cadet MD Family [facility] ) Diet: Regular Addtl Attending Provider Instructions: You were admitted to the hospital due to UTI. You are treated with antibiotic during the hospitalization. You are prescribed ciprofloxacin to be taken twice a day for 3 more days. Please follow-up with urology and your primary care doctor. Stop taking VERAPAMIL. You are prescribed Metoprolol 37.5( One and half tablet) twice a day for your A.fib Pending Studies at Discharge: No Stand-Alone Forms: My [employer], Smoking Cessation Medications and DC Order Prescriptions: New ciprofloxacin HCl 500 mg Tablet 500 mg PO BID 3 Days Qty: 6 0RF metoprolol succinate 25 mg Tablet Extended Release 24 Hr 37.5 mg PO BID Qty: 90 0RF Continued fluticasone propion-salmeterol [Advair Diskus] 250-50 mcg/dose Blister With Device 1 inh INHALATION BID atorvastatin 20 mg Tablet 20 mg PO HS cimetidine 400 mg Tablet 400 mg PO BID Rx Instructions: administer with meals hyoscyamine sulfate 0.375 mg Tablet Extended Release 12 Hr 0.375 mg PO Q6H PRN (Reason: Abdominal Pain) folic acid 1 mg Tablet 1 mg PO BID montelukast 10 mg Tablet 10 mg PO HS levothyroxine 100 mcg Capsule 100 mcg PO QAM Combivent Respimat 20-100 mcg/actuation Mist 1 puff INHALATION QID PRN (Reason: Shortness Of Breath Or Wheezing) Rx Instructions: space evenly during waking hours rabeprazole [AcipHex] 20 mg Tablet,Delayed Release (Dr/Ec) 40 mg PO BID sucralfate 1 gram Tablet 1 g PO ACHS fexofenadine 180 mg Tablet 180 mg PO QAM aspirin 81 mg Tablet,Delayed Release (Dr/Ec) 81 mg PO QAM topiramate 100 mg Tablet 100 mg PO BID multivitamin Tablet 1 tab PO QAM levalbuterol HCl 1.25 mg/3 mL Solution For Nebulization 1.25 mg INHALATION Q6H amitriptyline 75 mg Tablet 75 mg PO HS ondansetron 4 mg Tablet,Disintegrating 4 mg PO Q8H PRN (Reason: Nausea And Vomiting) polyethylene glycol 3350 [Miralax] 17 gram Powder In Packet 17 g PO QAM mometasone 50 mcg/actuation [place],Non-Aerosol 2 spray INTRANASAL BID Rx Instructions: administer into each nostril azelastine 137 mcg (0.1 %) [place],Non-Aerosol 1 spray INTRANASAL BID Rx Instructions: administer into each nostril (DME) CPAP Machine Misc Rx Instructions: 1 LPM bled through CPAP during hours of sleep oxybutynin chloride 5 mg tablet 5 mg PO Q8H PRN (Reason: bladder spasms) Qty: 9 0RF epinephrine 0.3 mg/0.3 mL auto-injector 0.3 mg subcut UD PRN (Reason: Anaphylaxis) midodrine 5 mg tablet 5 mg PO TID Qty: 90 0RF Rx Instructions: do not give last dose of day after 6PM or within 4 hrs of bedtime Discontinued verapamil 120 mg Tablet Extended Release 120 mg PO DAILY Qty: 30 0RF Discharge Orders: Discharge Order (Routine); Ordered 04/02/25 Ordered By: Tito Rodriguez Admission Data Admit Date/Time: 03/27/25 21:18 Attending Provider: Tito Rodriguez Admit Provider: Mike Johnson Primary Care Provider: Vicki Watson Other Providers: Mike Johnson; Lai Griffiths; Laura Hardy; Dex Williamson; Hannah Olvera; Olivia Richrad; Flavio Thompson; Vicki Myers; Shivam Nava; Carlos Dyer; Yair Stern; Bob Austin; Harrison Roldan N
--- NOTE | 2025-04-02 10:55 | Cardiology Progress Note ---
Date of Service April 02, 2025 Assessment & Plan (1) Atrial fibrillation: (2) Hypotension: (3) Contraindication to anticoagulation therapy: Plan Atrial Fib with RVR -> Converted to SNR on 04/01 at 21:38. Currently NSR UTI s/p with bilateral retrograde pyelogram and stent placement, right ureteral dilation, left ureteroscopy and laser endopyelotomy on 03/08/2025 Diarrhea rule out C. difficile - resolved diarrhea Hypothyroidism COPD HLD CYNTHIA Chronic hypotension Plan: Continue metoprolol succinate 37.5 mg BID. Continue midodrine for hypotension Not on anticoagulation due to bleeding risks for recurrent falls and chronic anemia. Previously was referred to discuss Watchman as outpatient. (Appt was cancelled and not rescheduled) Stable cardiac symptoms Plans for discharge later today Will arrange cardio f/u with Dr. Aguirre in 1 month Case discussed with Dr. Morillo I spent a total of 35 minutes on the date of service in preparation, delivery, and documentation of the care provided to this patient, excluding any time spent in the performance of separately billed services. Damaris Hammer PA-C Department of Cardiology, [facility] This chart was completed in part utilizing Speech Voice Recognition Software. Grammatical errors, random word insertions, pronoun errors, and incomplete sentences are an occasional consequence of this system due to software limitations, ambient noise, and hardware issues. Any formal questions or concerns about the content, text, or information contained within the body of this dictation should be directly addressed to the provider for clarification. Admission and Anticipated Discharge Date Admission Date: March 27, 2025 Supervising Physician Co-Signing Physician Notes Patient was seen and personally examined. Full assessment and plan by advanced provider as above discussed and personally endorsed Patient with paroxysmal atrial fibrillation now maintaining sinus rhythm. Anticoagulation risks and concerns as noted. Treatment deferred with possible reconsideration of Watchman procedure pending outpatient eval Stable from cardiac standpoint. Contact with questions Subjective Patient resting in bed. Denies acute cardiac complaints. No chest pain or SOB. No palpitations. No dizziness. Review of Systems Review of Systems: All systems reviewed & are unremarkable except as noted in HPI & below Physical Exam Physical Exam: General: A&Ox3. NAD. HENT: Normocephalic. Atraumatic. Eyes: Conjunctiva pink, sclerae pale. Neck: No carotid bruits. No JVD. Heart: Irregularly irregular sys murmur. No rub. Lungs: no rales, No wheeze. Abdomen: +BS. Soft. Nontender. No masses or organomegaly. Extremities: No clubbing, cyanosis, or edema. Limited neurological examination is without focal deficits. Constitutional: WD/WN, vitals as above no acute distress Neck: trachea midline, no thyromegaly Respiratory: normal respiratory effort Auscultation: lungs clear to auscultation bilaterally; no diminished lung sounds Cardiovascular: Rate/Rhythm: regular rate and regular rhythm Heart Sounds: no murmur Vessels: no JVD Extremities: no edema Gastrointestinal (Abdomen): normal bowel sounds, soft, nontender, no hepatos plenomegaly Neurologic: PERRL, EOMI, accommodation nl, no face palsy, no dysarthria Results & Data Vital Signs (Past 12 Hours) Vital Signs Temp Pulse Pulse Resp BP Pulse Ox O2 Del Method 04/02/25 08:25 36.3 C L 68 20 101/67 98 Room Air 04/02/25 07:16 66 16 95 Room Air 04/02/25 06:06 119/72 04/02/25 04:27 36.7 C 59 L 17 102/66 95 Room Air 04/02/25 01:03 73 04/02/25 00:12 36.9 C 67 17 111/73 96 Room Air PG Care Time/CCT Total # of Minutes Spent Total Time Spent with Patient: Total time spent is greater than 50% in coordination of care (as documented) at patient's floor/unit and/or counseling patient: 35 minutes Coding Level of Care Code 52868 SUB INP/OBS CARE 3/50MIN Diagnoses Paroxysmal atrial fibrillation I48.0 Atrial fibrillation type: paroxysmal Hypotension I95.9 Contraindication to anticoagulation therapy Z53.09 (1) Atrial fibrillation Atrial fibrillation type: paroxysmal Qualified Code(s): I48.0 - Paroxysmal atrial fibrillation
[2025-04-02 15:12] VITALS: PULSE 79; RESP 18; TEMP 97.9; O2SAT 96
[2025-04-02 16:22] VITALS: BP 102/69
== END 2025-04-02 18:44 | disposition home or self-care (01) | DRG 690 ==
LOC: ED 15:54 → 2S 21:18
DX: E03.9 Hypothyroidism, unspecified; Z88.0 Allergy status to penicillin; G47.419 Narcolepsy without cataplexy; G47.33 Obstructive sleep apnea (adult) (pediatric); M19.90 Unspecified osteoarthritis, unspecified site; Z91.040 Latex allergy status; Z86.14 Personal history of Methicillin resistant Staphylococcus aureus infection; Z79.899 Other long term (current) drug therapy; B96.89 Other specified bacterial agents as the cause of diseases classified elsewhere; Z88.7 Allergy status to serum and vaccine; F32.A Depression, unspecified; I48.21 Permanent atrial fibrillation; R19.7 Diarrhea, unspecified; K58.9 Irritable bowel syndrome, unspecified; Z96.0 Presence of urogenital implants; J44.89 Other specified chronic obstructive pulmonary disease; N18.30 Chronic kidney disease, stage 3 unspecified; Z79.51 Long term (current) use of inhaled steroids; Z88.2 Allergy status to sulfonamides; K90.0 Celiac disease; I95.1 Orthostatic hypotension; Z91.012 Allergy to eggs; D50.9 Iron deficiency anemia, unspecified; N13.6 Pyonephrosis; G43.909 Migraine, unspecified, not intractable, without status migrainosus; Z86.74 Personal history of sudden cardiac arrest; K21.9 Gastro-esophageal reflux disease without esophagitis; Z91.018 Allergy to other foods; Z88.8 Allergy status to other drugs, medicaments and biological substances; F41.9 Anxiety disorder, unspecified; Z79.890 Hormone replacement therapy; Z79.82 Long term (current) use of aspirin; Z88.1 Allergy status to other antibiotic agents; E78.5 Hyperlipidemia, unspecified; I12.9 Hypertensive chronic kidney disease with stage 1 through stage 4 chronic kidney disease, or unspecified chronic kidney disease; Z91.030 Bee allergy status; G25.81 Restless legs syndrome

== ENCOUNTER 2025-04-12 16:44 | Inpatient (IN) ==
--- NOTE | 2025-04-12 17:39 | Emergency Department Note ---
Impression & Plan Acute pyelonephritis, Hydroureteronephrosis, Flank pain ED Provider Note NAME: SHAYY CARRILLO AGE: 64 SEX: F : 1960 ARRIVES VIA: Walk-In INFORMANT: Patient, family ED PROVIDER(S): Reggie Love DO CHIEF COMPLAINT: flank pain HPI: This is a 64-year-old female with the PMHx of HTN, HLD, GERD, IBS, hypothyroidism, CYNTHIA, asthma, celiac disease, pAfib and recurrent UTI with L hydroureteronephrosis s/p ureteral stent presenting to [facility] for further evaluation of severe L sided flank pain. Patient is accompanied by her family who provide additional history. Patient states that she has been in and out of atrial fibrillation and has worsening left flank pain. Patient states that she has had sepsis secondary to a UTI and kidney infection multiple times over the past 3 weeks. She states that her symptoms initially began at the beginning of March. Patient states that she has a Jose catheter and stent in place since that time. She states that she recently finished a course of ciprofloxacin on Wednesday. Patient states that she feels that she is septic again. She noted her blood pressure to be low. They deny fever or chills. No cough or congestion. Denies chest pain or palpitations. No shortness of breath. They deny abdominal pain, nausea and vomiting. She does report that her urine has been dark and had blood clots in it earlier today. No recent changes in bowel movements. Patient denies recent changes in medications or OTC supplements. Patient offers no other complaints, today. ADDITIONAL HISTORY OBTAINED: Per HPI Chronic Medical/Social Conditions Affecting Care: Per HPI PAST MEDICAL HISTORY: See Below PAST SURGICAL HISTORY: See Below FAMILY HISTORY: See Below SOCIAL HISTORY: See Below HOME MEDICATIONS: See Below ALLERGIES: See Below VITALS: See Below PHYSICAL EXAMINATION: GENERAL: Sitting up in bed, alert, well appearing, well nourished, no distress, non-toxic EYE EXAM: normal conjunctiva. OROPHARYNX: no exudate, no erythema, lips, buccal mucosa, and tongue normal and mucous membranes are moist NECK: supple, no nuchal rigidity, no adenopathy, non-tender LUNGS: Clear to auscultation. Normal chest wall mechanics HEART: no murmurs, regular rate, regular rhythm ABDOMEN: abdomen soft, minimal generalized TTP, no masses, no rebound or guarding. BACK: Back is symmetrical on inspection and there is no deformity, no midline tenderness, + L CVA tenderness. SKIN: no rashes and no bruising UPPER EXTREMITIES: upper extremities are grossly normal. LOWER EXTREMITIES: No pitting edema. NEURO EXAM: Normal sensorium, GCS 15, normal speech, no gross weakness of arms, no gross weakness of legs. MEDICAL DECISION MAKING: Differential diagnoses includes but not limited to sepsis, complicated UTI, pyelonephritis, renal abscess, hydroureteronephrosis, appendicitis, bowel obstruction, diverticulitis, malignancy, nephrolithiasis, gastroenteritis, ACS, PNA, pancreatitis, hepatobiliary disease In summary, this is a 64 year old female who presented with flank pain. Differential as above. Nursing notes and pertinent past medical records reviewed. Vital signs reviewed and the patient is mildly hypertensive but otherwise afebrile and hemodynamically stable. History and presentation revealed complicated history since the beginning of the month with recurrent UTIs and ureteral stent placement for significant hydroureteronephrosis. Physical examination revealed mild abdominal tenderness to palpation with significant left CVA tenderness. As a result of my initial evaluation, plan for pain control as well as IV fluid resuscitation while obtaining urinalysis, basic labs and a CT abdomen/pelvis. Diagnostics interpreted by me include EKG and cardiac monitoring as listed below: -Cardiac Monitoring: An order was placed for continuous cardiac monitoring. The monitor shows a rate of 50-70s with regular rhythm. -ECG: EKG independently interpreted by me reveals sinus bradycardia at 59 bpm. Sinus arrhythmia present. No significant ST segment changes to suggest STEMI. Intervals are within normal limits otherwise. Patient completed laboratory studies and imaging. Results independently interpreted by me are mild anemia that stable as compared to prior. No significant electrolyte derangements or kidney dysfunction. Procalcitonin is normal. LFTs are normal besides mild elevation alkaline phosphatase. Urinalysis shows blood as well as positive for nitrates and esterase. Significant pyuria present. No significant bacteriuria. Do feel this could represent a complicated infection given her history and recently being on multiple courses of antibiotics. CT abdomen/pelvis was obtained and showed evidence of worsening hydronephrosis as well as pyelonephritis. Do feel this fits the patient's clinical picture at this time. Patient was managed with IV fluid resuscitation as well as IV antibiotics. Patient required multiple doses of IV opiates for pain control. Urology was consulted and we discussed the case. They will follow the patient as an inpatient. Patient will require IV antibiotics and pain control as an inpatient. No evidence of sepsis at this time on lab workup or vital signs. She has remained hemodynamically stable. Patient was agreeable to admission. Ultimately, the decision was made to admit the patient for acute pyelonephritis with worsening hydronephrosis. I discussed the case with the hospitalist service via telephone/TigerText and they are agreeable to admit the patient to their services. Based on the above, including the patient's age, coexisting illnesses, labs, imaging, and exam findings the decision to treat as an inpatient. I discussed the patient with the hospitalist team who recommended admission to their services. They received the medications, treatments, interventions indicated above and their condition remained stable. I discussed my findings with the patient and their family and they understand and agree with the treatment plan. All patient / family questions were answered to their satisfaction. Consults/Care Managements Discussions: Per [facility] ER treatment provided: See above Procedures:none Critical Care: None The chart was completed utilizing [employer] Speech voice recognition software. Grammatical errors, random word insertions, pronoun errors, and incomplete sentences are an occasional consequence of this system due to software limitations, ambient noise, and hardware issues. Any formal questions or concerns about the content, text, or information contained within the body of this dictation should be directly addressed to the physician for clarification. Past Med/Surg History Problem List (Updated 04/13/25 @ 01:45 by Reggie Love DO) Flank pain (Acute) Hydroureteronephrosis (Acute) Acute pyelonephritis (Acute) Pyelonephritis Contraindication to anticoagulation therapy Hypotension Atrial fibrillation Elevated procalcitonin (Acute) Atrial fibrillation with rapid ventricular response (Acute) Generalized weakness (Acute) Rupture of kidney (Acute) LILLIANA (acute kidney injury) (Acute) Transaminitis (Acute) Sepsis (Acute) Atrial fibrillation with rapid ventricular response (Acute) Incontinence (Chronic) Adrenal nodule (Chronic) Renal cyst (Acute) Bilateral hydronephrosis (Chronic) Abdominal pain PSVT (paroxysmal supraventricular tachycardia) Elevated brain natriuretic peptide (BNP) level (Acute) Atrial tachycardia, paroxysmal Syncope (Acute) 01/2024 per records Dyspnea (Acute) Shortness of breath (Acute) PAF (paroxysmal atrial fibrillation) Sinus tachycardia (Acute) Palpitation (Acute) Hypokalemia Transaminitis Elevated LFTs (Acute) Encounter for pre-operative examination CYNTHIA (obstructive sleep apnea) (Chronic) Asthma, severe persistent (Chronic) Gastroparesis (Chronic) Celiac disease (Chronic) GERD (gastroesophageal reflux disease) (Chronic) IBS (irritable bowel syndrome) (Chronic) Hypothyroidism (Chronic) no current medication -- TSH normal without meds. CHARLES (iron deficiency anemia) (Chronic) ferrous sulfate QID. Dyslipidemia (Chronic) MRSA (methicillin resistant Staphylococcus aureus) (Chronic) 1999 dx nose septum wound 2019 dx in lungs Medical History Acute UTI (urinary tract infection) Elevated troponin NSVT (nonsustained ventricular tachycardia) - hx of nonsustained VT (isolated run on Zio without associated symptoms per cardio); intolerance to beta blockers Renal cyst per medical record, pt unsure Depression Port-A-Cath in place Bilateral hydronephrosis Chronic kidney disease stage 3 or 4 - follows with [facility] Nephrology Sari fish Hx of gastric ulcer Chronic gastritis GERD (gastroesophageal reflux disease) Migraines Chronic nausea Seasonal allergies Hypothyroidism Paroxysmal A-fib - follows with Dr. Aguirre, takes asa daily (not anticoagulated due to anemia and fall risk per cardio records ) - patient referred at last cardio appt 10/2024 for evaluation for left appendage occluder device Celiac disease Hx of renal calculi no surgical intervention needed Poor intravenous access PSVT (paroxysmal supraventricular tachycardia) - no current issues per patient Hx MRSA infection 1999 dx nose septum wound 2019 dx in lungs Gastroparesis IBS (irritable bowel syndrome) Dyslipidemia CHARLES (iron deficiency anemia) History of COVID-19 has had ~5 times - last had ~early 2023, no hospitalization. Orthostatic hypotension Follows with [facility] cardiology On midodrine Chronic anemia frequent iron and blood transfusions. Hypertension hx --> pt reports she is being treated for hypotension Adrenal cyst monitoring unchanged per 2024 imaging; benign per PCP Chronic back pain Degenerative disc disease Osteoarthritis Anxiety Mitral valve prolapse follows with Dr Aguirre Narcolepsy Chronic obstructive pulmonary disease uncontrolled, uses inhalers daily Sleep apnea CPAP + 2lpm of oxygen Surgical History H/O insertion of central venous access port power port placed due to poor IV access + frequent blood draws/iron/blood transfusions S/P spinal fusion C1 through L3 or L4 (~2021 at [facility]) History of cardioversion ~2019 History of cardiac radiofrequency ablation ~2014 [facility] History of bronchoscopy in the S/P trigger finger release right hand History of ankle surgery bilateral ankle repair with hardware H/O hand surgery with hardware (left) S/P GLENNY-BSO S/P surgery on nasal septum "collapsed septum" s/p post op infection that "ate away the septum" S/P nasal surgery multiple Hx of cholecystectomy History of arthroscopic knee surgery left Hx of cardiac cath "2009 - normal coronaries" (pt denies) History of esophagogastroduodenoscopy (EGD) History of colonoscopy History of dilatation and curettage Family History Other No family history of adverse response to anesthesia Social History Smoking Status: Never smoker Second Hand Exposure: No; Do You Dip or Chew Tobacco: No; Hx Alcohol Use: No Hx Substance Use: No Preferred Language: Cymraes Communication Ability: Effective Smt Technician Required: No Beliefs That Will Affect Care: None marital status: Current Living Situation: Spouse and Other Current Living Situation Comment: 4yr old twins at home Feels Safe at Home: Yes Assistive Devices: CPAP and Oxygen - at Night Allergies Allergies Allergy/AdvReac Type Severity Reaction Status Date / Time bee venom protein (honey bee) Allergy Severe ANAPHYLAXIS Verified 04/12/25 19:19 coconut Allergy Severe RASH; SOB Verified 04/12/25 19:19 gluten Allergy Severe CELIAC'S Verified 04/12/25 19:19 latex Allergy Severe Anaphylaxis Verified 04/12/25 19:19 Penicillins Allergy Severe Anaphylaxis Verified 04/12/25 19:19 Sulfa (Sulfonamide Allergy Severe Anaphylaxis Verified 04/12/25 19:19 Antibiotics) ROBER Inhibitors Allergy Intermediate RASH/TACHYC Verified 04/12/25 19:19 ARDIA cefaclor Allergy Intermediate CECLOR--RASH/UPSET Verified 04/12/25 19:19 STOMACH egg Allergy Intermediate RASH & Verified 04/12/25 19:19 Bloating Influenza Virus Vaccines Allergy Intermediate rash and Verified 04/12/25 19:19 bloating tetracycline Allergy Intermediate NAUSEA/VOMI Verified 04/12/25 19:19 TING/RASH Quinolones Allergy Unknown ALLERGY TO Verified 04/12/25 19:19 AVELOX ,CAN TAKE CIPRO OR LEVAQUIN W/O RXN Beta-Blockers AdvReac Intermediate intolerance Verified 04/12/25 19:19 (Beta-Adrenergic Bloc as per records lactose AdvReac Intermediate BLOATING; Verified 04/12/25 19:19 DIARRHEA; VOMITING Home Meds Home Medications Medication Instructions Recorded Confirmed aspirin 81 mg tablet,delayed 81 mg PO QAM 09/14/24 04/12/25 release atorvastatin 20 mg tablet 20 mg PO HS 09/14/24 04/12/25 cimetidine 400 mg tablet 400 mg PO BID 09/14/24 04/12/25 fexofenadine 180 mg tablet 180 mg PO QAM 09/14/24 04/12/25 fluticasone 250 mcg-salmeterol 50 1 inh inhalation BID 09/14/24 04/12/25 mcg/dose blistr powdr for inhalation (Advair Diskus) folic acid 1 mg tablet 1 mg PO BID 09/14/24 04/12/25 hyoscyamine sulfate 0.375 mg 0.375 mg PO Q6H PRN Abdominal Pain 09/14/24 04/12/25 tablet,extended release,12 hr ipratropium 20 mcg-albuterol 100 1 puff inhalation QID PRN 09/14/24 04/12/25 mcg/actuation mist for inhalation Shortness Of Breath Or Wheezing (Combivent Respimat) levothyroxine 100 mcg capsule 100 mcg PO QAM 09/14/24 04/12/25 montelukast 10 mg tablet 10 mg PO HS 09/14/24 04/12/25 multivitamin 1 tab PO QAM 09/14/24 04/12/25 rabeprazole 20 mg tablet,delayed 40 mg PO BID 09/14/24 04/12/25 release (AcipHex) sucralfate 1 gram tablet 1 g PO ACHS 09/14/24 04/12/25 topiramate 100 mg tablet 100 mg PO BID 09/14/24 04/12/25 CPAP Machine 09/15/24 03/11/25 amitriptyline 75 mg tablet 75 mg PO HS 09/15/24 04/12/25 azelastine 137 mcg (0.1 %) nasal 1 spray intranasal BID 09/15/24 04/12/25 spray levalbuterol HCl 1.25 mg/3 mL 1.25 mg inhalation .Q4-6H PRN 09/15/24 04/12/25 solution for nebulization Shortness Of Breath Or Wheezing ondansetron 4 mg disintegrating 4 mg PO Q8H PRN Nausea And Vomiting 09/15/24 04/12/25 tablet polyethylene glycol 3350 17 gram 17 g PO QAM 09/15/24 04/12/25 oral powder packet (Miralax) epinephrine 0.3 mg/0.3 mL 0.3 mg subcut UD PRN Anaphylaxis 03/11/25 04/12/25 injection, auto-injector Previous Rx's Medication Instructions Recorded oxybutynin chloride 5 mg tablet 5 mg PO Q8H PRN bladder spasms #9 03/08/25 tabs midodrine 5 mg tablet 5 mg PO TID #90 tabs 03/18/25 metoprolol succinate 25 mg 37.5 mg (1.5 x 25 mg) PO BID #90 04/02/25 tablet,extended release 24 hr tabs Results & Data (ED) Vital Signs Vital Signs - 24 hr 04/12/25 16:47 04/12/25 17:59 04/12/25 18:03 Temperature 36.7 C Temperature Source Skin Pulse Rate 69 Pulse Rate [Apical] 61 Pulse Rate from SpO2 Sensor Pulse Rhythm [Apical] Respiratory Rate 19 21 Respiratory Effort / Characteristics Non-Labored Spontaneous Non-Labored Spontaneous Respiratory Depth Normal Normal Respiratory Pattern Regular Regular Blood Pressure 164/96 H Blood Pressure [Right Arm] 167/90 H Blood Pressure Mean 118 Blood Pressure Mean [Right Arm] 115 Pulse Oximetry 98 97 95 Oxygen Delivery Method Room Air Room Air Sepsis Recent Fever Within 48 Hours No Sepsis New/Unexplained Change in Mental Status N/A Sepsis Action Taken by Nursing No Action Required 04/12/25 18:39 04/12/25 18:49 04/12/25 19:30 Temperature Temperature Source Pulse Rate 64 74 Pulse Rate [Apical] 55 L Pulse Rate from SpO2 Sensor Pulse Rhythm [Apical] Regular Respiratory Rate 18 20 Respiratory Effort / Characteristics Non-Labored Spontaneous Respiratory Depth Normal Respiratory Pattern Regular Blood Pressure 156/83 H Blood Pressure [Right Arm] 182/84 H Blood Pressure Mean 117 Blood Pressure Mean [Right Arm] 116 Pulse Oximetry 95 93 Oxygen Delivery Method Room Air Room Air Sepsis Recent Fever Within 48 Hours Sepsis New/Unexplained Change in Mental Status Sepsis Action Taken by Nursing 04/12/25 20:30 04/12/25 20:30 04/12/25 20:30 Temperature Temperature Source Pulse Rate 72 70 Pulse Rate [Apical] Pulse Rate from SpO2 Sensor 71 Pulse Rhythm [Apical] Respiratory Rate 17 18 Respiratory Effort / Characteristics Respiratory Depth Respiratory Pattern Blood Pressure 143/87 H 143/87 H Blood Pressure [Right Arm] Blood Pressure Mean 103 103 Blood Pressure Mean [Right Arm] Pulse Oximetry 94 95 Oxygen Delivery Method Sepsis Recent Fever Within 48 Hours Sepsis New/Unexplained Change in Mental Status Sepsis Action Taken by Nursing 04/12/25 21:00 04/12/25 21:30 04/12/25 22:30 Temperature Temperature Source Pulse Rate 74 73 65 Pulse Rate [Apical] Pulse Rate from SpO2 Sensor Pulse Rhythm [Apical] Respiratory Rate 18 18 17 Respiratory Effort / Characteristics Respiratory Depth Respiratory Pattern Blood Pressure 141/91 H 137/73 144/84 H Blood Pressure [Right Arm] Blood Pressure Mean 110 91 101 Blood Pressure Mean [Right Arm] Pulse Oximetry 94 93 96 Oxygen Delivery Method Room Air Room Air Sepsis Recent Fever Within 48 Hours Sepsis New/Unexplained Change in Mental Status Sepsis Action Taken by Nursing 04/12/25 23:07 04/13/25 00:07 Temperature Temperature Source Pulse Rate 69 61 Pulse Rate [Apical] Pulse Rate from SpO2 Sensor Pulse Rhythm [Apical] Respiratory Rate 16 Respiratory Effort / Characteristics Respiratory Depth Respiratory Pattern Blood Pressure 147/89 H Blood Pressure [Right Arm] Blood Pressure Mean 108 Blood Pressure Mean [Right Arm] Pulse Oximetry 96 Oxygen Delivery Method Sepsis Recent Fever Within 48 Hours Sepsis New/Unexplained Change in Mental Status Sepsis Action Taken by Nursing Laboratory Data 04/12/25 18:57 04/12/25 17:56 Lab Results 04/12/25 04/12/25 04/12/25 Range/Units 17:56 17:56 17:56 WBC Cancelled RBC Cancelled Hgb Cancelled Hct Cancelled MCV Cancelled MCH Cancelled MCHC Cancelled RDW Std Deviation Cancelled RDW Coeff of Reginaldo Cancelled Plt Count Cancelled MPV Cancelled Immature Gran % (Auto) Cancelled Neut % (Auto) Cancelled Lymph % (Auto) Cancelled Pacific % (Auto) Cancelled Eos % (Auto) Cancelled Baso % (Auto) Cancelled Neut # (Auto) Cancelled Lymph # (Auto) Cancelled [place] # (Auto) Cancelled Eos # (Auto) Cancelled Baso # (Auto) Cancelled Immature Gran # (Auto) Cancelled Absolute Nucleated RBC Cancelled Nucleated RBC % (auto) Cancelled Neutrophils % (Manual) Cancelled Band Neutrophils % Cancelled Lymphocytes % (Manual) Cancelled Prolymphocyte % Cancelled Reactive Lymphs % (Man) Cancelled Monocytes % (Manual) Cancelled Eosinophils % (Manual) Cancelled Basophils % (Manual) Cancelled Metamyelocytes % (Man) Cancelled Myelocytes % (Man) Cancelled Promyelocytes % (Man) Cancelled Blast Cells % (Manual) Cancelled Plasma Cell % (Manual) Cancelled Other Cells % Cancelled Nucleated RBC % Cancelled Neutrophils # (Manual) Cancelled Band Neutrophils # Cancelled Total Absolute Neuts Cancelled Lymphocytes # (Manual) Cancelled Prolymphocyte # Cancelled Reactive Lymphs # Cancelled Total Abs Lymphocytes Cancelled Monocytes # (Manual) Cancelled Eosinophils # (Manual) Cancelled Basophils # (Manual) Cancelled Metamyelocytes # (Man) Cancelled Myelocytes # (Manual) Cancelled Promyelocytes # (Man) Cancelled Blast Cells # (Man) Cancelled Plasma Cell # (Manual) Cancelled Other Cells # Cancelled Nucleated RBCs # (Man) Cancelled Hypersegmented Neuts Cancelled Hyposegmented Neuts Cancelled Hypogranular Neuts Cancelled Large Granular Lymphs Cancelled # Lrg Granular Lymphs Cancelled Hairy Cells Cancelled Smudge Cells Cancelled Toxic Granulation Cancelled Toxic Vacuolation Cancelled Dohle Bodies Cancelled Marti Rods Cancelled Platelet Estimate Cancelled Hypogranular Platelets Cancelled Giant Platelets Cancelled Platelet Satelliting Cancelled RBC Morphology Cancelled Polychromasia Cancelled Hypochromasia Cancelled Poikilocytosis Cancelled Basophilic Stippling Cancelled Anisocytosis Cancelled Microcytosis Cancelled Macrocytosis Cancelled Spherocytes Cancelled Pappenheimer Bodies Cancelled Sickle Cells Cancelled Target Cells Cancelled Tear Drop Cells Cancelled Ovalocytes Cancelled Stomatocytes Cancelled Connel[place] Bodies Cancelled Echinocytes Cancelled Acanthocytes (Spur) Cancelled Rouleaux Cancelled RBC Agglutinates Cancelled Schistocytes Cancelled Sezary Cell Cancelled Sodium 138 (136-145) mmol/L Potassium 4.2 (3.5-5.1) mmol/L Chloride 114 H (98-107) mmol/L Carbon Dioxide 16 L (21-32) mmol/L Anion Gap 8 (3-11) BUN 17 (6-23) mg/dl Creatinine 0.88 (0.6-1.2) mg/dl Est Cr Clr Drug Dosing 53.1 ml/min eGFR 73.80 BUN/Creatinine Ratio 19.3 (10-20) Glucose 96 (70-99(Fasting)) mg/dl Lactate 0.7 (0.4-2.0) mmol/L Calcium 9.4 (8.6-10.3) mg/dl Magnesium 1.7 Cancelled (1.7-2.4) mg/dl Total Bilirubin 0.5 (0.2-1.0) mg/dl AST 19 (13-39) U/L ALT 19 (7-52) U/L Alkaline Phosphatase 256 H (34-104) U/L Troponin I High Sens 11.5 Cancelled (0-14) pg/ml Total Protein 6.7 (6.0-8.3) gm/dl Albumin 3.7 (3.4-5.0) gm/dl Globulin 3.0 (2.5-4.0) gm/dl Albumin/Globulin Ratio 1.2 (0.9-2) Procalcitonin 0.07 (0-0.5) ng/ml Urine Color Urine Appearance (Clear) Urine pH (4.5-7.5) Ur Specific [place] (1.000-1.030) Urine Protein (Negative) Urine Glucose (UA) (Negative) Urine Ketones (Negative) Urine Blood (Negative) Urine Nitrite (Negative) Urine Bilirubin (Negative) Urine Urobilinogen (Negative) Ur Leukocyte Esterase (Negative) Urine WBC (Auto) (0-5) /hpf Urine RBC (Auto) (0-2) /hpf U Hyaline Cast (Auto) (0-2) /lpf U Epithel Cells (Auto) (0-2) /hpf Urine Bacteria (Auto) (None Seen) Urine Yeast (None Prsent) Urine Comment Blood Parasites ID Cancelled 04/12/25 04/12/25 Range/Units 18:57 20:05 WBC 9.24 RBC 3.83 L Hgb 11.8 L Hct 38.8 MCV 101.3 H MCH 30.8 MCHC 30.4 L RDW Std Deviation 58.2 H RDW Coeff of Reginaldo 15.7 H Plt Count 248 MPV 9.7 Immature Gran % (Auto) 0.3 Neut % (Auto) 77.5 Lymph % (Auto) 14.4 Pacific % (Auto) 5.7 Eos % (Auto) 1.6 Baso % (Auto) 0.5 Neut # (Auto) 7.15 H Lymph # (Auto) 1.33 Pacific # (Auto) 0.53 Eos # (Auto) 0.15 Baso # (Auto) 0.05 Immature Gran # (Auto) 0.03 Absolute Nucleated RBC Nucleated RBC % (auto) Neutrophils % (Manual) Band Neutrophils % Lymphocytes % (Manual) Prolymphocyte % Reactive Lymphs % (Man) Monocytes % (Manual) Eosinophils % (Manual) Basophils % (Manual) Metamyelocytes % (Man) Myelocytes % (Man) Promyelocytes % (Man) Blast Cells % (Manual) Plasma Cell % (Manual) Other Cells % Nucleated RBC % Neutrophils # (Manual) Band Neutrophils # Total Absolute Neuts Lymphocytes # (Manual) Prolymphocyte # Reactive Lymphs # Total Abs Lymphocytes Monocytes # (Manual) Eosinophils # (Manual) Basophils # (Manual) Metamyelocytes # (Man) Myelocytes # (Manual) Promyelocytes # (Man) Blast Cells # (Man) Plasma Cell # (Manual) Other Cells # Nucleated RBCs # (Man) Hypersegmented Neuts Hyposegmented Neuts Hypogranular Neuts Large Granular Lymphs # Lrg Granular Lymphs Hairy Cells Smudge Cells Toxic Granulation Toxic Vacuolation Dohle Bodies Marti Rods Platelet Estimate Hypogranular Platelets Giant Platelets Platelet Satelliting RBC Morphology Polychromasia Hypochromasia Poikilocytosis Basophilic Stippling Anisocytosis Microcytosis Macrocytosis Spherocytes Pappenheimer Bodies Sickle Cells Target Cells Tear Drop Cells Ovalocytes Stomatocytes Connelly-[place] Bodies Echinocytes Acanthocytes (Spur) Rouleaux RBC Agglutinates Schistocytes Sezary Cell Sodium (136-145) mmol/L Potassium (3.5-5.1) mmol/L Chloride (98-107) mmol/L Carbon Dioxide (21-32) mmol/L Anion Gap (3-11) BUN (6-23) mg/dl Creatinine (0.6-1.2) mg/dl Est Cr Clr Drug Dosing ml/min eGFR BUN/Creatinine Ratio (10-20) Glucose (70-99(Fasting)) mg/dl Lactate (0.4-2.0) mmol/L Calcium (8.6-10.3) mg/dl Magnesium (1.7-2.4) mg/dl Total Bilirubin (0.2-1.0) mg/dl AST (13-39) U/L ALT (7-52) U/L Alkaline Phosphatase (34-104) U/L Troponin I High Sens (0-14) pg/ml Total Protein (6.0-8.3) gm/dl Albumin (3.4-5.0) gm/dl Globulin (2.5-4.0) gm/dl Albumin/Globulin Ratio (0.9-2) Procalcitonin (0-0.5) ng/ml Urine Color Dark Yellow Urine Appearance Cloudy A (Clear) Urine pH 5.0 (4.5-7.5) Ur Specific [place] 1.041 H (1.000-1.030) Urine Protein 1+ H (Negative) Urine Glucose (UA) Negative (Negative) Urine Ketones Negative (Negative) Urine Blood 3+ H (Negative) Urine Nitrite Positive A (Negative) Urine Bilirubin Negative (Negative) Urine Urobilinogen Negative (Negative) Ur Leukocyte Esterase 2+ H (Negative) Urine WBC (Auto) >50 H (0-5) /hpf Urine RBC (Auto) >20 H (0-2) /hpf U Hyaline Cast (Auto) 3-5 H (0-2) /lpf U Epithel Cells (Auto) 0-2 (0-2) /hpf Urine Bacteria (Auto) None Seen (None Seen) Urine Yeast Present A (None Prsent) Urine Comment Blood Parasites ID Administered Medications Discontinued Medications Fentanyl Citrate (Fentanyl Citrate Pf 100 Mcg/2 Ml Vial) 50 mcg IV NOW ONE Stop: 04/12/25 21:44 Last Admin: 04/12/25 22:28 Dose: 50 mcg Documented By: MARIE Sodium Chloride (Nss) 1,000 mls @ 999 mls/hr IV .Q1H1M JAYSHREE Stop: 04/12/25 18:45 Last Infusion: 04/12/25 20:28 Dose: Infused Documented By: Admin: 04/12/25 18:33 Dose: 999 mls/hr Documented By: MARIE Ceftriaxone Sodium (Rocephin) 1,000 mg in 50 mls @ 100 mls/hr IV NOW STA Stop: 04/12/25 22:12 Last Infusion: 04/12/25 23:10 Dose: Infused Documented By: Admin: 04/12/25 22:32 Dose: 100 mls/hr Documented By: MARIE Acetaminophen (Ofirmev) 1,000 mg in 100 mls @ 400 mls/hr IV NOW STA Stop: 04/13/25 01:17 Last Infusion: 04/13/25 01:24 Dose: Infused Documented By: Admin: 04/13/25 01:08 Dose: 400 mls/hr Documented By: REMIGIO Ioversol (Optiray 320 100ml) 93 ml IV ONCE ONE Stop: 04/12/25 19:16 Last Admin: 04/12/25 19:15 Dose: 93 ml Documented By: SAILAJA Lidocaine HCl (Lidocaine 2% Jelly 5 Ml Tube) Confirm Administered Dose 5 ml EXT .STK-MED ONE Stop: 04/12/25 18:15 Last Admin: 04/12/25 19:52 Dose: Not Given Documented By: MARIE Lidocaine HCl (Lidocaine 2% Jelly 5 Ml Tube) 5 ml EXT NOW ONE Stop: 04/12/25 19:45 Last Admin: 04/12/25 19:52 Dose: 5 ml Documented By: MARIE Morphine Sulfate (Morphine Sulfate 4 Mg/Ml 1 Ml Carp\\Vial) 4 mg IV NOW STA Stop: 04/12/25 17:35 Last Admin: 04/12/25 18:36 Dose: 4 mg Documented By: MARIE Morphine Sulfate (Morphine Sulfate 4 Mg/Ml 1 Ml Carp\\Vial) 4 mg IV NOW STA Stop: 04/12/25 19:45 Last Admin: 04/12/25 19:52 Dose: 4 mg Documented By: MARIE Ondansetron HCl (Ondansetron Inj 2 Mg/Ml 2 Ml Vial) 4 mg IV NOW STA Stop: 04/12/25 18:09 Last Admin: 04/12/25 18:36 Dose: 4 mg Documented By: MARIE Imaging Data Radiologist's Impression: Chest X-Ray 04/12/25 16:52 EXAM: X-ray chest one-view portable CLINICAL HISTORY: Short of breath PRIORS: 03/27/2025 TECHNIQUE: Erect portable AP FINDINGS: A right-sided Mediport catheter noted with distal tip at the atriocaval junction, unchanged. Cervical hardware at the base of the neck. Chest is well-expanded. No infiltrate, effusion or congestive changes. No pneumothorax. Heart size unchanged. [place] structures unremarkable. IMPRESSION: No plain film evidence of an acute osseous abnormality. Electronically signed by Linda Cha 04-12-2025 6:54 PM Abdomen/Pelvis CT 04/12/25 17:34 Clinical History: Flank pain Technique: Axial computed tomography images were obtained of the abdomen and pelvis after the administration of intravenous contrast. Comparison is made to the prior CT dated 03/27/2025. Findings: The liver is overall of normal size, attenuation, and contour with no sign of cirrhosis or significant fatty infiltration. No liver mass lesion is seen. The portal vein is patent. The gallbladder has been removed. There is worsened intrahepatic and extra hepatic bile duct dilatation, with the common bile duct measuring up to 16 mm. No clear obstructing lesion is identified The spleen is of normal size. No focal splenic lesion is evident. The pancreas appears normal with no sign of acute or chronic pancreatitis and no mass lesion noted. The pancreatic duct is of normal caliber. There is an unchanged 3.3 cm left adrenal mass. The right adrenal gland appears normal Bilateral ureteral stents are again seen. There is worsened mild right hydronephrosis and there is worsened severe left hydronephrosis. No clear obstructing lesion is seen. There is mild left perinephric stranding. There is no clear evidence of pyelonephritis. There is mild wall thickening of the right renal pelvis. No definite renal mass lesion is identified. There are small bilateral renal cysts, measuring up to 1 cm The aorta is of normal caliber. No abdominal adenopathy is seen. There is prominence of the gastric wall that is likely due to the decompressed state. There is no sign of small bowel obstruction. The colon appears unremarkable. The appendix appears normal also. No free intraperitoneal fluid or air is identified. No distal ureteral or bladder calculi are seen. The bladder is decompressed, containing a Jose catheter. The iliac arteries are of normal caliber. No pelvic adenopathy is noted. No fracture is identified. No focal osseous lesion is seen Impression: 1. Severe left hydronephrosis and mild right hydronephrosis, both worsened since the prior study. No clear obstructing calculus or mass is identified 2. Unchanged bilateral ureteral stents 3. Mild wall thickening of the right renal pelvis. This is nonspecific in nature but raises the possibility of infection. There is no definite sign of pyelonephritis 4. Small bilateral renal cysts 5. Interval worsening of bile duct dilatation. No clear obstructing lesion is seen. ERCP or MRCP could be considered for further evaluation 6. Unchanged left adrenal nodule that may be sent a benign adenoma but is indeterminate in nature ACT 112: Positive. There are findings on this exam that require communication between the performing entity and the patient following Patient Test Result Information Act ([place] ACT 112) guidelines. Electronically signed by Darinel Hilliard 04-12-2025 8:05 PM Discharge Plan Visit Data Chief Complaint: Hypotension Stated Complaint: AFIB, KIDNEY INFECTION LOW BP ED Provider: Reggie Love Discharge Problem: Acute pyelonephritis, Hydroureteronephrosis, Flank pain Patient Disposition: Admitted As Inpatient Condition: Serious Forms Stand Alone Forms: [employer]Whirl Prescriptions Prescriptions: No Action fluticasone propion-salmeterol [Advair Diskus] 250-50 mcg/dose Blister With Device 1 inh INHALATION BID atorvastatin 20 mg Tablet 20 mg PO HS cimetidine 400 mg Tablet 400 mg PO BID Rx Instructions: administer with meals hyoscyamine sulfate 0.375 mg Tablet Extended Release 12 Hr 0.375 mg PO Q6H PRN (Reason: Abdominal Pain) folic acid 1 mg Tablet 1 mg PO BID montelukast 10 mg Tablet 10 mg PO HS levothyroxine 100 mcg Capsule 100 mcg PO QAM Combivent Respimat 20-100 mcg/actuation Mist 1 puff INHALATION QID PRN (Reason: Shortness Of Breath Or Wheezing) Rx Instructions: space evenly during waking hours rabeprazole [AcipHex] 20 mg Tablet,Delayed Release (Dr/Ec) 40 mg PO BID sucralfate 1 gram Tablet 1 g PO ACHS fexofenadine 180 mg Tablet 180 mg PO QAM aspirin 81 mg Tablet,Delayed Release (Dr/Ec) 81 mg PO QAM topiramate 100 mg Tablet 100 mg PO BID multivitamin Tablet 1 tab PO QAM levalbuterol HCl 1.25 mg/3 mL Solution For Nebulization 1.25 mg INHALATION .Q4-6H PRN (Reason: Shortness Of Breath Or Wheezing) amitriptyline 75 mg Tablet 75 mg PO HS ondansetron 4 mg Tablet,Disintegrating 4 mg PO Q8H PRN (Reason: Nausea And Vomiting) polyethylene glycol 3350 [Miralax] 17 gram Powder In Packet 17 g PO QAM azelastine 137 mcg (0.1 %) Heber,Non-Aerosol 1 spray INTRANASAL BID Rx Instructions: administer into each nostril (DME) CPAP Machine Misc Rx Instructions: 1 LPM bled through CPAP during hours of sleep oxybutynin chloride 5 mg tablet 5 mg PO Q8H PRN (Reason: bladder spasms) Qty: 9 0RF epinephrine 0.3 mg/0.3 mL auto-injector 0.3 mg subcut UD PRN (Reason: Anaphylaxis) midodrine 5 mg tablet 5 mg PO TID Qty: 90 0RF Rx Instructions: do not give last dose of day after 6PM or within 4 hrs of bedtime metoprolol succinate 25 mg Tablet Extended Release 24 Hr 37.5 mg PO BID Qty: 90 0RF Referrals Referrals: Vicki Watson MD [Primary Care Provider] -
[2025-04-12] MEDS: SODIUM CHLORIDE 0.9% 1,000 ML IV SCH (18:33)
[2025-04-12] MEDS: MoRPHine SULFATE 4 MG/ML 1 ML CARP\\VIAL IV STA ×2 (18:36→19:52)
[2025-04-12] MEDS: ONDANSETRON INJ 2 MG/ML 2 ML VIAL IV STA (18:36)
[2025-04-12 18:43] LABS: Alanine Aminotransferase 19.0 U/L (7-52); Albumin Globulin Ratio 1.2 (0.9-2); Albumin Level 3.7 gm/dl (3.4-5.0); Alkaline Phosphatase 256.0 U/L (34-104); Anion Gap 8.0 (3-11); Bilirubin,Total 0.5 mg/dl (0.2-1.0); Blood Urea Nitrogen 17.0 mg/dl (6-23); Calcium 9.4 mg/dl (8.6-10.3); Carbon Dioxide 16.0 mmol/L (21-32); Chloride 114.0 mmol/L (98-107); Creatinine Clr Calc Pharmacy 53.1 ml/min; Globulin 3.0 gm/dl (2.5-4.0); Glucose 96.0 mg/dl (70-99(Fasting)); Magnesium 1.7 mg/dl (1.7-2.4); Potassium 4.2 mmol/L (3.5-5.1); Sodium 138.0 mmol/L (136-145); Total Protein 6.7 gm/dl (6.0-8.3)
--- NOTE | 2025-04-12 18:55 | XRay Report ---
EXAM: X-ray chest one-view portable CLINICAL HISTORY: Short of breath PRIORS: 03/27/2025 TECHNIQUE: Erect portable AP FINDINGS: A right-sided Mediport catheter noted with distal tip at the atriocaval junction, unchanged. Cervical hardware at the base of the neck. Chest is well-expanded. No infiltrate, effusion or congestive changes. No pneumothorax. Heart size unchanged. Ostia structures unremarkable. IMPRESSION: No plain film evidence of an acute osseous abnormality. Electronically signed by Linda Cha 04-12-2025 6:54 PM
[2025-04-12 19:15] LABS: Hematocrit (blood only) 38.8 % (37.0-47.0); Hemoglobin 11.8 g/dl (12.0-16.0); Immature Granulocytes # (auto) 0.03 K/uL (0.01-0.20); Immature Granulocytes % (auto) 0.3 %; Mean Corpuscular Hemoglobin 30.8 pg (25.0-34.0); Mean Corpuscular Volume 101.3 fL (80.0-100.0); Platelet Count 248 K/uL (130-400); RDW Standard Deviation 58.2 fL (36.4-46.3); Red Blood Count 3.83 M/uL (4.20-5.40); White Blood Count 9.24 K/ul (4.8-10.8)
[2025-04-12] MEDS: OPTIRAY 320 100ml IV ONE (19:15)
[2025-04-12] MEDS: LIDOCAINE 2% JELLY 5 ML TUBE EXT ONE ×2 (19:52)
--- NOTE | 2025-04-12 20:05 | CT Scan Report ---
Clinical History: Flank pain Technique: Axial computed tomography images were obtained of the abdomen and pelvis after the administration of intravenous contrast. Comparison is made to the prior CT dated 03/27/2025. Findings: The liver is overall of normal size, attenuation, and contour with no sign of cirrhosis or significant fatty infiltration. No liver mass lesion is seen. The portal vein is patent. The gallbladder has been removed. There is worsened intrahepatic and extra hepatic bile duct dilatation, with the common bile duct measuring up to 16 mm. No clear obstructing lesion is identified The spleen is of normal size. No focal splenic lesion is evident. The pancreas appears normal with no sign of acute or chronic pancreatitis and no mass lesion noted. The pancreatic duct is of normal caliber. There is an unchanged 3.3 cm left adrenal mass. The right adrenal gland appears normal Bilateral ureteral stents are again seen. There is worsened mild right hydronephrosis and there is worsened severe left hydronephrosis. No clear obstructing lesion is seen. There is mild left perinephric stranding. There is no clear evidence of pyelonephritis. There is mild wall thickening of the right renal pelvis. No definite renal mass lesion is identified. There are small bilateral renal cysts, measuring up to 1 cm The aorta is of normal caliber. No abdominal adenopathy is seen. There is prominence of the gastric wall that is likely due to the decompressed state. There is no sign of small bowel obstruction. The colon appears unremarkable. The appendix appears normal also. No free intraperitoneal fluid or air is identified. No distal ureteral or bladder calculi are seen. The bladder is decompressed, containing a Jose catheter. The iliac arteries are of normal caliber. No pelvic adenopathy is noted. No fracture is identified. No focal osseous lesion is seen Impression: 1. Severe left hydronephrosis and mild right hydronephrosis, both worsened since the prior study. No clear obstructing calculus or mass is identified 2. Unchanged bilateral ureteral stents 3. Mild wall thickening of the right renal pelvis. This is nonspecific in nature but raises the possibility of infection. There is no definite sign of pyelonephritis 4. Small bilateral renal cysts 5. Interval worsening of bile duct dilatation. No clear obstructing lesion is seen. ERCP or MRCP could be considered for further evaluation 6. Unchanged left adrenal nodule that may be sent a benign adenoma but is indeterminate in nature ACT 112: Positive. There are findings on this exam that require communication between the performing entity and the patient following Patient Test Result Information Act ([place] ACT 112) guidelines. Electronically signed by Darinel Hilliard 04-12-2025 8:05 PM
[2025-04-12 21:37] LABS: Appearance Urine Cloudy (Clear); Bacteria Urine Automated None Seen (None Seen); Epithelial Cell Urine Auto 0-2 /hpf (0-2); Glucose Urine UA Negative (Negative); RBC Urine Automated >20 /hpf (0-2); WBC Urine Automated >50 /hpf (0-5)
[2025-04-12] MEDS: cefTRIAXone SODIUM 1,000 MG/50 ML BAG IV STA (22:32)
--- NOTE | 2025-04-13 00:56 | Urology Consultation ---
Date of Consultation April 13, 2025 Assessment & Plan (1) Flank pain: (2) Acute UTI (urinary tract infection): (3) Hydroureteronephrosis: Plan I discussed with the treating emergent physician and the patient is being admitted on the hospitalist service. Urologic recommendations are as follows: Antibiotics in form of Rocephin have been initiated Appropriate cultures have been sent and these can be followed and antibiotics to be tailored based on these results At the present time the patient notes that she is not having any difficulty urinating. Patient should be monitored for signs of urinary retention and if this occurs consideration be given to placing a Jose catheter Patient does have chronic indwelling ureteral stents and appears to have somewhat worsening hydronephrosis on CT scan. Will therefore make the patient empirically n.p.o. and should be evaluated by Dr. Williamson the morning of 04/13/2025 to determine if cystoscopy is required for potential stent exchange At the time of my interview the patient was noted to be normotensive without tachycardia or fever and was nontoxic-appearing Additional recommendations were forthcoming based on her clinical course as it Attending Note: Agree with above. Patient has hernia repair at end of the month. Can maintain stents until after surgery vs remove prior. May want to move forward with stent removal in coming weeks prior to abdominal surgery. History of Present Illness Reason for Consultation: Hydronephrosis with indwelling ureteral stents History of Present Illness This is a 64-year-old female who is well-known to [facility] physician [facility] urology. She typically follows with Dr. Williamson. The patient has bilateral ureteral stents in place and she notes that they were placed by Dr. Williamson on March 08 of this year. Patient notes that she has had ongoing issues with flank pain as well as urinary tract infections and she notes that she was supposed to have her ureteral stents removed on April 24 of this year. She further reports that she was supposed to have an incisional hernia repaired and the surgery had to be delayed, also delaying her ureteral stent removal. She presented to the emergency department today secondary to worsening left flank pain. She does note that the pain has been present for approximately 1 month but got worse over the past 24 to 48 hours. She denies any fevers, shakes, or chills but did report nausea without vomiting. She also reports dysuria, urinary frequency, and hematuriaall of the symptoms are similar to what she experienced when she had similar urinary tract infection so she presented to the emergency department. Since arrival to hospital patient has had labs and imaging which independent reviewed. Chest x-ray showed no evidence of pneumonia, or congestive heart failure. A CT scan abdomen pelvis was performed that showed patient had severe left-sided hydronephrosis and mild right hydronephrosis which appeared to be somewhat worse when compared to prior CT scans. No clear obstructing kidney stones or masses were noted. Patient was noted to have bilateral ureteral sten ts in place. There are some thickening of the right renal pelvis raising the concern of infection. There were no definite CT scan findings indicative of pyelonephritis. Labs included CBC your white blood cell count was normal, as was the platelet count. Hemoglobin was 11.8 with a normal hematocrit. Chemistry profile showed sodium and potassium were normal. The BUN and creatinine were also noted to be normal. Urinalysis showed cloudy urine which was positive for nitrites. She was noted to have 2+ leukocyte esterase and pyuria with greater than 50 white blood cells per high-power field. There is no bacteria noted on the study but there was yeast. At the time my interview she was resting comfortably in bed and she was in no distress Allergies Allergy/AdvReac Type Severity Reaction Status Date / Time bee venom protein (honey bee) Allergy Severe ANAPHYLAXIS Verified 04/12/25 19:19 coconut Allergy Severe RASH; SOB Verified 04/12/25 19:19 gluten Allergy Severe CELIAC'S Verified 04/12/25 19:19 latex Allergy Severe Anaphylaxis Verified 04/12/25 19:19 Penicillins Allergy Severe Anaphylaxis Verified 04/12/25 19:19 Sulfa (Sulfonamide Allergy Severe Anaphylaxis Verified 04/12/25 19:19 Antibiotics) ROBER Inhibitors Allergy Intermediate RASH/TACHYC Verified 04/12/25 19:19 ARDIA cefaclor Allergy Intermediate CECLOR--RASH/UPSET Verified 04/12/25 19:19 STOMACH egg Allergy Intermediate RASH & Verified 04/12/25 19:19 Bloating Influenza Virus Vaccines Allergy Intermediate rash and Verified 04/12/25 19:19 bloating tetracycline Allergy Intermediate NAUSEA/VOMI Verified 04/12/25 19:19 TING/RASH Quinolones Allergy Unknown ALLERGY TO Verified 04/12/25 19:19 AVELOX ,CAN TAKE CIPRO OR LEVAQUIN W/O RXN Beta-Blockers AdvReac Intermediate intolerance Verified 04/12/25 19:19 (Beta-Adrenergic Bloc as per records lactose AdvReac Intermediate BLOATING; Verified 04/12/25 19:19 DIARRHEA; VOMITING Home Medications Medication Instructions Recorded Confirmed Type aspirin 81 mg tablet,delayed 81 mg PO QAM 09/14/24 04/12/25 History release atorvastatin 20 mg tablet 20 mg PO HS 09/14/24 04/12/25 History cimetidine 400 mg tablet 400 mg PO BID 09/14/24 04/12/25 History fexofenadine 180 mg tablet 180 mg PO QAM 09/14/24 04/12/25 History fluticasone 250 mcg-salmeterol 50 1 inh inhalation BID 09/14/24 04/12/25 History mcg/dose blistr powdr for inhalation (Advair Diskus) folic acid 1 mg tablet 1 mg PO BID 09/14/24 04/12/25 History hyoscyamine sulfate 0.375 mg 0.375 mg PO Q6H PRN Abdominal Pain 09/14/24 04/12/25 History tablet,extended release,12 hr ipratropium 20 mcg-albuterol 100 1 puff inhalation QID PRN 09/14/24 04/12/25 History mcg/actuation mist for inhalation Shortness Of Breath Or Wheezing (Combivent Respimat) levothyroxine 100 mcg capsule 100 mcg PO QAM 09/14/24 04/12/25 History montelukast 10 mg tablet 10 mg PO HS 09/14/24 04/12/25 History multivitamin 1 tab PO QAM 09/14/24 04/12/25 History rabeprazole 20 mg tablet,delayed 40 mg PO BID 09/14/24 04/12/25 History release (AcipHex) sucralfate 1 gram tablet 1 g PO ACHS 09/14/24 04/12/25 History topiramate 100 mg tablet 100 mg PO BID 09/14/24 04/12/25 History CPAP Machine 09/15/24 03/11/25 History amitriptyline 75 mg tablet 75 mg PO HS 09/15/24 04/12/25 History azelastine 137 mcg (0.1 %) nasal 1 spray intranasal BID 09/15/24 04/12/25 History spray levalbuterol HCl 1.25 mg/3 mL 1.25 mg inhalation .Q4-6H PRN 09/15/24 04/12/25 History solution for nebulization Shortness Of Breath Or Wheezing ondansetron 4 mg disintegrating 4 mg PO Q8H PRN Nausea And Vomiting 09/15/24 04/12/25 History tablet polyethylene glycol 3350 17 gram 17 g PO QAM 09/15/24 04/12/25 History oral powder packet (Miralax) oxybutynin chloride 5 mg tablet 5 mg PO Q8H PRN bladder spasms #9 03/08/25 04/12/25 Rx tabs epinephrine 0.3 mg/0.3 mL 0.3 mg subcut UD PRN Anaphylaxis 03/11/25 04/12/25 History injection, auto-injector midodrine 5 mg tablet 5 mg PO TID #90 tabs 03/18/25 04/12/25 Rx metoprolol succinate 25 mg 37.5 mg (1.5 x 25 mg) PO BID #90 04/02/25 04/12/25 Rx tablet,extended release 24 hr tabs Patient History Medical History Acute UTI (urinary tract infection) Elevated troponin NSVT (nonsustained ventricular tachycardia) - hx of nonsustained VT (isolated run on Zio without associated symptoms per cardio); intolerance to beta blockers Renal cyst per medical record, pt unsure Depression Port-A-Cath in place Bilateral hydronephrosis Chronic kidney disease stage 3 or 4 - follows with [facility] Nephrology Sari fish Hx of gastric ulcer Chronic gastritis GERD (gastroesophageal reflux disease) Migraines Chronic nausea Seasonal allergies Hypothyroidism Paroxysmal A-fib - follows with Dr. Aguirre, takes asa daily (not anticoagulated due to anemia and fall risk per cardio records ) - patient referred at last cardio appt 10/2024 for evaluation for left appendage occluder device Celiac disease Hx of renal calculi no surgical intervention needed Poor intravenous access PSVT (paroxysmal supraventricular tachycardia) - no current issues per patient Hx MRSA infection 1999 dx nose septum wound 2019 dx in lungs Gastroparesis IBS (irritable bowel syndrome) Dyslipidemia CHARLES (iron deficiency anemia) History of COVID-19 has had ~5 times - last had ~early 2023, no hospitalization. Orthostatic hypotension Follows with [facility] cardiology On midodrine Chronic anemia frequent iron and blood transfusions. Hypertension hx --> pt reports she is being treated for hypotension Adrenal cyst monitoring unchanged per 2024 imaging; benign per PCP Chronic back pain Degenerative disc disease Osteoarthritis Anxiety Mitral valve prolapse follows with Dr Aguirre Narcolepsy Chronic obstructive pulmonary disease uncontrolled, uses inhalers daily Sleep apnea CPAP + 2lpm of oxygen Surgical History H/O insertion of central venous access port power port placed due to poor IV access + frequent blood draws/iron/blood transfusions S/P spinal fusion C1 through L3 or L4 (~2021 at [facility]) History of cardioversion ~2019 History of cardiac radiofrequency ablation ~2014 [facility] History of bronchoscopy in the S/P trigger finger release right hand History of ankle surgery bilateral ankle repair with hardware H/O hand surgery with hardware (left) S/P GLENNY-BSO S/P surgery on nasal septum "collapsed septum" s/p post op infection that "ate away the septum" S/P nasal surgery multiple Hx of cholecystectomy History of arthroscopic knee surgery left Hx of cardiac cath "2009 - normal coronaries" (pt denies) History of esophagogastroduodenoscopy (EGD) History of colonoscopy History of dilatation and curettage Family History Other No family history of adverse response to anesthesia Social History Smoking Status: Never smoker Second Hand Exposure: No; Do You Dip or Chew Tobacco: No; Tobacco Cessation Education Requested by Patient: No Hx Alcohol Use: No Hx Substance Use: No Preferred Language: [place] Communication Ability: Effective 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: No Beliefs That Will Affect Care: None marital status: Current Living Situation: Spouse Current Living Situation Comment: 4yr old twins at home Other Information That Helps Us Care for You: No Feels Safe at Home: Yes Safety Concerns: Feels Safe At This Time Assistive Devices: Glasses and Hospital Bed Review of Systems Review of Systems: All systems reviewed & are unremarkable except as noted in HPI & below Physical Exam Constitutional: WD/WN, vitals as above Eyes: no conjunctival abnormality ENMT: Ears: no hearing impairment and no external ear abnormality Mouth: + oropharynx abnormality Neck: trachea midline Respiratory: normal respiratory effort; no respiratory distress and no labored breathing Cardiovascular: Rate/Rhythm: regular rate Gastrointestinal (Abdomen): Abdomen is soft without distention. Patient had a well-healed Juanita incision. She did have some pain with palpation of the left side of her abdomen. There is no rebound tenderness, guarding, or signs of peritonitis. Musculoskeletal: No calf tenderness Skin: no rashes Neurologic: moves all extremities Psychiatric: A+Ox3, euthymic affect Genitourinary: CVA tenderness noted bilaterally but this was markedly more severe on the left side Results & Data Vital Signs (Past 12 Hours) Vital Signs Temp Pulse Pulse Resp BP BP Pulse Ox 04/13/25 00:07 61 16 147/89 H 96 04/12/25 22:30 65 17 144/84 H 96 04/12/25 21:30 73 18 137/73 93 04/12/25 21:00 74 18 141/91 H 94 04/12/25 20:30 70 18 143/87 H 95 04/12/25 20:30 143/87 H 04/12/25 20:30 72 17 94 04/12/25 19:30 74 20 156/83 H 93 04/12/25 18:49 64 04/12/25 18:39 55 L 18 182/84 H 95 04/12/25 18:03 61 21 167/90 H 95 04/12/25 17:59 97 04/12/25 16:47 36.7 C 69 19 164/96 H 98 O2 Del Method 04/13/25 00:07 04/12/25 22:30 Room Air 04/12/25 21:30 Room Air 04/12/25 21:00 04/12/25 20:30 04/12/25 20:30 04/12/25 20:30 04/12/25 19:30 Room Air 04/12/25 18:49 04/12/25 18:39 Room Air 04/12/25 18:03 Room Air 04/12/25 17:59 04/12/25 16:47 Room Air PG Care Time/CCT Total # of Minutes Spent Total Time Spent with Patient: Total time spent is greater than 50% in coordination of care (as documented) at patient's floor/unit and/or counseling patient: Coding Level of Care Code 87134 INT INP/OBS CARE 3/75MIN Diagnoses Flank pain R10.A0 Acute UTI (urinary tract infection) N39.0 Hydroureteronephrosis N13.30
[2025-04-13] MEDS: ACETAMINOPHEN 1,000 MG/100 ML VIAL IV STA ×2 (01:08→13:23)
--- NOTE | 2025-04-13 01:16 | History & Physical Report ---
Date of Service April 13, 2025 Assessment & Plan (1) Pyelonephritis: Plan: 64-year-old female with past medical significant for idiopathic cardiac arrest/VT/PAD, hypertension, paroxysmal atrial fibrillation not on anticoagulation due to fall risk and anemia, restless leg syndrome, endometriosis/PCOS, history of MRSA, orthostatic hypotension on midodrine, hyperlipidemia/statin intolerance, asthma, COPD, sleep apnea, narcolepsy on CPAP celiac disease, GERD, irritable bowel syndrome, pancreatic divisum, left adrenal tumor as per report, hypothyroidism, presents because of left flank pain. On 03/08/2025 patient had a cystoscopy and bilateral stent placement for bilateral hydronephrosis and ureteral stones and laser Endo pyelotomy. Was admitted on 03/11/2025 for rapid A-fib and also severe sepsis secondary to complicated UTI. During that admission patient was treated with antibiotics for 5 days and urine cultures were negative. Her verapamil dose was decreased from 180 to 120 mg once daily and midodrine was titrated up to 5 mg 3 times daily because of hypotension requiring fluid boluses and was discharged on 03/18/2025. Patient was again admitted on 03/27/2025 for rapid A-fib and also recurrent complicated UTI. During her admission verapamil was changed to metoprolol succinate. Urine cultures grew actinobacter.. In the hospital she was treated with Rocephin and discharged on ciprofloxacin on 04/02/2025. Patient says since start of March she is having flank pain but last night the left flank pain got worse which prompted her to come to the ER. Denies any fevers. Has some hematuria in Jose per patient. Jose was removed in the ER and patient was voiding okay. Had some diarrhea as per patient. Denies any abdominal pain. Was feeling nauseous. No chest pain or shortness of breath. Complains of 5/10 headache. No runny nose or sore throat. Hemodynamics are okay currently. Pyelonephritis Presents with left flank pain UA is positive CT abdomen pelvis showing severe left hydronephrosis and mild right hydronephrosis both worsened since prior study. No clear obstructing calculus or mass identified. Unchanged bilateral ureteral stents. Appreciate urology input N.p.o., IV fluids, pain control Received Rocephin in the ER. Will continue with IV cefepime until cultures available. Await further urology inputs Close monitor hemodynamics History of A-fib Continue current metoprolol succinate with holding parameters Not on anticoagulation secondary to bleeding risk Biliary ductal dilatation CAT scan LFTs okay Can consider MRCP History of hypotension On midodrine Hyperlipidemia On statin Sleep apnea Narcolepsy On CPAP nightly History of COPD Continue home inhalers Hypothyroidism On Synthyroid GERD Continue home medications DVT prophylaxis SCDs for now Disposition Med/telemetry Full code. History of Present Illness Chief Complaint: Left flank pain Primary Care Provider: Vicki Watson MD 64-year-old female with past medical significant for idiopathic cardiac arrest/VT/PAD, hypertension, paroxysmal atrial fibrillation not on ant icoagulation due to fall risk and anemia, restless leg syndrome, endometriosis/PCOS, history of MRSA, orthostatic hypotension on midodrine, hyperlipidemia/statin intolerance, asthma, COPD, sleep apnea, narcolepsy on CPAP celiac disease, GERD, irritable bowel syndrome, pancreatic divisum, left adrenal tumor as per report, hypothyroidism, presents because of left flank pain. On 03/08/2025 patient had a cystoscopy and bilateral stent placement for bilateral hydronephrosis and ureteral stones and laser Endo pyelotomy. Was admitted on 03/11/2025 for rapid A-fib and also severe sepsis secondary to complicated UTI. During that admission patient was treated with antibiotics for 5 days and urine cultures were negative. Her verapamil dose was decreased from 180 to 120 mg once daily and midodrine was titrated up to 5 mg 3 times daily because of hypotension requiring fluid boluses and was discharged on 03/18/2025. Patient was again admitted on 03/27/2025 for rapid A-fib and also recurrent complicated UTI. During her admission verapamil was changed to metoprolol succinate. Urine cultures grew actinobacter.. In the hospital she was treated with Rocephin and discharged on ciprofloxacin on 04/02/2025. Patient says since start of March she is having flank pain but last night the left flank pain got worse which prompted her to come to the ER. Denies any fevers. Has some hematuria in Jose per patient. Jose was removed in the ER and patient was voiding okay. Had some diarrhea as per patient. Denies any abdominal pain. Was feeling nauseous. No chest pain or shortness of breath. Complains of 5/10 headache. No runny nose or sore throat. Hemodynamics are okay currently. Past medical history. As mentioned above. Past surgical history. Allograft for spine surgery. Left knee arthroscopy. Left heart catheterization. Colonoscopy. EGD. EGD with biopsy. EGD with endoscopic ultrasound. Laparoscopic excision of lesions. Left knee arthroscopy. Nasal surgery. Neck spine fusion. Reconstruction nose. Laminectomy. Cholecystectomy. Total abdominal hysterectomy with removal of tubes. Social history. . No smoking. No alcohol use. No drug use. Family history. Mother had arthritis. GERD. Hiatal hernia. A-fib. Sleep apnea. Bipolar disorder. Osteoporosis. Stroke. Father had A-fib. CAD. Mitochondrial disease. Allergies Allergy/AdvReac Type Severity Reaction Status Date / Time bee venom protein (honey bee) Allergy Severe ANAPHYLAXIS Verified 04/12/25 19:19 coconut Allergy Severe RASH; SOB Verified 04/12/25 19:19 gluten Allergy Severe CELIAC'S Verified 04/12/25 19:19 latex Allergy Severe Anaphylaxis Verified 04/12/25 19:19 Penicillins Allergy Severe Anaphylaxis Verified 04/12/25 19:19 Sulfa (Sulfonamide Allergy Severe Anaphylaxis Verified 04/12/25 19:19 Antibiotics) ROBER Inhibitors Allergy Intermediate RASH/TACHYC Verified 04/12/25 19:19 ARDIA cefaclor Allergy Intermediate CECLOR--RASH/UPSET Verified 04/12/25 19:19 STOMACH egg Allergy Intermediate RASH & Verified 04/12/25 19:19 Bloating Influenza Virus Vaccines Allergy Intermediate rash and Verified 04/12/25 19:19 bloating tetracycline Allergy Intermediate NAUSEA/VOMI Verified 04/12/25 19:19 TING/RASH Quinolones Allergy Unknown ALLERGY TO Verified 04/12/25 19:19 AVELOX ,CAN TAKE CIPRO OR LEVAQUIN W/O RXN Beta-Blockers AdvReac Intermediate intolerance Verified 04/12/25 19:19 (Beta-Adrenergic Bloc as per records lactose AdvReac Intermediate BLOATING; Verified 04/12/25 19:19 DIARRHEA; VOMITING Home Medications Medication Instructions Recorded Confirmed Type aspirin 81 mg tablet,delayed 81 mg PO QAM 09/14/24 04/12/25 History release atorvastatin 20 mg tablet 20 mg PO HS 09/14/24 04/12/25 History cimetidine 400 mg tablet 400 mg PO BID 09/14/24 04/12/25 History fexofenadine 180 mg tablet 180 mg PO QAM 09/14/24 04/12/25 History fluticasone 250 mcg-salmeterol 50 1 inh inhalation BID 09/14/24 04/12/25 History mcg/dose blistr powdr for inhalation (Advair Diskus) folic acid 1 mg tablet 1 mg PO BID 09/14/24 04/12/25 History hyoscyamine sulfate 0.375 mg 0.375 mg PO Q6H PRN Abdominal Pain 09/14/24 04/12/25 History tablet,extended release,12 hr ipratropium 20 mcg-albuterol 100 1 puff inhalation QID PRN 09/14/24 04/12/25 History mcg/actuation mist for inhalation Shortness Of Breath Or Wheezing (Combivent Respimat) levothyroxine 100 mcg capsule 100 mcg PO QAM 09/14/24 04/12/25 History montelukast 10 mg tablet 10 mg PO HS 09/14/24 04/12/25 History multivitamin 1 tab PO QAM 09/14/24 04/12/25 History rabeprazole 20 mg tablet,delayed 40 mg PO BID 09/14/24 04/12/25 History release (AcipHex) sucralfate 1 gram tablet 1 g PO ACHS 09/14/24 04/12/25 History topiramate 100 mg tablet 100 mg PO BID 09/14/24 04/12/25 History CPAP Machine 09/15/24 03/11/25 History amitriptyline 75 mg tablet 75 mg PO HS 09/15/24 04/12/25 History azelastine 137 mcg (0.1 %) nasal 1 spray intranasal BID 09/15/24 04/12/25 History spray levalbuterol HCl 1.25 mg/3 mL 1.25 mg inhalation .Q4-6H PRN 09/15/24 04/12/25 History solution for nebulization Shortness Of Breath Or Wheezing ondansetron 4 mg disintegrating 4 mg PO Q8H PRN Nausea And Vomiting 09/15/24 04/12/25 History tablet polyethylene glycol 3350 17 gram 17 g PO QAM 09/15/24 04/12/25 History oral powder packet (Miralax) oxybutynin chloride 5 mg tablet 5 mg PO Q8H PRN bladder spasms #9 03/08/25 04/12/25 Rx tabs epinephrine 0.3 mg/0.3 mL 0.3 mg subcut UD PRN Anaphylaxis 03/11/25 04/12/25 History injection, auto-injector midodrine 5 mg tablet 5 mg PO TID #90 tabs 03/18/25 04/12/25 Rx metoprolol succinate 25 mg 37.5 mg (1.5 x 25 mg) PO BID #90 04/02/25 04/12/25 Rx tablet,extended release 24 hr tabs Past Med/Surg History Problem List (Updated 04/13/25 @ 01:45 by Reggie Love DO) Flank pain (Acute) Hydroureteronephrosis (Acute) Acute pyelonephritis (Acute) Pyelonephritis Contraindication to anticoagulation therapy Hypotension Atrial fibrillation Elevated procalcitonin (Acute) Atrial fibrillation with rapid ventricular response (Acute) Generalized weakness (Acute) Rupture of kidney (Acute) LILLIANA (acute kidney injury) (Acute) Transaminitis (Acute) Sepsis (Acute) Atrial fibrillation with rapid ventricular response (Acute) Incontinence (Chronic) Adrenal nodule (Chronic) Renal cyst (Acute) Bilateral hydronephrosis (Chronic) Abdominal pain PSVT (paroxysmal supraventricular tachycardia) Elevated brain natriuretic peptide (BNP) level (Acute) Atrial tachycardia, paroxysmal Syncope (Acute) 01/2024 per records Dyspnea (Acute) Shortness of breath (Acute) PAF (paroxysmal atrial fibrillation) Sinus tachycardia (Acute) Palpitation (Acute) Hypokalemia Transaminitis Elevated LFTs (Acute) Encounter for pre-operative examination CYNTHIA (obstructive sleep apnea) (Chronic) Asthma, severe persistent (Chronic) Gastroparesis (Chronic) Celiac disease (Chronic) GERD (gastroesophageal reflux disease) (Chronic) IBS (irritable bowel syndrome) (Chronic) Hypothyroidism (Chronic) no current medication -- TSH normal without meds. CHARLES (iron deficiency anemia) (Chronic) ferrous sulfate QID. Dyslipidemia (Chronic) MRSA (methicillin resistant Staphylococcus aureus) (Chronic) 1999 dx nose septum wound 2019 dx in lungs Medical History Acute UTI (urinary tract infection) Elevated troponin NSVT (nonsustained ventricular tachycardia) - hx of nonsustained VT (isolated run on Zio without associated symptoms per cardio); intolerance to beta blockers Renal cyst per medical record, pt unsure Depression Port-A-Cath in place Bilateral hydronephrosis Chronic kidney disease stage 3 or 4 - follows with [facility] Nephrology Sari fish Hx of gastric ulcer Chronic gastritis GERD (gastroesophageal reflux disease) Migraines Chronic nausea Seasonal allergies Hypothyroidism Paroxysmal A-fib - follows with Dr. Aguirre, takes asa daily (not anticoagulated due to anemia and fall risk per cardio records ) - patient referred at last cardio appt 10/2024 for evaluation for left appendage occluder device Celiac disease Hx of renal calculi no surgical intervention needed Poor intravenous access PSVT (paroxysmal supraventricular tachycardia) - no current issues per patient Hx MRSA infection 1999 dx nose septum wound 2019 dx in lungs Gastroparesis IBS (irritable bowel syndrome) Dyslipidemia CHARLES (iron deficiency anemia) History of COVID-19 has had ~5 times - last had ~early 2023, no hospitalization. Orthostatic hypotension Follows with [facility] cardiology On midodrine Chronic anemia frequent iron and blood transfusions. Hypertension hx --> pt reports she is being treated for hypotension Adrenal cyst monitoring unchanged per 2024 imaging; benign per PCP Chronic back pain Degenerative disc disease Osteoarthritis Anxiety Mitral valve prolapse follows with Dr Aguirre Narcolepsy Chronic obstructive pulmonary disease uncontrolled, uses inhalers daily Sleep apnea CPAP + 2lpm of oxygen Surgical History H/O insertion of central venous access port power port placed due to poor IV access + frequent blood draws/iron/blood transfusions S/P spinal fusion C1 through L3 or L4 (~2021 at [facility]) History of cardioversion ~2019 History of cardiac radiofrequency ablation ~2014 [facility] [place] History of bronchoscopy in the S/P trigger finger release right hand History of ankle surgery bilateral ankle repair with hardware H/O hand surgery with hardware (left) S/P GLENNY-BSO S/P surgery on nasal septum "collapsed septum" s/p post op infection that "ate away the septum" S/P nasal surgery multiple Hx of cholecystectomy History of arthroscopic knee surgery left Hx of cardiac cath "2009 - normal coronaries" (pt denies) History of esophagogastroduodenoscopy (EGD) History of colonoscopy History of dilatation and curettage Family History Other No family history of adverse response to anesthesia Social History Smoking Status: Never smoker Second Hand Exposure: No; Do You Dip or Chew Tobacco: No; Tobacco Cessation Education Requested by Patient: No Hx Alcohol Use: No Hx Substance Use: No Preferred Language: Burkinan Communication Ability: Effective Auto Top Mechanic Required: No Beliefs That Will Affect Care: None marital status: Current Living Situation: Spouse Current Living Situation Comment: 4yr old twins at home Other Information That Helps Us Care for You: No Feels Safe at Home: Yes Safety Concerns: Feels Safe At This Time Assistive Devices: Glasses and Hospital Bed Review of Systems Review of Systems: All systems reviewed & are unremarkable except as noted in HPI & below Physical Exam Physical Exam: General- Not in acute distress Head- atraumatic Eyes- PERRL. ENT- oropharynx clear Neck- supple, no JVD. Lungs- clear to auscultation no wheezing or crackles Heart- regular rhythm; no murmur, no gallop. Abdomen- normal bowel sounds, soft, nontender, no distension. left cva tend erness present Extremities- no pretibial edema, no erythema seen Neuro- alert, oriented PERRL, no facial palsy; no dysarthria; moves extremities Results & Data Results & Data Vital Signs (Past 12 Hours) Vital Signs Temp Pulse Pulse Resp BP BP Pulse Ox 04/13/25 00:07 61 16 147/89 H 96 04/12/25 22:30 65 17 144/84 H 96 04/12/25 21:30 73 18 137/73 93 04/12/25 21:00 74 18 141/91 H 94 04/12/25 20:30 70 18 143/87 H 95 04/12/25 20:30 143/87 H 04/12/25 20:30 72 17 94 04/12/25 19:30 74 20 156/83 H 93 04/12/25 18:49 64 04/12/25 18:39 55 L 18 182/84 H 95 04/12/25 18:03 61 21 167/90 H 95 04/12/25 17:59 97 04/12/25 16:47 36.7 C 69 19 164/96 H 98 O2 Del Method 04/13/25 00:07 04/12/25 22:30 Room Air 04/12/25 21:30 Room Air 04/12/25 21:00 04/12/25 20:30 04/12/25 20:30 04/12/25 20:30 04/12/25 19:30 Room Air 04/12/25 18:49 04/12/25 18:39 Room Air 04/12/25 18:03 Room Air 04/12/25 17:59 04/12/25 16:47 Room Air Diagnostic Findings Laboratory Results WBC 9.24 K/ul (4.8-10.8) 04/12/25 18:57 RBC 3.83 M/uL (4.20-5.40) L 04/12/25 18:57 Hgb 11.8 g/dl (12.0-16.0) L 04/12/25 18:57 Hct 38.8 % (37.0-47.0) 04/12/25 18:57 MCV 101.3 fL (80.0-100.0) H 04/12/25 18:57 MCH 30.8 pg (25.0-34.0) 04/12/25 18:57 MCHC 30.4 g/dL (32.0-36.0) L 04/12/25 18:57 RDW Std Deviation 58.2 fL (36.4-46.3) H 04/12/25 18:57 RDW Coeff of Reginaldo 15.7 % (11.5-14.5) H 04/12/25 18:57 Plt Count 248 K/uL (130-400) 04/12/25 18:57 MPV 9.7 fL (9.4-12.4) 04/12/25 18:57 Immature Gran % (Auto) 0.3 % 04/12/25 18:57 Neut % (Auto) 77.5 % 04/12/25 18:57 Lymph % (Auto) 14.4 % 04/12/25 18:57 [facility] % (Auto) 5.7 % 04/12/25 18:57 Eos % (Auto) 1.6 % 04/12/25 18:57 Baso % (Auto) 0.5 % 04/12/25 18:57 Neut # (Auto) 7.15 K/uL (1.40-6.50) H 04/12/25 18:57 Lymph # (Auto) 1.33 K/uL (1.20-3.40) 04/12/25 18:57 [facility] # (Auto) 0.53 K/uL (0.11-0.59) 04/12/25 18:57 Eos # (Auto) 0.15 K/uL (0.00-0.50) 04/12/25 18:57 Baso # (Auto) 0.05 K/uL (0.00-0.20) 04/12/25 18:57 Immature Gran # (Auto) 0.03 K/uL (0.01-0.20) 04/12/25 18:57 Absolute Nucleated RBC Cancelled 04/12/25 17:56 Nucleated RBC % (auto) Cancelled 04/12/25 17:56 Neutrophils % (Manual) Cancelled 04/12/25 17:56 Band Neutrophils % Cancelled 04/12/25 17:56 Lymphocytes % (Manual) Cancelled 04/12/25 17:56 Prolymphocyte % Cancelled 04/12/25 17:56 Reactive Lymphs % (Man) Cancelled 04/12/25 17:56 Monocytes % (Manual) Cancelled 04/12/25 17:56 Eosinophils % (Manual) Cancelled 04/12/25 17:56 Basophils % (Manual) Cancelled 04/12/25 17:56 Metamyelocytes % (Man) Cancelled 04/12/25 17:56 Myelocytes % (Man) Cancelled 04/12/25 17:56 Promyelocytes % (Man) Cancelled 04/12/25 17:56 Blast Cells % (Manual) Cancelled 04/12/25 17:56 Plasma Cell % (Manual) Cancelled 04/12/25 17:56 Other Cells % Cancelled 04/12/25 17:56 Nucleated RBC % Cancelled 04/12/25 17:56 Neutrophils # (Manual) Cancelled 04/12/25 17:56 Band Neutrophils # Cancelled 04/12/25 17:56 Total Absolute Neuts Cancelled 04/12/25 17:56 Lymphocytes # (Manual) Cancelled 04/12/25 17:56 Prolymphocyte # Cancelled 04/12/25 17:56 Reactive Lymphs # Cancelled 04/12/25 17:56 Total Abs Lymphocytes Cancelled 04/12/25 17:56 Monocytes # (Manual) Cancelled 04/12/25 17:56 Eosinophils # (Manual) Cancelled 04/12/25 17:56 Basophils # (Manual) Cancelled 04/12/25 17:56 Metamyelocytes # (Man) Cancelled 04/12/25 17:56 Myelocytes # (Manual) Cancelled 04/12/25 17:56 Promyelocytes # (Man) Cancelled 04/12/25 17:56 Blast Cells # (Man) Cancelled 04/12/25 17:56 Plasma Cell # (Manual) Cancelled 04/12/25 17:56 Other Cells # Cancelled 04/12/25 17:56 Nucleated RBCs # (Man) Cancelled 04/12/25 17:56 Hypersegmented Neuts Cancelled 04/12/25 17:56 Hyposegmented Neuts Cancelled 04/12/25 17:56 Hypogranular Neuts Cancelled 04/12/25 17:56 Large Granular Lymphs Cancelled 04/12/25 17:56 # Lrg Granular Lymphs Cancelled 04/12/25 17:56 Hairy Cells Cancelled 04/12/25 17:56 Smudge Cells Cancelled 04/12/25 17:56 Toxic Granulation Cancelled 04/12/25 17:56 Toxic Vacuolation Cancelled 04/12/25 17:56 Dohle Bodies Cancelled 04/12/25 17:56 Marti Rods Cancelled 04/12/25 17:56 Platelet Estimate Cancelled 04/12/25 17:56 Hypogranular Platelets Cancelled 04/12/25 17:56 Giant Platelets Cancelled 04/12/25 17:56 Platelet Satelliting Cancelled 04/12/25 17:56 RBC Morphology Cancelled 04/12/25 17:56 Polychromasia Cancelled 04/12/25 17:56 Hypochromasia Cancelled 04/12/25 17:56 Poikilocytosis Cancelled 04/12/25 17:56 Basophilic Stippling Cancelled 04/12/25 17:56 Anisocytosis Cancelled 04/12/25 17:56 Microcytosis Cancelled 04/12/25 17:56 Macrocytosis Cancelled 04/12/25 17:56 Spherocytes Cancelled 04/12/25 17:56 Pappenheimer Bodies Cancelled 04/12/25 17:56 Sickle Cells Cancelled 04/12/25 17:56 Target Cells Cancelled 04/12/25 17:56 Tear Drop Cells Cancelled 04/12/25 17:56 Ovalocytes Cancelled 04/12/25 17:56 Stomatocytes Cancelled 04/12/25 17:56 Connelly-Rothbury Bodies Cancelled 04/12/25 17:56 Echinocytes Cancelled 04/12/25 17:56 Acanthocytes (Spur) Cancelled 04/12/25 17:56 Rouleaux Cancelled 04/12/25 17:56 RBC Agglutinates Cancelled 04/12/25 17:56 Schistocytes Cancelled 04/12/25 17:56 Sezary Cell Cancelled 04/12/25 17:56 Sodium 138 mmol/L (136-145) 04/12/25 17:56 Potassium 4.2 mmol/L (3.5-5.1) 04/12/25 17:56 Chloride 114 mmol/L (98-107) H 04/12/25 17:56 Carbon Dioxide 16 mmol/L (21-32) L 04/12/25 17:56 Anion Gap 8 (3-11) 04/12/25 17:56 BUN 17 mg/dl (6-23) 04/12/25 17:56 Creatinine 0.88 mg/dl (0.6-1.2) 04/12/25 17:56 Est Cr Clr Drug Dosing 53.1 ml/min 04/12/25 17:56 eGFR 73.80 04/12/25 17:56 BUN/Creatinine Ratio 19.3 (10-20) 04/12/25 17:56 Glucose 96 mg/dl (70-99(Fasting)) 04/12/25 17:56 Lactate 0.7 mmol/L (0.4-2.0) 04/12/25 17:56 Calcium 9.4 mg/dl (8.6-10.3) 04/12/25 17:56 Magnesium 1.7 mg/dl (1.7-2.4) 04/12/25 17:56 Magnesium Cancelled 04/12/25 17:56 Total Bilirubin 0.5 mg/dl (0.2-1.0) 04/12/25 17:56 AST 19 U/L (13-39) 04/12/25 17:56 ALT 19 U/L (7-52) 04/12/25 17:56 Alkaline Phosphatase 256 U/L (34-104) H 04/12/25 17:56 Troponin I High Sens 11.5 pg/ml (0-14) 04/12/25 17:56 Troponin I High Sens Cancelled 04/12/25 17:56 Total Protein 6.7 gm/dl (6.0-8.3) 04/12/25 17:56 Albumin 3.7 gm/dl (3.4-5.0) 04/12/25 17:56 Globulin 3.0 gm/dl (2.5-4.0) 04/12/25 17:56 Albumin/Globulin Ratio 1.2 (0.9-2) 04/12/25 17:56 Procalcitonin 0.07 ng/ml (0-0.5) 04/12/25 17:56 Urine Color Dark Yellow 04/12/25 20:05 Urine Appearance Cloudy (Clear) A 04/12/25 20:05 Urine pH 5.0 (4.5-7.5) 04/12/25 20:05 Ur Specific [place] 1.041 (1.000-1.030) H 04/12/25 20:05 Urine Protein 1+ (Negative) H 04/12/25 20:05 Urine Glucose (UA) Negative (Negative) 04/12/25 20:05 Urine Ketones Negative (Negative) 04/12/25 20:05 Urine Blood 3+ (Negative) H 04/12/25 20:05 Urine Nitrite Positive (Negative) A 04/12/25 20:05 Urine Bilirubin Negative (Negative) 04/12/25 20:05 Urine Urobilinogen Negative (Negative) 04/12/25 20:05 Ur Leukocyte Esterase 2+ (Negative) H 04/12/25 20:05 Urine WBC (Auto) >50 /hpf (0-5) H 04/12/25 20:05 Urine RBC (Auto) >20 /hpf (0-2) H 04/12/25 20:05 U Hyaline Cast (Auto) 3-5 /lpf (0-2) H 04/12/25 20:05 U Epithel Cells (Auto) 0-2 /hpf (0-2) 04/12/25 20:05 Urine Bacteria (Auto) None Seen (None Seen) 04/12/25 20:05 Urine Yeast Present (None Prsent) A 04/12/25 20:05 Urine Comment 04/12/25 20:05 Blood Parasites ID Cancelled 04/12/25 17:56 Impressions Chest X-Ray 04/12/25 16:52 EXAM: X-ray chest one-view portable CLINICAL HISTORY: Short of breath PRIORS: 03/27/2025 TECHNIQUE: Erect portable AP FINDINGS: A right-sided Mediport catheter noted with distal tip at the atriocaval junction, unchanged. Cervical hardware at the base of the neck. Chest is well-expanded. No infiltrate, effusion or congestive changes. No pneumothorax. Heart size unchanged. [place] structures unremarkable. IMPRESSION: No plain film evidence of an acute osseous abnormality. Electronically signed by Linda Cha 04-12-2025 6:54 PM Abdomen/Pelvis CT 04/12/25 17:34 Clinical History: Flank pain Technique: Axial computed tomography images were obtained of the abdomen and pelvis after the administration of intravenous contrast. Comparison is made to the prior CT dated 03/27/2025. Findings: The liver is overall of normal size, attenuation, and contour with no sign of cirrhosis or significant fatty infiltration. No liver mass lesion is seen. The portal vein is patent. The gallbladder has been removed. There is worsened intrahepatic and extra hepatic bile duct dilatation, with the common bile duct measuring up to 16 mm. No clear obstructing lesion is identified The spleen is of normal size. No focal splenic lesion is evident. The pancreas appears normal with no sign of acute or chronic pancreatitis and no mass lesion noted. The pancreatic duct is of normal caliber. There is an unchanged 3.3 cm left adrenal mass. The right adrenal gland appears normal Bilateral ureteral stents are again seen. There is worsened mild right hydronephrosis and there is worsened severe left hydronephrosis. No clear obstructing lesion is seen. There is mild left perinephric stranding. There is no clear evidence of pyelonephritis. There is mild wall thickening of the right renal pelvis. No definite renal mass lesion is identified. There are small bilateral renal cysts, measuring up to 1 cm The aorta is of normal caliber. No abdominal adenopathy is seen. There is prominence of the gastric wall that is likely due to the decompressed state. There is no sign of small bowel obstruction. The colon appears unremarkable. The appendix appears normal also. No free intraperitoneal fluid or air is identified. No distal ureteral or bladder calculi are seen. The bladder is decompressed, containing a Jose catheter. The iliac arteries are of normal caliber. No pelvic adenopathy is noted. No fracture is identified. No focal osseous lesion is seen Impression: 1. Severe left hydronephrosis and mild right hydronephrosis, both worsened since the prior study. No clear obstructing calculus or mass is identified 2. Unchanged bilateral ureteral stents 3. Mild wall thickening of the right renal pelvis. This is nonspecific in nature but raises the possibility of infection. There is no definite sign of pyelonephritis 4. Small bilateral renal cysts 5. Interval worsening of bile duct dilatation. No clear obstructing lesion is seen. ERCP or MRCP could be considered for further evaluation 6. Unchanged left adrenal nodule that may be sent a benign adenoma but is indeterminate in nature ACT 112: Positive. There are findings on this exam that require communication between the performing entity and the patient following Patient Test Result Information Act ([place] ACT 112) guidelines. Electronically signed by Darinel Hilliard 04-12-2025 8:05 PM ECG Additional Comments: ECG. Sinus bradycardia sinus arrhythmia at rate of 59. QTc 378. Code Status & VTE Plan VTE Prophylaxis Plan VTE Prophylaxis will be ordered: Yes
[2025-04-13] MEDS ORDERED: HYDROmorphone INJ 0.5 MG/0.5 ML SYR IV PRN (02:21)
[2025-04-13] MEDS ORDERED: NITROGLYCERIN SL 0.4 MG/TAB TAB SL PRN (02:21)
[2025-04-13] MEDS ORDERED: HYOSCYAMINE SULFATE 0.375 MG TABCR PO PRN (02:21)
[2025-04-13] MEDS ORDERED: IPRATROPIUM BROMIDE/ALBUTEROL respimat INH INH PRN (02:21)
[2025-04-13] MEDS ORDERED: LEVALBUTEROL 1.25 MG/3 ML NEB INH PRN (02:21)
[2025-04-13] MEDS ORDERED: Albuterol HFA 8 GM Inhaler (Combivent Respimat P&T Subs) INH PRN (02:47)
[2025-04-13] MEDS ORDERED: Ipratropium HFA Inhaler (Combivent Respimat P&T Subs) INH PRN (02:47)
[2025-04-13] MEDS: HYDROmorphone INJ 0.5 MG/0.5 ML SYR IV PRN ×2 (02:48→13:58)
[2025-04-13] MEDS: SODIUM CHLORIDE 0.9% 1,000 ML IV SCH (02:48)
[2025-04-13] MEDS: ONDANSETRON INJ 2 MG/ML 2 ML VIAL IV PRN (02:48)
[2025-04-13] MEDS: LEVOTHYROXINE SODIUM 100 MCG TABLET PO SCH (05:32)
[2025-04-13] MEDS: CEFEPIME 2000MG 2,000 MG/20 ML SYR IV SCH (05:32)
[2025-04-13] MEDS: ACETAMINOPHEN 325 MG TAB PO PRN (06:12)
[2025-04-13 06:43] LABS: Hematocrit (blood only) 38.0 % (37.0-47.0); Hemoglobin 11.8 g/dl (12.0-16.0); Immature Granulocytes # (auto) 0.03 K/uL (0.01-0.20); Immature Granulocytes % (auto) 0.3 %; Mean Corpuscular Hemoglobin 31.4 pg (25.0-34.0); Mean Corpuscular Volume 101.1 fL (80.0-100.0); Platelet Count 235 K/uL (130-400); RDW Standard Deviation 57.8 fL (36.4-46.3); Red Blood Count 3.76 M/uL (4.20-5.40); White Blood Count 8.64 K/ul (4.8-10.8)
[2025-04-13] MEDS: MIDODRINE HCL 2.5 MG TAB PO SCH (07:03)
[2025-04-13] MEDS: SUCRALFATE 1 GM TAB PO SCH (07:04)
[2025-04-13 07:08] LABS: Anion Gap 4.0 (3-11); Blood Urea Nitrogen 15.0 mg/dl (6-23); Calcium 9.1 mg/dl (8.6-10.3); Carbon Dioxide 20.0 mmol/L (21-32); Chloride 113.0 mmol/L (98-107); Creatinine Clr Calc Pharmacy 56.2 ml/min; Glucose 123.0 mg/dl (70-99(Fasting)); Magnesium 1.5 mg/dl (1.7-2.4); Potassium 4.3 mmol/L (3.5-5.1); Sodium 137.0 mmol/L (136-145)
[2025-04-13] MEDS: TOPIRAMATE 100 MG TAB PO SCH (08:21)
[2025-04-13] MEDS: FLUTICASONE/VILANTEROL 200/25MCG 14 PUFFS/INHALER INH SCH (08:21)
[2025-04-13] MEDS: FOLIC ACID 1 MG TAB PO SCH (08:21)
[2025-04-13] MEDS: AZELASTINE HCL 0.1% NASAL 200 SPRAYS/27,400 MCG BTL NAE SCH (08:21)
[2025-04-13] MEDS: MULTIVITAMIN TAB PO SCH (08:22)
[2025-04-13] MEDS: ASPIRIN 81 MG ECTAB PO SCH (08:22)
[2025-04-13] MEDS: FEXOFENADINE HCL 180 MG TAB PO SCH (08:22)
[2025-04-13] MEDS: FAMOTIDINE 40 MG TABLET PO SCH (08:22)
[2025-04-13] MEDS: METOPROLOL SUCC 25MG EXT REL TAB PO SCH (08:23)
--- NOTE | 2025-04-13 10:36 | Urology Progress Note ---
<Statement entered by Yair Stern MD - 04/13/25 14:59> Chart reviewed case discussed with EVELIN, plan reviewed and agree as written. Date of Service April 13, 2025 Assessment & Plan (1) Hydroureteronephrosis: (2) Flank pain: Plan: Follow-up of hydronephrosis, flank pain, suspected UTI Patient s/p cystoscopy with bilateral retrograde pyelogram and stent placement, right ureteral dilation, left ureteroscopy and laser endopyelotomy on 03/08/[address] Williamson Patient afebrile, hemodynamically stable Labs reviewedcreatinine 0.84, WBC 8.64, hemoglobin 11.8 Urinalysis was suspicious for infection Urine and blood cultures are pending Recommend continue with broad-spectrum antibiotics and narrow per sensitivity data when available Bilateral stents are appropriately positioned No acute intervention at this time Patient voiding spontaneously, bladder scan as needed Continue supportive care and antibiotics Will arrange outpatient follow-up with our service for stent removal Please contact our service with any additional questions or concerns Admission and Anticipated Discharge Date Admission Date: April 13, 2025 Subjective Patient seen and examined at bedside this morning. Subjectively feeling better since arrival. She has intermittent left flank discomfort and nausea. She is voiding spontaneously. Denies hematuria, but reports dark urine. No fever or chills. Review of Systems Constitutional: as per Subjective / HPI Genitourinary: as per Subjective / HPI Physical Exam Constitutional: no acute distress Respiratory: normal respiratory effort; no respiratory distress and no labored breathing Gastrointestinal (Abdomen): Inspection/Auscultation: abdomen normal to inspection Musculoskeletal: Head/Neck/Chest: normocephalic Neurologic: moves all extremities and awake Psychiatric: Orientation: alert and oriented x 3 Results & Data Vital Signs (Past 12 Hours) Vital Signs Temp Pulse Pulse Resp BP BP Pulse Ox 04/13/25 08:18 36.6 C 56 L 16 122/50 L 97 04/13/25 05:45 59 L 04/13/25 02:28 36.9 C 62 18 176/94 H 96 04/13/25 02:21 36.9 C 62 18 176/94 H 96 04/13/25 02:21 04/13/25 02:14 63 04/13/25 01:55 69 18 142/90 H 95 04/13/25 00:07 61 16 147/89 H 96 04/12/25 23:07 69 Pulse Ox O2 Del Method O2 Del Method 04/13/25 08:18 Room Air 04/13/25 05:45 04/13/25 02:28 Room Air 04/13/25 02:21 Room Air 04/13/25 02:21 96 Room Air 04/13/25 02:14 04/13/25 01:55 04/13/25 00:07 04/12/25 23:07 PG Care Time/CCT Total # of Minutes Spent Total Time Spent with Patient: Total time spent is greater than 50% in coordination of care (as documented) at patient's floor/unit and/or counseling patient: Coding Level of Care Code 92962 SUB INP/OBS CARE 07/29MIN Diagnoses Hydroureteronephrosis N13.30 Flank pain R10.A0
--- NOTE | 2025-04-13 11:32 | Hospitalist Progress Note ---
Date of Service April 13, 2025 Assessment & Plan (1) Pyelonephritis: Plan: 64-year-old female with past medical significant for idiopathic cardiac arrest/VT/PAD, hypertension, paroxysmal atrial fibrillation not on anticoagulation due to fall risk and anemia, restless leg syndrome, endometriosis/PCOS, history of MRSA, orthostatic hypotension on midodrine, hyperlipidemia/statin intolerance, asthma, COPD, sleep apnea, narcolepsy on CPAP celiac disease, GERD, irritable bowel syndrome, pancreatic divisum, left adrenal tumor as per report, hypothyroidism, presents because of left flank pain. On 03/08/2025 patient had a cystoscopy and bilateral stent placement for bilateral hydronephrosis and ureteral stones and laser Endo pyelotomy. Was admitted on 03/11/2025 for rapid A-fib and also severe sepsis secondary to complicated UTI. During that admission patient was treated with antibiotics for 5 days and urine cultures were negative. Her verapamil dose was decreased from 180 to 120 mg once daily and midodrine was titrated up to 5 mg 3 times daily because of hypotension requiring fluid boluses and was discharged on 03/18/2025. Patient was again admitted on 03/27/2025 for rapid A-fib and also recurrent complicated UTI. During her admission verapamil was changed to metoprolol succinate. Urine cultures grew actinobacter.. In the hospital she was treated with Rocephin and discharged on ciprofloxacin on 04/02/2025. Patient says since start of March she is having flank pain but last night the left flank pain got worse which prompted her to come to the ER. Denies any fevers. Has some hematuria in Jose per patient. Jose was removed in the ER and patient was voiding okay. Had some diarrhea as per patient. Denies any abdominal pain. Was feeling nauseous. No chest pain or shortness of breath. Complains of 5/10 headache. No runny nose or sore throat. Hemodynamics are okay currently. Left sided Pyelonephritis Presents with left flank pain UA suspicious for UTI CT abdomen pelvis showing severe left hydronephrosis and mild right hydronephrosis both worsened since prior study. No clear obstructing calculus or mass identified. Unchanged bilateral ureteral stents. Patient evaluated by neurology during the hospitalization; they recommend outpatient follow-up. Jose catheter was removed with successful trial of void. Continue on antibiotics Follow-up on final culture and sensitivity of urine and blood culture History of A-fib Continue current metoprolol succinate with holding parameters Not on anticoagulation secondary to bleeding risk Biliary ductal dilatation CAT scan- LFT wnl. History of hypotension On midodrine- hold if SBP < 110 mm Hg Hyperlipidemia On statin-continue Sleep apnea Narcolepsy On CPAP nightly History of COPD Continue home inhalers Hypothyroidism On Synthyroid GERD Continue home medications DVT prophylaxis SCDs Disposition Med/telemetry Full code. please note the above document was generated using voice recognition software. It may contain grammatical, syntax or spelling errors. Any formal questions or concerns about the content, text or information contained within the body of this dictation should be directly addressed to the provider for clarification Admission and Anticipated Discharge Date Admission Date: April 13, 2025 Subjective Patient reports some intermittent flank pain. Trial of void has been successful so far. She has been afebrile. Reports some urinary symptoms Review of Systems Review of Systems: All systems reviewed & are unremarkable except as noted in Subjective Physical Exam Physical Exam: General- Not in acute distress Head- atraumatic Eyes- PERRL. ENT- oropharynx clear Neck- supple, no JVD. Lungs- clear to auscultation no wheezing or crackles Heart- regular rhythm; no murmur, no gallop. Abdomen- normal bowel sounds, soft, nontender, no distension. left cva tenderness present Extremities- no pretibial edema, no erythema seen Neuro- alert, oriented PERRL, no facial palsy; no dysarthria; moves extremities Results & Data Results & Data Vital Signs (Past 12 Hours) Vital Signs Temp Pulse Pulse Resp BP BP Pulse Ox 04/13/25 08:18 36.6 C 56 L 16 122/50 L 97 04/13/25 05:45 59 L 04/13/25 02:28 36.9 C 62 18 176/94 H 96 04/13/25 02:21 36.9 C 62 18 176/94 H 96 04/13/25 02:21 04/13/25 02:14 63 04/13/25 01:55 69 18 142/90 H 95 04/13/25 00:07 61 16 147/89 H 96 Pulse Ox O2 Del Method O2 Del Method 04/13/25 08:18 Room Air 04/13/25 05:45 04/13/25 02:28 Room Air 04/13/25 02:21 Room Air 04/13/25 02:21 96 Room Air 04/13/25 02:14 04/13/25 01:55 04/13/25 00:07
--- NOTE | 2025-04-13 13:25 | Electrocardiogram Report ---
Test Reason : Blood Pressure : */* mmHG Vent. Rate : 59 BPM Atrial Rate : 59 BPM P-R Int : 160 ms QRS Dur : 66 ms QT Int : 382 ms P-R-T Axes : 49 6 3 degrees QTcB Int : 378 ms Sinus bradycardia with sinus arrhythmia Otherwise normal ECG When compared with ECG of 27-Mar-2025 16:29, Sinus rhythm has replaced Atrial fibrillation Vent. rate has decreased by 55 bpm Nonspecific T wave abnormality, improved in Inferior leads Nonspecific T wave abnormality no longer evident in Lateral leads Confirmed by Allen Greenberg ([id number]) on 04/13/2025 1:24:59 PM Referred By: REFERRED SELF Confirmed By: Allen Greenberg
[2025-04-13 13:54] LABS: A calco-baum cmplx NotReported Not Detected (NotDetected); Bact fragilis Not Reported Not Detected (NotDetected); Blood Culture Id Panel See PCR Comment (NotDetected); C auris Not Reported Not Detected (NotDetected); Calbicans Not Reported Not Detected (NotDetected); Candida glabrata Not Reported Not Detected (NotDetected); Candida krusei Not Reported Not Detected (NotDetected); Cneoformans/gatti Not Reported Not Detected (NotDetected); Cparapsilosis Not Reported Not Detected (NotDetected); Ctropicalis Not Reported Not Detected (NotDetected); E cloacae compx Not Reported Not Detected (NotDetected); Efaecalis Not Reported Not Detected (NotDetected); Efaecium Not Reported Not Detected (NotDetected); Enterobacterales Not Reported Not Detected (NotDetected); Escherichia coli Not Reported Not Detected (NotDetected); H influenzae Not Reported Not Detected (NotDetected); K aerogenes Not Reported Not Detected (NotDetected); Koxytoca Not Reported Not Detected (NotDetected); Kpneumoniae grp Not Reported Not Detected (NotDetected); Lmonocyt Not Reported Not Detected (NotDetected); N meningitidis Not Reported Not Detected (NotDetected); P aeruginosa Not Reported Not Detected (NotDetected); Proteus spp Not Reported Not Detected (NotDetected); Salmonella spp Not Reported Not Detected (NotDetected); Staph lugdunensis Not Reported Not Detected (NotDetected); Staph spp. Not Reported DETECTED (NotDetected); Staphaureus Not Reported Not Detected (NotDetected); Staphepi Not Reported Not Detected (NotDetected); Stenmaltophilia Not Reported Not Detected (NotDetected); Strep agal(GrpB) Not Reported Not Detected (NotDetected); Strep pneum Not Reported Not Detected (NotDetected); Strep pyog (GrpA) Not Reported Not Detected (NotDetected); Strep spp Not Reported Not Detected (NotDetected)
[2025-04-13 14:00] LABS: Staphylococcus spp. DETECTED (NotDetected)
[2025-04-13] MEDS: POLYETHYLENE (MIRALAX) 17 GM PACK PO PRN (17:28)
[2025-04-13] MEDS: KETOROLAC TROMETHAMINE 15 MG/ML VIAL IV ONE (20:55)
[2025-04-13] MEDS: AMITRIPTYLINE HCL 25 MG TAB PO SCH (20:56)
[2025-04-13] MEDS: MONTELUKAST SODIUM 10 MG TABLET PO SCH (20:56)
[2025-04-13] MEDS: ATORVASTATIN 20 MG TAB PO SCH (20:56)
[2025-04-13] MEDS: HEPARIN 100 UNIT/ML 5ML FLUSH FLUSH PRN (20:57)
--- NOTE | 2025-04-14 12:15 | Hospitalist Progress Note ---
Date of Service April 14, 2025 Assessment & Plan (1) Pyelonephritis: Plan: 64-year-old female with past medical significant for idiopathic cardiac arrest/VT/PAD, hypertension, paroxysmal atrial fibrillation not on anticoagulation due to fall risk and anemia, restless leg syndrome, endometriosis/PCOS, history of MRSA, orthostatic hypotension on midodrine, hyperlipidemia/statin intolerance, asthma, COPD, sleep apnea, narcolepsy on CPAP celiac disease, GERD, irritable bowel syndrome, pancreatic divisum, left adrenal tumor as per report, hypothyroidism, presents because of left flank pain. On 03/08/2025 patient had a cystoscopy and bilateral stent placement for bilateral hydronephrosis and ureteral stones and laser Endo pyelotomy. Was admitted on 03/11/2025 for rapid A-fib and also severe sepsis secondary to complicated UTI. During that admission patient was treated with antibiotics for 5 days and urine cultures were negative. Her verapamil dose was decreased from 180 to 120 mg once daily and midodrine was titrated up to 5 mg 3 times daily because of hypotension requiring fluid boluses and was discharged on 03/18/2025. Patient was again admitted on 03/27/2025 for rapid A-fib and also recurrent complicated UTI. During her admission verapamil was changed to metoprolol succinate. Urine cultures grew actinobacter.. In the hospital she was treated with Rocephin and discharged on ciprofloxacin on 04/02/2025. Patient says since start of March she is having flank pain but last night the left flank pain got worse which prompted her to come to the ER. Denies any fevers. Has some hematuria in Jose per patient. Jose was removed in the ER and patient was voiding okay. Had some diarrhea as per patient. Denies any abdominal pain. Was feeling nauseous. No chest pain or shortness of breath. Complains of 5/10 headache. No runny nose or sore throat. Hemodynamics are okay currently. Left sided Pyelonephritis Presents with left flank pain UA suspicious for UTI CT abdomen pelvis showing severe left hydronephrosis and mild right hydronephrosis both worsened since prior study. No clear obstructing calculus or mass identified. Unchanged bilateral ureteral stents. Urine culture showing more than 3 types of organism, all high count. 1 out of 4 blood culture positive for Staph hominis; likely contaminant Patient evaluated by neurology during the hospitalization; they recommend outpatient follow-up. Jose catheter was removed with successful trial of void. Will repeat urine culture again; continue on antibiotics Follow-up on final culture and sensitivity of urine and blood culture History of A-fib Continue current metoprolol succinate with holding parameters Not on anticoagulation secondary to bleeding risk Biliary ductal dilatation CAT scan- LFT wnl. History of hypotension On midodrine- hold if SBP < 110 mm Hg Hyperlipidemia On statin-continue Sleep apnea Narcolepsy On CPAP nightly History of COPD Continue home inhalers Hypothyroidism On Synthyroid GERD Continue home medications DVT prophylaxis heparin Disposition Med/telemetry Full code. please note the above document was generated using voice recognition software. It may contain grammatical, syntax or spelling errors. Any formal questions or concerns about the content, text or information contained within the body of this dictation should be directly addressed to the provider for clarification Admission and Anticipated Discharge Date Admission Date: April 13, 2025 Subjective Patient seen and examined at bedside. She continues to report left-sided flank pain and urinary frequency. She was afebrile overnight. Vital signs appear stabl Review of Systems Review of Systems: All systems reviewed & are unremarkable except as noted in Subjective Physical Exam Physical Exam: General- Not in acute distress Head- atraumatic Eyes- PERRL. ENT- oropharynx clear Neck- supple, no JVD. Lungs- clear to auscultation no wheezing or crackles Heart- regular rhythm; no murmur, no gallop. Abdomen- normal bowel sounds, soft, nontender, no distension. left cva tenderness present Extremities- no pretibial edema, no erythema seen Neuro- alert, oriented PERRL, no facial palsy; no dysarthria; moves extremities Results & Data Results & Data Vital Signs (Past 12 Hours) Vital Signs Temp Pulse Pulse Resp BP BP Pulse Ox 04/14/25 08:44 37.1 C 74 17 124/72 97 04/14/25 07:33 62 04/14/25 02:58 36.3 C L 63 12 124/71 98 04/14/25 02:21 04/14/25 01:20 62 Pulse Ox O2 Del Method O2 Del Method 04/14/25 08:44 Room Air 04/14/25 07:33 04/14/25 02:58 Room Air 04/14/25 02:21 94 Room Air 04/14/25 01:20
[2025-04-14] MEDS: HEPARIN SOD 5,000 UNIT/0.5 ML VIAL SQ SCH (14:23)
[2025-04-15 08:26] LABS: Anion Gap 7.0 (3-11); Blood Urea Nitrogen 21.0 mg/dl (6-23); Calcium 9.2 mg/dl (8.6-10.3); Carbon Dioxide 19.0 mmol/L (21-32); Chloride 115.0 mmol/L (98-107); Creatinine Clr Calc Pharmacy 54.5 ml/min; Glucose 109.0 mg/dl (70-99(Fasting)); Potassium 4.1 mmol/L (3.5-5.1); Sodium 141.0 mmol/L (136-145)
--- NOTE | 2025-04-15 12:10 | Hospitalist Progress Note ---
Date of Service April 15, 2025 Assessment & Plan (1) Pyelonephritis: Plan: 64-year-old female with past medical significant for idiopathic cardiac arrest/VT/PAD, hypertension, paroxysmal atrial fibrillation not on anticoagulation due to fall risk and anemia, restless leg syndrome, endometriosis/PCOS, history of MRSA, orthostatic hypotension on midodrine, hyperlipidemia/statin intolerance, asthma, COPD, sleep apnea, narcolepsy on CPAP celiac disease, GERD, irritable bowel syndrome, pancreatic divisum, left adrenal tumor as per report, hypothyroidism, presents because of left flank pain. On 03/08/2025 patient had a cystoscopy and bilateral stent placement for bilateral hydronephrosis and ureteral stones and laser Endo pyelotomy. Was admitted on 03/11/2025 for rapid A-fib and also severe sepsis secondary to complicated UTI. During that admission patient was treated with antibiotics for 5 days and urine cultures were negative. Her verapamil dose was decreased from 180 to 120 mg once daily and midodrine was titrated up to 5 mg 3 times daily because of hypotension requiring fluid boluses and was discharged on 03/18/2025. Patient was again admitted on 03/27/2025 for rapid A-fib and also recurrent complicated UTI. During her admission verapamil was changed to metoprolol succinate. Urine cultures grew actinobacter.. In the hospital she was treated with Rocephin and discharged on ciprofloxacin on 04/02/2025. Patient says since start of March she is having flank pain but last night the left flank pain got worse which prompted her to come to the ER. Denies any fevers. Has some hematuria in Jose per patient. Jose was removed in the ER and patient was voiding okay. Had some diarrhea as per patient. Denies any abdominal pain. Was feeling nauseous. No chest pain or shortness of breath. Complains of 5/10 headache. No runny nose or sore throat. Hemodynamics are okay currently. Left sided Pyelonephritis Presents with left flank pain UA suspicious for UTI CT abdomen pelvis showing severe left hydronephrosis and mild right hydronephrosis both worsened since prior study. No clear obstructing calculus or mass identified. Unchanged bilateral ureteral stents. Urine culture showing more than 3 types of organism, all high count. 1 out of 4 blood culture positive for Staph hominis; likely contaminant Patient evaluated by neurology during the hospitalization; they recommend outpatient follow-up. Jose catheter was removed with successful trial of void. Repeat blood cx; continue on antibiotics Follow-up on final culture and sensitivity of urine and blood culture History of A-fib Continue current metoprolol succinate with holding parameters Not on anticoagulation secondary to bleeding risk Biliary ductal dilatation CAT scan- LFT wnl. History of hypotension On midodrine- hold if SBP < 110 mm Hg Hyperlipidemia On statin-continue Sleep apnea Narcolepsy On CPAP nightly History of COPD Continue home inhalers Hypothyroidism On Synthyroid GERD Continue home medications DVT prophylaxis heparin Disposition Med/telemetry Full code. please note the above document was generated using voice recognition software. It may contain grammatical, syntax or spelling errors. Any formal questions or concerns about the content, text or information contained within the body of this dictation should be directly addressed to the provider for clarification Admission and Anticipated Discharge Date Admission Date: April 13, 2025 Subjective Patient seen and examined at bedside. She continues to report pain in her left abdomen. No fever or chills overnight. Vital signs remained stable. Review of Systems Review of Systems: All systems reviewed & are unremarkable except as noted in Subjective Physical Exam Physical Exam: General- Not in acute distress Head- atraumatic Eyes- PERRL. ENT- oropharynx clear Neck- supple, no JVD. Lungs- clear to auscultation no wheezing or crackles Heart- regular rhythm; no murmur, no gallop. Abdomen- normal bowel sounds, soft, nontender, no distension. slight tenderness in left lower quadrant Extremities- no pretibial edema, no erythema seen Neuro- alert, oriented PERRL, no facial palsy; no dysarthria; moves extremities Results & Data Results & Data Vital Signs (Past 12 Hours) Vital Signs Temp Pulse Resp BP Pulse Ox Pulse Ox O2 Del Method 04/15/25 11:55 36.8 C 66 17 109/66 96 Room Air 04/15/25 09:09 68 04/15/25 08:19 36.7 C 60 17 132/78 95 Room Air 04/15/25 03:25 37.1 C 70 14 123/71 94 Room Air 04/15/25 02:00 94 O2 Del Method 04/15/25 11:55 04/15/25 09:09 04/15/25 08:19 04/15/25 03:25 04/15/25 02:00 Room Air
[2025-04-15 16:12] VITALS: RESP 18
--- NOTE | 2025-04-16 10:25 | Discharge Summary ---
Date of Service April 16, 2025 Admission HPI Per Admitting Provider 64-year-old female with past medical significant for idiopathic cardiac arrest/VT/PAD, hypertension, paroxysmal atrial fibrillation not on anticoagulation due to fall risk and anemia, restless leg syndrome, endometrio sis/PCOS, history of MRSA, orthostatic hypotension on midodrine, hyperlipidemia/statin intolerance, asthma, COPD, sleep apnea, narcolepsy on CPAP celiac disease, GERD, irritable bowel syndrome, pancreatic divisum, left adrenal tumor as per report, hypothyroidism, presents because of left flank pain. On 03/08/2025 patient had a cystoscopy and bilateral stent placement for bilateral hydronephrosis and ureteral stones and laser Endo pyelotomy. Was admitted on 03/11/2025 for rapid A-fib and also severe sepsis secondary to complicated UTI. During that admission patient was treated with antibiotics for 5 days and urine cultures were negative. Her verapamil dose was decreased from 180 to 120 mg once daily and midodrine was titrated up to 5 mg 3 times daily because of hypotension requiring fluid boluses and was discharged on 03/18/2025. Patient was again admitted on 03/27/2025 for rapid A-fib and also recurrent complicated UTI. During her admission verapamil was changed to metoprolol succinate. Urine cultures grew actinobacter.. In the hospital she was treated with Rocephin and discharged on ciprofloxacin on 04/02/2025. Patient says since start of March she is having flank pain but last night the left flank pain got worse which prompted her to come to the ER. Denies any fevers. Has some hematuria in Jose per patient. Jose was removed in the ER and patient was voiding okay. Had some diarrhea as per patient. Denies any abdominal pain. Was feeling nauseous. No chest pain or shortness of breath. Complains of 5/10 headache. No runny nose or sore throat. Hemodynamics are okay currently. Past medical history. As mentioned above. Past surgical history. Allograft for spine surgery. Left knee arthroscopy. Left heart catheterization. Colonoscopy. EGD. EGD with biopsy. EGD with endoscopic ultrasound. Laparoscopic excision of lesions. Left knee arthroscopy. Nasal surgery. Neck spine fusion. Reconstruction nose. Laminectomy. Cholecystectomy. Total abdominal hysterectomy with removal of tubes. Social history. . No smoking. No alcohol use. No drug use. Family history. Mother had arthritis. GERD. Hiatal hernia. A-fib. Sleep apnea. Bipolar disorder. Osteoporosis. Stroke. Father had A-fib. CAD. Mitochondrial disease. Admission Exam Per Admitting Provider General- Not in acute distress Head- atraumatic Eyes- PERRL. ENT- oropharynx clear Neck- supple, no JVD. Lungs- clear to auscultation no wheezing or crackles Heart- regular rhythm; no murmur, no gallop. Abdomen- normal bowel sounds, soft, nontender, no distension. left cva tenderness present Extremities- no pretibial edema, no erythema seen Neuro- alert, oriented PERRL, no facial palsy; no dysarthria; moves extremities Principal Diagnosis Left sided Pyelonephritis Discharge Exam General- Not in acute distress Head- atraumatic Eyes- PERRL. ENT- oropharynx clear Neck- supple, no JVD. Lungs- clear to auscultation no wheezing or crackles Heart- regular rhythm; no murmur, no gallop. Abdomen- normal bowel sounds, soft, nontender, no distension. slight tenderness in left lower quadrant Extremities- no pretibial edema, no erythema seen Neuro- alert, oriented PERRL, no facial palsy; no dysarthria; moves extremities Discharge Data Allergies Allergy/AdvReac Type Severity Reaction Status Date / Time bee venom protein (honey bee) Allergy Severe ANAPHYLAXIS Verified 04/12/25 19:19 coconut Allergy Severe RASH; SOB Verified 04/12/25 19:19 gluten Allergy Severe CELIAC'S Verified 04/12/25 19:19 latex Allergy Severe Anaphylaxis Verified 04/12/25 19:19 Penicillins Allergy Severe Anaphylaxis Verified 04/12/25 19:19 Sulfa (Sulfonamide Allergy Severe Anaphylaxis Verified 04/12/25 19:19 Antibiotics) ROBER Inhibitors Allergy Intermediate RASH/TACHYC Verified 04/12/25 19:19 ARDIA cefaclor Allergy Intermediate CECLOR--RASH/UPSET Verified 04/12/25 19:19 STOMACH egg Allergy Intermediate RASH & Verified 04/12/25 19:19 Bloating Influenza Virus Vaccines Allergy Intermediate rash and Verified 04/12/25 19:19 bloating tetracycline Allergy Intermediate NAUSEA/VOMI Verified 04/12/25 19:19 TING/RASH Quinolones Allergy Unknown ALLERGY TO Verified 04/12/25 19:19 AVELOX ,CAN TAKE CIPRO OR LEVAQUIN W/O RXN Beta-Blockers AdvReac Intermediate intolerance Verified 04/12/25 19:19 (Beta-Adrenergic Bloc as per records lactose AdvReac Intermediate BLOATING; Verified 04/12/25 19:19 DIARRHEA; VOMITING Consultations 04/12/25 21:55 ED Decision to Admit Stat 04/12/25 23:19 Consult Urology Stat Ordered Studies 04/12/25 17:34 CT Abd and Pelvis [CT abd pelvis IV con only] Stat Hospital Course (1) Pyelonephritis: 64-year-old female with past medical significant for idiopathic cardiac arrest/VT/PAD, hypertension, paroxysmal atrial fibrillation not on anticoagulation due to fall risk and anemia, restless leg syndrome, endometriosis/PCOS, history of MRSA, orthostatic hypotension on midodrine, hyperlipidemia/statin intolerance, asthma, COPD, sleep apnea, narcolepsy on CPAP celiac disease, GERD, irritable bowel syndrome, pancreatic divisum, left adrenal tumor as per report, hypothyroidism, presents because of left flank pain. On 03/08/2025 patient had a cystoscopy and bilateral stent placement for bilateral hydronephrosis and ureteral stones and laser Endo pyelotomy. Was admitted on 03/11/2025 for rapid A-fib and also severe sepsis secondary to complicated UTI. During that admission patient was treated with antibiotics for 5 days and urine cultures were negative. Her verapamil dose was decreased from 180 to 120 mg once daily and midodrine was titrated up to 5 mg 3 times daily because of hypotension requiring fluid boluses and was discharged on 03/18/2025. Patient was again admitted on 03/27/2025 for rapid A-fib and also recurrent complicated UTI. During her admission verapamil was changed to metoprolol succinate. Urine cultures grew actinobacter.. In the hospital she was treated with Rocephin and discharged on ciprofloxacin on 04/02/2025. Patient says since start of March she is having flank pain but last night the left flank pain got worse which prompted her to come to the ER. Denies any fevers. Has some hematuria in Jose per patient. Jose was removed in the ER and patient was voiding okay. Had some diarrhea as per patient. Denies any abdominal pain. Was feeling nauseous. No chest pain or shortness of breath. Complains of 5/10 headache. No runny nose or sore throat. Hemodynamics are okay currently. Left sided Pyelonephritis Presents with left flank pain UA suspicious for UTI CT abdomen pelvis showing severe left hydronephrosis and mild right hydronephrosis both worsened since prior study. No clear obstructing calculus or mass identified. Unchanged bilateral ureteral stents. Urine culture showing more than 3 types of organism, all high count. 1 out of 4 blood culture positive for Staph hominis; likely contaminant Patient evaluated by urology during the hospitalization; they recommend outpatient follow-up. Jose catheter was removed with successful trial of void. Repeat blood culture did not show any growth. Patient was discharged on 5 more days of antibiotic with instructions to follow- up with urology and PCP. History of A-fib Continue current metoprolol succinate with holding parameters Not on anticoagulation secondary to bleeding risk please note the above document was generated using voice recognition software. It may contain grammatical, syntax or spelling errors. Any formal questions or concerns about the content, text or information contained within the body of this dictation should be directly addressed to the provider for clarification Total Time Total Time Spent Total Time Spent (In Minutes): 45 Total Time Includes: Examination of the Patient, Discharge Planning, Medication Reconciliation, Communication With Other Providers and Other Discharge Plan Discharge Items Patient Disposition: Home - Self-Care Reason For Visit: PYELONEPHRITIS, A FIB Discharge Diagnosis: Left sided Pyelonephritis Condition on Discharge: Fair Activity: Resume your previous activity Non-emergency contact: Primary Care Provider Call non-emergency contact if: you have any medication questions and your symptoms worsen Follow-up/Referrals: Vicki Watson MD [Primary Care Provider] - (Date & Time 04/19/2025 11:40 AM Provider: Christiano Muñoz MD Family Medicine [facility]) Diet: Regular Addtl Attending Provider Instructions: You were admitted to the hospital for concern of left-sided kidney infection. You were evaluated by urology; they do not recommend any changes. You have been prescribed ciprofloxacin to be taken for 5 more days. Please take Tylenol for pain control. If you have severe pain;you can take oxycodone as needed. Pending Studies at Discharge: No Stand-Alone Forms: My [employer], Smoking Cessation Medications and DC Order Prescriptions: New oxycodone 5 mg Tablet 5 mg PO Q6H PRN (Reason: pain) Qty: 10 0RF ciprofloxacin HCl [Cipro] 500 mg tablet 500 mg PO BID 5 Days Qty: 10 0RF Continued fluticasone propion-salmeterol [Advair Diskus] 250-50 mcg/dose Blister With Device 1 inh INHALATION BID atorvastatin 20 mg Tablet 20 mg PO HS cimetidine 400 mg Tablet 400 mg PO BID Rx Instructions: administer with meals hyoscyamine sulfate 0.375 mg Tablet Extended Release 12 Hr 0.375 mg PO Q6H PRN (Reason: Abdominal Pain) folic acid 1 mg Tablet 1 mg PO BID montelukast 10 mg Tablet 10 mg PO HS levothyroxine 100 mcg Capsule 100 mcg PO QAM Combivent Respimat 20-100 mcg/actuation Mist 1 puff INHALATION QID PRN (Reason: Shortness Of Breath Or Wheezing) Rx Instructions: space evenly during waking hours rabeprazole [AcipHex] 20 mg Tablet,Delayed Release (Dr/Ec) 40 mg PO BID sucralfate 1 gram Tablet 1 g PO ACHS fexofenadine 180 mg Tablet 180 mg PO QAM aspirin 81 mg Tablet,Delayed Release (Dr/Ec) 81 mg PO QAM topiramate 100 mg Tablet 100 mg PO BID multivitamin Tablet 1 tab PO QAM levalbuterol HCl 1.25 mg/3 mL Solution For Nebulization 1.25 mg INHALATION .Q4-6H PRN (Reason: Shortness Of Breath Or Wheezing) amitriptyline 75 mg Tablet 75 mg PO HS ondansetron 4 mg Tablet,Disintegrating 4 mg PO Q8H PRN (Reason: Nausea And Vomiting) polyethylene glycol 3350 [Miralax] 17 gram Powder In Packet 17 g PO QAM azelastine 137 mcg (0.1 %) [place],Non-Aerosol 1 spray INTRANASAL BID Rx Instructions: administer into each nostril (DME) CPAP Machine Misc Rx Instructions: 1 LPM bled through CPAP during hours of sleep oxybutynin chloride 5 mg tablet 5 mg PO Q8H PRN (Reason: bladder spasms) Qty: 9 0RF epinephrine 0.3 mg/0.3 mL auto-injector 0.3 mg subcut UD PRN (Reason: Anaphylaxis) midodrine 5 mg tablet 5 mg PO TID Qty: 90 0RF Rx Instructions: do not give last dose of day after 6PM or within 4 hrs of bedtime metoprolol succinate 25 mg Tablet Extended Release 24 Hr 37.5 mg PO BID Qty: 90 0RF Discharge Orders: Discharge Order (Routine); Ordered 04/16/25 Ordered By: Tito Rodriguez Admission Data Admit Date/Time: 04/13/25 01:01 Attending Provider: Tito Rodriguez Admit Provider: Marcel Coello Primary Care Provider: Vicki Watson Other Providers: Marcel Coello; Dex Williamson Other Interventions: Discharge Summary Assessment (RN) Last Done: 04/16/25 18:08
[2025-04-16 15:23] VITALS: TEMP 98.2; O2SAT 97
[2025-04-16 18:08] VITALS: BP 124/71; PULSE 58
== END 2025-04-16 18:31 | disposition home or self-care (01) | DRG 690 ==
LOC: ED 16:44 → 2N 04-13 01:01

== ENCOUNTER 2025-05-05 18:59 | Inpatient (IN) ==
--- NOTE | 2025-05-05 19:06 | Emergency Department Note ---
Impression & Plan UGIB (upper gastrointestinal bleed), Dyspnea, Symptomatic anemia ED Provider Note NAME: SHAYY CARRILLO AGE: 64 SEX: F : 1960 ARRIVES VIA: Walk-In INFORMANT: Patient, ED PROVIDER(S): Burt Dawson MD CHIEF COMPLAINT: Shortness of breath, dark stools MEDICAL DECISION MAKING: Patient presents due to concern for shortness of breath and tachycardia. EKG shows sinus tachycardia no evidence of obvious A-fib. IV was established and blood work was obtained patient was ordered a liter of IV fluids. Patient with a white count of 11. Hemoglobin is 7. The patient's most recent hemoglobin was 11.8 back on April 13. Platelet count is unremarkable. Kidney function with prerenal azotemia. Given this and the patient's anemia concerning for upper GI bleed. Patient was consented for 2 units and ordered. I did ask to see if the patient can be given O- the patient does have antibodies that are positive and so unlikely cannot receive this without having a reaction. I did speak the on-call hospitalist service Dr. Johnson and the patient was admitted to the medicine service. Believe the patient symptoms likely secondary to likely GI bleeding. Of note the patient did have a run of nonsustained VT at 7 beats. I did convey this to the hospital service. Patient did not require any interventions for this. Patient was subsequently admitted. Critical Care: I have personally spent 55 minutes of critical care time in direct management of this patient. This includes bedside care, interpretation of diagnostic studies, and testing, discussion with consultants, patient, and family members, and other require inpatient management activities. This 55 minutes is in excess of all separately billable procedures. Discussion w/ other healthcare providers: Dr. Johnson inpatient medicine service Prior /Outside records reviewed: None Differential diagnosis: Reactive airway disease, pneumonia, pneumothorax, COPD, CHF, ACS, pulmonary embolism, musculoskeletal, GERD as well as other pathologies were considered. Diagnostics, as interpreted by me: ECG: Normal sinus rhythm, rate 94, normal intervals, normal axis no ST elevations. Cardiac monitoring: An order was placed for continuous cardiac monitoring. The monitor shows a rate of 95 with sinus rhythm. Patient was placed on pulse oximetry Medical decision rules: None Imaging studies: I informally interpreted the patient's chest x-ray does not show obvious pneumonia or pneumothorax with formal report to follow. HPI: Patient presents due to concern for feeling as though she may be in A-fib. The patient has had this before and does take metoprolol twice daily. She reports compliance and no recent medication changes. The patient states that her heart rate has been up and down. Patient has had associated centralized chest pain which seems to worsen with rapid heart rate. Patient states that she has a history of heart disease but no stents or bypass. She does follow with Dr. Aguirre. She is not anticoagulated secondary to anemia. Patient denies any falls or trauma. She does live at home with her and 4-1/2-year-old twins who are adopted. Patient denies any alcohol or tobacco use. PAST MEDICAL HISTORY: See Below PAST SURGICAL HISTORY: See Below SOCIAL HISTORY: See Below HOME MEDICATIONS: See Below ALLERGIES: See Below VITALS: See Below PHYSICAL EXAMINATION: GENERAL: NAD, non-toxic. EYE EXAM: Normal conjunctiva. PERRL, no anisocoria and EOM's grossly intact w/o pain. OROPHARYNX: Moist mucus membranes, poor dentition. NECK: Trachea midline, no stridor. LUNGS: Clear to auscultation. Normal chest wall mechanics. HEART: Tachycardic and regular, no MRG. ABDOMEN: Abdomen soft, non-tender, no masses, no rebound or guarding. BACK: No CVA TTP. SKIN: No rashes and no bruising. UPPER EXTREMITIES: Upper extremities are grossly normal. LOWER EXTREMITIES: Grossly normal, no edema. NEURO EXAM: Awake and alert, follows commands, no obvious facial asymmetry, normal speech, moves all 4 extremities. Past Med/Surg History Problem List (Updated 05/05/25 @ 22:53 by Burt Dawson MD) Symptomatic anemia (Acute) Dyspnea (Acute) UGIB (upper gastrointestinal bleed) (Acute) Hydroureteronephrosis (Acute) Acute pyelonephritis (Acute) Pyelonephritis Contraindication to anticoagulation therapy Hypotension Atrial fibrillation Elevated procalcitonin (Acute) Atrial fibrillation with rapid ventricular response (Acute) Generalized weakness (Acute) Rupture of kidney (Acute) LILLIANA (acute kidney injury) (Acute) Transaminitis (Acute) Sepsis (Acute) Atrial fibrillation with rapid ventricular response (Acute) Incontinence (Chronic) Adrenal nodule (Chronic) Renal cyst (Acute) Bilateral hydronephrosis (Chronic) Abdominal pain PSVT (paroxysmal supraventricular tachycardia) Elevated brain natriuretic peptide (BNP) level (Acute) Atrial tachycardia, paroxysmal Syncope (Acute) 01/2024 per records Dyspnea (Acute) Shortness of breath (Acute) PAF (paroxysmal atrial fibrillation) Sinus tachycardia (Acute) Palpitation (Acute) Hypokalemia Transaminitis Elevated LFTs (Acute) Encounter for pre-operative examination CYNTHIA (obstructive sleep apnea) (Chronic) Asthma, severe persistent (Chronic) Gastroparesis (Chronic) Celiac disease (Chronic) GERD (gastroesophageal reflux disease) (Chronic) IBS (irritable bowel syndrome) (Chronic) Hypothyroidism (Chronic) no current medication -- TSH normal without meds. CHARLES (iron deficiency anemia) (Chronic) ferrous sulfate QID. Dyslipidemia (Chronic) MRSA (methicillin resistant Staphylococcus aureus) (Chronic) 1999 dx nose septum wound 2019 dx in lungs Medical History Flank pain Acute UTI (urinary tract infection) Elevated troponin NSVT (nonsustained ventricular tachycardia) - hx of nonsustained VT (isolated run on Zio without associated symptoms per cardio); intolerance to beta blockers Renal cyst per medical record, pt unsure Depression Port-A-Cath in place Bilateral hydronephrosis Chronic kidney disease stage 3 or 4 - follows with [facility] Nephrology Sari fish Hx of gastric ulcer Chronic gastritis GERD (gastroesophageal reflux disease) Migraines Chronic nausea Seasonal allergies Hypothyroidism Paroxysmal A-fib - follows with Dr. Aguirre, takes asa daily (not anticoagulated due to anemia and fall risk per cardio records ) - patient referred at last cardio appt 10/2024 for evaluation for left appendage occluder device Celiac disease Hx of renal calculi no surgical intervention needed Poor intravenous access PSVT (paroxysmal supraventricular tachycardia) - no current issues per patient Hx MRSA infection 1999 dx nose septum wound 2019 dx in lungs Gastroparesis IBS (irritable bowel syndrome) Dyslipidemia CHARLES (iron deficiency anemia) History of COVID-19 has had ~5 times - last had ~early 2023, no hospitalization. Orthostatic hypotension Follows with [facility] cardiology On midodrine Chronic anemia frequent iron and blood transfusions. Hypertension hx --> pt reports she is being treated for hypotension Adrenal cyst monitoring unchanged per 2024 imaging; benign per PCP Chronic back pain Degenerative disc disease Osteoarthritis Anxiety Mitral valve prolapse follows with Dr Aguirre Narcolepsy Chronic obstructive pulmonary disease uncontrolled, uses inhalers daily Sleep apnea CPAP + 2lpm of oxygen Surgical History H/O insertion of central venous access port power port placed due to poor IV access + frequent blood draws/iron/blood transfusions S/P spinal fusion C1 through L3 or L4 (~2021 at [facility]) History of cardioversion ~2019 History of cardiac radiofrequency ablation ~2014 [facility] History of bronchoscopy in the S/P trigger finger release right hand History of ankle surgery bilateral ankle repair with hardware H/O hand surgery with hardware (left) S/P GLENNY-BSO S/P surgery on nasal septum "collapsed septum" s/p post op infection that "ate away the septum" S/P nasal surgery multiple Hx of cholecystectomy History of arthroscopic knee surgery left Hx of cardiac cath "2009 - normal coronaries" (pt denies) History of esophagogastroduodenoscopy (EGD) History of colonoscopy History of dilatation and curettage Family History Other No family history of adverse response to anesthesia Social History Smoking Status: Never smoker Second Hand Exposure: No; Do You Dip or Chew Tobacco: No; Tobacco Cessation Education Requested by Patient: No Hx Alcohol Use: No Hx Substance Use: No Preferred Language: Nepali Communication Ability: Effective Adjudication Specialist Required: No Beliefs That Will Affect Care: None marital status: Current Living Situation: Spouse Current Living Situation Comment: 4yr old twins at home Other Information That Helps Us Care for You: No Feels Safe at Home: Yes Safety Concerns: Feels Safe At This Time Assistive Devices: Glasses and Hospital Bed Allergies Allergies Allergy/AdvReac Type Severity Reaction Status Date / Time bee venom protein (honey bee) Allergy Severe ANAPHYLAXIS Verified 04/12/25 19:19 coconut Allergy Severe RASH; SOB Verified 04/12/25 19:19 gluten Allergy Severe CELIAC'S Verified 04/12/25 19:19 latex Allergy Severe Anaphylaxis Verified 04/12/25 19:19 Penicillins Allergy Severe Anaphylaxis Verified 04/12/25 19:19 Sulfa (Sulfonamide Allergy Severe Anaphylaxis Verified 04/12/25 19:19 Antibiotics) ROBER Inhibitors Allergy Intermediate RASH/TACHYC Verified 04/12/25 19:19 ARDIA cefaclor Allergy Intermediate CECLOR--RASH/UPSET Verified 04/12/25 19:19 STOMACH egg Allergy Intermediate RASH & Verified 04/12/25 19:19 Bloating Influenza Virus Vaccines Allergy Intermediate rash and Verified 04/12/25 19:19 bloating tetracycline Allergy Intermediate NAUSEA/VOMI Verified 04/12/25 19:19 TING/RASH Quinolones Allergy Unknown ALLERGY TO Verified 04/12/25 19:19 AVELOX ,CAN TAKE CIPRO OR LEVAQUIN W/O RXN Beta-Blockers AdvReac Intermediate intolerance Verified 04/12/25 19:19 (Beta-Adrenergic Bloc as per records lactose AdvReac Intermediate BLOATING; Verified 04/12/25 19:19 DIARRHEA; VOMITING Home Meds Home Medications Medication Instructions Recorded Confirmed aspirin 81 mg tablet,delayed 81 mg PO QAM 09/14/24 05/05/25 release atorvastatin 20 mg tablet 20 mg PO HS 09/14/24 05/05/25 cimetidine 400 mg tablet 400 mg PO [facility] 09/14/24 05/05/25 fexofenadine 180 mg tablet 180 mg PO QAM 09/14/24 05/05/25 fluticasone 250 mcg-salmeterol 50 1 inh inhalation [facility] 09/14/24 05/05/25 mcg/dose blistr powdr for inhalation (Advair Diskus) folic acid 1 mg tablet 2 mg PO [facility] 09/14/24 05/05/25 hyoscyamine sulfate 0.375 mg 0.375 mg PO Q6H PRN Abdominal Pain 09/14/24 05/05/25 tablet,extended release,12 hr ipratropium 20 mcg-albuterol 100 1 puff inhalation QID PRN 09/14/24 05/05/25 mcg/actuation mist for inhalation Shortness Of Breath Or Wheezing (Combivent Respimat) levothyroxine 100 mcg capsule 100 mcg PO DAILYBB 09/14/24 05/05/25 montelukast 10 mg tablet 10 mg PO HS 09/14/24 05/05/25 multivitamin 1 tab PO QAM 09/14/24 05/05/25 rabeprazole 20 mg tablet,delayed 40 mg PO BID 09/14/24 05/05/25 release (AcipHex) sucralfate 1 gram tablet 1 g PO ACHS 09/14/24 05/05/25 topiramate 100 mg tablet 100 mg PO BID 09/14/24 05/05/25 CPAP Machine 09/15/24 05/05/25 amitriptyline 75 mg tablet 75 mg PO HS 09/15/24 05/05/25 azelastine 137 mcg (0.1 %) nasal 1 spray intranasal BID 09/15/24 05/05/25 spray levalbuterol HCl 1.25 mg/3 mL 1.25 mg inhalation .Q4-6H PRN 09/15/24 05/05/25 solution for nebulization Shortness Of Breath Or Wheezing ondansetron 4 mg disintegrating 4 mg PO Q8H PRN Nausea And Vomiting 09/15/24 05/05/25 tablet polyethylene glycol 3350 17 gram 17 g PO QAM 09/15/24 05/05/25 oral powder packet (Miralax) epinephrine 0.3 mg/0.3 mL 0.3 mg subcut UD PRN Anaphylaxis 03/11/25 05/05/25 injection, auto-injector benzonatate 100 mg capsule 100 mg PO TID PRN Cough 05/05/25 05/05/25 ergocalciferol (vitamin D2) 1,250 1,250 mcg PO WK 05/05/25 05/05/25 mcg (50,000 unit) capsule fluconazole 200 mg tablet 200 mg PO QAM 05/05/25 05/05/25 oxybutynin chloride 5 mg 5 mg PO QAM 05/05/25 05/05/25 tablet,extended release 24 hr phenazopyridine 200 mg tablet 200 mg PO TID PRN as directed 05/05/25 05/05/25 Previous Rx's Medication Instructions Recorded midodrine 5 mg tablet 5 mg PO TID #90 tabs 03/18/25 metoprolol succinate 25 mg 37.5 mg (1.5 x 25 mg) PO BID #90 04/02/25 tablet,extended release 24 hr tabs Results & Data (ED) Vital Signs Vital Signs - 24 hr 05/05/25 19:01 05/05/25 19:04 05/05/25 19:07 Temperature 37.1 C Temperature Source Oral Pulse Rate 127 H 125 H Pulse Rate from SpO2 Sensor Respiratory Rate 18 Respiratory Effort / Characteristics Non-Labored Spontaneous Respiratory Depth Normal Respiratory Pattern Regular Blood Pressure 137/67 Blood Pressure Mean 90 Blood Pressure Position Sitting Pulse Oximetry 94 Oxygen Delivery Method Room Air Room Air Sepsis Recent Fever Within 48 Hours No Sepsis New/Unexplained Change in Mental Status N/A Sepsis Action Taken by Nursing No Action Required 05/05/25 19:14 05/05/25 19:33 05/05/25 19:57 Temperature Temperature Source Pulse Rate 96 H 91 H Pulse Rate from SpO2 Sensor 97 H 91 H Respiratory Rate 22 28 H Respiratory Effort / Characteristics Respiratory Depth Respiratory Pattern Blood Pressure 121/83 127/91 Blood Pressure Mean 95 103 Blood Pressure Position Pulse Oximetry 95 97 97 Oxygen Delivery Method Room Air Sepsis Recent Fever Within 48 Hours Sepsis New/Unexplained Change in Mental Status Sepsis Action Taken by Nursing 05/05/25 20:33 05/05/25 20:35 Temperature Temperature Source Pulse Rate 104 H 141 H Pulse Rate from SpO2 Sensor 102 H Respiratory Rate 25 H Respiratory Effort / Characteristics Respiratory Depth Respiratory Pattern Blood Pressure 118/84 Blood Pressure Mean 95 Blood Pressure Position Pulse Oximetry 98 Oxygen Delivery Method Sepsis Recent Fever Within 48 Hours Sepsis New/Unexplained Change in Mental Status Sepsis Action Taken by Shelter Medications Current Medication List: was personally reviewed by me Laboratory Data Attestation: I reviewed the patient's lab results. 05/05/25 19:56 05/05/25 19:56 Lab Results 05/05/25 05/05/25 Range/Units 19:56 20:43 WBC 11.14 H (4.8-10.8) K/ul RBC 2.33 L (4.20-5.40) M/uL Hgb 7.0 L (12.0-16.0) g/dl Hct 22.7 L (37.0-47.0) % MCV 97.4 (80.0-100.0) fL MCH 30.0 (25.0-34.0) pg MCHC 30.8 L (32.0-36.0) g/dL RDW Std Deviation 48.9 H (36.4-46.3) fL RDW Coeff of Reginaldo 13.6 (11.5-14.5) % Plt Count 355 (130-400) K/uL MPV 9.3 L (9.4-12.4) fL Immature Gran % (Auto) 0.4 % Neut % (Auto) 75.9 % Lymph % (Auto) 17.8 % Valencia % (Auto) 4.2 % Eos % (Auto) 1.3 % Baso % (Auto) 0.4 % Neut # (Auto) 8.45 H (1.40-6.50) K/uL Lymph # (Auto) 1.98 (1.20-3.40) K/uL Valencia # (Auto) 0.47 (0.11-0.59) K/uL Eos # (Auto) 0.15 (0.00-0.50) K/uL Baso # (Auto) 0.04 (0.00-0.20) K/uL Immature Gran # (Auto) 0.05 (0.01-0.20) K/uL Polychromasia 1+ PT 12.8 H (9.0-12.0) Seconds INR 1.2 H (0.9-1.1) APTT 23 (21-31) Seconds PTT Ratio 0.8 Sodium 139 (136-145) mmol/L Potassium 4.8 (3.5-5.1) mmol/L Chloride 108 H (98-107) mmol/L Carbon Dioxide 22 (21-32) mmol/L Anion Gap 9 (3-11) BUN 61 H (6-23) mg/dl Creatinine 1.28 H (0.6-1.2) mg/dl Est Cr Clr Drug Dosing Not Reportable eGFR 47.07 BUN/Creatinine Ratio 47.7 H (10-20) Glucose 109 H (70-99(Fasting)) mg/dl Calcium 9.2 (8.6-10.3) mg/dl Phosphorus 2.9 (2.5-4.9) mg/dl Magnesium 1.8 (1.7-2.4) mg/dl Total Bilirubin 0.2 (0.2-1.0) mg/dl AST 10 L (13-39) U/L ALT 30 (7-52) U/L Alkaline Phosphatase 362 H (34-104) U/L Troponin I High Sens 10.1 (0-14) pg/ml Total Protein 6.6 (6.0-8.3) gm/dl Albumin 3.2 L (3.4-5.0) gm/dl Globulin 3.4 (2.5-4.0) gm/dl Albumin/Globulin Ratio 0.9 (0.9-2) Lipase 28 (11-82) U/L Procalcitonin 0.22 (0-0.5) ng/ml Blood Type A Positive Antibody Screen POSITIVE A Crossmatch See Detail Administered Medications Pantoprazole Sodium 40 mg/ (Dextrose) 100 mls @ 20 mls/hr IV Q5H JAYSHREE Stop: 06/04/25 20:59 Last Admin: 05/05/25 22:05 Dose: 8 mg/hr, 20 mls/hr Documented By: SALINA Magnesium Sulfate/Dextrose (Magnesium Sulfate / D5w) 1 gm in 100 mls @ 50 mls/hr IV Q2H JAYSHREE Stop: 05/06/25 00:44 Last Admin: 05/05/25 20:57 Dose: 50 mls/hr Documented By: BISI Sodium Chloride (Nss) 1,000 mls @ 50 mls/hr IV .Q20H ONE Stop: 05/06/25 17:14 Last Admin: 05/05/25 22:11 Dose: 50 mls/hr Documented By: SALINA Discontinued Medications Sodium Chloride (Nss) 1,000 mls @ 999 mls/hr IV .Q1H1M JAYSHREE Stop: 05/05/25 20:15 Last Infusion: 05/05/25 21:14 Dose: Infused Documented By: Admin: 05/05/25 19:52 Dose: 999 mls/hr Documented By: dylan Pantoprazole Sodium 80 mg/ (Dextrose) 120 mls @ 480 mls/hr IV NOW ONE Stop: 05/05/25 20:50 Last Infusion: 05/05/25 21:35 Dose: Infused Documented By: Admin: 05/05/25 21:08 Dose: 480 mls/hr Documented By: BISI Metoprolol Tartrate (Metoprolol Tartrate 1 Mg/Ml Vial) 2.5 mg IV NOW STA Stop: 05/05/25 20:55 Last Admin: 05/05/25 21:00 Dose: 2.5 mg Documented By: BISI Metoprolol Tartrate (Metoprolol Tartrate 1 Mg/Ml Vial) 2.5 mg IV NOW STA Stop: 05/05/25 21:00 Last Admin: 05/05/25 21:04 Dose: Not Given Documented By: BISI Miscellaneous (Patient's Height &/Or Weight Needed) 1 each N/A NOW STA Stop: 05/05/25 20:49 Last Admin: 05/05/25 21:11 Dose: 1 each Documented By: BISI Pantoprazole Sodium (Pantoprazole Bolus/Drip) 1 each IV NOW STA Stop: 05/05/25 20:37 Last Admin: 05/05/25 21:12 Dose: Not Given Documented By: BISI Imaging Data Radiologist's Impression: Chest X-Ray 05/05/25 19:14 Chest radiograph, one view History: Chest pain Comparison: 04/12/2025 Findings: Single AP view of the chest performed. No focal consolidation or pleural effusion. No pneumothorax. Right chest wall port with catheter tip in the SVC is on prior. The cardiomediastinal silhouette is within normal limits. Normal pulmonary vascularity. No evidence for lymphadenopathy. No visualized bony or soft tissue abnormality. There are a few chronic left rib deformities again seen. Impression: Normal chest radiograph Electronically signed by Lai Gimenez 05-05-2025 8:03 PM Discharge Plan Visit Data Chief Complaint: Tachycardia Stated Complaint: RAPID HEARAT RATE, DIZZINES, POOPING BLACK STOOLD ED Provider: Burt Dawson Discharge Problem: UGIB (upper gastrointestinal bleed), Dyspnea, Symptomatic anemia Patient Disposition: Admitted As Inpatient Condition: Good Discharge Instructions Interventions: ED Discharge Assessment Last Done: 05/05/25 21:42 Discharge Problem: Dyspnea Qualifiers: Dyspnea type: shortness of breath Qualified Code(s): R06.02 - Shortness of breath
[2025-05-05] MEDS: SODIUM CHLORIDE 0.9% 1,000 ML IV SCH (19:52)
--- NOTE | 2025-05-05 20:04 | XRay Report ---
Chest radiograph, one view History: Chest pain Comparison: 04/12/2025 Findings: Single AP view of the chest performed. No focal consolidation or pleural effusion. No pneumothorax. Right chest wall port with catheter tip in the SVC is on prior. The cardiomediastinal silhouette is within normal limits. Normal pulmonary vascularity. No evidence for lymphadenopathy. No visualized bony or soft tissue abnormality. There are a few chronic left rib deformities again seen. Impression: Normal chest radiograph Electronically signed by Lai Gimenez 05-05-2025 8:03 PM
[2025-05-05 20:08] LABS: Hematocrit (blood only) 22.7 % (37.0-47.0); Hemoglobin 7.0 g/dl (12.0-16.0); Immature Granulocytes # (auto) 0.05 K/uL (0.01-0.20); Immature Granulocytes % (auto) 0.4 %; Mean Corpuscular Hemoglobin 30.0 pg (25.0-34.0); Mean Corpuscular Volume 97.4 fL (80.0-100.0); Platelet Count 355 K/uL (130-400); RDW Standard Deviation 48.9 fL (36.4-46.3); Red Blood Count 2.33 M/uL (4.20-5.40); White Blood Count 11.14 K/ul (4.8-10.8)
[2025-05-05 20:25] LABS: Polychromasia 1+
[2025-05-05 20:26] LABS: Alanine Aminotransferase 30 U/L (7-52); Albumin Globulin Ratio 0.9 (0.9-2); Albumin Level 3.2 gm/dl (3.4-5.0); Alkaline Phosphatase 362 U/L (34-104); Anion Gap 9 (3-11); Bilirubin,Total 0.2 mg/dl (0.2-1.0); Blood Urea Nitrogen 61 mg/dl (6-23); Calcium 9.2 mg/dl (8.6-10.3); Carbon Dioxide 22 mmol/L (21-32); Chloride 108 mmol/L (98-107); Globulin 3.4 gm/dl (2.5-4.0); Glucose 109 mg/dl (70-99(Fasting)); Magnesium 1.8 mg/dl (1.7-2.4); Potassium 4.8 mmol/L (3.5-5.1); Sodium 139 mmol/L (136-145); Total Protein 6.6 gm/dl (6.0-8.3)
[2025-05-05] MEDS ORDERED: SODIUM CHLORIDE 0.9% 100 ML IV PRN ×2 (20:36→22:12)
[2025-05-05 20:43] LABS: INR 1.2 (0.9-1.1); Partial Thromboplastin Time 23 Seconds (21-31); Prothrombin Time 12.8 Seconds (9.0-12.0)
--- NOTE | 2025-05-05 20:53 | History & Physical Report ---
Date of Service May 05, 2025 Assessment & Plan (1) UGIB (upper gastrointestinal bleed): Plan: Assessment and plan below following discussion of case with ED provider and reviewing patient history/pertinent normal/abnormal diagnostic test results. UGIB History GERD/PUD Symptomatic anemia secondary to above ARF secondary to hypovolemia PAF, not on anticoagulation due to fall risk/anemia as per records) NSVT episode secondary to illness, history idiopathic cardiac arrest/VT valvular heart disease (moderate TR, mild MR) orthostatic hypotension on midodrine hypertension, currently stable hyperlipidemia on statin Rx asthma/COPD, at baseline CYNTHIA/narcolepsy on CPAP hx pancreas divisum hypothyroidism, euthyroid as of recent TSH Hyperglycemia likely prediabetes, hemoglobin A1c of 5.8 from March 2025 Admit to PCU given tachycardia IV Lopressor 1 dose now for NSVT transfuse PRBC to maintain hemoglobin of at least 7 (Patient specified that she usually receives Tylenol and Benadryl prior to blood product transfusion.) IV PPI GI consult re: UGIB N.p.o. in anticipation of procedure Baseline UA, monitor creatinine response to IVF DVT prophylaxis SCDs Re: GI bleed Full code Text document was generated using [employer] voice recognition software. It may contain grammatical or spelling errors. Kindly contact undersigned for clarification of any documentation item in question. ADDENDUM 05/06, 1 AM UA WBC esterase positive AP Complicated UTI Urine CS, Cefepime History of Present Illness Chief Complaint: Weakness, melena Primary Care Provider: Vicki Watson MD History obtained from patient and records. Medical history is significant for history idiopathic cardiac arrest/VT, valvular heart disease (moderate TR, mild MR), PAF (not on anticoagulation due to fall risk and anemia as per records), orthostatic hypotension on midodrine, hypertension, hyperlipidemia/statin intolerance, asthma/COPD, CYNTHIA/narcolepsy on CPAP, urolithiasis, hydronephrosis, celiac disease, PUD/GERD, irritable bowel syndrome, pancreas divisum, chronic anemia (baseline hemoglobin of 10-11), left adrenal tumor as per records, hypothyroidism, RLS, endometriosis/PCOS, hx MRSA. Monthly admissions since March 2025. Recent confinement last month for left-sided pyelonephritis status post stent placement. Patient not feeling well since yesterday. Dizziness described as lightheadedness. SOB worse on exertion. No headache. Melanotic stools with achy abdominal pain. Vaginal itching discomfort from yeast infection for which she is currently completing Diflucan course. Some nausea symptoms. Chronic cough symptoms. Denies OTC NSAID intake. Compliant with home medications. IV PPI and 2 units PRBC ordered at the ER for UGIB. NSVT episode during ER stay. MEDICAL HISTORY: As above. 2023 EGD showed diffuse gastritis/duodenal mucosal changes/celiac disease 2023 colonoscopy showed internal hemorrhoids SURGICAL HISTORY: TAHBSO, cholecystectomy, appendectomy, ankle surgery, knee surgery, nasal reconstruction, sinus surgery, finger tendon sheath surgery, urologic procedure, laminectomy/spine surgery FAMILY HISTORY: Family history of unknown. Patient is adopted. PERSONAL/SOCIAL HISTORY: Nonsmoker. No chronic intake of inatke of ETOH. 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 Allergies Allergy/AdvReac Type Severity Reaction Status Date / Time bee venom protein (honey bee) Allergy Severe ANAPHYLAXIS Verified 04/12/25 19:19 coconut Allergy Severe RASH; SOB Verified 04/12/25 19:19 gluten Allergy Severe CELIAC'S Verified 04/12/25 19:19 latex Allergy Severe Anaphylaxis Verified 04/12/25 19:19 Penicillins Allergy Severe Anaphylaxis Verified 04/12/25 19:19 Sulfa (Sulfonamide Allergy Severe Anaphylaxis Verified 04/12/25 19:19 Antibiotics) ROBER Inhibitors Allergy Intermediate RASH/TACHYC Verified 04/12/25 19:19 ARDIA cefaclor Allergy Intermediate CECLOR--RASH/UPSET Verified 04/12/25 19:19 STOMACH egg Allergy Intermediate RASH & Verified 04/12/25 19:19 Bloating Influenza Virus Vaccines Allergy Intermediate rash and Verified 04/12/25 19:19 bloating tetracycline Allergy Intermediate NAUSEA/VOMI Verified 04/12/25 19:19 TING/RASH Quinolones Allergy Unknown ALLERGY TO Verified 04/12/25 19:19 AVELOX ,CAN TAKE CIPRO OR LEVAQUIN W/O RXN Beta-Blockers AdvReac Intermediate intolerance Verified 04/12/25 19:19 (Beta-Adrenergic Bloc as per records lactose AdvReac Intermediate BLOATING; Verified 04/12/25 19:19 DIARRHEA; VOMITING Home Medications Medication Instructions Recorded Confirmed Type aspirin 81 mg tablet,delayed 81 mg PO QAM 09/14/24 05/05/25 History release atorvastatin 20 mg tablet 20 mg PO HS 09/14/24 05/05/25 History cimetidine 400 mg tablet 400 mg PO [facility] 09/14/24 05/05/25 History fexofenadine 180 mg tablet 180 mg PO QAM 09/14/24 05/05/25 History fluticasone 250 mcg-salmeterol 50 1 inh inhalation [facility] 09/14/24 05/05/25 History mcg/dose blistr powdr for inhalation (Advair Diskus) folic acid 1 mg tablet 2 mg PO [facility] 09/14/24 05/05/25 History hyoscyamine sulfate 0.375 mg 0.375 mg PO Q6H PRN Abdominal Pain 09/14/24 05/05/25 History tablet,extended release,12 hr ipratropium 20 mcg-albuterol 100 1 puff inhalation QID PRN 09/14/24 05/05/25 History mcg/actuation mist for inhalation Shortness Of Breath Or Wheezing (Combivent Respimat) levothyroxine 100 mcg capsule 100 mcg PO DAILYBB 09/14/24 05/05/25 History montelukast 10 mg tablet 10 mg PO HS 09/14/24 05/05/25 History multivitamin 1 tab PO [facility] 09/14/24 05/05/25 History rabeprazole 20 mg tablet,delayed 40 mg PO BID 09/14/24 05/05/25 History release (AcipHex) sucralfate 1 gram tablet [address] [facility] 09/14/24 05/05/25 History topiramate 100 mg tablet 100 mg PO BID 09/14/24 05/05/25 History CPAP Machine 09/15/24 05/05/25 History amitriptyline 75 mg tablet 75 mg PO HS 09/15/24 05/05/25 History azelastine 137 mcg (0.1 %) nasal 1 spray intranasal BID 09/15/24 05/05/25 History spray levalbuterol HCl 1.25 mg/3 mL 1.25 mg inhalation .Q4-6H PRN 09/15/24 05/05/25 History solution for nebulization Shortness Of Breath Or Wheezing ondansetron 4 mg disintegrating 4 mg PO Q8H PRN Nausea And Vomiting 09/15/24 05/05/25 History tablet polyethylene glycol 3350 17 gram 17 g PO QAM 09/15/24 05/05/25 History oral powder packet (Miralax) epinephrine 0.3 mg/0.3 mL 0.3 mg subcut UD PRN Anaphylaxis 03/11/25 05/05/25 History injection, auto-injector midodrine 5 mg tablet 5 mg PO TID #90 tabs 03/18/25 05/05/25 Rx metoprolol succinate 25 mg 37.5 mg (1.5 x 25 mg) PO BID #90 04/02/25 05/05/25 Rx tablet,extended release 24 hr tabs benzonatate 100 mg capsule 100 mg PO TID PRN Cough 05/05/25 05/05/25 History ergocalciferol (vitamin D2) 1,250 1,250 mcg PO WK 05/05/25 05/05/25 History mcg (50,000 unit) capsule fluconazole 200 mg tablet 200 mg PO QAM 05/05/25 05/05/25 History oxybutynin chloride 5 mg 5 mg PO QAM 05/05/25 05/05/25 History tablet,extended release 24 hr phenazopyridine 200 mg tablet 200 mg PO TID PRN as directed 05/05/25 05/05/25 History Past Med/Surg History Problem List (Updated 05/05/25 @ 22:53 by Burt Dawson MD) Symptomatic anemia (Acute) Dyspnea (Acute) UGIB (upper gastrointestinal bleed) (Acute) Hydroureteronephrosis (Acute) Acute pyelonephritis (Acute) Pyelonephritis Contraindication to anticoagulation therapy Hypotension Atrial fibrillation Elevated procalcitonin (Acute) Atrial fibrillation with rapid ventricular response (Acute) Generalized weakness (Acute) Rupture of kidney (Acute) LILLIANA (acute kidney injury) (Acute) Transaminitis (Acute) Sepsis (Acute) Atrial fibrillation with rapid ventricular response (Acute) Incontinence (Chronic) Adrenal nodule (Chronic) Renal cyst (Acute) Bilateral hydronephrosis (Chronic) Abdominal pain PSVT (paroxysmal supraventricular tachycardia) Elevated brain natriuretic peptide (BNP) level (Acute) Atrial tachycardia, paroxysmal Syncope (Acute) 01/2024 per records Dyspnea (Acute) Shortness of breath (Acute) PAF (paroxysmal atrial fibrillation) Sinus tachycardia (Acute) Palpitation (Acute) Hypokalemia Transaminitis Elevated LFTs (Acute) Encounter for pre-operative examination CYNTHIA (obstructive sleep apnea) (Chronic) Asthma, severe persistent (Chronic) Gastroparesis (Chronic) Celiac disease (Chronic) GERD (gastroesophageal reflux disease) (Chronic) IBS (irritable bowel syndrome) (Chronic) Hypothyroidism (Chronic) no current medication -- TSH normal without meds. CHARLES (iron deficiency anemia) (Chronic) ferrous sulfate QID. Dyslipidemia (Chronic) MRSA (methicillin resistant Staphylococcus aureus) (Chronic) 1999 dx nose septum wound 2019 dx in lungs Medical History Flank pain Acute UTI (urinary tract infection) Elevated troponin NSVT (nonsustained ventricular tachycardia) - hx of nonsustained VT (isolated run on Zio without associated symptoms per cardio); intolerance to beta blockers Renal cyst per medical record, pt unsure Depression Port-A-Cath in place Bilateral hydronephrosis Chronic kidney disease stage 3 or 4 - follows with [facility] Nephrology Sari huis Hx of gastric ulcer Chronic gastritis GERD (gastroesophageal reflux disease) Migraines Chronic nausea Seasonal allergies Hypothyroidism Paroxysmal A-fib - follows with Dr. Aguirre, takes asa daily (not anticoagulated due to anemia and fall risk per cardio records ) - patient referred at last cardio appt 10/2024 for evaluation for left appendage occluder device Celiac disease Hx of renal calculi no surgical intervention needed Poor intravenous access PSVT (paroxysmal supraventricular tachycardia) - no current issues per patient Hx MRSA infection 1999 dx nose septum wound 2019 dx in lungs Gastroparesis IBS (irritable bowel syndrome) Dyslipidemia CHARLES (iron deficiency anemia) History of COVID-19 has had ~5 times - last had ~early 2023, no hospitalization. Orthostatic hypotension Follows with [facility] cardiology On midodrine Chronic anemia frequent iron and blood transfusions. Hypertension hx --> pt reports she is being treated for hypotension Adrenal cyst monitoring unchanged per 2024 imaging; benign per PCP Chronic back pain Degenerative disc disease Osteoarthritis Anxiety Mitral valve prolapse follows with Dr Aguirre Narcolepsy Chronic obstructive pulmonary disease uncontrolled, uses inhalers daily Sleep apnea CPAP + 2lpm of oxygen Surgical History H/O insertion of central venous access port power port placed due to poor IV access + frequent blood draws/iron/blood transfusions S/P spinal fusion C1 through L3 or L4 (~2021 at [facility]) History of cardioversion ~2019 History of cardiac radiofrequency ablation ~2014 [facility] History of bronchoscopy in the S/P trigger finger release right hand History of ankle surgery bilateral ankle repair with hardware H/O hand surgery with hardware (left) S/P GLENNY-BSO S/P surgery on nasal septum "collapsed septum" s/p post op infection that "ate away the septum" S/P nasal surgery multiple Hx of cholecystectomy History of arthroscopic knee surgery left Hx of cardiac cath "2010 - normal coronaries" (pt denies) History of esophagogastroduodenoscopy (EGD) History of colonoscopy History of dilatation and curettage Family History Other No family history of adverse response to anesthesia Social History Smoking Status: Never smoker Second Hand Exposure: No; Do You Dip or Chew Tobacco: No; Tobacco Cessation Education Requested by Patient: No Hx Alcohol Use: No Hx Substance Use: No Preferred Language: Maori Communication Ability: Effective Senior Project Coordinator Required: No Beliefs That Will Affect Care: None marital status: Current Living Situation: Spouse Current Living Situation Comment: 4yr old twins at home Other Information That Helps Us Care for You: No Feels Safe at Home: Yes Safety Concerns: Feels Safe At This Time Assistive Devices: Glasses and Hospital Bed Review of Systems Review of Systems: As per HPI, all other systems reviewed and negative Physical Exam Physical Exam: GENERAL: Slightly uncomfortable, ill-appearing, no respiratory distress SKIN: Pallor, warm HEENT: Pale palpebral conjunctivae, no ptosis, dry buccal mucosa NECK : Supple, no tenderness CHEST : Decreased breath sounds, no tenderness HEART : Tachycardic, no obvious murmurs ABDOMEN: Some distention, minimal central abdominal tenderness EXTREMITIES : No LE swelling, no LE tenderness, no other conspicuous deformities noted NEUROLOGIC : Coherent, no facial asymmetry, no other gross focality Results & Data Results & Data Vital Signs (Past 12 Hours) Vital Signs Temp Pulse Resp BP Pulse Ox O2 Del Method 05/05/25 20:35 141 H 05/05/25 19:14 95 Room Air 05/05/25 19:07 125 H 05/05/25 19:04 Room Air 05/05/25 19:01 37.1 C 127 H 18 137/67 94 Room Air Laboratory Results Laboratory Results WBC 11.14 K/ul (4.8-10.8) H 05/05/25 19:56 RBC 2.33 M/uL (4.20-5.40) L 05/05/25 19:56 Hgb 7.0 g/dl (12.0-16.0) L 05/05/25 19:56 Hct 22.7 % (37.0-47.0) L 05/05/25 19:56 MCV 97.4 fL (80.0-100.0) 05/05/25 19:56 MCH 30.0 pg (25.0-34.0) 05/05/25 19:56 MCHC 30.8 g/dL (32.0-36.0) L 05/05/25 19:56 RDW Std Deviation 48.9 fL (36.4-46.3) H 05/05/25 19:56 RDW Coeff of Reginaldo 13.6 % (11.5-14.5) 05/05/25 19:56 Plt Count 355 K/uL (130-400) 05/05/25 19:56 MPV 9.3 fL (9.4-12.4) L 05/05/25 19:56 Immature Gran % (Auto) 0.4 % 05/05/25 19:56 Neut % (Auto) 75.9 % 05/05/25 19:56 Lymph % (Auto) 17.8 % 05/05/25 19:56 [place] % (Auto) 4.2 % 05/05/25 19:56 Eos % (Auto) 1.3 % 05/05/25 19:56 Baso % (Auto) 0.4 % 05/05/25 19:56 Neut # (Auto) 8.45 K/uL (1.40-6.50) H 05/05/25 19:56 Lymph # (Auto) 1.98 K/uL (1.20-3.40) 05/05/25 19:56 [place] # (Auto) 0.47 K/uL (0.11-0.59) 05/05/25 19:56 Eos # (Auto) 0.15 K/uL (0.00-0.50) 05/05/25 19:56 Baso # (Auto) 0.04 K/uL (0.00-0.20) 05/05/25 19:56 Immature Gran # (Auto) 0.05 K/uL (0.01-0.20) 05/05/25 19:56 Polychromasia 1+ 05/05/25 19:56 PT 12.8 Seconds (9.0-12.0) H 05/05/25 19:56 INR 1.2 (0.9-1.1) H 05/05/25 19:56 APTT 23 Seconds (21-31) 05/05/25 19:56 PTT Ratio 0.8 05/05/25 19:56 Sodium 139 mmol/L (136-145) 05/05/25 19:56 Potassium 4.8 mmol/L (3.5-5.1) 05/05/25 19:56 Chloride 108 mmol/L (98-107) H 05/05/25 19:56 Carbon Dioxide 22 mmol/L (21-32) 05/05/25 19:56 Anion Gap 9 (3-11) 05/05/25 19:56 BUN 61 mg/dl (6-23) H 05/05/25 19:56 Creatinine 1.28 mg/dl (0.6-1.2) H 05/05/25 19:56 Est Cr Clr Drug Dosing Not Reportable 05/05/25 19:56 eGFR 47.07 05/05/25 19:56 BUN/Creatinine Ratio 47.7 (10-20) H 05/05/25 19:56 Glucose 109 mg/dl (70-99(Fasting)) H 05/05/25 19:56 Calcium 9.2 mg/dl (8.6-10.3) 05/05/25 19:56 Phosphorus 2.9 mg/dl (2.5-4.9) 05/05/25 19:56 Magnesium 1.8 mg/dl (1.7-2.4) 05/05/25 19:56 Total Bilirubin 0.2 mg/dl (0.2-1.0) 05/05/25 19:56 AST 10 U/L (13-39) L 05/05/25 19:56 ALT 30 U/L (7-52) 05/05/25 19:56 Alkaline Phosphatase 362 U/L (34-104) H 05/05/25 19:56 Troponin I High Sens 10.1 pg/ml (0-14) 05/05/25 19:56 Total Protein 6.6 gm/dl (6.0-8.3) 05/05/25 19:56 Albumin 3.2 gm/dl (3.4-5.0) L 05/05/25 19:56 Globulin 3.4 gm/dl (2.5-4.0) 05/05/25 19:56 Albumin/Globulin Ratio 0.9 (0.9-2) 05/05/25 19:56 Impressions Chest X-Ray 05/05/25 19:14 Chest radiograph, one view History: Chest pain Comparison: 04/12/2025 Findings: Single AP view of the chest performed. No focal consolidation or pleural effusion. No pneumothorax. Right chest wall port with catheter tip in the SVC is on prior. The cardiomediastinal silhouette is within normal limits. Normal pulmonary vascularity. No evidence for lymphadenopathy. No visualized bony or soft tissue abnormality. There are a few chronic left rib deformities again seen. Impression: Normal chest radiograph Electronically signed by Lai Gimenez 05-05-2025 8:03 PM Diagnostic Findings EKG as per my interpretation :Rate 95, NSR, LAD, LAFB, T wave flattening septal leads
[2025-05-05] MEDS: MAGNESIUM SULFATE / D5W 1 GM/100 ML BAG IV SCH (20:57)
[2025-05-05] MEDS: METOPROLOL TARTRATE 1 MG/ML VIAL IV STA ×2 (21:00→21:04)
[2025-05-05] MEDS: Patient's HEIGHT &/or WEIGHT Needed STA (21:11)
[2025-05-05] MEDS: PANTOPRAZOLE BOLUS/DRIP IV STA (21:12)
[2025-05-05 21:33] LABS: Lipase 28 U/L (11-82)
[2025-05-05] MEDS: PANTOprazole 40 MG in DEXTROSE 5% MINI-B 100 ML IV SCH (22:05)
[2025-05-05] MEDS: SODIUM CHLORIDE 0.9% 1,000 ML IV ONE (22:11)
[2025-05-05] MEDS ORDERED: PHENAZOPYRIDINE HCL 200 MG TAB PO PRN (22:14)
[2025-05-05] MEDS ORDERED: BENZONATATE 100 MG CAPSULE PO PRN (22:14)
[2025-05-05] MEDS: AZELASTINE HCL 0.1% NASAL 200 SPRAYS/27,400 MCG BTL SCH (22:53)
[2025-05-05] MEDS: TOPIRAMATE 100 MG TAB PO SCH (22:53)
[2025-05-05] MEDS: AMITRIPTYLINE HCL 25 MG TAB PO SCH (22:53)
[2025-05-05] MEDS: MONTELUKAST SODIUM 10 MG TABLET PO SCH (22:53)
[2025-05-05] MEDS: ACETAMINOPHEN 325 MG TAB PO STA (23:00)
[2025-05-05] MEDS: diphenhydrAMINE Capsule 25 MG CAP PO ONE (23:00)
[2025-05-05] MEDS ORDERED: LEVALBUTEROL 1.25 MG/3 ML NEB NEB PRN (23:48)
[2025-05-05] MEDS ORDERED: IPRATROPIUM BROMIDE NEB SOLN 0.02% 0.5MG/2.5ML VIAL INH PRN (23:48)
[2025-05-06 00:31] LABS: Appearance Urine Turbid (Clear); Glucose Urine UA Negative (Negative)
[2025-05-06 00:32] LABS: Bacteria Urine Automated 2+ (None Seen); Epithelial Cell Urine Auto 0-2 /hpf (0-2); WBC Urine Automated >50 /hpf (0-5)
[2025-05-06] MEDS: CEFEPIME 2000MG 2,000 MG/20 ML SYR IV SCH (01:03)
--- NOTE | 2025-05-06 01:54 | CT Scan Report ---
Exam(s): CT ABDOMEN + PELVIS Without Contrast EXAM: CT Abdomen and Pelvis Without Intravenous Contrast CLINICAL HISTORY: abd pain, gi bleed. TECHNIQUE: Axial computed tomography images of the abdomen and pelvis without intravenous contrast. CTDI is 8.92 mGy and DLP is 438.4 mGy-cm. Automated exposure control was utilized for the study. A dose lowering technique was utilized adhering to the principles of ALARA. COMPARISON: CTA abdomen and pelvis with contrast dated 04/12/2025 FINDINGS: Lung bases: Unremarkable. No mass. No consolidation. ABDOMEN: Liver: Unremarkable. Gallbladder and bile ducts: Status post cholecystectomy. No ductal dilation. Pancreas: Unremarkable. No ductal dilation. Spleen: Unremarkable. No splenomegaly. Adrenals: The left adrenal lesion is again noted measuring 3.3 cm with Hounsfield units of -1, consistent with a lipid rich adenoma. Kidneys and ureters: Severe left hydronephrosis and moderately severe right hydronephrosis with bilateral double-J ureteral stents in position. These findings are similar to the previous examination. No definite new perinephric abnormality. Stomach and bowel: The stomach is predominantly decompressed with mild gas noted internally. No gastric mucosal thickening. No evidence for bowel obstruction. Evaluation of the bowel mucosa is slightly limited without contrast; however, no definite focal asymmetry suggested. Mild stool burden, primarily in the right colon. The left colon is decompressed. PELVIS: Appendix: A normal retrocecal appendix is noted in the right lower quadrant. Bladder: Unremarkable. No stones. Reproductive: Unremarkable as visualized. ABDOMEN and PELVIS: Intraperitoneal space: Unremarkable. No free air. No significant fluid collection. Bones/joints: No acute fracture. No dislocation. Soft tissues: No soft tissue abnormality. No hernia. Vasculature: Unremarkable. No abdominal aortic aneurysm. Lymph nodes: Unremarkable. No enlarged lymph nodes. Other findings: . IMPRESSION: 1. No evidence for bowel obstruction. Evaluation of the bowel mucosa is slightly limited without contrast; however, no definite focal asymmetry suggested. Mild stool burden, primarily in the right colon. The left colon is decompressed. No free intraperitoneal fluid or definite pneumoperitoneum. Incidental normal-caliber appendix. 2. Severe left hydronephrosis and moderately severe right hydronephrosis with bilateral double-J ureteral stents in position. These findings are similar to the previous examination. No definite new perinephric abnormality. Electronically signed by: Claudio Harrell MD 05/06/25 01:53 AM
[2025-05-06 07:21] LABS: Hematocrit (blood only) 26.7 % (37.0-47.0); Hemoglobin 8.6 g/dl (12.0-16.0); Immature Granulocytes # (auto) 0.05 K/uL (0.01-0.20); Immature Granulocytes % (auto) 0.6 %; Mean Corpuscular Hemoglobin 30.0 pg (25.0-34.0); Mean Corpuscular Volume 93.0 fL (80.0-100.0); Platelet Count 241 K/uL (130-400); RDW Standard Deviation 52.6 fL (36.4-46.3); Red Blood Count 2.87 M/uL (4.20-5.40); White Blood Count 8.36 K/ul (4.8-10.8)
[2025-05-06 07:48] LABS: Anion Gap 5.0 (3-11); Blood Urea Nitrogen 42.0 mg/dl (6-23); Calcium 8.6 mg/dl (8.6-10.3); Carbon Dioxide 22.0 mmol/L (21-32); Chloride 114.0 mmol/L (98-107); Creatinine Clr Calc Pharmacy 48.3 ml/min; Glucose 93.0 mg/dl (70-99(Fasting)); Potassium 4.2 mmol/L (3.5-5.1); Sodium 141.0 mmol/L (136-145)
--- NOTE | 2025-05-06 08:10 | Hospitalist Progress Note ---
<Statement entered by Chicho Salgado, DO - 05/06/25 12:59> I have seen and examined the patient and have discussed the case with the advance practice provider. I have reviewed the advanced practitioner's documentation, and I agree with, and take responsibility for that plan of care. No acute issues overnight. Feeling improved post transfusion. Reviewed GI consultation, concern for possible inflammation and ulceration due to untreated celiac disease Planning for EGD Care as outlined below I spent a total of 15 minutes coordinating, documenting, and providing care for this patient excluding time spent by another provider/QHP. Date of Service May 06, 2025 Assessment & Plan (1) UGIB (upper gastrointestinal bleed): (2) Chronic gastritis: (3) Acute blood loss anemia: (4) NSVT (nonsustained ventricular tachycardia): (5) Acute UTI (urinary tract infection): (6) CHARLES (iron deficiency anemia): (7) Paroxysmal A-fib: (8) Orthostatic hypotension: Plan 64 year old female with PMH significant for history idiopathic cardiac arrest/VT, valvular heart disease (moderate TR, mild MR), PAF (not on anticoagulation due to fall risk and anemia as per records), orthostatic hypotension on midodrine, hypertension, hyperlipidemia/statin intolerance, asthma/COPD, CYNTHIA/narcolepsy on CPAP, urolithiasis, hydronephrosis, celiac disease, PUD/GERD, irritable bowel syndrome, pancreas divisum, chronic anemia (baseline hemoglobin of 10-11), left adrenal tumor as per records, hypothyroidism, RLS, endometriosis/PCOS, hx MRSA, migraines who presented to the ED on 05/05/2025 with dizziness, SOB, and melanotic stools. Suspected UGIB History of gastritis ->per EGD May 2024 Patient presenting with dizziness and melanotic stools x5 episodes CTAP revealed no bowel obstruction, mild stool burden, no free fluid or definite pneumoperitoneum Continue protonix drip GI consulted and planning on EGD tomorrow NPO at midnight FOBT pending if patient has BM Acute blood loss anemia Initial Hgb 7.0 (previously 11.8 on 04/13/2025) Received 2 units PRBCs Hgb 8.6 this morning Recheck H&H tonight Transfuse <7.0-> tylenol and benadryl pre-treatment per patient NSVT History of idiopathic cardiac arrest/VT Run of vtach in ED-> received IV lopressor x1 EKG revealed NSR Monitor on telemetry UTI History of recurrent UTIs Multiple recent admissions with UTIs UA +leuk esterase, WBC, bacteria Urine culture pending Continue Cefepime for now History of ureteral stents s/p cystoscopy with bilateral retrograde pyelogram and stent placement, right ureteral dilation, left ureteroscopy and laser endopyelotomy on 03/08/[address] Williamson CTAP revealed severe left hydronephrosis and moderately severe right hydronephrosis with bilateral ureteral stents-> similar to previous study Patient urinating without difficulty History of CHARLES, folic acid deficiency anemia Celiac disease Follows with Hematology for CHARLES, folate deficiency, vit D deficiency in setting of Celiac disease Receives IV Venofer and blood transfusions outpatient Continue folic acid and vitamin D PAF Not on anticoagulation due to fall risk/anemia per records Continue metoprolol Orthostatic hypotension BP stable despite anemia Continue midodrine Hyperlipidemia Continue statin Hypothyroidism Continue levothyroxine COPD/asthma Continue inhalers and montelukast Migraines Continue topiramate and amitriptyline Vaginal candidiasis Continue fluconazole DVT Prophylaxis: SCDs due to procedure tomorrow Code Status: FULL CODE PCP: Vicki Garza Disposition: anticipate DC to home after EGD tomorrow Patient seen in collaboration with Dr. Salgado. Please see addendum. I spent a total of 50 minutes coordinating, documenting and providing care for this patient excluding time spent in the performance of separately billed services or time spent by another provider/QHP. Admission and Anticipated Discharge Date Admission Date: May 05, 2025 Subjective Patient seen resting in bed Reports mild abdominal pain No recurrence of melena since being in the hospital Notes she had five episodes of dark stools prior to admission Does not have much appetite Denies chest pain, SOB, N/V/D Review of Systems Review of Systems: All systems reviewed & are unremarkable except as noted in HPI & below Physical Exam Physical Exam: General/Psych: frail, sitting up in bed, NAD, conversing easily Head: normocephalic, atraumatic Eyes: normal inspection, PERRL, conjunctivae pink ENT: external ear and nose normal, oropharynx normal Neck: normal visual inspection, trachea midline Respiratory: normal respiratory effort, lungs clear to auscultation, no wheeze/rales/rhonchi, no accessory muscle use Cardiovascular: regular rate and rhythm, no murmur/rub/gallop Extremities: no cyanosis or clubbing, normal peripheral pulses, no BLE edema Abdomen/GI: normal bowel sounds, soft, slightly tender on palpation Neurologic/MSK: A+Ox3, motor strength 5/5, moves all extremities Skin: no rashes, normal color, warm and dry Results & Data Results & Data Vital Signs (Past 12 Hours) Vital Signs Temp Pulse Pulse Resp BP BP Pulse Ox 05/06/25 07:08 36.7 C 58 L 18 125/83 96 05/06/25 04:45 37 C 68 16 109/68 94 05/06/25 03:45 36.9 C 67 16 110/66 96 05/06/25 03:15 37.1 C 65 16 104/68 93 05/06/25 03:00 37.2 C 68 16 101/66 94 05/06/25 02:38 37.2 C 68 16 109/71 95 05/06/25 01:33 EDT 37.1 C 80 16 128/82 94 05/06/25 00:45 97 H 05/06/25 00:33 37.2 C 82 18 115/71 94 05/06/25 00:03 37.2 C 81 18 129/81 95 05/05/25 23:48 37 C 86 20 137/81 98 05/05/25 23:47 37 C 86 18 137/81 98 05/05/25 23:26 37 C 75 18 135/81 97 05/05/25 22:12 37.2 C 90 18 148/92 H 97 05/05/25 22:06 80 05/05/25 21:18 89 19 125/86 96 05/05/25 21:00 93 H 19 147/101 H 100 O2 Del Method 05/06/25 07:08 Room Air 05/06/25 04:45 05/06/25 03:45 05/06/25 03:15 05/06/25 03:00 05/06/25 02:38 05/06/25 01:33 EDT 05/06/25 00:45 05/06/25 00:33 05/06/25 00:03 05/05/25 23:48 05/05/25 23:47 05/05/25 23:26 05/05/25 22:12 Room Air 05/05/25 22:06 05/05/25 21:18 05/05/25 21:00 Laboratory Results Short CBC 05/05/25 05/06/25 Range/Units 19:56 06:52 WBC 11.14 H 8.36 (4.8-10.8) K/ul Hgb 7.0 L 8.6 L (12.0-16.0) g/dl Hct 22.7 L 26.7 L (37.0-47.0) % Plt Count 355 241 (130-400) K/uL BMP 05/05/25 05/06/25 19:56 06:52 Sodium 139 141 Potassium 4.8 4.2 Chloride 108 H 114 H Carbon Dioxide 22 22 BUN 61 H 42 H Creatinine 1.28 H 1.00 Glucose 109 H 93 Calcium 9.2 8.6 Liver Function 05/05/25 Range/Units 19:56 Total Bilirubin 0.2 (0.2-1.0) mg/dl AST 10 L (13-39) U/L ALT 30 (7-52) U/L Alkaline Phosphatase 362 H (34-104) U/L Albumin 3.2 L (3.4-5.0) gm/dl Urine 05/05/25 Range/Units Unknown Urine Color Dark Yellow Urine Appearance Turbid A (Clear) Urine pH 5.0 (4.5-7.5) Ur Specific Dyer 1.016 (1.000-1.030) Urine Protein 1+ H (Negative) Urine Glucose (UA) Negative (Negative) I have independently reviewed and interpreted patient's labs including CBC and BMP. Diagnostic Findings Chest X-Ray 05/05/25 19:14 Chest radiograph, one view History: Chest pain Comparison: 04/12/2025 Findings: Single AP view of the chest performed. No focal consolidation or pleural effusion. No pneumothorax. Right chest wall port with catheter tip in the SVC is on prior. The cardiomediastinal silhouette is within normal limits. Normal pulmonary vascularity. No evidence for lymphadenopathy. No visualized bony or soft tissue abnormality. There are a few chronic left rib deformities again seen. Impression: Normal chest radiograph Electronically signed by Lai Gimenez 05-05-2025 8:03 PM Abdomen/Pelvis CT 05/05/25 21:08 Exam(s): CT ABDOMEN + PELVIS Without Contrast EXAM: CT Abdomen and Pelvis Without Intravenous Contrast CLINICAL HISTORY: abd pain, gi bleed. TECHNIQUE: Axial computed tomography images of the abdomen and pelvis without intravenous contrast. CTDI is 8.92 mGy and DLP is 438.4 mGy-cm. Automated exposure control was utilized for the study. A dose lowering technique was utilized adhering to the principles of ALARA. COMPARISON: CTA abdomen and pelvis with contrast dated 04/12/2025 FINDINGS: Lung bases: Unremarkable. No mass. No consolidation. ABDOMEN: Liver: Unremarkable. Gallbladder and bile ducts: Status post cholecystectomy. No ductal dilation. Pancreas: Unremarkable. No ductal dilation. Spleen: Unremarkable. No splenomegaly. Adrenals: The left adrenal lesion is again noted measuring 3.3 cm with Hounsfield units of -1, consistent with a lipid rich adenoma. Kidneys and ureters: Severe left hydronephrosis and moderately severe right hydronephrosis with bilateral double-J ureteral stents in position. These findings are similar to the previous examination. No definite new perinephric abnormality. Stomach and bowel: The stomach is predominantly decompressed with mild gas noted internally. No gastric mucosal thickening. No evidence for bowel obstruction. Evaluation of the bowel mucosa is slightly limited without contrast; however, no definite focal asymmetry suggested. Mild stool burden, primarily in the right colon. The left colon is decompressed. PELVIS: Appendix: A normal retrocecal appendix is noted in the right lower quadrant. Bladder: Unremarkable. No stones. Reproductive: Unremarkable as visualized. ABDOMEN and PELVIS: Intraperitoneal space: Unremarkable. No free air. No significant fluid collection. Bones/joints: No acute fracture. No dislocation. Soft tissues: No soft tissue abnormality. No hernia. Vasculature: Unremarkable. No abdominal aortic aneurysm. Lymph nodes: Unremarkable. No enlarged lymph nodes. Other findings: . IMPRESSION: 1. No evidence for bowel obstruction. Evaluation of the bowel mucosa is slightly limited without contrast; however, no definite focal asymmetry suggested. Mild stool burden, primarily in the right colon. The left colon is decompressed. No free intraperitoneal fluid or definite pneumoperitoneum. Incidental normal-caliber appendix. 2. Severe left hydronephrosis and moderately severe right hydronephrosis with bilateral double-J ureteral stents in position. These findings are similar to the previous examination. No definite new perinephric abnormality. Electronically signed by: Claudio Harrell MD 05/06/25 01:53 AM
[2025-05-06] MEDS: MIDODRINE HCL 2.5 MG TAB PO SCH (08:13)
[2025-05-06] MEDS: SUCRALFATE 1 GM TAB PO SCH (08:13)
[2025-05-06] MEDS: FLUCONAZOLE 100 MG TAB PO SCH (08:13)
[2025-05-06] MEDS: FLUTICASONE/VILANTEROL 200/25MCG 14 PUFFS/INHALER INH SCH (08:13)
[2025-05-06] MEDS: FEXOFENADINE HCL 180 MG TAB PO SCH (08:13)
[2025-05-06] MEDS: FOLIC ACID 1 MG TAB PO SCH (08:13)
[2025-05-06] MEDS: METOPROLOL SUCC 25MG EXT REL TAB PO SCH (08:14)
[2025-05-06] MEDS: MULTIVITAMIN TAB PO SCH (08:14)
[2025-05-06] MEDS: OXYBUTYNIN CHLORIDE XL 5 MG TABCR PO SCH (08:14)
--- NOTE | 2025-05-06 09:38 | Gastrointestinal Consultation ---
Date of Consultation May 06, 2025 Assessment & Plan (1) Melena: Pleasant lady with likely UGI bleed with history of five episodes of melenic stools accompanied by aching abdominal discomfort. She really has no risk factors for ulcer disease as she doesn't take NSAIDs. She had an EGD a year ago that was unremarkable. She does need upper endoscopy to sort out her problems but she has seemed to have stopped bleeding so will do this under more controlled circumstances tomorrow. She has untreated celiac disease which could put her at risk for ulcerative jejunoileitis (although there is usually significant abdominal pain with that) and it could also put her at risk for small bowel malignancy. If EGD is negative I would get capsule endoscopy done as an outpatient. I talked with her about her nonchalance about her celiac and the importance of dietary adherence. She also needs to get her on board with this as well so she can be more compliant. History of Present Illness Reason for Consultation: melena Attending Physician: Chicho Salgado DO History of Present Illness 64 year old female who was in the hospital earlier in April for UTI and she currently has ureteral stents in place. She was doing okay until yesterday when her stomach started "aching" and the she passed black tarry stools. She had five of these black tarry stools but then has had no more since then. She does have a "history of ulcers" many years ago. She also carries the diagnosis of celiac disease but says she doesn't follow the diet because her isn't really supportive of it. She had an EGD and a colonoscopy last year by Dr. Rosa and she says he "didn't find anything" although there is mention of gastritis. She takes cimetidine (?) and carafate at home. Currently she says she feels back to normal. Allergies Allergy/AdvReac Type Severity Reaction Status Date / Time bee venom protein (honey bee) Allergy Severe ANAPHYLAXIS Verified 04/12/25 19:19 coconut Allergy Severe RASH; SOB Verified 04/12/25 19:19 gluten Allergy Severe CELIAC'S Verified 04/12/25 19:19 latex Allergy Severe Anaphylaxis Verified 04/12/25 19:19 Penicillins Allergy Severe Anaphylaxis Verified 04/12/25 19:19 Sulfa (Sulfonamide Allergy Severe Anaphylaxis Verified 04/12/25 19:19 Antibiotics) ROBER Inhibitors Allergy Intermediate RASH/TACHYC Verified 04/12/25 19:19 ARDIA cefaclor Allergy Intermediate CECLOR--RASH/UPSET Verified 04/12/25 19:19 STOMACH egg Allergy Intermediate RASH & Verified 04/12/25 19:19 Bloating Influenza Virus Vaccines Allergy Intermediate rash and Verified 04/12/25 19:19 bloating tetracycline Allergy Intermediate NAUSEA/VOMI Verified 04/12/25 19:19 TING/RASH Quinolones Allergy Unknown ALLERGY TO Verified 04/12/25 19:19 AVELOX ,CAN TAKE CIPRO OR LEVAQUIN W/O RXN Beta-Blockers AdvReac Intermediate intolerance Verified 04/12/25 19:19 (Beta-Adrenergic Bloc as per records lactose AdvReac Intermediate BLOATING; Verified 04/12/25 19:19 DIARRHEA; VOMITING Home Medications Medication Instructions Recorded Confirmed Type aspirin 81 mg tablet,delayed 81 mg PO QAM 09/14/24 05/05/25 History release atorvastatin 20 mg tablet 20 mg PO HS 09/14/24 05/05/25 History cimetidine 400 mg tablet 400 mg PO AMHS 09/14/24 05/05/25 History fexofenadine 180 mg tablet 180 mg PO QAM 09/14/24 05/05/25 History fluticasone 250 mcg-salmeterol 50 1 inh inhalation AMHS 09/14/24 05/05/25 History mcg/dose blistr powdr for inhalation (Advair Diskus) folic acid 1 mg tablet 2 mg PO AMHS 09/14/24 05/05/25 History hyoscyamine sulfate 0.375 mg 0.375 mg PO Q6H PRN Abdominal Pain 09/14/24 05/05/25 History tablet,extended release,12 hr ipratropium 20 mcg-albuterol 100 1 puff inhalation QID PRN 09/14/24 05/05/25 History mcg/actuation mist for inhalation Shortness Of Breath Or Wheezing (Combivent Respimat) levothyroxine 100 mcg capsule 100 mcg PO DAILYBB 09/14/24 05/05/25 History montelukast 10 mg tablet 10 mg PO HS 09/14/24 05/05/25 History multivitamin 1 tab PO QAM 09/14/24 05/05/25 History rabeprazole 20 mg tablet,delayed 40 mg PO BID 09/14/24 05/05/25 History release (AcipHex) sucralfate 1 gram tablet 1 g PO ACHS 09/14/24 05/05/25 History topiramate 100 mg tablet 100 mg PO BID 09/14/24 05/05/25 History CPAP Machine 09/15/24 05/05/25 History amitriptyline 75 mg tablet 75 mg PO HS 09/15/24 05/05/25 History azelastine 137 mcg (0.1 %) nasal 1 spray intranasal BID 09/15/24 05/05/25 History spray levalbuterol HCl 1.25 mg/3 mL 1.25 mg inhalation .Q4-6H PRN 09/15/24 05/05/25 History solution for nebulization Shortness Of Breath Or Wheezing ondansetron 4 mg disintegrating 4 mg PO Q8H PRN Nausea And Vomiting 09/15/24 05/05/25 History tablet polyethylene glycol 3350 17 gram 17 g PO QAM 09/15/24 05/05/25 History oral powder packet (Miralax) epinephrine 0.3 mg/0.3 mL 0.3 mg subcut UD PRN Anaphylaxis 03/11/25 05/05/25 History injection, auto-injector midodrine 5 mg tablet 5 mg PO TID #90 tabs 03/18/25 05/05/25 Rx metoprolol succinate 25 mg 37.5 mg (1.5 x 25 mg) PO BID #90 04/02/25 05/05/25 Rx tablet,extended release 24 hr tabs benzonatate 100 mg capsule 100 mg PO TID PRN Cough 05/05/25 05/05/25 History ergocalciferol (vitamin D2) 1,250 1,250 mcg PO WK 05/05/25 05/05/25 History mcg (50,000 unit) capsule fluconazole 200 mg tablet 200 mg PO QAM 05/05/25 05/05/25 History oxybutynin chloride 5 mg 5 mg PO QAM 05/05/25 05/05/25 History tablet,extended release 24 hr phenazopyridine 200 mg tablet 200 mg PO TID PRN as directed 05/05/25 05/05/25 History Patient History Medical History Flank pain Acute UTI (urinary tract infection) Elevated troponin NSVT (nonsustained ventricular tachycardia) - hx of nonsustained VT (isolated run on Zio without associated symptoms per cardio); intolerance to beta blockers Renal cyst per medical record, pt unsure Depression Port-A-Cath in place Bilateral hydronephrosis Chronic kidney disease stage 3 or 4 - follows with [facility] Nephrology Sari fish Hx of gastric ulcer Chronic gastritis GERD (gastroesophageal reflux disease) Migraines Chronic nausea Seasonal allergies Hypothyroidism Paroxysmal A-fib - follows with Dr. Aguirre, takes asa daily (not anticoagulated due to anemia and fall risk per cardio records ) - patient referred at last cardio appt 10/2024 for evaluation for left appendage occluder device Celiac disease Hx of renal calculi no surgical intervention needed Poor intravenous access PSVT (paroxysmal supraventricular tachycardia) - no current issues per patient Hx MRSA infection 1999 dx nose septum wound 2019 dx in lungs Gastroparesis IBS (irritable bowel syndrome) Dyslipidemia CHARELS (iron deficiency anemia) History of COVID-19 has had ~5 times - last had ~early 2023, no hospitalization. Orthostatic hypotension Follows with [facility] cardiology On midodrine Chronic anemia frequent iron and blood transfusions. Hypertension hx --> pt reports she is being treated for hypotension Adrenal cyst monitoring unchanged per 2024 imaging; benign per PCP Chronic back pain Degenerative disc disease Osteoarthritis Anxiety Mitral valve prolapse follows with Dr Aguirre Narcolepsy Chronic obstructive pulmonary disease uncontrolled, uses inhalers daily Sleep apnea CPAP + 2lpm of oxygen Surgical History H/O insertion of central venous access port power port placed due to poor IV access + frequent blood draws/iron/blood transfusions S/P spinal fusion C1 through L3 or L4 (~2021 at [facility]) History of cardioversion ~2019 History of cardiac radiofrequency ablation ~2014 [facility] [place] History of bronchoscopy in the S/P trigger finger release right hand History of ankle surgery bilateral ankle repair with hardware H/O hand surgery with hardware (left) S/P GLENNY-BSO S/P surgery on nasal septum "collapsed septum" s/p post op infection that "ate away the septum" S/P nasal surgery multiple Hx of cholecystectomy History of arthroscopic knee surgery left Hx of cardiac cath "2009 - normal coronaries" (pt denies) History of esophagogastroduodenoscopy (EGD) History of colonoscopy History of dilatation and curettage Family History Other No family history of adverse response to anesthesia Social History Smoking Status: Never smoker Second Hand Exposure: No; Do You Dip or Chew Tobacco: No; Tobacco Cessation Education Requested by Patient: No Hx Alcohol Use: No Hx Substance Use: No Preferred Language: Faroese Communication Ability: Effective Pattern Ruler Required: No Beliefs That Will Affect Care: None marital status: Current Living Situation: Spouse Current Living Situation Comment: 4yr old twins at home Other Information That Helps Us Care for You: No Feels Safe at Home: Yes Safety Concerns: Feels Safe At This Time Assistive Devices: Glasses and Hospital Bed Review of Systems Review of Systems: All systems reviewed & are unremarkable except as noted in HPI & below Physical Exam Physical Exam: Pleasant female in no distress Constitutional: WD/WN, vitals as above Neck: trachea midline, no thyromegaly Respiratory: normal respiratory effort, lungs clear to auscultation Cardiovascular: RRR, no murmur, no edema Gastrointestinal (Abdomen): normal bowel sounds, soft, nontender, no hepatosplenomegaly Results & Data Vital Signs (Past 12 Hours) Vital Signs Temp Pulse Pulse Resp BP BP Pulse Ox 05/06/25 07:54 05/06/25 07:08 36.7 C 58 L 18 125/83 96 05/06/25 04:45 37 C 68 16 109/68 94 05/06/25 03:45 36.9 C 67 16 110/66 96 05/06/25 03:15 37.1 C 65 16 104/68 93 05/06/25 03:00 37.2 C 68 16 101/66 94 05/06/25 02:38 37.2 C 68 16 109/71 95 05/06/25 01:33 EDT 37.1 C 80 16 128/82 94 05/06/25 00:45 97 H 05/06/25 00:33 37.2 C 82 18 115/71 94 05/06/25 00:03 37.2 C 81 18 129/81 95 05/05/25 23:48 37 C 86 20 137/81 98 05/05/25 23:47 37 C 86 18 137/81 98 05/05/25 23:26 37 C 75 18 135/81 97 O2 Del Method 05/06/25 07:54 Room Air 05/06/25 07:08 Room Air 05/06/25 04:45 05/06/25 03:45 05/06/25 03:15 05/06/25 03:00 05/06/25 02:38 05/06/25 01:33 EDT 05/06/25 00:45 05/06/25 00:33 05/06/25 00:03 05/05/25 23:48 05/05/25 23:47 05/05/25 23:26 Laboratory Results 05/06/25 05/05/25 05/05/25 Range/Units 06:52 Unknown 20:43 WBC 8.36 (4.8-10.8) K/ul RBC 2.87 L (4.20-5.40) M/uL Hgb 8.6 L (12.0-16.0) g/dl Hct 26.7 L (37.0-47.0) % MCV 93.0 (80.0-100.0) fL MCH 30.0 (25.0-34.0) pg MCHC 32.2 (32.0-36.0) g/dL RDW Std Deviation 52.6 H (36.4-46.3) fL RDW Coeff of Reginaldo 15.5 H (11.5-14.5) % Plt Count 241 (130-400) K/uL MPV 9.5 (9.4-12.4) fL Immature Gran % (Auto) 0.6 % Neut % (Auto) 70.5 % Lymph % (Auto) 18.1 % [place] % (Auto) 6.9 % Eos % (Auto) 3.5 % Baso % (Auto) 0.4 % Neut # (Auto) 5.90 (1.40-6.50) K/uL Lymph # (Auto) 1.51 (1.20-3.40) K/uL [place] # (Auto) 0.58 (0.11-0.59) K/uL Eos # (Auto) 0.29 (0.00-0.50) K/uL Baso # (Auto) 0.03 (0.00-0.20) K/uL Immature Gran # (Auto) 0.05 (0.01-0.20) K/uL Polychromasia PT (9.0-12.0) Seconds INR (0.9-1.1) APTT (21-31) Seconds PTT Ratio Sodium 141 (136-145) mmol/L Potassium 4.2 (3.5-5.1) mmol/L Chloride 114 H (98-107) mmol/L Carbon Dioxide 22 (21-32) mmol/L Anion Gap 5 (3-11) BUN 42 H (6-23) mg/dl Creatinine 1.00 (0.6-1.2) mg/dl Est Cr Clr Drug Dosing 48.3 eGFR 63.30 BUN/Creatinine Ratio 42.0 H (10-20) Glucose 93 (70-99(Fasting)) mg/dl Calcium 8.6 (8.6-10.3) mg/dl Phosphorus (2.5-4.9) mg/dl Magnesium (1.7-2.4) mg/dl Total Bilirubin (0.2-1.0) mg/dl AST (13-39) U/L ALT (7-52) U/L Alkaline Phosphatase (34-104) U/L Troponin I High Sens (0-14) pg/ml Total Protein (6.0-8.3) gm/dl Albumin (3.4-5.0) gm/dl Globulin (2.5-4.0) gm/dl Albumin/Globulin Ratio (0.9-2) Lipase (11-82) U/L Procalcitonin (0-0.5) ng/ml Urine Color Dark Yellow Urine Appearance Turbid A (Clear) Urine pH 5.0 (4.5-7.5) Ur Specific [place] 1.016 (1.000-1.030) Urine Protein 1+ H (Negative) Urine Glucose (UA) Negative (Negative) Urine Ketones Negative (Negative) Urine Blood 3+ H (Negative) Urine Nitrite Negative (Negative) Urine Bilirubin Negative (Negative) Urine Urobilinogen Negative (Negative) Ur Leukocyte Esterase 3+ H (Negative) Urine WBC (Auto) >50 H (0-5) /hpf Urine RBC (Auto) 6-10 H (0-2) /hpf U Hyaline Cast (Auto) 11-20 H (0-2) /lpf U Epithel Cells (Auto) 0-2 (0-2) /hpf Urine Bacteria (Auto) 2+ H (None Seen) Urine Mucus Present A (None Prsent) Urine Comment Blood Type A Positive Antibody Screen POSITIVE A Antibody Identification Anti-e Antibody ID Comment Pending Crossmatch See Detail 05/05/25 Range/Units 19:56 WBC 11.14 H (4.8-10.8) K/ul RBC 2.33 L (4.20-5.40) M/uL Hgb 7.0 L (12.0-16.0) g/dl Hct 22.7 L (37.0-47.0) % MCV 97.4 (80.0-100.0) fL MCH 30.0 (25.0-34.0) pg MCHC 30.8 L (32.0-36.0) g/dL RDW Std Deviation 48.9 H (36.4-46.3) fL RDW Coeff of Reginaldo 13.6 (11.5-14.5) % Plt Count 355 (130-400) K/uL MPV 9.3 L (9.4-12.4) fL Immature Gran % (Auto) 0.4 % Neut % (Auto) 75.9 % Lymph % (Auto) 17.8 % [place] % (Auto) 4.2 % Eos % (Auto) 1.3 % Baso % (Auto) 0.4 % Neut # (Auto) 8.45 H (1.40-6.50) K/uL Lymph # (Auto) 1.98 (1.20-3.40) K/uL [place] # (Auto) 0.47 (0.11-0.59) K/uL Eos # (Auto) 0.15 (0.00-0.50) K/uL Baso # (Auto) 0.04 (0.00-0.20) K/uL Immature Gran # (Auto) 0.05 (0.01-0.20) K/uL Polychromasia 1+ PT 12.8 H (9.0-12.0) Seconds INR 1.2 H (0.9-1.1) APTT 23 (21-31) Seconds PTT Ratio 0.8 Sodium 139 (136-145) mmol/L Potassium 4.8 (3.5-5.1) mmol/L Chloride 108 H (98-107) mmol/L Carbon Dioxide 22 (21-32) mmol/L Anion Gap 9 (3-11) BUN 61 H (6-23) mg/dl Creatinine 1.28 H (0.6-1.2) mg/dl Est Cr Clr Drug Dosing Not Reportable eGFR 47.07 BUN/Creatinine Ratio 47.7 H (10-20) Glucose 109 H (70-99(Fasting)) mg/dl Calcium 9.2 (8.6-10.3) mg/dl Phosphorus 2.9 (2.5-4.9) mg/dl Magnesium 1.8 (1.7-2.4) mg/dl Total Bilirubin 0.2 (0.2-1.0) mg/dl AST 10 L (13-39) U/L ALT 30 (7-52) U/L Alkaline Phosphatase 362 H (34-104) U/L Troponin I High Sens 10.1 (0-14) pg/ml Total Protein 6.6 (6.0-8.3) gm/dl Albumin 3.2 L (3.4-5.0) gm/dl Globulin 3.4 (2.5-4.0) gm/dl Albumin/Globulin Ratio 0.9 (0.9-2) Lipase 28 (11-82) U/L Procalcitonin 0.22 (0-0.5) ng/ml Urine Color Urine Appearance (Clear) Urine pH (4.5-7.5) Ur Specific [place] (1.000-1.030) Urine Protein (Negative) Urine Glucose (UA) (Negative) Urine Ketones (Negative) Urine Blood (Negative) Urine Nitrite (Negative) Urine Bilirubin (Negative) Urine Urobilinogen (Negative) Ur Leukocyte Esterase (Negative) Urine WBC (Auto) (0-5) /hpf Urine RBC (Auto) (0-2) /hpf U Hyaline Cast (Auto) (0-2) /lpf U Epithel Cells (Auto) (0-2) /hpf Urine Bacteria (Auto) (None Seen) Urine Mucus (None Prsent) Urine Comment Blood Type Antibody Screen Antibody Identification Antibody ID Comment Crossmatch Diagnostic Findings Chest X-Ray 05/05/25 19:14 Chest radiograph, one view History: Chest pain Comparison: 04/12/2025 Findings: Single AP view of the chest performed. No focal consolidation or pleural effusion. No pneumothorax. Right chest wall port with catheter tip in the SVC is on prior. The cardiomediastinal silhouette is within normal limits. Normal pulmonary vascularity. No evidence for lymphadenopathy. No visualized bony or soft tissue abnormality. There are a few chronic left rib deformities again seen. Impression: Normal chest radiograph Electronically signed by Lai Gimenez 05-05-2025 8:03 PM Abdomen/Pelvis CT 05/05/25 21:08 Exam(s): CT ABDOMEN + PELVIS Without Contrast EXAM: CT Abdomen and Pelvis Without Intravenous Contrast CLINICAL HISTORY: abd pain, gi bleed. TECHNIQUE: Axial computed tomography images of the abdomen and pelvis without intravenous contrast. CTDI is 8.92 mGy and DLP is 438.4 mGy-cm. Automated exposure control was utilized for the study. A dose lowering technique was utilized adhering to the principles of ALARA. COMPARISON: CTA abdomen and pelvis with contrast dated 04/12/2025 FINDINGS: Lung bases: Unremarkable. No mass. No consolidation. ABDOMEN: Liver: Unremarkable. Gallbladder and bile ducts: Status post cholecystectomy. No ductal dilation. Pancreas: Unremarkable. No ductal dilation. Spleen: Unremarkable. No splenomegaly. Adrenals: The left adrenal lesion is again noted measuring 3.3 cm with Hounsfield units of -1, consistent with a lipid rich adenoma. Kidneys and ureters: Severe left hydronephrosis and moderately severe right hydronephrosis with bilateral double-J ureteral stents in position. These findings are similar to the previous examination. No definite new perinephric abnormality. Stomach and bowel: The stomach is predominantly decompressed with mild gas noted internally. No gastric mucosal thickening. No evidence for bowel obstruction. Evaluation of the bowel mucosa is slightly limited without contrast; however, no definite focal asymmetry suggested. Mild stool burden, primarily in the right colon. The left colon is decompressed. PELVIS: Appendix: A normal retrocecal appendix is noted in the right lower quadrant. Bladder: Unremarkable. No stones. Reproductive: Unremarkable as visualized. ABDOMEN and PELVIS: Intraperitoneal space: Unremarkable. No free air. No significant fluid collection. Bones/joints: No acute fracture. No dislocation. Soft tissues: No soft tissue abnormality. No hernia. Vasculature: Unremarkable. No abdominal aortic aneurysm. Lymph nodes: Unremarkable. No enlarged lymph nodes. Other findings: . IMPRESSION: 1. No evidence for bowel obstruction. Evaluation of the bowel mucosa is slightly limited without contrast; however, no definite focal asymmetry suggested. Mild stool burden, primarily in the right colon. The left colon is decompressed. No free intraperitoneal fluid or definite pneumoperitoneum. Incidental normal-caliber appendix. 2. Severe left hydronephrosis and moderately severe right hydronephrosis with bilateral double-J ureteral stents in position. These findings are similar to the previous examination. No definite new perinephric abnormality. Electronically signed by: Claudio Harrell MD 05/06/25 01:53 AM
[2025-05-06] MEDS: ATORVASTATIN 20 MG TAB PO SCH (19:23)
[2025-05-06 19:59] LABS: Hematocrit (blood only) 27.3 % (37.0-47.0); Hemoglobin 8.7 g/dl (12.0-16.0)
--- NOTE | 2025-05-07 05:46 | Electrocardiogram Report ---
Test Reason : Blood Pressure : */* mmHG Vent. Rate : 110 BPM Atrial Rate : 110 BPM P-R Int : 136 ms QRS Dur : 70 ms QT Int : 320 ms P-R-T Axes : 50 -6 61 degrees QTcB Int : 433 ms Sinus tachycardia Otherwise normal ECG When compared with ECG of 12-Apr-2025 17:21, Vent. rate has increased by 51 bpm Confirmed by Vahid James ([id number]) on 05/07/2025 5:45:46 AM Referred By: REFERRED SELF Confirmed By: Vahid James
[2025-05-07 06:55] LABS: Hematocrit (blood only) 28.0 % (37.0-47.0); Hemoglobin 8.8 g/dl (12.0-16.0); Mean Corpuscular Hemoglobin 29.7 pg (25.0-34.0); Mean Corpuscular Volume 94.6 fL (80.0-100.0); Platelet Count 248 K/uL (130-400); RDW Standard Deviation 55.3 fL (36.4-46.3); Red Blood Count 2.96 M/uL (4.20-5.40); White Blood Count 9.83 K/ul (4.8-10.8)
[2025-05-07] MEDS: ACETAMINOPHEN 325 MG TAB PO PRN (07:27)
[2025-05-07 07:29] LABS: Anion Gap 6.0 (3-11); Blood Urea Nitrogen 26.0 mg/dl (6-23); Calcium 8.9 mg/dl (8.6-10.3); Carbon Dioxide 22.0 mmol/L (21-32); Chloride 113.0 mmol/L (98-107); Creatinine Clr Calc Pharmacy 44.7 ml/min; Glucose 105.0 mg/dl (70-99(Fasting)); Potassium 4.1 mmol/L (3.5-5.1); Sodium 141.0 mmol/L (136-145)
--- NOTE | 2025-05-07 07:59 | Hospitalist Progress Note ---
<Statement entered by Chicho Salgado DO - 05/07/25 14:21> I have seen and examined the patient and have discussed the case with the advance practice provider. I have reviewed the advanced practitioner's documentation, and I agree with, and take responsibility for that plan of care. Patient overall denies any specific complaints. No lightheadedness or dizziness Hemoglobin stable Planning EGD today Anticipate transition to oral PPI post EGD Continue to monitor hemoglobin as needed Plan of care as outlined below I spent a total of 14 minutes coordinating, documenting, and providing care for this patient excluding time spent by another provider/QHP. Date of Service May 07, 2025 Assessment & Plan (1) UGIB (upper gastrointestinal bleed): (2) Chronic gastritis: (3) Acute blood loss anemia: (4) NSVT (nonsustained ventricular tachycardia): (5) Acute UTI (urinary tract infection): (6) CHARLES (iron deficiency anemia): (7) Paroxysmal A-fib: (8) Orthostatic hypotension: Plan Patient is a 64y/o F with PMHx significant for valvular heart disease (moderate TR and mild MR), h/o idiopathic cardiac arrest/VT, PAF (not on anticoagulation due to fall risk and anemia as per records), orthostatic hypotension on midodrine, hypertension, hyperlipidemia with h/o statin intolerance, asthma/COPD, CYNTHIA/narcolepsy on CPAP, urolithiasis, hydronephrosis, celiac disease, PUD/GERD, irritable bowel syndrome, pancreas divisum, chronic anemia (baseline hemoglobin of 10-11), left adrenal tumor as per records, hypothyroidism, RLS, endometriosis/PCOS, h/o MRSA and migraines who presented to the ED on 05/05/25 with c/o dizziness, SOB and melanotic stools. Melena 2/2 suspected UGIB History of diffuse gastritis and celiac disease as per EGD completed 05/2024 P/w dizziness, SOB and melanotic stools x 5 episodes. EGD, 05/2024: normal esophagus, regular Z-line, diffuse gastritis (negative for H. pylori), duodenal mucosal changes c/f celiac dz (biopsy confirmed). CTAP revealed mild stool burden. No evidence of bowel obstruction, no free intraperitoneal fluid or definite pneumoperitoneum. Evaluated by GI >> planning for EGD today. Of note, untreated celiac disease could put her at risk for ulcerative jejunoileitis and small bowel malignancy. GI recommending capsule endoscopy as an Outpatient if EGD negative. Continue Protonix gtt for now. No BM yet since admission therefore FOBT has not yet been completed. Pt again educated on the importance of dietary adherence in setting of celiac disease. Acute blood loss anemia 2/2 above, s/p 2U PRBCs so far. Hgb improving, continue to monitor and transfuse PRN. -Transfuse if Hgb<7 >> Tylenol and Benadryl pre-treatment per patient. NSVT History of idiopathic cardiac arrest/VT Run of V. tach in ED s/p IV Lopressor x 1 w/o recurrence. EKG revealed NSR. Remains in sinus rhythm on telemetry. UTI History of recurrent UTIs Multiple recent admissions with UTI. UA with +LE, WBC and bacteria c/f UTI. Prior urine cx, 03/2025: pansensitive Acinetobacter junii. Will continue IV cefepime pending urine culture results. Vaginal candidiasis Continue fluconazole. History of ureteral stents S/p cystoscopy with bilateral retrograde pyelogram and stent placement, right ureteral dilation, left ureteroscopy and laser endopyelotomy on 03/08/[address] Williamson. CTAP revealed severe left hydronephrosis and moderately severe right hydronephrosis with bilateral ureteral stents >> similar to previous study. No evidence of definite new perinephric abnormality on CTAP and pt urinating w/o difficulty. History of CHARLES and folic acid deficiency anemia Follows with hematology for CHARLES, folate deficiency and vit D deficiency in setting of celiac disease. Receives IV Venofer and blood transfusions as an outpatient, has R chest port site. Continue folic acid and vitamin D supplementation. PAF Not on anticoagulation due to fall risk/anemia per records. Remains rate-controlled, continue BB. History of orthostatic hypotension BP stable despite anemia, continue midodrine. Other chronic medical conditions: HLD - Continue statin. Hypothyroidism - TSH WNL as of 03/2025, continue levothyroxine. COPD/Asthma - No s/sx of acute exacerbation, continue home inhalers and Singulair. Migraines - Continue topiramate, amitriptyline. DVT Prophylaxis: SCDs/TEDs only in light of above. Code Status: FULL CODE PCP: Vicki Watson MD Disposition: Possible DC home today s/p EGD vs DC tomorrow if pt tolerating diet fine, appreciate GI recs for f/u. Patient seen in collaboration with Dr. Salgado. Please see addendum. I spent a total of 48 minutes coordinating, documenting, and providing care for this patient excluding time spent in the performance of separately billed services or time spent by another provider/QHP. This included personally reviewing all current laboratories and imaging studies, medical reconciliation, outpatient chart review and discussion with specialists. This chart was completed in part utilizing Speech Voice Recognition Software. Grammatical errors, random word insertions, pronoun errors, and incomplete sentences are an occasional consequence of this system due to software limitations, ambient noise, and hardware issues. Any formal questions or concerns about the content, text, or information contained within the body of this dictation should be directly addressed to the provider for clarification. Admission and Anticipated Discharge Date Admission Date: May 05, 2025 Subjective Patient seen and examined in room 229-2. Scheduled for EGD today. No BM yet since admission. Reports mild lower abdominal pain, similar to yesterday. Denies any N/V. Review of Systems Review of Systems: At least ten systems reviewed and negative, except as noted in the subjective section. Physical Exam Physical Exam: General/Psych: frail, laying down in bed, NAD, conversing easily Head: normocephalic, atraumatic Eyes: normal inspection, PERRL, conjunctivae pink ENT: external ear and nose normal, oropharynx normal Neck: normal visual inspection, trachea midline Respiratory: normal respiratory effort, CTAB, no wheeze/rales/rhonchi, no accessory muscle use Cardiovascular: bradycardic rate, regular rhythm, no murmur/rub/gallop Extremities: no cyanosis or clubbing, normal peripheral pulses, no BLE edema Abdomen/GI: normal bowel sounds, soft, slightly tender on palpation Neurologic/MSK: A+Ox3, motor strength 5/5, moves all extremities Skin: no rashes, normal color, warm and dry, + R chest wall port Results & Data Results & Data Vital Signs (Past 12 Hours) Vital Signs Temp Pulse Pulse Resp BP Pulse Ox O2 Del Method 05/07/25 07:47 36.7 C 57 L 18 118/73 98 Room Air 05/07/25 04:31 36.5 C 58 L 17 103/64 96 Room Air 05/07/25 00:00 36.7 C 17 L 59 H 122/74 96 Room Air 05/06/25 22:40 65 Laboratory Results Short CBC 05/06/25 05/07/25 Range/Units 19:45 06:16 WBC 9.83 (4.8-10.8) K/ul Hgb 8.7 L 8.8 L (12.0-16.0) g/dl Hct 27.3 L 28.0 L (37.0-47.0) % Plt Count 248 (130-400) K/uL BMP 05/07/25 06:16 Sodium 141 Potassium 4.1 Chloride 113 H Carbon Dioxide 22 BUN 26 H Creatinine 1.08 Glucose 105 H Calcium 8.9
--- NOTE | 2025-05-07 11:03 | History & Physical Bridge Note ---
Date of Service May 07, 2025 History & Physical Bridge Note I have examined the patient, reviewed the History & Physical and in the interval since the performance of the History & Physical I have noted the following changes of clinical significance: no changes noted. Patient is a 64 year old female admitted with complaints of melena and abdominal discomfort in the setting of untreated celiac disease. hgb stable at 8.8. - she is planned for EGD for today for further evaluation. Supervising Physician Co-Signing Physician Notes I saw and examined this patient with our nurse practitioner and agree with her assessment and plan. History of melena hemoglobin 8.8. Will proceed with endoscopy today if for further evaluation.
--- NOTE | 2025-05-07 14:38 | Anesthesiology Consultation ---
Date of Service May 07, 2025 Assessment & Plan Chart Review Chart Review: Acceptable Risk for Surgery Consults Requested none History Surgery Operation Date: 05/07/25 17:30 Proposed Procedures p Esophagogastroduodenoscopy Dr. Kinga Donato MD Height/Weight Height: 5 ft 5 in Weight: 49.442 kg Allergies Allergy/AdvReac Type Severity Reaction Status Date / Time bee venom protein (honey bee) Allergy Severe ANAPHYLAXIS Verified 05/07/25 13:58 coconut Allergy Severe RASH; SOB Verified 05/07/25 13:58 gluten Allergy Severe CELIAC'S Verified 05/07/25 13:58 latex Allergy Severe Anaphylaxis Verified 05/07/25 13:58 Penicillins Allergy Severe Anaphylaxis Verified 05/07/25 13:58 Sulfa (Sulfonamide Allergy Severe Anaphylaxis Verified 05/07/25 13:58 Antibiotics) ROBER Inhibitors Allergy Intermediate RASH/TACHYC Verified 05/07/25 13:58 ARDIA cefaclor Allergy Intermediate CECLOR--RASH/UPSET Verified 05/07/25 13:58 STOMACH egg Allergy Intermediate RASH & Verified 05/07/25 13:58 Bloating Influenza Virus Vaccines Allergy Intermediate rash and Verified 05/07/25 13:58 bloating tetracycline Allergy Intermediate NAUSEA/VOMI Verified 05/07/25 13:58 TING/RASH Quinolones Allergy Unknown ALLERGY TO Verified 05/07/25 13:58 AVELOX ,CAN TAKE CIPRO OR LEVAQUIN W/O RXN Beta-Blockers AdvReac Intermediate intolerance Verified 05/07/25 13:58 (Beta-Adrenergic Bloc as per records lactose AdvReac Intermediate BLOATING; Verified 05/07/25 13:58 DIARRHEA; VOMITING Medications Home Medications Medication Instructions Recorded Confirmed Last Taken aspirin 81 mg tablet,delayed 81 mg PO [facility] 09/14/24 05/05/25 05/05/25 release atorvastatin 20 mg tablet 20 mg PO 09/14/24 05/05/25 05/04/25 cimetidine 400 mg tablet 400 mg PO [facility] 09/14/24 05/05/25 05/05/25 am fexofenadine 180 mg tablet 180 mg PO [facility] 09/14/24 05/05/25 05/05/25 fluticasone 250 mcg-salmeterol 50 1 inh inhalation [facility] 03/13/25 11/01/25 11/01/25 mcg/dose blistr powdr for am inhalation (Advair Diskus) folic acid 1 mg tablet 2 mg PO [facility] 09/14/24 05/05/25 05/05/25 am hyoscyamine sulfate 0.375 mg 0.375 mg PO Q6H PRN Abdominal Pain 09/14/24 05/05/25 Unknown tablet,extended release,12 hr ipratropium 20 mcg-albuterol 100 1 puff inhalation QID PRN 09/14/24 05/05/25 03/07/25 12:00 mcg/actuation mist for inhalation Shortness Of Breath Or Wheezing (Combivent Respimat) levothyroxine 100 mcg capsule 100 mcg PO DAILYBB 09/14/24 05/05/25 05/05/25 montelukast 10 mg tablet 10 mg PO HS 09/14/24 05/05/25 05/04/25 multivitamin 1 tab PO QAM 09/14/24 05/05/25 05/05/25 rabeprazole 20 mg tablet,delayed 40 mg PO BID 09/14/24 05/05/25 05/05/25 release (AcipHex) am sucralfate 1 gram tablet 1 g PO ACHS 09/14/24 05/05/25 05/05/25 topiramate 100 mg tablet 100 mg PO BID 09/14/24 05/05/25 05/05/25 am CPAP Machine 09/15/24 05/05/25 Unknown amitriptyline 75 mg tablet 75 mg PO HS 09/15/24 05/05/25 05/04/25 azelastine 137 mcg (0.1 %) nasal 1 spray intranasal BID 09/15/24 05/05/25 05/05/25 spray am levalbuterol HCl 1.25 mg/3 mL 1.25 mg inhalation .Q4-6H PRN 09/15/24 05/05/25 03/27/25 solution for nebulization Shortness Of Breath Or Wheezing ondansetron 4 mg disintegrating 4 mg PO Q8H PRN Nausea And Vomiting 09/15/24 05/05/25 03/07/25 08:00 tablet polyethylene glycol 3350 17 gram 17 g PO QAM 09/15/24 05/05/25 05/05/25 oral powder packet (Miralax) epinephrine 0.3 mg/0.3 mL 0.3 mg subcut UD PRN Anaphylaxis 03/11/25 05/05/25 Unknown injection, auto-injector midodrine 5 mg tablet 5 mg PO TID #90 tabs 03/18/25 05/05/25 05/05/25 metoprolol succinate 25 mg 37.5 mg (1.5 x 25 mg) PO BID #90 04/02/25 05/05/25 05/05/25 tablet,extended release 24 hr tabs am benzonatate 100 mg capsule 100 mg PO TID PRN Cough 05/05/25 05/05/25 Unknown ergocalciferol (vitamin D2) 1,250 1,250 mcg PO WK 05/05/25 05/05/25 04/30/25 mcg (50,000 unit) capsule fluconazole 200 mg tablet 200 mg PO QAM 05/05/25 05/05/25 05/05/25 oxybutynin chloride 5 mg 5 mg PO QAM 05/05/25 05/05/25 05/05/25 tablet,extended release 24 hr phenazopyridine 200 mg tablet 200 mg PO TID PRN as directed 05/05/25 05/05/25 Unknown Active Medications Generic Name Dose Route Start Last Admin Trade Name Freq PRN Reason Stop Dose Admin Acetaminophen 650 mg 05/05/25 21:09 05/07/25 07:27 Acetaminophen 325 Mg Tab PO 06/04/25 21:08 650 mg QID PRN Administration pain/fever Amitriptyline HCl 75 mg 05/05/25 22:15 05/06/25 19:23 Amitriptyline Hcl 25 Mg Tab PO 06/04/25 22:14 75 mg HS JAYSHREE Administration Atorvastatin Calcium 20 mg 05/06/25 21:00 05/06/25 19:23 Atorvastatin 20 Mg Tab PO 06/05/25 20:59 20 mg HS JAYSHREE Administration Azelastine HCl 1 sprays 05/05/25 22:15 05/07/25 08:55 Azelastine Hcl 0.1% Nasal 200 Sprays/27,400 Mcg Btl NA 06/04/25 22:14 1 sprays BID JAYSHREE Administration Fexofenadine HCl 180 mg 05/06/25 09:00 05/07/25 08:54 Fexofenadine Hcl 180 Mg Tab PO 06/05/25 08:59 180 mg QAM JAYSHREE Administration Fluconazole 200 mg 05/06/25 09:00 05/07/25 08:55 Fluconazole 100 Mg Tab PO 05/10/25 08:59 200 mg QAM JAYSHREE Administration Fluticasone/Vilanterol 1 puffs 05/06/25 09:00 05/07/25 08:54 Fluticasone/Vilanterol 200/25mcg 14 Puffs/Inhaler INH 06/05/25 08:59 1 puffs DAILY JAYSHREE Administration Folic Acid 2 mg 05/06/25 09:00 05/07/25 08:54 Folic Acid 1 Mg Tab PO 06/05/25 08:59 2 mg AMHS JAYSHREE Administration Pantoprazole Sodium 40 mg/ 100 mls @ 20 mls/hr 05/05/25 21:00 05/07/25 13:08 Dextrose IV 06/04/25 20:59 8 mg/hr Q5H JAYSHREE 20 mls/hr Administration 8 MG/HR Cefepime HCl 2,000 mg in 20 mls @ 5 mls/min 05/06/25 01:00 EST 05/07/25 13:08 Maxipime 2000mg IV 05/16/25 00:59 5 mls/min Q12H JAYSHREE Administration Protocol Metoprolol Succinate 37.5 mg 05/06/25 09:00 05/07/25 08:53 Metoprolol Succ 25mg Ext Rel Tab PO 06/05/25 08:59 37.5 mg BID JAYSHREE Administration Midodrine 5 mg 05/06/25 08:00 05/07/25 12:47 Midodrine Hcl 2.5 Mg Tab PO 06/05/25 07:59 Not Given TID@0800,1200,1700 [facility] Miscellaneous 1 each 05/06/25 00:00 05/07/25 07:23 Tirosint--Order Awaiting Action N/A 06/05/25 00:00 Not Given QS JAYSHREE Montelukast Sodium 10 mg 05/05/25 22:20 05/06/25 19:23 Montelukast Sodium 10 Mg Tablet PO 06/04/25 22:19 10 mg HS JAYSHREE Administration Multivitamins 1 tab 05/06/25 09:00 05/07/25 08:54 Multivitamin Tab PO 06/05/25 08:59 1 tab QAM JAYSHREE Administration Oxybutynin Chloride 5 mg 05/06/25 09:00 05/07/25 08:53 Oxybutynin Chloride Xl 5 Mg Tabcr PO 06/05/25 08:59 5 mg QAM JAYSHREE Administration Oxycodone HCl 5 mg 05/05/25 21:09 05/07/25 07:27 Oxycodone Hcl Ir 5 Mg Tab (Immediate Release) PO 05/19/25 21:08 5 mg Q4H PRN Administration Pain Sucralfate 1 gm 05/06/25 07:30 05/07/25 12:47 Sucralfate 1 Gm Tab PO 06/05/25 07:29 Not Given ACHS JAYSHREE Topiramate 100 mg 05/05/25 22:30 05/07/25 08:54 Topiramate 100 Mg Tab PO 06/04/25 22:29 100 mg BID JAYSHREE Administration NPO Date Last Intake of Fluids: 05/07/25 Time Last Intake of Fluids: 09:00 Last Intake of Fluids Comment: sip with pills Date Last Intake of Solids: 05/06/25 Time Last Intake of Solids: 17:00 Past Medical History Medical History Flank pain Acute UTI (urinary tract infection) Elevated troponin NSVT (nonsustained ventricular tachycardia) - hx of nonsustained VT (isolated run on Zio without associated symptoms per cardio); intolerance to beta blockers Renal cyst per medical record, pt unsure Depression Port-A-Cath in place Bilateral hydronephrosis Chronic kidney disease stage 3 or 4 - follows with [facility] Nephrology Sari huis Hx of gastric ulcer Chronic gastritis GERD (gastroesophageal reflux disease) Migraines Chronic nausea Seasonal allergies Hypothyroidism Paroxysmal A-fib - follows with Dr. Aguirre, takes asa daily (not anticoagulated due to anemia and fall risk per cardio records ) - patient referred at last cardio appt 10/2024 for evaluation for left appendage occluder device Celiac disease Hx of renal calculi no surgical intervention needed Poor intravenous access PSVT (paroxysmal supraventricular tachycardia) - no current issues per patient Hx MRSA infection 1999 dx nose septum wound 2019 dx in lungs Gastroparesis IBS (irritable bowel syndrome) Dyslipidemia CHARLES (iron deficiency anemia) History of COVID-19 has had ~5 times - last had ~early 2023, no hospitalization. Orthostatic hypotension Follows with [facility] cardiology On midodrine Chronic anemia frequent iron and blood transfusions. Hypertension hx --> pt reports she is being treated for hypotension Adrenal cyst monitoring unchanged per 2024 imaging; benign per PCP Chronic back pain Degenerative disc disease Osteoarthritis Anxiety Mitral valve prolapse follows with Dr Aguirre Narcolepsy Chronic obstructive pulmonary disease uncontrolled, uses inhalers daily Sleep apnea CPAP + 2lpm of oxygen Past Family History Family History Other No family history of adverse response to anesthesia Past Surgical History Surgical History H/O insertion of central venous access port power port placed due to poor IV access + frequent blood draws/iron/blood transfusions S/P spinal fusion C1 through L3 or L4 (~2021 at [facility]) History of cardioversion ~2019 History of cardiac radiofrequency ablation ~2014 [facility] History of bronchoscopy in the S/P trigger finger release right hand History of ankle surgery bilateral ankle repair with hardware H/O hand surgery with hardware (left) S/P GLENNY-BSO S/P surgery on nasal septum "collapsed septum" s/p post op infection that "ate away the septum" S/P nasal surgery multiple Hx of cholecystectomy History of arthroscopic knee surgery left Hx of cardiac cath "2009 - normal coronaries" (pt denies) History of esophagogastroduodenoscopy (EGD) History of colonoscopy History of dilatation and curettage Social History Smoking Status: Never smoker Do You Dip or Chew Tobacco: No Hx Alcohol Use: No Hx Substance Use: No substance use type: does not use Physical Exam Vital Signs Last Vital Signs Temp 36.3 C L 05/07/25 13:59 Pulse 64 05/07/25 13:59 Resp 16 05/07/25 13:59 BP 129/77 05/07/25 13:59 Pulse Ox 95 05/07/25 13:59 O2 Del Method Room Air 05/07/25 13:59 Testing Laboratory Results 05/07/25 06:16 05/07/25 06:16 PT 12.8 Seconds (9.0-12.0) H 05/05/25 19:56 INR 1.2 (0.9-1.1) H 05/05/25 19:56 APTT 23 Seconds (21-31) 05/05/25 19:56 Urine Color Dark Yellow 05/05/25 Unknown Urine Appearance Turbid (Clear) A 05/05/25 Unknown Urine pH 5.0 (4.5-7.5) 05/05/25 Unknown Ur Specific [place] 1.016 (1.000-1.030) 05/05/25 Unknown Urine Protein 1+ (Negative) H 05/05/25 Unknown Urine Glucose (UA) Negative (Negative) 05/05/25 Unknown Urine Ketones Negative (Negative) 05/05/25 Unknown Urine Nitrite Negative (Negative) 05/05/25 Unknown Ur Leukocyte Esterase 3+ (Negative) H 05/05/25 Unknown Urine WBC (Auto) >50 /hpf (0-5) H 05/05/25 Unknown Urine RBC (Auto) 6-10 /hpf (0-2) H 05/05/25 Unknown U Hyaline Cast (Auto) 11-20 /lpf (0-2) H 05/05/25 Unknown U Epithel Cells (Auto) 0-2 /hpf (0-2) 05/05/25 Unknown Urine Bacteria (Auto) 2+ (None Seen) H 05/05/25 Unknown Blood Type A Positive 05/05/25 20:43 Antibody Screen POSITIVE A 05/05/25 20:43 05/05/25 Unknown Urine Culture - Preliminary Urine,Clean Catch Lactobacillus gasseri
--- NOTE | 2025-05-07 15:26 | GI REPORT ---
[facility] Patient: SHAYY CARRILLO : 1960 Sex at : Female Age: 64 Years Procedure: Upper GI endoscopy Date: 05/07/2025 Attending Physician: Peter Donato MD Referring MD: Chicho Salgado DO Indications: - Suspected upper gastrointestinal bleeding Medications: - Monitored Anesthesia Care Complications: - No immediate complications. Procedure: - Prior to the procedure, a History and Physical was performed, and patient medications and allergies were reviewed. The patient's tolerance of previous anesthesia was also reviewed. The risks and benefits of the procedure and the sedation options and risks were discussed with the patient. All questions were answered, and informed consent was obtained. [Anticoagulant Agents] [Days Prior to Procedure]. [ASA Grade]. After reviewing the risks and benefits, the patient was deemed in satisfactory condition to undergo the procedure. - The egd scope was introduced through the mouth and advanced to the second part of the duodenum. - The upper GI endoscopy was accomplished without difficulty. - The patient tolerated the procedure well. Findings: - The examined esophagus was normal. - Diffuse moderate inflammation characterized by erythema and congestion (edema) was found in the entire examined stomach. Biopsies were taken with a cold forceps for Helicobacter pylori testing. - Three non-bleeding cratered duodenal ulcers with a clean ulcer base (Lopez Class III) were found in the first portion of the duodenum and in the second portion of the duodenum. The largest lesion was 12 mm in largest dimension. - Scalloped mucosa was found in the bulb and second portion of the duodenum. Biopsies for histology were taken with a cold forceps for evaluation of celiac disease. Impression: - Normal esophagus. - Gastritis, characterized by erythema and congestion (edema). Biopsied. - Non-bleeding duodenal ulcers with a clean ulcer base (Lopez Class III). - Duodenal mucosal changes seen, consistent with celiac disease. Biopsied. Recommendation: - Resume previous diet. - Patient has a contact number available for emergencies. The signs and symptoms of potential delayed complications were discussed with the patient. Return to normal activities tomorrow. Written discharge instructions were provided to the patient. Procedure Code(s): - 28412, Esophagogastroduodenoscopy, flexible, transoral; with biopsy, single or multiple Diagnosis Code(s): - K29.70, Gastritis, unspecified, without bleeding - K26.9, Duodenal ulcer, unspecified as acute or chronic, without hemorrhage or perforation - K31.89, Other diseases of stomach and duodenum CPT(R) - 2023 copyright [employer]. All Rights Reserved. The CPT codes, CCI edits and ICD codes generated are intended as suggestions and were generated based on input data. These codes are preliminary and upon fabric worker review may be revised to meet current compliance and payer requirements. The provider is responsible for the final determination of appropriate codes, and modifiers. Peter Donato MD This document has been electronically signed. Note Initiated:05/07/2025 Note Completed:05/07/2025 3:26 PM [id number]
--- NOTE | 2025-05-07 15:41 | Anesthesiology Progress Note ---
Date of Service May 07, 2025 Anesthesia Post Procedure Vital Signs Vital Signs: Temp Pulse Pulse Resp BP Pulse Ox O2 Del Method 05/07/25 15:30 75 16 135/84 96 Room Air 05/07/25 13:59 36.3 C L 64 16 129/77 95 Room Air 05/07/25 13:00 48 L 05/07/25 11:05 37.1 C 50 L 14 106/64 95 Room Air 05/07/25 08:00 Room Air 05/07/25 07:47 36.7 C 57 L 18 118/73 98 Room Air 05/07/25 05:36 56 L 05/07/25 04:31 36.5 C 58 L 17 103/64 96 Room Air 05/07/25 00:00 36.7 C 17 L 59 H 122/74 96 Room Air 05/06/25 22:40 65 05/06/25 19:57 36.7 C 66 17 125/76 93 Room Air Pain Intensity Abdomen: Pain Intensity: 2 Transfer of Care Handoff Completed per policy Notes Mental Status: alert / awake / arousable and participated in evaluation Patient Amnestic to Procedure: Yes Nausea / Vomiting: adequately controlled Pain: adequately controlled Airway Patency, RR, SpO2: stable & adequate BP & HR: stable & adequate Hydration State: stable & adequate Anesthetic Complications: no major complications apparent
[2025-05-07] MEDS: LIDOCAINE 2% 2 ML VIAL/AMP(20MG/ML) INFIL ONE (16:21)
[2025-05-07] MEDS: PROPOFOL IV EMULSION 10 MG/ML 20 ML VIAL IV ONE (16:22)
[2025-05-08 06:12] LABS: Hematocrit (blood only) 27.0 % (37.0-47.0); Hemoglobin 8.5 g/dl (12.0-16.0); Mean Corpuscular Hemoglobin 30.1 pg (25.0-34.0); Mean Corpuscular Volume 95.7 fL (80.0-100.0); Platelet Count 245 K/uL (130-400); RDW Standard Deviation 54.0 fL (36.4-46.3); Red Blood Count 2.82 M/uL (4.20-5.40); White Blood Count 8.66 K/ul (4.8-10.8)
[2025-05-08 06:41] LABS: Anion Gap 7.0 (3-11); Blood Urea Nitrogen 20.0 mg/dl (6-23); Calcium 8.9 mg/dl (8.6-10.3); Carbon Dioxide 22.0 mmol/L (21-32); Chloride 113.0 mmol/L (98-107); Creatinine Clr Calc Pharmacy 39.9 ml/min; Glucose 97.0 mg/dl (70-99(Fasting)); Potassium 3.7 mmol/L (3.5-5.1); Sodium 142.0 mmol/L (136-145)
[2025-05-08 07:03] VITALS: PULSE 58
[2025-05-08 07:58] VITALS: O2SAT 96
[2025-05-08] MEDS: PROMETHAZINE 6.25 MG/50.25 ML BAG IV PRN (10:27)
--- NOTE | 2025-05-08 11:10 | Gastroenterology Progress Note ---
Date of Service May 08, 2025 Assessment & Plan (1) Acute blood loss anemia: (2) Duodenal ulcer: (3) Celiac disease: Plan Patient with some ongoing abdominal pain but improved. no further melena. - recommend she continue protonix 40mg twice daily, even upon discharge. - avoid nsaids. - we discussed the importance of a strict gluten free diet. - will need to follow up in GI office as outpatient. GI will sign off. Admission and Anticipated Discharge Date Admission Date: May 05, 2025 Supervising Physician Co-Signing Physician Notes I saw and examined this patient with our nurse practitioner and agree with her assessment and plan. Not seen by me today. Team will consult us if any further issues while she continues to stay here. Subjective Patient had EGD yesterday (see below). she still has some abdominal discomfort but improved. no further melena. 05/08/25 hgb 8.5 EGD 05/07/25 - normal esophagus, gastritis, nonbleeding duodenal ulcers, duodenal mucosal changes seen consistent with celiac disease. Review of Systems Review of Systems: All systems reviewed & are unremarkable except as noted in HPI & below Physical Exam Constitutional: WD/WN, vitals as above Respiratory: normal respiratory effort, lungs clear to auscultation Cardiovascular: Rate/Rhythm: regular rate and regular rhythm Gastrointestinal (Abdomen): normal bowel sounds, soft, nontender, no hepatosplenomegaly Psychiatric: Orientation: alert and oriented x 3 Affect: euthymic affect Results & Data Results & Data Vital Signs (Past 12 Hours) Vital Signs Temp Pulse Pulse Resp BP Pulse Ox O2 Del Method 05/08/25 09:53 Room Air 05/08/25 07:16 98.4 F 58 L 16 110/68 96 Room Air 05/08/25 07:00 58 L 05/08/25 03:57 98.2 F 54 L 16 120/76 94 Room Air 05/08/25 00:25 56 L 05/07/25 23:57 97.9 F 53 L 16 111/67 96 Room Air Coding Level of Care Code 40309 SUB INP/OBS CARE 2/35MIN Diagnoses Acute blood loss anemia D62 Duodenal ulcer K26.9 Celiac disease K90.0
--- NOTE | 2025-05-08 11:48 | Discharge Summary ---
<Statement entered by Chicho Salgado DO - 05/08/25 12:54> I have seen and examined the patient and have discussed the case with the advance practice provider. I have reviewed the advanced practitioner's documentation, and I agree with, and take responsibility for that plan of care. Patient tolerating her diet. Still some mild epigastric tenderness. Stressed to her importance of maintaining a celiac's/gluten-free diet No additional antibiotics required for possible UTI. Discharge plans as outlined below I spent a total of 15 minutes coordinating, documenting, and providing care for this patient excluding time spent by another provider/QHP. Discharge Summary Date of Service May 08, 2025 Principal Dx & Hospital Course #1 = Principal Diagnosis (1) UGIB (upper gastrointestinal bleed): (2) Chronic gastritis: (3) Acute blood loss anemia: (4) NSVT (nonsustained ventricular tachycardia): (5) Acute UTI (urinary tract infection): (6) CHARLES (iron deficiency anemia): (7) Paroxysmal A-fib: (8) Orthostatic hypotension: Plan Patient is a 64y/o F with PMHx significant for valvular heart disease (moderate TR and mild MR), h/o idiopathic cardiac arrest/VT, PAF (not on anticoagulation due to fall risk and anemia as per records), orthostatic hypotension on midodrine, hypertension, hyperlipidemia with h/o statin intolerance, asthma/COPD, CYNTHIA/narcolepsy on CPAP, urolithiasis, hydronephrosis, celiac disease, PUD/GERD, irritable bowel syndrome, pancreas divisum, chronic anemia (baseline hemoglobin of 10-11), left adrenal tumor as per records, hypothyroidism, RLS, endometriosis/PCOS, h/o MRSA and migraines who presented to the ED on 05/05/25 with c/o dizziness, SOB and melanotic stools. Melena 2/2 suspected UGIB History of diffuse gastritis and celiac disease as per EGD completed 05/2024 P/w dizziness, SOB and melanotic stools x 5 episodes. History of untreated celiac disease >> could put her at risk for ulcerative jejunoileitis and small bowel malignancy. EGD, 05/2024: normal esophagus, regular Z-line, diffuse gastritis (negative for H. pylori), duodenal mucosal changes c/f celiac dz (biopsy confirmed). CTAP revealed mild stool burden. No evidence of bowel obstruction, no free intraperitoneal fluid or definite pneumoperitoneum. S/p EGD on 05/07/25: normal esophagus, gastritis (biopsied), nonbleeding duodenal ulcers with a clean ulcer base (Lopez class III), duodenal mucosal changes c/w celiac disease (biopsied). No further bouts of melena since admission. IV Protonix gtt discontinued s/p EGD. Still with some ongoing lower abdominal cramping but has improved. Stable for discharge from GI perspective >> patient agreeable with this. Can resume TUBE MOUNTER acid suppression regimen including PPI and H2 harsha. Will need to avoid NSAIDs. Importance of following strict gluten-free diet again discussed with the patient . Will need follow-up with GI as an outpatient. Acute blood loss anemia 2/2 above, s/p 2U PRBCs. H/H remained stable s/p transfusions, recommend repeat CBC in 1wk for monitoring . NSVT History of idiopathic cardiac arrest/VT Run of V. tach in ED s/p IV Lopressor x 1 w/o recurrence. EKG revealed NSR., remained in sinus rhythm on telemetry. Possible UTI vs. asymptomatic bacteruria/colonization History of recurrent UTIs Multiple recent admissions with UTI. UA with +LE, WBC and bacteria c/f UTI. Prior urine cx, 03/2025: pansensitive Acinetobacter junii. S/p IV cefepime x 3 days >> although question if true UTI. -Pt c/o vaginal pruritus and dysuria which is likely attributed to vaginal candidiasis. -Pt was started on po fluconazole TUBE MOUNTER for this. -UA did have some bacteria present but this could be 2/2 colonization, especially given history of ureteral stent placement. -And urine culture grew Lactobacillus gasseri which is considered a normal inhabitant of the female lower reproductive tract. Vaginal candidiasis Continue fluconazole. History of ureteral stents S/p cystoscopy with bilateral retrograde pyelogram and stent placement, right ureteral dilation, left ureteroscopy and laser endopyelotomy on 03/08/[address] Williasmon. CTAP revealed severe left hydronephrosis and moderately severe right hydronephrosis with bilateral ureteral stents >> similar to previous study. No evidence of definite new perinephric abnormality on CTAP and pt urinating w/o difficulty. History of CHARLES and folic acid deficiency anemia Follows with hematology for CHARLES, folate deficiency and vit D deficiency in setting of celiac disease. Receives IV Venofer and blood transfusions as an outpatient, has R chest port site. Continue folic acid and vitamin D supplementation. PAF Bradycardia Not on anticoagulation due to fall risk/anemia per records. Bradycardic with HR downtrending into the 40s per d/w RN this AM >> Toprol-XL dose reduced to 25mg BID from 37.5mg BID. History of orthostatic hypotension BP stable despite anemia, continue midodrine. Other chronic medical conditions: HLD - Continue statin. Hypothyroidism - TSH WNL as of 03/2025, continue levothyroxine. COPD/Asthma - No s/sx of acute exacerbation, continue home inhalers and Singulair. Migraines - Continue topiramate, amitriptyline. PCP: Vicki Watson MD Disposition: Pt is being DC'd home in stable condition with PCP and GI f/u. Patient seen in collaboration with Dr. Salgado. Please see addendum. I spent a total of 65 minutes coordinating, documenting, and providing care for this patient excluding time spent in the performance of separately billed services or time spent by another provider/QHP. This included personally reviewing all current laboratories and imaging studies, medical reconciliation, outpatient chart review and discussion with specialists. This chart was completed in part utilizing Speech Voice Recognition Software. Grammatical errors, random word insertions, pronoun errors, and incomplete sentences are an occasional consequence of this system due to software limitations, ambient noise, and hardware issues. Any formal questions or concerns about the content, text, or information contained within the body of this dictation should be directly addressed to the provider for clarification. Notes For Next Care Provider Repeat CBC in 1 week to monitor anemia, Hgb 8.5 as of 05/08/2025. Medication Changes From Visit Toprol-XL dose reduced to 25mg BID from 37.5mg BID 2/2 bradycardia Admission HPI Per Admitting Provider History obtained from patient and records. Medical history is significant for history idiopathic cardiac arrest/VT, valvu lar heart disease (moderate TR, mild MR), PAF (not on anticoagulation due to fall risk and anemia as per records), orthostatic hypotension on midodrine, hypertension, hyperlipidemia/statin intolerance, asthma/COPD, CYNTHIA/narcolepsy on CPAP, urolithiasis, hydronephrosis, celiac disease, PUD/GERD, irritable bowel syndrome, pancreas divisum, chronic anemia (baseline hemoglobin of 10-11), left adrenal tumor as per records, hypothyroidism, RLS, endometriosis/PCOS, hx MRSA. Monthly admissions since March 2025. Recent confinement last month for left-sided pyelonephritis status post stent placement. Patient not feeling well since yesterday. Dizziness described as lightheadedness. SOB worse on exertion. No headache. Melanotic stools with achy abdominal pain. Vaginal itching discomfort from yeast infection for which she is currently completing Diflucan course. Some nausea symptoms. Chronic cough symptoms. Denies OTC NSAID intake. Compliant with home medications. IV PPI and 2 units PRBC ordered at the ER for UGIB. NSVT episode during ER stay. MEDICAL HISTORY: As above. 2023 EGD showed diffuse gastritis/duodenal mucosal changes/celiac disease 2023 colonoscopy showed internal hemorrhoids SURGICAL HISTORY: TAHBSO, cholecystectomy, appendectomy, ankle surgery, knee surgery, nasal reconstruction, sinus surgery, finger tendon sheath surgery, urologic procedure, laminectomy/spine surgery FAMILY HISTORY: Family history of unknown. Patient is adopted. PERSONAL/SOCIAL HISTORY: Nonsmoker. No chronic intake of inatke of ETOH. 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 Admission Exam Per Admitting Provider GENERAL: Slightly uncomfortable, ill-appearing, no respiratory distress SKIN: Pallor, warm HEENT: Pale palpebral conjunctivae, no ptosis, dry buccal mucosa NECK : Supple, no tenderness CHEST : Decreased breath sounds, no tenderness HEART : Tachycardic, no obvious murmurs ABDOMEN: Some distention, minimal central abdominal tenderness EXTREMITIES : No LE swelling, no LE tenderness, no other conspicuous deformities noted NEUROLOGIC : Coherent, no facial asymmetry, no other gross focality Discharge Exam General/Psych: frail, laying down in bed, NAD, conversing easily, appears comfortable Head: normocephalic, atraumatic Eyes: normal inspection, PERRL, conjunctivae pink ENT: external ear and nose normal, oropharynx normal Neck: normal visual inspection, trachea midline Respiratory: normal respiratory effort, CTAB, no wheeze/rales/rhonchi, no accessory muscle use Cardiovascular: bradycardic rate, regular rhythm, no murmur/rub/gallop Extremities: no cyanosis or clubbing, normal peripheral pulses, no BLE edema Abdomen/GI: normal bowel sounds, soft, slightly tender on palpation of lower abdominal region but no guarding Neurologic/MSK: A+Ox3, motor strength 5/5, moves all extremities Skin: no rashes, normal color, warm and dry, + R chest wall port Updated Medication List Medication Instructions Recorded Confirmed Type aspirin 81 mg tablet,delayed 81 mg PO QAM 09/14/24 05/05/25 History release atorvastatin 20 mg tablet 20 mg PO HS 09/14/24 05/05/25 History cimetidine 400 mg tablet 400 mg PO [facility] 09/14/24 05/05/25 History fexofenadine 180 mg tablet 180 mg PO QAM 09/14/24 05/05/25 History fluticasone 250 mcg-salmeterol 50 1 inh inhalation [facility] 09/14/24 05/05/25 History mcg/dose blistr powdr for inhalation (Advair Diskus) folic acid 1 mg tablet 2 mg PO [facility] 09/14/24 05/05/25 History hyoscyamine sulfate 0.375 mg 0.375 mg PO Q6H PRN Abdominal Pain 09/14/24 05/05/25 History tablet,extended release,12 hr ipratropium 20 mcg-albuterol 100 1 puff inhalation QID PRN 09/14/24 05/05/25 History mcg/actuation mist for inhalation Shortness Of Breath Or Wheezing (Combivent Respimat) levothyroxine 100 mcg capsule 100 mcg PO DAILYBB 09/14/24 05/05/25 History montelukast 10 mg tablet 10 mg PO HS 09/14/24 05/05/25 History multivitamin 1 tab PO QAM 09/14/24 05/05/25 History rabeprazole 20 mg tablet,delayed 40 mg PO BID 09/14/24 05/05/25 History release (AcipHex) sucralfate 1 gram tablet 1 g PO [facility] 09/14/24 05/05/25 History topiramate 100 mg tablet 100 mg PO BID 09/14/24 05/05/25 History CPAP Machine 09/15/24 05/05/25 History amitriptyline 75 mg tablet 75 mg PO HS 09/15/24 05/05/25 History azelastine 137 mcg (0.1 %) nasal 1 spray intranasal BID 09/15/24 05/05/25 History spray levalbuterol HCl 1.25 mg/3 mL 1.25 mg inhalation .Q4-6H PRN 09/15/24 05/05/25 History solution for nebulization Shortness Of Breath Or Wheezing ondansetron 4 mg disintegrating 4 mg PO Q8H PRN Nausea And Vomiting 09/15/24 05/05/25 History tablet polyethylene glycol 3350 17 gram 17 g PO QAM 09/15/24 05/05/25 History oral powder packet (Miralax) epinephrine 0.3 mg/0.3 mL 0.3 mg subcut UD PRN Anaphylaxis 03/11/25 05/05/25 History injection, auto-injector midodrine 5 mg tablet 5 mg PO TID #90 tabs 03/18/25 05/05/25 Rx metoprolol succinate 25 mg 37.5 mg (1.5 x 25 mg) PO BID #90 04/02/25 05/05/25 Rx tablet,extended release 24 hr tabs benzonatate 100 mg capsule 100 mg PO TID PRN Cough 05/05/25 05/05/25 History ergocalciferol (vitamin D2) 1,250 1,250 mcg PO WK 05/05/25 05/05/25 History mcg (50,000 unit) capsule fluconazole 200 mg tablet 200 mg PO QAM 05/05/25 05/05/25 History oxybutynin chloride 5 mg 5 mg PO QAM 05/05/25 05/05/25 History tablet,extended release 24 hr phenazopyridine 200 mg tablet 200 mg PO TID PRN as directed 05/05/25 05/05/25 History metoprolol succinate 25 mg 25 mg PO BID #60 tabs 05/08/25 Rx tablet,extended release 24 hr Hospital Stay Data Consultations 05/05/25 20:47 ED Decision to Admit Stat 05/05/25 22:02 Consult Gastroenterology Routine Procedures Performed Operation Date: 05/07/25 17:30 Actual Procedures p EGD Biopsy Cytology - Peter Donato MD Diagnostic Imagining Performed 05/05/25 21:08 CT Abd and Pelvis [CT abd pelvis wo con] Stat Discharge Instructions Given to Patient (Per Discharging Provider) lars Jane were admitted to [facility] for further evaluated of melena (black stools) - this appearance is caused by blood from an internal bleed that has been digested as it travels through your system. You were found to have an acute blood loss anemia secondary to suspected upper GI bleed. You required 2 blood transfusions for your anemia. You underwent an EGD which is a procedure where a doctor uses a thin, flexible tube with a camera called an endoscope to examine your esophagus, stomach, and the first part of your small intestine. You were found to have gastritis (inflammation of the lining of the stomach) and nonbleeding duodenal ulcers. These ulcers were likely the source of bleeding which caused your melena. Thankfully the bleeding has stopped. Do NOT take aspirin or other NSAIDs such as ibuprofen (Advil or Motrin) or naproxen (Aleve) - these increase the risk of your ulcers rebleeding. Your aspirin has been placed on hold for now. Continue to take your stomach acid-suppressing medications including cimetidine and rabeprazole. It is extremely important that you are compliant with a gluten-free diet. A strict gluten-free diet is crucial for individuals with celiac disease because it is the only treatment that prevents the immune system from attacking the small intestine, allowing it to heal and preventing further complications. Adherence to the diet alleviates symptoms, reduces inflammation, and can normalize biomarkers associated with the disease. A well-planned gluten-free diet can also prevent nutritional deficiencies and must be followed to avoid potential health risks, such as a higher risk of certain cancers and other complications linked to gluten exposure MEDICATION CHANGES: Aspirin placed on hold, as per above. Do not restart this unless otherwise instructed by your PCP or GI. Metoprolol succinate dose reduced to 25mg twice a day due to your heart rate being low. -Bradycardia, also known as low heart rate, is a side effect of beta blockers which requires dose reduction. RECOMMENDATIONS FOR FOLLOW-UP: Please attend your PCP follow-up appointment as scheduled. You will also need to follow-up with GI. You will be contacted to arrange this. Seek medical attention if you have: * temperature above 101F * chest pain or trouble breathing * abdominal pain, nausea, vomiting * diarrhea, dark stools or bloody stools * any unanswered questions or concerns Call 911 if symptoms are severe. Please take good care of yourself. It has been a pleasure taking care of you. If you have any questions regarding your recent hospitalization, please contact [facility] and request a [facility] @ [phone]. Total Time Total Time Spent Total Time Spent (In Minutes): 14
[2025-05-08 11:51] VITALS: BP 108/71; RESP 18; TEMP 98.1
[2025-05-08] MEDS: HEPARIN 100 UNIT/ML 5ML FLUSH ONE (14:24)
[2025-05-08] MEDS: LEVOTHYROXINE SODIUM 100 MCG TABLET PO SCH ×2 (14:25→14:49)
[2025-05-08] MEDS ORDERED: METOPROLOL SUCC 25MG EXT REL TAB PO SCH (21:00)
== END 2025-05-08 15:52 | disposition home or self-care (01) | DRG 378 ==
LOC: ED 18:59 → 2S 20:55

== ENCOUNTER 2025-06-14 17:04 | Inpatient (IN) ==
--- NOTE | 2025-06-14 17:50 | XRay Report ---
Chest radiograph, one view History: Chest pain Comparison: None Findings: Single AP view of the chest performed. No focal consolidation or pleural effusion. No pneumothorax. Right chest wall port with catheter tip at the lower SVC. Chronic left rib deformity is seen. The cardiomediastinal silhouette is within normal limits. Normal pulmonary vascularity. No evidence for lymphadenopathy. No visualized bony or soft tissue abnormality. Impression: Normal chest radiograph Electronically signed by Lai Gimenez 06-14-2025 5:48 PM
[2025-06-14 18:36] LABS: Hematocrit (blood only) 31.3 % (37.0-47.0); Hemoglobin 9.9 g/dL (12.0-16.0); Immature Granulocytes # (auto) 0.06 K/uL (0.01-0.20); Immature Granulocytes % (auto) 0.5 %; Mean Corpuscular Hemoglobin 30.3 pg (25.0-34.0); Mean Corpuscular Volume 95.7 fL (80.0-100.0); Platelet Count 427 K/uL (130-400); RDW Standard Deviation 56.9 fL (36.4-46.3); Red Blood Count 3.27 M/uL (4.20-5.40); White Blood Count 12.95 K/ul (4.8-10.8)
[2025-06-14 18:53] LABS: Alanine Aminotransferase 15.0 U/L (7-52); Albumin Globulin Ratio 0.8 (0.9-2); Albumin Level 3.1 gm/dl (3.4-5.0); Alkaline Phosphatase 118.0 U/L (34-104); Anion Gap 8.0 (3-11); Bilirubin,Total 0.2 mg/dl (0.2-1.0); Blood Urea Nitrogen 32.0 mg/dl (6-23); Calcium 8.7 mg/dl (8.6-10.3); Carbon Dioxide 22.0 mmol/L (21-32); Chloride 108.0 mmol/L (98-107); Creatinine Clr Calc Pharmacy 40.3 ml/min; Globulin 3.9 gm/dl (2.5-4.0); Glucose 101.0 mg/dl (70-99(Fasting)); Potassium 4.3 mmol/L (3.5-5.1); Sodium 138.0 mmol/L (136-145); Total Protein 7.0 gm/dl (6.0-8.3)
[2025-06-14 19:09] LABS: Influenza A virus by PCR Negative (Neg); Influenza B virus by PCR Negative (Neg); SARS CoV2 RNA(COVID-19) Ceph NEGATIVE (Negative)
[2025-06-14 20:05] LABS: Appearance Urine Turbid (Clear); Bacteria Urine Automated 2+ (None Seen); Glucose Urine UA Negative (Negative); RBC Urine Automated >20 /hpf (0-2); WBC Urine Automated >50 /hpf (0-5)
[2025-06-14 20:23] LABS: Cast Urine Automated 0-2 /lpf (0-2)
[2025-06-14 20:51] LABS: Magnesium 2.1 mg/dl (1.7-2.4)
[2025-06-14] MEDS: ONDANSETRON INJ 2 MG/ML 2 ML VIAL IV STA (21:18)
[2025-06-14] MEDS: PLASMA-LYTE A 1,000 ML IV ONE (21:19)
[2025-06-14] MEDS: cefTRIAXone SODIUM 2,000 MG/50 ML BAG IV STA (21:19)
[2025-06-14] MEDS: OPTIRAY 320 100ml IV ONE (21:44)
--- NOTE | 2025-06-14 21:50 | Emergency Department Note ---
Impression & Plan Hydroureteronephrosis, Acute pyelonephritis, Complicated urinary tract infection, Upper respiratory infection, viral, Hypoalbuminemia ED Provider Note NAME: SHAYY CARRILLO AGE: 64 SEX: F : 1960 ARRIVES VIA: Walk-In INFORMANT: Patient, ED PROVIDER(S): Reggie Love DO CHIEF COMPLAINT: UTI HPI: This is a 64-year-old female with the PMHx of Urolithiasis with hydronephrosis s/p ureteral stent placement, paroxysmal atrial fibrillation off anticoagulation, VT/cardiac arrest, orthostatic hypotension on midodrine, dyslipidemia, GERD/gastritis, celiac disease, IBS, CYNTHIA on CPAP, chronic anemia, and hypothyroidism presenting to [facility] for further evaluation of multiple complaints. Patient states that she has been ill for the past month. She states that she has been experiencing viral URI symptoms. She reports a productive cough of yellow to green sputum. She reports significant congestion. Some sinus pressure. She reports ongoing weakness and fatigue. She states that she has had fevers up until 2 days ago. She states 3 days ago she started with urinary frequency and dysuria. She reports her urine is foul-smelling. She states that she was sent in by her urologist. Denies chest pain or palpitations. No shortness of breath. They deny abdominal pain, nausea and vomiting. No recent changes in bowel movements. Patient denies recent changes in medications or OTC supplements. Patient offers no other complaints, today. ADDITIONAL HISTORY OBTAINED: Per HPI Chronic Medical/Social Conditions Affecting Care: Per HPI PAST MEDICAL HISTORY: See Below PAST SURGICAL HISTORY: See Below FAMILY HISTORY: See Below SOCIAL HISTORY: See Below HOME MEDICATIONS: See Below ALLERGIES: See Below VITALS: See Below PHYSICAL EXAMINATION: GENERAL: Sitting up in bed, alert, well appearing, well nourished, no distress, non-toxic EYE EXAM: normal conjunctiva. PERRL and EOM's grossly intact. OROPHARYNX: no exudate, no erythema, lips, buccal mucosa, and tongue normal and mucous membranes are moist NECK: supple, no nuchal rigidity, no adenopathy, non-tender LUNGS: Clear to auscultation. Normal chest wall mechanics HEART: no murmurs, regular rate, regular rhythm ABDOMEN: abdomen soft, generalized TTP, no masses, no rebound or guarding. BACK: Back is symmetrical on inspection and there is no deformity, no midline tenderness. Bilateral CVA tenderness. SKIN: no rashes and no bruising UPPER EXTREMITIES: upper extremities are grossly normal. LOWER EXTREMITIES: No pitting edema. NEURO EXAM: Normal sensorium, GCS 15, normal speech, no gross weakness of arms, no gross weakness of legs. MEDICAL DECISION MAKING: Differential diagnoses includes but not limited to appendicitis, bowel obstruction, diverticulitis, malignancy, nephrolithiasis, gastroenteritis, ACS, PNA, pancreatitis, hepatobiliary disease, UTI, STI, viral URI In summary, this is a 64 year old female who presented with UTI and viral URI symptoms. Differential as above. Nursing notes and pertinent past medical records reviewed. Vital signs reviewed and the patient is afebrile and HDS. History and presentation revealed ongoing symptoms for the last month and now with UTI symptoms. Physical examination revealed as above. As a result of my initial evaluation, IV access was established and the patient was placed on CCRM. Therapeutics ordered include IVFR and pain control. Diagnostics interpreted by me include EKG and cardiac monitoring as listed below: -Cardiac Monitoring: An order was placed for continuous cardiac monitoring. The monitor shows a rate of 70-110s with regular rhythm. -ECG: normal sinus rhythm at a ventricular rate of [address] segment changes to suggest STEMI. Intervals are within normal limits. Patient completed laboratory studies and imaging. Results independently interpreted by me are Mild leukocytosis. Stable anemia. No significant electrolyte derangements. She does have slightly increased BUN/creatinine ratio likely from mild dehydration. LFTs are largely normal. Normal procalcitonin. Doubt significant bacterial infection but still possible. Doubt bacteremia. Patient does have a UTI on urinalysis. CXR independently interpreted by me reveals no evidence of focal consolidation to suggest pna. No large pneumothorax or pleural effusion. No obvious displaced rib fracture. CT abdomen/pelvis was independently interpreted by me as ureteral enhancement with hydronephrosis despite ureteral stents. Concerning for an ascending urinary tract infection. She was managed with IV ceftriaxone, pain control, and IV fluid resuscitation while in the emergency department. Given concerns for possible serious infection, patient will be in need to be admitted for broad- spectrum antibiotics and close observation. She may benefit from seeing urology in the morning.. Patient appears to have an ascending UTI and admission requested. Ultimately, the decision was made to admit the patient for ascending UTI with acute dehydration. I discussed the case with the hospitalist service via telephone/TigerText and they are agreeable to admit the patient to their services. Based on the above, including the patient's age, coexisting illnesses, labs, imaging, and exam findings the decision to treat as an inpatient. I discussed the patient with the hospitalist team who recommended admission to their services. They received the medications, treatments, interventions indicated above and their condition remained guarded. I discussed my findings with the patient and their family and they understand and agree with the treatment plan. All patient / family questions were answered to their satisfaction. Consults/Care Managements Discussions: Per MDM ER treatment provided: See above Procedures: None Critical Care: None The chart was completed utilizing [employer] Speech voice recognition software. Grammatical errors, random word insertions, pronoun errors, and incomplete sentences are an occasional consequence of this system due to software limitations, ambient noise, and hardware issues. Any formal questions or concerns about the content, text, or information contained within the body of this dictation should be directly addressed to the physician for clarification. Past Med/Surg History Problem List (Updated 06/16/25 @ 03:09 by Reggie Love DO) Hypoalbuminemia (Acute) Upper respiratory infection, viral (Acute) Complicated urinary tract infection (Acute) Ureteral stent present Left renal mass Community acquired pneumonia Sepsis Acute blood loss anemia Melena Symptomatic anemia (Acute) Dyspnea (Acute) UGIB (upper gastrointestinal bleed) (Acute) Hydroureteronephrosis (Acute) Acute pyelonephritis (Acute) Pyelonephritis Contraindication to anticoagulation therapy Hypotension Atrial fibrillation Elevated procalcitonin (Acute) Atrial fibrillation with rapid ventricular response (Acute) Generalized weakness (Acute) Rupture of kidney (Acute) LILLIANA (acute kidney injury) (Acute) Transaminitis (Acute) Sepsis (Acute) Atrial fibrillation with rapid ventricular response (Acute) Incontinence (Chronic) Adrenal nodule (Chronic) Renal cyst (Acute) Bilateral hydronephrosis (Chronic) Abdominal pain PSVT (paroxysmal supraventricular tachycardia) Elevated brain natriuretic peptide (BNP) level (Acute) Atrial tachycardia, paroxysmal Syncope (Acute) 01/2024 per records Dyspnea (Acute) Shortness of breath (Acute) PAF (paroxysmal atrial fibrillation) Sinus tachycardia (Acute) Palpitation (Acute) Hypokalemia Transaminitis Elevated LFTs (Acute) Encounter for pre-operative examination CYNTHIA (obstructive sleep apnea) (Chronic) Asthma, severe persistent (Chronic) Gastroparesis (Chronic) Celiac disease (Chronic) GERD (gastroesophageal reflux disease) (Chronic) IBS (irritable bowel syndrome) (Chronic) Hypothyroidism (Chronic) no current medication -- TSH normal without meds. CHARLES (iron deficiency anemia) (Chronic) ferrous sulfate QID. Dyslipidemia (Chronic) MRSA (methicillin resistant Staphylococcus aureus) (Chronic) 1999 dx nose septum wound 2019 dx in lungs Medical History Flank pain Acute UTI (urinary tract infection) Elevated troponin NSVT (nonsustained ventricular tachycardia) - hx of nonsustained VT (isolated run on Zio without associated symptoms per cardio); intolerance to beta blockers Renal cyst per medical record, pt unsure Depression Port-A-Cath in place Bilateral hydronephrosis Chronic kidney disease stage 3 or 4 - follows with [facility] Nephrology Sari fish Hx of gastric ulcer Chronic gastritis GERD (gastroesophageal reflux disease) Migraines Chronic nausea Seasonal allergies Hypothyroidism Paroxysmal A-fib - follows with Dr. Aguirre, takes asa daily (not anticoagulated due to anemia and fall risk per cardio records ) - patient referred at last cardio appt 10/2024 for evaluation for left appendage occluder device Celiac disease Hx of renal calculi no surgical intervention needed Poor intravenous access PSVT (paroxysmal supraventricular tachycardia) - no current issues per patient Hx MRSA infection 1999 dx nose septum wound 2019 dx in lungs Gastroparesis IBS (irritable bowel syndrome) Dyslipidemia CHARLES (iron deficiency anemia) History of COVID-19 has had ~5 times - last had ~early 2023, no hospitalization. Orthostatic hypotension Follows with [facility] cardiology On midodrine Chronic anemia frequent iron and blood transfusions. Hypertension hx --> pt reports she is being treated for hypotension Adrenal cyst monitoring unchanged per 2024 imaging; benign per PCP Chronic back pain Degenerative disc disease Osteoarthritis Anxiety Mitral valve prolapse follows with Dr Aguirre Narcolepsy Chronic obstructive pulmonary disease uncontrolled, uses inhalers daily Sleep apnea CPAP + 2lpm of oxygen Surgical History H/O insertion of central venous access port power port placed due to poor IV access + frequent blood draws/iron/blood transfusions S/P spinal fusion C1 through L3 or L4 (~2021 at [facility]) History of cardioversion ~2019 History of cardiac radiofrequency ablation ~2014 [facility] [place] History of bronchoscopy in the S/P trigger finger release right hand History of ankle surgery bilateral ankle repair with hardware H/O hand surgery with hardware (left) S/P GLENNY-BSO S/P surgery on nasal septum "collapsed septum" s/p post op infection that "ate away the septum" S/P nasal surgery multiple Hx of cholecystectomy History of arthroscopic knee surgery left Hx of cardiac cath "2010 - normal coronaries" (pt denies) History of esophagogastroduodenoscopy (EGD) History of colonoscopy History of dilatation and curettage Family History Other No family history of adverse response to anesthesia Social History (System 06/15/25 @ 07:16 by Dana Fry) Smoking Status: Never smoker Second Hand Exposure: No; Do You Dip or Chew Tobacco: No; Hx Alcohol Use: No Hx Substance Use: No Preferred Language: Macedonian Communication Ability: Effective Corporate Director Required: No Beliefs That Will Affect Care: None marital status: Current Living Situation: Spouse and Family Current Living Situation Comment: 4yr old twins at home Feels Safe at Home: Yes Assistive Devices: CPAP and Oxygen - at Night Allergies Allergies Allergy/AdvReac Type Severity Reaction Status Date / Time bee venom protein (honey bee) Allergy Severe ANAPHYLAXIS Verified 06/15/25 07:16 coconut Allergy Severe RASH; SOB Verified 06/15/25 07:16 gluten Allergy Severe CELIAC'S Verified 06/15/25 07:16 latex Allergy Severe Anaphylaxis Verified 06/15/25 07:16 Penicillins Allergy Severe Anaphylaxis Verified 06/15/25 07:16 Sulfa (Sulfonamide Allergy Severe Anaphylaxis Verified 06/15/25 07:16 Antibiotics) ROBER Inhibitors Allergy Intermediate RASH/TACHYC Verified 06/15/25 07:16 ARDIA cefaclor Allergy Intermediate CECLOR--RASH/UPSET Verified 06/15/25 07:16 STOMACH egg Allergy Intermediate RASH & Verified 06/15/25 07:16 Bloating Influenza Virus Vaccines Allergy Intermediate rash and Verified 06/15/25 07:16 bloating tetracycline Allergy Intermediate NAUSEA/VOMI Verified 06/15/25 07:16 TING/RASH Tetracyclines Allergy Intermediate RASH/NAUSEA Verified 06/15/25 07:16 /VOMITING Quinolones Allergy Unknown ALLERGY TO Verified 06/15/25 07:16 AVELOX ,CAN TAKE CIPRO OR LEVAQUIN W/O RXN Beta-Blockers AdvReac Intermediate intolerance Verified 06/15/25 07:16 (Beta-Adrenergic Bloc as per records lactose AdvReac Intermediate BLOATING; Verified 06/15/25 07:16 DIARRHEA; VOMITING dextran sulfate AdvReac Unknown TOLERATED Verified 06/15/25 07:16 VENOFER 04/2022 Home Meds Home Medications Medication Instructions Recorded Confirmed aspirin 81 mg tablet,delayed 81 mg PO QAM 09/14/24 05/22/25 release atorvastatin 20 mg tablet 20 mg PO HS 09/14/24 05/22/25 fexofenadine 180 mg tablet 180 mg PO QAM 09/14/24 05/22/25 fluticasone 250 mcg-salmeterol 50 1 inh inhalation AMHS 09/14/24 05/22/25 mcg/dose blistr powdr for inhalation (Advair Diskus) ipratropium 20 mcg-albuterol 100 1 puff inhalation QID PRN 09/14/24 05/22/25 mcg/actuation mist for inhalation Shortness Of Breath Or Wheezing (Combivent Respimat) montelukast 10 mg tablet 10 mg PO HS 09/14/24 05/22/25 multivitamin 1 tab PO QAM 09/14/24 05/22/25 rabeprazole 20 mg tablet,delayed 40 mg PO BID 09/14/24 05/22/25 release (AcipHex) topiramate 100 mg tablet 100 mg PO BID 09/14/24 05/22/25 CPAP Machine 09/15/24 05/05/25 amitriptyline 75 mg tablet 75 mg PO HS 09/15/24 05/22/25 azelastine 137 mcg (0.1 %) nasal 1 spray intranasal BID 09/15/24 05/22/25 spray levalbuterol HCl 1.25 mg/3 mL 1.25 mg inhalation .Q4-6H PRN 09/15/24 05/22/25 solution for nebulization Shortness Of Breath Or Wheezing ondansetron 4 mg disintegrating 4 mg PO Q8H PRN Nausea And Vomiting 09/15/24 05/22/25 tablet polyethylene glycol 3350 17 gram 17 g PO QAM 09/15/24 05/22/25 oral powder packet (Miralax) epinephrine 0.3 mg/0.3 mL 0.3 mg subcut UD PRN Anaphylaxis 03/11/25 05/22/25 injection, auto-injector benzonatate 100 mg capsule 100 mg PO TID PRN Cough 05/05/25 05/22/25 ergocalciferol (vitamin D2) 1,250 1,250 mcg PO WK 05/05/25 05/22/25 mcg (50,000 unit) capsule oxybutynin chloride 5 mg 5 mg PO QAM 05/05/25 05/22/25 tablet,extended release 24 hr phenazopyridine 200 mg tablet 200 mg PO TID PRN as directed 05/05/25 05/22/25 cimetidine 400 mg tablet 400 mg PO BID 05/22/25 05/22/25 folic acid 1 mg tablet 2 mg PO DAILY 05/22/25 05/22/25 hyoscyamine sulfate 0.375 mg 0.375 mg PO Q6H PRN Abdominal Pain 05/22/25 05/22/25 tablet,extended release,12 hr levothyroxine 100 mcg capsule 100 mcg PO DAILY 05/22/25 05/22/25 metoprolol succinate 25 mg 25 mg PO DAILY 05/22/25 tablet,extended release 24 hr midodrine 5 mg tablet 5 mg PO TID 05/22/25 sucralfate 1 gram tablet 1 g PO QID 05/22/25 05/22/25 amitriptyline 75 mg tablet 75 mg PO HS 06/14/25 06/14/25 atorvastatin 20 mg tablet 20 mg PO QAM 06/14/25 06/14/25 azelastine 137 mcg (0.1 %) nasal 1 spray intranasal BID 06/14/25 06/14/25 spray cimetidine 400 mg tablet 400 mg PO BID 06/14/25 06/14/25 epinephrine 0.3 mg/0.3 mL 0.3 mg IM DIRECTED PRN Allergic 06/14/25 06/14/25 injection, auto-injector (EpiPen) Reaction fexofenadine 180 mg tablet 180 mg PO DAILY 06/14/25 06/14/25 fluticasone 250 mcg-salmeterol 50 1 inh inhalation DAILY 06/14/25 06/14/25 mcg/dose blistr powdr for inhalation (Advair Diskus) hyoscyamine sulfate 0.375 mg 0.375 mg PO Q6H PRN ABD PAIN 06/14/25 06/14/25 tablet,extended release,12 hr ipratropium 20 mcg-albuterol 100 1 puff inhalation QID PRN NEEDED 06/14/25 06/14/25 mcg/actuation mist for inhalation (Combivent Respimat) levalbuterol HCl 1.25 mg/3 mL 1.25 mg inhalation QID PRN 06/14/25 06/14/25 solution for nebulization Shortness Of Breath Or Wheezing levothyroxine 100 mcg tablet 100 mcg PO DAILYBB 06/14/25 06/14/25 metoprolol succinate 25 mg 25 mg PO BID 06/14/25 06/14/25 tablet,extended release 24 hr midodrine 5 mg tablet 5 mg PO TID 06/14/25 06/14/25 montelukast 10 mg tablet 10 mg PO QAM 06/14/25 06/14/25 ondansetron 4 mg disintegrating 4 mg PO Q8H PRN NAUSEA/VOMITING 06/14/25 06/14/25 tablet oxybutynin chloride 5 mg 5 mg PO QAM 06/14/25 06/14/25 tablet,extended release 24 hr phenazopyridine 200 mg tablet 200 mg PO TID PRN BLADDER PAIN 06/14/25 06/14/25 rabeprazole 20 mg tablet,delayed 40 mg PO BID 06/14/25 06/14/25 release sucralfate 1 gram tablet (Carafate) 1 g PO ACHS 06/14/25 06/14/25 topiramate 100 mg tablet 100 mg PO BID 06/14/25 06/14/25 Previous Rx's Medication Instructions Recorded dexamethasone 2 mg tablet 2 mg PO DAILY #1 tab 05/22/25 Results & Data (ED) Vital Signs Vital Signs - 24 hr 06/14/25 17:15 06/14/25 20:10 06/14/25 20:41 Temperature 36.9 C Temperature Source Temporal Artery Scan Pulse Rate 96 H 97 H Pulse Rate [Apical] 103 H Pulse Rhythm [Apical] Regular Pulse Strength [Apical] Normal Respiratory Rate 19 18 Respiratory Effort / Characteristics Non-Labored Spontaneous Non-Labored Spontaneous Respiratory Depth Normal Normal Respiratory Pattern Regular Blood Pressure 142/118 H Blood Pressure [Right Arm] 163/107 H Blood Pressure Mean 126 Blood Pressure Mean [Right Arm] 125 Blood Pressure Position [Right Arm] Pulse Oximetry 98 96 Oxygen Delivery Method Room Air Room Air Sepsis Recent Fever Within 48 Hours No Sepsis New/Unexplained Change in Mental Status N/A Sepsis Action Taken by Nursing No Action Required 06/14/25 22:00 06/15/25 00:00 06/15/25 00:44 Temperature Temperature Source Pulse Rate 108 H Pulse Rate [Apical] 90 102 H Pulse Rhythm [Apical] Regular Regular Pulse Strength [Apical] Normal Normal Respiratory Rate 17 16 Respiratory Effort / Characteristics Non-Labored Spontaneous Non-Labored Spontaneous Respiratory Depth Normal Normal Respiratory Pattern Regular Regular Blood Pressure Blood Pressure [Right Arm] 152/99 H 148/97 H Blood Pressure Mean Blood Pressure Mean [Right Arm] 116 114 Blood Pressure Position [Right Arm] Lying Pulse Oximetry 92 95 Oxygen Delivery Method Room Air Room Air Sepsis Recent Fever Within 48 Hours Sepsis New/Unexplained Change in Mental Status Sepsis Action Taken by Nursing Laboratory Data 06/15/25 04:19 06/15/25 04:19 Lab Results 06/14/25 06/14/25 06/14/25 Range/Units 18:20 19:45 21:00 WBC 12.95 H (4.8-10.8) K/ul RBC 3.27 L (4.20-5.40) M/uL Hgb 9.9 L (12.0-16.0) g/dL Hct 31.3 L (37.0-47.0) % MCV 95.7 (80.0-100.0) fL MCH 30.3 (25.0-34.0) pg MCHC 31.6 L (32.0-36.0) g/dL RDW Std Deviation 56.9 H (36.4-46.3) fL RDW Coeff of Reginaldo 16.2 H (11.5-14.5) % Plt Count 427 H (130-400) K/uL MPV 8.9 L (9.4-12.4) fL Immature Gran % (Auto) 0.5 % Neut % (Auto) 78.2 % Lymph % (Auto) 12.4 % [place] % (Auto) 8.0 % Eos % (Auto) 0.6 % Baso % (Auto) 0.3 % Neut # (Auto) 10.14 H (1.40-6.50) K/uL Lymph # (Auto) 1.60 (1.20-3.40) K/uL [place] # (Auto) 1.03 H (0.11-0.59) K/uL Eos # (Auto) 0.08 (0.00-0.50) K/uL Baso # (Auto) 0.04 (0.00-0.20) K/uL Immature Gran # (Auto) 0.06 (0.01-0.20) K/uL Sodium 138 (136-145) mmol/L Potassium 4.3 (3.5-5.1) mmol/L Chloride 108 H (98-107) mmol/L Carbon Dioxide 22 (21-32) mmol/L Anion Gap 8 (3-11) BUN 32 H (6-23) mg/dl Creatinine 1.19 (0.6-1.2) mg/dl Est Cr Clr Drug Dosing 40.3 ml/min eGFR 51.38 BUN/Creatinine Ratio 26.9 H (10-20) Glucose 101 H (70-99(Fasting)) mg/dl Lactate 0.7 (0.4-2.0) mmol/L Calcium 8.7 (8.6-10.3) mg/dl Magnesium 2.1 (1.7-2.4) mg/dl Total Bilirubin 0.2 (0.2-1.0) mg/dl AST 16 (13-39) U/L ALT 15 (7-52) U/L Alkaline Phosphatase 118 H (34-104) U/L Total Protein 7.0 (6.0-8.3) gm/dl Albumin 3.1 L (3.4-5.0) gm/dl Globulin 3.9 (2.5-4.0) gm/dl Albumin/Globulin Ratio 0.8 L (0.9-2) Procalcitonin 0.22 (0-0.5) ng/ml Urine Color Yellow Urine Appearance Turbid A (Clear) Urine pH 5.5 (4.5-7.5) Ur Specific [place] 1.011 (1.000-1.030) Urine Protein 1+ H (Negative) Urine Glucose (UA) Negative (Negative) Urine Ketones Negative (Negative) Urine Blood 3+ H (Negative) Urine Nitrite Negative (Negative) Urine Bilirubin Negative (Negative) Urine Urobilinogen Negative (Negative) Ur Leukocyte Esterase 3+ H (Negative) Urine WBC (Auto) >50 H (0-5) /hpf Urine RBC (Auto) >20 H (0-2) /hpf U Hyaline Cast (Auto) 0-2 (0-2) /lpf U Epithel Cells (Auto) 3-5 H (0-2) /hpf Urine Bacteria (Auto) 2+ H (None Seen) Urine Yeast Present A (None Prsent) Urine Comment SARS-CoV-2 (PCR) NEGATIVE (Negative) Influenza Type A (PCR) Negative (Neg) Influenza Type B (PCR) Negative (Neg) RSV (RT-PCR) Negative (Neg) Administered Medications Amitriptyline HCl (Amitriptyline Hcl 25 Mg Tab) 75 mg PO HS JAYSHREE Stop: 07/15/25 20:59 Last Admin: 06/15/25 20:42 Dose: 75 mg Documented By: YHACINTH Atorvastatin Calcium (Atorvastatin 20 Mg Tab) 20 mg PO QAM JAYSHREE Stop: 07/15/25 08:59 Last Admin: 06/15/25 08:15 Dose: 20 mg Documented By: KEIKO Azelastine HCl (Azelastine Hcl 0.1% Nasal 200 Sprays/27,400 Mcg Btl) 1 sprays NA BID [facility] Stop: 07/15/25 08:59 Last Admin: 06/15/25 21:12 Dose: 1 sprays Documented By: Admin: 06/15/25 08:16 Dose: 1 sprays Documented By: KEIKO Famotidine (Famotidine 40 Mg Tablet) 40 mg PO DAILY JAYSHREE Stop: 07/15/25 08:59 Last Admin: 06/15/25 08:17 Dose: 40 mg Documented By: KEIKO Fexofenadine HCl (Fexofenadine Hcl 180 Mg Tab) 180 mg PO DAILY [facility] Stop: 07/15/25 08:59 Last Admin: 06/15/25 08:22 Dose: 180 mg Documented By: KEIKO Fluticasone/Vilanterol (Fluticasone/Vilanterol 100/25mcg 14 Puffs/Inhaler) 1 puffs INH DAILY [facility] Stop: 07/15/25 08:59 Last Admin: 06/15/25 08:17 Dose: 1 puffs Documented By: KEIKO Guaifenesin (Guaifenesin 600 Mg Tabcr) 600 mg PO Q12 JAYSHREE Stop: 07/15/25 13:59 Last Admin: 06/15/25 21:13 Dose: 600 mg Documented By: Admin: 06/15/25 14:29 Dose: 600 mg Documented By: terrence Hydromorphone HCl (Hydromorphone Hcl 2 Mg Tab) 2 mg PO QID PRN PRN Reason: Pain Stop: 06/29/25 01:44 Last Admin: 06/15/25 20:49 Dose: 2 mg Documented By: Admin: 06/15/25 14:29 Dose: 2 mg Documented By: terrence Ceftriaxone Sodium (Rocephin) 2,000 mg in 50 mls @ 100 mls/hr IV Q24H JAYSHREE Stop: 06/20/25 21:59 Last Infusion: 06/15/25 22:12 Dose: Infused Documented By: Admin: 06/15/25 21:42 Dose: 100 mls/hr Documented By: HYACINTH Ipratropium [place] (Ipratropium [place] Neb Soln 0.02% 0.5mg/2.5ml Vial) 0.5 mg INH QIDR JAYSHREE Stop: 07/15/25 06:59 Last Admin: 06/15/25 20:32 Dose: 0.5 mg Documented By: Admin: 06/15/25 13:52 Dose: 0.5 mg Documented By: Admin: 06/15/25 10:38 Dose: 0.5 mg Documented By: Admin: 06/15/25 07:43 Dose: 0.5 mg Documented By: LENO Levalbuterol HCl (Levalbuterol 1.25 Mg/3 Ml Neb) 1.25 mg NEB QIDR JAYSHREE Stop: 07/15/25 06:59 Last Admin: 06/15/25 20:32 Dose: 1.25 mg Documented By: Admin: 06/15/25 13:52 Dose: 1.25 mg Documented By: Admin: 06/15/25 10:38 Dose: 1.25 mg Documented By: Admin: 06/15/25 07:43 Dose: 1.25 mg Documented By: LENO Levothyroxine Sodium (Levothyroxine Sodium 100 Mcg Tablet) 100 mcg PO DAILYBB [facility] Stop: 07/15/25 06:29 Last Admin: 06/15/25 06:34 Dose: 100 mcg Documented By: graeme Metoprolol Succinate (Metoprolol Succ 25mg Ext Rel Tab) 25 mg PO BID JAYSHREE Stop: 07/15/25 08:59 Last Admin: 06/15/25 20:43 Dose: 25 mg Documented By: Admin: 06/15/25 08:18 Dose: 25 mg Documented By: KEIKO Midodrine (Midodrine Hcl 2.5 Mg Tab) 5 mg PO TIDM JAYSHREE Stop: 07/15/25 07:59 Last Admin: 06/15/25 17:52 Dose: 5 mg Documented By: Admin: 06/15/25 11:58 Dose: 5 mg Documented By: terrence Admin: 06/15/25 08:14 Dose: 5 mg Documented By: KEIKO Montelukast Sodium (Montelukast Sodium 10 Mg Tablet) 10 mg PO QAM [facility] Stop: 07/15/25 08:59 Last Admin: 06/15/25 08:18 Dose: 10 mg Documented By: KEIKO Oxybutynin Chloride (Oxybutynin Chloride Xl 5 Mg Tabcr) 5 mg PO QAM [facility] Stop: 07/15/25 08:59 Last Admin: 06/15/25 08:18 Dose: 5 mg Documented By: KEIKO Pantoprazole Sodium (Pantoprazole 40 Mg Tab) 40 mg PO BID [facility] Stop: 07/15/25 08:59 Last Admin: 06/15/25 20:41 Dose: 40 mg Documented By: Admin: 06/15/25 08:19 Dose: 40 mg Documented By: KEIKO Sucralfate (Sucralfate 1 Gm Tab) 1 gm PO ACHS JAYSHREE Stop: 07/15/25 07:29 Last Admin: 06/15/25 20:40 Dose: 1 gm Documented By: Admin: 06/15/25 17:51 Dose: 1 gm Documented By: Admin: 06/15/25 11:58 Dose: 1 gm Documented By: terrence Admin: 06/15/25 08:14 Dose: 1 gm Documented By: KEIKO Topiramate (Topiramate 100 Mg Tab) 100 mg PO BID [facility] Stop: 07/15/25 08:59 Last Admin: 06/15/25 21:13 Dose: 100 mg Documented By: Admin: 06/15/25 08:18 Dose: 100 mg Documented By: SKB Discontinued Medications Azithromycin (Azithromycin 250 Mg Tab) 500 mg PO NOW STA Stop: 06/15/25 01:35 Last Admin: 06/15/25 02:01 Dose: 500 mg Documented By: abl Famotidine (Famotidine 20 Mg Tab) 20 mg PO ONE STA Stop: 06/15/25 01:53 Last Admin: 06/15/25 02:01 Dose: 20 mg Documented By: abl Fentanyl Citrate (Fentanyl Citrate Pf 100 Mcg/2 Ml Vial) 50 mcg IV NOW ONE Stop: 06/14/25 20:31 Last Admin: 06/14/25 21:18 Dose: 50 mcg Documented By: abl Parenteral Electrolytes (Plasma-Lyte A Ph 7.4) 1,000 mls @ 999 mls/hr IV .Q1H1M ONE Stop: 06/14/25 21:14 Last Infusion: 06/14/25 23:40 Dose: Infused Documented By: abl Admin: 06/14/25 21:19 Dose: 999 mls/hr Documented By: abl Ceftriaxone Sodium (Rocephin) 2,000 mg in 50 mls @ 100 mls/hr IV NOW STA Stop: 06/14/25 20:59 Last Infusion: 06/14/25 22:12 Dose: Infused Documented By: Admin: 06/14/25 21:19 Dose: 100 mls/hr Documented By: abl Fluconazole (Diflucan) 200 mg in 100 mls @ 100 mls/hr IV ONE STA Stop: 06/15/25 02:48 Last Infusion: 06/15/25 03:25 Dose: Infused Documented By: abl Admin: 06/15/25 02:24 Dose: 100 mls/hr Documented By: abl Cefepime HCl (Maxipime 2000mg) 2,000 mg in 20 mls @ 5 mls/min IV Q8H [facility]; Protocol Stop: 06/25/25 09:59 Last Admin: 06/15/25 10:40 Dose: 5 mls/min Documented By: SKKimberly Cefepime HCl (Maxipime 2000mg) 2,000 mg in 20 mls @ 5 mls/min IV ONE STA; Protocol Stop: 06/15/25 01:53 Last Admin: 06/15/25 02:07 Dose: 5 mls/min Documented By: abl Ioversol (Optiray 320 100ml) 90 ml IV ONCE ONE Stop: 06/14/25 21:45 Last Admin: 06/14/25 21:44 Dose: 90 ml Documented By: REGINA Ipratropium [place] (Ipratropium [place] Neb Soln 0.02% 0.5mg/2.5ml Vial) 0.5 mg INH NOW STA Stop: 06/15/25 01:32 Last Admin: 06/15/25 02:23 Dose: 0.5 mg Documented By: abl Levalbuterol HCl (Levalbuterol 1.25 Mg/3 Ml Neb) 1.25 mg NEB NOW STA Stop: 06/15/25 01:32 Last Admin: 06/15/25 02:23 Dose: 1.25 mg Documented By: abl Methylprednisolone (Methylprednisolone 125 Mg/2 Ml Vial) 40 mg IV ONE STA Stop: 06/15/25 01:36 Last Admin: 06/15/25 02:20 Dose: 40 mg Documented By: abl Metoprolol Succinate (Metoprolol Succ 25mg Ext Rel Tab) 25 mg PO ONE STA Stop: 06/15/25 01:52 Last Admin: 06/15/25 02:03 Dose: 25 mg Documented By: abl Morphine Sulfate (Morphine Sulfate 2 Mg/Ml [place]) 2 mg IV Q4H PRN PRN Reason: Pain Stop: 06/29/25 01:35 Last Admin: 06/15/25 08:32 Dose: 2 mg Documented By: SKKimberly Admin: 06/15/25 02:29 Dose: 2 mg Documented By: abl Ondansetron HCl (Ondansetron Inj 2 Mg/Ml 2 Ml Vial) 4 mg IV NOW STA Stop: 06/14/25 20:31 Last Admin: 06/14/25 21:18 Dose: 4 mg Documented By: abl Pantoprazole Sodium (Pantoprazole 40 Mg Tab) 40 mg PO ONE STA Stop: 06/15/25 01:53 Last Admin: 06/15/25 02:19 Dose: 40 mg Documented By: abl Sucralfate (Sucralfate 1 Gm Tab) 1 gm PO ONE STA Stop: 06/15/25 01:53 Last Admin: 06/15/25 03:30 Dose: 1 gm Documented By: abl Topiramate (Topiramate 100 Mg Tab) 100 mg PO ONE STA Stop: 06/15/25 01:53 Last Admin: 06/15/25 02:01 Dose: 100 mg Documented By: abl Imaging Data Radiologist's Impression: Chest X-Ray 06/14/25 17:17 Chest radiograph, one view History: Chest pain Comparison: None Findings: Single AP view of the chest performed. No focal consolidation or pleural effusion. No pneumothorax. Right chest wall port with catheter tip at the lower SVC. Chronic left rib deformity is seen. The cardiomediastinal silhouette is within normal limits. Normal pulmonary vascularity. No evidence for lymphadenopathy. No visualized bony or soft tissue abnormality. Impression: Normal chest radiograph Electronically signed by Lai Gimenez 06-14-2025 5:48 PM Abdomen/Pelvis CT 06/14/25 20:30 Exam(s): CT ABDOMEN + PELVIS With Contrast IV Amt: 90 ml optiray 320 EXAM: CT Abdomen and Pelvis With Intravenous Contrast CLINICAL HISTORY: Reason for exam: complicated UTI, sepsis, known stents. TECHNIQUE: Axial computed tomography images of the abdomen and pelvis with intravenous contrast. Automated exposure control was utilized for the study. A dose lowering technique was utilized adhering to the principles of ALARA. CONTRAST: Patient received 90 ml optiray 320 of IV contrast COMPARISON: None available. FINDINGS: Lung bases: Clear. Liver: Mild intrahepatic ductal dilatation, nonspecific, probable biliary ectasia relating to cholecystectomy. Gallbladder and bile ducts: Cholecystectomy. No ductal dilation. Pancreas: No ductal dilation, or acute pancreatitis. Spleen: Unremarkable. Adrenals: 3 x 2.1 x 2.6 cm left adrenal nodule. Kidneys and ureters: Severe left and moderate right hydronephrosis, in spite of bilateral ureteral stents. Mildly prominent and wall enhancing right ureter. Mild wall enhancement left renal pelvis. Cannot rule out underlying pyelitis. There is no stone along the course of the stents, though stent failure bilaterally may be present. There is a mass in the left lower pole kidney measuring 2.5 x 1.9 x 1.4 cm, nonspecific, may be inflammatory/infectious, such as phlegmon, though neoplasm must be excluded. Stomach and bowel: Intermittent small bowel fluid is nonspecific, may be postprandial, can not rule out mild gastroenteritis or ileus. Moderate fecal loading of the colon. No diverticulosis, diverticulitis or bowel obstruction. Appendix: Normal. Intraperitoneal space: No free air or fluid. Bones/joints: No acute fracture. Soft tissues: Unremarkable. Vasculature: No aortic aneurysm. Lymph nodes: No enlarged lymph nodes. Bladder: Collapsed with bilateral ureteral stents. Reproductive: Unremarkable as visualized. IMPRESSION: 1. Bilateral urothelial enhancement and hydronephrosis, in spite of ureteral stents. Findings are nonspecific, cannot rule out underlying infection or blocked stents. 2. 2.5 cm left lower pole renal mass, possible phlegmon, neoplasm must be excluded. 3. Small bowel fluid is nonspecific, consider gastroenteritis or ileus, though this may be postprandial. Electronically signed by: Johana Montiel M.D. 06/14/25 23:39 PM Discharge Plan Visit Data Chief Complaint: Illness Stated Complaint: UTI/ BRANCHITIS/ FEVER/ COUGH ED Provider: Reggie Love Discharge Problem: Hydroureteronephrosis, Acute pyelonephritis, Complicated urinary tract infection, Upper respiratory infection, viral, Hypoalbuminemia Patient Disposition: Admitted As Inpatient Condition: Serious Discharge Instructions Interventions: ED Discharge Assessment Last Done: 06/15/25 16:47
--- NOTE | 2025-06-14 23:40 | CT Scan Report ---
Exam(s): CT ABDOMEN + PELVIS With Contrast IV Amt: 90 ml optiray 320 EXAM: CT Abdomen and Pelvis With Intravenous Contrast CLINICAL HISTORY: Reason for exam: complicated UTI, sepsis, known stents. TECHNIQUE: Axial computed tomography images of the abdomen and pelvis with intravenous contrast. Automated exposure control was utilized for the study. A dose lowering technique was utilized adhering to the principles of ALARA. CONTRAST: Patient received 90 ml optiray 320 of IV contrast COMPARISON: None available. FINDINGS: Lung bases: Clear. Liver: Mild intrahepatic ductal dilatation, nonspecific, probable biliary ectasia relating to cholecystectomy. Gallbladder and bile ducts: Cholecystectomy. No ductal dilation. Pancreas: No ductal dilation, or acute pancreatitis. Spleen: Unremarkable. Adrenals: 3 x 2.1 x 2.6 cm left adrenal nodule. Kidneys and ureters: Severe left and moderate right hydronephrosis, in spite of bilateral ureteral stents. Mildly prominent and wall enhancing right ureter. Mild wall enhancement left renal pelvis. Cannot rule out underlying pyelitis. There is no stone along the course of the stents, though stent failure bilaterally may be present. There is a mass in the left lower pole kidney measuring 2.5 x 1.9 x 1.4 cm, nonspecific, may be inflammatory/infectious, such as phlegmon, though neoplasm must be excluded. Stomach and bowel: Intermittent small bowel fluid is nonspecific, may be postprandial, can not rule out mild gastroenteritis or ileus. Moderate fecal loading of the colon. No diverticulosis, diverticulitis or bowel obstruction. Appendix: Normal. Intraperitoneal space: No free air or fluid. Bones/joints: No acute fracture. Soft tissues: Unremarkable. Vasculature: No aortic aneurysm. Lymph nodes: No enlarged lymph nodes. Bladder: Collapsed with bilateral ureteral stents. Reproductive: Unremarkable as visualized. IMPRESSION: 1. Bilateral urothelial enhancement and hydronephrosis, in spite of ureteral stents. Findings are nonspecific, cannot rule out underlying infection or blocked stents. 2. 2.5 cm left lower pole renal mass, possible phlegmon, neoplasm must be excluded. 3. Small bowel fluid is nonspecific, consider gastroenteritis or ileus, though this may be postprandial. Electronically signed by: Johana Montiel M.D. 06/14/25 23:39 PM
--- NOTE | 2025-06-14 23:55 | History & Physical Report ---
Date of Service June 14, 2025 History of Present Illness Chief Complaint: UTI, worsening cough/SOB Primary Care Provider: Vicki Watson MD Patient has a previous [facility] account. (MR#: [id number]) History obtained from patient and records. Medical history is significant for history idiopathic cardiac arrest/VT, valvular heart disease (moderate TR, mild MR), PAF (not on anticoagulation due to fall risk and anemia as per records), orthostatic hypotension on midodrine, hypertension, hyperlipidemia/statin intolerance, asthma/COPD, CYNTHIA/narcolepsy on CPAP, urolithiasis, hydronephrosis status post stent, celiac disease, PUD/GERD, irritable bowel syndrome, pancreas divisum, chronic anemia (baseline hemoglobin of 8), left adrenal tumor as per records, hypothyroidism, RLS, endometriosis/PCOS, hx MRSA. Monthly admissions since March 2025. Recent confinement last month for UGIB EGD showed diffuse gastritis and celiac disease. Patient noted worsening cough symptoms productive of junky yellow/green sputum over the last few weeks. SOB and achy left-sided chest pain from coughing. Denies aspiration. Not sure about sick contacts. 3 days ago, patient noted achy lower abdominal pain and dysuria symptoms similar to UTI attack. No hematuria. Some nausea without emesis. Low-grade fever at home. Foul-smelling cloudy urine. Patient called [facility] urologist office asking for advice. Patient directed to ER for evaluation. IV ceftriaxone administered at the ER. MEDICAL HISTORY: As above. SURGICAL HISTORY: TAHBSO, cholecystectomy, appendectomy, ankle surgery, knee surgery, nasal reconstruction, sinus surgery, finger tendon sheath surgery, urologic procedure, laminectomy/spine surgery FAMILY HISTORY: Family history of unknown. Patient is adopted. PERSONAL/SOCIAL HISTORY: Nonsmoker. No chronic intake of inatke of ETOH. 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 Allergies Allergy/AdvReac Type Severity Reaction Status Date / Time bee venom protein (honey bee) Allergy Severe ANAPHYLAXIS Verified 06/15/25 07:16 coconut Allergy Severe RASH; SOB Verified 06/15/25 07:16 gluten Allergy Severe CELIAC'S Verified 06/15/25 07:16 latex Allergy Severe Anaphylaxis Verified 06/15/25 07:16 Penicillins Allergy Severe Anaphylaxis Verified 06/15/25 07:16 Sulfa (Sulfonamide Allergy Severe Anaphylaxis Verified 06/15/25 07:16 Antibiotics) ROBER Inhibitors Allergy Intermediate RASH/TACHYC Verified 06/15/25 07:16 ARDIA cefaclor Allergy Intermediate CECLOR--RASH/UPSET Verified 06/15/25 07:16 STOMACH egg Allergy Intermediate RASH & Verified 06/15/25 07:16 Bloating Influenza Virus Vaccines Allergy Intermediate rash and Verified 06/15/25 07:16 bloating tetracycline Allergy Intermediate NAUSEA/VOMI Verified 06/15/25 07:16 TING/RASH Tetracyclines Allergy Intermediate RASH/NAUSEA Verified 06/15/25 07:16 /VOMITING Quinolones Allergy Unknown ALLERGY TO Verified 06/15/25 07:16 AVELOX ,CAN TAKE CIPRO OR LEVAQUIN W/O RXN Beta-Blockers AdvReac Intermediate intolerance Verified 06/15/25 07:16 (Beta-Adrenergic Bloc as per records lactose AdvReac Intermediate BLOATING; Verified 06/15/25 07:16 DIARRHEA; VOMITING dextran sulfate AdvReac Unknown TOLERATED Verified 06/15/25 07:16 VENOFER 04/2022 Home Medications Medication Instructions Recorded Confirmed Type aspirin 81 mg tablet,delayed 81 mg PO QAM 09/14/24 05/22/25 History release atorvastatin 20 mg tablet 20 mg PO HS 09/14/24 05/22/25 History fexofenadine 180 mg tablet 180 mg PO QAM 09/14/24 05/22/25 History fluticasone 250 mcg-salmeterol 50 1 inh inhalation AMHS 09/14/24 05/22/25 History mcg/dose blistr powdr for inhalation (Advair Diskus) ipratropium 20 mcg-albuterol 100 1 puff inhalation QID PRN 09/14/24 05/22/25 History mcg/actuation mist for inhalation Shortness Of Breath Or Wheezing (Combivent Respimat) montelukast 10 mg tablet 10 mg PO HS 09/14/24 05/22/25 History multivitamin 1 tab PO QAM 09/14/24 05/22/25 History rabeprazole 20 mg tablet,delayed 40 mg PO BID 09/14/24 05/22/25 History release (AcipHex) topiramate 100 mg tablet 100 mg PO BID 09/14/24 05/22/25 History CPAP Machine 09/15/24 05/05/25 History amitriptyline 75 mg tablet 75 mg PO HS 09/15/24 05/22/25 History azelastine 137 mcg (0.1 %) nasal 1 spray intranasal BID 09/15/24 05/22/25 History spray levalbuterol HCl 1.25 mg/3 mL 1.25 mg inhalation .Q4-6H PRN 09/15/24 05/22/25 History solution for nebulization Shortness Of Breath Or Wheezing ondansetron 4 mg disintegrating 4 mg PO Q8H PRN Nausea And Vomiting 09/15/24 05/22/25 History tablet polyethylene glycol 3350 17 gram 17 g PO QAM 09/15/24 05/22/25 History oral powder packet (Miralax) epinephrine 0.3 mg/0.3 mL 0.3 mg subcut UD PRN Anaphylaxis 03/11/25 05/22/25 History injection, auto-injector benzonatate 100 mg capsule 100 mg PO TID PRN Cough 05/05/25 05/22/25 History ergocalciferol (vitamin D2) 1,250 1,250 mcg PO WK 05/05/25 05/22/25 History mcg (50,000 unit) capsule oxybutynin chloride 5 mg 5 mg PO QAM 05/05/25 05/22/25 History tablet,extended release 24 hr phenazopyridine 200 mg tablet 200 mg PO TID PRN as directed 05/05/25 05/22/25 History cimetidine 400 mg tablet 400 mg PO BID 05/22/25 05/22/25 History dexamethasone 2 mg tablet 2 mg PO DAILY #1 tab 05/22/25 05/22/25 Rx folic acid 1 mg tablet 2 mg PO DAILY 05/22/25 05/22/25 History hyoscyamine sulfate 0.375 mg 0.375 mg PO Q6H PRN Abdominal Pain 05/22/25 05/22/25 History tablet,extended release,12 hr levothyroxine 100 mcg capsule 100 mcg PO DAILY 05/22/25 05/22/25 History metoprolol succinate 25 mg 25 mg PO DAILY 05/22/25 History tablet,extended release 24 hr midodrine 5 mg tablet 5 mg PO TID 05/22/25 History sucralfate 1 gram tablet 1 g PO QID 05/22/25 05/22/25 History amitriptyline 75 mg tablet 75 mg PO HS 06/14/25 06/14/25 History atorvastatin 20 mg tablet 20 mg PO QAM 06/14/25 06/14/25 History azelastine 137 mcg (0.1 %) nasal 1 spray intranasal BID 06/14/25 06/14/25 History spray cimetidine 400 mg tablet 400 mg PO BID 06/14/25 06/14/25 History epinephrine 0.3 mg/0.3 mL 0.3 mg IM DIRECTED PRN Allergic 06/14/25 06/14/25 History injection, auto-injector (EpiPen) Reaction fexofenadine 180 mg tablet 180 mg PO DAILY 06/14/25 06/14/25 History fluticasone 250 mcg-salmeterol 50 1 inh inhalation DAILY 06/14/25 06/14/25 History mcg/dose blistr powdr for inhalation (Advair Diskus) hyoscyamine sulfate 0.375 mg 0.375 mg PO Q6H PRN ABD PAIN 06/14/25 06/14/25 History tablet,extended release,12 hr ipratropium 20 mcg-albuterol 100 1 puff inhalation QID PRN NEEDED 06/14/25 06/14/25 History mcg/actuation mist for inhalation (Combivent Respimat) levalbuterol HCl 1.25 mg/3 mL 1.25 mg inhalation QID PRN 06/14/25 06/14/25 History solution for nebulization Shortness Of Breath Or Wheezing levothyroxine 100 mcg tablet 100 mcg PO DAILYBB 06/14/25 06/14/25 History metoprolol succinate 25 mg 25 mg PO BID 06/14/25 06/14/25 History tablet,extended release 24 hr midodrine 5 mg tablet 5 mg PO TID 06/14/25 06/14/25 History montelukast 10 mg tablet 10 mg PO QAM 06/14/25 06/14/25 History ondansetron 4 mg disintegrating 4 mg PO Q8H PRN NAUSEA/VOMITING 06/14/25 06/14/25 History tablet oxybutynin chloride 5 mg 5 mg PO QAM 06/14/25 06/14/25 History tablet,extended release 24 hr phenazopyridine 200 mg tablet 200 mg PO TID PRN BLADDER PAIN 06/14/25 06/14/25 History rabeprazole 20 mg tablet,delayed 40 mg PO BID 06/14/25 06/14/25 History release sucralfate 1 gram tablet (Carafate) 1 g PO ACHS 06/14/25 06/14/25 History topiramate 100 mg tablet 100 mg PO BID 06/14/25 06/14/25 History Past Med/Surg History Problem List (Updated 06/15/25 @ 07:16 by Dana Fry) Sepsis Acute blood loss anemia Melena Symptomatic anemia (Acute) Dyspnea (Acute) UGIB (upper gastrointestinal bleed) (Acute) Hydroureteronephrosis (Acute) Acute pyelonephritis (Acute) Pyelonephritis Contraindication to anticoagulation therapy Hypotension Atrial fibrillation Elevated procalcitonin (Acute) Atrial fibrillation with rapid ventricular response (Acute) Generalized weakness (Acute) Rupture of kidney (Acute) LILLIANA (acute kidney injury) (Acute) Transaminitis (Acute) Sepsis (Acute) Atrial fibrillation with rapid ventricular response (Acute) Incontinence (Chronic) Adrenal nodule (Chronic) Renal cyst (Acute) Bilateral hydronephrosis (Chronic) Abdominal pain PSVT (paroxysmal supraventricular tachycardia) Elevated brain natriuretic peptide (BNP) level (Acute) Atrial tachycardia, paroxysmal Syncope (Acute) 01/2024 per records Dyspnea (Acute) Shortness of breath (Acute) PAF (paroxysmal atrial fibrillation) Sinus tachycardia (Acute) Palpitation (Acute) Hypokalemia Transaminitis Elevated LFTs (Acute) Encounter for pre-operative examination CYNTHIA (obstructive sleep apnea) (Chronic) Asthma, severe persistent (Chronic) Gastroparesis (Chronic) Celiac disease (Chronic) GERD (gastroesophageal reflux disease) (Chronic) IBS (irritable bowel syndrome) (Chronic) Hypothyroidism (Chronic) no current medication -- TSH normal without meds. CHARLES (iron deficiency anemia) (Chronic) ferrous sulfate QID. Dyslipidemia (Chronic) MRSA (methicillin resistant Staphylococcus aureus) (Chronic) 1999 dx nose septum wound 2019 dx in lungs Medical History Flank pain Acute UTI (urinary tract infection) Elevated troponin NSVT (nonsustained ventricular tachycardia) - hx of nonsustained VT (isolated run on Zio without associated symptoms per cardio); intolerance to beta blockers Renal cyst per medical record, pt unsure Depression Port-A-Cath in place Bilateral hydronephrosis Chronic kidney disease stage 3 or 4 - follows with [facility] Nephrology Sari fish Hx of gastric ulcer Chronic gastritis GERD (gastroesophageal reflux disease) Migraines Chronic nausea Seasonal allergies Hypothyroidism Paroxysmal A-fib - follows with Dr. Aguirre, takes asa daily (not anticoagulated due to anemia and fall risk per cardio records ) - patient referred at last cardio appt 10/2024 for evaluation for left appendage occluder device Celiac disease Hx of renal calculi no surgical intervention needed Poor intravenous access PSVT (paroxysmal supraventricular tachycardia) - no current issues per patient Hx MRSA infection 1999 dx nose septum wound 2019 dx in lungs Gastroparesis IBS (irritable bowel syndrome) Dyslipidemia CHARLES (iron deficiency anemia) History of COVID-19 has had ~5 times - last had ~early 2023, no hospitalization. Orthostatic hypotension Follows with [facility] cardiology On midodrine Chronic anemia frequent iron and blood transfusions. Hypertension hx --> pt reports she is being treated for hypotension Adrenal cyst monitoring unchanged per 2024 imaging; benign per PCP Chronic back pain Degenerative disc disease Osteoarthritis Anxiety Mitral valve prolapse follows with Dr Aguirre Narcolepsy Chronic obstructive pulmonary disease uncontrolled, uses inhalers daily Sleep apnea CPAP + 2lpm of oxygen Surgical History H/O insertion of central venous access port power port placed due to poor IV access + frequent blood draws/iron/blood transfusions S/P spinal fusion C1 through L3 or L4 (~2021 at [facility]) History of cardioversion ~2019 History of cardiac radiofrequency ablation ~2014 [facility] History of bronchoscopy in the S/P trigger finger release right hand History of ankle surgery bilateral ankle repair with hardware H/O hand surgery with hardware (left) S/P GLENNY-BSO S/P surgery on nasal septum "collapsed septum" s/p post op infection that "ate away the septum" S/P nasal surgery multiple Hx of cholecystectomy History of arthroscopic knee surgery left Hx of cardiac cath "2009 - normal coronaries" (pt denies) History of esophagogastroduodenoscopy (EGD) History of colonoscopy History of dilatation and curettage Family History Other No family history of adverse response to anesthesia Social History (System 06/15/25 @ 07:16 by Dana Fry) Smoking Status: Never smoker Second Hand Exposure: No; Do You Dip or Chew Tobacco: No; Hx Alcohol Use: No Hx Substance Use: No Preferred Language: Greenlandic Communication Ability: Effective Sink Cutter Required: No Beliefs That Will Affect Care: None marital status: Current Living Situation: Spouse and Family Current Living Situation Comment: 4yr old twins at home Feels Safe at Home: Yes Assistive Devices: CPAP, Denture - Upper and Oxygen - at Night Review of Systems Review of Systems: As per HPI, all other systems reviewed and negative Physical Exam Physical Exam: GENERAL: uncomfortable, ill-appearing, no respiratory distress SKIN: Pallor, warm HEENT: Pale palpebral conjunctivae, no ptosis, dry buccal mucosa NECK : Supple, no tenderness CHEST : Decreased breath sounds, scattered expiratory wheezes, no tenderness HEART : RRR, no obvious murmurs ABDOMEN: Some distention, hypogastric tenderness EXTREMITIES : No LE swelling, no LE tenderness, no other conspicuous deformities noted NEUROLOGIC : Coherent, no facial asymmetry, no other gross focality Results & Data Results & Data Vital Signs (Past 12 Hours) Vital Signs Temp Pulse Pulse Resp BP BP Pulse Ox 06/14/25 22:00 90 17 152/99 H 92 06/14/25 20:41 97 H 06/14/25 20:10 103 H 18 163/107 H 96 06/14/25 17:15 36.9 C 96 H 19 142/118 H 98 O2 Del Method 06/14/25 22:00 Room Air 06/14/25 20:41 06/14/25 20:10 Room Air 06/14/25 17:15 Room Air Laboratory Results Laboratory Results WBC 12.95 K/ul (4.8-10.8) H 06/14/25 18:20 RBC 3.27 M/uL (4.20-5.40) L 06/14/25 18:20 Hgb 9.9 g/dL (12.0-16.0) L 06/14/25 18:20 Hct 31.3 % (37.0-47.0) L 06/14/25 18:20 MCV 95.7 fL (80.0-100.0) 06/14/25 18:20 MCH 30.3 pg (25.0-34.0) 06/14/25 18:20 MCHC 31.6 g/dL (32.0-36.0) L 06/14/25 18:20 RDW Std Deviation 56.9 fL (36.4-46.3) H 06/14/25 18:20 RDW Coeff of Reginaldo 16.2 % (11.5-14.5) H 06/14/25 18:20 Plt Count 427 K/uL (130-400) H 06/14/25 18:20 MPV 8.9 fL (9.4-12.4) L 06/14/25 18:20 Immature Gran % (Auto) 0.5 % 06/14/25 18:20 Neut % (Auto) 78.2 % 06/14/25 18:20 Lymph % (Auto) 12.4 % 06/14/25 18:20 [place] % (Auto) 8.0 % 06/14/25 18:20 Eos % (Auto) 0.6 % 06/14/25 18:20 Baso % (Auto) 0.3 % 06/14/25 18:20 Neut # (Auto) 10.14 K/uL (1.40-6.50) H 06/14/25 18:20 Lymph # (Auto) 1.60 K/uL (1.20-3.40) 06/14/25 18:20 [place] # (Auto) 1.03 K/uL (0.11-0.59) H 06/14/25 18:20 Eos # (Auto) 0.08 K/uL (0.00-0.50) 06/14/25 18:20 Baso # (Auto) 0.04 K/uL (0.00-0.20) 06/14/25 18:20 Immature Gran # (Auto) 0.06 K/uL (0.01-0.20) 06/14/25 18:20 Sodium 138 mmol/L (136-145) 06/14/25 18:20 Potassium 4.3 mmol/L (3.5-5.1) 06/14/25 18:20 Chloride 108 mmol/L (98-107) H 06/14/25 18:20 Carbon Dioxide 22 mmol/L (21-32) 06/14/25 18:20 Anion Gap 8 (3-11) 06/14/25 18:20 BUN 32 mg/dl (6-23) H 06/14/25 18:20 Creatinine 1.19 mg/dl (0.6-1.2) 06/14/25 18:20 Est Cr Clr Drug Dosing 40.3 ml/min 06/14/25 18:20 eGFR 51.38 06/14/25 18:20 BUN/Creatinine Ratio 26.9 (10-20) H 06/14/25 18:20 Glucose 101 mg/dl (70-99(Fasting)) H 06/14/25 18:20 Lactate 0.7 mmol/L (0.4-2.0) 06/14/25 21:00 Calcium 8.7 mg/dl (8.6-10.3) 06/14/25 18:20 Magnesium 2.1 mg/dl (1.7-2.4) 06/14/25 18:20 Total Bilirubin 0.2 mg/dl (0.2-1.0) 06/14/25 18:20 AST 16 U/L (13-39) 06/14/25 18:20 ALT 15 U/L (7-52) 06/14/25 18:20 Alkaline Phosphatase 118 U/L (34-104) H 06/14/25 18:20 Total Protein 7.0 gm/dl (6.0-8.3) 06/14/25 18:20 Albumin 3.1 gm/dl (3.4-5.0) L 06/14/25 18:20 Globulin 3.9 gm/dl (2.5-4.0) 06/14/25 18:20 Albumin/Globulin Ratio 0.8 (0.9-2) L 06/14/25 18:20 Procalcitonin 0.22 ng/ml (0-0.5) 06/14/25 18:20 Urine Color Yellow 06/14/25 19:45 Urine Appearance Turbid (Clear) A 06/14/25 19:45 Urine pH 5.5 (4.5-7.5) 06/14/25 19:45 Ur Specific [place] 1.011 (1.000-1.030) 06/14/25 19:45 Urine Protein 1+ (Negative) H 06/14/25 19:45 Urine Glucose (UA) Negative (Negative) 06/14/25 19:45 Urine Ketones Negative (Negative) 06/14/25 19:45 Urine Blood 3+ (Negative) H 06/14/25 19:45 Urine Nitrite Negative (Negative) 06/14/25 19:45 Urine Bilirubin Negative (Negative) 06/14/25 19:45 Urine Urobilinogen Negative (Negative) 06/14/25 19:45 Ur Leukocyte Esterase 3+ (Negative) H 06/14/25 19:45 Urine WBC (Auto) >50 /hpf (0-5) H 06/14/25 19:45 Urine RBC (Auto) >20 /hpf (0-2) H 06/14/25 19:45 U Hyaline Cast (Auto) 0-2 /lpf (0-2) 06/14/25 19:45 U Epithel Cells (Auto) 3-5 /hpf (0-2) H 06/14/25 19:45 Urine Bacteria (Auto) 2+ (None Seen) H 06/14/25 19:45 Urine Yeast Present (None Prsent) A 06/14/25 19:45 Urine Comment 06/14/25 19:45 SARS-CoV-2 (PCR) NEGATIVE (Negative) 06/14/25 18:20 Influenza Type A (PCR) Negative (Neg) 06/14/25 18:20 Influenza Type B (PCR) Negative (Neg) 06/14/25 18:20 RSV (RT-PCR) Negative (Neg) 06/14/25 18:20 Impressions Chest X-Ray 06/14/25 17:17 Chest radiograph, one view History: Chest pain Comparison: None Findings: Single AP view of the chest performed. No focal consolidation or pleural effusion. No pneumothorax. Right chest wall port with catheter tip at the lower SVC. Chronic left rib deformity is seen. The cardiomediastinal silhouette is within normal limits. Normal pulmonary vascularity. No evidence for lymphadenopathy. No visualized bony or soft tissue abnormality. Impression: Normal chest radiograph Electronically signed by Lai Gimenez 06-14-2025 5:48 PM Abdomen/Pelvis CT 06/14/25 20:30 Exam(s): CT ABDOMEN + PELVIS With Contrast IV Amt: 90 ml optiray 320 EXAM: CT Abdomen and Pelvis With Intravenous Contrast CLINICAL HISTORY: Reason for exam: complicated UTI, sepsis, known stents. TECHNIQUE: Axial computed tomography images of the abdomen and pelvis with intravenous contrast. Automated exposure control was utilized for the study. A dose lowering technique was utilized adhering to the principles of ALARA. CONTRAST: Patient received 90 ml optiray 320 of IV contrast COMPARISON: None available. FINDINGS: Lung bases: Clear. Liver: Mild intrahepatic ductal dilatation, nonspecific, probable biliary ectasia relating to cholecystectomy. Gallbladder and bile ducts: Cholecystectomy. No ductal dilation. Pancreas: No ductal dilation, or acute pancreatitis. Spleen: Unremarkable. Adrenals: 3 x 2.1 x 2.6 cm left adrenal nodule. Kidneys and ureters: Severe left and moderate right hydronephrosis, in spite of bilateral ureteral stents. Mildly prominent and wall enhancing right ureter. Mild wall enhancement left renal pelvis. Cannot rule out underlying pyelitis. There is no stone along the course of the stents, though stent failure bilaterally may be present. There is a mass in the left lower pole kidney measuring 2.5 x 1.9 x 1.4 cm, nonspecific, may be inflammatory/infectious, such as phlegmon, though neoplasm must be excluded. Stomach and bowel: Intermittent small bowel fluid is nonspecific, may be postprandial, can not rule out mild gastroenteritis or ileus. Moderate fecal loading of the colon. No diverticulosis, diverticulitis or bowel obstruction. Appendix: Normal. Intraperitoneal space: No free air or fluid. Bones/joints: No acute fracture. Soft tissues: Unremarkable. Vasculature: No aortic aneurysm. Lymph nodes: No enlarged lymph nodes. Bladder: Collapsed with bilateral ureteral stents. Reproductive: Unremarkable as visualized. IMPRESSION: 1. Bilateral urothelial enhancement and hydronephrosis, in spite of ureteral stents. Findings are nonspecific, cannot rule out underlying infection or blocked stents. 2. 2.5 cm left lower pole renal mass, possible phlegmon, neoplasm must be excluded. 3. Small bowel fluid is nonspecific, consider gastroenteritis or ileus, though this may be postprandial. Electronically signed by: Johana Montiel M.D. 06/14/25 23:39 PM Diagnostic Findings EKG as per my interpretation :Rate 100, NSR, LAD, LAFB, LVH, no ischemia
[2025-06-15] MEDS ORDERED: PROMETHAZINE 6.25 MG/50.25 ML BAG IV PRN (01:36)
[2025-06-15] MEDS: TOPIRAMATE 100 MG TAB PO STA (02:01)
[2025-06-15] MEDS: AZITHROMYCIN 250 MG TAB PO STA (02:01)
[2025-06-15] MEDS: FAMOTIDINE 20 MG TAB PO STA (02:01)
[2025-06-15] MEDS: METOPROLOL SUCC 25MG EXT REL TAB PO STA (02:03)
[2025-06-15] MEDS: CEFEPIME 2000MG 2,000 MG/20 ML SYR IV STA (02:07)
[2025-06-15] MEDS: LEVALBUTEROL 1.25 MG/3 ML NEB NEB STA (02:23)
[2025-06-15] MEDS: IPRATROPIUM BROMIDE NEB SOLN 0.02% 0.5MG/2.5ML VIAL INH STA (02:23)
[2025-06-15] MEDS: FLUCONAZOLE 200 MG/100 ML BAG IV STA (02:24)
[2025-06-15] MEDS: MoRPHine SULFATE 2 MG/ML CARP IV PRN (02:29)
--- NOTE | 2025-06-15 03:05 | CT Scan Report ---
EXAM: CT chest diagnostic wo con CLINICAL HISTORY: cough TECHNIQUE: Contiguous axial images were obtained from the neck base through the upper abdomen without contrast. In addition, sagittal and coronal reconstructions were performed to potentially increase the sensitivity for the detection of disease. CT scan was performed according to ALARA (as low as reasonably achievable). COMPARISON: None. FINDINGS: Clusters of few centrilobular nodular infiltrates are noted involving superior segment of left upper lobe - possibility of infective etiology/bronchiolitis likely. Diffuse ground-glass hase with subpleural atelectasis are noted involving dependent portion of both lower lobes - suggest possibility of due to insufficient inspiration. The central airways are patent. There are no pleural effusions. No pneumothorax is seen. Evaluation of the mediastinum and griselda is limited due to the lack of intravenous contrast. No axillary or mediastinal adenopathy is identified. The thyroid is unremarkable. The heart, aorta, and pulmonary arteries are of normal size and configuration. There are no appreciable coronary artery and aortic atherosclerotic calcifications. No pericardial effusion is identified. Imaged portions of the upper abdomen are unremarkable. No aggressive appearing osseous lesions are identified. IMPRESSION: Clusters of few centrilobular nodular infiltrates are noted involving superior segment of left upper lobe - possibility of infective etiology/bronchiolitis likely. Diffuse ground-glass hase with subpleural atelectasis are noted involving dependent portion of both lower lobes - suggest possibility of due to insufficient inspiration. Electronically signed by Christiano Nickerson 06-15-2025 03:05 AM
[2025-06-15] MEDS: SUCRALFATE 1 GM TAB PO STA (03:30)
[2025-06-15 05:21] LABS: Hematocrit (blood only) 28.7 % (37.0-47.0); Hemoglobin 9.1 g/dL (12.0-16.0); Mean Corpuscular Hemoglobin 30.3 pg (25.0-34.0); Mean Corpuscular Volume 95.7 fL (80.0-100.0); Platelet Count 404 K/uL (130-400); RDW Standard Deviation 56.8 fL (36.4-46.3); Red Blood Count 3.00 M/uL (4.20-5.40); White Blood Count 12.90 K/ul (4.8-10.8)
[2025-06-15 05:38] LABS: Anion Gap 10.0 (3-11); Blood Urea Nitrogen 26.0 mg/dl (6-23); Calcium 8.4 mg/dl (8.6-10.3); Carbon Dioxide 20.0 mmol/L (21-32); Chloride 107.0 mmol/L (98-107); Creatinine Clr Calc Pharmacy 46.6 ml/min; Glucose 144.0 mg/dl (70-99(Fasting)); Potassium 3.8 mmol/L (3.5-5.1); Sodium 137.0 mmol/L (136-145)
[2025-06-15 05:41] LABS: Immature Granulocytes # (auto) 0.04 K/uL (0.01-0.20); Immature Granulocytes % (auto) 0.3 %; RBC Morphology Unremarkable
[2025-06-15] MEDS: LEVOTHYROXINE SODIUM 100 MCG TABLET PO SCH (06:34)
[2025-06-15] MEDS: LEVALBUTEROL 1.25 MG/3 ML NEB NEB SCH (07:43)
[2025-06-15] MEDS: IPRATROPIUM BROMIDE NEB SOLN 0.02% 0.5MG/2.5ML VIAL INH SCH (07:43)
[2025-06-15] MEDS: SUCRALFATE 1 GM TAB PO SCH (08:14)
[2025-06-15] MEDS: MIDODRINE HCL 2.5 MG TAB PO SCH (08:14)
[2025-06-15] MEDS: ATORVASTATIN 20 MG TAB PO SCH (08:15)
[2025-06-15] MEDS: AZELASTINE HCL 0.1% NASAL 200 SPRAYS/27,400 MCG BTL SCH (08:16)
[2025-06-15] MEDS: FLUTICASONE/VILANTEROL 100/25MCG 14 PUFFS/INHALER INH SCH (08:17)
[2025-06-15] MEDS: FAMOTIDINE 40 MG TABLET PO SCH (08:17)
[2025-06-15] MEDS: OXYBUTYNIN CHLORIDE XL 5 MG TABCR PO SCH (08:18)
[2025-06-15] MEDS: TOPIRAMATE 100 MG TAB PO SCH (08:18)
[2025-06-15] MEDS: METOPROLOL SUCC 25MG EXT REL TAB PO SCH (08:18)
[2025-06-15] MEDS: MONTELUKAST SODIUM 10 MG TABLET PO SCH (08:18)
[2025-06-15] MEDS: FEXOFENADINE HCL 180 MG TAB PO SCH (08:22)
--- NOTE | 2025-06-15 09:51 | Electrocardiogram Report ---
Test Reason : Blood Pressure : */* mmHG Vent. Rate : 98 BPM Atrial Rate : 98 BPM P-R Int : 146 ms QRS Dur : 54 ms QT Int : 344 ms P-R-T Axes : 36 -20 11 degrees QTcB Int : 439 ms Normal sinus rhythm Minimal voltage criteria for LVH, may be normal variant ( R in aVL ) Inferior infarct , age undetermined Anterior infarct , age undetermined Abnormal ECG When compared with ECG of 05-May-2025 19:09, Anterior infarct is now Present Inferior infarct is now Present Confirmed by Toni Sawyer ([id number]) on 06/15/2025 9:51:15 AM Referred By: REFERRED SELF Confirmed By: Toni Sawyer
[2025-06-15] MEDS: CEFEPIME 2000MG 2,000 MG/20 ML SYR IV SCH (10:40)
--- NOTE | 2025-06-15 13:10 | Urology Consultation ---
Date of Consultation June 15, 2025 Assessment & Plan (1) Acute UTI (urinary tract infection): (2) Ureteral stent present: (3) Hydroureteronephrosis: Plan 64yo female with bilateral ureteral stents in place admitted with suspected UTI and pneumonia. She is afebrile and hemodynamically stable at present. Labs today show WBCs 12.90, hemoglobin 9.1, creatinine 1.03. Urine and blood cultures are pending. She is on Rocephin and Zithromax for coverage of UTI and pneumonia. CT imaging reviewed - Bilateral ureteral stents are in place; There is mention of a 2.5 cm left lower pole renal mass, which could possibly be phlegmon or developing abscess/ infected cyst. No plan for intervention at this time. Continue antibiotic therapy and tailor per culture sensitivities. Continue supportive care. If she is not improving or deteriorates, may need to repeat imaging to eval for possible abscess and possible transfer for drainage if needed. If she improves and does well over the weekend, will consider possible ureteral stent removal next week (possibly Wednesday) with Dr. Williamson. Discussed with hospitalist. Urology will follow, please contact us for any question/concerns or changes in patient status. Supervising Physician Co-Signing Physician Notes Initial evaluation by Laura Hardy She was then independently evaluated by myself. I agree with above History of Present Illness Attending Physician: Chicho Salgado, History of Present Illness 64-year-old female who presented to the ED on 06/14/2025 with complaints of upper respiratory infection/symptoms and UTI symptoms with a fever. In the ED she was afebrile and hemodynamically stable. Labs showed a white count of 12.95 and creatinine 1.19. Urinalysis with 3+ blood, 3+ leukocyte esterase,>50 WBC,>20 RBC, 2+ bacteria. Urine and blood cultures collected and pending. CT abdomen pelvis showed bilateral ureteral stents in place with bilateral hydronephrosis and a possible mass in the left lower pole nonspecific but may be inflammatory/infectious such as phlegmon. CTA chest questions upper lobe p neumonia. She is admitted to medicine service. Patient is known to the urology service, follows with Dr. Williamson. She has a history of bilateral hydronephrosis and obstruction. She underwent cystoscopy with bilateral ureteral stent placement, right ureteral dilation, and left laser endopyelotomy on 03/[address] Williamson. Patient was seen at bedside today. She is awake and resting in bed on arrival. No acute distress. Has been NPO. Does report some suprapubic discomfort. Reports she is voiding without issue. Reports she had a low-grade fever at home but no fevers or chills since arrival. Reports she was to have hernia surgery and had planned to meet with her surgeon this coming Wednesday, but has rescheduled due to being in the hospital. Allergies Allergy/AdvReac Type Severity Reaction Status Date / Time bee venom protein (honey bee) Allergy Severe ANAPHYLAXIS Verified 06/15/25 07:16 coconut Allergy Severe RASH; SOB Verified 06/15/25 07:16 gluten Allergy Severe CELIAC'S Verified 06/15/25 07:16 latex Allergy Severe Anaphylaxis Verified 06/15/25 07:16 Penicillins Allergy Severe Anaphylaxis Verified 06/15/25 07:16 Sulfa (Sulfonamide Allergy Severe Anaphylaxis Verified 06/15/25 07:16 Antibiotics) ROBER Inhibitors Allergy Intermediate RASH/TACHYC Verified 06/15/25 07:16 ARDIA cefaclor Allergy Intermediate CECLOR--RASH/UPSET Verified 06/15/25 07:16 STOMACH egg Allergy Intermediate RASH & Verified 06/15/25 07:16 Bloating Influenza Virus Vaccines Allergy Intermediate rash and Verified 06/15/25 07:16 bloating tetracycline Allergy Intermediate NAUSEA/VOMI Verified 06/15/25 07:16 TING/RASH Tetracyclines Allergy Intermediate RASH/NAUSEA Verified 06/15/25 07:16 /VOMITING Quinolones Allergy Unknown ALLERGY TO Verified 06/15/25 07:16 AVELOX ,CAN TAKE CIPRO OR LEVAQUIN W/O RXN Beta-Blockers AdvReac Intermediate intolerance Verified 06/15/25 07:16 (Beta-Adrenergic Bloc as per records lactose AdvReac Intermediate BLOATING; Verified 06/15/25 07:16 DIARRHEA; VOMITING dextran sulfate AdvReac Unknown TOLERATED Verified 06/15/25 07:16 VENOFER 04/2022 Home Medications Medication Instructions Recorded Confirmed Type aspirin 81 mg tablet,delayed 81 mg PO QAM 09/14/24 05/22/25 History release atorvastatin 20 mg tablet 20 mg PO HS 09/14/24 05/22/25 History fexofenadine 180 mg tablet 180 mg PO QAM 09/14/24 05/22/25 History fluticasone 250 mcg-salmeterol 50 1 inh inhalation AMHS 09/14/24 05/22/25 History mcg/dose blistr powdr for inhalation (Advair Diskus) ipratropium 20 mcg-albuterol 100 1 puff inhalation QID PRN 09/14/24 05/22/25 History mcg/actuation mist for inhalation Shortness Of Breath Or Wheezing (Combivent Respimat) montelukast 10 mg tablet 10 mg PO HS 09/14/24 05/22/25 History multivitamin 1 tab PO QAM 09/14/24 05/22/25 History rabeprazole 20 mg tablet,delayed 40 mg PO BID 09/14/24 05/22/25 History release (AcipHex) topiramate 100 mg tablet 100 mg PO BID 09/14/24 05/22/25 History CPAP Machine 09/15/24 05/05/25 History amitriptyline 75 mg tablet 75 mg PO HS 09/15/24 05/22/25 History azelastine 137 mcg (0.1 %) nasal 1 spray intranasal BID 09/15/24 05/22/25 History spray levalbuterol HCl 1.25 mg/3 mL 1.25 mg inhalation .Q4-6H PRN 09/15/24 05/22/25 History solution for nebulization Shortness Of Breath Or Wheezing ondansetron 4 mg disintegrating 4 mg PO Q8H PRN Nausea And Vomiting 09/15/24 05/22/25 History tablet polyethylene glycol 3350 17 gram 17 g PO QAM 09/15/24 05/22/25 History oral powder packet (Miralax) epinephrine 0.3 mg/0.3 mL 0.3 mg subcut UD PRN Anaphylaxis 03/11/25 05/22/25 History injection, auto-injector benzonatate 100 mg capsule 100 mg PO TID PRN Cough 05/05/25 05/22/25 History ergocalciferol (vitamin D2) 1,250 1,250 mcg PO WK 05/05/25 05/22/25 History mcg (50,000 unit) capsule oxybutynin chloride 5 mg 5 mg PO QAM 05/05/25 05/22/25 History tablet,extended release 24 hr phenazopyridine 200 mg tablet 200 mg PO TID PRN as directed 05/05/25 05/22/25 History cimetidine 400 mg tablet 400 mg PO BID 05/22/25 05/22/25 History dexamethasone 2 mg tablet 2 mg PO DAILY #1 tab 05/22/25 05/22/25 Rx folic acid 1 mg tablet 2 mg PO DAILY 05/22/25 05/22/25 History hyoscyamine sulfate 0.375 mg 0.375 mg PO Q6H PRN Abdominal Pain 05/22/25 05/22/25 History tablet,extended release,12 hr levothyroxine 100 mcg capsule 100 mcg PO DAILY 05/22/25 05/22/25 History metoprolol succinate 25 mg 25 mg PO DAILY 05/22/25 History tablet,extended release 24 hr midodrine 5 mg tablet 5 mg PO TID 05/22/25 History sucralfate 1 gram tablet 1 g PO QID 05/22/25 05/22/25 History amitriptyline 75 mg tablet 75 mg PO HS 06/14/25 06/14/25 History atorvastatin 20 mg tablet 20 mg PO QAM 06/14/25 06/14/25 History azelastine 137 mcg (0.1 %) nasal 1 spray intranasal BID 06/14/25 06/14/25 History spray cimetidine 400 mg tablet 400 mg PO BID 06/14/25 06/14/25 History epinephrine 0.3 mg/0.3 mL 0.3 mg IM DIRECTED PRN Allergic 06/14/25 06/14/25 History injection, auto-injector (EpiPen) Reaction fexofenadine 180 mg tablet 180 mg PO DAILY 06/14/25 06/14/25 History fluticasone 250 mcg-salmeterol 50 1 inh inhalation DAILY 06/14/25 06/14/25 History mcg/dose blistr powdr for inhalation (Advair Diskus) hyoscyamine sulfate 0.375 mg 0.375 mg PO Q6H PRN ABD PAIN 06/14/25 06/14/25 History tablet,extended release,12 hr ipratropium 20 mcg-albuterol 100 1 puff inhalation QID PRN NEEDED 06/14/25 06/14/25 History mcg/actuation mist for inhalation (Combivent Respimat) levalbuterol HCl 1.25 mg/3 mL 1.25 mg inhalation QID PRN 06/14/25 06/14/25 History solution for nebulization Shortness Of Breath Or Wheezing levothyroxine 100 mcg tablet 100 mcg PO DAILYBB 06/14/25 06/14/25 History metoprolol succinate 25 mg 25 mg PO BID 06/14/25 06/14/25 History tablet,extended release 24 hr midodrine 5 mg tablet 5 mg PO TID 06/14/25 06/14/25 History montelukast 10 mg tablet 10 mg PO QAM 06/14/25 06/14/25 History ondansetron 4 mg disintegrating 4 mg PO Q8H PRN NAUSEA/VOMITING 06/14/25 06/14/25 History tablet oxybutynin chloride 5 mg 5 mg PO QAM 06/14/25 06/14/25 History tablet,extended release 24 hr phenazopyridine 200 mg tablet 200 mg PO TID PRN BLADDER PAIN 06/14/25 06/14/25 History rabeprazole 20 mg tablet,delayed 40 mg PO BID 06/14/25 06/14/25 History release sucralfate 1 gram tablet (Carafate) 1 g PO ACHS 06/14/25 06/14/25 History topiramate 100 mg tablet 100 mg PO BID 06/14/25 06/14/25 History Patient History Medical History Flank pain Acute UTI (urinary tract infection) Elevated troponin NSVT (nonsustained ventricular tachycardia) - hx of nonsustained VT (isolated run on Zio without associated symptoms per cardio); intolerance to beta blockers Renal cyst per medical record, pt unsure Depression Port-A-Cath in place Bilateral hydronephrosis Chronic kidney disease stage 3 or 4 - follows with [facility] Nephrology Sari fish Hx of gastric ulcer Chronic gastritis GERD (gastroesophageal reflux disease) Migraines Chronic nausea Seasonal allergies Hypothyroidism Paroxysmal A-fib - follows with Dr. Aguirre, takes asa daily (not anticoagulated due to anemia and fall risk per cardio records ) - patient referred at last cardio appt 10/2024 for evaluation for left appendage occluder device Celiac disease Hx of renal calculi no surgical intervention needed Poor intravenous access PSVT (paroxysmal supraventricular tachycardia) - no current issues per patient Hx MRSA infection 1999 dx nose septum wound 2019 dx in lungs Gastroparesis IBS (irritable bowel syndrome) Dyslipidemia CHARLES (iron deficiency anemia) History of COVID-19 has had ~5 times - last had ~early 2023, no hospitalization. Orthostatic hypotension Follows with [facility] cardiology On midodrine Chronic anemia frequent iron and blood transfusions. Hypertension hx --> pt reports she is being treated for hypotension Adrenal cyst monitoring unchanged per 2024 imaging; benign per PCP Chronic back pain Degenerative disc disease Osteoarthritis Anxiety Mitral valve prolapse follows with Dr Aguirre Narcolepsy Chronic obstructive pulmonary disease uncontrolled, uses inhalers daily Sleep apnea CPAP + 2lpm of oxygen Surgical History H/O insertion of central venous access port power port placed due to poor IV access + frequent blood draws/iron/blood transfusions S/P spinal fusion C1 through L3 or L4 (~2021 at [facility]) History of cardioversion ~2019 History of cardiac radiofrequency ablation ~2014 [facility] History of bronchoscopy in the S/P trigger finger release right hand History of ankle surgery bilateral ankle repair with hardware H/O hand surgery with hardware (left) S/P GLENNY-BSO S/P surgery on nasal septum "collapsed septum" s/p post op infection that "ate away the septum" S/P nasal surgery multiple Hx of cholecystectomy History of arthroscopic knee surgery left Hx of cardiac cath "2009 - normal coronaries" (pt denies) History of esophagogastroduodenoscopy (EGD) History of colonoscopy History of dilatation and curettage Family History Other No family history of adverse response to anesthesia Social History (System 06/15/25 @ 07:16 by Dana Fry) Smoking Status: Never smoker Second Hand Exposure: No; Do You Dip or Chew Tobacco: No; Hx Alcohol Use: No Hx Substance Use: No Preferred Language: Cymraes Communication Ability: Effective Veneer Patcher Required: No Beliefs That Will Affect Care: None marital status: Current Living Situation: Spouse and Family Current Living Situation Comment: 4yr old twins at home Feels Safe at Home: Yes Assistive Devices: CPAP and Oxygen - at Night Review of Systems Review of Systems: All systems reviewed & are unremarkable except as noted in HPI & below Physical Exam Constitutional: no acute distress Respiratory: no respiratory distress and no labored breathing Musculoskeletal: Head/Neck/Chest: normocephalic Skin: No visible rashes or lesions to exposed skin areas Neurologic: awake Psychiatric: A+Ox3, euthymic affect Results & Data Vital Signs (Past 12 Hours) Vital Signs Pulse Pulse Resp BP BP Pulse Ox O2 Del Method 06/15/25 12:00 85 21 120/75 96 Room Air 06/15/25 12:00 Room Air 06/15/25 11:59 115/73 06/15/25 11:00 81 16 115/64 90 Room Air 06/15/25 10:38 68 18 96 Room Air 06/15/25 08:27 74 18 124/70 97 Room Air 06/15/25 07:43 80 18 96 Room Air 06/15/25 07:40 78 06/15/25 06:46 74 16 129/81 95 Room Air 06/15/25 04:39 99 H 18 96 Room Air 06/15/25 04:00 94 H 16 138/89 95 Room Air 06/15/25 02:00 113 H 16 150/88 H 96 Room Air PG Care Time/CCT Total # of Minutes Spent Total Time Spent with Patient: Total time spent is greater than 50% in coordination of care (as documented) at patient's floor/unit and/or counseling patient: Coding Level of Care Code 38852 IN/OBS CONSULT LVL 4,60M Diagnoses Acute UTI (urinary tract infection) N39.0 Ureteral stent present Z96.0 Hydroureteronephrosis N13.30
--- NOTE | 2025-06-15 13:43 | Hospitalist Progress Note ---
Date of Service June 15, 2025 Assessment & Plan (1) Sepsis: (2) Community acquired pneumonia: (3) Hydroureteronephrosis: (4) Left renal mass: (5) Hypothyroidism: (6) Chronic obstructive pulmonary disease: (7) PAF (paroxysmal atrial fibrillation): Plan Patient presented with symptoms as seen attributable to upper respiratory infection/pneumonia. CTA chest questions upper lobe pneumonia. Adjust antibiotics to cover for community-acquired pneumonia, Roctony and Bereket bynumax Communication with urology team. They reviewed images. Left renal mass could be potentially developing abscess. At this time no intervention. Recommend treating with antibiotics. If patient does well and significantly improves will consider possibly removing ureteral stents the beginning of next week. If patient does not improve may need to consider reimaging to determine if more development of this left renal mass findings appear more like an abscess that may need drainage Follow urine and blood cultures Continue other outpatient medications as prescribed Antitussives and mucolytics Admission and Anticipated Discharge Date Admission Date: June 14, 2025 Subjective Patient starting to feel little bit better. Physical Exam Physical Exam: Constitutional: Alert, nontoxic, no acute distress HEENT: Mucous membranes moist. Lungs: Decreased breath sounds, coarse CV: S1-S2, regular Abdomen: Soft, nontender, nondistended Extremities: No significant edema Neuro: No focal deficits Psych: Cooperative, normal mood Results & Data Results & Data Vital Signs (Past 12 Hours) Vital Signs Pulse Pulse Resp BP BP Pulse Ox O2 Del Method 06/15/25 13:33 89 L Room Air 06/15/25 12:00 85 21 120/75 96 Room Air 06/15/25 12:00 Room Air 06/15/25 11:59 115/73 06/15/25 11:00 81 16 115/64 90 Room Air 06/15/25 10:38 68 18 96 Room Air 06/15/25 08:27 74 18 124/70 97 Room Air 06/15/25 07:43 80 18 96 Room Air 06/15/25 07:40 78 06/15/25 06:46 74 16 129/81 95 Room Air 06/15/25 04:39 99 H 18 96 Room Air 06/15/25 04:00 94 H 16 138/89 95 Room Air 06/15/25 02:00 113 H 16 150/88 H 96 Room Air O2 Flow Rate 06/15/25 13:33 0 06/15/25 12:00 06/15/25 12:00 06/15/25 11:59 06/15/25 11:00 06/15/25 10:38 06/15/25 08:27 06/15/25 07:43 06/15/25 07:40 06/15/25 06:46 06/15/25 04:39 06/15/25 04:00 06/15/25 02:00 Diagnostic Findings Reviewed imaging, laboratory and diagnostic studies. Pertinent findings as below. Last urine culture from April 2025 grew Naya, this is most likely colonization, low suspicion for pathologic process at this time Urine culture from 06/14/2025, no growth less than of thousand colonies at this time
[2025-06-15] MEDS: guaiFENesin 600 MG TABCR PO SCH (14:29)
[2025-06-15] MEDS: AMITRIPTYLINE HCL 25 MG TAB PO SCH (20:42)
[2025-06-15] MEDS: cefTRIAXone SODIUM 2,000 MG/50 ML BAG IV SCH (21:42)
[2025-06-15] MEDS ORDERED: CEFEPIME 2000MG 2,000 MG/20 ML SYR IV SCH (22:00)
[2025-06-16] MEDS ORDERED: HEPARIN 100 UNIT/ML 5ML FLUSH FLUSH PRN (03:18)
[2025-06-16 06:21] LABS: Hematocrit (blood only) 30.4 % (37.0-47.0); Hemoglobin 9.1 g/dL (12.0-16.0); Mean Corpuscular Hemoglobin 29.4 pg (25.0-34.0); Mean Corpuscular Volume 98.4 fL (80.0-100.0); Platelet Count 430 K/uL (130-400); RDW Standard Deviation 58.1 fL (36.4-46.3); Red Blood Count 3.09 M/uL (4.20-5.40); White Blood Count 16.09 K/ul (4.8-10.8)
[2025-06-16 06:43] LABS: Anion Gap 9.0 (3-11); Blood Urea Nitrogen 27.0 mg/dl (6-23); Calcium 9.1 mg/dl (8.6-10.3); Carbon Dioxide 23.0 mmol/L (21-32); Chloride 109.0 mmol/L (98-107); Creatinine Clr Calc Pharmacy 42.1 ml/min; Glucose 109.0 mg/dl (70-99(Fasting)); Potassium 4.4 mmol/L (3.5-5.1); Sodium 141.0 mmol/L (136-145)
[2025-06-16] MEDS: predniSONE 20 MG TAB PO SCH (08:04)
[2025-06-16] MEDS: AZITHROMYCIN 250 MG TAB PO SCH (08:06)
[2025-06-16] MEDS ORDERED: FLUCONAZOLE 100 MG TAB PO SCH (09:00)
--- NOTE | 2025-06-16 10:54 | Urology Progress Note ---
Date of Service June 16, 2025 Assessment & Plan (1) Complicated urinary tract infection: (2) Ureteral stent present: Plan Combination of respiratory and urinary infections Question of possible developing abscess within the left kidney Given her lack of fevers or chills, I do not see any reason to repeat imaging right now As long as she continues to progress appropriately from a clinical standpoint I think you can avoid any acute reimaging She will require an extended course of antibiotics from a kidney standpoint, I presume as well from a lung standpoint No plan for any intervention for us right now presuming she continues to improve clinically Although her white count did increase today, her vitals have improved and I suspect that this leukocytosis is lagging behind her clinical condition Will continue to follow from a distance but please call us if further issues arise Admission and Anticipated Discharge Date Admission Date: June 14, 2025 Subjective Subjectively reports that she is much better today Not quite back to baseline but certainly far improved from where she was on on arrival Pain is present but decreasing No fevers or chills overnight Results & Data Vital Signs (Past 12 Hours) Vital Signs Temp Pulse Resp BP Pulse Ox O2 Del Method O2 Flow Rate 06/16/25 08:00 Room Air 06/16/25 07:15 80 18 99 Nasal Cannula 2 06/16/25 07:00 36.8 C 67 16 107/63 95 Room Air PG Care Time/CCT Total # of Minutes Spent Total Time Spent with Patient: Total time spent is greater than 50% in coordination of care (as documented) at patient's floor/unit and/or counseling patient: Coding Level of Care Code 96548 SUB INP/OBS CARE 2/35MIN Diagnoses Complicated urinary tract infection N39.0 Ureteral stent present Z96.0
--- NOTE | 2025-06-16 14:28 | Hospitalist Progress Note ---
Date of Service June 16, 2025 Assessment & Plan (1) Sepsis: (2) Community acquired pneumonia: (3) Hydroureteronephrosis: (4) Left renal mass: (5) Hypothyroidism: (6) Chronic obstructive pulmonary disease: (7) PAF (paroxysmal atrial fibrillation): Plan Ms Hackett is a 64 year old woman with PMHx significant for valvular heart disease (moderate TR and mild MR), h/o idiopathic cardiac arrest/VT, PAF (not on anticoagulation due to fall risk and anemia as per records), orthostatic hypotension on midodrine, hypertension, hyperlipidemia with h/o statin intolerance, asthma/COPD, CYNTHIA/narcolepsy on CPAP, urolithiasis, hydronephrosis, celiac disease, PUD/GERD, irritable bowel syndrome, pancreas divisum, chronic anemia (baseline hemoglobin of 10-11), left adrenal tumor as per records, hypothyroidism, RLS, endometriosis/PCOS, h/o MRSA and migraines admitted for evaluation of worsening cough and dysuria. Patient being treated for UTI and pneumonia at this time, with looming concern of possible renal abscess in left kidney; however, patient has remained afebrile at this time and improving clinically. #Acute URI possible superimposed CAP #COPD exacerbation continue home inhalers declines Tessalon pearles at this time continue mucinex bid continue CTX/azithro encourage flutter valve continue steroids #Abnormal CTAP #History of recurrent UTIS #Bilateral hydronephrosis with ureteral stents area of inflammation/plegmon noted on left kidney on admission CT, stable since admission with clinical improvement steroids likely eitology of recent increase in WBC at this time, as afebrile continue abx as above hold on repeat imaging at this time Urology following: plan to follow on side at this time. plan for extended course of abx #History of diffuse gastritis and celiac disease continue ppi bid #History of idiopathic cardiac arrest/VT continue metoprolol bid #chronic CHARLES and folic acid deficiency anemia anemia stable at this time #PAF Not on anticoagulation due to fall risk/anemia per records. Remains rate-controlled, continue BB. #History of orthostatic hypotension continue midodrine. Other chronic medical conditions: HLD - Continue statin. Hypothyroidism - TSH WNL as of 03/2025, continue levothyroxine. Migraines - Continue topiramate, amitriptyline. DVT Prophylaxis: heparin sq Code Status: FULL CODE Admission and Anticipated Discharge Date Admission Date: June 14, 2025 Subjective evaluated at bedside, reports subjective improvement, but still feels tight in her breathing mostly irritated by cough and declines Tessalon pearles as those have not worked for her previously Reports improvement in flank pain and dysuria Physical Exam Constitutional: WD/WN, vitals as above Respiratory: shrill cough, diffuse expiratory wheezes Gastrointestinal (Abdomen): normal bowel sounds, soft, nontender, no hepatosplenomegaly Results & Data Results & Data Vital Signs (Past 12 Hours) Vital Signs Temp Pulse Resp BP Pulse Ox O2 Del Method O2 Flow Rate 06/16/25 12:29 64 104/64 06/16/25 11:14 74 16 94 Room Air 06/16/25 08:00 Room Air 06/16/25 07:15 80 18 99 Nasal Cannula 2 06/16/25 07:00 36.8 C 67 16 107/63 95 Room Air Laboratory Results Short CBC 06/16/25 Range/Units 05:50 WBC 16.09 H (4.8-10.8) K/ul Hgb 9.1 L (12.0-16.0) g/dL Hct 30.4 L (37.0-47.0) % Plt Count 430 H (130-400) K/uL BMP 06/16/25 05:50 Sodium 141 Potassium 4.4 Chloride 109 H Carbon Dioxide 23 BUN 27 H Creatinine 1.14 Glucose 109 H Calcium 9.1 Medications Administered Home Medications Medication Instructions Recorded Confirmed Last Taken aspirin 81 mg tablet,delayed 81 mg PO QAM 09/14/24 05/22/25 05/05/25 release atorvastatin 20 mg tablet 20 mg PO HS 09/14/24 05/22/25 05/04/25 fexofenadine 180 mg tablet 180 mg PO QAM 09/14/24 05/22/25 05/05/25 fluticasone 250 mcg-salmeterol 50 1 inh inhalation AMHS 09/14/24 05/22/25 05/05/25 mcg/dose blistr powdr for am inhalation (Advair Diskus) ipratropium 20 mcg-albuterol 100 1 puff inhalation QID PRN 09/14/24 05/22/25 03/07/25 12:00 mcg/actuation mist for inhalation Shortness Of Breath Or Wheezing (Combivent Respimat) montelukast 10 mg tablet 10 mg PO HS 09/14/24 05/22/25 05/04/25 multivitamin 1 tab PO QAM 09/14/24 05/22/25 05/05/25 rabeprazole 20 mg tablet,delayed 40 mg PO BID 09/14/24 05/22/25 05/05/25 release (AcipHex) am topiramate 100 mg tablet 100 mg PO BID 09/14/24 05/22/25 05/05/25 am CPAP Machine 09/15/24 05/05/25 Unknown amitriptyline 75 mg tablet 75 mg PO HS 09/15/24 05/22/25 05/04/25 azelastine 137 mcg (0.1 %) nasal 1 spray intranasal BID 09/15/24 05/22/25 05/05/25 spray am levalbuterol HCl 1.25 mg/3 mL 1.25 mg inhalation .Q4-6H PRN 09/15/24 05/22/25 03/27/25 solution for nebulization Shortness Of Breath Or Wheezing ondansetron 4 mg disintegrating 4 mg PO Q8H PRN Nausea And Vomiting 09/15/24 05/22/25 03/07/25 08:00 tablet polyethylene glycol 3350 17 gram 17 g PO QAM 09/15/24 05/22/25 05/05/25 oral powder packet (Miralax) epinephrine 0.3 mg/0.3 mL 0.3 mg subcut UD PRN Anaphylaxis 03/11/25 05/22/25 Unknown injection, auto-injector benzonatate 100 mg capsule 100 mg PO TID PRN Cough 05/05/25 05/22/25 Unknown ergocalciferol (vitamin D2) 1,250 1,250 mcg PO WK 05/05/25 05/22/25 04/30/25 mcg (50,000 unit) capsule oxybutynin chloride 5 mg 5 mg PO QAM 05/05/25 05/22/25 05/05/25 tablet,extended release 24 hr phenazopyridine 200 mg tablet 200 mg PO TID PRN as directed 05/05/25 05/22/25 Unknown cimetidine 400 mg tablet 400 mg PO BID 05/22/25 05/22/25 Unknown dexamethasone 2 mg tablet 2 mg PO DAILY #1 tab 05/22/25 05/22/25 Unknown folic acid 1 mg tablet 2 mg PO DAILY 05/22/25 05/22/25 Unknown hyoscyamine sulfate 0.375 mg 0.375 mg PO Q6H PRN Abdominal Pain 05/22/25 05/22/25 Unknown tablet,extended release,12 hr levothyroxine 100 mcg capsule 100 mcg PO DAILY 05/22/25 05/22/25 Unknown metoprolol succinate 25 mg 25 mg PO DAILY 05/22/25 Unknown tablet,extended release 24 hr midodrine 5 mg tablet 5 mg PO TID 05/22/25 Unknown sucralfate 1 gram tablet 1 g PO QID 05/22/25 05/22/25 Unknown amitriptyline 75 mg tablet 75 mg PO HS 06/14/25 06/14/25 06/13/25 atorvastatin 20 mg tablet 20 mg PO QAM 06/14/25 06/14/25 06/14/25 azelastine 137 mcg (0.1 %) nasal 1 spray intranasal BID 06/14/25 06/14/25 06/14/25 08:00 spray cimetidine 400 mg tablet 400 mg PO BID 06/14/25 06/14/25 06/14/25 08:00 epinephrine 0.3 mg/0.3 mL 0.3 mg IM DIRECTED PRN Allergic 06/14/25 06/14/25 Unknown injection, auto-injector (EpiPen) Reaction fexofenadine 180 mg tablet 180 mg PO DAILY 06/14/25 06/14/25 06/14/25 fluticasone 250 mcg-salmeterol 50 1 inh inhalation DAILY 06/14/25 06/14/25 06/14/25 mcg/dose blistr powdr for inhalation (Advair Diskus) hyoscyamine sulfate 0.375 mg 0.375 mg PO Q6H PRN ABD PAIN 06/14/25 06/14/25 Unknown tablet,extended release,12 hr ipratropium 20 mcg-albuterol 100 1 puff inhalation QID PRN NEEDED 06/14/25 06/14/25 Unknown mcg/actuation mist for inhalation (Combivent Respimat) levalbuterol HCl 1.25 mg/3 mL 1.25 mg inhalation QID PRN 06/14/25 06/14/25 Unknown solution for nebulization Shortness Of Breath Or Wheezing levothyroxine 100 mcg tablet 100 mcg PO DAILYBB 06/14/25 06/14/25 06/14/25 metoprolol succinate 25 mg 25 mg PO BID 06/14/25 06/14/25 06/14/25 08:00 tablet,extended release 24 hr midodrine 5 mg tablet 5 mg PO TID 06/14/25 06/14/25 06/14/25 08:00 montelukast 10 mg tablet 10 mg PO QAM 06/14/25 06/14/25 06/14/25 ondansetron 4 mg disintegrating 4 mg PO Q8H PRN NAUSEA/VOMITING 06/14/25 06/14/25 Unknown tablet oxybutynin chloride 5 mg 5 mg PO QAM 06/14/25 06/14/25 06/14/25 tablet,extended release 24 hr phenazopyridine 200 mg tablet 200 mg PO TID PRN BLADDER PAIN 06/14/25 06/14/25 Unknown rabeprazole 20 mg tablet,delayed 40 mg PO BID 06/14/25 06/14/25 06/14/25 08:00 release sucralfate 1 gram tablet (Carafate) 1 g PO ACHS 06/14/25 06/14/25 06/14/25 12:00 topiramate 100 mg tablet 100 mg PO BID 06/14/25 06/14/25 06/14/25 08:00 Active Medications Generic Name Dose Route Start Last Admin Trade Name Freq PRN Reason Stop Dose Admin Amitriptyline HCl 75 mg 06/15/25 21:00 06/15/25 20:42 Amitriptyline Hcl 25 Mg Tab PO 07/15/25 20:59 75 mg HS JAYSHREE Administration Atorvastatin Calcium 20 mg 06/15/25 09:00 06/16/25 08:04 Atorvastatin 20 Mg Tab PO 07/15/25 08:59 20 mg QAM JAYSHREE Administration Azelastine HCl 1 sprays 06/15/25 09:00 06/16/25 08:07 Azelastine Hcl 0.1% Nasal 200 Sprays/27,400 Mcg Btl NA 07/15/25 08:59 1 sprays BID JAYSHREE Administration Azithromycin 250 mg 06/16/25 09:00 06/16/25 08:06 Azithromycin 250 Mg Tab PO 06/20/25 08:59 250 mg QAM JAYSHREE Administration Famotidine 40 mg 06/15/25 09:00 06/16/25 08:05 Famotidine 40 Mg Tablet PO 07/15/25 08:59 40 mg DAILY JAYSHREE Administration Fexofenadine HCl 180 mg 06/15/25 09:00 06/16/25 08:07 Fexofenadine Hcl 180 Mg Tab PO 07/15/25 08:59 180 mg DAILY JAYSHREE Administration Fluticasone/Vilanterol 1 puffs 06/15/25 09:00 06/16/25 08:12 Fluticasone/Vilanterol 100/25mcg 14 Puffs/Inhaler INH 07/15/25 08:59 1 puffs DAILY JAYSHREE Administration Guaifenesin 600 mg 06/15/25 14:00 06/16/25 08:06 Guaifenesin 600 Mg Tabcr PO 07/15/25 13:59 600 mg Q12 JAYSHREE Administration Hydromorphone HCl 2 mg 06/15/25 01:45 06/16/25 08:36 Hydromorphone Hcl 2 Mg Tab PO 06/29/25 01:44 2 mg QID PRN Administration Pain Ceftriaxone Sodium 2,000 mg in 50 mls @ 100 mls/hr 06/15/25 22:00 06/15/25 22:12 Rocephin IV 06/20/25 21:59 Infused Q24H JAYSHREE Infusion Ipratropium [place] 0.5 mg 06/15/25 07:00 06/16/25 11:14 Ipratropium [place] Neb Soln 0.02% 0.5mg/2.5ml Vial INH 07/15/25 06:59 0.5 mg QIDR JAYSHREE Administration Levalbuterol HCl 1.25 mg 06/15/25 07:00 06/16/25 11:14 Levalbuterol 1.25 Mg/3 Ml Neb NEB 07/15/25 06:59 1.25 mg QIDR JAYSHREE Administration Levothyroxine Sodium 100 mcg 06/15/25 06:30 06/16/25 05:43 Levothyroxine Sodium 100 Mcg Tablet PO 07/15/25 06:29 100 mcg DAILYBB JAYSHREE Administration Metoprolol Succinate 25 mg 06/15/25 09:00 06/16/25 08:04 Metoprolol Succ 25mg Ext Rel Tab PO 07/15/25 08:59 25 mg BID JAYSHREE Administration Midodrine 5 mg 06/15/25 08:00 06/16/25 12:28 Midodrine Hcl 2.5 Mg Tab PO 07/15/25 07:59 5 mg TIDM JAYSHREE Administration Montelukast Sodium 10 mg 06/15/25 09:00 06/16/25 08:06 Montelukast Sodium 10 Mg Tablet PO 07/15/25 08:59 10 mg QAM JAYSHREE Administration Oxybutynin Chloride 5 mg 06/15/25 09:00 06/16/25 08:07 Oxybutynin Chloride Xl 5 Mg Tabcr PO 07/15/25 08:59 5 mg QAM JAYSHREE Administration Pantoprazole Sodium 40 mg 06/15/25 09:00 06/16/25 08:05 Pantoprazole 40 Mg Tab PO 07/15/25 08:59 40 mg BID JAYSHREE Administration Prednisone 40 mg 06/16/25 09:00 06/16/25 08:04 Prednisone 20 Mg Tab PO 06/20/25 08:59 40 mg DAILY JAYSHREE Administration Sucralfate 1 gm 06/15/25 07:30 06/16/25 12:28 Sucralfate 1 Gm Tab PO 07/15/25 07:29 1 gm ACHS JAYSHREE Administration Topiramate 100 mg 06/15/25 09:00 06/16/25 08:06 Topiramate 100 Mg Tab PO 07/15/25 08:59 100 mg BID JAYSHREE Administration
[2025-06-16] MEDS: BENZONATATE 100 MG CAPSULE PO PRN (21:04)
[2025-06-16] MEDS ORDERED: POLYETHYLENE (MIRALAX) 17 GM PACK PO PRN (21:46)
[2025-06-16] MEDS: POLYETHYLENE (MIRALAX) 17 GM PACK PO STA (22:12)
[2025-06-17 06:09] LABS: Hematocrit (blood only) 27.7 % (37.0-47.0); Hemoglobin 8.4 g/dL (12.0-16.0); Mean Corpuscular Hemoglobin 29.6 pg (25.0-34.0); Mean Corpuscular Volume 97.5 fL (80.0-100.0); Platelet Count 406 K/uL (130-400); RDW Standard Deviation 58.5 fL (36.4-46.3); Red Blood Count 2.84 M/uL (4.20-5.40); White Blood Count 12.20 K/ul (4.8-10.8)
[2025-06-17 06:30] LABS: Anion Gap 8.0 (3-11); Blood Urea Nitrogen 22.0 mg/dl (6-23); Calcium 8.9 mg/dl (8.6-10.3); Carbon Dioxide 23.0 mmol/L (21-32); Chloride 111.0 mmol/L (98-107); Creatinine Clr Calc Pharmacy 43.9 ml/min; Glucose 87.0 mg/dl (70-99(Fasting)); Magnesium 2.2 mg/dl (1.7-2.4); Potassium 3.9 mmol/L (3.5-5.1); Sodium 142.0 mmol/L (136-145)
[2025-06-17] MEDS: PHENAZOPYRIDINE HCL 200 MG TAB PO PRN (07:56)
--- NOTE | 2025-06-17 11:46 | Hospitalist Progress Note ---
Date of Service June 17, 2025 Assessment & Plan (1) Sepsis: (2) Community acquired pneumonia: (3) Hydroureteronephrosis: (4) Left renal mass: (5) Hypothyroidism: (6) Chronic obstructive pulmonary disease: (7) PAF (paroxysmal atrial fibrillation): Plan Ms Hackett is a 64 year old woman with PMHx significant for valvular heart disease (moderate TR and mild MR), h/o idiopathic cardiac arrest/VT, PAF (not on anticoagulation due to fall risk and anemia as per records), orthostatic hypotension on midodrine, hypertension, hyperlipidemia with h/o statin intolerance, asthma/COPD, CYNTHIA/narcolepsy on CPAP, urolithiasis, hydronephrosis, celiac disease, PUD/GERD, irritable bowel syndrome, pancreas divisum, chronic anemia (baseline hemoglobin of 10-11), left adrenal tumor as per records, hypothyroidism, RLS, endometriosis/PCOS, h/o MRSA and migraines admitted for evaluation of worsening cough and dysuria. Patient being treated for UTI and pneumonia at this time, with looming concern of possible renal abscess in left kidney; however, patient has remained afebrile at this time and improving clinically. #Acute URI possible superimposed CAP #COPD exacerbation continue home inhalers declines Tessalon pearles at this time continue mucinex bid continue CTX/azithro encourage flutter valve continue steroids improving subjectively #Abnormal CTAP #History of recurrent UTIS #Bilateral hydronephrosis with ureteral stents area of inflammation/plegmon noted on left kidney on admission CT, stable since admission with clinical improvement steroids likely eitology of recent increase in WBC at this time, as afebrile continue abx as above hold on repeat imaging at this time Urology following: plan to follow on side at this time. NPO at midnight for stent removal plan for extended course of abx #History of diffuse gastritis and celiac disease continue ppi bid #History of idiopathic cardiac arrest/VT continue metoprolol bid #chronic CHARLES and folic acid deficiency anemia anemia stable at this time #PAF Not on anticoagulation due to fall risk/anemia per records. Remains rate-controlled, continue BB. #History of orthostatic hypotension continue midodrine. Other chronic medical conditions: HLD - Continue statin. Hypothyroidism - TSH WNL as of 03/2025, continue levothyroxine. Migraines - Continue topiramate, amitriptyline. DVT Prophylaxis: heparin sq Code Status: FULL CODE Admission and Anticipated Discharge Date Admission Date: June 14, 2025 Subjective Evaluated at bedside, reports significant improvement decreased frequency of cough and improved flank/back pain denies any new concerns, reports understanding that she will likely undergo stent removal in am Physical Exam Constitutional: WD/WN, vitals as above Respiratory: scattered expiratory wheeze with prolonged expiration, however less coarse breathe sounds than day prior, no O2 Results & Data Results & Data Vital Signs (Past 12 Hours) Vital Signs Temp Pulse Resp BP Pulse Ox O2 Del Method O2 Flow Rate 06/17/25 10:55 66 16 98 Room Air 06/17/25 08:00 Room Air, Nasal Cannula 06/17/25 07:53 36.6 C 85 16 111/66 99 Nasal Cannula 2 06/17/25 07:16 77 16 95 Nasal Cannula 2 Laboratory Results Short CBC 06/17/25 Range/Units 05:36 WBC 12.20 H (4.8-10.8) K/ul Hgb 8.4 L (12.0-16.0) g/dL Hct 27.7 L (37.0-47.0) % Plt Count 406 H (130-400) K/uL BMP 06/17/25 05:36 Sodium 142 Potassium 3.9 Chloride 111 H Carbon Dioxide 23 BUN 22 Creatinine 1.08 Glucose 87 Calcium 8.9 Medications Administered Home Medications Medication Instructions Recorded Confirmed Last Taken aspirin 81 mg tablet,delayed 81 mg PO QAM 09/14/24 05/22/25 05/05/25 release atorvastatin 20 mg tablet 20 mg PO 09/14/24 05/22/25 05/04/25 fexofenadine 180 mg tablet 180 mg PO QAM 09/14/24 05/22/25 05/05/25 fluticasone 250 mcg-salmeterol 50 1 inh inhalation AMHS 09/14/24 05/22/25 05/05/25 mcg/dose blistr powdr for am inhalation (Advair Diskus) ipratropium 20 mcg-albuterol 100 1 puff inhalation QID PRN 09/14/24 05/22/25 03/07/25 12:00 mcg/actuation mist for inhalation Shortness Of Breath Or Wheezing (Combivent Respimat) montelukast 10 mg tablet 10 mg PO HS 09/14/24 05/22/25 05/04/25 multivitamin 1 tab PO QAM 09/14/24 05/22/25 05/05/25 rabeprazole 20 mg tablet,delayed 40 mg PO BID 09/14/24 05/22/25 05/05/25 release (AcipHex) am topiramate 100 mg tablet 100 mg PO BID 09/14/24 05/22/25 05/05/25 am CPAP Machine 09/15/24 05/05/25 Unknown amitriptyline 75 mg tablet 75 mg PO HS 09/15/24 05/22/25 05/04/25 azelastine 137 mcg (0.1 %) nasal 1 spray intranasal BID 09/15/24 05/22/25 05/05/25 spray am levalbuterol HCl 1.25 mg/3 mL 1.25 mg inhalation .Q4-6H PRN 09/15/24 05/22/25 03/27/25 solution for nebulization Shortness Of Breath Or Wheezing ondansetron 4 mg disintegrating 4 mg PO Q8H PRN Nausea And Vomiting 09/15/24 05/22/25 03/07/25 08:00 tablet polyethylene glycol 3350 17 gram 17 g PO QAM 09/15/24 05/22/25 05/05/25 oral powder packet (Miralax) epinephrine 0.3 mg/0.3 mL 0.3 mg subcut UD PRN Anaphylaxis 03/11/25 05/22/25 Unknown injection, auto-injector benzonatate 100 mg capsule 100 mg PO TID PRN Cough 05/05/25 05/22/25 Unknown ergocalciferol (vitamin D2) 1,250 1,250 mcg PO WK 05/05/25 05/22/25 04/30/25 mcg (50,000 unit) capsule oxybutynin chloride 5 mg 5 mg PO QAM 05/05/25 05/22/25 05/05/25 tablet,extended release 24 hr phenazopyridine 200 mg tablet 200 mg PO TID PRN as directed 05/05/25 05/22/25 Unknown cimetidine 400 mg tablet 400 mg PO BID 05/22/25 05/22/25 Unknown dexamethasone 2 mg tablet 2 mg PO DAILY #1 tab 05/22/25 05/22/25 Unknown folic acid 1 mg tablet 2 mg PO DAILY 05/22/25 05/22/25 Unknown hyoscyamine sulfate 0.375 mg 0.375 mg PO Q6H PRN Abdominal Pain 05/22/25 05/22/25 Unknown tablet,extended release,12 hr levothyroxine 100 mcg capsule 100 mcg PO DAILY 05/22/25 05/22/25 Unknown metoprolol succinate 25 mg 25 mg PO DAILY 05/22/25 Unknown tablet,extended release 24 hr midodrine 5 mg tablet 5 mg PO TID 05/22/25 Unknown sucralfate 1 gram tablet 1 g PO QID 05/22/25 05/22/25 Unknown amitriptyline 75 mg tablet 75 mg PO HS 06/14/25 06/14/25 06/13/25 atorvastatin 20 mg tablet 20 mg PO QAM 06/14/25 06/14/25 06/14/25 azelastine 137 mcg (0.1 %) nasal 1 spray intranasal BID 06/14/25 06/14/25 06/14/25 08:00 spray cimetidine 400 mg tablet 400 mg PO BID 06/14/25 06/14/25 06/14/25 08:00 epinephrine 0.3 mg/0.3 mL 0.3 mg IM DIRECTED PRN Allergic 06/14/25 06/14/25 Unknown injection, auto-injector (EpiPen) Reaction fexofenadine 180 mg tablet 180 mg PO DAILY 06/14/25 06/14/25 06/14/25 fluticasone 250 mcg-salmeterol 50 1 inh inhalation DAILY 06/14/25 06/14/25 06/14/25 mcg/dose blistr powdr for inhalation (Advair Diskus) hyoscyamine sulfate 0.375 mg 0.375 mg PO Q6H PRN ABD PAIN 06/14/25 06/14/25 Unknown tablet,extended release,12 hr ipratropium 20 mcg-albuterol 100 1 puff inhalation QID PRN NEEDED 06/14/25 06/14/25 Unknown mcg/actuation mist for inhalation (Combivent Respimat) levalbuterol HCl 1.25 mg/3 mL 1.25 mg inhalation QID PRN 06/14/25 06/14/25 Un known solution for nebulization Shortness Of Breath Or Wheezing levothyroxine 100 mcg tablet 100 mcg PO DAILYBB 06/14/25 06/14/25 06/14/25 metoprolol succinate 25 mg 25 mg PO BID 06/14/25 06/14/25 06/14/25 08:00 tablet,extended release 24 hr midodrine 5 mg tablet 5 mg PO TID 06/14/25 06/14/25 06/14/25 08:00 montelukast 10 mg tablet 10 mg PO QAM 06/14/25 06/14/25 06/14/25 ondansetron 4 mg disintegrating 4 mg PO Q8H PRN NAUSEA/VOMITING 06/14/25 06/14/25 Unknown tablet oxybutynin chloride 5 mg 5 mg PO QAM 06/14/25 06/14/25 06/14/25 tablet,extended release 24 hr phenazopyridine 200 mg tablet 200 mg PO TID PRN BLADDER PAIN 06/14/25 06/14/25 Unknown rabeprazole 20 mg tablet,delayed 40 mg PO BID 06/14/25 06/14/25 06/14/25 08:00 release sucralfate 1 gram tablet (Carafate) 1 g PO ACHS 06/14/25 06/14/25 06/14/25 12:00 topiramate 100 mg tablet 100 mg PO BID 06/14/25 06/14/25 06/14/25 08:00 Active Medications Generic Name Dose Route Start Last Admin Trade Name Freq PRN Reason Stop Dose Admin Amitriptyline HCl 75 mg 06/15/25 21:00 06/16/25 20:49 Amitriptyline Hcl 25 Mg Tab PO 07/15/25 20:59 75 mg HS JAYSHREE Administration Atorvastatin Calcium 20 mg 06/15/25 09:00 06/17/25 07:53 Atorvastatin 20 Mg Tab PO 07/15/25 08:59 20 mg QAM JAYSHREE Administration Azelastine HCl 1 sprays 06/15/25 09:00 06/17/25 07:51 Azelastine Hcl 0.1% Nasal 200 Sprays/27,400 Mcg Btl NA 07/15/25 08:59 1 sprays BID JAYSHREE Administration Azithromycin 250 mg 06/16/25 09:00 06/17/25 07:53 Azithromycin 250 Mg Tab PO 06/20/25 08:59 250 mg QAM JAYSHREE Administration Benzonatate 100 mg 06/16/25 19:32 06/16/25 21:04 Benzonatate 100 Mg Capsule PO 07/16/25 19:31 100 mg TID PRN Administration Cough Famotidine 40 mg 06/15/25 09:00 06/17/25 07:53 Famotidine 40 Mg Tablet PO 07/15/25 08:59 40 mg DAILY JAYSHREE Administration Fexofenadine HCl 180 mg 06/15/25 09:00 06/17/25 07:52 Fexofenadine Hcl 180 Mg Tab PO 07/15/25 08:59 180 mg DAILY JAYSHREE Administration Fluticasone/Vilanterol 1 puffs 06/15/25 09:00 06/17/25 07:51 Fluticasone/Vilanterol 100/25mcg 14 Puffs/Inhaler INH 07/15/25 08:59 1 puffs DAILY JAYSHREE Administration Guaifenesin 600 mg 06/15/25 14:00 06/17/25 07:53 Guaifenesin 600 Mg Tabcr PO 07/15/25 13:59 600 mg Q12 JAYSHREE Administration Hydromorphone HCl 2 mg 06/15/25 01:45 06/17/25 05:43 Hydromorphone Hcl 2 Mg Tab PO 06/29/25 01:44 2 mg QID PRN Administration Pain Ceftriaxone Sodium 2,000 mg in 50 mls @ 100 mls/hr 06/15/25 22:00 06/16/25 21:40 Rocephin IV 06/20/25 21:59 Infused Q24H JAYSHREE Infusion Ipratropium [place] 0.5 mg 06/15/25 07:00 06/17/25 10:53 Ipratropium [place] Neb Soln 0.02% 0.5mg/2.5ml Vial INH 07/15/25 06:59 0.5 mg QIDR JAYSHREE Administration Levalbuterol HCl 1.25 mg 06/15/25 07:00 06/17/25 10:53 Levalbuterol 1.25 Mg/3 Ml Neb NEB 07/15/25 06:59 1.25 mg QIDR JAYSHREE Administration Levothyroxine Sodium 100 mcg 06/15/25 06:30 06/17/25 05:41 Levothyroxine Sodium 100 Mcg Tablet PO 07/15/25 06:29 100 mcg DAILYBB JAYSHREE Administration Metoprolol Succinate 25 mg 06/15/25 09:00 06/17/25 07:52 Metoprolol Succ 25mg Ext Rel Tab PO 07/15/25 08:59 25 mg BID JAYSHREE Administration Midodrine 5 mg 06/15/25 08:00 06/17/25 07:54 Midodrine Hcl 2.5 Mg Tab PO 07/15/25 07:59 5 mg TIDM JAYSHREE Administration Montelukast Sodium 10 mg 06/15/25 09:00 06/17/25 07:52 Montelukast Sodium 10 Mg Tablet PO 07/15/25 08:59 10 mg QAM JAYSHREE Administration Oxybutynin Chloride 5 mg 06/15/25 09:00 06/17/25 07:54 Oxybutynin Chloride Xl 5 Mg Tabcr PO 07/15/25 08:59 5 mg QAM JAYSHREE Administration Pantoprazole Sodium 40 mg 06/15/25 09:00 06/17/25 07:53 Pantoprazole 40 Mg Tab PO 07/15/25 08:59 40 mg BID JAYSHREE Administration Phenazopyridine HCl 200 mg 06/15/25 01:33 06/17/25 07:56 Phenazopyridine Hcl 200 Mg Tab PO 07/15/25 01:32 200 mg TID PRN Administration BLADDER PAIN Prednisone 40 mg 06/16/25 09:00 06/17/25 07:52 Prednisone 20 Mg Tab PO 06/20/25 08:59 40 mg DAILY JAYSHREE Administration Sucralfate 1 gm 06/15/25 07:30 06/17/25 07:54 Sucralfate 1 Gm Tab PO 07/15/25 07:29 1 gm ACHS JAYSHREE Administration Topiramate 100 mg 06/15/25 09:00 06/17/25 07:55 Topiramate 100 Mg Tab PO 07/15/25 08:59 100 mg BID JAYSHREE Administration
[2025-06-18 06:46] LABS: Hematocrit (blood only) 29.4 % (37.0-47.0); Hemoglobin 9.0 g/dL (12.0-16.0); Mean Corpuscular Hemoglobin 30.0 pg (25.0-34.0); Mean Corpuscular Volume 98.0 fL (80.0-100.0); Platelet Count 406 K/uL (130-400); RDW Standard Deviation 57.5 fL (36.4-46.3); Red Blood Count 3.00 M/uL (4.20-5.40); White Blood Count 9.75 K/ul (4.8-10.8)
[2025-06-18 07:40] LABS: Anion Gap 8.0 (3-11); Calcium 9.4 mg/dl (8.6-10.3); Carbon Dioxide 22.0 mmol/L (21-32); Chloride 112.0 mmol/L (98-107); Potassium 3.9 mmol/L (3.5-5.1); Sodium 142.0 mmol/L (136-145)
[2025-06-18 07:45] LABS: Blood Urea Nitrogen 18.0 mg/dl (6-23); Creatinine Clr Calc Pharmacy 46.9 ml/min; Glucose 101.0 mg/dl (70-99(Fasting))
--- NOTE | 2025-06-18 09:39 | Urology Progress Note ---
Date of Service June 18, 2025 Assessment & Plan (1) Complicated urinary tract infection: (2) Ureteral stent present: Plan: Follow-up of complicated UTI, ureteral stents present Patient has combination of respiratory and urinary tract infections Question of possible developing abscess within the left kidney She has been on antibiotics with azithromycin and ceftriaxone Subjectively improving Afebrile with stable vitals Lab work today reviewedcreatinine 1.01, no leukocytosis Urine culture did not grow out any specific bacteria Blood cultures showed no growth There was discussion regarding stent removal today if she remained stable Reviewed with attending hospitalistpatient is improving and stable for cystoscopy and bilateral stent removal today with Dr. Williamson Patient would like to proceed with procedure today Proceed to OR for cystoscopy and bilateral stent removal Continue scheduled antibiotics Keep n.p.o. for procedure Continue supportive care and medical management per hospital medicine team Plan Attending note: Patient independently assessed, examined, interviewed, and evaluated. Agree with note as above. Patient's vitals and labs were all reviewed. Pertinent values in the HPI and plan section. Imaging was reviewed interpreted by myself. Agree with read. Vitals were reviewed. Discussed findings extensively with patient and family. Reviewed with nurse practitioner as well as consulting physicians/team. Patient's complicated medical and surgical history was reviewed and summarized above. Patient's surgical, medical, social, and family history were all reviewed with pertinent values as above. Discussed patient's current diagnosis as well as concerns and issues. Reviewed different options moving forward. Discussed potential risks and benefits as well as possible options and concerns. Reviewed potential surgical options and interventions. Discussed potential issues and concerns related to intervention. Risk and benefits were discussed extensively with patient and any available family. Discussed potential risks related to anesthesia. Discussed risks of bleeding infection and injury. Patient with bilateral hydronephrosis. Stents do appear to be in position however have been in there for a number of months. Are needing to be removed at this point. Can check to see if draining well. Will plan to remove stent while in the hospital. Patient was preferring to have this procedure done under anesthesia. Will plan to move forward with this. Recent benefits were thoroughly reviewed. Risks and benefits discussed at length for procedure. These include bleeding, infection, injury to surrounding tissues or organs, and risks associated with anesthesia. Patient states understanding and agrees to proceed. Will sign consent and schedule. Plan for cystoscopy with possible bilateral retrograde pyelogram and stent removal Admission and Anticipated Discharge Date Admission Date: June 14, 2025 Subjective Patient seen and examined at bedside. She is awake and resting in bed, no distress. Subjectively improving. Voiding spontaneously. No fever or chills. She is currently NPO. Review of Systems Review of Systems: All systems reviewed & are unremarkable except as noted in HPI & below Constitutional: as per Subjective / HPI Genitourinary: as per Subjective / HPI Physical Exam Physical Exam: General: Alert in no acute distress. HEENT: Normocephalic Atraumatic. Inspection normal. Cranial Nerves 2-12 Grossly intact. Normal inspection of face. Normal inspection of neck. Psychologic: Normal affect. Respiratory: Nonlabored. No use of accessory muscles. No tachypnea or dyspnea. Cardiovascular: No tachycardia Skin: [place] and Dry. No rashes or visible lesions. Extremities/Lymphatics: No edema Abdomen: Soft Non-distended. No rebound or guarding. Constitutional: well developed and well nourished; no acute distress Respiratory: normal respiratory effort; no respiratory distress and no labored breathing Gastrointestinal (Abdomen): Inspection/Auscultation: abdomen normal to inspection Musculoskeletal: Head/Neck/Chest: normocephalic Neurologic: moves all extremities and awake Psychiatric: Orientation: alert and oriented x 3 Results & Data Vital Signs (Past 12 Hours) Vital Signs Temp Pulse Resp BP Pulse Ox O2 Del Method O2 Flow Rate 06/18/25 07:51 36.5 C 65 16 133/79 95 Room Air 06/18/25 07:29 64 16 96 Room Air 06/17/25 22:33 37.0 C 85 16 131/77 95 Nasal Cannula 2 PG Care Time/CCT Total # of Minutes Spent Total Time Spent with Patient: Total time spent is greater than 50% in coordination of care (as documented) at patient's floor/unit and/or counseling patient: Coding Level of Care Code 04316 SUB INP/OBS CARE 2/35MIN Diagnoses Complicated urinary tract infection N39.0 Ureteral stent present Z96.0
[2025-06-18] MEDS ORDERED: MIDAZOLAM HCL 1 MG/ML 2ML VIAL ONE (10:47)
--- NOTE | 2025-06-18 10:48 | Anesthesiology Consultation ---
Date of Service June 18, 2025 Assessment & Plan (1) Encounter for pre-operative examination: Chart Review Chart Review: Acceptable Risk for Surgery and Patient NOT seen in Pre Admission Testing Consults Requested none History Surgery Operation Date: 06/18/25 08:50 Proposed Procedures p Cystoscopy, Bilateral Stent Removal - Dex Williamson, Height/Weight Height: 5 ft 4 in Weight: 52.8 kg Allergies Allergy/AdvReac Type Severity Reaction Status Date / Time bee venom protein (honey bee) Allergy Severe ANAPHYLAXIS Verified 06/15/25 07:16 coconut Allergy Severe RASH; SOB Verified 06/15/25 07:16 gluten Allergy Severe CELIAC'S Verified 06/15/25 07:16 latex Allergy Severe Anaphylaxis Verified 06/15/25 07:16 Penicillins Allergy Severe Anaphylaxis Verified 06/15/25 07:16 Sulfa (Sulfonamide Allergy Severe Anaphylaxis Verified 06/15/25 07:16 Antibiotics) ROBER Inhibitors Allergy Intermediate RASH/TACHYC Verified 06/15/25 07:16 ARDIA cefaclor Allergy Intermediate CECLOR--RASH/UPSET Verified 06/15/25 07:16 STOMACH egg Allergy Intermediate RASH & Verified 06/15/25 07:16 Bloating Influenza Virus Vaccines Allergy Intermediate rash and Verified 06/15/25 07:16 bloating tetracycline Allergy Intermediate NAUSEA/VOMI Verified 06/15/25 07:16 TING/RASH Tetracyclines Allergy Intermediate RASH/NAUSEA Verified 06/15/25 07:16 /VOMITING Quinolones Allergy Unknown ALLERGY TO Verified 06/15/25 07:16 AVELOX ,CAN TAKE CIPRO OR LEVAQUIN W/O RXN Beta-Blockers AdvReac Intermediate intolerance Verified 06/15/25 07:16 (Beta-Adrenergic Bloc as per records lactose AdvReac Intermediate BLOATING; Verified 06/15/25 07:16 DIARRHEA; VOMITING dextran sulfate AdvReac Unknown TOLERATED Verified 06/15/25 07:16 VENOFER 04/2022 Medications Home Medications Medication Instructions Recorded Confirmed Last Taken aspirin 81 mg tablet,delayed 81 mg PO QAM 09/14/24 05/22/25 05/05/25 release atorvastatin 20 mg tablet 20 mg PO HS 09/14/24 05/22/25 05/04/25 fexofenadine 180 mg tablet 180 mg PO QAM 09/14/24 05/22/25 05/05/25 fluticasone 250 mcg-salmeterol 50 1 inh inhalation AMHS 09/14/24 05/22/25 05/05/25 mcg/dose blistr powdr for am inhalation (Advair Diskus) ipratropium 20 mcg-albuterol 100 1 puff inhalation QID PRN 09/14/24 05/22/25 03/07/25 12:00 mcg/actuation mist for inhalation Shortness Of Breath Or Wheezing (Combivent Respimat) montelukast 10 mg tablet 10 mg PO HS 09/14/24 05/22/25 05/04/25 multivitamin 1 tab PO QAM 09/14/24 05/22/25 05/05/25 rabeprazole 20 mg tablet,delayed 40 mg PO BID 09/14/24 05/22/25 05/05/25 release (AcipHex) am topiramate 100 mg tablet 100 mg PO BID 09/14/24 05/22/25 05/05/25 am CPAP Machine 09/15/24 05/05/25 Unknown amitriptyline 75 mg tablet 75 mg PO HS 09/15/24 05/22/25 05/04/25 azelastine 137 mcg (0.1 %) nasal 1 spray intranasal BID 09/15/24 05/22/25 05/05/25 spray am levalbuterol HCl 1.25 mg/3 mL 1.25 mg inhalation .Q4-6H PRN 09/15/24 05/22/25 03/27/25 solution for nebulization Shortness Of Breath Or Wheezing ondansetron 4 mg disintegrating 4 mg PO Q8H PRN Nausea And Vomiting 09/15/24 05/22/25 03/07/25 08:00 tablet polyethylene glycol 3350 17 gram 17 g PO QAM 09/15/24 05/22/25 05/05/25 oral powder packet (Miralax) epinephrine 0.3 mg/0.3 mL 0.3 mg subcut UD PRN Anaphylaxis 03/11/25 05/22/25 Unknown injection, auto-injector benzonatate 100 mg capsule 100 mg PO TID PRN Cough 05/05/25 05/22/25 Unknown ergocalciferol (vitamin D2) 1,250 1,250 mcg PO WK 11/01/25 11/18/25 10/27/25 mcg (50,000 unit) capsule oxybutynin chloride 5 mg 5 mg PO QAM 05/05/25 05/22/25 05/05/25 tablet,extended release 24 hr phenazopyridine 200 mg tablet 200 mg PO TID PRN as directed 05/05/25 05/22/25 Unknown cimetidine 400 mg tablet 400 mg PO BID 05/22/25 05/22/25 Unknown dexamethasone 2 mg tablet 2 mg PO DAILY #1 tab 05/22/25 05/22/25 Unknown folic acid 1 mg tablet 2 mg PO DAILY 05/22/25 05/22/25 Unknown hyoscyamine sulfate 0.375 mg 0.375 mg PO Q6H PRN Abdominal Pain 05/22/25 05/22/25 Unknown tablet,extended release,12 hr levothyroxine 100 mcg capsule 100 mcg PO DAILY 05/22/25 05/22/25 Unknown metoprolol succinate 25 mg 25 mg PO DAILY 05/22/25 Unknown tablet,extended release 24 hr midodrine 5 mg tablet 5 mg PO TID 05/22/25 Unknown sucralfate 1 gram tablet 1 g PO QID 05/22/25 05/22/25 Unknown amitriptyline 75 mg tablet 75 mg PO HS 06/14/25 06/14/25 06/13/25 atorvastatin 20 mg tablet 20 mg PO QAM 06/14/25 06/14/25 06/14/25 azelastine 137 mcg (0.1 %) nasal 1 spray intranasal BID 06/14/25 06/14/25 06/14/25 08:00 spray cimetidine 400 mg tablet 400 mg PO BID 06/14/25 06/14/25 06/14/25 08:00 epinephrine 0.3 mg/0.3 mL 0.3 mg IM DIRECTED PRN Allergic 06/14/25 06/14/25 Unknown injection, auto-injector (EpiPen) Reaction fexofenadine 180 mg tablet 180 mg PO DAILY 06/14/25 06/14/25 06/14/25 fluticasone 250 mcg-salmeterol 50 1 inh inhalation DAILY 06/14/25 06/14/25 06/14/25 mcg/dose blistr powdr for inhalation (Advair Diskus) hyoscyamine sulfate 0.375 mg 0.375 mg PO Q6H PRN ABD PAIN 06/14/25 06/14/25 Unknown tablet,extended release,12 hr ipratropium 20 mcg-albuterol 100 1 puff inhalation QID PRN NEEDED 06/14/25 06/14/25 Unknown mcg/actuation mist for inhalation (Combivent Respimat) levalbuterol HCl 1.25 mg/3 mL 1.25 mg inhalation QID PRN 06/14/25 06/14/25 Unknown solution for nebulization Shortness Of Breath Or Wheezing levothyroxine 100 mcg tablet 100 mcg PO DAILYBB 06/14/25 06/14/25 06/14/25 metoprolol succinate 25 mg 25 mg PO BID 06/14/25 06/14/25 06/14/25 08:00 tablet,extended release 24 hr midodrine 5 mg tablet 5 mg PO TID 06/14/25 06/14/25 06/14/25 08:00 montelukast 10 mg tablet 10 mg PO QAM 06/14/25 06/14/25 06/14/25 ondansetron 4 mg disintegrating 4 mg PO Q8H PRN NAUSEA/VOMITING 06/14/25 06/14/25 Unknown tablet oxybutynin chloride 5 mg 5 mg PO QAM 06/14/25 06/14/25 06/14/25 tablet,extended release 24 hr phenazopyridine 200 mg tablet 200 mg PO TID PRN BLADDER PAIN 06/14/25 06/14/25 Unknown rabeprazole 20 mg tablet,delayed 40 mg PO BID 06/14/25 06/14/25 06/14/25 08:00 release sucralfate 1 gram tablet (Carafate) 1 g PO ACHS 06/14/25 06/14/25 06/14/25 12:00 topiramate 100 mg tablet 100 mg PO BID 06/14/25 06/14/25 06/14/25 08:00 Active Medications Generic Name Dose Route Start Last Admin Trade Name Freq PRN Reason Stop Dose Admin Amitriptyline HCl 75 mg 06/15/25 21:00 06/17/25 20:36 Amitriptyline Hcl 25 Mg Tab PO 07/15/25 20:59 75 mg HS JAYSHREE Administration Atorvastatin Calcium 20 mg 06/15/25 09:00 06/18/25 09:08 Atorvastatin 20 Mg Tab PO 07/15/25 08:59 20 mg QAM JAYSHREE Administration Azelastine HCl 1 sprays 06/15/25 09:00 06/18/25 09:09 Azelastine Hcl 0.1% Nasal 200 Sprays/27,400 Mcg Btl NA 07/15/25 08:59 1 sprays BID JAYSHREE Administration Azithromycin 250 mg 06/16/25 09:00 06/18/25 09:08 Azithromycin 250 Mg Tab PO 06/20/25 08:59 250 mg QAM JAYSHREE Administration Benzonatate 100 mg 06/16/25 19:32 06/16/25 21:04 Benzonatate 100 Mg Capsule PO 07/16/25 19:31 100 mg TID PRN Administration Cough Famotidine 40 mg 06/15/25 09:00 06/18/25 09:06 Famotidine 40 Mg Tablet PO 07/15/25 08:59 40 mg DAILY JAYSHREE Administration Fexofenadine HCl 180 mg 06/15/25 09:00 06/18/25 09:07 Fexofenadine Hcl 180 Mg Tab PO 07/15/25 08:59 180 mg DAILY JAYSHREE Administration Fluticasone/Vilanterol 1 puffs 06/15/25 09:00 06/18/25 09:09 Fluticasone/Vilanterol 100/25mcg 14 Puffs/Inhaler INH 07/15/25 08:59 1 puffs DAILY JAYSHREE Administration Guaifenesin 600 mg 06/15/25 14:00 06/18/25 09:06 Guaifenesin 600 Mg Tabcr PO 07/15/25 13:59 600 mg Q12 JAYSHREE Administration Hydrocodone Bit/Homatropine Methylb 5 ml 06/17/25 09:30 06/17/25 20:44 Hydrocodone/Homatropine Syrup 5mg/1.5mg 5ml Udp PO 07/01/25 09:29 5 ml Q8H PRN Administration Cough Hydromorphone HCl 2 mg 06/15/25 01:45 06/18/25 10:14 Hydromorphone Hcl 2 Mg Tab PO 06/29/25 01:44 2 mg QID PRN Administration Pain Ceftriaxone Sodium 2,000 mg in 50 mls @ 100 mls/hr 06/15/25 22:00 06/17/25 22:06 Rocephin IV 06/20/25 21:59 Infused Q24H JAYSHREE Infusion Ipratropium [place] 0.5 mg 06/15/25 07:00 06/18/25 07:29 Ipratropium [place] Neb Soln 0.02% 0.5mg/2.5ml Vial INH 07/15/25 06:59 0.5 mg QIDR JAYSHREE Administration Levalbuterol HCl 1.25 mg 06/15/25 07:00 06/18/25 07:29 Levalbuterol 1.25 Mg/3 Ml Neb NEB 07/15/25 06:59 1.25 mg QIDR JAYSHREE Administration Levothyroxine Sodium 100 mcg 06/15/25 06:30 06/18/25 05:31 Levothyroxine Sodium 100 Mcg Tablet PO 07/15/25 06:29 100 mcg DAILYBB JAYSHREE Administration Metoprolol Succinate 25 mg 06/15/25 09:00 06/18/25 09:06 Metoprolol Succ 25mg Ext Rel Tab PO 07/15/25 08:59 25 mg BID JAYSHREE Administration Midodrine 5 mg 06/15/25 08:00 06/18/25 09:05 Midodrine Hcl 2.5 Mg Tab PO 07/15/25 07:59 5 mg TIDM JAYSHREE Administration Montelukast Sodium 10 mg 06/15/25 09:00 06/18/25 09:08 Montelukast Sodium 10 Mg Tablet PO 07/15/25 08:59 10 mg QAM JAYSHREE Administration Oxybutynin Chloride 5 mg 06/15/25 09:00 06/18/25 09:07 Oxybutynin Chloride Xl 5 Mg Tabcr PO 07/15/25 08:59 5 mg QAM JAYSHREE Administration Pantoprazole Sodium 40 mg 06/15/25 09:00 06/18/25 09:07 Pantoprazole 40 Mg Tab PO 07/15/25 08:59 40 mg BID JAYSHREE Administration Phenazopyridine HCl 200 mg 06/15/25 01:33 06/17/25 07:56 Phenazopyridine Hcl 200 Mg Tab PO 07/15/25 01:32 200 mg TID PRN Administration BLADDER PAIN Prednisone 40 mg 06/16/25 09:00 06/18/25 09:07 Prednisone 20 Mg Tab PO 06/20/25 08:59 40 mg DAILY JAYSHREE Administration Sucralfate 1 gm 06/15/25 07:30 06/18/25 09:06 Sucralfate 1 Gm Tab PO 07/15/25 07:29 1 gm ACHS JAYSHREE Administration Topiramate 100 mg 06/15/25 09:00 06/18/25 09:08 Topiramate 100 Mg Tab PO 07/15/25 08:59 100 mg BID JAYSHREE Administration NPO Date Last Intake of Fluids: 06/18/25 Time Last Intake of Fluids: 08:30 Last Intake of Fluids Comment: sip of water w/meds Date Last Intake of Solids: 06/17/25 Time Last Intake of Solids: 22:30 Past Medical History Medical History Duodenal ulcer Flank pain Acute UTI (urinary tract infection) Elevated troponin NSVT (nonsustained ventricular tachycardia) - hx of nonsustained VT (isolated run on Zio without associated symptoms per cardio); intolerance to beta blockers Renal cyst per medical record, pt unsure Depression Port-A-Cath in place Bilateral hydronephrosis Chronic kidney disease stage 3 or 4 - follows with [facility] Nephrology Sari fish Hx of gastric ulcer Chronic gastritis GERD (gastroesophageal reflux disease) Migraines Chronic nausea Seasonal allergies Hypothyroidism Paroxysmal A-fib - follows with Dr. Aguirre, takes asa daily (not anticoagulated due to anemia and fall risk per cardio records ) - patient referred at last cardio appt 10/2024 for evaluation for left appendage occluder device Celiac disease Hx of renal calculi no surgical intervention needed Poor intravenous access PSVT (paroxysmal supraventricular tachycardia) - no current issues per patient Hx MRSA infection 1999 dx nose septum wound 2019 dx in lungs Gastroparesis IBS (irritable bowel syndrome) Dyslipidemia CHARLES (iron deficiency anemia) History of COVID-19 has had ~5 times - last had ~early 2023, no hospitalization. Orthostatic hypotension Follows with [facility]) cardiology On midodrine Chronic anemia frequent iron and blood transfusions. Hypertension hx --> pt reports she is being treated for hypotension Adrenal cyst monitoring unchanged per 2024 imaging; benign per PCP Chronic back pain Degenerative disc disease Osteoarthritis Anxiety Mitral valve prolapse follows with Dr Aguirre Narcolepsy Chronic obstructive pulmonary disease uncontrolled, uses inhalers daily Sleep apnea CPAP + 2lpm of oxygen Ms Hackett is a 64 year old woman with PMHx significant for valvular heart disease (moderate TR and mild MR), h/o idiopathic cardiac arrest/VT, PAF (not on anticoagulation due to fall risk and anemia as per records), orthostatic hypotension on midodrine, hypertension, hyperlipidemia with h/o statin intolerance, asthma/COPD, CYNTHIA/narcolepsy on CPAP, urolithiasis, hydronephrosis, celiac disease, PUD/GERD, irritable bowel syndrome, pancreas divisum, chronic anemia (baseline hemoglobin of 10-11), left adrenal tumor as per records, hypothyroidism, RLS, endometriosis/PCOS, h/o MRSA and migraines admitted for evaluation of worsening cough and dysuria. Past Family History Family History Other No family history of adverse response to anesthesia Past Surgical History Surgical History H/O insertion of central venous access port power port placed due to poor IV access + frequent blood draws/iron/blood transfusions S/P spinal fusion C1 through L3 or L4 (~2021 at [facility]) History of cardioversion ~2019 History of cardiac radiofrequency ablation ~2014 [facility] History of bronchoscopy in the S/P trigger finger release right hand History of ankle surgery bilateral ankle repair with hardware H/O hand surgery with hardware (left) S/P GLENNY-BSO S/P surgery on nasal septum "collapsed septum" s/p post op infection that "ate away the septum" S/P nasal surgery multiple Hx of cholecystectomy History of arthroscopic knee surgery left Hx of cardiac cath "2009 - normal coronaries" (pt denies) History of esophagogastroduodenoscopy (EGD) History of colonoscopy History of dilatation and curettage Social History Smoking Status: Never smoker Do You Dip or Chew Tobacco: No Hx Alcohol Use: No Hx Substance Use: No substance use type: does not use Physical Exam Vital Signs Last Vital Signs Temp 37.2 C 06/18/25 10:31 Pulse 73 06/18/25 10:31 Resp 18 06/18/25 10:31 BP 149/89 H 06/18/25 10:31 Pulse Ox 98 06/18/25 10:31 O2 Del Method Room Air 06/18/25 10:31 O2 Flow Rate 2 06/17/25 22:33 Testing Laboratory Results 06/18/25 06:20 06/18/25 06:20 Urine Color Yellow 06/14/25 19:45 Urine Appearance Turbid (Clear) A 06/14/25 19:45 Urine pH 5.5 (4.5-7.5) 06/14/25 19:45 Ur Specific [place] 1.011 (1.000-1.030) 06/14/25 19:45 Urine Protein 1+ (Negative) H 06/14/25 19:45 Urine Glucose (UA) Negative (Negative) 06/14/25 19:45 Urine Ketones Negative (Negative) 06/14/25 19:45 Urine Nitrite Negative (Negative) 06/14/25 19:45 Ur Leukocyte Esterase 3+ (Negative) H 06/14/25 19:45 Urine WBC (Auto) >50 /hpf (0-5) H 06/14/25 19:45 Urine RBC (Auto) >20 /hpf (0-2) H 06/14/25 19:45 U Hyaline Cast (Auto) 0-2 /lpf (0-2) 06/14/25 19:45 U Epithel Cells (Auto) 3-5 /hpf (0-2) H 06/14/25 19:45 Urine Bacteria (Auto) 2+ (None Seen) H 06/14/25 19:45 06/17/25 17:25 Gram Stain - Final Sputum, Expectorated Sputum Culture - Preliminary Light normal aguila present, final report to follow. 06/14/25 21:10 Aerobic Blood Culture - Preliminary Blood No growth in Aerobic bottle after 48 hours. Anaerobic Blood Culture - Preliminary No growth in Anaerobic bottle after 48 hours. 06/14/25 21:00 Aerobic Blood Culture - Preliminary Blood No growth in Aerobic bottle after 48 hours. Anaerobic Blood Culture - Preliminary No growth in Anaerobic bottle after 48 hours. 06/14/25 19:45 Urine Culture - Final Urine,Clean Catch Three types of organisms present, all high counts probable skin aguila. No further identifications or sensitivities to follow. Electrocardiogram Date: 06/14/25 Chest X-Ray DICTATED BY: Toni Sawyer MD Test Reason : Blood Pressure : */* mmHG Vent. Rate : 98 BPM Atrial Rate : 98 BPM P-R Int : 146 ms QRS Dur : 54 ms QT Int : 344 ms P-R-T Axes : 36 -20 11 degrees QTcB Int : 439 ms Normal sinus rhythm Minimal voltage criteria for LVH, may be normal variant ( R in aVL ) Inferior infarct , age undetermined Anterior infarct , age undetermined Abnormal ECG When compared with ECG of 05-May-2025 19:09, Anterior infarct is now Present Inferior infarct is now Present Confirmed by Toni Sawyer ([id number]) on 06/15/2025 9:51:15 AM Echocardiogram echo mar 2025: ef 55%
[2025-06-18] MEDS ORDERED: ATROPINE SULFATE 0.1 MG/ML 10ML SYR IV PRN (10:52)
[2025-06-18] MEDS ORDERED: ONDANSETRON INJ 2 MG/ML 2 ML VIAL IV PRN (10:52)
--- NOTE | 2025-06-18 11:24 | Operative Report ---
PG Post Operative Report Pre & Post Diagnosis Operation Date: 06/18/25 08:50 Pre-Op Diagnosis: Complicated urinary tract infection Post-Op Diagnosis: Complicated urinary tract infection I identified the patient and participated in the time-out.: Yes Procedure Operation Date: 06/18/25 08:50 Actual Procedures Cystoscopy with Bilateral Retrograde Pyelograms and Bilateral Stent Removal Left ureteroscopy - Dex Williamson DO Surgeon Dex Williamson, II, DO Waiter/Waitress Tourist Class None Estimated Blood Loss 1 Findings Consistent with Post-Op Diagnosis Significant debris on the stents bilaterally appearing to be possibly obstructed. Bilateral hydronephrosis from retained stents. Significant narrowing noted in the UPJ on the left side with high insertion of the ureter. Ureteroscopy of the area did show a patent lumen however a significant narrowing and tortuosity secondary to the hydronephrosis as well as the known UPJ obstruction on that side. As it did appear to have some drainage without complete obstruction it was decided to maintain no stent to allow healing and drainage Specimens None Drains None Anesthesia Type General Complications none Disposition Disposition: Recovery Room Indications Patient with bothersome obstruction and hydronephrosis with retained stents. Risks and benefits discussed at length. Description of Procedure Patient was consented and brought back to the operating room. Patient was placed under anesthesia in the supine position and moved to the dorsal lithotomy position. Patient was prepped and draped in the regular sterile fashion. A time out was completed identifying the correct patient and procedure. A 30degree Cystoscope was placed into the bladder and the entire bladder was examined. The UO's were identified. The stent on each side was found to be covered in debris and appeared to be possibly partially obstructed. The stent on each side was able to be grasped and partially removed. A wire was then able to be placed. Retrograde pyelograms were then completed. The UO was cannulized with a catheter and a retrograde pyelogram was completed. The right did have a hydronephrotic appearance however did appear to be draining without major issue. On the left side there was a significant narrowing still seen within the ureter. There was a question of whether it had strictured down more significantly again. Because of this it was decided to remove the wire on the right side and proceed with ureteroscopy on the left to assess the ureter. A wire was then placed. The flexible ureteroscope was taken into the ureter. The entire ureter and UPJ were examined. The UPJ was found to be significantly narrowed also due to high insertion and the hydronephrosis there was significant tortuosity. The lumen did appear to be patent however. The scope was able to bypassed it without needing to dilate. The renal pelvis was found to be significantly hydronephrotic. Additionally there appeared to be some debris. No stones were identified. Because of the high insertion and the narrowed UPJ Limited assessment of the renal pelvis was completed to avoid excess manipulation with recent infection. The entire area was once again examined. No residual areas of concern were noted. Contrast was placed through the scope for a pyelogram. The entire ureter was examined as the scope was slowly removed. No obstructions or other areas of concern were noted. Without signs of a severe obstruction it was decided to hold off on replacement of the stent as they were causing considerable issues for the patient with discomfort and bother. The bladder was emptied. The scope was removed. The patient was cleaned, aroused from anesthesia, and transferred to the pacu in stable condition having tolerated the procedure well with no complications. I was present and participated in all aspects of the procedure. The patient will be monitored in the PACU until transferred. Will likely need repeat imaging in 1 to 2 months. Can follow-up with EVELIN's in office I attest to the content of the Intraoperative Record and any orders documented therein. Any exceptions are noted below.
--- NOTE | 2025-06-18 11:52 | Fluoroscopy Report ---
INTRAOPERATIVE RADIOGRAPHS CLINICAL HISTORY: Bilateral stent removal. Bilateral retrograde pyelogram. Fluoro time: 80 seconds Ka,r: 10.88 mGy FINDINGS: 2 spot fluoroscopic views of the upper abdomen are correlated with abdominal CT dated 06/14. Contrast within the renal collecting systems shows severe bilateral hydronephrosis. IMPRESSION: Intraoperative retrograde pyelogram images as above. Electronically signed by: Demetrius Bruce M.D. 06/18/2025 11:51 AM
--- NOTE | 2025-06-18 12:51 | Anesthesiology Progress Note ---
Date of Service June 18, 2025 Anesthesia Post Procedure Vital Signs Vital Signs: Temp Pulse Pulse Resp BP BP Pulse Ox 06/18/25 12:25 36.4 C L 84 18 133/80 91 06/18/25 11:54 36.7 C 80 18 119/67 95 06/18/25 11:40 36.2 C L 71 15 108/62 97 06/18/25 11:30 69 14 109/61 98 06/18/25 11:24 36.6 C 72 13 110/62 98 06/18/25 10:31 37.2 C 73 18 149/89 H 98 06/18/25 07:51 36.5 C 65 16 133/79 95 06/18/25 07:35 06/18/25 07:29 64 16 96 06/17/25 22:33 37.0 C 85 16 131/77 95 06/17/25 20:33 90 149/79 H 06/17/25 20:11 77 20 94 06/17/25 19:15 06/17/25 15:59 66 16 98 06/17/25 15:44 37.0 C 63 16 127/78 95 O2 Del Method O2 Flow Rate 06/18/25 12:25 Room Air 06/18/25 11:54 Room Air 06/18/25 11:40 Room Air 06/18/25 11:30 Oxymask 4 06/18/25 11:24 Oxymask 11 06/18/25 10:31 Room Air 06/18/25 07:51 Room Air 06/18/25 07:35 Room Air, Nasal Cannula 06/18/25 07:29 Room Air 06/17/25 22:33 Nasal Cannula 2 06/17/25 20:33 06/17/25 20:11 Room Air 06/17/25 19:15 Room Air 06/17/25 15:59 Room Air 06/17/25 15:44 Room Air Pain Intensity Abdomen: Pain Intensity: 8 Transfer of Care Handoff Completed per policy Notes Mental Status: alert / awake / arousable and participated in evaluation Patient Amnestic to Procedure: Yes Nausea / Vomiting: adequately controlled Pain: adequately controlled Airway Patency, RR, SpO2: stable & adequate BP & HR: stable & adequate Hydration State: stable & adequate Anesthetic Complications: no major complications apparent and Pt Satisfied with anesthetic care
--- NOTE | 2025-06-18 13:35 | Hospitalist Progress Note ---
Date of Service June 18, 2025 Assessment & Plan (1) Sepsis: Plan: Resolved (2) Community acquired pneumonia: (3) Hydroureteronephrosis: (4) Left renal mass: (5) Hypothyroidism: (6) Chronic obstructive pulmonary disease: (7) PAF (paroxysmal atrial fibrillation): Plan Patient is showing significant improvement. Communication with urology, from respiratory standpoint able to undergo urological procedure today. Reviewed operative note, removal bilateral ureteral stents. Continue IV antibiotics through today. Reevaluate labs in AM. Potentially transition to oral antibiotics tomorrow with planned discharge possible tomorrow provided uncomplicated postprocedure course. Continue other medications Repeat imaging of kidneys/urologic system in 1 to 2 months through urology. Admission and Anticipated Discharge Date Admission Date: June 14, 2025 Subjective Patient feeling significantly improved when compared to admission. Anticipating stent removal later today. No chest pain, no shortness of breath Physical Exam Physical Exam: Constitutional: Alert, nontoxic HEENT: Mucous membranes moist. Lungs: Good airflow, no wheezing CV: S1-S2, regular Abdomen: Soft, nontender, nondistended Extremities: No significant edema Neuro: No focal deficits Psych: Cooperative, normal mood Results & Data Results & Data Vital Signs (Past 12 Hours) Vital Signs Temp Pulse Pulse Pulse Resp BP BP 06/18/25 13:00 36.6 C 84 18 124/71 06/18/25 12:25 36.4 C L 84 18 133/80 06/18/25 11:54 36.7 C 80 18 119/67 06/18/25 11:40 36.2 C L 71 15 108/62 06/18/25 11:30 69 14 109/61 06/18/25 11:24 36.6 C 72 13 110/62 06/18/25 10:31 37.2 C 73 18 149/89 H 06/18/25 07:51 36.5 C 65 16 133/79 06/18/25 07:35 06/18/25 07:29 64 16 Pulse Ox O2 Del Method O2 Flow Rate 06/18/25 13:00 94 Room Air 06/18/25 12:25 91 Room Air 06/18/25 11:54 95 Room Air 06/18/25 11:40 97 Room Air 06/18/25 11:30 98 Oxymask 4 06/18/25 11:24 98 Oxymask 11 06/18/25 10:31 98 Room Air 06/18/25 07:51 95 Room Air 06/18/25 07:35 Room Air, Nasal Cannula 06/18/25 07:29 96 Room Air Diagnostic Findings Reviewed imaging, laboratory and diagnostic studies. Pertinent findings as below. WBC 9.7 Hemoglobin 9.0 Electrolytes stable Creatinine 1.0 No growth in either blood or urine cultures
[2025-06-18] MEDS: ACETAMINOPHEN 325 MG TAB PO PRN (16:23)
[2025-06-19 06:38] LABS: Hematocrit (blood only) 29.2 % (37.0-47.0); Hemoglobin 8.9 g/dL (12.0-16.0); Mean Corpuscular Hemoglobin 29.6 pg (25.0-34.0); Mean Corpuscular Volume 97.0 fL (80.0-100.0); Platelet Count 411 K/uL (130-400); RDW Standard Deviation 56.8 fL (36.4-46.3); Red Blood Count 3.01 M/uL (4.20-5.40); White Blood Count 6.08 K/ul (4.8-10.8)
[2025-06-19 07:00] LABS: Anion Gap 8.0 (3-11); Blood Urea Nitrogen 22.0 mg/dl (6-23); Calcium 9.4 mg/dl (8.6-10.3); Carbon Dioxide 23.0 mmol/L (21-32); Chloride 110.0 mmol/L (98-107); Creatinine Clr Calc Pharmacy 47.4 ml/min; Glucose 106.0 mg/dl (70-99(Fasting)); Magnesium 1.9 mg/dl (1.7-2.4); Potassium 3.9 mmol/L (3.5-5.1); Sodium 141.0 mmol/L (136-145)
--- NOTE | 2025-06-19 07:36 | Urology Progress Note ---
Date of Service June 19, 2025 Assessment & Plan (1) Complicated urinary tract infection: (2) Ureteral stent present: Plan: Follow-up of complicated UTI, bilateral ureteral stents Patient has combination of respiratory and urinary tract infections Question of possible developing abscess within the left kidney She has been on antibiotics with azithromycin and ceftriaxone POD #1 cystoscopy and bilateral stent removal with Dr. Williamson She is afebrile with stable vitals Lab work today reviewedcreatinine 1.00, no leukocytosis Urine culture did not grow out any specific bacteria Blood cultures showed no growth Continue with antibiotics, plan to transition to PO upon discharge when medically stable Will arrange follow-up in office in 1 to 2 months with repeat imaging will sign off, please contact our service with any additional questions or concerns Admission and Anticipated Discharge Date Admission Date: June 14, 2025 Subjective Patient seen and examined at bedside this morning. She is resting in bed, no distress. No issues overnight. Subjectively improving, reports mild/minimal flank discomfort since stent removal. Voiding spontaneously. No fever or chills. Review of Systems Constitutional: as per Subjective / HPI Genitourinary: as per Subjective / HPI Physical Exam Constitutional: well developed and well nourished; no acute distress Respiratory: normal respiratory effort; no respiratory distress and no labored breathing Gastrointestinal (Abdomen): Inspection/Auscultation: abdomen normal to inspection Musculoskeletal: Head/Neck/Chest: normocephalic Neurologic: moves all extremities and awake Psychiatric: Orientation: alert and oriented x 3 Results & Data Vital Signs (Past 12 Hours) Vital Signs Temp Pulse Resp BP BP Pulse Ox O2 Del Method 06/19/25 07:30 36.9 C 63 16 145/81 H 97 Room Air 06/19/25 07:07 72 16 98 Room Air 06/19/25 04:15 36.6 C 64 16 141/77 H 95 Room Air 06/18/25 23:55 36.6 C 63 16 132/76 97 Room Air 06/18/25 20:12 36.8 C 69 16 155/93 H 97 Room Air 06/18/25 20:11 62 18 98 Room Air 06/18/25 19:50 Room Air PG Care Time/CCT Total # of Minutes Spent Total Time Spent with Patient: Total time spent is greater than 50% in coordination of care (as documented) at patient's floor/unit and/or counseling patient: Coding Level of Care Code 70975 SUB INP/OBS CARE 07/29MIN Diagnoses Complicated urinary tract infection N39.0 Ureteral stent present Z96.0
[2025-06-19] MEDS: CEFDINIR 300 MG CAP PO SCH (09:14)
--- NOTE | 2025-06-19 09:58 | Discharge Summary ---
Discharge Summary Date of Service June 19, 2025 Principal Dx & Hospital Course #1 = Principal Diagnosis (1) Sepsis: Resolved (2) Community acquired pneumonia: (3) Hydroureteronephrosis: (4) Left renal mass: (5) Hypothyroidism: (6) Chronic obstructive pulmonary disease: (7) PAF (paroxysmal atrial fibrillation): Plan Patient 65-year-old female presented to the emergency room with increasing cough and some shortness of breath. Patient also complaining of some lower abdominal pain and back pain. She does have known bilateral hydronephrosis and ureteral stents in place. In the emergency room workup was concerning for possible pneumonia and urinary tract infection. Patient was admitted to the hospital. She was treated for community-acquired pneumonia with ceftriaxone and Zithromax. She was given symptomatic care for her cough. Urology consultation was obtained due to the fact that the concern of possible UTI, bilateral ureteral stents in place and also a mass noted on the left kidney that was concerning for possible developing abscess. Patient was evaluated by urology. Did not feel as though this mass was drainable or needed any additional intervention. They recommended ongoing antibiotics. Patient's symptoms steadily improved. Her shortness of breath and cough improved. Her WBCs normalized. Ongoing evaluation by urology felt as though she could have the ureteral stents removed. Patient underwent urological procedure to remove the stents on 06/18/2025. Postprocedure course was uneventful. Again laboratory studies stabilized. Had no fever. Patient was on room air. Urine culture Did not have a single organism growth. There was mixed growth with no sensitivities. Blood cultures showed no growth. Patient could be transition to oral antibiotics. She will follow-up with outpatient PCP and urology. Anticipate she will need reimaging of the left kidney to ensure that this mass is improving as directed by urology. Notes For Next Care Provider Follow-up with urology Consider imaging of kidney in approximately 2 to 4 weeks Medication Changes From Visit Omnicef Admission HPI Per Admitting Provider Patient has a previous [facility] account. (MR#: [id number]) History obtained from patient and records. Medical history is significant for history idiopathic cardiac arrest/VT, valvular heart disease (moderate TR, mild MR), PAF (not on anticoagulation due to fall risk and anemia as per records), orthostatic hypotension on midodrine, hypertension, hyperlipidemia/statin intolerance, asthma/COPD, CYNTHIA/narcolepsy on CPAP, urolithiasis, hydronephrosis status post stent, celiac disease, PUD/GERD, irritable bowel syndrome, pancreas divisum, chronic anemia (baseline hemoglobin of 8), left adrenal tumor as per records, hypothyroidism, RLS, endometriosis/PCOS, hx MRSA. Monthly admissions since March 2025. Recent confinement last month for UGIB EGD showed diffuse gastritis and celiac disease. Patient noted worsening cough symptoms productive of junky yellow/green sputum over the last few weeks. SOB and achy left-sided chest pain from coughing. Denies aspiration. Not sure about sick contacts. 3 days ago, patient noted achy lower abdominal pain and dysuria symptoms similar to UTI attack. No hematuria. Some nausea without emesis. Low-grade fever at home. Foul-smelling cloudy urine. Patient called [facility] urologist office asking for advice. Patient directed to ER for evaluation. IV ceftriaxone administered at the ER. MEDICAL HISTORY: As above. SURGICAL HISTORY: TAHBSO, cholecystectomy, appendectomy, ankle surgery, knee surgery, nasal reconstruction, sinus surgery, finger tendon sheath surgery, urologic procedure, laminectomy/spine surgery FAMILY HISTORY: Family history of unknown. Patient is adopted. PERSONAL/SOCIAL HISTORY: Nonsmoker. No chronic intake of inatke of ETOH. 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 Admission Exam Per Admitting Provider See H&P Discharge Exam Constitutional: Alert, nontoxic HEENT: Mucous membranes moist. Lungs: Clear to auscultation, decreased, no wheezes rales or rhonchi CV: S1-S2, regular Abdomen: Soft, nontender, nondistended Extremities: No significant edema Neuro: No focal deficits Psych: Cooperative, normal mood Updated Medication List Medication Instructions Recorded Confirmed Type aspirin 81 mg tablet,delayed 81 mg PO QAM 09/14/24 05/22/25 History release atorvastatin 20 mg tablet 20 mg PO HS 09/14/24 05/22/25 History fexofenadine 180 mg tablet 180 mg PO QAM 09/14/24 05/22/25 History fluticasone 250 mcg-salmeterol 50 1 inh inhalation AMHS 09/14/24 05/22/25 Histo ry mcg/dose blistr powdr for inhalation (Advair Diskus) ipratropium 20 mcg-albuterol 100 1 puff inhalation QID PRN 09/14/24 05/22/25 History mcg/actuation mist for inhalation Shortness Of Breath Or Wheezing (Combivent Respimat) montelukast 10 mg tablet 10 mg PO HS 09/14/24 05/22/25 History multivitamin 1 tab PO QAM 09/14/24 05/22/25 History rabeprazole 20 mg tablet,delayed 40 mg PO BID 09/14/24 05/22/25 History release (AcipHex) topiramate 100 mg tablet 100 mg PO BID 09/14/24 05/22/25 History CPAP Machine 09/15/24 05/05/25 History amitriptyline 75 mg tablet 75 mg PO HS 09/15/24 05/22/25 History azelastine 137 mcg (0.1 %) nasal 1 spray intranasal BID 09/15/24 05/22/25 History spray levalbuterol HCl 1.25 mg/3 mL 1.25 mg inhalation .Q4-6H PRN 09/15/24 05/22/25 History solution for nebulization Shortness Of Breath Or Wheezing ondansetron 4 mg disintegrating 4 mg PO Q8H PRN Nausea And Vomiting 09/15/24 05/22/25 History tablet polyethylene glycol 3350 17 gram 17 g PO QAM 09/15/24 05/22/25 History oral powder packet (Miralax) epinephrine 0.3 mg/0.3 mL 0.3 mg subcut UD PRN Anaphylaxis 03/11/25 05/22/25 History injection, auto-injector benzonatate 100 mg capsule 100 mg PO TID PRN Cough 05/05/25 05/22/25 History ergocalciferol (vitamin D2) 1,250 1,250 mcg PO WK 05/05/25 05/22/25 History mcg (50,000 unit) capsule oxybutynin chloride 5 mg 5 mg PO QAM 05/05/25 05/22/25 History tablet,extended release 24 hr phenazopyridine 200 mg tablet 200 mg PO TID PRN as directed 05/05/25 05/22/25 History cimetidine 400 mg tablet 400 mg PO BID 05/22/25 05/22/25 History dexamethasone 2 mg tablet 2 mg PO DAILY #1 tab 05/22/25 05/22/25 Rx folic acid 1 mg tablet 2 mg PO DAILY 05/22/25 05/22/25 History hyoscyamine sulfate 0.375 mg 0.375 mg PO Q6H PRN Abdominal Pain 05/22/25 05/22/25 History tablet,extended release,12 hr levothyroxine 100 mcg capsule 100 mcg PO DAILY 05/22/25 05/22/25 History metoprolol succinate 25 mg 25 mg PO DAILY 05/22/25 History tablet,extended release 24 hr midodrine 5 mg tablet 5 mg PO TID 05/22/25 History sucralfate 1 gram tablet 1 g PO QID 05/22/25 05/22/25 History amitriptyline 75 mg tablet 75 mg PO HS 06/14/25 06/14/25 History atorvastatin 20 mg tablet 20 mg PO QAM 06/14/25 06/14/25 History azelastine 137 mcg (0.1 %) nasal 1 spray intranasal BID 06/14/25 06/14/25 History spray cimetidine 400 mg tablet 400 mg PO BID 06/14/25 06/14/25 History epinephrine 0.3 mg/0.3 mL 0.3 mg IM DIRECTED PRN Allergic 06/14/25 06/14/25 History injection, auto-injector (EpiPen) Reaction fexofenadine 180 mg tablet 180 mg PO DAILY 06/14/25 06/14/25 History fluticasone 250 mcg-salmeterol 50 1 inh inhalation DAILY 06/14/25 06/14/25 History mcg/dose blistr powdr for inhalation (Advair Diskus) hyoscyamine sulfate 0.375 mg 0.375 mg PO Q6H PRN ABD PAIN 06/14/25 06/14/25 History tablet,extended release,12 hr ipratropium 20 mcg-albuterol 100 1 puff inhalation QID PRN NEEDED 06/14/25 06/14/25 History mcg/actuation mist for inhalation (Combivent Respimat) levalbuterol HCl 1.25 mg/3 mL 1.25 mg inhalation QID PRN 06/14/25 06/14/25 History solution for nebulization Shortness Of Breath Or Wheezing levothyroxine 100 mcg tablet 100 mcg PO DAILYBB 06/14/25 06/14/25 History metoprolol succinate 25 mg 25 mg PO BID 06/14/25 06/14/25 History tablet,extended release 24 hr midodrine 5 mg tablet 5 mg PO TID 06/14/25 06/14/25 History montelukast 10 mg tablet 10 mg PO QAM 06/14/25 06/14/25 History ondansetron 4 mg disintegrating 4 mg PO Q8H PRN NAUSEA/VOMITING 06/14/25 06/14/25 History tablet oxybutynin chloride 5 mg 5 mg PO QAM 06/14/25 06/14/25 History tablet,extended release 24 hr phenazopyridine 200 mg tablet 200 mg PO TID PRN BLADDER PAIN 06/14/25 06/14/25 History rabeprazole 20 mg tablet,delayed 40 mg PO BID 06/14/25 06/14/25 History release sucralfate 1 gram tablet (Carafate) 1 g PO ACHS 06/14/25 06/14/25 History topiramate 100 mg tablet 100 mg PO BID 06/14/25 06/14/25 History cefdinir 300 mg capsule 300 mg PO BID 10 days #20 caps 06/19/25 Rx Hospital Stay Data Consultations 06/14/25 23:50 ED Decision to Admit Stat 06/15/25 01:37 Consult Urology Routine Procedures Performed Operation Date: 06/18/25 08:50 Actual Procedures p Cystoscopy, Bilateral Retrograde pyelograms, Left Ureteroscopy, Bilateral Stent Removal(Bilateral) - Dex Williamson, Diagnostic Imagining Performed 06/14/25 20:30 CT abd pelvis IV con only Stat 06/15/25 01:36 CT chest diagnostic wo con Stat 06/18/25 FL retrograde includes kub Routine Reviewed imaging, laboratory and diagnostic studies. Pertinent findings as below. Urine culture growing 3 types of bacteria typical for skin aguila Blood cultures no growth WBC 6.0 Hemoglobin 8.9 Platelets 411 Electrolytes within normal range Creatinine 1.0 Glucose 106 Flu, COVID, RSV negative Pending Results Patient Have Any Pending Studies at Discharge: No Discharge Instructions Given to Patient (Per Discharging Provider) Follow-up with urology Recommend repeat imaging to follow renal mass Total Time Total Time Spent Total Time Spent (In Minutes): 26
[2025-06-19 10:58] VITALS: RESP 18
[2025-06-19 14:32] VITALS: BP 150/80; PULSE 81; TEMP 98.8; O2SAT 94
== END 2025-06-19 15:41 | disposition home or self-care (01) | DRG 871 ==
LOC: EDBD → ED 17:04 → MERGE 23:56 → SUATTDRO 23:56 → EDINP 23:56 → 3N 06-15 16:47